=== PATIENT | male | born 1975 | race Caucasian/White ===

== ENCOUNTER 2016-12-15 09:24 | Inpatient (IN) | payer OTHER ==
[~2016-12-15] VITALS: Ht 165.1 cm; Wt 108.5 kg
[~2016-12-15 09:24] MED LIST: AMLO-147 PO; ASPI-700 PO; ATOR80TA75 PO; CARV25TA79 PO; ERGO500037 PO; FURO20TA3 PO; LISI20TA11 PO; NCN500CCR PO; OMEG-135 PO; OXYC-209 PO; POTA8CAP PO; UDMOM PO
[2016-12-15] MEDS ORDERED: ONDANSETRON 4 MG INJ IV STA ×2 (09:40→12:19)
[2016-12-15] MEDS ORDERED: ACETAMINOPHEN 325 MG TAB PO STA (09:40)
[2016-12-15] MEDS ORDERED: CEFEPIME 2GM/50 ML (PMX) 50 ML IVPB STA (09:40)
[2016-12-15] MEDS ORDERED: SODIUM CHLORIDE 0.9% 1L BAG IV* STA (09:40)
[2016-12-15] MEDS ORDERED: VANCOMYCIN 1 GM (PMX) 250 ML IVPB ONE (10:00)
[2016-12-15 10:04] LABS: ADD SCAN DIFF NO
[2016-12-15 10:07] LABS: BASOPHILS % 0.3 % (0.0-2.0); EOSINOPHILS % 0.1 % (0.0-7.0); HEMATOCRIT 37.2 % (42.0-52.0); HEMOGLOBIN 12.9 g/dl (14.0-18.0); LYMPHOCYTES # 0.7 10^3/ul (0.8-2.9); LYMPHOCYTES % 7.1 % (15.0-51.0); MEAN CORPUSCULAR HEMOGLOBIN 27.7 pg (29.0-33.0); MEAN CORPUSCULAR HGB CONC 34.7 g/dl (32.0-37.0); MEAN CORPUSCULAR VOLUME 79.8 fl (82.0-101.0); MEAN PLATELET VOLUME 11.2 fl (7.4-10.4); MONOCYTE # 0.7 10^3/ul (0.3-0.9); MONOCYTES % 7.7 % (0.0-11.0); NEUTROPHIL # 7.7 10^3/ul (1.6-7.5); NEUTROPHILS % 84.5 % (39.0-77.0); PLATELET COUNT 201 10^3/UL (140-415); RED BLOOD COUNT 4.66 10^6/ul (4.70-6.10); RED CELL DISTRIBUTION WIDTH 12.6 % (11.5-14.5); WHITE BLOOD COUNT 9.1 10^3/ul (4.8-10.8)
--- NOTE | 2016-12-15 10:11 | RADRPT ---
PROCEDURE: XR Chest. CLINICAL INDICATION: cough TECHNIQUE: Single frontal view of the chest was obtained COMPARISON: 06/02/16 FINDINGS: The heart and mediastinum are within normal limits. There are patchy left perihilar and left lower lobe infiltrates. There is no pleural effusion or pneumothorax. RPTAT: AA IMPRESSION: Patchy left perihilar and left lower lobe infiltrates. .Cristino Dahl MD, MD Date Time Electronically viewed and signed by .Cristino Dahl MD, on 12/15/2016 10:11 .S/
[2016-12-15 10:17] LABS: ALBUMIN 2.5 g/dl (3.3-4.9)
[2016-12-15 10:20] LABS: ALBUMIN/GLOBULIN RATIO 0.78; BILIRUBIN,INDIRECT 0.6 mg/dl (0-1.1); BILIRUBIN,TOTAL 0.6 mg/dl (0.2-1.3); CALCIUM 7.8 mg/dl (8.4-10.2); CREATININE 1.42 mg/dl (0.61-1.24); TOTAL PROTEIN 5.7 g/dl (6.1-8.1)
[2016-12-15 10:24] LABS: POTASSIUM 2.5 mmol/L (3.5-5.1)
[2016-12-15 10:31] LABS: INR 0.97; PROTIME 12.9 Sec (12.2-14.2)
[2016-12-15 10:32] LABS: PARTIAL THROMBOPLASTIN TIME 48.4 Sec (25.0-35.0)
[2016-12-15 10:38] LABS: TROPONIN-I 0.163 ng/ml (0.00-0.12)
[2016-12-15] MEDS ORDERED: POTASSIUM CHLORIDE (SR) 20 MEQ TAB PO STA (10:38)
[2016-12-15] MEDS ORDERED: ONDANSETRON 4 MG INJ IV PRN ×2 (11:30→13:00)
[2016-12-15] MEDS ORDERED: ASPIRIN 325 MG TAB PO ONE (11:30)
[2016-12-15] MEDS ORDERED: ACETAMINOPHEN 325 MG TAB PO PRN (11:30)
[2016-12-15] MEDS ORDERED: morphine 4 MG/ML VIAL IV STA (12:19)
[2016-12-15] MEDS ORDERED: MAGNESIUM HYDROXIDE 30ML CUP PO PRN (13:00)
[2016-12-15] MEDS ORDERED: NACL 0.9% 3 ML SYG IV SCH (13:00)
[2016-12-15] MEDS ORDERED: HYDROCODONE/APAP (5/325) TAB PO PRN (13:00)
[2016-12-15] MEDS ORDERED: HYPOGLYCEMIA PROTOCOL when Glucose is <70 mg/dL or symptomatic <90 mg/dL. XX ONE (13:00)
[2016-12-15] MEDS ORDERED: NPH, HUMAN INSULIN ISOPHANE 3ML VIAL SC ONE (13:00)
[2016-12-15] MEDS ORDERED: Discontinue Glyburide, Glipizide, and/or Glimepiride prior to starting Insulin XX ONE (13:00)
[2016-12-15] MEDS ORDERED: LORAZEPAM 2 MG INJ IV PRN (13:00)
[2016-12-15] MEDS ORDERED: BISACODYL (EC) 5 MG TAB PO PRN (13:00)
[2016-12-15] MEDS ORDERED: POTASSIUM CHLORIDE 250 ML IVPB ONE (13:00)
[2016-12-15] MEDS ORDERED: DEXTROSE 50% 50 ML SYRINGE IV PRN ×2 (14:00)
[2016-12-15] MEDS ORDERED: GLUCOSE GEL 15 GRAM TUBE PO PRN ×2 (14:00)
[2016-12-15] MEDS ORDERED: GLUCOSE GEL 15 GRAM TUBE BUCCAL PRN (14:00)
[2016-12-15] MEDS ORDERED: GLUCAGON 1 MG INJ IM PRN (14:00)
[2016-12-15 14:01] LABS: IRON 10 ug/dl (35-150)
--- NOTE | 2016-12-15 14:02 | ERA ---
ER Documentation Chief Complaint Date/Time DATE: 12/15/16 TIME: 13:58 Chief Complaint FLU SYMPTOMS WITH COUGH, SOB AND FEVER; PRESSURE ULCERS HPI Patient is a 41-year-old male with hypertension and diabetes who presents with fever. He has had 3 days of fevers. He said that he is not eating. He says " I have a cough I can hear something in my lungs". He has an ulcer on his left foot for 1 month as well. He has had no treatment as of yet. He is vomiting and cannot keep anything down. He has had multiple visits upon review of old medical records. ROS All systems reviewed and are negative except as per history of present illness. Medications Home Meds Active Scripts Potassium Chloride* (Potassium Chloride*) 8 Meq Capsule.er, 8 MEQ PO DAILY, #30 CAP Prov:ROMEO MARTINES MD 06/02/16 Amlodipine Besylate* (Amlodipine Besylate*) 10 Mg Tablet, 10 MG PO DAILY, #30 TAB Prov:ROMEO MARTINES MD 06/02/16 Atorvastatin* (Atorvastatin*) 80 Mg Tablet, 80 MG PO QHS, #30 TAB Prov:ROMEO MARTINES MD 06/02/16 Carvedilol* (Carvedilol*) 25 Mg Tablet, 25 MG PO BID, #60 TAB Prov:ROMEO MARTINES MD 06/02/16 Furosemide* (Furosemide*) 20 Mg Tablet, 20 MG PO BID, #60 TAB Prov:ROMEO MARTINES MD 06/02/16 Lisinopril* (Lisinopril*) 20 Mg Tablet, 40 MG PO DAILY, #30 TAB Prov:ROMEO MARTINES MD 06/02/16 Magnesium Hydroxide* (Calvin' MOM*) 30 Ml Susp, 30 ML PO BID Y for CONSTIPATION, #1 BOT Prov:ROMEO MARTINES MD 06/02/16 Niacin* (Niaspan*) 500 Mg Tablet.sa, 500 MG PO DAILY, #60 Prov:ROMEO MARTINES MD 06/02/16 Oxycodone HCl/Acetaminophen (Percocet 10-325 mg Tablet) 1 Each Tablet, 1 EACH PO Q6, #20 TAB Prov:SOILA REEDER NP 05/23/16 Reported Medications Aspirin (Araceli) 325 Mg Tab, 325 MG PO, TAB 05/27/16 [place]-3 Fatty Acids/Fish Oil (Fish Oil 1,000 mg Capsule) 1 Each Capsule, 1 EACH PO, CAP 05/27/16 Ergocalciferol (Vitamin D2) (VITAMIN D2) 50,000 Unit Capsule, 41591 UNIT PO QWEEK, CAP 05/27/16 Allergies Allergies: Coded Allergies: ibuprofen (Verified Allergy, Mild, 05/27/16) PMhx/Soc History of Surgery: Yes (l big toe amputation) Anesthesia Reaction: No Hx Neurological Disorder: No Hx Respiratory Disorders: No Hx Cardiac Disorders: Yes (high bp) Hx Psychiatric Problems: No Hx Miscellaneous Medical Probl: Yes (DM) Hx Alcohol Use: No Hx Substance Use: No Hx Tobacco Use: Yes (1-2 cigarets a day) Smoking Status: Current every day smoker FmHx Family History: diabetes Physical Exam Vitals Vital Signs Date Time Temp Pulse Resp B/P Pulse Ox O2 Delivery O2 Flow Rate FiO2 12/15/16 12:28 89 18 165/77 92 Nasal Cannula 4.0 12/15/16 09:46 Nasal Cannula 2 12/15/16 09:27 104.1 104 18 243/103 92 Physical Exam Const: Mild distress Head: Atraumatic Eyes: Normal Conjunctiva ENT: Normal External Ears, Nose and Mouth. Neck: Full range of motion..~ No meningismus. Resp: Decreased breath sounds bilaterally Cardio: Regular rate and rhythm, no murmurs Abd: Soft, non tender, non distended. Normal bowel sounds Skin: Chronic lesion to left heel Back: No midline or flank tenderness Ext: No cyanosis, or edema Neur: Awake and alert Psych: Normal Mood and Affect Result Diagram: 12/15/16 0950 12/15/16 0950 Results 24 hrs Laboratory Tests Test 12/15/16 09:50 White Blood Count 9.110^3/ul Red Blood Count 4.6610^6/ul Hemoglobin 12.9g/dl Hematocrit 37.2% Mean Corpuscular Volume 79.8fl Mean Corpuscular Hemoglobin 27.7pg Mean Corpuscular Hemoglobin Concent 34.7g/dl Red Cell Distribution Width 12.6% Platelet Count 37774^3/UL Mean Platelet Volume 11.2fl Neutrophils % 84.5% Lymphocytes % 7.1% Monocytes % 7.7% Eosinophils % 0.1% Basophils % 0.3% Nucleated Red Blood Cells % 0.0/100WBC Neutrophils # 7.710^3/ul Lymphocytes # 0.710^3/ul Monocytes # 0.710^3/ul Eosinophils # 0.010^3/ul Basophils # 0.010^3/ul Nucleated Red Blood Cells # 0.010^3/ul Prothrombin Time 12.9Sec Prothrombin Time Ratio 1.0 INR International Normalized Ratio 0.97 Activated Partial Thromboplast Time 48.4Sec Sodium Level 132mmol/L Potassium Level 2.5mmol/L Chloride Level 94mmol/L Carbon Dioxide Level 31mmol/L Anion Gap 10 Blood Urea Nitrogen 14mg/dl Creatinine 1.42mg/dl Glucose Level 358mg/dl Lactic Acid Level 1.4mmol/L Calcium Level 7.8mg/dl Total Bilirubin 0.6mg/dl Direct Bilirubin 0.00mg/dl Indirect Bilirubin 0.6mg/dl Aspartate Amino Transf (AST/SGOT) 22IU/L Alanine Aminotransferase (ALT/SGPT) 19IU/L Alkaline Phosphatase 110IU/L Troponin I 0.163ng/ml Total Protein 5.7g/dl Albumin 2.5g/dl Globulin 3.20g/dl Albumin/Globulin Ratio 0.78 Current Medications Medications (Trade) Dose Ordered Sig/Kuldeep Route PRN Reason Start Time Stop Time Status Last Admin Dose Admin Sodium Chloride (NS) 3,360 ml BOLUS OVER 2 HOURS STAT IV* 12/15/16 09:40 12/15/16 09:41 DC 12/15/16 10:08 Acetaminophen 650 mg 650 mg ONCE STAT PO 12/15/16 09:40 12/15/16 09:41 DC 12/15/16 10:09 Cefepime HCl 50 ml @ 100 mls/hr ONCE STAT IVPB 12/15/16 09:40 12/15/16 10:09 DC 12/15/16 10:08 Vancomycin HCl (Vancocin) 250 ml @ 125 mls/hr ONCE ONCE IVPB 12/15/16 10:00 12/15/16 11:59 DC 12/15/16 10:55 Ondansetron HCl (Zofran Inj) 4 mg ONCE STAT IV 12/15/16 09:40 12/15/16 09:41 DC 12/15/16 10:08 Potassium Chloride (Klor-Con 20) 40 meq ONCE STAT PO 12/15/16 10:38 12/15/16 10:39 DC 12/15/16 10:55 Aspirin (Aspirin) 325 mg ONCE ONCE PO 12/15/16 11:30 12/15/16 11:31 DC 12/15/16 11:56 Ondansetron HCl (Zofran Inj) 4 mg ER BRIDGE PRN IV NAUSEA AND/OR VOMITING 12/15/16 11:30 12/16/16 11:29 Acetaminophen (Tylenol Tab) 650 mg ER BRIDGE PRN PO MILD PAIN/FEVER 12/15/16 11:30 12/16/16 11:29 Morphine Sulfate (morphine) 4 mg ONCE STAT IV 12/15/16 12:19 12/15/16 12:20 DC 12/15/16 12:27 Ondansetron HCl 4 mg 4 mg ONCE STAT IV 12/15/16 12:19 12/15/16 12:20 DC 12/15/16 12:24 Potassium Chloride (KCl 40 MEQ/250 ML NS) 250 ml @ 62.5 mls/hr ONCE ONCE IVPB 12/15/16 13:00 12/15/16 16:59 Insulin Human NPH (Humulin N) 20 unit ONCE ONCE SC 12/15/16 13:00 12/15/16 13:46 DC Insulin Aspart (Novolog Insulin Pen) NOVOLOG *MILD* ALGORITHM WITH MEALS BEDTIME SC 12/15/16 18:00 Insulin Glargine (Lantus) 33 unit DAILY@20 SC 12/15/16 20:00 Insulin Aspart (Novolog Insulin Pen) 11 unit WITH MEALS SC 12/15/16 18:00 Miscellaneous Information (* Miscellaneous Pharmacy Order) HYPOGLYCEMIA PROTOCOL w... ONCE ONCE XX 12/15/16 13:00 12/15/16 13:39 DC Miscellaneous Information (* Miscellaneous Pharmacy Order) Discontinue Glyburide, Glipizide,... ONCE ONCE XX 12/15/16 13:00 12/15/16 13:39 DC Miscellaneous Information (* Miscellaneous Pharmacy Order) Discontinue all previ... ONCE ONCE XX 12/15/16 13:00 12/15/16 13:40 DC IV Flush (NS 3 ml) 3 ml PER PROTOCOL IV 12/15/16 13:00 Lorazepam (Ativan) 0.5 mg Q6H PRN IV ANXIETY 12/15/16 13:00 Ondansetron HCl (Zofran Inj) 4 mg Q6H PRN IV NAUSEA AND/OR VOMITING 12/15/16 13:00 Acetaminophen (Tylenol Tab) 650 mg Q6H PRN PO PAIN LEVEL 1-3 OR FEVER 12/15/16 13:00 Acetaminophen/ Hydrocodone Bitart ([place] (5/325)) 1 tab Q6H PRN PO PAIN LEVEL 4-6 12/15/16 13:00 Morphine Sulfate (morphine) 2 mg Q4H PRN IV PAIN LEVEL 7-10 12/15/16 13:00 Magnesium Hydroxide (Milk Of Mag) 30 ml DAILY PRN PO CONSTIPATION 12/15/16 13:00 Bisacodyl (Dulcolax) 5 mg DAILY PRN PO CONSTIPATION 12/15/16 13:00 Famotidine (Pepcid) 20 mg Q12 PO 12/15/16 21:00 Enoxaparin Sodium (Lovenox) 40 mg DAILY SC 12/16/16 09:00 12/16/16 09:00 DC Hydralazine HCl (Apresoline) 10 mg Q6H PRN IV SBP>160 12/15/16 13:00 Amlodipine Besylate (Norvasc) 10 mg DAILY PO 12/16/16 09:00 Aspirin (Aspirin) 325 mg DAILY PO 12/16/16 09:00 Atorvastatin Calcium (Lipitor) 80 mg QHS PO 12/15/16 21:00 Carvedilol (Coreg) 25 mg BID PO 12/15/16 21:00 Furosemide (Lasix) 20 mg BID PO 12/15/16 21:00 12/15/16 21:00 DC Lisinopril (Zestril) 40 mg DAILY PO 12/16/16 09:00 12/16/16 09:00 DC Levalbuterol 0.63 mg 0.63 mg Q6H RESP THERAPY HHN 12/15/16 14:00 Ceftriaxone Sodium 50 ml @ 100 mls/hr Q24H IVPB 12/15/16 15:00 Azithromycin (Zithromax 500mg/ NS (Pmx)) 250 ml @ 250 mls/hr Q24H IVPB 12/15/16 14:00 Heparin Sodium (Porcine) (Heparin (5000 Units/0.5 ml)) 5,000 unit BID SC 12/15/16 21:00 Miscellaneous Information 1 ea NOTE XX 12/15/16 14:00 Glucose (Glutose) 15 gm Q15M PRN PO DECREASED GLUCOSE 12/15/16 14:00 Glucose (Glutose) 22.5 gm Q15M PRN PO DECREASED GLUCOSE 12/15/16 14:00 Dextrose (D50w Syringe) 25 ml Q15M PRN IV DECREASED GLUCOSE 12/15/16 14:00 Dextrose (D50w Syringe) 50 ml Q15M PRN IV DECREASED GLUCOSE 12/15/16 14:00 Glucagon (Glucagen) 1 mg Q15M PRN IM DECREASED GLUCOSE 12/15/16 14:00 Glucose (Glutose) 15 gm Q15M PRN BUCCAL DECREASED GLUCOSE 12/15/16 14:00 Procedures/MDM EKG read by me: Rate/Rhythm: Tachycardic rate 102 Intervals: Normal Impression: Tachycardia with mild ST depressions diffusely Chest x-ray shows pneumonia per radiology. Admit MDM: Patient's infectious symptoms have not stabilized and the patient is at risk of rapid decompensation. The patient will be admitted for careful hydration, antibiotic therapy, and infectious source control. Severe Sepsis criteria: Infectious source: Pneumonia End organ damage indicated by: Positive troponin Sepsis Management: Time of recognition of sepsis: 09:50 Within 3 hours of recognition: Blood cultures x 2 before broad-spectrum antibiotics: Yes 30 ml/kg NS bolus Completed Initial lactate 1.4 Repeat lactate pending Time of recognition of septic shock: No septic shock Septic Shock Assessment: Any lactic acid > 4.0 No Persistent hypotension (SBP < 90 or 40 mmHg drop, MAP < 65) despite 30 mL/kg IV fluid bolus No Volume Re-assessment for Septic Shock (post 30 ml/kg bolus): No septic shock at this time Persistent Hypotension Treatment: Comfort care No Central line Not Required Vasopressor started Not required I considered further perfusion assessment with CVP measurement, SCVO2, bedside ultrasound volume assessment, passive leg raise, trial of further fluid bolus. And proceeded with 30 ml/kg fluid bolus of NSS, broad spectrum antibiotics, and admission. The patient also had a positive troponin which is likely related to cardiac strain and not true coronary lesion. The patient was given aspirin. The patient will be admitted to a telemetry bed. The patient also had hypokalemia and was given potassium by mouth. The patient has hyperglycemia but no signs of diabetic ketoacidosis. Accepting Care Team Current data and ongoing care discussed. Admitting Physician: Dr. Perez from the panel team Irrigation Pump Installer(s): None Outstanding Data: Repeat lactic acid and culture results Critical Care: Critical care time 35 minutes excluding all billable procedures Emergent fluid management while maintaining close respiratory support. Provision of immediate and broad-spectrum antibiotic therapy. Simultaneous assessment for possible sources in order to direct targeted therapy. Consideration for invasive and chemical support to prevent cardiopulmonary collapse. Departure Diagnosis: Primary Impression: Severe sepsis Additional Impressions: NSTEMI (non-ST elevated myocardial infarction) Pneumonia Qualified Code: J18.9 - Pneumonia of both lungs due to infectious organism, unspecified part of lung Hyperglycemia Condition: Serious LU GILLILAND MD Dec 15, 2016 14:02
[2016-12-15 14:11] LABS: TOTAL IRON BINDING CAPACITY 267 ug/dl (241-421)
--- NOTE | 2016-12-15 14:12 | HP ---
DATE OF ADMISSION: 12/15/2016 REASON FOR ADMISSION: Subjective fevers, cough, pleuritic chest pain. CONSULTANTS 1. Willy Sanon M.D., Cardiology. HISTORY OF PRESENT ILLNESS: This is a 41-year-old obese male with past medical history of essential hypertension, type 2 diabetes mellitus and dyslipidemia, who came to the emergency room with chief complaint of nonproductive cough, subjective fevers, nausea and vomiting, and pleuritic chest pain that has been going on for the past 3 days. The patient denied any known sick contacts. The patient was also complaining of dyspnea. The patient tried [id number] Tylenol with no improvement in the symptoms. He denied any abdominal pain, diarrhea, dysuria or hematuria. In the emergency room, the patient was noticed to have significant hypokalemia with a potassium of 2.5. He was also noticed to be in renal failure with a creatinine of 1.42 with a normal BUN. The patient's blood glucose was 358. His troponin I was 0.163. In the ER, he was treated with potassium replacement along with a single dose of cefepime and vancomycin, and oral aspirin. PAST MEDICAL HISTORY: 1. Essential hypertension. 2. Dyslipidemia. 3. Type 2 diabetes mellitus. 4. Obesity. PAST SURGICAL HISTORY: Left great toe amputation. HOME MEDICATIONS: 1. Amlodipine 10 mg p.o. daily. 2. Atorvastatin 80 mg p.o. at bedtime. 3. Coreg 25 mg p.o. b.i.d. 4. Lisinopril 40 mg p.o. daily. 5. Niacin 500 mg p.o. daily. 6. [place]-3 fatty acids 1000 mg p.o. daily. 7. Aspirin 325 mg p.o. daily. 8. Percocet 10/325 one tablet p.o. q.6 hours p.r.n. pain. 9. Lasix 20 mg p.o. b.i.d. 10. Potassium chloride 8 mEq p.o. daily. 11. Vitamin D2 50,000 units p.o. every week. ALLERGIES: IBUPROFEN. SOCIAL HISTORY: The patient lives at home. Denies any recent use of tobacco, alcohol or illicit drugs. REVIEW OF SYSTEMS: A 12-point review of systems was made and review of systems was negative other than what is mentioned in the history of present illness. PHYSICAL EXAMINATION: VITAL SIGNS: Temperature 104.1, pulse rate 89, respiratory rate 18, blood pressure 165/77, oxygen saturation 92% on low-flow O2. GENERAL: This is a morbidly obese male lying in bed in no apparent distress. HEENT: Head normocephalic and atraumatic. Eyes: Anicteric sclerae. Conjunctivae clear. ENT: Nasal septum is midline. Oral mucosa is dry. NECK: Short with increased neck circumference. RESPIRATORY: Bilaterally diminished breath sounds. A few rhonchi heard, especially on the left side posteriorly. No use of accessory muscles of respiration. CARDIAC: Regular rate and rhythm. S1, S2 heard. ABDOMEN: Soft, nontender and nondistended. Bowel sounds positive in all 4 quadrants. GENITOURINARY: Deferred. EXTREMITIES: No cyanosis, no clubbing, no edema. Pedal pulses palpable. Status post left great toe amputation. NEUROLOGIC: The patient is awake, alert and oriented. Cranial nerves are grossly intact. LABORATORY AND DIAGNOSTIC DATA: WBC 9.1, hemoglobin 12.9, hematocrit 37.2, platelet count 201. Sodium 132, potassium 2.5, chloride 94, carbon dioxide 31, anion gap 10, BUN 14, creatinine 1.42, glucose 358, calcium 7.8. Troponin I is 0.163. PT 12.9, INR 0.978, PTT 48.4. Chest x-ray: Patchy left perihilar and left lower lobe infiltrates. 12-lead EKG: Sinus tachycardia. IMPRESSION: This is a 41-year-old male with multiple comorbidities, who came to the emergency room with chief complaint of fever, pleuritic chest pain and dyspnea who was found to evidence of community-acquired pneumonia, who will be admitted here for further treatment and evaluation. ASSESSMENT AND PLAN: 1. Sepsis secondary to underlying community-acquired pneumonia. The patient will be started on appropriate antibiotics. Pancultures will be obtained including influenza A and B screen. The patient has no evidence of any septic shock. 2. Elevated troponin. Most probably a type 2 event from underlying sepsis and underlying acute kidney injury. Nevertheless, the patient has multiple comorbidities including morbid obesity, dyslipidemia, diabetes, and essential hypertension. Hence, the patient will be ruled out for any underlying acute coronary syndrome. A 2D echocardiogram will be obtained. A cardiology consult will be obtained. The patient will be maintained on aspirin. 3. Acute kidney injury. The patient had a normal creatinine of 1.00 on 2015. The patient's current acute kidney injury could be most probably secondary to dehydration from persistent vomiting. The patient's nephrotoxic drugs will be held at this time. 4. Acute respiratory failure. Hypoxic. This could be secondary to underlying pneumonia. The patient will be provided with supplemental O2 and inhaled bronchodilators. 5. Type 2 diabetes mellitus. Uncontrolled. The patient will be started on sliding scale insulin along with basal insulin and premeal insulin. Hemoglobin A1c will be obtained to evaluate the blood glucose control over the past few weeks. 6. Dyslipidemia. The patient's statins will be resumed. A fasting lipid panel will be obtained. 7. Essential hypertension. The patient will be started on routine antihypertensives. The patient will also be started on p.r.n. antihypertensives for any systolic blood pressure readings greater than 160 mmHg. 8. Hypokalemia. Most probably secondary to persistent nausea and vomiting. The patient's potassium will be repleted. 9. Microcytic hypochromic anemia. Etiology unclear. An iron panel will be obtained. The patient's hemoglobin and hematocrit will be monitored closely. Plan: The patient will be admitted to inpatient telemetry floor. The patient will be started on a carbohydrate controlled, low cholesterol diet. The patient will be started on deep venous thrombosis prophylaxis and gastrointestinal prophylaxis. The patient will remain a FULL CODE. Activities will be as tolerated. The rest of the patient's management will be based on the clinical course, the results of diagnostic studies, and inputs from consultants. Based on the patient's clinical presentation, he most probably requires at least 2 midnights' stay for further management and evaluation of his clinical presentation. The case and management of this patient was fully discussed with Dr. Reed. GEORGI REED MD, AM/SUNDEEP Conf#: [id number] DID#: [id number] VERONICA
[2016-12-15 14:33] LABS: THYROID STIMULATING HORMONE 0.604 MIU/L (0.465-4.680)
[2016-12-15] MEDS: LEVALBUTEROL (NEB) 0.63 MG/3 ML AMP HHN SCH ×2 (14:36→20:00)
[2016-12-15] MEDS: AZITHROMYCIN 500MG/NS (PMX) 250 ML IVPB SCH (14:47)
[2016-12-15] MEDS: CEFTRIAXONE 1 GM/50 ML (PMX) 50 ML IVPB SCH (14:47)
[2016-12-15] MEDS ORDERED: ACETAMINOPHEN 500 MG TAB PO STA ×2 (16:38→23:04)
[2016-12-15] MEDS ORDERED: ASPI-664 PO (16:42)
[2016-12-15] MEDS ORDERED: GABA-526 PO (16:42)
[2016-12-15] MEDS ORDERED: POTA20TA96 PO (16:42)
[2016-12-15] MEDS ORDERED: CHOL100062 PO (16:43)
[2016-12-15] MEDS ORDERED: LISI40TA9 PO (16:43)
--- NOTE | 2016-12-15 18:16 | RADRPT ---
Echocardiogram Report Patient Name: MERVAT BYRD Gender: Male Date: 1975 Study Date: 15-Dec-2016 Service Porter: JUNO SORENSEN Location: ED 12 Ref. Physician: GEORGI CORBETT Quality: Adequate Procedures: Transthoracic echocardiogram with complete 2D, M-Mode, and doppler examination. Indications: Evaluate Left Ventricular function. 2D/M Mode Doppler Measurement Value Normal Ranges Measurement Value Normal Ranges LVIDd 2D 4.9 3.5 - 5.6 cm AV Peak Nando 1.5 m/sec LVIDs 2D 2.8 2.1 - 4.1 cm AV Peak PG 8.0 mmHg FS 2D 42.5 % LVOT Peak Nando 1.1 m/sec LVPWd 2D 1.1 0.6 - 1.1 cm LVOT Peak PG 5.0 mmHg IVSd 2D 1.1 0.6 - 1.1 cm MV E Peak Nando 0.8 m/sec IVS/LVPW 2D 1.0 MV A Peak Nando 0.6 m/sec AoR Diam 2D 2.9 2.0 - 3.7 cm MV E/A 1.4 LA/Ao 2D 1 0 - 1 MV Decel Time 151 msec EDV 2D 116.0 cm3 MV E/A 1.4 ESV 2D 22.0 cm3 TR Peak Nando 2.2 m/sec LA Dimen 2D 3.5 2.3 - 4.0 cm TR Peak PG 20.0 mmHg RVSP 23.0 mmHg Findings Left Ventricle: Normal left ventricular systolic function. Normal left ventricular cavity size. Mild concentric left ventricular hypertrophy. Ejection fraction is visually estimated at 55 %. Tissue Doppler/Mitral Doppler indices are consistent with impaired relaxation (Stage I diastolic dysfunction). Right Ventricle: Normal right ventricular size. Normal right ventricular systolic function. Left Atrium: The left atrium is normal in size. Right Atrium: The right atrium is normal in size. Mitral Valve: Mitral valve is not well visualized. Mild mitral valve regurgitation. Aortic Valve: Normal appearance of the aortic valve. No significant aortic stenosis or insufficiency. Tricuspid Valve: Normal appearance of the tricuspid valve. Normal right ventricular systolic pressure. Estimated peak PA systolic pressure 23 mmHg. There is trace to mild tricuspid regurgitation. Pulmonic Valve: Pulmonic valve not well visualized. Pericardium: Trivial pericardial effusion. Aorta: Normal aortic root. IVC: Normal size and normal respiratory collapse consistent with normal right atrial pressure. Conclusions 1.Normal left ventricular systolic function. Normal left ventricular cavity size. Mild concentric left ventricular hypertrophy. Ejection fraction is visually estimated at 55 %. Tissue Doppler/Mitral Doppler indices are consistent with impaired relaxation (Stage I diastolic dysfunction). 2.Mitral valve is not well visualized. Mild mitral valve regurgitation. 3.Normal appearance of the tricuspid valve. Normal right ventricular systolic pressure. Estimated peak PA systolic pressure 23 mmHg. There is trace to mild tricuspid regurgitation. 4.Trivial pericardial effusion. Electronically Signed By: Willy Sanon 15-Dec-2016 18:15:01 -0700 Patient Name: MERVAT BYRD Study Date: 15-Dec-2016 [id number]
--- NOTE | 2016-12-15 18:33 | CONS ---
DATE OF ADMISSION: 12/15/2016 DATE OF CONSULTATION: 12/15/2016 CARDIOLOGY CONSULTATION REASON FOR CONSULTATION: Positive troponin, assess significance, assess for acute coronary syndrome . REQUESTING PHYSICIAN: Dr. Perez from the hospitalist service and London Ramos from the hospitalist [facility]. HISTORY OF PRESENT ILLNESS: Mr. Wilson is a 41-year-old male with history of hypertension, diabetes mellitus, and dyslipidemia who initially presented with complaints of cough, fever, nausea, vomitin g, chest pain with cough occurring for approximately 3 days. Additionally, the patient has been hav ing dyspnea on exertion and shortness of breath at rest and worsening lower extremity edema. Upon a rrival in the emergency department, temperature of 104.1, blood pressure 243/103, pulse 104, respira tory rate 18, saturating 92%. Patient's labs revealed a white count of 9.1, hemoglobin 12.9, platel et count of 201. Sodium 132, potassium 2.5, creatinine of 1.42. Troponin positive at 0.163. Lacti c acid 1.4. TSH of 0.604. INR of 0.97. The patient underwent a chest x-ray revealing patchy left hilar and left lower lobe infiltrates. The patient's electrocardiogram revealed sinus tachycardia w ith a rate of 102, normal axis, normal intervals, with inferior and lateral ST depressions. The pat ient subsequently has been treated with potassium repletion, insulin, aspirin, Zofran, morphine, van comycin, cefepime, and Zofran. The patient continues to have any cough and shortness of breath at this time. PAST MEDICAL HISTORY: As above in HPI. MEDICATIONS CURRENTLY IN HOSPITAL: 1. Norvasc 10 mg daily. 2. Aspirin 325 mg daily. 3. Pepcid 20 q. 12. 4. Lipitor 80 mg at bedtime. 5. Carvedilol 25 mg p.o. b.i.d. 6. Heparin 5000 subq b.i.d. 7. Lantus insulin sliding scale. 8. Ceftriaxone IV daily. 9. Xopenex. 10. Azithromycin. 11. Ativan p.r.n. 12. Zofran p.r.n. 13. [place] p.r.n. 14. Morphine p.r.n. 15. Hydralazine p.r.n. 16. Tylenol p.r.n. ALLERGIES: IBUPROFEN. SOCIAL HISTORY: No tobacco, social ETOH, no illicit drug use. FAMILY HISTORY: No history of sudden cardiac or early CAD. REVIEW OF SYSTEMS: As above in HPI. CONSTITUTIONAL: No fevers, chills. PULMONARY: Shortness of breath and cough. CARDIOVASCULAR: Positive troponin. GASTROINTESTINAL: No vomiting. GENITOURINARY: No hematuria. MUSCULOSKELETAL: Degenerative joint disease. PSYCHIATRIC: The patient denies depression. NEUROLOGIC: No documented history of CVA. PHYSICAL EXAMINATION VITAL SIGNS: Last documented temperature 104.1. I doubt that this is still 104.1. There is no oth er temperature documented. Blood pressure 181/96, pulse 105, respiratory rate 28, saturating 98% on 2 liters. GENERAL: The patient is alert, awake, complaining of cough, shortness of breath. NECK: JVP approximately 9 cm of water. CHEST: Decreased breath sounds at bases bilaterally. HEART: Regular rate and rhythm. Normal S1, S2, I/ systolic murmur, nondisplaced PMI. ABDOMEN: Positive bowel sounds, soft. EXTREMITIES: 1+ edema, 1+ pulses bilaterally, posterior tibial. LABORATORY DATA: As above in HPI. No further labs for my review at this time. IMAGING STUDIES: As above in HPI. No further imaging studies for my review at this time. ECG: As above in HPI. No further electrocardiograms for my review at this time. IMPRESSION: 1. Positive troponin, assess significance. 2. Abnormal electrocardiogram with ST depressions with tachycardia and positive troponin, likely in dicative of coronary artery disease. 3. Hypertension, uncontrolled. 4. Dyslipidemia. 5. Diabetes mellitus. 6. Fevers to 104 documented here in the hospital. 7. Renal failure. 8. Lower extremity edema, assess for congestive heart failure. 9. Hypokalemia. 10. Nausea and vomiting. 11. Chest pain with cough. RECOMMENDATIONS: 1. At this time, would admit patient to telemetry monitoring to follow rhythm and rate control clos beatriz. 2. Would continue the patient's Norvasc for control of blood pressure and carvedilol, and we will u se IV push p.r.n. hydralazine at this time for uncontrolled systolic blood pressures and probable ne ed to start standing p.o. hydralazine. 3. Patient's DILAN inhibitor has been held in the setting of renal failure. 4. Continue the patient's current statin and check a fasting lipid panel and adjust it accordingly. 5. Would continue the patient's antibiotics and follow up all culture data and would check flu swab s as swell. 6. The patient is status post prior 2D echo May 2016 revealing a preserved EF at that time 60%. Given the patient's positive troponins and lower extremity edema worsening, would check a repeat e chocardiogram for reassessment of ejection fraction and would additionally follow up any possible on going lower extremity wound infection. Thank you for allowing me to take part in the care of this patient. I will continue to follow along very closely with you with further recommendations to be made as the patient progresses through his inpatient hospital clinical course. Dictated By: VI SALGADO/SUNDEEP Conf#: [id number] DID#: [id number] CC: LONDON RAMOS SUPERVISOR [employer];*EndCC*
[2016-12-15] MEDS: INSULIN ASPART [NOVOLOG] 3 ML PEN SC SCH ×3 (19:07→22:06)
--- NOTE | 2016-12-15 19:15 | RADRPT ---
PROCEDURE: US Lower extremity Venous. CLINICAL INDICATION: Bilateral lower extremity swelling TECHNIQUE: Multiple sonographic images of the bilateral lower extremity deep venous system was obt ained utilizing grayscale, color-flow, compressive sonography and doppler imaging with augmentation. The images were reviewed on a PACS workstation. COMPARISON: None. FINDINGS: There is normal compressibility and flow within the bilateral common femoral, femoral , posterior ti bial and popliteal veins. RPTAT: AA IMPRESSION: No sonographic evidence for deep venous thrombosis. .Cristino Dahl MD, MD Date Time Electronically viewed and signed by .Cristino Dahl MD, on 12/15/2016 19:15 .S/
[2016-12-15 20:12] LABS: TROPONIN-I 0.129 ng/ml (0.00-0.12)
[2016-12-15 20:18] LABS: CK-MB 0.32 ng/ml (0.0-2.4)
[2016-12-15] MEDS ORDERED: FUROSEMIDE 20 MG TAB PO SCH (21:00)
[2016-12-15] MEDS: ATORVASTATIN 80 MG TAB PO SCH (22:07)
[2016-12-15] MEDS: FAMOTIDINE 20 MG TAB PO SCH (22:08)
[2016-12-15] MEDS: HEPARIN 5,000 UNIT/0.5 ML VIAL SC SCH (22:09)
[2016-12-15 22:32] LABS: CK-MB 0.32 ng/ml (0.0-2.4)
[2016-12-15 22:36] LABS: TROPONIN-I 0.132 ng/ml (0.00-0.12)
[2016-12-15] MEDS: INSULIN GLARGINE [LANtus] 3 ML PEN SC SCH (22:46)
[2016-12-16] VITALS (17 sets, daily range): BP systolic 105–141; BP diastolic 61–78; PULSE 75–84; RESP 11–28; TEMP 100.4; Ht 165.1 cm; Wt 108.5 kg
[2016-12-16] MEDS ORDERED: POTASSIUM CHLORIDE 250 ML IVPB ONE ×2 (00:30)
[2016-12-16] MEDS: LEVALBUTEROL (NEB) 0.63 MG/3 ML AMP HHN SCH ×4 (01:17→19:56)
[2016-12-16] MEDS: ACETAMINOPHEN 325 MG TAB PO PRN ×2 (03:39→16:51)
[2016-12-16 06:27] LABS: ADD SCAN DIFF NO
[2016-12-16 06:33] LABS: BASOPHILS % 0.3 % (0.0-2.0); HEMOGLOBIN 9.7 g/dl (14.0-18.0); LYMPHOCYTES # 0.7 10^3/ul (0.8-2.9); LYMPHOCYTES % 10.2 % (15.0-51.0); MEAN CORPUSCULAR HEMOGLOBIN 27.8 pg (29.0-33.0); MEAN CORPUSCULAR HGB CONC 33.4 g/dl (32.0-37.0); MEAN CORPUSCULAR VOLUME 83.1 fl (82.0-101.0); MEAN PLATELET VOLUME 12.1 fl (7.4-10.4); MONOCYTE # 0.4 10^3/ul (0.3-0.9); MONOCYTES % 5.4 % (0.0-11.0); NEUTROPHIL # 6.1 10^3/ul (1.6-7.5); NEUTROPHILS % 83.6 % (39.0-77.0); PLATELET COUNT 152 10^3/UL (140-415); RED BLOOD COUNT 3.49 10^6/ul (4.70-6.10); WHITE BLOOD COUNT 7.3 10^3/ul (4.8-10.8)
[2016-12-16 06:53] LABS: CHOL/HDL RATIO 5.4 RATIO; MAGNESIUM 1.8 mg/dl (1.7-2.5); PHOSPHORUS 3.7 mg/dl (2.5-4.9)
[2016-12-16 07:07] LABS: CK-MB 0.41 ng/ml (0.0-2.4); TROPONIN-I 0.146 ng/ml (0.00-0.12)
[2016-12-16 07:41] LABS: CALCIUM 6.8 mg/dl (8.4-10.2); CREATININE 1.81 mg/dl (0.61-1.24); POTASSIUM 3.3 mmol/L (3.5-5.1)
[2016-12-16] MEDS: INSULIN ASPART [NOVOLOG] 3 ML PEN SC SCH ×7 (08:26→21:00)
[2016-12-16] MEDS ORDERED: ENOXAPARIN 40 MG/0.4 ML SYG SC SCH (09:00)
[2016-12-16] MEDS ORDERED: LISINOPRIL 20 MG TAB PO SCH (09:00)
[2016-12-16] MEDS ORDERED: FUROSEMIDE 20 MG INJ IV SCH (09:00)
[2016-12-16] MEDS: CHOLECALCIFEROL 1,000 UNIT TAB PO SCH (09:39)
[2016-12-16] MEDS: ASPIRIN 325 MG TAB PO SCH (09:39)
[2016-12-16] MEDS: FAMOTIDINE 20 MG TAB PO SCH ×2 (09:40→22:12)
[2016-12-16] MEDS: AMLODIPINE 10 MG TAB PO SCH (09:40)
[2016-12-16] MEDS: HEPARIN 5,000 UNIT/0.5 ML VIAL SC SCH ×2 (09:41→22:13)
--- NOTE | 2016-12-16 14:53 | RADRPT ---
Vent Rate: 82 bpm RR Interval: 0 msec DC Interval: 140 msec QRS Duration: 90 msec QT Interval: 374 msec QTC Interval: 436 msec P-R-T [place]: 51 - 63 - 0 degrees Normal sinus rhythm ST amp; T wave abnormality, consider inferolateral ischemia Abnormal ECG No previous tracing available for comparison Electronically Signed By: Jordy Gonzales [id number]
--- NOTE | 2016-12-16 15:19 | PN ---
Date/Time of Note Date/Time of Note DATE: 12/16/16 TIME: 15:18 Assessment/Plan VTE Prophylaxis VTE Prophylaxis Intervention: heparin Lines/Catheters IV [facility] Urinary Cath still in place: No Assessment/Plan Chief Complaint/Hosp Course 1. Sepsis secondary to underlying community-acquired pneumonia. The patient on appropriate antibiotics. Pancultures negative so far. The patient to be followed by infectious disease. 2. Acute hypoxic respiratory failure. Most probably secondary to underlying pneumonia. Continue inhaled bronchodilators and supplemental oxygen. We will involve pulmonology on the case. 3. Elevated troponins. Most probably a type 2 event from underlying sepsis and underlying acute kidney injury. Cardiology following. 4. Acute kidney injury. The patient had a normal creatinine of 1.00 on 2015. The patient's current acute kidney injury could be most probably secondary to dehydration from persistent vomiting. The patient's nephrotoxic drugs will be held at this time. Will involve nephrology. 5. Type 2 diabetes mellitus. Uncontrolled. A1C is high (send out). The patient will be maintained on sliding scale insulin along with basal insulin and premeal insulin. 6. Dyslipidemia. Continue statins. 7. Essential hypertension. Continue routine antihypertensives and p.r.n. antihypertensives for any systolic blood pressure readings greater than 160 mmHg. 8. Hypokalemia. Most probably secondary to persistent nausea and vomiting. The patient's potassium will be repleted. 9. Microcytic, hypochromic anemia. Etiology unclear. Iron panel showing iron deficiency. Will start the patient on iron supplements. 10. Morbid obesity. BMI of 39.8 kg/m. Weight reduction advised. 11. Fluids, electrolytes, and nutrition. Carbohydrate controlled, low- cholesterol diet. 12. DVT prophylaxis. Subcutaneous heparin. 13. Gastrointestinal prophylaxis. Histamine 2 receptor blockers. 14. Plan. Continue antibiotics. Will obtain an ABG to evaluate the extent of hypoxia and evaluate for any underlying CO2 retention. Obtain a CT scan of the chest without contrast. Obtain ID, pulmonology, and nephrology consults. Case discussed with Dr. Perez. Problems: Subjective 24 Hr Interval Summary Free Text/Dictation The patient continues to have fevers. On 100% NRB. Exam/Review of Systems Vital Signs Vitals Vital Signs Date Time Temp Pulse Resp B/P Pulse Ox O2 Delivery O2 Flow Rate FiO2 12/16/16 14:20 78 22 85 Venti Mask 15.0 50 12/16/16 12:18 99.6 125/61 Intake and Output 12/15/16 12/15/16 12/16/16 15:00 23:00 07:00 Intake Total 800 ml Balance 800 ml Exam GENERAL: This is a morbidly obese male lying in bed in moderate respiratory distress. HEENT: Head normocephalic and atraumatic. Eyes: Anicteric sclerae. Conjunctivae clear. ENT: Nasal septum is midline. Oral mucosa is dry. NECK: Short with increased neck circumference. RESPIRATORY: Bilaterally diminished breath sounds. A few rhonchi heard, especially on the left side posteriorly. Expiratory wheezing. Use of accessory muscles of respiration. CARDIAC: Regular rate and rhythm. S1, S2 heard. ABDOMEN: Soft, nontender and nondistended. Bowel sounds positive in all 4 quadrants. GENITOURINARY: Deferred. EXTREMITIES: No cyanosis, no clubbing. B/L LE edema. Pedal pulses palpable. Status post left great toe amputation. NEUROLOGIC: The patient is awake, alert and oriented. Cranial nerves are grossly intact. Results Result Diagram: 12/16/16 0540 12/16/16 0540 Results 24 hrs Laboratory Tests Test 12/15/16 18:34 12/15/16 19:15 12/15/16 21:57 12/15/16 22:03 Bedside Glucose 213 90 Potassium Level 3.0 L Lactic Acid Level 1.3 Creatine Kinase 284 H 311 H Creatine Kinase Index 0.1 0.1 Creatinine Kinase MB (Mass) 0.32 0.32 Troponin I 0.129 *H 0.132 *H Test 12/16/16 05:40 12/16/16 07:55 12/16/16 11:52 White Blood Count 7.3 Red Blood Count 3.49 #L Hemoglobin 9.7 #L Hematocrit 29.0 #L Mean Corpuscular Volume 83.1 Mean Corpuscular Hemoglobin 27.8 L Mean Corpuscular Hemoglobin Concent 33.4 Red Cell Distribution Width 13.0 Platelet Count 152 # Mean Platelet Volume 12.1 H Neutrophils % 83.6 H Lymphocytes % 10.2 L Monocytes % 5.4 Eosinophils % 0.0 Basophils % 0.3 Nucleated Red Blood Cells % 0.0 Neutrophils # 6.1 Lymphocytes # 0.7 L Monocytes # 0.4 Eosinophils # 0.0 Basophils # 0.0 Nucleated Red Blood Cells # 0.0 Sodium Level 131 L Potassium Level 3.3 L Chloride Level 102 Carbon Dioxide Level 29 Anion Gap 3 L Blood Urea Nitrogen 19 Creatinine 1.81 H Glucose Level 149 # Lactic Acid Level 0.9 Calcium Level 6.8 L Phosphorus Level 3.7 Magnesium Level 1.8 Creatine Kinase 377 H Creatine Kinase Index 0.1 Creatinine Kinase MB (Mass) 0.41 Troponin I 0.146 *H Triglycerides Level 171 H Cholesterol Level 152 LDL Cholesterol, Calculated 90 HDL Cholesterol 28 Cholesterol/HDL Ratio 5.4 Bedside Glucose 149 133 Medications Medications Current Medications Insulin Glargine (Lantus) 33 unit DAILY@20 SC ; Start 12/15/16 at 20:00 Lorazepam (Ativan) 0.5 mg Q6H PRN IV ANXIETY; Start 12/15/16 at 13:00 Ondansetron HCl (Zofran Inj) 4 mg Q6H PRN IV NAUSEA AND/OR VOMITING; Start at 13:00 Acetaminophen (Tylenol Tab) 650 mg Q6H PRN PO PAIN LEVEL 1-3 OR FEVER Last administered on 12/16/16 03:39; Admin Dose 650 MG; Start 12/15/16 at 13:00 Acetaminophen/ Hydrocodone Bitart ([place] (5/325)) 1 tab Q6H PRN PO PAIN LEVEL 4 -6 Last administered on 12/15/16 22:08; Admin Dose 1 TAB; Start 12/15/16 at 13: 00 Morphine Sulfate (morphine) 2 mg Q4H PRN IV PAIN LEVEL 7-10; Start 12/15/16 at 13:00 Magnesium Hydroxide (Milk Of Mag) 30 ml DAILY PRN PO CONSTIPATION; Start at 13:00 Bisacodyl (Dulcolax) 5 mg DAILY PRN PO CONSTIPATION; Start 12/15/16 at 13:00 Famotidine (Pepcid) 20 mg Q12 PO Last administered on 12/16/16 09:40; Admin Dose 20 MG; Start 12/15/16 at 21:00 Hydralazine HCl (Apresoline) 10 mg Q6H PRN IV SBP>160; Start 12/15/16 at 13:00 Amlodipine Besylate (Norvasc) 10 mg DAILY PO Last administered on 12/16/16 09: 40; Admin Dose 10 MG; Start 12/16/16 at 09:00 Aspirin (Aspirin) 325 mg DAILY PO Last administered on 12/16/16 09:39; Admin Dose 325 MG; Start 12/16/16 at 09:00 Atorvastatin Calcium (Lipitor) 80 mg QHS PO Last administered on 12/15/16 22: 07; Admin Dose 80 MG; Start 12/15/16 at 21:00 Carvedilol 25 mg 25 mg BID PO Last administered on 12/16/16 09:40; Admin Dose 25 MG; Start 12/15/16 at 21:00 Ceftriaxone Sodium 50 ml @ 100 mls/hr Q24H IVPB Last administered on 14:47; Admin Dose 100 MLS/HR; Start 12/15/16 at 15:00 Azithromycin (Zithromax 500mg/ NS (Pmx)) 250 ml @ 250 mls/hr Q24H IVPB Last administered on 12/15/16 14:47; Admin Dose 250 MLS/HR; Start 12/15/16 at 14:00 Heparin Sodium (Porcine) (Heparin (5000 Units/0.5 ml)) 5,000 unit BID SC Last administered on 12/16/16 09:41; Admin Dose 5,000 UNIT; Start 12/15/16 at 21:00 Miscellaneous Information 1 ea NOTE XX ; Start 12/15/16 at 14:00 Glucose (Glutose) 15 gm Q15M PRN PO DECREASED GLUCOSE; Start 12/15/16 at 14:00 Glucose (Glutose) 22.5 gm Q15M PRN PO DECREASED GLUCOSE; Start 12/15/16 at 14: 00 Dextrose (D50w Syringe) 25 ml Q15M PRN IV DECREASED GLUCOSE; Start 12/15/16 at 14:00 Dextrose (D50w Syringe) 50 ml Q15M PRN IV DECREASED GLUCOSE; Start 12/15/16 at 14:00 Glucagon (Glucagen) 1 mg Q15M PRN IM DECREASED GLUCOSE; Start 12/15/16 at 14:00 Glucose (Glutose) 15 gm Q15M PRN BUCCAL DECREASED GLUCOSE; Start 12/15/16 at 14 :00 Hydralazine HCl (Apresoline) 25 mg Q8 PO Last administered on 4/22/17at 05:27; Admin Dose 25 MG; Start 12/15/16 at 22:00 Furosemide (Lasix) 20 mg DAILY IV Last administered on 12/16/16 09:40; Admin Dose 20 MG; Start 12/16/16 at 09:00 Cholecalciferol (Vitamin D) 1,000 unit DAILY PO Last administered on 12/16/16 09:39; Admin Dose 1,000 UNIT; Start 12/16/16 at 09:00 Potassium Chloride (Klor-Con 10) 30 meq ONCE ONCE PO ; Start 12/16/16 at 15:30 ; Stop 12/16/16 at 15:31; Status UNV GEORGI CORBETT [employer] TECHNICIAN Dec 16, 2016 15:19
[2016-12-16] MEDS ORDERED: POTASSIUM CHLORIDE (SR) 10 MEQ TAB PO ONE (15:30)
--- NOTE | 2016-12-16 15:45 | CONS ---
Date/Time of Note Date/Time of Note DATE: 12/16/16 TIME: 15:43 Assessment/Plan Assessment/Plan Additional Assessment/Plan 1. Positive troponin, assess significance - no CP now, doubt ongoing ischemia now. 2. Abnormal electrocardiogram with ST depressions with tachycardia and positive troponin, likely indicative of coronary artery disease. 3. Hypertension - better now, con't to keep euvolemic. 4. Dyslipidemia. 5. Diabetes mellitus - on meds. 6. Fevers to 104 documented here in the hospital- on anti-Bx now, not febrile now. 7. Renal failure. 8. Lower extremity edema, assess for congestive heart failure- con't to keep euvolemic. 9. Hypokalemia. 10. Nausea and vomiting. 11. Chest pain with cough. Consultation Date/Type/Reason Admit Date/Time Dec 15, 2016 at 11:20 Initial Consult Date 24 HR Interval Summary Free Text/Dictation No acute events - BP stable - con't medical optimization. ROS: No fever, no chills, no nausea, no vomiting, no diarrhea/constipation No recent weight changes No chest pain, no PND, no orthopnea No dizziness, blurred vision No thirst, no heat or cold intolerance Exam/Review of Systems Vital Signs Vitals Vital Signs Date Time Temp Pulse Resp B/P Pulse Ox O2 Delivery O2 Flow Rate FiO2 12/16/16 14:20 78 22 85 Venti Mask 15.0 50 12/16/16 12:18 99.6 125/61 Intake and Output 12/15/16 12/15/16 12/16/16 15:00 23:00 07:00 Intake Total 800 ml Balance 800 ml Exam General: WN/WD/NAD, AOx 2-3 HEENT: Unicetric/atraumatic/EOMI (follow commands) NECK: JVD elevated, no thyromegaly Lymph: no lymphadenopathy HEART: regular with no S3, II/ systolic murmur at apex LUNGS: Coarse sounds ABD: soft, NT, ND, +BS : Intact Neuro: non focal SKIN: chronic changes EXT: trace edema Results Result Diagram: 12/16/16 0540 12/16/16 0540 Results 24 hrs Laboratory Tests Test 12/15/16 18:34 12/15/16 19:15 12/15/16 21:57 12/15/16 22:03 Bedside Glucose 213 90 Potassium Level 3.0 L Lactic Acid Level 1.3 Creatine Kinase 284 H 311 H Creatine Kinase Index 0.1 0.1 Creatinine Kinase MB (Mass) 0.32 0.32 Troponin I 0.129 *H 0.132 *H Test 12/16/16 05:40 12/16/16 07:55 12/16/16 11:52 White Blood Count 7.3 Red Blood Count 3.49 #L Hemoglobin 9.7 #L Hematocrit 29.0 #L Mean Corpuscular Volume 83.1 Mean Corpuscular Hemoglobin 27.8 L Mean Corpuscular Hemoglobin Concent 33.4 Red Cell Distribution Width 13.0 Platelet Count 152 # Mean Platelet Volume 12.1 H Neutrophils % 83.6 H Lymphocytes % 10.2 L Monocytes % 5.4 Eosinophils % 0.0 Basophils % 0.3 Nucleated Red Blood Cells % 0.0 Neutrophils # 6.1 Lymphocytes # 0.7 L Monocytes # 0.4 Eosinophils # 0.0 Basophils # 0.0 Nucleated Red Blood Cells # 0.0 Sodium Level 131 L Potassium Level 3.3 L Chloride Level 102 Carbon Dioxide Level 29 Anion Gap 3 L Blood Urea Nitrogen 19 Creatinine 1.81 H Glucose Level 149 # Lactic Acid Level 0.9 Calcium Level 6.8 L Phosphorus Level 3.7 Magnesium Level 1.8 Creatine Kinase 377 H Creatine Kinase Index 0.1 Creatinine Kinase MB (Mass) 0.41 Troponin I 0.146 *H Triglycerides Level 171 H Cholesterol Level 152 LDL Cholesterol, Calculated 90 HDL Cholesterol 28 Cholesterol/HDL Ratio 5.4 Bedside Glucose 149 133 Medications Medications Current Medications Insulin Glargine (Lantus) 33 unit DAILY@20 SC ; Start 12/15/16 at 20:00 Lorazepam (Ativan) 0.5 mg Q6H PRN IV ANXIETY; Start 12/15/16 at 13:00 Ondansetron HCl (Zofran Inj) 4 mg Q6H PRN IV NAUSEA AND/OR VOMITING; Start at 13:00 Acetaminophen (Tylenol Tab) 650 mg Q6H PRN PO PAIN LEVEL 1-3 OR FEVER Last administered on 12/16/16 03:39; Admin Dose 650 MG; Start 12/15/16 at 13:00 Acetaminophen/ Hydrocodone Bitart ([place] (5/325)) 1 tab Q6H PRN PO PAIN LEVEL 4 -6 Last administered on 12/15/16 22:08; Admin Dose 1 TAB; Start 12/15/16 at 13: 00 Morphine Sulfate (morphine) 2 mg Q4H PRN IV PAIN LEVEL 7-10; Start 12/15/16 at 13:00 Magnesium Hydroxide (Milk Of Mag) 30 ml DAILY PRN PO CONSTIPATION; Start at 13:00 Bisacodyl (Dulcolax) 5 mg DAILY PRN PO CONSTIPATION; Start 12/15/16 at 13:00 Famotidine (Pepcid) 20 mg Q12 PO Last administered on 12/16/16 09:40; Admin Dose 20 MG; Start 12/15/16 at 21:00 Hydralazine HCl (Apresoline) 10 mg Q6H PRN IV SBP>160; Start 12/15/16 at 13:00 Amlodipine Besylate (Norvasc) 10 mg DAILY PO Last administered on 12/16/16 09: 40; Admin Dose 10 MG; Start 12/16/16 at 09:00 Aspirin (Aspirin) 325 mg DAILY PO Last administered on 12/16/16 09:39; Admin Dose 325 MG; Start 12/16/16 at 09:00 Atorvastatin Calcium (Lipitor) 80 mg QHS PO Last administered on 12/15/16 22: 07; Admin Dose 80 MG; Start 12/15/16 at 21:00 Carvedilol 25 mg 25 mg BID PO Last administered on 12/16/16 09:40; Admin Dose 25 MG; Start 12/15/16 at 21:00 Ceftriaxone Sodium 50 ml @ 100 mls/hr Q24H IVPB Last administered on 14:47; Admin Dose 100 MLS/HR; Start 12/15/16 at 15:00 Azithromycin (Zithromax 500mg/ NS (Pmx)) 250 ml @ 250 mls/hr Q24H IVPB Last administered on 12/15/16 14:47; Admin Dose 250 MLS/HR; Start 12/15/16 at 14:00 Heparin Sodium (Porcine) (Heparin (5000 Units/0.5 ml)) 5,000 unit BID SC Last administered on 12/16/16 09:41; Admin Dose 5,000 UNIT; Start 12/15/16 at 21:00 Miscellaneous Information 1 ea NOTE XX ; Start 12/15/16 at 14:00 Glucose (Glutose) 15 gm Q15M PRN PO DECREASED GLUCOSE; Start 12/15/16 at 14:00 Glucose (Glutose) 22.5 gm Q15M PRN PO DECREASED GLUCOSE; Start 12/15/16 at 14: 00 Dextrose (D50w Syringe) 25 ml Q15M PRN IV DECREASED GLUCOSE; Start 12/15/16 at 14:00 Dextrose (D50w Syringe) 50 ml Q15M PRN IV DECREASED GLUCOSE; Start 12/15/16 at 14:00 Glucagon (Glucagen) 1 mg Q15M PRN IM DECREASED GLUCOSE; Start 12/15/16 at 14:00 Glucose (Glutose) 15 gm Q15M PRN BUCCAL DECREASED GLUCOSE; Start 12/15/16 at 14 :00 Hydralazine HCl (Apresoline) 25 mg Q8 PO Last administered on 12/16/16 05:27; Admin Dose 25 MG; Start 12/15/16 at 22:00 Furosemide (Lasix) 20 mg DAILY IV Last administered on 12/16/16 09:40; Admin Dose 20 MG; Start 12/16/16 at 09:00 Cholecalciferol 1000 unit 1,000 unit DAILY PO Last administered on 12/16/16 09 :39; Admin Dose 1,000 UNIT; Start 12/16/16 at 09:00 Ferric Sodium Gluconate Complex/ Sodium Chloride (Ferrlecit/NS) 110 ml @ 100 mls/hr Q24H IVPB ; Start 12/16/16 at 17:00; Stop 12/18/16 at 18:05 DELIA BILLY MD Dec 16, 2016 15:45
[2016-12-16 16:06] LABS: AADO2 Arterial 610.8 mmHg (7.0-24.0); Arterial Base Excess 4.6 mmol/L (-3.0-3); Arterial COHb 0.2 % (0.0-3.0); Arterial Fraction of Oxyhgb 92.5 % (93.0-99.0); Arterial HCO3 28.7 mmol/L (22.0-26.0); Arterial MetHb 0.3 % (0.0-1.5); Arterial Total Hemglobin 10.7 g/dl (12.0-18.0); MODE MASK - NRB
[2016-12-16] MEDS ORDERED: BARIUM SULF 2% 450 ML BTL (BERRY SMOOTHIE) PO ONE (16:30)
[2016-12-16] MEDS: CEFTRIAXONE 1 GM/50 ML (PMX) 50 ML IVPB SCH (16:44)
[2016-12-16] MEDS: AZITHROMYCIN 500MG/NS (PMX) 250 ML IVPB SCH (17:21)
--- NOTE | 2016-12-16 18:50 | CONS ---
DATE OF ADMISSION: 12/15/2016 DATE OF CONSULTATION: 12/16/2016 TYPE OF CONSULTATION:. PULMONARY CONSULTATION PRIMARY PHYSICIAN: London Ramos NP REASON FOR CONSULTATION: Hypoxemic respiratory insufficiency. HISTORY OF PRESENT ILLNESS: Briefly, this is a 41-year-old gentleman with history of hyper tension, diabetes, hyperlipidemia, who presents with an acute to subacute onset of cough and shortne ss of breath, found to be febrile and found to have evidence of a mild troponin leak and worsening a zotemia. During his hospitalization thus far, he has had some ongoing fevers with chest radiograph showing an atypical subtle left perihilar micronodular pattern. Additionally, he has had increasing oxygen requirements, and he is currently on a nonrebreather mask, although he appears comfortable. PAST MEDICAL HISTORY: As above; in addition, obesity. PAST SURGICAL HISTORY: Left great toe amputation. ALLERGIES: IBUPROFEN. SOCIAL HISTORY: Lives at home. No tobacco, alcohol or illicit drug use. He denies any pet exposur es or exposure to any mold. FAMILY HISTORY: Noncontributory. REVIEW OF SYSTEMS: As noted in the HPI. PHYSICAL EXAMINATION: GENERAL: A well-nourished, well-developed gentleman in no acute distress on a nonrebreather mask. VITAL SIGNS: Heart rate is 79, blood pressure is 129/67, oxygen saturation is 94% on a nonrebreathe r, temperature is 101.0. HEENT: Large neck, normocephalic, atraumatic. NECK: Supple, no thyromegaly. CHEST: Slight rhonchi heard, left greater than right. ABDOMEN: Obese, nontender. EXTREMITIES: No cyanosis, clubbing or edema. LABORATORY DATA: WBC is 7.3, hemoglobin is 9.7. Sodium is 132, creatinine is 2.7 this morning. Hi s most recent creatinine is 1.81. Troponin is 0.146. Echo shows normal LV function. Chest x-ray a s noted previously shows left perihilar nodular opacities. IMPRESSION: Hypoxemic respiratory insufficiency and fevers in a clinical picture most consistent wi th a viral pneumonia versus an atypical pneumonia. However, cannot rule out a noninfectious pneumon ia such as an organizing pneumonia. RECOMMENDATIONS: 1. Transfer to ICU for closer observation. 2. Continue antibiotics with ceftriaxone and azithromycin for now, although may consider changed to Levaquin, given possibility of mycoplasma infection. 3. Check cocci serologies and mycoplasma antibodies. 4. Check a CT noncontrast to better delineate parenchymal changes, given subtle chest x-ray findin gs. 5. Obtain a followup ABG. Dictated By: FELICITY HAYS MD NK/NTS Conf#: [id number] DID#: [id number] CC: VERO SOTO MD;*EndCC*
--- NOTE | 2016-12-16 18:57 | CONS ---
DATE OF ADMISSION: 12/15/2016 DATE OF CONSULTATION: 12/16/2016 TYPE OF CONSULTATION: Infectious Disease. REASON FOR CONSULTATION: Antibiotic management. HISTORY OF PRESENT ILLNESS: Santos Wilson is a 41-year-old male admitted on December 15 with fever s, cough and pleuritic chest pain. His problems include: 1. Essential hypertension. 2. Dyslipidemia. 3. Adult-onset diabetes mellitus. 4. Obesity. 5. Left great toe amputation. Acutely, the patient comes in with a nonproductive cough, subjective fevers, nausea, vomiting, pleur itic chest pain going on for the past 3 days. He denies any sick contacts. In the emergency room, he was hypokalemic at 2.5 and had a creatinine of 1.42 with normal BUN. His random blood sugar was 358. He was treated with potassium replacement and received vancomycin and Zosyn. On admission, hi s temperature was 104.1. His white count was 9.1, H and H of 12.9 and 37.2, platelet count 201,000. BUN and creatinine 14/1.42. Chest x-ray showed patchy left perihilar and left lower lobe infiltra elizabeth. The patient was felt to be septic secondary to underlying community-acquired pneumonia. He wa s pancultured. He had an elevated troponin. Today his white count is 7.3. Blood cultures so far a re negative. Chest x-ray is as outlined, DVT study is negative. HOSPITAL COURSE: The patient was seen by a number of different consultants, including Drs. Kris Sanon in cardiology and Dr. Dewitt in pulmonary. The patient thought to be septic secondary to underlying community-acquired pneumonia. Cultures so far are negative. The patient possibly has some CO2 retention. A CT scan of the chest without contrast was ordered. The patient is being tra nsferred to the ICU. A CT scan was ordered as well as cocci serologies. PAST MEDICAL HISTORY: Operations as outlined. FAMILY HISTORY: Noncontributory. SOCIAL HISTORY: He does not smoke, drink or abuse drugs. ALLERGIES: IBUPROFEN. MEDICATIONS: Per chart. REVIEW OF SYSTEMS: Noncontributory. PHYSICAL EXAMINATION: GENERAL: The patient is a well-developed, well-nourished, obese male. VITAL SIGNS: He was admitted with a temperature of 104.1, currently 101. SKIN: Without generalized rash. HEENT: Within normal limits. NECK: Supple. LYMPH NODES: None palpable. CHEST: Decreased breath sounds at the bases. HEART: Without murmur or gallop. ABDOMEN: Soft, nontender, without organosplenomegaly or masses. EXTREMITIES: Without cyanosis, clubbing, or edema. RECTAL/GENITAL: Exam is deferred. EXTREMITIES: He has a left great toe amputation. NEUROLOGIC: No focal neurological abnormalities. IMPRESSION AND PLAN: The patient currently is on ceftriaxone and azithromycin for community-acquire d pneumonia. Mycoplasma pneumonia was ordered, influenza A and B. CT scan of the abdomen and pelvis and cocci serologies were ordered as well. As noted, the patient was transferred to the intensive care unit. We will await his culture results. I will dictate my findings to the hospitalist and [facility] aforementioned physicians. Dictated By: DANUTA AYOUB MD, JD/SUNDEEP Conf#: [id number] DID#: [id number]
[2016-12-16] MEDS: SOD FERRIC GLUC COMPLX 125 MG in SOD CHLORIDE 0.9% 100 ML IVPB SCH (19:02)
[2016-12-16] MEDS: INSULIN GLARGINE [LANtus] 3 ML PEN SC SCH (20:00)
[2016-12-16] MEDS ORDERED: D5-NS + KCL 20 MEQ 1,000 ML IV SCH (21:00)
[2016-12-16] MEDS: ATORVASTATIN 80 MG TAB PO SCH (22:12)
[2016-12-17] VITALS (19 sets, daily range): BP systolic 99–166; BP diastolic 57–83; PULSE 64–85; RESP 19–30
[2016-12-17] MEDS: INSULIN ASPART [NOVOLOG] 3 ML PEN SC SCH ×9 (01:13→20:52)
[2016-12-17] MEDS: LEVALBUTEROL (NEB) 0.63 MG/3 ML AMP HHN SCH ×4 (01:26→19:48)
[2016-12-17 05:04] LABS: AADO2 Arterial 625.1 mmHg (7.0-24.0); Arterial Base Excess -1.1 mmol/L (-3.0-3); Arterial COHb 0.3 % (0.0-3.0); Arterial HCO3 22.7 mmol/L (22.0-26.0); Arterial MetHb 0.3 % (0.0-1.5); Arterial Total Hemglobin 9.8 g/dl (12.0-18.0); MODE MASK - NRB
[2016-12-17 05:47] LABS: ADD SCAN DIFF NO
[2016-12-17 05:53] LABS: ALBUMIN/GLOBULIN RATIO 0.71; CALCIUM 6.8 mg/dl (8.4-10.2); CREATININE 2.41 mg/dl (0.61-1.24); TOTAL PROTEIN 4.8 g/dl (6.1-8.1)
[2016-12-17 05:55] LABS: MAGNESIUM 1.9 mg/dl (1.7-2.5); PHOSPHORUS 4.1 mg/dl (2.5-4.9)
--- NOTE | 2016-12-17 06:14 | CONS ---
DATE OF ADMISSION: 12/15/2016 DATE OF CONSULTATION: NEPHROLOGY CONSULTATION REASON FOR CONSULTATION: Acute kidney injury. PHYSICIAN REQUESTING CONSULT: ____ HISTORY OF PRESENT ILLNESS: This is a 41-year-old male with past medical history of hypertension, d iabetes, dyslipidemia, and history of obesity who presents to [facility] Emergency Room wit h chief complaint of nonproductive cough, subjective fevers, chills, nausea, vomiting, and pleuritic chest pain. The patient's symptoms have been ongoing for the last 3 days. The patient denies any sick contacts. The patient took Tylenol [id number] without improvement in symptoms. As a res ult, he came into the emergency room for evaluation. Upon arrival, the patient had a chest x-ray wh ich showed findings of perihilar left lower lobe infiltrate. The patient was started on IV antibiot ic therapy and admitted to telemetry. While on telemetry, the patient had clinical decompensation a s he went into respiratory failure and as a result is being transferred to intensive care unit. In terms of the patient's renal history, the patient states that he has no prior history of chronic kidney disease. The patient, on admission, did have a creatinine of 1.42 mg/dL. The patient was al so hypokalemic with potassium of 2.5. The patient has been given potassium supplementation, and he has been receiving antibiotic therapy. The patient also denies any rashes, any dysuria, hematuria, hematochezia, any Coca Cola colored urine. PAST MEDICAL HISTORY: As stated above, history of hypertension, diabetes, obesity, dyslipidemia. PAST SURGICAL HISTORY: Left great toe amputation. MEDICATIONS: The patient's home medications have been reviewed. ALLERGIES: IBUPROFEN. SOCIAL HISTORY: Does not drink, smoke, or do drugs. FAMILY HISTORY: Noncontributory. REVIEW OF SYSTEMS: A 12-point review of systems was conducted. Pertinent positives as stated in HP I, otherwise negative. PHYSICAL EXAMINATION: VITAL SIGNS: Blood pressure is 130/62, respirations 16, temperature 98.6. HEENT: Normocephalic. Pupils are reactive to light. NECK: Supple. HEART: Regular rate. LUNGS: Show diminished breath sounds at bases. Positive rhonchi. ABDOMEN: Soft, nontender to palpation without rebound or guarding. EXTREMITIES: Negative for clubbing, cyanosis. Trace edema. DERMATOLOGIC: No rashes. MUSCULOSKELETAL: Positive lower calf pain. NEUROLOGIC: No focal deficits. LABORATORY DATA: Shows sodium 131, potassium 3.3, BUN 19, creatinine 1.81, calcium 6.8. White coun t 7.3, hemoglobin 9.7, hematocrit 29.0, platelet count 142. IMAGING STUDIES: See HPI. ASSESSMENT AND PLAN: This is a 41-year-old male who presents with 1. Nonoliguric acute kidney injury with previous baseline creatinine around 1.0 mg/dL. Etiology of acute kidney injury is likely secondary to hemodynamics and possible DILAN inhibitor effect. Plan, a t this point, is to check UA with microanalysis. We will check urine electrolytes. We will also ch joanna renal ultrasound to evaluate renal parenchyma. Agree with discontinuing diuretic therapy and di scontinue DILAN inhibitor. Would otherwise continue current treatment plan, supportive care, renally dose meds, avoid nephrotoxins. 2. Anemia with evidence of iron deficiency. We will continue to monitor H and H levels, consider i fernando supplementation. 3. Mineral bone disorder. Monitor calcium and phosphorus levels. 4. Hypokalemia. Etiology is likely secondary to recent diuretic therapy. We will replete with pot assium chloride. 5. Hyponatremia secondary to acute kidney injury causing decreased free water urinary excretion. W e will continue to monitor sodium levels closely and limit free water intake. 6. Acute hypoxemic respiratory failure. Etiology is likely secondary to pneumonia. Continue curre nt antibiotic regimen. The patient is on a nonrebreather. We will continue. We will transfer to ntensive care unit and monitor closely. 7. Elevated troponin. Etiology possibly non-ST elevation myocardial infarction type 2. Continue t o monitor. Follow up with cardiology. 8. Diabetes. Continue current insulin regimen. 9. Lower extremity edema, possible diastolic dysfunction. The patient had a preserved ejection fra ction, and 2-D echo shows type 1 diastolic dysfunction. We will continue to monitor. Defer diureti c therapy at this time in the setting of worsening renal function and follow up with cardiology. 10. Sepsis. Continue statin therapy. Thank you for this interesting consultation. It will be a pleasure to follow the patient with you t hroughout the hospital course. Dictated By: LUIS JOSHI/SUNDEEP Conf#: [id number] [facility]#: [id number]
--- NOTE | 2016-12-17 07:07 | RADRPT ---
PROCEDURE: XR Chest. TECHNIQUE: Single frontal radiograph. CLINICAL INDICATION: Pneumonia. COMPARISON: 06/02/2016. FINDINGS: There are increased air space opacities and consolidations involving the left greater than right renu g borrero. Lung volumes remain shallow. There is stable appearance of the cardiac silhouette. IMPRESSION: Significant increase in bilateral left greater than right infiltrates. RPTAT: EE .Inder Marx MD, MD Date Time Electronically viewed and signed by .Inder Marx MD, on 12/17/2016 07:11 .C/
[2016-12-17] MEDS ORDERED: POTASSIUM CHLORIDE (SR) 20 MEQ TAB PO STA (08:06)
[2016-12-17] MEDS: ASPIRIN 325 MG TAB PO SCH (08:17)
[2016-12-17] MEDS: CHOLECALCIFEROL 1,000 UNIT TAB PO SCH (08:17)
[2016-12-17] MEDS: FAMOTIDINE 20 MG TAB PO SCH ×2 (08:17→20:45)
[2016-12-17] MEDS: AMLODIPINE 10 MG TAB PO SCH (08:18)
[2016-12-17] MEDS: HEPARIN 5,000 UNIT/0.5 ML VIAL SC SCH ×2 (08:19→20:49)
[2016-12-17] MEDS: DEXTROSE 5%-0.9% NACL 1,000 ML IV SCH (08:31)
--- NOTE | 2016-12-17 09:04 | PN ---
Date/Time of Note Date/Time of Note DATE: 12/17/16 TIME: 09:02 Assessment/Plan VTE Prophylaxis VTE Prophylaxis Intervention: heparin Lines/Catheters IV [facility]ter [facility]from [facility]): Peripheral IV Urinary Cath still in place: No Assessment/Plan Chief Complaint/Hosp Course 1. Sepsis secondary to underlying community-acquired pneumonia. The patient on appropriate antibiotics. Pancultures negative so far. The patient being followed by infectious disease. 2. Acute hypoxic respiratory failure. Most probably secondary to underlying pneumonia. Continue inhaled bronchodilators and supplemental oxygen. Pulmonology following the patient. 3. Elevated troponins. Most probably a type 2 event from underlying sepsis and underlying acute kidney injury. Cardiology following. 4. Acute kidney injury. The patient had a normal creatinine of 1.00 on 2015. The patient's current acute kidney injury could be most probably secondary to dehydration from persistent vomiting. The patient's nephrotoxic drugs will be held at this time. Nephrology following. 5. Type 2 diabetes mellitus. Uncontrolled. A1C is high (send out). The patient will be maintained on sliding scale insulin along with basal insulin and premeal insulin. 6. Dyslipidemia. Continue statins. 7. Essential hypertension. Continue routine antihypertensives and p.r.n. antihypertensives for any systolic blood pressure readings greater than 160 mmHg. 8. Hypokalemia. Most probably secondary to persistent nausea and vomiting. The patient's potassium will be repleted. 9. Microcytic, hypochromic anemia. Etiology unclear. Iron panel showing iron deficiency. Continue iron supplements. 10. Morbid obesity. BMI of 39.8 kg/m. Weight reduction advised. 11. Fluids, electrolytes, and nutrition. Carbohydrate controlled, low- cholesterol diet. 12. DVT prophylaxis. Subcutaneous heparin. 13. Gastrointestinal prophylaxis. Histamine 2 receptor blockers. 14. Plan. Continue antibiotics. Replete potassium. Monitor in intensive care unit. Case discussed with Dr. Perez. Critical care time: 35 minutes. Problems: Subjective 24 Hr Interval Summary Free Text/Dictation The patient was moved to intensive care unit last evening because of worsening respiratory distress. The patient had currently on a nonrebreather mask, being switched to high flow oxygen at 100%. Exam/Review of Systems Vital Signs Vitals Vital Signs Date Time Temp Pulse Resp B/P Pulse Ox O2 Delivery O2 Flow Rate FiO2 12/17/16 07:00 98.5 25 130/67 84 High Flow 12/17/16 06:14 100 12/17/16 06:00 78 12/17/16 01:38 15.0 Intake and Output 12/16/16 12/16/16 12/17/16 15:00 23:00 07:00 Intake Total 380 ml 490 ml Balance 380 ml 490 ml Exam GENERAL: This is a morbidly obese male lying in bed in moderate respiratory distress. HEENT: Head normocephalic and atraumatic. Eyes: Anicteric sclerae. Conjunctivae clear. ENT: Nasal septum is midline. Oral mucosa is dry. NECK: Short with increased neck circumference. RESPIRATORY: Bilaterally diminished breath sounds. A few rhonchi heard, especially on the left side posteriorly. Expiratory wheezing. Use of accessory muscles of respiration. CARDIAC: Regular rate and rhythm. S1, S2 heard. ABDOMEN: Soft, nontender and nondistended. Bowel sounds positive in all 4 quadrants. GENITOURINARY: Deferred. EXTREMITIES: No cyanosis, no clubbing. B/L LE edema. Pedal pulses palpable. Status post left great toe amputation. NEUROLOGIC: The patient is awake, alert and oriented. Cranial nerves are grossly intact. Results Result Diagram: 12/16/16 0540 12/17/16 0450 Results 24 hrs Laboratory Tests Test 12/16/16 11:52 12/16/16 15:00 12/16/16 17:23 12/16/16 20:11 Bedside Glucose 133 127 77 Blood Gas Specimen Source Blood arterial Arterial Blood Date Drawn 12/16/2016 3:10:54 PM Arterial Blood pH (Temp corrected) 7.467 H Arterial Blood pCO2 (Temp correct) 40.6 Arterial Blood pO2 (Temp corrected) 61.6 L Arterial Blood HCO3 28.7 H Arterial Blood Base Excess 4.6 H Arterial Blood Oxygen Saturation 93.0 L Leobardo Test N/A Arterial Blood Gas Puncture Site LB Arterial Blood Carboxyhemoglobin 0.2 Arterial Blood Methemoglobin 0.3 Blood Gas A-a O2 Differential 610.8 H Oxyhemoglobin Percent 92.5 L Total Hemoglobin 10.7 L Blood Gas Temperature 37.0 Blood Gas Modality MASK - NRB FiO2 100.0 Blood Gas Notified Whom TM Blood Gas Notified Time 12/16/2016 3:20:03 PM Test 12/16/16 22:23 12/17/16 01:04 12/17/16 04:50 12/17/16 05:00 Bedside Glucose 139 160 Sodium Level 129 L Potassium Level 3.0 L Chloride Level 100 Carbon Dioxide Level 26 Anion Gap 6 L Blood Urea Nitrogen 29 H Creatinine 2.41 H Glucose Level 162 Lactic Acid Level 0.9 Calcium Level 6.8 L Phosphorus Level 4.1 Magnesium Level 1.9 Total Bilirubin 0.0 L Direct Bilirubin 0.00 Indirect Bilirubin 0.0 Aspartate Amino Transf (AST/SGOT) 56 #H Alanine Aminotransferase (ALT/SGPT) 30 Alkaline Phosphatase 74 Total Protein 4.8 L Albumin 2.0 L Globulin 2.80 Albumin/Globulin Ratio 0.71 Blood Gas Specimen Source Blood arterial Arterial Blood Date Drawn 12/17/2016 4:35:41 AM Arterial Blood pH (Temp corrected) 7.438 Arterial Blood pCO2 (Temp correct) 34.3 L Arterial Blood pO2 (Temp corrected) 53.6 *L Arterial Blood HCO3 22.7 Arterial Blood Base Excess -1.1 Arterial Blood Oxygen Saturation 88.5 L Leobardo Test N/A Arterial Blood Gas Puncture Site LB Arterial Blood Carboxyhemoglobin 0.3 Arterial Blood Methemoglobin 0.3 Blood Gas A-a O2 Differential 625.1 H Oxyhemoglobin Percent 88.0 L Total Hemoglobin 9.8 L Blood Gas Temperature 37.0 Blood Gas Modality MASK - NRB FiO2 100.0 Blood Gas Critical Value Read Back Agapito VANCE RN Blood Gas Notified Whom MM Blood Gas Notified Time 12/17/2016 5:04:41 AM Test 12/17/16 05:16 12/17/16 08:04 Bedside Glucose 170 156 Medications Medications Current Medications Insulin Glargine (Lantus) 33 unit DAILY@20 SC ; Start 12/15/16 at 20:00 Lorazepam (Ativan) 0.5 mg Q6H PRN IV ANXIETY; Start 12/15/16 at 13:00 Ondansetron HCl (Zofran Inj) 4 mg Q6H PRN IV NAUSEA AND/OR VOMITING; Start at 13:00 Acetaminophen (Tylenol Tab) 650 mg Q6H PRN PO PAIN LEVEL 1-3 OR FEVER Last administered on 12/16/16t 16:51; Admin Dose 650 MG; Start 12/15/16 at 13:00 Acetaminophen/ Hydrocodone Bitart ([place] (5/325)) 1 tab Q6H PRN PO PAIN LEVEL 4 -6 Last administered on 12/15/16 22:08; Admin Dose 1 TAB; Start 12/15/16 at 13: 00 Morphine Sulfate (morphine) 2 mg Q4H PRN IV PAIN LEVEL 7-10; Start 12/15/16 at 13:00 Magnesium Hydroxide (Milk Of Mag) 30 ml DAILY PRN PO CONSTIPATION; Start at 13:00 Bisacodyl (Dulcolax) 5 mg DAILY PRN PO CONSTIPATION; Start 12/15/16 at 13:00 Famotidine (Pepcid) 20 mg Q12 PO Last administered on 12/17/16 08:17; Admin Dose 20 MG; Start 12/15/16 at 21:00 Hydralazine HCl (Apresoline) 10 mg Q6H PRN IV SBP>160; Start 12/15/16 at 13:00 Amlodipine Besylate (Norvasc) 10 mg DAILY PO Last administered on 12/17/16 08: 18; Admin Dose 10 MG; Start 12/16/16 at 09:00 Aspirin (Aspirin) 325 mg DAILY PO Last administered on 12/17/16 08:17; Admin Dose 325 MG; Start 12/16/16 at 09:00 Atorvastatin Calcium (Lipitor) 80 mg QHS PO Last administered on 12/16/16 22: 12; Admin Dose 80 MG; Start 12/15/16 at 21:00 Carvedilol 25 mg 25 mg BID PO Last administered on 12/17/16 08:18; Admin Dose 25 MG; Start 12/15/16 at 21:00 Ceftriaxone Sodium 50 ml @ 100 mls/hr Q24H IVPB Last administered on 16:44; Admin Dose 100 MLS/HR; Start 12/15/16 at 15:00 Azithromycin (Zithromax 500mg/ NS (Pmx)) 250 ml @ 250 mls/hr Q24H IVPB Last administered on 12/16/16 17:21; Admin Dose 250 MLS/HR; Start 12/15/16 at 14:00 Heparin Sodium (Porcine) (Heparin (5000 Units/0.5 ml)) 5,000 unit BID SC Last administered on 12/17/16 08:19; Admin Dose 5,000 UNIT; Start 12/15/16 at 21:00 Miscellaneous Information 1 ea NOTE XX ; Start 12/15/16 at 14:00 Glucose (Glutose) 15 gm Q15M PRN PO DECREASED GLUCOSE; Start 12/15/16 at 14:00 Glucose (Glutose) 22.5 gm Q15M PRN PO DECREASED GLUCOSE; Start 12/15/16 at 14: 00 Dextrose (D50w Syringe) 25 ml Q15M PRN IV DECREASED GLUCOSE; Start 12/15/16 at 14:00 Dextrose (D50w Syringe) 50 ml Q15M PRN IV DECREASED GLUCOSE; Start 12/15/16 at 14:00 Glucagon (Glucagen) 1 mg Q15M PRN IM DECREASED GLUCOSE; Start 12/15/16 at 14:00 Glucose (Glutose) 15 gm Q15M PRN BUCCAL DECREASED GLUCOSE; Start 12/15/16 at 14 :00 Hydralazine HCl (Apresoline) 25 mg Q8 PO Last administered on 12/17/16 06:21; Admin Dose 25 MG; Start 12/15/16 at 22:00 Cholecalciferol 1000 unit 1,000 unit DAILY PO Last administered on 12/17/16 08 :17; Admin Dose 1,000 UNIT; Start 12/16/16 at 09:00 Ferric Sodium Gluconate Complex/ Sodium Chloride (Ferrlecit/NS) 110 ml @ 100 mls/hr Q24H IVPB Last administered on 12/16/16 19:02; Admin Dose 100 MLS/HR; Start 12/16/16 at 17:00; Stop 12/18/16 at 18:05 Insulin Aspart NOVOLOG *MILD* ALGORI... Q4 SC Last administered on 12/17/16 08 :21; Admin Dose 1 UNIT; Start 12/16/16 at 21:00 Dextrose/Sodium Chloride (D5-NS) 1,000 ml @ 50 mls/hr Q20H IV Last administered on 12/17/16 08:31; Admin Dose 50 MLS/HR; Start 12/17/16 at 08:30 GEORGI CORBETT NP Dec 17, 2016 09:04
--- NOTE | 2016-12-17 09:25 | PN ---
DATE: 12/17/2016 SUBJECTIVE: The patient was transferred from telemetry to the intensive care unit yesterday. Overn ight, the patient was placed on high flow oxygen. The patient has been hemodynamically stable. The patient has not had urinary output but has refused Ritchie catheter placement. No other events noted . OBJECTIVE: VITAL SIGNS: Blood pressure 137/62, respirations 25, pulse 77, temperature 98.5. I's and O's 870 i n, no output. HEENT: Head is normocephalic. Pupils are reactive to light. NECK: Supple. HEART: Regular rate. LUNGS: Show diminished breath sounds at base. Positive rhonchi. ABDOMEN: Soft, nontender to palpation without rebound or guarding. EXTREMITIES: Negative for clubbing, cyanosis. Trace edema. DERMATOLOGIC: No rashes. MUSCULOSKELETAL: No joint effusions. NEUROLOGIC: No focal deficits. MEDICATIONS: Reviewed. LABORATORY DATA: Showed sodium 129, potassium 3.0, chloride 100, BUN 29, creatinine 2.41, calcium 6 .8. White count is 7.3, hemoglobin 9.7, hematocrit 29.0, platelet count 152. The patient has an AB G of 7.43, pCO2 of 34, and a pO2 of 53. Chest x-ray on 12/17/2016 shows significant increases in op acities. Urinalysis is pending. ASSESSMENT AND PLAN: 1. Oliguric acute kidney injury with previous baseline creatinine 1.0 mg/dL. Etiology of acute kid sierra injury is likely secondary to sepsis, possible tubular injury. The patient's renal function has declined in the last 48 hours as the patient may be in injury phase of septic acute kidney injury. Urinary output has diminished, although the patient refused Ritchie catheter, so strict I's and O's a re unclear. Plan at this point is to get a stat urinalysis. We will check urine electrolytes, calc ulate a FENa. We will get a renal ultrasound to evaluate renal parenchyma and to rule out obstructi on. We will continue current treatment plan. Continue antibiotics to treat underlying sepsis. Con tinue supportive care, renally dose all meds, and avoid nephrotoxins. Monitor closely. 2. Hyponatremia, etiology secondary to acute kidney injury causing decreased free water urinary exc retion. The patient will be placed on free water restriction of no more than 800 mL daily and monit or closely. 3. Hypokalemia. Replete potassium chloride. 4. Anemia with iron deficiency. Continue to monitor hemoglobin and hematocrit levels. 5. Mineral bone disorder. Monitor calcium and phosphorus levels. 6. Acute hypoxemic respiratory failure secondary to pneumonia, possibly viral. The patient is on e mpiric antibiotic therapy. We will continue. The patient is on high flow oxygen. We will continue . We will follow up with pulmonary. 7. Elevated troponin, possibly non-ST elevation myocardial infarction, type 2. Continue medical ma nagement. Follow up with cardiology. 8. Diabetes. Continue current insulin regimen. 9. Lower extremity edema. Etiology may be secondary to diastolic dysfunction versus venous insuffi ciency. The patient's 2D echo showed preserved ejection fraction. Continue to monitor. 10. Dyslipidemia. Continue statin therapy. Please note I spent over 40 minutes of critical care time with this patient. Dictated By: LUIS JOSHI/NTS Conf#: [id number] DID#: [id number]
[2016-12-17 09:29] LABS: BASOPHILS % 0.2 % (0.0-2.0); HEMATOCRIT 28.7 % (42.0-52.0); LYMPHOCYTES # 0.9 10^3/ul (0.8-2.9); LYMPHOCYTES % 15.7 % (15.0-51.0); MEAN CORPUSCULAR HEMOGLOBIN 26.9 pg (29.0-33.0); MEAN CORPUSCULAR HGB CONC 31.4 g/dl (32.0-37.0); MEAN CORPUSCULAR VOLUME 85.9 fl (82.0-101.0); MEAN PLATELET VOLUME 12.7 fl (7.4-10.4); MONOCYTE # 0.3 10^3/ul (0.3-0.9); MONOCYTES % 5.8 % (0.0-11.0); NEUTROPHIL # 4.5 10^3/ul (1.6-7.5); PLATELET COUNT 157 10^3/UL (140-415); RED BLOOD COUNT 3.34 10^6/ul (4.70-6.10); RED CELL DISTRIBUTION WIDTH 13.3 % (11.5-14.5); WHITE BLOOD COUNT 5.7 10^3/ul (4.8-10.8)
[2016-12-17 09:50] LABS: AADO2 Arterial 612.3 mmHg (7.0-24.0); Arterial Base Excess -2.1 mmol/L (-3.0-3); Arterial COHb 0.2 % (0.0-3.0); Arterial Fraction of Oxyhgb 91.8 % (93.0-99.0); Arterial HCO3 22.1 mmol/L (22.0-26.0); Arterial MetHb 0.3 % (0.0-1.5); Arterial Total Hemglobin 10.4 g/dl (12.0-18.0); MODE HIGH FLOW NASAL CANNULA
--- NOTE | 2016-12-17 09:52 | RADRPT ---
PROCEDURE: CT Chest and Abdomen without contrast. 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 TECHNIQUE: CT scan of the chest and abdomen with contrast was performed on a multidetector high-re solution CT scanner. Coronal and sagittal reformatted images were obtained from the axial source im ages. Images were reviewed on a high-resolution PACS workstation. The total exam CTDI equals 20 mGy and the total exam DLP equals 1918 mGy-cm. One or more of the following dose reduction techniques were used: - Automated exposure control. - Adjustment of the mA and/or kV according to patient size. Use of iterative reconstruction technique. COMPARISON: No. FINDINGS: CT Chest: There are infiltrates in the right upper lobe, left upper lobe, lingula, right middle lob e and right and left lower lobes. There are small pleural effusions greater on the left side than r ight. There is peribronchial thickening. The heart is normal in size. There is a small pericardial effusion. There are vascular calcifications in the proximal left coron eric artery. There is enlarged left hilar lymph node. There is a large lymph node at the level of the azygos vei n in the right paratracheal area. It measures it measures 10.9 mm. No enlarged supraclavicular or axillary lymph nodes are identified. Vocal cords and trachea are normal. The thyroid nodules are n oted. There are no follow-up. The main pulmonary artery measures 3.9 cm in transverse diameter which is enlarged. There are vascu lar calcifications in the aortic arch and innominate artery. There are degenerative osteophytes in the thoracic spine. No acute bony fracture or bone metastasis identified. CT Abdomen and pelvis : The liver is enlarged measuring 20.8 cm AP. No hepatic mass or intrahepatic biliary ductal dilatati on is identified. The gallbladder and gallbladder wall are normal. The pancreas and extrahepatic common bile duct are normal. The spleen is unremarkable. The adrenal glands are normal. The kidneys unremarkable. Urinary bladder is normal. No bladder stone is identified. The prostate gland and seminal vesicles are normal. The stomach is unremarkable but is incompletely distended. There is no evidence of a hiatal hernia. There is thickening of the mucosa of small bowel loops in the left mid abdomen. Thickening measure s up to 8 mm. There is moderate fecal material in the colon. There is a normal vermiform appendix. There are bila teral inguinal hernias which contain fat but no intra-abdominal loops. No enlarged intra abdominal or pelvic lymph nodes are identified. There are degenerative changes in the lumbar spine. IMPRESSION: 1. There are patchy alveolar and nodular infiltrates in the lungs (some of which are peripheral) wi th peribronchial thickening suspicious for pneumonia. There is associated small pleural effusions. Follow-up imaging is recommended to ensure clearing. Consider cryptogenic organizing pneumonia. 2. Inhomogeneity of the thyroid gland suggesting small thyroid nodules for which no additional foll ow-up is recommended unless clinically indicated. 3. Enlarged mediastinal lymph nodes as described. 4. Hepatomegaly. 5. Atherosclerotic vascular disease. there is 6 enlarged main pulmonary artery outflow tract measu ring up to 3.9 cm transverse. Findings suspicious for pulmonary arterial hypertension. 6. Mucosal thickening of small bowel loops in the left upper abdomen. A small bowel enteritis migh t present this fashion. 7. Osteoarthritis of the thoracic and lumbosacral spine. 8. Anasarca. 9. Small bilateral inguinal hernias containing fat. 10. Hepatomegaly. RPTAT:AAJJ Physician Sarwat Date Time Electronically viewed and signed by Physician Sarwat on 12/17/2016 09:51 ERNIE/
[2016-12-17] MEDS ORDERED: LORAZEPAM 2 MG INJ IV ONE ×2 (10:00→23:30)
[2016-12-17] MEDS ORDERED: LORAZEPAM 2 MG INJ IV PRN (10:00)
[2016-12-17 13:33] LABS: ADD UMIC YES; URINE BILIRUBIN (Dip) NEGATIVE (NEGATIVE); URINE BLOOD (Dip) 2+ (NEGATIVE); URINE COLOR YELLOW (YELLOW); URINE KETONES (Dip) NEGATIVE (NEGATIVE); URINE LEUKOCYTE ESTERASE (Dip) NEGATIVE (NEGATIVE); URINE NITRITE (Dip) NEGATIVE (NEGATIVE); URINE TOTAL PROTEIN (Dip) 4+ (NEGATIVE); URINE UROBILINOGEN (Dip) 0.2 E.U./dL (0.1-1.0)
--- NOTE | 2016-12-17 13:39 | CONS ---
Date/Time of Note Date/Time of Note DATE: 12/17/16 TIME: 13:32 Consult Date/Type/Reason Admit Date/Time Dec 15, 2016 at 11:20 Initial Consult Date Type of Consultation: Pulm/CCM Subjective Transferred by myself to the ICU last pm. Now on high-flow nasal canula. Agitated. Worsening renal function noted. Objective Vital Signs Date Time Temp Pulse Resp B/P Pulse Ox O2 Delivery O2 Flow Rate FiO2 12/17/16 12:00 98.5 72 23 105/64 97 High Flow 12/17/16 08:00 15.0 12/17/16 06:14 100 Intake and Output 12/16/16 12/16/16 12/17/16 15:00 23:00 07:00 Intake Total 380 ml 490 ml Balance 380 ml 490 ml Exam HEENT: Large neck, normocephalic, atraumatic. NECK: Supple, no thyromegaly. CHEST: + rhonchi R>L and basilar rales ABDOMEN: Obese, nontender. EXTREMITIES: No cyanosis, clubbing or edema. Results/Medications Result Diagram: 12/17/16 0450 12/17/16 0450 Results 24 hrs Laboratory Tests Test 12/16/16 15:00 12/16/16 17:23 12/16/16 20:11 12/16/16 22:23 Blood Gas Specimen Source Blood arterial Arterial Blood Date Drawn 12/16/2016 3:10:54 PM Arterial Blood pH (Temp corrected) 7.467 H Arterial Blood pCO2 (Temp correct) 40.6 Arterial Blood pO2 (Temp corrected) 61.6 L Arterial Blood HCO3 28.7 H Arterial Blood Base Excess 4.6 H Arterial Blood Oxygen Saturation 93.0 L Leobardo Test N/A Arterial Blood Gas Puncture Site LB Arterial Blood Carboxyhemoglobin 0.2 Arterial Blood Methemoglobin 0.3 Blood Gas A-a O2 Differential 610.8 H Oxyhemoglobin Percent 92.5 L Total Hemoglobin 10.7 L Blood Gas Temperature 37.0 Blood Gas Modality MASK - NRB FiO2 100.0 Blood Gas Notified Whom TM Blood Gas Notified Time 12/16/2016 3:20:03 PM Bedside Glucose 127 77 139 Test 12/17/16 01:04 12/17/16 04:50 12/17/16 05:00 12/17/16 05:16 Bedside Glucose 160 170 White Blood Count 5.7 # Red Blood Count 3.34 L Hemoglobin 9.0 L Hematocrit 28.7 L Mean Corpuscular Volume 85.9 Mean Corpuscular Hemoglobin 26.9 L Mean Corpuscular Hemoglobin Concent 31.4 L Red Cell Distribution Width 13.3 Platelet Count 157 Mean Platelet Volume 12.7 H Neutrophils % 78.0 H Lymphocytes % 15.7 Monocytes % 5.8 Eosinophils % 0.0 Basophils % 0.2 Nucleated Red Blood Cells % 0.0 Neutrophils # 4.5 Lymphocytes # 0.9 Monocytes # 0.3 Eosinophils # 0.0 Basophils # 0.0 Nucleated Red Blood Cells # 0.0 Sodium Level 129 L Potassium Level 3.0 L Chloride Level 100 Carbon Dioxide Level 26 Anion Gap 6 L Blood Urea Nitrogen 29 H Creatinine 2.41 H Glucose Level 162 Lactic Acid Level 0.9 Calcium Level 6.8 L Phosphorus Level 4.1 Magnesium Level 1.9 Total Bilirubin 0.0 L Direct Bilirubin 0.00 Indirect Bilirubin 0.0 Aspartate Amino Transf (AST/SGOT) 56 #H Alanine Aminotransferase (ALT/SGPT) 30 Alkaline Phosphatase 74 Total Protein 4.8 L Albumin 2.0 L Globulin 2.80 Albumin/Globulin Ratio 0.71 Blood Gas Specimen Source Blood arterial Arterial Blood Date Drawn 12/17/2016 4:35:41 AM Arterial Blood pH (Temp corrected) 7.438 Arterial Blood pCO2 (Temp correct) 34.3 L Arterial Blood pO2 (Temp corrected) 53.6 *L Arterial Blood HCO3 22.7 Arterial Blood Base Excess -1.1 Arterial Blood Oxygen Saturation 88.5 L Leobardo Test N/A Arterial Blood Gas Puncture Site LB Arterial Blood Carboxyhemoglobin 0.3 Arterial Blood Methemoglobin 0.3 Blood Gas A-a O2 Differential 625.1 H Oxyhemoglobin Percent 88.0 L Total Hemoglobin 9.8 L Blood Gas Temperature 37.0 Blood Gas Modality MASK - NRB FiO2 100.0 Blood Gas Critical Value Read Back Agapito VANCE RN Blood Gas Notified Whom MM Blood Gas Notified Time 12/17/2016 5:04:41 AM Test 12/17/16 07:00 12/17/16 08:04 12/17/16 12:21 Blood Gas Specimen Source Blood arterial Arterial Blood Date Drawn 12/17/2016 9:40:35 AM Arterial Blood pH (Temp corrected) 7.412 Arterial Blood pCO2 (Temp correct) 35.5 Arterial Blood pO2 (Temp corrected) 65.2 L Arterial Blood HCO3 22.1 Arterial Blood Base Excess -2.1 Arterial Blood Oxygen Saturation 92.3 L Leobardo Test N/A Arterial Blood Gas Puncture Site LB Arterial Blood Carboxyhemoglobin 0.2 Arterial Blood Methemoglobin 0.3 Blood Gas A-a O2 Differential 612.3 H Oxyhemoglobin Percent 91.8 L Total Hemoglobin 10.4 L Blood Gas Temperature 37.0 Blood Gas Modality HIGH FLOW NASAL CANNULA FiO2 100.0 Blood Gas Notified Whom PREET Blood Gas Notified Time 12/17/2016 9:50:08 AM Bedside Glucose 156 137 Medications Current Medications Insulin Glargine (Lantus) 33 unit DAILY@20 SC ; Start 12/15/16 at 20:00 Ondansetron HCl (Zofran Inj) 4 mg Q6H PRN IV NAUSEA AND/OR VOMITING; Start at 13:00 Acetaminophen (Tylenol Tab) 650 mg Q6H PRN PO PAIN LEVEL 1-3 OR FEVER Last administered on 12/16/16 16:51; Admin Dose 650 MG; Start 12/15/16 at 13:00 Acetaminophen/ Hydrocodone Bitart ([place] (5/325)) 1 tab Q6H PRN PO PAIN LEVEL 4 -6 Last administered on 12/15/16 22:08; Admin Dose 1 TAB; Start 12/15/16 at 13: 00 Morphine Sulfate (morphine) 2 mg Q4H PRN IV PAIN LEVEL 7-10; Start 12/15/16 at 13:00 Magnesium Hydroxide (Milk Of Mag) 30 ml DAILY PRN PO CONSTIPATION; Start at 13:00 Bisacodyl (Dulcolax) 5 mg DAILY PRN PO CONSTIPATION; Start 12/15/16 at 13:00 Famotidine (Pepcid) 20 mg Q12 PO Last administered on 12/17/16 08:17; Admin Dose 20 MG; Start 12/15/16 at 21:00 Hydralazine HCl (Apresoline) 10 mg Q6H PRN IV SBP>160; Start 12/15/16 at 13:00 Amlodipine Besylate (Norvasc) 10 mg DAILY PO Last administered on 12/17/16 08: 18; Admin Dose 10 MG; Start 12/16/16 at 09:00 Aspirin (Aspirin) 325 mg DAILY PO Last administered on 12/17/16 08:17; Admin Dose 325 MG; Start 12/16/16 at 09:00 Atorvastatin Calcium (Lipitor) 80 mg QHS PO Last administered on 12/16/16 22: 12; Admin Dose 80 MG; Start 12/15/16 at 21:00 Carvedilol 25 mg 25 mg BID PO Last administered on 12/17/16 08:18; Admin Dose 25 MG; Start 12/15/16 at 21:00 Ceftriaxone Sodium 50 ml @ 100 mls/hr Q24H IVPB Last administered on 16:44; Admin Dose 100 MLS/HR; Start 12/15/16 at 15:00 Azithromycin (Zithromax 500mg/ NS (Pmx)) 250 ml @ 250 mls/hr Q24H IVPB Last administered on 12/16/16 17:21; Admin Dose 250 MLS/HR; Start 12/15/16 at 14:00 Heparin Sodium (Porcine) (Heparin (5000 Units/0.5 ml)) 5,000 unit BID SC Last administered on 12/17/16 08:19; Admin Dose 5,000 UNIT; Start 12/15/16 at 21:00 Miscellaneous Information 1 ea NOTE XX ; Start 12/15/16 at 14:00 Glucose (Glutose) 15 gm Q15M PRN PO DECREASED GLUCOSE; Start 12/15/16 at 14:00 Glucose (Glutose) 22.5 gm Q15M PRN PO DECREASED GLUCOSE; Start 12/15/16 at 14: 00 Dextrose (D50w Syringe) 25 ml Q15M PRN IV DECREASED GLUCOSE; Start 12/15/16 at 14:00 Dextrose (D50w Syringe) 50 ml Q15M PRN IV DECREASED GLUCOSE; Start 12/15/16 at 14:00 Glucagon (Glucagen) 1 mg Q15M PRN IM DECREASED GLUCOSE; Start 12/15/16 at 14:00 Glucose (Glutose) 15 gm Q15M PRN BUCCAL DECREASED GLUCOSE; Start 12/15/16 at 14 :00 Hydralazine HCl (Apresoline) 25 mg Q8 PO Last administered on 12/17/16 06:21; Admin Dose 25 MG; Start 12/15/16 at 22:00 Cholecalciferol 1000 unit 1,000 unit DAILY PO Last administered on 12/17/16 08 :17; Admin Dose 1,000 UNIT; Start 12/16/16 at 09:00 Ferric Sodium Gluconate Complex/ Sodium Chloride (Ferrlecit/NS) 110 ml @ 100 mls/hr Q24H IVPB Last administered on 12/16/16 19:02; Admin Dose 100 MLS/HR; Start 12/16/16 at 17:00; Stop 12/18/16 at 18:05 Insulin Aspart NOVOLOG *MILD* ALGORI... Q4 SC Last administered on 12/17/16 08 :21; Admin Dose 1 UNIT; Start 12/16/16 at 21:00 Dextrose/Sodium Chloride (D5-NS) 1,000 ml @ 50 mls/hr Q20H IV Last administered on 12/17/16 08:31; Admin Dose 50 MLS/HR; Start 12/17/16 at 08:30 Assessment/Plan Additional Assessment/Plan IMPRESSION: 1. Hypoxemic respiratory Failure with rapidly progressive airspace opacities, fevers, renal failure, and droping H/H. Imaging findings not typical for, however, DAH due to a capillaritis secondary to MPA or GPA could present this way. He is not behaving as a typical CAP, however atypical pneumonia such as mycoplasma can present this way. RECOMMENDATIONS: 1. Low threshold for intubation 2. Continue antibiotics with ceftriaxone and azithromycin for now, although may consider changed to Levaquin, given possibility of mycoplasma infection. 3. Check cocci serologies and mycoplasma antibodies; CRAG: HIV 4. Obtain ESR, CRP, ANCA, DAISY for now. 5. Start pulse steroids with solumedrol 250 mg BID for now 6. If intubated would perform bronch with BAL to assess for DAH 7. Consider adding vanco for the time being. 8. UA to assess sediment 35 min cc time . FELICITY HAYS MD Dec 17, 2016 13:39
[2016-12-17 13:49] LABS: COCAINE Positive (NEGATIVE)
[2016-12-17 13:50] LABS: BARBITURATES Negative (NEGATIVE); BENZODIAZEPINES Negative (NEGATIVE); CANNABINOIDS Negative (NEGATIVE); OPIATES Positive (NEGATIVE)
[2016-12-17 14:02] LABS: BACTERIA,URINE OCCASIONAL
[2016-12-17 14:04] LABS: AADO2 Arterial 607.4 mmHg (7.0-24.0); Arterial Base Excess -0.5 mmol/L (-3.0-3); Arterial COHb 0.2 % (0.0-3.0); Arterial Fraction of Oxyhgb 93.2 % (93.0-99.0); Arterial HCO3 23.5 mmol/L (22.0-26.0); Arterial MetHb 0.3 % (0.0-1.5); MODE HIGH FLOW
[2016-12-17] MEDS: METHYLPRED. NA SUCC 250 MG in DEXTROSE 5% 50 ML IV SCH ×2 (14:13→20:45)
[2016-12-17] MEDS: AZITHROMYCIN 500MG/NS (PMX) 250 ML IVPB SCH (14:14)
[2016-12-17] MEDS: CEFTRIAXONE 1 GM/50 ML (PMX) 50 ML IVPB SCH (15:00)
--- NOTE | 2016-12-17 16:35 | CONS ---
Date/Time of Note Date/Time of Note DATE: 12/17/16 TIME: 16:33 Assessment/Plan Assessment/Plan Additional Assessment/Plan 1. Positive troponin, assess significance - no CP now, doubt ongoing ischemia now. NOW IN ICU with resp issues - no cp noted. 2. Abnormal electrocardiogram with ST depressions with tachycardia and positive troponin, likely indicative of coronary artery disease. 3. Hypertension - better now, con't to keep euvolemic - well rx now. 4. Dyslipidemia. 5. Diabetes mellitus - on meds. 6. Fevers to 104 documented here in the hospital- on anti-Bx now, not febrile now. 7. Renal failure - stable urine output now. 8. Lower extremity edema, assess for congestive heart failure- con't to keep euvolemic. 9. Hypokalemia. 10. Nausea and vomiting. 11. Chest pain with cough. Consultation Date/Type/Reason Admit Date/Time Dec 15, 2016 at 11:20 Type of Consultation: Pulm/CCM 24 HR Interval Summary Free Text/Dictation Now n ICU - better resp status - con't to treat agitation - no CP now. ROS: No fever, no chills, no nausea, no vomiting, no diarrhea/constipation No recent weight changes No chest pain, no PND, no orthopnea No dizziness, blurred vision No thirst, no heat or cold intolerance (disoriented) Exam/Review of Systems Vital Signs Vitals Vital Signs Date Time Temp Pulse Resp B/P Pulse Ox O2 Delivery O2 Flow Rate FiO2 12/17/16 15:30 99 100 12/17/16 15:00 74 19 114/61 12/17/16 12:00 98.5 High Flow 12/17/16 08:00 15.0 Intake and Output 12/16/16 12/16/16 12/17/16 15:00 23:00 07:00 Intake Total 380 ml 490 ml Balance 380 ml 490 ml Exam General: WN/WD/NAD, AOx 1 disoriented HEENT: Unicetric/atraumatic/EOMI (does not follow commands) NECK: JVD elevated, no thyromegaly Lymph: no lymphadenopathy HEART: regular with no S3, II/ systolic murmur at apex LUNGS: Coarse sounds ABD: soft, NT, ND, +BS : Intact Neuro: non focal SKIN: chronic changes EXT: trace edema Results Result Diagram: 12/17/16 0450 12/17/16 0450 Results 24 hrs Laboratory Tests Test 12/16/16 17:23 12/16/16 20:11 12/16/16 22:23 12/17/16 01:04 Bedside Glucose 127 77 139 160 Test 12/17/16 04:50 12/17/16 05:00 12/17/16 05:16 12/17/16 07:00 White Blood Count 5.7 # Red Blood Count 3.34 L Hemoglobin 9.0 L Hematocrit 28.7 L Mean Corpuscular Volume 85.9 Mean Corpuscular Hemoglobin 26.9 L Mean Corpuscular Hemoglobin Concent 31.4 L Red Cell Distribution Width 13.3 Platelet Count 157 Mean Platelet Volume 12.7 H Neutrophils % 78.0 H Lymphocytes % 15.7 Monocytes % 5.8 Eosinophils % 0.0 Basophils % 0.2 Nucleated Red Blood Cells % 0.0 Neutrophils # 4.5 Lymphocytes # 0.9 Monocytes # 0.3 Eosinophils # 0.0 Basophils # 0.0 Nucleated Red Blood Cells # 0.0 Sodium Level 129 L Potassium Level 3.0 L Chloride Level 100 Carbon Dioxide Level 26 Anion Gap 6 L Blood Urea Nitrogen 29 H Creatinine 2.41 H Glucose Level 162 Lactic Acid Level 0.9 Calcium Level 6.8 L Phosphorus Level 4.1 Magnesium Level 1.9 Total Bilirubin 0.0 L Direct Bilirubin 0.00 Indirect Bilirubin 0.0 Aspartate Amino Transf (AST/SGOT) 56 #H Alanine Aminotransferase (ALT/SGPT) 30 Alkaline Phosphatase 74 Total Protein 4.8 L Albumin 2.0 L Globulin 2.80 Albumin/Globulin Ratio 0.71 Blood Gas Specimen Source Blood arterial Blood arterial Arterial Blood Date Drawn 12/17/2016 4:35:41 AM 12/17/2016 9:40:35 AM Arterial Blood pH (Temp corrected) 7.438 7.412 Arterial Blood pCO2 (Temp correct) 34.3 L 35.5 Arterial Blood pO2 (Temp corrected) 53.6 *L 65.2 L Arterial Blood HCO3 22.7 22.1 Arterial Blood Base Excess -1.1 -2.1 Arterial Blood Oxygen Saturation 88.5 L 92.3 L Leobardo Test N/A N/A Arterial Blood Gas Puncture Site LB LB Arterial Blood Carboxyhemoglobin 0.3 0.2 Arterial Blood Methemoglobin 0.3 0.3 Blood Gas A-a O2 Differential 625.1 H 612.3 H Oxyhemoglobin Percent 88.0 L 91.8 L Total Hemoglobin 9.8 L 10.4 L Blood Gas Temperature 37.0 37.0 Blood Gas Modality MASK - NRB HIGH FLOW NASAL CANNULA FiO2 100.0 100.0 Blood Gas Critical Value Read Back Agapito VANCE RN Blood Gas Notified Whom TREMAINE OVIEDO Blood Gas Notified Time 12/17/2016 5:04:41 AM 12/17/2016 9:50:08 AM Bedside Glucose 170 Test 12/17/16 08:04 12/17/16 10:00 12/17/16 12:21 12/17/16 13:42 Bedside Glucose 156 137 Urine Color YELLOW Urine Clarity SLIGHTLY CLOUDY Urine pH 5.5 Urine Specific Ruffin >=1.030 H Urine Ketones NEGATIVE Urine Nitrite NEGATIVE Urine Bilirubin NEGATIVE Urine Urobilinogen 0.2 E.U./dL Urine Leukocyte Esterase NEGATIVE Urine Microscopic RBC 2-5 Urine Microscopic WBC 0-2 Urine Bacteria OCCASIONAL Urine Coarse Granular Casts FEW Urine Hemoglobin 2+ H Urine Random Creatinine 174.67 Urine Random Sodium 15 L Urine Glucose 0.1% H Urine Total Protein Urine Opiates Screen Positive Urine Barbiturates Negative Urine Amphetamines Screen Negative Urine Benzodiazepines Screen Negative Urine Cocaine Screen Positive Urine Cannabinoids Negative Blood Gas Specimen Source Blood arterial Arterial Blood Date Drawn 12/17/2016 1:50:06 PM Arterial Blood pH (Temp corrected) 7.433 Arterial Blood pCO2 (Temp correct) 35.9 Arterial Blood pO2 (Temp corrected) 69.7 L Arterial Blood HCO3 23.5 Arterial Blood Base Excess -0.5 Arterial Blood Oxygen Saturation 93.7 L Leobardo Test N/A Arterial Blood Gas Puncture Site LB Arterial Blood Carboxyhemoglobin 0.2 Arterial Blood Methemoglobin 0.3 Blood Gas A-a O2 Differential 607.4 H Oxyhemoglobin Percent 93.2 Total Hemoglobin 10.0 L Blood Gas Temperature 37.0 Blood Gas Actual Respiration Rate 28 Blood Gas Modality HIGH FLOW FiO2 100.0 Blood Gas Notified Whom JAS VANG Blood Gas Notified Time 12/17/2016 2:04:05 PM Medications Medications Current Medications Insulin Glargine (Lantus) 33 unit DAILY@20 SC ; Start 12/15/16 at 20:00 Ondansetron HCl (Zofran Inj) 4 mg Q6H PRN IV NAUSEA AND/OR VOMITING; Start at 13:00 Acetaminophen (Tylenol Tab) 650 mg Q6H PRN PO PAIN LEVEL 1-3 OR FEVER Last administered on 12/16/16 16:51; Admin Dose 650 MG; Start 12/15/16 at 13:00 Acetaminophen/ Hydrocodone Bitart ([place] (5/325)) 1 tab Q6H PRN PO PAIN LEVEL 4 -6 Last administered on 12/15/16 22:08; Admin Dose 1 TAB; Start 12/15/16 at 13: 00 Morphine Sulfate (morphine) 2 mg Q4H PRN IV PAIN LEVEL 7-10; Start 12/15/16 at 13:00 Magnesium Hydroxide (Milk Of Mag) 30 ml DAILY PRN PO CONSTIPATION; Start at 13:00 Bisacodyl (Dulcolax) 5 mg DAILY PRN PO CONSTIPATION; Start 12/15/16 at 13:00 Famotidine (Pepcid) 20 mg Q12 PO Last administered on 12/17/16 08:17; Admin Dose 20 MG; Start 12/15/16 at 21:00 Hydralazine HCl (Apresoline) 10 mg Q6H PRN IV SBP>160; Start 12/15/16 at 13:00 Amlodipine Besylate (Norvasc) 10 mg DAILY PO Last administered on 12/17/16 08: 18; Admin Dose 10 MG; Start 12/16/16 at 09:00 Aspirin (Aspirin) 325 mg DAILY PO Last administered on 12/17/16 08:17; Admin Dose 325 MG; Start 12/16/16 at 09:00 Atorvastatin Calcium (Lipitor) 80 mg QHS PO Last administered on 12/16/16 22: 12; Admin Dose 80 MG; Start 12/15/16 at 21:00 Carvedilol 25 mg 25 mg BID PO Last administered on 12/17/16 08:18; Admin Dose 25 MG; Start 12/15/16 at 21:00 Ceftriaxone Sodium 50 ml @ 100 mls/hr Q24H IVPB Last administered on 15:00; Admin Dose 100 MLS/HR; Start 12/15/16 at 15:00 Azithromycin (Zithromax 500mg/ NS (Pmx)) 250 ml @ 250 mls/hr Q24H IVPB Last administered on 12/17/16 14:14; Admin Dose 250 MLS/HR; Start 12/15/16 at 14:00 Heparin Sodium (Porcine) (Heparin (5000 Units/0.5 ml)) 5,000 unit BID SC Last administered on 12/17/16 08:19; Admin Dose 5,000 UNIT; Start 12/15/16 at 21:00 Miscellaneous Information 1 ea NOTE XX ; Start 12/15/16 at 14:00 Glucose (Glutose) 15 gm Q15M PRN PO DECREASED GLUCOSE; Start 12/15/16 at 14:00 Glucose (Glutose) 22.5 gm Q15M PRN PO DECREASED GLUCOSE; Start 12/15/16 at 14: 00 Dextrose (D50w Syringe) 25 ml Q15M PRN IV DECREASED GLUCOSE; Start 12/15/16 at 14:00 Dextrose (D50w Syringe) 50 ml Q15M PRN IV DECREASED GLUCOSE; Start 12/15/16 at 14:00 Glucagon (Glucagen) 1 mg Q15M PRN IM DECREASED GLUCOSE; Start 12/15/16 at 14:00 Glucose (Glutose) 15 gm Q15M PRN BUCCAL DECREASED GLUCOSE; Start 12/15/16 at 14 :00 Hydralazine HCl (Apresoline) 25 mg Q8 PO Last administered on 12/17/16 06:21; Admin Dose 25 MG; Start 12/15/16 at 22:00 Cholecalciferol 1000 unit 1,000 unit DAILY PO Last administered on 12/17/16 08 :17; Admin Dose 1,000 UNIT; Start 12/16/16 at 09:00 Ferric Sodium Gluconate Complex/ Sodium Chloride (Ferrlecit/NS) 110 ml @ 100 mls/hr Q24H IVPB Last administered on 12/16/16 19:02; Admin Dose 100 MLS/HR; Start 12/16/16 at 17:00; Stop 12/18/16 at 18:05 Insulin Aspart NOVOLOG *MILD* ALGORI... Q4 SC Last administered on 12/17/16 08 :21; Admin Dose 1 UNIT; Start 12/16/16 at 21:00 Dextrose/Sodium Chloride 1,000 ml @ 50 mls/hr Q20H IV Last administered on 08:31; Admin Dose 50 MLS/HR; Start 12/17/16 at 08:30 Methylprednisolone Sodium Succinate/ Dextrose (Solu-Medrol/D5W) 50 ml @ 100 mls /hr BID IV Last administered on 12/17/16 14:13; Admin Dose 100 MLS/HR; Start 12/17/16 at 13:30; Stop 12/19/16 at 21:29 DELIA BILLY MD Dec 17, 2016 16:34
[2016-12-17] MEDS: SOD FERRIC GLUC COMPLX 125 MG in SOD CHLORIDE 0.9% 100 ML IVPB SCH (17:17)
[2016-12-17] MEDS: ACETAMINOPHEN 325 MG TAB PO PRN (18:16)
--- NOTE | 2016-12-17 19:07 | CONS ---
Date/Time of Note Date/Time of Note DATE: 12/17/16 TIME: 19:07 Assessment/Plan Assessment/Plan Chief Complaint/Hosp Course ID PROGRESS NOTE TOTAL ABX DAY # 1 => Ceftriaxone + Azith 24H INTERVAL SUMMARY * VSS, NAD, no fevers * CXR 12/17/16 IMPRESSION: Significant increase in bilateral left greater than right infiltrates. * CT ABD 12/16/16: IMPRESSION: * 1. There are patchy alveolar and nodular infiltrates in the lungs (some of which are peripheral) with peribronchial thickening suspicious for pneumonia. There is associated small pleural effusions. Follow-up imaging is recommended to ensure clearing. Consider cryptogenic organizing pneumonia. * 2. Inhomogeneity of the thyroid gland suggesting small thyroid nodules for which no additional follow-up is recommended unless clinically indicated. * 3. Enlarged mediastinal lymph nodes as described. * 4. Hepatomegaly. * 5. Atherosclerotic vascular disease. there is 6 enlarged main pulmonary artery outflow tract measuring up to 3.9 cm transverse. Findings suspicious for pulmonary arterial hypertension. * 6. Mucosal thickening of small bowel loops in the left upper abdomen. A small bowel enteritis might present this fashion. * 7. Osteoarthritis of the thoracic and lumbosacral spine. * 8. Anasarca. * 9. Small bilateral inguinal hernias containing fat. PHYSICAL EXAMINATION: GENERAL: VSS, NAD -> Morbid obese M, no fevers HEENT: ETT/OGT secure NECK: Supple, trach-> midline CHEST: Equal chest rise bilaterally, without dyspnea on observation / Vented HEART: Pulse RRR - NSR on tele ABDOMEN: Soft, obese EXTREMITIES: Warm w/generalized dependent edema SKIN: Warm, dry ID ASSESSMENT: 41 yo Morbid Obese M admitted with: 1. Sepsis secondary to underlying community-acquired pneumonia. * DDx ?Silent Aspiration PNA - risk factors obesity ?CHRISTINE ? GERD * DDx Opportunistic vs cryptogenic organizing pneumonia => Cocci serology sent 2. Acute hypoxic respiratory failure=> Stable on supplemental O2 via NC * PNA (+) * Pulmonary HTN per CT ?COPD * ?Obesity hypoventilation syndrome 3. Elevated troponins. Most probably a type 2 event from underlying sepsis and underlying acute kidney injury. 4. Acute kidney injury. 5. Type 2 diabetes mellitus.-> Poorly controlled 6. Dyslipidemia. Continue statins. 7. Essential hypertension. . 8. Microcytic, hypochromic anemia. Etiology unclear. Iron panel showing iron deficiency MRSA Nares => Pending (-)HIV Screen INVASIVES: * PIV ABX ALLERGIES: Vanco IV CURRENT ABX: TOTAL ABX DAY # 1 => Ceftriaxone + Azith ID RECOMMENDATIONS: 1. Continue current ABX over the weekend and monitor clinical status 2. Watch WBC on IV steroids 3. Respiratory culture ordered 4. f/u on micro + serologies sent . Problems: Consultation Date/Type/Reason Admit Date/Time Dec 15, 2016 at 11:20 Initial Consult Date Type of Consultation: ID Exam/Review of Systems Vital Signs Vitals Vital Signs Date Time Temp Pulse Resp B/P Pulse Ox O2 Delivery O2 Flow Rate FiO2 12/17/16 18:10 100.3 72 30 119/65 97 High Flow 12/17/16 15:30 100 12/17/16 08:00 15.0 Intake and Output 12/16/16 12/16/16 12/17/16 15:00 23:00 07:00 Intake Total 380 ml 490 ml Balance 380 ml 490 ml Results Result Diagram: 12/17/16 0450 12/17/16 0450 Results 24 hrs Laboratory Tests Test 12/16/16 20:11 12/16/16 22:23 12/17/16 01:04 12/17/16 04:50 Bedside Glucose 77 139 160 White Blood Count 5.7 # Red Blood Count 3.34 L Hemoglobin 9.0 L Hematocrit 28.7 L Mean Corpuscular Volume 85.9 Mean Corpuscular Hemoglobin 26.9 L Mean Corpuscular Hemoglobin Concent 31.4 L Red Cell Distribution Width 13.3 Platelet Count 157 Mean Platelet Volume 12.7 H Neutrophils % 78.0 H Lymphocytes % 15.7 Monocytes % 5.8 Eosinophils % 0.0 Basophils % 0.2 Nucleated Red Blood Cells % 0.0 Neutrophils # 4.5 Lymphocytes # 0.9 Monocytes # 0.3 Eosinophils # 0.0 Basophils # 0.0 Nucleated Red Blood Cells # 0.0 Sodium Level 129 L Potassium Level 3.0 L Chloride Level 100 Carbon Dioxide Level 26 Anion Gap 6 L Blood Urea Nitrogen 29 H Creatinine 2.41 H Glucose Level 162 Lactic Acid Level 0.9 Calcium Level 6.8 L Phosphorus Level 4.1 Magnesium Level 1.9 Total Bilirubin 0.0 L Direct Bilirubin 0.00 Indirect Bilirubin 0.0 Aspartate Amino Transf (AST/SGOT) 56 #H Alanine Aminotransferase (ALT/SGPT) 30 Alkaline Phosphatase 74 Total Protein 4.8 L Albumin 2.0 L Globulin 2.80 Albumin/Globulin Ratio 0.71 Test 12/17/16 05:00 12/17/16 05:16 12/17/16 07:00 12/17/16 08:04 Blood Gas Specimen Source Blood arterial Blood arterial Arterial Blood Date Drawn 12/17/2016 4:35:41 AM 12/17/2016 9:40:35 AM Arterial Blood pH (Temp corrected) 7.438 7.412 Arterial Blood pCO2 (Temp correct) 34.3 L 35.5 Arterial Blood pO2 (Temp corrected) 53.6 *L 65.2 L Arterial Blood HCO3 22.7 22.1 Arterial Blood Base Excess -1.1 -2.1 Arterial Blood Oxygen Saturation 88.5 L 92.3 L Leobardo Test N/A N/A Arterial Blood Gas Puncture Site LB LB Arterial Blood Carboxyhemoglobin 0.3 0.2 Arterial Blood Methemoglobin 0.3 0.3 Blood Gas A-a O2 Differential 625.1 H 612.3 H Oxyhemoglobin Percent 88.0 L 91.8 L Total Hemoglobin 9.8 L 10.4 L Blood Gas Temperature 37.0 37.0 Blood Gas Modality MASK - NRB HIGH FLOW NASAL CANNULA FiO2 100.0 100.0 Blood Gas Critical Value Read Back Agapito VANCE RN Blood Gas Notified Whom TREMAINE OVIEDO Blood Gas Notified Time 12/17/2016 5:04:41 AM 12/17/2016 9:50:08 AM Bedside Glucose 170 156 Test 12/17/16 10:00 12/17/16 12:21 12/17/16 13:42 12/17/16 14:25 Urine Color YELLOW Urine Clarity SLIGHTLY CLOUDY Urine pH 5.5 Urine Specific Bena >=1.030 H Urine Ketones NEGATIVE Urine Nitrite NEGATIVE Urine Bilirubin NEGATIVE Urine Urobilinogen 0.2 E.U./dL Urine Leukocyte Esterase NEGATIVE Urine Microscopic RBC 2-5 Urine Microscopic WBC 0-2 Urine Bacteria OCCASIONAL Urine Coarse Granular Casts FEW Urine Hemoglobin 2+ H Urine Random Creatinine 174.67 Urine Random Sodium 15 L Urine Glucose 0.1% H Urine Total Protein Urine Opiates Screen Positive Urine Barbiturates Negative Urine Amphetamines Screen Negative Urine Benzodiazepines Screen Negative Urine Cocaine Screen Positive Urine Cannabinoids Negative Bedside Glucose 137 Blood Gas Specimen Source Blood arterial Arterial Blood Date Drawn 12/17/2016 1:50:06 PM Arterial Blood pH (Temp corrected) 7.433 Arterial Blood pCO2 (Temp correct) 35.9 Arterial Blood pO2 (Temp corrected) 69.7 L Arterial Blood HCO3 23.5 Arterial Blood Base Excess -0.5 Arterial Blood Oxygen Saturation 93.7 L Leobardo Test N/A Arterial Blood Gas Puncture Site LB Arterial Blood Carboxyhemoglobin 0.2 Arterial Blood Methemoglobin 0.3 Blood Gas A-a O2 Differential 607.4 H Oxyhemoglobin Percent 93.2 Total Hemoglobin 10.0 L Blood Gas Temperature 37.0 Blood Gas Actual Respiration Rate 28 Blood Gas Modality HIGH FLOW FiO2 100.0 Blood Gas Notified Whom JAS RT Blood Gas Notified Time 12/17/2016 2:04:05 PM HIV (1&2) Antibody NEGATIVE Test 12/17/16 18:05 Bedside Glucose 183 Medications Medications Current Medications Insulin Glargine (Lantus) 33 unit DAILY@20 SC ; Start 12/15/16 at 20:00 Ondansetron HCl (Zofran Inj) 4 mg Q6H PRN IV NAUSEA AND/OR VOMITING; Start at 13:00 Acetaminophen (Tylenol Tab) 650 mg Q6H PRN PO PAIN LEVEL 1-3 OR FEVER Last administered on 12/17/16 18:16; Admin Dose 650 MG; Start 12/15/16 at 13:00 Acetaminophen/ Hydrocodone Bitart ([place] (5/325)) 1 tab Q6H PRN PO PAIN LEVEL 4 -6 Last administered on 12/15/16 22:08; Admin Dose 1 TAB; Start 12/15/16 at 13: 00 Morphine Sulfate (morphine) 2 mg Q4H PRN IV PAIN LEVEL 7-10; Start 12/15/16 at 13:00 Magnesium Hydroxide (Milk Of Mag) 30 ml DAILY PRN PO CONSTIPATION; Start at 13:00 Bisacodyl (Dulcolax) 5 mg DAILY PRN PO CONSTIPATION; Start 12/15/16 at 13:00 Famotidine (Pepcid) 20 mg Q12 PO Last administered on 12/17/16 08:17; Admin Dose 20 MG; Start 12/15/16 at 21:00 Hydralazine HCl (Apresoline) 10 mg Q6H PRN IV SBP>160; Start 12/15/16 at 13:00 Amlodipine Besylate (Norvasc) 10 mg DAILY PO Last administered on 12/17/16 08: 18; Admin Dose 10 MG; Start 12/16/16 at 09:00 Aspirin (Aspirin) 325 mg DAILY PO Last administered on 12/17/16 08:17; Admin Dose 325 MG; Start 12/16/16 at 09:00 Atorvastatin Calcium (Lipitor) 80 mg QHS PO Last administered on 12/16/16 22: 12; Admin Dose 80 MG; Start 12/15/16 at 21:00 Carvedilol 25 mg 25 mg BID PO Last administered on 12/17/16 08:18; Admin Dose 25 MG; Start 12/15/16 at 21:00 Ceftriaxone Sodium 50 ml @ 100 mls/hr Q24H IVPB Last administered on 15:00; Admin Dose 100 MLS/HR; Start 12/15/16 at 15:00 Azithromycin (Zithromax 500mg/ NS (Pmx)) 250 ml @ 250 mls/hr Q24H IVPB Last administered on 12/17/16 14:14; Admin Dose 250 MLS/HR; Start 12/15/16 at 14:00 Heparin Sodium (Porcine) (Heparin (5000 Units/0.5 ml)) 5,000 unit BID SC Last administered on 12/17/16 08:19; Admin Dose 5,000 UNIT; Start 12/15/16 at 21:00 Miscellaneous Information 1 ea NOTE XX ; Start 12/15/16 at 14:00 Glucose (Glutose) 15 gm Q15M PRN PO DECREASED GLUCOSE; Start 12/15/16 at 14:00 Glucose (Glutose) 22.5 gm Q15M PRN PO DECREASED GLUCOSE; Start 12/15/16 at 14: 00 Dextrose (D50w Syringe) 25 ml Q15M PRN IV DECREASED GLUCOSE; Start 12/15/16 at 14:00 Dextrose (D50w Syringe) 50 ml Q15M PRN IV DECREASED GLUCOSE; Start 12/15/16 at 14:00 Glucagon (Glucagen) 1 mg Q15M PRN IM DECREASED GLUCOSE; Start 12/15/16 at 14:00 Glucose (Glutose) 15 gm Q15M PRN BUCCAL DECREASED GLUCOSE; Start 12/15/16 at 14 :00 Hydralazine HCl (Apresoline) 25 mg Q8 PO Last administered on 12/17/16 06:21; Admin Dose 25 MG; Start 12/15/16 at 22:00 Cholecalciferol 1000 unit 1,000 unit DAILY PO Last administered on 12/17/16 08 :17; Admin Dose 1,000 UNIT; Start 12/16/16 at 09:00 Ferric Sodium Gluconate Complex/ Sodium Chloride (Ferrlecit/NS) 110 ml @ 100 mls/hr Q24H IVPB Last administered on 12/17/16 17:17; Admin Dose 100 MLS/HR; Start 12/16/16 at 17:00; Stop 12/18/16 at 18:05 Insulin Aspart NOVOLOG *MILD* ALGORI... Q4 SC Last administered on 12/17/16 18 :07; Admin Dose 2 UNIT; Start 12/16/16 at 21:00 Dextrose/Sodium Chloride 1,000 ml @ 50 mls/hr Q20H IV Last administered on 08:31; Admin Dose 50 MLS/HR; Start 12/17/16 at 08:30 Methylprednisolone Sodium Succinate/ Dextrose (Solu-Medrol/D5W) 50 ml @ 100 mls /hr BID IV Last administered on 12/17/16 14:13; Admin Dose 100 MLS/HR; Start 12/17/16 at 13:30; Stop 12/19/16 at 21:29 MAGDALENO SIMMONS NP Dec 17, 2016 19:07
[2016-12-17] MEDS: ATORVASTATIN 80 MG TAB PO SCH (20:45)
[2016-12-17] MEDS: INSULIN GLARGINE [LANtus] 3 ML PEN SC SCH (20:51)
[2016-12-18] VITALS (99 sets, daily range): BP systolic 70–141; BP diastolic 49–100; PULSE 51–149; RESP 9–39
[2016-12-18] MEDS: INSULIN ASPART [NOVOLOG] 3 ML PEN SC SCH ×7 (00:30→17:00)
[2016-12-18] MEDS: LEVALBUTEROL (NEB) 0.63 MG/3 ML AMP HHN SCH (01:35)
[2016-12-18] MEDS ORDERED: SOD CHLORIDE 0.9% 500 ML IV ONE (03:00)
[2016-12-18] MEDS ORDERED: ROCURONIUM 50 MG INJ IV ONE (03:00)
[2016-12-18] MEDS ORDERED: ETOMIDATE 20 MG INJ IV ONE (03:00)
--- NOTE | 2016-12-18 03:49 | RADRPT ---
PROCEDURE: XR Chest. CLINICAL INDICATION: New endotracheal intubation and nasogastric tube placement. TECHNIQUE: Single frontal view of the chest. COMPARISON: Plain film examinations of the chest dated 12/17/2016. FINDINGS: Endotracheal intubation is seen with tip about 10 mm above the manolo. Nasogastric tube in place wi th tip and sideport in the proximal stomach. Cardiomegaly with substantially stable dense patchy air space disease, given differences in lung inf lation and radiographic technique over interval since 12/17/2016. No signs of pleural fluid or pneumothorax are seen. The osseous structures and soft tissues are unre markable. IMPRESSION: 1. New endotracheal intubation is seen with tip about 10 mm above the manolo. 2. New nasogastric tube in place with tip and sideport in the proximal stomach. 3. No significant change and dense bilateral pneumonias. RPTAT: [facility] Physician Lyudmila Date Time Electronically viewed and signed by Physician Lyudmila on 12/18/2016 03:49 RS/
--- NOTE | 2016-12-18 03:54 | QN ---
Documentation Comment Was called to room [address] ICU by Dr. Neida Trujillo for intubation of a desaturating patient. ET intubation note: Bag mask ventilation was used and oxygenation of 100%. All airway was used. RSI was used with 100 mg of rocuronium and 20 mg of etomidate. Initial attempt was made with a Mac 4 blade is used to 7.5 ET tube. Patient's airway was anterior and he had a large tongue. No cords able to visualized the epiglottis was not able to be raised significantly. Patient's oxygenation remained good with bag mask ventilation. [place]on scope was then used with size 4 blade to intubate the patient using a size 8 ET tube. Oxygenation was 100% after the procedure. There was good color change and there is visualization through the cords. Patient to the procedure well or no complications. SUSANNA OLIVER DO Dec 18, 2016 03:54
[2016-12-18] MEDS ORDERED: DILTIAZEM 25 MG INJ IV ONE ×2 (04:00)
[2016-12-18] MEDS: FENTAnyl (DRIP) 1000 mcg/100mL 100 ML IV SCH ×2 (04:14→19:48)
[2016-12-18] MEDS: MIDAZOLAM (DRIP) 50 mg/50 mL 50 ML IV SCH ×3 (04:15→22:16)
--- NOTE | 2016-12-18 04:48 | EN ---
Date/Time of Note Date/Time of Note DATE: 12/18/16 TIME: 04:14 Event Note Medicine Medicine Event Note AGITATION AND RESPIRATORY DISTRESS: Patient's RN notified me earlier that patient was agitated and his heart rate had sped up into the 130s-140s and his EKG showed atrial fibrillation with rapid ventricular response. Also, his blood pressure was down to 76/54. She mentioned that she had left a message for the director enterprise sales and had not heard back yet, so she wanted to know what I wanted to do. He was not intubated his ejection fraction was 65% and he is 41 years old. Among his medications are hydralazine and Coreg. I asked that a 500 cc bolus of normal saline be given stat and that I would come and evaluate the patient. Shortly after my arrival upstairs, it became apparent that patient's heart rate was not coming down below the mid 120s and and the patient was agitated and had pulled out his IV, and the nurses were working to restart another one, but that he was combative and use foul language. He did have soft restraints on his upper extremities. He was on high flow oxygen via nasal cannula. Patient had received Ativan 1 mg in divided doses earlier this evening, but it seems that it did not help him feel less agitated. His respiratory rate was 26-28. It seemed that patient would tire out at his current respiratory rate and since we do not feel that he will tolerate the CPAP we asked Dr. Macedo could to come up from the emergency room and intubate the patient. The intubation was difficult and was finally accomplished with the use of a glide scope. See Dr. Macedo's note. Meanwhile, patient did maintain his blood pressure and it came up to 131/82 at 3 :45 AM. At that time her heart rate ranged from 135-154, respiratory sessions 16, oxygen saturation 79% but the RNs were trying to get a good reading on the monitor by using his earlobe and shortly thereafter her his oxygen saturation came up. Patient never appeared cyanotic. At this time, patient will be started on a fentanyl drip and his blood pressure and pulse will be closely monitored. He will then be given a loading dose of Cardizem, 25 mg, and a drip starting at 5 mics per minute. Titrate to maximal effect keeping the patient's blood pressure above 100 preferably above 110. A chest x-ray was recently taken. The OG tube and the NG tube are both in place. If patient becomes to light on the fentanyl drip, then we will add a Versed drip. Patient is lying in bed, calm with no acute distress. I updated patient's , in U[place], regarding the episodes that just transpired. I allowed her an opportunity to ask questions and she did not have any additional questions for me. His RN has no more questions. Our plan is to sedate him further as the rocuronium will be wearing off at any time and patient is agitated enough without having a tube in his throat. We will then make sure he has enough pressure support so that when we start him on a fentanyl drip he will be easier to manage. WU WHITLEY DO Dec 18, 2016 04:48
[2016-12-18 04:49] LABS: Allen Test ACCEPTAB; MODE VENT - AC
[2016-12-18 05:04] LABS: AADO2 Arterial 572.7 mmHg (7.0-24.0); Arterial Base Excess -8.9 mmol/L (-3.0-3); Arterial COHb 0.2 % (0.0-3.0); Arterial Fraction of Oxyhgb 92.2 % (93.0-99.0); Arterial HCO3 20.7 mmol/L (22.0-26.0); Arterial MetHb 0.2 % (0.0-1.5); Arterial Total Hemglobin 13.9 g/dl (12.0-18.0)
[2016-12-18] MEDS ORDERED: NORepinephrine 8MG/250 ML (PMX 250 ML ONE (05:50)
[2016-12-18] MEDS ORDERED: NORepinephrine 8MG/250 ML (PMX 250 ML IV SCH (06:00)
[2016-12-18] MEDS ORDERED: NA BICARBONATE 8.4% 50 ML SYG ONE (06:27)
[2016-12-18 06:30] LABS: ADD SCAN DIFF NO
[2016-12-18] MEDS ORDERED: NA BICARBONATE 8.4% 50 ML SYG IV ONE (06:30)
[2016-12-18 06:34] LABS: BASOPHILS % 0.2 % (0.0-2.0); EOSINOPHILS % 0.1 % (0.0-7.0); HEMATOCRIT 30.8 % (42.0-52.0); LYMPHOCYTES # 1.1 10^3/ul (0.8-2.9); LYMPHOCYTES % 12.4 % (15.0-51.0); MEAN CORPUSCULAR HEMOGLOBIN 27.6 pg (29.0-33.0); MEAN CORPUSCULAR HGB CONC 32.5 g/dl (32.0-37.0); MEAN CORPUSCULAR VOLUME 85.1 fl (82.0-101.0); MEAN PLATELET VOLUME 12.8 fl (7.4-10.4); MONOCYTE # 0.3 10^3/ul (0.3-0.9); MONOCYTES % 3.2 % (0.0-11.0); NEUTROPHIL # 7.4 10^3/ul (1.6-7.5); NEUTROPHILS % 83.6 % (39.0-77.0); PLATELET COUNT 243 10^3/UL (140-415); RED BLOOD COUNT 3.62 10^6/ul (4.70-6.10); WHITE BLOOD COUNT 8.9 10^3/ul (4.8-10.8)
[2016-12-18 06:46] LABS: ALBUMIN 1.8 g/dl (3.3-4.9)
[2016-12-18 06:47] LABS: POTASSIUM 3.8 mmol/L (3.5-5.1)
[2016-12-18 06:48] LABS: CREATININE 2.91 mg/dl (0.61-1.24)
[2016-12-18 06:49] LABS: INR 1.11; PROTIME 14.3 Sec (12.2-14.2); PT RATIO 1.1
[2016-12-18 06:49] LABS: ALBUMIN/GLOBULIN RATIO 0.72; TOTAL PROTEIN 4.3 g/dl (6.1-8.1)
[2016-12-18 07:08] LABS: C-REACTIVE PROTEIN 24.5 mg/dl (0.0-0.9)
[2016-12-18] MEDS: LEVALBUTEROL (HFA) 15 GM INHALER INH SCH ×3 (07:18→19:35)
[2016-12-18 07:43] LABS: PARTIAL THROMBOPLASTIN TIME 73.4 Sec (25.0-35.0)
[2016-12-18 07:48] LABS: PHOSPHORUS 8.5 mg/dl (2.5-4.9)
--- NOTE | 2016-12-18 08:07 | RADRPT ---
PROCEDURE: XR Chest. CLINICAL INDICATION: vent TECHNIQUE: Single frontal view of the chest was obtained. COMPARISON: Chest x-ray from 12/18/2016 FINDINGS: The endotracheal tube and enteric tube are unchanged in position. There are stable low lung volumes and mild cardiomegaly. Patchy opacities are again noted diffusely which are not significantly changed. There is no significant pleural effusion or pneumothorax. IMPRESSION: No significant interval change. RPTAT: EE Physician Jj Date Time Electronically viewed and signed by Physician Jj on 12/18/2016 08:07 RA/
[2016-12-18] MEDS: ASPIRIN 325 MG TAB PO SCH (08:56)
[2016-12-18] MEDS: SOD CHLORIDE 0.9% 1,000 ML IV SCH (08:56)
[2016-12-18] MEDS: CHOLECALCIFEROL 1,000 UNIT TAB PO SCH (08:56)
[2016-12-18] MEDS: METHYLPRED. NA SUCC 250 MG in DEXTROSE 5% 50 ML IV SCH ×2 (08:56→20:52)
[2016-12-18] MEDS: FAMOTIDINE 20 MG TAB PO SCH ×2 (08:56→20:52)
[2016-12-18] MEDS: AMLODIPINE 10 MG TAB PO SCH (08:57)
[2016-12-18] MEDS ORDERED: NPH, HUMAN INSULIN ISOPHANE 3ML VIAL SC SCH (09:00)
[2016-12-18] MEDS ORDERED: LIDOCAINE 1% (MPF) 5 ML VIAL SC ONE ×2 (09:00→16:00)
[2016-12-18] MEDS: HEPARIN 5,000 UNIT/0.5 ML VIAL SC SCH ×2 (09:01→21:09)
--- NOTE | 2016-12-18 09:38 | PN ---
Date/Time of Note Date/Time of Note DATE: 12/18/16 TIME: 09:37 Assessment/Plan VTE Prophylaxis VTE Prophylaxis Intervention: heparin Lines/Catheters IV Catheter Type (from [facility]): Peripheral IV Urinary Cath still in place: Yes Reason Cath still needed: other (indicate) Assessment/Plan Chief Complaint/Hosp Course 1. Sepsis secondary to underlying community-acquired pneumonia. The patient's CT scan of the abdomen showing mucosal thickening of small bowel loops in the left upper abdomen [possible enteritis]. A small bowel enteritis might present this fashion. Currently has underlying septic shock. The patient on appropriate antibiotics. Pancultures negative so far. The patient being followed by infectious disease. 2. Acute hypoxic respiratory failure. Most probably secondary to underlying pneumonia versus others. Patient got intubated on 12/18/2016. Continue inhaled bronchodilators. Pulmonology following the patient. 3. Elevated troponins. Most probably a type 2 event from underlying sepsis and underlying acute kidney injury. Cardiology following. 4. Acute kidney injury. The patient had a normal creatinine of 1.00 on 2015. The patient's current acute kidney injury could be most probably secondary to dehydration from persistent vomiting. The patient's nephrotoxic drugs will be held at this time. Being followed by nephrology. 5. Type 2 diabetes mellitus. Uncontrolled. A1C is high (send out). The patient will be maintained on sliding scale insulin along with basal insulin. Will also start the patient on NPH insulin because the patient is getting high- dose steroids. 6. Dyslipidemia. Continue statins. 7. Essential hypertension. Currently hypotensive. On Levophed for blood pressure support. 8. Hypocalcemia. Probably secondary to underlying hypoalbuminemia. 9. Microcytic, hypochromic anemia. Etiology unclear. Iron panel showing iron deficiency. Continue iron supplements. 10. Morbid obesity. BMI of 39.8 kg/m. Weight reduction advised. 11. Fluids, electrolytes, and nutrition. Carbohydrate controlled, low- cholesterol diet. 12. DVT prophylaxis. Subcutaneous heparin. 13. Gastrointestinal prophylaxis. Histamine 2 receptor blockers. 14. Plan. Continue antibiotics. Continue ventilator support. Wean off pressors as tolerated. Pulmonology suggesting possible granulomatosis with polyangiitis (GPA) or microscopic polyangiitis (MPA), provided the patient's rapid progress in pulmonary infiltrates. Pulmonary recommended rheumatology evaluation. Will obtain rheumatology consult. Case discussed with Dr. Payan. Critical care time: 45 minutes. Problems: Subjective 24 Hr Interval Summary Free Text/Dictation The patient got intubated last night because of worsening respiratory distress. The patient also had an episode of A. fib with RVR converted to sinus rhythm with IV Cardizem. On Levophed for blood pressure support. Exam/Review of Systems Vital Signs Vitals Vital Signs Date Time Temp Pulse Resp B/P Pulse Ox O2 Delivery O2 Flow Rate FiO2 12/18/16 08:00 55 12/18/16 05:21 18 96 100 12/18/16 01:00 119/74 High Flow 12/17/16 20:00 98.7 12/17/16 08:00 15.0 Intake and Output 12/17/16 12/17/16 12/18/16 15:00 23:00 07:00 Output Total 120 ml 240 ml Balance -120 ml -240 ml Exam GENERAL: This is a morbidly obese male lying in bed in moderate respiratory distress. HEENT: Head normocephalic and atraumatic. Eyes: Anicteric sclerae. Conjunctivae clear. ENT: Nasal septum is midline. Oral mucosa is dry. NECK: Short with increased neck circumference. RESPIRATORY: Bilaterally diminished breath sounds. A few rhonchi heard, especially on the left side posteriorly. Expiratory wheezing. Use of accessory muscles of respiration. CARDIAC: Regular rate and rhythm. S1, S2 heard. ABDOMEN: Soft, nontender and nondistended. Bowel sounds positive in all 4 quadrants. GENITOURINARY: Deferred. EXTREMITIES: No cyanosis, no clubbing. B/L LE edema. Pedal pulses palpable. Status post left great toe amputation. NEUROLOGIC: The patient is awake, alert and oriented. Cranial nerves are grossly intact. Results Result Diagram: 12/18/16 0531 12/18/16 0722 Results 24 hrs Laboratory Tests Test 12/17/16 10:00 12/17/16 12:21 12/17/16 13:42 12/17/16 14:25 Urine Color YELLOW Urine Clarity SLIGHTLY CLOUDY Urine pH 5.5 Urine Specific Wil[place] >=1.030 H Urine Ketones NEGATIVE Urine Nitrite NEGATIVE Urine Bilirubin NEGATIVE Urine Urobilinogen 0.2 E.U./dL Urine Leukocyte Esterase NEGATIVE Urine Microscopic RBC 2-5 Urine Microscopic WBC 0-2 Urine Bacteria OCCASIONAL Urine Coarse Granular Casts FEW Urine Hemoglobin 2+ H Urine Random Creatinine 174.67 Urine Random Sodium 15 L Urine Glucose 0.1% H Urine Total Protein Urine Opiates Screen Positive Urine Barbiturates Negative Urine Amphetamines Screen Negative Urine Benzodiazepines Screen Negative Urine Cocaine Screen Positive Urine Cannabinoids Negative Bedside Glucose 137 Blood Gas Specimen Source Blood arterial Arterial Blood Date Drawn 12/17/2016 1:50:06 PM Arterial Blood pH (Temp corrected) 7.433 Arterial Blood pCO2 (Temp correct) 35.9 Arterial Blood pO2 (Temp corrected) 69.7 L Arterial Blood HCO3 23.5 Arterial Blood Base Excess -0.5 Arterial Blood Oxygen Saturation 93.7 L Leobardo Test N/A Arterial Blood Gas Puncture Site LB Arterial Blood Carboxyhemoglobin 0.2 Arterial Blood Methemoglobin 0.3 Blood Gas A-a O2 Differential 607.4 H Oxyhemoglobin Percent 93.2 Total Hemoglobin 10.0 L Blood Gas Temperature 37.0 Blood Gas Actual Respiration Rate 28 Blood Gas Modality HIGH FLOW FiO2 100.0 Blood Gas Notified Whom JAS RT Blood Gas Notified Time 12/17/2016 2:04:05 PM HIV (1&2) Antibody NEGATIVE Test 12/17/16 18:05 12/17/16 20:48 12/18/16 00:25 12/18/16 05:00 Bedside Glucose 183 251 H 323 H Blood Gas Specimen Source Blood arterial Arterial Blood Date Drawn 12/18/2016 4:40:08 AM Arterial Blood pH (Temp corrected) 7.150 *L Arterial Blood pCO2 (Temp correct) 60.7 H Arterial Blood pO2 (Temp corrected) 79.6 L Arterial Blood HCO3 20.7 L Arterial Blood Base Excess -8.9 L Arterial Blood Oxygen Saturation 92.6 L Leobardo Test ACCEPTAB Arterial Blood Gas Puncture Site Right Radial Arterial Blood Carboxyhemoglobin 0.2 Arterial Blood Methemoglobin 0.2 Blood Gas A-a O2 Differential 572.7 H Oxyhemoglobin Percent 92.2 L Total Hemoglobin 13.9 Blood Gas Temperature 37.0 Blood Gas Respiration Rate 16.0 Blood Gas Actual Respiration Rate 16 Blood Gas Modality VENT - AC FiO2 100.0 Blood Gas Tidal Volume 500.0 Blood Gas Low PEEP Setting 8.0 Blood Gas Inspiratory Pressure 27.0 Blood Gas Critical Value Read Back TING RN Blood Gas Notified Whom AAMIR Blood Gas Notified Time 12/18/2016 5:04:23 AM Test 12/18/16 05:09 12/18/16 05:31 12/18/16 05:37 12/18/16 07:08 Bedside Glucose 333 H 383 H White Blood Count 8.9 # Red Blood Count 3.62 L Hemoglobin 10.0 L Hematocrit 30.8 L Mean Corpuscular Volume 85.1 Mean Corpuscular Hemoglobin 27.6 L Mean Corpuscular Hemoglobin Concent 32.5 Red Cell Distribution Width 13.0 Platelet Count 243 # Mean Platelet Volume 12.8 H Neutrophils % 83.6 H Lymphocytes % 12.4 L Monocytes % 3.2 Eosinophils % 0.1 Basophils % 0.2 Nucleated Red Blood Cells % 0.0 Neutrophils # 7.4 Lymphocytes # 1.1 Monocytes # 0.3 Eosinophils # 0.0 Basophils # 0.0 Nucleated Red Blood Cells # 0.0 Sodium Level 135 Potassium Level 3.8 Chloride Level 105 Carbon Dioxide Level 20 L Anion Gap 14 # Blood Urea Nitrogen 42 #H Creatinine 2.91 H Glucose Level 722 #*H Lactic Acid Level 1.2 Calcium Level 6.0 L Phosphorus Level 8.5 #H Magnesium Level 2.0 Total Bilirubin 0.0 L Direct Bilirubin 0.00 Indirect Bilirubin 0.0 Aspartate Amino Transf (AST/SGOT) 56 H Alanine Aminotransferase (ALT/SGPT) 32 Alkaline Phosphatase 60 C-Reactive Protein 24.5 H Total Protein 4.3 L Albumin 1.8 L Globulin 2.50 Albumin/Globulin Ratio 0.72 Prothrombin Time 14.3 H Prothrombin Time Ratio 1.1 INR International Normalized Ratio 1.11 Activated Partial Thromboplast Time 73.4 *H Test 12/18/16 07:22 12/18/16 08:55 Glucose Level 357 #H Bedside Glucose 354 H Medications Medications Current Medications Insulin Glargine (Lantus) 33 unit DAILY@20 SC Last administered on 12/17/16 20 :51; Admin Dose 33 UNIT; Start 12/15/16 at 20:00 Ondansetron HCl (Zofran Inj) 4 mg Q6H PRN IV NAUSEA AND/OR VOMITING; Start at 13:00 Acetaminophen (Tylenol Tab) 650 mg Q6H PRN PO PAIN LEVEL 1-3 OR FEVER Last administered on 12/17/16 18:16; Admin Dose 650 MG; Start 12/15/16 at 13:00 Acetaminophen/ Hydrocodone Bitart (Searcy (5/325)) 1 tab Q6H PRN PO PAIN LEVEL 4 -6 Last administered on 12/15/16 22:08; Admin Dose 1 TAB; Start 12/15/16 at 13: 00 Morphine Sulfate (morphine) 2 mg Q4H PRN IV PAIN LEVEL 7-10; Start 12/15/16 at 13:00 Magnesium Hydroxide (Milk Of Mag) 30 ml DAILY PRN PO CONSTIPATION; Start at 13:00 Bisacodyl (Dulcolax) 5 mg DAILY PRN PO CONSTIPATION; Start 12/15/16 at 13:00 Famotidine (Pepcid) 20 mg Q12 PO Last administered on 12/18/16 08:56; Admin Dose 20 MG; Start 12/15/16 at 21:00 Hydralazine HCl (Apresoline) 10 mg Q6H PRN IV SBP>160; Start 12/15/16 at 13:00 Amlodipine Besylate (Norvasc) 10 mg DAILY PO Last administered on 12/17/16 08: 18; Admin Dose 10 MG; Start 12/16/16 at 09:00 Aspirin (Aspirin) 325 mg DAILY PO Last administered on 12/18/16 08:56; Admin Dose 325 MG; Start 12/16/16 at 09:00 Atorvastatin Calcium (Lipitor) 80 mg QHS PO Last administered on 12/17/16 20: 45; Admin Dose 80 MG; Start 12/15/16 at 21:00 Carvedilol 25 mg 25 mg BID PO Last administered on 12/17/16 20:45; Admin Dose 25 MG; Start 12/15/16 at 21:00 Ceftriaxone Sodium 50 ml @ 100 mls/hr Q24H IVPB Last administered on 15:00; Admin Dose 100 MLS/HR; Start 12/15/16 at 15:00 Azithromycin (Zithromax 500mg/ NS (Pmx)) 250 ml @ 250 mls/hr Q24H IVPB Last administered on 12/17/16 14:14; Admin Dose 250 MLS/HR; Start 12/15/16 at 14:00 Heparin Sodium (Porcine) (Heparin (5000 Units/0.5 ml)) 5,000 unit BID SC Last administered on 12/18/16 09:01; Admin Dose 5,000 UNIT; Start 12/15/16 at 21:00 Miscellaneous Information 1 ea NOTE XX ; Start 12/15/16 at 14:00 Glucose (Glutose) 15 gm Q15M PRN PO DECREASED GLUCOSE; Start 12/15/16 at 14:00 Glucose (Glutose) 22.5 gm Q15M PRN PO DECREASED GLUCOSE; Start 12/15/16 at 14: 00 Dextrose (D50w Syringe) 25 ml Q15M PRN IV DECREASED GLUCOSE; Start 12/15/16 at 14:00 Dextrose (D50w Syringe) 50 ml Q15M PRN IV DECREASED GLUCOSE; Start 12/15/16 at 14:00 Glucagon (Glucagen) 1 mg Q15M PRN IM DECREASED GLUCOSE; Start 12/15/16 at 14:00 Glucose (Glutose) 15 gm Q15M PRN BUCCAL DECREASED GLUCOSE; Start 12/15/16 at 14 :00 Hydralazine HCl (Apresoline) 25 mg Q8 PO Last administered on 12/17/16 21:23; Admin Dose 25 MG; Start 12/15/16 at 22:00 Cholecalciferol 1000 unit 1,000 unit DAILY PO Last administered on 12/18/16 08 :56; Admin Dose 1,000 UNIT; Start 12/16/16 at 09:00 Ferric Sodium Gluconate Complex 125 mg/Sodium Chloride 110 ml @ 100 mls/hr Q24H IVPB Last administered on 12/17/16 17:17; Admin Dose 100 MLS/HR; Start at 17:00; Stop 12/18/16 at 18:05 Methylprednisolone Sodium Succinate 250 mg/Dextrose 50 ml @ 100 mls/hr BID IV Last administered on 12/18/16 08:56; Admin Dose 100 MLS/HR; Start 12/17/16 at 13:30; Stop 12/19/16 at 21:29 Midazolam HCl 50 ml @ 1 mls/hr TITRATE IV Last administered on 12/18/16 04:15 ; Admin Dose 1 MLS/HR; Start 12/18/16 at 03:30 Fentanyl 100 ml @ 2.5 mls/hr TITRATE IV Last administered on 12/18/16 04:14; Admin Dose 2.5 MLS/HR; Start 12/18/16 at 03:30 Norepinephrine 250 ml @ 1.875 mls/ hr TITRATE IV Last administered on 06:01; Admin Dose 9.375 MLS/HR; Start 12/18/16 at 06:00 Norepinephrine/ Dextrose (Levophed/D5W) 500 ml @ 1.87 mls/hr TITRATE IV ; Start 12/18/16 at 06:00 Insulin Human NPH 20 unit 20 unit BID SC Last administered on 12/18/16 09:14; Admin Dose 20 UNIT; Start 12/18/16 at 09:00; Stop 12/19/16 at 21:01 Sodium Chloride (NS) 1,000 ml @ 75 mls/hr [id number] IV Last administered on 12/18 08:56; Admin Dose 75 MLS/HR; Start 12/18/16 at 09:00 Insulin Aspart (Novolog Insulin Pen) NOVOLOG *MODERATE* ALGORITHM Q4 SC ; Start 12/18/16 at 09:30 GEORGI CORBETT NP Dec 18, 2016 09:38
[2016-12-18 10:20] LABS: AADO2 Arterial 576.1 mmHg (7.0-24.0); Allen Test ACCEPTAB; Arterial Base Excess -3.4 mmol/L (-3.0-3); Arterial COHb 0.2 % (0.0-3.0); Arterial Fraction of Oxyhgb 96.5 % (93.0-99.0); Arterial HCO3 21.7 mmol/L (22.0-26.0); Arterial MetHb 0.2 % (0.0-1.5); Arterial Total Hemglobin 11.3 g/dl (12.0-18.0); MODE VENT - AC
--- NOTE | 2016-12-18 10:34 | PN ---
DATE: 12/18/2016 SUBJECTIVE: The patient is critically ill was intubated overnight, placed on pressor support. The patient had no reports of hemoptysis, hematemesis or hematochezia. The patient is currently on FIO2 100%. No other events noted. OBJECTIVE: VITAL SIGNS: Blood pressure is 119/74, respirations 27, pulse 61, temperature 98.6. I'S AND O'S: The patient 814 with 360 in. HEENT: Head is normocephalic. NECK: Supple. HEART: Tachycardic. LUNGS: Show diminished breath sounds at the base. Present rhonchi. ABDOMEN: Soft, nontender to palpation. EXTREMITIES: Negative for clubbing, cyanosis. Trace edema. DERMATOLOGIC: No rashes. MUSCULOSKELETAL: No joint effusions. NEUROLOGIC: No change in exam. MEDICATIONS: Patient's medications have been reviewed. LABORATORY DATA: Sodium 135, potassium 2.8, chloride 105, BUN is 42, creatinine 2.91, glucose 383, calcium 6.0, phosphorus 8.5. White count 8.9, hemoglobin 10.0, hematocrit 30.8, platelet count is 2 43. ABG shows pH 7.10, pCO2 of 60. Urinalysis shows coarse granular casts, FENa less 1%. Urine to xicology shows positive cocaine. IMAGING: Chest x-ray shows no significant change opacities. ASSESSMENT AND PLAN: 1. Oliguric acute kidney injury with previous baseline creatinine 1.0 mg/dL. Etiology of acute kid sierra injury is secondary to acute tubular necrosis due to septic acute kidney injury, ischemic hypope rfusion, nephrotoxicity due to cocaine use. The patient currently is in injury phase of ATN. Creat inine continues to decline, urinary output is marginal. At this point, we will continue current maegan atment plan, supportive care, renally dose all medications. There is no immediate need for renal re placement therapy at this time. We will continue to monitor closely. 2. Mineral bone disorder. The patient is markedly hyperphosphatemic with phosphorus 8.5 secondary to acute kidney injury. We will continue to observe closely. We will start patient on phosphate bi nders. If phosphorus level should worsen, we will start patient on renal replacement therapy. 3. Respiratory acidosis. The patient has a pH of 7.150, pCO2 of 60. The patient is currently on 1 00% FIO2, vent settings have been adjusted. We will repeat an ABG level. 4. Anemia. Monitor hemoglobin and hematocrit levels. 5. Ventilator-dependent respiratory failure. Etiology secondary to bilateral pneumonia. Continue current medical management. Vent settings have been reviewed. ABG been reviewed. Follow up with ghulam iyer. 6. Septic shock. Etiology secondary to pneumonia. Continue current treatment plan. Continue anti biotic therapy, continue IV fluids. Will increase rate 75 mL an hour. Continue pressor support. W e will follow up with infectious disease. 7. Elevated troponin likely non-STEMI type 2. Continue to monitor. 8. Diabetes. Continue current insulin regimen. 9. Polysubstance abuse. 10. Encephalopathy. Etiology is toxic metabolic. Continue to monitor. Please note I spent over 40 minutes of critical care time with this patient. Dictated By: LUIS JOSHI/SUNDEEP Conf#: [id number] DID#: [id number]
--- NOTE | 2016-12-18 10:55 | CONS ---
Date/Time of Note Date/Time of Note DATE: 12/18/16 TIME: 10:48 Assessment/Plan Assessment/Plan Chief Complaint/Hosp Course IMPRESSION: 1. Positive troponin, assess significance.-no sig uptrend 2. Abnormal electrocardiogram with ST depressions with tachycardia and positive troponin, likely indicative of coronary artery disease.-improved ecg findings with improved HR 3. Hypertension, uncontrolled. 4. Dyslipidemia. 5. Diabetes mellitus. 6. Fevers to 104 documented here in the hospital.-still having low grade 7. Renal failure.-acute on chronic 8. Lower extremity edema, assess for congestive heart failure. 9. Hypokalemia. 10. Nausea and vomiting. 11. Chest pain with cough. 12.Resp failure s/p intubation Recc: -Tele -serial ecg's -Continue asa/statin -Continue abx's and f/u cx data -Continue bronchodilators and steroids. -Follow volume status closely Problems: Consultation Date/Type/Reason Admit Date/Time Dec 15, 2016 at 11:20 Initial Consult Date 12/15/2016 Type of Consultation: Cardiology Reason for Consultation positive troponin Referring Provider: LEXII REED Exam/Review of Systems Vital Signs Vitals Vital Signs Date Time Temp Pulse Resp B/P Pulse Ox O2 Delivery O2 Flow Rate FiO2 12/18/16 08:40 56 24 100 100 12/18/16 01:00 119/74 High Flow 12/17/16 20:00 98.7 12/17/16 08:00 15.0 Intake and Output 12/17/16 12/17/16 12/18/16 15:00 23:00 07:00 Intake Total 50 ml 34.375 ml Output Total 120 ml 240 ml Balance -70 ml -205.625 ml Exam Review of Systems: CONSTITUTIONAL: No fevers, chills. PULMONARY: intubated CARDIOVASCULAR: No obvioua chest pain/palpitations GASTROINTESTINAL: No nausea/vomiting. GENITOURINARY: No hematuria/dysuria. MUSCULOSKELETAL: No obvioua myagias/arthalgias. PSYCHIATRIC: No documented depression. NEUROLOGIC: sedated Constitutional: other (sedated) Psych: no complaints ENMT: intubated Neck: jvd (9 cm water), supple Respiratory: diminished breath sounds (at bases/B) Cardiovascular: regular rate and rhythm Gastrointestinal: non-tender, soft Musculoskeletal: muscle tone (normal) Extremities: edema (trace/B) Neurological: other (sedated) Results Result Diagram: 12/18/16 0531 12/18/16 0722 Results 24 hrs Laboratory Tests Test 12/17/16 12:21 12/17/16 13:42 12/17/16 14:25 12/17/16 18:05 Bedside Glucose 137 183 Blood Gas Specimen Source Blood arterial Arterial Blood Date Drawn 12/17/2016 1:50:06 PM Arterial Blood pH (Temp corrected) 7.433 Arterial Blood pCO2 (Temp correct) 35.9 Arterial Blood pO2 (Temp corrected) 69.7 L Arterial Blood HCO3 23.5 Arterial Blood Base Excess -0.5 Arterial Blood Oxygen Saturation 93.7 L Leobardo Test N/A Arterial Blood Gas Puncture Site LB Arterial Blood Carboxyhemoglobin 0.2 Arterial Blood Methemoglobin 0.3 Blood Gas A-a O2 Differential 607.4 H Oxyhemoglobin Percent 93.2 Total Hemoglobin 10.0 L Blood Gas Temperature 37.0 Blood Gas Actual Respiration Rate 28 Blood Gas Modality HIGH FLOW FiO2 100.0 Blood Gas Notified Whom JAS RT Blood Gas Notified Time 12/17/2016 2:04:05 PM HIV (1&2) Antibody NEGATIVE Test 12/17/16 20:48 12/18/16 00:25 12/18/16 05:00 12/18/16 05:09 Bedside Glucose 251 H 323 H 333 H Blood Gas Specimen Source Blood arterial Arterial Blood Date Drawn 12/18/2016 4:40:08 AM Arterial Blood pH (Temp corrected) 7.150 *L Arterial Blood pCO2 (Temp correct) 60.7 H Arterial Blood pO2 (Temp corrected) 79.6 L Arterial Blood HCO3 20.7 L Arterial Blood Base Excess -8.9 L Arterial Blood Oxygen Saturation 92.6 L Leobardo Test ACCEPTAB Arterial Blood Gas Puncture Site Right Radial Arterial Blood Carboxyhemoglobin 0.2 Arterial Blood Methemoglobin 0.2 Blood Gas A-a O2 Differential 572.7 H Oxyhemoglobin Percent 92.2 L Total Hemoglobin 13.9 Blood Gas Temperature 37.0 Blood Gas Respiration Rate 16.0 Blood Gas Actual Respiration Rate 16 Blood Gas Modality VENT - AC FiO2 100.0 Blood Gas Tidal Volume 500.0 Blood Gas Low PEEP Setting 8.0 Blood Gas Inspiratory Pressure 27.0 Blood Gas Critical Value Read Back LEAHAYA RN Blood Gas Notified Whom MA Blood Gas Notified Time 12/18/2016 5:04:23 AM Test 12/18/16 05:31 12/18/16 05:37 12/18/16 07:08 12/18/16 07:22 White Blood Count 8.9 # Red Blood Count 3.62 L Hemoglobin 10.0 L Hematocrit 30.8 L Mean Corpuscular Volume 85.1 Mean Corpuscular Hemoglobin 27.6 L Mean Corpuscular Hemoglobin Concent 32.5 Red Cell Distribution Width 13.0 Platelet Count 243 # Mean Platelet Volume 12.8 H Neutrophils % 83.6 H Lymphocytes % 12.4 L Monocytes % 3.2 Eosinophils % 0.1 Basophils % 0.2 Nucleated Red Blood Cells % 0.0 Neutrophils # 7.4 Lymphocytes # 1.1 Monocytes # 0.3 Eosinophils # 0.0 Basophils # 0.0 Nucleated Red Blood Cells # 0.0 Erythrocyte Sedimentation Rate 90.0 H Sodium Level 135 Potassium Level 3.8 Chloride Level 105 Carbon Dioxide Level 20 L Anion Gap 14 # Blood Urea Nitrogen 42 #H Creatinine 2.91 H Glucose Level 722 #*H 357 #H Lactic Acid Level 1.2 Calcium Level 6.0 L Phosphorus Level 8.5 #H Magnesium Level 2.0 Total Bilirubin 0.0 L Direct Bilirubin 0.00 Indirect Bilirubin 0.0 Aspartate Amino Transf (AST/SGOT) 56 H Alanine Aminotransferase (ALT/SGPT) 32 Alkaline Phosphatase 60 C-Reactive Protein 24.5 H Total Protein 4.3 L Albumin 1.8 L Globulin 2.50 Albumin/Globulin Ratio 0.72 Prothrombin Time 14.3 H Prothrombin Time Ratio 1.1 INR International Normalized Ratio 1.11 Activated Partial Thromboplast Time 73.4 *H Bedside Glucose 383 H Test 12/18/16 08:55 12/18/16 09:00 Bedside Glucose 354 H Blood Gas Specimen Source Blood arterial Arterial Blood Date Drawn 12/18/2016 10:05:32 AM Arterial Blood pH (Temp corrected) 7.363 Arterial Blood pCO2 (Temp correct) 39.0 Arterial Blood pO2 (Temp corrected) 97.9 Arterial Blood HCO3 21.7 L Arterial Blood Base Excess -3.4 L Arterial Blood Oxygen Saturation 96.9 Leobardo Test ACCEPTAB Arterial Blood Gas Puncture Site Right Radial Arterial Blood Carboxyhemoglobin 0.2 Arterial Blood Methemoglobin 0.2 Blood Gas A-a O2 Differential 576.1 H Oxyhemoglobin Percent 96.5 Total Hemoglobin 11.3 L Blood Gas Temperature 37.0 Blood Gas Respiration Rate 24.0 Blood Gas Actual Respiration Rate 26 Blood Gas Modality VENT - AC FiO2 100.0 Blood Gas Tidal Volume 500.0 Blood Gas Low PEEP Setting 8.0 Blood Gas Notified Whom CHELSEA VANG Blood Gas Notified Time 12/18/2016 10:19:44 AM Medications Medications Current Medications Insulin Glargine (Lantus) 33 unit DAILY@20 SC Last administered on 12/17/16 20 :51; Admin Dose 33 UNIT; Start 12/15/16 at 20:00 Ondansetron HCl (Zofran Inj) 4 mg Q6H PRN IV NAUSEA AND/OR VOMITING; Start at 13:00 Acetaminophen (Tylenol Tab) 650 mg Q6H PRN PO PAIN LEVEL 1-3 OR FEVER Last administered on 12/17/16 18:16; Admin Dose 650 MG; Start 12/15/16 at 13:00 Acetaminophen/ Hydrocodone Bitart (Treichlers (5/325)) 1 tab Q6H PRN PO PAIN LEVEL 4 -6 Last administered on 12/15/16 22:08; Admin Dose 1 TAB; Start 12/15/16 at 13: 00 Morphine Sulfate (morphine) 2 mg Q4H PRN IV PAIN LEVEL 7-10; Start 12/15/16 at 13:00 Magnesium Hydroxide (Milk Of Mag) 30 ml DAILY PRN PO CONSTIPATION; Start at 13:00 Bisacodyl (Dulcolax) 5 mg DAILY PRN PO CONSTIPATION; Start 12/15/16 at 13:00 Famotidine (Pepcid) 20 mg Q12 PO Last administered on 12/18/16 08:56; Admin Dose 20 MG; Start 12/15/16 at 21:00 Hydralazine HCl (Apresoline) 10 mg Q6H PRN IV SBP>160; Start 12/15/16 at 13:00 Amlodipine Besylate (Norvasc) 10 mg DAILY PO Last administered on 12/17/16 08: 18; Admin Dose 10 MG; Start 12/16/16 at 09:00 Aspirin (Aspirin) 325 mg DAILY PO Last administered on 12/18/16 08:56; Admin Dose 325 MG; Start 12/16/16 at 09:00 Atorvastatin Calcium (Lipitor) 80 mg QHS PO Last administered on 12/17/16 20: 45; Admin Dose 80 MG; Start 12/15/16 at 21:00 Carvedilol 25 mg 25 mg BID PO Last administered on 12/17/16 20:45; Admin Dose 25 MG; Start 12/15/16 at 21:00 Ceftriaxone Sodium 50 ml @ 100 mls/hr Q24H IVPB Last administered on 15:00; Admin Dose 100 MLS/HR; Start 12/15/16 at 15:00 Azithromycin (Zithromax 500mg/ NS (Pmx)) 250 ml @ 250 mls/hr Q24H IVPB Last administered on 12/17/16 14:14; Admin Dose 250 MLS/HR; Start 12/15/16 at 14:00 Heparin Sodium (Porcine) (Heparin (5000 Units/0.5 ml)) 5,000 unit BID SC Last administered on 12/18/16 09:01; Admin Dose 5,000 UNIT; Start 12/15/16 at 21:00 Miscellaneous Information 1 ea NOTE XX ; Start 12/15/16 at 14:00 Glucose (Glutose) 15 gm Q15M PRN PO DECREASED GLUCOSE; Start 12/15/16 at 14:00 Glucose (Glutose) 22.5 gm Q15M PRN PO DECREASED GLUCOSE; Start 12/15/16 at 14: 00 Dextrose (D50w Syringe) 25 ml Q15M PRN IV DECREASED GLUCOSE; Start 12/15/16 at 14:00 Dextrose (D50w Syringe) 50 ml Q15M PRN IV DECREASED GLUCOSE; Start 12/15/16 at 14:00 Glucagon (Glucagen) 1 mg Q15M PRN IM DECREASED GLUCOSE; Start 12/15/16 at 14:00 Glucose (Glutose) 15 gm Q15M PRN BUCCAL DECREASED GLUCOSE; Start 12/15/16 at 14 :00 Hydralazine HCl (Apresoline) 25 mg Q8 PO Last administered on 12/17/16 21:23; Admin Dose 25 MG; Start 12/15/16 at 22:00 Cholecalciferol 1000 unit 1,000 unit DAILY PO Last administered on 12/18/16 08 :56; Admin Dose 1,000 UNIT; Start 12/16/16 at 09:00 Ferric Sodium Gluconate Complex 125 mg/Sodium Chloride 110 ml @ 100 mls/hr Q24H IVPB Last administered on 12/17/16 17:17; Admin Dose 100 MLS/HR; Start at 17:00; Stop 12/18/16 at 18:05 Methylprednisolone Sodium Succinate 250 mg/Dextrose 50 ml @ 100 mls/hr BID IV Last administered on 12/18/16 08:56; Admin Dose 100 MLS/HR; Start 12/17/16 at 13:30; Stop 12/19/16 at 21:29 Midazolam HCl 50 ml @ 1 mls/hr TITRATE IV Last administered on 12/18/16 04:15 ; Admin Dose 1 MLS/HR; Start 12/18/16 at 03:30 Fentanyl 100 ml @ 2.5 mls/hr TITRATE IV Last administered on 12/18/16 04:14; Admin Dose 2.5 MLS/HR; Start 12/18/16 at 03:30 Norepinephrine 250 ml @ 1.875 mls/ hr TITRATE IV Last administered on 06:01; Admin Dose 9.375 MLS/HR; Start 12/18/16 at 06:00 Norepinephrine/ Dextrose (Levophed/D5W) 500 ml @ 1.87 mls/hr TITRATE IV ; Start 12/18/16 at 06:00 Insulin Human NPH 20 unit 20 unit BID SC Last administered on 12/18/16 09:14; Admin Dose 20 UNIT; Start 12/18/16 at 09:00; Stop 12/19/16 at 21:01 Sodium Chloride (NS) 1,000 ml @ 75 mls/hr [id number] IV Last administered on 12/18 08:56; Admin Dose 75 MLS/HR; Start 12/18/16 at 09:00 Insulin Aspart (Novolog Insulin Pen) NOVOLOG *MODERATE* ALGORITHM Q4 SC ; Start 12/18/16 at 09:30 VI ADAMES Dec 18, 2016 10:55
--- NOTE | 2016-12-18 11:15 | CONS ---
Date/Time of Note Date/Time of Note DATE: 12/18/16 TIME: 11:10 Consult Date/Type/Reason Admit Date/Time Dec 15, 2016 at 11:20 Initial Consult Date Type of Consultation: pulmonary ICU Ordering Provider: LEXII REED Patient remains intubated sedated on mechanical ventilation FiO2 increased to 100% Required emergent intubation this morning Complicated by atrial fibrillation with rapid ventricular response now bradycardia Objective Vital Signs Date Time Temp Pulse Resp B/P Pulse Ox O2 Delivery O2 Flow Rate FiO2 12/18/16 08:40 56 24 100 100 12/18/16 01:00 119/74 High Flow 12/17/16 20:00 98.7 12/17/16 08:00 15.0 Intake and Output 12/17/16 12/17/16 12/18/16 15:00 23:00 07:00 Intake Total 50 ml 34.375 ml Output Total 120 ml 240 ml Balance -70 ml -205.625 ml Exam PHYSICAL EXAMINATION GENERAL: Young gentleman intubated sedated on mechanical ventilation VITAL SIGNS: see below. HEENT: Pupils equal, round, and reactive to light. CARDIAC: S1, S2, no added sounds or murmurs CHEST: Diminished air entry bilaterally. ABDOMEN: Mildly distended. Bowel sounds present. EXTREMITIES: No cyanosis, clubbing edema +1 NEUROLOGIC: Unable to assess Results/Medications Result Diagram: 12/18/16 0531 12/18/16 0722 Results 24 hrs Laboratory Tests Test 12/17/16 12:21 12/17/16 13:42 12/17/16 14:25 12/17/16 18:05 Bedside Glucose 137 183 Blood Gas Specimen Source Blood arterial Arterial Blood Date Drawn 12/17/2016 1:50:06 PM Arterial Blood pH (Temp corrected) 7.433 Arterial Blood pCO2 (Temp correct) 35.9 Arterial Blood pO2 (Temp corrected) 69.7 L Arterial Blood HCO3 23.5 Arterial Blood Base Excess -0.5 Arterial Blood Oxygen Saturation 93.7 L Leobardo Test N/A Arterial Blood Gas Puncture Site LB Arterial Blood Carboxyhemoglobin 0.2 Arterial Blood Methemoglobin 0.3 Blood Gas A-a O2 Differential 607.4 H Oxyhemoglobin Percent 93.2 Total Hemoglobin 10.0 L Blood Gas Temperature 37.0 Blood Gas Actual Respiration Rate 28 Blood Gas Modality HIGH FLOW FiO2 100.0 Blood Gas Notified Whom JAS VANG Blood Gas Notified Time 12/17/2016 2:04:05 PM HIV (1&2) Antibody NEGATIVE Test 12/17/16 20:48 12/18/16 00:25 12/18/16 05:00 12/18/16 05:09 Bedside Glucose 251 H 323 H 333 H Blood Gas Specimen Source Blood arterial Arterial Blood Date Drawn 12/18/2016 4:40:08 AM Arterial Blood pH (Temp corrected) 7.150 *L Arterial Blood pCO2 (Temp correct) 60.7 H Arterial Blood pO2 (Temp corrected) 79.6 L Arterial Blood HCO3 20.7 L Arterial Blood Base Excess -8.9 L Arterial Blood Oxygen Saturation 92.6 L Leobardo Test ACCEPTAB Arterial Blood Gas Puncture Site Right Radial Arterial Blood Carboxyhemoglobin 0.2 Arterial Blood Methemoglobin 0.2 Blood Gas A-a O2 Differential 572.7 H Oxyhemoglobin Percent 92.2 L Total Hemoglobin 13.9 Blood Gas Temperature 37.0 Blood Gas Respiration Rate 16.0 Blood Gas Actual Respiration Rate 16 Blood Gas Modality VENT - AC FiO2 100.0 Blood Gas Tidal Volume 500.0 Blood Gas Low PEEP Setting 8.0 Blood Gas Inspiratory Pressure 27.0 Blood Gas Critical Value Read Back TING RN Blood Gas Notified Whom MA Blood Gas Notified Time 12/18/2016 5:04:23 AM Test 12/18/16 05:31 12/18/16 05:37 12/18/16 07:08 12/18/16 07:22 White Blood Count 8.9 # Red Blood Count 3.62 L Hemoglobin 10.0 L Hematocrit 30.8 L Mean Corpuscular Volume 85.1 Mean Corpuscular Hemoglobin 27.6 L Mean Corpuscular Hemoglobin Concent 32.5 Red Cell Distribution Width 13.0 Platelet Count 243 # Mean Platelet Volume 12.8 H Neutrophils % 83.6 H Lymphocytes % 12.4 L Monocytes % 3.2 Eosinophils % 0.1 Basophils % 0.2 Nucleated Red Blood Cells % 0.0 Neutrophils # 7.4 Lymphocytes # 1.1 Monocytes # 0.3 Eosinophils # 0.0 Basophils # 0.0 Nucleated Red Blood Cells # 0.0 Erythrocyte Sedimentation Rate 90.0 H Sodium Level 135 Potassium Level 3.8 Chloride Level 105 Carbon Dioxide Level 20 L Anion Gap 14 # Blood Urea Nitrogen 42 #H Creatinine 2.91 H Glucose Level 722 #*H 357 #H Lactic Acid Level 1.2 Calcium Level 6.0 L Phosphorus Level 8.5 #H Magnesium Level 2.0 Total Bilirubin 0.0 L Direct Bilirubin 0.00 Indirect Bilirubin 0.0 Aspartate Amino Transf (AST/SGOT) 56 H Alanine Aminotransferase (ALT/SGPT) 32 Alkaline Phosphatase 60 C-Reactive Protein 24.5 H Total Protein 4.3 L Albumin 1.8 L Globulin 2.50 Albumin/Globulin Ratio 0.72 Prothrombin Time 14.3 H Prothrombin Time Ratio 1.1 INR International Normalized Ratio 1.11 Activated Partial Thromboplast Time 73.4 *H Bedside Glucose 383 H Test 12/18/16 08:55 12/18/16 09:00 Bedside Glucose 354 H Blood Gas Specimen Source Blood arterial Arterial Blood Date Drawn 12/18/2016 10:05:32 AM Arterial Blood pH (Temp corrected) 7.363 Arterial Blood pCO2 (Temp correct) 39.0 Arterial Blood pO2 (Temp corrected) 97.9 Arterial Blood HCO3 21.7 L Arterial Blood Base Excess -3.4 L Arterial Blood Oxygen Saturation 96.9 Leobardo Test ACCEPTAB Arterial Blood Gas Puncture Site Right Radial Arterial Blood Carboxyhemoglobin 0.2 Arterial Blood Methemoglobin 0.2 Blood Gas A-a O2 Differential 576.1 H Oxyhemoglobin Percent 96.5 Total Hemoglobin 11.3 L Blood Gas Temperature 37.0 Blood Gas Respiration Rate 24.0 Blood Gas Actual Respiration Rate 26 Blood Gas Modality VENT - AC FiO2 100.0 Blood Gas Tidal Volume 500.0 Blood Gas Low PEEP Setting 8.0 Blood Gas Notified Whom CHELSEA VANG Blood Gas Notified Time 12/18/2016 10:19:44 AM Medications Current Medications Insulin Glargine (Lantus) 33 unit DAILY@20 SC Last administered on 12/17/16 20 :51; Admin Dose 33 UNIT; Start 12/15/16 at 20:00 Ondansetron HCl (Zofran Inj) 4 mg Q6H PRN IV NAUSEA AND/OR VOMITING; Start at 13:00 Acetaminophen (Tylenol Tab) 650 mg Q6H PRN PO PAIN LEVEL 1-3 OR FEVER Last administered on 12/17/16 18:16; Admin Dose 650 MG; Start 12/15/16 at 13:00 Acetaminophen/ Hydrocodone Bitart ([place] (5/325)) 1 tab Q6H PRN PO PAIN LEVEL 4 -6 Last administered on 12/15/16 22:08; Admin Dose 1 TAB; Start 12/15/16 at 13: 00 Morphine Sulfate (morphine) 2 mg Q4H PRN IV PAIN LEVEL 7-10; Start 12/15/16 at 13:00 Magnesium Hydroxide (Milk Of Mag) 30 ml DAILY PRN PO CONSTIPATION; Start at 13:00 Bisacodyl (Dulcolax) 5 mg DAILY PRN PO CONSTIPATION; Start 12/15/16 at 13:00 Famotidine (Pepcid) 20 mg Q12 PO Last administered on 12/18/16 08:56; Admin Dose 20 MG; Start 12/15/16 at 21:00 Hydralazine HCl (Apresoline) 10 mg Q6H PRN IV SBP>160; Start 12/15/16 at 13:00 Amlodipine Besylate (Norvasc) 10 mg DAILY PO Last administered on 12/17/16 08: 18; Admin Dose 10 MG; Start 12/16/16 at 09:00 Aspirin (Aspirin) 325 mg DAILY PO Last administered on 12/18/16 08:56; Admin Dose 325 MG; Start 12/16/16 at 09:00 Atorvastatin Calcium (Lipitor) 80 mg QHS PO Last administered on 12/17/16 20: 45; Admin Dose 80 MG; Start 12/15/16 at 21:00 Carvedilol 25 mg 25 mg BID PO Last administered on 12/17/16 20:45; Admin Dose 25 MG; Start 12/15/16 at 21:00 Ceftriaxone Sodium 50 ml @ 100 mls/hr Q24H IVPB Last administered on 15:00; Admin Dose 100 MLS/HR; Start 12/15/16 at 15:00 Azithromycin (Zithromax 500mg/ NS (Pmx)) 250 ml @ 250 mls/hr Q24H IVPB Last administered on 12/17/16 14:14; Admin Dose 250 MLS/HR; Start 12/15/16 at 14:00 Heparin Sodium (Porcine) (Heparin (5000 Units/0.5 ml)) 5,000 unit BID SC Last administered on 12/18/16 09:01; Admin Dose 5,000 UNIT; Start 12/15/16 at 21:00 Miscellaneous Information 1 ea NOTE XX ; Start 12/15/16 at 14:00 Glucose (Glutose) 15 gm Q15M PRN PO DECREASED GLUCOSE; Start 12/15/16 at 14:00 Glucose (Glutose) 22.5 gm Q15M PRN PO DECREASED GLUCOSE; Start 12/15/16 at 14: 00 Dextrose (D50w Syringe) 25 ml Q15M PRN IV DECREASED GLUCOSE; Start 12/15/16 at 14:00 Dextrose (D50w Syringe) 50 ml Q15M PRN IV DECREASED GLUCOSE; Start 12/15/16 at 14:00 Glucagon (Glucagen) 1 mg Q15M PRN IM DECREASED GLUCOSE; Start 12/15/16 at 14:00 Glucose (Glutose) 15 gm Q15M PRN BUCCAL DECREASED GLUCOSE; Start 12/15/16 at 14 :00 Hydralazine HCl (Apresoline) 25 mg Q8 PO Last administered on 12/17/16 21:23; Admin Dose 25 MG; Start 12/15/16 at 22:00 Cholecalciferol 1000 unit 1,000 unit DAILY PO Last administered on 12/18/16 08 :56; Admin Dose 1,000 UNIT; Start 12/16/16 at 09:00 Ferric Sodium Gluconate Complex 125 mg/Sodium Chloride 110 ml @ 100 mls/hr Q24H IVPB Last administered on 12/17/16 17:17; Admin Dose 100 MLS/HR; Start at 17:00; Stop 12/18/16 at 18:05 Methylprednisolone Sodium Succinate 250 mg/Dextrose 50 ml @ 100 mls/hr BID IV Last administered on 12/18/16 08:56; Admin Dose 100 MLS/HR; Start 12/17/16 at 13:30; Stop 12/19/16 at 21:29 Midazolam HCl 50 ml @ 1 mls/hr TITRATE IV Last administered on 12/18/16 04:15 ; Admin Dose 1 MLS/HR; Start 12/18/16 at 03:30 Fentanyl 100 ml @ 2.5 mls/hr TITRATE IV Last administered on 12/18/16 04:14; Admin Dose 2.5 MLS/HR; Start 12/18/16 at 03:30 Norepinephrine 250 ml @ 1.875 mls/ hr TITRATE IV Last administered on 06:01; Admin Dose 9.375 MLS/HR; Start 12/18/16 at 06:00 Norepinephrine/ Dextrose (Levophed/D5W) 500 ml @ 1.87 mls/hr TITRATE IV ; Start 12/18/16 at 06:00 Insulin Human NPH 20 unit 20 unit BID SC Last administered on 12/18/16 09:14; Admin Dose 20 UNIT; Start 12/18/16 at 09:00; Stop 12/19/16 at 21:01 Sodium Chloride (NS) 1,000 ml @ 75 mls/hr [id number] IV Last administered on 12/18 08:56; Admin Dose 75 MLS/HR; Start 12/18/16 at 09:00 Insulin Aspart (Novolog Insulin Pen) NOVOLOG *MODERATE* ALGORITHM Q4 SC ; Start 12/18/16 at 09:30 Assessment/Plan Chief Complaint/Hosp Course Assessment 1. Acute hypoxemic respiratory failure 2. Differential does include diffuse alveolar hemorrhage secondary to capillaritis from MPA or GPA. Differential does include atypical pneumonia also. 3. Diabetes mellitus 4. Recent anemia Plan 1. Continue mechanical ventilation 2. Decrease FiO2 as tolerated 3. Continues empiric steroids 4. Continue broad-spectrum antibiotics 5. May require renal biopsy 6. Rheumatology evaluation serologies are pending Disposition Discussed with staff Discussed with primary care team Continue ICU care Critical care time 40 minutes Problems: VERO SOTO MD, [facility] Dec 18, 2016 11:15
[2016-12-18] MEDS: SEVELAMER CARBONATE 2.4 GM PKT PO SCH ×2 (11:30→17:22)
[2016-12-18] MEDS: DEXTROSE 5%-0.9% NACL 1,000 ML IV SCH (12:10)
--- NOTE | 2016-12-18 12:15 | CONS ---
Date/Time of Note Date/Time of Note DATE: 12/18/16 TIME: 12:04 Assessment/Plan Assessment/Plan Chief Complaint/Hosp Course ID PROGRESS NOTE TOTAL ABX DAY # 3 => Ceftriaxone #3 + Azith #3 + Levaquin #1 24H INTERVAL SUMMARY * Intubated early am 12/18/16-> hypoxic, agitated, confused last night * CXR 12/18/16 Patchy opacities are again noted diffusely which are not significantly changed. * CT ABD 12/16/16: IMPRESSION: * 1. There are patchy alveolar and nodular infiltrates in the lungs (some of which are peripheral) with peribronchial thickening suspicious for pneumonia. There is associated small pleural effusions. Follow-up imaging is recommended to ensure clearing. Consider cryptogenic organizing pneumonia. * 2. Inhomogeneity of the thyroid gland suggesting small thyroid nodules for which no additional follow-up is recommended unless clinically indicated. * 3. Enlarged mediastinal lymph nodes as described. * 4. Hepatomegaly. * 5. Atherosclerotic vascular disease. there is 6 enlarged main pulmonary artery outflow tract measuring up to 3.9 cm transverse. Findings suspicious for pulmonary arterial hypertension. * 6. Mucosal thickening of small bowel loops in the left upper abdomen. A small bowel enteritis might present this fashion. * 7. Osteoarthritis of the thoracic and lumbosacral spine. * 8. Anasarca. * 9. Small bilateral inguinal hernias containing fat. PHYSICAL EXAMINATION: GENERAL: VSS, NAD -> Morbid obese M, no fevers HEENT: ETT/OGT secure NECK: Supple, trach-> midline CHEST: Equal chest rise bilaterally, without dyspnea on observation / Vented HEART: Pulse RRR - NSR on tele ABDOMEN: Soft, obese EXTREMITIES: Warm w/generalized dependent edema SKIN: Warm, dry ID ASSESSMENT: 41 yo Morbid Obese M admitted with: 1. Sepsis secondary to underlying community-acquired pneumonia, hypotension, acute encephalopathy, DKA * DDx ?Silent Aspiration PNA - risk factors obesity ?CHRISTINE ? GERD * DDx Opportunistic vs cryptogenic organizing pneumonia => Cocci serology sent 2. Acute hypoxic respiratory failure=>Intubated early am 12/18 * PNA (+) * Pulmonary HTN per CT ?COPD * ?Obesity hypoventilation syndrome 3. Elevated troponins. Most probably a type 2 event from underlying sepsis and underlying acute kidney injury. 4. Acute kidney injury. 5. DKA - Type 2 diabetes mellitus.-> Poorly controlled 6. Dyslipidemia. Continue statins. 7. Essential hypertension. . 8. Microcytic, hypochromic anemia (-) MRSA Nares (-)HIV Screen INVASIVES: * PIV ABX ALLERGIES: Vanco IV CURRENT ABX: TOTAL ABX DAY # 3 => Ceftriaxone #3 + Levaquin #1 DC Luis Felipe 12/18 ID RECOMMENDATIONS: 1. Broaden ABX coverage now that he is intubated in the ICU 2. DC Luis Felipe today -> Replace with Levaquin renal dose IV 3. Respiratory culture ordered 4. f/u on micro + serologies sent . Problems: Consultation Date/Type/Reason Admit Date/Time Dec 15, 2016 at 11:20 Type of Consultation: ID Referring Provider: LEXII REED Exam/Review of Systems Vital Signs Vitals Vital Signs Date Time Temp Pulse Resp B/P Pulse Ox O2 Delivery O2 Flow Rate FiO2 12/18/16 11:00 55 24 99/61 100 Mechanical Ventilator 12/18/16 08:40 100 12/18/16 08:00 97.6 12/17/16 08:00 15.0 Intake and Output 12/17/16 12/17/16 12/18/16 15:00 23:00 07:00 Intake Total 50 ml 34.375 ml Output Total 120 ml 240 ml Balance -70 ml -205.625 ml Results Result Diagram: 12/18/16 0531 12/18/16 0722 Results 24 hrs Laboratory Tests Test 12/17/16 12:21 12/17/16 13:42 12/17/16 14:25 12/17/16 18:05 Bedside Glucose 137 183 Blood Gas Specimen Source Blood arterial Arterial Blood Date Drawn 12/17/2016 1:50:06 PM Arterial Blood pH (Temp corrected) 7.433 Arterial Blood pCO2 (Temp correct) 35.9 Arterial Blood pO2 (Temp corrected) 69.7 L Arterial Blood HCO3 23.5 Arterial Blood Base Excess -0.5 Arterial Blood Oxygen Saturation 93.7 L Leobardo Test N/A Arterial Blood Gas Puncture Site LB Arterial Blood Carboxyhemoglobin 0.2 Arterial Blood Methemoglobin 0.3 Blood Gas A-a O2 Differential 607.4 H Oxyhemoglobin Percent 93.2 Total Hemoglobin 10.0 L Blood Gas Temperature 37.0 Blood Gas Actual Respiration Rate 28 Blood Gas Modality HIGH FLOW FiO2 100.0 Blood Gas Notified Whom JAS RT Blood Gas Notified Time 12/17/2016 2:04:05 PM HIV (1&2) Antibody NEGATIVE Test 12/17/16 20:48 12/18/16 00:25 12/18/16 05:00 12/18/16 05:09 Bedside Glucose 251 H 323 H 333 H Blood Gas Specimen Source Blood arterial Arterial Blood Date Drawn 12/18/2016 4:40:08 AM Arterial Blood pH (Temp corrected) 7.150 *L Arterial Blood pCO2 (Temp correct) 60.7 H Arterial Blood pO2 (Temp corrected) 79.6 L Arterial Blood HCO3 20.7 L Arterial Blood Base Excess -8.9 L Arterial Blood Oxygen Saturation 92.6 L Leobardo Test ACCEPTAB Arterial Blood Gas Puncture Site Right Radial Arterial Blood Carboxyhemoglobin 0.2 Arterial Blood Methemoglobin 0.2 Blood Gas A-a O2 Differential 572.7 H Oxyhemoglobin Percent 92.2 L Total Hemoglobin 13.9 Blood Gas Temperature 37.0 Blood Gas Respiration Rate 16.0 Blood Gas Actual Respiration Rate 16 Blood Gas Modality VENT - AC FiO2 100.0 Blood Gas Tidal Volume 500.0 Blood Gas Low PEEP Setting 8.0 Blood Gas Inspiratory Pressure 27.0 Blood Gas Critical Value Read Back TING RN Blood Gas Notified Whom MA Blood Gas Notified Time 12/18/2016 5:04:23 AM Test 12/18/16 05:31 12/18/16 05:37 12/18/16 07:08 12/18/16 07:22 White Blood Count 8.9 # Red Blood Count 3.62 L Hemoglobin 10.0 L Hematocrit 30.8 L Mean Corpuscular Volume 85.1 Mean Corpuscular Hemoglobin 27.6 L Mean Corpuscular Hemoglobin Concent 32.5 Red Cell Distribution Width 13.0 Platelet Count 243 # Mean Platelet Volume 12.8 H Neutrophils % 83.6 H Lymphocytes % 12.4 L Monocytes % 3.2 Eosinophils % 0.1 Basophils % 0.2 Nucleated Red Blood Cells % 0.0 Neutrophils # 7.4 Lymphocytes # 1.1 Monocytes # 0.3 Eosinophils # 0.0 Basophils # 0.0 Nucleated Red Blood Cells # 0.0 Erythrocyte Sedimentation Rate 90.0 H Sodium Level 135 Potassium Level 3.8 Chloride Level 105 Carbon Dioxide Level 20 L Anion Gap 14 # Blood Urea Nitrogen 42 #H Creatinine 2.91 H Glucose Level 722 #*H 357 #H Lactic Acid Level 1.2 Calcium Level 6.0 L Phosphorus Level 8.5 #H Magnesium Level 2.0 Total Bilirubin 0.0 L Direct Bilirubin 0.00 Indirect Bilirubin 0.0 Aspartate Amino Transf (AST/SGOT) 56 H Alanine Aminotransferase (ALT/SGPT) 32 Alkaline Phosphatase 60 C-Reactive Protein 24.5 H Total Protein 4.3 L Albumin 1.8 L Globulin 2.50 Albumin/Globulin Ratio 0.72 Prothrombin Time 14.3 H Prothrombin Time Ratio 1.1 INR International Normalized Ratio 1.11 Activated Partial Thromboplast Time 73.4 *H Bedside Glucose 383 H Test 12/18/16 08:55 12/18/16 09:00 Bedside Glucose 354 H Blood Gas Specimen Source Blood arterial Arterial Blood Date Drawn 12/18/2016 10:05:32 AM Arterial Blood pH (Temp corrected) 7.363 Arterial Blood pCO2 (Temp correct) 39.0 Arterial Blood pO2 (Temp corrected) 97.9 Arterial Blood HCO3 21.7 L Arterial Blood Base Excess -3.4 L Arterial Blood Oxygen Saturation 96.9 Leobardo Test ACCEPTAB Arterial Blood Gas Puncture Site Right Radial Arterial Blood Carboxyhemoglobin 0.2 Arterial Blood Methemoglobin 0.2 Blood Gas A-a O2 Differential 576.1 H Oxyhemoglobin Percent 96.5 Total Hemoglobin 11.3 L Blood Gas Temperature 37.0 Blood Gas Respiration Rate 24.0 Blood Gas Actual Respiration Rate 26 Blood Gas Modality VENT - AC FiO2 100.0 Blood Gas Tidal Volume 500.0 Blood Gas Low PEEP Setting 8.0 Blood Gas Notified Whom CHELSEA VANG Blood Gas Notified Time 12/18/2016 10:19:44 AM Medications Medications Current Medications Insulin Glargine (Lantus) 33 unit DAILY@20 SC Last administered on 12/17/16 20 :51; Admin Dose 33 UNIT; Start 12/15/16 at 20:00 Ondansetron HCl (Zofran Inj) 4 mg Q6H PRN IV NAUSEA AND/OR VOMITING; Start at 13:00 Acetaminophen (Tylenol Tab) 650 mg Q6H PRN PO PAIN LEVEL 1-3 OR FEVER Last administered on 12/17/16 18:16; Admin Dose 650 MG; Start 12/15/16 at 13:00 Acetaminophen/ Hydrocodone Bitart ([place] (5/325)) 1 tab Q6H PRN PO PAIN LEVEL 4 -6 Last administered on 12/15/16 22:08; Admin Dose 1 TAB; Start 12/15/16 at 13: 00 Morphine Sulfate (morphine) 2 mg Q4H PRN IV PAIN LEVEL 7-10; Start 12/15/16 at 13:00 Magnesium Hydroxide (Milk Of Mag) 30 ml DAILY PRN PO CONSTIPATION; Start at 13:00 Bisacodyl (Dulcolax) 5 mg DAILY PRN PO CONSTIPATION; Start 12/15/16 at 13:00 Famotidine (Pepcid) 20 mg Q12 PO Last administered on 12/18/16 08:56; Admin Dose 20 MG; Start 12/15/16 at 21:00 Hydralazine HCl (Apresoline) 10 mg Q6H PRN IV SBP>160; Start 12/15/16 at 13:00 Amlodipine Besylate (Norvasc) 10 mg DAILY PO Last administered on 12/17/16 08: 18; Admin Dose 10 MG; Start 12/16/16 at 09:00 Aspirin (Aspirin) 325 mg DAILY PO Last administered on 12/18/16 08:56; Admin Dose 325 MG; Start 12/16/16 at 09:00 Atorvastatin Calcium (Lipitor) 80 mg QHS PO Last administered on 12/17/16 20: 45; Admin Dose 80 MG; Start 12/15/16 at 21:00 Carvedilol 25 mg 25 mg BID PO Last administered on 12/17/16 20:45; Admin Dose 25 MG; Start 12/15/16 at 21:00 Ceftriaxone Sodium 50 ml @ 100 mls/hr Q24H IVPB Last administered on 15:00; Admin Dose 100 MLS/HR; Start 12/15/16 at 15:00 Azithromycin (Zithromax 500mg/ NS (Pmx)) 250 ml @ 250 mls/hr Q24H IVPB Last administered on 12/17/16 14:14; Admin Dose 250 MLS/HR; Start 12/15/16 at 14:00 Heparin Sodium (Porcine) (Heparin (5000 Units/0.5 ml)) 5,000 unit BID SC Last administered on 12/18/16 09:01; Admin Dose 5,000 UNIT; Start 12/15/16 at 21:00 Miscellaneous Information 1 ea NOTE XX ; Start 12/15/16 at 14:00 Glucose (Glutose) 15 gm Q15M PRN PO DECREASED GLUCOSE; Start 12/15/16 at 14:00 Glucose (Glutose) 22.5 gm Q15M PRN PO DECREASED GLUCOSE; Start 12/15/16 at 14: 00 Dextrose (D50w Syringe) 25 ml Q15M PRN IV DECREASED GLUCOSE; Start 12/15/16 at 14:00 Dextrose (D50w Syringe) 50 ml Q15M PRN IV DECREASED GLUCOSE; Start 12/15/16 at 14:00 Glucagon (Glucagen) 1 mg Q15M PRN IM DECREASED GLUCOSE; Start 12/15/16 at 14:00 Glucose (Glutose) 15 gm Q15M PRN BUCCAL DECREASED GLUCOSE; Start 12/15/16 at 14 :00 Hydralazine HCl (Apresoline) 25 mg Q8 PO Last administered on 12/17/16 21:23; Admin Dose 25 MG; Start 12/15/16 at 22:00 Cholecalciferol 1000 unit 1,000 unit DAILY PO Last administered on 12/18/16 08 :56; Admin Dose 1,000 UNIT; Start 12/16/16 at 09:00 Ferric Sodium Gluconate Complex 125 mg/Sodium Chloride 110 ml @ 100 mls/hr Q24H IVPB Last administered on 12/17/16 17:17; Admin Dose 100 MLS/HR; Start at 17:00; Stop 12/18/16 at 18:05 Methylprednisolone Sodium Succinate 250 mg/Dextrose 50 ml @ 100 mls/hr BID IV Last administered on 12/18/16 08:56; Admin Dose 100 MLS/HR; Start 12/17/16 at 13:30; Stop 12/19/16 at 21:29 Midazolam HCl 50 ml @ 1 mls/hr TITRATE IV Last administered on 12/18/16 04:15 ; Admin Dose 1 MLS/HR; Start 12/18/16 at 03:30 Fentanyl 100 ml @ 2.5 mls/hr TITRATE IV Last administered on 12/18/16 04:14; Admin Dose 2.5 MLS/HR; Start 12/18/16 at 03:30 Norepinephrine 250 ml @ 1.875 mls/ hr TITRATE IV Last administered on 06:01; Admin Dose 9.375 MLS/HR; Start 12/18/16 at 06:00 Norepinephrine/ Dextrose (Levophed/D5W) 500 ml @ 1.87 mls/hr TITRATE IV ; Start 12/18/16 at 06:00 Insulin Human NPH 20 unit 20 unit BID SC Last administered on 12/18/16 09:14; Admin Dose 20 UNIT; Start 12/18/16 at 09:00; Stop 12/19/16 at 21:01 Sodium Chloride (NS) 1,000 ml @ 75 mls/hr [id number] IV Last administered on 12/18 08:56; Admin Dose 75 MLS/HR; Start 12/18/16 at 09:00 Insulin Aspart (Novolog Insulin Pen) NOVOLOG *MODERATE* ALGORITHM Q4 SC ; Start 12/18/16 at 09:30 MAGDALENO SIMMONS NP Dec 18, 2016 12:15
--- NOTE | 2016-12-18 12:53 | RADRPT ---
PROCEDURE: Retroperitoneal US. CLINICAL INDICATION: Acute renal insufficiency TECHNIQUE: Multiple sonographic images of the retroperitoneum were obtained. The images were revi ewed on a PACS workstation. COMPARISON: Renal ultrasound from 06/01/2016 FINDINGS: The right kidney measures 13.3 cm. The left kidney measures 12.8 cm. The renal parenchymal echotexture is normal. There is no hydronephrosis. There is no focal renal mass or calcification seen. There is a 1 cm simple cyst in the midpole of the left kidney. There is a 2.3 cm simple cyst in the midpole of the right kidney. The bladder is collapsed around a Ritchie catheter balloon which limits evaluation. IMPRESSION: No evidence of significant renal atrophy or increased parenchymal echogenicity to suggest medical re nal disease. Simple bilateral renal cysts measuring up to 2.3 cm on the right and 1 cm on the left. The bladder is collapsed around a Ritchie catheter balloon which limits evaluation. RPTAT: EE Physician Jj Date Time Electronically viewed and signed by Physician Jj on 12/18/2016 12:53 /
[2016-12-18] MEDS ORDERED: DEXTROSE 50% 50 ML SYRINGE IV PRN (14:00)
[2016-12-18] MEDS: ACCU-CHEK XX SCH ×10 (14:00→22:57)
[2016-12-18] MEDS: AZITHROMYCIN 500MG/NS (PMX) 250 ML IVPB SCH (14:00)
[2016-12-18] MEDS: CEFTRIAXONE 1 GM/50 ML (PMX) 50 ML IVPB SCH (15:50)
--- NOTE | 2016-12-18 16:55 | RADRPT ---
PROCEDURE: US guidance for PICC line CLINICAL INDICATION: PICC line placement TECHNIQUE: Multiple real-time images were acquired of the patient's arm utilizing a high resolutio n transducer. This was performed by the PICC line nurse for venous access. COMPARISON: None FINDINGS: Ultrasound guidance for PICC line placement. There is a patent left upper extremity vein. IMPRESSION: Ultrasound guidance for PICC line placement. Patent left upper extremity vein. RPTAT: AA Physician Jj Date Time Electronically viewed and signed by Physician Jj on 12/18/2016 16:55 RA/
--- NOTE | 2016-12-18 16:57 | RADRPT ---
PROCEDURE: XR Chest. CLINICAL INDICATION: Check Line Placement TECHNIQUE: Single frontal view of the chest was obtained. COMPARISON: Chest x-ray from 12/18/2016 at 06:19 hours FINDINGS: There has been interval placement of a left-sided PICC line with its tip at the superior cavoatrial junction. The enteric tube and endotracheal tube are unchanged in position. There is stable mild cardiomegaly and low lung volumes. As diffuse patchy and confluent opacities seen previously are not significantly changed. There is no significant pleural effusion or pneumothorax. IMPRESSION: Interval placement of a left-sided PICC line with its tip at the superior cavoatrial junction. Otherwise, no significant interval change. RPTAT: EE Physician Jj Date Time Electronically viewed and signed by Physician Jj on 12/18/2016 16:57 /
[2016-12-18] MEDS: LEVOFLOXACIN 250MG/D5W (PMX) 50 ML IVPB SCH (17:17)
[2016-12-18] MEDS: INSULIN HUMAN REGULAR 100 UNIT in SOD CHLORIDE 0.9% 99 ML IV SCH (17:17)
[2016-12-18] MEDS: SOD FERRIC GLUC COMPLX 125 MG in SOD CHLORIDE 0.9% 100 ML IVPB SCH (17:29)
[2016-12-18] MEDS ORDERED: SOD CHLORIDE 0.9% 100 ML ONE (17:38)
[2016-12-18 19:44] LABS: ADD UMIC YES; URINE BILIRUBIN (Dip) NEGATIVE (NEGATIVE); URINE BLOOD (Dip) 3+ (NEGATIVE); URINE COLOR LT. YELLOW (YELLOW); URINE KETONES (Dip) NEGATIVE (NEGATIVE); URINE LEUKOCYTE ESTERASE (Dip) NEGATIVE (NEGATIVE); URINE NITRITE (Dip) NEGATIVE (NEGATIVE); URINE TOTAL PROTEIN (Dip) 2+ (NEGATIVE); URINE UROBILINOGEN (Dip) 0.2 E.U./dL (0.1-1.0)
[2016-12-18] MEDS: INSULIN GLARGINE [LANtus] 3 ML PEN SC SCH (20:00)
[2016-12-18] MEDS: ATORVASTATIN 80 MG TAB PO SCH (20:52)
[2016-12-18 20:56] LABS: BACTERIA,URINE MANY; SQUAMOUS EPITHELIAL CELL,UR FEW
[2016-12-19] VITALS (71 sets, daily range): BP systolic 89–141; BP diastolic 54–91; PULSE 50–63; RESP 24–33
[2016-12-19] MEDS: ACCU-CHEK XX SCH ×15 (00:15→22:19)
[2016-12-19] MEDS: SOD CHLORIDE 0.9% 1,000 ML IV SCH ×3 (00:28→20:37)
[2016-12-19] MEDS: LEVALBUTEROL (HFA) 15 GM INHALER INH SCH ×3 (01:26→19:40)
[2016-12-19] MEDS: INSULIN HUMAN REGULAR 100 UNIT in SOD CHLORIDE 0.9% 99 ML IV SCH (03:10)
[2016-12-19 04:46] LABS: ADD SCAN DIFF NO
[2016-12-19 05:04] LABS: ALBUMIN 2.1 g/dl (3.3-4.9); ALBUMIN/GLOBULIN RATIO 0.72; BASOPHILS % 0.1 % (0.0-2.0); CALCIUM 7.2 mg/dl (8.4-10.2); CREATININE 3.29 mg/dl (0.61-1.24); HEMATOCRIT 32.7 % (42.0-52.0); HEMOGLOBIN 10.5 g/dl (14.0-18.0); LYMPHOCYTES # 1.2 10^3/ul (0.8-2.9); LYMPHOCYTES % 10.3 % (15.0-51.0); MEAN CORPUSCULAR HEMOGLOBIN 26.9 pg (29.0-33.0); MEAN CORPUSCULAR HGB CONC 32.1 g/dl (32.0-37.0); MEAN CORPUSCULAR VOLUME 83.6 fl (82.0-101.0); MEAN PLATELET VOLUME 12.1 fl (7.4-10.4); MONOCYTE # 0.8 10^3/ul (0.3-0.9); MONOCYTES % 6.4 % (0.0-11.0); NEUTROPHIL # 9.6 10^3/ul (1.6-7.5); NEUTROPHILS % 82.3 % (39.0-77.0); PLATELET COUNT 331 10^3/UL (140-415); POTASSIUM 3.8 mmol/L (3.5-5.1); RED BLOOD COUNT 3.91 10^6/ul (4.70-6.10); RED CELL DISTRIBUTION WIDTH 13.6 % (11.5-14.5); WHITE BLOOD COUNT 11.7 10^3/ul (4.8-10.8)
[2016-12-19 05:05] LABS: MAGNESIUM 2.5 mg/dl (1.7-2.5); PHOSPHORUS 6.7 mg/dl (2.5-4.9)
[2016-12-19] MEDS: MIDAZOLAM (DRIP) 50 mg/50 mL 50 ML IV SCH (06:43)
--- NOTE | 2016-12-19 07:55 | RADRPT ---
PROCEDURE: XR Chest. CLINICAL INDICATION: pna chf TECHNIQUE: Single frontal view of the chest was obtained. COMPARISON: Chest x-ray from 12/18/2016 and 16:47 hours FINDINGS: An endotracheal tube, enteric tube, and left-sided PICC line are unchanged in position. There is stable cardiomegaly. There is mildly decreased prominence of interstitial markings and bilateral patchy and confluent opa cities seen previously, likely due to improving congestive changes and improving pneumonia. There is no significant pleural effusion or pneumothorax. IMPRESSION: Decreased prominence of interstitial markings and patchy and confluent bilateral opacities indicatin g improving congestive changes and pneumonia. Lines and support tubes are unchanged. RPTAT: EE Physician Jj Date Time Electronically viewed and signed by Emmanuel Alvarez Physician on 12/19/2016 07:54 /
[2016-12-19] MEDS: SEVELAMER CARBONATE 2.4 GM PKT PO SCH ×3 (08:20→17:58)
[2016-12-19] MEDS: AMLODIPINE 10 MG TAB PO SCH (08:21)
[2016-12-19] MEDS: ASPIRIN 325 MG TAB PO SCH (08:21)
[2016-12-19] MEDS: CHOLECALCIFEROL 1,000 UNIT TAB PO SCH (08:22)
[2016-12-19] MEDS: FAMOTIDINE 20 MG TAB PO SCH ×2 (08:22→21:02)
[2016-12-19] MEDS: HEPARIN 5,000 UNIT/0.5 ML VIAL SC SCH ×2 (08:23→21:03)
[2016-12-19 08:25] LABS: AADO2 Arterial 603.9 mmHg (7.0-24.0); Allen Test ACCEPTAB; Arterial Base Excess -3.2 mmol/L (-3.0-3); Arterial COHb 0.2 % (0.0-3.0); Arterial Fraction of Oxyhgb 92.5 % (93.0-99.0); Arterial HCO3 21.5 mmol/L (22.0-26.0); Arterial MetHb 0.3 % (0.0-1.5); Arterial Total Hemglobin 11.5 g/dl (12.0-18.0); MODE VENT - AC
[2016-12-19] MEDS: morphine 2 MG INJ IV PRN (08:30)
[2016-12-19] MEDS: METHYLPRED. NA SUCC 250 MG in DEXTROSE 5% 50 ML IV SCH (08:47)
[2016-12-19] MEDS ORDERED: SOD CHLORIDE 0.9% IV SCH (09:00)
[2016-12-19] MEDS ORDERED: METHYLPRED NA SUCC IV SCH (09:00)
[2016-12-19] MEDS ORDERED: NORepinephrine 32 MG in DEXTROSE 5% 218 ML IV SCH (09:30)
--- NOTE | 2016-12-19 09:35 | CONS ---
Date/Time of Note Date/Time of Note DATE: 12/19/16 TIME: 09:31 Assessment/Plan Assessment/Plan Additional Assessment/Plan Chest x-ray was reviewed from today which is showing bilateral it without infiltrates slightly increased from yesterday. Endotracheal tube is at an adequate level. Patient currently on Versed 5 mg/h, insulin drip 1 U/h, fentanyl 50 mics per hour. She also on pulse Solu-Medrol 40 mg every 12 hours. Ventilator settings; AC of 24, tidal volume 500, PEEP of 8, 90% FiO2. Assessment recommendations; 1. Patient admitted for worsening renal function leading to respiratory failure. 2. Possibly atypical pneumonia. 3. Episode of atrial flutter/fibrillation, currently the rate is controlled. 4. Hypoxemia. 5. Progressive increase in serum creatinine. Patient now having decreased urine output, chest x-ray also is consistent with mild pulmonary edema. 6. History of hypertension or diabetes. Add propofol for better sedation. Renal workup per nephrology recommendations. Continue current ventilator settings. Continue current antibiotics. Prognosis is guarded. About 37 minutes of critical care time was spent evaluating the patient. Consultation Date/Type/Reason Admit Date/Time Dec 15, 2016 at 11:20 Initial Consult Date Type of Consultation: Pulmonary/critical care Referring Provider: LEXII REED 24 HR Interval Summary Free Text/Dictation Patient condition remains critical. Remains extremely agitated despite combination Versed and fentanyl drips. General exam; young male, orally intubated, agitated. Exam/Review of Systems Vital Signs Vitals Vital Signs Date Time Temp Pulse Resp B/P Pulse Ox O2 Delivery O2 Flow Rate FiO2 12/19/16 07:00 56 24 122/68 98 Mechanical Ventilator 12/19/16 05:10 100 12/19/16 04:00 97.5 12/17/16 08:00 15.0 Intake and Output 12/18/16 12/18/16 12/19/16 15:00 23:00 07:00 Intake Total 645.500 ml 1026.625 ml 687.375 ml Output Total 365 ml 220 ml 210 ml Balance 280.500 ml 806.625 ml 477.375 ml Exam HEENT examination; supple neck, no JVD. No lymphadenopathy. Midline trachea. Pupils are equal and reactive to light. Patient has good dentition. Orally intubated. No neck masses. No thyromegaly. No neck bruits. Chest examined; diminished but clear breath sounds. S1-S2 audible, no murmurs. Irregular rhythm. Abdomen examination; soft, non-distended. No organomegaly. Bowel sounds audible. Extremity exam is; no peripheral edema. Pulses 1+ bilaterally. DOOR PANELER examination; patient is agitated. Results Result Diagram: 12/19/16 0400 12/19/16 0400 Results 24 hrs Laboratory Tests Test 12/18/16 13:47 12/18/16 13:54 12/18/16 14:18 12/18/16 17:13 Bedside Glucose 418 *H 304 H Urine Color LT. YELLOW Urine Clarity CLOUDY H Urine pH 5.0 Urine Specific [place] >=1.030 H Urine Ketones NEGATIVE Urine Nitrite NEGATIVE Urine Bilirubin NEGATIVE Urine Urobilinogen 0.2 E.U./dL Urine Leukocyte Esterase NEGATIVE Urine Microscopic RBC 10-25 Urine Microscopic WBC 0-2 Urine Squamous Epithelial Cells FEW Urine Amorphous Phosphates FEW Urine Bacteria MANY Urine Coarse Granular Casts FEW Urine Yeast MODERATE Urine Hemoglobin 3+ H Urine Glucose 0.25% H Urine Total Protein 2+ H Glucose Level 344 H Test 12/18/16 18:12 12/18/16 19:44 12/18/16 20:59 12/18/16 21:56 Bedside Glucose 324 H 346 H 271 H 237 H Test 12/18/16 22:54 12/19/16 00:13 12/19/16 01:03 12/19/16 03:04 Bedside Glucose 194 174 141 103 Test 12/19/16 04:00 12/19/16 04:52 12/19/16 06:45 12/19/16 07:00 White Blood Count 11.7 #H Red Blood Count 3.91 L Hemoglobin 10.5 L Hematocrit 32.7 L Mean Corpuscular Volume 83.6 Mean Corpuscular Hemoglobin 26.9 L Mean Corpuscular Hemoglobin Concent 32.1 Red Cell Distribution Width 13.6 Platelet Count 331 # Mean Platelet Volume 12.1 H Neutrophils % 82.3 H Lymphocytes % 10.3 L Monocytes % 6.4 Eosinophils % 0.0 Basophils % 0.1 Nucleated Red Blood Cells % 0.0 Neutrophils # 9.6 H Lymphocytes # 1.2 Monocytes # 0.8 Eosinophils # 0.0 Basophils # 0.0 Nucleated Red Blood Cells # 0.0 Sodium Level 137 Potassium Level 3.8 Chloride Level 105 Carbon Dioxide Level 27 Anion Gap 9 # Blood Urea Nitrogen 61 H Creatinine 3.29 H Glucose Level 105 # Calcium Level 7.2 L Phosphorus Level 6.7 H Magnesium Level 2.5 Total Bilirubin 0.0 L Direct Bilirubin 0.00 Indirect Bilirubin 0.0 Aspartate Amino Transf (AST/SGOT) 43 Alanine Aminotransferase (ALT/SGPT) 30 Alkaline Phosphatase 68 Total Protein 5.0 L Albumin 2.1 L Globulin 2.90 Albumin/Globulin Ratio 0.72 Bedside Glucose 100 99 Blood Gas Specimen Source Blood arterial Arterial Blood Date Drawn 12/19/2016 7:51:42 AM Arterial Blood pH (Temp corrected) 7.376 Arterial Blood pCO2 (Temp correct) 37.6 Arterial Blood pO2 (Temp corrected) 71.5 L Arterial Blood HCO3 21.5 L Arterial Blood Base Excess -3.2 L Arterial Blood Oxygen Saturation 93.0 L Leobardo Test ACCEPTAB Arterial Blood Gas Puncture Site Right Radial Arterial Blood Carboxyhemoglobin 0.2 Arterial Blood Methemoglobin 0.3 Blood Gas A-a O2 Differential 603.9 H Oxyhemoglobin Percent 92.5 L Total Hemoglobin 11.5 L Blood Gas Temperature 37.0 Blood Gas Respiration Rate 24.0 Blood Gas Actual Respiration Rate 24 Blood Gas Modality VENT - AC FiO2 100.0 Blood Gas Tidal Volume 500.0 Blood Gas Low PEEP Setting 8.0 Blood Gas Notified Whom JLD Blood Gas Notified Time 12/19/2016 8:25:26 AM Test 12/19/16 07:08 Lab Scanned Report REFERENCE LAB Medications Medications Current Medications Insulin Glargine (Lantus) 33 unit DAILY@20 SC Last administered on 12/17/16 20 :51; Admin Dose 33 UNIT; Start 12/15/16 at 20:00 Ondansetron HCl (Zofran Inj) 4 mg Q6H PRN IV NAUSEA AND/OR VOMITING; Start at 13:00 Acetaminophen (Tylenol Tab) 650 mg Q6H PRN PO PAIN LEVEL 1-3 OR FEVER Last administered on 12/17/16 18:16; Admin Dose 650 MG; Start 12/15/16 at 13:00 Acetaminophen/ Hydrocodone Bitart ([place] (5/325)) 1 tab Q6H PRN PO PAIN LEVEL 4 -6 Last administered on 12/15/16 22:08; Admin Dose 1 TAB; Start 12/15/16 at 13: 00 Morphine Sulfate (morphine) 2 mg Q4H PRN IV PAIN LEVEL 7-10 Last administered on 12/19/16 08:30; Admin Dose 2 MG; Start 12/15/16 at 13:00 Magnesium Hydroxide (Milk Of Mag) 30 ml DAILY PRN PO CONSTIPATION; Start at 13:00 Bisacodyl (Dulcolax) 5 mg DAILY PRN PO CONSTIPATION; Start 12/15/16 at 13:00 Famotidine (Pepcid) 20 mg Q12 PO Last administered on 12/19/16 08:22; Admin Dose 20 MG; Start 12/15/16 at 21:00 Hydralazine HCl (Apresoline) 10 mg Q6H PRN IV SBP>160; Start 12/15/16 at 13:00 Amlodipine Besylate (Norvasc) 10 mg DAILY PO Last administered on 12/17/16 08: 18; Admin Dose 10 MG; Start 12/16/16 at 09:00 Aspirin (Aspirin) 325 mg DAILY PO Last administered on 12/19/16 08:21; Admin Dose 325 MG; Start 12/16/16 at 09:00 Atorvastatin Calcium (Lipitor) 80 mg QHS PO Last administered on 12/18/16 20: 52; Admin Dose 80 MG; Start 12/15/16 at 21:00 Carvedilol 25 mg 25 mg BID PO Last administered on 12/17/16 20:45; Admin Dose 25 MG; Start 12/15/16 at 21:00 Ceftriaxone Sodium (Rocephin) 50 ml @ 100 mls/hr Q24H IVPB Last administered on 12/18/16 15:50; Admin Dose 100 MLS/HR; Start 12/15/16 at 15:00 Heparin Sodium (Porcine) (Heparin (5000 Units/0.5 ml)) 5,000 unit BID SC Last administered on 12/19/16 08:23; Admin Dose 5,000 UNIT; Start 12/15/16 at 21:00 Miscellaneous Information 1 ea NOTE XX ; Start 12/15/16 at 14:00 Glucose (Glutose) 15 gm Q15M PRN PO DECREASED GLUCOSE; Start 12/15/16 at 14:00 Glucose (Glutose) 22.5 gm Q15M PRN PO DECREASED GLUCOSE; Start 12/15/16 at 14: 00 Dextrose (D50w Syringe) 25 ml Q15M PRN IV DECREASED GLUCOSE; Start 12/15/16 at 14:00 Dextrose (D50w Syringe) 50 ml Q15M PRN IV DECREASED GLUCOSE; Start 12/15/16 at 14:00 Glucagon (Glucagen) 1 mg Q15M PRN IM DECREASED GLUCOSE; Start 12/15/16 at 14:00 Glucose (Glutose) 15 gm Q15M PRN BUCCAL DECREASED GLUCOSE; Start 12/15/16 at 14 :00 Hydralazine HCl (Apresoline) 25 mg Q8 PO Last administered on 12/17/16 21:23; Admin Dose 25 MG; Start 12/15/16 at 22:00 Cholecalciferol 1000 unit 1,000 unit DAILY PO Last administered on 12/19/16 08 :22; Admin Dose 1,000 UNIT; Start 12/16/16 at 09:00 Midazolam HCl 50 ml @ 1 mls/hr TITRATE IV Last administered on 12/19/16 06:43 ; Admin Dose 7 MLS/HR; Start 12/18/16 at 03:30 Fentanyl 100 ml @ 2.5 mls/hr TITRATE IV Last administered on 12/18/16 19:48; Admin Dose 5 MLS/HR; Start 12/18/16 at 03:30 Norepinephrine 250 ml @ 1.875 mls/ hr TITRATE IV Last administered on 06:01; Admin Dose 9.375 MLS/HR; Start 12/18/16 at 06:00 Sodium Chloride 1,000 ml @ 50 mls/hr Q20H IV Last administered on 12/19/16 00 :28; Admin Dose 75 MLS/HR; Start 12/18/16 at 09:00 Levofloxacin/ Dextrose (Levaquin 250 Mg/ D5W 50 ml (Pmx)) 50 ml @ 50 mls/hr Q24H IVPB Last administered on 12/18/16 17:17; Admin Dose 50 MLS/HR; Start at 14:00 Dextrose (D50w Syringe) 25 ml Q15M PRN IV Till BS 80 mg/dL or above x2; Start 12/18/16 at 14:00 Dextrose 50 ml 50 ml Q15M PRN IV Till BS 80 mg/dL or above x2; Start 12/18/16 at 14:00 Midazolam HCl/ Sodium Chloride (Versed/NS) 100 ml @ 1 mls/hr TITRATE IV ; Start 12/18/16 at 15:00 IV Flush (NS 10 ml) 10 ml PRN PRN IV IV PROTOCOL; Start 12/18/16 at 17:00 Diagnostic Test (Pha) 1 ea 1 ea Q2H XX ; Start 12/19/16 at 10:00 Norepinephrine 32 mg/Dextrose 250 ml @ 0.46 mls/hr TITRATE IV ; Start 12/19/16 at 09:30 Methylprednisolone Sodium Succinate/ Sodium Chloride (Solu-Medrol/NS) 50 ml @ 100 mls/hr BID IV ; Start 12/19/16 at 09:00; Stop 12/19/16 at 09:29; Status JESS NEVAREZ Dec 19, 2016 09:35
[2016-12-19] MEDS: FENTAnyl (DRIP) 1000 mcg/100mL 100 ML IV SCH ×2 (12:00→22:16)
--- NOTE | 2016-12-19 12:23 | CONS ---
Date/Time of Note Date/Time of Note DATE: 12/19/16 TIME: 12:21 Assessment/Plan Assessment/Plan Additional Assessment/Plan 1. Positive troponin, assess significance - no CP now, doubt ongoing ischemia now. NOW IN ICU with resp issues - no cp noted. 2. Abnormal electrocardiogram with ST depressions with tachycardia and positive troponin, likely indicative of coronary artery disease. 3. Hypertension - better now, con't to keep euvolemic - well rx now- SPOT DIURESIS, with ARF - renal team aware. 4. Dyslipidemia. 5. Diabetes mellitus - on meds. 6. Fevers to 104 documented here in the hospital- on anti-Bx now, not febrile now - NO FEVER NOW 7. Renal failure - stable urine output now. 8. Lower extremity edema, assess for congestive heart failure- con't to keep euvolemic. 9. Hypokalemia. 10. Nausea and vomiting. 11. Chest pain with cough. 12. Resp failure - intubated - con't to wean and RX agitation. Consultation Date/Type/Reason Admit Date/Time Dec 15, 2016 at 11:20 Type of Consultation: Pulmonary/critical care Referring Provider: LEXII REED 24 HR Interval Summary Free Text/Dictation NO acute events - on vent, con't to wean. NO significant ectopy on tele. ROS: No fever, no chills, no nausea, no vomiting, no diarrhea/constipation No recent weight changes No chest pain, no PND, no orthopnea No dizziness, blurred vision No thirst, no heat or cold intolerance (per nurse) Exam/Review of Systems Vital Signs Vitals Vital Signs Date Time Temp Pulse Resp B/P Pulse Ox O2 Delivery O2 Flow Rate FiO2 12/19/16 12:00 98.4 54 106/63 99 Mechanical Ventilator 12/19/16 09:25 24 90 12/17/16 08:00 15.0 Intake and Output 12/18/16 12/18/16 12/19/16 15:00 23:00 07:00 Intake Total 645.500 ml 1026.625 ml 687.375 ml Output Total 365 ml 220 ml 240 ml Balance 280.500 ml 806.625 ml 447.375 ml Exam General: WN/WD/NAD, AOx 0 HEENT: Unicetric/atraumatic/EOMI (does not follow commands) NECK: JVD elevated, no thyromegaly, intub Lymph: no lymphadenopathy HEART: regular with no S3, II/ systolic murmur at apex LUNGS: Coarse sounds ABD: soft, NT, ND, +BS : Intact Neuro: non focal SKIN: chronic changes EXT: trace edema Results Result Diagram: 12/19/16 0400 12/19/16 0400 Results 24 hrs Laboratory Tests Test 12/18/16 13:47 12/18/16 13:54 12/18/16 14:18 12/18/16 17:13 Bedside Glucose 418 *H 304 H Urine Color LT. YELLOW Urine Clarity CLOUDY H Urine pH 5.0 Urine Specific [place] >=1.030 H Urine Ketones NEGATIVE Urine Nitrite NEGATIVE Urine Bilirubin NEGATIVE Urine Urobilinogen 0.2 E.U./dL Urine Leukocyte Esterase NEGATIVE Urine Microscopic RBC 10-25 Urine Microscopic WBC 0-2 Urine Squamous Epithelial Cells FEW Urine Amorphous Phosphates FEW Urine Bacteria MANY Urine Coarse Granular Casts FEW Urine Yeast MODERATE Urine Hemoglobin 3+ H Urine Glucose 0.25% H Urine Total Protein 2+ H Glucose Level 344 H Test 12/18/16 18:12 12/18/16 19:44 12/18/16 20:59 12/18/16 21:56 Bedside Glucose 324 H 346 H 271 H 237 H Test 12/18/16 22:54 12/19/16 00:13 12/19/16 01:03 12/19/16 03:04 Bedside Glucose 194 174 141 103 Test 12/19/16 04:00 12/19/16 04:52 12/19/16 06:45 12/19/16 07:00 White Blood Count 11.7 #H Red Blood Count 3.91 L Hemoglobin 10.5 L Hematocrit 32.7 L Mean Corpuscular Volume 83.6 Mean Corpuscular Hemoglobin 26.9 L Mean Corpuscular Hemoglobin Concent 32.1 Red Cell Distribution Width 13.6 Platelet Count 331 # Mean Platelet Volume 12.1 H Neutrophils % 82.3 H Lymphocytes % 10.3 L Monocytes % 6.4 Eosinophils % 0.0 Basophils % 0.1 Nucleated Red Blood Cells % 0.0 Neutrophils # 9.6 H Lymphocytes # 1.2 Monocytes # 0.8 Eosinophils # 0.0 Basophils # 0.0 Nucleated Red Blood Cells # 0.0 Sodium Level 137 Potassium Level 3.8 Chloride Level 105 Carbon Dioxide Level 27 Anion Gap 9 # Blood Urea Nitrogen 61 H Creatinine 3.29 H Glucose Level 105 # Calcium Level 7.2 L Phosphorus Level 6.7 H Magnesium Level 2.5 Total Bilirubin 0.0 L Direct Bilirubin 0.00 Indirect Bilirubin 0.0 Aspartate Amino Transf (AST/SGOT) 43 Alanine Aminotransferase (ALT/SGPT) 30 Alkaline Phosphatase 68 Total Protein 5.0 L Albumin 2.1 L Globulin 2.90 Albumin/Globulin Ratio 0.72 Bedside Glucose 100 99 Blood Gas Specimen Source Blood arterial Arterial Blood Date Drawn 12/19/2016 7:51:42 AM Arterial Blood pH (Temp corrected) 7.376 Arterial Blood pCO2 (Temp correct) 37.6 Arterial Blood pO2 (Temp corrected) 71.5 L Arterial Blood HCO3 21.5 L Arterial Blood Base Excess -3.2 L Arterial Blood Oxygen Saturation 93.0 L Leobardo Test ACCEPTAB Arterial Blood Gas Puncture Site Right Radial Arterial Blood Carboxyhemoglobin 0.2 Arterial Blood Methemoglobin 0.3 Blood Gas A-a O2 Differential 603.9 H Oxyhemoglobin Percent 92.5 L Total Hemoglobin 11.5 L Blood Gas Temperature 37.0 Blood Gas Respiration Rate 24.0 Blood Gas Actual Respiration Rate 24 Blood Gas Modality VENT - AC FiO2 100.0 Blood Gas Tidal Volume 500.0 Blood Gas Low PEEP Setting 8.0 Blood Gas Notified Whom JLD Blood Gas Notified Time 12/19/2016 8:25:26 AM Test 12/19/16 07:08 12/19/16 10:17 12/19/16 11:46 Lab Scanned Report REFERENCE LAB Bedside Glucose 116 128 Medications Medications Current Medications Insulin Glargine (Lantus) 33 unit DAILY@20 SC Last administered on 12/17/16 20 :51; Admin Dose 33 UNIT; Start 12/15/16 at 20:00 Ondansetron HCl (Zofran Inj) 4 mg Q6H PRN IV NAUSEA AND/OR VOMITING; Start at 13:00 Acetaminophen (Tylenol Tab) 650 mg Q6H PRN PO PAIN LEVEL 1-3 OR FEVER Last administered on 12/17/16 18:16; Admin Dose 650 MG; Start 12/15/16 at 13:00 Acetaminophen/ Hydrocodone Bitart ([place] (5/325)) 1 tab Q6H PRN PO PAIN LEVEL 4 -6 Last administered on 12/15/16 22:08; Admin Dose 1 TAB; Start 12/15/16 at 13: 00 Morphine Sulfate (morphine) 2 mg Q4H PRN IV PAIN LEVEL 7-10 Last administered on 12/19/16 08:30; Admin Dose 2 MG; Start 12/15/16 at 13:00 Magnesium Hydroxide (Milk Of Mag) 30 ml DAILY PRN PO CONSTIPATION; Start at 13:00 Bisacodyl (Dulcolax) 5 mg DAILY PRN PO CONSTIPATION; Start 12/15/16 at 13:00 Famotidine (Pepcid) 20 mg Q12 PO Last administered on 12/19/16 08:22; Admin Dose 20 MG; Start 12/15/16 at 21:00 Hydralazine HCl (Apresoline) 10 mg Q6H PRN IV SBP>160; Start 12/15/16 at 13:00 Amlodipine Besylate (Norvasc) 10 mg DAILY PO Last administered on 12/17/16 08: 18; Admin Dose 10 MG; Start 12/16/16 at 09:00 Aspirin (Aspirin) 325 mg DAILY PO Last administered on 12/19/16 08:21; Admin Dose 325 MG; Start 12/16/16 at 09:00 Atorvastatin Calcium (Lipitor) 80 mg QHS PO Last administered on 12/18/16 20: 52; Admin Dose 80 MG; Start 12/15/16 at 21:00 Carvedilol 25 mg 25 mg BID PO Last administered on 12/17/16 20:45; Admin Dose 25 MG; Start 12/15/16 at 21:00 Ceftriaxone Sodium (Rocephin) 50 ml @ 100 mls/hr Q24H IVPB Last administered on 12/18/16 15:50; Admin Dose 100 MLS/HR; Start 12/15/16 at 15:00 Heparin Sodium (Porcine) (Heparin (5000 Units/0.5 ml)) 5,000 unit BID SC Last administered on 12/19/16 08:23; Admin Dose 5,000 UNIT; Start 12/15/16 at 21:00 Miscellaneous Information 1 ea NOTE XX ; Start 12/15/16 at 14:00 Glucose (Glutose) 15 gm Q15M PRN PO DECREASED GLUCOSE; Start 12/15/16 at 14:00 Glucose (Glutose) 22.5 gm Q15M PRN PO DECREASED GLUCOSE; Start 12/15/16 at 14: 00 Dextrose (D50w Syringe) 25 ml Q15M PRN IV DECREASED GLUCOSE; Start 12/15/16 at 14:00 Dextrose (D50w Syringe) 50 ml Q15M PRN IV DECREASED GLUCOSE; Start 12/15/16 at 14:00 Glucagon (Glucagen) 1 mg Q15M PRN IM DECREASED GLUCOSE; Start 12/15/16 at 14:00 Glucose (Glutose) 15 gm Q15M PRN BUCCAL DECREASED GLUCOSE; Start 12/15/16 at 14 :00 Hydralazine HCl (Apresoline) 25 mg Q8 PO Last administered on 12/17/16 21:23; Admin Dose 25 MG; Start 12/15/16 at 22:00 Cholecalciferol 1000 unit 1,000 unit DAILY PO Last administered on 12/19/16 08 :22; Admin Dose 1,000 UNIT; Start 12/16/16 at 09:00 Midazolam HCl 50 ml @ 1 mls/hr TITRATE IV Last administered on 12/19/16 06:43 ; Admin Dose 7 MLS/HR; Start 12/18/16 at 03:30 Fentanyl 100 ml @ 2.5 mls/hr TITRATE IV Last administered on 12/18/16 19:48; Admin Dose 5 MLS/HR; Start 12/18/16 at 03:30 Norepinephrine 250 ml @ 1.875 mls/ hr TITRATE IV Last administered on 06:01; Admin Dose 9.375 MLS/HR; Start 12/18/16 at 06:00 Sodium Chloride 1,000 ml @ 50 mls/hr Q20H IV Last administered on 12/19/16 00 :28; Admin Dose 75 MLS/HR; Start 12/18/16 at 09:00 Levofloxacin/ Dextrose (Levaquin 250 Mg/ D5W 50 ml (Pmx)) 50 ml @ 50 mls/hr Q24H IVPB Last administered on 12/18/16 17:17; Admin Dose 50 MLS/HR; Start at 14:00 Dextrose (D50w Syringe) 25 ml Q15M PRN IV Till BS 80 mg/dL or above x2; Start 12/18/16 at 14:00 Dextrose 50 ml 50 ml Q15M PRN IV Till BS 80 mg/dL or above x2; Start 12/18/16 at 14:00 Midazolam HCl/ Sodium Chloride (Versed/NS) 100 ml @ 1 mls/hr TITRATE IV ; Start 12/18/16 at 15:00 IV Flush (NS 10 ml) 10 ml PRN PRN IV IV PROTOCOL; Start 12/18/16 at 17:00 Diagnostic Test (Pha) 1 ea 1 ea Q2H XX ; Start 12/19/16 at 10:00 Norepinephrine 32 mg/Dextrose 250 ml @ 0.46 mls/hr TITRATE IV ; Start 12/19/16 at 09:30 Methylprednisolone Sodium Succinate/ Sodium Chloride (Solu-Medrol/NS) 50 ml @ 100 mls/hr BID IV ; Start 12/19/16 at 21:00 DELIA BILLY MD Dec 19, 2016 12:23
[2016-12-19 12:31] LABS: MYELOPEROXIDASE ANTIBODY <1.0 AI; PROTEINASE-3 ANTIBODY <1.0 AI
[2016-12-19] MEDS: MIDAZOLAM DRIP 1 MG/ML in NS 100 ML IV SCH (15:00)
--- NOTE | 2016-12-19 15:49 | PN ---
Date/Time of Note Date/Time of Note DATE: 12/19/16 TIME: 15:42 Assessment/Plan VTE Prophylaxis VTE Prophylaxis Intervention: heparin, SCD's Lines/Catheters IV Catheter Type (from Nrsg): PICC Line Central line still needed: Yes Urinary Cath still in place: Yes Reason Cath still needed: other (indicate) (monitor I&O) Assessment/Plan Chief Complaint/Hosp Course Assessment and plan 1. Sepsis secondary to underlying committee acquired pneumonia. Noted with underlying septic shock. Continue on antibiotics. Continue with ID recommendations. Would for clinical improvement. Vasopressors as needed 2. Acute hypoxic respiratory failure. Likely secondary to underlying pneumonia. Of note patient was intubated on 12/18/2016. Continue with breathing treatments. Continue with linotype worker recommendations. Patient also with suspect granulomatosis with polyangiitis versus microscopic polyangiitis. Stewarding Supervisor consultation is pending. Follow-up with case management 3. Elevated troponins. Likely type II. Is in the setting of sepsis as well as acute renal insufficiency. Continue with cardiology recommendations. Continue telemetry monitoring 4. Acute kidney injury. Medications to renally dose. Likely from ATN. Follow-up with nephrology recommendations. Monitor renal panel 5. Type 2 diabetes. Continue insulin regimen. Will adjust as needed. 6. Dyslipidemia. Patient resumed on statin 7. Essential hypertension. on antihypertensives and adjust as needed 8. Morbid obesity. Weight reduction to be advised once patient more alert and oriented DVT prophylaxis: Heparin GERD prophylaxis: H2 lo Disposition and plan: Awaiting rheumatology consultation. Continue vent liberation trials as tolerated. Monitor for clinical improvement of respiratory status Discussed plan of care with Dr. Payan Problems: Subjective 24 Hr Interval Summary Free Text/Dictation Remains on mechanical ventilation and tolerating well. Family at bedside Exam/Review of Systems Vital Signs Vitals Vital Signs Date Time Temp Pulse Resp B/P Pulse Ox O2 Delivery O2 Flow Rate FiO2 12/19/16 14:00 53 106/65 100 Mechanical Ventilator 12/19/16 13:20 24 90 12/19/16 12:00 98.4 12/17/16 08:00 15.0 Intake and Output 12/18/16 12/18/16 12/19/16 15:00 23:00 07:00 Intake Total 645.500 ml 1026.625 ml 687.375 ml Output Total 365 ml 220 ml 240 ml Balance 280.500 ml 806.625 ml 447.375 ml Exam General: No apparent distress seen. No did to be morbidly obese Eyes: pupils equal round, Anicteric sclera Neck: No JVD seen Cardiac: Rate and S1-S2 auscultated Pulmonary: Diminished base lung sounds. No obvious wheezing heard. On mechanical ventilation GI: Soft nontender Extremities: Minimal edema bilateral lower extremity Skin: Noted with left great toe amputation. Minimal bilateral lower extremity edema Neurologic: And sedated Results Result Diagram: 12/19/16 04012/19/16 0400 Results 24 hrs Laboratory Tests Test 12/18/16 17:13 12/18/16 18:12 12/18/16 19:44 12/18/16 20:59 Bedside Glucose 304 H 324 H 346 H 271 H Test 12/18/16 21:56 12/18/16 22:54 12/19/16 00:13 12/19/16 01:03 Bedside Glucose 237 H 194 174 141 Test 12/19/16 03:04 12/19/16 04:00 12/19/16 04:52 12/19/16 06:45 Bedside Glucose 103 100 99 White Blood Count 11.7 #H Red Blood Count 3.91 L Hemoglobin 10.5 L Hematocrit 32.7 L Mean Corpuscular Volume 83.6 Mean Corpuscular Hemoglobin 26.9 L Mean Corpuscular Hemoglobin Concent 32.1 Red Cell Distribution Width 13.6 Platelet Count 331 # Mean Platelet Volume 12.1 H Neutrophils % 82.3 H Lymphocytes % 10.3 L Monocytes % 6.4 Eosinophils % 0.0 Basophils % 0.1 Nucleated Red Blood Cells % 0.0 Neutrophils # 9.6 H Lymphocytes # 1.2 Monocytes # 0.8 Eosinophils # 0.0 Basophils # 0.0 Nucleated Red Blood Cells # 0.0 Sodium Level 137 Potassium Level 3.8 Chloride Level 105 Carbon Dioxide Level 27 Anion Gap 9 # Blood Urea Nitrogen 61 H Creatinine 3.29 H Glucose Level 105 # Calcium Level 7.2 L Phosphorus Level 6.7 H Magnesium Level 2.5 Total Bilirubin 0.0 L Direct Bilirubin 0.00 Indirect Bilirubin 0.0 Aspartate Amino Transf (AST/SGOT) 43 Alanine Aminotransferase (ALT/SGPT) 30 Alkaline Phosphatase 68 Total Protein 5.0 L Albumin 2.1 L Globulin 2.90 Albumin/Globulin Ratio 0.72 Test 12/19/16 07:00 12/19/16 07:08 12/19/16 10:17 12/19/16 11:46 Blood Gas Specimen Source Blood arterial Arterial Blood Date Drawn 12/19/2016 7:51:42 AM Arterial Blood pH (Temp corrected) 7.376 Arterial Blood pCO2 (Temp correct) 37.6 Arterial Blood pO2 (Temp corrected) 71.5 L Arterial Blood HCO3 21.5 L Arterial Blood Base Excess -3.2 L Arterial Blood Oxygen Saturation 93.0 L Leobardo Test ACCEPTAB Arterial Blood Gas Puncture Site Right Radial Arterial Blood Carboxyhemoglobin 0.2 Arterial Blood Methemoglobin 0.3 Blood Gas A-a O2 Differential 603.9 H Oxyhemoglobin Percent 92.5 L Total Hemoglobin 11.5 L Blood Gas Temperature 37.0 Blood Gas Respiration Rate 24.0 Blood Gas Actual Respiration Rate 24 Blood Gas Modality VENT - AC FiO2 100.0 Blood Gas Tidal Volume 500.0 Blood Gas Low PEEP Setting 8.0 Blood Gas Notified Whom JLD Blood Gas Notified Time 12/19/2016 8:25:26 AM Lab Scanned Report REFERENCE LAB Bedside Glucose 116 128 Test 12/19/16 13:37 Bedside Glucose 124 Medications Medications Current Medications Insulin Glargine (Lantus) 33 unit DAILY@20 SC Last administered on 12/17/16 20 :51; Admin Dose 33 UNIT; Start 12/15/16 at 20:00 Ondansetron HCl (Zofran Inj) 4 mg Q6H PRN IV NAUSEA AND/OR VOMITING; Start at 13:00 Acetaminophen (Tylenol Tab) 650 mg Q6H PRN PO PAIN LEVEL 1-3 OR FEVER Last administered on 12/17/16 18:16; Admin Dose 650 MG; Start 12/15/16 at 13:00 Acetaminophen/ Hydrocodone Bitart ([place] (5/325)) 1 tab Q6H PRN PO PAIN LEVEL 4 -6 Last administered on 12/15/16 22:08; Admin Dose 1 TAB; Start 12/15/16 at 13: 00 Morphine Sulfate (morphine) 2 mg Q4H PRN IV PAIN LEVEL 7-10 Last administered on 12/19/16 08:30; Admin Dose 2 MG; Start 12/15/16 at 13:00 Magnesium Hydroxide (Milk Of Mag) 30 ml DAILY PRN PO CONSTIPATION; Start at 13:00 Bisacodyl (Dulcolax) 5 mg DAILY PRN PO CONSTIPATION; Start 12/15/16 at 13:00 Famotidine (Pepcid) 20 mg Q12 PO Last administered on 12/19/16 08:22; Admin Dose 20 MG; Start 12/15/16 at 21:00 Hydralazine HCl (Apresoline) 10 mg Q6H PRN IV SBP>160; Start 12/15/16 at 13:00 Amlodipine Besylate (Norvasc) 10 mg DAILY PO Last administered on 12/17/16 08: 18; Admin Dose 10 MG; Start 12/16/16 at 09:00 Aspirin (Aspirin) 325 mg DAILY PO Last administered on 12/19/16 08:21; Admin Dose 325 MG; Start 12/16/16 at 09:00 Atorvastatin Calcium (Lipitor) 80 mg QHS PO Last administered on 12/18/16 20: 52; Admin Dose 80 MG; Start 12/15/16 at 21:00 Carvedilol 25 mg 25 mg BID PO Last administered on 12/17/16 20:45; Admin Dose 25 MG; Start 12/15/16 at 21:00 Ceftriaxone Sodium (Rocephin) 50 ml @ 100 mls/hr Q24H IVPB Last administered on 12/18/16 15:50; Admin Dose 100 MLS/HR; Start 12/15/16 at 15:00 Heparin Sodium (Porcine) (Heparin (5000 Units/0.5 ml)) 5,000 unit BID SC Last administered on 12/19/16 08:23; Admin Dose 5,000 UNIT; Start 12/15/16 at 21:00 Miscellaneous Information 1 ea NOTE XX ; Start 12/15/16 at 14:00 Glucose (Glutose) 15 gm Q15M PRN PO DECREASED GLUCOSE; Start 12/15/16 at 14:00 Glucose (Glutose) 22.5 gm Q15M PRN PO DECREASED GLUCOSE; Start 12/15/16 at 14: 00 Dextrose (D50w Syringe) 25 ml Q15M PRN IV DECREASED GLUCOSE; Start 12/15/16 at 14:00 Dextrose (D50w Syringe) 50 ml Q15M PRN IV DECREASED GLUCOSE; Start 12/15/16 at 14:00 Glucagon (Glucagen) 1 mg Q15M PRN IM DECREASED GLUCOSE; Start 12/15/16 at 14:00 Glucose (Glutose) 15 gm Q15M PRN BUCCAL DECREASED GLUCOSE; Start 12/15/16 at 14 :00 Hydralazine HCl (Apresoline) 25 mg Q8 PO Last administered on 12/17/16 21:23; Admin Dose 25 MG; Start 12/15/16 at 22:00 Cholecalciferol 1000 unit 1,000 unit DAILY PO Last administered on 12/19/16 08 :22; Admin Dose 1,000 UNIT; Start 12/16/16 at 09:00 Fentanyl 100 ml @ 2.5 mls/hr TITRATE IV Last administered on 12/18/16 19:48; Admin Dose 5 MLS/HR; Start 12/18/16 at 03:30 Norepinephrine 250 ml @ 1.875 mls/ hr TITRATE IV Last administered on 06:01; Admin Dose 9.375 MLS/HR; Start 12/18/16 at 06:00 Sodium Chloride 1,000 ml @ 50 mls/hr Q20H IV Last administered on 12/19/16 00 :28; Admin Dose 75 MLS/HR; Start 12/18/16 at 09:00 Levofloxacin/ Dextrose (Levaquin 250 Mg/ D5W 50 ml (Pmx)) 50 ml @ 50 mls/hr Q24H IVPB Last administered on 12/18/16 17:17; Admin Dose 50 MLS/HR; Start at 14:00 Dextrose (D50w Syringe) 25 ml Q15M PRN IV Till BS 80 mg/dL or above x2; Start 12/18/16 at 14:00 Dextrose 50 ml 50 ml Q15M PRN IV Till BS 80 mg/dL or above x2; Start 12/18/16 at 14:00 Midazolam HCl/ Sodium Chloride (Versed/NS) 100 ml @ 1 mls/hr TITRATE IV ; Start 12/18/16 at 15:00 IV Flush (NS 10 ml) 10 ml PRN PRN IV IV PROTOCOL; Start 12/18/16 at 17:00 Diagnostic Test (Pha) 1 ea 1 ea Q2H XX ; Start 12/19/16 at 10:00 Norepinephrine 32 mg/Dextrose 250 ml @ 0.46 mls/hr TITRATE IV ; Start 12/19/16 at 09:30 Methylprednisolone Sodium Succinate/ Sodium Chloride (Solu-Medrol/NS) 50 ml @ 100 mls/hr BID IV ; Start 12/19/16 at 21:00 BREANA MORALES Dec 19, 2016 15:49
[2016-12-19] MEDS: CEFTRIAXONE 1 GM/50 ML (PMX) 50 ML IVPB SCH (15:50)
[2016-12-19] MEDS: LEVOFLOXACIN 250MG/D5W (PMX) 50 ML IVPB SCH (15:50)
--- NOTE | 2016-12-19 17:26 | CONS ---
Date/Time of Note Date/Time of Note DATE: 12/19/16 TIME: 17:21 Assessment/Plan Assessment/Plan Chief Complaint/Hosp Course ID PROGRESS NOTE TOTAL ABX DAY # # 4 => Ceftriaxone #4 + Levaquin #2 + Azith #3 + Levaquin #1 24H INTERVAL SUMMARY * Low grade temps -- NEW PICC 12/18 -- s/p Intubated early am 12/18/16-> hypoxic, agitated, confused last night * CXR 12/19: Decreased prominence of interstitial markings and patchy and confluent bilateral opacities indicating improving congestive changes and pneumonia. * CT ABD 12/16/16: IMPRESSION: * 1. There are patchy alveolar and nodular infiltrates in the lungs (some of which are peripheral) with peribronchial thickening suspicious for pneumonia. There is associated small pleural effusions. Follow-up imaging is recommended to ensure clearing. Consider cryptogenic organizing pneumonia. * 2. Inhomogeneity of the thyroid gland suggesting small thyroid nodules for which no additional follow-up is recommended unless clinically indicated. * 3. Enlarged mediastinal lymph nodes as described. * 4. Hepatomegaly. * 5. Atherosclerotic vascular disease. there is 6 enlarged main pulmonary artery outflow tract measuring up to 3.9 cm transverse. Findings suspicious for pulmonary arterial hypertension. * 6. Mucosal thickening of small bowel loops in the left upper abdomen. A small bowel enteritis might present this fashion. * 7. Osteoarthritis of the thoracic and lumbosacral spine. * 8. Anasarca. * 9. Small bilateral inguinal hernias containing fat. PHYSICAL EXAMINATION: GENERAL: VSS, NAD -> Morbid obese M, no fevers HEENT: ETT/OGT secure NECK: Supple, trach-> midline CHEST: Equal chest rise bilaterally, without dyspnea on observation / Vented HEART: Pulse RRR - NSR on tele ABDOMEN: Soft, obese EXTREMITIES: Warm w/generalized dependent edema SKIN: Warm, dry ID ASSESSMENT: 41 yo Morbid Obese M admitted with: 1. Sepsis secondary to underlying community-acquired pneumonia, hypotension, acute encephalopathy, DKA * DDx ?Silent Aspiration PNA - risk factors obesity ?CHRISTINE ? GERD * DDx Opportunistic vs cryptogenic organizing pneumonia => Cocci serology sent 2. Acute hypoxic respiratory failure=>Intubated early am 12/18 * PNA (+) * Pulmonary HTN per CT ?COPD * ?Obesity hypoventilation syndrome 3. Elevated troponins. Most probably a type 2 event from underlying sepsis and underlying acute kidney injury. 4. Acute kidney injury. 5. DKA - Type 2 diabetes mellitus.->A1c @ 14.6 6. Dyslipidemia. Continue statins. 7. Essential hypertension. . 8. Microcytic, hypochromic anemia (-) MRSA Nares (-)HIV Screen INVASIVES: * PIV ABX ALLERGIES: Vanco IV CURRENT ABX: TOTAL ABX DAY # 4 => Ceftriaxone #4 + Levaquin #2 DC Azith 12/18 ID RECOMMENDATIONS: 1.Continue ABX 2.. f/u on micro + serologies sent . Problems: Consultation Date/Type/Reason Admit Date/Time Dec 15, 2016 at 11:20 Type of Consultation: id Referring Provider: LEXII REED Exam/Review of Systems Vital Signs Vitals Vital Signs Date Time Temp Pulse Resp B/P Pulse Ox O2 Delivery O2 Flow Rate FiO2 12/19/16 14:00 53 106/65 100 Mechanical Ventilator 12/19/16 13:20 24 90 12/19/16 12:00 98.4 12/17/16 08:00 15.0 Intake and Output 12/18/16 12/18/16 12/19/16 15:00 23:00 07:00 Intake Total 645.500 ml 1026.625 ml 687.375 ml Output Total 365 ml 220 ml 240 ml Balance 280.500 ml 806.625 ml 447.375 ml Results Result Diagram: 12/19/16 0400 12/19/16 0400 Results 24 hrs Laboratory Tests Test 12/18/16 18:12 12/18/16 19:44 12/18/16 20:59 12/18/16 21:56 Bedside Glucose 324 H 346 H 271 H 237 H Test 12/18/16 22:54 12/19/16 00:13 12/19/16 01:03 12/19/16 03:04 Bedside Glucose 194 174 141 103 Test 12/19/16 04:00 12/19/16 04:52 12/19/16 06:45 12/19/16 07:00 White Blood Count 11.7 #H Red Blood Count 3.91 L Hemoglobin 10.5 L Hematocrit 32.7 L Mean Corpuscular Volume 83.6 Mean Corpuscular Hemoglobin 26.9 L Mean Corpuscular Hemoglobin Concent 32.1 Red Cell Distribution Width 13.6 Platelet Count 331 # Mean Platelet Volume 12.1 H Neutrophils % 82.3 H Lymphocytes % 10.3 L Monocytes % 6.4 Eosinophils % 0.0 Basophils % 0.1 Nucleated Red Blood Cells % 0.0 Neutrophils # 9.6 H Lymphocytes # 1.2 Monocytes # 0.8 Eosinophils # 0.0 Basophils # 0.0 Nucleated Red Blood Cells # 0.0 Sodium Level 137 Potassium Level 3.8 Chloride Level 105 Carbon Dioxide Level 27 Anion Gap 9 # Blood Urea Nitrogen 61 H Creatinine 3.29 H Glucose Level 105 # Calcium Level 7.2 L Phosphorus Level 6.7 H Magnesium Level 2.5 Total Bilirubin 0.0 L Direct Bilirubin 0.00 Indirect Bilirubin 0.0 Aspartate Amino Transf (AST/SGOT) 43 Alanine Aminotransferase (ALT/SGPT) 30 Alkaline Phosphatase 68 Total Protein 5.0 L Albumin 2.1 L Globulin 2.90 Albumin/Globulin Ratio 0.72 Bedside Glucose 100 99 Blood Gas Specimen Source Blood arterial Arterial Blood Date Drawn 12/19/2016 7:51:42 AM Arterial Blood pH (Temp corrected) 7.376 Arterial Blood pCO2 (Temp correct) 37.6 Arterial Blood pO2 (Temp corrected) 71.5 L Arterial Blood HCO3 21.5 L Arterial Blood Base Excess -3.2 L Arterial Blood Oxygen Saturation 93.0 L Leobardo Test ACCEPTAB Arterial Blood Gas Puncture Site Right Radial Arterial Blood Carboxyhemoglobin 0.2 Arterial Blood Methemoglobin 0.3 Blood Gas A-a O2 Differential 603.9 H Oxyhemoglobin Percent 92.5 L Total Hemoglobin 11.5 L Blood Gas Temperature 37.0 Blood Gas Respiration Rate 24.0 Blood Gas Actual Respiration Rate 24 Blood Gas Modality VENT - AC FiO2 100.0 Blood Gas Tidal Volume 500.0 Blood Gas Low PEEP Setting 8.0 Blood Gas Notified Whom JLD Blood Gas Notified Time 12/19/2016 8:25:26 AM Test 12/19/16 07:08 12/19/16 10:17 12/19/16 11:46 12/19/16 13:37 Lab Scanned Report REFERENCE LAB Bedside Glucose 116 128 124 Test 12/19/16 15:41 Bedside Glucose 120 Medications Medications Current Medications Insulin Glargine (Lantus) 33 unit DAILY@20 SC Last administered on 12/17/16t 20 :51; Admin Dose 33 UNIT; Start 12/15/16 at 20:00 Ondansetron HCl (Zofran Inj) 4 mg Q6H PRN IV NAUSEA AND/OR VOMITING; Start at 13:00 Acetaminophen (Tylenol Tab) 650 mg Q6H PRN PO PAIN LEVEL 1-3 OR FEVER Last administered on 12/17/16 18:16; Admin Dose 650 MG; Start 12/15/16 at 13:00 Acetaminophen/ Hydrocodone Bitart ([place] (5/325)) 1 tab Q6H PRN PO PAIN LEVEL 4 -6 Last administered on 12/15/16 22:08; Admin Dose 1 TAB; Start 12/15/16 at 13: 00 Morphine Sulfate (morphine) 2 mg Q4H PRN IV PAIN LEVEL 7-10 Last administered on 12/19/16 08:30; Admin Dose 2 MG; Start 12/15/16 at 13:00 Magnesium Hydroxide (Milk Of Mag) 30 ml DAILY PRN PO CONSTIPATION; Start at 13:00 Bisacodyl (Dulcolax) 5 mg DAILY PRN PO CONSTIPATION; Start 12/15/16 at 13:00 Famotidine (Pepcid) 20 mg Q12 PO Last administered on 12/19/16 08:22; Admin Dose 20 MG; Start 12/15/16 at 21:00 Hydralazine HCl (Apresoline) 10 mg Q6H PRN IV SBP>160; Start 12/15/16 at 13:00 Amlodipine Besylate (Norvasc) 10 mg DAILY PO Last administered on 12/17/16 08: 18; Admin Dose 10 MG; Start 12/16/16 at 09:00 Aspirin (Aspirin) 325 mg DAILY PO Last administered on 12/19/16 08:21; Admin Dose 325 MG; Start 12/16/16 at 09:00 Atorvastatin Calcium (Lipitor) 80 mg QHS PO Last administered on 12/18/16 20: 52; Admin Dose 80 MG; Start 12/15/16 at 21:00 Carvedilol 25 mg 25 mg BID PO Last administered on 12/17/16 20:45; Admin Dose 25 MG; Start 12/15/16 at 21:00 Ceftriaxone Sodium (Rocephin) 50 ml @ 100 mls/hr Q24H IVPB Last administered on 12/19/16 15:50; Admin Dose 100 MLS/HR; Start 12/15/16 at 15:00 Heparin Sodium (Porcine) (Heparin (5000 Units/0.5 ml)) 5,000 unit BID SC Last administered on 12/19/16 08:23; Admin Dose 5,000 UNIT; Start 12/15/16 at 21:00 Miscellaneous Information 1 ea NOTE XX ; Start 12/15/16 at 14:00 Glucose (Glutose) 15 gm Q15M PRN PO DECREASED GLUCOSE; Start 12/15/16 at 14:00 Glucose (Glutose) 22.5 gm Q15M PRN PO DECREASED GLUCOSE; Start 12/15/16 at 14: 00 Dextrose (D50w Syringe) 25 ml Q15M PRN IV DECREASED GLUCOSE; Start 12/15/16 at 14:00 Dextrose (D50w Syringe) 50 ml Q15M PRN IV DECREASED GLUCOSE; Start 12/15/16 at 14:00 Glucagon (Glucagen) 1 mg Q15M PRN IM DECREASED GLUCOSE; Start 12/15/16 at 14:00 Glucose (Glutose) 15 gm Q15M PRN BUCCAL DECREASED GLUCOSE; Start 12/15/16 at 14 :00 Hydralazine HCl (Apresoline) 25 mg Q8 PO Last administered on 12/17/16 21:23; Admin Dose 25 MG; Start 12/15/16 at 22:00 Cholecalciferol 1000 unit 1,000 unit DAILY PO Last administered on 12/19/16 08 :22; Admin Dose 1,000 UNIT; Start 12/16/16 at 09:00 Fentanyl 100 ml @ 2.5 mls/hr TITRATE IV Last administered on 12/19/16 12:00; Admin Dose 7.5 MLS/HR; Start 12/18/16 at 03:30 Sodium Chloride 1,000 ml @ 50 mls/hr Q20H IV Last administered on 12/19/16 13 :25; Admin Dose 50 MLS/HR; Start 12/18/16 at 09:00 Levofloxacin/ Dextrose (Levaquin 250 Mg/ D5W 50 ml (Pmx)) 50 ml @ 50 mls/hr Q24H IVPB Last administered on 12/19/16 15:50; Admin Dose 50 MLS/HR; Start at 14:00 Dextrose (D50w Syringe) 25 ml Q15M PRN IV Till BS 80 mg/dL or above x2; Start 12/18/16 at 14:00 Dextrose 50 ml 50 ml Q15M PRN IV Till BS 80 mg/dL or above x2; Start 12/18/16 at 14:00 Midazolam HCl/ Sodium Chloride (Versed/NS) 100 ml @ 1 mls/hr TITRATE IV ; Start 12/18/16 at 15:00 IV Flush (NS 10 ml) 10 ml PRN PRN IV IV PROTOCOL; Start 12/18/16 at 17:00 Diagnostic Test (Pha) 1 ea 1 ea Q2H XX Last administered on 12/19/16t 15:59; Admin Dose 1 EA; Start 12/19/16 at 10:00 Norepinephrine 32 mg/Dextrose 250 ml @ 0.46 mls/hr TITRATE IV ; Start 12/19/16 at 09:30 Methylprednisolone Sodium Succinate/ Sodium Chloride (Solu-Medrol/NS) 50 ml @ 100 mls/hr BID IV ; Start 12/19/16 at 21:00 MAGDALENO SIMMONS NP Dec 19, 2016 17:26
[2016-12-19 19:38] LABS: ANA SCREEN POSITIVE (NEGATIVE)
[2016-12-19] MEDS: INSULIN GLARGINE [LANtus] 3 ML PEN SC SCH (20:00)
[2016-12-19] MEDS: ATORVASTATIN 80 MG TAB PO SCH (21:02)
[2016-12-19] MEDS ORDERED: SOD CHLORIDE 0.9% 1,000 ML IV ONE (22:00)
[2016-12-19] MEDS ORDERED: LORAZEPAM 2 MG INJ IV ONE (22:00)
[2016-12-19] MEDS: METHYLPRED NA SUCC IV SCH (22:12)
[2016-12-19] MEDS: SOD CHLORIDE 0.9% IV SCH (22:12)
[2016-12-20] VITALS (36 sets, daily range): BP systolic 97–139; BP diastolic 57–85; PULSE 46–84; RESP 24–25
[2016-12-20] MEDS: ACCU-CHEK XX SCH ×12 (00:31→22:59)
[2016-12-20] MEDS: LEVALBUTEROL (HFA) 15 GM INHALER INH SCH ×4 (01:35→19:47)
[2016-12-20] MEDS: MIDAZOLAM DRIP 1 MG/ML in NS 100 ML IV SCH (05:28)
[2016-12-20 05:30] LABS: ADD SCAN DIFF NO
[2016-12-20 05:35] LABS: BASOPHILS % 0.1 % (0.0-2.0); HEMATOCRIT 33.5 % (42.0-52.0); HEMOGLOBIN 10.9 g/dl (14.0-18.0); LYMPHOCYTES # 0.7 10^3/ul (0.8-2.9); LYMPHOCYTES % 8.4 % (15.0-51.0); MEAN CORPUSCULAR HEMOGLOBIN 27.6 pg (29.0-33.0); MEAN CORPUSCULAR HGB CONC 32.5 g/dl (32.0-37.0); MEAN CORPUSCULAR VOLUME 84.8 fl (82.0-101.0); MEAN PLATELET VOLUME 12.4 fl (7.4-10.4); MONOCYTE # 0.4 10^3/ul (0.3-0.9); MONOCYTES % 5.3 % (0.0-11.0); NEUTROPHIL # 6.7 10^3/ul (1.6-7.5); NEUTROPHILS % 85.6 % (39.0-77.0); PLATELET COUNT 254 10^3/UL (140-415); RED BLOOD COUNT 3.95 10^6/ul (4.70-6.10); RED CELL DISTRIBUTION WIDTH 13.6 % (11.5-14.5); WHITE BLOOD COUNT 7.9 10^3/ul (4.8-10.8)
--- NOTE | 2016-12-20 05:44 | PN ---
DATE: 12/19/2016 SUBJECTIVE: The patient was critically ill on pressor support, although being weaned down. Urinary output has been minimal, about 10 to 15 mL an hour. The patient remains sedated. No other events n oted. OBJECTIVE: VITAL SIGNS: Blood pressure 132/68, respirations 24, pulse 56, temperature 98.7. HEENT: Head is normocephalic. NECK: Supple. HEART: Tachycardic. LUNGS: Show diminished breath sounds at the base. Positive rhonchi. ABDOMEN: Soft, nontender to palpation without rebound or guarding. EXTREMITIES: Negative for clubbing, cyanosis, no edema. DERMATOLOGIC: No rashes. MUSCULOSKELETAL: No joint effusions. NEUROLOGIC: No change in exam. MEDICATIONS: The patient's medications have been reviewed. LABORATORY DATA: Chest x-ray shows decreased interstitial markings and lung fluid opacities, improv ing congestion pneumonia. LABORATORY DATA: The patient has a white count 11.7, hemoglobin 10.4, hematocrit 32.7, platelet cou nt is 331. Sodium 137, potassium 2.9, chloride 105, BUN 61, creatinine 3.29. The patient's history of urinalysis shows coarse granular casts. ABG was reviewed. Cultures have been reviewed. ASSESSMENT AND PLAN: 1. Nonoliguric acute kidney injury with previous baseline creatinine 1.0 mg/dL. Etiology of acute kidney injury is secondary to acute tubular necrosis due to septic acute kidney injury, ischemic hyp operfusion, nephrotoxicity due to cocaine abuse. The patient remains in injury phase of acute tubul ar necrosis and his creatinine continues to decline, urinary output has been minimal. Plan at this point is to continue current treatment plan, supportive care, renally dose all meds, continue presso r support, IV antibiotics, continue IV hydration while the patient is on pressors. Will monitor juan sely. 2. Mineral bone disorder. The patient has hyperphosphatemia secondary to acute kidney injury. [place] sphorus levels have mildly improved. Will continue to monitor. 3. Respiratory acidosis, improved. Will continue to observe. 4. Anemia. Continue to monitor H and H levels. 5. Volume overload. The patient has noted lower extremity edema, questionable pulmonary edema. Rich avila currently at this point is in shock on receiving IV fluids. Would defer diuretic therapy whil e the patient is on pressor support. Once the patient is weaned off pressors will resume diuretics. 6. Ventilatory-dependent respiratory failure. Etiology secondary to bilateral pneumonia. The patie nt's vent settings and ABG is reviewed. Continue to monitor, follow up with pulmonary. 7. Septic shock secondary to pneumonia. Continue current treatment plan. Continue antibiotics, IV fluids, wean off pressors. Will decrease rate of fluids to 50 mL an hour. 8. Non-ST elevation myocardial infarction, type 2. Continue current medical management. 9. Diabetes. Continue current insulin regimen. 10. Polysubstance abuse. 11. Encephalopathy, etiology toxic metabolic. Please note I spent over 40 minutes of critical care time with this patient. Dictated By: LUIS JOSHI/SUNDEEP Conf#: [id number] DID#: [id number]
[2016-12-20 06:00] LABS: POTASSIUM 3.2 mmol/L (3.5-5.1)
[2016-12-20 06:02] LABS: CREATININE 2.67 mg/dl (0.61-1.24)
[2016-12-20 06:03] LABS: CALCIUM 7.3 mg/dl (8.4-10.2); PHOSPHORUS 5.3 mg/dl (2.5-4.9)
[2016-12-20 06:04] LABS: MAGNESIUM 2.5 mg/dl (1.7-2.5)
[2016-12-20] MEDS ORDERED: POTASSIUM CHLORIDE 30 MEQ in SOD CHLORIDE 0.9% 150 ML IVPB ONE (07:30)
[2016-12-20] MEDS: SEVELAMER CARBONATE 2.4 GM PKT PO SCH ×3 (07:35→17:35)
[2016-12-20] MEDS: FENTAnyl (DRIP) 1000 mcg/100mL 100 ML IV SCH ×2 (08:07→18:16)
[2016-12-20] MEDS: morphine 2 MG INJ IV PRN ×3 (08:07→19:57)
[2016-12-20] MEDS ORDERED: FUROSEMIDE 40 MG INJ IV ONE (08:30)
[2016-12-20] MEDS ORDERED: POTASSIUM CHLORIDE 20 MEQ POWDER FOR ORAL SOLN NGT ONE (08:30)
[2016-12-20] MEDS: METHYLPRED NA SUCC IV SCH ×2 (08:50→21:19)
[2016-12-20] MEDS: CHOLECALCIFEROL 1,000 UNIT TAB PO SCH (08:50)
[2016-12-20] MEDS: FAMOTIDINE 20 MG TAB PO SCH ×2 (08:50→21:12)
[2016-12-20] MEDS: ASPIRIN 325 MG TAB PO SCH (08:50)
[2016-12-20] MEDS: SOD CHLORIDE 0.9% IV SCH ×2 (08:50→21:19)
[2016-12-20] MEDS: HEPARIN 5,000 UNIT/0.5 ML VIAL SC SCH ×2 (08:59→21:13)
[2016-12-20] MEDS: AMLODIPINE 10 MG TAB PO SCH (08:59)
--- NOTE | 2016-12-20 09:10 | RADRPT ---
PROCEDURE: Chest 1 views. CLINICAL INDICATION: Shortness of breath TECHNIQUE: AP views of the chest was obtained. COMPARISON: Yesterday FINDINGS: The heart is large. Endotracheal and nasogastric tubes are stable and appear in grossly appropriate location. Left-sided PICC line is unchanged. The lungs are hypoinflated. Central pulmonary vascul ar congestion and interstitial prominence in both lungs is unchanged. Patchy infiltrates throughout both lungs have minimally decreased. Significant residual remains. Osseous structures are unchange d. IMPRESSION: Cardiomegaly . Central pulmonary vascular congestion and interstitial prominence in both lungs. Minimal interval decrease in patchy infiltrates throughout both lungs. Significant residual remains . RPTAT: AA .Quinten White MD, Date Time Electronically viewed and signed by .Quinten White MD, on 12/20/2016 09:10 .P/
--- NOTE | 2016-12-20 09:59 | PN ---
DATE: 12/20/2016 SUBJECTIVE: The patient remains critically ill on full ventilatory support with FIO2 90%. The patie nt was able to be weaned off pressor support earlier this morning. The patient has remained agitate d. No other acute events noted. No hemoptysis, hematemesis, hematochezia. OBJECTIVE: VITAL SIGNS: Blood pressure 135/84, respirations 24, pulse 46, temperature 95.1. I's AND O'S: The patient had 1.5 liters in, 1.4 liters out. HEENT: Head is normocephalic. NECK: Supple. HEART: Regular rate. LUNGS: Show diminished breath sounds at the base. ABDOMEN: Soft, nontender to palpation without guarding. EXTREMITIES: Negative for clubbing, cyanosis. Positive edema. DERMATOLOGIC: No rashes. MUSCULOSKELETAL: No joint effusions. NEUROLOGIC: No change in exam. MEDICATIONS: The patient's medications have been reviewed. IMAGING: Chest x-ray shows decreased markings and opacities. LABORATORY DATA: Shows sodium 140, potassium 2.2, chloride 107, BUN 67, creatinine 2.67, calcium 7. 3, phosphorus 5.3. White count 7.9, hemoglobin 10.9, hematocrit 33.5, platelet count 254. Patient' s ABG was reviewed. The patient has a positive DAISY ANCA is noted to be negative. Cultures have bee n reviewed. ASSESSMENT AND PLAN: 1. Nonoliguric acute kidney injury with previous baseline creatinine 1.0 mg/dL. Etiology of acute kidney injury secondary to acute tubular necrosis due to septic acute kidney injury and ischemic hyp operfusion, and nephrotoxicity from cocaine abuse. The patient may be entering recovery phase of ac victorina tubular necrosis, as renal function has improved in the last 24 hours with increased urinary out put. Plan at this point is to continue current treatment plan. Will continue supportive care, mita lly dose all meds, avoid nephrotoxins. Will continue to monitor closely. 2. Volume overload. Etiology secondary to acute kidney injury, recent IV fluids, sepsis. Will giv e the patient 1 dose of IV Lasix. Will adjust IV fluids to half normal saline at 50 mL an hour and m onitor closely. 3. Mineral bone disorder. The patient is hypophosphatemic secondary to acute kidney injury. Phosp horus levels have improved. Continue to monitor. 4. Respiratory acidosis, improved. 5. Anemia. Continue to monitor hemoglobin and hematocrit levels. 6. Ventilatory-dependent respiratory failure. Etiology secondary to pneumonia. The patient's vent settings and ABG is reviewed. Continue to monitor. Follow up with pulmonary. 7. Sepsis, status post shock secondary to pneumonia. The patient is currently on antibiotics, has weaned off pressors. Will therefore change IV fluids to half NS. Will monitor hemodynamics closely . 8. Non-ST elevation myocardial infarction type 2. Continue medical management. 9. Diabetes. The patient is on insulin drip. Continue to monitor. 10. Polysubstance abuse. 11. Encephalopathy. Etiology is toxic metabolic. Continue to monitor. 12. Hypokalemia. We will replete with potassium chloride 40 mEq p.o. x1. Dictated By: LUIS JOSHI/SUNDEEP Conf#: [id number] DID#: [id number]
[2016-12-20] MEDS: 1/2 NS + KCL 20 MEQ 1,000 ML IV SCH (10:00)
--- NOTE | 2016-12-20 10:59 | CONS ---
Date/Time of Note Date/Time of Note DATE: 12/20/16 TIME: 10:56 Assessment/Plan Assessment/Plan Additional Assessment/Plan Chest x-ray was reviewed from today which is showing significant improvement of bilateral pulmonary edema. Cardiomegaly is present. Endotracheal tube is at an adequate level. Ventilator settings; AC of 24, tidal volume 500, PEEP of 9, 90% FiO2. Patient currently on fentanyl 100 mics per hour, Versed 10 mg/h, insulin drip 1 U/h. Assessment recommendations; 1. Patient admitted with pulmonary edema and acute renal failure etiology is unclear. 2. Significant improvement in chest x-ray today. 3. Atrial fibrillation. 4. History of hypertension and diabetes. 5. Severe agitation patient requiring combination Versed and fentanyl drips. 6. 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 Patient maintained on pulse high- dose Solu-Medrol. Obtain ABG on current ventilator settings. Continue current supportive care. Patient's serum creatinine is improving. Patient may or may not need a renal biopsy. Further recommendations to be made once ABG results are obtained. Next 35 minutes critical care time was spent evaluating the patient. Consultation Date/Type/Reason Admit Date/Time Dec 15, 2016 at 11:20 Type of Consultation: Pulmonary/critical care Referring Provider: LEXII REED 24 HR Interval Summary Free Text/Dictation Patient condition remains critical. Still requiring full ventilator support at high FiO2. Also requiring sedation because of severe agitation. Has remained in atrial fibrillation. General exam; young male, orally intubated, arousable. Exam/Review of Systems Vital Signs Vitals Vital Signs Date Time Temp Pulse Resp B/P Pulse Ox O2 Delivery O2 Flow Rate FiO2 12/20/16 09:10 48 24 100 90 12/20/16 09:00 116/77 Mechanical Ventilator 12/20/16 08:00 96.1 12/17/16 08:00 15.0 Intake and Output 12/19/16 12/19/16 12/20/16 15:00 23:00 07:00 Intake Total 182.0 ml 679.0 ml 612 ml Output Total 305 ml 475 ml 650 ml Balance -123.0 ml 204.0 ml -38 ml Exam HEENT examination; supple neck, positive JVD. No lymphadenopathy. Midline trachea. No thyromegaly. Patient's has fair dentition. Pupils are equal and reactive to light. Orally intubated. No thyromegaly. Chest examination; diminished but clear vessel. S1-S2 audible, no murmurs. Irregular rhythm. Abdomen examination; soft, protuberant. Bowel sounds audible. No organomegaly. Extremity exam is; no peripheral edema. Pulses 1+ bilaterally. VENEER STAPLER examination; patient is arousable and moves all 4 extremities. Results Result Diagram: 12/20/16 0400 12/20/16 0400 Results 24 hrs Laboratory Tests Test 12/19/16 11:46 12/19/16 13:37 12/19/16 15:41 12/19/16 17:57 Bedside Glucose 128 124 120 168 Test 12/19/16 18:57 12/19/16 20:49 12/19/16 23:12 12/20/16 00:42 Bedside Glucose 117 103 130 99 Test 12/20/16 02:52 12/20/16 04:00 12/20/16 05:14 12/20/16 06:42 Bedside Glucose 100 129 111 White Blood Count 7.9 # Red Blood Count 3.95 L Hemoglobin 10.9 L Hematocrit 33.5 L Mean Corpuscular Volume 84.8 Mean Corpuscular Hemoglobin 27.6 L Mean Corpuscular Hemoglobin Concent 32.5 Red Cell Distribution Width 13.6 Platelet Count 254 # Mean Platelet Volume 12.4 H Neutrophils % 85.6 H Lymphocytes % 8.4 L Monocytes % 5.3 Eosinophils % 0.0 Basophils % 0.1 Nucleated Red Blood Cells % 0.0 Neutrophils # 6.7 Lymphocytes # 0.7 L Monocytes # 0.4 Eosinophils # 0.0 Basophils # 0.0 Nucleated Red Blood Cells # 0.0 Sodium Level 140 Potassium Level 3.2 L Chloride Level 107 Carbon Dioxide Level 25 Anion Gap 11 Blood Urea Nitrogen 67 H Creatinine 2.67 H Glucose Level 123 Calcium Level 7.3 L Phosphorus Level 5.3 H Magnesium Level 2.5 Test 12/20/16 08:02 12/20/16 10:33 Bedside Glucose 108 118 Medications Medications Current Medications Insulin Glargine (Lantus) 33 unit DAILY@20 SC Last administered on 12/17/16t 20 :51; Admin Dose 33 UNIT; Start 12/15/16 at 20:00 Ondansetron HCl (Zofran Inj) 4 mg Q6H PRN IV NAUSEA AND/OR VOMITING; Start at 13:00 Acetaminophen (Tylenol Tab) 650 mg Q6H PRN PO PAIN LEVEL 1-3 OR FEVER Last administered on 12/17/16 18:16; Admin Dose 650 MG; Start 12/15/16 at 13:00 Acetaminophen/ Hydrocodone Bitart ([place] (5/325)) 1 tab Q6H PRN PO PAIN LEVEL 4 -6 Last administered on 12/15/16 22:08; Admin Dose 1 TAB; Start 12/15/16 at 13: 00 Morphine Sulfate (morphine) 2 mg Q4H PRN IV PAIN LEVEL 7-10 Last administered on 12/20/16 08:07; Admin Dose 2 MG; Start 12/15/16 at 13:00 Magnesium Hydroxide (Milk Of Mag) 30 ml DAILY PRN PO CONSTIPATION; Start at 13:00 Bisacodyl (Dulcolax) 5 mg DAILY PRN PO CONSTIPATION; Start 12/15/16 at 13:00 Famotidine (Pepcid) 20 mg Q12 PO Last administered on 12/20/16 08:50; Admin Dose 20 MG; Start 12/15/16 at 21:00 Hydralazine HCl (Apresoline) 10 mg Q6H PRN IV SBP>160; Start 12/15/16 at 13:00 Amlodipine Besylate (Norvasc) 10 mg DAILY PO Last administered on 12/17/16 08: 18; Admin Dose 10 MG; Start 12/16/16 at 09:00 Aspirin (Aspirin) 325 mg DAILY PO Last administered on 12/20/16 08:50; Admin Dose 325 MG; Start 12/16/16 at 09:00 Atorvastatin Calcium (Lipitor) 80 mg QHS PO Last administered on 12/19/16 21: 02; Admin Dose 80 MG; Start 12/15/16 at 21:00 Carvedilol 25 mg 25 mg BID PO Last administered on 12/17/16 20:45; Admin Dose 25 MG; Start 12/15/16 at 21:00 Ceftriaxone Sodium (Rocephin) 50 ml @ 100 mls/hr Q24H IVPB Last administered on 12/19/16 15:50; Admin Dose 100 MLS/HR; Start 12/15/16 at 15:00 Heparin Sodium (Porcine) (Heparin (5000 Units/0.5 ml)) 5,000 unit BID SC Last administered on 12/20/16 08:59; Admin Dose 5,000 UNIT; Start 12/15/16 at 21:00 Miscellaneous Information 1 ea NOTE XX ; Start 12/15/16 at 14:00 Glucose (Glutose) 15 gm Q15M PRN PO DECREASED GLUCOSE; Start 12/15/16 at 14:00 Glucose (Glutose) 22.5 gm Q15M PRN PO DECREASED GLUCOSE; Start 12/15/16 at 14: 00 Dextrose (D50w Syringe) 25 ml Q15M PRN IV DECREASED GLUCOSE; Start 12/15/16 at 14:00 Dextrose (D50w Syringe) 50 ml Q15M PRN IV DECREASED GLUCOSE; Start 12/15/16 at 14:00 Glucagon (Glucagen) 1 mg Q15M PRN IM DECREASED GLUCOSE; Start 12/15/16 at 14:00 Glucose (Glutose) 15 gm Q15M PRN BUCCAL DECREASED GLUCOSE; Start 12/15/16 at 14 :00 Hydralazine HCl (Apresoline) 25 mg Q8 PO Last administered on 12/20/16 06:38; Admin Dose 25 MG; Start 12/15/16 at 22:00 Cholecalciferol 1000 unit 1,000 unit DAILY PO Last administered on 12/20/16 08 :50; Admin Dose 1,000 UNIT; Start 12/16/16 at 09:00 Fentanyl 100 ml @ 2.5 mls/hr TITRATE IV Last administered on 12/20/16 08:07; Admin Dose 10 MLS/HR; Start 12/18/16 at 03:30 Levofloxacin/ Dextrose (Levaquin 250 Mg/ D5W 50 ml (Pmx)) 50 ml @ 50 mls/hr Q24H IVPB Last administered on 12/19/16 15:50; Admin Dose 50 MLS/HR; Start at 14:00 Dextrose (D50w Syringe) 25 ml Q15M PRN IV Till BS 80 mg/dL or above x2; Start 12/18/16 at 14:00 Dextrose 50 ml 50 ml Q15M PRN IV Till BS 80 mg/dL or above x2; Start 12/18/16 at 14:00 Midazolam HCl/ Sodium Chloride (Versed/NS) 100 ml @ 1 mls/hr TITRATE IV Last administered on 12/20/16 05:28; Admin Dose 10 MLS/HR; Start 12/18/16 at 15:00 IV Flush (NS 10 ml) 10 ml PRN PRN IV IV PROTOCOL; Start 12/18/16 at 17:00 Diagnostic Test (Pha) 1 ea 1 ea Q2H XX Last administered on 12/20/16 10:44; Admin Dose 1 EA; Start 12/19/16 at 10:00 Norepinephrine 32 mg/Dextrose 250 ml @ 0.46 mls/hr TITRATE IV ; Start 12/19/16 at 09:30 Methylprednisolone Sodium Succinate 250 mg/Sodium Chloride 50 ml @ 100 mls/hr BID IV Last administered on 12/20/16 08:50; Admin Dose 100 MLS/HR; Start 12/19 at 21:00 Potassium Chloride/Sodium Chloride (1/2 NS + KCl 20 Meq) 1,000 ml @ 50 mls/hr Q20H IV Last administered on 12/20/16 10:00; Admin Dose 50 MLS/HR; Start 12/20 at 08:30 JESS STALLINGS Dec 20, 2016 10:59
[2016-12-20 12:38] LABS: AADO2 Arterial 497.1 mmHg (7.0-24.0); Allen Test ACCEPTAB; Arterial COHb 0.2 % (0.0-3.0); Arterial Fraction of Oxyhgb 96.4 % (93.0-99.0); Arterial HCO3 23.8 mmol/L (22.0-26.0); Arterial MetHb 0.3 % (0.0-1.5); Arterial Total Hemglobin 12.1 g/dl (12.0-18.0); MODE VENT - AC
--- NOTE | 2016-12-20 12:47 | CONS ---
Date/Time of Note Date/Time of Note DATE: 12/20/16 TIME: 12:42 Assessment/Plan Assessment/Plan Chief Complaint/Hosp Course IMPRESSION: 1. Positive troponin, assess significance.-no sig uptrend 2. Abnormal electrocardiogram with ST depressions with tachycardia and positive troponin, likely indicative of coronary artery disease.-improved ecg findings with improved HR 3. Hypertension, uncontrolled. 4. Dyslipidemia. 5. Diabetes mellitus. 6. Fevers to 104 documented here in the hospital.-still having low grade 7. Renal failure.-acute on chronic 8. Lower extremity edema, assess for congestive heart failure. 9. Hypokalemia. 10. Nausea and vomiting. 11. Chest pain with cough. 12.Resp failure s/p intubation 14. Bradycardia-to 40's Recc: -Tele -serial ecg's -Continue asa/statin -Continue abx's and f/u cx data -Continue bronchodilators and steroids. -Follow volume status closely -Hold coreg -Continue hydralazine/norvasc as tolerated with probable need to decrease dose Problems: Consultation Date/Type/Reason Admit Date/Time Dec 15, 2016 at 11:20 Initial Consult Date 12/15/2016 Type of Consultation: Cardiology Reason for Consultation Positive troponin Referring Provider: LEXII REED Exam/Review of Systems Vital Signs Vitals Vital Signs Date Time Temp Pulse Resp B/P Pulse Ox O2 Delivery O2 Flow Rate FiO2 12/20/16 11:29 52 25 97 90 12/20/16 11:00 99/62 Mechanical Ventilator 12/20/16 08:00 96.1 12/17/16 08:00 15.0 Intake and Output 12/19/16 12/19/16 12/20/16 15:00 23:00 07:00 Intake Total 182.0 ml 679.0 ml 612 ml Output Total 305 ml 475 ml 650 ml Balance -123.0 ml 204.0 ml -38 ml Exam Review of Systems: CONSTITUTIONAL: No fevers, chills. PULMONARY: No sob CARDIOVASCULAR: No chest pain/palpitations GASTROINTESTINAL: No nausea/vomiting. GENITOURINARY: No hematuria/dysuria. MUSCULOSKELETAL: No myagias/arthalgias. PSYCHIATRIC: The patient denies depression. NEUROLOGIC: No weakness Constitutional: other Psych: no complaints Head: normocephalic ENMT: mucosa pink and moist Neck: jvd (9 cm water), supple Respiratory: diminished breath sounds (at bases/B) Cardiovascular: regular rate and rhythm Gastrointestinal: non-tender, soft Musculoskeletal: muscle tone (normal) Extremities: edema (trace/B) Neurological: other (sedated) Results Result Diagram: 12/20/16 0400 12/20/16 0400 Results 24 hrs Laboratory Tests Test 12/19/16 13:37 12/19/16 15:41 12/19/16 17:57 12/19/16 18:57 Bedside Glucose 124 120 168 117 Test 12/19/16 20:49 12/19/16 23:12 12/20/16 00:42 12/20/16 02:52 Bedside Glucose 103 130 99 100 Test 12/20/16 04:00 12/20/16 05:14 12/20/16 06:42 12/20/16 08:02 White Blood Count 7.9 # Red Blood Count 3.95 L Hemoglobin 10.9 L Hematocrit 33.5 L Mean Corpuscular Volume 84.8 Mean Corpuscular Hemoglobin 27.6 L Mean Corpuscular Hemoglobin Concent 32.5 Red Cell Distribution Width 13.6 Platelet Count 254 # Mean Platelet Volume 12.4 H Neutrophils % 85.6 H Lymphocytes % 8.4 L Monocytes % 5.3 Eosinophils % 0.0 Basophils % 0.1 Nucleated Red Blood Cells % 0.0 Neutrophils # 6.7 Lymphocytes # 0.7 L Monocytes # 0.4 Eosinophils # 0.0 Basophils # 0.0 Nucleated Red Blood Cells # 0.0 Sodium Level 140 Potassium Level 3.2 L Chloride Level 107 Carbon Dioxide Level 25 Anion Gap 11 Blood Urea Nitrogen 67 H Creatinine 2.67 H Glucose Level 123 Calcium Level 7.3 L Phosphorus Level 5.3 H Magnesium Level 2.5 Bedside Glucose 129 111 108 Test 12/20/16 10:33 12/20/16 10:54 12/20/16 12:17 Bedside Glucose 118 124 Blood Gas Specimen Source Blood arterial Arterial Blood Date Drawn 12/20/2016 12:15:57 PM Arterial Blood pH (Temp corrected) 7.390 Arterial Blood pCO2 (Temp correct) 40.2 Arterial Blood pO2 (Temp corrected) 103.4 H Arterial Blood HCO3 23.8 Arterial Blood Base Excess -1.0 Arterial Blood Oxygen Saturation 96.9 Leobardo Test ACCEPTAB Arterial Blood Gas Puncture Site Right Radial Arterial Blood Carboxyhemoglobin 0.2 Arterial Blood Methemoglobin 0.3 Blood Gas A-a O2 Differential 497.1 H Oxyhemoglobin Percent 96.4 Total Hemoglobin 12.1 Blood Gas Temperature 37.0 Blood Gas Respiration Rate 24.0 Blood Gas Actual Respiration Rate 24 Blood Gas Modality VENT - AC FiO2 90.0 Blood Gas Tidal Volume 500.0 Blood Gas Low PEEP Setting 8.0 Blood Gas Notified Whom JLD Blood Gas Notified Time 12/20/2016 12:38:45 PM Medications Medications Current Medications Insulin Glargine (Lantus) 33 unit DAILY@20 SC Last administered on 12/17/16 20 :51; Admin Dose 33 UNIT; Start 12/15/16 at 20:00 Ondansetron HCl (Zofran Inj) 4 mg Q6H PRN IV NAUSEA AND/OR VOMITING; Start at 13:00 Acetaminophen (Tylenol Tab) 650 mg Q6H PRN PO PAIN LEVEL 1-3 OR FEVER Last administered on 12/17/16 18:16; Admin Dose 650 MG; Start 12/15/16 at 13:00 Acetaminophen/ Hydrocodone Bitart ([place] (5/325)) 1 tab Q6H PRN PO PAIN LEVEL 4 -6 Last administered on 12/15/16 22:08; Admin Dose 1 TAB; Start 12/15/16 at 13: 00 Morphine Sulfate (morphine) 2 mg Q4H PRN IV PAIN LEVEL 7-10 Last administered on 12/20/16 08:07; Admin Dose 2 MG; Start 12/15/16 at 13:00 Magnesium Hydroxide (Milk Of Mag) 30 ml DAILY PRN PO CONSTIPATION; Start at 13:00 Bisacodyl (Dulcolax) 5 mg DAILY PRN PO CONSTIPATION; Start 12/15/16 at 13:00 Famotidine (Pepcid) 20 mg Q12 PO Last administered on 12/20/16 08:50; Admin Dose 20 MG; Start 12/15/16 at 21:00 Hydralazine HCl (Apresoline) 10 mg Q6H PRN IV SBP>160; Start 12/15/16 at 13:00 Amlodipine Besylate (Norvasc) 10 mg DAILY PO Last administered on 12/17/16 08: 18; Admin Dose 10 MG; Start 12/16/16 at 09:00 Aspirin (Aspirin) 325 mg DAILY PO Last administered on 12/20/16 08:50; Admin Dose 325 MG; Start 12/16/16 at 09:00 Atorvastatin Calcium (Lipitor) 80 mg QHS PO Last administered on 12/19/16 21: 02; Admin Dose 80 MG; Start 12/15/16 at 21:00 Carvedilol 25 mg 25 mg BID PO Last administered on 12/17/16 20:45; Admin Dose 25 MG; Start 12/15/16 at 21:00 Ceftriaxone Sodium (Rocephin) 50 ml @ 100 mls/hr Q24H IVPB Last administered on 12/19/16 15:50; Admin Dose 100 MLS/HR; Start 12/15/16 at 15:00 Heparin Sodium (Porcine) (Heparin (5000 Units/0.5 ml)) 5,000 unit BID SC Last administered on 12/20/16 08:59; Admin Dose 5,000 UNIT; Start 12/15/16 at 21:00 Miscellaneous Information 1 ea NOTE XX ; Start 12/15/16 at 14:00 Glucose (Glutose) 15 gm Q15M PRN PO DECREASED GLUCOSE; Start 12/15/16 at 14:00 Glucose (Glutose) 22.5 gm Q15M PRN PO DECREASED GLUCOSE; Start 12/15/16 at 14: 00 Dextrose (D50w Syringe) 25 ml Q15M PRN IV DECREASED GLUCOSE; Start 12/15/16 at 14:00 Dextrose (D50w Syringe) 50 ml Q15M PRN IV DECREASED GLUCOSE; Start 12/15/16 at 14:00 Glucagon (Glucagen) 1 mg Q15M PRN IM DECREASED GLUCOSE; Start 12/15/16 at 14:00 Glucose (Glutose) 15 gm Q15M PRN BUCCAL DECREASED GLUCOSE; Start 12/15/16 at 14 :00 Hydralazine HCl (Apresoline) 25 mg Q8 PO Last administered on 12/20/16 06:38; Admin Dose 25 MG; Start 12/15/16 at 22:00 Cholecalciferol 1000 unit 1,000 unit DAILY PO Last administered on 12/20/16 08 :50; Admin Dose 1,000 UNIT; Start 12/16/16 at 09:00 Fentanyl 100 ml @ 2.5 mls/hr TITRATE IV Last administered on 12/20/16 08:07; Admin Dose 10 MLS/HR; Start 12/18/16 at 03:30 Levofloxacin/ Dextrose (Levaquin 250 Mg/ D5W 50 ml (Pmx)) 50 ml @ 50 mls/hr Q24H IVPB Last administered on 12/19/16 15:50; Admin Dose 50 MLS/HR; Start at 14:00 Dextrose (D50w Syringe) 25 ml Q15M PRN IV Till BS 80 mg/dL or above x2; Start 12/18/16 at 14:00 Dextrose 50 ml 50 ml Q15M PRN IV Till BS 80 mg/dL or above x2; Start 12/18/16 at 14:00 Midazolam HCl/ Sodium Chloride (Versed/NS) 100 ml @ 1 mls/hr TITRATE IV Last administered on 12/20/16 05:28; Admin Dose 10 MLS/HR; Start 12/18/16 at 15:00 IV Flush (NS 10 ml) 10 ml PRN PRN IV IV PROTOCOL; Start 12/18/16 at 17:00 Diagnostic Test (Pha) 1 ea 1 ea Q2H XX Last administered on 12/20/16 12:18; Admin Dose 1 EA; Start 12/19/16 at 10:00 Norepinephrine 32 mg/Dextrose 250 ml @ 0.46 mls/hr TITRATE IV ; Start 12/19/16 at 09:30 Methylprednisolone Sodium Succinate 250 mg/Sodium Chloride 50 ml @ 100 mls/hr BID IV Last administered on 12/20/16 08:50; Admin Dose 100 MLS/HR; Start 12/19 at 21:00 Potassium Chloride/Sodium Chloride (1/2 NS + KCl 20 Meq) 1,000 ml @ 50 mls/hr Q20H IV Last administered on 12/20/16 10:00; Admin Dose 50 MLS/HR; Start 12/20 at 08:30 VI ADAMES Dec 20, 2016 12:47
[2016-12-20] MEDS: LEVOFLOXACIN 250MG/D5W (PMX) 50 ML IVPB SCH (14:07)
--- NOTE | 2016-12-20 14:29 | PN ---
Date/Time of Note Date/Time of Note DATE: 12/20/16 TIME: 14:25 Assessment/Plan VTE Prophylaxis VTE Prophylaxis Intervention: heparin Lines/Catheters IV Catheter Type (from Nrs): PICC Line Central line still needed: Yes Urinary Cath still in place: Yes Reason Cath still needed: other (indicate) (monitor I&O) Assessment/Plan Chief Complaint/Hosp Course Assessment and plan 1. Sepsis secondary to underlying committee acquired pneumonia. Noted with underlying septic shock. Continue on antibiotics. Continue with ID recommendations. await for clinical improvement. off vasopressors at this time 2. Acute hypoxic respiratory failure. Likely secondary to underlying pneumonia. Of note patient was intubated on 12/18/2016. Continue with breathing treatments. Continue with glove printer recommendations. Patient also with suspect granulomatosis with polyangiitis versus microscopic polyangiitis. [employer] consultation is pending. Follow-up with case management 3. Elevated troponins. Likely type II. Is in the setting of sepsis as well as acute renal insufficiency. Continue with cardiology recommendations. Continue telemetry monitoring. stable at present 4. Acute kidney injury. Medications to renally dose. Likely from ATN. Follow-up with nephrology recommendations. Monitor renal panel 5. Type 2 diabetes. Continue insulin regimen. Will adjust as needed. stable at present 6. Dyslipidemia. Patient resumed on statin 7. Essential hypertension. on antihypertensives and adjust as needed 8. Morbid obesity. Weight reduction to be advised once patient more alert and oriented DVT prophylaxis: Heparin GERD prophylaxis: H2 lo Disposition and plan: Awaiting rheumatology consultation. CXR little better. cont vent weaning. cont icu monitoring Discussed plan of care with Dr. Payan Critical Care time : 30 minutes Problems: Subjective 24 Hr Interval Summary Free Text/Dictation remains intubated. unable to get weaned off vent today. was little agitated while on agitation. Exam/Review of Systems Vital Signs Vitals Vital Signs Date Time Temp Pulse Resp B/P Pulse Ox O2 Delivery O2 Flow Rate FiO2 12/20/16 14:00 53 97/64 97 Mechanical Ventilator 12/20/16 13:27 24 90 12/20/16 12:00 97.6 12/17/16 08:00 15.0 Intake and Output 12/19/16 12/19/16 12/20/16 15:00 23:00 07:00 Intake Total 182.0 ml 679.0 ml 612 ml Output Total 305 ml 475 ml 650 ml Balance -123.0 ml 204.0 ml -38 ml Exam General: morbidly obese, little agitated while on sedation Eyes: pupils equal round Neck: No JVD seen still Cardiac: remains regular rate Pulmonary: minimally coarse bilaterally. dim at bases still GI: Soft nontender Extremities: Minimal edema bilateral lower extremity still Skin: Noted with left great toe amputation. Minimal bilateral lower extremity edema Neurologic: And sedated Results Result Diagram: 12/20/16 0400 12/20/16 0400 Results 24 hrs Laboratory Tests Test 12/19/16 15:41 12/19/16 17:57 12/19/16 18:57 12/19/16 20:49 Bedside Glucose 120 168 117 103 Test 12/19/16 23:12 12/20/16 00:42 12/20/16 02:52 12/20/16 04:00 Bedside Glucose 130 99 100 White Blood Count 7.9 # Red Blood Count 3.95 L Hemoglobin 10.9 L Hematocrit 33.5 L Mean Corpuscular Volume 84.8 Mean Corpuscular Hemoglobin 27.6 L Mean Corpuscular Hemoglobin Concent 32.5 Red Cell Distribution Width 13.6 Platelet Count 254 # Mean Platelet Volume 12.4 H Neutrophils % 85.6 H Lymphocytes % 8.4 L Monocytes % 5.3 Eosinophils % 0.0 Basophils % 0.1 Nucleated Red Blood Cells % 0.0 Neutrophils # 6.7 Lymphocytes # 0.7 L Monocytes # 0.4 Eosinophils # 0.0 Basophils # 0.0 Nucleated Red Blood Cells # 0.0 Sodium Level 140 Potassium Level 3.2 L Chloride Level 107 Carbon Dioxide Level 25 Anion Gap 11 Blood Urea Nitrogen 67 H Creatinine 2.67 H Glucose Level 123 Calcium Level 7.3 L Phosphorus Level 5.3 H Magnesium Level 2.5 Test 12/20/16 05:14 12/20/16 06:42 12/20/16 08:02 12/20/16 10:33 Bedside Glucose 129 111 108 118 Test 12/20/16 10:54 12/20/16 12:17 Blood Gas Specimen Source Blood arterial Arterial Blood Date Drawn 12/20/2016 12:15:57 PM Arterial Blood pH (Temp corrected) 7.390 Arterial Blood pCO2 (Temp correct) 40.2 Arterial Blood pO2 (Temp corrected) 103.4 H Arterial Blood HCO3 23.8 Arterial Blood Base Excess -1.0 Arterial Blood Oxygen Saturation 96.9 Leobardo Test ACCEPTAB Arterial Blood Gas Puncture Site Right Radial Arterial Blood Carboxyhemoglobin 0.2 Arterial Blood Methemoglobin 0.3 Blood Gas A-a O2 Differential 497.1 H Oxyhemoglobin Percent 96.4 Total Hemoglobin 12.1 Blood Gas Temperature 37.0 Blood Gas Respiration Rate 24.0 Blood Gas Actual Respiration Rate 24 Blood Gas Modality VENT - AC FiO2 90.0 Blood Gas Tidal Volume 500.0 Blood Gas Low PEEP Setting 8.0 Blood Gas Notified Whom JLD Blood Gas Notified Time 12/20/2016 12:38:45 PM Bedside Glucose 124 Medications Medications Current Medications Insulin Glargine (Lantus) 33 unit DAILY@20 SC Last administered on 12/17/16 20 :51; Admin Dose 33 UNIT; Start 12/15/16 at 20:00 Ondansetron HCl (Zofran Inj) 4 mg Q6H PRN IV NAUSEA AND/OR VOMITING; Start at 13:00 Acetaminophen (Tylenol Tab) 650 mg Q6H PRN PO PAIN LEVEL 1-3 OR FEVER Last administered on 12/17/16 18:16; Admin Dose 650 MG; Start 12/15/16 at 13:00 Acetaminophen/ Hydrocodone Bitart ([place] (5/325)) 1 tab Q6H PRN PO PAIN LEVEL 4 -6 Last administered on 12/15/16 22:08; Admin Dose 1 TAB; Start 12/15/16 at 13: 00 Morphine Sulfate (morphine) 2 mg Q4H PRN IV PAIN LEVEL 7-10 Last administered on 12/20/16 08:07; Admin Dose 2 MG; Start 12/15/16 at 13:00 Magnesium Hydroxide (Milk Of Mag) 30 ml DAILY PRN PO CONSTIPATION; Start at 13:00 Bisacodyl (Dulcolax) 5 mg DAILY PRN PO CONSTIPATION; Start 12/15/16 at 13:00 Famotidine (Pepcid) 20 mg Q12 PO Last administered on 12/20/16 08:50; Admin Dose 20 MG; Start 12/15/16 at 21:00 Hydralazine HCl (Apresoline) 10 mg Q6H PRN IV SBP>160; Start 12/15/16 at 13:00 Aspirin (Aspirin) 325 mg DAILY PO Last administered on 12/20/16 08:50; Admin Dose 325 MG; Start 12/16/16 at 09:00 Atorvastatin Calcium 80 mg 80 mg QHS PO Last administered on 12/19/16 21:02; Admin Dose 80 MG; Start 12/15/16 at 21:00 Ceftriaxone Sodium (Rocephin) 50 ml @ 100 mls/hr Q24H IVPB Last administered on 12/19/16 15:50; Admin Dose 100 MLS/HR; Start 12/15/16 at 15:00 Heparin Sodium (Porcine) (Heparin (5000 Units/0.5 ml)) 5,000 unit BID SC Last administered on 12/20/16 08:59; Admin Dose 5,000 UNIT; Start 12/15/16 at 21:00 Miscellaneous Information 1 ea NOTE XX ; Start 12/15/16 at 14:00 Glucose (Glutose) 15 gm Q15M PRN PO DECREASED GLUCOSE; Start 12/15/16 at 14:00 Glucose (Glutose) 22.5 gm Q15M PRN PO DECREASED GLUCOSE; Start 12/15/16 at 14: 00 Dextrose (D50w Syringe) 25 ml Q15M PRN IV DECREASED GLUCOSE; Start 12/15/16 at 14:00 Dextrose (D50w Syringe) 50 ml Q15M PRN IV DECREASED GLUCOSE; Start 12/15/16 at 14:00 Glucagon (Glucagen) 1 mg Q15M PRN IM DECREASED GLUCOSE; Start 12/15/16 at 14:00 Glucose (Glutose) 15 gm Q15M PRN BUCCAL DECREASED GLUCOSE; Start 12/15/16 at 14 :00 Hydralazine HCl (Apresoline) 25 mg Q8 PO Last administered on 12/20/16 06:38; Admin Dose 25 MG; Start 12/15/16 at 22:00 Cholecalciferol 1000 unit 1,000 unit DAILY PO Last administered on 12/20/16 08 :50; Admin Dose 1,000 UNIT; Start 12/16/16 at 09:00 Fentanyl 100 ml @ 2.5 mls/hr TITRATE IV Last administered on 12/20/16 08:07; Admin Dose 10 MLS/HR; Start 12/18/16 at 03:30 Levofloxacin/ Dextrose (Levaquin 250 Mg/ D5W 50 ml (Pmx)) 50 ml @ 50 mls/hr Q24H IVPB Last administered on 12/20/16 14:07; Admin Dose 50 MLS/HR; Start at 14:00 Dextrose (D50w Syringe) 25 ml Q15M PRN IV Till BS 80 mg/dL or above x2; Start 12/18/16 at 14:00 Dextrose 50 ml 50 ml Q15M PRN IV Till BS 80 mg/dL or above x2; Start 12/18/16 at 14:00 Midazolam HCl/ Sodium Chloride (Versed/NS) 100 ml @ 1 mls/hr TITRATE IV Last administered on 12/20/16 05:28; Admin Dose 10 MLS/HR; Start 12/18/16 at 15:00 IV Flush (NS 10 ml) 10 ml PRN PRN IV IV PROTOCOL; Start 12/18/16 at 17:00 Diagnostic Test (Pha) 1 ea 1 ea Q2H XX Last administered on 12/20/16 14:07; Admin Dose 1 EA; Start 12/19/16 at 10:00 Norepinephrine 32 mg/Dextrose 250 ml @ 0.46 mls/hr TITRATE IV ; Start 12/19/16 at 09:30 Methylprednisolone Sodium Succinate 250 mg/Sodium Chloride 50 ml @ 100 mls/hr BID IV Last administered on 12/20/16 08:50; Admin Dose 100 MLS/HR; Start 12/19 at 21:00 Potassium Chloride/Sodium Chloride (1/2 NS + KCl 20 Meq) 1,000 ml @ 50 mls/hr Q20H IV Last administered on 12/20/16 10:00; Admin Dose 50 MLS/HR; Start 12/20 at 08:30 Amlodipine Besylate 5 mg 5 mg DAILY PO ; Start 12/21/16 at 09:00 Midazolam HCl (Versed) 50 ml @ 1 mls/hr TITRATE IV ; Start 12/20/16 at 14:00 BREANA MORALES Dec 20, 2016 14:29
[2016-12-20 14:33] LABS: MYCOPLASMA PNEUMONIAE AB (IGG) 2.47
[2016-12-20] MEDS: CEFTRIAXONE 1 GM/50 ML (PMX) 50 ML IVPB SCH (15:02)
[2016-12-20] MEDS: MIDAZOLAM (DRIP) 50 mg/50 mL 50 ML IV SCH ×2 (15:03→20:21)
[2016-12-20 15:33] LABS: POTASSIUM 3.7 mmol/L (3.5-5.1)
[2016-12-20 15:35] LABS: CREATININE 2.62 mg/dl (0.61-1.24)
[2016-12-20 15:36] LABS: CALCIUM 7.2 mg/dl (8.4-10.2)
--- NOTE | 2016-12-20 16:11 | CONS ---
Date/Time of Note Date/Time of Note DATE: 12/20/16 TIME: 16:09 Assessment/Plan Assessment/Plan Chief Complaint/Hosp Course ID PROGRESS NOTE TOTAL ABX DAY # 5 => Ceftriaxone #5 + Levaquin #3 + Azith #3 24H INTERVAL SUMMARY * Stable, no fevers, WBC normalized, s/p Intubated early am 12/18/16 * CXR 12/20: .IMPRESSION: Cardiomegaly .Central pulmonary vascular congestion and interstitial prominence in both lungs. Minimal interval decrease in patchy infiltrates throughout both lungs. Significant residual remains. PHYSICAL EXAMINATION: GENERAL: -> Morbid obese M, noncommunicative, orally intubated on the Vent, no fevers HEENT: ETT/OGT secure NECK: Supple, trach-> midline CHEST: Equal chest rise bilaterally, without dyspnea on observation / Vented HEART: Pulse RRR - NSR on tele ABDOMEN: Soft, obese EXTREMITIES: Warm w/generalized dependent edema SKIN: Warm, dry ID ASSESSMENT: 41 yo Morbid Obese M admitted with: 1. Sepsis secondary to underlying community-acquired pneumonia, hypotension, acute encephalopathy, DKA * DDx ?Silent Aspiration PNA - risk factors obesity ?CHRISTINE ? GERD * DDx Opportunistic vs cryptogenic organizing pneumonia => Cocci serology sent 2. Acute hypoxic respiratory failure=>Intubated early am 12/18 * PNA (+) * Pulmonary HTN per CT ?COPD * ?Obesity hypoventilation syndrome 3. Elevated troponins. Most probably a type 2 event from underlying sepsis and underlying acute kidney injury. 4. Acute kidney injury. 5. DKA - Type 2 diabetes mellitus.->A1c @ 14.6 6. Dyslipidemia. Continue statins. 7. Essential hypertension. . 8. Microcytic, hypochromic anemia (-) MRSA Nares (-)HIV Screen INVASIVES: * PIV ABX ALLERGIES: Vanco IV CURRENT ABX: TOTAL ABX DAY # 5 => Ceftriaxone #5 + Levaquin #3 DC Azith 12/18 ID RECOMMENDATIONS: 1.Continue ABX 2.. f/u on micro + serologies sent . Problems: Consultation Date/Type/Reason Admit Date/Time Dec 15, 2016 at 11:20 Type of Consultation: ID Referring Provider: LEXII REED Exam/Review of Systems Vital Signs Vitals Vital Signs Date Time Temp Pulse Resp B/P Pulse Ox O2 Delivery O2 Flow Rate FiO2 12/20/16 14:15 100 80 12/20/16 14:00 53 97/64 Mechanical Ventilator 12/20/16 13:27 24 12/20/16 12:00 97.6 12/17/16 08:00 15.0 Intake and Output 12/19/16 12/19/16 12/20/16 15:00 23:00 07:00 Intake Total 182.0 ml 679.0 ml 612 ml Output Total 305 ml 475 ml 650 ml Balance -123.0 ml 204.0 ml -38 ml Results Result Diagram: 12/20/16 0400 12/20/16 1502 Results 24 hrs Laboratory Tests Test 12/19/16 17:57 12/19/16 18:57 12/19/16 20:49 12/19/16 23:12 Bedside Glucose 168 117 103 130 Test 12/20/16 00:42 12/20/16 02:52 12/20/16 04:00 12/20/16 05:14 Bedside Glucose 99 100 129 White Blood Count 7.9 # Red Blood Count 3.95 L Hemoglobin 10.9 L Hematocrit 33.5 L Mean Corpuscular Volume 84.8 Mean Corpuscular Hemoglobin 27.6 L Mean Corpuscular Hemoglobin Concent 32.5 Red Cell Distribution Width 13.6 Platelet Count 254 # Mean Platelet Volume 12.4 H Neutrophils % 85.6 H Lymphocytes % 8.4 L Monocytes % 5.3 Eosinophils % 0.0 Basophils % 0.1 Nucleated Red Blood Cells % 0.0 Neutrophils # 6.7 Lymphocytes # 0.7 L Monocytes # 0.4 Eosinophils # 0.0 Basophils # 0.0 Nucleated Red Blood Cells # 0.0 Sodium Level 140 Potassium Level 3.2 L Chloride Level 107 Carbon Dioxide Level 25 Anion Gap 11 Blood Urea Nitrogen 67 H Creatinine 2.67 H Glucose Level 123 Calcium Level 7.3 L Phosphorus Level 5.3 H Magnesium Level 2.5 Test 12/20/16 06:42 12/20/16 08:02 12/20/16 10:33 12/20/16 10:54 Bedside Glucose 111 108 118 Blood Gas Specimen Source Blood arterial Arterial Blood Date Drawn 12/20/2016 12:15:57 PM Arterial Blood pH (Temp corrected) 7.390 Arterial Blood pCO2 (Temp correct) 40.2 Arterial Blood pO2 (Temp corrected) 103.4 H Arterial Blood HCO3 23.8 Arterial Blood Base Excess -1.0 Arterial Blood Oxygen Saturation 96.9 Leobardo Test ACCEPTAB Arterial Blood Gas Puncture Site Right Radial Arterial Blood Carboxyhemoglobin 0.2 Arterial Blood Methemoglobin 0.3 Blood Gas A-a O2 Differential 497.1 H Oxyhemoglobin Percent 96.4 Total Hemoglobin 12.1 Blood Gas Temperature 37.0 Blood Gas Respiration Rate 24.0 Blood Gas Actual Respiration Rate 24 Blood Gas Modality VENT - AC FiO2 90.0 Blood Gas Tidal Volume 500.0 Blood Gas Low PEEP Setting 8.0 Blood Gas Notified Whom JLD Blood Gas Notified Time 12/20/2016 12:38:45 PM Test 12/20/16 12:17 12/20/16 14:06 12/20/16 15:02 Bedside Glucose 124 105 Sodium Level 140 Potassium Level 3.7 Chloride Level 107 Carbon Dioxide Level 26 Anion Gap 11 Blood Urea Nitrogen 64 H Creatinine 2.62 H Glucose Level 125 Calcium Level 7.2 L Medications Medications Current Medications Insulin Glargine (Lantus) 33 unit DAILY@20 SC Last administered on 12/17/16 20 :51; Admin Dose 33 UNIT; Start 12/15/16 at 20:00 Ondansetron HCl (Zofran Inj) 4 mg Q6H PRN IV NAUSEA AND/OR VOMITING; Start at 13:00 Acetaminophen (Tylenol Tab) 650 mg Q6H PRN PO PAIN LEVEL 1-3 OR FEVER Last administered on 12/17/16 18:16; Admin Dose 650 MG; Start 12/15/16 at 13:00 Acetaminophen/ Hydrocodone Bitart ([place] (5/325)) 1 tab Q6H PRN PO PAIN LEVEL 4 -6 Last administered on 12/15/16 22:08; Admin Dose 1 TAB; Start 12/15/16 at 13: 00 Morphine Sulfate (morphine) 2 mg Q4H PRN IV PAIN LEVEL 7-10 Last administered on 12/20/16 16:03; Admin Dose 2 MG; Start 12/15/16 at 13:00 Magnesium Hydroxide (Milk Of Mag) 30 ml DAILY PRN PO CONSTIPATION; Start at 13:00 Bisacodyl (Dulcolax) 5 mg DAILY PRN PO CONSTIPATION; Start 12/15/16 at 13:00 Famotidine (Pepcid) 20 mg Q12 PO Last administered on 12/20/16 08:50; Admin Dose 20 MG; Start 12/15/16 at 21:00 Hydralazine HCl (Apresoline) 10 mg Q6H PRN IV SBP>160; Start 12/15/16 at 13:00 Aspirin (Aspirin) 325 mg DAILY PO Last administered on 12/20/16 08:50; Admin Dose 325 MG; Start 12/16/16 at 09:00 Atorvastatin Calcium 80 mg 80 mg QHS PO Last administered on 12/19/16 21:02; Admin Dose 80 MG; Start 12/15/16 at 21:00 Ceftriaxone Sodium (Rocephin) 50 ml @ 100 mls/hr Q24H IVPB Last administered on 12/20/16 15:02; Admin Dose 100 MLS/HR; Start 12/15/16 at 15:00 Heparin Sodium (Porcine) (Heparin (5000 Units/0.5 ml)) 5,000 unit BID SC Last administered on 12/20/16 08:59; Admin Dose 5,000 UNIT; Start 12/15/16 at 21:00 Miscellaneous Information 1 ea NOTE XX ; Start 12/15/16 at 14:00 Glucose (Glutose) 15 gm Q15M PRN PO DECREASED GLUCOSE; Start 12/15/16 at 14:00 Glucose (Glutose) 22.5 gm Q15M PRN PO DECREASED GLUCOSE; Start 12/15/16 at 14: 00 Dextrose (D50w Syringe) 25 ml Q15M PRN IV DECREASED GLUCOSE; Start 12/15/16 at 14:00 Dextrose (D50w Syringe) 50 ml Q15M PRN IV DECREASED GLUCOSE; Start 12/15/16 at 14:00 Glucagon (Glucagen) 1 mg Q15M PRN IM DECREASED GLUCOSE; Start 12/15/16 at 14:00 Glucose (Glutose) 15 gm Q15M PRN BUCCAL DECREASED GLUCOSE; Start 12/15/16 at 14 :00 Hydralazine HCl (Apresoline) 25 mg Q8 PO Last administered on 12/20/16 06:38; Admin Dose 25 MG; Start 12/15/16 at 22:00 Cholecalciferol 1000 unit 1,000 unit DAILY PO Last administered on 12/20/16 08 :50; Admin Dose 1,000 UNIT; Start 12/16/16 at 09:00 Fentanyl 100 ml @ 2.5 mls/hr TITRATE IV Last administered on 12/20/16 08:07; Admin Dose 10 MLS/HR; Start 12/18/16 at 03:30 Levofloxacin/ Dextrose (Levaquin 250 Mg/ D5W 50 ml (Pmx)) 50 ml @ 50 mls/hr Q24H IVPB Last administered on 12/20/16 14:07; Admin Dose 50 MLS/HR; Start at 14:00 Dextrose (D50w Syringe) 25 ml Q15M PRN IV Till BS 80 mg/dL or above x2; Start 12/18/16 at 14:00 Dextrose 50 ml 50 ml Q15M PRN IV Till BS 80 mg/dL or above x2; Start 12/18/16 at 14:00 Midazolam HCl/ Sodium Chloride (Versed/NS) 100 ml @ 1 mls/hr TITRATE IV Last administered on 12/20/16 05:28; Admin Dose 10 MLS/HR; Start 12/18/16 at 15:00 IV Flush (NS 10 ml) 10 ml PRN PRN IV IV PROTOCOL; Start 12/18/16 at 17:00 Diagnostic Test (Pha) 1 ea 1 ea Q2H XX Last administered on 12/20/16 16:03; Admin Dose 1 EA; Start 12/19/16 at 10:00 Norepinephrine 32 mg/Dextrose 250 ml @ 0.46 mls/hr TITRATE IV ; Start 12/19/16 at 09:30 Methylprednisolone Sodium Succinate 250 mg/Sodium Chloride 50 ml @ 100 mls/hr BID IV Last administered on 12/20/16 08:50; Admin Dose 100 MLS/HR; Start 12/19 at 21:00 Potassium Chloride/Sodium Chloride (1/2 NS + KCl 20 Meq) 1,000 ml @ 50 mls/hr Q20H IV Last administered on 12/20/16 10:00; Admin Dose 50 MLS/HR; Start 12/20 at 08:30 Amlodipine Besylate 5 mg 5 mg DAILY PO ; Start 12/21/16 at 09:00 Midazolam HCl (Versed) 50 ml @ 1 mls/hr TITRATE IV Last administered on 15:03; Admin Dose 10 MLS/HR; Start 12/20/16 at 14:00 MAGDALENO SIMMONS NP Dec 20, 2016 16:11
[2016-12-20] MEDS: INSULIN GLARGINE [LANtus] 3 ML PEN SC SCH (20:00)
[2016-12-20] MEDS ORDERED: PROPOFOL 100 ML ONE (20:02)
[2016-12-20] MEDS: PROPOFOL 100 ML IV SCH (20:21)
[2016-12-20] MEDS: ATORVASTATIN 80 MG TAB PO SCH (21:11)
[2016-12-21] VITALS (33 sets, daily range): BP systolic 125–163; BP diastolic 71–95; PULSE 49–71; RESP 24
[2016-12-21] MEDS: ACCU-CHEK XX SCH ×12 (00:45→21:55)
[2016-12-21] MEDS: LEVALBUTEROL (HFA) 15 GM INHALER INH SCH ×4 (01:24→19:52)
[2016-12-21] MEDS: MIDAZOLAM (DRIP) 50 mg/50 mL 50 ML IV SCH ×5 (01:44→22:37)
[2016-12-21 04:41] LABS: ADD SCAN DIFF NO
[2016-12-21 04:48] LABS: ABNORMAL IP MESSAGE 1; HEMATOCRIT 34.1 % (42.0-52.0); HEMOGLOBIN 10.7 g/dl (14.0-18.0); LYMPHOCYTES # 0.5 10^3/ul (0.8-2.9); LYMPHOCYTES % 6.2 % (15.0-51.0); MEAN CORPUSCULAR HEMOGLOBIN 26.8 pg (29.0-33.0); MEAN CORPUSCULAR HGB CONC 31.4 g/dl (32.0-37.0); MEAN CORPUSCULAR VOLUME 85.5 fl (82.0-101.0); MEAN PLATELET VOLUME 12.3 fl (7.4-10.4); MONOCYTE # 0.4 10^3/ul (0.3-0.9); MONOCYTES % 4.6 % (0.0-11.0); NEUTROPHIL # 7.8 10^3/ul (1.6-7.5); NEUTROPHILS % 88.4 % (39.0-77.0); PLATELET COUNT 255 10^3/UL (140-415); RED BLOOD COUNT 3.99 10^6/ul (4.70-6.10); RED CELL DISTRIBUTION WIDTH 13.5 % (11.5-14.5); WHITE BLOOD COUNT 8.8 10^3/ul (4.8-10.8)
[2016-12-21] MEDS: 1/2 NS + KCL 20 MEQ 1,000 ML IV SCH (04:50)
[2016-12-21] MEDS: FENTAnyl (DRIP) 1000 mcg/100mL 100 ML IV SCH ×3 (04:50→22:56)
[2016-12-21 04:58] LABS: CRYPTOCOCCAL ANTIGEN - SOURCE Serum
[2016-12-21 05:04] LABS: POTASSIUM 3.6 mmol/L (3.5-5.1)
[2016-12-21 05:07] LABS: CALCIUM 7.4 mg/dl (8.4-10.2); CREATININE 2.43 mg/dl (0.61-1.24); PHOSPHORUS 5.1 mg/dl (2.5-4.9)
[2016-12-21 05:08] LABS: MAGNESIUM 2.5 mg/dl (1.7-2.5)
[2016-12-21] MEDS: SEVELAMER CARBONATE 2.4 GM PKT PO SCH ×3 (07:35→18:10)
[2016-12-21] MEDS: PROPOFOL 100 ML IV SCH ×3 (07:47→20:38)
[2016-12-21] MEDS ORDERED: FUROSEMIDE 40 MG INJ IV ONE (08:30)
[2016-12-21] MEDS: ASPIRIN 325 MG TAB PO SCH (09:10)
[2016-12-21] MEDS: CHOLECALCIFEROL 1,000 UNIT TAB PO SCH (09:10)
[2016-12-21] MEDS: AMLODIPINE 5 MG TAB PO SCH (09:10)
[2016-12-21] MEDS: FAMOTIDINE 20 MG TAB PO SCH ×2 (09:11→21:20)
[2016-12-21] MEDS: HEPARIN 5,000 UNIT/0.5 ML VIAL SC SCH ×2 (09:13→21:22)
--- NOTE | 2016-12-21 09:54 | PN ---
DATE: 12/21/2016 SUBJECTIVE: The patient remains critically ill, on full ventilatory support. The patient had porfirio ated diuretics well yesterday. No other events noted. OBJECTIVE: VITAL SIGNS: Blood pressure 141/95, respiration 24, pulse 71, temperature 97.7. I's AND O'S: The patient had 1.8 liters in, 1.6 liters out. HEENT: Head is normocephalic. NECK: Supple. HEART: Regular rate. LUNGS: Show diminished breath sounds at the base. ABDOMEN: Soft, nontender to palpation. No rebound or guarding. EXTREMITIES: Negative for clubbing, cyanosis, positive edema. DERMATOLOGIC: No rashes. MUSCULOSKELETAL: No joint effusions. NEUROLOGIC: No change in exam. MEDICATIONS: The patient's medications have been reviewed. LABORATORY DATA: Shows a sodium 141, potassium 2.6, chloride 109, BUN 66, creatinine 2.43. White c ount 8.8, hemoglobin 10.6, hematocrit 34.1, platelet count is 255. ASSESSMENT AND PLAN: 1. Nonoliguric acute kidney injury with previous baseline creatinine 1.0 mg/dL. Etiology of acute kidney injury is secondary to acute tubular necrosis due to septic acute kidney injury and ischemic hypoperfusion nephrotoxicity. The patient is currently in maintenance phase of acute tubular necros is. Renal function has stabilized and has been improving in the last 24 to 48 hours. At this point , continue current treatment plan, supportive care, renally dose all meds. 2. Volume overload. Etiology secondary to acute kidney injury. Recent IV fluid, sepsis. The silviano ent tolerated diuretic therapy well yesterday. Will give another dose of Lasix 40 mg IV x1. Will a ttempt to discontinue IV fluids once the patient starts tolerating tube feeding. 3. Mineral bone disorder. Continue to monitor calcium and phosphorus levels. 4. Hypokalemia. Replete potassium chloride. 5. Anemia. Continue to monitor hemoglobin and hematocrit levels. 6. Ventilator dependent respiratory failure secondary to pneumonia. Continue the patient's vent se ttings and ABG is reviewed. Continue to monitor. 7. Sepsis, status post shock. The patient is currently on antibiotic therapy. We will continue. 8. Non-ST elevation myocardial infarction type 2. Continue medical management. 9. Diabetes. Continue current insulin regimen. 10. History of polysubstance abuse. 11. Encephalopathy. Please note I spent over 40 minutes of critical care time with this patient. Dictated By: LUIS JOSHI/SUNDEEP Conf#: [id number] DID#: [id number]
[2016-12-21] MEDS: SOD CHLORIDE 0.9% IV SCH ×2 (10:16→21:21)
[2016-12-21] MEDS: METHYLPRED NA SUCC IV SCH ×2 (10:16→21:21)
--- NOTE | 2016-12-21 10:42 | CONS ---
Date/Time of Note Date/Time of Note DATE: 12/21/16 TIME: 10:25 Assessment/Plan Assessment/Plan Additional Assessment/Plan Ventilator settings; AC of 24, tidal volume 500, PEEP of 8, 75% FiO2. Patient currently on fentanyl 100 mics per hour, Versed 10 mg/h, insulin drip 2 U/h, 420 mics per kilogram per minute. Assessment recommendations; 1. Patient admitted for respiratory failure with pneumonia.. 2. 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 3. Atrial fibrillation. 4. History of hypertension or diabetes. 5. Extreme agitation once off sedation. 7. Severe hypoxemia. 8. Improving metabolic acidosis. Continue current treatment. Obtain follow-up chest x-ray. 35 minutes critical care time was spent evaluating the patient. Consultation Date/Type/Reason Admit Date/Time Dec 15, 2016 at 11:20 Type of Consultation: Pulmonary/critical care Referring Provider: LEXII REED 24 HR Interval Summary Free Text/Dictation Patient condition remains critical. Still requiring sedation with combination fentanyl, propofol and Versed drips because of severe agitation. General exam; young male, orally intubated, currently in no distress. Somewhat arousable. Exam/Review of Systems Vital Signs Vitals Vital Signs Date Time Temp Pulse Resp B/P Pulse Ox O2 Delivery O2 Flow Rate FiO2 12/21/16 08:00 54 12/21/16 06:00 141/95 100 Mechanical Ventilator 12/21/16 05:11 24 75 12/21/16 04:00 97.7 12/17/16 08:00 15.0 Intake and Output 12/20/16 12/20/16 12/21/16 15:00 23:00 07:00 Intake Total 564 ml 771.6 ml 515.11 ml Output Total 850 ml 750 ml Balance -286 ml 21.6 ml 515.11 ml Exam HEENT examination; supple neck, JVD difficult to see because of short neck. Patient has good dentition. No neck masses. Pupils are midsize reactive to light bilaterally. Orally intubated. No thyromegaly. No lymphadenopathy. Chest examination; clear to auscultation. S1-S2 audible, no murmurs. Regular rhythm. Abdomen examination; soft, protuberant. No organomegaly. Bowel sounds audible. Extremity examination; no peripheral edema. 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 Results Result Diagram: 12/21/16 0400 12/21/16 0400 Results 24 hrs Laboratory Tests Test 12/20/16 10:33 12/20/16 10:54 12/20/16 12:17 12/20/16 14:06 Bedside Glucose 118 124 105 Blood Gas Specimen Source Blood arterial Arterial Blood Date Drawn 12/20/2016 12:15:57 PM Arterial Blood pH (Temp corrected) 7.390 Arterial Blood pCO2 (Temp correct) 40.2 Arterial Blood pO2 (Temp corrected) 103.4 H Arterial Blood HCO3 23.8 Arterial Blood Base Excess -1.0 Arterial Blood Oxygen Saturation 96.9 Leobardo Test ACCEPTAB Arterial Blood Gas Puncture Site Right Radial Arterial Blood Carboxyhemoglobin 0.2 Arterial Blood Methemoglobin 0.3 Blood Gas A-a O2 Differential 497.1 H Oxyhemoglobin Percent 96.4 Total Hemoglobin 12.1 Blood Gas Temperature 37.0 Blood Gas Respiration Rate 24.0 Blood Gas Actual Respiration Rate 24 Blood Gas Modality VENT - AC FiO2 90.0 Blood Gas Tidal Volume 500.0 Blood Gas Low PEEP Setting 8.0 Blood Gas Notified Whom JLD Blood Gas Notified Time 12/20/2016 12:38:45 PM Test 12/20/16 15:02 12/20/16 15:59 12/20/16 18:02 12/20/16 19:55 Sodium Level 140 Potassium Level 3.7 Chloride Level 107 Carbon Dioxide Level 26 Anion Gap 11 Blood Urea Nitrogen 64 H Creatinine 2.62 H Glucose Level 125 Calcium Level 7.2 L Bedside Glucose 106 113 138 Test 12/20/16 21:47 12/21/16 00:43 12/21/16 02:00 12/21/16 04:00 Bedside Glucose 136 149 137 White Blood Count 8.8 Red Blood Count 3.99 L Hemoglobin 10.7 L Hematocrit 34.1 L Mean Corpuscular Volume 85.5 Mean Corpuscular Hemoglobin 26.8 L Mean Corpuscular Hemoglobin Concent 31.4 L Red Cell Distribution Width 13.5 Platelet Count 255 Mean Platelet Volume 12.3 H Neutrophils % 88.4 H Lymphocytes % 6.2 L Monocytes % 4.6 Eosinophils % 0.0 Basophils % 0.0 Nucleated Red Blood Cells % 0.0 Neutrophils # 7.8 H Lymphocytes # 0.5 L Monocytes # 0.4 Eosinophils # 0.0 Basophils # 0.0 Nucleated Red Blood Cells # 0.0 Sodium Level 141 Potassium Level 3.6 Chloride Level 109 Carbon Dioxide Level 24 Anion Gap 12 Blood Urea Nitrogen 66 H Creatinine 2.43 H Glucose Level 152 Calcium Level 7.4 L Phosphorus Level 5.1 H Magnesium Level 2.5 Test 12/21/16 04:05 12/21/16 05:48 12/21/16 07:57 12/21/16 08:59 Bedside Glucose 150 161 166 Lab Scanned Report REFERENCE LAB Medications Medications Current Medications Insulin Glargine (Lantus) 33 unit DAILY@20 SC Last administered on 12/17/16 20 :51; Admin Dose 33 UNIT; Start 12/15/16 at 20:00 Ondansetron HCl (Zofran Inj) 4 mg Q6H PRN IV NAUSEA AND/OR VOMITING; Start at 13:00 Acetaminophen (Tylenol Tab) 650 mg Q6H PRN PO PAIN LEVEL 1-3 OR FEVER Last administered on 12/17/16 18:16; Admin Dose 650 MG; Start 12/15/16 at 13:00 Acetaminophen/ Hydrocodone Bitart (Beatrice (5/325)) 1 tab Q6H PRN PO PAIN LEVEL 4 -6 Last administered on 12/15/16 22:08; Admin Dose 1 TAB; Start 12/15/16 at 13: 00 Morphine Sulfate (morphine) 2 mg Q4H PRN IV PAIN LEVEL 7-10 Last administered on 12/20/16 19:57; Admin Dose 2 MG; Start 12/15/16 at 13:00 Magnesium Hydroxide (Milk Of Mag) 30 ml DAILY PRN PO CONSTIPATION; Start at 13:00 Bisacodyl (Dulcolax) 5 mg DAILY PRN PO CONSTIPATION; Start 12/15/16 at 13:00 Famotidine (Pepcid) 20 mg Q12 PO Last administered on 12/21/16 09:11; Admin Dose 20 MG; Start 12/15/16 at 21:00 Hydralazine HCl (Apresoline) 10 mg Q6H PRN IV SBP>160; Start 12/15/16 at 13:00 Aspirin (Aspirin) 325 mg DAILY PO Last administered on 12/21/16 09:10; Admin Dose 325 MG; Start 12/16/16 at 09:00 Atorvastatin Calcium 80 mg 80 mg QHS PO Last administered on 12/20/16 21:11; Admin Dose 80 MG; Start 12/15/16 at 21:00 Ceftriaxone Sodium (Rocephin) 50 ml @ 100 mls/hr Q24H IVPB Last administered on 12/20/16 15:02; Admin Dose 100 MLS/HR; Start 12/15/16 at 15:00 Heparin Sodium (Porcine) (Heparin (5000 Units/0.5 ml)) 5,000 unit BID SC Last administered on 12/21/16 09:13; Admin Dose 5,000 UNIT; Start 12/15/16 at 21:00 Miscellaneous Information 1 ea NOTE XX ; Start 12/15/16 at 14:00 Glucose (Glutose) 15 gm Q15M PRN PO DECREASED GLUCOSE; Start 12/15/16 at 14:00 Glucose (Glutose) 22.5 gm Q15M PRN PO DECREASED GLUCOSE; Start 12/15/16 at 14: 00 Dextrose (D50w Syringe) 25 ml Q15M PRN IV DECREASED GLUCOSE; Start 12/15/16 at 14:00 Dextrose (D50w Syringe) 50 ml Q15M PRN IV DECREASED GLUCOSE; Start 12/15/16 at 14:00 Glucagon (Glucagen) 1 mg Q15M PRN IM DECREASED GLUCOSE; Start 12/15/16 at 14:00 Glucose (Glutose) 15 gm Q15M PRN BUCCAL DECREASED GLUCOSE; Start 12/15/16 at 14 :00 Hydralazine HCl (Apresoline) 25 mg Q8 PO Last administered on 12/21/16 05:44; Admin Dose 25 MG; Start 12/15/16 at 22:00 Cholecalciferol 1000 unit 1,000 unit DAILY PO Last administered on 12/21/16 09 :10; Admin Dose 1,000 UNIT; Start 12/16/16 at 09:00 Fentanyl 100 ml @ 2.5 mls/hr TITRATE IV Last administered on 12/21/16 04:50; Admin Dose 10 MLS/HR; Start 12/18/16 at 03:30 Levofloxacin/ Dextrose (Levaquin 250 Mg/ D5W 50 ml (Pmx)) 50 ml @ 50 mls/hr Q24H IVPB Last administered on 12/20/16 14:07; Admin Dose 50 MLS/HR; Start at 14:00 Dextrose (D50w Syringe) 25 ml Q15M PRN IV Till BS 80 mg/dL or above x2; Start 12/18/16 at 14:00 Dextrose (D50w Syringe) 50 ml Q15M PRN IV Till BS 80 mg/dL or above x2; Start 12/18/16 at 14:00 IV Flush (NS 10 ml) 10 ml PRN PRN IV IV PROTOCOL; Start 12/18/16 at 17:00 Diagnostic Test (Pha) 1 ea 1 ea Q2H XX Last administered on 12/21/16 10:16; Admin Dose 1 EA; Start 12/19/16 at 10:00 Norepinephrine 32 mg/Dextrose 250 ml @ 0.46 mls/hr TITRATE IV ; Start 12/19/16 at 09:30 Methylprednisolone Sodium Succinate 250 mg/Sodium Chloride 50 ml @ 100 mls/hr BID IV Last administered on 12/21/16 10:16; Admin Dose 100 MLS/HR; Start 12/19 at 21:00 Potassium Chloride/Sodium Chloride (1/2 NS + KCl 20 Meq) 1,000 ml @ 50 mls/hr Q20H IV Last administered on 12/21/16 04:50; Admin Dose 50 MLS/HR; Start 12/20 at 08:30 Amlodipine Besylate 5 mg 5 mg DAILY PO Last administered on 12/21/16 09:10; Admin Dose 5 MG; Start 12/21/16 at 09:00 Midazolam HCl 50 ml @ 1 mls/hr TITRATE IV Last administered on 12/21/16 06:53 ; Admin Dose 10 MLS/HR; Start 12/20/16 at 14:00 Propofol (Diprivan) 100 ml @ 3.255 mls/ hr Q12H IV Last administered on 07:47; Admin Dose 13.02 MLS/HR; Start 12/20/16 at 20:30 JESS STALLINGS Dec 21, 2016 10:42
--- NOTE | 2016-12-21 12:39 | CONS ---
Date/Time of Note Date/Time of Note DATE: 12/21/16 TIME: 12:33 Assessment/Plan Assessment/Plan Chief Complaint/Hosp Course IMPRESSION: 1. Positive troponin, assess significance.-no sig uptrend 2. Abnormal electrocardiogram with ST depressions with tachycardia and positive troponin, likely indicative of coronary artery disease.-improved ecg findings with improved HR 3. Hypertension, uncontrolled. 4. Dyslipidemia. 5. Diabetes mellitus. 6. Fevers to 104 documented here in the hospital.-still having low grade 7. Renal failure.-acute on chronic 8. Lower extremity edema, assess for congestive heart failure. 9. Hypokalemia. 10. Nausea and vomiting. 11. Chest pain with cough. 12.Resp failure s/p intubation 14. Bradycardia-to 40's.MOst recently in 50's Recc: -Tele -serial ecg's -Continue asa/statin -Continue abx's and f/u cx data -Continue bronchodilators and steroids. -Follow volume status closely -Hold coreg -Continue hydralazine/norvasc as tolerated with probable need to decrease dose Problems: Consultation Date/Type/Reason Admit Date/Time Dec 15, 2016 at 11:20 Initial Consult Date 12/15/2016 Type of Consultation: Cardiology Reason for Consultation positive troponin Referring Provider: LEXII REED Exam/Review of Systems Vital Signs Vitals Vital Signs Date Time Temp Pulse Resp B/P Pulse Ox O2 Delivery O2 Flow Rate FiO2 12/21/16 10:00 53 136/78 98 Mechanical Ventilator 12/21/16 08:00 97.9 12/21/16 08:00 75 12/21/16 05:11 24 12/17/16 08:00 15.0 Intake and Output 12/20/16 12/20/16 12/21/16 15:00 23:00 07:00 Intake Total 564 ml 771.6 ml 515.11 ml Output Total 850 ml 750 ml Balance -286 ml 21.6 ml 515.11 ml Exam Review of Systems: CONSTITUTIONAL: No fevers, chills. PULMONARY: No sob CARDIOVASCULAR: No chest pain/palpitations GASTROINTESTINAL: No nausea/vomiting. GENITOURINARY: No hematuria/dysuria. MUSCULOSKELETAL: No myagias/arthalgias. PSYCHIATRIC: The patient denies depression. NEUROLOGIC: No weakness Constitutional: alert Psych: no complaints Head: normocephalic ENMT: mucosa pink and moist Neck: jvd, supple Respiratory: diminished breath sounds Cardiovascular: regular rate and rhythm Gastrointestinal: non-tender, soft Musculoskeletal: muscle tone Extremities: normal pulses Neurological: other (No focal deficits) Results Result Diagram: 12/21/16 0400 12/21/16 0400 Results 24 hrs Laboratory Tests Test 12/20/16 14:06 12/20/16 15:02 12/20/16 15:59 12/20/16 18:02 Bedside Glucose 105 106 113 Sodium Level 140 Potassium Level 3.7 Chloride Level 107 Carbon Dioxide Level 26 Anion Gap 11 Blood Urea Nitrogen 64 H Creatinine 2.62 H Glucose Level 125 Calcium Level 7.2 L Test 12/20/16 19:55 12/20/16 21:47 12/21/16 00:43 12/21/16 02:00 Bedside Glucose 138 136 149 137 Test 12/21/16 04:00 12/21/16 04:05 12/21/16 05:48 12/21/16 07:57 White Blood Count 8.8 Red Blood Count 3.99 L Hemoglobin 10.7 L Hematocrit 34.1 L Mean Corpuscular Volume 85.5 Mean Corpuscular Hemoglobin 26.8 L Mean Corpuscular Hemoglobin Concent 31.4 L Red Cell Distribution Width 13.5 Platelet Count 255 Mean Platelet Volume 12.3 H Neutrophils % 88.4 H Lymphocytes % 6.2 L Monocytes % 4.6 Eosinophils % 0.0 Basophils % 0.0 Nucleated Red Blood Cells % 0.0 Neutrophils # 7.8 H Lymphocytes # 0.5 L Monocytes # 0.4 Eosinophils # 0.0 Basophils # 0.0 Nucleated Red Blood Cells # 0.0 Sodium Level 141 Potassium Level 3.6 Chloride Level 109 Carbon Dioxide Level 24 Anion Gap 12 Blood Urea Nitrogen 66 H Creatinine 2.43 H Glucose Level 152 Calcium Level 7.4 L Phosphorus Level 5.1 H Magnesium Level 2.5 Bedside Glucose 150 161 166 Test 12/21/16 08:59 12/21/16 10:07 12/21/16 12:07 Lab Scanned Report REFERENCE LAB Bedside Glucose 141 149 Medications Medications Current Medications Insulin Glargine (Lantus) 33 unit DAILY@20 SC Last administered on 12/17/16t 20 :51; Admin Dose 33 UNIT; Start 12/15/16 at 20:00 Ondansetron HCl (Zofran Inj) 4 mg Q6H PRN IV NAUSEA AND/OR VOMITING; Start at 13:00 Acetaminophen (Tylenol Tab) 650 mg Q6H PRN PO PAIN LEVEL 1-3 OR FEVER Last administered on 12/17/16 18:16; Admin Dose 650 MG; Start 12/15/16 at 13:00 Acetaminophen/ Hydrocodone Bitart ([place] (5/325)) 1 tab Q6H PRN PO PAIN LEVEL 4 -6 Last administered on 12/15/16 22:08; Admin Dose 1 TAB; Start 12/15/16 at 13: 00 Morphine Sulfate (morphine) 2 mg Q4H PRN IV PAIN LEVEL 7-10 Last administered on 12/20/16 19:57; Admin Dose 2 MG; Start 12/15/16 at 13:00 Magnesium Hydroxide (Milk Of Mag) 30 ml DAILY PRN PO CONSTIPATION; Start at 13:00 Bisacodyl (Dulcolax) 5 mg DAILY PRN PO CONSTIPATION; Start 12/15/16 at 13:00 Famotidine (Pepcid) 20 mg Q12 PO Last administered on 12/21/16 09:11; Admin Dose 20 MG; Start 12/15/16 at 21:00 Hydralazine HCl (Apresoline) 10 mg Q6H PRN IV SBP>160; Start 12/15/16 at 13:00 Aspirin (Aspirin) 325 mg DAILY PO Last administered on 12/21/16 09:10; Admin Dose 325 MG; Start 12/16/16 at 09:00 Atorvastatin Calcium 80 mg 80 mg QHS PO Last administered on 12/20/16 21:11; Admin Dose 80 MG; Start 12/15/16 at 21:00 Ceftriaxone Sodium (Rocephin) 50 ml @ 100 mls/hr Q24H IVPB Last administered on 12/20/16 15:02; Admin Dose 100 MLS/HR; Start 12/15/16 at 15:00 Heparin Sodium (Porcine) (Heparin (5000 Units/0.5 ml)) 5,000 unit BID SC Last administered on 12/21/16 09:13; Admin Dose 5,000 UNIT; Start 12/15/16 at 21:00 Miscellaneous Information 1 ea NOTE XX ; Start 12/15/16 at 14:00 Glucose (Glutose) 15 gm Q15M PRN PO DECREASED GLUCOSE; Start 12/15/16 at 14:00 Glucose (Glutose) 22.5 gm Q15M PRN PO DECREASED GLUCOSE; Start 12/15/16 at 14: 00 Dextrose (D50w Syringe) 25 ml Q15M PRN IV DECREASED GLUCOSE; Start 12/15/16 at 14:00 Dextrose (D50w Syringe) 50 ml Q15M PRN IV DECREASED GLUCOSE; Start 12/15/16 at 14:00 Glucagon (Glucagen) 1 mg Q15M PRN IM DECREASED GLUCOSE; Start 12/15/16 at 14:00 Glucose (Glutose) 15 gm Q15M PRN BUCCAL DECREASED GLUCOSE; Start 12/15/16 at 14 :00 Hydralazine HCl (Apresoline) 25 mg Q8 PO Last administered on 12/21/16 05:44; Admin Dose 25 MG; Start 12/15/16 at 22:00 Cholecalciferol 1000 unit 1,000 unit DAILY PO Last administered on 12/21/16 09 :10; Admin Dose 1,000 UNIT; Start 12/16/16 at 09:00 Fentanyl 100 ml @ 2.5 mls/hr TITRATE IV Last administered on 12/21/16 04:50; Admin Dose 10 MLS/HR; Start 12/18/16 at 03:30 Levofloxacin/ Dextrose (Levaquin 250 Mg/ D5W 50 ml (Pmx)) 50 ml @ 50 mls/hr Q24H IVPB Last administered on 12/20/16 14:07; Admin Dose 50 MLS/HR; Start at 14:00 Dextrose (D50w Syringe) 25 ml Q15M PRN IV Till BS 80 mg/dL or above x2; Start 12/18/16 at 14:00 Dextrose (D50w Syringe) 50 ml Q15M PRN IV Till BS 80 mg/dL or above x2; Start 12/18/16 at 14:00 IV Flush (NS 10 ml) 10 ml PRN PRN IV IV PROTOCOL; Start 12/18/16 at 17:00 Diagnostic Test (Pha) 1 ea 1 ea Q2H XX Last administered on 12/21/16 12:08; Admin Dose 1 EA; Start 12/19/16 at 10:00 Norepinephrine 32 mg/Dextrose 250 ml @ 0.46 mls/hr TITRATE IV ; Start 12/19/16 at 09:30 Methylprednisolone Sodium Succinate 250 mg/Sodium Chloride 50 ml @ 100 mls/hr BID IV Last administered on 12/21/16 10:16; Admin Dose 100 MLS/HR; Start 12/19 at 21:00 Potassium Chloride/Sodium Chloride (1/2 NS + KCl 20 Meq) 1,000 ml @ 50 mls/hr Q20H IV Last administered on 12/21/16 04:50; Admin Dose 50 MLS/HR; Start 12/20 at 08:30 Amlodipine Besylate 5 mg 5 mg DAILY PO Last administered on 12/21/16 09:10; Admin Dose 5 MG; Start 12/21/16 at 09:00 Midazolam HCl 50 ml @ 1 mls/hr TITRATE IV Last administered on 12/21/16 12:16 ; Admin Dose 10 MLS/HR; Start 12/20/16 at 14:00 Propofol (Diprivan) 100 ml @ 3.255 mls/ hr Q12H IV Last administered on 07:47; Admin Dose 13.02 MLS/HR; Start 12/20/16 at 20:30 VI ADAMES Dec 21, 2016 12:39
[2016-12-21] MEDS: CEFTRIAXONE 1 GM/50 ML (PMX) 50 ML IVPB SCH (14:34)
[2016-12-21] MEDS: LEVOFLOXACIN 250MG/D5W (PMX) 50 ML IVPB SCH (14:34)
--- NOTE | 2016-12-21 14:53 | CONS ---
Date/Time of Note Date/Time of Note DATE: 12/21/16 TIME: 14:42 Assessment/Plan Assessment/Plan Chief Complaint/Hosp Course ID PROGRESS NOTE TOTAL ABX DAY # 6 => Ceftriaxone #6 + Levaquin #4 + Azith #3 s/p Intubated early am 12/18/16 NEW LAB RESULTS: (+)Cocaine, (+)Mycoplasma PNA IgG, A1c 14.6 24H INTERVAL SUMMARY * Orally intubated -- sedated on the Vent in ICU Stable, no fevers, WBC normalized, * SEROLOGY: (-)Cryptococcus, (+)Mycoplasma PNA 2.47 IgG (prior exposure vs current), Cocci pending * CXR 12/20: .IMPRESSION: Cardiomegaly .Central pulmonary vascular congestion and interstitial prominence in both lungs. Minimal interval decrease in patchy infiltrates throughout both lungs. Significant residual remains. * 12/21/16 0400 12/21/16 0400 PHYSICAL EXAMINATION: GENERAL: -> Morbid obese M, noncommunicative, orally intubated on the Vent, no fevers HEENT: ETT/OGT secure NECK: Supple, trach-> midline CHEST: Equal chest rise bilaterally, without dyspnea on observation / Vented HEART: Pulse RRR - NSR on tele ABDOMEN: Soft, obese EXTREMITIES: Warm w/generalized dependent edema SKIN: Warm, dry ID ASSESSMENT: 41 yo Morbid Obese M (+)Cocaine screen on admission seen in ICU today with : 1. Sepsis secondary to underlying community-acquired pneumonia, hypotension, acute encephalopathy, DKA * DDx Opportunistic vs cryptogenic organizing pneumonia * SEROLOGIES: (-)Cryptococcus, (+)Mycoplasma PNA 2.47 IgG (prior exposure vs current), Cocci pending * DDx ?Silent Aspiration PNA - risk factors obesity ?CHRISTINE ? GERD 2. Acute hypoxic respiratory failure=>Intubated early am 12/18 * PNA (+) * Pulmonary HTN per CT ?COPD * ?Obesity hypoventilation syndrome 3. Elevated troponins. Most probably a type 2 event from underlying sepsis and underlying acute kidney injury. 4. Acute kidney injury. 5. DKA - Type 2 diabetes mellitus.->A1c @ 14.6 6. Dyslipidemia. Continue statins. 7. Essential hypertension. . 8. Microcytic, hypochromic anemia (-) MRSA Nares (-)HIV Screen INVASIVES: * PIV ABX ALLERGIES: Vanco IV CURRENT ABX: TOTAL ABX DAY # 6 => Ceftriaxone #6 + Levaquin #4 DC Azith 12/18 ID RECOMMENDATIONS: 1.Continue ABX - Patient on adequate coverage for Atypical PNA, received Azith x 3 days-> to complete 14 day ABX course with Levaquin * , (+)Mycoplasma PNA 2.47 IgG (prior exposure vs current) 2.. f/u on COCCI serology pending . Problems: Consultation Date/Type/Reason Admit Date/Time Dec 15, 2016 at 11:20 Type of Consultation: ID Referring Provider: LEXII REED Exam/Review of Systems Vital Signs Vitals Vital Signs Date Time Temp Pulse Resp B/P Pulse Ox O2 Delivery O2 Flow Rate FiO2 12/21/16 12:00 53 12/21/16 10:00 136/78 98 Mechanical Ventilator 12/21/16 08:00 97.9 12/21/16 08:00 75 12/21/16 05:11 24 12/17/16 08:00 15.0 Intake and Output 12/20/16 12/20/16 12/21/16 15:00 23:00 07:00 Intake Total 564 ml 771.6 ml 515.11 ml Output Total 850 ml 750 ml Balance -286 ml 21.6 ml 515.11 ml Results Result Diagram: 12/21/16 0400 12/21/16 0400 Results 24 hrs Laboratory Tests Test 12/20/16 15:02 12/20/16 15:59 12/20/16 18:02 12/20/16 19:55 Sodium Level 140 Potassium Level 3.7 Chloride Level 107 Carbon Dioxide Level 26 Anion Gap 11 Blood Urea Nitrogen 64 H Creatinine 2.62 H Glucose Level 125 Calcium Level 7.2 L Bedside Glucose 106 113 138 Test 12/20/16 21:47 12/21/16 00:43 12/21/16 02:00 12/21/16 04:00 Bedside Glucose 136 149 137 White Blood Count 8.8 Red Blood Count 3.99 L Hemoglobin 10.7 L Hematocrit 34.1 L Mean Corpuscular Volume 85.5 Mean Corpuscular Hemoglobin 26.8 L Mean Corpuscular Hemoglobin Concent 31.4 L Red Cell Distribution Width 13.5 Platelet Count 255 Mean Platelet Volume 12.3 H Neutrophils % 88.4 H Lymphocytes % 6.2 L Monocytes % 4.6 Eosinophils % 0.0 Basophils % 0.0 Nucleated Red Blood Cells % 0.0 Neutrophils # 7.8 H Lymphocytes # 0.5 L Monocytes # 0.4 Eosinophils # 0.0 Basophils # 0.0 Nucleated Red Blood Cells # 0.0 Sodium Level 141 Potassium Level 3.6 Chloride Level 109 Carbon Dioxide Level 24 Anion Gap 12 Blood Urea Nitrogen 66 H Creatinine 2.43 H Glucose Level 152 Calcium Level 7.4 L Phosphorus Level 5.1 H Magnesium Level 2.5 Test 12/21/16 04:05 12/21/16 05:48 12/21/16 07:57 12/21/16 08:59 Bedside Glucose 150 161 166 Lab Scanned Report REFERENCE LAB Test 12/21/16 10:07 12/21/16 12:07 Bedside Glucose 141 149 Medications Medications Current Medications Insulin Glargine (Lantus) 33 unit DAILY@20 SC Last administered on 12/17/16 20 :51; Admin Dose 33 UNIT; Start 12/15/16 at 20:00 Ondansetron HCl (Zofran Inj) 4 mg Q6H PRN IV NAUSEA AND/OR VOMITING; Start at 13:00 Acetaminophen (Tylenol Tab) 650 mg Q6H PRN PO PAIN LEVEL 1-3 OR FEVER Last administered on 12/17/16 18:16; Admin Dose 650 MG; Start 12/15/16 at 13:00 Acetaminophen/ Hydrocodone Bitart ([place] (5/325)) 1 tab Q6H PRN PO PAIN LEVEL 4 -6 Last administered on 12/15/16 22:08; Admin Dose 1 TAB; Start 12/15/16 at 13: 00 Morphine Sulfate (morphine) 2 mg Q4H PRN IV PAIN LEVEL 7-10 Last administered on 12/20/16 19:57; Admin Dose 2 MG; Start 12/15/16 at 13:00 Magnesium Hydroxide (Milk Of Mag) 30 ml DAILY PRN PO CONSTIPATION; Start at 13:00 Bisacodyl (Dulcolax) 5 mg DAILY PRN PO CONSTIPATION; Start 12/15/16 at 13:00 Famotidine (Pepcid) 20 mg Q12 PO Last administered on 12/21/16 09:11; Admin Dose 20 MG; Start 12/15/16 at 21:00 Hydralazine HCl (Apresoline) 10 mg Q6H PRN IV SBP>160; Start 12/15/16 at 13:00 Aspirin (Aspirin) 325 mg DAILY PO Last administered on 12/21/16 09:10; Admin Dose 325 MG; Start 12/16/16 at 09:00 Atorvastatin Calcium 80 mg 80 mg QHS PO Last administered on 12/20/16 21:11; Admin Dose 80 MG; Start 12/15/16 at 21:00 Ceftriaxone Sodium (Rocephin) 50 ml @ 100 mls/hr Q24H IVPB Last administered on 12/21/16 14:34; Admin Dose 100 MLS/HR; Start 12/15/16 at 15:00 Heparin Sodium (Porcine) (Heparin (5000 Units/0.5 ml)) 5,000 unit BID SC Last administered on 12/21/16 09:13; Admin Dose 5,000 UNIT; Start 12/15/16 at 21:00 Miscellaneous Information 1 ea NOTE XX ; Start 12/15/16 at 14:00 Glucose (Glutose) 15 gm Q15M PRN PO DECREASED GLUCOSE; Start 12/15/16 at 14:00 Glucose (Glutose) 22.5 gm Q15M PRN PO DECREASED GLUCOSE; Start 12/15/16 at 14: 00 Dextrose (D50w Syringe) 25 ml Q15M PRN IV DECREASED GLUCOSE; Start 12/15/16 at 14:00 Dextrose (D50w Syringe) 50 ml Q15M PRN IV DECREASED GLUCOSE; Start 12/15/16 at 14:00 Glucagon (Glucagen) 1 mg Q15M PRN IM DECREASED GLUCOSE; Start 12/15/16 at 14:00 Glucose (Glutose) 15 gm Q15M PRN BUCCAL DECREASED GLUCOSE; Start 12/15/16 at 14 :00 Hydralazine HCl (Apresoline) 25 mg Q8 PO Last administered on 12/21/16 14:33; Admin Dose 25 MG; Start 12/15/16 at 22:00 Cholecalciferol 1000 unit 1,000 unit DAILY PO Last administered on 12/21/16 09 :10; Admin Dose 1,000 UNIT; Start 12/16/16 at 09:00 Fentanyl 100 ml @ 2.5 mls/hr TITRATE IV Last administered on 12/21/16 04:50; Admin Dose 10 MLS/HR; Start 12/18/16 at 03:30 Levofloxacin/ Dextrose (Levaquin 250 Mg/ D5W 50 ml (Pmx)) 50 ml @ 50 mls/hr Q24H IVPB Last administered on 12/21/16 14:34; Admin Dose 50 MLS/HR; Start at 14:00 Dextrose (D50w Syringe) 25 ml Q15M PRN IV Till BS 80 mg/dL or above x2; Start 12/18/16 at 14:00 Dextrose (D50w Syringe) 50 ml Q15M PRN IV Till BS 80 mg/dL or above x2; Start 12/18/16 at 14:00 IV Flush (NS 10 ml) 10 ml PRN PRN IV IV PROTOCOL; Start 12/18/16 at 17:00 Diagnostic Test (Pha) 1 ea 1 ea Q2H XX Last administered on 12/21/16 12:08; Admin Dose 1 EA; Start 12/19/16 at 10:00 Norepinephrine 32 mg/Dextrose 250 ml @ 0.46 mls/hr TITRATE IV ; Start 12/19/16 at 09:30 Methylprednisolone Sodium Succinate 250 mg/Sodium Chloride 50 ml @ 100 mls/hr BID IV Last administered on 12/21/16 10:16; Admin Dose 100 MLS/HR; Start 12/19 at 21:00 Potassium Chloride/Sodium Chloride (1/2 NS + KCl 20 Meq) 1,000 ml @ 50 mls/hr Q20H IV Last administered on 12/21/16 04:50; Admin Dose 50 MLS/HR; Start 12/20 at 08:30 Amlodipine Besylate 5 mg 5 mg DAILY PO Last administered on 12/21/16 09:10; Admin Dose 5 MG; Start 12/21/16 at 09:00 Midazolam HCl 50 ml @ 1 mls/hr TITRATE IV Last administered on 12/21/16 12:16 ; Admin Dose 10 MLS/HR; Start 12/20/16 at 14:00 Propofol (Diprivan) 100 ml @ 3.255 mls/ hr Q12H IV Last administered on 07:47; Admin Dose 13.02 MLS/HR; Start 12/20/16 at 20:30 MAGDALENO SIMMONS NP Dec 21, 2016 14:52
--- NOTE | 2016-12-21 14:54 | RADRPT ---
PROCEDURE: XR Chest. CLINICAL INDICATION: CHF and endotracheal tube placement TECHNIQUE: Single AP view of the chest were obtained COMPARISON: 06/02/2016 FINDINGS: The heart is mildly enlarged. The pulmonary vasculature are mildly prominent. The aorta demonstrate s atherosclerotic calcifications. There is a mild left basilar opacity with a small left effusion. The right lung is clear. Degenerative changes are seen within the thoracic spine. There is no acu te osseous abnormality. Endotracheal tube tip terminates in the trachea above the manolo. There is a gastric catheter which extends to below the GE junction. A left-sided central line catheter is seen with terminates at the SVC. IMPRESSION: Cardiomegaly is seen with vascular congestion and a small left effusion. Endotracheal tube, gastric catheter, and central line catheter have been placed and appear appropria tely positioned. RPTAT: AA .Ashish Larose MD, MD Date Time Electronically viewed and signed by .Ashish Larose MD, MD on 12/21/2016 14:54 .Yolanda/
--- NOTE | 2016-12-21 15:42 | PN ---
Date/Time of Note Date/Time of Note DATE: 12/21/16 TIME: 15:39 Assessment/Plan VTE Prophylaxis VTE Prophylaxis Intervention: heparin Lines/Catheters IV Catheter Type (from Nrs): PICC Line Central line still needed: Yes Urinary Cath still in place: Yes Reason Cath still needed: other (indicate) (monitor I&O) Assessment/Plan Chief Complaint/Hosp Course Assessment and plan 1. Sepsis secondary to underlying committee acquired pneumonia. Noted with underlying septic shock. Continue on antibiotics. Continue with ID recommendations. await for clinical improvement. off vasopressors at this time . cont vent liberation 2. Acute hypoxic respiratory failure. Likely secondary to underlying pneumonia. Of note patient was intubated on 12/18/2016. Continue with breathing treatments. Continue with biogeographer recommendations. Patient also with suspect granulomatosis with polyangiitis versus microscopic polyangiitis. Coal Dumping Equipment Operator consultation is pending still 3. Elevated troponins. Likely type II. Is in the setting of sepsis as well as acute renal insufficiency. Continue with cardiology recommendations. Continue telemetry monitoring. stable at present. monitor 4. Acute kidney injury. Medications to renally dose. Likely from ATN. Follow-up with nephrology recommendations. Monitor renal panel 5. Type 2 diabetes. Continue insulin regimen. Will adjust as needed. stable at present 6. Dyslipidemia. continue on statin 7. Essential hypertension. on antihypertensives and adjust as needed 8. Morbid obesity. Weight reduction to be advised once patient more alert and oriented DVT prophylaxis: Heparin GERD prophylaxis: H2 lo Disposition and plan: cont vent liberation trials. continue abx. Await for improvement. Discussed plan of care with Dr. Payan Critical Care time : 30 minutes Problems: Subjective 24 Hr Interval Summary Free Text/Dictation remains intubated. no distress. family at bedside Exam/Review of Systems Vital Signs Vitals Vital Signs Date Time Temp Pulse Resp B/P Pulse Ox O2 Delivery O2 Flow Rate FiO2 12/21/16 14:00 55 137/74 97 Mechanical Ventilator 12/21/16 12:00 97.6 12/21/16 08:00 75 12/21/16 05:11 24 12/17/16 08:00 15.0 Intake and Output 12/20/16 12/20/16 12/21/16 14:59 22:59 06:59 Intake Total 513 ml 767.8 ml 561.4 ml Output Total 750 ml 750 ml 100 ml Balance -237 ml 17.8 ml 461.4 ml Exam General: morbidly obese, no agitation seen. sedated Eyes: pupils equal round Neck: No JVD seen still Cardiac: remains regular rate Pulmonary: minimally coarse bilaterally. dim at bases still unchanged GI: Soft nontender Extremities: Minimal edema bilateral lower extremity still Skin: Noted with left great toe amputation. Minimal bilateral lower extremity edema unchanged Neurologic: intubated And sedated Results Result Diagram: 12/21/16 0400 12/21/16 0400 Results 24 hrs Laboratory Tests Test 12/20/16 15:59 12/20/16 18:02 12/20/16 19:55 12/20/16 21:47 Bedside Glucose 106 113 138 136 Test 12/21/16 00:43 12/21/16 02:00 12/21/16 04:00 12/21/16 04:05 Bedside Glucose 149 137 150 White Blood Count 8.8 Red Blood Count 3.99 L Hemoglobin 10.7 L Hematocrit 34.1 L Mean Corpuscular Volume 85.5 Mean Corpuscular Hemoglobin 26.8 L Mean Corpuscular Hemoglobin Concent 31.4 L Red Cell Distribution Width 13.5 Platelet Count 255 Mean Platelet Volume 12.3 H Neutrophils % 88.4 H Lymphocytes % 6.2 L Monocytes % 4.6 Eosinophils % 0.0 Basophils % 0.0 Nucleated Red Blood Cells % 0.0 Neutrophils # 7.8 H Lymphocytes # 0.5 L Monocytes # 0.4 Eosinophils # 0.0 Basophils # 0.0 Nucleated Red Blood Cells # 0.0 Sodium Level 141 Potassium Level 3.6 Chloride Level 109 Carbon Dioxide Level 24 Anion Gap 12 Blood Urea Nitrogen 66 H Creatinine 2.43 H Glucose Level 152 Calcium Level 7.4 L Phosphorus Level 5.1 H Magnesium Level 2.5 Test 12/21/16 05:48 12/21/16 07:57 12/21/16 08:59 12/21/16 10:07 Bedside Glucose 161 166 141 Lab Scanned Report REFERENCE LAB Test 12/21/16 12:07 12/21/16 14:41 Bedside Glucose 149 179 Medications Medications Current Medications Insulin Glargine (Lantus) 33 unit DAILY@20 SC Last administered on 12/17/16t 20 :51; Admin Dose 33 UNIT; Start 12/15/16 at 20:00 Ondansetron HCl (Zofran Inj) 4 mg Q6H PRN IV NAUSEA AND/OR VOMITING; Start at 13:00 Acetaminophen (Tylenol Tab) 650 mg Q6H PRN PO PAIN LEVEL 1-3 OR FEVER Last administered on 12/17/16 18:16; Admin Dose 650 MG; Start 12/15/16 at 13:00 Acetaminophen/ Hydrocodone Bitart ([place] (5/325)) 1 tab Q6H PRN PO PAIN LEVEL 4 -6 Last administered on 12/15/16 22:08; Admin Dose 1 TAB; Start 12/15/16 at 13: 00 Morphine Sulfate (morphine) 2 mg Q4H PRN IV PAIN LEVEL 7-10 Last administered on 12/20/16 19:57; Admin Dose 2 MG; Start 12/15/16 at 13:00 Magnesium Hydroxide (Milk Of Mag) 30 ml DAILY PRN PO CONSTIPATION; Start at 13:00 Bisacodyl (Dulcolax) 5 mg DAILY PRN PO CONSTIPATION; Start 12/15/16 at 13:00 Famotidine (Pepcid) 20 mg Q12 PO Last administered on 12/21/16 09:11; Admin Dose 20 MG; Start 12/15/16 at 21:00 Hydralazine HCl (Apresoline) 10 mg Q6H PRN IV SBP>160; Start 12/15/16 at 13:00 Aspirin (Aspirin) 325 mg DAILY PO Last administered on 12/21/16 09:10; Admin Dose 325 MG; Start 12/16/16 at 09:00 Atorvastatin Calcium 80 mg 80 mg QHS PO Last administered on 12/20/16 21:11; Admin Dose 80 MG; Start 12/15/16 at 21:00 Ceftriaxone Sodium (Rocephin) 50 ml @ 100 mls/hr Q24H IVPB Last administered on 12/21/16 14:34; Admin Dose 100 MLS/HR; Start 12/15/16 at 15:00 Heparin Sodium (Porcine) (Heparin (5000 Units/0.5 ml)) 5,000 unit BID SC Last administered on 12/21/16 09:13; Admin Dose 5,000 UNIT; Start 12/15/16 at 21:00 Miscellaneous Information 1 ea NOTE XX ; Start 12/15/16 at 14:00 Glucose (Glutose) 15 gm Q15M PRN PO DECREASED GLUCOSE; Start 12/15/16 at 14:00 Glucose (Glutose) 22.5 gm Q15M PRN PO DECREASED GLUCOSE; Start 12/15/16 at 14: 00 Dextrose (D50w Syringe) 25 ml Q15M PRN IV DECREASED GLUCOSE; Start 12/15/16 at 14:00 Dextrose (D50w Syringe) 50 ml Q15M PRN IV DECREASED GLUCOSE; Start 12/15/16 at 14:00 Glucagon (Glucagen) 1 mg Q15M PRN IM DECREASED GLUCOSE; Start 12/15/16 at 14:00 Glucose (Glutose) 15 gm Q15M PRN BUCCAL DECREASED GLUCOSE; Start 12/15/16 at 14 :00 Hydralazine HCl (Apresoline) 25 mg Q8 PO Last administered on 12/21/16 14:33; Admin Dose 25 MG; Start 12/15/16 at 22:00 Cholecalciferol 1000 unit 1,000 unit DAILY PO Last administered on 12/21/16 09 :10; Admin Dose 1,000 UNIT; Start 12/16/16 at 09:00 Fentanyl 100 ml @ 2.5 mls/hr TITRATE IV Last administered on 12/21/16 14:45; Admin Dose 10 MLS/HR; Start 12/18/16 at 03:30 Levofloxacin/ Dextrose (Levaquin 250 Mg/ D5W 50 ml (Pmx)) 50 ml @ 50 mls/hr Q24H IVPB Last administered on 12/21/16 14:34; Admin Dose 50 MLS/HR; Start at 14:00 Dextrose (D50w Syringe) 25 ml Q15M PRN IV Till BS 80 mg/dL or above x2; Start 12/18/16 at 14:00 Dextrose (D50w Syringe) 50 ml Q15M PRN IV Till BS 80 mg/dL or above x2; Start 12/18/16 at 14:00 IV Flush (NS 10 ml) 10 ml PRN PRN IV IV PROTOCOL; Start 12/18/16 at 17:00 Diagnostic Test (Pha) 1 ea 1 ea Q2H XX Last administered on 12/21/16 14:42; Admin Dose 1 EA; Start 12/19/16 at 10:00 Norepinephrine 32 mg/Dextrose 250 ml @ 0.46 mls/hr TITRATE IV ; Start 12/19/16 at 09:30 Methylprednisolone Sodium Succinate 250 mg/Sodium Chloride 50 ml @ 100 mls/hr BID IV Last administered on 12/21/16 10:16; Admin Dose 100 MLS/HR; Start 12/19 at 21:00 Potassium Chloride/Sodium Chloride (1/2 NS + KCl 20 Meq) 1,000 ml @ 50 mls/hr Q20H IV Last administered on 12/21/16 04:50; Admin Dose 50 MLS/HR; Start 12/20 at 08:30 Amlodipine Besylate 5 mg 5 mg DAILY PO Last administered on 12/21/16 09:10; Admin Dose 5 MG; Start 12/21/16 at 09:00 Midazolam HCl 50 ml @ 1 mls/hr TITRATE IV Last administered on 12/21/16 12:16 ; Admin Dose 10 MLS/HR; Start 12/20/16 at 14:00 Propofol (Diprivan) 100 ml @ 3.255 mls/ hr Q12H IV Last administered on 14:45; Admin Dose 13.02 MLS/HR; Start 12/20/16 at 20:30 BREANA MORALES Dec 21, 2016 15:42
[2016-12-21] MEDS: INSULIN GLARGINE [LANtus] 3 ML PEN SC SCH (19:24)
[2016-12-21] MEDS: INSULIN HUMAN REGULAR 100 UNIT in SOD CHLORIDE 0.9% 99 ML IV SCH (20:39)
[2016-12-21] MEDS: ATORVASTATIN 80 MG TAB PO SCH (21:20)
[2016-12-22] VITALS (39 sets, daily range): BP systolic 122–176; BP diastolic 65–134; PULSE 50–88; RESP 24–35
[2016-12-22] MEDS: ACCU-CHEK XX SCH ×6 (00:28→10:44)
[2016-12-22] MEDS: 1/2 NS + KCL 20 MEQ 1,000 ML IV SCH ×2 (00:30→07:38)
[2016-12-22] MEDS: LEVALBUTEROL (HFA) 15 GM INHALER INH SCH ×4 (02:30→21:16)
[2016-12-22] MEDS: MIDAZOLAM (DRIP) 50 mg/50 mL 50 ML IV SCH ×4 (03:39→18:57)
[2016-12-22 04:57] LABS: ADD SCAN DIFF NO
[2016-12-22 05:05] LABS: ABNORMAL IP MESSAGE 1; BASOPHILS % 0.1 % (0.0-2.0); HEMOGLOBIN 10.4 g/dl (14.0-18.0); LYMPHOCYTES # 0.5 10^3/ul (0.8-2.9); LYMPHOCYTES % 5.1 % (15.0-51.0); MEAN CORPUSCULAR HEMOGLOBIN 26.3 pg (29.0-33.0); MEAN CORPUSCULAR HGB CONC 30.6 g/dl (32.0-37.0); MEAN CORPUSCULAR VOLUME 86.1 fl (82.0-101.0); MEAN PLATELET VOLUME 12.1 fl (7.4-10.4); MONOCYTE # 0.6 10^3/ul (0.3-0.9); NEUTROPHIL # 8.9 10^3/ul (1.6-7.5); NEUTROPHILS % 87.3 % (39.0-77.0); PLATELET COUNT 255 10^3/UL (140-415); RED BLOOD COUNT 3.95 10^6/ul (4.70-6.10); RED CELL DISTRIBUTION WIDTH 13.5 % (11.5-14.5); WHITE BLOOD COUNT 10.2 10^3/ul (4.8-10.8)
[2016-12-22 05:41] LABS: CALCIUM 7.7 mg/dl (8.4-10.2); CREATININE 2.43 mg/dl (0.61-1.24); MAGNESIUM 2.7 mg/dl (1.7-2.5); PHOSPHORUS 4.2 mg/dl (2.5-4.9); POTASSIUM 3.7 mmol/L (3.5-5.1)
[2016-12-22] MEDS: PROPOFOL 100 ML IV SCH ×4 (05:44→21:34)
[2016-12-22] MEDS: hydrALAzine 20 MG INJ IV PRN ×3 (06:21→19:39)
[2016-12-22] MEDS: SEVELAMER CARBONATE 2.4 GM PKT PO SCH ×3 (07:39→17:33)
[2016-12-22] MEDS: METHYLPRED NA SUCC IV SCH ×2 (08:44→22:11)
[2016-12-22] MEDS: SOD CHLORIDE 0.9% IV SCH ×2 (08:44→22:11)
[2016-12-22] MEDS: FAMOTIDINE 20 MG TAB PO SCH ×2 (08:44→21:35)
[2016-12-22] MEDS: FUROSEMIDE 40 MG INJ IV SCH ×2 (08:44→17:33)
[2016-12-22] MEDS: AMLODIPINE 5 MG TAB PO SCH (08:45)
[2016-12-22] MEDS: CHOLECALCIFEROL 1,000 UNIT TAB PO SCH (08:45)
[2016-12-22] MEDS: ASPIRIN 325 MG TAB PO SCH (08:45)
[2016-12-22] MEDS: FENTAnyl (DRIP) 1000 mcg/100mL 100 ML IV SCH ×2 (08:46→18:57)
[2016-12-22] MEDS: HEPARIN 5,000 UNIT/0.5 ML VIAL SC SCH ×2 (08:47→21:35)
--- NOTE | 2016-12-22 08:50 | PN ---
DATE: 12/22/2016 SUBJECTIVE: The patient remains critically ill, on ventilatory support. The patient was also noted to be hypotensive during the evening. No other events noted. No hemoptysis, hematemesis or hemato chezia. OBJECTIVE: VITAL SIGNS: Blood pressure 136/97, respirations 24, pulse 57, temperature 97.9. I's AND O'S: The patient had 2.2 liters in, 2 liters out. HEENT: Head is normocephalic. NECK: Supple. HEART: Regular rate. LUNGS: Showed diminished breath sounds at the base. ABDOMEN: Soft, nontender to palpation. No rebound or guarding. EXTREMITIES: Negative for clubbing or cyanosis. Positive edema. DERMATOLOGIC: No rashes. MUSCULOSKELETAL: Have no joint effusion. NEUROLOGIC: No change in exam. MEDICATIONS: The patient's medications have been reviewed. LABORATORY DATA: Shows white count 10.2, hemoglobin 10.4, hematocrit 34.0, platelet count 255. Sod ium 141, potassium 3.7, creatinine 114, BUN 16, creatinine 2.43, magnesium 2.7. IMAGING: Chest x-ray shows cardiomegaly, vascular congestion, small pleural effusion. ASSESSMENT AND PLAN: 1. Nonoliguric acute kidney injury with a previous baseline creatinine of 1.0 mg/dL. Etiology of a cute kidney injury is secondary to acute tubular necrosis due to septic acute kidney injury and isch emic hypoperfusion and shock. The patient appears to be entering maintenance phase of acute tubular necrosis, as renal function has stabilized in the last 48 hours. At this point continue the curren t treatment plan, supportive care, renally dose all meds. 2. Volume overload. Etiology is secondary to acute kidney injury. The patient is currently tolera ting diuretic therapy well. Will continue Lasix 40 mg b.i.d. Will lower the rate of IV fluids, mon itor closely. Monitor electrolytes closely. 4. Mineral bone disorder. Continue to monitor calcium and phosphorus levels. 5. Hypokalemia. Continue to monitor and replete as needed. 6. Anemia. Continue to monitor hemoglobin and hematocrit levels. 7. Ventilatory-dependent respiratory failure. Etiology is secondary to pneumonia. The patient's v ent settings and ABGs are reviewed. Continue to monitor. Follow up with pulmonary. 8. Sepsis, status post shock. The patient is currently on antibiotic therapy. Will continue. 9. Non-ST elevation myocardial infarction. Continue the current medical management. 10. Diabetes. Continue the current insulin regimen. 11. History of polysubstance abuse. 12. Encephalopathy. No change. 13. Hypertension. Etiology is in part due to increased intravascular volume. Continue diuretic th erapy. Continue the current blood pressure regimen and monitor closely. 14. Elevated troponin. Possible non-ST elevation myocardial infarction type 2. Continue medical m anagement. Dictated By: LUIS JOSHI/SUNDEEP Conf#: [id number] DID#: [id number]
--- NOTE | 2016-12-22 09:18 | CONS ---
Date/Time of Note Date/Time of Note DATE: 12/22/16 TIME: 09:14 Assessment/Plan Assessment/Plan Additional Assessment/Plan Ventilator settings; AC of 24, tidal volume 500, PEEP of 8, 75% FiO2. Patient currently on fentanyl drip at 100 mics per hour, insulin drip 2 U/h. Versed 10 mg/h. Next Assessment recommendations; next 1. Patient admitted with acute renal failure as well as bilateral pneumonia leading to respiratory failure. 2. 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 3. Extreme agitation once off sedation. 4. Persistent hypoxemia. 5. Paroxysmal atrial fibrillation, patient currently in sinus rhythm now. Obtain ABG on current ventilator settings. Once ABGs done patient will be evaluated for weaning down FiO2. Continue current supportive care. Will obtain follow-up chest x-ray in 24 hours. Prognosis is guarded. Start tube feeding. 35 minutes of critical care time was spent evaluating the patient. Consultation Date/Type/Reason Admit Date/Time Dec 15, 2016 at 11:20 Type of Consultation: Pulmonary/critical care Referring Provider: LEXII REED 24 HR Interval Summary Free Text/Dictation Patient condition remains critical. Still requiring full ventilator support at high FiO2. Patient still requiring sedation because of severe agitation whenever he is taken off sedation of the dose decreased. Patient however has remained hemodynamically stable. General exam; young male, orally intubated, sedated. Currently in no distress. Exam/Review of Systems Vital Signs Vitals Vital Signs Date Time Temp Pulse Resp B/P Pulse Ox O2 Delivery O2 Flow Rate FiO2 12/22/16 06:00 57 176/97 98 Mechanical Ventilator 12/22/16 05:48 24 75 12/22/16 04:00 96.9 Intake and Output 12/21/16 12/21/16 12/22/16 15:00 23:00 07:00 Intake Total 905 ml 794.0 ml 561.75 ml Output Total 1160 ml 440 ml 465 ml Balance -255 ml 354.0 ml 96.75 ml Exam HEENT exam is; supple neck, JVD difficult to see because of short neck. Orally intubated. No thyromegaly, no neck bruits. No lymphadenopathy. Pupils are small bilaterally. Chest examination; diminished but clear vessel. S1-S2 audible, no murmurs. Regular rhythm. Abdomen examination; soft, nondistended. No organomegaly. Bowel sounds audible. Extremity examination; no peripheral edema. DISTRIBUTION LEAD examination; patient is sedated. Results Result Diagram: 12/22/16 0400 12/22/16 0400 Results 24 hrs Laboratory Tests Test 12/21/16 10:07 12/21/16 12:07 12/21/16 14:41 12/21/16 17:23 Bedside Glucose 141 149 179 166 Test 12/21/16 18:13 12/21/16 19:46 12/21/16 21:53 12/22/16 00:10 Bedside Glucose 181 175 166 141 Test 12/22/16 02:04 12/22/16 03:42 12/22/16 04:00 12/22/16 05:47 Bedside Glucose 153 111 138 White Blood Count 10.2 Red Blood Count 3.95 L Hemoglobin 10.4 L Hematocrit 34.0 L Mean Corpuscular Volume 86.1 Mean Corpuscular Hemoglobin 26.3 L Mean Corpuscular Hemoglobin Concent 30.6 L Red Cell Distribution Width 13.5 Platelet Count 255 Mean Platelet Volume 12.1 H Neutrophils % 87.3 H Lymphocytes % 5.1 L Monocytes % 6.0 Eosinophils % 0.0 Basophils % 0.1 Nucleated Red Blood Cells % 0.0 Neutrophils # 8.9 H Lymphocytes # 0.5 L Monocytes # 0.6 Eosinophils # 0.0 Basophils # 0.0 Nucleated Red Blood Cells # 0.0 Sodium Level 141 Potassium Level 3.7 Chloride Level 114 H Carbon Dioxide Level 26 Anion Gap 5 L Blood Urea Nitrogen 67 H Creatinine 2.43 H Glucose Level 124 Calcium Level 7.7 L Phosphorus Level 4.2 Magnesium Level 2.7 H Test 12/22/16 07:42 Bedside Glucose 110 Medications Medications Current Medications Insulin Glargine (Lantus) 33 unit DAILY@20 SC Last administered on 12/17/16 20 :51; Admin Dose 33 UNIT; Start 12/15/16 at 20:00 Ondansetron HCl (Zofran Inj) 4 mg Q6H PRN IV NAUSEA AND/OR VOMITING; Start at 13:00 Acetaminophen (Tylenol Tab) 650 mg Q6H PRN PO PAIN LEVEL 1-3 OR FEVER Last administered on 12/17/16 18:16; Admin Dose 650 MG; Start 12/15/16 at 13:00 Acetaminophen/ Hydrocodone Bitart ([place] (5/325)) 1 tab Q6H PRN PO PAIN LEVEL 4 -6 Last administered on 12/15/16 22:08; Admin Dose 1 TAB; Start 12/15/16 at 13: 00 Morphine Sulfate (morphine) 2 mg Q4H PRN IV PAIN LEVEL 7-10 Last administered on 12/20/16 19:57; Admin Dose 2 MG; Start 12/15/16 at 13:00 Magnesium Hydroxide (Milk Of Mag) 30 ml DAILY PRN PO CONSTIPATION; Start at 13:00 Bisacodyl (Dulcolax) 5 mg DAILY PRN PO CONSTIPATION; Start 12/15/16 at 13:00 Famotidine (Pepcid) 20 mg Q12 PO Last administered on 12/22/16 08:44; Admin Dose 20 MG; Start 12/15/16 at 21:00 Hydralazine HCl (Apresoline) 10 mg Q6H PRN IV SBP>160 Last administered on 12/22 06:21; Admin Dose 10 MG; Start 12/15/16 at 13:00 Aspirin (Aspirin) 325 mg DAILY PO Last administered on 12/22/16 08:45; Admin Dose 325 MG; Start 12/16/16 at 09:00 Atorvastatin Calcium 80 mg 80 mg QHS PO Last administered on 12/21/16 21:20; Admin Dose 80 MG; Start 12/15/16 at 21:00 Ceftriaxone Sodium (Rocephin) 50 ml @ 100 mls/hr Q24H IVPB Last administered on 12/21/16 14:34; Admin Dose 100 MLS/HR; Start 12/15/16 at 15:00 Heparin Sodium (Porcine) (Heparin (5000 Units/0.5 ml)) 5,000 unit BID SC Last administered on 12/22/16 08:47; Admin Dose 5,000 UNIT; Start 12/15/16 at 21:00 Miscellaneous Information 1 ea NOTE XX ; Start 12/15/16 at 14:00 Glucose (Glutose) 15 gm Q15M PRN PO DECREASED GLUCOSE; Start 12/15/16 at 14:00 Glucose (Glutose) 22.5 gm Q15M PRN PO DECREASED GLUCOSE; Start 12/15/16 at 14: 00 Dextrose (D50w Syringe) 25 ml Q15M PRN IV DECREASED GLUCOSE; Start 12/15/16 at 14:00 Dextrose (D50w Syringe) 50 ml Q15M PRN IV DECREASED GLUCOSE; Start 12/15/16 at 14:00 Glucagon (Glucagen) 1 mg Q15M PRN IM DECREASED GLUCOSE; Start 12/15/16 at 14:00 Glucose (Glutose) 15 gm Q15M PRN BUCCAL DECREASED GLUCOSE; Start 12/15/16 at 14 :00 Hydralazine HCl (Apresoline) 25 mg Q8 PO Last administered on 12/22/16 05:19; Admin Dose 25 MG; Start 12/15/16 at 22:00 Cholecalciferol 1000 unit 1,000 unit DAILY PO Last administered on 12/22/16 08 :45; Admin Dose 1,000 UNIT; Start 12/16/16 at 09:00 Fentanyl 100 ml @ 2.5 mls/hr TITRATE IV Last administered on 12/22/16 08:46; Admin Dose 10 MLS/HR; Start 12/18/16 at 03:30 Levofloxacin/ Dextrose (Levaquin 250 Mg/ D5W 50 ml (Pmx)) 50 ml @ 50 mls/hr Q24H IVPB Last administered on 12/21/16 14:34; Admin Dose 50 MLS/HR; Start at 14:00 Dextrose (D50w Syringe) 25 ml Q15M PRN IV Till BS 80 mg/dL or above x2; Start 12/18/16 at 14:00 Dextrose (D50w Syringe) 50 ml Q15M PRN IV Till BS 80 mg/dL or above x2; Start 12/18/16 at 14:00 IV Flush (NS 10 ml) 10 ml PRN PRN IV IV PROTOCOL; Start 12/18/16 at 17:00 Diagnostic Test (Pha) 1 ea 1 ea Q2H XX Last administered on 12/22/16 08:01; Admin Dose 1 EA; Start 12/19/16 at 10:00 Norepinephrine 32 mg/Dextrose 250 ml @ 0.46 mls/hr TITRATE IV ; Start 12/19/16 at 09:30 Methylprednisolone Sodium Succinate 250 mg/Sodium Chloride 50 ml @ 100 mls/hr BID IV Last administered on 12/22/16 08:44; Admin Dose 100 MLS/HR; Start 12/19 at 21:00 Potassium Chloride/Sodium Chloride (1/2 NS + KCl 20 Meq) 1,000 ml @ 20 mls/hr Q24H IV Last administered on 12/22/16 07:38; Admin Dose 50 MLS/HR; Start 12/20 at 08:30 Amlodipine Besylate 5 mg 5 mg DAILY PO Last administered on 12/22/16 08:45; Admin Dose 5 MG; Start 12/21/16 at 09:00 Midazolam HCl 50 ml @ 1 mls/hr TITRATE IV Last administered on 12/22/16 08:45 ; Admin Dose 10 MLS/HR; Start 12/20/16 at 14:00 Propofol (Diprivan) 100 ml @ 3.255 mls/ hr Q12H IV Last administered on 05:44; Admin Dose 6.51 MLS/HR; Start 12/20/16 at 20:30 Hydralazine HCl (Apresoline) 10 mg Q4H PRN IV sbp > 160; Start 12/22/16 at 06: 30 JESS STALLINGS Dec 22, 2016 09:18
[2016-12-22 10:32] LABS: AADO2 Arterial 427.6 mmHg (7.0-24.0); Arterial Base Excess -0.5 mmol/L (-3.0-3); Arterial COHb 0.3 % (0.0-3.0); Arterial Fraction of Oxyhgb 92.9 % (93.0-99.0); Arterial HCO3 23.1 mmol/L (22.0-26.0); Arterial MetHb 0.4 % (0.0-1.5); Arterial Total Hemglobin 12.2 g/dl (12.0-18.0); MODE VENT - AC
[2016-12-22] MEDS ORDERED: INSULIN ASPART [NOVOLOG] 3 ML PEN SC SCH ×2 (12:00→17:35)
[2016-12-22] MEDS: Insulin NOVOLOG SS MILD Algorithm (NPO/TPN/ENTERAL FEEDS) SC SCH ×2 (12:30→17:35)
--- NOTE | 2016-12-22 13:18 | CONS ---
Date/Time of Note Date/Time of Note DATE: 12/22/16 TIME: 13:08 Assessment/Plan Assessment/Plan Chief Complaint/Hosp Course IMPRESSION: 1. Positive troponin, assess significance.-no sig uptrend 2. Abnormal electrocardiogram with ST depressions with tachycardia and positive troponin, likely indicative of coronary artery disease.-improved ecg findings with improved HR 3. Hypertension, uncontrolled mildly still 4. Dyslipidemia. 5. Diabetes mellitus. 6. Fevers to 104 documented here in the hospital.-still having low grade 7. Renal failure.-acute on chronic 8. Lower extremity edema, assess for congestive heart failure. 9. Hypokalemia. 10. Nausea and vomiting. 11. Chest pain with cough. 12.Resp failure s/p intubation 14. Bradycardia-to 40's.Most recently in 50's Recc: -Tele -serial ecg's -Continue asa/statin -Continue abx's and f/u cx data -Continue bronchodilators and steroids. -Follow volume status closely -Hold coreg due to bradycardia -Continue hydralazine/norvasc as tolerated with probable need to increase dose Problems: Consultation Date/Type/Reason Admit Date/Time Dec 15, 2016 at 11:20 Initial Consult Date 12/15/2016 Type of Consultation: Cardiology Reason for Consultation positive troponin Referring Provider: LEXII REED Exam/Review of Systems Vital Signs Vitals Vital Signs Date Time Temp Pulse Resp B/P Pulse Ox O2 Delivery O2 Flow Rate FiO2 12/22/16 12:00 97.5 54 144/83 95 Mechanical Ventilator 12/22/16 11:07 24 75 Intake and Output 12/21/16 12/21/16 12/22/16 15:00 23:00 07:00 Intake Total 905 ml 794.0 ml 561.75 ml Output Total 1160 ml 440 ml 465 ml Balance -255 ml 354.0 ml 96.75 ml Exam Review of Systems: CONSTITUTIONAL: No fevers, chills. PULMONARY: intubated CARDIOVASCULAR: No obvious chest pain/palpitations GASTROINTESTINAL: No nausea/vomiting. GENITOURINARY: No hematuria/dysuria. MUSCULOSKELETAL: No obvious myagias/arthalgias. PSYCHIATRIC: The patient denies depression. NEUROLOGIC: sedated Constitutional: other (sedated) Psych: no complaints ENMT: intubated Neck: jvd (9 cm water), supple Respiratory: other (upper airway rhoncherous sounds) Cardiovascular: regular rate and rhythm Gastrointestinal: non-tender, soft Musculoskeletal: muscle tone (normal) Extremities: edema (trace/B) Neurological: other (sedated) Results Result Diagram: 12/22/16 0400 12/22/16 0400 Results 24 hrs Laboratory Tests Test 12/21/16 14:41 12/21/16 17:23 12/21/16 18:13 12/21/16 19:46 Bedside Glucose 179 166 181 175 Test 12/21/16 21:53 12/22/16 00:10 12/22/16 02:04 12/22/16 03:42 Bedside Glucose 166 141 153 111 Test 12/22/16 04:00 12/22/16 05:47 12/22/16 07:42 12/22/16 09:13 White Blood Count 10.2 Red Blood Count 3.95 L Hemoglobin 10.4 L Hematocrit 34.0 L Mean Corpuscular Volume 86.1 Mean Corpuscular Hemoglobin 26.3 L Mean Corpuscular Hemoglobin Concent 30.6 L Red Cell Distribution Width 13.5 Platelet Count 255 Mean Platelet Volume 12.1 H Neutrophils % 87.3 H Lymphocytes % 5.1 L Monocytes % 6.0 Eosinophils % 0.0 Basophils % 0.1 Nucleated Red Blood Cells % 0.0 Neutrophils # 8.9 H Lymphocytes # 0.5 L Monocytes # 0.6 Eosinophils # 0.0 Basophils # 0.0 Nucleated Red Blood Cells # 0.0 Sodium Level 141 Potassium Level 3.7 Chloride Level 114 H Carbon Dioxide Level 26 Anion Gap 5 L Blood Urea Nitrogen 67 H Creatinine 2.43 H Glucose Level 124 Calcium Level 7.7 L Phosphorus Level 4.2 Magnesium Level 2.7 H Bedside Glucose 138 110 Blood Gas Specimen Source Blood arterial Arterial Blood Date Drawn 12/22/2016 10:10:14 AM Arterial Blood pH (Temp corrected) 7.444 Arterial Blood pCO2 (Temp correct) 34.4 L Arterial Blood pO2 (Temp corrected) 70.6 L Arterial Blood HCO3 23.1 Arterial Blood Base Excess -0.5 Arterial Blood Oxygen Saturation 93.6 L Leobardo Test N/A Arterial Blood Gas Puncture Site LB Arterial Blood Carboxyhemoglobin 0.3 Arterial Blood Methemoglobin 0.4 Blood Gas A-a O2 Differential 427.6 H Oxyhemoglobin Percent 92.9 L Total Hemoglobin 12.2 Blood Gas Temperature 37.0 Blood Gas Respiration Rate 24.0 Blood Gas Actual Respiration Rate 24 Blood Gas Modality VENT - AC FiO2 75.0 Blood Gas Tidal Volume 500.0 Blood Gas Low PEEP Setting 8.0 Blood Gas Notified Whom JLD Blood Gas Notified Time 12/22/2016 10:32:21 AM Test 12/22/16 10:43 12/22/16 11:40 Bedside Glucose 107 Lab Scanned Report REFERENCE LAB Medications Medications Current Medications Insulin Glargine (Lantus) 33 unit DAILY@20 SC Last administered on 12/17/16 20 :51; Admin Dose 33 UNIT; Start 12/15/16 at 20:00 Ondansetron HCl (Zofran Inj) 4 mg Q6H PRN IV NAUSEA AND/OR VOMITING; Start at 13:00 Acetaminophen (Tylenol Tab) 650 mg Q6H PRN PO PAIN LEVEL 1-3 OR FEVER Last administered on 12/17/16 18:16; Admin Dose 650 MG; Start 12/15/16 at 13:00 Acetaminophen/ Hydrocodone Bitart ([place] (5/325)) 1 tab Q6H PRN PO PAIN LEVEL 4 -6 Last administered on 12/15/16 22:08; Admin Dose 1 TAB; Start 12/15/16 at 13: 00 Morphine Sulfate (morphine) 2 mg Q4H PRN IV PAIN LEVEL 7-10 Last administered on 12/20/16 19:57; Admin Dose 2 MG; Start 12/15/16 at 13:00 Magnesium Hydroxide (Milk Of Mag) 30 ml DAILY PRN PO CONSTIPATION; Start at 13:00 Bisacodyl (Dulcolax) 5 mg DAILY PRN PO CONSTIPATION; Start 12/15/16 at 13:00 Famotidine (Pepcid) 20 mg Q12 PO Last administered on 12/22/16 08:44; Admin Dose 20 MG; Start 12/15/16 at 21:00 Hydralazine HCl (Apresoline) 10 mg Q6H PRN IV SBP>160 Last administered on 12/22 11:52; Admin Dose 10 MG; Start 12/15/16 at 13:00 Aspirin (Aspirin) 325 mg DAILY PO Last administered on 12/22/16 08:45; Admin Dose 325 MG; Start 12/16/16 at 09:00 Atorvastatin Calcium 80 mg 80 mg QHS PO Last administered on 12/21/16 21:20; Admin Dose 80 MG; Start 12/15/16 at 21:00 Ceftriaxone Sodium (Rocephin) 50 ml @ 100 mls/hr Q24H IVPB Last administered on 12/21/16 14:34; Admin Dose 100 MLS/HR; Start 12/15/16 at 15:00 Heparin Sodium (Porcine) (Heparin (5000 Units/0.5 ml)) 5,000 unit BID SC Last administered on 12/22/16 08:47; Admin Dose 5,000 UNIT; Start 12/15/16 at 21:00 Miscellaneous Information 1 ea NOTE XX ; Start 12/15/16 at 14:00 Glucose (Glutose) 15 gm Q15M PRN PO DECREASED GLUCOSE; Start 12/15/16 at 14:00 Glucose (Glutose) 22.5 gm Q15M PRN PO DECREASED GLUCOSE; Start 12/15/16 at 14: 00 Dextrose (D50w Syringe) 25 ml Q15M PRN IV DECREASED GLUCOSE; Start 12/15/16 at 14:00 Dextrose (D50w Syringe) 50 ml Q15M PRN IV DECREASED GLUCOSE; Start 12/15/16 at 14:00 Glucagon (Glucagen) 1 mg Q15M PRN IM DECREASED GLUCOSE; Start 12/15/16 at 14:00 Glucose (Glutose) 15 gm Q15M PRN BUCCAL DECREASED GLUCOSE; Start 12/15/16 at 14 :00 Hydralazine HCl (Apresoline) 25 mg Q8 PO Last administered on 12/22/16 05:19; Admin Dose 25 MG; Start 12/15/16 at 22:00 Cholecalciferol 1000 unit 1,000 unit DAILY PO Last administered on 12/22/16 08 :45; Admin Dose 1,000 UNIT; Start 12/16/16 at 09:00 Fentanyl 100 ml @ 2.5 mls/hr TITRATE IV Last administered on 12/22/16 08:46; Admin Dose 10 MLS/HR; Start 12/18/16 at 03:30 Levofloxacin/ Dextrose (Levaquin 250 Mg/ D5W 50 ml (Pmx)) 50 ml @ 50 mls/hr Q24H IVPB Last administered on 12/21/16 14:34; Admin Dose 50 MLS/HR; Start at 14:00 Dextrose (D50w Syringe) 25 ml Q15M PRN IV Till BS 80 mg/dL or above x2; Start 12/18/16 at 14:00 Dextrose (D50w Syringe) 50 ml Q15M PRN IV Till BS 80 mg/dL or above x2; Start 12/18/16 at 14:00 IV Flush 10 ml 10 ml PRN PRN IV IV PROTOCOL; Start 12/18/16 at 17:00 Norepinephrine 32 mg/Dextrose 250 ml @ 0.46 mls/hr TITRATE IV ; Start 12/19/16 at 09:30 Methylprednisolone Sodium Succinate 250 mg/Sodium Chloride 50 ml @ 100 mls/hr BID IV Last administered on 12/22/16 08:44; Admin Dose 100 MLS/HR; Start 12/19 at 21:00 Potassium Chloride/Sodium Chloride (1/2 NS + KCl 20 Meq) 1,000 ml @ 20 mls/hr Q24H IV Last administered on 12/22/16 07:38; Admin Dose 50 MLS/HR; Start 12/20 at 08:30 Amlodipine Besylate 5 mg 5 mg DAILY PO Last administered on 12/22/16 08:45; Admin Dose 5 MG; Start 12/21/16 at 09:00 Midazolam HCl 50 ml @ 1 mls/hr TITRATE IV Last administered on 12/22/16 08:45 ; Admin Dose 10 MLS/HR; Start 12/20/16 at 14:00 Propofol (Diprivan) 100 ml @ 3.255 mls/ hr Q12H IV Last administered on 05:44; Admin Dose 6.51 MLS/HR; Start 12/20/16 at 20:30 Hydralazine HCl (Apresoline) 10 mg Q4H PRN IV sbp > 160; Start 12/22/16 at 06: 30 Insulin Aspart (Novolog Insulin Pen) (Adult SC Insulin - Mild Algorithm)... Q6 SC ; Start 12/22/16 at 12:30 VI ADAMES Dec 22, 2016 13:18
[2016-12-22] MEDS: LEVOFLOXACIN 250MG/D5W (PMX) 50 ML IVPB SCH (13:40)
[2016-12-22] MEDS: CEFTRIAXONE 1 GM/50 ML (PMX) 50 ML IVPB SCH (14:24)
--- NOTE | 2016-12-22 14:45 | PN ---
Date/Time of Note Date/Time of Note DATE: 12/22/16 TIME: 14:39 Assessment/Plan VTE Prophylaxis VTE Prophylaxis Intervention: heparin Lines/Catheters IV Catheter Type (from Nrs): PICC Line Central line still needed: Yes Urinary Cath still in place: Yes Reason Cath still needed: other (indicate) (monitor I&O) Assessment/Plan Chief Complaint/Hosp Course Assessment and plan 1. Sepsis secondary to underlying committee acquired pneumonia. Noted with underlying septic shock. Continue on antibiotics. Continue with ID recommendations. await for clinical improvement. off vasopressors at this time . cont vent liberation as tolerated. check f/u abg and cxr 2. Acute hypoxic respiratory failure. Likely secondary to underlying pneumonia. Of note patient was intubated on 12/18/2016. Continue with breathing treatments. 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 Patient also with suspect granulomatosis with polyangiitis versus microscopic polyangiitis. Fat Purification Worker consultation is pending still 3. Elevated troponins. Likely type II. Is in the setting of sepsis as well as acute renal insufficiency. Continue with cardiology recommendations. Continue telemetry monitoring. stable at present. 4. Acute kidney injury. Medications to renally dose. Likely from ATN. medications renally dosed. continue with nephrology recs 5. Type 2 diabetes. Continue insulin regimen. Will adjust as needed. stable at present 6. Dyslipidemia. continue on statin 7. Essential hypertension. on antihypertensives and adjust as needed 8. Morbid obesity. Weight reduction to be advised once patient more alert and oriented DVT prophylaxis: Heparin GERD prophylaxis: H2 lo Disposition and plan: cont vent liberation trials. continue abx. Await for improvement. follow up with pulm recs Discussed plan of care with Dr. Payan Critical Care time : 30 minutes Problems: Subjective 24 Hr Interval Summary Free Text/Dictation still intubated and sedated. no real change Exam/Review of Systems Vital Signs Vitals Vital Signs Date Time Temp Pulse Resp B/P Pulse Ox O2 Delivery O2 Flow Rate FiO2 12/22/16 13:16 87 35 99 75 12/22/16 12:00 97.5 144/83 Mechanical Ventilator Intake and Output 12/21/16 12/21/16 12/22/16 15:00 23:00 07:00 Intake Total 905 ml 794.0 ml 561.75 ml Output Total 1160 ml 440 ml 465 ml Balance -255 ml 354.0 ml 96.75 ml Exam General: morbidly obese, no agitation seen. sedated, no s/s of distress Eyes: pupils equal round Neck: no obvious jvd Cardiac: remains regular rate Pulmonary: no wheezing/rhonchi GI: Soft nontender Extremities: Minimal edema bilateral lower extremity still Skin: Noted with left great toe amputation. Minimal bilateral lower extremity edema unchanged Neurologic: intubated And sedated Results Result Diagram: 12/22/16 0400 12/22/16 0400 Results 24 hrs Laboratory Tests Test 12/21/16 14:41 12/21/16 17:23 12/21/16 18:13 12/21/16 19:46 Bedside Glucose 179 166 181 175 Test 12/21/16 21:53 12/22/16 00:10 12/22/16 02:04 12/22/16 03:42 Bedside Glucose 166 141 153 111 Test 12/22/16 04:00 12/22/16 05:47 12/22/16 07:42 12/22/16 09:13 White Blood Count 10.2 Red Blood Count 3.95 L Hemoglobin 10.4 L Hematocrit 34.0 L Mean Corpuscular Volume 86.1 Mean Corpuscular Hemoglobin 26.3 L Mean Corpuscular Hemoglobin Concent 30.6 L Red Cell Distribution Width 13.5 Platelet Count 255 Mean Platelet Volume 12.1 H Neutrophils % 87.3 H Lymphocytes % 5.1 L Monocytes % 6.0 Eosinophils % 0.0 Basophils % 0.1 Nucleated Red Blood Cells % 0.0 Neutrophils # 8.9 H Lymphocytes # 0.5 L Monocytes # 0.6 Eosinophils # 0.0 Basophils # 0.0 Nucleated Red Blood Cells # 0.0 Sodium Level 141 Potassium Level 3.7 Chloride Level 114 H Carbon Dioxide Level 26 Anion Gap 5 L Blood Urea Nitrogen 67 H Creatinine 2.43 H Glucose Level 124 Calcium Level 7.7 L Phosphorus Level 4.2 Magnesium Level 2.7 H Bedside Glucose 138 110 Blood Gas Specimen Source Blood arterial Arterial Blood Date Drawn 12/22/2016 10:10:14 AM Arterial Blood pH (Temp corrected) 7.444 Arterial Blood pCO2 (Temp correct) 34.4 L Arterial Blood pO2 (Temp corrected) 70.6 L Arterial Blood HCO3 23.1 Arterial Blood Base Excess -0.5 Arterial Blood Oxygen Saturation 93.6 L Leobardo Test N/A Arterial Blood Gas Puncture Site LB Arterial Blood Carboxyhemoglobin 0.3 Arterial Blood Methemoglobin 0.4 Blood Gas A-a O2 Differential 427.6 H Oxyhemoglobin Percent 92.9 L Total Hemoglobin 12.2 Blood Gas Temperature 37.0 Blood Gas Respiration Rate 24.0 Blood Gas Actual Respiration Rate 24 Blood Gas Modality VENT - AC FiO2 75.0 Blood Gas Tidal Volume 500.0 Blood Gas Low PEEP Setting 8.0 Blood Gas Notified Whom JLD Blood Gas Notified Time 12/22/2016 10:32:21 AM Test 12/22/16 10:43 12/22/16 11:40 12/22/16 13:21 Bedside Glucose 107 128 Lab Scanned Report REFERENCE LAB Medications Medications Current Medications Insulin Glargine (Lantus) 33 unit DAILY@20 SC Last administered on 12/17/16 20 :51; Admin Dose 33 UNIT; Start 12/15/16 at 20:00 Ondansetron HCl (Zofran Inj) 4 mg Q6H PRN IV NAUSEA AND/OR VOMITING; Start at 13:00 Acetaminophen (Tylenol Tab) 650 mg Q6H PRN PO PAIN LEVEL 1-3 OR FEVER Last administered on 12/17/16 18:16; Admin Dose 650 MG; Start 12/15/16 at 13:00 Acetaminophen/ Hydrocodone Bitart ([place] (5/325)) 1 tab Q6H PRN PO PAIN LEVEL 4 -6 Last administered on 12/15/16 22:08; Admin Dose 1 TAB; Start 12/15/16 at 13: 00 Morphine Sulfate (morphine) 2 mg Q4H PRN IV PAIN LEVEL 7-10 Last administered on 12/20/16 19:57; Admin Dose 2 MG; Start 12/15/16 at 13:00 Magnesium Hydroxide (Milk Of Mag) 30 ml DAILY PRN PO CONSTIPATION; Start at 13:00 Bisacodyl (Dulcolax) 5 mg DAILY PRN PO CONSTIPATION; Start 12/15/16 at 13:00 Famotidine (Pepcid) 20 mg Q12 PO Last administered on 12/22/16 08:44; Admin Dose 20 MG; Start 12/15/16 at 21:00 Hydralazine HCl (Apresoline) 10 mg Q6H PRN IV SBP>160 Last administered on 12/22 11:52; Admin Dose 10 MG; Start 12/15/16 at 13:00 Aspirin (Aspirin) 325 mg DAILY PO Last administered on 12/22/16 08:45; Admin Dose 325 MG; Start 12/16/16 at 09:00 Atorvastatin Calcium 80 mg 80 mg QHS PO Last administered on 12/21/16 21:20; Admin Dose 80 MG; Start 12/15/16 at 21:00 Ceftriaxone Sodium (Rocephin) 50 ml @ 100 mls/hr Q24H IVPB Last administered on 12/22/16 14:24; Admin Dose 100 MLS/HR; Start 12/15/16 at 15:00 Heparin Sodium (Porcine) (Heparin (5000 Units/0.5 ml)) 5,000 unit BID SC Last administered on 12/22/16 08:47; Admin Dose 5,000 UNIT; Start 12/15/16 at 21:00 Miscellaneous Information 1 ea NOTE XX ; Start 12/15/16 at 14:00 Glucose (Glutose) 15 gm Q15M PRN PO DECREASED GLUCOSE; Start 12/15/16 at 14:00 Glucose (Glutose) 22.5 gm Q15M PRN PO DECREASED GLUCOSE; Start 12/15/16 at 14: 00 Dextrose (D50w Syringe) 25 ml Q15M PRN IV DECREASED GLUCOSE; Start 12/15/16 at 14:00 Dextrose (D50w Syringe) 50 ml Q15M PRN IV DECREASED GLUCOSE; Start 12/15/16 at 14:00 Glucagon (Glucagen) 1 mg Q15M PRN IM DECREASED GLUCOSE; Start 12/15/16 at 14:00 Glucose (Glutose) 15 gm Q15M PRN BUCCAL DECREASED GLUCOSE; Start 12/15/16 at 14 :00 Hydralazine HCl (Apresoline) 25 mg Q8 PO Last administered on 12/22/16 13:26; Admin Dose 25 MG; Start 12/15/16 at 22:00 Cholecalciferol 1000 unit 1,000 unit DAILY PO Last administered on 12/22/16 08 :45; Admin Dose 1,000 UNIT; Start 12/16/16 at 09:00 Fentanyl 100 ml @ 2.5 mls/hr TITRATE IV Last administered on 12/22/16 08:46; Admin Dose 10 MLS/HR; Start 12/18/16 at 03:30 Levofloxacin/ Dextrose (Levaquin 250 Mg/ D5W 50 ml (Pmx)) 50 ml @ 50 mls/hr Q24H IVPB Last administered on 12/22/16 13:40; Admin Dose 50 MLS/HR; Start at 14:00 Dextrose (D50w Syringe) 25 ml Q15M PRN IV Till BS 80 mg/dL or above x2; Start 12/18/16 at 14:00 Dextrose (D50w Syringe) 50 ml Q15M PRN IV Till BS 80 mg/dL or above x2; Start 12/18/16 at 14:00 IV Flush 10 ml 10 ml PRN PRN IV IV PROTOCOL; Start 12/18/16 at 17:00 Norepinephrine 32 mg/Dextrose 250 ml @ 0.46 mls/hr TITRATE IV ; Start 12/19/16 at 09:30 Methylprednisolone Sodium Succinate 250 mg/Sodium Chloride 50 ml @ 100 mls/hr BID IV Last administered on 12/22/16 08:44; Admin Dose 100 MLS/HR; Start 12/19 at 21:00 Potassium Chloride/Sodium Chloride (1/2 NS + KCl 20 Meq) 1,000 ml @ 20 mls/hr Q24H IV Last administered on 12/22/16 07:38; Admin Dose 50 MLS/HR; Start 12/20 at 08:30 Amlodipine Besylate 5 mg 5 mg DAILY PO Last administered on 12/22/16 08:45; Admin Dose 5 MG; Start 12/21/16 at 09:00 Midazolam HCl 50 ml @ 1 mls/hr TITRATE IV Last administered on 12/22/16 13:26 ; Admin Dose 10 MLS/HR; Start 12/20/16 at 14:00 Propofol (Diprivan) 100 ml @ 3.255 mls/ hr Q12H IV Last administered on 13:25; Admin Dose 19.53 MLS/HR; Start 12/20/16 at 20:30 Hydralazine HCl (Apresoline) 10 mg Q4H PRN IV sbp > 160; Start 12/22/16 at 06: 30 Insulin Aspart (Novolog Insulin Pen) (Adult SC Insulin - Mild Algorithm)... Q6 SC ; Start 12/22/16 at 12:30 BREANA MORALES Dec 22, 2016 14:45
--- NOTE | 2016-12-22 14:48 | CONS ---
Date/Time of Note Date/Time of Note DATE: 12/22/16 TIME: 14:44 Assessment/Plan Assessment/Plan Chief Complaint/Hosp Course ID PROGRESS NOTE TOTAL ABX DAY # 7 => Ceftriaxone #7 + Levaquin #5 + Azith #3 s/p Intubated early am 12/18/16 NEW LAB RESULTS: (+)Cocaine, (+)Mycoplasma PNA IgG, A1c 14.6, (-)Cocci, (-) Crypto 24H INTERVAL SUMMARY * Clinically status quo -- stable on the Vent - no fevers, WBC normalized, * CXR 12/20: .IMPRESSION: Cardiomegaly .Central pulmonary vascular congestion and interstitial prominence in both lungs. Minimal interval decrease in patchy infiltrates throughout both lungs. Significant residual remains. 12/22/16 0400 12/22/16 0400 PHYSICAL EXAMINATION: GENERAL: -> Morbid obese M, noncommunicative, orally intubated on the Vent, no fevers HEENT: ETT/OGT secure NECK: Supple, trach-> midline CHEST: Equal chest rise bilaterally, without dyspnea on observation / Vented HEART: Pulse RRR - NSR on tele ABDOMEN: Soft, obese EXTREMITIES: Warm w/generalized dependent edema SKIN: Warm, dry ID ASSESSMENT: 41 yo Morbid Obese M (+)Cocaine screen on admission seen in ICU today with : 1. Sepsis secondary to underlying community-acquired pneumonia, hypotension, acute encephalopathy, DKA * DDx Opportunistic vs cryptogenic organizing pneumonia * SEROLOGIES: (+)Mycoplasma PNA IgG, (-)Cocci, (-)Crypto * DDx ?Silent Aspiration PNA - risk factors obesity ?CHRISTINE ? GERD 2. Acute hypoxic respiratory failure=>Intubated early am 12/18 * PNA (+) * Pulmonary HTN per CT ?COPD * ?Obesity hypoventilation syndrome 3. Elevated troponins. Most probably a type 2 event from underlying sepsis and underlying acute kidney injury. 4. Acute kidney injury. 5. DKA - Type 2 diabetes mellitus.->A1c @ 14.6 6. Dyslipidemia. Continue statins. 7. Essential hypertension. . 8. Microcytic, hypochromic anemia (-) MRSA Nares (-)HIV Screen INVASIVES: * PIV ABX ALLERGIES: Vanco IV CURRENT ABX: TOTAL ABX DAY # 7 => Ceftriaxone #7 + Levaquin #5 DC Azith 12/18 ID RECOMMENDATIONS: 1.Continue ABX - Patient on adequate coverage for Atypical PNA, received Azith x 3 days-> to complete 14 day ABX course with Levaquin * , (+)Mycoplasma PNA 2.47 IgG (prior exposure vs current) 2.. Continue vent support, per pulmonary . Problems: Consultation Date/Type/Reason Admit Date/Time Dec 15, 2016 at 11:20 Type of Consultation: ID Referring Provider: LEXII REED Exam/Review of Systems Vital Signs Vitals Vital Signs Date Time Temp Pulse Resp B/P Pulse Ox O2 Delivery O2 Flow Rate FiO2 12/22/16 13:16 87 35 99 75 12/22/16 12:00 97.5 144/83 Mechanical Ventilator Intake and Output 12/21/16 12/21/16 12/22/16 15:00 23:00 07:00 Intake Total 905 ml 794.0 ml 561.75 ml Output Total 1160 ml 440 ml 465 ml Balance -255 ml 354.0 ml 96.75 ml Results Result Diagram: 12/22/16 0400 12/22/16 0400 Results 24 hrs Laboratory Tests Test 12/21/16 17:23 12/21/16 18:13 12/21/16 19:46 12/21/16 21:53 Bedside Glucose 166 181 175 166 Test 12/22/16 00:10 12/22/16 02:04 12/22/16 03:42 12/22/16 04:00 Bedside Glucose 141 153 111 White Blood Count 10.2 Red Blood Count 3.95 L Hemoglobin 10.4 L Hematocrit 34.0 L Mean Corpuscular Volume 86.1 Mean Corpuscular Hemoglobin 26.3 L Mean Corpuscular Hemoglobin Concent 30.6 L Red Cell Distribution Width 13.5 Platelet Count 255 Mean Platelet Volume 12.1 H Neutrophils % 87.3 H Lymphocytes % 5.1 L Monocytes % 6.0 Eosinophils % 0.0 Basophils % 0.1 Nucleated Red Blood Cells % 0.0 Neutrophils # 8.9 H Lymphocytes # 0.5 L Monocytes # 0.6 Eosinophils # 0.0 Basophils # 0.0 Nucleated Red Blood Cells # 0.0 Sodium Level 141 Potassium Level 3.7 Chloride Level 114 H Carbon Dioxide Level 26 Anion Gap 5 L Blood Urea Nitrogen 67 H Creatinine 2.43 H Glucose Level 124 Calcium Level 7.7 L Phosphorus Level 4.2 Magnesium Level 2.7 H Test 12/22/16 05:47 12/22/16 07:42 12/22/16 09:13 12/22/16 10:43 Bedside Glucose 138 110 107 Blood Gas Specimen Source Blood arterial Arterial Blood Date Drawn 12/22/2016 10:10:14 AM Arterial Blood pH (Temp corrected) 7.444 Arterial Blood pCO2 (Temp correct) 34.4 L Arterial Blood pO2 (Temp corrected) 70.6 L Arterial Blood HCO3 23.1 Arterial Blood Base Excess -0.5 Arterial Blood Oxygen Saturation 93.6 L Loebardo Test N/A Arterial Blood Gas Puncture Site LB Arterial Blood Carboxyhemoglobin 0.3 Arterial Blood Methemoglobin 0.4 Blood Gas A-a O2 Differential 427.6 H Oxyhemoglobin Percent 92.9 L Total Hemoglobin 12.2 Blood Gas Temperature 37.0 Blood Gas Respiration Rate 24.0 Blood Gas Actual Respiration Rate 24 Blood Gas Modality VENT - AC FiO2 75.0 Blood Gas Tidal Volume 500.0 Blood Gas Low PEEP Setting 8.0 Blood Gas Notified Whom JLD Blood Gas Notified Time 12/22/2016 10:32:21 AM Test 12/22/16 11:40 12/22/16 13:21 Lab Scanned Report REFERENCE LAB Bedside Glucose 128 Medications Medications Current Medications Insulin Glargine (Lantus) 33 unit DAILY@20 SC Last administered on 12/17/16 20 :51; Admin Dose 33 UNIT; Start 12/15/16 at 20:00 Ondansetron HCl (Zofran Inj) 4 mg Q6H PRN IV NAUSEA AND/OR VOMITING; Start at 13:00 Acetaminophen (Tylenol Tab) 650 mg Q6H PRN PO PAIN LEVEL 1-3 OR FEVER Last administered on 12/17/16 18:16; Admin Dose 650 MG; Start 12/15/16 at 13:00 Acetaminophen/ Hydrocodone Bitart ([place] (5/325)) 1 tab Q6H PRN PO PAIN LEVEL 4 -6 Last administered on 12/15/16 22:08; Admin Dose 1 TAB; Start 12/15/16 at 13: 00 Morphine Sulfate (morphine) 2 mg Q4H PRN IV PAIN LEVEL 7-10 Last administered on 12/20/16 19:57; Admin Dose 2 MG; Start 12/15/16 at 13:00 Magnesium Hydroxide (Milk Of Mag) 30 ml DAILY PRN PO CONSTIPATION; Start at 13:00 Bisacodyl (Dulcolax) 5 mg DAILY PRN PO CONSTIPATION; Start 12/15/16 at 13:00 Famotidine (Pepcid) 20 mg Q12 PO Last administered on 12/22/16 08:44; Admin Dose 20 MG; Start 12/15/16 at 21:00 Hydralazine HCl (Apresoline) 10 mg Q6H PRN IV SBP>160 Last administered on 12/22 11:52; Admin Dose 10 MG; Start 12/15/16 at 13:00 Aspirin (Aspirin) 325 mg DAILY PO Last administered on 12/22/16 08:45; Admin Dose 325 MG; Start 12/16/16 at 09:00 Atorvastatin Calcium 80 mg 80 mg QHS PO Last administered on 12/21/16 21:20; Admin Dose 80 MG; Start 12/15/16 at 21:00 Ceftriaxone Sodium (Rocephin) 50 ml @ 100 mls/hr Q24H IVPB Last administered on 12/22/16 14:24; Admin Dose 100 MLS/HR; Start 12/15/16 at 15:00 Heparin Sodium (Porcine) (Heparin (5000 Units/0.5 ml)) 5,000 unit BID SC Last administered on 12/22/16 08:47; Admin Dose 5,000 UNIT; Start 12/15/16 at 21:00 Miscellaneous Information 1 ea NOTE XX ; Start 12/15/16 at 14:00 Glucose (Glutose) 15 gm Q15M PRN PO DECREASED GLUCOSE; Start 12/15/16 at 14:00 Glucose (Glutose) 22.5 gm Q15M PRN PO DECREASED GLUCOSE; Start 12/15/16 at 14: 00 Dextrose (D50w Syringe) 25 ml Q15M PRN IV DECREASED GLUCOSE; Start 12/15/16 at 14:00 Dextrose (D50w Syringe) 50 ml Q15M PRN IV DECREASED GLUCOSE; Start 12/15/16 at 14:00 Glucagon (Glucagen) 1 mg Q15M PRN IM DECREASED GLUCOSE; Start 12/15/16 at 14:00 Glucose (Glutose) 15 gm Q15M PRN BUCCAL DECREASED GLUCOSE; Start 12/15/16 at 14 :00 Hydralazine HCl (Apresoline) 25 mg Q8 PO Last administered on 12/22/16 13:26; Admin Dose 25 MG; Start 12/15/16 at 22:00 Cholecalciferol 1000 unit 1,000 unit DAILY PO Last administered on 12/22/16 08 :45; Admin Dose 1,000 UNIT; Start 12/16/16 at 09:00 Fentanyl 100 ml @ 2.5 mls/hr TITRATE IV Last administered on 12/22/16 08:46; Admin Dose 10 MLS/HR; Start 12/18/16 at 03:30 Levofloxacin/ Dextrose (Levaquin 250 Mg/ D5W 50 ml (Pmx)) 50 ml @ 50 mls/hr Q24H IVPB Last administered on 12/22/16 13:40; Admin Dose 50 MLS/HR; Start at 14:00 Dextrose (D50w Syringe) 25 ml Q15M PRN IV Till BS 80 mg/dL or above x2; Start 12/18/16 at 14:00 Dextrose (D50w Syringe) 50 ml Q15M PRN IV Till BS 80 mg/dL or above x2; Start 12/18/16 at 14:00 IV Flush 10 ml 10 ml PRN PRN IV IV PROTOCOL; Start 12/18/16 at 17:00 Norepinephrine 32 mg/Dextrose 250 ml @ 0.46 mls/hr TITRATE IV ; Start 12/19/16 at 09:30 Methylprednisolone Sodium Succinate 250 mg/Sodium Chloride 50 ml @ 100 mls/hr BID IV Last administered on 12/22/16 08:44; Admin Dose 100 MLS/HR; Start 12/19 at 21:00 Potassium Chloride/Sodium Chloride (1/2 NS + KCl 20 Meq) 1,000 ml @ 20 mls/hr Q24H IV Last administered on 12/22/16 07:38; Admin Dose 50 MLS/HR; Start 12/20 at 08:30 Amlodipine Besylate 5 mg 5 mg DAILY PO Last administered on 12/22/16 08:45; Admin Dose 5 MG; Start 12/21/16 at 09:00 Midazolam HCl 50 ml @ 1 mls/hr TITRATE IV Last administered on 12/22/16 13:26 ; Admin Dose 10 MLS/HR; Start 12/20/16 at 14:00 Propofol (Diprivan) 100 ml @ 3.255 mls/ hr Q12H IV Last administered on t 13:25; Admin Dose 19.53 MLS/HR; Start 12/20/16 at 20:30 Hydralazine HCl (Apresoline) 10 mg Q4H PRN IV sbp > 160; Start 12/22/16 at 06: 30 Insulin Aspart (Novolog Insulin Pen) (Adult SC Insulin - Mild Algorithm)... Q6 SC ; Start 12/22/16 at 12:30 MAGDALENO SIMMONS NP Dec 22, 2016 14:48
[2016-12-22] MEDS: INSULIN GLARGINE [LANtus] 3 ML PEN SC SCH (21:07)
[2016-12-22] MEDS: ATORVASTATIN 80 MG TAB PO SCH (21:35)
[2016-12-22] MEDS: morphine 2 MG INJ IV PRN (22:51)
[2016-12-23] VITALS (44 sets, daily range): BP systolic 124–142; BP diastolic 65–81; PULSE 51–76; RESP 24
[2016-12-23] MEDS: PROPOFOL 100 ML IV SCH ×7 (00:58→22:13)
[2016-12-23] MEDS: Insulin NOVOLOG SS MILD Algorithm (NPO/TPN/ENTERAL FEEDS) SC SCH (01:03)
[2016-12-23] MEDS: LEVALBUTEROL (HFA) 15 GM INHALER INH SCH ×4 (01:13→19:22)
[2016-12-23] MEDS: MIDAZOLAM (DRIP) 50 mg/50 mL 50 ML IV SCH ×5 (01:25→23:20)
[2016-12-23] MEDS ORDERED: ACCU-CHEK XX SCH (02:00)
[2016-12-23] MEDS ORDERED: INSULIN ASPART [NOVOLOG] 3 ML PEN SC ONE ×2 (02:00→06:00)
[2016-12-23] MEDS: morphine 2 MG INJ IV PRN (02:40)
[2016-12-23] MEDS: FUROSEMIDE 40 MG INJ IV SCH ×2 (05:43→18:15)
[2016-12-23] MEDS: INSULIN ASPART [NOVOLOG] 3 ML PEN SC SCH ×5 (06:00→18:19)
[2016-12-23] MEDS: FENTAnyl (DRIP) 1000 mcg/100mL 100 ML IV SCH ×3 (06:26→17:04)
[2016-12-23 07:03] LABS: ADD SCAN DIFF NO
[2016-12-23 07:22] LABS: ABNORMAL IP MESSAGE 1; BASOPHILS % 0.1 % (0.0-2.0); HEMOGLOBIN 10.9 g/dl (14.0-18.0); LYMPHOCYTES # 0.5 10^3/ul (0.8-2.9); LYMPHOCYTES % 4.2 % (15.0-51.0); MEAN CORPUSCULAR HEMOGLOBIN 27.5 pg (29.0-33.0); MEAN CORPUSCULAR HGB CONC 31.1 g/dl (32.0-37.0); MEAN CORPUSCULAR VOLUME 88.2 fl (82.0-101.0); MEAN PLATELET VOLUME 12.1 fl (7.4-10.4); MONOCYTE # 0.7 10^3/ul (0.3-0.9); MONOCYTES % 5.9 % (0.0-11.0); NEUTROPHIL # 9.8 10^3/ul (1.6-7.5); PLATELET COUNT 289 10^3/UL (140-415); RED BLOOD COUNT 3.97 10^6/ul (4.70-6.10); RED CELL DISTRIBUTION WIDTH 13.6 % (11.5-14.5); WHITE BLOOD COUNT 11.5 10^3/ul (4.8-10.8)
[2016-12-23 07:38] LABS: POTASSIUM 3.6 mmol/L (3.5-5.1)
[2016-12-23 07:41] LABS: CREATININE 2.24 mg/dl (0.61-1.24)
[2016-12-23 07:42] LABS: CALCIUM 7.5 mg/dl (8.4-10.2); MAGNESIUM 2.4 mg/dl (1.7-2.5); PHOSPHORUS 5.6 mg/dl (2.5-4.9)
[2016-12-23] MEDS: SEVELAMER CARBONATE 2.4 GM PKT PO SCH ×3 (07:54→17:05)
--- NOTE | 2016-12-23 08:16 | CONS ---
Date/Time of Note Date/Time of Note DATE: 12/23/16 TIME: 08:13 Assessment/Plan Assessment/Plan Additional Assessment/Plan Chest x-ray from today is pending. Ventilator setting; AC of 24, tidal volume 500, PEEP of 8, 75% FiO2. Next Patient is on fentanyl drip 100 mics per hour, Versed 10 mg/h, propofol 40 mcg/ min. Assessment recommendations; next 1. Patient admitted for acute respiratory failure as well as acute renal failure. 2. 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 3. Possibly superimposed pneumonia. 4. Extreme agitation whenever sedation dose is decreased. This is posing a challenge in getting the patient off ventilator. Continue current treatment. Once the chest x-rays done I will reviewe it and make further recommendations. Consultation Date/Type/Reason Admit Date/Time Dec 15, 2016 at 11:20 Type of Consultation: Pulmonary/critical care Referring Provider: LEXII REED 24 HR Interval Summary Free Text/Dictation Patient condition remains critical. Still requiring high FiO2 for O2 saturation maintenance. Also requiring high-dose sedation because of extreme agitation whenever sedation dose is reduced. Patient however has remained hemodynamically stable, remains in atrial fibrillation with controlled rate. General exam; young male, orally intubated, sedated. Currently in no distress. Exam/Review of Systems Vital Signs Vitals Vital Signs Date Time Temp Pulse Resp B/P Pulse Ox O2 Delivery O2 Flow Rate FiO2 12/23/16 07:23 55 24 99 75 12/23/16 06:00 129/68 Mechanical Ventilator 12/23/16 04:00 98.3 Intake and Output 12/22/16 12/22/16 12/23/16 15:00 23:00 07:00 Intake Total 1077.5 ml 1034.0225 ml 987.85 ml Output Total 1370 ml 810 ml 800 ml Balance -292.5 ml 224.0225 ml 187.85 ml Exam HEENT exam is; supple neck, no JVD. No lymphadenopathy. Midline trachea. No thyromegaly. Orally intubated. No neck masses. Pupils are small bilaterally. Patient has fair dentition. Chest examination; diminished but clear breath sounds. S1-S2 audible, no murmurs. Irregular rhythm. Abdomen examination; soft, protuberant. Bowel sounds audible. No organomegaly. Extremity examination; no peripheral edema. Pulses 1+ bilaterally. RN CRITICAL CARE examination; patient is sedated. Results Result Diagram: 12/23/16 0630 12/23/16 0630 Results 24 hrs Laboratory Tests Test 12/22/16 09:13 12/22/16 10:43 12/22/16 11:40 12/22/16 13:21 Blood Gas Specimen Source Blood arterial Arterial Blood Date Drawn 12/22/2016 10:10:14 AM Arterial Blood pH (Temp corrected) 7.444 Arterial Blood pCO2 (Temp correct) 34.4 L Arterial Blood pO2 (Temp corrected) 70.6 L Arterial Blood HCO3 23.1 Arterial Blood Base Excess -0.5 Arterial Blood Oxygen Saturation 93.6 L Leobardo Test N/A Arterial Blood Gas Puncture Site LB Arterial Blood Carboxyhemoglobin 0.3 Arterial Blood Methemoglobin 0.4 Blood Gas A-a O2 Differential 427.6 H Oxyhemoglobin Percent 92.9 L Total Hemoglobin 12.2 Blood Gas Temperature 37.0 Blood Gas Respiration Rate 24.0 Blood Gas Actual Respiration Rate 24 Blood Gas Modality VENT - AC FiO2 75.0 Blood Gas Tidal Volume 500.0 Blood Gas Low PEEP Setting 8.0 Blood Gas Notified Whom JLD Blood Gas Notified Time 12/22/2016 10:32:21 AM Bedside Glucose 107 128 Lab Scanned Report REFERENCE LAB Test 12/22/16 17:30 12/22/16 21:06 12/23/16 00:57 12/23/16 01:41 Bedside Glucose 167 252 H 279 H 301 H Test 12/23/16 05:24 12/23/16 06:30 Bedside Glucose 290 H White Blood Count 11.5 H Red Blood Count 3.97 L Hemoglobin 10.9 L Hematocrit 35.0 L Mean Corpuscular Volume 88.2 Mean Corpuscular Hemoglobin 27.5 L Mean Corpuscular Hemoglobin Concent 31.1 L Red Cell Distribution Width 13.6 Platelet Count 289 Mean Platelet Volume 12.1 H Neutrophils % 85.0 H Lymphocytes % 4.2 L Monocytes % 5.9 Eosinophils % 0.0 Basophils % 0.1 Nucleated Red Blood Cells % 0.0 Neutrophils # 9.8 H Lymphocytes # 0.5 L Monocytes # 0.7 Eosinophils # 0.0 Basophils # 0.0 Nucleated Red Blood Cells # 0.0 Sodium Level 142 Potassium Level 3.6 Chloride Level 110 Carbon Dioxide Level 25 Anion Gap 11 Blood Urea Nitrogen 72 H Creatinine 2.24 H Glucose Level 300 #H Calcium Level 7.5 L Phosphorus Level 5.6 H Magnesium Level 2.4 Medications Medications Current Medications Insulin Glargine (Lantus) 33 unit DAILY@20 SC Last administered on 12/22/16 21 :07; Admin Dose 33 UNIT; Start 12/15/16 at 20:00 Ondansetron HCl (Zofran Inj) 4 mg Q6H PRN IV NAUSEA AND/OR VOMITING; Start at 13:00 Acetaminophen (Tylenol Tab) 650 mg Q6H PRN PO PAIN LEVEL 1-3 OR FEVER Last administered on 12/17/16 18:16; Admin Dose 650 MG; Start 12/15/16 at 13:00 Acetaminophen/ Hydrocodone Bitart ([place] (5/325)) 1 tab Q6H PRN PO PAIN LEVEL 4 -6 Last administered on 12/15/16 22:08; Admin Dose 1 TAB; Start 12/15/16 at 13: 00 Morphine Sulfate (morphine) 2 mg Q4H PRN IV PAIN LEVEL 7-10 Last administered on 12/23/16 02:40; Admin Dose 2 MG; Start 12/15/16 at 13:00 Magnesium Hydroxide (Milk Of Mag) 30 ml DAILY PRN PO CONSTIPATION; Start at 13:00 Bisacodyl (Dulcolax) 5 mg DAILY PRN PO CONSTIPATION; Start 12/15/16 at 13:00 Famotidine (Pepcid) 20 mg Q12 PO Last administered on 12/22/16 21:35; Admin Dose 20 MG; Start 12/15/16 at 21:00 Hydralazine HCl (Apresoline) 10 mg Q6H PRN IV SBP>160 Last administered on 12/22 19:39; Admin Dose 10 MG; Start 12/15/16 at 13:00 Aspirin (Aspirin) 325 mg DAILY PO Last administered on 12/22/16 08:45; Admin Dose 325 MG; Start 12/16/16 at 09:00 Atorvastatin Calcium 80 mg 80 mg QHS PO Last administered on 12/22/16 21:35; Admin Dose 80 MG; Start 12/15/16 at 21:00 Ceftriaxone Sodium (Rocephin) 50 ml @ 100 mls/hr Q24H IVPB Last administered on 12/22/16 14:24; Admin Dose 100 MLS/HR; Start 12/15/16 at 15:00 Heparin Sodium (Porcine) (Heparin (5000 Units/0.5 ml)) 5,000 unit BID SC Last administered on 12/22/16 21:35; Admin Dose 5,000 UNIT; Start 12/15/16 at 21:00 Miscellaneous Information 1 ea NOTE XX ; Start 12/15/16 at 14:00 Glucose (Glutose) 15 gm Q15M PRN PO DECREASED GLUCOSE; Start 12/15/16 at 14:00 Glucose (Glutose) 22.5 gm Q15M PRN PO DECREASED GLUCOSE; Start 12/15/16 at 14: 00 Glucagon (Glucagen) 1 mg Q15M PRN IM DECREASED GLUCOSE; Start 12/15/16 at 14:00 Glucose (Glutose) 15 gm Q15M PRN BUCCAL DECREASED GLUCOSE; Start 12/15/16 at 14 :00 Hydralazine HCl (Apresoline) 25 mg Q8 PO Last administered on 12/23/16 06:08; Admin Dose 25 MG; Start 12/15/16 at 22:00 Cholecalciferol 1000 unit 1,000 unit DAILY PO Last administered on 12/22/16 08 :45; Admin Dose 1,000 UNIT; Start 12/16/16 at 09:00 Fentanyl 100 ml @ 2.5 mls/hr TITRATE IV Last administered on 12/23/16 06:26; Admin Dose 10 MLS/HR; Start 12/18/16 at 03:30 Levofloxacin/ Dextrose (Levaquin 250 Mg/ D5W 50 ml (Pmx)) 50 ml @ 50 mls/hr Q24H IVPB Last administered on 12/22/16 13:40; Admin Dose 50 MLS/HR; Start at 14:00 Dextrose (D50w Syringe) 25 ml Q15M PRN IV Till BS 80 mg/dL or above x2; Start 12/18/16 at 14:00 Dextrose (D50w Syringe) 50 ml Q15M PRN IV Till BS 80 mg/dL or above x2; Start 12/18/16 at 14:00 IV Flush 10 ml 10 ml PRN PRN IV IV PROTOCOL; Start 12/18/16 at 17:00 Norepinephrine 32 mg/Dextrose 250 ml @ 0.46 mls/hr TITRATE IV ; Start 12/19/16 at 09:30 Methylprednisolone Sodium Succinate 250 mg/Sodium Chloride 50 ml @ 100 mls/hr BID IV Last administered on 12/22/16 22:11; Admin Dose 100 MLS/HR; Start 12/19 at 21:00 Potassium Chloride/Sodium Chloride (1/2 NS + KCl 20 Meq) 1,000 ml @ 20 mls/hr Q24H IV Last administered on 12/22/16 07:38; Admin Dose 50 MLS/HR; Start 12/20 at 08:30 Amlodipine Besylate 5 mg 5 mg DAILY PO Last administered on 12/22/16 08:45; Admin Dose 5 MG; Start 12/21/16 at 09:00 Midazolam HCl 50 ml @ 1 mls/hr TITRATE IV Last administered on 12/23/16 07:19 ; Admin Dose 10 MLS/HR; Start 12/20/16 at 14:00 Propofol (Diprivan) 100 ml @ 3.255 mls/ hr Q12H IV Last administered on 06:27; Admin Dose 26.04 MLS/HR; Start 12/20/16 at 20:30 Hydralazine HCl (Apresoline) 10 mg Q4H PRN IV sbp > 160; Start 12/22/16 at 06: 30 Insulin Aspart (Novolog Insulin Pen) NOVOLOG *MODERATE* ALGORI... Q6 SC ; Start 12/23/16 at 06:00 JESS STALLINGS Dec 23, 2016 08:16
[2016-12-23] MEDS: AMLODIPINE 5 MG TAB PO SCH (08:48)
[2016-12-23] MEDS: ASPIRIN 325 MG TAB PO SCH (08:48)
[2016-12-23] MEDS: CHOLECALCIFEROL 1,000 UNIT TAB PO SCH (08:48)
[2016-12-23] MEDS: FAMOTIDINE 20 MG TAB PO SCH ×2 (08:48→20:07)
[2016-12-23] MEDS: HEPARIN 5,000 UNIT/0.5 ML VIAL SC SCH ×2 (08:50→20:13)
--- NOTE | 2016-12-23 08:59 | CONS ---
Date/Time of Note Date/Time of Note DATE: 12/23/16 TIME: 08:58 Consult Date/Type/Reason Admit Date/Time Dec 15, 2016 at 11:20 Initial Consult Date Type of Consultation: nephrology Ordering Provider: LEXII REED pt. seen and examined. good uop. vent setting reviewed. on heavy iv sedation. d/w dr. Piña pe: General: morbidly obese, no agitation seen. sedated, no s/s of distress Eyes: pupils equal round Neck: no obvious jvd Cardiac: remains regular rate Pulmonary: no wheezing/rhonchi GI: Soft nontender Extremities: Minimal edema bilateral lower extremity still Skin: Noted with left great toe amputation. Minimal bilateral lower extremity edema unchanged Neurologic: intubated And sedated Objective Vital Signs Date Time Temp Pulse Resp B/P Pulse Ox O2 Delivery O2 Flow Rate FiO2 12/23/16 08:00 75 12/23/16 07:23 55 24 99 12/23/16 06:00 129/68 Mechanical Ventilator 12/23/16 04:00 98.3 Intake and Output 12/22/16 12/22/16 12/23/16 15:00 23:00 07:00 Intake Total 1077.5 ml 1034.0225 ml 987.85 ml Output Total 1370 ml 810 ml 800 ml Balance -292.5 ml 224.0225 ml 187.85 ml Results/Medications Result Diagram: 12/23/16 0630 12/23/16 0630 Results 24 hrs Laboratory Tests Test 12/22/16 09:13 12/22/16 10:43 12/22/16 11:40 12/22/16 13:21 Blood Gas Specimen Source Blood arterial Arterial Blood Date Drawn 12/22/2016 10:10:14 AM Arterial Blood pH (Temp corrected) 7.444 Arterial Blood pCO2 (Temp correct) 34.4 L Arterial Blood pO2 (Temp corrected) 70.6 L Arterial Blood HCO3 23.1 Arterial Blood Base Excess -0.5 Arterial Blood Oxygen Saturation 93.6 L Leobardo Test N/A Arterial Blood Gas Puncture Site LB Arterial Blood Carboxyhemoglobin 0.3 Arterial Blood Methemoglobin 0.4 Blood Gas A-a O2 Differential 427.6 H Oxyhemoglobin Percent 92.9 L Total Hemoglobin 12.2 Blood Gas Temperature 37.0 Blood Gas Respiration Rate 24.0 Blood Gas Actual Respiration Rate 24 Blood Gas Modality VENT - AC FiO2 75.0 Blood Gas Tidal Volume 500.0 Blood Gas Low PEEP Setting 8.0 Blood Gas Notified Whom JLD Blood Gas Notified Time 12/22/2016 10:32:21 AM Bedside Glucose 107 128 Lab Scanned Report REFERENCE LAB Test 12/22/16 17:30 12/22/16 21:06 12/23/16 00:57 12/23/16 01:41 Bedside Glucose 167 252 H 279 H 301 H Test 12/23/16 05:24 12/23/16 06:30 Bedside Glucose 290 H White Blood Count 11.5 H Red Blood Count 3.97 L Hemoglobin 10.9 L Hematocrit 35.0 L Mean Corpuscular Volume 88.2 Mean Corpuscular Hemoglobin 27.5 L Mean Corpuscular Hemoglobin Concent 31.1 L Red Cell Distribution Width 13.6 Platelet Count 289 Mean Platelet Volume 12.1 H Neutrophils % 85.0 H Lymphocytes % 4.2 L Monocytes % 5.9 Eosinophils % 0.0 Basophils % 0.1 Nucleated Red Blood Cells % 0.0 Neutrophils # 9.8 H Lymphocytes # 0.5 L Monocytes # 0.7 Eosinophils # 0.0 Basophils # 0.0 Nucleated Red Blood Cells # 0.0 Sodium Level 142 Potassium Level 3.6 Chloride Level 110 Carbon Dioxide Level 25 Anion Gap 11 Blood Urea Nitrogen 72 H Creatinine 2.24 H Glucose Level 300 #H Calcium Level 7.5 L Phosphorus Level 5.6 H Magnesium Level 2.4 Medications Current Medications Insulin Glargine (Lantus) 33 unit DAILY@20 SC Last administered on 12/22/16 21 :07; Admin Dose 33 UNIT; Start 12/15/16 at 20:00 Ondansetron HCl (Zofran Inj) 4 mg Q6H PRN IV NAUSEA AND/OR VOMITING; Start at 13:00 Acetaminophen (Tylenol Tab) 650 mg Q6H PRN PO PAIN LEVEL 1-3 OR FEVER Last administered on 12/17/16 18:16; Admin Dose 650 MG; Start 12/15/16 at 13:00 Acetaminophen/ Hydrocodone Bitart ([place] (5/325)) 1 tab Q6H PRN PO PAIN LEVEL 4 -6 Last administered on 12/15/16 22:08; Admin Dose 1 TAB; Start 12/15/16 at 13: 00 Morphine Sulfate (morphine) 2 mg Q4H PRN IV PAIN LEVEL 7-10 Last administered on 12/23/16 02:40; Admin Dose 2 MG; Start 12/15/16 at 13:00 Magnesium Hydroxide (Milk Of Mag) 30 ml DAILY PRN PO CONSTIPATION; Start at 13:00 Bisacodyl (Dulcolax) 5 mg DAILY PRN PO CONSTIPATION; Start 12/15/16 at 13:00 Famotidine (Pepcid) 20 mg Q12 PO Last administered on 12/23/16 08:48; Admin Dose 20 MG; Start 12/15/16 at 21:00 Hydralazine HCl (Apresoline) 10 mg Q6H PRN IV SBP>160 Last administered on 12/22 19:39; Admin Dose 10 MG; Start 12/15/16 at 13:00 Aspirin (Aspirin) 325 mg DAILY PO Last administered on 12/23/16 08:48; Admin Dose 325 MG; Start 12/16/16 at 09:00 Atorvastatin Calcium 80 mg 80 mg QHS PO Last administered on 12/22/16 21:35; Admin Dose 80 MG; Start 12/15/16 at 21:00 Ceftriaxone Sodium (Rocephin) 50 ml @ 100 mls/hr Q24H IVPB Last administered on 12/22/16 14:24; Admin Dose 100 MLS/HR; Start 12/15/16 at 15:00 Heparin Sodium (Porcine) (Heparin (5000 Units/0.5 ml)) 5,000 unit BID SC Last administered on 12/23/16 08:50; Admin Dose 5,000 UNIT; Start 12/15/16 at 21:00 Miscellaneous Information 1 ea NOTE XX ; Start 12/15/16 at 14:00 Glucose (Glutose) 15 gm Q15M PRN PO DECREASED GLUCOSE; Start 12/15/16 at 14:00 Glucose (Glutose) 22.5 gm Q15M PRN PO DECREASED GLUCOSE; Start 12/15/16 at 14: 00 Glucagon (Glucagen) 1 mg Q15M PRN IM DECREASED GLUCOSE; Start 12/15/16 at 14:00 Glucose (Glutose) 15 gm Q15M PRN BUCCAL DECREASED GLUCOSE; Start 12/15/16 at 14 :00 Hydralazine HCl (Apresoline) 25 mg Q8 PO Last administered on 12/23/16 06:08; Admin Dose 25 MG; Start 12/15/16 at 22:00 Cholecalciferol 1000 unit 1,000 unit DAILY PO Last administered on 12/23/16 08 :48; Admin Dose 1,000 UNIT; Start 12/16/16 at 09:00 Fentanyl 100 ml @ 2.5 mls/hr TITRATE IV Last administered on 12/23/16 06:26; Admin Dose 10 MLS/HR; Start 12/18/16 at 03:30 Levofloxacin/ Dextrose (Levaquin 250 Mg/ D5W 50 ml (Pmx)) 50 ml @ 50 mls/hr Q24H IVPB Last administered on 12/22/16 13:40; Admin Dose 50 MLS/HR; Start at 14:00 Dextrose (D50w Syringe) 25 ml Q15M PRN IV Till BS 80 mg/dL or above x2; Start 12/18/16 at 14:00 Dextrose (D50w Syringe) 50 ml Q15M PRN IV Till BS 80 mg/dL or above x2; Start 12/18/16 at 14:00 IV Flush 10 ml 10 ml PRN PRN IV IV PROTOCOL; Start 12/18/16 at 17:00 Norepinephrine 32 mg/Dextrose 250 ml @ 0.46 mls/hr TITRATE IV ; Start 12/19/16 at 09:30 Methylprednisolone Sodium Succinate 250 mg/Sodium Chloride 50 ml @ 100 mls/hr BID IV Last administered on 12/22/16 22:11; Admin Dose 100 MLS/HR; Start 12/19 at 21:00 Potassium Chloride/Sodium Chloride (1/2 NS + KCl 20 Meq) 1,000 ml @ 20 mls/hr Q24H IV Last administered on 12/22/16 07:38; Admin Dose 50 MLS/HR; Start 12/20 at 08:30 Amlodipine Besylate 5 mg 5 mg DAILY PO Last administered on 12/23/16 08:48; Admin Dose 5 MG; Start 12/21/16 at 09:00 Midazolam HCl 50 ml @ 1 mls/hr TITRATE IV Last administered on 12/23/16 07:19 ; Admin Dose 10 MLS/HR; Start 12/20/16 at 14:00 Propofol (Diprivan) 100 ml @ 3.255 mls/ hr Q12H IV Last administered on t 06:27; Admin Dose 26.04 MLS/HR; Start 12/20/16 at 20:30 Hydralazine HCl (Apresoline) 10 mg Q4H PRN IV sbp > 160; Start 12/22/16 at 06: 30 Insulin Aspart (Novolog Insulin Pen) NOVOLOG *MODERATE* ALGORI... Q6 SC ; Start 12/23/16 at 06:00 Assessment/Plan Chief Complaint/Hosp Course 1. Nonoliguric acute kidney injury with a previous baseline creatinine of 1.0 mg/dL. Etiology of acute kidney injury is secondary to acute tubular necrosis due to septic acute kidney injury and ischemic hypoperfusion and shock. The patient appears to be entering maintenance phase of acute tubular necrosis, as renal function has stabilized in the last 48 hours. At this point continue the current treatment plan, supportive care, renally dose all meds. 2. Volume overload. Etiology is secondary to acute kidney injury. The patient is currently tolerating diuretic therapy well. Will continue Lasix 40 mg b.i.d. Will lower the rate of IV fluids, monitor closely. Monitor electrolytes closely. 4. Mineral bone disorder. Continue to monitor calcium and phosphorus levels. 5. Hypokalemia. Continue to monitor and replete as needed. 6. Anemia. Continue to monitor hemoglobin and hematocrit levels. 7. Ventilatory-dependent respiratory failure. Etiology is secondary to pneumonia. The patient's vent settings and ABGs are reviewed. Continue to monitor. Follow up with pulmonary. 8. Sepsis, status post shock. The patient is currently on antibiotic therapy. Will continue. 9. Non-ST elevation myocardial infarction. Continue the current medical management. 10. Diabetes. Continue the current insulin regimen. 11. History of polysubstance abuse. 12. Encephalopathy. No change. 13. Hypertension. Etiology is in part due to increased intravascular volume. Continue diuretic therapy. Continue the current blood pressure regimen and monitor closely. 14. Elevated troponin. Possible non-ST elevation myocardial infarction type 2. Continue medical management. Problems: PARAMJIT MONTES MD Dec 23, 2016 08:59
[2016-12-23] MEDS: METHYLPRED NA SUCC IV SCH ×2 (10:04→20:07)
[2016-12-23] MEDS: SOD CHLORIDE 0.9% IV SCH ×2 (10:04→20:07)
--- NOTE | 2016-12-23 11:13 | CONS ---
Date/Time of Note Date/Time of Note DATE: 12/23/16 TIME: 11:10 Assessment/Plan Assessment/Plan Chief Complaint/Hosp Course IMPRESSION: 1. Positive troponin, assess significance.-no sig uptrend 2. Abnormal electrocardiogram with ST depressions with tachycardia and positive troponin, likely indicative of coronary artery disease.-improved ecg findings with improved HR 3. Hypertension, uncontrolled mildly still 4. Dyslipidemia. 5. Diabetes mellitus. 6. Fevers to 104 documented here in the hospital.-now defervesed 7. Renal failure.-acute on chronic 8. Lower extremity edema, assess for congestive heart failure. 9. Hypokalemia. 10. Nausea and vomiting. 11. Chest pain with cough. 12.Resp failure s/p intubation 14. Bradycardia-to 40's.Most recently in 50's Recc: -Tele -serial ecg's -Continue asa/statin -Continue abx's and f/u cx data -Continue bronchodilators and steroids. -Follow volume status closely -Continue to Hold coreg due to bradycardia -Continue hydralazine/norvasc Problems: Consultation Date/Type/Reason Admit Date/Time Dec 15, 2016 at 11:20 Initial Consult Date 12/15/2016 Type of Consultation: Cardiology Reason for Consultation positive troponin Referring Provider: LEXII REED Exam/Review of Systems Vital Signs Vitals Vital Signs Date Time Temp Pulse Resp B/P Pulse Ox O2 Delivery O2 Flow Rate FiO2 12/23/16 09:00 55 24 128/73 100 Mechanical Ventilator 12/23/16 08:30 98.0 12/23/16 08:00 75 Intake and Output 12/22/16 12/22/16 12/23/16 15:00 23:00 07:00 Intake Total 1077.5 ml 1034.0225 ml 987.85 ml Output Total 1370 ml 810 ml 800 ml Balance -292.5 ml 224.0225 ml 187.85 ml Exam Review of Systems: CONSTITUTIONAL: No fevers, chills. PULMONARY: intubated CARDIOVASCULAR: No obvious chest pain/palpitations GASTROINTESTINAL: No nausea/vomiting. GENITOURINARY: No hematuria/dysuria. MUSCULOSKELETAL: No obvious myagias/arthalgias. PSYCHIATRIC: No documented depression. NEUROLOGIC: sedated Constitutional: alert, oriented Psych: no complaints Head: normocephalic ENMT: intubated, mucosa pink and moist Neck: supple Respiratory: other (upper airway rhocherous sounds) Cardiovascular: regular rate and rhythm Gastrointestinal: non-tender, soft Musculoskeletal: muscle tone (normal) Extremities: edema (trace/B) Neurological: other (sedated) Results Result Diagram: 12/23/16 0630 12/23/16 0630 Results 24 hrs Laboratory Tests Test 12/22/16 11:40 12/22/16 13:21 12/22/16 17:30 12/22/16 21:06 Lab Scanned Report REFERENCE LAB Bedside Glucose 128 167 252 H Test 12/23/16 00:57 12/23/16 01:41 12/23/16 05:24 12/23/16 06:30 Bedside Glucose 279 H 301 H 290 H White Blood Count 11.5 H Red Blood Count 3.97 L Hemoglobin 10.9 L Hematocrit 35.0 L Mean Corpuscular Volume 88.2 Mean Corpuscular Hemoglobin 27.5 L Mean Corpuscular Hemoglobin Concent 31.1 L Red Cell Distribution Width 13.6 Platelet Count 289 Mean Platelet Volume 12.1 H Neutrophils % 85.0 H Lymphocytes % 4.2 L Monocytes % 5.9 Eosinophils % 0.0 Basophils % 0.1 Nucleated Red Blood Cells % 0.0 Neutrophils # 9.8 H Lymphocytes # 0.5 L Monocytes # 0.7 Eosinophils # 0.0 Basophils # 0.0 Nucleated Red Blood Cells # 0.0 Sodium Level 142 Potassium Level 3.6 Chloride Level 110 Carbon Dioxide Level 25 Anion Gap 11 Blood Urea Nitrogen 72 H Creatinine 2.24 H Glucose Level 300 #H Calcium Level 7.5 L Phosphorus Level 5.6 H Magnesium Level 2.4 Test 12/23/16 09:01 Bedside Glucose 314 H Medications Medications Current Medications Ondansetron HCl (Zofran Inj) 4 mg Q6H PRN IV NAUSEA AND/OR VOMITING; Start at 13:00 Acetaminophen (Tylenol Tab) 650 mg Q6H PRN PO PAIN LEVEL 1-3 OR FEVER Last administered on 12/17/16 18:16; Admin Dose 650 MG; Start 12/15/16 at 13:00 Acetaminophen/ Hydrocodone Bitart ([place] (5/325)) 1 tab Q6H PRN PO PAIN LEVEL 4 -6 Last administered on 12/15/16 22:08; Admin Dose 1 TAB; Start 12/15/16 at 13: 00 Morphine Sulfate (morphine) 2 mg Q4H PRN IV PAIN LEVEL 7-10 Last administered on 12/23/16 02:40; Admin Dose 2 MG; Start 12/15/16 at 13:00 Magnesium Hydroxide (Milk Of Mag) 30 ml DAILY PRN PO CONSTIPATION; Start at 13:00 Bisacodyl (Dulcolax) 5 mg DAILY PRN PO CONSTIPATION; Start 12/15/16 at 13:00 Famotidine (Pepcid) 20 mg Q12 PO Last administered on 12/23/16 08:48; Admin Dose 20 MG; Start 12/15/16 at 21:00 Hydralazine HCl (Apresoline) 10 mg Q6H PRN IV SBP>160 Last administered on 12/22 19:39; Admin Dose 10 MG; Start 12/15/16 at 13:00 Aspirin (Aspirin) 325 mg DAILY PO Last administered on 12/23/16 08:48; Admin Dose 325 MG; Start 12/16/16 at 09:00 Atorvastatin Calcium 80 mg 80 mg QHS PO Last administered on 12/22/16 21:35; Admin Dose 80 MG; Start 12/15/16 at 21:00 Ceftriaxone Sodium (Rocephin) 50 ml @ 100 mls/hr Q24H IVPB Last administered on 12/22/16 14:24; Admin Dose 100 MLS/HR; Start 12/15/16 at 15:00 Heparin Sodium (Porcine) (Heparin (5000 Units/0.5 ml)) 5,000 unit BID SC Last administered on 12/23/16 08:50; Admin Dose 5,000 UNIT; Start 12/15/16 at 21:00 Miscellaneous Information 1 ea NOTE XX ; Start 12/15/16 at 14:00 Glucose (Glutose) 15 gm Q15M PRN PO DECREASED GLUCOSE; Start 12/15/16 at 14:00 Glucose (Glutose) 22.5 gm Q15M PRN PO DECREASED GLUCOSE; Start 12/15/16 at 14: 00 Glucagon (Glucagen) 1 mg Q15M PRN IM DECREASED GLUCOSE; Start 12/15/16 at 14:00 Glucose (Glutose) 15 gm Q15M PRN BUCCAL DECREASED GLUCOSE; Start 12/15/16 at 14 :00 Hydralazine HCl (Apresoline) 25 mg Q8 PO Last administered on 12/23/16 06:08; Admin Dose 25 MG; Start 12/15/16 at 22:00 Cholecalciferol 1000 unit 1,000 unit DAILY PO Last administered on 12/23/16 08 :48; Admin Dose 1,000 UNIT; Start 12/16/16 at 09:00 Fentanyl 100 ml @ 2.5 mls/hr TITRATE IV Last administered on 12/23/16 06:26; Admin Dose 10 MLS/HR; Start 12/18/16 at 03:30 Levofloxacin/ Dextrose (Levaquin 250 Mg/ D5W 50 ml (Pmx)) 50 ml @ 50 mls/hr Q24H IVPB Last administered on 12/22/16 13:40; Admin Dose 50 MLS/HR; Start at 14:00 Dextrose (D50w Syringe) 25 ml Q15M PRN IV Till BS 80 mg/dL or above x2; Start 12/18/16 at 14:00 Dextrose (D50w Syringe) 50 ml Q15M PRN IV Till BS 80 mg/dL or above x2; Start 12/18/16 at 14:00 IV Flush 10 ml 10 ml PRN PRN IV IV PROTOCOL; Start 12/18/16 at 17:00 Norepinephrine 32 mg/Dextrose 250 ml @ 0.46 mls/hr TITRATE IV ; Start 12/19/16 at 09:30 Methylprednisolone Sodium Succinate 250 mg/Sodium Chloride 50 ml @ 100 mls/hr BID IV Last administered on 12/23/16 10:04; Admin Dose 100 MLS/HR; Start 12/19 at 21:00 Potassium Chloride/Sodium Chloride (1/2 NS + KCl 20 Meq) 1,000 ml @ 20 mls/hr Q24H IV Last administered on 12/22/16 07:38; Admin Dose 50 MLS/HR; Start 12/20 at 08:30 Amlodipine Besylate 5 mg 5 mg DAILY PO Last administered on 12/23/16 08:48; Admin Dose 5 MG; Start 12/21/16 at 09:00 Midazolam HCl 50 ml @ 1 mls/hr TITRATE IV Last administered on 12/23/16 07:19 ; Admin Dose 10 MLS/HR; Start 12/20/16 at 14:00 Propofol (Diprivan) 100 ml @ 3.255 mls/ hr Q12H IV Last administered on 10:39; Admin Dose 26.04 MLS/HR; Start 12/20/16 at 20:30 Hydralazine HCl (Apresoline) 10 mg Q4H PRN IV sbp > 160; Start 12/22/16 at 06: 30 Insulin Aspart (Novolog Insulin Pen) NOVOLOG *MODERATE* ALGORI... Q6 SC Last administered on 12/23/16 09:04; Admin Dose 10 UNIT; Start 12/23/16 at 06:00 Insulin Glargine (Lantus) 40 unit DAILY@20 SC ; Start 12/23/16 at 20:00 VI ADAMES Dec 23, 2016 11:13
[2016-12-23 11:29] LABS: Allen Test ACCEPTAB; Arterial Base Excess -0.6 mmol/L (-3.0-3); Arterial COHb 0.3 % (0.0-3.0); Arterial HCO3 24.3 mmol/L (22.0-26.0); Arterial MetHb 0.5 % (0.0-1.5); Arterial Total Hemglobin 12.6 g/dl (12.0-18.0); MODE VENT - AC
[2016-12-23] MEDS ORDERED: SOD CHLORIDE 0.9% IV SCH (12:18)
[2016-12-23] MEDS ORDERED: METHYLPRED NA SUCC IV SCH (12:18)
--- NOTE | 2016-12-23 13:31 | PN ---
Date/Time of Note Date/Time of Note DATE: 12/23/16 TIME: 13:28 Assessment/Plan VTE Prophylaxis VTE Prophylaxis Intervention: heparin Lines/Catheters IV Catheter Type (from Nrs): PICC Line Central line still needed: Yes Urinary Cath still in place: Yes Reason Cath still needed: other (indicate) (monitor I&O) Assessment/Plan Chief Complaint/Hosp Course Assessment and plan 1. Sepsis secondary to underlying committee acquired pneumonia. Noted with underlying septic shock. Continue on antibiotics. Continue with ID recommendations. await for clinical improvement. off vasopressors at this time . cont vent liberation as tolerated. check f/u abg and cxr 2. Acute hypoxic respiratory failure. Likely secondary to underlying pneumonia. Of note patient was intubated on 12/18/2016. Continue with breathing treatments. Continue with pole setter recommendations. Patient also with suspect granulomatosis with polyangiitis versus microscopic polyangiitis. Money Market Dealer (Dr. Brady) to follow 3. Elevated troponins. Likely type II. Is in the setting of sepsis as well as acute renal insufficiency. Continue with cardiology recommendations. Continue telemetry monitoring. stable at present. 4. Acute kidney injury. Medications to renally dose. Likely from ATN. medications renally dosed. continue with nephrology recs 5. Type 2 diabetes. Continue insulin regimen. Will adjust as needed. stable at present 6. Dyslipidemia. continue on statin 7. Essential hypertension. on antihypertensives and adjust as needed 8. Morbid obesity. Weight reduction to be advised once patient more alert and oriented DVT prophylaxis: Heparin GERD prophylaxis: H2 lo Disposition and plan: Money Market Dealer to follow. Await recommendations. Continue vent liberation as tolerated. Discussed plan of care with Dr. Payan Critical Care time : 30 minutes Problems: Subjective 24 Hr Interval Summary Free Text/Dictation Intubated. Constipation. Family at bedside Exam/Review of Systems Vital Signs Vitals Vital Signs Date Time Temp Pulse Resp B/P Pulse Ox O2 Delivery O2 Flow Rate FiO2 12/23/16 13:22 58 24 100 75 12/23/16 12:00 97.6 133/70 Mechanical Ventilator Intake and Output 12/22/16 12/22/16 12/23/16 15:00 23:00 07:00 Intake Total 1077.5 ml 1034.0225 ml 987.85 ml Output Total 1370 ml 810 ml 800 ml Balance -292.5 ml 224.0225 ml 187.85 ml Exam Constitutional: other (intubated and sedated) Head: normocephalic Neck: No jvd Respiratory: other (diminished lung bases) Cardiovascular: other (regular rate) Gastrointestinal: other (protuberant soft nontender) Musculoskeletal: swelling (bilateral lower and upper extremities) Neurological: other (intubated and sedated) Results Result Diagram: 12/23/16 0630 12/23/16 0630 Results 24 hrs Laboratory Tests Test 12/22/16 17:30 12/22/16 21:06 12/23/16 00:57 12/23/16 01:41 Bedside Glucose 167 252 H 279 H 301 H Test 12/23/16 05:24 12/23/16 06:30 12/23/16 07:43 12/23/16 09:01 Bedside Glucose 290 H 314 H White Blood Count 11.5 H Red Blood Count 3.97 L Hemoglobin 10.9 L Hematocrit 35.0 L Mean Corpuscular Volume 88.2 Mean Corpuscular Hemoglobin 27.5 L Mean Corpuscular Hemoglobin Concent 31.1 L Red Cell Distribution Width 13.6 Platelet Count 289 Mean Platelet Volume 12.1 H Neutrophils % 85.0 H Lymphocytes % 4.2 L Monocytes % 5.9 Eosinophils % 0.0 Basophils % 0.1 Nucleated Red Blood Cells % 0.0 Neutrophils # 9.8 H Lymphocytes # 0.5 L Monocytes # 0.7 Eosinophils # 0.0 Basophils # 0.0 Nucleated Red Blood Cells # 0.0 Sodium Level 142 Potassium Level 3.6 Chloride Level 110 Carbon Dioxide Level 25 Anion Gap 11 Blood Urea Nitrogen 72 H Creatinine 2.24 H Glucose Level 300 #H Calcium Level 7.5 L Phosphorus Level 5.6 H Magnesium Level 2.4 Blood Gas Specimen Source Blood arterial Arterial Blood Date Drawn 12/23/2016 8:00:32 AM Arterial Blood pH (Temp corrected) 7.390 Arterial Blood pCO2 (Temp correct) 41.1 Arterial Blood pO2 (Temp corrected) 81.1 Arterial Blood HCO3 24.3 Arterial Blood Base Excess -0.6 Arterial Blood Oxygen Saturation 94.8 L Leobardo Test ACCEPTAB Arterial Blood Gas Puncture Site Right Radial Arterial Blood Carboxyhemoglobin 0.3 Arterial Blood Methemoglobin 0.5 Blood Gas A-a O2 Differential 410.0 H Oxyhemoglobin Percent 94.0 Total Hemoglobin 12.6 Blood Gas Temperature 37.0 Blood Gas Respiration Rate 24.0 Blood Gas Actual Respiration Rate 24 Blood Gas Modality VENT - AC FiO2 75.0 Blood Gas Tidal Volume 500.0 Blood Gas Low PEEP Setting 8.0 Blood Gas Notified Whom CW Blood Gas Notified Time 12/23/2016 8:28:50 AM Medications Medications Current Medications Ondansetron HCl (Zofran Inj) 4 mg Q6H PRN IV NAUSEA AND/OR VOMITING; Start at 13:00 Acetaminophen (Tylenol Tab) 650 mg Q6H PRN PO PAIN LEVEL 1-3 OR FEVER Last administered on 12/17/16 18:16; Admin Dose 650 MG; Start 12/15/16 at 13:00 Acetaminophen/ Hydrocodone Bitart ([place] (5/325)) 1 tab Q6H PRN PO PAIN LEVEL 4 -6 Last administered on 12/15/16 22:08; Admin Dose 1 TAB; Start 12/15/16 at 13: 00 Morphine Sulfate (morphine) 2 mg Q4H PRN IV PAIN LEVEL 7-10 Last administered on 12/23/16 02:40; Admin Dose 2 MG; Start 12/15/16 at 13:00 Magnesium Hydroxide (Milk Of Mag) 30 ml DAILY PRN PO CONSTIPATION; Start at 13:00 Bisacodyl (Dulcolax) 5 mg DAILY PRN PO CONSTIPATION; Start 12/15/16 at 13:00 Famotidine (Pepcid) 20 mg Q12 PO Last administered on 12/23/16 08:48; Admin Dose 20 MG; Start 12/15/16 at 21:00 Hydralazine HCl (Apresoline) 10 mg Q6H PRN IV SBP>160 Last administered on 12/22 19:39; Admin Dose 10 MG; Start 12/15/16 at 13:00 Aspirin (Aspirin) 325 mg DAILY PO Last administered on 12/23/16 08:48; Admin Dose 325 MG; Start 12/16/16 at 09:00 Atorvastatin Calcium 80 mg 80 mg QHS PO Last administered on 12/22/16 21:35; Admin Dose 80 MG; Start 12/15/16 at 21:00 Ceftriaxone Sodium (Rocephin) 50 ml @ 100 mls/hr Q24H IVPB Last administered on 12/22/16 14:24; Admin Dose 100 MLS/HR; Start 12/15/16 at 15:00 Heparin Sodium (Porcine) (Heparin (5000 Units/0.5 ml)) 5,000 unit BID SC Last administered on 12/23/16 08:50; Admin Dose 5,000 UNIT; Start 12/15/16 at 21:00 Miscellaneous Information 1 ea NOTE XX ; Start 12/15/16 at 14:00 Glucose (Glutose) 15 gm Q15M PRN PO DECREASED GLUCOSE; Start 12/15/16 at 14:00 Glucose (Glutose) 22.5 gm Q15M PRN PO DECREASED GLUCOSE; Start 12/15/16 at 14: 00 Glucagon (Glucagen) 1 mg Q15M PRN IM DECREASED GLUCOSE; Start 12/15/16 at 14:00 Glucose (Glutose) 15 gm Q15M PRN BUCCAL DECREASED GLUCOSE; Start 12/15/16 at 14 :00 Hydralazine HCl (Apresoline) 25 mg Q8 PO Last administered on 12/23/16 06:08; Admin Dose 25 MG; Start 12/15/16 at 22:00 Cholecalciferol 1000 unit 1,000 unit DAILY PO Last administered on 12/23/16 08 :48; Admin Dose 1,000 UNIT; Start 12/16/16 at 09:00 Fentanyl 100 ml @ 2.5 mls/hr TITRATE IV Last administered on 12/23/16 06:26; Admin Dose 10 MLS/HR; Start 12/18/16 at 03:30 Levofloxacin/ Dextrose (Levaquin 250 Mg/ D5W 50 ml (Pmx)) 50 ml @ 50 mls/hr Q24H IVPB Last administered on 12/22/16 13:40; Admin Dose 50 MLS/HR; Start at 14:00 Dextrose (D50w Syringe) 25 ml Q15M PRN IV Till BS 80 mg/dL or above x2; Start 12/18/16 at 14:00 Dextrose (D50w Syringe) 50 ml Q15M PRN IV Till BS 80 mg/dL or above x2; Start 12/18/16 at 14:00 IV Flush 10 ml 10 ml PRN PRN IV IV PROTOCOL; Start 12/18/16 at 17:00 Norepinephrine 32 mg/Dextrose 250 ml @ 0.46 mls/hr TITRATE IV ; Start 12/19/16 at 09:30 Potassium Chloride/Sodium Chloride (1/2 NS + KCl 20 Meq) 1,000 ml @ 20 mls/hr Q24H IV Last administered on 12/22/16 07:38; Admin Dose 50 MLS/HR; Start 12/20 at 08:30 Amlodipine Besylate 5 mg 5 mg DAILY PO Last administered on 12/23/16 08:48; Admin Dose 5 MG; Start 12/21/16 at 09:00 Midazolam HCl 50 ml @ 1 mls/hr TITRATE IV Last administered on 12/23/16 12:33 ; Admin Dose 10 MLS/HR; Start 12/20/16 at 14:00 Propofol (Diprivan) 100 ml @ 3.255 mls/ hr Q12H IV Last administered on 10:39; Admin Dose 26.04 MLS/HR; Start 12/20/16 at 20:30 Hydralazine HCl (Apresoline) 10 mg Q4H PRN IV sbp > 160; Start 12/22/16 at 06: 30 Insulin Aspart (Novolog Insulin Pen) NOVOLOG *MODERATE* ALGORI... Q6 SC Last administered on 12/23/16 09:04; Admin Dose 10 UNIT; Start 12/23/16 at 06:00 Insulin Glargine 40 unit 40 unit DAILY@20 SC ; Start 12/23/16 at 20:00 Methylprednisolone Sodium Succinate/ Sodium Chloride (Solu-Medrol/NS) 50 ml @ 100 mls/hr BID IV ; Start 12/23/16 at 21:00 BREANA MORALES Dec 23, 2016 13:31
[2016-12-23] MEDS: LEVOFLOXACIN 250MG/D5W (PMX) 50 ML IVPB SCH (14:07)
[2016-12-23] MEDS: CEFTRIAXONE 1 GM/50 ML (PMX) 50 ML IVPB SCH (14:08)
--- NOTE | 2016-12-23 18:52 | RADRPT ---
PROCEDURE: XR Chest. CLINICAL INDICATION: Shortness of breath. TECHNIQUE: Single frontal view. COMPARISON: 12/21/2016. FINDINGS: The endotracheal tube, nasogastric tube, and left arm PICC line remain in satisfactory position. Mi ld pulmonary edema is unchanged. The lungs are otherwise clear. The heart is mildly enlarged. There is no right pleural effusion. There is a small left pleural effusion. There is no pneumothorax. IMPRESSION: 1. No change from 12/21/2016. RPTAT: QQ .Chon Carcamo MD, MD Date Time Electronically viewed and signed by .Chon Carcamo MD, MD on 12/23/2016 18:51 .R/
--- NOTE | 2016-12-23 18:59 | CONS ---
Date/Time of Note Date/Time of Note DATE: 12/23/16 TIME: 18:57 Assessment/Plan Assessment/Plan Chief Complaint/Hosp Course ID PROGRESS NOTE TOTAL ABX DAY # 8 => Ceftriaxone #8 + Levaquin #6 + Azith #3 s/p Intubated early am 12/18/16 NEW LAB RESULTS: (+)Cocaine, (+)Mycoplasma PNA IgG, A1c 14.6, (-)Cocci, (-) Crypto 24H INTERVAL SUMMARY * No new issues, orally intubated on the vent, in treatment for CAP, s/p NSTEMI PHYSICAL EXAMINATION: GENERAL: -> Morbid obese M, noncommunicative, orally intubated on the Vent, no fevers HEENT: ETT/OGT secure NECK: Supple, trach-> midline CHEST: Equal chest rise bilaterally, without dyspnea on observation / Vented HEART: Pulse RRR - NSR on tele ABDOMEN: Soft, obese EXTREMITIES: Warm w/generalized dependent edema SKIN: Warm, dry ID ASSESSMENT: 41 yo Morbid Obese M (+)Cocaine screen on admission seen in ICU today with : 1. Sepsis secondary to underlying community-acquired pneumonia, hypotension, acute encephalopathy, DKA * DDx Opportunistic vs cryptogenic organizing pneumonia * SEROLOGIES: (+)Mycoplasma PNA IgG, (-)Cocci, (-)Crypto * DDx ?Silent Aspiration PNA - risk factors obesity ?CHRISTINE ? GERD 2. Acute hypoxic respiratory failure=>Intubated early am 12/18 * PNA (+) * Pulmonary HTN per CT ?COPD * ?Obesity hypoventilation syndrome 3. Elevated troponins. Most probably a type 2 event from underlying sepsis and underlying acute kidney injury. 4. Acute kidney injury. 5. DKA - Type 2 diabetes mellitus.->A1c @ 14.6 6. Dyslipidemia. Continue statins. 7. Essential hypertension. . 8. Microcytic, hypochromic anemia (-) MRSA Nares (-)HIV Screen INVASIVES: * PIV ABX ALLERGIES: Vanco IV CURRENT ABX: TOTAL ABX DAY # 8 => Ceftriaxone #8 + Levaquin #6 DC Azith 12/18 ID RECOMMENDATIONS: 1.Continue ABX - Patient on adequate coverage for Atypical PNA, received Azith x 3 days-> to complete 14 day ABX course with Levaquin * , (+)Mycoplasma PNA 2.47 IgG (prior exposure vs current) 2.. Continue vent support, per pulmonary . Problems: Consultation Date/Type/Reason Admit Date/Time Dec 15, 2016 at 11:20 Type of Consultation: ID Referring Provider: LEXII REED Exam/Review of Systems Vital Signs Vitals Vital Signs Date Time Temp Pulse Resp B/P Pulse Ox O2 Delivery O2 Flow Rate FiO2 12/23/16 18:00 53 24 142/81 99 Mechanical Ventilator 12/23/16 17:15 65 12/23/16 16:00 98.4 Intake and Output 12/22/16 12/22/16 12/23/16 15:00 23:00 07:00 Intake Total 1077.5 ml 1034.0225 ml 987.85 ml Output Total 1370 ml 810 ml 800 ml Balance -292.5 ml 224.0225 ml 187.85 ml Results Result Diagram: 12/23/16 0630 12/23/16 0630 Results 24 hrs Laboratory Tests Test 12/22/16 21:06 12/23/16 00:57 12/23/16 01:41 12/23/16 05:24 Bedside Glucose 252 H 279 H 301 H 290 H Test 12/23/16 06:30 12/23/16 07:43 12/23/16 09:01 12/23/16 18:14 White Blood Count 11.5 H Red Blood Count 3.97 L Hemoglobin 10.9 L Hematocrit 35.0 L Mean Corpuscular Volume 88.2 Mean Corpuscular Hemoglobin 27.5 L Mean Corpuscular Hemoglobin Concent 31.1 L Red Cell Distribution Width 13.6 Platelet Count 289 Mean Platelet Volume 12.1 H Neutrophils % 85.0 H Lymphocytes % 4.2 L Monocytes % 5.9 Eosinophils % 0.0 Basophils % 0.1 Nucleated Red Blood Cells % 0.0 Neutrophils # 9.8 H Lymphocytes # 0.5 L Monocytes # 0.7 Eosinophils # 0.0 Basophils # 0.0 Nucleated Red Blood Cells # 0.0 Sodium Level 142 Potassium Level 3.6 Chloride Level 110 Carbon Dioxide Level 25 Anion Gap 11 Blood Urea Nitrogen 72 H Creatinine 2.24 H Glucose Level 300 #H Calcium Level 7.5 L Phosphorus Level 5.6 H Magnesium Level 2.4 Blood Gas Specimen Source Blood arterial Arterial Blood Date Drawn 12/23/2016 8:00:32 AM Arterial Blood pH (Temp corrected) 7.390 Arterial Blood pCO2 (Temp correct) 41.1 Arterial Blood pO2 (Temp corrected) 81.1 Arterial Blood HCO3 24.3 Arterial Blood Base Excess -0.6 Arterial Blood Oxygen Saturation 94.8 L Leobardo Test ACCEPTAB Arterial Blood Gas Puncture Site Right Radial Arterial Blood Carboxyhemoglobin 0.3 Arterial Blood Methemoglobin 0.5 Blood Gas A-a O2 Differential 410.0 H Oxyhemoglobin Percent 94.0 Total Hemoglobin 12.6 Blood Gas Temperature 37.0 Blood Gas Respiration Rate 24.0 Blood Gas Actual Respiration Rate 24 Blood Gas Modality VENT - AC FiO2 75.0 Blood Gas Tidal Volume 500.0 Blood Gas Low PEEP Setting 8.0 Blood Gas Notified Whom CW Blood Gas Notified Time 12/23/2016 8:28:50 AM Bedside Glucose 314 H 217 Medications Medications Current Medications Ondansetron HCl (Zofran Inj) 4 mg Q6H PRN IV NAUSEA AND/OR VOMITING; Start at 13:00 Acetaminophen (Tylenol Tab) 650 mg Q6H PRN PO PAIN LEVEL 1-3 OR FEVER Last administered on 12/17/16 18:16; Admin Dose 650 MG; Start 12/15/16 at 13:00 Acetaminophen/ Hydrocodone Bitart ([place] (5/325)) 1 tab Q6H PRN PO PAIN LEVEL 4 -6 Last administered on 12/15/16 22:08; Admin Dose 1 TAB; Start 12/15/16 at 13: 00 Morphine Sulfate (morphine) 2 mg Q4H PRN IV PAIN LEVEL 7-10 Last administered on 12/23/16 02:40; Admin Dose 2 MG; Start 12/15/16 at 13:00 Magnesium Hydroxide (Milk Of Mag) 30 ml DAILY PRN PO CONSTIPATION; Start at 13:00 Bisacodyl (Dulcolax) 5 mg DAILY PRN PO CONSTIPATION; Start 12/15/16 at 13:00 Famotidine (Pepcid) 20 mg Q12 PO Last administered on 12/23/16 08:48; Admin Dose 20 MG; Start 12/15/16 at 21:00 Hydralazine HCl (Apresoline) 10 mg Q6H PRN IV SBP>160 Last administered on 12/22 19:39; Admin Dose 10 MG; Start 12/15/16 at 13:00 Aspirin (Aspirin) 325 mg DAILY PO Last administered on 12/23/16 08:48; Admin Dose 325 MG; Start 12/16/16 at 09:00 Atorvastatin Calcium 80 mg 80 mg QHS PO Last administered on 12/22/16 21:35; Admin Dose 80 MG; Start 12/15/16 at 21:00 Ceftriaxone Sodium (Rocephin) 50 ml @ 100 mls/hr Q24H IVPB Last administered on 12/23/16 14:08; Admin Dose 100 MLS/HR; Start 12/15/16 at 15:00 Heparin Sodium (Porcine) (Heparin (5000 Units/0.5 ml)) 5,000 unit BID SC Last administered on 12/23/16 08:50; Admin Dose 5,000 UNIT; Start 12/15/16 at 21:00 Miscellaneous Information 1 ea NOTE XX ; Start 12/15/16 at 14:00 Glucose (Glutose) 15 gm Q15M PRN PO DECREASED GLUCOSE; Start 12/15/16 at 14:00 Glucose (Glutose) 22.5 gm Q15M PRN PO DECREASED GLUCOSE; Start 12/15/16 at 14: 00 Glucagon (Glucagen) 1 mg Q15M PRN IM DECREASED GLUCOSE; Start 12/15/16 at 14:00 Glucose (Glutose) 15 gm Q15M PRN BUCCAL DECREASED GLUCOSE; Start 12/15/16 at 14 :00 Hydralazine HCl (Apresoline) 25 mg Q8 PO Last administered on 12/23/16 14:08; Admin Dose 25 MG; Start 12/15/16 at 22:00 Cholecalciferol 1000 unit 1,000 unit DAILY PO Last administered on 12/23/16 08 :48; Admin Dose 1,000 UNIT; Start 12/16/16 at 09:00 Fentanyl 100 ml @ 2.5 mls/hr TITRATE IV Last administered on 12/23/16 17:04; Admin Dose 10 MLS/HR; Start 12/18/16 at 03:30 Levofloxacin/ Dextrose (Levaquin 250 Mg/ D5W 50 ml (Pmx)) 50 ml @ 50 mls/hr Q24H IVPB Last administered on 12/23/16 14:07; Admin Dose 50 MLS/HR; Start at 14:00 Dextrose (D50w Syringe) 25 ml Q15M PRN IV Till BS 80 mg/dL or above x2; Start 12/18/16 at 14:00 Dextrose (D50w Syringe) 50 ml Q15M PRN IV Till BS 80 mg/dL or above x2; Start 12/18/16 at 14:00 IV Flush 10 ml 10 ml PRN PRN IV IV PROTOCOL; Start 12/18/16 at 17:00 Norepinephrine 32 mg/Dextrose 250 ml @ 0.46 mls/hr TITRATE IV ; Start 12/19/16 at 09:30 Potassium Chloride/Sodium Chloride (1/2 NS + KCl 20 Meq) 1,000 ml @ 20 mls/hr Q24H IV Last administered on 12/22/16 07:38; Admin Dose 50 MLS/HR; Start 12/20 at 08:30 Amlodipine Besylate 5 mg 5 mg DAILY PO Last administered on 12/23/16 08:48; Admin Dose 5 MG; Start 12/21/16 at 09:00 Midazolam HCl 50 ml @ 1 mls/hr TITRATE IV Last administered on 12/23/16 18:15 ; Admin Dose 10 MLS/HR; Start 12/20/16 at 14:00 Propofol (Diprivan) 100 ml @ 3.255 mls/ hr Q12H IV Last administered on 18:16; Admin Dose 26.04 MLS/HR; Start 12/20/16 at 20:30 Hydralazine HCl (Apresoline) 10 mg Q4H PRN IV sbp > 160; Start 12/22/16 at 06: 30 Insulin Aspart (Novolog Insulin Pen) NOVOLOG *MODERATE* ALGORI... Q6 SC Last administered on 12/23/16 18:19; Admin Dose 4 UNIT; Start 12/23/16 at 06:00 Insulin Glargine 40 unit 40 unit DAILY@20 SC ; Start 12/23/16 at 20:00 Methylprednisolone Sodium Succinate/ Sodium Chloride (Solu-Medrol/NS) 50 ml @ 100 mls/hr BID IV ; Start 12/23/16 at 21:00 MAGDALENO SIMMONS NP Dec 23, 2016 18:59
[2016-12-23] MEDS: INSULIN GLARGINE [LANtus] 3 ML PEN SC SCH (20:05)
[2016-12-23] MEDS: ATORVASTATIN 80 MG TAB PO SCH (20:07)
[2016-12-23] MEDS: 1/2 NS + KCL 20 MEQ 1,000 ML IV SCH (20:30)
[2016-12-24] VITALS (41 sets, daily range): BP systolic 125–185; BP diastolic 64–93; PULSE 54–104; RESP 24–28
[2016-12-24] MEDS: INSULIN ASPART [NOVOLOG] 3 ML PEN SC SCH ×8 (00:45→17:59)
[2016-12-24] MEDS: LEVALBUTEROL (HFA) 15 GM INHALER INH SCH ×4 (01:18→20:25)
[2016-12-24] MEDS: morphine 2 MG INJ IV PRN ×3 (01:36→22:32)
[2016-12-24] MEDS: PROPOFOL 100 ML IV SCH ×7 (02:26→23:56)
[2016-12-24] MEDS: MIDAZOLAM (DRIP) 50 mg/50 mL 50 ML IV SCH ×4 (02:29→19:36)
[2016-12-24] MEDS: FENTAnyl (DRIP) 1000 mcg/100mL 100 ML IV SCH ×3 (03:52→21:32)
[2016-12-24] MEDS: FUROSEMIDE 40 MG INJ IV SCH ×2 (05:13→17:55)
[2016-12-24 05:31] LABS: ADD SCAN DIFF NO
[2016-12-24 05:36] LABS: ABNORMAL IP MESSAGE 1; BASOPHILS % 0.3 % (0.0-2.0); EOSINOPHILS % 0.1 % (0.0-7.0); HEMATOCRIT 33.6 % (42.0-52.0); HEMOGLOBIN 10.7 g/dl (14.0-18.0); LYMPHOCYTES # 0.4 10^3/ul (0.8-2.9); LYMPHOCYTES % 3.4 % (15.0-51.0); MEAN CORPUSCULAR HEMOGLOBIN 27.4 pg (29.0-33.0); MEAN CORPUSCULAR HGB CONC 31.8 g/dl (32.0-37.0); MEAN CORPUSCULAR VOLUME 86.2 fl (82.0-101.0); MEAN PLATELET VOLUME 11.4 fl (7.4-10.4); MONOCYTE # 0.6 10^3/ul (0.3-0.9); MONOCYTES % 5.7 % (0.0-11.0); NEUTROPHIL # 8.9 10^3/ul (1.6-7.5); PLATELET COUNT 287 10^3/UL (140-415); RED CELL DISTRIBUTION WIDTH 13.3 % (11.5-14.5); WHITE BLOOD COUNT 10.5 10^3/ul (4.8-10.8)
[2016-12-24 05:54] LABS: POTASSIUM 3.7 mmol/L (3.5-5.1)
[2016-12-24 05:56] LABS: CREATININE 1.91 mg/dl (0.61-1.24)
[2016-12-24 05:57] LABS: CALCIUM 7.4 mg/dl (8.4-10.2)
[2016-12-24] MEDS: SEVELAMER CARBONATE 2.4 GM PKT PO SCH ×3 (07:58→17:55)
[2016-12-24] MEDS: ASPIRIN 325 MG TAB PO SCH (08:00)
[2016-12-24] MEDS: FAMOTIDINE 20 MG TAB PO SCH ×2 (08:00→20:36)
[2016-12-24] MEDS: AMLODIPINE 5 MG TAB PO SCH (08:00)
[2016-12-24] MEDS: CHOLECALCIFEROL 1,000 UNIT TAB PO SCH (08:00)
[2016-12-24] MEDS: HEPARIN 5,000 UNIT/0.5 ML VIAL SC SCH ×2 (08:01→22:19)
--- NOTE | 2016-12-24 08:01 | CONS ---
Date/Time of Note Date/Time of Note DATE: 12/24/16 TIME: 07:58 Consult Date/Type/Reason Admit Date/Time Dec 15, 2016 at 11:20 Type of Consultation: nephrology Ordering Provider: LEXII REED pt. seen and examined on vent good uop. no new events pe: Constitutional: other (intubated and sedated) Head: normocephalic Neck: No jvd Respiratory: other (diminished lung bases) Cardiovascular: other (regular rate) Gastrointestinal: other (protuberant soft nontender) Musculoskeletal: swelling (bilateral lower and upper extremities) Neurological: other (intubated and sedated) Objective Vital Signs Date Time Temp Pulse Resp B/P Pulse Ox O2 Delivery O2 Flow Rate FiO2 12/24/16 07:02 63 24 99 60 12/24/16 06:00 125/64 Mechanical Ventilator 12/24/16 04:00 98.2 Intake and Output 12/23/16 12/23/16 12/24/16 15:00 23:00 07:00 Intake Total 1398 ml 1298.5 ml 1038.555 ml Output Total 470 ml 1155 ml 1125 ml Balance 928 ml 143.5 ml -86.445 ml Results/Medications Result Diagram: 12/24/16 0430 12/24/16 0430 Results 24 hrs Laboratory Tests Test 12/23/16 09:01 12/23/16 18:14 12/23/16 20:01 12/24/16 00:40 Bedside Glucose 314 H 217 218 171 Test 12/24/16 04:30 12/24/16 05:12 12/24/16 07:56 White Blood Count 10.5 Red Blood Count 3.90 L Hemoglobin 10.7 L Hematocrit 33.6 L Mean Corpuscular Volume 86.2 Mean Corpuscular Hemoglobin 27.4 L Mean Corpuscular Hemoglobin Concent 31.8 L Red Cell Distribution Width 13.3 Platelet Count 287 Mean Platelet Volume 11.4 H Neutrophils % 84.0 H Lymphocytes % 3.4 L Monocytes % 5.7 Eosinophils % 0.1 Basophils % 0.3 Nucleated Red Blood Cells % 0.0 Neutrophils # 8.9 H Lymphocytes # 0.4 L Monocytes # 0.6 Eosinophils # 0.0 Basophils # 0.0 Nucleated Red Blood Cells # 0.0 Sodium Level 145 H Potassium Level 3.7 Chloride Level 111 H Carbon Dioxide Level 27 Anion Gap 11 Blood Urea Nitrogen 67 H Creatinine 1.91 H Glucose Level 197 # Calcium Level 7.4 L Bedside Glucose 174 188 Medications Current Medications Ondansetron HCl (Zofran Inj) 4 mg Q6H PRN IV NAUSEA AND/OR VOMITING; Start at 13:00 Acetaminophen (Tylenol Tab) 650 mg Q6H PRN PO PAIN LEVEL 1-3 OR FEVER Last administered on 12/17/16 18:16; Admin Dose 650 MG; Start 12/15/16 at 13:00 Acetaminophen/ Hydrocodone Bitart ([place] (5/325)) 1 tab Q6H PRN PO PAIN LEVEL 4 -6 Last administered on 12/15/16 22:08; Admin Dose 1 TAB; Start 12/15/16 at 13: 00 Morphine Sulfate (morphine) 2 mg Q4H PRN IV PAIN LEVEL 7-10 Last administered on 12/24/16 01:36; Admin Dose 2 MG; Start 12/15/16 at 13:00 Magnesium Hydroxide (Milk Of Mag) 30 ml DAILY PRN PO CONSTIPATION; Start at 13:00 Bisacodyl (Dulcolax) 5 mg DAILY PRN PO CONSTIPATION; Start 12/15/16 at 13:00 Famotidine (Pepcid) 20 mg Q12 PO Last administered on 12/23/16 20:07; Admin Dose 20 MG; Start 12/15/16 at 21:00 Hydralazine HCl (Apresoline) 10 mg Q6H PRN IV SBP>160 Last administered on 12/22 19:39; Admin Dose 10 MG; Start 12/15/16 at 13:00 Aspirin (Aspirin) 325 mg DAILY PO Last administered on 12/23/16 08:48; Admin Dose 325 MG; Start 12/16/16 at 09:00 Atorvastatin Calcium 80 mg 80 mg QHS PO Last administered on 12/23/16 20:07; Admin Dose 80 MG; Start 12/15/16 at 21:00 Ceftriaxone Sodium (Rocephin) 50 ml @ 100 mls/hr Q24H IVPB Last administered on 12/23/16 14:08; Admin Dose 100 MLS/HR; Start 12/15/16 at 15:00 Heparin Sodium (Porcine) (Heparin (5000 Units/0.5 ml)) 5,000 unit BID SC Last administered on 12/23/16 20:13; Admin Dose 5,000 UNIT; Start 12/15/16 at 21:00 Miscellaneous Information 1 ea NOTE XX ; Start 12/15/16 at 14:00 Glucose (Glutose) 15 gm Q15M PRN PO DECREASED GLUCOSE; Start 12/15/16 at 14:00 Glucose (Glutose) 22.5 gm Q15M PRN PO DECREASED GLUCOSE; Start 12/15/16 at 14: 00 Glucagon (Glucagen) 1 mg Q15M PRN IM DECREASED GLUCOSE; Start 12/15/16 at 14:00 Glucose (Glutose) 15 gm Q15M PRN BUCCAL DECREASED GLUCOSE; Start 12/15/16 at 14 :00 Hydralazine HCl (Apresoline) 25 mg Q8 PO Last administered on 12/24/16 05:14; Admin Dose 25 MG; Start 12/15/16 at 22:00 Cholecalciferol 1000 unit 1,000 unit DAILY PO Last administered on 12/23/16 08 :48; Admin Dose 1,000 UNIT; Start 12/16/16 at 09:00 Fentanyl 100 ml @ 2.5 mls/hr TITRATE IV Last administered on 12/24/16 03:52; Admin Dose 10 MLS/HR; Start 12/18/16 at 03:30 Levofloxacin/ Dextrose (Levaquin 250 Mg/ D5W 50 ml (Pmx)) 50 ml @ 50 mls/hr Q24H IVPB Last administered on 12/23/16 14:07; Admin Dose 50 MLS/HR; Start at 14:00 Dextrose (D50w Syringe) 25 ml Q15M PRN IV Till BS 80 mg/dL or above x2; Start 12/18/16 at 14:00 Dextrose (D50w Syringe) 50 ml Q15M PRN IV Till BS 80 mg/dL or above x2; Start 12/18/16 at 14:00 IV Flush 10 ml 10 ml PRN PRN IV IV PROTOCOL; Start 12/18/16 at 17:00 Norepinephrine 32 mg/Dextrose 250 ml @ 0.46 mls/hr TITRATE IV ; Start 12/19/16 at 09:30 Potassium Chloride/Sodium Chloride (1/2 NS + KCl 20 Meq) 1,000 ml @ 20 mls/hr Q24H IV Last administered on 12/23/16 20:30; Admin Dose 20 MLS/HR; Start 12/20 at 08:30 Amlodipine Besylate 5 mg 5 mg DAILY PO Last administered on 12/23/16 08:48; Admin Dose 5 MG; Start 12/21/16 at 09:00 Midazolam HCl 50 ml @ 1 mls/hr TITRATE IV Last administered on 12/24/16 02:29 ; Admin Dose 10 MLS/HR; Start 12/20/16 at 14:00 Propofol (Diprivan) 100 ml @ 3.255 mls/ hr Q12H IV Last administered on 06:00; Admin Dose 32.55 MLS/HR; Start 12/20/16 at 20:30 Hydralazine HCl (Apresoline) 10 mg Q4H PRN IV sbp > 160; Start 12/22/16 at 06: 30 Insulin Aspart (Novolog Insulin Pen) NOVOLOG *MODERATE* ALGORI... Q6 SC Last administered on 12/24/16 05:16; Admin Dose 2 UNIT; Start 12/23/16 at 06:00 Insulin Glargine 40 unit 40 unit DAILY@20 SC Last administered on 12/23/16 20: 05; Admin Dose 40 UNIT; Start 12/23/16 at 20:00 Methylprednisolone Sodium Succinate/ Sodium Chloride (Solu-Medrol/NS) 50 ml @ 100 mls/hr BID IV Last administered on 12/23/16 20:07; Admin Dose 100 MLS/HR; Start 12/23/16 at 21:00 Assessment/Plan Chief Complaint/Hosp Course 1. Nonoliguric acute kidney injury with a previous baseline creatinine of 1.0 mg/dL. -sec to ATN from sepsis, low bp. - At this point continue the current treatment plan, supportive care, renally dose all meds. -ANCA neg, suyapa positive. -no sig proteinuria noted on previous ua. 2. Volume overload. Etiology is secondary to acute kidney injury. The patient is currently tolerating diuretic therapy well. Will continue Lasix 40 mg b.i.d. Will lower the rate of IV fluids, monitor closely. Monitor electrolytes closely. 4. Mineral bone disorder. Continue to monitor calcium and phosphorus levels. 5. Hypokalemia. Continue to monitor and replete as needed. 6. Anemia. Continue to monitor hemoglobin and hematocrit levels. 7. Ventilatory-dependent respiratory failure. Etiology is secondary to pneumonia. The patient's vent settings and ABGs are reviewed. Continue to monitor. Follow up with pulmonary. 8. Sepsis, status post shock. The patient is currently on antibiotic therapy. Will continue. 9. Non-ST elevation myocardial infarction. Continue the current medical management. 10. Diabetes. Continue the current insulin regimen. 11. History of polysubstance abuse. 12. Encephalopathy. No change. 13. Hypertension. Etiology is in part due to increased intravascular volume. Continue diuretic therapy. Continue the current blood pressure regimen and monitor closely. 14. Elevated troponin. Possible non-ST elevation myocardial infarction type 2. Continue medical management. Problems: PARAMJIT MONTES MD Dec 24, 2016 08:01
[2016-12-24] MEDS: SOD CHLORIDE 0.9% IV SCH ×3 (09:45→22:17)
[2016-12-24] MEDS: METHYLPRED NA SUCC IV SCH ×3 (09:45→22:17)
--- NOTE | 2016-12-24 10:20 | RADRPT ---
PROCEDURE: XR Abdomen. CLINICAL INDICATION: Orogastric tube placement TECHNIQUE: Two AP views of the abdomen were obtained COMPARISON: None. FINDINGS: The tip of the orogastric tube is within the gastric lumen. There is a nonobstructive bowel gas pattern. No abnormal soft tissue calcifications are seen. The v isualized portions of the lung bases are clear. The osseous structures are unremarkable. IMPRESSION: Orogastric tube tip in good position within the gastric lumen. RPTAT: HH .Meenu Javier MD, MD Date Time Electronically viewed and signed by .Meenu Javier MD, on 12/24/2016 10:20 .G/
[2016-12-24] MEDS: hydrALAzine 20 MG INJ IV PRN ×3 (10:36→22:35)
--- NOTE | 2016-12-24 10:58 | CONS ---
Date/Time of Note Date/Time of Note DATE: 12/24/16 TIME: 10:55 Assessment/Plan Assessment/Plan Chief Complaint/Hosp Course IMPRESSION: 1. Positive troponin, assess significance.-no sig uptrend 2. Abnormal electrocardiogram with ST depressions with tachycardia and positive troponin, likely indicative of coronary artery disease.-improved ecg findings with improved HR 3. Hypertension, uncontrolled mildly still 4. Dyslipidemia. 5. Diabetes mellitus. 6. Fevers to 104 documented here in the hospital.-now defervesed 7. Renal failure.-acute on chronic 8. Lower extremity edema, assess for congestive heart failure. 9. Hypokalemia. 10. Nausea and vomiting. 11. Chest pain with cough. 12.Resp failure s/p intubation 14. Bradycardia-to 40's.Most recently in 50's Recc: -Tele -serial ecg's -Continue asa/statin -Continue abx's and f/u cx data -Continue bronchodilators and steroids. -Follow volume status closely -Continue to Hold coreg due to bradycardia -Continue hydralazine/norvasc Problems: Consultation Date/Type/Reason Admit Date/Time Dec 15, 2016 at 11:20 Initial Consult Date 12/15/2016 Type of Consultation: Cardiology Reason for Consultation positive troponin Referring Provider: LEXII REED Exam/Review of Systems Vital Signs Vitals Vital Signs Date Time Temp Pulse Resp B/P Pulse Ox O2 Delivery O2 Flow Rate FiO2 12/24/16 09:00 59 24 98 60 12/24/16 06:00 125/64 Mechanical Ventilator 12/24/16 04:00 98.2 Intake and Output 12/23/16 12/23/16 12/24/16 15:00 23:00 07:00 Intake Total 1398 ml 1298.5 ml 1111.105 ml Output Total 470 ml 1155 ml 1125 ml Balance 928 ml 143.5 ml -13.895 ml Exam Review of Systems: CONSTITUTIONAL: No fevers, chills. PULMONARY: intubated CARDIOVASCULAR: No chest pain/palpitations GASTROINTESTINAL: No nausea/vomiting. GENITOURINARY: No hematuria/dysuria. MUSCULOSKELETAL: No obvious myagias/arthalgias. PSYCHIATRIC: No documented depression. NEUROLOGIC: No weakness Constitutional: alert Psych: no complaints Head: normocephalic ENMT: mucosa pink and moist Neck: jvd, supple Respiratory: diminished breath sounds Cardiovascular: regular rate and rhythm Gastrointestinal: soft Musculoskeletal: muscle tone Extremities: edema (none) Neurological: other (No focal deficits) Results Result Diagram: 12/24/16 0430 12/24/16 0430 Results 24 hrs Laboratory Tests Test 12/23/16 18:14 12/23/16 20:01 12/24/16 00:40 12/24/16 04:30 Bedside Glucose 217 218 171 White Blood Count 10.5 Red Blood Count 3.90 L Hemoglobin 10.7 L Hematocrit 33.6 L Mean Corpuscular Volume 86.2 Mean Corpuscular Hemoglobin 27.4 L Mean Corpuscular Hemoglobin Concent 31.8 L Red Cell Distribution Width 13.3 Platelet Count 287 Mean Platelet Volume 11.4 H Neutrophils % 84.0 H Lymphocytes % 3.4 L Monocytes % 5.7 Eosinophils % 0.1 Basophils % 0.3 Nucleated Red Blood Cells % 0.0 Neutrophils # 8.9 H Lymphocytes # 0.4 L Monocytes # 0.6 Eosinophils # 0.0 Basophils # 0.0 Nucleated Red Blood Cells # 0.0 Sodium Level 145 H Potassium Level 3.7 Chloride Level 111 H Carbon Dioxide Level 27 Anion Gap 11 Blood Urea Nitrogen 67 H Creatinine 1.91 H Glucose Level 197 # Calcium Level 7.4 L Test 12/24/16 05:12 12/24/16 07:56 Bedside Glucose 174 188 Medications Medications Current Medications Ondansetron HCl (Zofran Inj) 4 mg Q6H PRN IV NAUSEA AND/OR VOMITING; Start at 13:00 Acetaminophen (Tylenol Tab) 650 mg Q6H PRN PO PAIN LEVEL 1-3 OR FEVER Last administered on 12/17/16 18:16; Admin Dose 650 MG; Start 12/15/16 at 13:00 Acetaminophen/ Hydrocodone Bitart ([place] (5/325)) 1 tab Q6H PRN PO PAIN LEVEL 4 -6 Last administered on 12/15/16 22:08; Admin Dose 1 TAB; Start 12/15/16 at 13: 00 Morphine Sulfate (morphine) 2 mg Q4H PRN IV PAIN LEVEL 7-10 Last administered on 12/24/16 01:36; Admin Dose 2 MG; Start 12/15/16 at 13:00 Magnesium Hydroxide (Milk Of Mag) 30 ml DAILY PRN PO CONSTIPATION; Start at 13:00 Bisacodyl (Dulcolax) 5 mg DAILY PRN PO CONSTIPATION; Start 12/15/16 at 13:00 Famotidine (Pepcid) 20 mg Q12 PO Last administered on 12/24/16 08:00; Admin Dose 20 MG; Start 12/15/16 at 21:00 Hydralazine HCl (Apresoline) 10 mg Q6H PRN IV SBP>160 Last administered on 12/22 19:39; Admin Dose 10 MG; Start 12/15/16 at 13:00 Aspirin (Aspirin) 325 mg DAILY PO Last administered on 12/24/16 08:00; Admin Dose 325 MG; Start 12/16/16 at 09:00 Atorvastatin Calcium 80 mg 80 mg QHS PO Last administered on 12/23/16 20:07; Admin Dose 80 MG; Start 12/15/16 at 21:00 Ceftriaxone Sodium (Rocephin) 50 ml @ 100 mls/hr Q24H IVPB Last administered on 12/23/16 14:08; Admin Dose 100 MLS/HR; Start 12/15/16 at 15:00 Heparin Sodium (Porcine) (Heparin (5000 Units/0.5 ml)) 5,000 unit BID SC Last administered on 12/24/16 08:01; Admin Dose 5,000 UNIT; Start 12/15/16 at 21:00 Miscellaneous Information 1 ea NOTE XX ; Start 12/15/16 at 14:00 Glucose (Glutose) 15 gm Q15M PRN PO DECREASED GLUCOSE; Start 12/15/16 at 14:00 Glucose (Glutose) 22.5 gm Q15M PRN PO DECREASED GLUCOSE; Start 12/15/16 at 14: 00 Glucagon (Glucagen) 1 mg Q15M PRN IM DECREASED GLUCOSE; Start 12/15/16 at 14:00 Glucose (Glutose) 15 gm Q15M PRN BUCCAL DECREASED GLUCOSE; Start 12/15/16 at 14 :00 Hydralazine HCl (Apresoline) 25 mg Q8 PO Last administered on 12/24/16 05:14; Admin Dose 25 MG; Start 12/15/16 at 22:00 Cholecalciferol 1000 unit 1,000 unit DAILY PO Last administered on 12/24/16 08 :00; Admin Dose 1,000 UNIT; Start 12/16/16 at 09:00 Fentanyl 100 ml @ 2.5 mls/hr TITRATE IV Last administered on 12/24/16 03:52; Admin Dose 10 MLS/HR; Start 12/18/16 at 03:30 Levofloxacin/ Dextrose (Levaquin 250 Mg/ D5W 50 ml (Pmx)) 50 ml @ 50 mls/hr Q24H IVPB Last administered on 12/23/16 14:07; Admin Dose 50 MLS/HR; Start at 14:00 Dextrose (D50w Syringe) 25 ml Q15M PRN IV Till BS 80 mg/dL or above x2; Start 12/18/16 at 14:00 Dextrose (D50w Syringe) 50 ml Q15M PRN IV Till BS 80 mg/dL or above x2; Start 12/18/16 at 14:00 IV Flush 10 ml 10 ml PRN PRN IV IV PROTOCOL; Start 12/18/16 at 17:00 Norepinephrine 32 mg/Dextrose 250 ml @ 0.46 mls/hr TITRATE IV ; Start 12/19/16 at 09:30 Potassium Chloride/Sodium Chloride (1/2 NS + KCl 20 Meq) 1,000 ml @ 20 mls/hr Q24H IV Last administered on 12/23/16 20:30; Admin Dose 20 MLS/HR; Start 12/20 at 08:30 Amlodipine Besylate 5 mg 5 mg DAILY PO Last administered on 12/24/16 08:00; Admin Dose 5 MG; Start 12/21/16 at 09:00 Midazolam HCl 50 ml @ 1 mls/hr TITRATE IV Last administered on 12/24/16 07:57 ; Admin Dose 10 MLS/HR; Start 12/20/16 at 14:00 Propofol (Diprivan) 100 ml @ 3.255 mls/ hr Q12H IV Last administered on 09:00; Admin Dose 32.55 MLS/HR; Start 12/20/16 at 20:30 Hydralazine HCl (Apresoline) 10 mg Q4H PRN IV sbp > 160 Last administered on 10:36; Admin Dose 10 MG; Start 12/22/16 at 06:30 Insulin Aspart (Novolog Insulin Pen) NOVOLOG *MODERATE* ALGORI... Q6 SC Last administered on 12/24/16 05:16; Admin Dose 2 UNIT; Start 12/23/16 at 06:00 Insulin Glargine 40 unit 40 unit DAILY@20 SC Last administered on 12/23/16 20: 05; Admin Dose 40 UNIT; Start 12/23/16 at 20:00 Methylprednisolone Sodium Succinate/ Sodium Chloride (Solu-Medrol/NS) 50 ml @ 100 mls/hr BID IV Last administered on 12/23/16 20:07; Admin Dose 100 MLS/HR; Start 12/23/16 at 21:00 VI ADAMES Dec 24, 2016 10:58
--- NOTE | 2016-12-24 11:10 | CONS ---
Date/Time of Note Date/Time of Note DATE: 12/24/16 TIME: 11:06 Assessment/Plan Assessment/Plan Additional Assessment/Plan Chest x-ray was reviewed from yesterday evening which is again showing mild interstitial prominence without any interval change. Endotracheal tube is at an adequate level. Ventilator settings; AC of 24, tidal volume 500, PEEP of 8, 60% FiO2. Next Patient currently on propofol at 50 mics per kilogram per minute, fentanyl drip 100 mics per hour, Versed 10 mg/h. Assessment recommendations; next 1. Patient admitted for acute respiratory failure with acute renal failure. 2. Extreme agitation whenever patient is taken off sedation. 3. Improving serum creatinine. 4. Possibly atypical pneumonia possibly mycoplasma. 5. 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 Patient on high-dose pulse Solu- Medrol. Continue current treatment. Will obtain a blood gas. Once ABG is done, I will review it and make further recommendations. 35 minutes of critical care time was spent evaluating the patient. Consultation Date/Type/Reason Admit Date/Time Dec 15, 2016 at 11:20 Type of Consultation: Pulmonary/critical care Referring Provider: LEXII REED 24 HR Interval Summary Free Text/Dictation Patient condition remains critical. Still requiring sedation as well as full ventilator support. General exam; young male, orally intubated, sedated currently in no distress. Exam/Review of Systems Vital Signs Vitals Vital Signs Date Time Temp Pulse Resp B/P Pulse Ox O2 Delivery O2 Flow Rate FiO2 12/24/16 09:00 59 24 98 60 12/24/16 06:00 125/64 Mechanical Ventilator 12/24/16 04:00 98.2 Intake and Output 12/23/16 12/23/16 12/24/16 15:00 23:00 07:00 Intake Total 1398 ml 1298.5 ml 1111.105 ml Output Total 470 ml 1155 ml 1125 ml Balance 928 ml 143.5 ml -13.895 ml Exam HEENT exam is; supple neck, no JVD. No lymphadenopathy. Midline trachea. No thyromegaly. Orally intubated. Chest examination; diminished but clear vessel. S1-S2 audible, no murmurs. Regular rhythm. Abdomen examination; soft, protuberant. No organomegaly. Bowel sounds audible. Extremity examination; no peripheral edema. Pulses 1+ bilaterally. [employer] examination; patient is sedated. Results Result Diagram: 12/24/16 0430 12/24/16 0430 Results 24 hrs Laboratory Tests Test 12/23/16 18:14 12/23/16 20:01 12/24/16 00:40 12/24/16 04:30 Bedside Glucose 217 218 171 White Blood Count 10.5 Red Blood Count 3.90 L Hemoglobin 10.7 L Hematocrit 33.6 L Mean Corpuscular Volume 86.2 Mean Corpuscular Hemoglobin 27.4 L Mean Corpuscular Hemoglobin Concent 31.8 L Red Cell Distribution Width 13.3 Platelet Count 287 Mean Platelet Volume 11.4 H Neutrophils % 84.0 H Lymphocytes % 3.4 L Monocytes % 5.7 Eosinophils % 0.1 Basophils % 0.3 Nucleated Red Blood Cells % 0.0 Neutrophils # 8.9 H Lymphocytes # 0.4 L Monocytes # 0.6 Eosinophils # 0.0 Basophils # 0.0 Nucleated Red Blood Cells # 0.0 Sodium Level 145 H Potassium Level 3.7 Chloride Level 111 H Carbon Dioxide Level 27 Anion Gap 11 Blood Urea Nitrogen 67 H Creatinine 1.91 H Glucose Level 197 # Calcium Level 7.4 L Test 12/24/16 05:12 12/24/16 07:56 Bedside Glucose 174 188 Medications Medications Current Medications Ondansetron HCl (Zofran Inj) 4 mg Q6H PRN IV NAUSEA AND/OR VOMITING; Start at 13:00 Acetaminophen (Tylenol Tab) 650 mg Q6H PRN PO PAIN LEVEL 1-3 OR FEVER Last administered on 12/17/16 18:16; Admin Dose 650 MG; Start 12/15/16 at 13:00 Acetaminophen/ Hydrocodone Bitart ([place] (5/325)) 1 tab Q6H PRN PO PAIN LEVEL 4 -6 Last administered on 12/15/16 22:08; Admin Dose 1 TAB; Start 12/15/16 at 13: 00 Morphine Sulfate (morphine) 2 mg Q4H PRN IV PAIN LEVEL 7-10 Last administered on 12/24/16 01:36; Admin Dose 2 MG; Start 12/15/16 at 13:00 Magnesium Hydroxide (Milk Of Mag) 30 ml DAILY PRN PO CONSTIPATION; Start at 13:00 Bisacodyl (Dulcolax) 5 mg DAILY PRN PO CONSTIPATION; Start 12/15/16 at 13:00 Famotidine (Pepcid) 20 mg Q12 PO Last administered on 12/24/16 08:00; Admin Dose 20 MG; Start 12/15/16 at 21:00 Hydralazine HCl (Apresoline) 10 mg Q6H PRN IV SBP>160 Last administered on 12/22 19:39; Admin Dose 10 MG; Start 12/15/16 at 13:00 Aspirin (Aspirin) 325 mg DAILY PO Last administered on 12/24/16 08:00; Admin Dose 325 MG; Start 12/16/16 at 09:00 Atorvastatin Calcium 80 mg 80 mg QHS PO Last administered on 12/23/16 20:07; Admin Dose 80 MG; Start 12/15/16 at 21:00 Ceftriaxone Sodium (Rocephin) 50 ml @ 100 mls/hr Q24H IVPB Last administered on 12/23/16 14:08; Admin Dose 100 MLS/HR; Start 12/15/16 at 15:00 Heparin Sodium (Porcine) (Heparin (5000 Units/0.5 ml)) 5,000 unit BID SC Last administered on 12/24/16 08:01; Admin Dose 5,000 UNIT; Start 12/15/16 at 21:00 Miscellaneous Information 1 ea NOTE XX ; Start 12/15/16 at 14:00 Glucose (Glutose) 15 gm Q15M PRN PO DECREASED GLUCOSE; Start 12/15/16 at 14:00 Glucose (Glutose) 22.5 gm Q15M PRN PO DECREASED GLUCOSE; Start 12/15/16 at 14: 00 Glucagon (Glucagen) 1 mg Q15M PRN IM DECREASED GLUCOSE; Start 12/15/16 at 14:00 Glucose (Glutose) 15 gm Q15M PRN BUCCAL DECREASED GLUCOSE; Start 12/15/16 at 14 :00 Hydralazine HCl (Apresoline) 25 mg Q8 PO Last administered on 12/24/16 05:14; Admin Dose 25 MG; Start 12/15/16 at 22:00 Cholecalciferol 1000 unit 1,000 unit DAILY PO Last administered on 12/24/16 08 :00; Admin Dose 1,000 UNIT; Start 12/16/16 at 09:00 Fentanyl 100 ml @ 2.5 mls/hr TITRATE IV Last administered on 12/24/16 03:52; Admin Dose 10 MLS/HR; Start 12/18/16 at 03:30 Levofloxacin/ Dextrose (Levaquin 250 Mg/ D5W 50 ml (Pmx)) 50 ml @ 50 mls/hr Q24H IVPB Last administered on 12/23/16 14:07; Admin Dose 50 MLS/HR; Start at 14:00 Dextrose (D50w Syringe) 25 ml Q15M PRN IV Till BS 80 mg/dL or above x2; Start 12/18/16 at 14:00 Dextrose (D50w Syringe) 50 ml Q15M PRN IV Till BS 80 mg/dL or above x2; Start 12/18/16 at 14:00 IV Flush 10 ml 10 ml PRN PRN IV IV PROTOCOL; Start 12/18/16 at 17:00 Norepinephrine 32 mg/Dextrose 250 ml @ 0.46 mls/hr TITRATE IV ; Start 12/19/16 at 09:30 Potassium Chloride/Sodium Chloride (1/2 NS + KCl 20 Meq) 1,000 ml @ 20 mls/hr Q24H IV Last administered on 12/23/16 20:30; Admin Dose 20 MLS/HR; Start 12/20 at 08:30 Amlodipine Besylate 5 mg 5 mg DAILY PO Last administered on 12/24/16 08:00; Admin Dose 5 MG; Start 12/21/16 at 09:00 Midazolam HCl 50 ml @ 1 mls/hr TITRATE IV Last administered on 12/24/16 07:57 ; Admin Dose 10 MLS/HR; Start 12/20/16 at 14:00 Propofol (Diprivan) 100 ml @ 3.255 mls/ hr Q12H IV Last administered on 09:00; Admin Dose 32.55 MLS/HR; Start 12/20/16 at 20:30 Hydralazine HCl (Apresoline) 10 mg Q4H PRN IV sbp > 160 Last administered on 10:36; Admin Dose 10 MG; Start 12/22/16 at 06:30 Insulin Aspart (Novolog Insulin Pen) NOVOLOG *MODERATE* ALGORI... Q6 SC Last administered on 12/24/16 05:16; Admin Dose 2 UNIT; Start 12/23/16 at 06:00 Insulin Glargine 40 unit 40 unit DAILY@20 SC Last administered on 12/23/16 20: 05; Admin Dose 40 UNIT; Start 12/23/16 at 20:00 Methylprednisolone Sodium Succinate/ Sodium Chloride (Solu-Medrol/NS) 50 ml @ 100 mls/hr BID IV Last administered on 12/23/16 20:07; Admin Dose 100 MLS/HR; Start 12/23/16 at 21:00 JESS STALLINGS Dec 24, 2016 11:10
--- NOTE | 2016-12-24 12:20 | CONS ---
Date/Time of Note Date/Time of Note DATE: 12/24/16 TIME: 12:17 Assessment/Plan Assessment/Plan Chief Complaint/Hosp Course ID PROGRESS NOTE TOTAL ABX DAY # 9 => Ceftriaxone #9 + Levaquin #7 + Azith #3 s/p Intubated early am 12/18/16 SEROLOGY RESULTS: (+)Cocaine, (+)Mycoplasma PNA IgG, A1c 14.6, (-)Cocci, (-) Crypto 24H INTERVAL SUMMARY * Noncommunicative, stable, sedated on the Vent * ABD X-ray = no gaseous distention * In treatment for CAP, possible atypical PNA, s/p NSTEMI PHYSICAL EXAMINATION: GENERAL: -> Morbid obese M, noncommunicative, orally intubated on the Vent, no fevers HEENT: ETT/OGT secure NECK: Supple, trach-> midline CHEST: Equal chest rise bilaterally, without dyspnea on observation / Vented HEART: Pulse RRR - NSR on tele ABDOMEN: Soft, obese EXTREMITIES: Warm w/generalized dependent edema SKIN: Warm, dry ID ASSESSMENT: 41 yo Morbid Obese M (+)Cocaine screen on admission seen in ICU today with : 1. Sepsis secondary to underlying community-acquired pneumonia, hypotension, acute encephalopathy, DKA * DDx Opportunistic vs cryptogenic organizing pneumonia * SEROLOGIES: (+)Mycoplasma PNA IgG, (-)Cocci, (-)Crypto * DDx ?Silent Aspiration PNA - risk factors obesity ?CHRISTINE ? GERD 2. Acute hypoxic respiratory failure=>Intubated early am 12/18 * PNA (+) * Pulmonary HTN per CT ?COPD * ?Obesity hypoventilation syndrome 3. Elevated troponins. Most probably a type 2 event from underlying sepsis and underlying acute kidney injury. 4. Acute kidney injury. 5. DKA - Type 2 diabetes mellitus.->A1c @ 14.6 6. Dyslipidemia. Continue statins. 7. Essential hypertension. . 8. Microcytic, hypochromic anemia (-) MRSA Nares (-)HIV Screen INVASIVES: * PIV ABX ALLERGIES: Vanco IV CURRENT ABX: TOTAL ABX DAY # 9 => Ceftriaxone #9 + Levaquin #7 DC Azith 12/18 ID RECOMMENDATIONS: 1.Continue ABX - Patient on adequate coverage for Atypical PNA, received Azith x 3 days-> to complete 14 day ABX course with Levaquin * , (+)Mycoplasma PNA 2.47 IgG (prior exposure vs current) 2.. Continue vent support, per pulmonary . Problems: Consultation Date/Type/Reason Admit Date/Time Dec 15, 2016 at 11:20 Type of Consultation: ID Referring Provider: LEXII REED Exam/Review of Systems Vital Signs Vitals Vital Signs Date Time Temp Pulse Resp B/P Pulse Ox O2 Delivery O2 Flow Rate FiO2 12/24/16 09:00 59 24 98 60 12/24/16 06:00 125/64 Mechanical Ventilator 12/24/16 04:00 98.2 Intake and Output 12/23/16 12/23/16 12/24/16 15:00 23:00 07:00 Intake Total 1398 ml 1298.5 ml 1111.105 ml Output Total 470 ml 1155 ml 1125 ml Balance 928 ml 143.5 ml -13.895 ml Results Result Diagram: 12/24/16 0430 12/24/16 0430 Results 24 hrs Laboratory Tests Test 12/23/16 18:14 12/23/16 20:01 12/24/16 00:40 12/24/16 04:30 Bedside Glucose 217 218 171 White Blood Count 10.5 Red Blood Count 3.90 L Hemoglobin 10.7 L Hematocrit 33.6 L Mean Corpuscular Volume 86.2 Mean Corpuscular Hemoglobin 27.4 L Mean Corpuscular Hemoglobin Concent 31.8 L Red Cell Distribution Width 13.3 Platelet Count 287 Mean Platelet Volume 11.4 H Neutrophils % 84.0 H Lymphocytes % 3.4 L Monocytes % 5.7 Eosinophils % 0.1 Basophils % 0.3 Nucleated Red Blood Cells % 0.0 Neutrophils # 8.9 H Lymphocytes # 0.4 L Monocytes # 0.6 Eosinophils # 0.0 Basophils # 0.0 Nucleated Red Blood Cells # 0.0 Sodium Level 145 H Potassium Level 3.7 Chloride Level 111 H Carbon Dioxide Level 27 Anion Gap 11 Blood Urea Nitrogen 67 H Creatinine 1.91 H Glucose Level 197 # Calcium Level 7.4 L Test 12/24/16 05:12 12/24/16 07:56 Bedside Glucose 174 188 Medications Medications Current Medications Ondansetron HCl (Zofran Inj) 4 mg Q6H PRN IV NAUSEA AND/OR VOMITING; Start at 13:00 Acetaminophen (Tylenol Tab) 650 mg Q6H PRN PO PAIN LEVEL 1-3 OR FEVER Last administered on 12/17/16 18:16; Admin Dose 650 MG; Start 12/15/16 at 13:00 Acetaminophen/ Hydrocodone Bitart (Clyde (5/325)) 1 tab Q6H PRN PO PAIN LEVEL 4 -6 Last administered on 12/15/16 22:08; Admin Dose 1 TAB; Start 12/15/16 at 13: 00 Morphine Sulfate (morphine) 2 mg Q4H PRN IV PAIN LEVEL 7-10 Last administered on 12/24/16 01:36; Admin Dose 2 MG; Start 12/15/16 at 13:00 Magnesium Hydroxide (Milk Of Mag) 30 ml DAILY PRN PO CONSTIPATION; Start at 13:00 Bisacodyl (Dulcolax) 5 mg DAILY PRN PO CONSTIPATION; Start 12/15/16 at 13:00 Famotidine (Pepcid) 20 mg Q12 PO Last administered on 12/24/16 08:00; Admin Dose 20 MG; Start 12/15/16 at 21:00 Hydralazine HCl (Apresoline) 10 mg Q6H PRN IV SBP>160 Last administered on 12/22 19:39; Admin Dose 10 MG; Start 12/15/16 at 13:00 Aspirin (Aspirin) 325 mg DAILY PO Last administered on 12/24/16 08:00; Admin Dose 325 MG; Start 12/16/16 at 09:00 Atorvastatin Calcium 80 mg 80 mg QHS PO Last administered on 12/23/16 20:07; Admin Dose 80 MG; Start 12/15/16 at 21:00 Ceftriaxone Sodium (Rocephin) 50 ml @ 100 mls/hr Q24H IVPB Last administered on 12/23/16 14:08; Admin Dose 100 MLS/HR; Start 12/15/16 at 15:00 Heparin Sodium (Porcine) (Heparin (5000 Units/0.5 ml)) 5,000 unit BID SC Last administered on 12/24/16 08:01; Admin Dose 5,000 UNIT; Start 12/15/16 at 21:00 Miscellaneous Information 1 ea NOTE XX ; Start 12/15/16 at 14:00 Glucose (Glutose) 15 gm Q15M PRN PO DECREASED GLUCOSE; Start 12/15/16 at 14:00 Glucose (Glutose) 22.5 gm Q15M PRN PO DECREASED GLUCOSE; Start 12/15/16 at 14: 00 Glucagon (Glucagen) 1 mg Q15M PRN IM DECREASED GLUCOSE; Start 12/15/16 at 14:00 Glucose (Glutose) 15 gm Q15M PRN BUCCAL DECREASED GLUCOSE; Start 12/15/16 at 14 :00 Hydralazine HCl (Apresoline) 25 mg Q8 PO Last administered on 12/24/16 05:14; Admin Dose 25 MG; Start 12/15/16 at 22:00 Cholecalciferol 1000 unit 1,000 unit DAILY PO Last administered on 12/24/16 08 :00; Admin Dose 1,000 UNIT; Start 12/16/16 at 09:00 Fentanyl 100 ml @ 2.5 mls/hr TITRATE IV Last administered on 12/24/16 03:52; Admin Dose 10 MLS/HR; Start 12/18/16 at 03:30 Levofloxacin/ Dextrose (Levaquin 250 Mg/ D5W 50 ml (Pmx)) 50 ml @ 50 mls/hr Q24H IVPB Last administered on 12/23/16 14:07; Admin Dose 50 MLS/HR; Start at 14:00 Dextrose (D50w Syringe) 25 ml Q15M PRN IV Till BS 80 mg/dL or above x2; Start 12/18/16 at 14:00 Dextrose (D50w Syringe) 50 ml Q15M PRN IV Till BS 80 mg/dL or above x2; Start 12/18/16 at 14:00 IV Flush 10 ml 10 ml PRN PRN IV IV PROTOCOL; Start 12/18/16 at 17:00 Norepinephrine 32 mg/Dextrose 250 ml @ 0.46 mls/hr TITRATE IV ; Start 12/19/16 at 09:30 Potassium Chloride/Sodium Chloride (1/2 NS + KCl 20 Meq) 1,000 ml @ 20 mls/hr Q24H IV Last administered on 12/23/16 20:30; Admin Dose 20 MLS/HR; Start 12/20 at 08:30 Amlodipine Besylate 5 mg 5 mg DAILY PO Last administered on 12/24/16 08:00; Admin Dose 5 MG; Start 12/21/16 at 09:00 Midazolam HCl 50 ml @ 1 mls/hr TITRATE IV Last administered on 12/24/16 07:57 ; Admin Dose 10 MLS/HR; Start 12/20/16 at 14:00 Propofol (Diprivan) 100 ml @ 3.255 mls/ hr Q12H IV Last administered on 09:00; Admin Dose 32.55 MLS/HR; Start 12/20/16 at 20:30 Hydralazine HCl (Apresoline) 10 mg Q4H PRN IV sbp > 160 Last administered on 10:36; Admin Dose 10 MG; Start 12/22/16 at 06:30 Insulin Aspart (Novolog Insulin Pen) NOVOLOG *MODERATE* ALGORI... Q6 SC Last administered on 12/24/16 05:16; Admin Dose 2 UNIT; Start 12/23/16 at 06:00; Stop 12/24/16 at 17:05 Insulin Glargine 40 unit 40 unit DAILY@20 SC Last administered on 12/23/16 20: 05; Admin Dose 40 UNIT; Start 12/23/16 at 20:00 Methylprednisolone Sodium Succinate/ Sodium Chloride (Solu-Medrol/NS) 50 ml @ 100 mls/hr BID IV Last administered on 12/24/16 09:45; Admin Dose 100 MLS/HR; Start 12/23/16 at 21:00 Insulin Aspart (Novolog Insulin Pen) 14 unit Q6 SC ; Start 12/24/16 at 12:00 Insulin Aspart (Novolog Insulin Pen) NOVOLOG *MODERATE* ALGORI... Q6 SC ; Start 12/24/16 at 18:00; Status MAGDALENO HERMOSILLO NP Dec 24, 2016 12:20
[2016-12-24 12:38] LABS: AADO2 Arterial 314.9 mmHg (7.0-24.0); Allen Test ACCEPTAB; Arterial Base Excess 3.4 mmol/L (-3.0-3); Arterial COHb 0.3 % (0.0-3.0); Arterial Fraction of Oxyhgb 91.8 % (93.0-99.0); Arterial HCO3 28.1 mmol/L (22.0-26.0); Arterial MetHb 0.4 % (0.0-1.5); Arterial Total Hemglobin 12.3 g/dl (12.0-18.0); MODE VENT - AC
--- NOTE | 2016-12-24 13:49 | PN ---
Date/Time of Note Date/Time of Note DATE: 12/24/16 TIME: 13:45 Assessment/Plan VTE Prophylaxis VTE Prophylaxis Intervention: heparin Lines/Catheters IV Catheter Type (from Nrs): PICC Line Central line still needed: Yes Urinary Cath still in place: Yes Reason Cath still needed: other (indicate) (monitor I&O) Assessment/Plan Chief Complaint/Hosp Course Assessment and plan 1. Sepsis secondary to underlying committee acquired pneumonia. Noted with underlying septic shock. Continue on antibiotics. Continue with ID recommendations. await for clinical improvement. off vasopressors at this time . cont vent liberation as tolerated. check f/u abg and cxr 2. Acute hypoxic respiratory failure. Likely secondary to underlying pneumonia. Of note patient was intubated on 12/18/2016. Continue with breathing treatments. Continue with recoverer recommendations. Patient also with suspect granulomatosis with polyangiitis versus microscopic polyangiitis. Chlorine Cells Operator following 3. Elevated troponins. Likely type II. Is in the setting of sepsis as well as acute renal insufficiency. Continue with cardiology recommendations. Continue telemetry monitoring. stable at present. 4. Acute kidney injury. Medications to renally dose. Likely from ATN. medications renally dosed. continue with nephrology recs 5. Type 2 diabetes. Continue insulin regimen. Will adjust as needed. stable at present 6. Dyslipidemia. continue on statin 7. Essential hypertension. on antihypertensives and adjust as needed 8. Morbid obesity. Weight reduction to be advised once patient more alert and oriented DVT prophylaxis: Heparin GERD prophylaxis: H2 lo Disposition and plan: cont vent liberation as tolerated. cont icu monitoring Discussed plan of care with Dr. Payan Critical Care time : 30 minutes Problems: Subjective 24 Hr Interval Summary Free Text/Dictation intubated. family at bedside. Exam/Review of Systems Vital Signs Vitals Vital Signs Date Time Temp Pulse Resp B/P Pulse Ox O2 Delivery O2 Flow Rate FiO2 12/24/16 12:00 69 12/24/16 09:00 24 98 60 12/24/16 06:00 125/64 Mechanical Ventilator 12/24/16 04:00 98.2 Intake and Output 12/23/16 12/23/16 12/24/16 15:00 23:00 07:00 Intake Total 1398 ml 1298.5 ml 1111.105 ml Output Total 470 ml 1155 ml 1125 ml Balance 928 ml 143.5 ml -13.895 ml Exam Constitutional: other (intubated and sedated), no change Head: normocephalic Neck: No jvd Respiratory: other (diminished lung bases) no wheezing/rhonchi Cardiovascular: other (regular rate) Gastrointestinal: other (protuberant soft nontender) Musculoskeletal: swelling (bilateral lower and upper extremities) Neurological: other (intubated and sedated) Results Result Diagram: 12/24/16 0430 12/24/16 0430 Results 24 hrs Laboratory Tests Test 12/23/16 18:14 12/23/16 20:01 12/24/16 00:40 12/24/16 04:30 Bedside Glucose 217 218 171 White Blood Count 10.5 Red Blood Count 3.90 L Hemoglobin 10.7 L Hematocrit 33.6 L Mean Corpuscular Volume 86.2 Mean Corpuscular Hemoglobin 27.4 L Mean Corpuscular Hemoglobin Concent 31.8 L Red Cell Distribution Width 13.3 Platelet Count 287 Mean Platelet Volume 11.4 H Neutrophils % 84.0 H Lymphocytes % 3.4 L Monocytes % 5.7 Eosinophils % 0.1 Basophils % 0.3 Nucleated Red Blood Cells % 0.0 Neutrophils # 8.9 H Lymphocytes # 0.4 L Monocytes # 0.6 Eosinophils # 0.0 Basophils # 0.0 Nucleated Red Blood Cells # 0.0 Sodium Level 145 H Potassium Level 3.7 Chloride Level 111 H Carbon Dioxide Level 27 Anion Gap 11 Blood Urea Nitrogen 67 H Creatinine 1.91 H Glucose Level 197 # Calcium Level 7.4 L Test 12/24/16 05:12 12/24/16 07:56 12/24/16 11:05 12/24/16 12:18 Bedside Glucose 174 188 180 Blood Gas Specimen Source Blood arterial Arterial Blood Date Drawn 12/24/2016 12:25:02 PM Arterial Blood pH (Temp corrected) 7.432 Arterial Blood pCO2 (Temp correct) 43.1 Arterial Blood pO2 (Temp corrected) 65.5 L Arterial Blood HCO3 28.1 H Arterial Blood Base Excess 3.4 H Arterial Blood Oxygen Saturation 92.4 L Leobardo Test ACCEPTAB Arterial Blood Gas Puncture Site Right Radial Arterial Blood Carboxyhemoglobin 0.3 Arterial Blood Methemoglobin 0.4 Blood Gas A-a O2 Differential 314.9 H Oxyhemoglobin Percent 91.8 L Total Hemoglobin 12.3 Blood Gas Temperature 37.0 Blood Gas Respiration Rate 24.0 Blood Gas Actual Respiration Rate 24CCW Blood Gas Modality VENT - AC FiO2 60.0 Blood Gas Tidal Volume 500.0 Blood Gas Low PEEP Setting 8.0 Blood Gas Notified Whom CW Blood Gas Notified Time 12/24/2016 12:38:07 PM Medications Medications Current Medications Ondansetron HCl (Zofran Inj) 4 mg Q6H PRN IV NAUSEA AND/OR VOMITING; Start at 13:00 Acetaminophen (Tylenol Tab) 650 mg Q6H PRN PO PAIN LEVEL 1-3 OR FEVER Last administered on 12/17/16 18:16; Admin Dose 650 MG; Start 12/15/16 at 13:00 Acetaminophen/ Hydrocodone Bitart (Frost (5/325)) 1 tab Q6H PRN PO PAIN LEVEL 4 -6 Last administered on 12/15/16 22:08; Admin Dose 1 TAB; Start 12/15/16 at 13: 00 Morphine Sulfate (morphine) 2 mg Q4H PRN IV PAIN LEVEL 7-10 Last administered on 12/24/16 01:36; Admin Dose 2 MG; Start 12/15/16 at 13:00 Magnesium Hydroxide (Milk Of Mag) 30 ml DAILY PRN PO CONSTIPATION; Start at 13:00 Bisacodyl (Dulcolax) 5 mg DAILY PRN PO CONSTIPATION; Start 12/15/16 at 13:00 Famotidine (Pepcid) 20 mg Q12 PO Last administered on 12/24/16 08:00; Admin Dose 20 MG; Start 12/15/16 at 21:00 Hydralazine HCl (Apresoline) 10 mg Q6H PRN IV SBP>160 Last administered on 12/22 19:39; Admin Dose 10 MG; Start 12/15/16 at 13:00 Aspirin (Aspirin) 325 mg DAILY PO Last administered on 12/24/16 08:00; Admin Dose 325 MG; Start 12/16/16 at 09:00 Atorvastatin Calcium 80 mg 80 mg QHS PO Last administered on 12/23/16 20:07; Admin Dose 80 MG; Start 12/15/16 at 21:00 Ceftriaxone Sodium (Rocephin) 50 ml @ 100 mls/hr Q24H IVPB Last administered on 12/23/16 14:08; Admin Dose 100 MLS/HR; Start 12/15/16 at 15:00 Heparin Sodium (Porcine) (Heparin (5000 Units/0.5 ml)) 5,000 unit BID SC Last administered on 12/24/16 08:01; Admin Dose 5,000 UNIT; Start 12/15/16 at 21:00 Miscellaneous Information 1 ea NOTE XX ; Start 12/15/16 at 14:00 Glucose (Glutose) 15 gm Q15M PRN PO DECREASED GLUCOSE; Start 12/15/16 at 14:00 Glucose (Glutose) 22.5 gm Q15M PRN PO DECREASED GLUCOSE; Start 12/15/16 at 14: 00 Glucagon (Glucagen) 1 mg Q15M PRN IM DECREASED GLUCOSE; Start 12/15/16 at 14:00 Glucose (Glutose) 15 gm Q15M PRN BUCCAL DECREASED GLUCOSE; Start 12/15/16 at 14 :00 Hydralazine HCl (Apresoline) 25 mg Q8 PO Last administered on 12/24/16 05:14; Admin Dose 25 MG; Start 12/15/16 at 22:00 Cholecalciferol 1000 unit 1,000 unit DAILY PO Last administered on 12/24/16 08 :00; Admin Dose 1,000 UNIT; Start 12/16/16 at 09:00 Fentanyl 100 ml @ 2.5 mls/hr TITRATE IV Last administered on 12/24/16 13:40; Admin Dose 10 MLS/HR; Start 12/18/16 at 03:30 Levofloxacin/ Dextrose (Levaquin 250 Mg/ D5W 50 ml (Pmx)) 50 ml @ 50 mls/hr Q24H IVPB Last administered on 12/23/16 14:07; Admin Dose 50 MLS/HR; Start at 14:00 Dextrose (D50w Syringe) 25 ml Q15M PRN IV Till BS 80 mg/dL or above x2; Start 12/18/16 at 14:00 Dextrose (D50w Syringe) 50 ml Q15M PRN IV Till BS 80 mg/dL or above x2; Start 12/18/16 at 14:00 IV Flush 10 ml 10 ml PRN PRN IV IV PROTOCOL; Start 12/18/16 at 17:00 Norepinephrine 32 mg/Dextrose 250 ml @ 0.46 mls/hr TITRATE IV ; Start 12/19/16 at 09:30 Potassium Chloride/Sodium Chloride (1/2 NS + KCl 20 Meq) 1,000 ml @ 20 mls/hr Q24H IV Last administered on 12/23/16 20:30; Admin Dose 20 MLS/HR; Start 12/20 at 08:30 Amlodipine Besylate 5 mg 5 mg DAILY PO Last administered on 12/24/16 08:00; Admin Dose 5 MG; Start 12/21/16 at 09:00 Midazolam HCl 50 ml @ 1 mls/hr TITRATE IV Last administered on 12/24/16 13:40 ; Admin Dose 10 MLS/HR; Start 12/20/16 at 14:00 Propofol (Diprivan) 100 ml @ 3.255 mls/ hr Q12H IV Last administered on 09:00; Admin Dose 32.55 MLS/HR; Start 12/20/16 at 20:30 Hydralazine HCl (Apresoline) 10 mg Q4H PRN IV sbp > 160 Last administered on 10:36; Admin Dose 10 MG; Start 12/22/16 at 06:30 Insulin Aspart (Novolog Insulin Pen) NOVOLOG *MODERATE* ALGORI... Q6 SC Last administered on 12/24/16 12:22; Admin Dose 2 UNIT; Start 12/23/16 at 06:00; Stop 12/24/16 at 17:05 Insulin Glargine 40 unit 40 unit DAILY@20 SC Last administered on 12/23/16 20: 05; Admin Dose 40 UNIT; Start 12/23/16 at 20:00 Methylprednisolone Sodium Succinate/ Sodium Chloride (Solu-Medrol/NS) 50 ml @ 100 mls/hr BID IV Last administered on 12/24/16 09:45; Admin Dose 100 MLS/HR; Start 12/23/16 at 21:00 Insulin Aspart (Novolog Insulin Pen) 14 unit Q6 SC Last administered on 12:21; Admin Dose 14 UNIT; Start 12/24/16 at 12:00 Insulin Aspart (Novolog Insulin Pen) NOVOLOG *MODERATE* ALGORI... Q6 SC ; Start 12/24/16 at 18:00 BREANA MORALES Dec 24, 2016 13:49
--- NOTE | 2016-12-24 14:38 | CONS ---
DATE OF ADMISSION: 12/15/2016 DATE OF CONSULTATION: TYPE OF CONSULTATION: Rheumatology. HISTORY OF PRESENT ILLNESS: The patient is a 41-year-old man with a history of type 2 diab etes, hypertension, hyperlipidemia, obesity. The patient was admitted to the hospital on 12/15/2016 with several days of dry cough, fevers, chills, pleuritic chest pain. He was noted to have mild re nal insufficiency which subsequently over the next several days increased from a baseline of 1.02 to close to 3, although more recently has been decreasing. The patient went into respiratory failure and needed to be intubated and remains so, agitated when medications are decreased. He has had a hi gh sedimentation rate and C-reactive protein, and was placed on antibiotics as well as IV corticoste roids. I spoke with the and she denies that the patient has had a history of arthritis, rashes, and un clear if the patient has had any history of drug abuse. RHEUMATOLOGIC REVIEW OF SYSTEMS: Is negative for prior recurrent fevers, rashes, arthritis or arthr algias. No history of persistent shortness of breath or chest pains or palpitations, abdominal pain , nausea or vomiting, or melena, or bright red blood per rectum. No history of dysuria. No history of persistent headaches or seizures. (History obtained from ). PAST MEDICAL HISTORY: As above. SURGICAL HISTORY: Status post left big toe amputation. MEDICATIONS PRIOR TO ADMISSION: Include: 1. Amlodipine. 2. Atorvastatin. 3. Carvedilol. 4. Lasix. 5. Potassium. 6. Lisinopril. 7. Magnesium. 8. Oxycodone (unclear for what pain). ALLERGIES: IBUPROFEN. SOCIAL HISTORY: The patient smokes 1 to 2 cigarettes per day, does not drink alcohol. Denied drug abuse. FAMILY HISTORY: Positive for diabetes. No definite history of lupus or rheumatoid arthritis. PHYSICAL EXAMINATION: VITAL SIGNS: Blood pressure 125/64, pulse 60, the patient is intubated on a ventilator, pulse oxime try is 97%, respiratory rate 24. GENERAL: Well-developed, slightly obese man, intubated, not alert at present. SKIN: Without acute lesions. HEENT: Without acute obvious lesions. NECK: Without lymphadenopathy noted. CHEST: With scattered crackles. HEART: Regular rate and rhythm. ABDOMEN: Soft without masses or tenderness noted. MUSCULOSKELETAL: All joints without synovitis. Some edema diffusely. Chart reviewed. LABORATORY STUDIES: Revealed a positive DAISY of 1:160 homogenous titer, negative ANCA panel, negati ve PR3 and MPO. Creatinine down to 1.91, BUN 67 at present, white count 10,500, hematocrit 33.6, he moglobin 10.7, platelets 287,000. ESR was 90 on 12/18/2016 and C-reactive protein was 24.5 on 12/18. CT of the chest had shown patchy left perihilar and left lower lobe infiltrates on 7. ASSESSMENT: 1. Positive DAISY of unclear significance. The titer is not particularly elevated. There is no hist ory of lupus or other autoimmune process in his past; however, we will check additional serologies. 2. Renal insufficiency, likely due to acute tubular necrosis from respiratory and possible septic s hock episodes. 3. Respiratory failure. Again, unclear full etiology at this point. No clear evidence of vasculit ic process and ANCA is negative, but will reevaluate. 4. Diabetes. 5. Hypertension. 6. Elevated BUN and may be in part due to the steroids. 7. Encephalopathy. 8. Question of prior myocardial infarction. 9. Anemia, likely secondary to inflammatory process. No evidence of gastrointestinal bleeding. PLAN: 1. Continue present regimen. 2. Will check additional serologies. 3. Steroids per pulmonary status at present. Thank you for having me see the patient rheumatologically, will follow while in the hospital. Dictated By: ELIZABETH CAO/SUNDEEP Conf#: [id number] DID#: [id number]
[2016-12-24] MEDS: LEVOFLOXACIN 250MG/D5W (PMX) 50 ML IVPB SCH (14:58)
[2016-12-24] MEDS: CEFTRIAXONE 1 GM/50 ML (PMX) 50 ML IVPB SCH (15:58)
[2016-12-24] MEDS: ACETAMINOPHEN 325 MG TAB PO PRN (20:34)
[2016-12-24] MEDS: ATORVASTATIN 80 MG TAB PO SCH (20:35)
[2016-12-24] MEDS: INSULIN GLARGINE [LANtus] 3 ML PEN SC SCH (20:53)
[2016-12-24] MEDS: 1/2 NS + KCL 20 MEQ 1,000 ML IV SCH (23:07)
[2016-12-25] VITALS (38 sets, daily range): BP systolic 127–211; BP diastolic 53–94; PULSE 58–102; RESP 24–35
[2016-12-25] MEDS ORDERED: LABETALOL HCL 20MG INJ IV ONE ×2 (00:30→02:00)
[2016-12-25] MEDS: MIDAZOLAM (DRIP) 50 mg/50 mL 50 ML IV SCH ×5 (00:48→22:30)
[2016-12-25] MEDS: INSULIN ASPART [NOVOLOG] 3 ML PEN SC SCH ×8 (01:10→18:07)
[2016-12-25] MEDS: LEVALBUTEROL (HFA) 15 GM INHALER INH SCH ×4 (01:42→19:45)
[2016-12-25] MEDS: morphine 2 MG INJ IV PRN (03:03)
[2016-12-25] MEDS: PROPOFOL 100 ML IV SCH ×6 (03:17→20:31)
[2016-12-25] MEDS ORDERED: LORAZEPAM 2 MG INJ IV ONE (03:30)
[2016-12-25] MEDS: ACETAMINOPHEN 325 MG TAB PO PRN (03:33)
[2016-12-25] MEDS ORDERED: hydrALAzine 20 MG INJ IV ONE (04:30)
[2016-12-25] MEDS: FUROSEMIDE 40 MG INJ IV SCH ×2 (06:11→18:02)
[2016-12-25 06:20] LABS: ADD SCAN DIFF NO
[2016-12-25 06:32] LABS: ABNORMAL IP MESSAGE 1; BASOPHILS % 0.3 % (0.0-2.0); HEMATOCRIT 33.3 % (42.0-52.0); HEMOGLOBIN 10.7 g/dl (14.0-18.0); LYMPHOCYTES # 0.3 10^3/ul (0.8-2.9); LYMPHOCYTES % 2.9 % (15.0-51.0); MEAN CORPUSCULAR HEMOGLOBIN 27.8 pg (29.0-33.0); MEAN CORPUSCULAR HGB CONC 32.1 g/dl (32.0-37.0); MEAN CORPUSCULAR VOLUME 86.5 fl (82.0-101.0); MEAN PLATELET VOLUME 11.3 fl (7.4-10.4); MONOCYTE # 0.5 10^3/ul (0.3-0.9); NEUTROPHIL # 9.6 10^3/ul (1.6-7.5); PLATELET COUNT 277 10^3/UL (140-415); RED BLOOD COUNT 3.85 10^6/ul (4.70-6.10); RED CELL DISTRIBUTION WIDTH 13.2 % (11.5-14.5); WHITE BLOOD COUNT 11.6 10^3/ul (4.8-10.8)
[2016-12-25 06:42] LABS: POTASSIUM 3.7 mmol/L (3.5-5.1)
[2016-12-25 06:45] LABS: CREATININE 1.62 mg/dl (0.61-1.24)
[2016-12-25 06:46] LABS: CALCIUM 7.3 mg/dl (8.4-10.2)
[2016-12-25] MEDS: SEVELAMER CARBONATE 2.4 GM PKT PO SCH ×3 (07:56→18:02)
[2016-12-25] MEDS: FENTAnyl (DRIP) 1000 mcg/100mL 100 ML IV SCH ×2 (07:56→17:30)
--- NOTE | 2016-12-25 08:49 | PN ---
Date/Time of Note Date/Time of Note DATE: 12/25/16 TIME: 08:43 Assessment/Plan VTE Prophylaxis VTE Prophylaxis Intervention: SCD's Lines/Catheters IV [facility] Type (from [facility]): PICC Line Central line still needed: Yes Urinary Cath still in place: Yes Reason Cath still needed: other (indicate) Assessment/Plan Chief Complaint/Hosp Course 1. Sepsis secondary to underlying community-acquired pneumonia with septic shock. Currently off pressors. On ABX as per ID. Mycoplasma serology abnormal. 2. Acute hypoxic respiratory failure. Most probably secondary to underlying pneumonia versus others. Patient got intubated on 12/18/2016. Continue inhaled bronchodilators. Pulmonology following the patient. 3. Elevated troponins. Most probably a type 2 event from underlying sepsis and underlying acute kidney injury. Cardiology following. 4. Acute kidney injury. The patient had a normal creatinine of 1.00 on 2015. The patient's current acute kidney injury could be most probably secondary to dehydration from persistent vomiting. The patient's nephrotoxic drugs will be held at this time. Being followed by nephrology. 5. Type 2 diabetes mellitus. Uncontrolled. A1C is high (send out). The patient will be maintained on sliding scale insulin along with basal insulin. 6. Dyslipidemia. Continue statins. 7. Essential hypertension. Continue antihypertensives. 8. Hypocalcemia. Probably secondary to underlying hypoalbuminemia. 9. Microcytic, hypochromic anemia. Etiology unclear. Iron panel showing iron deficiency. Continue iron supplements. 10. Vitamin D deficiency. Continue supplements. 11. Fluids, electrolytes, and nutrition. Tube feedings. 12. DVT prophylaxis. Subcutaneous heparin. 13. Gastrointestinal prophylaxis. Histamine 2 receptor blockers. 14. Plan. Continue antibiotics. Continue ventilator support. Appreciate Rheumatology inputs. Case discussed with Dr. Perez. Critical care time: 35 minutes. Problems: Subjective 24 Hr Interval Summary Free Text/Dictation The patient remains on Propofol, Fentanyl, and Versed for sedation. FiO2 was increased because of hypoxia. Exam/Review of Systems Vital Signs Vitals Vital Signs Date Time Temp Pulse Resp B/P Pulse Ox O2 Delivery O2 Flow Rate FiO2 12/25/16 07:30 71 24 96 100 12/25/16 06:35 152/73 12/25/16 03:30 99.3 12/24/16 23:00 Mechanical Ventilator Intake and Output 12/24/16 12/24/1617 15:00 23:00 07:00 Intake Total 1300.40 ml 1175.30 ml 832.55 ml Output Total 800 ml 1700 ml 725 ml Balance 500.40 ml -524.70 ml 107.55 ml Exam GENERAL: This is a morbidly obese male lying in bed, orally intubated and mechanically ventilated. HEENT: Head normocephalic and atraumatic. Eyes: Anicteric sclerae. Conjunctivae clear. ENT: Nasal septum is midline. Oral mucosa is dry. NECK: Short with increased neck circumference. RESPIRATORY: Bilaterally diminished breath sounds. On mechanical ventilator. On 100% FiO2 with a PEEP of 8. CARDIAC: Regular rate and rhythm. S1, S2 heard. ABDOMEN: Soft, nontender and nondistended. Bowel sounds positive in all 4 quadrants. GENITOURINARY: Deferred. EXTREMITIES: No cyanosis, no clubbing. B/L LE edema. Pedal pulses palpable. Status post left great toe amputation. NEUROLOGIC: The patient is currently sedated. Results Result Diagram: 12/25/16 0600 12/25/16 0600 Results 24 hrs Laboratory Tests Test 12/24/16 11:05 12/24/16 12:18 12/24/16 17:51 12/24/16 20:42 Blood Gas Specimen Source Blood arterial Arterial Blood Date Drawn 12/24/2016 12:25:02 PM Arterial Blood pH (Temp corrected) 7.432 Arterial Blood pCO2 (Temp correct) 43.1 Arterial Blood pO2 (Temp corrected) 65.5 L Arterial Blood HCO3 28.1 H Arterial Blood Base Excess 3.4 H Arterial Blood Oxygen Saturation 92.4 L Leobardo Test ACCEPTAB Arterial Blood Gas Puncture Site Right Radial Arterial Blood Carboxyhemoglobin 0.3 Arterial Blood Methemoglobin 0.4 Blood Gas A-a O2 Differential 314.9 H Oxyhemoglobin Percent 91.8 L Total Hemoglobin 12.3 Blood Gas Temperature 37.0 Blood Gas Respiration Rate 24.0 Blood Gas Actual Respiration Rate 24CCW Blood Gas Modality VENT - AC FiO2 60.0 Blood Gas Tidal Volume 500.0 Blood Gas Low PEEP Setting 8.0 Blood Gas Notified Whom CW Blood Gas Notified Time 12/24/2016 12:38:07 PM Bedside Glucose 180 142 173 Test 12/25/16 00:27 12/25/16 05:29 12/25/16 06:00 Bedside Glucose 186 244 H White Blood Count 11.6 H Red Blood Count 3.85 L Hemoglobin 10.7 L Hematocrit 33.3 L Mean Corpuscular Volume 86.5 Mean Corpuscular Hemoglobin 27.8 L Mean Corpuscular Hemoglobin Concent 32.1 Red Cell Distribution Width 13.2 Platelet Count 277 Mean Platelet Volume 11.3 H Neutrophils % 83.0 H Lymphocytes % 2.9 L Monocytes % 4.0 Eosinophils % 0.0 Basophils % 0.3 Nucleated Red Blood Cells % 0.0 Neutrophils # 9.6 H Lymphocytes # 0.3 L Monocytes # 0.5 Eosinophils # 0.0 Basophils # 0.0 Nucleated Red Blood Cells # 0.0 Erythrocyte Sedimentation Rate 83 H Sodium Level 145 H Potassium Level 3.7 Chloride Level 110 Carbon Dioxide Level 28 Anion Gap 11 Blood Urea Nitrogen 56 H Creatinine 1.62 H Glucose Level 271 H Calcium Level 7.3 L C-Reactive Protein 1.6 H Medications Medications Current Medications Ondansetron HCl (Zofran Inj) 4 mg Q6H PRN IV NAUSEA AND/OR VOMITING; Start at 13:00 Acetaminophen (Tylenol Tab) 650 mg Q6H PRN PO PAIN LEVEL 1-3 OR FEVER Last administered on 12/25/16 03:33; Admin Dose 650 MG; Start 12/15/16 at 13:00 Acetaminophen/ Hydrocodone Bitart ([place] (5/325)) 1 tab Q6H PRN PO PAIN LEVEL 4 -6 Last administered on 12/15/16 22:08; Admin Dose 1 TAB; Start 12/15/16 at 13: 00 Morphine Sulfate (morphine) 2 mg Q4H PRN IV PAIN LEVEL 7-10 Last administered on 12/25/16 03:03; Admin Dose 2 MG; Start 12/15/16 at 13:00 Magnesium Hydroxide (Milk Of Mag) 30 ml DAILY PRN PO CONSTIPATION; Start at 13:00 Bisacodyl (Dulcolax) 5 mg DAILY PRN PO CONSTIPATION; Start 12/15/16 at 13:00 Famotidine (Pepcid) 20 mg Q12 PO Last administered on 12/24/16 20:36; Admin Dose 20 MG; Start 12/15/16 at 21:00 Hydralazine HCl (Apresoline) 10 mg Q6H PRN IV SBP>160 Last administered on 12/22 19:39; Admin Dose 10 MG; Start 12/15/16 at 13:00 Aspirin (Aspirin) 325 mg DAILY PO Last administered on 12/24/16 08:00; Admin Dose 325 MG; Start 12/16/16 at 09:00 Atorvastatin Calcium 80 mg 80 mg QHS PO Last administered on 12/24/16 20:35; Admin Dose 80 MG; Start 12/15/16 at 21:00 Ceftriaxone Sodium (Rocephin) 50 ml @ 100 mls/hr Q24H IVPB Last administered on 12/24/16 15:58; Admin Dose 100 MLS/HR; Start 12/15/16 at 15:00 Heparin Sodium (Porcine) (Heparin (5000 Units/0.5 ml)) 5,000 unit BID SC Last administered on 12/24/16 22:19; Admin Dose 5,000 UNIT; Start 12/15/16 at 21:00 Miscellaneous Information 1 ea NOTE XX ; Start 12/15/16 at 14:00 Glucose (Glutose) 15 gm Q15M PRN PO DECREASED GLUCOSE; Start 12/15/16 at 14:00 Glucose (Glutose) 22.5 gm Q15M PRN PO DECREASED GLUCOSE; Start 12/15/16 at 14: 00 Glucagon (Glucagen) 1 mg Q15M PRN IM DECREASED GLUCOSE; Start 12/15/16 at 14:00 Glucose (Glutose) 15 gm Q15M PRN BUCCAL DECREASED GLUCOSE; Start 12/15/16 at 14 :00 Cholecalciferol 1000 unit 1,000 unit DAILY PO Last administered on 12/24/16 08 :00; Admin Dose 1,000 UNIT; Start 12/16/16 at 09:00 Fentanyl 100 ml @ 2.5 mls/hr TITRATE IV Last administered on 12/25/16 07:56; Admin Dose 10 MLS/HR; Start 12/18/16 at 03:30 Levofloxacin/ Dextrose (Levaquin 250 Mg/ D5W 50 ml (Pmx)) 50 ml @ 50 mls/hr Q24H IVPB Last administered on 12/24/16 14:58; Admin Dose 50 MLS/HR; Start at 14:00 Dextrose (D50w Syringe) 25 ml Q15M PRN IV Till BS 80 mg/dL or above x2; Start 12/18/16 at 14:00 Dextrose (D50w Syringe) 50 ml Q15M PRN IV Till BS 80 mg/dL or above x2; Start 12/18/16 at 14:00 IV Flush 10 ml 10 ml PRN PRN IV IV PROTOCOL; Start 12/18/16 at 17:00 Norepinephrine 32 mg/Dextrose 250 ml @ 0.46 mls/hr TITRATE IV ; Start 12/19/16 at 09:30 Potassium Chloride/Sodium Chloride (1/2 NS + KCl 20 Meq) 1,000 ml @ 20 mls/hr Q24H IV Last administered on 12/24/16 23:07; Admin Dose 20 MLS/HR; Start 12/20 at 08:30 Amlodipine Besylate 5 mg 5 mg DAILY PO Last administered on 12/24/16 08:00; Admin Dose 5 MG; Start 12/21/16 at 09:00 Midazolam HCl 50 ml @ 1 mls/hr TITRATE IV Last administered on 12/25/16 06:49; Admin Dose 10 MLS/HR; Start 12/20/16 at 14:00 Propofol (Diprivan) 100 ml @ 3.255 mls/ hr Q12H IV Last administered on 06:51; Admin Dose 32.55 MLS/HR; Start 12/20/16 at 20:30 Hydralazine HCl (Apresoline) 10 mg Q4H PRN IV sbp > 160 Last administered on 22:35; Admin Dose 10 MG; Start 12/22/16 at 06:30 Insulin Glargine 40 unit 40 unit DAILY@20 SC Last administered on 12/24/16 20: 53; Admin Dose 40 UNIT; Start 12/23/16 at 20:00 Methylprednisolone Sodium Succinate/ Sodium Chloride (Solu-Medrol/NS) 50 ml @ 100 mls/hr BID IV Last administered on 12/24/16 22:17; Admin Dose 100 MLS/HR; Start 12/23/16 at 21:00 Insulin Aspart (Novolog Insulin Pen) 14 unit Q6 SC Last administered on 17:59; Admin Dose 14 UNIT; Start 12/24/16 at 12:00 Insulin Aspart (Novolog Insulin Pen) NOVOLOG *MODERATE* ALGORI... Q6 SC Last administered on 12/25/16 05:33; Admin Dose 6 UNIT; Start 12/24/16 at 18:00 Lorazepam (Ativan) 1 mg Q1H PRN IV agitation; Start 12/25/16 at 03:30 Carvedilol (Coreg) 25 mg BID PO ; Start 12/25/16 at 09:00 Hydralazine HCl (Apresoline) 50 mg Q8 PO Last administered on 12/25/16 07:15; Admin Dose 50 MG; Start 12/25/16 at 06:00 GEORGI CORBETT NP December 25, 2016 08:49
[2016-12-25] MEDS: ASPIRIN 325 MG TAB PO SCH (08:55)
[2016-12-25] MEDS: hydrALAzine 20 MG INJ IV PRN (08:55)
[2016-12-25] MEDS: FAMOTIDINE 20 MG TAB PO SCH ×2 (08:56→20:31)
[2016-12-25] MEDS: AMLODIPINE 5 MG TAB PO SCH (08:56)
[2016-12-25] MEDS: CHOLECALCIFEROL 1,000 UNIT TAB PO SCH (08:56)
[2016-12-25] MEDS: HEPARIN 5,000 UNIT/0.5 ML VIAL SC SCH ×2 (08:58→20:33)
--- NOTE | 2016-12-25 10:14 | PN ---
DATE: 12/25/2016 SUBJECTIVE: The patient remains critically ill on 100% FIO2. No other events noted. No hemoptysis , hematemesis or hematochezia. OBJECTIVE: VITAL SIGNS: Blood pressure is 165/76, respiration is 26, pulse 92, temperature 98.8. HEENT: Head is normocephalic. NECK: Supple. HEART: Regular rate. LUNGS: Show diminished breath sounds at the base. ABDOMEN: Soft, nontender to palpation. No rebound or guarding. EXTREMITIES: Negative for clubbing, cyanosis. Trace edema. DERMATOLOGIC: No rashes. MUSCULOSKELETAL: No joint effusions. NEUROLOGIC: No change in exam. MEDICATIONS: The patient's medications have been reviewed. LABORATORY DATA: Shows a sodium 145, potassium 3.7, chloride 110, BUN 56, creatinine 1.62. White c ount 11.6, hemoglobin 10.7, hematocrit 32.3, platelet count is 277. ASSESSMENT AND PLAN: 1. Nonoliguric acute kidney injury with previous baseline creatinine 1.0 mg/dL. Etiology of acute kidney injury is secondary to acute tubular necrosis due to shock and sepsis. The patient appears t o be entering recovery phase of acute tubular necrosis as renal function has slowly been improving. At this point, continue current treatment plan, supportive care, renally dose all meds. 2. Volume overload. Etiology is secondary to acute kidney injury. The patient is tolerating diure tic therapy. We will continue. 3. Hypernatremia. Will increase free water flushes 300 mL q.4h. 4. Mineral bone disorder. Continue to monitor calcium and phosphorus levels. 5. Anemia. Continue to monitor hemoglobin and hematocrit levels. 6. Ventilator dependent respiratory failure. Etiology is secondary to pneumonia and possible ARDS. The patient's vent settings and ABG is reviewed. Continue to monitor. Follow up with pulmonary. 7. Sepsis, status post shock. Continue current antibiotic regimen. 8. Non-STEMI. Continue current medical management. 9. Diabetes. Continue current insulin regimen. 10. History of polysubstance abuse. 11. Encephalopathy. No change. 12. Hypertension. Continue current blood pressure regimen. Continue diuretic therapy. 13. Elevated troponin, possible non-STEMI type 2. Continue current treatment plan. Please note I spent over 30 minutes of critical care time with this patient. Dictated By: LUIS JOSHI/SUNDEEP Conf#: [id number] [facility]#: [id number]
--- NOTE | 2016-12-25 10:21 | CONS ---
Date/Time of Note Date/Time of Note DATE: 12/25/16 TIME: 10:19 Consult Date/Type/Reason Admit Date/Time Dec 15, 2016 at 11:20 Type of Consultation: Pulmonary ICU Ordering Provider: LEXII REED Subjective Patient had desaturations overnight now on 100% FiO2 with a PEEP of 8. Continues propofol and fentanyl and Versed. Objective Vital Signs Date Time Temp Pulse Resp B/P Pulse Ox O2 Delivery O2 Flow Rate FiO2 12/25/16 09:30 68 24 96 100 12/25/16 06:35 152/73 12/25/16 03:30 99.3 12/24/16 23:00 Mechanical Ventilator Intake and Output 12/24/16 12/24/16 12/25/16 15:00 23:00 07:00 Intake Total 1300.40 ml 1175.30 ml 1343.00 ml Output Total 800 ml 1700 ml 725 ml Balance 500.40 ml -524.70 ml 618.00 ml Exam PHYSICAL EXAMINATION GENERAL: Young gentleman intubated sedated on mechanical ventilation VITAL SIGNS: see below. HEENT: Pupils equal, round, and reactive to light. CARDIAC: S1, S2, no added sounds or murmurs CHEST: Diminished air entry bilaterally. ABDOMEN: Mildly distended. Bowel sounds present. EXTREMITIES: No cyanosis, clubbing edema +1 NEUROLOGIC: Unable to assess Results/Medications Result Diagram: 12/25/16 0600 12/25/16 0600 Results 24 hrs Laboratory Tests Test 12/24/16 11:05 12/24/16 12:18 12/24/16 17:51 12/24/16 20:42 Blood Gas Specimen Source Blood arterial Arterial Blood Date Drawn 12/24/2016 12:25:02 PM Arterial Blood pH (Temp corrected) 7.432 Arterial Blood pCO2 (Temp correct) 43.1 Arterial Blood pO2 (Temp corrected) 65.5 L Arterial Blood HCO3 28.1 H Arterial Blood Base Excess 3.4 H Arterial Blood Oxygen Saturation 92.4 L Leobardo Test ACCEPTAB Arterial Blood Gas Puncture Site Right Radial Arterial Blood Carboxyhemoglobin 0.3 Arterial Blood Methemoglobin 0.4 Blood Gas A-a O2 Differential 314.9 H Oxyhemoglobin Percent 91.8 L Total Hemoglobin 12.3 Blood Gas Temperature 37.0 Blood Gas Respiration Rate 24.0 Blood Gas Actual Respiration Rate 24CCW Blood Gas Modality VENT - AC FiO2 60.0 Blood Gas Tidal Volume 500.0 Blood Gas Low PEEP Setting 8.0 Blood Gas Notified Whom CW Blood Gas Notified Time 12/24/2016 12:38:07 PM Bedside Glucose 180 142 173 Test 12/25/16 00:27 12/25/16 05:29 12/25/16 06:00 Bedside Glucose 186 244 H White Blood Count 11.6 H Red Blood Count 3.85 L Hemoglobin 10.7 L Hematocrit 33.3 L Mean Corpuscular Volume 86.5 Mean Corpuscular Hemoglobin 27.8 L Mean Corpuscular Hemoglobin Concent 32.1 Red Cell Distribution Width 13.2 Platelet Count 277 Mean Platelet Volume 11.3 H Neutrophils % 83.0 H Lymphocytes % 2.9 L Monocytes % 4.0 Eosinophils % 0.0 Basophils % 0.3 Nucleated Red Blood Cells % 0.0 Neutrophils # 9.6 H Lymphocytes # 0.3 L Monocytes # 0.5 Eosinophils # 0.0 Basophils # 0.0 Nucleated Red Blood Cells # 0.0 Erythrocyte Sedimentation Rate 83 H Sodium Level 145 H Potassium Level 3.7 Chloride Level 110 Carbon Dioxide Level 28 Anion Gap 11 Blood Urea Nitrogen 56 H Creatinine 1.62 H Glucose Level 271 H Calcium Level 7.3 L C-Reactive Protein 1.6 H Medications Current Medications Ondansetron HCl (Zofran Inj) 4 mg Q6H PRN IV NAUSEA AND/OR VOMITING; Start at 13:00 Acetaminophen (Tylenol Tab) 650 mg Q6H PRN PO PAIN LEVEL 1-3 OR FEVER Last administered on 12/25/16 03:33; Admin Dose 650 MG; Start 12/15/16 at 13:00 Acetaminophen/ Hydrocodone Bitart ([place] (5/325)) 1 tab Q6H PRN PO PAIN LEVEL 4 -6 Last administered on 12/15/16 22:08; Admin Dose 1 TAB; Start 12/15/16 at 13: 00 Morphine Sulfate (morphine) 2 mg Q4H PRN IV PAIN LEVEL 7-10 Last administered on 12/25/16 03:03; Admin Dose 2 MG; Start 12/15/16 at 13:00 Magnesium Hydroxide (Milk Of Mag) 30 ml DAILY PRN PO CONSTIPATION; Start at 13:00 Bisacodyl (Dulcolax) 5 mg DAILY PRN PO CONSTIPATION; Start 12/15/16 at 13:00 Famotidine (Pepcid) 20 mg Q12 PO Last administered on 12/25/16 08:56; Admin Dose 20 MG; Start 12/15/16 at 21:00 Hydralazine HCl (Apresoline) 10 mg Q6H PRN IV SBP>160 Last administered on 08:55; Admin Dose 10 MG; Start 12/15/16 at 13:00 Aspirin (Aspirin) 325 mg DAILY PO Last administered on 12/25/16 08:55; Admin Dose 325 MG; Start 12/16/16 at 09:00 Atorvastatin Calcium 80 mg 80 mg QHS PO Last administered on 12/24/16 20:35; Admin Dose 80 MG; Start 12/15/16 at 21:00 Ceftriaxone Sodium (Rocephin) 50 ml @ 100 mls/hr Q24H IVPB Last administered on 12/24/16 15:58; Admin Dose 100 MLS/HR; Start 12/15/16 at 15:00 Heparin Sodium (Porcine) (Heparin (5000 Units/0.5 ml)) 5,000 unit BID SC Last administered on 12/25/16 08:58; Admin Dose 5,000 UNIT; Start 12/15/16 at 21:00 Miscellaneous Information 1 ea NOTE XX ; Start 12/15/16 at 14:00 Glucose (Glutose) 15 gm Q15M PRN PO DECREASED GLUCOSE; Start 12/15/16 at 14:00 Glucose (Glutose) 22.5 gm Q15M PRN PO DECREASED GLUCOSE; Start 12/15/16 at 14: 00 Glucagon (Glucagen) 1 mg Q15M PRN IM DECREASED GLUCOSE; Start 12/15/16 at 14:00 Glucose (Glutose) 15 gm Q15M PRN BUCCAL DECREASED GLUCOSE; Start 12/15/16 at 14 :00 Cholecalciferol 1000 unit 1,000 unit DAILY PO Last administered on 12/25/16 08: 56; Admin Dose 1,000 UNIT; Start 12/16/16 at 09:00 Fentanyl 100 ml @ 2.5 mls/hr TITRATE IV Last administered on 12/25/16 07:56; Admin Dose 10 MLS/HR; Start 12/18/16 at 03:30 Levofloxacin/ Dextrose (Levaquin 250 Mg/ D5W 50 ml (Pmx)) 50 ml @ 50 mls/hr Q24H IVPB Last administered on 12/24/16 14:58; Admin Dose 50 MLS/HR; Start at 14:00 Dextrose (D50w Syringe) 25 ml Q15M PRN IV Till BS 80 mg/dL or above x2; Start 12/18/16 at 14:00 Dextrose (D50w Syringe) 50 ml Q15M PRN IV Till BS 80 mg/dL or above x2; Start 12/18/16 at 14:00 IV Flush 10 ml 10 ml PRN PRN IV IV PROTOCOL; Start 12/18/16 at 17:00 Norepinephrine 32 mg/Dextrose 250 ml @ 0.46 mls/hr TITRATE IV ; Start 12/19/16 at 09:30 Potassium Chloride/Sodium Chloride (1/2 NS + KCl 20 Meq) 1,000 ml @ 20 mls/hr Q24H IV Last administered on 12/24/16 23:07; Admin Dose 20 MLS/HR; Start 12/20 at 08:30 Amlodipine Besylate 5 mg 5 mg DAILY PO Last administered on 12/25/16 08:56; Admin Dose 5 MG; Start 12/21/16 at 09:00 Midazolam HCl 50 ml @ 1 mls/hr TITRATE IV Last administered on 12/25/16 06:49; Admin Dose 10 MLS/HR; Start 12/20/16 at 14:00 Propofol (Diprivan) 100 ml @ 3.255 mls/ hr Q12H IV Last administered on 06:51; Admin Dose 32.55 MLS/HR; Start 12/20/16 at 20:30 Hydralazine HCl (Apresoline) 10 mg Q4H PRN IV sbp > 160 Last administered on 22:35; Admin Dose 10 MG; Start 12/22/16 at 06:30 Insulin Glargine 40 unit 40 unit DAILY@20 SC Last administered on 12/24/16 20: 53; Admin Dose 40 UNIT; Start 12/23/16 at 20:00 Methylprednisolone Sodium Succinate/ Sodium Chloride (Solu-Medrol/NS) 50 ml @ 100 mls/hr BID IV Last administered on 12/24/16 22:17; Admin Dose 100 MLS/HR; Start 12/23/16 at 21:00 Insulin Aspart (Novolog Insulin Pen) 14 unit Q6 SC Last administered on 17:59; Admin Dose 14 UNIT; Start 12/24/16 at 12:00 Insulin Aspart (Novolog Insulin Pen) NOVOLOG *MODERATE* ALGORI... Q6 SC Last administered on 12/25/16 05:33; Admin Dose 6 UNIT; Start 12/24/16 at 18:00 Lorazepam (Ativan) 1 mg Q1H PRN IV agitation; Start 12/25/16 at 03:30 Carvedilol (Coreg) 25 mg BID PO Last administered on 12/25/16 08:56; Admin Dose 25 MG; Start 12/25/16 at 09:00 Hydralazine HCl (Apresoline) 50 mg Q8 PO Last administered on 12/25/16 07:15; Admin Dose 50 MG; Start 12/25/16 at 06:00 Assessment/Plan Chief Complaint/Hosp Course Assessment 1. Acute hypoxemic respiratory failure 2. Workup for vasculitis ongoing, continues high-dose steroids., Appreciate rheumatology recommendations. 3. Diabetes mellitus 4. Recent anemia Plan 1. Continue mechanical ventilation 2. Decrease FiO2 as tolerated 3. Continues empiric steroids consider decreasing dose if no evidence of vasculitis. 4. Continue broad-spectrum antibiotics 5. May require renal biopsy 6. consider increasing diuretics. Disposition Discussed with staff Discussed with primary care team Continue ICU care Critical care time 40 minutes Problems: VERO SOTO MD, [facility] December 25, 2016 10:21
[2016-12-25 11:27] LABS: AADO2 Arterial 570.4 mmHg (7.0-24.0); Allen Test ACCEPTAB; Arterial Base Excess 2.7 mmol/L (-3.0-3); Arterial COHb 0.2 % (0.0-3.0); Arterial Fraction of Oxyhgb 95.9 % (93.0-99.0); Arterial HCO3 27.6 mmol/L (22.0-26.0); Arterial MetHb 0.6 % (0.0-1.5); Arterial Total Hemglobin 11.7 g/dl (12.0-18.0); MODE VENT - AC
--- NOTE | 2016-12-25 12:49 | CONS ---
Date/Time of Note Date/Time of Note DATE: 12/25/16 TIME: 12:41 Assessment/Plan Assessment/Plan Chief Complaint/Hosp Course IMPRESSION: 1. Positive troponin, assess significance.-no sig uptrend/likely demand event in settng fevers/tachy/resp distress 2. Abnormal electrocardiogram with ST depressions with tachycardia and positive troponin, likely indicative of coronary artery disease.-improved ecg findings with improved HR 3. Hypertension, uncontrolled mildly still 4. Dyslipidemia. 5. Diabetes mellitus. 6. Fevers to 104 documented here in the hospital.-now defervesed 7. Renal failure.-acute on chronic 8. Lower extremity edema, assess for congestive heart failure. 9. Hypokalemia. 10. Nausea and vomiting. 11. Chest pain with cough. 12.Resp failure s/p intubation 14. Bradycardia-to 40's.Now improved Recc: -Tele -serial ecg's -Continue asa/statin -Continue abx's and f/u cx data -Continue bronchodilators and steroids. -Follow volume status closely -Continue hydralazine/norvasc -Coreg resumed this AM but will decrease dose to be sure that patient tolerates given prior [place] -Ongoing eval for vasculitic syndrome per rheum Problems: Consultation Date/Type/Reason Admit Date/Time Dec 15, 2016 at 11:20 Initial Consult Date 12/15/2016 Type of Consultation: Cardiology Reason for Consultation positive troponin Referring Provider: LEXII REED Exam/Review of Systems Vital Signs Vitals Vital Signs Date Time Temp Pulse Resp B/P Pulse Ox O2 Delivery O2 Flow Rate FiO2 12/25/16 11:30 66 24 98 100 12/25/16 11:00 133/56 Mechanical Ventilator 12/25/16 08:00 98.6 Intake and Output 12/24/16 12/24/16 12/25/16 15:00 23:00 07:00 Intake Total 1300.40 ml 1175.30 ml 1343.00 ml Output Total 800 ml 1700 ml 725 ml Balance 500.40 ml -524.70 ml 618.00 ml Exam Review of Systems: CONSTITUTIONAL: No fevers, chills. PULMONARY: intubated CARDIOVASCULAR: No obvious chest pain/palpitations GASTROINTESTINAL: No nausea/vomiting. GENITOURINARY: No hematuria/dysuria. MUSCULOSKELETAL: No obvious myagias/arthalgias. PSYCHIATRIC: No docmented depression. NEUROLOGIC: lethargic Constitutional: other (sdated) Psych: no complaints Head: normocephalic ENMT: mucosa pink and moist Neck: jvd, supple Respiratory: diminished breath sounds Cardiovascular: regular rate and rhythm Gastrointestinal: non-tender, soft Musculoskeletal: muscle tone (normal) Extremities: edema (none) Neurological: other (sedated) Results Result Diagram: 12/25/16 0600 12/25/16 0600 Results 24 hrs Laboratory Tests Test 12/24/16 17:51 12/24/16 20:42 12/25/16 00:27 12/25/16 05:29 Bedside Glucose 142 173 186 244 H Test 12/25/16 06:00 12/25/16 10:18 12/25/16 12:20 White Blood Count 11.6 H Red Blood Count 3.85 L Hemoglobin 10.7 L Hematocrit 33.3 L Mean Corpuscular Volume 86.5 Mean Corpuscular Hemoglobin 27.8 L Mean Corpuscular Hemoglobin Concent 32.1 Red Cell Distribution Width 13.2 Platelet Count 277 Mean Platelet Volume 11.3 H Neutrophils % 83.0 H Lymphocytes % 2.9 L Monocytes % 4.0 Eosinophils % 0.0 Basophils % 0.3 Nucleated Red Blood Cells % 0.0 Neutrophils # 9.6 H Lymphocytes # 0.3 L Monocytes # 0.5 Eosinophils # 0.0 Basophils # 0.0 Nucleated Red Blood Cells # 0.0 Erythrocyte Sedimentation Rate 83 H Sodium Level 145 H Potassium Level 3.7 Chloride Level 110 Carbon Dioxide Level 28 Anion Gap 11 Blood Urea Nitrogen 56 H Creatinine 1.62 H Glucose Level 271 H Calcium Level 7.3 L C-Reactive Protein 1.6 H Blood Gas Specimen Source Blood arterial Arterial Blood Date Drawn 12/25/2016 11:10:51 AM Arterial Blood pH (Temp corrected) 7.419 Arterial Blood pCO2 (Temp correct) 43.6 Arterial Blood pO2 (Temp corrected) 99.0 Arterial Blood HCO3 27.6 H Arterial Blood Base Excess 2.7 Arterial Blood Oxygen Saturation 96.7 Leobardo Test ACCEPTAB Arterial Blood Gas Puncture Site Right Radial Arterial Blood Carboxyhemoglobin 0.2 Arterial Blood Methemoglobin 0.6 Blood Gas A-a O2 Differential 570.4 H Oxyhemoglobin Percent 95.9 Total Hemoglobin 11.7 L Blood Gas Temperature 37.0 Blood Gas Respiration Rate 24.0 Blood Gas Actual Respiration Rate 24 Blood Gas Modality VENT - AC FiO2 100.0 Blood Gas Tidal Volume 500.0 Blood Gas Low PEEP Setting 8.0 Blood Gas Notified Whom JLD Blood Gas Notified Time 12/25/2016 11:27:27 AM Bedside Glucose 256 H Medications Medications Current Medications Ondansetron HCl (Zofran Inj) 4 mg Q6H PRN IV NAUSEA AND/OR VOMITING; Start at 13:00 Acetaminophen (Tylenol Tab) 650 mg Q6H PRN PO PAIN LEVEL 1-3 OR FEVER Last administered on 12/25/16 03:33; Admin Dose 650 MG; Start 12/15/16 at 13:00 Acetaminophen/ Hydrocodone Bitart ([place] (5/325)) 1 tab Q6H PRN PO PAIN LEVEL 4 -6 Last administered on 12/15/16 22:08; Admin Dose 1 TAB; Start 12/15/16 at 13: 00 Morphine Sulfate (morphine) 2 mg Q4H PRN IV PAIN LEVEL 7-10 Last administered on 12/25/16 03:03; Admin Dose 2 MG; Start 12/15/16 at 13:00 Magnesium Hydroxide (Milk Of Mag) 30 ml DAILY PRN PO CONSTIPATION; Start at 13:00 Bisacodyl (Dulcolax) 5 mg DAILY PRN PO CONSTIPATION; Start 12/15/16 at 13:00 Famotidine (Pepcid) 20 mg Q12 PO Last administered on 12/25/16 08:56; Admin Dose 20 MG; Start 12/15/16 at 21:00 Hydralazine HCl (Apresoline) 10 mg Q6H PRN IV SBP>160 Last administered on 08:55; Admin Dose 10 MG; Start 12/15/16 at 13:00 Aspirin (Aspirin) 325 mg DAILY PO Last administered on 12/25/16 08:55; Admin Dose 325 MG; Start 12/16/16 at 09:00 Atorvastatin Calcium 80 mg 80 mg QHS PO Last administered on 12/24/16 20:35; Admin Dose 80 MG; Start 12/15/16 at 21:00 Ceftriaxone Sodium (Rocephin) 50 ml @ 100 mls/hr Q24H IVPB Last administered on 12/24/16 15:58; Admin Dose 100 MLS/HR; Start 12/15/16 at 15:00 Heparin Sodium (Porcine) (Heparin (5000 Units/0.5 ml)) 5,000 unit BID SC Last administered on 12/25/16 08:58; Admin Dose 5,000 UNIT; Start 12/15/16 at 21:00 Miscellaneous Information 1 ea NOTE XX ; Start 12/15/16 at 14:00 Glucose (Glutose) 15 gm Q15M PRN PO DECREASED GLUCOSE; Start 12/15/16 at 14:00 Glucose (Glutose) 22.5 gm Q15M PRN PO DECREASED GLUCOSE; Start 12/15/16 at 14: 00 Glucagon (Glucagen) 1 mg Q15M PRN IM DECREASED GLUCOSE; Start 12/15/16 at 14:00 Glucose (Glutose) 15 gm Q15M PRN BUCCAL DECREASED GLUCOSE; Start 12/15/16 at 14 :00 Cholecalciferol 1000 unit 1,000 unit DAILY PO Last administered on 12/25/16 08: 56; Admin Dose 1,000 UNIT; Start 12/16/16 at 09:00 Fentanyl 100 ml @ 2.5 mls/hr TITRATE IV Last administered on 12/25/16 07:56; Admin Dose 10 MLS/HR; Start 12/18/16 at 03:30 Levofloxacin/ Dextrose (Levaquin 250 Mg/ D5W 50 ml (Pmx)) 50 ml @ 50 mls/hr Q24H IVPB Last administered on 12/24/16 14:58; Admin Dose 50 MLS/HR; Start at 14:00 Dextrose (D50w Syringe) 25 ml Q15M PRN IV Till BS 80 mg/dL or above x2; Start 12/18/16 at 14:00 Dextrose (D50w Syringe) 50 ml Q15M PRN IV Till BS 80 mg/dL or above x2; Start 12/18/16 at 14:00 IV Flush 10 ml 10 ml PRN PRN IV IV PROTOCOL; Start 12/18/16 at 17:00 Norepinephrine 32 mg/Dextrose 250 ml @ 0.46 mls/hr TITRATE IV ; Start 12/19/16 at 09:30 Potassium Chloride/Sodium Chloride (1/2 NS + KCl 20 Meq) 1,000 ml @ 20 mls/hr Q24H IV Last administered on 12/24/16 23:07; Admin Dose 20 MLS/HR; Start 12/20 at 08:30 Amlodipine Besylate 5 mg 5 mg DAILY PO Last administered on 12/25/16 08:56; Admin Dose 5 MG; Start 12/21/16 at 09:00 Midazolam HCl 50 ml @ 1 mls/hr TITRATE IV Last administered on 12/25/16 11:24; Admin Dose 10 MLS/HR; Start 12/20/16 at 14:00 Propofol (Diprivan) 100 ml @ 3.255 mls/ hr Q12H IV Last administered on 10:07; Admin Dose 32.55 MLS/HR; Start 12/20/16 at 20:30 Hydralazine HCl (Apresoline) 10 mg Q4H PRN IV sbp > 160 Last administered on 22:35; Admin Dose 10 MG; Start 12/22/16 at 06:30 Insulin Glargine 40 unit 40 unit DAILY@20 SC Last administered on 12/24/16 20: 53; Admin Dose 40 UNIT; Start 12/23/16 at 20:00 Methylprednisolone Sodium Succinate/ Sodium Chloride (Solu-Medrol/NS) 50 ml @ 100 mls/hr BID IV Last administered on 12/24/16 22:17; Admin Dose 100 MLS/HR; Start 12/23/16 at 21:00 Insulin Aspart (Novolog Insulin Pen) 14 unit Q6 SC Last administered on 12:23; Admin Dose 14 UNIT; Start 12/24/16 at 12:00 Insulin Aspart (Novolog Insulin Pen) NOVOLOG *MODERATE* ALGORI... Q6 SC Last administered on 12/25/16 12:27; Admin Dose 4 UNIT; Start 12/24/16 at 18:00 Lorazepam (Ativan) 1 mg Q1H PRN IV agitation; Start 12/25/16 at 03:30 Carvedilol (Coreg) 25 mg BID PO Last administered on 12/25/16 08:56; Admin Dose 25 MG; Start 12/25/16 at 09:00 Hydralazine HCl (Apresoline) 50 mg Q8 PO Last administered on 12/25/16 07:15; Admin Dose 50 MG; Start 12/25/16 at 06:00 VI ADAMES December 25, 2016 12:49
[2016-12-25] MEDS: LEVOFLOXACIN 250MG/D5W (PMX) 50 ML IVPB SCH (14:06)
--- NOTE | 2016-12-25 14:11 | PN ---
DATE: 12/25/2016 SUBJECTIVE: No acute changes overnight. The patient is lying comfortably in bed. He is intubated and sedated. VITAL SIGNS: Temperature 99.3, pulse 72, respirations 24, blood pressure 152/73, saturation 96% on 100 FIO2. LABORATORY DATA: WBC 11.6, H and H 10.7 and 33.3, platelets 277, neutrophils 83. BUN 56, creatinin e 1.62. INDWELLINGS: Endotracheal tube, NG tube, Ritchie catheter. PICC line placed on 12/18/2016. MICROBIOLOGY: All cultures since admission have been negative. ANTIMICROBIALS: The patient is on IV: 1. Levaquin. 2. Rocephin. PHYSICAL EXAMINATION: GENERAL: Morbidly obese, well-developed, middle-aged man who is in no distress. HEENT: Head atraumatic, normocephalic. Sclerae anicteric. Buccal mucosa dry. NECK: Supple. Trachea midline. CHEST: Rises symmetrically. Breath sounds diminished at bases. HEART: S1, S2. ABDOMEN: Obese, soft. Bowel sounds present. EXTREMITIES: Without cyanosis. SKIN: No jaundice. No cyanosis. ASSESSMENT: 1. Acute respiratory failure. Patient remains intubated, completing antibiotics. 2. Diabetes. 3. Hypertension. 4. Positive DAISY, significance unclear. Rheumatology on case. 5. Acute kidney injury, questionable acute tubular necrosis due to shock and sepsis. 6. Morbid obesity. 7. History of polysubstance abuse. PLAN: The patient remains hemodynamically stable, completing antibiotics. He is being followed by multiple consultants. Vent management as per pulmonary. Dictated By: YOLETTE RODRIGUEZ [employer] WORK[employer] miguelina ROSE/SUNDEEP Conf#: [id number] DID#: [id number]
--- NOTE | 2016-12-25 15:36 | RADRPT ---
PROCEDURE: XR Chest. CLINICAL INDICATION: Shortness of breath. TECHNIQUE: Single frontal view. COMPARISON: 12/23/2016. FINDINGS: The endotracheal tube, nasogastric tube, and left arm PICC line remain in satisfactory position. Mi ld pulmonary edema is worse than seen previously. There is atelectasis at the lung bases, worse than seen previously. The lungs are otherwise clear. The heart is mildly enlarged. There are small bilateral pleural effusions. There is no pneumothorax. IMPRESSION: 1. Worse appearance of the lungs and larger bilateral pleural effusions. RPTAT: QQ .Chon Carcamo MD, MD Date Time Electronically viewed and signed by .Chon Carcamo MD, MD on 12/25/2016 15:35 .R/
[2016-12-25] MEDS: CEFTRIAXONE 1 GM/50 ML (PMX) 50 ML IVPB SCH (16:42)
--- NOTE | 2016-12-25 18:16 | CONS ---
Date/Time of Note Date/Time of Note DATE: 12/25/16 TIME: 18:10 Consult Date/Type/Reason Admit Date/Time Dec 15, 2016 at 11:20 Initial Consult Date Type of Consultation: Rheum Ordering Provider: LEXII REED Subjective Patient continues sedated/intubated Objective Vital Signs Date Time Temp Pulse Resp B/P Pulse Ox O2 Delivery O2 Flow Rate FiO2 12/25/16 17:00 58 24 138/63 98 Mechanical Ventilator 12/25/16 16:00 98.7 12/25/16 15:40 100 Intake and Output 12/24/16 12/24/16 12/25/16 15:00 23:00 07:00 Intake Total 1300.40 ml 1175.30 ml 1343.00 ml Output Total 800 ml 1700 ml 725 ml Balance 500.40 ml -524.70 ml 618.00 ml Exam Sedated, intubated. Skin without acute lesions. Chest scattered crackles. Heart RRR Abd soft. Ext. No synovitis. Results/Medications Result Diagram: 12/25/16 0600 12/25/16 0600 Results 24 hrs Laboratory Tests Test 12/24/16 20:42 12/25/16 00:27 12/25/16 05:29 12/25/16 06:00 Bedside Glucose 173 186 244 H White Blood Count 11.6 H Red Blood Count 3.85 L Hemoglobin 10.7 L Hematocrit 33.3 L Mean Corpuscular Volume 86.5 Mean Corpuscular Hemoglobin 27.8 L Mean Corpuscular Hemoglobin Concent 32.1 Red Cell Distribution Width 13.2 Platelet Count 277 Mean Platelet Volume 11.3 H Neutrophils % 83.0 H Lymphocytes % 2.9 L Monocytes % 4.0 Eosinophils % 0.0 Basophils % 0.3 Nucleated Red Blood Cells % 0.0 Neutrophils # 9.6 H Lymphocytes # 0.3 L Monocytes # 0.5 Eosinophils # 0.0 Basophils # 0.0 Nucleated Red Blood Cells # 0.0 Erythrocyte Sedimentation Rate 83 H Sodium Level 145 H Potassium Level 3.7 Chloride Level 110 Carbon Dioxide Level 28 Anion Gap 11 Blood Urea Nitrogen 56 H Creatinine 1.62 H Glucose Level 271 H Calcium Level 7.3 L C-Reactive Protein 1.6 H Test 12/25/16 10:18 12/25/16 12:20 12/25/16 17:57 Blood Gas Specimen Source Blood arterial Arterial Blood Date Drawn 12/25/2016 11:10:51 AM Arterial Blood pH (Temp corrected) 7.419 Arterial Blood pCO2 (Temp correct) 43.6 Arterial Blood pO2 (Temp corrected) 99.0 Arterial Blood HCO3 27.6 H Arterial Blood Base Excess 2.7 Arterial Blood Oxygen Saturation 96.7 Leobardo Test ACCEPTAB Arterial Blood Gas Puncture Site Right Radial Arterial Blood Carboxyhemoglobin 0.2 Arterial Blood Methemoglobin 0.6 Blood Gas A-a O2 Differential 570.4 H Oxyhemoglobin Percent 95.9 Total Hemoglobin 11.7 L Blood Gas Temperature 37.0 Blood Gas Respiration Rate 24.0 Blood Gas Actual Respiration Rate 24 Blood Gas Modality VENT - AC FiO2 100.0 Blood Gas Tidal Volume 500.0 Blood Gas Low PEEP Setting 8.0 Blood Gas Notified Whom JLD Blood Gas Notified Time 12/25/2016 11:27:27 AM Bedside Glucose 256 H 252 H Medications Current Medications Ondansetron HCl (Zofran Inj) 4 mg Q6H PRN IV NAUSEA AND/OR VOMITING; Start at 13:00 Acetaminophen (Tylenol Tab) 650 mg Q6H PRN PO PAIN LEVEL 1-3 OR FEVER Last administered on 12/25/16 03:33; Admin Dose 650 MG; Start 12/15/16 at 13:00 Acetaminophen/ Hydrocodone Bitart ([place] (5/325)) 1 tab Q6H PRN PO PAIN LEVEL 4 -6 Last administered on 12/15/16 22:08; Admin Dose 1 TAB; Start 12/15/16 at 13: 00 Morphine Sulfate (morphine) 2 mg Q4H PRN IV PAIN LEVEL 7-10 Last administered on 12/25/16 03:03; Admin Dose 2 MG; Start 12/15/16 at 13:00 Magnesium Hydroxide (Milk Of Mag) 30 ml DAILY PRN PO CONSTIPATION; Start at 13:00 Bisacodyl (Dulcolax) 5 mg DAILY PRN PO CONSTIPATION; Start 12/15/16 at 13:00 Famotidine (Pepcid) 20 mg Q12 PO Last administered on 12/25/16 08:56; Admin Dose 20 MG; Start 12/15/16 at 21:00 Hydralazine HCl (Apresoline) 10 mg Q6H PRN IV SBP>160 Last administered on 08:55; Admin Dose 10 MG; Start 12/15/16 at 13:00 Aspirin (Aspirin) 325 mg DAILY PO Last administered on 12/25/16 08:55; Admin Dose 325 MG; Start 12/16/16 at 09:00 Atorvastatin Calcium 80 mg 80 mg QHS PO Last administered on 12/24/16 20:35; Admin Dose 80 MG; Start 12/15/16 at 21:00 Ceftriaxone Sodium (Rocephin) 50 ml @ 100 mls/hr Q24H IVPB Last administered on 12/25/16 16:42; Admin Dose 100 MLS/HR; Start 12/15/16 at 15:00 Heparin Sodium (Porcine) (Heparin (5000 Units/0.5 ml)) 5,000 unit BID SC Last administered on 12/25/16 08:58; Admin Dose 5,000 UNIT; Start 12/15/16 at 21:00 Miscellaneous Information 1 ea NOTE XX ; Start 12/15/16 at 14:00 Glucose (Glutose) 15 gm Q15M PRN PO DECREASED GLUCOSE; Start 12/15/16 at 14:00 Glucose (Glutose) 22.5 gm Q15M PRN PO DECREASED GLUCOSE; Start 12/15/16 at 14: 00 Glucagon (Glucagen) 1 mg Q15M PRN IM DECREASED GLUCOSE; Start 12/15/16 at 14:00 Glucose (Glutose) 15 gm Q15M PRN BUCCAL DECREASED GLUCOSE; Start 12/15/16 at 14 :00 Cholecalciferol 1000 unit 1,000 unit DAILY PO Last administered on 12/25/16 08: 56; Admin Dose 1,000 UNIT; Start 12/16/16 at 09:00 Fentanyl 100 ml @ 2.5 mls/hr TITRATE IV Last administered on 12/25/16 17:30; Admin Dose 10 MLS/HR; Start 12/18/16 at 03:30 Levofloxacin/ Dextrose (Levaquin 250 Mg/ D5W 50 ml (Pmx)) 50 ml @ 50 mls/hr Q24H IVPB Last administered on 12/25/16 14:06; Admin Dose 50 MLS/HR; Start at 14:00 Dextrose (D50w Syringe) 25 ml Q15M PRN IV Till BS 80 mg/dL or above x2; Start 12/18/16 at 14:00 Dextrose (D50w Syringe) 50 ml Q15M PRN IV Till BS 80 mg/dL or above x2; Start 12/18/16 at 14:00 IV Flush 10 ml 10 ml PRN PRN IV IV PROTOCOL; Start 12/18/16 at 17:00 Norepinephrine 32 mg/Dextrose 250 ml @ 0.46 mls/hr TITRATE IV ; Start 12/19/16 at 09:30 Potassium Chloride/Sodium Chloride (1/2 NS + KCl 20 Meq) 1,000 ml @ 20 mls/hr Q24H IV Last administered on 12/24/16 23:07; Admin Dose 20 MLS/HR; Start 12/20 at 08:30 Amlodipine Besylate 5 mg 5 mg DAILY PO Last administered on 12/25/16 08:56; Admin Dose 5 MG; Start 12/21/16 at 09:00 Midazolam HCl 50 ml @ 1 mls/hr TITRATE IV Last administered on 12/25/16 17:29; Admin Dose 10 MLS/HR; Start 12/20/16 at 14:00 Propofol (Diprivan) 100 ml @ 3.255 mls/ hr Q12H IV Last administered on 16:43; Admin Dose 32.55 MLS/HR; Start 12/20/16 at 20:30 Hydralazine HCl (Apresoline) 10 mg Q4H PRN IV sbp > 160 Last administered on 22:35; Admin Dose 10 MG; Start 12/22/16 at 06:30 Insulin Glargine 40 unit 40 unit DAILY@20 SC Last administered on 12/24/16 20: 53; Admin Dose 40 UNIT; Start 12/23/16 at 20:00 Methylprednisolone Sodium Succinate/ Sodium Chloride (Solu-Medrol/NS) 50 ml @ 100 mls/hr BID IV Last administered on 12/24/16 22:17; Admin Dose 100 MLS/HR; Start 12/23/16 at 21:00 Insulin Aspart (Novolog Insulin Pen) 14 unit Q6 SC Last administered on 18:04; Admin Dose 14 UNIT; Start 12/24/16 at 12:00 Insulin Aspart (Novolog Insulin Pen) NOVOLOG *MODERATE* ALGORI... Q6 SC Last administered on 12/25/16 18:07; Admin Dose 6 UNIT; Start 12/24/16 at 18:00 Lorazepam (Ativan) 1 mg Q1H PRN IV agitation; Start 12/25/16 at 03:30 Hydralazine HCl (Apresoline) 50 mg Q8 PO Last administered on 12/25/16 14:06; Admin Dose 50 MG; Start 12/25/16 at 06:00 Carvedilol (Coreg) 6.25 mg BID PO ; Start 12/25/16 at 21:00 Assessment/Plan Chief Complaint/Hosp Course 1. Positive DAISY of unclear significance so far. No definite evidence of vasculitis, but on steroids. C-RP much lower. 2. Respiratory failure. 3. Renal insufficiency Much improved. 4. Diabetes mellitus. Glucose increased on steroids. 5. Hypertension. Rec. Steroid dose per pulmonary Problems: ELIZABETH PUCKETT MD December 25, 2016 18:16
[2016-12-25] MEDS: ATORVASTATIN 80 MG TAB PO SCH (20:31)
[2016-12-25] MEDS: SOD CHLORIDE 0.9% IV SCH (20:31)
[2016-12-25] MEDS: METHYLPRED NA SUCC IV SCH (20:31)
[2016-12-25] MEDS: INSULIN GLARGINE [LANtus] 3 ML PEN SC SCH (20:33)
[2016-12-25] MEDS: 1/2 NS + KCL 20 MEQ 1,000 ML IV SCH (22:30)
[2016-12-26] VITALS (36 sets, daily range): BP systolic 114–176; BP diastolic 53–76; PULSE 70–88; RESP 24–31
[2016-12-26] MEDS: INSULIN ASPART [NOVOLOG] 3 ML PEN SC SCH ×10 (00:10→23:59)
[2016-12-26] MEDS: hydrALAzine 20 MG INJ IV PRN ×2 (01:16→14:17)
[2016-12-26] MEDS: PROPOFOL 100 ML IV SCH ×5 (01:23→21:09)
[2016-12-26] MEDS: LEVALBUTEROL (HFA) 15 GM INHALER INH SCH ×4 (01:25→19:41)
[2016-12-26] MEDS: FENTAnyl (DRIP) 1000 mcg/100mL 100 ML IV SCH ×2 (03:20→14:26)
[2016-12-26] MEDS: MIDAZOLAM (DRIP) 50 mg/50 mL 50 ML IV SCH ×4 (03:21→22:46)
[2016-12-26 04:50] LABS: ADD SCAN DIFF NO
[2016-12-26 04:53] LABS: ABNORMAL IP MESSAGE 1; BASOPHILS % 0.1 % (0.0-2.0); EOSINOPHILS % 0.1 % (0.0-7.0); HEMATOCRIT 33.4 % (42.0-52.0); HEMOGLOBIN 10.2 g/dl (14.0-18.0); LYMPHOCYTES # 0.4 10^3/ul (0.8-2.9); LYMPHOCYTES % 2.9 % (15.0-51.0); MEAN CORPUSCULAR HEMOGLOBIN 26.8 pg (29.0-33.0); MEAN CORPUSCULAR HGB CONC 30.5 g/dl (32.0-37.0); MEAN CORPUSCULAR VOLUME 87.9 fl (82.0-101.0); MEAN PLATELET VOLUME 11.7 fl (7.4-10.4); MONOCYTE # 0.5 10^3/ul (0.3-0.9); MONOCYTES % 3.6 % (0.0-11.0); NEUTROPHIL # 12.9 10^3/ul (1.6-7.5); NEUTROPHILS % 87.2 % (39.0-77.0); PLATELET COUNT 274 10^3/UL (140-415); RED CELL DISTRIBUTION WIDTH 13.6 % (11.5-14.5); WHITE BLOOD COUNT 14.8 10^3/ul (4.8-10.8)
[2016-12-26 05:15] LABS: MAGNESIUM 2.2 mg/dl (1.7-2.5); PHOSPHORUS 3.5 mg/dl (2.5-4.9)
[2016-12-26 05:16] LABS: POTASSIUM 3.8 mmol/L (3.5-5.1)
[2016-12-26 05:18] LABS: CREATININE 1.56 mg/dl (0.61-1.24)
[2016-12-26 05:19] LABS: CALCIUM 7.4 mg/dl (8.4-10.2)
[2016-12-26] MEDS: FUROSEMIDE 40 MG INJ IV SCH ×2 (05:21→18:04)
--- NOTE | 2016-12-26 07:16 | PN ---
Date/Time of Note Date/Time of Note DATE: 12/26/16 TIME: 07:15 Assessment/Plan VTE Prophylaxis VTE Prophylaxis Intervention: heparin Lines/Catheters IV Catheter Type (from [facility] PICC Line Central line still needed: Yes Urinary Cath still in place: Yes Reason Cath still needed: other (indicate) Assessment/Plan Chief Complaint/Hosp Course 1. Sepsis secondary to underlying community-acquired pneumonia with septic shock. Currently off pressors. On ABX as per ID. Mycoplasma serology abnormal. 2. Acute hypoxic respiratory failure. Most probably secondary to underlying pneumonia versus others. Patient got intubated on 12/18/2016. Continue inhaled bronchodilators. Pulmonology following the patient. 3. Elevated troponins. Most probably a type 2 event from underlying sepsis and underlying acute kidney injury. Cardiology following. 4. Acute kidney injury. The patient had a normal creatinine of 1.00 on 2015. The patient's current acute kidney injury could be most probably secondary to dehydration from persistent vomiting. The patient's nephrotoxic drugs will be held at this time. Being followed by nephrology. 5. Type 2 diabetes mellitus. Uncontrolled. A1C is high (send out). The patient will be maintained on sliding scale insulin along with basal insulin. 6. Dyslipidemia. Continue statins. 7. Essential hypertension. Continue antihypertensives. 8. Hypocalcemia. Probably secondary to underlying hypoalbuminemia. 9. Microcytic, hypochromic anemia. Etiology unclear. Iron panel showing iron deficiency. Continue iron supplements. 10. Vitamin D deficiency. Continue supplements. 11. Fluids, electrolytes, and nutrition. Tube feedings. 12. DVT prophylaxis. Subcutaneous heparin. 13. Gastrointestinal prophylaxis. Histamine 2 receptor blockers. 14. Plan. Continue antibiotics. Continue ventilator support. Appreciate Rheumatology inputs. Case discussed with Dr. Perez. Critical care time: 35 minutes. Problems: Subjective 24 Hr Interval Summary Free Text/Dictation Remains on 85% FiO2. Exam/Review of Systems Vital Signs Vitals Vital Signs Date Time Temp Pulse Resp B/P Pulse Ox O2 Delivery O2 Flow Rate FiO2 12/26/16 07:06 85 12/26/16 06:00 74 24 145/60 96 Mechanical Ventilator 12/26/16 04:00 98.4 Intake and Output 12/25/16 12/25/16 12/26/16 15:00 23:00 07:00 Intake Total 1630.8 ml 1508.7 ml 1105.0 ml Output Total 1250 ml 815 ml 600 ml Balance 380.8 ml 693.7 ml 505.0 ml Exam GENERAL: This is a morbidly obese male lying in bed, orally intubated and mechanically ventilated. HEENT: Head normocephalic and atraumatic. Eyes: Anicteric sclerae. Conjunctivae clear. ENT: Nasal septum is midline. Oral mucosa is dry. NECK: Short with increased neck circumference. RESPIRATORY: Bilaterally diminished breath sounds. On mechanical ventilator. On 100% FiO2 with a PEEP of 8. CARDIAC: Regular rate and rhythm. S1, S2 heard. ABDOMEN: Soft, nontender and nondistended. Bowel sounds positive in all 4 quadrants. GENITOURINARY: Deferred. EXTREMITIES: No cyanosis, no clubbing. B/L LE edema. Pedal pulses palpable. Status post left great toe amputation. NEUROLOGIC: The patient is currently sedated. Results Result Diagram: 12/26/16 0400 12/26/16 0400 Results 24 hrs Laboratory Tests Test 12/25/16 10:18 12/25/16 12:20 12/25/16 17:57 12/26/16 00:05 Blood Gas Specimen Source Blood arterial Arterial Blood Date Drawn 12/25/2016 11:10:51 AM Arterial Blood pH (Temp corrected) 7.419 Arterial Blood pCO2 (Temp correct) 43.6 Arterial Blood pO2 (Temp corrected) 99.0 Arterial Blood HCO3 27.6 H Arterial Blood Base Excess 2.7 Arterial Blood Oxygen Saturation 96.7 Leobardo Test ACCEPTAB Arterial Blood Gas Puncture Site Right Radial Arterial Blood Carboxyhemoglobin 0.2 Arterial Blood Methemoglobin 0.6 Blood Gas A-a O2 Differential 570.4 H Oxyhemoglobin Percent 95.9 Total Hemoglobin 11.7 L Blood Gas Temperature 37.0 Blood Gas Respiration Rate 24.0 Blood Gas Actual Respiration Rate 24 Blood Gas Modality VENT - AC FiO2 100.0 Blood Gas Tidal Volume 500.0 Blood Gas Low PEEP Setting 8.0 Blood Gas Notified Whom JLD Blood Gas Notified Time 12/25/2016 11:27:27 AM Bedside Glucose 256 H 252 H 185 Test 12/26/16 04:00 12/26/16 05:23 White Blood Count 14.8 #H Red Blood Count 3.80 L Hemoglobin 10.2 L Hematocrit 33.4 L Mean Corpuscular Volume 87.9 Mean Corpuscular Hemoglobin 26.8 L Mean Corpuscular Hemoglobin Concent 30.5 L Red Cell Distribution Width 13.6 Platelet Count 274 Mean Platelet Volume 11.7 H Neutrophils % 87.2 H Lymphocytes % 2.9 L Monocytes % 3.6 Eosinophils % 0.1 Basophils % 0.1 Nucleated Red Blood Cells % 0.0 Neutrophils # 12.9 H Lymphocytes # 0.4 L Monocytes # 0.5 Eosinophils # 0.0 Basophils # 0.0 Nucleated Red Blood Cells # 0.0 Sodium Level 145 H Potassium Level 3.8 Chloride Level 110 Carbon Dioxide Level 29 Anion Gap 10 Blood Urea Nitrogen 62 H Creatinine 1.56 H Glucose Level 188 Calcium Level 7.4 L Phosphorus Level 3.5 Magnesium Level 2.2 Bedside Glucose 187 Medications Medications Current Medications Ondansetron HCl (Zofran Inj) 4 mg Q6H PRN IV NAUSEA AND/OR VOMITING; Start at 13:00 Acetaminophen (Tylenol Tab) 650 mg Q6H PRN PO PAIN LEVEL 1-3 OR FEVER Last administered on 12/25/16 03:33; Admin Dose 650 MG; Start 12/15/16 at 13:00 Acetaminophen/ Hydrocodone Bitart ([place] (5/325)) 1 tab Q6H PRN PO PAIN LEVEL 4 -6 Last administered on 12/15/16 22:08; Admin Dose 1 TAB; Start 12/15/16 at 13: 00 Morphine Sulfate (morphine) 2 mg Q4H PRN IV PAIN LEVEL 7-10 Last administered on 12/25/16 03:03; Admin Dose 2 MG; Start 12/15/16 at 13:00 Magnesium Hydroxide (Milk Of Mag) 30 ml DAILY PRN PO CONSTIPATION; Start at 13:00 Bisacodyl (Dulcolax) 5 mg DAILY PRN PO CONSTIPATION; Start 12/15/16 at 13:00 Famotidine (Pepcid) 20 mg Q12 PO Last administered on 12/25/16 20:31; Admin Dose 20 MG; Start 12/15/16 at 21:00 Hydralazine HCl (Apresoline) 10 mg Q6H PRN IV SBP>160 Last administered on 01:16; Admin Dose 10 MG; Start 12/15/16 at 13:00 Aspirin (Aspirin) 325 mg DAILY PO Last administered on 12/25/16 08:55; Admin Dose 325 MG; Start 12/16/16 at 09:00 Atorvastatin Calcium 80 mg 80 mg QHS PO Last administered on 12/25/16 20:31; Admin Dose 80 MG; Start 12/15/16 at 21:00 Ceftriaxone Sodium (Rocephin) 50 ml @ 100 mls/hr Q24H IVPB Last administered on 12/25/16 16:42; Admin Dose 100 MLS/HR; Start 12/15/16 at 15:00 Heparin Sodium (Porcine) (Heparin (5000 Units/0.5 ml)) 5,000 unit BID SC Last administered on 12/25/16 20:33; Admin Dose 5,000 UNIT; Start 12/15/16 at 21:00 Miscellaneous Information 1 ea NOTE XX ; Start 12/15/16 at 14:00 Glucose (Glutose) 15 gm Q15M PRN PO DECREASED GLUCOSE; Start 12/15/16 at 14:00 Glucose (Glutose) 22.5 gm Q15M PRN PO DECREASED GLUCOSE; Start 12/15/16 at 14: 00 Glucagon (Glucagen) 1 mg Q15M PRN IM DECREASED GLUCOSE; Start 12/15/16 at 14:00 Glucose (Glutose) 15 gm Q15M PRN BUCCAL DECREASED GLUCOSE; Start 12/15/16 at 14 :00 Cholecalciferol 1000 unit 1,000 unit DAILY PO Last administered on 12/25/16 08: 56; Admin Dose 1,000 UNIT; Start 12/16/16 at 09:00 Fentanyl 100 ml @ 2.5 mls/hr TITRATE IV Last administered on 12/26/16 03:20; Admin Dose 10 MLS/HR; Start 12/18/16 at 03:30 Levofloxacin/ Dextrose (Levaquin 250 Mg/ D5W 50 ml (Pmx)) 50 ml @ 50 mls/hr Q24H IVPB Last administered on 12/25/16 14:06; Admin Dose 50 MLS/HR; Start at 14:00 Dextrose (D50w Syringe) 25 ml Q15M PRN IV Till BS 80 mg/dL or above x2; Start 12/18/16 at 14:00 Dextrose (D50w Syringe) 50 ml Q15M PRN IV Till BS 80 mg/dL or above x2; Start 12/18/16 at 14:00 IV Flush 10 ml 10 ml PRN PRN IV IV PROTOCOL; Start 12/18/16 at 17:00 Norepinephrine 32 mg/Dextrose 250 ml @ 0.46 mls/hr TITRATE IV ; Start 12/19/16 at 09:30 Potassium Chloride/Sodium Chloride (1/2 NS + KCl 20 Meq) 1,000 ml @ 20 mls/hr Q24H IV Last administered on 12/25/16 22:30; Admin Dose 20 MLS/HR; Start at 08:30 Amlodipine Besylate 5 mg 5 mg DAILY PO Last administered on 12/25/16 08:56; Admin Dose 5 MG; Start 12/21/16 at 09:00 Midazolam HCl 50 ml @ 1 mls/hr TITRATE IV Last administered on 12/26/16 03:21; Admin Dose 10 MLS/HR; Start 12/20/16 at 14:00 Propofol (Diprivan) 100 ml @ 3.255 mls/ hr Q12H IV Last administered on 05:20; Admin Dose 26.04 MLS/HR; Start 12/20/16 at 20:30 Hydralazine HCl (Apresoline) 10 mg Q4H PRN IV sbp > 160 Last administered on 22:35; Admin Dose 10 MG; Start 12/22/16 at 06:30 Insulin Glargine 40 unit 40 unit DAILY@20 SC Last administered on 12/25/16 20: 33; Admin Dose 40 UNIT; Start 12/23/16 at 20:00 Methylprednisolone Sodium Succinate/ Sodium Chloride (Solu-Medrol/NS) 50 ml @ 100 mls/hr BID IV Last administered on 12/25/16 20:31; Admin Dose 100 MLS/HR; Start 12/23/16 at 21:00 Insulin Aspart (Novolog Insulin Pen) 14 unit Q6 SC Last administered on 05:29; Admin Dose 14 UNIT; Start 12/24/16 at 12:00 Insulin Aspart (Novolog Insulin Pen) NOVOLOG *MODERATE* ALGORI... Q6 SC Last administered on 12/26/16 05:30; Admin Dose 4 UNIT; Start 12/24/16 at 18:00 Lorazepam (Ativan) 1 mg Q1H PRN IV agitation; Start 12/25/16 at 03:30 Hydralazine HCl (Apresoline) 50 mg Q8 PO Last administered on 12/26/16 05:20; Admin Dose 50 MG; Start 12/25/16 at 06:00 Carvedilol (Coreg) 6.25 mg BID PO Last administered on 12/25/16 20:31; Admin Dose 6.25 MG; Start 12/25/16 at 21:00 GEORGI CORBETT NP December 26, 2016 07:16
[2016-12-26] MEDS: SEVELAMER CARBONATE 2.4 GM PKT PO SCH ×3 (07:45→17:00)
[2016-12-26 08:14] LABS: AADO2 Arterial 488.2 mmHg (7.0-24.0); Allen Test ACCEPTAB; Arterial Base Excess 3.9 mmol/L (-3.0-3); Arterial COHb 0.3 % (0.0-3.0); Arterial Fraction of Oxyhgb 93.5 % (93.0-99.0); Arterial HCO3 28.8 mmol/L (22.0-26.0); Arterial MetHb 0.5 % (0.0-1.5); Arterial Total Hemglobin 11.8 g/dl (12.0-18.0); MODE VENT - AC
--- NOTE | 2016-12-26 08:28 | PN ---
DATE: 12/26/2016 SUBJECTIVE: The patient remains critically, on full ventilatory support. No other acute events ove rnight. No hemoptysis, hematemesis, or hematochezia. OBJECTIVE: VITAL SIGNS: Blood pressure 144/62, respirations 24, pulse 74, temperature 98.4. I'S AND O'S: The patient had 4.2 liters in, 2.6 liters out. HEENT: Head is normocephalic. NECK: Supple. HEART: Regular rate. LUNGS: Show diminished breath sounds at the base. ABDOMEN: Soft, nontender to palpation. EXTREMITIES: Negative for clubbing, cyanosis, +1 edema. DERMATOLOGIC: No rashes. MUSCULOSKELETAL: No joint effusions. NEUROLOGIC: No change in exam. MEDICATIONS: The patient's medications have been reviewed. LABORATORY DATA: Shows sodium 145, potassium 2.8, chloride 110, BUN 16, creatinine 1.56. White cou nt 14.9, hemoglobin 10.2, hematocrit 33.4, platelet count 274. Patient's ABG has been reviewed. IMAGING: Chest x-ray on December 25 shows also bilateral pleural effusions and mild pulmonary edema, wo rse than previously seen. ASSESSMENT AND PLAN: 1. Nonoliguric acute kidney injury with previous baseline creatinine 1.0 mg/dL, etiology of acute k idney injury secondary to acute tubular necrosis due to septic shock, sepsis. The patient's renal f unction has been slowly improving. As the patient appears to be in recovery phase of acute tubular necrosis. At this point, continue current treatment plan, supportive care, renally dose all meds, a void nephrotoxins. 2. Volume overload, likely secondary to acute kidney injury, sepsis, IV fluids, possible diastolic heart failure. The patient's chest x-ray shows worsening congestion. Plan is to continue Lasix 40 mg IV b.i.d. Will add metolazone 5 mg p.o. x1, monitor I's and O's closely. 3. Hypernatremia. Continue free water flushes, 400 mL q.4 hours. 4. Mineral bone disorder. Continue to monitor calcium and phosphorus levels. 5. Anemia. Continue to monitor hemoglobin and hematocrit levels. 6. Ventilatory-dependent respiratory failure, vent settings have been reviewed. ABG has been revie wed. Continue to monitor. 7. Sepsis, status post shock. Continue current antibiotic regimen. 8. Ugw-[id number] myocardial infarction. Continue current treatment plan. 9. Diabetes. Continue current insulin regimen. 10. History of polysubstance abuse. 11. Encephalopathy. No change. 12. Hypertension. Continue current blood pressure regimen. 13. Elevated troponin, possible [id number] myocardial infarction type 2. Continue current tr eatment plan. Please note I spent over 35 minutes of critical care time with this patient. Dictated By: LUIS JOSHI/SUNDEEP Conf#: [id number] DID#: [id number]
[2016-12-26] MEDS: SOD CHLORIDE 0.9% IV SCH (08:52)
[2016-12-26] MEDS: METHYLPRED NA SUCC IV SCH (08:52)
[2016-12-26] MEDS: ASPIRIN 325 MG TAB PO SCH (08:53)
[2016-12-26] MEDS: FAMOTIDINE 20 MG TAB PO SCH ×2 (08:53→21:15)
[2016-12-26] MEDS: CHOLECALCIFEROL 1,000 UNIT TAB PO SCH (08:53)
[2016-12-26] MEDS: AMLODIPINE 5 MG TAB PO SCH (08:53)
[2016-12-26] MEDS: HEPARIN 5,000 UNIT/0.5 ML VIAL SC SCH ×2 (08:55→21:14)
[2016-12-26] MEDS ORDERED: METOLAZONE 5 MG TAB PO SCH (09:30)
--- NOTE | 2016-12-26 09:35 | CONS ---
Date/Time of Note Date/Time of Note DATE: 12/26/16 TIME: 09:34 Consult Date/Type/Reason Admit Date/Time Dec 15, 2016 at 11:20 Type of Consultation: pulmonary ICU Ordering Provider: LEXII REED Subjective Patient remains intubated sedated on mechanical ventilation, improved oxygenation this morning with decreased FiO2 and PEEP Objective Vital Signs Date Time Temp Pulse Resp B/P Pulse Ox O2 Delivery O2 Flow Rate FiO2 12/26/16 08:00 85 12/26/16 07:00 75 144/62 96 Mechanical Ventilator 12/26/16 06:00 24 12/26/16 04:00 98.4 Intake and Output 12/25/16 12/25/16 12/26/16 15:00 23:00 07:00 Intake Total 1630.8 ml 1508.7 ml 1445.0 ml Output Total 1250 ml 815 ml 675 ml Balance 380.8 ml 693.7 ml 770.0 ml Exam PHYSICAL EXAMINATION GENERAL: Young gentleman intubated sedated on mechanical ventilation VITAL SIGNS: see below. HEENT: Pupils equal, round, and reactive to light. CARDIAC: S1, S2, no added sounds or murmurs CHEST: Diminished air entry bilaterally. ABDOMEN: Mildly distended. Bowel sounds present. EXTREMITIES: No cyanosis, clubbing edema +1 NEUROLOGIC: Unable to assess Results/Medications Result Diagram: 12/26/16 0400 12/26/16 0400 Results 24 hrs Chest x-ray right-sided infiltrate mild pulmonary edema Laboratory Tests Test 12/25/16 10:18 12/25/16 12:20 12/25/16 17:57 12/26/16 00:05 Blood Gas Specimen Source Blood arterial Arterial Blood Date Drawn 12/25/2016 11:10:51 AM Arterial Blood pH (Temp corrected) 7.419 Arterial Blood pCO2 (Temp correct) 43.6 Arterial Blood pO2 (Temp corrected) 99.0 Arterial Blood HCO3 27.6 H Arterial Blood Base Excess 2.7 Arterial Blood Oxygen Saturation 96.7 Leobardo Test ACCEPTAB Arterial Blood Gas Puncture Site Right Radial Arterial Blood Carboxyhemoglobin 0.2 Arterial Blood Methemoglobin 0.6 Blood Gas A-a O2 Differential 570.4 H Oxyhemoglobin Percent 95.9 Total Hemoglobin 11.7 L Blood Gas Temperature 37.0 Blood Gas Respiration Rate 24.0 Blood Gas Actual Respiration Rate 24 Blood Gas Modality VENT - AC FiO2 100.0 Blood Gas Tidal Volume 500.0 Blood Gas Low PEEP Setting 8.0 Blood Gas Notified Whom JLD Blood Gas Notified Time 12/25/2016 11:27:27 AM Bedside Glucose 256 H 252 H 185 Test 12/26/16 04:00 12/26/16 05:23 12/26/16 07:00 White Blood Count 14.8 #H Red Blood Count 3.80 L Hemoglobin 10.2 L Hematocrit 33.4 L Mean Corpuscular Volume 87.9 Mean Corpuscular Hemoglobin 26.8 L Mean Corpuscular Hemoglobin Concent 30.5 L Red Cell Distribution Width 13.6 Platelet Count 274 Mean Platelet Volume 11.7 H Neutrophils % 87.2 H Lymphocytes % 2.9 L Monocytes % 3.6 Eosinophils % 0.1 Basophils % 0.1 Nucleated Red Blood Cells % 0.0 Neutrophils # 12.9 H Lymphocytes # 0.4 L Monocytes # 0.5 Eosinophils # 0.0 Basophils # 0.0 Nucleated Red Blood Cells # 0.0 Sodium Level 145 H Potassium Level 3.8 Chloride Level 110 Carbon Dioxide Level 29 Anion Gap 10 Blood Urea Nitrogen 62 H Creatinine 1.56 H Glucose Level 188 Calcium Level 7.4 L Phosphorus Level 3.5 Magnesium Level 2.2 Bedside Glucose 187 Blood Gas Specimen Source Blood arterial Arterial Blood Date Drawn 12/26/2016 7:52:36 AM Arterial Blood pH (Temp corrected) 7.427 Arterial Blood pCO2 (Temp correct) 44.7 Arterial Blood pO2 (Temp corrected) 71.5 L Arterial Blood HCO3 28.8 H Arterial Blood Base Excess 3.9 H Arterial Blood Oxygen Saturation 94.3 L Leobardo Test ACCEPTAB Arterial Blood Gas Puncture Site Left Radial Arterial Blood Carboxyhemoglobin 0.3 Arterial Blood Methemoglobin 0.5 Blood Gas A-a O2 Differential 488.2 H Oxyhemoglobin Percent 93.5 Total Hemoglobin 11.8 L Blood Gas Temperature 37.0 Blood Gas Respiration Rate 24.0 Blood Gas Actual Respiration Rate 24 Blood Gas Modality VENT - AC FiO2 85.0 Blood Gas Tidal Volume 500.0 Blood Gas Low PEEP Setting 8.0 Blood Gas Notified Whom JLD Blood Gas Notified Time 12/26/2016 8:14:37 AM Medications Current Medications Ondansetron HCl (Zofran Inj) 4 mg Q6H PRN IV NAUSEA AND/OR VOMITING; Start at 13:00 Acetaminophen (Tylenol Tab) 650 mg Q6H PRN PO PAIN LEVEL 1-3 OR FEVER Last administered on 12/25/16 03:33; Admin Dose 650 MG; Start 12/15/16 at 13:00 Acetaminophen/ Hydrocodone Bitart ([place] (5/325)) 1 tab Q6H PRN PO PAIN LEVEL 4 -6 Last administered on 12/15/16 22:08; Admin Dose 1 TAB; Start 12/15/16 at 13: 00 Morphine Sulfate (morphine) 2 mg Q4H PRN IV PAIN LEVEL 7-10 Last administered on 12/25/16 03:03; Admin Dose 2 MG; Start 12/15/16 at 13:00 Magnesium Hydroxide (Milk Of Mag) 30 ml DAILY PRN PO CONSTIPATION; Start at 13:00 Bisacodyl (Dulcolax) 5 mg DAILY PRN PO CONSTIPATION; Start 12/15/16 at 13:00 Famotidine (Pepcid) 20 mg Q12 PO Last administered on 12/26/16 08:53; Admin Dose 20 MG; Start 12/15/16 at 21:00 Hydralazine HCl (Apresoline) 10 mg Q6H PRN IV SBP>160 Last administered on 01:16; Admin Dose 10 MG; Start 12/15/16 at 13:00 Aspirin (Aspirin) 325 mg DAILY PO Last administered on 12/26/16 08:53; Admin Dose 325 MG; Start 12/16/16 at 09:00 Atorvastatin Calcium 80 mg 80 mg QHS PO Last administered on 12/25/16 20:31; Admin Dose 80 MG; Start 12/15/16 at 21:00 Ceftriaxone Sodium (Rocephin) 50 ml @ 100 mls/hr Q24H IVPB Last administered on 12/25/16 16:42; Admin Dose 100 MLS/HR; Start 12/15/16 at 15:00 Heparin Sodium (Porcine) (Heparin (5000 Units/0.5 ml)) 5,000 unit BID SC Last administered on 12/26/16 08:55; Admin Dose 5,000 UNIT; Start 12/15/16 at 21:00 Miscellaneous Information 1 ea NOTE XX ; Start 12/15/16 at 14:00 Glucose (Glutose) 15 gm Q15M PRN PO DECREASED GLUCOSE; Start 12/15/16 at 14:00 Glucose (Glutose) 22.5 gm Q15M PRN PO DECREASED GLUCOSE; Start 12/15/16 at 14: 00 Glucagon (Glucagen) 1 mg Q15M PRN IM DECREASED GLUCOSE; Start 12/15/16 at 14:00 Glucose (Glutose) 15 gm Q15M PRN BUCCAL DECREASED GLUCOSE; Start 12/15/16 at 14 :00 Cholecalciferol 1000 unit 1,000 unit DAILY PO Last administered on 12/26/16 08: 53; Admin Dose 1,000 UNIT; Start 12/16/16 at 09:00 Fentanyl 100 ml @ 2.5 mls/hr TITRATE IV Last administered on 12/26/16 03:20; Admin Dose 10 MLS/HR; Start 12/18/16 at 03:30 Levofloxacin/ Dextrose (Levaquin 250 Mg/ D5W 50 ml (Pmx)) 50 ml @ 50 mls/hr Q24H IVPB Last administered on 12/25/16 14:06; Admin Dose 50 MLS/HR; Start at 14:00 Dextrose (D50w Syringe) 25 ml Q15M PRN IV Till BS 80 mg/dL or above x2; Start 12/18/16 at 14:00 Dextrose (D50w Syringe) 50 ml Q15M PRN IV Till BS 80 mg/dL or above x2; Start 12/18/16 at 14:00 IV Flush 10 ml 10 ml PRN PRN IV IV PROTOCOL; Start 12/18/16 at 17:00 Norepinephrine/ Dextrose (Levophed/D5W) 250 ml @ 0.46 mls/hr TITRATE IV ; Start 12/19/16 at 09:30 Amlodipine Besylate 5 mg 5 mg DAILY PO Last administered on 12/26/16 08:53; Admin Dose 5 MG; Start 12/21/16 at 09:00 Midazolam HCl 50 ml @ 1 mls/hr TITRATE IV Last administered on 12/26/16 03:21; Admin Dose 10 MLS/HR; Start 12/20/16 at 14:00 Propofol (Diprivan) 100 ml @ 3.255 mls/ hr Q12H IV Last administered on 05:20; Admin Dose 26.04 MLS/HR; Start 12/20/16 at 20:30 Hydralazine HCl (Apresoline) 10 mg Q4H PRN IV sbp > 160 Last administered on 22:35; Admin Dose 10 MG; Start 12/22/16 at 06:30 Insulin Glargine 40 unit 40 unit DAILY@20 SC Last administered on 12/25/16 20: 33; Admin Dose 40 UNIT; Start 12/23/16 at 20:00 Methylprednisolone Sodium Succinate/ Sodium Chloride (Solu-Medrol/NS) 50 ml @ 100 mls/hr BID IV Last administered on 12/26/16 08:52; Admin Dose 100 MLS/HR; Start 12/23/16 at 21:00 Insulin Aspart (Novolog Insulin Pen) 14 unit Q6 SC Last administered on 05:29; Admin Dose 14 UNIT; Start 12/24/16 at 12:00 Insulin Aspart (Novolog Insulin Pen) NOVOLOG *MODERATE* ALGORI... Q6 SC Last administered on 12/26/16 05:30; Admin Dose 4 UNIT; Start 12/24/16 at 18:00 Lorazepam (Ativan) 1 mg Q1H PRN IV agitation; Start 12/25/16 at 03:30 Hydralazine HCl (Apresoline) 50 mg Q8 PO Last administered on 12/26/16 05:20; Admin Dose 50 MG; Start 12/25/16 at 06:00 Carvedilol (Coreg) 6.25 mg BID PO Last administered on 12/26/16 08:53; Admin Dose 6.25 MG; Start 12/25/16 at 21:00 Metolazone (Zaroxolyn) 5 mg ONCE PO ; Start 12/26/16 at 09:30; Stop 12/26/16 at 12 :30 Assessment/Plan Chief Complaint/Hosp Course Assessment 1. Acute hypoxemic respiratory failure possible healthcare associated pneumonia with underlying pulmonary edema 2. Workup for vasculitis will decrease steroids. Appreciate rheumatology recommendations. 3. Diabetes mellitus 4. Renal insufficiency possible ATN injury Plan 1. Continue mechanical ventilation 2. Decrease FiO2 as tolerated 3. Continues empiric steroids consider decreasing dose if no evidence of vasculitis. 4. Continue broad-spectrum antibiotics 5. Appreciate renal recommendations agree with addition of metolazone to Lasix Disposition Family discussion today updated with goals of care. Continue ICU care Critical care time 40 minutes Problems: VERO SOTO MD, FCCP December 26, 2016 09:35
[2016-12-26] MEDS: METHYLPREDNISOLONE 125 MG INJ IV SCH ×3 (10:14→21:19)
--- NOTE | 2016-12-26 12:19 | PN ---
DATE: 12/26/2016 SUBJECTIVE: No acute events per discussion with nursing staff. The patient is lying comfortably in bed, intubated, sedated. No fevers. VITAL SIGNS: Temperature 98.4, pulse 75, respirations 24, blood pressure 144/62, saturation 96% on vent. LABORATORY DATA: WBC 14.8, H and H 10.2 and 33.4, platelets 274, neutrophils 87.2, BUN 65, creatini ne 1.56. MICROBIOLOGY: Cultures have been negative since admission. Sputum culture from yesterday pending. ANTIMICROBIALS: The patient is on: 1. Levaquin. 2. Rocephin. INDWELLINGS: Endotracheal tube, NG tube, Ritchie catheter, PICC line placed on 12/18/2016. PHYSICAL EXAMINATION: GENERAL: This is an obese, well-developed, middle-aged man who is in no distress. HEENT: Head atraumatic, normocephalic. Sclerae anicteric. Buccal mucosa dry. NECK: Supple. CHEST: Rise symmetrical. Breath sounds clear, diminished to bases. HEART: S1, S2. ABDOMEN: Soft, bowel tones present. EXTREMITIES: Without cyanosis. Bilateral trace edema. ASSESSMENT: 1. Acute respiratory failure. 2. Large bilateral pleural effusions. 3. Diabetes. 4. Hypertension. 5. Persistent leukocytosis, patient remains on steroids. 6. Morbid obesity. 7. Acute kidney injury, possibly secondary to acute tubular necrosis due to shock and sepsis. 8. Positive antinuclear antibodies, Rheumatology follows. PLAN: The patient remains stable, completed antibiotics. We are going to stop antibiotics today an d observe him and panculture p.r.n. Follow recommendations of consultants. Dictated By: YOLETTE RODRIGUEZ LANDSCAPE SPECIALIST for DANUTA AYOUB MD NI/NTS Conf#: [id number] DID#: [id number]
--- NOTE | 2016-12-26 13:26 | RADRPT ---
PROCEDURE: XR Chest. CLINICAL INDICATION: CHF. Dyspnea. Follow up. TECHNIQUE: Single frontal chest x-ray. COMPARISON: Chest x-ray dated 12/25/2016 FINDINGS: Moderate CHF is seen, minimally improved when compared to the prior study. There is minimal subtle improved aeration in the upper lung regions bilaterally. Consolidation and small effusion is seen i n the right lung base, stable over time. Bibasilar atelectasis is present. There is likely a left b asilar pleural effusion as well, improved in the interim. The cardiomediastinal silhouette is unrem arkable. Endotracheal tube and nasogastric tube are both identified in stable and good location. T here is no evidence for pneumothorax. Left-sided PICC line is seen with the tip in the superior lawson a cava. Endotracheal tube and nasogastric tube are in stable and good location. IMPRESSION: 1. Diminished low lung volumes with basilar atelectasis. 2. Significant congestion and edema throughout the lungs, improved. 3. Consolidation and effusion in the right lower lung, stable. 4. Probable mildly improved left basilar pleural effusion. 5. Stable lines and tubes in good position without pneumothorax. RPTAT: HMJB .Jack Briseno MD, Date Time Electronically viewed and signed by .Jack Briseno MD, on 12/26/2016 13:26 .B/
--- NOTE | 2016-12-26 13:55 | CONS ---
Date/Time of Note Date/Time of Note DATE: 12/26/16 TIME: 13:53 Assessment/Plan Assessment/Plan Additional Assessment/Plan 1. Positive troponin, assess significance.-no sig uptrend/likely demand event in settng fevers/tachy/resp distress - no intervention planned now 2. Abnormal electrocardiogram with ST depressions with tachycardia and positive troponin, likely indicative of coronary artery disease.-improved ecg findings with improved HR - better 3. Hypertension, uncontrolled mildly still - rx as needed 4. Dyslipidemia. 5. Diabetes mellitus. 6. Fevers to 104 documented here in the hospital.-now defervesced - on anti-bx 7. Renal failure.-acute on chronic 8. Lower extremity edema, assess for congestive heart failure - stable, con't to keep euvolemic. 9. Hypokalemia. 10. Nausea and vomiting. 11. Chest pain with cough. 12.Resp failure s/p intubation 14. Bradycardia-to 40's.Now improved Consultation Date/Type/Reason Admit Date/Time Dec 15, 2016 at 11:20 Type of Consultation: pulmonary ICU Referring Provider: LEXII REED 24 HR Interval Summary Free Text/Dictation General: WN/WD/NAD, AOx 0 HEENT: Unicetric/atraumatic/EOMI (does not follow commands) NECK: JVD elevated, no thyromegaly Lymph: no lymphadenopathy HEART: regular with no S3, II/ systolic murmur at apex LUNGS: Coarse sounds ABD: soft, NT, ND, +BS : Intact Neuro: non focal SKIN: chronic changes EXT: trace edema Exam/Review of Systems Vital Signs Vitals Vital Signs Date Time Temp Pulse Resp B/P Pulse Ox O2 Delivery O2 Flow Rate FiO2 12/26/16 12:00 78 12/26/16 11:10 24 99 85 12/26/16 11:00 127/61 Mechanical Ventilator 12/26/16 08:00 98.9 Intake and Output 12/25/16 12/25/16 12/26/16 15:00 23:00 07:00 Intake Total 1630.8 ml 1508.7 ml 1445.0 ml Output Total 1250 ml 815 ml 675 ml Balance 380.8 ml 693.7 ml 770.0 ml Results Result Diagram: 12/26/16 0400 12/26/16 0400 Results 24 hrs Laboratory Tests Test 12/25/16 17:57 12/26/16 00:05 12/26/16 04:00 12/26/16 05:23 Bedside Glucose 252 H 185 187 White Blood Count 14.8 #H Red Blood Count 3.80 L Hemoglobin 10.2 L Hematocrit 33.4 L Mean Corpuscular Volume 87.9 Mean Corpuscular Hemoglobin 26.8 L Mean Corpuscular Hemoglobin Concent 30.5 L Red Cell Distribution Width 13.6 Platelet Count 274 Mean Platelet Volume 11.7 H Neutrophils % 87.2 H Lymphocytes % 2.9 L Monocytes % 3.6 Eosinophils % 0.1 Basophils % 0.1 Nucleated Red Blood Cells % 0.0 Neutrophils # 12.9 H Lymphocytes # 0.4 L Monocytes # 0.5 Eosinophils # 0.0 Basophils # 0.0 Nucleated Red Blood Cells # 0.0 Sodium Level 145 H Potassium Level 3.8 Chloride Level 110 Carbon Dioxide Level 29 Anion Gap 10 Blood Urea Nitrogen 62 H Creatinine 1.56 H Glucose Level 188 Calcium Level 7.4 L Phosphorus Level 3.5 Magnesium Level 2.2 Test 12/26/16 07:00 12/26/16 11:35 Blood Gas Specimen Source Blood arterial Arterial Blood Date Drawn 12/26/2016 7:52:36 AM Arterial Blood pH (Temp corrected) 7.427 Arterial Blood pCO2 (Temp correct) 44.7 Arterial Blood pO2 (Temp corrected) 71.5 L Arterial Blood HCO3 28.8 H Arterial Blood Base Excess 3.9 H Arterial Blood Oxygen Saturation 94.3 L Leobardo Test ACCEPTAB Arterial Blood Gas Puncture Site Left Radial Arterial Blood Carboxyhemoglobin 0.3 Arterial Blood Methemoglobin 0.5 Blood Gas A-a O2 Differential 488.2 H Oxyhemoglobin Percent 93.5 Total Hemoglobin 11.8 L Blood Gas Temperature 37.0 Blood Gas Respiration Rate 24.0 Blood Gas Actual Respiration Rate 24 Blood Gas Modality VENT - AC FiO2 85.0 Blood Gas Tidal Volume 500.0 Blood Gas Low PEEP Setting 8.0 Blood Gas Notified Whom JLD Blood Gas Notified Time 12/26/2016 8:14:37 AM Bedside Glucose 141 Medications Medications Current Medications Ondansetron HCl (Zofran Inj) 4 mg Q6H PRN IV NAUSEA AND/OR VOMITING; Start at 13:00 Acetaminophen (Tylenol Tab) 650 mg Q6H PRN PO PAIN LEVEL 1-3 OR FEVER Last administered on 12/25/16 03:33; Admin Dose 650 MG; Start 12/15/16 at 13:00 Acetaminophen/ Hydrocodone Bitart ([place] (5/325)) 1 tab Q6H PRN PO PAIN LEVEL 4 -6 Last administered on 12/15/16 22:08; Admin Dose 1 TAB; Start 12/15/16 at 13: 00 Morphine Sulfate (morphine) 2 mg Q4H PRN IV PAIN LEVEL 7-10 Last administered on 12/25/16 03:03; Admin Dose 2 MG; Start 12/15/16 at 13:00 Magnesium Hydroxide (Milk Of Mag) 30 ml DAILY PRN PO CONSTIPATION; Start at 13:00 Bisacodyl (Dulcolax) 5 mg DAILY PRN PO CONSTIPATION; Start 12/15/16 at 13:00 Famotidine (Pepcid) 20 mg Q12 PO Last administered on 12/26/16 08:53; Admin Dose 20 MG; Start 12/15/16 at 21:00 Hydralazine HCl (Apresoline) 10 mg Q6H PRN IV SBP>160 Last administered on 01:16; Admin Dose 10 MG; Start 12/15/16 at 13:00 Aspirin (Aspirin) 325 mg DAILY PO Last administered on 12/26/16 08:53; Admin Dose 325 MG; Start 12/16/16 at 09:00 Atorvastatin Calcium (Lipitor) 80 mg QHS PO Last administered on 12/25/16 20:31 ; Admin Dose 80 MG; Start 12/15/16 at 21:00 Heparin Sodium (Porcine) (Heparin (5000 Units/0.5 ml)) 5,000 unit BID SC Last administered on 12/26/16 08:55; Admin Dose 5,000 UNIT; Start 12/15/16 at 21:00 Miscellaneous Information 1 ea NOTE XX ; Start 12/15/16 at 14:00 Glucose (Glutose) 15 gm Q15M PRN PO DECREASED GLUCOSE; Start 12/15/16 at 14:00 Glucose (Glutose) 22.5 gm Q15M PRN PO DECREASED GLUCOSE; Start 12/15/16 at 14: 00 Glucagon (Glucagen) 1 mg Q15M PRN IM DECREASED GLUCOSE; Start 12/15/16 at 14:00 Glucose (Glutose) 15 gm Q15M PRN BUCCAL DECREASED GLUCOSE; Start 12/15/16 at 14 :00 Cholecalciferol 1000 unit 1,000 unit DAILY PO Last administered on 12/26/16 08: 53; Admin Dose 1,000 UNIT; Start 12/16/16 at 09:00 Fentanyl (Sublimaze) 100 ml @ 2.5 mls/hr TITRATE IV Last administered on 03:20; Admin Dose 10 MLS/HR; Start 12/18/16 at 03:30 Dextrose (D50w Syringe) 25 ml Q15M PRN IV Till BS 80 mg/dL or above x2; Start 12/18/16 at 14:00 Dextrose (D50w Syringe) 50 ml Q15M PRN IV Till BS 80 mg/dL or above x2; Start 12/18/16 at 14:00 IV Flush 10 ml 10 ml PRN PRN IV IV PROTOCOL; Start 12/18/16 at 17:00 Norepinephrine/ Dextrose (Levophed/D5W) 250 ml @ 0.46 mls/hr TITRATE IV ; Start 12/19/16 at 09:30 Amlodipine Besylate 5 mg 5 mg DAILY PO Last administered on 12/26/16 08:53; Admin Dose 5 MG; Start 12/21/16 at 09:00 Midazolam HCl 50 ml @ 1 mls/hr TITRATE IV Last administered on 12/26/16 10:07; Admin Dose 10 MLS/HR; Start 12/20/16 at 14:00 Propofol (Diprivan) 100 ml @ 3.255 mls/ hr Q12H IV Last administered on 10:08; Admin Dose 19.53 MLS/HR; Start 12/20/16 at 20:30 Hydralazine HCl (Apresoline) 10 mg Q4H PRN IV sbp > 160 Last administered on 22:35; Admin Dose 10 MG; Start 12/22/16 at 06:30 Insulin Glargine (Lantus) 40 unit DAILY@20 SC Last administered on 12/25/16 20: 33; Admin Dose 40 UNIT; Start 12/23/16 at 20:00 Insulin Aspart (Novolog Insulin Pen) 14 unit Q6 SC Last administered on 11:37; Admin Dose 14 UNIT; Start 12/24/16 at 12:00 Insulin Aspart (Novolog Insulin Pen) NOVOLOG *MODERATE* ALGORI... Q6 SC Last administered on 12/26/16 11:38; Admin Dose 2 UNIT; Start 12/24/16 at 18:00 Lorazepam (Ativan) 1 mg Q1H PRN IV agitation; Start 12/25/16 at 03:30 Hydralazine HCl (Apresoline) 50 mg Q8 PO Last administered on 12/26/16 05:20; Admin Dose 50 MG; Start 12/25/16 at 06:00 Carvedilol (Coreg) 6.25 mg BID PO Last administered on 12/26/16 08:53; Admin Dose 6.25 MG; Start 12/25/16 at 21:00 Methylprednisolone Sodium Succinate (Solu-Medrol) 60 mg Q8 IV Last administered on 12/26/16 10:14; Admin Dose 60 MG; Start 12/26/16 at 10:00 DELIA BILLY MD December 26, 2016 13:54
--- NOTE | 2016-12-26 18:04 | CONS ---
Date/Time of Note Date/Time of Note DATE: 12/26/16 TIME: 18:01 Consult Date/Type/Reason Admit Date/Time Dec 15, 2016 at 11:20 Type of Consultation: Rheum Ordering Provider: LEXII REED Subjective Patient remains intubated sedated on mechanical ventilation. No worsening of condition. Objective Vital Signs Date Time Temp Pulse Resp B/P Pulse Ox O2 Delivery O2 Flow Rate FiO2 12/26/16 17:10 71 24 96 85 12/26/16 17:00 120/53 Mechanical Ventilator 12/26/16 16:00 98.5 Intake and Output 12/25/16 12/25/16 12/26/16 15:00 23:00 07:00 Intake Total 1630.8 ml 1508.7 ml 1445.0 ml Output Total 1250 ml 815 ml 675 ml Balance 380.8 ml 693.7 ml 770.0 ml Exam Sedated, intubated. Skin without acute lesions. Chest scattered crackles. Heart RRR Abd soft. Ext. No synovitis. Results/Medications Result Diagram: 12/26/16 0400 12/26/16 0400 Results 24 hrs Laboratory Tests Test 12/26/16 00:05 12/26/16 04:00 12/26/16 05:23 12/26/16 07:00 Bedside Glucose 185 187 White Blood Count 14.8 #H Red Blood Count 3.80 L Hemoglobin 10.2 L Hematocrit 33.4 L Mean Corpuscular Volume 87.9 Mean Corpuscular Hemoglobin 26.8 L Mean Corpuscular Hemoglobin Concent 30.5 L Red Cell Distribution Width 13.6 Platelet Count 274 Mean Platelet Volume 11.7 H Neutrophils % 87.2 H Lymphocytes % 2.9 L Monocytes % 3.6 Eosinophils % 0.1 Basophils % 0.1 Nucleated Red Blood Cells % 0.0 Neutrophils # 12.9 H Lymphocytes # 0.4 L Monocytes # 0.5 Eosinophils # 0.0 Basophils # 0.0 Nucleated Red Blood Cells # 0.0 Sodium Level 145 H Potassium Level 3.8 Chloride Level 110 Carbon Dioxide Level 29 Anion Gap 10 Blood Urea Nitrogen 62 H Creatinine 1.56 H Glucose Level 188 Calcium Level 7.4 L Phosphorus Level 3.5 Magnesium Level 2.2 Blood Gas Specimen Source Blood arterial Arterial Blood Date Drawn 12/26/2016 7:52:36 AM Arterial Blood pH (Temp corrected) 7.427 Arterial Blood pCO2 (Temp correct) 44.7 Arterial Blood pO2 (Temp corrected) 71.5 L Arterial Blood HCO3 28.8 H Arterial Blood Base Excess 3.9 H Arterial Blood Oxygen Saturation 94.3 L Leobardo Test ACCEPTAB Arterial Blood Gas Puncture Site Left Radial Arterial Blood Carboxyhemoglobin 0.3 Arterial Blood Methemoglobin 0.5 Blood Gas A-a O2 Differential 488.2 H Oxyhemoglobin Percent 93.5 Total Hemoglobin 11.8 L Blood Gas Temperature 37.0 Blood Gas Respiration Rate 24.0 Blood Gas Actual Respiration Rate 24 Blood Gas Modality VENT - AC FiO2 85.0 Blood Gas Tidal Volume 500.0 Blood Gas Low PEEP Setting 8.0 Blood Gas Notified Whom JLD Blood Gas Notified Time 12/26/2016 8:14:37 AM Test 12/26/16 11:35 12/26/16 17:28 Bedside Glucose 141 112 Medications Current Medications Ondansetron HCl (Zofran Inj) 4 mg Q6H PRN IV NAUSEA AND/OR VOMITING; Start at 13:00 Acetaminophen (Tylenol Tab) 650 mg Q6H PRN PO PAIN LEVEL 1-3 OR FEVER Last administered on 12/25/16 03:33; Admin Dose 650 MG; Start 12/15/16 at 13:00 Acetaminophen/ Hydrocodone Bitart ([place] (5/325)) 1 tab Q6H PRN PO PAIN LEVEL 4 -6 Last administered on 12/15/16 22:08; Admin Dose 1 TAB; Start 12/15/16 at 13: 00 Morphine Sulfate (morphine) 2 mg Q4H PRN IV PAIN LEVEL 7-10 Last administered on 12/25/16 03:03; Admin Dose 2 MG; Start 12/15/16 at 13:00 Magnesium Hydroxide (Milk Of Mag) 30 ml DAILY PRN PO CONSTIPATION; Start at 13:00 Bisacodyl (Dulcolax) 5 mg DAILY PRN PO CONSTIPATION; Start 12/15/16 at 13:00 Famotidine (Pepcid) 20 mg Q12 PO Last administered on 12/26/16 08:53; Admin Dose 20 MG; Start 12/15/16 at 21:00 Hydralazine HCl (Apresoline) 10 mg Q6H PRN IV SBP>160 Last administered on 14:17; Admin Dose 10 MG; Start 12/15/16 at 13:00 Aspirin (Aspirin) 325 mg DAILY PO Last administered on 12/26/16 08:53; Admin Dose 325 MG; Start 12/16/16 at 09:00 Atorvastatin Calcium (Lipitor) 80 mg QHS PO Last administered on 12/25/16 20:31 ; Admin Dose 80 MG; Start 12/15/16 at 21:00 Heparin Sodium (Porcine) (Heparin (5000 Units/0.5 ml)) 5,000 unit BID SC Last administered on 12/26/16 08:55; Admin Dose 5,000 UNIT; Start 12/15/16 at 21:00 Miscellaneous Information 1 ea NOTE XX ; Start 12/15/16 at 14:00 Glucose (Glutose) 15 gm Q15M PRN PO DECREASED GLUCOSE; Start 12/15/16 at 14:00 Glucose (Glutose) 22.5 gm Q15M PRN PO DECREASED GLUCOSE; Start 12/15/16 at 14: 00 Glucagon (Glucagen) 1 mg Q15M PRN IM DECREASED GLUCOSE; Start 12/15/16 at 14:00 Glucose (Glutose) 15 gm Q15M PRN BUCCAL DECREASED GLUCOSE; Start 12/15/16 at 14 :00 Cholecalciferol 1000 unit 1,000 unit DAILY PO Last administered on 12/26/16 08: 53; Admin Dose 1,000 UNIT; Start 12/16/16 at 09:00 Fentanyl (Sublimaze) 100 ml @ 2.5 mls/hr TITRATE IV Last administered on 14:26; Admin Dose 5 MLS/HR; Start 12/18/16 at 03:30 Dextrose (D50w Syringe) 25 ml Q15M PRN IV Till BS 80 mg/dL or above x2; Start 12/18/16 at 14:00 Dextrose (D50w Syringe) 50 ml Q15M PRN IV Till BS 80 mg/dL or above x2; Start 12/18/16 at 14:00 IV Flush 10 ml 10 ml PRN PRN IV IV PROTOCOL; Start 12/18/16 at 17:00 Norepinephrine/ Dextrose (Levophed/D5W) 250 ml @ 0.46 mls/hr TITRATE IV ; Start 12/19/16 at 09:30 Amlodipine Besylate 5 mg 5 mg DAILY PO Last administered on 12/26/16 08:53; Admin Dose 5 MG; Start 12/21/16 at 09:00 Midazolam HCl 50 ml @ 1 mls/hr TITRATE IV Last administered on 12/26/16 17:00; Admin Dose 10 MLS/HR; Start 12/20/16 at 14:00 Propofol (Diprivan) 100 ml @ 3.255 mls/ hr Q12H IV Last administered on 15:52; Admin Dose 19.53 MLS/HR; Start 12/20/16 at 20:30 Hydralazine HCl (Apresoline) 10 mg Q4H PRN IV sbp > 160 Last administered on 22:35; Admin Dose 10 MG; Start 12/22/16 at 06:30 Insulin Glargine (Lantus) 40 unit DAILY@20 SC Last administered on 12/25/16 20: 33; Admin Dose 40 UNIT; Start 12/23/16 at 20:00 Insulin Aspart (Novolog Insulin Pen) 14 unit Q6 SC Last administered on 17:32; Admin Dose 14 UNIT; Start 12/24/16 at 12:00 Insulin Aspart (Novolog Insulin Pen) NOVOLOG *MODERATE* ALGORI... Q6 SC Last administered on 12/26/16 11:38; Admin Dose 2 UNIT; Start 12/24/16 at 18:00 Lorazepam (Ativan) 1 mg Q1H PRN IV agitation; Start 12/25/16 at 03:30 Hydralazine HCl (Apresoline) 50 mg Q8 PO Last administered on 12/26/16 14:16; Admin Dose 50 MG; Start 12/25/16 at 06:00 Carvedilol (Coreg) 6.25 mg BID PO Last administered on 12/26/16 08:53; Admin Dose 6.25 MG; Start 12/25/16 at 21:00 Methylprednisolone Sodium Succinate (Solu-Medrol) 60 mg Q8 IV Last administered on 12/26/16 14:16; Admin Dose 60 MG; Start 12/26/16 at 10:00 Assessment/Plan Chief Complaint/Hosp Course 1. Positive DAISY of unclear significance so far. No definite evidence of vasculitis, continues on steroids. 2. Respiratory failure. 3. Renal insufficiency Much improved. 4. Diabetes mellitus. Glucose increased on steroids. 5. Hypertension. Rec. Steroid dose per pulmonary Problems: ELIZABETH PUCKETT MD December 26, 2016 18:04
[2016-12-26] MEDS: INSULIN GLARGINE [LANtus] 3 ML PEN SC SCH (21:14)
[2016-12-26] MEDS: ATORVASTATIN 80 MG TAB PO SCH (21:15)
[2016-12-27] VITALS (50 sets, daily range): BP systolic 117–187; BP diastolic 52–83; PULSE 45–95; RESP 24–26
[2016-12-27] MEDS: FENTAnyl (DRIP) 1000 mcg/100mL 100 ML IV SCH ×3 (00:28→22:42)
[2016-12-27] MEDS: LEVALBUTEROL (HFA) 15 GM INHALER INH SCH ×4 (01:05→19:21)
[2016-12-27] MEDS: PROPOFOL 100 ML IV SCH ×3 (02:33→19:53)
[2016-12-27] MEDS: MIDAZOLAM (DRIP) 50 mg/50 mL 50 ML IV SCH ×4 (04:02→23:32)
[2016-12-27 04:42] LABS: ADD SCAN DIFF NO
[2016-12-27 04:51] LABS: BASOPHILS % 0.1 % (0.0-2.0); EOSINOPHILS # 0.2 10^3/ul (0.0-0.5); EOSINOPHILS % 1.6 % (0.0-7.0); HEMATOCRIT 31.9 % (42.0-52.0); LYMPHOCYTES # 1.6 10^3/ul (0.8-2.9); LYMPHOCYTES % 10.4 % (15.0-51.0); MEAN CORPUSCULAR HEMOGLOBIN 27.4 pg (29.0-33.0); MEAN CORPUSCULAR HGB CONC 31.3 g/dl (32.0-37.0); MEAN CORPUSCULAR VOLUME 87.4 fl (82.0-101.0); MEAN PLATELET VOLUME 11.2 fl (7.4-10.4); MONOCYTE # 1.2 10^3/ul (0.3-0.9); MONOCYTES % 7.8 % (0.0-11.0); NEUTROPHIL # 11.4 10^3/ul (1.6-7.5); NEUTROPHILS % 76.2 % (39.0-77.0); PLATELET COUNT 241 10^3/UL (140-415); RED BLOOD COUNT 3.65 10^6/ul (4.70-6.10); RED CELL DISTRIBUTION WIDTH 13.3 % (11.5-14.5)
[2016-12-27 05:11] LABS: MAGNESIUM 2.2 mg/dl (1.7-2.5); PHOSPHORUS 3.5 mg/dl (2.5-4.9)
[2016-12-27 05:19] LABS: CREATININE 1.62 mg/dl (0.61-1.24)
[2016-12-27 05:20] LABS: CALCIUM 7.3 mg/dl (8.4-10.2)
[2016-12-27 05:22] LABS: POTASSIUM 2.9 mmol/L (3.5-5.1)
[2016-12-27] MEDS: INSULIN ASPART [NOVOLOG] 3 ML PEN SC SCH ×5 (05:23→21:07)
[2016-12-27] MEDS: METHYLPREDNISOLONE 125 MG INJ IV SCH ×3 (05:38→22:45)
[2016-12-27] MEDS: POTASSIUM CHLORIDE 250 ML IVPB SCH ×2 (05:41→10:07)
[2016-12-27] MEDS: FUROSEMIDE 40 MG INJ IV SCH ×2 (05:58→17:48)
--- NOTE | 2016-12-27 07:17 | PN ---
Date/Time of Note Date/Time of Note DATE: 12/27/16 TIME: 07:16 Assessment/Plan VTE Prophylaxis VTE Prophylaxis Intervention: heparin Lines/Catheters IV [facility] Type (from [facility]): PICC Line Central line still needed: Yes Urinary Cath still in place: Yes Reason Cath still needed: other (indicate) Assessment/Plan Chief Complaint/Hosp Course 1. Sepsis secondary to underlying community-acquired pneumonia with septic shock. Currently off pressors. On ABX as per ID. Mycoplasma serology abnormal. 2. Acute hypoxic respiratory failure. Most probably secondary to underlying pneumonia versus others. Patient got intubated on 12/18/2016. Continue inhaled bronchodilators. Pulmonology following the patient. 3. Elevated troponins. Most probably a type 2 event from underlying sepsis and underlying acute kidney injury. Cardiology following. 4. Acute kidney injury. The patient had a normal creatinine of 1.00 on 2015. The patient's current acute kidney injury could be most probably secondary to dehydration from persistent vomiting. The patient's nephrotoxic drugs will be held at this time. Being followed by nephrology. 5. Type 2 diabetes mellitus. Uncontrolled. A1C is high (send out). The patient will be maintained on sliding scale insulin along with basal insulin. 6. Dyslipidemia. Continue statins. 7. Essential hypertension. Continue antihypertensives. 8. Hypocalcemia. Probably secondary to underlying hypoalbuminemia. 9. Microcytic, hypochromic anemia. Etiology unclear. Iron panel showing iron deficiency. Continue iron supplements. 10. Vitamin D deficiency. Continue supplements. 11. Fluids, electrolytes, and nutrition. Tube feedings. 12. DVT prophylaxis. Subcutaneous heparin. 13. Gastrointestinal prophylaxis. Histamine 2 receptor blockers. 14. Plan. Continue antibiotics. Continue ventilator support. Replete potassium. Appreciate Rheumatology inputs. Case discussed with Dr. Perez. Critical care time: 35 minutes. Problems: Subjective 24 Hr Interval Summary Free Text/Dictation Remains intubated. Awake and cooperative once off sedation. Exam/Review of Systems Vital Signs Vitals Vital Signs Date Time Temp Pulse Resp B/P Pulse Ox O2 Delivery O2 Flow Rate FiO2 12/27/16 06:00 69 117/55 92 Mechanical Ventilator 12/27/16 05:00 24 80 12/27/16 04:00 99.1 Intake and Output 12/26/16 12/26/16 12/27/16 15:00 23:00 07:00 Intake Total 1381.0 ml 1066.0 ml 1636.0 ml Output Total 980 ml 885 ml 760 ml Balance 401.0 ml 181.0 ml 876.0 ml Exam GENERAL: This is a morbidly obese male lying in bed, orally intubated and mechanically ventilated. HEENT: Head normocephalic and atraumatic. Eyes: Anicteric sclerae. Conjunctivae clear. ENT: Nasal septum is midline. Oral mucosa is dry. NECK: Short with increased neck circumference. RESPIRATORY: Bilaterally diminished breath sounds. On mechanical ventilator. On 100% FiO2 with a PEEP of 8. CARDIAC: Regular rate and rhythm. S1, S2 heard. ABDOMEN: Soft, nontender and nondistended. Bowel sounds positive in all 4 quadrants. GENITOURINARY: Deferred. EXTREMITIES: No cyanosis, no clubbing. B/L LE edema. Pedal pulses palpable. Status post left great toe amputation. NEUROLOGIC: The patient is awake and alert. Follows commands. Results Result Diagram: 12/27/16 0400 12/27/16 0400 Results 24 hrs Laboratory Tests Test 12/26/16 11:35 12/26/16 17:28 12/26/16 23:58 12/27/16 04:00 Bedside Glucose 141 112 136 White Blood Count 15.0 H Red Blood Count 3.65 L Hemoglobin 10.0 L Hematocrit 31.9 L Mean Corpuscular Volume 87.4 Mean Corpuscular Hemoglobin 27.4 L Mean Corpuscular Hemoglobin Concent 31.3 L Red Cell Distribution Width 13.3 Platelet Count 241 Mean Platelet Volume 11.2 H Neutrophils % 76.2 Lymphocytes % 10.4 L Monocytes % 7.8 Eosinophils % 1.6 Basophils % 0.1 Nucleated Red Blood Cells % 0.0 Neutrophils # 11.4 H Lymphocytes # 1.6 Monocytes # 1.2 H Eosinophils # 0.2 Basophils # 0.0 Nucleated Red Blood Cells # 0.0 Sodium Level 145 H Potassium Level 2.9 *L Chloride Level 108 Carbon Dioxide Level 31 Anion Gap 9 Blood Urea Nitrogen 64 H Creatinine 1.62 H Glucose Level 80 # Calcium Level 7.3 L Phosphorus Level 3.5 Magnesium Level 2.2 Test 12/27/16 05:21 12/27/16 07:14 Bedside Glucose 83 Lab Scanned Report REFERENCE LAB Medications Medications Current Medications Ondansetron HCl (Zofran Inj) 4 mg Q6H PRN IV NAUSEA AND/OR VOMITING; Start at 13:00 Acetaminophen (Tylenol Tab) 650 mg Q6H PRN PO PAIN LEVEL 1-3 OR FEVER Last administered on 12/25/16 03:33; Admin Dose 650 MG; Start 12/15/16 at 13:00 Acetaminophen/ Hydrocodone Bitart ([place] (5/325)) 1 tab Q6H PRN PO PAIN LEVEL 4 -6 Last administered on 12/15/16 22:08; Admin Dose 1 TAB; Start 12/15/16 at 13: 00 Morphine Sulfate (morphine) 2 mg Q4H PRN IV PAIN LEVEL 7-10 Last administered on 12/25/16 03:03; Admin Dose 2 MG; Start 12/15/16 at 13:00 Magnesium Hydroxide (Milk Of Mag) 30 ml DAILY PRN PO CONSTIPATION; Start at 13:00 Bisacodyl (Dulcolax) 5 mg DAILY PRN PO CONSTIPATION; Start 12/15/16 at 13:00 Famotidine (Pepcid) 20 mg Q12 PO Last administered on 12/26/16 21:15; Admin Dose 20 MG; Start 12/15/16 at 21:00 Hydralazine HCl (Apresoline) 10 mg Q6H PRN IV SBP>160 Last administered on 14:17; Admin Dose 10 MG; Start 12/15/16 at 13:00 Aspirin (Aspirin) 325 mg DAILY PO Last administered on 12/26/16 08:53; Admin Dose 325 MG; Start 12/16/16 at 09:00 Atorvastatin Calcium (Lipitor) 80 mg QHS PO Last administered on 12/26/16 21:15 ; Admin Dose 80 MG; Start 12/15/16 at 21:00 Heparin Sodium (Porcine) (Heparin (5000 Units/0.5 ml)) 5,000 unit BID SC Last administered on 12/26/16 21:14; Admin Dose 5,000 UNIT; Start 12/15/16 at 21:00 Miscellaneous Information 1 ea NOTE XX ; Start 12/15/16 at 14:00 Glucose (Glutose) 15 gm Q15M PRN PO DECREASED GLUCOSE; Start 12/15/16 at 14:00 Glucose (Glutose) 22.5 gm Q15M PRN PO DECREASED GLUCOSE; Start 12/15/16 at 14: 00 Glucagon (Glucagen) 1 mg Q15M PRN IM DECREASED GLUCOSE; Start 12/15/16 at 14:00 Glucose (Glutose) 15 gm Q15M PRN BUCCAL DECREASED GLUCOSE; Start 12/15/16 at 14 :00 Cholecalciferol 1000 unit 1,000 unit DAILY PO Last administered on 12/26/16 08: 53; Admin Dose 1,000 UNIT; Start 12/16/16 at 09:00 Fentanyl (Sublimaze) 100 ml @ 2.5 mls/hr TITRATE IV Last administered on 00:28; Admin Dose 10 MLS/HR; Start 12/18/16 at 03:30 Dextrose (D50w Syringe) 25 ml Q15M PRN IV Till BS 80 mg/dL or above x2; Start 12/18/16 at 14:00 Dextrose (D50w Syringe) 50 ml Q15M PRN IV Till BS 80 mg/dL or above x2; Start 12/18/16 at 14:00 IV Flush 10 ml 10 ml PRN PRN IV IV PROTOCOL; Start 12/18/16 at 17:00 Norepinephrine/ Dextrose (Levophed/D5W) 250 ml @ 0.46 mls/hr TITRATE IV ; Start 12/19/16 at 09:30 Amlodipine Besylate 5 mg 5 mg DAILY PO Last administered on 12/26/16 08:53; Admin Dose 5 MG; Start 12/21/16 at 09:00 Midazolam HCl 50 ml @ 1 mls/hr TITRATE IV Last administered on 12/27/16 04:02; Admin Dose 10 MLS/HR; Start 12/20/16 at 14:00 Propofol (Diprivan) 100 ml @ 3.255 mls/ hr Q12H IV Last administered on 07:03; Admin Dose 19.53 MLS/HR; Start 12/20/16 at 20:30 Hydralazine HCl (Apresoline) 10 mg Q4H PRN IV sbp > 160 Last administered on 22:35; Admin Dose 10 MG; Start 12/22/16 at 06:30 Insulin Glargine (Lantus) 40 unit DAILY@20 SC Last administered on 12/26/16 21: 14; Admin Dose 40 UNIT; Start 12/23/16 at 20:00 Insulin Aspart (Novolog Insulin Pen) 14 unit Q6 SC Last administered on 23:59; Admin Dose 14 UNIT; Start 12/24/16 at 12:00 Insulin Aspart (Novolog Insulin Pen) NOVOLOG *MODERATE* ALGORI... Q6 SC Last administered on 12/26/16 11:38; Admin Dose 2 UNIT; Start 12/24/16 at 18:00 Lorazepam (Ativan) 1 mg Q1H PRN IV agitation; Start 12/25/16 at 03:30 Hydralazine HCl (Apresoline) 50 mg Q8 PO Last administered on 12/27/16 05:39; Admin Dose 50 MG; Start 12/25/16 at 06:00 Carvedilol (Coreg) 6.25 mg BID PO Last administered on 12/26/16 21:15; Admin Dose 6.25 MG; Start 12/25/16 at 21:00 Methylprednisolone Sodium Succinate 60 mg 60 mg Q8 IV Last administered on 05:38; Admin Dose 60 MG; Start 12/26/16 at 10:00 Potassium Chloride (KCl 40 MEQ/250 ML NS) 250 ml @ 62.5 mls/hr Q4H IVPB Last administered on 12/27/16 05:41; Admin Dose 62.5 MLS/HR; Start 12/27/16 at 05:30; Stop 12/27/16 at 13:29 GEORGI CORBETT NP December 27, 2016 07:17
[2016-12-27] MEDS: SEVELAMER CARBONATE 2.4 GM PKT PO SCH ×3 (07:35→17:48)
--- NOTE | 2016-12-27 08:14 | CONS ---
Date/Time of Note Date/Time of Note DATE: 12/27/16 TIME: 08:13 Consult Date/Type/Reason Admit Date/Time Dec 15, 2016 at 11:20 Type of Consultation: nephrology Ordering Provider: LEXII REED Subjective pt. seen and examined BS noted. good uop. on vent. pe: GENERAL: This is a morbidly obese male lying in bed, orally intubated and mechanically ventilated. HEENT: Head normocephalic and atraumatic. Eyes: Anicteric sclerae. Conjunctivae clear. ENT: Nasal septum is midline. Oral mucosa is dry. NECK: Short with increased neck circumference. RESPIRATORY: Bilaterally diminished breath sounds. On mechanical ventilator. On 100% FiO2 with a PEEP of 8. CARDIAC: Regular rate and rhythm. S1, S2 heard. ABDOMEN: Soft, nontender and nondistended. Bowel sounds positive in all 4 quadrants. GENITOURINARY: Deferred. EXTREMITIES: No cyanosis, no clubbing. B/L LE edema. Pedal pulses palpable. Status post left great toe amputation. NEUROLOGIC: The patient is currently sedated. Objective Vital Signs Date Time Temp Pulse Resp B/P Pulse Ox O2 Delivery O2 Flow Rate FiO2 12/27/16 06:00 69 117/55 92 Mechanical Ventilator 12/27/16 05:00 24 80 12/27/16 04:00 99.1 Intake and Output 12/26/16 12/26/16 12/27/16 15:00 23:00 07:00 Intake Total 1381.0 ml 1066.0 ml 1636.0 ml Output Total 980 ml 885 ml 760 ml Balance 401.0 ml 181.0 ml 876.0 ml Results/Medications Result Diagram: 12/27/16 0400 12/27/16 0400 Results 24 hrs Laboratory Tests Test 12/26/16 11:35 12/26/16 17:28 12/26/16 23:58 12/27/16 04:00 Bedside Glucose 141 112 136 White Blood Count 15.0 H Red Blood Count 3.65 L Hemoglobin 10.0 L Hematocrit 31.9 L Mean Corpuscular Volume 87.4 Mean Corpuscular Hemoglobin 27.4 L Mean Corpuscular Hemoglobin Concent 31.3 L Red Cell Distribution Width 13.3 Platelet Count 241 Mean Platelet Volume 11.2 H Neutrophils % 76.2 Lymphocytes % 10.4 L Monocytes % 7.8 Eosinophils % 1.6 Basophils % 0.1 Nucleated Red Blood Cells % 0.0 Neutrophils # 11.4 H Lymphocytes # 1.6 Monocytes # 1.2 H Eosinophils # 0.2 Basophils # 0.0 Nucleated Red Blood Cells # 0.0 Sodium Level 145 H Potassium Level 2.9 *L Chloride Level 108 Carbon Dioxide Level 31 Anion Gap 9 Blood Urea Nitrogen 64 H Creatinine 1.62 H Glucose Level 80 # Calcium Level 7.3 L Phosphorus Level 3.5 Magnesium Level 2.2 Test 12/27/16 05:21 12/27/16 07:14 Bedside Glucose 83 Lab Scanned Report REFERENCE LAB Medications Current Medications Ondansetron HCl (Zofran Inj) 4 mg Q6H PRN IV NAUSEA AND/OR VOMITING; Start at 13:00 Acetaminophen (Tylenol Tab) 650 mg Q6H PRN PO PAIN LEVEL 1-3 OR FEVER Last administered on 12/25/16 03:33; Admin Dose 650 MG; Start 12/15/16 at 13:00 Acetaminophen/ Hydrocodone Bitart ([place] (5/325)) 1 tab Q6H PRN PO PAIN LEVEL 4 -6 Last administered on 12/15/16 22:08; Admin Dose 1 TAB; Start 12/15/16 at 13: 00 Morphine Sulfate (morphine) 2 mg Q4H PRN IV PAIN LEVEL 7-10 Last administered on 12/25/16 03:03; Admin Dose 2 MG; Start 12/15/16 at 13:00 Magnesium Hydroxide (Milk Of Mag) 30 ml DAILY PRN PO CONSTIPATION; Start at 13:00 Bisacodyl (Dulcolax) 5 mg DAILY PRN PO CONSTIPATION; Start 12/15/16 at 13:00 Famotidine (Pepcid) 20 mg Q12 PO Last administered on 12/26/16 21:15; Admin Dose 20 MG; Start 12/15/16 at 21:00 Hydralazine HCl (Apresoline) 10 mg Q6H PRN IV SBP>160 Last administered on 14:17; Admin Dose 10 MG; Start 12/15/16 at 13:00 Aspirin (Aspirin) 325 mg DAILY PO Last administered on 12/26/16 08:53; Admin Dose 325 MG; Start 12/16/16 at 09:00 Atorvastatin Calcium (Lipitor) 80 mg QHS PO Last administered on 12/26/16 21:15 ; Admin Dose 80 MG; Start 12/15/16 at 21:00 Heparin Sodium (Porcine) (Heparin (5000 Units/0.5 ml)) 5,000 unit BID SC Last administered on 12/26/16 21:14; Admin Dose 5,000 UNIT; Start 12/15/16 at 21:00 Miscellaneous Information 1 ea NOTE XX ; Start 12/15/16 at 14:00 Glucose (Glutose) 15 gm Q15M PRN PO DECREASED GLUCOSE; Start 12/15/16 at 14:00 Glucose (Glutose) 22.5 gm Q15M PRN PO DECREASED GLUCOSE; Start 12/15/16 at 14: 00 Glucagon (Glucagen) 1 mg Q15M PRN IM DECREASED GLUCOSE; Start 12/15/16 at 14:00 Glucose (Glutose) 15 gm Q15M PRN BUCCAL DECREASED GLUCOSE; Start 12/15/16 at 14 :00 Cholecalciferol 1000 unit 1,000 unit DAILY PO Last administered on 12/26/16 08: 53; Admin Dose 1,000 UNIT; Start 12/16/16 at 09:00 Fentanyl (Sublimaze) 100 ml @ 2.5 mls/hr TITRATE IV Last administered on 00:28; Admin Dose 10 MLS/HR; Start 12/18/16 at 03:30 Dextrose (D50w Syringe) 25 ml Q15M PRN IV Till BS 80 mg/dL or above x2; Start 12/18/16 at 14:00 Dextrose (D50w Syringe) 50 ml Q15M PRN IV Till BS 80 mg/dL or above x2; Start 12/18/16 at 14:00 IV Flush 10 ml 10 ml PRN PRN IV IV PROTOCOL; Start 12/18/16 at 17:00 Norepinephrine/ Dextrose (Levophed/D5W) 250 ml @ 0.46 mls/hr TITRATE IV ; Start 12/19/16 at 09:30 Amlodipine Besylate 5 mg 5 mg DAILY PO Last administered on 12/26/16 08:53; Admin Dose 5 MG; Start 12/21/16 at 09:00 Midazolam HCl 50 ml @ 1 mls/hr TITRATE IV Last administered on 12/27/16 04:02; Admin Dose 10 MLS/HR; Start 12/20/16 at 14:00 Propofol (Diprivan) 100 ml @ 3.255 mls/ hr Q12H IV Last administered on 07:03; Admin Dose 19.53 MLS/HR; Start 12/20/16 at 20:30 Hydralazine HCl (Apresoline) 10 mg Q4H PRN IV sbp > 160 Last administered on 22:35; Admin Dose 10 MG; Start 12/22/16 at 06:30 Insulin Glargine (Lantus) 40 unit DAILY@20 SC Last administered on 12/26/16 21: 14; Admin Dose 40 UNIT; Start 12/23/16 at 20:00 Insulin Aspart (Novolog Insulin Pen) 14 unit Q6 SC Last administered on 23:59; Admin Dose 14 UNIT; Start 12/24/16 at 12:00 Insulin Aspart (Novolog Insulin Pen) NOVOLOG *MODERATE* ALGORI... Q6 SC Last administered on 12/26/16 11:38; Admin Dose 2 UNIT; Start 12/24/16 at 18:00 Lorazepam (Ativan) 1 mg Q1H PRN IV agitation; Start 12/25/16 at 03:30 Hydralazine HCl (Apresoline) 50 mg Q8 PO Last administered on 12/27/16 05:39; Admin Dose 50 MG; Start 12/25/16 at 06:00 Carvedilol (Coreg) 6.25 mg BID PO Last administered on 12/26/16 21:15; Admin Dose 6.25 MG; Start 12/25/16 at 21:00 Methylprednisolone Sodium Succinate 60 mg 60 mg Q8 IV Last administered on 05:38; Admin Dose 60 MG; Start 12/26/16 at 10:00 Potassium Chloride (KCl 40 MEQ/250 ML NS) 250 ml @ 62.5 mls/hr Q4H IVPB Last administered on 12/27/16 05:41; Admin Dose 62.5 MLS/HR; Start 12/27/16 at 05:30; Stop 12/27/16 at 13:29 Assessment/Plan Chief Complaint/Hosp Course 1. Nonoliguric acute kidney injury with a previous baseline creatinine of 1.0 mg/dL. -sec to ATN from sepsis, low bp. - At this point continue the current treatment plan, supportive care, renally dose all meds. -ANCA neg, suyapa positive. -no sig proteinuria noted on previous ua. 2. Volume overload. Etiology is secondary to acute kidney injury. The patient is currently tolerating diuretic therapy well. Will continue Lasix 40 mg b.i.d. Will lower the rate of IV fluids, monitor closely. Monitor electrolytes closely. 4. Mineral bone disorder. Continue to monitor calcium and phosphorus levels. 5. Hypokalemia. Continue to monitor and replete as needed. 6. Anemia. Continue to monitor hemoglobin and hematocrit levels. 7. Ventilatory-dependent respiratory failure. Etiology is secondary to pneumonia. The patient's vent settings and ABGs are reviewed. Continue to monitor. Follow up with pulmonary. 8. Sepsis, status post shock. The patient is currently on antibiotic therapy. Will continue. 9. Non-ST elevation myocardial infarction. Continue the current medical management. 10. Diabetes. Continue the current insulin regimen. 11. History of polysubstance abuse. 12. Encephalopathy. No change. 13. Hypertension. Etiology is in part due to increased intravascular volume. Continue diuretic therapy. Continue the current blood pressure regimen and monitor closely. 14. Elevated troponin. Possible non-ST elevation myocardial infarction type 2. Continue medical management. Problems: PARAMJIT MONTES MD December 27, 2016 08:14
[2016-12-27] MEDS: ASPIRIN 325 MG TAB PO SCH (08:42)
[2016-12-27] MEDS: AMLODIPINE 5 MG TAB PO SCH (08:43)
[2016-12-27] MEDS: CHOLECALCIFEROL 1,000 UNIT TAB PO SCH (08:43)
[2016-12-27] MEDS: FAMOTIDINE 20 MG TAB PO SCH ×2 (08:43→20:59)
[2016-12-27] MEDS: HEPARIN 5,000 UNIT/0.5 ML VIAL SC SCH ×2 (08:47→21:04)
[2016-12-27 09:00] LABS: AADO2 Arterial 526.8 mmHg (7.0-24.0); Allen Test ACCEPTAB; Arterial Base Excess 5.4 mmol/L (-3.0-3); Arterial COHb 0.3 % (0.0-3.0); Arterial Fraction of Oxyhgb 94.1 % (93.0-99.0); Arterial HCO3 29.5 mmol/L (22.0-26.0); Arterial MetHb 0.5 % (0.0-1.5); Arterial Total Hemglobin 12.9 g/dl (12.0-18.0); MODE VENT - AC
[2016-12-27] MEDS ORDERED: INSULIN ASPART [NOVOLOG] 3 ML PEN SC SCH ×2 (09:00)
--- NOTE | 2016-12-27 09:56 | CONS ---
Date/Time of Note Date/Time of Note DATE: 12/27/16 TIME: 09:51 Assessment/Plan Assessment/Plan Additional Assessment/Plan Ventilator settings; AC of 24, tidal volume 500, PEEP of 8, 90% FiO2. Patient currently on Versed 2 mg/h, fentanyl drip at 70 mics per hour. Assessment and recommendations; 1. Patient admitted with acute renal failure as well as respiratory failure from pulmonary edema. 2. Possibly bilateral pneumonia. 3. 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 4. Persistent severe hypoxemia. 5. History of left foot first toe amputation with multiple surgeries. 6. Mild anasarca. Continue current treatment. Patient currently is unable to be weaned off ventilator due to high FiO2 requirements. We will obtain a CT chest without contrast. Add Zosyn 2.25 g every 8 hours. Further recommendations to be made once CT chest is done. Prognosis remains guarded. 35 minutes of critical care time was spent evaluating the patient. Consultation Date/Type/Reason Admit Date/Time Dec 15, 2016 at 11:20 Type of Consultation: Pulmonary/critical care Referring Provider: LEXII REED 24 HR Interval Summary Free Text/Dictation Patient condition remains critical. Still requiring high FiO2 for O2 saturation maintenance. Remains awake despite being on sedation. Patient has remained hemodynamically stable. General exam; young male, orally intubated, currently in no distress. Exam/Review of Systems Vital Signs Vitals Vital Signs Date Time Temp Pulse Resp B/P Pulse Ox O2 Delivery O2 Flow Rate FiO2 12/27/16 06:00 69 117/55 92 Mechanical Ventilator 12/27/16 05:00 24 80 12/27/16 04:00 99.1 Intake and Output 12/26/16 12/26/16 12/27/16 15:00 23:00 07:00 Intake Total 1381.0 ml 1066.0 ml 1636.0 ml Output Total 980 ml 885 ml 760 ml Balance 401.0 ml 181.0 ml 876.0 ml Exam HEENT exam is; supple neck, no JVD. No lymphadenopathy. Midline trachea. No thyromegaly. Orally intubated. It was a small bilaterally. Chest examination; diminished but clear vessel. S1-S2 audible, no murmurs. Abdomen examination; soft, protuberant. No organomegaly. Bowel sounds audible. Extremity exam is; trace edema. Pulses 1+ bilaterally. EYEGLASS FITTER examination; patient is awake and follows simple commands moves all 4 extremities. Results Result Diagram: 12/27/16 0400 12/27/16 0400 Results 24 hrs Laboratory Tests Test 12/26/16 11:35 12/26/16 17:28 12/26/16 23:58 12/27/16 04:00 Bedside Glucose 141 112 136 White Blood Count 15.0 H Red Blood Count 3.65 L Hemoglobin 10.0 L Hematocrit 31.9 L Mean Corpuscular Volume 87.4 Mean Corpuscular Hemoglobin 27.4 L Mean Corpuscular Hemoglobin Concent 31.3 L Red Cell Distribution Width 13.3 Platelet Count 241 Mean Platelet Volume 11.2 H Neutrophils % 76.2 Lymphocytes % 10.4 L Monocytes % 7.8 Eosinophils % 1.6 Basophils % 0.1 Nucleated Red Blood Cells % 0.0 Neutrophils # 11.4 H Lymphocytes # 1.6 Monocytes # 1.2 H Eosinophils # 0.2 Basophils # 0.0 Nucleated Red Blood Cells # 0.0 Sodium Level 145 H Potassium Level 2.9 *L Chloride Level 108 Carbon Dioxide Level 31 Anion Gap 9 Blood Urea Nitrogen 64 H Creatinine 1.62 H Glucose Level 80 # Calcium Level 7.3 L Phosphorus Level 3.5 Magnesium Level 2.2 Test 12/27/16 05:21 12/27/16 07:14 12/27/16 08:23 12/27/16 08:36 Bedside Glucose 83 81 Lab Scanned Report REFERENCE LAB Blood Gas Specimen Source Blood arterial Arterial Blood Date Drawn 12/27/2016 8:50:04 AM Arterial Blood pH (Temp corrected) 7.474 H Arterial Blood pCO2 (Temp correct) 41.1 Arterial Blood pO2 (Temp corrected) 72.8 L Arterial Blood HCO3 29.5 H Arterial Blood Base Excess 5.4 H Arterial Blood Oxygen Saturation 94.9 L Leobardo Test ACCEPTAB Arterial Blood Gas Puncture Site Right Radial Arterial Blood Carboxyhemoglobin 0.3 Arterial Blood Methemoglobin 0.5 Blood Gas A-a O2 Differential 526.8 H Oxyhemoglobin Percent 94.1 Total Hemoglobin 12.9 Blood Gas Temperature 37.0 Blood Gas Respiration Rate 24.0 Blood Gas Actual Respiration Rate 24 Blood Gas Modality VENT - AC FiO2 90.0 Blood Gas Tidal Volume 500.0 Blood Gas Low PEEP Setting 8.0 Blood Gas Notified Whom JLD Blood Gas Notified Time 12/27/2016 9:00:41 AM Medications Medications Current Medications Ondansetron HCl (Zofran Inj) 4 mg Q6H PRN IV NAUSEA AND/OR VOMITING; Start at 13:00 Acetaminophen (Tylenol Tab) 650 mg Q6H PRN PO PAIN LEVEL 1-3 OR FEVER Last administered on 12/25/16 03:33; Admin Dose 650 MG; Start 12/15/16 at 13:00 Acetaminophen/ Hydrocodone Bitart ([place] (5/325)) 1 tab Q6H PRN PO PAIN LEVEL 4 -6 Last administered on 12/15/16 22:08; Admin Dose 1 TAB; Start 12/15/16 at 13: 00 Morphine Sulfate (morphine) 2 mg Q4H PRN IV PAIN LEVEL 7-10 Last administered on 12/25/16 03:03; Admin Dose 2 MG; Start 12/15/16 at 13:00 Magnesium Hydroxide (Milk Of Mag) 30 ml DAILY PRN PO CONSTIPATION; Start at 13:00 Bisacodyl (Dulcolax) 5 mg DAILY PRN PO CONSTIPATION; Start 12/15/16 at 13:00 Famotidine (Pepcid) 20 mg Q12 PO Last administered on 12/27/16 08:43; Admin Dose 20 MG; Start 12/15/16 at 21:00 Hydralazine HCl (Apresoline) 10 mg Q6H PRN IV SBP>160 Last administered on 14:17; Admin Dose 10 MG; Start 12/15/16 at 13:00 Aspirin (Aspirin) 325 mg DAILY PO Last administered on 12/27/16 08:42; Admin Dose 325 MG; Start 12/16/16 at 09:00 Atorvastatin Calcium (Lipitor) 80 mg QHS PO Last administered on 12/26/16 21:15 ; Admin Dose 80 MG; Start 12/15/16 at 21:00 Heparin Sodium (Porcine) (Heparin (5000 Units/0.5 ml)) 5,000 unit BID SC Last administered on 12/27/16 08:47; Admin Dose 5,000 UNIT; Start 12/15/16 at 21:00 Miscellaneous Information 1 ea NOTE XX ; Start 12/15/16 at 14:00 Glucose (Glutose) 15 gm Q15M PRN PO DECREASED GLUCOSE; Start 12/15/16 at 14:00 Glucose (Glutose) 22.5 gm Q15M PRN PO DECREASED GLUCOSE; Start 12/15/16 at 14: 00 Glucagon (Glucagen) 1 mg Q15M PRN IM DECREASED GLUCOSE; Start 12/15/16 at 14:00 Glucose (Glutose) 15 gm Q15M PRN BUCCAL DECREASED GLUCOSE; Start 12/15/16 at 14 :00 Cholecalciferol 1000 unit 1,000 unit DAILY PO Last administered on 12/27/16 08: 43; Admin Dose 1,000 UNIT; Start 12/16/16 at 09:00 Fentanyl (Sublimaze) 100 ml @ 2.5 mls/hr TITRATE IV Last administered on 00:28; Admin Dose 10 MLS/HR; Start 12/18/16 at 03:30 Dextrose (D50w Syringe) 25 ml Q15M PRN IV Till BS 80 mg/dL or above x2; Start 12/18/16 at 14:00 Dextrose (D50w Syringe) 50 ml Q15M PRN IV Till BS 80 mg/dL or above x2; Start 12/18/16 at 14:00 IV Flush 10 ml 10 ml PRN PRN IV IV PROTOCOL; Start 12/18/16 at 17:00 Norepinephrine/ Dextrose (Levophed/D5W) 250 ml @ 0.46 mls/hr TITRATE IV ; Start 12/19/16 at 09:30 Amlodipine Besylate 5 mg 5 mg DAILY PO Last administered on 12/27/16 08:43; Admin Dose 5 MG; Start 12/21/16 at 09:00 Midazolam HCl 50 ml @ 1 mls/hr TITRATE IV Last administered on 12/27/16 04:02; Admin Dose 10 MLS/HR; Start 12/20/16 at 14:00 Propofol (Diprivan) 100 ml @ 3.255 mls/ hr Q12H IV Last administered on 07:03; Admin Dose 19.53 MLS/HR; Start 12/20/16 at 20:30 Hydralazine HCl (Apresoline) 10 mg Q4H PRN IV sbp > 160 Last administered on 22:35; Admin Dose 10 MG; Start 12/22/16 at 06:30 Insulin Glargine (Lantus) 40 unit DAILY@20 SC Last administered on 12/26/16 21: 14; Admin Dose 40 UNIT; Start 12/23/16 at 20:00 Lorazepam (Ativan) 1 mg Q1H PRN IV agitation; Start 12/25/16 at 03:30 Hydralazine HCl (Apresoline) 50 mg Q8 PO Last administered on 12/27/16 05:39; Admin Dose 50 MG; Start 12/25/16 at 06:00 Carvedilol (Coreg) 6.25 mg BID PO Last administered on 12/27/16 08:43; Admin Dose 6.25 MG; Start 12/25/16 at 21:00 Methylprednisolone Sodium Succinate 60 mg 60 mg Q8 IV Last administered on 05:38; Admin Dose 60 MG; Start 12/26/16 at 10:00 Potassium Chloride (KCl 40 MEQ/250 ML NS) 250 ml @ 62.5 mls/hr Q4H IVPB Last administered on 12/27/16 05:41; Admin Dose 62.5 MLS/HR; Start 12/27/16 at 05:30; Stop 12/27/16 at 13:29 Insulin Aspart NOVOLOG *MILD* ALGORI... Q4 SC ; Start 12/27/16 at 12:00 Piperacillin Sod/ Tazobactam Sod (Zosyn 2.25gm/ 50ml (Pmx)) 50 ml @ 100 mls/hr Q8 IVPB ; Start 12/27/16 at 14:00; Status JESS NEVAREZ December 27, 2016 09:56
[2016-12-27] MEDS: FLUCONAZOLE 100 MG TAB PO SCH (12:05)
[2016-12-27] MEDS: hydrALAzine 20 MG INJ IV PRN ×2 (12:05→17:59)
--- NOTE | 2016-12-27 12:05 | PN ---
DATE: 12/27/2016 SUBJECTIVE: The patient is more awake, sedation is light and he is in no distress. at bedside. VITAL SIGNS: Temperature 99.1, pulse 78, respirations 20, blood pressure 117/55 , saturation 95% on FIO2 of 100. The patient is also on high PEEP of 8. T-max this morning was 101.5. MICROBIOLOGY: Endotracheal aspirate growing staph species and Estrellita albicans. INDWELLINGS: Endotracheal tube, NG tube, Ritchie, PICC line. ANTIMICROBIALS: The patient was restarted today on Zosyn, status post Levaquin and Rocephin. LABORATORY DATA: WBC 15, H and H 10 and 31.9, platelets 241, neutrophils 76.2, BUN 64, creatinine 1.62. PHYSICAL EXAMINATION: GENERAL: This is an obese, well-developed, middle-aged man who is in no distress. HEENT: Head atraumatic, normocephalic. Sclerae anicteric. Buccal mucosa dry. NECK: Supple, trachea midline. CHEST: Rise symmetrical. Breath sounds diminished to bases. HEART: S1, S2. ABDOMEN: Soft, bowel tones present. EXTREMITIES: Without cyanosis. Bilateral trace edema. ASSESSMENT: 1. Sepsis with fever and leukocytosis. 2. Acute respiratory failure with pneumonia and increased secretions since this morning. 3. Severe hypoxemia, patient remains on high PEEP and high oxygen, pending CT of the chest. 4. Positive DAISY of unclear significance, no definite evidence of vasculitis per rheumatology note, patient remains on steroids. 5. Diabetes. 6. Hypertension. PLAN: The patient remains hemodynamically stable. He is being followed by multiple consultants. Antibiotics were restarted today, currently on Zosyn. We will start him on antifungal coverage as well and await CT of the chest. Above was discussed with Dr. Harmon . Dictated By: YOLETTE RODRIGUEZ FOOD CASHIER for DANUTA ROSE/SUNDEEP Conf#: [id number] DID#: [id number] VERONICA
[2016-12-27] MEDS: PIPER-TAZO 2.25 GM (PMX) 50 ML IVPB SCH ×2 (15:22→22:45)
[2016-12-27 16:02] LABS: CALCIUM 7.6 mg/dl (8.4-10.2); CREATININE 1.37 mg/dl (0.61-1.24); POTASSIUM 3.8 mmol/L (3.5-5.1)
--- NOTE | 2016-12-27 16:27 | CONS ---
Date/Time of Note Date/Time of Note DATE: 12/27/16 TIME: 16:20 Assessment/Plan Assessment/Plan Chief Complaint/Hosp Course IMPRESSION: 1. Positive troponin, assess significance.-no sig uptrend/likely demand event in settng fevers/tachy/resp distress 2. Abnormal electrocardiogram with ST depressions with tachycardia and positive troponin, likely indicative of coronary artery disease.-improved ecg findings with improved HR 3. Hypertension, uncontrolled mildly still 4. Dyslipidemia. 5. Diabetes mellitus. 6. Fevers to 104 documented here in the hospital.-now defervesced 7. Renal failure.-acute on chronic/ ? secondary to vasculitic syndrome 8. Lower extremity edema, assess for congestive heart failure/CHF-diastolic acute on chronic 9. Hypokalemia. 10. Nausea and vomiting. 11. Chest pain with cough. 12.Resp failure s/p intubation 14. Bradycardia-to 40's.Now improved Recc: -Tele -serial ecg's -Continue asa/statin -Continue abx's and f/u cx data -Continue bronchodilators and steroids. -Follow volume status closelya nd continue lasix diuresis -wean vent as tolerated -Continue hydralazine/norvasc with increase in hydralazine to improve BP control -Continue coreg and follow HR closely -Ongoing eval for vasculitic syndrome per rheum Problems: Consultation Date/Type/Reason Admit Date/Time Dec 15, 2016 at 11:20 Initial Consult Date 12/15/2016 Type of Consultation: Cardiology Reason for Consultation positive troponin/CHF Referring Provider: LEXII REED Exam/Review of Systems Vital Signs Vitals Vital Signs Date Time Temp Pulse Resp B/P Pulse Ox O2 Delivery O2 Flow Rate FiO2 12/27/16 15:00 73 24 98 90 12/27/16 13:30 157/75 12/27/16 13:00 98.4 Mechanical Ventilator Intake and Output 12/26/16 12/26/16 12/27/16 15:00 23:00 07:00 Intake Total 1381.0 ml 1066.0 ml 1676.0 ml Output Total 980 ml 885 ml 1060 ml Balance 401.0 ml 181.0 ml 616.0 ml Exam Review of Systems: CONSTITUTIONAL: No fevers, chills. PULMONARY: intubated CARDIOVASCULAR: No chest pain/palpitations GASTROINTESTINAL: No nausea/vomiting. GENITOURINARY: No hematuria/dysuria. MUSCULOSKELETAL: No myagias/arthalgias. PSYCHIATRIC: The patient denies depression. NEUROLOGIC: sedated Constitutional: alert Psych: no complaints Head: normocephalic ENMT: mucosa pink and moist Neck: jvd, supple Respiratory: diminished breath sounds Cardiovascular: regular rate and rhythm Gastrointestinal: non-tender, soft Musculoskeletal: muscle tone (normal) Extremities: edema (none) Neurological: other (No focal deficits) Results Result Diagram: 12/27/16 0400 12/27/16 1530 Results 24 hrs Laboratory Tests Test 12/26/16 17:28 12/26/16 23:58 12/27/16 04:00 12/27/16 05:21 Bedside Glucose 112 136 83 White Blood Count 15.0 H Red Blood Count 3.65 L Hemoglobin 10.0 L Hematocrit 31.9 L Mean Corpuscular Volume 87.4 Mean Corpuscular Hemoglobin 27.4 L Mean Corpuscular Hemoglobin Concent 31.3 L Red Cell Distribution Width 13.3 Platelet Count 241 Mean Platelet Volume 11.2 H Neutrophils % 76.2 Lymphocytes % 10.4 L Monocytes % 7.8 Eosinophils % 1.6 Basophils % 0.1 Nucleated Red Blood Cells % 0.0 Neutrophils # 11.4 H Lymphocytes # 1.6 Monocytes # 1.2 H Eosinophils # 0.2 Basophils # 0.0 Nucleated Red Blood Cells # 0.0 Sodium Level 145 H Potassium Level 2.9 *L Chloride Level 108 Carbon Dioxide Level 31 Anion Gap 9 Blood Urea Nitrogen 64 H Creatinine 1.62 H Glucose Level 80 # Calcium Level 7.3 L Phosphorus Level 3.5 Magnesium Level 2.2 Test 12/27/16 07:14 12/27/16 08:23 12/27/16 08:36 12/27/16 12:03 Lab Scanned Report REFERENCE LAB Blood Gas Specimen Source Blood arterial Arterial Blood Date Drawn 12/27/2016 8:50:04 AM Arterial Blood pH (Temp corrected) 7.474 H Arterial Blood pCO2 (Temp correct) 41.1 Arterial Blood pO2 (Temp corrected) 72.8 L Arterial Blood HCO3 29.5 H Arterial Blood Base Excess 5.4 H Arterial Blood Oxygen Saturation 94.9 L Leobardo Test ACCEPTAB Arterial Blood Gas Puncture Site Right Radial Arterial Blood Carboxyhemoglobin 0.3 Arterial Blood Methemoglobin 0.5 Blood Gas A-a O2 Differential 526.8 H Oxyhemoglobin Percent 94.1 Total Hemoglobin 12.9 Blood Gas Temperature 37.0 Blood Gas Respiration Rate 24.0 Blood Gas Actual Respiration Rate 24 Blood Gas Modality VENT - AC FiO2 90.0 Blood Gas Tidal Volume 500.0 Blood Gas Low PEEP Setting 8.0 Blood Gas Notified Whom JLD Blood Gas Notified Time 12/27/2016 9:00:41 AM Bedside Glucose 81 119 Test 12/27/16 15:30 Sodium Level 144 Potassium Level 3.8 Chloride Level 111 H Carbon Dioxide Level 32 H Anion Gap 5 L Blood Urea Nitrogen 60 H Creatinine 1.37 H Glucose Level 125 # Calcium Level 7.6 L Medications Medications Current Medications Ondansetron HCl (Zofran Inj) 4 mg Q6H PRN IV NAUSEA AND/OR VOMITING; Start at 13:00 Acetaminophen (Tylenol Tab) 650 mg Q6H PRN PO PAIN LEVEL 1-3 OR FEVER Last administered on 12/25/16 03:33; Admin Dose 650 MG; Start 12/15/16 at 13:00 Acetaminophen/ Hydrocodone Bitart ([place] (5/325)) 1 tab Q6H PRN PO PAIN LEVEL 4 -6 Last administered on 12/15/16 22:08; Admin Dose 1 TAB; Start 12/15/16 at 13: 00 Morphine Sulfate (morphine) 2 mg Q4H PRN IV PAIN LEVEL 7-10 Last administered on 12/25/16 03:03; Admin Dose 2 MG; Start 12/15/16 at 13:00 Magnesium Hydroxide (Milk Of Mag) 30 ml DAILY PRN PO CONSTIPATION; Start at 13:00 Bisacodyl (Dulcolax) 5 mg DAILY PRN PO CONSTIPATION; Start 12/15/16 at 13:00 Famotidine (Pepcid) 20 mg Q12 PO Last administered on 12/27/16 08:43; Admin Dose 20 MG; Start 12/15/16 at 21:00 Hydralazine HCl (Apresoline) 10 mg Q6H PRN IV SBP>160 Last administered on 12:05; Admin Dose 10 MG; Start 12/15/16 at 13:00 Aspirin (Aspirin) 325 mg DAILY PO Last administered on 12/27/16 08:42; Admin Dose 325 MG; Start 12/16/16 at 09:00 Atorvastatin Calcium (Lipitor) 80 mg QHS PO Last administered on 12/26/16 21:15 ; Admin Dose 80 MG; Start 12/15/16 at 21:00 Heparin Sodium (Porcine) (Heparin (5000 Units/0.5 ml)) 5,000 unit BID SC Last administered on 12/27/16 08:47; Admin Dose 5,000 UNIT; Start 12/15/16 at 21:00 Miscellaneous Information 1 ea NOTE XX ; Start 12/15/16 at 14:00 Glucose (Glutose) 15 gm Q15M PRN PO DECREASED GLUCOSE; Start 12/15/16 at 14:00 Glucose (Glutose) 22.5 gm Q15M PRN PO DECREASED GLUCOSE; Start 12/15/16 at 14: 00 Glucagon (Glucagen) 1 mg Q15M PRN IM DECREASED GLUCOSE; Start 12/15/16 at 14:00 Glucose (Glutose) 15 gm Q15M PRN BUCCAL DECREASED GLUCOSE; Start 12/15/16 at 14 :00 Cholecalciferol 1000 unit 1,000 unit DAILY PO Last administered on 12/27/16 08: 43; Admin Dose 1,000 UNIT; Start 12/16/16 at 09:00 Fentanyl (Sublimaze) 100 ml @ 2.5 mls/hr TITRATE IV Last administered on 13:04; Admin Dose 10 MLS/HR; Start 12/18/16 at 03:30 Dextrose (D50w Syringe) 25 ml Q15M PRN IV Till BS 80 mg/dL or above x2; Start 12/18/16 at 14:00 Dextrose (D50w Syringe) 50 ml Q15M PRN IV Till BS 80 mg/dL or above x2; Start 12/18/16 at 14:00 IV Flush 10 ml 10 ml PRN PRN IV IV PROTOCOL; Start 12/18/16 at 17:00 Norepinephrine/ Dextrose (Levophed/D5W) 250 ml @ 0.46 mls/hr TITRATE IV ; Start 12/19/16 at 09:30 Amlodipine Besylate 5 mg 5 mg DAILY PO Last administered on 12/27/16 08:43; Admin Dose 5 MG; Start 12/21/16 at 09:00 Midazolam HCl 50 ml @ 1 mls/hr TITRATE IV Last administered on 12/27/16 13:05; Admin Dose 10 MLS/HR; Start 12/20/16 at 14:00 Propofol (Diprivan) 100 ml @ 3.255 mls/ hr Q12H IV Last administered on 07:03; Admin Dose 19.53 MLS/HR; Start 12/20/16 at 20:30 Hydralazine HCl (Apresoline) 10 mg Q4H PRN IV sbp > 160 Last administered on 22:35; Admin Dose 10 MG; Start 12/22/16 at 06:30 Insulin Glargine (Lantus) 40 unit DAILY@20 SC Last administered on 12/26/16 21: 14; Admin Dose 40 UNIT; Start 12/23/16 at 20:00 Lorazepam (Ativan) 1 mg Q1H PRN IV agitation; Start 12/25/16 at 03:30 Hydralazine HCl (Apresoline) 50 mg Q8 PO Last administered on 12/27/16 15:22; Admin Dose 50 MG; Start 12/25/16 at 06:00 Carvedilol (Coreg) 6.25 mg BID PO Last administered on 12/27/16 08:43; Admin Dose 6.25 MG; Start 12/25/16 at 21:00 Methylprednisolone Sodium Succinate (Solu-Medrol) 60 mg Q8 IV Last administered on 12/27/16 15:22; Admin Dose 60 MG; Start 12/26/16 at 10:00 Insulin Aspart NOVOLOG *MILD* ALGORI... Q4 SC ; Start 12/27/16 at 12:00 Piperacillin Sod/ Tazobactam Sod (Zosyn 2.25gm/ 50ml (Pmx)) 50 ml @ 100 mls/hr Q8 IVPB Last administered on 12/27/16 15:22; Admin Dose 100 MLS/HR; Start at 14:00 Fluconazole (Diflucan) 100 mg DAILY PO Last administered on 12/27/16 12:05; Admin Dose 100 MG; Start 12/27/16 at 12:00 VI ADAMES December 27, 2016 16:27
--- NOTE | 2016-12-27 18:06 | CONS ---
Date/Time of Note Date/Time of Note DATE: 12/27/16 TIME: 18:04 Consult Date/Type/Reason Admit Date/Time Dec 15, 2016 at 11:20 Type of Consultation: Rheum Reason for Consultation No obvious change. Still sedated, intubated. Ordering Provider: LEXII REED Objective Vital Signs Date Time Temp Pulse Resp B/P Pulse Ox O2 Delivery O2 Flow Rate FiO2 12/27/16 17:00 91 24 100 90 12/27/16 13:30 157/75 12/27/16 13:00 98.4 Mechanical Ventilator Intake and Output 12/26/16 12/26/16 12/27/16 15:00 23:00 07:00 Intake Total 1381.0 ml 1066.0 ml 1676.0 ml Output Total 980 ml 885 ml 1060 ml Balance 401.0 ml 181.0 ml 616.0 ml Exam Sedated, intubated. Skin without acute lesions. Chest scattered crackles. Heart RRR Abd soft. Ext. No synovitis Results/Medications Result Diagram: 12/27/16 0400 12/27/16 1530 Results 24 hrs Laboratory Tests Test 12/26/16 23:58 12/27/16 04:00 12/27/16 05:21 12/27/16 07:14 Bedside Glucose 136 83 White Blood Count 15.0 H Red Blood Count 3.65 L Hemoglobin 10.0 L Hematocrit 31.9 L Mean Corpuscular Volume 87.4 Mean Corpuscular Hemoglobin 27.4 L Mean Corpuscular Hemoglobin Concent 31.3 L Red Cell Distribution Width 13.3 Platelet Count 241 Mean Platelet Volume 11.2 H Neutrophils % 76.2 Lymphocytes % 10.4 L Monocytes % 7.8 Eosinophils % 1.6 Basophils % 0.1 Nucleated Red Blood Cells % 0.0 Neutrophils # 11.4 H Lymphocytes # 1.6 Monocytes # 1.2 H Eosinophils # 0.2 Basophils # 0.0 Nucleated Red Blood Cells # 0.0 Sodium Level 145 H Potassium Level 2.9 *L Chloride Level 108 Carbon Dioxide Level 31 Anion Gap 9 Blood Urea Nitrogen 64 H Creatinine 1.62 H Glucose Level 80 # Calcium Level 7.3 L Phosphorus Level 3.5 Magnesium Level 2.2 Lab Scanned Report REFERENCE LAB Test 12/27/16 08:23 12/27/16 08:36 12/27/16 12:03 12/27/16 15:30 Blood Gas Specimen Source Blood arterial Arterial Blood Date Drawn 12/27/2016 8:50:04 AM Arterial Blood pH (Temp corrected) 7.474 H Arterial Blood pCO2 (Temp correct) 41.1 Arterial Blood pO2 (Temp corrected) 72.8 L Arterial Blood HCO3 29.5 H Arterial Blood Base Excess 5.4 H Arterial Blood Oxygen Saturation 94.9 L Leobardo Test ACCEPTAB Arterial Blood Gas Puncture Site Right Radial Arterial Blood Carboxyhemoglobin 0.3 Arterial Blood Methemoglobin 0.5 Blood Gas A-a O2 Differential 526.8 H Oxyhemoglobin Percent 94.1 Total Hemoglobin 12.9 Blood Gas Temperature 37.0 Blood Gas Respiration Rate 24.0 Blood Gas Actual Respiration Rate 24 Blood Gas Modality VENT - AC FiO2 90.0 Blood Gas Tidal Volume 500.0 Blood Gas Low PEEP Setting 8.0 Blood Gas Notified Whom JLD Blood Gas Notified Time 12/27/2016 9:00:41 AM Bedside Glucose 81 119 Sodium Level 144 Potassium Level 3.8 Chloride Level 111 H Carbon Dioxide Level 32 H Anion Gap 5 L Blood Urea Nitrogen 60 H Creatinine 1.37 H Glucose Level 125 # Calcium Level 7.6 L Test 12/27/16 17:41 Bedside Glucose 145 Medications Current Medications Ondansetron HCl (Zofran Inj) 4 mg Q6H PRN IV NAUSEA AND/OR VOMITING; Start at 13:00 Acetaminophen (Tylenol Tab) 650 mg Q6H PRN PO PAIN LEVEL 1-3 OR FEVER Last administered on 12/25/16 03:33; Admin Dose 650 MG; Start 12/15/16 at 13:00 Acetaminophen/ Hydrocodone Bitart ([place] (5/325)) 1 tab Q6H PRN PO PAIN LEVEL 4 -6 Last administered on 12/15/16 22:08; Admin Dose 1 TAB; Start 12/15/16 at 13: 00 Morphine Sulfate (morphine) 2 mg Q4H PRN IV PAIN LEVEL 7-10 Last administered on 12/25/16 03:03; Admin Dose 2 MG; Start 12/15/16 at 13:00 Magnesium Hydroxide (Milk Of Mag) 30 ml DAILY PRN PO CONSTIPATION; Start at 13:00 Bisacodyl (Dulcolax) 5 mg DAILY PRN PO CONSTIPATION; Start 12/15/16 at 13:00 Famotidine (Pepcid) 20 mg Q12 PO Last administered on 12/27/16 08:43; Admin Dose 20 MG; Start 12/15/16 at 21:00 Hydralazine HCl (Apresoline) 10 mg Q6H PRN IV SBP>160 Last administered on 17:59; Admin Dose 10 MG; Start 12/15/16 at 13:00 Aspirin (Aspirin) 325 mg DAILY PO Last administered on 12/27/16 08:42; Admin Dose 325 MG; Start 12/16/16 at 09:00 Atorvastatin Calcium (Lipitor) 80 mg QHS PO Last administered on 12/26/16 21:15 ; Admin Dose 80 MG; Start 12/15/16 at 21:00 Heparin Sodium (Porcine) (Heparin (5000 Units/0.5 ml)) 5,000 unit BID SC Last administered on 12/27/16 08:47; Admin Dose 5,000 UNIT; Start 12/15/16 at 21:00 Miscellaneous Information 1 ea NOTE XX ; Start 12/15/16 at 14:00 Glucose (Glutose) 15 gm Q15M PRN PO DECREASED GLUCOSE; Start 12/15/16 at 14:00 Glucose (Glutose) 22.5 gm Q15M PRN PO DECREASED GLUCOSE; Start 12/15/16 at 14: 00 Glucagon (Glucagen) 1 mg Q15M PRN IM DECREASED GLUCOSE; Start 12/15/16 at 14:00 Glucose (Glutose) 15 gm Q15M PRN BUCCAL DECREASED GLUCOSE; Start 12/15/16 at 14 :00 Cholecalciferol 1000 unit 1,000 unit DAILY PO Last administered on 12/27/16 08: 43; Admin Dose 1,000 UNIT; Start 12/16/16 at 09:00 Fentanyl (Sublimaze) 100 ml @ 2.5 mls/hr TITRATE IV Last administered on 13:04; Admin Dose 10 MLS/HR; Start 12/18/16 at 03:30 Dextrose (D50w Syringe) 25 ml Q15M PRN IV Till BS 80 mg/dL or above x2; Start 12/18/16 at 14:00 Dextrose (D50w Syringe) 50 ml Q15M PRN IV Till BS 80 mg/dL or above x2; Start 12/18/16 at 14:00 IV Flush 10 ml 10 ml PRN PRN IV IV PROTOCOL; Start 12/18/16 at 17:00 Norepinephrine/ Dextrose (Levophed/D5W) 250 ml @ 0.46 mls/hr TITRATE IV ; Start 12/19/16 at 09:30 Amlodipine Besylate 5 mg 5 mg DAILY PO Last administered on 12/27/16 08:43; Admin Dose 5 MG; Start 12/21/16 at 09:00 Midazolam HCl 50 ml @ 1 mls/hr TITRATE IV Last administered on 12/27/16 13:05; Admin Dose 10 MLS/HR; Start 12/20/16 at 14:00 Propofol (Diprivan) 100 ml @ 3.255 mls/ hr Q12H IV Last administered on 07:03; Admin Dose 19.53 MLS/HR; Start 12/20/16 at 20:30 Hydralazine HCl (Apresoline) 10 mg Q4H PRN IV sbp > 160 Last administered on 22:35; Admin Dose 10 MG; Start 12/22/16 at 06:30 Insulin Glargine (Lantus) 40 unit DAILY@20 SC Last administered on 12/26/16 21: 14; Admin Dose 40 UNIT; Start 12/23/16 at 20:00 Lorazepam (Ativan) 1 mg Q1H PRN IV agitation; Start 12/25/16 at 03:30 Carvedilol (Coreg) 6.25 mg BID PO Last administered on 12/27/16 08:43; Admin Dose 6.25 MG; Start 12/25/16 at 21:00 Methylprednisolone Sodium Succinate (Solu-Medrol) 60 mg Q8 IV Last administered on 12/27/16 15:22; Admin Dose 60 MG; Start 12/26/16 at 10:00 Insulin Aspart NOVOLOG *MILD* ALGORI... Q4 SC Last administered on 12/27/16 17: 55; Admin Dose 1 UNIT; Start 12/27/16 at 12:00 Piperacillin Sod/ Tazobactam Sod (Zosyn 2.25gm/ 50ml (Pmx)) 50 ml @ 100 mls/hr Q8 IVPB Last administered on 12/27/16 15:22; Admin Dose 100 MLS/HR; Start at 14:00 Fluconazole (Diflucan) 100 mg DAILY PO Last administered on 12/27/16 12:05; Admin Dose 100 MG; Start 12/27/16 at 12:00 Hydralazine HCl (Apresoline) 75 mg Q8 PO ; Start 12/27/16 at 22:00 Assessment/Plan Chief Complaint/Hosp Course 1. Positive DAISY of unclear significance so far. DS DNA still pending. No definite evidence of vasculitis, continues on steroids. 2. Respiratory failure. 3. Renal insufficiency Much improved. 4. Diabetes mellitus. Glucose increased on steroids. 5. Hypertension. Rec. Steroid dose per pulmonary Problems: ELIZABETH PUCKETT MD December 27, 2016 18:06
--- NOTE | 2016-12-27 19:26 | RADRPT ---
PROCEDURE: CT Chest. CLINICAL INDICATION: Dyspnea and sepsis TECHNIQUE: CT scan of the chest without contrast was performed on the GE [facility] CT scanner at [facility]. Sagittal and coronal reformatted images were obtained from the [facility]. The CTDIvol is 16.74 mGy and the DLP is 697.34 mGycm. One of the following 3 dose reduction techniques were used: Automated exposure control; adjustment of the mA and/or kV according to patient size; or use of iterative reconstruction technique. COMPARISON: Chest x-ray 12/26/2016 FINDINGS: The visualized base of the neck and bilateral thyroid lobes are normal. An endotracheal and enteric tube is present. The visualized pulmonary parenchyma is remarkable for right greater than left low er lobe and right upper greater than left upper lobe infiltrates. Small bilateral pleural effusions are present. No evidence for pulmonary nodules, masses, or pneumothorax is present. The mediastinum is unremarkable without evidence for mass or lymphadenopathy. The vascular structur es of the mediastinum are normal in course and caliber. Aortic vascular calcifications and coronary artery calcifications are present. The heart size is remarkable for mild cardiomegaly and a small 3 mm pericardial effusion. without evidence for pericardial thickening or effusion. The visualized liver is diffusely fatty infiltrated. The visualized spleen is normal. Mild abdomin al ascites is present in the perisplenic space. The pancreas, gallbladder, and bilateral adrenal gl ands are normal. The bilateral kidneys are normal. Mild diverticulosis is present without evidence for acute diverticulitis. The axillary regions, subpectoral regions, and supraclavicular regions are all unremarkable. The imaged osseous structures demonstrate degenerative spondylosis. IMPRESSION: 1. Multilobar pneumonia with bibasilar infiltrates greater than bilateral upper lobe infiltrates. 2. Small bilateral pleural effusions. 3. Mild cardiomegaly, small pericardial effusion and atherosclerotic vascular disease 4. Diffuse fatty infiltration of the liver 5. Mild perisplenic ascites 6. Mild diverticulosis without evidence for acute diverticulitis. 7. Endotracheal and enteric tubes and expected locations. RPTAT: HDC .Soniya Saucedo MD, MD Date Time Electronically viewed and signed by .Soniya Saucedo MD, on 12/27/2016 19:26 .C/
[2016-12-27] MEDS: INSULIN GLARGINE [LANtus] 3 ML PEN SC SCH (20:18)
[2016-12-27] MEDS: ATORVASTATIN 80 MG TAB PO SCH (20:58)
[2016-12-28] VITALS (57 sets, daily range): BP systolic 113–156; BP diastolic 51–75; PULSE 69–85; RESP 24–26
[2016-12-28] MEDS: INSULIN ASPART [NOVOLOG] 3 ML PEN SC SCH ×6 (01:05→20:46)
[2016-12-28] MEDS: LEVALBUTEROL (HFA) 15 GM INHALER INH SCH ×4 (01:08→19:38)
[2016-12-28] MEDS: PROPOFOL 100 ML IV SCH ×3 (04:06→21:53)
[2016-12-28 04:47] LABS: ADD SCAN DIFF NO
[2016-12-28] MEDS: MIDAZOLAM (DRIP) 50 mg/50 mL 50 ML IV SCH ×4 (04:56→21:52)
[2016-12-28 05:03] LABS: ABNORMAL IP MESSAGE 1; HEMATOCRIT 33.7 % (42.0-52.0); HEMOGLOBIN 10.5 g/dl (14.0-18.0); MEAN CORPUSCULAR HEMOGLOBIN 26.9 pg (29.0-33.0); MEAN CORPUSCULAR HGB CONC 31.2 g/dl (32.0-37.0); MEAN CORPUSCULAR VOLUME 86.4 fl (82.0-101.0); MEAN PLATELET VOLUME 11.5 fl (7.4-10.4); PLATELET COUNT 238 10^3/UL (140-415); RED CELL DISTRIBUTION WIDTH 13.5 % (11.5-14.5); WHITE BLOOD COUNT 18.4 10^3/ul (4.8-10.8)
[2016-12-28 05:14] LABS: POTASSIUM 3.5 mmol/L (3.5-5.1)
[2016-12-28 05:17] LABS: CREATININE 1.53 mg/dl (0.61-1.24)
[2016-12-28 05:18] LABS: CALCIUM 7.5 mg/dl (8.4-10.2); MAGNESIUM 2.1 mg/dl (1.7-2.5); PHOSPHORUS 4.8 mg/dl (2.5-4.9)
[2016-12-28] MEDS: PIPER-TAZO 2.25 GM (PMX) 50 ML IVPB SCH (05:29)
[2016-12-28] MEDS: METHYLPREDNISOLONE 125 MG INJ IV SCH ×3 (05:30→22:09)
[2016-12-28] MEDS: FUROSEMIDE 40 MG INJ IV SCH ×2 (05:31→17:12)
[2016-12-28] MEDS: LORAZEPAM 2 MG INJ IV PRN (06:35)
--- NOTE | 2016-12-28 08:10 | PN ---
DATE: 12/28/2016 SUBJECTIVE: The patient remains critically ill, on full ventilatory support. The patient continues to have good urinary output. No other acute events noted. No hemoptysis, hematemesis or hematoche abelardo. OBJECTIVE: VITAL SIGNS: Blood pressure 138/75, respirations 24, pulse 81, temperature 98.3. I's AND O'S: The patient had 2.4 liters in, 4.2 liters out. HEENT: Head is normocephalic. NECK: Supple. HEART: Regular rate. LUNGS: Showed diminished breath sounds at the base. Positive rhonchi and crackles. ABDOMEN: Soft, nontender to palpation. No rebound or guarding. EXTREMITIES: Negative for clubbing or cyanosis. No edema. DERMATOLOGIC: No rashes. MUSCULOSKELETAL: Have no joint effusion. NEUROLOGIC: No change in exam. MEDICATIONS: The patient's medications have been reviewed. LABORATORY DATA: CT scan of the chest shows multilobar pneumonia, bibasilar infiltrates in the uppe r lobes, diffuse fatty liver, perisplenic ascites. LABORATORY DATA: Shows sodium 145, potassium 3.4, chloride 107, bicarbonate 32, BUN 63, creatinine 1.53. White count 18.4, hemoglobin 10.5, hematocrit 33.7, platelet count is 238. ASSESSMENT AND PLAN: 1. Nonoliguric acute kidney injury, with a previous baseline creatinine of 1.0 mg/dL. Etiology of acute kidney injury is secondary to acute tubular necrosis due to septic shock and ischemic hypoperf usion. The patient's renal function appears to have stabilized around a creatinine of 1.5 mg/dL. A t this point continue the current treatment plan, supportive care, renally dose all meds. Please no te that the patient's DAISY was noted to be positive; however, ANCA was negative and the patient's uri nalysis did not show any evidence of active sediment consistent with tubular injury. 2. Volume overload secondary to acute kidney injury, sepsis and diastolic heart failure. Continue the current diuretic regimen. The patient has good urinary output. Will monitor renal function and electrolytes closely. 3. Hypernatremia. The patient has a free water deficit of approximately [address] free [address] flushes at the current rate. 4. Mineral bone disorder. Continue to monitor calcium and phosphorus levels. 5. Anemia. Continue to monitor hemoglobin and hematocrit levels. 6. Ventilatory dependent respiratory failure. Vent settings have been reviewed. ABG has been revi ewed. Continue to monitor. 7. Sepsis secondary to multifocal pneumonia. Continue the current antibiotic regimen. Follow up c ultures. 8. [id number] myocardial infarction. Continue the current treatment plan. 9. Diabetes. Continue the current insulin regimen. 10. Encephalopathy. No change. 11. Hypertension. Continue the current blood pressure regimen. 12. History of polysubstance abuse. Please note, I spent over 35 minutes of critical care time with this patient. Dictated By: LUIS JOSHI/NTS Conf#: [id number] DID#: [id number]
[2016-12-28] MEDS: SEVELAMER CARBONATE 2.4 GM PKT PO SCH ×3 (08:25→17:12)
[2016-12-28] MEDS: AMLODIPINE 5 MG TAB PO SCH (08:46)
[2016-12-28] MEDS: CHOLECALCIFEROL 1,000 UNIT TAB PO SCH (08:46)
[2016-12-28] MEDS: FLUCONAZOLE 100 MG TAB PO SCH (08:46)
[2016-12-28] MEDS: ASPIRIN 325 MG TAB PO SCH (08:46)
[2016-12-28] MEDS: FAMOTIDINE 20 MG TAB PO SCH ×2 (08:46→20:38)
[2016-12-28] MEDS: HEPARIN 5,000 UNIT/0.5 ML VIAL SC SCH ×2 (08:50→20:47)
[2016-12-28] MEDS: FENTAnyl (DRIP) 1000 mcg/100mL 100 ML IV SCH ×2 (08:53→18:43)
--- NOTE | 2016-12-28 09:29 | PN ---
Date/Time of Note Date/Time of Note DATE: 12/28/16 TIME: 09:25 Assessment/Plan VTE Prophylaxis VTE Prophylaxis Intervention: heparin Lines/Catheters IV Catheter Type (from [facility]): PICC Line Central line still needed: Yes Urinary Cath still in place: Yes Reason Cath still needed: other (indicate) Assessment/Plan Chief Complaint/Hosp Course 1. Sepsis secondary to underlying community-acquired pneumonia with septic shock. Currently off pressors. On ABX as per ID. Mycoplasma serology abnormal. 2. Acute hypoxic respiratory failure. Most probably secondary to underlying pneumonia versus others. Patient got intubated on 12/18/2016. Continue inhaled bronchodilators. Pulmonology following the patient. 3. Elevated troponins. Most probably a type 2 event from underlying sepsis and underlying acute kidney injury. Cardiology following. 4. Acute kidney injury. The patient had a normal creatinine of 1.00 on 2015. The patient's current acute kidney injury could be most probably secondary to dehydration from persistent vomiting. The patient's nephrotoxic drugs will be held at this time. Being followed by nephrology. 5. Type 2 diabetes mellitus. Uncontrolled. A1C is high (send out). The patient will be maintained on sliding scale insulin along with basal insulin. 6. Dyslipidemia. Continue statins. 7. Essential hypertension. Continue antihypertensives. 8. Hypocalcemia. Probably secondary to underlying hypoalbuminemia. 9. Microcytic, hypochromic anemia. Etiology unclear. Iron panel showing iron deficiency. Continue iron supplements. 10. Vitamin D deficiency. Continue supplements. 11. Fluids, electrolytes, and nutrition. Tube feedings. 12. DVT prophylaxis. Subcutaneous heparin. 13. Gastrointestinal prophylaxis. Histamine 2 receptor blockers. 14. Plan. Continue antibiotics. Continue ventilator support. Ventilator weaning as per Pulmonary. Case discussed with Dr. Perez. Critical care time: 35 minutes. Problems: Subjective 24 Hr Interval Summary Free Text/Dictation The patient remains on multiple sedatives. Exam/Review of Systems Vital Signs Vitals Vital Signs Date Time Temp Pulse Resp B/P Pulse Ox O2 Delivery O2 Flow Rate FiO2 12/28/16 08:00 80 12/28/16 07:07 24 95 70 12/28/16 07:00 117/56 12/28/16 05:00 98.3 12/27/16 13:00 Mechanical Ventilator Intake and Output 12/27/16 12/27/16 12/28/16 15:00 23:00 07:00 Intake Total 611 ml 1064.060 ml 1328.355 ml Output Total 2685 ml 830 ml 1310 ml Balance -2074 ml 234.060 ml 18.355 ml Exam GENERAL: This is a morbidly obese male lying in bed, orally intubated and mechanically ventilated. HEENT: Head normocephalic and atraumatic. Eyes: Anicteric sclerae. Conjunctivae clear. ENT: Nasal septum is midline. Oral mucosa is dry. NECK: Short with increased neck circumference. RESPIRATORY: Bilaterally diminished breath sounds. On mechanical ventilator. On 100% FiO2 with a PEEP of 8. CARDIAC: Regular rate and rhythm. S1, S2 heard. ABDOMEN: Soft, nontender and nondistended. Bowel sounds positive in all 4 quadrants. GENITOURINARY: Deferred. EXTREMITIES: No cyanosis, no clubbing. B/L LE edema. Pedal pulses palpable. Status post left great toe amputation. NEUROLOGIC: The patient is awake and alert. Follows commands. Results Result Diagram: 12/28/16 0430 12/28/16 0430 Results 24 hrs Laboratory Tests Test 12/27/16 12:03 12/27/16 15:30 12/27/16 17:41 12/27/16 20:12 Bedside Glucose 119 145 174 Sodium Level 144 Potassium Level 3.8 Chloride Level 111 H Carbon Dioxide Level 32 H Anion Gap 5 L Blood Urea Nitrogen 60 H Creatinine 1.37 H Glucose Level 125 # Calcium Level 7.6 L Test 12/28/16 00:59 12/28/16 04:30 12/28/16 04:58 12/28/16 08:48 Bedside Glucose 176 172 178 White Blood Count 18.4 #H Red Blood Count 3.90 L Hemoglobin 10.5 L Hematocrit 33.7 L Mean Corpuscular Volume 86.4 Mean Corpuscular Hemoglobin 26.9 L Mean Corpuscular Hemoglobin Concent 31.2 L Red Cell Distribution Width 13.5 Platelet Count 238 Mean Platelet Volume 11.5 H Neutrophils % 92.6 H Lymphocytes % 2.4 L Monocytes % 2.8 Eosinophils % 0.1 Basophils % 0.2 Nucleated Red Blood Cells % 0.0 Neutrophils # 16.8 H Lymphocytes # 0.4 L Monocytes # 0.5 Eosinophils # 0.0 Basophils # 0.0 Nucleated Red Blood Cells # 0.0 Sodium Level 145 H Potassium Level 3.5 Chloride Level 107 Carbon Dioxide Level 32 H Anion Gap 10 # Blood Urea Nitrogen 63 H Creatinine 1.53 H Glucose Level 195 Calcium Level 7.5 L Phosphorus Level 4.8 Magnesium Level 2.1 Medications Medications Current Medications Ondansetron HCl (Zofran Inj) 4 mg Q6H PRN IV NAUSEA AND/OR VOMITING; Start at 13:00 Acetaminophen (Tylenol Tab) 650 mg Q6H PRN PO PAIN LEVEL 1-3 OR FEVER Last administered on 12/25/16 03:33; Admin Dose 650 MG; Start 12/15/16 at 13:00 Acetaminophen/ Hydrocodone Bitart ([place] (5/325)) 1 tab Q6H PRN PO PAIN LEVEL 4 -6 Last administered on 12/15/16 22:08; Admin Dose 1 TAB; Start 12/15/16 at 13: 00 Morphine Sulfate (morphine) 2 mg Q4H PRN IV PAIN LEVEL 7-10 Last administered on 12/25/16 03:03; Admin Dose 2 MG; Start 12/15/16 at 13:00 Magnesium Hydroxide (Milk Of Mag) 30 ml DAILY PRN PO CONSTIPATION; Start at 13:00 Bisacodyl (Dulcolax) 5 mg DAILY PRN PO CONSTIPATION; Start 12/15/16 at 13:00 Famotidine (Pepcid) 20 mg Q12 PO Last administered on 12/28/16 08:46; Admin Dose 20 MG; Start 12/15/16 at 21:00 Hydralazine HCl (Apresoline) 10 mg Q6H PRN IV SBP>160 Last administered on 17:59; Admin Dose 10 MG; Start 12/15/16 at 13:00 Aspirin (Aspirin) 325 mg DAILY PO Last administered on 12/28/16 08:46; Admin Dose 325 MG; Start 12/16/16 at 09:00 Atorvastatin Calcium (Lipitor) 80 mg QHS PO Last administered on 12/27/16 20:58 ; Admin Dose 80 MG; Start 12/15/16 at 21:00 Heparin Sodium (Porcine) (Heparin (5000 Units/0.5 ml)) 5,000 unit BID SC Last administered on 12/28/16 08:50; Admin Dose 5,000 UNIT; Start 12/15/16 at 21:00 Miscellaneous Information 1 ea NOTE XX ; Start 12/15/16 at 14:00 Glucose (Glutose) 15 gm Q15M PRN PO DECREASED GLUCOSE; Start 12/15/16 at 14:00 Glucose (Glutose) 22.5 gm Q15M PRN PO DECREASED GLUCOSE; Start 12/15/16 at 14: 00 Glucagon (Glucagen) 1 mg Q15M PRN IM DECREASED GLUCOSE; Start 12/15/16 at 14:00 Glucose (Glutose) 15 gm Q15M PRN BUCCAL DECREASED GLUCOSE; Start 12/15/16 at 14 :00 Cholecalciferol 1000 unit 1,000 unit DAILY PO Last administered on 12/28/16 08: 46; Admin Dose 1,000 UNIT; Start 12/16/16 at 09:00 Fentanyl (Sublimaze) 100 ml @ 2.5 mls/hr TITRATE IV Last administered on 08:53; Admin Dose 10 MLS/HR; Start 12/18/16 at 03:30 Dextrose (D50w Syringe) 25 ml Q15M PRN IV Till BS 80 mg/dL or above x2; Start 12/18/16 at 14:00 Dextrose (D50w Syringe) 50 ml Q15M PRN IV Till BS 80 mg/dL or above x2; Start 12/18/16 at 14:00 IV Flush 10 ml 10 ml PRN PRN IV IV PROTOCOL; Start 12/18/16 at 17:00 Norepinephrine/ Dextrose (Levophed/D5W) 250 ml @ 0.46 mls/hr TITRATE IV ; Start 12/19/16 at 09:30 Amlodipine Besylate 5 mg 5 mg DAILY PO Last administered on 12/28/16 08:46; Admin Dose 5 MG; Start 12/21/16 at 09:00 Midazolam HCl 50 ml @ 1 mls/hr TITRATE IV Last administered on 12/28/16 04:56; Admin Dose 10 MLS/HR; Start 12/20/16 at 14:00 Propofol (Diprivan) 100 ml @ 3.255 mls/ hr Q12H IV Last administered on 04:06; Admin Dose 9.765 MLS/HR; Start 12/20/16 at 20:30 Hydralazine HCl (Apresoline) 10 mg Q4H PRN IV sbp > 160 Last administered on 22:35; Admin Dose 10 MG; Start 12/22/16 at 06:30 Insulin Glargine (Lantus) 40 unit DAILY@20 SC Last administered on 12/27/16 20: 18; Admin Dose 40 UNIT; Start 12/23/16 at 20:00 Lorazepam (Ativan) 1 mg Q1H PRN IV agitation Last administered on 12/28/16 06: 35; Admin Dose 1 MG; Start 12/25/16 at 03:30 Carvedilol (Coreg) 6.25 mg BID PO Last administered on 12/28/16 08:46; Admin Dose 6.25 MG; Start 12/25/16 at 21:00 Methylprednisolone Sodium Succinate (Solu-Medrol) 60 mg Q8 IV Last administered on 12/28/16 05:30; Admin Dose 60 MG; Start 12/26/16 at 10:00 Insulin Aspart NOVOLOG *MILD* ALGORI... Q4 SC Last administered on 12/28/16 08: 49; Admin Dose 1 UNIT; Start 12/27/16 at 12:00 Piperacillin Sod/ Tazobactam Sod (Zosyn 2.25gm/ 50ml (Pmx)) 50 ml @ 100 mls/hr Q8 IVPB Last administered on 12/28/16 05:29; Admin Dose 100 MLS/HR; Start at 14:00 Fluconazole (Diflucan) 100 mg DAILY PO Last administered on 12/28/16 08:46; Admin Dose 100 MG; Start 12/27/16 at 12:00 Hydralazine HCl (Apresoline) 75 mg Q8 PO Last administered on 12/28/16 05:30; Admin Dose 75 MG; Start 12/27/16 at 22:00 GEORGI CORBETT NP December 28, 2016 09:29
--- NOTE | 2016-12-28 09:36 | CONS ---
Date/Time of Note Date/Time of Note DATE: 12/28/16 TIME: 09:33 Assessment/Plan Assessment/Plan Additional Assessment/Plan CT chest was reviewed from yesterday without contrast which is showing bibasilar pneumonia. Current ventilator settings are AC of 24, tidal volume 500, PEEP of 8, 70% FiO2. Patient currently on fentanyl drip 100 mics per hour, propofol 40 mics per kilogram per minute. Versed 10 mg/h. Assessment recommendations; 1. Patient admitted with acute renal failure and acute respiratory failure. 2. 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 Patient however maintaining adequate urine output with stable serum creatinine. 3. Bilateral pneumonia. 4. Persistent hypoxemia on account of mild pulmonary edema as well as bilateral lower lobe pneumonia. Continue current treatment. Prognosis is guarded. 35 minutes of critical care time was spent evaluating the patient. Consultation Date/Type/Reason Admit Date/Time Dec 15, 2016 at 11:20 Type of Consultation: Pulmonary/critical care Referring Provider: LEXII REED 24 HR Interval Summary Free Text/Dictation Patient condition remains critical. Still requiring full ventilator support. Requiring sedation because of severe agitation whenever sedation is withheld. General exam; young male, orally intubated, sedated. Currently in no distress. Exam/Review of Systems Vital Signs Vitals Vital Signs Date Time Temp Pulse Resp B/P Pulse Ox O2 Delivery O2 Flow Rate FiO2 12/28/16 08:00 80 12/28/16 07:07 24 95 70 12/28/16 07:00 117/56 12/28/16 05:00 98.3 12/27/16 13:00 Mechanical Ventilator Intake and Output 12/27/16 12/27/16 12/28/16 15:00 23:00 07:00 Intake Total 611 ml 1064.060 ml 1328.355 ml Output Total 2685 ml 830 ml 1310 ml Balance -2074 ml 234.060 ml 18.355 ml Exam HEENT exam; supple neck, no JVD. No lymphadenopathy. Midline trachea. Orally intubated. Patient has fair dentition. Pupils are small bilaterally. Chest examination; clear to auscultation. S1-S2 audible, no murmurs. Abdomen examination; soft, non-distended. No organomegaly. Bowel sounds audible. Extremity examination; trace peripheral edema. Examination of the left. With multiple surgical scars involving the left foot. MEDICAL CODER examination; patient is sedated. Results Result Diagram: 12/28/16 0430 12/28/16 0430 Results 24 hrs Laboratory Tests Test 12/27/16 12:03 12/27/16 15:30 12/27/16 17:41 12/27/16 20:12 Bedside Glucose 119 145 174 Sodium Level 144 Potassium Level 3.8 Chloride Level 111 H Carbon Dioxide Level 32 H Anion Gap 5 L Blood Urea Nitrogen 60 H Creatinine 1.37 H Glucose Level 125 # Calcium Level 7.6 L Test 12/28/16 00:59 12/28/16 04:30 12/28/16 04:58 12/28/16 08:48 Bedside Glucose 176 172 178 White Blood Count 18.4 #H Red Blood Count 3.90 L Hemoglobin 10.5 L Hematocrit 33.7 L Mean Corpuscular Volume 86.4 Mean Corpuscular Hemoglobin 26.9 L Mean Corpuscular Hemoglobin Concent 31.2 L Red Cell Distribution Width 13.5 Platelet Count 238 Mean Platelet Volume 11.5 H Neutrophils % 92.6 H Lymphocytes % 2.4 L Monocytes % 2.8 Eosinophils % 0.1 Basophils % 0.2 Nucleated Red Blood Cells % 0.0 Neutrophils # 16.8 H Lymphocytes # 0.4 L Monocytes # 0.5 Eosinophils # 0.0 Basophils # 0.0 Nucleated Red Blood Cells # 0.0 Sodium Level 145 H Potassium Level 3.5 Chloride Level 107 Carbon Dioxide Level 32 H Anion Gap 10 # Blood Urea Nitrogen 63 H Creatinine 1.53 H Glucose Level 195 Calcium Level 7.5 L Phosphorus Level 4.8 Magnesium Level 2.1 Medications Medications Current Medications Ondansetron HCl (Zofran Inj) 4 mg Q6H PRN IV NAUSEA AND/OR VOMITING; Start at 13:00 Acetaminophen (Tylenol Tab) 650 mg Q6H PRN PO PAIN LEVEL 1-3 OR FEVER Last administered on 12/25/16 03:33; Admin Dose 650 MG; Start 12/15/16 at 13:00 Acetaminophen/ Hydrocodone Bitart ([place] (5/325)) 1 tab Q6H PRN PO PAIN LEVEL 4 -6 Last administered on 12/15/16 22:08; Admin Dose 1 TAB; Start 12/15/16 at 13: 00 Morphine Sulfate (morphine) 2 mg Q4H PRN IV PAIN LEVEL 7-10 Last administered on 12/25/16 03:03; Admin Dose 2 MG; Start 12/15/16 at 13:00 Magnesium Hydroxide (Milk Of Mag) 30 ml DAILY PRN PO CONSTIPATION; Start at 13:00 Bisacodyl (Dulcolax) 5 mg DAILY PRN PO CONSTIPATION; Start 12/15/16 at 13:00 Famotidine (Pepcid) 20 mg Q12 PO Last administered on 12/28/16 08:46; Admin Dose 20 MG; Start 12/15/16 at 21:00 Hydralazine HCl (Apresoline) 10 mg Q6H PRN IV SBP>160 Last administered on 17:59; Admin Dose 10 MG; Start 12/15/16 at 13:00 Aspirin (Aspirin) 325 mg DAILY PO Last administered on 12/28/16 08:46; Admin Dose 325 MG; Start 12/16/16 at 09:00 Atorvastatin Calcium (Lipitor) 80 mg QHS PO Last administered on 12/27/16 20:58 ; Admin Dose 80 MG; Start 12/15/16 at 21:00 Heparin Sodium (Porcine) (Heparin (5000 Units/0.5 ml)) 5,000 unit BID SC Last administered on 12/28/16 08:50; Admin Dose 5,000 UNIT; Start 12/15/16 at 21:00 Miscellaneous Information 1 ea NOTE XX ; Start 12/15/16 at 14:00 Glucose (Glutose) 15 gm Q15M PRN PO DECREASED GLUCOSE; Start 12/15/16 at 14:00 Glucose (Glutose) 22.5 gm Q15M PRN PO DECREASED GLUCOSE; Start 12/15/16 at 14: 00 Glucagon (Glucagen) 1 mg Q15M PRN IM DECREASED GLUCOSE; Start 12/15/16 at 14:00 Glucose (Glutose) 15 gm Q15M PRN BUCCAL DECREASED GLUCOSE; Start 12/15/16 at 14 :00 Cholecalciferol 1000 unit 1,000 unit DAILY PO Last administered on 12/28/16 08: 46; Admin Dose 1,000 UNIT; Start 12/16/16 at 09:00 Fentanyl (Sublimaze) 100 ml @ 2.5 mls/hr TITRATE IV Last administered on 08:53; Admin Dose 10 MLS/HR; Start 12/18/16 at 03:30 Dextrose (D50w Syringe) 25 ml Q15M PRN IV Till BS 80 mg/dL or above x2; Start 12/18/16 at 14:00 Dextrose (D50w Syringe) 50 ml Q15M PRN IV Till BS 80 mg/dL or above x2; Start 12/18/16 at 14:00 IV Flush 10 ml 10 ml PRN PRN IV IV PROTOCOL; Start 12/18/16 at 17:00 Norepinephrine/ Dextrose (Levophed/D5W) 250 ml @ 0.46 mls/hr TITRATE IV ; Start 12/19/16 at 09:30 Amlodipine Besylate 5 mg 5 mg DAILY PO Last administered on 12/28/16 08:46; Admin Dose 5 MG; Start 12/21/16 at 09:00 Midazolam HCl 50 ml @ 1 mls/hr TITRATE IV Last administered on 12/28/16 04:56; Admin Dose 10 MLS/HR; Start 12/20/16 at 14:00 Propofol (Diprivan) 100 ml @ 3.255 mls/ hr Q12H IV Last administered on 04:06; Admin Dose 9.765 MLS/HR; Start 12/20/16 at 20:30 Hydralazine HCl (Apresoline) 10 mg Q4H PRN IV sbp > 160 Last administered on 22:35; Admin Dose 10 MG; Start 12/22/16 at 06:30 Insulin Glargine (Lantus) 40 unit DAILY@20 SC Last administered on 12/27/16 20: 18; Admin Dose 40 UNIT; Start 12/23/16 at 20:00 Lorazepam (Ativan) 1 mg Q1H PRN IV agitation Last administered on 12/28/16 06: 35; Admin Dose 1 MG; Start 12/25/16 at 03:30 Carvedilol (Coreg) 6.25 mg BID PO Last administered on 12/28/16 08:46; Admin Dose 6.25 MG; Start 12/25/16 at 21:00 Methylprednisolone Sodium Succinate (Solu-Medrol) 60 mg Q8 IV Last administered on 12/28/16 05:30; Admin Dose 60 MG; Start 12/26/16 at 10:00 Insulin Aspart [place] *MILD* ALGORI... Q4 SC Last administered on 12/28/16 08: 49; Admin Dose 1 UNIT; Start 12/27/16 at 12:00 Piperacillin Sod/ Tazobactam Sod (Zosyn 2.25gm/ 50ml (Pmx)) 50 ml @ 100 mls/hr Q8 IVPB Last administered on 12/28/16 05:29; Admin Dose 100 MLS/HR; Start at 14:00 Fluconazole (Diflucan) 100 mg DAILY PO Last administered on 12/28/16 08:46; Admin Dose 100 MG; Start 12/27/16 at 12:00 Hydralazine HCl (Apresoline) 75 mg Q8 PO Last administered on 12/28/16 05:30; Admin Dose 75 MG; Start 12/27/16 at 22:00 JESS STALLINGS December 28, 2016 09:36
[2016-12-28 10:01] LABS: LYMPHOCYTES # 0.2 10^3/ul (0.8-2.9); MYELOCYTES # 0.2; NEUTROPHIL # 17.8 10^3/ul (1.6-7.5)
--- NOTE | 2016-12-28 11:24 | CONS ---
Date/Time of Note Date/Time of Note DATE: 12/28/16 TIME: 11:20 Assessment/Plan Assessment/Plan Chief Complaint/Hosp Course IMPRESSION: 1. Positive troponin, assess significance.-no sig uptrend/likely demand event in settng fevers/tachy/resp distress 2. Abnormal electrocardiogram with ST depressions with tachycardia and positive troponin, likely indicative of coronary artery disease.-improved ecg findings with improved HR 3. Hypertension, uncontrolled mildly still 4. Dyslipidemia. 5. Diabetes mellitus. 6. Fevers to 104 documented here in the hospital.-ongoing low grade 7. Renal failure.-acute on chronic/ ? secondary to vasculitic syndrome 8. Lower extremity edema, assess for congestive heart failure/CHF-diastolic acute on chronic 9. Nausea and vomiting. 10. Chest pain with cough. 11.Resp failure s/p intubation 12. Bradycardia-to 40's.Now improved and tolerating BB Recc: -Tele -serial ecg's -Continue asa/statin -Continue abx's and f/u cx data -Continue bronchodilators and steroids. -Follow volume status closely and continue lasix diuresis -wean vent as tolerated -Continue hydralazine/norvasc -Continue coreg and follow HR closely -Ongoing eval for vasculitic syndrome per rheum Problems: Consultation Date/Type/Reason Admit Date/Time Dec 15, 2016 at 11:20 Initial Consult Date 12/15/2016 Type of Consultation: Cardiology Reason for Consultation positive troponin Referring Provider: LEXII REED Exam/Review of Systems Vital Signs Vitals Vital Signs Date Time Temp Pulse Resp B/P Pulse Ox O2 Delivery O2 Flow Rate FiO2 12/28/16 11:04 72 24 98 70 12/28/16 09:00 124/62 Mechanical Ventilator 12/28/16 08:00 100.6 Intake and Output 12/27/16 12/27/16 12/28/16 15:00 23:00 07:00 Intake Total 611 ml 1064.060 ml 1328.355 ml Output Total 2685 ml 830 ml 1310 ml Balance -2074 ml 234.060 ml 18.355 ml Exam Review of Systems: CONSTITUTIONAL: No fevers, chills. PULMONARY: intubated CARDIOVASCULAR: No obvious chest pain/palpitations GASTROINTESTINAL: No nausea/vomiting. GENITOURINARY: No hematuria/dysuria. MUSCULOSKELETAL: No obvious myagias/arthalgias. PSYCHIATRIC: No documented depression. NEUROLOGIC: sedated Constitutional: other (sedated) Psych: no complaints Head: normocephalic ENMT: intubated Neck: jvd (9 cm water), supple Respiratory: other (upper airway rhocherous sounds) Cardiovascular: regular rate and rhythm Gastrointestinal: non-tender, soft Musculoskeletal: muscle tone (normal) Extremities: edema (none) Neurological: other (No focal deficits) Results Result Diagram: 12/28/16 0430 12/28/16 0430 Results 24 hrs Laboratory Tests Test 12/27/16 12:03 12/27/16 15:30 12/27/16 17:41 12/27/16 20:12 Bedside Glucose 119 145 174 Sodium Level 144 Potassium Level 3.8 Chloride Level 111 H Carbon Dioxide Level 32 H Anion Gap 5 L Blood Urea Nitrogen 60 H Creatinine 1.37 H Glucose Level 125 # Calcium Level 7.6 L Test 12/28/16 00:59 12/28/16 04:30 12/28/16 04:58 12/28/16 08:48 Bedside Glucose 176 172 178 White Blood Count 18.4 #H Red Blood Count 3.90 L Hemoglobin 10.5 L Hematocrit 33.7 L Mean Corpuscular Volume 86.4 Mean Corpuscular Hemoglobin 26.9 L Mean Corpuscular Hemoglobin Concent 31.2 L Red Cell Distribution Width 13.5 Platelet Count 238 Mean Platelet Volume 11.5 H Neutrophils % 97.0 H Lymphocytes % 1.0 L Monocytes % Pending Eosinophils % Pending Basophils % Pending Myelocytes % 1.0 H Promyelocytes % 1.0 H Nucleated Red Blood Cells % 0.0 Neutrophils # 17.8 H Lymphocytes # 0.2 L Monocytes # Pending Eosinophils # Pending Basophils # Pending Myelocytes # 0.2 Promyelocytes # 0.2 Nucleated Red Blood Cells # 0.0 Sodium Level 145 H Potassium Level 3.5 Chloride Level 107 Carbon Dioxide Level 32 H Anion Gap 10 # Blood Urea Nitrogen 63 H Creatinine 1.53 H Glucose Level 195 Calcium Level 7.5 L Phosphorus Level 4.8 Magnesium Level 2.1 Medications Medications Current Medications Ondansetron HCl (Zofran Inj) 4 mg Q6H PRN IV NAUSEA AND/OR VOMITING; Start at 13:00 Acetaminophen (Tylenol Tab) 650 mg Q6H PRN PO PAIN LEVEL 1-3 OR FEVER Last administered on 12/25/16 03:33; Admin Dose 650 MG; Start 12/15/16 at 13:00 Acetaminophen/ Hydrocodone Bitart ([place] (5/325)) 1 tab Q6H PRN PO PAIN LEVEL 4 -6 Last administered on 12/15/16 22:08; Admin Dose 1 TAB; Start 12/15/16 at 13: 00 Morphine Sulfate (morphine) 2 mg Q4H PRN IV PAIN LEVEL 7-10 Last administered on 12/25/16 03:03; Admin Dose 2 MG; Start 12/15/16 at 13:00 Magnesium Hydroxide (Milk Of Mag) 30 ml DAILY PRN PO CONSTIPATION; Start at 13:00 Bisacodyl (Dulcolax) 5 mg DAILY PRN PO CONSTIPATION; Start 12/15/16 at 13:00 Famotidine (Pepcid) 20 mg Q12 PO Last administered on 12/28/16 08:46; Admin Dose 20 MG; Start 12/15/16 at 21:00 Hydralazine HCl (Apresoline) 10 mg Q6H PRN IV SBP>160 Last administered on 17:59; Admin Dose 10 MG; Start 12/15/16 at 13:00 Aspirin (Aspirin) 325 mg DAILY PO Last administered on 12/28/16 08:46; Admin Dose 325 MG; Start 12/16/16 at 09:00 Atorvastatin Calcium (Lipitor) 80 mg QHS PO Last administered on 12/27/16 20:58 ; Admin Dose 80 MG; Start 12/15/16 at 21:00 Heparin Sodium (Porcine) (Heparin (5000 Units/0.5 ml)) 5,000 unit BID SC Last administered on 12/28/16 08:50; Admin Dose 5,000 UNIT; Start 12/15/16 at 21:00 Miscellaneous Information 1 ea NOTE XX ; Start 12/15/16 at 14:00 Glucose (Glutose) 15 gm Q15M PRN PO DECREASED GLUCOSE; Start 12/15/16 at 14:00 Glucose (Glutose) 22.5 gm Q15M PRN PO DECREASED GLUCOSE; Start 12/15/16 at 14: 00 Glucagon (Glucagen) 1 mg Q15M PRN IM DECREASED GLUCOSE; Start 12/15/16 at 14:00 Glucose (Glutose) 15 gm Q15M PRN BUCCAL DECREASED GLUCOSE; Start 12/15/16 at 14 :00 Cholecalciferol 1000 unit 1,000 unit DAILY PO Last administered on 12/28/16 08: 46; Admin Dose 1,000 UNIT; Start 12/16/16 at 09:00 Fentanyl (Sublimaze) 100 ml @ 2.5 mls/hr TITRATE IV Last administered on 08:53; Admin Dose 10 MLS/HR; Start 12/18/16 at 03:30 Dextrose (D50w Syringe) 25 ml Q15M PRN IV Till BS 80 mg/dL or above x2; Start 12/18/16 at 14:00 Dextrose (D50w Syringe) 50 ml Q15M PRN IV Till BS 80 mg/dL or above x2; Start 12/18/16 at 14:00 IV Flush 10 ml 10 ml PRN PRN IV IV PROTOCOL; Start 12/18/16 at 17:00 Norepinephrine/ Dextrose (Levophed/D5W) 250 ml @ 0.46 mls/hr TITRATE IV ; Start 12/19/16 at 09:30 Amlodipine Besylate 5 mg 5 mg DAILY PO Last administered on 12/28/16 08:46; Admin Dose 5 MG; Start 12/21/16 at 09:00 Midazolam HCl 50 ml @ 1 mls/hr TITRATE IV Last administered on 12/28/16 11:12; Admin Dose 10 MLS/HR; Start 12/20/16 at 14:00 Propofol (Diprivan) 100 ml @ 3.255 mls/ hr Q12H IV Last administered on 04:06; Admin Dose 9.765 MLS/HR; Start 12/20/16 at 20:30 Hydralazine HCl (Apresoline) 10 mg Q4H PRN IV sbp > 160 Last administered on 22:35; Admin Dose 10 MG; Start 12/22/16 at 06:30 Insulin Glargine (Lantus) 40 unit DAILY@20 SC Last administered on 12/27/16 20: 18; Admin Dose 40 UNIT; Start 12/23/16 at 20:00 Lorazepam (Ativan) 1 mg Q1H PRN IV agitation Last administered on 12/28/16 06: 35; Admin Dose 1 MG; Start 12/25/16 at 03:30 Carvedilol (Coreg) 6.25 mg BID PO Last administered on 12/28/16 08:46; Admin Dose 6.25 MG; Start 12/25/16 at 21:00 Methylprednisolone Sodium Succinate (Solu-Medrol) 60 mg Q8 IV Last administered on 12/28/16 05:30; Admin Dose 60 MG; Start 12/26/16 at 10:00 Insulin Aspart NOVOLOG *MILD* ALGORI... Q4 SC Last administered on 12/28/16 08: 49; Admin Dose 1 UNIT; Start 12/27/16 at 12:00 Piperacillin Sod/ Tazobactam Sod (Zosyn 2.25gm/ 50ml (Pmx)) 50 ml @ 100 mls/hr Q8 IVPB Last administered on 12/28/16 05:29; Admin Dose 100 MLS/HR; Start at 14:00 Fluconazole (Diflucan) 100 mg DAILY PO Last administered on 12/28/16 08:46; Admin Dose 100 MG; Start 12/27/16 at 12:00 Hydralazine HCl (Apresoline) 75 mg Q8 PO Last administered on 12/28/16 05:30; Admin Dose 75 MG; Start 12/27/16 at 22:00 VI ADAMES December 28, 2016 11:24
[2016-12-28] MEDS ORDERED: VANCOMYCIN IV PER PHARMACY XX SCH (12:00)
[2016-12-28] MEDS ORDERED: CASPOFUNGIN 70 MG in SOD CHLORIDE 0.9% 250 ML IVPB ONE (12:00)
--- NOTE | 2016-12-28 12:05 | PN ---
DATE: 12/28/2016 SUBJECTIVE: No events overnight. The patient is lying comfortably in bed. VITAL SIGNS: T-max this morning 100.6. He is in no distress. WBC 18.4, H and H 10.5 and 33.7, platelets 238, neutrophils 97. BUN 63, creatinine 1.53. MICROBIOLOGY: Endotracheal aspirate growing coagulase-negative Staphylococcus species, Estrellita albicans and Estrellita glabrata. Urine culture growing Estrellita albicans. ANTIMICROBIALS: The patient is on: 1. Zosyn. 2. Fluconazole. INDWELLINGS: Endotracheal tube, NG tube, Ritchie catheter, PICC line placed on December 18. PHYSICAL EXAMINATION: GENERAL: This is a morbidly obese, well-developed, middle-aged man who is in no distress. HEENT: Head atraumatic, normocephalic. Sclerae anicteric. Buccal mucosa dry. NECK: Supple. CHEST: Rise symmetrical. Breath sounds diminished to bases. HEART: S1, S2. ABDOMEN: Soft, bowel tones present. EXTREMITIES: Without cyanosis. Bilateral trace edema. ASSESSMENT: 1. Sepsis. 2. Multilobar pneumonia with sputum culture growing coagulase-negative staph and yeast. 3. Estrellita albicans urinary tract infection. 4. Severe hypoxemia secondary to above. 5. Diabetes. 6. Hypertension. 7. Acute kidney injury. 8. Leukocytosis secondary to sepsis and also steroid induced. PLAN: We are going to change Zosyn to meropenem, start vancomycin. Change Diflucan to Cancidas. Continue present, care management per primary team and consultants. Dictated By: YOLETTE RODRIGUEZ ANDROID [employer] DEVELOPER for DANUTA ROSE/SUNDEEP Conf#: [id number] DID#: [id number] MTDD
[2016-12-28] MEDS: MEROPENEM 500 MG/100 ML (PMX) 100 ML IVPB SCH (12:58)
[2016-12-28] MEDS ORDERED: VANCOMYCIN 2 GM in SOD CHLORIDE 0.9% 500 ML IVPB SCH (14:00)
[2016-12-28] MEDS: ACETAMINOPHEN 325 MG TAB PO PRN (15:44)
--- NOTE | 2016-12-28 20:23 | CONS ---
Date/Time of Note Date/Time of Note DATE: 12/28/16 TIME: 20:21 Consult Date/Type/Reason Admit Date/Time Dec 15, 2016 at 11:20 Type of Consultation: Rheum Ordering Provider: LEXII REED Subjective Continues sedated./ Intubated. Off pressors. Objective Vital Signs Date Time Temp Pulse Resp B/P Pulse Ox O2 Delivery O2 Flow Rate FiO2 12/28/16 18:30 73 151/71 97 12/28/16 18:00 24 Mechanical Ventilator 12/28/16 17:00 70 12/28/16 17:00 99.9 Intake and Output 12/27/16 12/27/16 12/28/16 14:59 22:59 06:59 Intake Total 630.5 ml 1054.295 ml 1328.355 ml Output Total 2860 ml 855 ml 860 ml Balance -2229.5 ml 199.295 ml 468.355 ml Exam Sedated, intubated. Skin without new acute lesions. Chest scattered crackles. Heart RRR Abd soft. Ext. No synovitis Results/Medications Result Diagram: 12/28/16 0430 12/28/16 0430 Results 24 hrs Laboratory Tests Test 12/28/16 00:59 12/28/16 04:30 12/28/16 04:58 12/28/16 08:48 Bedside Glucose 176 172 178 White Blood Count 18.4 #H Red Blood Count 3.90 L Hemoglobin 10.5 L Hematocrit 33.7 L Mean Corpuscular Volume 86.4 Mean Corpuscular Hemoglobin 26.9 L Mean Corpuscular Hemoglobin Concent 31.2 L Red Cell Distribution Width 13.5 Platelet Count 238 Mean Platelet Volume 11.5 H Neutrophils % 97.0 H Lymphocytes % 1.0 L Monocytes % Pending Eosinophils % Pending Basophils % Pending Myelocytes % 1.0 H Promyelocytes % 1.0 H Nucleated Red Blood Cells % 0.0 Neutrophils # 17.8 H Lymphocytes # 0.2 L Monocytes # Pending Eosinophils # Pending Basophils # Pending Myelocytes # 0.2 Promyelocytes # 0.2 Nucleated Red Blood Cells # 0.0 Sodium Level 145 H Potassium Level 3.5 Chloride Level 107 Carbon Dioxide Level 32 H Anion Gap 10 # Blood Urea Nitrogen 63 H Creatinine 1.53 H Glucose Level 195 Calcium Level 7.5 L Phosphorus Level 4.8 Magnesium Level 2.1 Test 12/28/16 12:54 12/28/16 17:07 Bedside Glucose 202 218 Medications Current Medications Ondansetron HCl (Zofran Inj) 4 mg Q6H PRN IV NAUSEA AND/OR VOMITING; Start at 13:00 Acetaminophen (Tylenol Tab) 650 mg Q6H PRN PO PAIN LEVEL 1-3 OR FEVER Last administered on 12/28/16 15:44; Admin Dose 650 MG; Start 12/15/16 at 13:00 Acetaminophen/ Hydrocodone Bitart ([place] (5/325)) 1 tab Q6H PRN PO PAIN LEVEL 4 -6 Last administered on 12/15/16 22:08; Admin Dose 1 TAB; Start 12/15/16 at 13: 00 Morphine Sulfate (morphine) 2 mg Q4H PRN IV PAIN LEVEL 7-10 Last administered on 12/25/16 03:03; Admin Dose 2 MG; Start 12/15/16 at 13:00 Magnesium Hydroxide (Milk Of Mag) 30 ml DAILY PRN PO CONSTIPATION; Start at 13:00 Bisacodyl (Dulcolax) 5 mg DAILY PRN PO CONSTIPATION; Start 12/15/16 at 13:00 Famotidine (Pepcid) 20 mg Q12 PO Last administered on 12/28/16 08:46; Admin Dose 20 MG; Start 12/15/16 at 21:00 Hydralazine HCl (Apresoline) 10 mg Q6H PRN IV SBP>160 Last administered on 17:59; Admin Dose 10 MG; Start 12/15/16 at 13:00 Aspirin (Aspirin) 325 mg DAILY PO Last administered on 12/28/16 08:46; Admin Dose 325 MG; Start 12/16/16 at 09:00 Atorvastatin Calcium (Lipitor) 80 mg QHS PO Last administered on 12/27/16 20:58 ; Admin Dose 80 MG; Start 12/15/16 at 21:00 Heparin Sodium (Porcine) (Heparin (5000 Units/0.5 ml)) 5,000 unit BID SC Last administered on 12/28/16 08:50; Admin Dose 5,000 UNIT; Start 12/15/16 at 21:00 Miscellaneous Information 1 ea NOTE XX ; Start 12/15/16 at 14:00 Glucose (Glutose) 15 gm Q15M PRN PO DECREASED GLUCOSE; Start 12/15/16 at 14:00 Glucose (Glutose) 22.5 gm Q15M PRN PO DECREASED GLUCOSE; Start 12/15/16 at 14: 00 Glucagon (Glucagen) 1 mg Q15M PRN IM DECREASED GLUCOSE; Start 12/15/16 at 14:00 Glucose (Glutose) 15 gm Q15M PRN BUCCAL DECREASED GLUCOSE; Start 12/15/16 at 14 :00 Cholecalciferol 1000 unit 1,000 unit DAILY PO Last administered on 12/28/16 08: 46; Admin Dose 1,000 UNIT; Start 12/16/16 at 09:00 Fentanyl (Sublimaze) 100 ml @ 2.5 mls/hr TITRATE IV Last administered on 18:43; Admin Dose 10 MLS/HR; Start 12/18/16 at 03:30 Dextrose (D50w Syringe) 25 ml Q15M PRN IV Till BS 80 mg/dL or above x2; Start 12/18/16 at 14:00 Dextrose (D50w Syringe) 50 ml Q15M PRN IV Till BS 80 mg/dL or above x2; Start 12/18/16 at 14:00 IV Flush 10 ml 10 ml PRN PRN IV IV PROTOCOL; Start 12/18/16 at 17:00 Norepinephrine/ Dextrose (Levophed/D5W) 250 ml @ 0.46 mls/hr TITRATE IV ; Start 12/19/16 at 09:30 Amlodipine Besylate 5 mg 5 mg DAILY PO Last administered on 12/28/16 08:46; Admin Dose 5 MG; Start 12/21/16 at 09:00 Midazolam HCl 50 ml @ 1 mls/hr TITRATE IV Last administered on 12/28/16 17:04; Admin Dose 10 MLS/HR; Start 12/20/16 at 14:00 Propofol (Diprivan) 100 ml @ 3.255 mls/ hr Q12H IV Last administered on 15:30; Admin Dose 3.255 MLS/HR; Start 12/20/16 at 20:30 Hydralazine HCl (Apresoline) 10 mg Q4H PRN IV sbp > 160 Last administered on 22:35; Admin Dose 10 MG; Start 12/22/16 at 06:30 Insulin Glargine (Lantus) 40 unit DAILY@20 SC Last administered on 12/27/16 20: 18; Admin Dose 40 UNIT; Start 12/23/16 at 20:00 Lorazepam (Ativan) 1 mg Q1H PRN IV agitation Last administered on 12/28/16 06: 35; Admin Dose 1 MG; Start 12/25/16 at 03:30 Carvedilol (Coreg) 6.25 mg BID PO Last administered on 12/28/16 08:46; Admin Dose 6.25 MG; Start 12/25/16 at 21:00 Methylprednisolone Sodium Succinate (Solu-Medrol) 60 mg Q8 IV Last administered on 12/28/16 13:02; Admin Dose 60 MG; Start 12/26/16 at 10:00 Insulin Aspart (Novolog Insulin Pen) NOVOLOG *MILD* ALGORI... Q4 SC Last administered on 12/28/16 17:12; Admin Dose 2 UNIT; Start 12/27/16 at 12:00 Hydralazine HCl 75 mg 75 mg Q8 PO Last administered on 12/28/16 13:02; Admin Dose 75 MG; Start 12/27/16 at 22:00 Meropenem 100 ml @ 200 mls/hr Q12 IVPB Last administered on 12/28/16 12:58; Admin Dose 200 MLS/HR; Start 12/28/16 at 13:00 Caspofungin 50 mg/ Sodium Chloride 250 ml @ 250 mls/hr Q24H IVPB ; Start at 12:00 Vancomycin HCl/ Sodium Chloride (Vancocin/NS) 500 ml @ 125 mls/hr Q24H IVPB ; Start 12/29/16 at 15:00 Assessment/Plan Chief Complaint/Hosp Course 1. Positive DAISY of unclear significance so far. DS DNA still pending. No definite evidence of vasculitis, Continues on steroids empirically . 2. Respiratory failure. 3. Renal insufficiency Much improved. 4. Diabetes mellitus. Glucose increased on steroids. 5. Hypertension. Rec. Steroid dose per pulmonary Problems: ELIZABETH PUCKETT MD December 28, 2016 20:23
[2016-12-28] MEDS: ATORVASTATIN 80 MG TAB PO SCH (20:38)
[2016-12-28] MEDS: INSULIN GLARGINE [LANtus] 3 ML PEN SC SCH (20:48)
[2016-12-28 21:08] LABS: TOTAL CELLS COUNTED % 100
[2016-12-28 21:10] LABS: PLATELET ESTIMATE PLT APPEAR ADEQUATE
[2016-12-28 21:12] LABS: MONOCYTE # 0.6 10^3/ul (0.3-0.9)
[2016-12-29] VITALS (53 sets, daily range): BP systolic 107–164; BP diastolic 53–118; PULSE 56–86; RESP 14–25
[2016-12-29] MEDS: MEROPENEM 500 MG/100 ML (PMX) 100 ML IVPB SCH ×3 (00:09→20:08)
[2016-12-29] MEDS: INSULIN ASPART [NOVOLOG] 3 ML PEN SC SCH ×7 (00:59→20:15)
[2016-12-29] MEDS: LEVALBUTEROL (HFA) 15 GM INHALER INH SCH ×4 (01:21→19:44)
[2016-12-29] MEDS: LORAZEPAM 2 MG INJ IV PRN ×2 (02:11→16:35)
[2016-12-29] MEDS: MIDAZOLAM (DRIP) 50 mg/50 mL 50 ML IV SCH ×5 (04:14→23:54)
[2016-12-29 05:10] LABS: ADD SCAN DIFF NO
[2016-12-29 05:18] LABS: BASOPHILS % 0.1 % (0.0-2.0); EOSINOPHILS % 0.1 % (0.0-7.0); HEMATOCRIT 32.5 % (42.0-52.0); HEMOGLOBIN 10.2 g/dl (14.0-18.0); LYMPHOCYTES # 0.7 10^3/ul (0.8-2.9); LYMPHOCYTES % 3.2 % (15.0-51.0); MEAN CORPUSCULAR HEMOGLOBIN 26.8 pg (29.0-33.0); MEAN CORPUSCULAR HGB CONC 31.4 g/dl (32.0-37.0); MEAN CORPUSCULAR VOLUME 85.5 fl (82.0-101.0); MEAN PLATELET VOLUME 11.3 fl (7.4-10.4); MONOCYTE # 0.8 10^3/ul (0.3-0.9); MONOCYTES % 3.6 % (0.0-11.0); NEUTROPHIL # 19.1 10^3/ul (1.6-7.5); NEUTROPHILS % 91.4 % (39.0-77.0); PLATELET COUNT 227 10^3/UL (140-415); RED CELL DISTRIBUTION WIDTH 13.2 % (11.5-14.5); WHITE BLOOD COUNT 20.9 10^3/ul (4.8-10.8)
[2016-12-29] MEDS: FENTAnyl (DRIP) 1000 mcg/100mL 100 ML IV SCH ×3 (05:40→23:54)
[2016-12-29] MEDS: PROPOFOL 100 ML IV SCH ×5 (05:41→23:54)
[2016-12-29] MEDS: FUROSEMIDE 40 MG INJ IV SCH ×2 (05:42→17:23)
[2016-12-29] MEDS: METHYLPREDNISOLONE 125 MG INJ IV SCH ×3 (05:42→21:48)
[2016-12-29 05:48] LABS: CALCIUM 7.5 mg/dl (8.4-10.2); CREATININE 1.53 mg/dl (0.61-1.24); MAGNESIUM 2.2 mg/dl (1.7-2.5); PHOSPHORUS 4.6 mg/dl (2.5-4.9); POTASSIUM 3.6 mmol/L (3.5-5.1)
[2016-12-29] MEDS: ACETAMINOPHEN 325 MG TAB PO PRN (06:02)
--- NOTE | 2016-12-29 07:59 | PN ---
DATE: 12/29/2016 SUBJECTIVE: The patient remains critically ill, on full ventilatory support, continues to be afebri le. No other events noted. OBJECTIVE: VITAL SIGNS: Blood pressure 153/70, respirations 24, pulse 73, temperature 98.6. INTAKE AND OUTPUT: The patient had 3 liters, and 3 liters out. HEENT: Head is normocephalic. NECK: Supple. HEART: Regular rate. LUNGS: Showed diminished breath sounds at the base. Positive rhonchi. ABDOMEN: Soft, nontender to palpation. No rebound or guarding. EXTREMITIES: Negative for clubbing or cyanosis. Positive edema. DERMATOLOGIC: No rashes. MUSCULOSKELETAL: No joint effusions. NEUROLOGIC: No change in exam. MEDICATIONS: The patient's medications have been reviewed. LABORATORY DATA: Shows sodium 141, potassium 2.6, chloride 107, BUN 69, creatinine 1.53. White cou nt is 20.9, hemoglobin 10.2, hematocrit 32.5, platelet count is 227. The patient's medications have been reviewed. Cultures have been reviewed. ASSESSMENT AND PLAN: 1. Nonoliguric acute kidney injury, with a previous baseline creatinine of 1.0 mg/dL. Etiology of acute kidney injury is secondary to acute tubular necrosis due to septic shock and ischemic hypoperf usion. The patient's renal function appears to have stabilized around a creatinine of 1.5 mg/dL. A t this point will continue the current treatment plan, supportive care, renally dose all meds, danny nue the current diuretic regimen. The patient is noted to have a positive DAISY, but ANCA was negativ e and the patient's urinalysis showed no evidence of active sediment. 2. Volume overload secondary to acute kidney injury, sepsis, and diastolic heart failure. Continue the current diuretic regimen. Continue to monitor electrolytes and renal function. 3. Hypernatremia. Improving. Continue free water flushes at 400 mL q.4h. May consider decreasing the rate if sodium levels continue to decline. 4. Mineral bone disorder. Continue to monitor calcium and phosphorus levels. 5. Anemia. Continue to monitor hemoglobin and hematocrit levels. 6. Ventilator-dependent respiratory failure. Vent settings have been reviewed. ABG has been revie wed. Continue to monitor. 7. Sepsis secondary to multifocal pneumonia. Patient remains on an antibiotic regimen. Will danny nue to monitor. 8. Non-ST elevation myocardial infarction. Continue the current treatment plan. 9. Diabetes. Continue the current insulin regimen. 10. Hypertension. Continue the current blood pressure regimen. 11. Encephalopathy. No change. 12. History of polysubstance abuse. Please note, I spent over 35 minutes of critical care time with this patient. Dictated By: LUIS JOSHI/SUNDEEP Conf#: [id number] DID#: [id number]
[2016-12-29] MEDS: SEVELAMER CARBONATE 2.4 GM PKT PO SCH ×3 (08:50→16:39)
[2016-12-29] MEDS: CHOLECALCIFEROL 1,000 UNIT TAB PO SCH (08:51)
[2016-12-29] MEDS: ASPIRIN 325 MG TAB PO SCH (08:51)
[2016-12-29] MEDS: FAMOTIDINE 20 MG TAB PO SCH ×2 (08:51→20:08)
[2016-12-29] MEDS: AMLODIPINE 5 MG TAB PO SCH (08:51)
[2016-12-29] MEDS: HEPARIN 5,000 UNIT/0.5 ML VIAL SC SCH ×2 (08:53→20:14)
--- NOTE | 2016-12-29 09:12 | PN ---
Date/Time of Note Date/Time of Note DATE: 12/29/16 TIME: 09:09 Assessment/Plan VTE Prophylaxis VTE Prophylaxis Intervention: heparin Lines/Catheters IV C[facility]ter Type (from [facility]): PICC Line Central line still needed: Yes Urinary Cath still in place: Yes Reason Cath still needed: other (indicate) Assessment/Plan Chief Complaint/Hosp Course 1. Sepsis secondary to underlying community-acquired pneumonia with septic shock. Currently off pressors. On ABX as per ID. Mycoplasma serology abnormal. 2. Acute hypoxic respiratory failure. Most probably secondary to underlying pneumonia versus others. Patient got intubated on 12/18/2016. Continue inhaled bronchodilators. Pulmonology following the patient. 3. Elevated troponins. Most probably a type 2 event from underlying sepsis and underlying acute kidney injury. Cardiology following. 4. Acute kidney injury. The patient had a normal creatinine of 1.00 on 2015. The patient's current acute kidney injury could be most probably secondary to dehydration from persistent vomiting. The patient's nephrotoxic drugs will be held at this time. Being followed by nephrology. 5. Type 2 diabetes mellitus. Uncontrolled. A1C is high (send out). The patient will be maintained on sliding scale insulin along with basal insulin. 6. Dyslipidemia. Continue statins. 7. Essential hypertension. Continue antihypertensives. 8. Hypocalcemia. Probably secondary to underlying hypoalbuminemia. 9. Microcytic, hypochromic anemia. Etiology unclear. Iron panel showing iron deficiency. Continue iron supplements. 10. Vitamin D deficiency. Continue supplements. 11. Fluids, electrolytes, and nutrition. Tube feedings. 12. DVT prophylaxis. Subcutaneous heparin. 13. Gastrointestinal prophylaxis. Histamine 2 receptor blockers. 14. Plan. Continue antibiotics. Continue ventilator support. Ventilator weaning as per Pulmonary. Adjust insulin to obtain optimal blood sugar control. Case discussed with Dr. Perez. Critical care time: 35 minutes. Problems: Subjective 24 Hr Interval Summary Free Text/Dictation Patient running fevers. Exam/Review of Systems Vital Signs Vitals Vital Signs Date Time Temp Pulse Resp B/P Pulse Ox O2 Delivery O2 Flow Rate FiO2 12/29/16 07:00 99.4 68 151/70 96 Mechanical Ventilator 12/29/16 05:30 14 70 Intake and Output 12/28/16 12/28/16 12/29/16 15:00 23:00 07:00 Intake Total 1308.82 ml 1424.630 ml 1028.355 ml Output Total 1070 ml 1325 ml 870 ml Balance 238.82 ml 99.630 ml 158.355 ml Exam GENERAL: This is a morbidly obese male lying in bed, orally intubated and mechanically ventilated. HEENT: Head normocephalic and atraumatic. Eyes: Anicteric sclerae. Conjunctivae clear. ENT: Nasal septum is midline. Oral mucosa is dry. NECK: Short with increased neck circumference. RESPIRATORY: Bilaterally diminished breath sounds. On mechanical ventilator. CARDIAC: Regular rate and rhythm. S1, S2 heard. ABDOMEN: Soft, nontender and nondistended. Bowel sounds positive in all 4 quadrants. GENITOURINARY: Deferred. EXTREMITIES: No cyanosis, no clubbing. B/L LE edema. Pedal pulses palpable. Status post left great toe amputation. NEUROLOGIC: The patient is sedated. Results Result Diagram: 12/29/16 0500 12/29/16 0500 Results 24 hrs Laboratory Tests Test 12/28/16 12:54 12/28/16 17:07 12/28/16 20:37 12/29/16 00:56 Bedside Glucose 202 218 241 H 280 H Test 12/29/16 05:00 12/29/16 05:45 12/29/16 08:50 White Blood Count 20.9 H Red Blood Count 3.80 L Hemoglobin 10.2 L Hematocrit 32.5 L Mean Corpuscular Volume 85.5 Mean Corpuscular Hemoglobin 26.8 L Mean Corpuscular Hemoglobin Concent 31.4 L Red Cell Distribution Width 13.2 Platelet Count 227 Mean Platelet Volume 11.3 H Neutrophils % 91.4 H Lymphocytes % 3.2 L Monocytes % 3.6 Eosinophils % 0.1 Basophils % 0.1 Nucleated Red Blood Cells % 0.0 Neutrophils # 19.1 H Lymphocytes # 0.7 L Monocytes # 0.8 Eosinophils # 0.0 Basophils # 0.0 Nucleated Red Blood Cells # 0.0 Sodium Level 141 Potassium Level 3.6 Chloride Level 107 Carbon Dioxide Level 30 Anion Gap 8 Blood Urea Nitrogen 69 H Creatinine 1.53 H Glucose Level 297 #H Calcium Level 7.5 L Phosphorus Level 4.6 Magnesium Level 2.2 Bedside Glucose 300 H 313 H Medications Medications Current Medications Ondansetron HCl (Zofran Inj) 4 mg Q6H PRN IV NAUSEA AND/OR VOMITING; Start 4/ 21/17 at 13:00 Acetaminophen (Tylenol Tab) 650 mg Q6H PRN PO PAIN LEVEL 1-3 OR FEVER Last administered on 12/29/16 06:02; Admin Dose 650 MG; Start 12/15/16 at 13:00 Acetaminophen/ Hydrocodone Bitart ([place] (5/325)) 1 tab Q6H PRN PO PAIN LEVEL 4 -6 Last administered on 12/15/16 22:08; Admin Dose 1 TAB; Start 12/15/16 at 13: 00 Morphine Sulfate (morphine) 2 mg Q4H PRN IV PAIN LEVEL 7-10 Last administered on 12/25/16 03:03; Admin Dose 2 MG; Start 12/15/16 at 13:00 Magnesium Hydroxide (Milk Of Mag) 30 ml DAILY PRN PO CONSTIPATION; Start at 13:00 Bisacodyl (Dulcolax) 5 mg DAILY PRN PO CONSTIPATION; Start 12/15/16 at 13:00 Famotidine (Pepcid) 20 mg Q12 PO Last administered on 12/29/16 08:51; Admin Dose 20 MG; Start 12/15/16 at 21:00 Hydralazine HCl (Apresoline) 10 mg Q6H PRN IV SBP>160 Last administered on 17:59; Admin Dose 10 MG; Start 12/15/16 at 13:00 Aspirin (Aspirin) 325 mg DAILY PO Last administered on 12/29/16 08:51; Admin Dose 325 MG; Start 12/16/16 at 09:00 Atorvastatin Calcium (Lipitor) 80 mg QHS PO Last administered on 12/28/16 20:38 ; Admin Dose 80 MG; Start 12/15/16 at 21:00 Heparin Sodium (Porcine) (Heparin (5000 Units/0.5 ml)) 5,000 unit BID SC Last administered on 12/29/16 08:53; Admin Dose 5,000 UNIT; Start 12/15/16 at 21:00 Miscellaneous Information 1 ea NOTE XX ; Start 12/15/16 at 14:00 Glucose (Glutose) 15 gm Q15M PRN PO DECREASED GLUCOSE; Start 12/15/16 at 14:00 Glucose (Glutose) 22.5 gm Q15M PRN PO DECREASED GLUCOSE; Start 12/15/16 at 14: 00 Glucagon (Glucagen) 1 mg Q15M PRN IM DECREASED GLUCOSE; Start 12/15/16 at 14:00 Glucose (Glutose) 15 gm Q15M PRN BUCCAL DECREASED GLUCOSE; Start 12/15/16 at 14 :00 Cholecalciferol 1000 unit 1,000 unit DAILY PO Last administered on 12/29/16 08: 51; Admin Dose 1,000 UNIT; Start 12/16/16 at 09:00 Fentanyl (Sublimaze) 100 ml @ 2.5 mls/hr TITRATE IV Last administered on 05:40; Admin Dose 10 MLS/HR; Start 12/18/16 at 03:30 Dextrose (D50w Syringe) 25 ml Q15M PRN IV Till BS 80 mg/dL or above x2; Start 12/18/16 at 14:00 Dextrose (D50w Syringe) 50 ml Q15M PRN IV Till BS 80 mg/dL or above x2; Start 12/18/16 at 14:00 IV Flush 10 ml 10 ml PRN PRN IV IV PROTOCOL; Start 12/18/16 at 17:00 Norepinephrine/ Dextrose (Levophed/D5W) 250 ml @ 0.46 mls/hr TITRATE IV ; Start 12/19/16 at 09:30 Amlodipine Besylate 5 mg 5 mg DAILY PO Last administered on 12/29/16 08:51; Admin Dose 5 MG; Start 12/21/16 at 09:00 Midazolam HCl 50 ml @ 1 mls/hr TITRATE IV Last administered on 12/29/16 04:14; Admin Dose 10 MLS/HR; Start 12/20/16 at 14:00 Propofol (Diprivan) 100 ml @ 3.255 mls/ hr Q12H IV Last administered on 05:41; Admin Dose 13.02 MLS/HR; Start 12/20/16 at 20:30 Hydralazine HCl (Apresoline) 10 mg Q4H PRN IV sbp > 160 Last administered on 22:35; Admin Dose 10 MG; Start 12/22/16 at 06:30 Insulin Glargine (Lantus) 40 unit DAILY@20 SC Last administered on 12/28/16 20: 48; Admin Dose 40 UNIT; Start 12/23/16 at 20:00 Lorazepam (Ativan) 1 mg Q1H PRN IV agitation Last administered on 12/29/16 02: 11; Admin Dose 1 MG; Start 12/25/16 at 03:30 Carvedilol (Coreg) 6.25 mg BID PO Last administered on 12/29/16 08:51; Admin Dose 6.25 MG; Start 12/25/16 at 21:00 Methylprednisolone Sodium Succinate (Solu-Medrol) 60 mg Q8 IV Last administered on 12/29/16 05:42; Admin Dose 60 MG; Start 12/26/16 at 10:00 Insulin Aspart (Novolog Insulin Pen) NOVOLOG *MILD* ALGORI... Q4 SC Last administered on 12/29/16 08:53; Admin Dose 5 UNIT; Start 12/27/16 at 12:00 Hydralazine HCl 75 mg 75 mg Q8 PO Last administered on 12/29/16 05:43; Admin Dose 75 MG; Start 12/27/16 at 22:00 Meropenem 100 ml @ 200 mls/hr Q12 IVPB Last administered on 12/29/16 08:50; Admin Dose 200 MLS/HR; Start 12/28/16 at 13:00 Caspofungin 50 mg/ Sodium Chloride 250 ml @ 250 mls/hr Q24H IVPB ; Start at 12:00 Vancomycin HCl/ Sodium Chloride (Vancocin/NS) 500 ml @ 125 mls/hr Q24H IVPB ; Start 12/29/16 at 15:00 GEORGI CORBETT NP December 29, 2016 09:12
--- NOTE | 2016-12-29 10:49 | CONS ---
Date/Time of Note Date/Time of Note DATE: 12/29/16 TIME: 10:47 Consult Date/Type/Reason Admit Date/Time Dec 15, 2016 at 11:20 Type of Consultation: pulmonary ICU Ordering Provider: LEXII REED Subjective Still requiring significant oxygen 70% with a PEEP of 8 Follow simple commands off sedation Objective Vital Signs Date Time Temp Pulse Resp B/P Pulse Ox O2 Delivery O2 Flow Rate FiO2 12/29/16 08:00 70 12/29/16 07:00 99.4 151/70 96 Mechanical Ventilator 12/29/16 05:30 14 70 Intake and Output 12/28/16 12/28/16 12/29/16 15:00 23:00 07:00 Intake Total 1308.82 ml 1424.630 ml 1028.355 ml Output Total 1070 ml 1325 ml 870 ml Balance 238.82 ml 99.630 ml 158.355 ml Exam PHYSICAL EXAMINATION GENERAL: Young gentleman intubated sedated on mechanical ventilation VITAL SIGNS: see below. HEENT: Pupils equal, round, and reactive to light. CARDIAC: S1, S2, no added sounds or murmurs CHEST: Diminished air entry bilaterally. ABDOMEN: Mildly distended. Bowel sounds present. EXTREMITIES: No cyanosis, clubbing edema +1 NEUROLOGIC: Unable to assess Results/Medications Result Diagram: 12/29/16 0500 12/29/16 0500 Results 24 hrs Chest x-ray Bibasilar atelectasis Laboratory Tests Test 12/28/16 12:54 12/28/16 17:07 12/28/16 20:37 12/29/16 00:56 Bedside Glucose 202 218 241 H 280 H Test 12/29/16 05:00 12/29/16 05:45 12/29/16 08:50 White Blood Count 20.9 H Red Blood Count 3.80 L Hemoglobin 10.2 L Hematocrit 32.5 L Mean Corpuscular Volume 85.5 Mean Corpuscular Hemoglobin 26.8 L Mean Corpuscular Hemoglobin Concent 31.4 L Red Cell Distribution Width 13.2 Platelet Count 227 Mean Platelet Volume 11.3 H Neutrophils % 91.4 H Lymphocytes % 3.2 L Monocytes % 3.6 Eosinophils % 0.1 Basophils % 0.1 Nucleated Red Blood Cells % 0.0 Neutrophils # 19.1 H Lymphocytes # 0.7 L Monocytes # 0.8 Eosinophils # 0.0 Basophils # 0.0 Nucleated Red Blood Cells # 0.0 Sodium Level 141 Potassium Level 3.6 Chloride Level 107 Carbon Dioxide Level 30 Anion Gap 8 Blood Urea Nitrogen 69 H Creatinine 1.53 H Glucose Level 297 #H Calcium Level 7.5 L Phosphorus Level 4.6 Magnesium Level 2.2 Bedside Glucose 300 H 313 H Medications Current Medications Ondansetron HCl (Zofran Inj) 4 mg Q6H PRN IV NAUSEA AND/OR VOMITING; Start at 13:00 Acetaminophen (Tylenol Tab) 650 mg Q6H PRN PO PAIN LEVEL 1-3 OR FEVER Last administered on 12/29/16 06:02; Admin Dose 650 MG; Start 12/15/16 at 13:00 Acetaminophen/ Hydrocodone Bitart ([place] (5/325)) 1 tab Q6H PRN PO PAIN LEVEL 4 -6 Last administered on 12/15/16 22:08; Admin Dose 1 TAB; Start 12/15/16 at 13: 00 Morphine Sulfate (morphine) 2 mg Q4H PRN IV PAIN LEVEL 7-10 Last administered on 12/25/16 03:03; Admin Dose 2 MG; Start 12/15/16 at 13:00 Magnesium Hydroxide (Milk Of Mag) 30 ml DAILY PRN PO CONSTIPATION; Start at 13:00 Bisacodyl (Dulcolax) 5 mg DAILY PRN PO CONSTIPATION; Start 12/15/16 at 13:00 Famotidine (Pepcid) 20 mg Q12 PO Last administered on 12/29/16 08:51; Admin Dose 20 MG; Start 12/15/16 at 21:00 Hydralazine HCl (Apresoline) 10 mg Q6H PRN IV SBP>160 Last administered on 17:59; Admin Dose 10 MG; Start 12/15/16 at 13:00 Aspirin (Aspirin) 325 mg DAILY PO Last administered on 12/29/16 08:51; Admin Dose 325 MG; Start 12/16/16 at 09:00 Atorvastatin Calcium (Lipitor) 80 mg QHS PO Last administered on 12/28/16 20:38 ; Admin Dose 80 MG; Start 12/15/16 at 21:00 Heparin Sodium (Porcine) (Heparin (5000 Units/0.5 ml)) 5,000 unit BID SC Last administered on 12/29/16 08:53; Admin Dose 5,000 UNIT; Start 12/15/16 at 21:00 Miscellaneous Information 1 ea NOTE XX ; Start 12/15/16 at 14:00 Glucose (Glutose) 15 gm Q15M PRN PO DECREASED GLUCOSE; Start 12/15/16 at 14:00 Glucose (Glutose) 22.5 gm Q15M PRN PO DECREASED GLUCOSE; Start 12/15/16 at 14: 00 Glucagon (Glucagen) 1 mg Q15M PRN IM DECREASED GLUCOSE; Start 12/15/16 at 14:00 Glucose (Glutose) 15 gm Q15M PRN BUCCAL DECREASED GLUCOSE; Start 12/15/16 at 14 :00 Cholecalciferol 1000 unit 1,000 unit DAILY PO Last administered on 12/29/16 08: 51; Admin Dose 1,000 UNIT; Start 12/16/16 at 09:00 Fentanyl (Sublimaze) 100 ml @ 2.5 mls/hr TITRATE IV Last administered on 05:40; Admin Dose 10 MLS/HR; Start 12/18/16 at 03:30 Dextrose (D50w Syringe) 25 ml Q15M PRN IV Till BS 80 mg/dL or above x2; Start 12/18/16 at 14:00 Dextrose (D50w Syringe) 50 ml Q15M PRN IV Till BS 80 mg/dL or above x2; Start 12/18/16 at 14:00 IV Flush 10 ml 10 ml PRN PRN IV IV PROTOCOL; Start 12/18/16 at 17:00 Norepinephrine/ Dextrose (Levophed/D5W) 250 ml @ 0.46 mls/hr TITRATE IV ; Start 12/19/16 at 09:30 Amlodipine Besylate 5 mg 5 mg DAILY PO Last administered on 12/29/16 08:51; Admin Dose 5 MG; Start 12/21/16 at 09:00 Midazolam HCl 50 ml @ 1 mls/hr TITRATE IV Last administered on 12/29/16 09:19; Admin Dose 10 MLS/HR; Start 12/20/16 at 14:00 Propofol (Diprivan) 100 ml @ 3.255 mls/ hr Q12H IV Last administered on 05:41; Admin Dose 13.02 MLS/HR; Start 12/20/16 at 20:30 Hydralazine HCl (Apresoline) 10 mg Q4H PRN IV sbp > 160 Last administered on 22:35; Admin Dose 10 MG; Start 12/22/16 at 06:30 Lorazepam (Ativan) 1 mg Q1H PRN IV agitation Last administered on 12/29/16 02: 11; Admin Dose 1 MG; Start 12/25/16 at 03:30 Carvedilol (Coreg) 6.25 mg BID PO Last administered on 12/29/16 08:51; Admin Dose 6.25 MG; Start 12/25/16 at 21:00 Methylprednisolone Sodium Succinate (Solu-Medrol) 60 mg Q8 IV Last administered on 12/29/16 05:42; Admin Dose 60 MG; Start 12/26/16 at 10:00 Hydralazine HCl 75 mg 75 mg Q8 PO Last administered on 12/29/16 05:43; Admin Dose 75 MG; Start 12/27/16 at 22:00 Meropenem 100 ml @ 200 mls/hr Q12 IVPB Last administered on 12/29/16 08:50; Admin Dose 200 MLS/HR; Start 12/28/16 at 13:00 Caspofungin 50 mg/ Sodium Chloride 250 ml @ 250 mls/hr Q24H IVPB ; Start at 12:00 Vancomycin HCl/ Sodium Chloride (Vancocin/NS) 500 ml @ 125 mls/hr Q24H IVPB ; Start 12/29/16 at 15:00 Insulin Aspart (Novolog Insulin Pen) NOVOLOG *MODERATE* ALGORITHM Q4 SC ; Start 12/29/16 at 09:30 Insulin Glargine (Lantus) 44 unit DAILY@20 SC ; Start 12/29/16 at 20:00 Assessment/Plan Chief Complaint/Hosp Course Assessment 1. Acute hypoxemic respiratory failure possible healthcare associated pneumonia with underlying pulmonary edema 2. Workup for vasculitis will decrease steroids. Appreciate rheumatology recommendations. 3. Diabetes mellitus 4. Renal insufficiency possible ATN injury Plan 1. Continue mechanical ventilation increase PEEP to 10 2. Decrease FiO2 as tolerated 3. Continue low-dose steroids 4. Continue broad-spectrum antibiotics 5. Diuretics as tolerated Disposition Continue ICU care Problems: VERO SOTO MD, [facility] December 29, 2016 10:49
--- NOTE | 2016-12-29 11:52 | CONS ---
Date/Time of Note Date/Time of Note DATE: 12/29/16 TIME: 11:50 Assessment/Plan Assessment/Plan Chief Complaint/Hosp Course IMPRESSION: 1. Positive troponin, assess significance.-no sig uptrend/likely demand event in settng fevers/tachy/resp distress 2. Abnormal electrocardiogram with ST depressions with tachycardia and positive troponin, likely indicative of coronary artery disease.-improved ecg findings with improved HR 3. Hypertension, uncontrolled mildly still 4. Dyslipidemia. 5. Diabetes mellitus. 6. Fevers to 104 documented here in the hospital.-ongoing low grade 7. Renal failure.-acute on chronic/ ? secondary to vasculitic syndrome 8. Lower extremity edema, assess for congestive heart failure/CHF-diastolic acute on chronic 9. Nausea and vomiting. 10. Chest pain with cough. 11.Resp failure s/p intubation 12. Bradycardia-to 40's.Now improved and tolerating BB Recc: -Tele -serial ecg's -Continue asa/statin -Continue abx's and f/u cx data -Continue bronchodilators and steroids. -Follow volume status closely and continue lasix diuresis -wean vent as tolerated -Continue hydralazine/norvasc -Continue coreg and follow HR closely -Ongoing eval for vasculitic syndrome per rheum Problems: Consultation Date/Type/Reason Admit Date/Time Dec 15, 2016 at 11:20 Initial Consult Date 12/15/2016 Type of Consultation: Cardiology Reason for Consultation poisitive troponin Referring Provider: LEXII REED Exam/Review of Systems Vital Signs Vitals Vital Signs Date Time Temp Pulse Resp B/P Pulse Ox O2 Delivery O2 Flow Rate FiO2 12/29/16 11:00 69 24 141/65 95 Mechanical Ventilator 12/29/16 08:00 101.3 12/29/16 05:30 70 Intake and Output 12/28/16 12/28/16 12/29/16 15:00 23:00 07:00 Intake Total 1308.82 ml 1424.630 ml 1028.355 ml Output Total 1070 ml 1325 ml 870 ml Balance 238.82 ml 99.630 ml 158.355 ml Exam Review of Systems: CONSTITUTIONAL: No fevers, chills. PULMONARY: No sob CARDIOVASCULAR: No chest pain/palpitations GASTROINTESTINAL: No nausea/vomiting. GENITOURINARY: No hematuria/dysuria. MUSCULOSKELETAL: No myagias/arthalgias. PSYCHIATRIC: The patient denies depression. NEUROLOGIC: No weakness Constitutional: alert Psych: no complaints Head: normocephalic ENMT: mucosa pink and moist Neck: jvd, supple Respiratory: diminished breath sounds Cardiovascular: regular rate and rhythm Gastrointestinal: non-tender, soft Musculoskeletal: muscle tone (n ormal) Extremities: edema (none) Neurological: other (No focal deficits) Results Result Diagram: 12/29/16 0500 12/29/16 0500 Results 24 hrs Laboratory Tests Test 12/28/16 12:54 12/28/16 17:07 12/28/16 20:37 12/29/16 00:56 Bedside Glucose 202 218 241 H 280 H Test 12/29/16 05:00 12/29/16 05:45 12/29/16 08:50 White Blood Count 20.9 H Red Blood Count 3.80 L Hemoglobin 10.2 L Hematocrit 32.5 L Mean Corpuscular Volume 85.5 Mean Corpuscular Hemoglobin 26.8 L Mean Corpuscular Hemoglobin Concent 31.4 L Red Cell Distribution Width 13.2 Platelet Count 227 Mean Platelet Volume 11.3 H Neutrophils % 91.4 H Lymphocytes % 3.2 L Monocytes % 3.6 Eosinophils % 0.1 Basophils % 0.1 Nucleated Red Blood Cells % 0.0 Neutrophils # 19.1 H Lymphocytes # 0.7 L Monocytes # 0.8 Eosinophils # 0.0 Basophils # 0.0 Nucleated Red Blood Cells # 0.0 Sodium Level 141 Potassium Level 3.6 Chloride Level 107 Carbon Dioxide Level 30 Anion Gap 8 Blood Urea Nitrogen 69 H Creatinine 1.53 H Glucose Level 297 #H Calcium Level 7.5 L Phosphorus Level 4.6 Magnesium Level 2.2 Bedside Glucose 300 H 313 H Medications Medications Current Medications Ondansetron HCl (Zofran Inj) 4 mg Q6H PRN IV NAUSEA AND/OR VOMITING; Start at 13:00 Acetaminophen (Tylenol Tab) 650 mg Q6H PRN PO PAIN LEVEL 1-3 OR FEVER Last administered on 12/29/16 06:02; Admin Dose 650 MG; Start 12/15/16 at 13:00 Acetaminophen/ Hydrocodone Bitart ([place] (5/325)) 1 tab Q6H PRN PO PAIN LEVEL 4 -6 Last administered on 12/15/16 22:08; Admin Dose 1 TAB; Start 12/15/16 at 13: 00 Morphine Sulfate (morphine) 2 mg Q4H PRN IV PAIN LEVEL 7-10 Last administered on 12/25/16 03:03; Admin Dose 2 MG; Start 12/15/16 at 13:00 Magnesium Hydroxide (Milk Of Mag) 30 ml DAILY PRN PO CONSTIPATION; Start at 13:00 Bisacodyl (Dulcolax) 5 mg DAILY PRN PO CONSTIPATION; Start 12/15/16 at 13:00 Famotidine (Pepcid) 20 mg Q12 PO Last administered on 12/29/16 08:51; Admin Dose 20 MG; Start 12/15/16 at 21:00 Hydralazine HCl (Apresoline) 10 mg Q6H PRN IV SBP>160 Last administered on 17:59; Admin Dose 10 MG; Start 12/15/16 at 13:00 Aspirin (Aspirin) 325 mg DAILY PO Last administered on 12/29/16 08:51; Admin Dose 325 MG; Start 12/16/16 at 09:00 Atorvastatin Calcium (Lipitor) 80 mg QHS PO Last administered on 12/28/16 20:38 ; Admin Dose 80 MG; Start 12/15/16 at 21:00 Heparin Sodium (Porcine) (Heparin (5000 Units/0.5 ml)) 5,000 unit BID SC Last administered on 12/29/16 08:53; Admin Dose 5,000 UNIT; Start 12/15/16 at 21:00 Miscellaneous Information 1 ea NOTE XX ; Start 12/15/16 at 14:00 Glucose (Glutose) 15 gm Q15M PRN PO DECREASED GLUCOSE; Start 12/15/16 at 14:00 Glucose (Glutose) 22.5 gm Q15M PRN PO DECREASED GLUCOSE; Start 12/15/16 at 14: 00 Glucagon (Glucagen) 1 mg Q15M PRN IM DECREASED GLUCOSE; Start 12/15/16 at 14:00 Glucose (Glutose) 15 gm Q15M PRN BUCCAL DECREASED GLUCOSE; Start 12/15/16 at 14 :00 Cholecalciferol 1000 unit 1,000 unit DAILY PO Last administered on 12/29/16 08: 51; Admin Dose 1,000 UNIT; Start 12/16/16 at 09:00 Fentanyl (Sublimaze) 100 ml @ 2.5 mls/hr TITRATE IV Last administered on 05:40; Admin Dose 10 MLS/HR; Start 12/18/16 at 03:30 Dextrose (D50w Syringe) 25 ml Q15M PRN IV Till BS 80 mg/dL or above x2; Start 12/18/16 at 14:00 Dextrose (D50w Syringe) 50 ml Q15M PRN IV Till BS 80 mg/dL or above x2; Start 12/18/16 at 14:00 IV Flush 10 ml 10 ml PRN PRN IV IV PROTOCOL; Start 12/18/16 at 17:00 Norepinephrine/ Dextrose (Levophed/D5W) 250 ml @ 0.46 mls/hr TITRATE IV ; Start 12/19/16 at 09:30 Amlodipine Besylate 5 mg 5 mg DAILY PO Last administered on 12/29/16 08:51; Admin Dose 5 MG; Start 12/21/16 at 09:00 Midazolam HCl 50 ml @ 1 mls/hr TITRATE IV Last administered on 12/29/16 09:19; Admin Dose 10 MLS/HR; Start 12/20/16 at 14:00 Propofol (Diprivan) 100 ml @ 3.255 mls/ hr Q12H IV Last administered on 05:41; Admin Dose 13.02 MLS/HR; Start 12/20/16 at 20:30 Hydralazine HCl (Apresoline) 10 mg Q4H PRN IV sbp > 160 Last administered on 22:35; Admin Dose 10 MG; Start 12/22/16 at 06:30 Lorazepam (Ativan) 1 mg Q1H PRN IV agitation Last administered on 12/29/16 02: 11; Admin Dose 1 MG; Start 12/25/16 at 03:30 Carvedilol (Coreg) 6.25 mg BID PO Last administered on 12/29/16 08:51; Admin Dose 6.25 MG; Start 12/25/16 at 21:00 Methylprednisolone Sodium Succinate (Solu-Medrol) 60 mg Q8 IV Last administered on 12/29/16 05:42; Admin Dose 60 MG; Start 12/26/16 at 10:00 Hydralazine HCl 75 mg 75 mg Q8 PO Last administered on 12/29/16 05:43; Admin Dose 75 MG; Start 12/27/16 at 22:00 Meropenem 100 ml @ 200 mls/hr Q12 IVPB Last administered on 12/29/16 08:50; Admin Dose 200 MLS/HR; Start 12/28/16 at 13:00 Caspofungin 50 mg/ Sodium Chloride 250 ml @ 250 mls/hr Q24H IVPB ; Start at 12:00 Vancomycin HCl/ Sodium Chloride (Vancocin/NS) 500 ml @ 125 mls/hr Q24H IVPB ; Start 12/29/16 at 15:00 Insulin Aspart (Novolog Insulin Pen) NOVOLOG *MODERATE* ALGORITHM Q4 SC ; Start 12/29/16 at 09:30 Insulin Glargine (Lantus) 44 unit DAILY@20 SC ; Start 12/29/16 at 20:00 VI ADAMES December 29, 2016 11:52
[2016-12-29] MEDS: CASPOFUNGIN 50 MG in SOD CHLORIDE 0.9% 250 ML IVPB SCH (12:26)
--- NOTE | 2016-12-29 12:34 | CONS ---
Date/Time of Note Date/Time of Note DATE: 12/29/16 TIME: 12:24 Consult Date/Type/Reason Admit Date/Time Dec 15, 2016 at 11:20 Initial Consult Date Type of Consultation: Cardiology Ordering Provider: LEXII REED Subjective Now follows simple commands off sedation. BP has been stable. Objective Vital Signs Date Time Temp Pulse Resp B/P Pulse Ox O2 Delivery O2 Flow Rate FiO2 12/29/16 11:00 69 24 141/65 95 Mechanical Ventilator 12/29/16 08:00 101.3 12/29/16 05:30 70 Intake and Output 12/28/16 12/28/16 12/29/16 15:00 23:00 07:00 Intake Total 1308.82 ml 1424.630 ml 1028.355 ml Output Total 1070 ml 1325 ml 870 ml Balance 238.82 ml 99.630 ml 158.355 ml Exam Sedated and Intubated Resp: Diffuse crackles throughout CV: RRR Abd: S & NT Skin: No lesions Ext: No c/c/e Results/Medications Result Diagram: 12/29/16 0500 12/29/16 0500 Results 24 hrs Laboratory Tests Test 12/28/16 12:54 12/28/16 17:07 12/28/16 20:37 12/29/16 00:56 Bedside Glucose 202 218 241 H 280 H Test 12/29/16 05:00 12/29/16 05:45 12/29/16 08:50 White Blood Count 20.9 H Red Blood Count 3.80 L Hemoglobin 10.2 L Hematocrit 32.5 L Mean Corpuscular Volume 85.5 Mean Corpuscular Hemoglobin 26.8 L Mean Corpuscular Hemoglobin Concent 31.4 L Red Cell Distribution Width 13.2 Platelet Count 227 Mean Platelet Volume 11.3 H Neutrophils % 91.4 H Lymphocytes % 3.2 L Monocytes % 3.6 Eosinophils % 0.1 Basophils % 0.1 Nucleated Red Blood Cells % 0.0 Neutrophils # 19.1 H Lymphocytes # 0.7 L Monocytes # 0.8 Eosinophils # 0.0 Basophils # 0.0 Nucleated Red Blood Cells # 0.0 Sodium Level 141 Potassium Level 3.6 Chloride Level 107 Carbon Dioxide Level 30 Anion Gap 8 Blood Urea Nitrogen 69 H Creatinine 1.53 H Glucose Level 297 #H Calcium Level 7.5 L Phosphorus Level 4.6 Magnesium Level 2.2 Bedside Glucose 300 H 313 H Medications Current Medications Ondansetron HCl (Zofran Inj) 4 mg Q6H PRN IV NAUSEA AND/OR VOMITING; Start at 13:00 Acetaminophen (Tylenol Tab) 650 mg Q6H PRN PO PAIN LEVEL 1-3 OR FEVER Last administered on 12/29/16 06:02; Admin Dose 650 MG; Start 12/15/16 at 13:00 Acetaminophen/ Hydrocodone Bitart ([place] (5/325)) 1 tab Q6H PRN PO PAIN LEVEL 4 -6 Last administered on 12/15/16 22:08; Admin Dose 1 TAB; Start 12/15/16 at 13: 00 Morphine Sulfate (morphine) 2 mg Q4H PRN IV PAIN LEVEL 7-10 Last administered on 12/25/16 03:03; Admin Dose 2 MG; Start 12/15/16 at 13:00 Magnesium Hydroxide (Milk Of Mag) 30 ml DAILY PRN PO CONSTIPATION; Start at 13:00 Bisacodyl (Dulcolax) 5 mg DAILY PRN PO CONSTIPATION; Start 12/15/16 at 13:00 Famotidine (Pepcid) 20 mg Q12 PO Last administered on 12/29/16 08:51; Admin Dose 20 MG; Start 12/15/16 at 21:00 Hydralazine HCl (Apresoline) 10 mg Q6H PRN IV SBP>160 Last administered on 17:59; Admin Dose 10 MG; Start 12/15/16 at 13:00 Aspirin (Aspirin) 325 mg DAILY PO Last administered on 12/29/16 08:51; Admin Dose 325 MG; Start 12/16/16 at 09:00 Atorvastatin Calcium (Lipitor) 80 mg QHS PO Last administered on 12/28/16 20:38 ; Admin Dose 80 MG; Start 12/15/16 at 21:00 Heparin Sodium (Porcine) (Heparin (5000 Units/0.5 ml)) 5,000 unit BID SC Last administered on 12/29/16 08:53; Admin Dose 5,000 UNIT; Start 12/15/16 at 21:00 Miscellaneous Information 1 ea NOTE XX ; Start 12/15/16 at 14:00 Glucose (Glutose) 15 gm Q15M PRN PO DECREASED GLUCOSE; Start 12/15/16 at 14:00 Glucose (Glutose) 22.5 gm Q15M PRN PO DECREASED GLUCOSE; Start 12/15/16 at 14: 00 Glucagon (Glucagen) 1 mg Q15M PRN IM DECREASED GLUCOSE; Start 12/15/16 at 14:00 Glucose (Glutose) 15 gm Q15M PRN BUCCAL DECREASED GLUCOSE; Start 12/15/16 at 14 :00 Cholecalciferol 1000 unit 1,000 unit DAILY PO Last administered on 12/29/16 08: 51; Admin Dose 1,000 UNIT; Start 12/16/16 at 09:00 Fentanyl (Sublimaze) 100 ml @ 2.5 mls/hr TITRATE IV Last administered on 05:40; Admin Dose 10 MLS/HR; Start 12/18/16 at 03:30 Dextrose (D50w Syringe) 25 ml Q15M PRN IV Till BS 80 mg/dL or above x2; Start 12/18/16 at 14:00 Dextrose (D50w Syringe) 50 ml Q15M PRN IV Till BS 80 mg/dL or above x2; Start 12/18/16 at 14:00 IV Flush 10 ml 10 ml PRN PRN IV IV PROTOCOL; Start 12/18/16 at 17:00 Norepinephrine/ Dextrose (Levophed/D5W) 250 ml @ 0.46 mls/hr TITRATE IV ; Start 12/19/16 at 09:30 Amlodipine Besylate 5 mg 5 mg DAILY PO Last administered on 12/29/16 08:51; Admin Dose 5 MG; Start 12/21/16 at 09:00 Midazolam HCl 50 ml @ 1 mls/hr TITRATE IV Last administered on 12/29/16 09:19; Admin Dose 10 MLS/HR; Start 12/20/16 at 14:00 Propofol (Diprivan) 100 ml @ 3.255 mls/ hr Q12H IV Last administered on 05:41; Admin Dose 13.02 MLS/HR; Start 12/20/16 at 20:30 Hydralazine HCl (Apresoline) 10 mg Q4H PRN IV sbp > 160 Last administered on 22:35; Admin Dose 10 MG; Start 12/22/16 at 06:30 Lorazepam (Ativan) 1 mg Q1H PRN IV agitation Last administered on 12/29/16 02: 11; Admin Dose 1 MG; Start 12/25/16 at 03:30 Carvedilol (Coreg) 6.25 mg BID PO Last administered on 12/29/16 08:51; Admin Dose 6.25 MG; Start 12/25/16 at 21:00 Methylprednisolone Sodium Succinate (Solu-Medrol) 60 mg Q8 IV Last administered on 12/29/16 05:42; Admin Dose 60 MG; Start 12/26/16 at 10:00 Hydralazine HCl 75 mg 75 mg Q8 PO Last administered on 12/29/16 05:43; Admin Dose 75 MG; Start 12/27/16 at 22:00 Meropenem 100 ml @ 200 mls/hr Q12 IVPB Last administered on 12/29/16 08:50; Admin Dose 200 MLS/HR; Start 12/28/16 at 13:00 Caspofungin 50 mg/ Sodium Chloride 250 ml @ 250 mls/hr Q24H IVPB ; Start at 12:00 Vancomycin HCl/ Sodium Chloride (Vancocin/NS) 500 ml @ 125 mls/hr Q24H IVPB ; Start 12/29/16 at 15:00 Insulin Aspart (Novolog Insulin Pen) NOVOLOG *MODERATE* ALGORITHM Q4 SC ; Start 12/29/16 at 09:30 Insulin Glargine (Lantus) 44 unit DAILY@20 SC ; Start 12/29/16 at 20:00 Assessment/Plan Chief Complaint/Hosp Course 1. Positive DAISY of unclear significance so far. Most of vasculitic work-up is negative. DS DNA still pending. No definite evidence of vasculitis, Continues on steroids empirically . 2. Respiratory failure due to CAP pna and septic shock. 3. Renal insufficiency Much improved. 4. Diabetes mellitus. Glucose increased on steroids. 5. Hypertension. Rec. Steroid dose per pulmonary Problems: ENDY ARANGO MD December 29, 2016 12:34
--- NOTE | 2016-12-29 13:02 | PN ---
DATE: 12/29/2016 SUBJECTIVE: No events overnight. The patient remains intubated on high PEEP of 10, high oxygen, sp iking fevers with a T-max this morning 101.3. T-current 99.2, pulse 69, respirations 24, blood pres sure 142/69, saturation 95%. LABORATORY: WBC 20.9, H and H 10.2 and 32.5, platelets 227, neutrophils 91.4, BUN 69, creatinine 1 .53. MICROBIOLOGY: Blood culture on 12/27/2016 remain negative. Urine culture grew Estrellita albicans. S putum culture growing coagulase-negative staph and Estrellita albicans and Estrellita glabrata. INDWELLINGS: Endotracheal tube, NG tube, Ritchie catheter, PICC line. ANTIMICROBIALS: 1. Vancomycin. 2. Cancidas. 3. Meropenem. PHYSICAL EXAMINATION: GENERAL: This is an obese, well-developed, middle-aged man who is in no distress. HEENT: Head atraumatic, normocephalic. Sclerae anicteric. Buccal mucosa dry. NECK: Supple, trachea midline. CHEST: Rise symmetrical. Breath sounds diminished at the bases. HEART: S1, S2. ABDOMEN: Soft. Bowel tones present. EXTREMITIES: Without cyanosis. Bilateral trace edema. ASSESSMENT: 1. Acute hypoxemic respiratory failure. 2. Multilobular pneumonia. 3. ARDS. 4. Acute renal failure. 5. Persistent leukocytosis, patient is on Solu-Medrol every 8 hours IV. 6. Positive DAISY, significance unclear, no evidence of vasculitis per rheumatology note. 7. Diabetes. 8. Urinary tract infection. PLAN: The patient remains hemodynamically stable. He is being followed by multiple consultants. C ramon current antibiotics. Dictated By: YOLETTE RODRIGUEZ [employer] SUPERVISOR for DANUTA AYOUB MD NI/NTS Conf#: [id number] DID#: [id number]
[2016-12-29] MEDS: VANCOMYCIN 1.75 GM in NS 500 ML IVPB SCH (15:48)
[2016-12-29] MEDS ORDERED: INSULIN GLARGINE [LANtus] 3 ML PEN SC SCH (20:00)
[2016-12-29] MEDS: ATORVASTATIN 80 MG TAB PO SCH (20:10)
[2016-12-30] VITALS (54 sets, daily range): BP systolic 113–162; BP diastolic 65–106; PULSE 57–75; RESP 17–25
[2016-12-30] MEDS: INSULIN ASPART [NOVOLOG] 3 ML PEN SC SCH ×7 (01:12→21:09)
[2016-12-30] MEDS: LEVALBUTEROL (HFA) 15 GM INHALER INH SCH ×4 (01:33→19:37)
[2016-12-30] MEDS: PROPOFOL 100 ML IV SCH ×4 (04:57→19:59)
[2016-12-30 05:05] LABS: ADD SCAN DIFF NO
[2016-12-30 05:11] LABS: BASOPHILS % 0.1 % (0.0-2.0); EOSINOPHILS # 0.1 10^3/ul (0.0-0.5); EOSINOPHILS % 0.4 % (0.0-7.0); HEMATOCRIT 30.2 % (42.0-52.0); HEMOGLOBIN 9.7 g/dl (14.0-18.0); LYMPHOCYTES # 0.6 10^3/ul (0.8-2.9); LYMPHOCYTES % 4.5 % (15.0-51.0); MEAN CORPUSCULAR HEMOGLOBIN 27.2 pg (29.0-33.0); MEAN CORPUSCULAR HGB CONC 32.1 g/dl (32.0-37.0); MEAN CORPUSCULAR VOLUME 84.8 fl (82.0-101.0); MEAN PLATELET VOLUME 11.7 fl (7.4-10.4); MONOCYTE # 0.6 10^3/ul (0.3-0.9); MONOCYTES % 4.3 % (0.0-11.0); NEUTROPHIL # 12.7 10^3/ul (1.6-7.5); PLATELET COUNT 195 10^3/UL (140-415); RED BLOOD COUNT 3.56 10^6/ul (4.70-6.10); RED CELL DISTRIBUTION WIDTH 13.1 % (11.5-14.5); WHITE BLOOD COUNT 14.1 10^3/ul (4.8-10.8)
[2016-12-30 05:30] LABS: CALCIUM 7.4 mg/dl (8.4-10.2); CREATININE 1.28 mg/dl (0.61-1.24); MAGNESIUM 2.2 mg/dl (1.7-2.5); PHOSPHORUS 3.9 mg/dl (2.5-4.9); POTASSIUM 3.3 mmol/L (3.5-5.1)
[2016-12-30] MEDS: FUROSEMIDE 40 MG INJ IV SCH ×2 (05:50→17:27)
[2016-12-30] MEDS: METHYLPREDNISOLONE 125 MG INJ IV SCH ×3 (05:50→22:08)
[2016-12-30] MEDS: MIDAZOLAM (DRIP) 50 mg/50 mL 50 ML IV SCH ×4 (05:52→22:19)
[2016-12-30] MEDS ORDERED: POTASSIUM CHLORIDE 20 MEQ POWDER FOR ORAL SOLN NGT ONE (07:30)
--- NOTE | 2016-12-30 07:57 | PN ---
DATE: 12/30/2016 SUBJECTIVE: The patient is critically ill, on ventilatory support. The patient is responding well to diuretic therapy. No significant changes noted. OBJECTIVE: VITAL SIGNS: Blood pressure 150/78, respirations 24, pulse 58, temperature 98.2. I's AND O'S: The patient had 3.7 L in, 3.2 L out. HEENT: Head is normocephalic. NECK: Supple. HEART: Regular rate. LUNGS: Showed diminished breath sounds at the base. Positive rhonchi. ABDOMEN: Soft, nontender to palpation. No rebound or guarding. EXTREMITIES: Negative for clubbing or cyanosis. Positive edema in upper and lower extremities. DERMATOLOGIC: No rashes. MUSCULOSKELETAL: Have no joint effusion. NEUROLOGIC: No change in exam. MEDICATIONS: The patient's medications were reviewed. LABORATORY DATA: White count 14.1, hemoglobin 9.7, hematocrit 30.2, platelet count is 195. Sodium 138, potassium 2.3, chloride 106, BUN 67, creatinine 1.28, calcium 7.4. ASSESSMENT AND PLAN: 1. Nonoliguric acute kidney injury, with a previous baseline creatinine of 1.0 mg/dL. Etiology of acute kidney injury is secondary to acute tubular necrosis due to septic acute kidney injury, shock, ischemic hypoperfusion. The patient's renal function continues to improve as creatinine continues to trend down. At this point will continue the current treatment plan, continue supportive care, re kirstie dose all meds, avoid nephrotoxins, monitor renal function closely on diuretic therapy. Please note that the patient's urinalysis was previously evaluated by myself under microscopy, with no jose dence of active sediment. The patient's serological workup, including an DAISY and anti-double strand ed DNA have been negative. Very low suspicion for renal limited vasculitis at this time. 2. Volume overload secondary to acute kidney injury, sepsis, diastolic heart failure. Continue th e current diuretic regimen. 3. Hypokalemia. Will replete potassium chloride. Will start Aldactone 25 mg daily. 4. Hypernatremia. Improved. Will decrease free water flushes to 200 mL q.6h. 5. Mineral bone disorder. Continue to monitor calcium and phosphate levels. Continue phos binders . 6. Anemia. Continue to monitor H and H levels. 7. Ventilatory-dependent respiratory failure. Vent settings have been reviewed. ABG was reviewed. 8. Sepsis secondary to multifocal pneumonia. Continue the current antibiotic regimen. 9. Qdi-ST-[id number] myocardial infarction. Continue the current treatment plan. 10. Diabetes. Continue the current insulin regimen. 11. Hypertension. Continue the current blood pressure regimen. 12. Encephalopathy. No change. 13. History of polysubstance abuse. 14. Positive DAISY, with unclear clinical significance. The patient is being followed by rheumatolog y, on empiric steroids. Will defer to them for medical management. Please note, I spent over 40 minutes of critical care time with this patient. Dictated By: LUIS JOSHI/SUNDEEP Conf#: [id number] DID#: [id number]
[2016-12-30 08:03] LABS: AADO2 Arterial 326.3 mmHg (7.0-24.0); Allen Test ACCEPTAB; Arterial Base Excess 6.2 mmol/L (-3.0-3); Arterial COHb 0.2 % (0.0-3.0); Arterial Fraction of Oxyhgb 90.6 % (93.0-99.0); Arterial HCO3 29.3 mmol/L (22.0-26.0); Arterial MetHb 0.4 % (0.0-1.5); Arterial Total Hemglobin 11.7 g/dl (12.0-18.0); MODE VENT - AC
[2016-12-30] MEDS: SEVELAMER CARBONATE 0.8 GM PKT PO SCH ×3 (08:33→17:27)
[2016-12-30] MEDS: SPIRONOLACTONE 25 MG TAB NGT SCH (08:34)
[2016-12-30] MEDS: ASPIRIN 325 MG TAB PO SCH (08:34)
[2016-12-30] MEDS: MEROPENEM 500 MG/100 ML (PMX) 100 ML IVPB SCH ×2 (08:34→21:02)
[2016-12-30] MEDS: AMLODIPINE 5 MG TAB PO SCH (08:35)
[2016-12-30] MEDS: CHOLECALCIFEROL 1,000 UNIT TAB PO SCH (08:35)
[2016-12-30] MEDS: FAMOTIDINE 20 MG TAB PO SCH ×2 (08:35→21:03)
[2016-12-30] MEDS: HEPARIN 5,000 UNIT/0.5 ML VIAL SC SCH ×2 (08:38→21:06)
--- NOTE | 2016-12-30 08:49 | PN ---
Date/Time of Note Date/Time of Note DATE: 12/30/16 TIME: 08:48 Assessment/Plan VTE Prophylaxis VTE Prophylaxis Intervention: heparin Lines/Catheters IV Catheter Type (from [facility]): PICC Line Central line still needed: Yes Urinary Cath still in place: Yes Reason Cath still needed: other (indicate) Assessment/Plan Chief Complaint/Hosp Course 1. Sepsis secondary to underlying community-acquired pneumonia with septic shock. Currently off pressors. On ABX as per ID. Mycoplasma serology abnormal. 2. Acute hypoxic respiratory failure. Most probably secondary to underlying pneumonia versus others. Patient got intubated on 12/18/2016. Continue inhaled bronchodilators. Pulmonology following the patient. 3. Elevated troponins. Most probably a type 2 event from underlying sepsis and underlying acute kidney injury. Cardiology following. 4. Acute kidney injury. The patient had a normal creatinine of 1.00 on 2015. The patient's current acute kidney injury could be most probably secondary to dehydration from persistent vomiting. The patient's nephrotoxic drugs will be held at this time. Being followed by nephrology. 5. Type 2 diabetes mellitus. Uncontrolled. A1C is high (send out). The patient will be maintained on sliding scale insulin along with basal insulin. 6. Dyslipidemia. Continue statins. 7. Essential hypertension. Continue antihypertensives. 8. Hypocalcemia. Probably secondary to underlying hypoalbuminemia. 9. Microcytic, hypochromic anemia. Etiology unclear. Iron panel showing iron deficiency. Continue iron supplements. 10. Vitamin D deficiency. Continue supplements. 11. Fluids, electrolytes, and nutrition. Tube feedings. 12. DVT prophylaxis. Subcutaneous heparin. 13. Gastrointestinal prophylaxis. Histamine 2 receptor blockers. 14. Plan. Continue antibiotics. Continue ventilator support. Ventilator weaning as per Pulmonary. Adjust insulin to obtain optimal blood sugar control. Replete potassium. Case discussed with Dr. Perez. Critical care time: 35 minutes. Problems: Subjective 24 Hr Interval Summary Free Text/Dictation The patient's blood sugars running high. Patient remains afebrile. Exam/Review of Systems Vital Signs Vitals Vital Signs Date Time Temp Pulse Resp B/P Pulse Ox O2 Delivery O2 Flow Rate FiO2 12/30/16 06:00 58 24 158/78 97 Mechanical Ventilator 12/30/16 05:07 60 12/30/16 04:00 98.2 Intake and Output 12/29/16 12/29/1617 15:00 23:00 07:00 Intake Total 1360.65 ml 1532.70 ml 786.71 ml Output Total 895 ml 1470 ml 470 ml Balance 465.65 ml 62.70 ml 316.71 ml Exam GENERAL: This is a morbidly obese male lying in bed, orally intubated and mechanically ventilated. HEENT: Head normocephalic and atraumatic. Eyes: Anicteric sclerae. Conjunctivae clear. ENT: Nasal septum is midline. Oral mucosa is dry. NECK: Short with increased neck circumference. RESPIRATORY: Bilaterally diminished breath sounds. On mechanical ventilator. CARDIAC: Regular rate and rhythm. S1, S2 heard. ABDOMEN: Soft, nontender and nondistended. Bowel sounds positive in all 4 quadrants. GENITOURINARY: Deferred. EXTREMITIES: No cyanosis, no clubbing. B/L LE edema. Pedal pulses palpable. Status post left great toe amputation. NEUROLOGIC: The patient is sedated. Results Result Diagram: 12/30/16 0420 12/30/16 0420 Results 24 hrs Laboratory Tests Test 12/29/16 08:50 12/29/16 12:30 12/29/16 16:38 12/29/16 20:03 Bedside Glucose 313 H 379 H 271 H 290 H Test 12/30/16 01:03 12/30/16 04:20 12/30/16 04:58 12/30/16 07:00 Bedside Glucose 306 H 266 H White Blood Count 14.1 #H Red Blood Count 3.56 L Hemoglobin 9.7 L Hematocrit 30.2 L Mean Corpuscular Volume 84.8 Mean Corpuscular Hemoglobin 27.2 L Mean Corpuscular Hemoglobin Concent 32.1 Red Cell Distribution Width 13.1 Platelet Count 195 Mean Platelet Volume 11.7 H Neutrophils % 90.0 H Lymphocytes % 4.5 L Monocytes % 4.3 Eosinophils % 0.4 Basophils % 0.1 Nucleated Red Blood Cells % 0.0 Neutrophils # 12.7 H Lymphocytes # 0.6 L Monocytes # 0.6 Eosinophils # 0.1 Basophils # 0.0 Nucleated Red Blood Cells # 0.0 Sodium Level 138 Potassium Level 3.3 L Chloride Level 106 Carbon Dioxide Level 31 Anion Gap 4 L Blood Urea Nitrogen 67 H Creatinine 1.28 H Glucose Level 277 H Calcium Level 7.4 L Phosphorus Level 3.9 Magnesium Level 2.2 Blood Gas Specimen Source Blood arterial Arterial Blood Date Drawn 12/30/2016 7:35:52 AM Arterial Blood pH (Temp corrected) 7.517 H Arterial Blood pCO2 (Temp correct) 37.0 Arterial Blood pO2 (Temp corrected) 60.8 L Arterial Blood HCO3 29.3 H Arterial Blood Base Excess 6.2 H Arterial Blood Oxygen Saturation 91.1 L Leobrado Test ACCEPTAB Arterial Blood Gas Puncture Site Right Radial Arterial Blood Carboxyhemoglobin 0.2 Arterial Blood Methemoglobin 0.4 Blood Gas A-a O2 Differential 326.3 H Oxyhemoglobin Percent 90.6 L Total Hemoglobin 11.7 L Blood Gas Temperature 37.0 Blood Gas Respiration Rate 24.0 Blood Gas Actual Respiration Rate 24 Blood Gas Modality VENT - AC FiO2 60.0 Blood Gas Tidal Volume 500.0 Blood Gas Low PEEP Setting 8.0 Blood Gas Notified Whom DT Blood Gas Notified Time 12/30/2016 8:00:35 AM Test 12/30/16 07:59 Bedside Glucose 284 H Medications Medications Current Medications Ondansetron HCl (Zofran Inj) 4 mg Q6H PRN IV NAUSEA AND/OR VOMITING; Start at 13:00 Acetaminophen (Tylenol Tab) 650 mg Q6H PRN PO PAIN LEVEL 1-3 OR FEVER Last administered on 12/29/16 06:02; Admin Dose 650 MG; Start 12/15/16 at 13:00 Acetaminophen/ Hydrocodone Bitart ([place] (5/325)) 1 tab Q6H PRN PO PAIN LEVEL 4 -6 Last administered on 12/15/16 22:08; Admin Dose 1 TAB; Start 12/15/16 at 13: 00 Morphine Sulfate (morphine) 2 mg Q4H PRN IV PAIN LEVEL 7-10 Last administered on 12/25/16 03:03; Admin Dose 2 MG; Start 12/15/16 at 13:00 Magnesium Hydroxide (Milk Of Mag) 30 ml DAILY PRN PO CONSTIPATION; Start at 13:00 Bisacodyl (Dulcolax) 5 mg DAILY PRN PO CONSTIPATION; Start 12/15/16 at 13:00 Famotidine (Pepcid) 20 mg Q12 PO Last administered on 12/29/16 20:08; Admin Dose 20 MG; Start 12/15/16 at 21:00 Hydralazine HCl (Apresoline) 10 mg Q6H PRN IV SBP>160 Last administered on 17:59; Admin Dose 10 MG; Start 12/15/16 at 13:00 Aspirin (Aspirin) 325 mg DAILY PO Last administered on 12/29/16 08:51; Admin Dose 325 MG; Start 12/16/16 at 09:00 Atorvastatin Calcium (Lipitor) 80 mg QHS PO Last administered on 12/29/16 20:10 ; Admin Dose 80 MG; Start 12/15/16 at 21:00 Heparin Sodium (Porcine) (Heparin (5000 Units/0.5 ml)) 5,000 unit BID SC Last administered on 12/29/16 20:14; Admin Dose 5,000 UNIT; Start 12/15/16 at 21:00 Miscellaneous Information 1 ea NOTE XX ; Start 12/15/16 at 14:00 Glucose (Glutose) 15 gm Q15M PRN PO DECREASED GLUCOSE; Start 12/15/16 at 14:00 Glucose (Glutose) 22.5 gm Q15M PRN PO DECREASED GLUCOSE; Start 12/15/16 at 14: 00 Glucagon (Glucagen) 1 mg Q15M PRN IM DECREASED GLUCOSE; Start 12/15/16 at 14:00 Glucose (Glutose) 15 gm Q15M PRN BUCCAL DECREASED GLUCOSE; Start 12/15/16 at 14 :00 Cholecalciferol 1000 unit 1,000 unit DAILY PO Last administered on 12/29/16 08: 51; Admin Dose 1,000 UNIT; Start 12/16/16 at 09:00 Fentanyl (Sublimaze) 100 ml @ 2.5 mls/hr TITRATE IV Last administered on 23:54; Admin Dose 10 MLS/HR; Start 12/18/16 at 03:30 Dextrose (D50w Syringe) 25 ml Q15M PRN IV Till BS 80 mg/dL or above x2; Start 12/18/16 at 14:00 Dextrose (D50w Syringe) 50 ml Q15M PRN IV Till BS 80 mg/dL or above x2; Start 12/18/16 at 14:00 IV Flush 10 ml 10 ml PRN PRN IV IV PROTOCOL; Start 12/18/16 at 17:00 Norepinephrine/ Dextrose (Levophed/D5W) 250 ml @ 0.46 mls/hr TITRATE IV ; Start 12/19/16 at 09:30 Amlodipine Besylate 5 mg 5 mg DAILY PO Last administered on 12/29/16 08:51; Admin Dose 5 MG; Start 12/21/16 at 09:00 Midazolam HCl 50 ml @ 1 mls/hr TITRATE IV Last administered on 12/30/16 05:52; Admin Dose 10 MLS/HR; Start 12/20/16 at 14:00 Propofol (Diprivan) 100 ml @ 3.255 mls/ hr Q12H IV Last administered on 04:57; Admin Dose 19.53 MLS/HR; Start 12/20/16 at 20:30 Hydralazine HCl (Apresoline) 10 mg Q4H PRN IV sbp > 160 Last administered on 22:35; Admin Dose 10 MG; Start 12/22/16 at 06:30 Lorazepam (Ativan) 1 mg Q1H PRN IV agitation Last administered on 12/29/16 16: 35; Admin Dose 1 MG; Start 12/25/16 at 03:30 Carvedilol (Coreg) 6.25 mg BID PO Last administered on 12/29/16 08:51; Admin Dose 6.25 MG; Start 12/25/16 at 21:00 Methylprednisolone Sodium Succinate (Solu-Medrol) 60 mg Q8 IV Last administered on 12/30/16 05:50; Admin Dose 60 MG; Start 12/26/16 at 10:00 Hydralazine HCl 75 mg 75 mg Q8 PO Last administered on 12/30/16 05:50; Admin Dose 75 MG; Start 12/27/16 at 22:00 Meropenem 100 ml @ 200 mls/hr Q12 IVPB Last administered on 12/29/16 20:08; Admin Dose 200 MLS/HR; Start 12/28/16 at 13:00 Caspofungin 50 mg/ Sodium Chloride 250 ml @ 250 mls/hr Q24H IVPB Last administered on 12/29/16 12:26; Admin Dose 250 MLS/HR; Start 12/29/16 at 12:00 Vancomycin HCl/ Sodium Chloride (Vancocin/NS) 500 ml @ 125 mls/hr Q24H IVPB Last administered on 12/29/16 15:48; Admin Dose 125 MLS/HR; Start 12/29/16 at 15: 00 Insulin Aspart (Novolog Insulin Pen) NOVOLOG *MODERATE* ALGORITHM Q4 SC Last administered on 12/30/16 05:03; Admin Dose 8 UNIT; Start 12/29/16 at 09:30 Insulin Glargine (Lantus) 44 unit DAILY@20 SC Last administered on 12/29/16 20: 31; Admin Dose 44 UNIT; Start 12/29/16 at 20:00 Spironolactone (Aldactone) 25 mg DAILY NGT ; Start 12/30/16 at 09:00 GEORGI CORBETT NP December 30, 2016 08:49
--- NOTE | 2016-12-30 09:29 | CONS ---
Date/Time of Note Date/Time of Note DATE: 12/30/16 TIME: 09:27 Consult Date/Type/Reason Admit Date/Time Dec 15, 2016 at 11:20 Type of Consultation: Pulmonary ICU Ordering Provider: LEXII REED Subjective Patient continues mechanical ventilation opens eyes follows simple commands off sedation Currently remains hemodynamically stable Objective Vital Signs Date Time Temp Pulse Resp B/P Pulse Ox O2 Delivery O2 Flow Rate FiO2 12/30/16 08:00 62 12/30/16 06:00 24 158/78 97 Mechanical Ventilator 12/30/16 05:07 60 12/30/16 04:00 98.2 Intake and Output 12/29/16 12/29/16 12/30/16 15:00 23:00 07:00 Intake Total 1360.65 ml 1532.70 ml 786.71 ml Output Total 895 ml 1470 ml 470 ml Balance 465.65 ml 62.70 ml 316.71 ml Exam PHYSICAL EXAMINATION GENERAL: Young gentleman intubated sedated on mechanical ventilation VITAL SIGNS: see below. HEENT: Pupils equal, round, and reactive to light. CARDIAC: S1, S2, no added sounds or murmurs CHEST: Diminished air entry bilaterally. ABDOMEN: Mildly distended. Bowel sounds present. EXTREMITIES: No cyanosis, clubbing edema +1 NEUROLOGIC: Unable to assess Results/Medications Result Diagram: 12/30/16 0420 12/30/16 0420 Results 24 hrs Chest x-ray Left-sided infiltrate Laboratory Tests Test 12/29/16 12:30 12/29/16 16:38 12/29/16 20:03 12/30/16 01:03 Bedside Glucose 379 H 271 H 290 H 306 H Test 12/30/16 04:20 12/30/16 04:58 12/30/16 07:00 12/30/16 07:59 White Blood Count 14.1 #H Red Blood Count 3.56 L Hemoglobin 9.7 L Hematocrit 30.2 L Mean Corpuscular Volume 84.8 Mean Corpuscular Hemoglobin 27.2 L Mean Corpuscular Hemoglobin Concent 32.1 Red Cell Distribution Width 13.1 Platelet Count 195 Mean Platelet Volume 11.7 H Neutrophils % 90.0 H Lymphocytes % 4.5 L Monocytes % 4.3 Eosinophils % 0.4 Basophils % 0.1 Nucleated Red Blood Cells % 0.0 Neutrophils # 12.7 H Lymphocytes # 0.6 L Monocytes # 0.6 Eosinophils # 0.1 Basophils # 0.0 Nucleated Red Blood Cells # 0.0 Sodium Level 138 Potassium Level 3.3 L Chloride Level 106 Carbon Dioxide Level 31 Anion Gap 4 L Blood Urea Nitrogen 67 H Creatinine 1.28 H Glucose Level 277 H Calcium Level 7.4 L Phosphorus Level 3.9 Magnesium Level 2.2 Bedside Glucose 266 H 284 H Blood Gas Specimen Source Blood arterial Arterial Blood Date Drawn 12/30/2016 7:35:52 AM Arterial Blood pH (Temp corrected) 7.517 H Arterial Blood pCO2 (Temp correct) 37.0 Arterial Blood pO2 (Temp corrected) 60.8 L Arterial Blood HCO3 29.3 H Arterial Blood Base Excess 6.2 H Arterial Blood Oxygen Saturation 91.1 L Leobardo Test ACCEPTAB Arterial Blood Gas Puncture Site Right Radial Arterial Blood Carboxyhemoglobin 0.2 Arterial Blood Methemoglobin 0.4 Blood Gas A-a O2 Differential 326.3 H Oxyhemoglobin Percent 90.6 L Total Hemoglobin 11.7 L Blood Gas Temperature 37.0 Blood Gas Respiration Rate 24.0 Blood Gas Actual Respiration Rate 24 Blood Gas Modality VENT - AC FiO2 60.0 Blood Gas Tidal Volume 500.0 Blood Gas Low PEEP Setting 8.0 Blood Gas Notified Whom DT Blood Gas Notified Time 12/30/2016 8:00:35 AM Medications Current Medications Ondansetron HCl (Zofran Inj) 4 mg Q6H PRN IV NAUSEA AND/OR VOMITING; Start at 13:00 Acetaminophen (Tylenol Tab) 650 mg Q6H PRN PO PAIN LEVEL 1-3 OR FEVER Last administered on 12/29/16 06:02; Admin Dose 650 MG; Start 12/15/16 at 13:00 Acetaminophen/ Hydrocodone Bitart ([place] (5/325)) 1 tab Q6H PRN PO PAIN LEVEL 4 -6 Last administered on 12/15/16 22:08; Admin Dose 1 TAB; Start 12/15/16 at 13: 00 Morphine Sulfate (morphine) 2 mg Q4H PRN IV PAIN LEVEL 7-10 Last administered on 12/25/16 03:03; Admin Dose 2 MG; Start 12/15/16 at 13:00 Magnesium Hydroxide (Milk Of Mag) 30 ml DAILY PRN PO CONSTIPATION; Start at 13:00 Bisacodyl (Dulcolax) 5 mg DAILY PRN PO CONSTIPATION; Start 12/15/16 at 13:00 Famotidine (Pepcid) 20 mg Q12 PO Last administered on 12/30/16 08:35; Admin Dose 20 MG; Start 12/15/16 at 21:00 Hydralazine HCl (Apresoline) 10 mg Q6H PRN IV SBP>160 Last administered on 17:59; Admin Dose 10 MG; Start 12/15/16 at 13:00 Aspirin (Aspirin) 325 mg DAILY PO Last administered on 12/30/16 08:34; Admin Dose 325 MG; Start 12/16/16 at 09:00 Atorvastatin Calcium (Lipitor) 80 mg QHS PO Last administered on 12/29/16 20:10 ; Admin Dose 80 MG; Start 12/15/16 at 21:00 Heparin Sodium (Porcine) (Heparin (5000 Units/0.5 ml)) 5,000 unit BID SC Last administered on 12/30/16 08:38; Admin Dose 5,000 UNIT; Start 12/15/16 at 21:00 Miscellaneous Information 1 ea NOTE XX ; Start 12/15/16 at 14:00 Glucose (Glutose) 15 gm Q15M PRN PO DECREASED GLUCOSE; Start 12/15/16 at 14:00 Glucose (Glutose) 22.5 gm Q15M PRN PO DECREASED GLUCOSE; Start 12/15/16 at 14: 00 Glucagon (Glucagen) 1 mg Q15M PRN IM DECREASED GLUCOSE; Start 12/15/16 at 14:00 Glucose (Glutose) 15 gm Q15M PRN BUCCAL DECREASED GLUCOSE; Start 12/15/16 at 14 :00 Cholecalciferol 1000 unit 1,000 unit DAILY PO Last administered on 12/30/16 08: 35; Admin Dose 1,000 UNIT; Start 12/16/16 at 09:00 Fentanyl (Sublimaze) 100 ml @ 2.5 mls/hr TITRATE IV Last administered on 23:54; Admin Dose 10 MLS/HR; Start 12/18/16 at 03:30 Dextrose (D50w Syringe) 25 ml Q15M PRN IV Till BS 80 mg/dL or above x2; Start 12/18/16 at 14:00 Dextrose (D50w Syringe) 50 ml Q15M PRN IV Till BS 80 mg/dL or above x2; Start 12/18/16 at 14:00 IV Flush 10 ml 10 ml PRN PRN IV IV PROTOCOL; Start 12/18/16 at 17:00 Norepinephrine/ Dextrose (Levophed/D5W) 250 ml @ 0.46 mls/hr TITRATE IV ; Start 12/19/16 at 09:30 Amlodipine Besylate 5 mg 5 mg DAILY PO Last administered on 12/30/16 08:35; Admin Dose 5 MG; Start 12/21/16 at 09:00 Midazolam HCl 50 ml @ 1 mls/hr TITRATE IV Last administered on 12/30/16 05:52; Admin Dose 10 MLS/HR; Start 12/20/16 at 14:00 Propofol (Diprivan) 100 ml @ 3.255 mls/ hr Q12H IV Last administered on 04:57; Admin Dose 19.53 MLS/HR; Start 12/20/16 at 20:30 Hydralazine HCl (Apresoline) 10 mg Q4H PRN IV sbp > 160 Last administered on 22:35; Admin Dose 10 MG; Start 12/22/16 at 06:30 Lorazepam (Ativan) 1 mg Q1H PRN IV agitation Last administered on 12/29/16 16: 35; Admin Dose 1 MG; Start 12/25/16 at 03:30 Carvedilol (Coreg) 6.25 mg BID PO Last administered on 12/30/16 08:35; Admin Dose 6.25 MG; Start 12/25/16 at 21:00 Methylprednisolone Sodium Succinate (Solu-Medrol) 60 mg Q8 IV Last administered on 12/30/16 05:50; Admin Dose 60 MG; Start 12/26/16 at 10:00 Hydralazine HCl 75 mg 75 mg Q8 PO Last administered on 12/30/16 05:50; Admin Dose 75 MG; Start 12/27/16 at 22:00 Meropenem 100 ml @ 200 mls/hr Q12 IVPB Last administered on 12/30/16 08:34; Admin Dose 200 MLS/HR; Start 12/28/16 at 13:00 Caspofungin 50 mg/ Sodium Chloride 250 ml @ 250 mls/hr Q24H IVPB Last administered on 12/29/16 12:26; Admin Dose 250 MLS/HR; Start 12/29/16 at 12:00 Vancomycin HCl/ Sodium Chloride (Vancocin/NS) 500 ml @ 125 mls/hr Q24H IVPB Last administered on 12/29/16 15:48; Admin Dose 125 MLS/HR; Start 12/29/16 at 15: 00 Insulin Aspart (Novolog Insulin Pen) NOVOLOG *MODERATE* ALGORITHM Q4 SC Last administered on 12/30/16 08:39; Admin Dose 8 UNIT; Start 12/29/16 at 09:30 Spironolactone (Aldactone) 25 mg DAILY NGT Last administered on 12/30/16 08:34 ; Admin Dose 25 MG; Start 12/30/16 at 09:00 Insulin Glargine (Lantus) 50 unit DAILY@20 SC ; Start 12/30/16 at 20:00 Assessment/Plan Chief Complaint/Hosp Course Assessment 1. Acute hypoxemic respiratory failure possible healthcare associated pneumonia with underlying pulmonary edema 2. Workup for vasculitis will decrease steroids. Appreciate rheumatology recommendations. 3. Diabetes mellitus 4. Renal insufficiency possible ATN injury worsening pulmonary edema on chest x- ray Plan 1. Continue mechanical ventilation increase PEEP to 10 2. Decrease FiO2 as tolerated 3. Continue low-dose steroids 4. Continue broad-spectrum antibiotics 5. Diuretics as tolerated Disposition Continue ICU care Discussed with at bedside Patient will likely need tracheostomy given prolonged mechanical ventilation Problems: VERO SOTO MD, [facility] December 30, 2016 09:29
--- NOTE | 2016-12-30 09:58 | RADRPT ---
PROCEDURE: XR Chest 1 View. CLINICAL INDICATION: Shortness of breath. TECHNIQUE: AP view of the chest was obtained. COMPARISON: December 26, [address] December 27, 2016 FINDINGS: The cardiomediastinal silhouette is within normal limits. Endotracheal and nasogastric tubes are sta ble and appear in grossly appropriate location. Left-sided PICC line is unchanged. Central pulmona ry vascular congestion and interstitial prominence is noted in both lungs. Right lower lobe infiltr ates have decreased. Mild residual remains. Left basilar atelectasis versus mild infiltrates are g rossly stable. The lungs are hypoinflated. The osseous structures appear grossly intact. IMPRESSION: Interval decrease in right lower lobe infiltrates. Mild residual remains. Stable left basilar atelectasis versus mild infiltrates. Mild central pulmonary vascular congestion and interstitial prominence in both lungs. Hypoinflated lungs. RPTAT: AA .Quinten White MD, Date Time Electronically viewed and signed by .Quinten White MD, on 12/30/2016 09:58 .P/
[2016-12-30] MEDS: FENTAnyl (DRIP) 1000 mcg/100mL 100 ML IV SCH ×2 (10:54→20:01)
--- NOTE | 2016-12-30 10:55 | CONS ---
Date/Time of Note Date/Time of Note DATE: 12/30/16 TIME: 10:53 Assessment/Plan Assessment/Plan Additional Assessment/Plan 1. Positive troponin, assess significance.-no sig uptrend/likely demand event in settng fevers/tachy/resp distress - NO CP, no active ischemia 2. Abnormal electrocardiogram with ST depressions with tachycardia and positive troponin, likely indicative of coronary artery disease.-improved ecg findings with improved HR - med rx for 3. Hypertension, uncontrolled mildly still - BP well Rx now 4. Dyslipidemia. 5. Diabetes mellitus - on therapy. 6. Fevers to 104 documented here in the hospital.-ongoing low grade - con't anti-bx 7. Renal failure.-acute on chronic/ ? secondary to vasculitic syndrome 8. Lower extremity edema, assess for congestive heart failure/CHF-diastolic acute on chronic 9. Nausea and vomiting. 10. Chest pain with cough 11.Resp failure s/p intubation - con't resp Rx. 12. Bradycardia-to 40's.Now improved and tolerating BB Consultation Date/Type/Reason Admit Date/Time Dec 15, 2016 at 11:20 Type of Consultation: Pulmonary ICU Referring Provider: LEXII REED 24 HR Interval Summary Free Text/Dictation NO acute change - con't Rx - no CP - no intervention planned now. ROS: No fever, no chills, no nausea, no vomiting, no diarrhea/constipation No recent weight changes No chest pain, no PND, no orthopnea No dizziness, blurred vision No thirst, no heat or cold intolerance (per nurse) Exam/Review of Systems Vital Signs Vitals Vital Signs Date Time Temp Pulse Resp B/P Pulse Ox O2 Delivery O2 Flow Rate FiO2 12/30/16 09:30 74 20 113/91 95 12/30/16 09:00 Mechanical Ventilator 12/30/16 08:00 98.4 12/30/16 08:00 60 Intake and Output 12/29/16 12/29/16 12/30/16 15:00 23:00 07:00 Intake Total 1360.65 ml 1532.70 ml 786.71 ml Output Total 895 ml 1470 ml 470 ml Balance 465.65 ml 62.70 ml 316.71 ml Exam General: WN/WD/NAD, AOx 0 HEENT: Unicetric/atraumatic/EOMI (does not follow commands) NECK: JVD elevated, no thyromegaly Lymph: no lymphadenopathy HEART: regular with no S3, II/ systolic murmur at apex LUNGS: Coarse sounds ABD: soft, NT, ND, +BS : Intact Neuro: non focal SKIN: chronic changes EXT: trace edema Results Result Diagram: 12/30/16 0420 12/30/16 0420 Results 24 hrs Laboratory Tests Test 12/29/16 12:30 12/29/16 16:38 12/29/16 20:03 12/30/16 01:03 Bedside Glucose 379 H 271 H 290 H 306 H Test 12/30/16 04:20 12/30/16 04:58 12/30/16 07:00 12/30/16 07:59 White Blood Count 14.1 #H Red Blood Count 3.56 L Hemoglobin 9.7 L Hematocrit 30.2 L Mean Corpuscular Volume 84.8 Mean Corpuscular Hemoglobin 27.2 L Mean Corpuscular Hemoglobin Concent 32.1 Red Cell Distribution Width 13.1 Platelet Count 195 Mean Platelet Volume 11.7 H Neutrophils % 90.0 H Lymphocytes % 4.5 L Monocytes % 4.3 Eosinophils % 0.4 Basophils % 0.1 Nucleated Red Blood Cells % 0.0 Neutrophils # 12.7 H Lymphocytes # 0.6 L Monocytes # 0.6 Eosinophils # 0.1 Basophils # 0.0 Nucleated Red Blood Cells # 0.0 Sodium Level 138 Potassium Level 3.3 L Chloride Level 106 Carbon Dioxide Level 31 Anion Gap 4 L Blood Urea Nitrogen 67 H Creatinine 1.28 H Glucose Level 277 H Calcium Level 7.4 L Phosphorus Level 3.9 Magnesium Level 2.2 Bedside Glucose 266 H 284 H Blood Gas Specimen Source Blood arterial Arterial Blood Date Drawn 12/30/2016 7:35:52 AM Arterial Blood pH (Temp corrected) 7.517 H Arterial Blood pCO2 (Temp correct) 37.0 Arterial Blood pO2 (Temp corrected) 60.8 L Arterial Blood HCO3 29.3 H Arterial Blood Base Excess 6.2 H Arterial Blood Oxygen Saturation 91.1 L Leobardo Test ACCEPTAB Arterial Blood Gas Puncture Site Right Radial Arterial Blood Carboxyhemoglobin 0.2 Arterial Blood Methemoglobin 0.4 Blood Gas A-a O2 Differential 326.3 H Oxyhemoglobin Percent 90.6 L Total Hemoglobin 11.7 L Blood Gas Temperature 37.0 Blood Gas Respiration Rate 24.0 Blood Gas Actual Respiration Rate 24 Blood Gas Modality VENT - AC FiO2 60.0 Blood Gas Tidal Volume 500.0 Blood Gas Low PEEP Setting 8.0 Blood Gas Notified Whom DT Blood Gas Notified Time 12/30/2016 8:00:35 AM Medications Medications Current Medications Ondansetron HCl (Zofran Inj) 4 mg Q6H PRN IV NAUSEA AND/OR VOMITING; Start at 13:00 Acetaminophen (Tylenol Tab) 650 mg Q6H PRN PO PAIN LEVEL 1-3 OR FEVER Last administered on 12/29/16 06:02; Admin Dose 650 MG; Start 12/15/16 at 13:00 Acetaminophen/ Hydrocodone Bitart ([place] (5/325)) 1 tab Q6H PRN PO PAIN LEVEL 4 -6 Last administered on 12/15/16 22:08; Admin Dose 1 TAB; Start 12/15/16 at 13: 00 Morphine Sulfate (morphine) 2 mg Q4H PRN IV PAIN LEVEL 7-10 Last administered on 12/25/16 03:03; Admin Dose 2 MG; Start 12/15/16 at 13:00 Magnesium Hydroxide (Milk Of Mag) 30 ml DAILY PRN PO CONSTIPATION; Start at 13:00 Bisacodyl (Dulcolax) 5 mg DAILY PRN PO CONSTIPATION; Start 12/15/16 at 13:00 Famotidine (Pepcid) 20 mg Q12 PO Last administered on 12/30/16 08:35; Admin Dose 20 MG; Start 12/15/16 at 21:00 Hydralazine HCl (Apresoline) 10 mg Q6H PRN IV SBP>160 Last administered on 17:59; Admin Dose 10 MG; Start 12/15/16 at 13:00 Aspirin (Aspirin) 325 mg DAILY PO Last administered on 12/30/16 08:34; Admin Dose 325 MG; Start 12/16/16 at 09:00 Atorvastatin Calcium (Lipitor) 80 mg QHS PO Last administered on 12/29/16 20:10 ; Admin Dose 80 MG; Start 12/15/16 at 21:00 Heparin Sodium (Porcine) (Heparin (5000 Units/0.5 ml)) 5,000 unit BID SC Last administered on 12/30/16 08:38; Admin Dose 5,000 UNIT; Start 12/15/16 at 21:00 Miscellaneous Information 1 ea NOTE XX ; Start 12/15/16 at 14:00 Glucose (Glutose) 15 gm Q15M PRN PO DECREASED GLUCOSE; Start 12/15/16 at 14:00 Glucose (Glutose) 22.5 gm Q15M PRN PO DECREASED GLUCOSE; Start 12/15/16 at 14: 00 Glucagon (Glucagen) 1 mg Q15M PRN IM DECREASED GLUCOSE; Start 12/15/16 at 14:00 Glucose (Glutose) 15 gm Q15M PRN BUCCAL DECREASED GLUCOSE; Start 12/15/16 at 14 :00 Cholecalciferol 1000 unit 1,000 unit DAILY PO Last administered on 12/30/16 08: 35; Admin Dose 1,000 UNIT; Start 12/16/16 at 09:00 Fentanyl (Sublimaze) 100 ml @ 2.5 mls/hr TITRATE IV Last administered on 23:54; Admin Dose 10 MLS/HR; Start 12/18/16 at 03:30 Dextrose (D50w Syringe) 25 ml Q15M PRN IV Till BS 80 mg/dL or above x2; Start 12/18/16 at 14:00 Dextrose (D50w Syringe) 50 ml Q15M PRN IV Till BS 80 mg/dL or above x2; Start 12/18/16 at 14:00 IV Flush 10 ml 10 ml PRN PRN IV IV PROTOCOL; Start 12/18/16 at 17:00 Norepinephrine/ Dextrose (Levophed/D5W) 250 ml @ 0.46 mls/hr TITRATE IV ; Start 12/19/16 at 09:30 Amlodipine Besylate 5 mg 5 mg DAILY PO Last administered on 12/30/16 08:35; Admin Dose 5 MG; Start 12/21/16 at 09:00 Midazolam HCl 50 ml @ 1 mls/hr TITRATE IV Last administered on 12/30/16 05:52; Admin Dose 10 MLS/HR; Start 12/20/16 at 14:00 Propofol (Diprivan) 100 ml @ 3.255 mls/ hr Q12H IV Last administered on 09:42; Admin Dose 19.53 MLS/HR; Start 12/20/16 at 20:30 Hydralazine HCl (Apresoline) 10 mg Q4H PRN IV sbp > 160 Last administered on 22:35; Admin Dose 10 MG; Start 12/22/16 at 06:30 Lorazepam (Ativan) 1 mg Q1H PRN IV agitation Last administered on 12/29/16 16: 35; Admin Dose 1 MG; Start 12/25/16 at 03:30 Carvedilol (Coreg) 6.25 mg BID PO Last administered on 12/30/16 08:35; Admin Dose 6.25 MG; Start 12/25/16 at 21:00 Methylprednisolone Sodium Succinate (Solu-Medrol) 60 mg Q8 IV Last administered on 12/30/16 05:50; Admin Dose 60 MG; Start 12/26/16 at 10:00 Hydralazine HCl 75 mg 75 mg Q8 PO Last administered on 12/30/16 05:50; Admin Dose 75 MG; Start 12/27/16 at 22:00 Meropenem 100 ml @ 200 mls/hr Q12 IVPB Last administered on 12/30/16 08:34; Admin Dose 200 MLS/HR; Start 12/28/16 at 13:00 Caspofungin 50 mg/ Sodium Chloride 250 ml @ 250 mls/hr Q24H IVPB Last administered on 12/29/16 12:26; Admin Dose 250 MLS/HR; Start 12/29/16 at 12:00 Vancomycin HCl/ Sodium Chloride (Vancocin/NS) 500 ml @ 125 mls/hr Q24H IVPB Last administered on 12/29/16 15:48; Admin Dose 125 MLS/HR; Start 12/29/16 at 15: 00 Insulin Aspart (Novolog Insulin Pen) NOVOLOG *MODERATE* ALGORITHM Q4 SC Last administered on 12/30/16 08:39; Admin Dose 8 UNIT; Start 12/29/16 at 09:30 Spironolactone (Aldactone) 25 mg DAILY NGT Last administered on 12/30/16 08:34 ; Admin Dose 25 MG; Start 12/30/16 at 09:00 Insulin Glargine (Lantus) 50 unit DAILY@20 SC ; Start 12/30/16 at 20:00 DELIA BILLY MD December 30, 2016 10:55
--- NOTE | 2016-12-30 12:18 | CONS ---
Date/Time of Note Date/Time of Note DATE: 12/30/16 TIME: 12:16 Consult Date/Type/Reason Admit Date/Time Dec 15, 2016 at 11:20 Type of Consultation: Rheum Ordering Provider: LEXII REED Objective Vital Signs Date Time Temp Pulse Resp B/P Pulse Ox O2 Delivery O2 Flow Rate FiO2 12/30/16 11:20 72 25 95 60 12/30/16 09:30 113/91 12/30/16 09:00 Mechanical Ventilator 12/30/16 08:00 98.4 Intake and Output 12/29/16 12/29/16 12/30/16 14:59 22:59 06:59 Intake Total 1324.39 ml 1529.43 ml 866.24 ml Output Total 1250 ml 1435 ml 550 ml Balance 74.39 ml 94.43 ml 316.24 ml Exam Continues sedated, intubated. Skin without new acute lesions. Chest scattered crackles. Heart RRR Abd soft. Ext. No synovitis Results/Medications Result Diagram: 12/30/16 0420 12/30/16 0420 Results 24 hrs Laboratory Tests Test 12/29/16 12:30 12/29/16 16:38 12/29/16 20:03 12/30/16 01:03 Bedside Glucose 379 H 271 H 290 H 306 H Test 12/30/16 04:20 12/30/16 04:58 12/30/16 07:00 12/30/16 07:59 White Blood Count 14.1 #H Red Blood Count 3.56 L Hemoglobin 9.7 L Hematocrit 30.2 L Mean Corpuscular Volume 84.8 Mean Corpuscular Hemoglobin 27.2 L Mean Corpuscular Hemoglobin Concent 32.1 Red Cell Distribution Width 13.1 Platelet Count 195 Mean Platelet Volume 11.7 H Neutrophils % 90.0 H Lymphocytes % 4.5 L Monocytes % 4.3 Eosinophils % 0.4 Basophils % 0.1 Nucleated Red Blood Cells % 0.0 Neutrophils # 12.7 H Lymphocytes # 0.6 L Monocytes # 0.6 Eosinophils # 0.1 Basophils # 0.0 Nucleated Red Blood Cells # 0.0 Sodium Level 138 Potassium Level 3.3 L Chloride Level 106 Carbon Dioxide Level 31 Anion Gap 4 L Blood Urea Nitrogen 67 H Creatinine 1.28 H Glucose Level 277 H Calcium Level 7.4 L Phosphorus Level 3.9 Magnesium Level 2.2 Bedside Glucose 266 H 284 H Blood Gas Specimen Source Blood arterial Arterial Blood Date Drawn 12/30/2016 7:35:52 AM Arterial Blood pH (Temp corrected) 7.517 H Arterial Blood pCO2 (Temp correct) 37.0 Arterial Blood pO2 (Temp corrected) 60.8 L Arterial Blood HCO3 29.3 H Arterial Blood Base Excess 6.2 H Arterial Blood Oxygen Saturation 91.1 L Leobardo Test ACCEPTAB Arterial Blood Gas Puncture Site Right Radial Arterial Blood Carboxyhemoglobin 0.2 Arterial Blood Methemoglobin 0.4 Blood Gas A-a O2 Differential 326.3 H Oxyhemoglobin Percent 90.6 L Total Hemoglobin 11.7 L Blood Gas Temperature 37.0 Blood Gas Respiration Rate 24.0 Blood Gas Actual Respiration Rate 24 Blood Gas Modality VENT - AC FiO2 60.0 Blood Gas Tidal Volume 500.0 Blood Gas Low PEEP Setting 8.0 Blood Gas Notified Whom DT Blood Gas Notified Time 12/30/2016 8:00:35 AM Medications Current Medications Ondansetron HCl (Zofran Inj) 4 mg Q6H PRN IV NAUSEA AND/OR VOMITING; Start at 13:00 Acetaminophen (Tylenol Tab) 650 mg Q6H PRN PO PAIN LEVEL 1-3 OR FEVER Last administered on 12/29/16 06:02; Admin Dose 650 MG; Start 12/15/16 at 13:00 Acetaminophen/ Hydrocodone Bitart ([place] (5/325)) 1 tab Q6H PRN PO PAIN LEVEL 4 -6 Last administered on 12/15/16 22:08; Admin Dose 1 TAB; Start 12/15/16 at 13: 00 Morphine Sulfate (morphine) 2 mg Q4H PRN IV PAIN LEVEL 7-10 Last administered on 12/25/16 03:03; Admin Dose 2 MG; Start 12/15/16 at 13:00 Magnesium Hydroxide (Milk Of Mag) 30 ml DAILY PRN PO CONSTIPATION; Start at 13:00 Bisacodyl (Dulcolax) 5 mg DAILY PRN PO CONSTIPATION; Start 12/15/16 at 13:00 Famotidine (Pepcid) 20 mg Q12 PO Last administered on 12/30/16 08:35; Admin Dose 20 MG; Start 12/15/16 at 21:00 Hydralazine HCl (Apresoline) 10 mg Q6H PRN IV SBP>160 Last administered on 17:59; Admin Dose 10 MG; Start 12/15/16 at 13:00 Aspirin (Aspirin) 325 mg DAILY PO Last administered on 12/30/16 08:34; Admin Dose 325 MG; Start 12/16/16 at 09:00 Atorvastatin Calcium (Lipitor) 80 mg QHS PO Last administered on 12/29/16 20:10 ; Admin Dose 80 MG; Start 12/15/16 at 21:00 Heparin Sodium (Porcine) (Heparin (5000 Units/0.5 ml)) 5,000 unit BID SC Last administered on 12/30/16 08:38; Admin Dose 5,000 UNIT; Start 12/15/16 at 21:00 Miscellaneous Information 1 ea NOTE XX ; Start 12/15/16 at 14:00 Glucose (Glutose) 15 gm Q15M PRN PO DECREASED GLUCOSE; Start 12/15/16 at 14:00 Glucose (Glutose) 22.5 gm Q15M PRN PO DECREASED GLUCOSE; Start 12/15/16 at 14: 00 Glucagon (Glucagen) 1 mg Q15M PRN IM DECREASED GLUCOSE; Start 12/15/16 at 14:00 Glucose (Glutose) 15 gm Q15M PRN BUCCAL DECREASED GLUCOSE; Start 12/15/16 at 14 :00 Cholecalciferol 1000 unit 1,000 unit DAILY PO Last administered on 12/30/16 08: 35; Admin Dose 1,000 UNIT; Start 12/16/16 at 09:00 Fentanyl (Sublimaze) 100 ml @ 2.5 mls/hr TITRATE IV Last administered on 10:54; Admin Dose 10 MLS/HR; Start 12/18/16 at 03:30 Dextrose (D50w Syringe) 25 ml Q15M PRN IV Till BS 80 mg/dL or above x2; Start 12/18/16 at 14:00 Dextrose (D50w Syringe) 50 ml Q15M PRN IV Till BS 80 mg/dL or above x2; Start 12/18/16 at 14:00 IV Flush 10 ml 10 ml PRN PRN IV IV PROTOCOL; Start 12/18/16 at 17:00 Norepinephrine/ Dextrose (Levophed/D5W) 250 ml @ 0.46 mls/hr TITRATE IV ; Start 12/19/16 at 09:30 Amlodipine Besylate 5 mg 5 mg DAILY PO Last administered on 12/30/16 08:35; Admin Dose 5 MG; Start 12/21/16 at 09:00 Midazolam HCl 50 ml @ 1 mls/hr TITRATE IV Last administered on 12/30/16 05:52; Admin Dose 10 MLS/HR; Start 12/20/16 at 14:00 Propofol (Diprivan) 100 ml @ 3.255 mls/ hr Q12H IV Last administered on 09:42; Admin Dose 19.53 MLS/HR; Start 12/20/16 at 20:30 Hydralazine HCl (Apresoline) 10 mg Q4H PRN IV sbp > 160 Last administered on 22:35; Admin Dose 10 MG; Start 12/22/16 at 06:30 Lorazepam (Ativan) 1 mg Q1H PRN IV agitation Last administered on 12/29/16 16: 35; Admin Dose 1 MG; Start 12/25/16 at 03:30 Carvedilol (Coreg) 6.25 mg BID PO Last administered on 12/30/16 08:35; Admin Dose 6.25 MG; Start 12/25/16 at 21:00 Methylprednisolone Sodium Succinate (Solu-Medrol) 60 mg Q8 IV Last administered on 12/30/16 05:50; Admin Dose 60 MG; Start 12/26/16 at 10:00 Hydralazine HCl 75 mg 75 mg Q8 PO Last administered on 12/30/16 05:50; Admin Dose 75 MG; Start 12/27/16 at 22:00 Meropenem 100 ml @ 200 mls/hr Q12 IVPB Last administered on 12/30/16 08:34; Admin Dose 200 MLS/HR; Start 12/28/16 at 13:00 Caspofungin 50 mg/ Sodium Chloride 250 ml @ 250 mls/hr Q24H IVPB Last administered on 12/29/16 12:26; Admin Dose 250 MLS/HR; Start 12/29/16 at 12:00 Vancomycin HCl/ Sodium Chloride (Vancocin/NS) 500 ml @ 125 mls/hr Q24H IVPB Last administered on 12/29/16 15:48; Admin Dose 125 MLS/HR; Start 12/29/16 at 15: 00 Insulin Aspart (Novolog Insulin Pen) NOVOLOG *MODERATE* ALGORITHM Q4 SC Last administered on 12/30/16 08:39; Admin Dose 8 UNIT; Start 12/29/16 at 09:30 Spironolactone (Aldactone) 25 mg DAILY NGT Last administered on 12/30/16 08:34 ; Admin Dose 25 MG; Start 12/30/16 at 09:00 Insulin Glargine (Lantus) 50 unit DAILY@20 SC ; Start 12/30/16 at 20:00 Assessment/Plan Chief Complaint/Hosp Course 1. Positive DAISY of unclear significance so far. DS DNA still pending. No definite evidence of vasculitis, Continues on steroids empirically . 2. Respiratory failure. 3. Renal insufficiency Much improved. 4. Diabetes mellitus. Glucose increased on steroids. 5. Hypertension. Rec. Steroid dose per pulmonary Problems: ELIZABETH PUCKETT MD December 30, 2016 12:18
--- NOTE | 2016-12-30 12:58 | CONS ---
Date/Time of Note Date/Time of Note DATE: 12/30/16 TIME: 12:57 Assessment/Plan Assessment/Plan Chief Complaint/Hosp Course SUBJECTIVE: No events overnight. The patient remains intubated, low grade temps, nad MICROBIOLOGY: Blood culture on 12/27/2016 remain negative. Urine culture grew Estrellita albicans. Sputum culture growing coagulase-negative staph and Estrellita albicans and Estrellita glabrata. INDWELLINGS: Endotracheal tube, NG tube, Ritchie catheter, PICC line. ANTIMICROBIALS: 1. Vancomycin. 2. Cancidas. 3. Meropenem. PHYSICAL EXAMINATION: GENERAL: This is an obese, well-developed, middle-aged man who is in no distress. HEENT: Head atraumatic, normocephalic. Sclerae anicteric. Buccal mucosa dry. NECK: Supple, trachea midline. CHEST: Rise symmetrical. Breath sounds diminished at the bases. HEART: S1, S2. ABDOMEN: Soft. Bowel tones present. EXTREMITIES: Without cyanosis. Bilateral trace edema. ASSESSMENT: 1. Acute hypoxemic respiratory failure. 2. Multilobular pneumonia. 3. ARDS. 4. Acute renal failure. 5. Persistent leukocytosis, patient is on Solu-Medrol every 8 hours IV. 6. Positive DAISY, significance unclear, no evidence of vasculitis per rheumatology note. 7. Diabetes. 8. Urinary tract infection. PLAN: The patient remains hemodynamically stable. WBC tracing down. He is being followed by multiple consultants. Continue current antibiotics. DW staff Problems: Consultation Date/Type/Reason Admit Date/Time Dec 15, 2016 at 11:20 Initial Consult Date Type of Consultation: ID Referring Provider: LEXII REED Exam/Review of Systems Vital Signs Vitals Vital Signs Date Time Temp Pulse Resp B/P Pulse Ox O2 Delivery O2 Flow Rate FiO2 12/30/16 12:00 70 12/30/16 11:20 25 95 60 12/30/16 09:30 113/91 12/30/16 09:00 Mechanical Ventilator 12/30/16 08:00 98.4 Intake and Output 12/29/16 12/29/16 12/30/16 15:00 23:00 07:00 Intake Total 1360.65 ml 1532.70 ml 786.71 ml Output Total 895 ml 1470 ml 470 ml Balance 465.65 ml 62.70 ml 316.71 ml Results Result Diagram: 12/30/16 0420 12/30/16 0420 Results 24 hrs Laboratory Tests Test 12/29/16 16:38 12/29/16 20:03 12/30/16 01:03 12/30/16 04:20 Bedside Glucose 271 H 290 H 306 H White Blood Count 14.1 #H Red Blood Count 3.56 L Hemoglobin 9.7 L Hematocrit 30.2 L Mean Corpuscular Volume 84.8 Mean Corpuscular Hemoglobin 27.2 L Mean Corpuscular Hemoglobin Concent 32.1 Red Cell Distribution Width 13.1 Platelet Count 195 Mean Platelet Volume 11.7 H Neutrophils % 90.0 H Lymphocytes % 4.5 L Monocytes % 4.3 Eosinophils % 0.4 Basophils % 0.1 Nucleated Red Blood Cells % 0.0 Neutrophils # 12.7 H Lymphocytes # 0.6 L Monocytes # 0.6 Eosinophils # 0.1 Basophils # 0.0 Nucleated Red Blood Cells # 0.0 Sodium Level 138 Potassium Level 3.3 L Chloride Level 106 Carbon Dioxide Level 31 Anion Gap 4 L Blood Urea Nitrogen 67 H Creatinine 1.28 H Glucose Level 277 H Calcium Level 7.4 L Phosphorus Level 3.9 Magnesium Level 2.2 Test 12/30/16 04:58 12/30/16 07:00 12/30/16 07:59 Bedside Glucose 266 H 284 H Blood Gas Specimen Source Blood arterial Arterial Blood Date Drawn 12/30/2016 7:35:52 AM Arterial Blood pH (Temp corrected) 7.517 H Arterial Blood pCO2 (Temp correct) 37.0 Arterial Blood pO2 (Temp corrected) 60.8 L Arterial Blood HCO3 29.3 H Arterial Blood Base Excess 6.2 H Arterial Blood Oxygen Saturation 91.1 L Leobardo Test ACCEPTAB Arterial Blood Gas Puncture Site Right Radial Arterial Blood Carboxyhemoglobin 0.2 Arterial Blood Methemoglobin 0.4 Blood Gas A-a O2 Differential 326.3 H Oxyhemoglobin Percent 90.6 L Total Hemoglobin 11.7 L Blood Gas Temperature 37.0 Blood Gas Respiration Rate 24.0 Blood Gas Actual Respiration Rate 24 Blood Gas Modality VENT - AC FiO2 60.0 Blood Gas Tidal Volume 500.0 Blood Gas Low PEEP Setting 8.0 Blood Gas Notified Whom DT Blood Gas Notified Time 12/30/2016 8:00:35 AM Medications Medications Current Medications Ondansetron HCl (Zofran Inj) 4 mg Q6H PRN IV NAUSEA AND/OR VOMITING; Start at 13:00 Acetaminophen (Tylenol Tab) 650 mg Q6H PRN PO PAIN LEVEL 1-3 OR FEVER Last administered on 12/29/16 06:02; Admin Dose 650 MG; Start 12/15/16 at 13:00 Acetaminophen/ Hydrocodone Bitart ([place] (5/325)) 1 tab Q6H PRN PO PAIN LEVEL 4 -6 Last administered on 12/15/16 22:08; Admin Dose 1 TAB; Start 12/15/16 at 13: 00 Morphine Sulfate (morphine) 2 mg Q4H PRN IV PAIN LEVEL 7-10 Last administered on 12/25/16 03:03; Admin Dose 2 MG; Start 12/15/16 at 13:00 Magnesium Hydroxide (Milk Of Mag) 30 ml DAILY PRN PO CONSTIPATION; Start at 13:00 Bisacodyl (Dulcolax) 5 mg DAILY PRN PO CONSTIPATION; Start 12/15/16 at 13:00 Famotidine (Pepcid) 20 mg Q12 PO Last administered on 12/30/16 08:35; Admin Dose 20 MG; Start 12/15/16 at 21:00 Hydralazine HCl (Apresoline) 10 mg Q6H PRN IV SBP>160 Last administered on 17:59; Admin Dose 10 MG; Start 12/15/16 at 13:00 Aspirin (Aspirin) 325 mg DAILY PO Last administered on 12/30/16 08:34; Admin Dose 325 MG; Start 12/16/16 at 09:00 Atorvastatin Calcium (Lipitor) 80 mg QHS PO Last administered on 12/29/16 20:10 ; Admin Dose 80 MG; Start 12/15/16 at 21:00 Heparin Sodium (Porcine) (Heparin (5000 Units/0.5 ml)) 5,000 unit BID SC Last administered on 12/30/16 08:38; Admin Dose 5,000 UNIT; Start 12/15/16 at 21:00 Miscellaneous Information 1 ea NOTE XX ; Start 12/15/16 at 14:00 Glucose (Glutose) 15 gm Q15M PRN PO DECREASED GLUCOSE; Start 12/15/16 at 14:00 Glucose (Glutose) 22.5 gm Q15M PRN PO DECREASED GLUCOSE; Start 12/15/16 at 14: 00 Glucagon (Glucagen) 1 mg Q15M PRN IM DECREASED GLUCOSE; Start 12/15/16 at 14:00 Glucose (Glutose) 15 gm Q15M PRN BUCCAL DECREASED GLUCOSE; Start 12/15/16 at 14 :00 Cholecalciferol 1000 unit 1,000 unit DAILY PO Last administered on 12/30/16 08: 35; Admin Dose 1,000 UNIT; Start 12/16/16 at 09:00 Fentanyl (Sublimaze) 100 ml @ 2.5 mls/hr TITRATE IV Last administered on 10:54; Admin Dose 10 MLS/HR; Start 12/18/16 at 03:30 Dextrose (D50w Syringe) 25 ml Q15M PRN IV Till BS 80 mg/dL or above x2; Start 12/18/16 at 14:00 Dextrose (D50w Syringe) 50 ml Q15M PRN IV Till BS 80 mg/dL or above x2; Start 12/18/16 at 14:00 IV Flush 10 ml 10 ml PRN PRN IV IV PROTOCOL; Start 12/18/16 at 17:00 Norepinephrine/ Dextrose (Levophed/D5W) 250 ml @ 0.46 mls/hr TITRATE IV ; Start 12/19/16 at 09:30 Amlodipine Besylate 5 mg 5 mg DAILY PO Last administered on 12/30/16 08:35; Admin Dose 5 MG; Start 12/21/16 at 09:00 Midazolam HCl 50 ml @ 1 mls/hr TITRATE IV Last administered on 12/30/16 05:52; Admin Dose 10 MLS/HR; Start 12/20/16 at 14:00 Propofol (Diprivan) 100 ml @ 3.255 mls/ hr Q12H IV Last administered on 09:42; Admin Dose 19.53 MLS/HR; Start 12/20/16 at 20:30 Hydralazine HCl (Apresoline) 10 mg Q4H PRN IV sbp > 160 Last administered on 22:35; Admin Dose 10 MG; Start 12/22/16 at 06:30 Lorazepam (Ativan) 1 mg Q1H PRN IV agitation Last administered on 12/29/16 16: 35; Admin Dose 1 MG; Start 12/25/16 at 03:30 Carvedilol (Coreg) 6.25 mg BID PO Last administered on 12/30/16 08:35; Admin Dose 6.25 MG; Start 12/25/16 at 21:00 Methylprednisolone Sodium Succinate (Solu-Medrol) 60 mg Q8 IV Last administered on 12/30/16 05:50; Admin Dose 60 MG; Start 12/26/16 at 10:00 Hydralazine HCl 75 mg 75 mg Q8 PO Last administered on 12/30/16 05:50; Admin Dose 75 MG; Start 12/27/16 at 22:00 Meropenem 100 ml @ 200 mls/hr Q12 IVPB Last administered on 12/30/16 08:34; Admin Dose 200 MLS/HR; Start 12/28/16 at 13:00 Caspofungin 50 mg/ Sodium Chloride 250 ml @ 250 mls/hr Q24H IVPB Last administered on 12/29/16 12:26; Admin Dose 250 MLS/HR; Start 12/29/16 at 12:00 Vancomycin HCl/ Sodium Chloride (Vancocin/NS) 500 ml @ 125 mls/hr Q24H IVPB Last administered on 12/29/16 15:48; Admin Dose 125 MLS/HR; Start 12/29/16 at 15: 00 Insulin Aspart (Novolog Insulin Pen) NOVOLOG *MODERATE* ALGORITHM Q4 SC Last administered on 12/30/16 08:39; Admin Dose 8 UNIT; Start 12/29/16 at 09:30 Spironolactone (Aldactone) 25 mg DAILY NGT Last administered on 12/30/16 08:34 ; Admin Dose 25 MG; Start 12/30/16 at 09:00 Insulin Glargine (Lantus) 50 unit DAILY@20 SC ; Start 12/30/16 at 20:00 YOLETTE RODRIGUEZ NP December 30, 2016 12:58
[2016-12-30] MEDS: CASPOFUNGIN 50 MG in SOD CHLORIDE 0.9% 250 ML IVPB SCH (14:18)
[2016-12-30] MEDS: VANCOMYCIN 1.75 GM in NS 500 ML IVPB SCH (17:05)
[2016-12-30] MEDS ORDERED: INSULIN GLARGINE [LANtus] 3 ML PEN SC SCH (20:00)
[2016-12-30] MEDS: ATORVASTATIN 80 MG TAB PO SCH (21:03)
[2016-12-31] VITALS (53 sets, daily range): BP systolic 110–165; BP diastolic 56–87; PULSE 60–78; RESP 8–24
[2016-12-31] MEDS: PROPOFOL 100 ML IV SCH ×6 (00:30→19:29)
[2016-12-31] MEDS: INSULIN ASPART [NOVOLOG] 3 ML PEN SC SCH ×6 (01:16→20:54)
[2016-12-31] MEDS: LEVALBUTEROL (HFA) 15 GM INHALER INH SCH ×4 (01:25→19:05)
[2016-12-31] MEDS: MIDAZOLAM (DRIP) 50 mg/50 mL 50 ML IV SCH ×4 (04:01→20:45)
[2016-12-31 04:26] LABS: ADD SCAN DIFF NO
[2016-12-31 04:29] LABS: ABNORMAL IP MESSAGE 1; BASOPHILS % 0.1 % (0.0-2.0); EOSINOPHILS % 0.2 % (0.0-7.0); HEMATOCRIT 29.4 % (42.0-52.0); HEMOGLOBIN 9.9 g/dl (14.0-18.0); LYMPHOCYTES # 0.6 10^3/ul (0.8-2.9); LYMPHOCYTES % 5.6 % (15.0-51.0); MEAN CORPUSCULAR HEMOGLOBIN 28.4 pg (29.0-33.0); MEAN CORPUSCULAR HGB CONC 33.7 g/dl (32.0-37.0); MEAN CORPUSCULAR VOLUME 84.5 fl (82.0-101.0); MEAN PLATELET VOLUME 11.8 fl (7.4-10.4); MONOCYTE # 0.5 10^3/ul (0.3-0.9); MONOCYTES % 4.4 % (0.0-11.0); NEUTROPHIL # 9.3 10^3/ul (1.6-7.5); NEUTROPHILS % 88.8 % (39.0-77.0); PLATELET COUNT 189 10^3/UL (140-415); RED BLOOD COUNT 3.48 10^6/ul (4.70-6.10); RED CELL DISTRIBUTION WIDTH 12.9 % (11.5-14.5); WHITE BLOOD COUNT 10.4 10^3/ul (4.8-10.8)
[2016-12-31 04:46] LABS: CALCIUM 7.4 mg/dl (8.4-10.2); CREATININE 1.18 mg/dl (0.61-1.24); MAGNESIUM 2.2 mg/dl (1.7-2.5); PHOSPHORUS 3.8 mg/dl (2.5-4.9); POTASSIUM 3.6 mmol/L (3.5-5.1)
[2016-12-31] MEDS: hydrALAzine 20 MG INJ IV PRN (04:53)
[2016-12-31] MEDS: METHYLPREDNISOLONE 125 MG INJ IV SCH ×3 (05:54→22:00)
[2016-12-31] MEDS: FUROSEMIDE 40 MG INJ IV SCH (05:56)
[2016-12-31] MEDS: FENTAnyl (DRIP) 1000 mcg/100mL 100 ML IV SCH ×2 (06:48→17:06)
--- NOTE | 2016-12-31 07:55 | PN ---
DATE: 12/31/2016 SUBJECTIVE: The patient remains critically ill on ventilatory support, although being weaned down o n FIO2 requirements. The patient's urinary output remains adequate. No other acute events noted. No hemoptysis, hematemesis, or hematochezia. OBJECTIVE: VITAL SIGNS: Blood pressure is 127/65, respirations 24, pulse 66, temperature 98.7. I's AND O'S: The patient had 2.9 L in and 2.9 liters out. HEENT: Head is normocephalic. NECK: Supple. HEART: Regular rate. LUNGS: Show diminished breath sounds at the base. ABDOMEN: Soft, nontender to palpation without rebound or guarding. EXTREMITIES: Negative for clubbing, cyanosis. Trace edema. DERMATOLOGIC: No rashes. MUSCULOSKELETAL: No joint effusions. NEUROLOGIC: No change in exam. MEDICATIONS: The patient's medications have been reviewed. LABORATORY DATA: Shows sodium 141, potassium 2.6, chloride 108, BUN 64, creatinine 1.18. White cou nt 10.4, hemoglobin 9.9, hematocrit 29.4, platelet count 189. Chest x-ray shows decreased infiltrat e. ABG reviewed shows a pH of 7.51 with a pCO2 of 37. ASSESSMENT AND PLAN: 1. Nonoliguric acute kidney injury with a previous baseline creatinine of 1.0 mg/dL. Etiology of a cute kidney injury is secondary to acute tubular necrosis due to septic acute kidney injury shock. The patient's renal function continues to improve as he is in recovery phase of ATN. Creatinine now back near previous baseline. At this point, continue current treatment plan, supportive care, mita lly dose all meds. 2. Volume overload secondary to acute kidney injury, sepsis, diastolic heart failure. The patient is nearing euvolemic status. We will discontinue Lasix as the patient is alkalemia and give Diamox. 3. Metabolic alkalemia. Etiology is likely secondary to diuretic use. We will hold Lasix at this time and give 1 dose of Diamox. Monitor closely. 4. Hypokalemia. Continue to monitor. Continue Aldactone. 5. Hypernatremia, resolved. We will continue free water flushes, 200 mL q. 6 hours. 6. Mineral bone disorder. We will monitor calcium and phosphorus levels. Continue phosphate binde rs. 7. Anemia. Continue to monitor hemoglobin and hematocrit levels. 8. Ventilator dependent respiratory failure. Vent settings have been reviewed. ABG has been revie wed. 9. Sepsis secondary to multifocal pneumonia. Continue current antibiotic regimen. 10. Non-ST elevation myocardial infarction. Continue current treatment plan. 11. Diabetes. Continue Accu-Cheks and sliding scale. 12. Hypertension. Continue current blood pressure regimen. 13. Encephalopathy. No change. 14. History of polysubstance abuse. Positive DAISY with unclear clinical significance. Continue to monitor. Follow up with hematology. Please note I spent over 35 minutes of critical care time with this patient. Dictated By: LUIS DICKINSON DO NR/NTS Conf#: [id number] DID#: [id number]
[2016-12-31] MEDS ORDERED: ACETAZOLAMIDE 500 MG INJ IV ONE (08:00)
[2016-12-31 08:09] LABS: AADO2 Arterial 257.1 mmHg (7.0-24.0); Allen Test ACCEPTAB; Arterial Base Excess 9.3 mmol/L (-3.0-3); Arterial COHb 0.3 % (0.0-3.0); Arterial Fraction of Oxyhgb 88.7 % (93.0-99.0); Arterial HCO3 32.6 mmol/L (22.0-26.0); Arterial MetHb 0.5 % (0.0-1.5); Arterial Total Hemglobin 10.7 g/dl (12.0-18.0); MODE VENT - AC
[2016-12-31] MEDS: FAMOTIDINE 20 MG TAB PO SCH ×2 (08:35→20:46)
[2016-12-31] MEDS: SEVELAMER CARBONATE 0.8 GM PKT PO SCH ×3 (08:35→17:07)
[2016-12-31] MEDS: ASPIRIN 325 MG TAB PO SCH (08:35)
[2016-12-31] MEDS: MEROPENEM 500 MG/100 ML (PMX) 100 ML IVPB SCH ×2 (08:36→20:46)
[2016-12-31] MEDS: SPIRONOLACTONE 25 MG TAB NGT SCH (08:36)
[2016-12-31] MEDS: AMLODIPINE 5 MG TAB PO SCH (08:36)
[2016-12-31] MEDS: CHOLECALCIFEROL 1,000 UNIT TAB PO SCH (08:36)
[2016-12-31] MEDS: HEPARIN 5,000 UNIT/0.5 ML VIAL SC SCH ×2 (08:37→20:54)
--- NOTE | 2016-12-31 08:44 | PN ---
Date/Time of Note Date/Time of Note DATE: 12/31/16 TIME: 08:40 Assessment/Plan VTE Prophylaxis VTE Prophylaxis Intervention: heparin Lines/Catheters IV C[facility]ter Type (from [facility] PICC Line Central line still needed: Yes Urinary Cath still in place: Yes Reason Cath still needed: other (indicate) Assessment/Plan Chief Complaint/Hosp Course 1. Sepsis secondary to underlying community-acquired pneumonia with septic shock. Currently off pressors. On ABX as per ID. Mycoplasma serology abnormal. 2. Acute hypoxic respiratory failure. Most probably secondary to underlying pneumonia versus others. Patient got intubated on 12/18/2016. Continue inhaled bronchodilators. Pulmonology following the patient. 3. Elevated troponins. Most probably a type 2 event from underlying sepsis and underlying acute kidney injury. Cardiology following. 4. Acute kidney injury. The patient had a normal creatinine of 1.00 on 2015. The patient's current acute kidney injury could be most probably secondary to dehydration from persistent vomiting. The patient's nephrotoxic drugs will be held at this time. Being followed by nephrology. 5. Type 2 diabetes mellitus. Uncontrolled. A1C is high (send out). The patient will be maintained on sliding scale insulin along with basal insulin. 6. Dyslipidemia. Continue statins. 7. Essential hypertension. Continue antihypertensives. 8. Hypocalcemia. Probably secondary to underlying hypoalbuminemia. 9. Microcytic, hypochromic anemia. Etiology unclear. Iron panel showing iron deficiency. Continue iron supplements. 10. Vitamin D deficiency. Continue supplements. 11. Fluids, electrolytes, and nutrition. Tube feedings. 12. DVT prophylaxis. Subcutaneous heparin. 13. Gastrointestinal prophylaxis. Histamine 2 receptor blockers. 14. Plan. Continue antibiotics. Continue ventilator support. Ventilator weaning as per Pulmonary. Adjust insulin to obtain optimal blood sugar control. Case discussed with Dr. Perez. Critical care time: 35 minutes. Problems: Subjective 24 Hr Interval Summary Free Text/Dictation Remains on ventilator. pO2 low on ABG. FiO2 to be increased. Exam/Review of Systems Vital Signs Vitals Vital Signs Date Time Temp Pulse Resp B/P Pulse Ox O2 Delivery O2 Flow Rate FiO2 12/31/16 08:32 74 12/31/16 07:00 24 127/65 94 Mechanical Ventilator 12/31/16 05:00 50 12/31/16 04:00 99.2 Intake and Output 512/30/16 12/31/16 15:00 23:00 07:00 Intake Total 350.12 ml 1795.30 ml 832.75 ml Output Total 1280 ml 1060 ml 470 ml Balance -929.88 ml 735.30 ml 362.75 ml Exam GENERAL: This is a morbidly obese male lying in bed, orally intubated and mechanically ventilated. HEENT: Head normocephalic and atraumatic. Eyes: Anicteric sclerae. Conjunctivae clear. ENT: Nasal septum is midline. Oral mucosa is dry. NECK: Short with increased neck circumference. RESPIRATORY: Bilaterally diminished breath sounds. On mechanical ventilator. CARDIAC: Regular rate and rhythm. S1, S2 heard. ABDOMEN: Soft, nontender and nondistended. Bowel sounds positive in all 4 quadrants. GENITOURINARY: Deferred. EXTREMITIES: No cyanosis, no clubbing. B/L LE edema. Pedal pulses palpable. Status post left great toe amputation. NEUROLOGIC: The patient is sedated. Results Result Diagram: 12/31/16 0340 12/31/16 0340 Results 24 hrs Laboratory Tests Test 12/30/16 13:12 12/30/16 17:12 12/30/16 20:05 12/30/16 21:05 Bedside Glucose 277 H 251 H 206 267 H Test 12/31/16 01:08 12/31/16 03:40 12/31/16 05:06 12/31/16 07:00 Bedside Glucose 204 214 White Blood Count 10.4 # Red Blood Count 3.48 L Hemoglobin 9.9 L Hematocrit 29.4 L Mean Corpuscular Volume 84.5 Mean Corpuscular Hemoglobin 28.4 L Mean Corpuscular Hemoglobin Concent 33.7 Red Cell Distribution Width 12.9 Platelet Count 189 Mean Platelet Volume 11.8 H Neutrophils % 88.8 H Lymphocytes % 5.6 L Monocytes % 4.4 Eosinophils % 0.2 Basophils % 0.1 Nucleated Red Blood Cells % 0.0 Neutrophils # 9.3 H Lymphocytes # 0.6 L Monocytes # 0.5 Eosinophils # 0.0 Basophils # 0.0 Nucleated Red Blood Cells # 0.0 Sodium Level 141 Potassium Level 3.6 Chloride Level 108 Carbon Dioxide Level 34 H Anion Gap 3 L Blood Urea Nitrogen 64 H Creatinine 1.18 Glucose Level 245 H Calcium Level 7.4 L Phosphorus Level 3.8 Magnesium Level 2.2 Blood Gas Specimen Source Blood arterial Arterial Blood Date Drawn 12/31/2016 7:40:39 AM Arterial Blood pH (Temp corrected) 7.534 H Arterial Blood pCO2 (Temp correct) 39.6 Arterial Blood pO2 (Temp corrected) 54.9 *L Arterial Blood HCO3 32.6 H Arterial Blood Base Excess 9.3 H Arterial Blood Oxygen Saturation 89.4 L Leobardo Test ACCEPTAB Arterial Blood Gas Puncture Site Right Radial Arterial Blood Carboxyhemoglobin 0.3 Arterial Blood Methemoglobin 0.5 Blood Gas A-a O2 Differential 257.1 H Oxyhemoglobin Percent 88.7 L Total Hemoglobin 10.7 L Blood Gas Temperature 37.0 Blood Gas Respiration Rate 24.0 Blood Gas Actual Respiration Rate 24 Blood Gas Modality VENT - AC FiO2 50.0 Blood Gas Tidal Volume 500.0 Blood Gas Low PEEP Setting 10.0 Blood Gas Critical Value Read Back A MARI Blood Gas Notified Whom DT Blood Gas Notified Time 12/31/2016 8:07:09 AM Medications Medications Current Medications Ondansetron HCl (Zofran Inj) 4 mg Q6H PRN IV NAUSEA AND/OR VOMITING; Start at 13:00 Acetaminophen (Tylenol Tab) 650 mg Q6H PRN PO PAIN LEVEL 1-3 OR FEVER Last administered on 12/29/16 06:02; Admin Dose 650 MG; Start 12/15/16 at 13:00 Acetaminophen/ Hydrocodone Bitart ([place] (5/325)) 1 tab Q6H PRN PO PAIN LEVEL 4 -6 Last administered on 12/15/16 22:08; Admin Dose 1 TAB; Start 12/15/16 at 13: 00 Morphine Sulfate (morphine) 2 mg Q4H PRN IV PAIN LEVEL 7-10 Last administered on 12/25/16 03:03; Admin Dose 2 MG; Start 12/15/16 at 13:00 Magnesium Hydroxide (Milk Of Mag) 30 ml DAILY PRN PO CONSTIPATION; Start at 13:00 Bisacodyl (Dulcolax) 5 mg DAILY PRN PO CONSTIPATION; Start 12/15/16 at 13:00 Famotidine (Pepcid) 20 mg Q12 PO Last administered on 12/31/16 08:35; Admin Dose 20 MG; Start 12/15/16 at 21:00 Hydralazine HCl (Apresoline) 10 mg Q6H PRN IV SBP>160 Last administered on 04:53; Admin Dose 10 MG; Start 12/15/16 at 13:00 Aspirin (Aspirin) 325 mg DAILY PO Last administered on 12/31/16 08:35; Admin Dose 325 MG; Start 12/16/16 at 09:00 Atorvastatin Calcium (Lipitor) 80 mg QHS PO Last administered on 12/30/16 21:03 ; Admin Dose 80 MG; Start 12/15/16 at 21:00 Heparin Sodium (Porcine) (Heparin (5000 Units/0.5 ml)) 5,000 unit BID SC Last administered on 12/31/16 08:37; Admin Dose 5,000 UNIT; Start 12/15/16 at 21:00 Miscellaneous Information 1 ea NOTE XX ; Start 12/15/16 at 14:00 Glucose (Glutose) 15 gm Q15M PRN PO DECREASED GLUCOSE; Start 12/15/16 at 14:00 Glucose (Glutose) 22.5 gm Q15M PRN PO DECREASED GLUCOSE; Start 12/15/16 at 14: 00 Glucagon (Glucagen) 1 mg Q15M PRN IM DECREASED GLUCOSE; Start 12/15/16 at 14:00 Glucose (Glutose) 15 gm Q15M PRN BUCCAL DECREASED GLUCOSE; Start 12/15/16 at 14 :00 Cholecalciferol 1000 unit 1,000 unit DAILY PO Last administered on 12/31/16 08: 36; Admin Dose 1,000 UNIT; Start 12/16/16 at 09:00 Fentanyl (Sublimaze) 100 ml @ 2.5 mls/hr TITRATE IV Last administered on 06:48; Admin Dose 10 MLS/HR; Start 12/18/16 at 03:30 Dextrose (D50w Syringe) 25 ml Q15M PRN IV Till BS 80 mg/dL or above x2; Start 12/18/16 at 14:00 Dextrose (D50w Syringe) 50 ml Q15M PRN IV Till BS 80 mg/dL or above x2; Start 12/18/16 at 14:00 IV Flush 10 ml 10 ml PRN PRN IV IV PROTOCOL; Start 12/18/16 at 17:00 Norepinephrine/ Dextrose (Levophed/D5W) 250 ml @ 0.46 mls/hr TITRATE IV ; Start 12/19/16 at 09:30 Amlodipine Besylate 5 mg 5 mg DAILY PO Last administered on 12/31/16 08:36; Admin Dose 5 MG; Start 12/21/16 at 09:00 Midazolam HCl 50 ml @ 1 mls/hr TITRATE IV Last administered on 12/31/16 04:01; Admin Dose 10 MLS/HR; Start 12/20/16 at 14:00 Propofol (Diprivan) 100 ml @ 3.255 mls/ hr Q12H IV Last administered on 06:50; Admin Dose 19.53 MLS/HR; Start 12/20/16 at 20:30 Hydralazine HCl (Apresoline) 10 mg Q4H PRN IV sbp > 160 Last administered on 22:35; Admin Dose 10 MG; Start 12/22/16 at 06:30 Lorazepam (Ativan) 1 mg Q1H PRN IV agitation Last administered on 12/29/16 16: 35; Admin Dose 1 MG; Start 12/25/16 at 03:30 Carvedilol (Coreg) 6.25 mg BID PO Last administered on 12/31/16 08:36; Admin Dose 6.25 MG; Start 12/25/16 at 21:00 Methylprednisolone Sodium Succinate (Solu-Medrol) 60 mg Q8 IV Last administered on 12/31/16 05:54; Admin Dose 60 MG; Start 12/26/16 at 10:00 Hydralazine HCl 75 mg 75 mg Q8 PO Last administered on 12/31/16 05:56; Admin Dose 75 MG; Start 12/27/16 at 22:00 Meropenem 100 ml @ 200 mls/hr Q12 IVPB Last administered on 12/31/16 08:36; Admin Dose 200 MLS/HR; Start 12/28/16 at 13:00 Caspofungin 50 mg/ Sodium Chloride 250 ml @ 250 mls/hr Q24H IVPB Last administered on 12/30/16 14:18; Admin Dose 250 MLS/HR; Start 12/29/16 at 12:00 Vancomycin HCl/ Sodium Chloride (Vancocin/NS) 500 ml @ 125 mls/hr Q24H IVPB Last administered on 12/30/16 17:05; Admin Dose 125 MLS/HR; Start 12/29/16 at 15: 00 Insulin Aspart (Novolog Insulin Pen) NOVOLOG *MODERATE* ALGORITHM Q4 SC Last administered on 12/31/16 05:12; Admin Dose 4 UNIT; Start 12/29/16 at 09:30 Spironolactone (Aldactone) 25 mg DAILY NGT Last administered on 12/31/16 08:36 ; Admin Dose 25 MG; Start 12/30/16 at 09:00 Insulin Glargine (Lantus) 50 unit DAILY@20 SC Last administered on 12/30/16 20: 07; Admin Dose 50 UNIT; Start 12/30/16 at 20:00 Miscellaneous Information (*Rx Drug Level Order Reminder*) VANCOMYCIN TROUGH 12/31 AT 1400 ONCE ONCE XX ; Start 12/31/16 at 14:00; Stop 12/31/16 at 14:01 GEORGI CORBETT NP December 31, 2016 08:44
--- NOTE | 2016-12-31 08:48 | PN ---
Date/Time of Note Date/Time of Note DATE: 12/31/16 TIME: 08:47 Exam/Review of Systems Vital Signs Vitals Results Result Diagram: 12/31/1633912/31/16339 Results 24 hrs L Medications Medications GEORGI CORBETT NP December 31, 2016 08:48 5. Type 2 diabetes mellitus. Uncontrolled. A1C is high (send out). The patient will be maintained on sliding scale insulin along with basal insulin. 6. Dyslipidemia. Continue statins. 7. Essential hypertension. Continue antihypertensives. 8. Hypocalcemia. Probably secondary to underlying hypoalbuminemia. 9. Microcytic, hypochromic anemia. Etiology unclear. Iron panel showing iron deficiency. Continue iron supplements. 10. Vitamin D deficiency. Continue supplements. 11. Fluids, electrolytes, and nutrition. Tube feedings. 12. DVT prophylaxis. Subcutaneous heparin. 13. Gastrointestinal prophylaxis. Histamine 2 receptor blockers. 14. Plan. Continue antibiotics. Continue ventilator support. Ventilator weaning as per Pulmonary. Adjust insulin to obtain optimal blood sugar control. Case discussed with Dr. Perez. Critical care time: 35 minutes. Problems: Subjective 24 Hr Interval Summary Free Text/Dictation The patient was extubated on 12/30/2016. However the patient had to be reintubated within a few minutes because of respiratory distress. Exam/Review of Systems Vital Signs Vitals Vital Signs Date Time Temp Pulse Resp B/P Pulse Ox O2 Delivery O2 Flow Rate FiO2 12/31/16 08:32 74 12/31/16 07:00 24 127/65 94 Mechanical Ventilator 12/31/16 05:00 50 12/31/16 04:00 99.2 Intake and Output 12/30/16 12/30/16 12/31/16 15:00 23:00 07:00 Intake Total 350.12 ml 1795.30 ml 832.75 ml Output Total 1280 ml 1060 ml 470 ml Balance -929.88 ml 735.30 ml 362.75 ml Results Result Diagram: 12/31/16 03412/31/16 034 Results 24 hrs Laboratory Tests Test 12/30/16 13:12 12/30/16 17:12 12/30/16 20:05 12/30/16 21:05 Bedside Glucose 277 H 251 H 206 267 H Test 12/31/16 01:08 12/31/16 03:40 12/31/16 05:06 12/31/16 07:00 Bedside Glucose 204 214 White Blood Count 10.4 # Red Blood Count 3.48 L Hemoglobin 9.9 L Hematocrit 29.4 L Mean Corpuscular Volume 84.5 Mean Corpuscular Hemoglobin 28.4 L Mean Corpuscular Hemoglobin Concent 33.7 Red Cell Distribution Width 12.9 Platelet Count 189 Mean Platelet Volume 11.8 H Neutrophils % 88.8 H Lymphocytes % 5.6 L Monocytes % 4.4 Eosinophils % 0.2 Basophils % 0.1 Nucleated Red Blood Cells % 0.0 Neutrophils # 9.3 H Lymphocytes # 0.6 L Monocytes # 0.5 Eosinophils # 0.0 Basophils # 0.0 Nucleated Red Blood Cells # 0.0 Sodium Level 141 Potassium Level 3.6 Chloride Level 108 Carbon Dioxide Level 34 H Anion Gap 3 L Blood Urea Nitrogen 64 H Creatinine 1.18 Glucose Level 245 H Calcium Level 7.4 L Phosphorus Level 3.8 Magnesium Level 2.2 Blood Gas Specimen Source Blood arterial Arterial Blood Date Drawn 12/31/2016 7:40:39 AM Arterial Blood pH (Temp corrected) 7.534 H Arterial Blood pCO2 (Temp correct) 39.6 Arterial Blood pO2 (Temp corrected) 54.9 *L Arterial Blood HCO3 32.6 H Arterial Blood Base Excess 9.3 H Arterial Blood Oxygen Saturation 89.4 L Leobardo Test ACCEPTAB Arterial Blood Gas Puncture Site Right Radial Arterial Blood Carboxyhemoglobin 0.3 Arterial Blood Methemoglobin 0.5 Blood Gas A-a O2 Differential 257.1 H Oxyhemoglobin Percent 88.7 L Total Hemoglobin 10.7 L Blood Gas Temperature 37.0 Blood Gas Respiration Rate 24.0 Blood Gas Actual Respiration Rate 24 Blood Gas Modality VENT - AC FiO2 50.0 Blood Gas Tidal Volume 500.0 Blood Gas Low PEEP Setting 10.0 Blood Gas Critical Value Read Back A [facility] Blood Gas Notified Whom DT Blood Gas Notified Time 12/31/2016 8:07:09 AM Medications Medications Current Medications Ondansetron HCl (Zofran Inj) 4 mg Q6H PRN IV NAUSEA AND/OR VOMITING; Start at 13:00 Acetaminophen (Tylenol Tab) 650 mg Q6H PRN PO PAIN LEVEL 1-3 OR FEVER Last administered on 12/29/16t 06:02; Admin Dose 650 MG; Start 12/15/16 at 13:00 Acetaminophen/ Hydrocodone Bitart ([place] (5/325)) 1 tab Q6H PRN PO PAIN LEVEL 4 -6 Last administered on 12/15/16 22:08; Admin Dose 1 TAB; Start 12/15/16 at 13: 00 Morphine Sulfate (morphine) 2 mg Q4H PRN IV PAIN LEVEL 7-10 Last administered on 12/25/16 03:03; Admin Dose 2 MG; Start 12/15/16 at 13:00 Magnesium Hydroxide (Milk Of Mag) 30 ml DAILY PRN PO CONSTIPATION; Start at 13:00 Bisacodyl (Dulcolax) 5 mg DAILY PRN PO CONSTIPATION; Start 12/15/16 at 13:00 Famotidine (Pepcid) 20 mg Q12 PO Last administered on 12/31/16 08:35; Admin Dose 20 MG; Start 12/15/16 at 21:00 Hydralazine HCl (Apresoline) 10 mg Q6H PRN IV SBP>160 Last administered on 04:53; Admin Dose 10 MG; Start 12/15/16 at 13:00 Aspirin (Aspirin) 325 mg DAILY PO Last administered on 12/31/16 08:35; Admin Dose 325 MG; Start 12/16/16 at 09:00 Atorvastatin Calcium (Lipitor) 80 mg QHS PO Last administered on 12/30/16 21:03 ; Admin Dose 80 MG; Start 12/15/16 at 21:00 Heparin Sodium (Porcine) (Heparin (5000 Units/0.5 ml)) 5,000 unit BID SC Last administered on 12/31/16 08:37; Admin Dose 5,000 UNIT; Start 12/15/16 at 21:00 Miscellaneous Information 1 ea NOTE XX ; Start 12/15/16 at 14:00 Glucose (Glutose) 15 gm Q15M PRN PO DECREASED GLUCOSE; Start 12/15/16 at 14:00 Glucose (Glutose) 22.5 gm Q15M PRN PO DECREASED GLUCOSE; Start 12/15/16 at 14: 00 Glucagon (Glucagen) 1 mg Q15M PRN IM DECREASED GLUCOSE; Start 12/15/16 at 14:00 Glucose (Glutose) 15 gm Q15M PRN BUCCAL DECREASED GLUCOSE; Start 12/15/16 at 14 :00 Cholecalciferol 1000 unit 1,000 unit DAILY PO Last administered on 12/31/16 08: 36; Admin Dose 1,000 UNIT; Start 12/16/16 at 09:00 Fentanyl (Sublimaze) 100 ml @ 2.5 mls/hr TITRATE IV Last administered on 06:48; Admin Dose 10 MLS/HR; Start 12/18/16 at 03:30 Dextrose (D50w Syringe) 25 ml Q15M PRN IV Till BS 80 mg/dL or above x2; Start 12/18/16 at 14:00 Dextrose (D50w Syringe) 50 ml Q15M PRN IV Till BS 80 mg/dL or above x2; Start 12/18/16 at 14:00 IV Flush 10 ml 10 ml PRN PRN IV IV PROTOCOL; Start 12/18/16 at 17:00 Norepinephrine/ Dextrose (Levophed/D5W) 250 ml @ 0.46 mls/hr TITRATE IV ; Start 12/19/16 at 09:30 Amlodipine Besylate 5 mg 5 mg DAILY PO Last administered on 12/31/16 08:36; Admin Dose 5 MG; Start 12/21/16 at 09:00 Midazolam HCl 50 ml @ 1 mls/hr TITRATE IV Last administered on 12/31/16 04:01; Admin Dose 10 MLS/HR; Start 12/20/16 at 14:00 Propofol (Diprivan) 100 ml @ 3.255 mls/ hr Q12H IV Last administered on 06:50; Admin Dose 19.53 MLS/HR; Start 12/20/16 at 20:30 Hydralazine HCl (Apresoline) 10 mg Q4H PRN IV sbp > 160 Last administered on 22:35; Admin Dose 10 MG; Start 12/22/16 at 06:30 Lorazepam (Ativan) 1 mg Q1H PRN IV agitation Last administered on 12/29/16 16: 35; Admin Dose 1 MG; Start 12/25/16 at 03:30 Carvedilol (Coreg) 6.25 mg BID PO Last administered on 12/31/16 08:36; Admin Dose 6.25 MG; Start 12/25/16 at 21:00 Methylprednisolone Sodium Succinate (Solu-Medrol) 60 mg Q8 IV Last administered on 12/31/16 05:54; Admin Dose 60 MG; Start 12/26/16 at 10:00 Hydralazine HCl 75 mg 75 mg Q8 PO Last administered on 12/31/16 05:56; Admin Dose 75 MG; Start 12/27/16 at 22:00 Meropenem 100 ml @ 200 mls/hr Q12 IVPB Last administered on 12/31/16 08:36; Admin Dose 200 MLS/HR; Start 12/28/16 at 13:00 Caspofungin 50 mg/ Sodium Chloride 250 ml @ 250 mls/hr Q24H IVPB Last administered on 12/30/16 14:18; Admin Dose 250 MLS/HR; Start 12/29/16 at 12:00 Vancomycin HCl/ Sodium Chloride (Vancocin/NS) 500 ml @ 125 mls/hr Q24H IVPB Last administered on 12/30/16 17:05; Admin Dose 125 MLS/HR; Start 12/29/16 at 15: 00 Insulin Aspart (Novolog Insulin Pen) NOVOLOG *MODERATE* ALGORITHM Q4 SC Last administered on 12/31/16 05:12; Admin Dose 4 UNIT; Start 12/29/16 at 09:30 Spironolactone (Aldactone) 25 mg DAILY NGT Last administered on 12/31/16 08:36 ; Admin Dose 25 MG; Start 12/30/16 at 09:00 Miscellaneous Information (*Rx Drug Level Order Reminder*) VANCOMYCIN TROUGH 12/31 AT 1400 ONCE ONCE XX ; Start 12/31/16 at 14:00; Stop 12/31/16 at 14:01 GEORGI CORBETT NP December 31, 2016 08:48
[2016-12-31] MEDS: CASPOFUNGIN 50 MG in SOD CHLORIDE 0.9% 250 ML IVPB SCH (11:34)
--- NOTE | 2016-12-31 12:47 | CONS ---
Date/Time of Note Date/Time of Note DATE: 12/31/16 TIME: 12:45 Assessment/Plan Assessment/Plan Additional Assessment/Plan 1. Positive troponin, assess significance.-no sig uptrend/likely demand event in settng fevers/tachy/resp distress - NO CP, no active ischemia - STABLE 2. Abnormal electrocardiogram with ST depressions with tachycardia and positive troponin, likely indicative of coronary artery disease.-improved ecg findings with improved HR - med rx for - MED RX for now 3. Hypertension, uncontrolled mildly still - BP well Rx now 4. Dyslipidemia. 5. Diabetes mellitus - on therapy, keep euglycemic 6. Fevers to 104 documented here in the hospital.-ongoing low grade - con't anti-bx - NOW BETTER 7. Renal failure.-acute on chronic/ ? secondary to vasculitic syndrome 8. Lower extremity edema, assess for congestive heart failure/CHF-diastolic acute on chronic 9. Nausea and vomiting. 10. Chest pain with cough 11.Resp failure s/p intubation - con't resp Rx. 12. Bradycardia-to 40's.Now improved and tolerating BB Consultation Date/Type/Reason Admit Date/Time Dec 15, 2016 at 11:20 Type of Consultation: ID Referring Provider: LEXII REED 24 HR Interval Summary Free Text/Dictation NO acute events - BP stable - in good fluid status - will monitor clinically ROS: No fever, no chills, no nausea, no vomiting, no diarrhea/constipation No recent weight changes No chest pain, no PND, no orthopnea No dizziness, blurred vision No thirst, no heat or cold intolerance (per nurse) Exam/Review of Systems Vital Signs Vitals Vital Signs Date Time Temp Pulse Resp B/P Pulse Ox O2 Delivery O2 Flow Rate FiO2 12/31/16 12:00 99.0 67 24 126/66 100 Mechanical Ventilator 12/31/16 11:30 70 Intake and Output 12/30/16 12/30/16 12/31/16 15:00 23:00 07:00 Intake Total 350.12 ml 1795.30 ml 832.75 ml Output Total 1280 ml 1060 ml 470 ml Balance -929.88 ml 735.30 ml 362.75 ml Exam General: WN/WD/NAD, AOx 0 HEENT: Unicetric/atraumatic/EOMI (does not follow commands) NECK: JVD elevated, no thyromegaly, intubated Lymph: no lymphadenopathy HEART: regular with no S3, II/ systolic murmur at apex LUNGS: Coarse sounds ABD: soft, NT, ND, +BS : Intact Neuro: non focal SKIN: chronic changes EXT: trace edema Results Result Diagram: 12/31/16 0340 12/31/16 0340 Results 24 hrs Laboratory Tests Test 12/30/16 13:12 12/30/16 17:12 12/30/16 20:05 12/30/16 21:05 Bedside Glucose 277 H 251 H 206 267 H Test 12/31/16 01:08 12/31/16 03:40 12/31/16 05:06 12/31/16 07:00 Bedside Glucose 204 214 White Blood Count 10.4 # Red Blood Count 3.48 L Hemoglobin 9.9 L Hematocrit 29.4 L Mean Corpuscular Volume 84.5 Mean Corpuscular Hemoglobin 28.4 L Mean Corpuscular Hemoglobin Concent 33.7 Red Cell Distribution Width 12.9 Platelet Count 189 Mean Platelet Volume 11.8 H Neutrophils % 88.8 H Lymphocytes % 5.6 L Monocytes % 4.4 Eosinophils % 0.2 Basophils % 0.1 Nucleated Red Blood Cells % 0.0 Neutrophils # 9.3 H Lymphocytes # 0.6 L Monocytes # 0.5 Eosinophils # 0.0 Basophils # 0.0 Nucleated Red Blood Cells # 0.0 Sodium Level 141 Potassium Level 3.6 Chloride Level 108 Carbon Dioxide Level 34 H Anion Gap 3 L Blood Urea Nitrogen 64 H Creatinine 1.18 Glucose Level 245 H Calcium Level 7.4 L Phosphorus Level 3.8 Magnesium Level 2.2 Blood Gas Specimen Source Blood arterial Arterial Blood Date Drawn 12/31/2016 7:40:39 AM Arterial Blood pH (Temp corrected) 7.534 H Arterial Blood pCO2 (Temp correct) 39.6 Arterial Blood pO2 (Temp corrected) 54.9 *L Arterial Blood HCO3 32.6 H Arterial Blood Base Excess 9.3 H Arterial Blood Oxygen Saturation 89.4 L Leobardo Test ACCEPTAB Arterial Blood Gas Puncture Site Right Radial Arterial Blood Carboxyhemoglobin 0.3 Arterial Blood Methemoglobin 0.5 Blood Gas A-a O2 Differential 257.1 H Oxyhemoglobin Percent 88.7 L Total Hemoglobin 10.7 L Blood Gas Temperature 37.0 Blood Gas Respiration Rate 24.0 Blood Gas Actual Respiration Rate 24 Blood Gas Modality VENT - AC FiO2 50.0 Blood Gas Tidal Volume 500.0 Blood Gas Low PEEP Setting 10.0 Blood Gas Critical Value Read Back A JACEY Blood Gas Notified Whom DT Blood Gas Notified Time 12/31/2016 8:07:09 AM Test 12/31/16 09:28 Bedside Glucose 254 H Medications Medications Current Medications Ondansetron HCl (Zofran Inj) 4 mg Q6H PRN IV NAUSEA AND/OR VOMITING; Start at 13:00 Acetaminophen (Tylenol Tab) 650 mg Q6H PRN PO PAIN LEVEL 1-3 OR FEVER Last administered on 12/29/16 06:02; Admin Dose 650 MG; Start 12/15/16 at 13:00 Acetaminophen/ Hydrocodone Bitart ([place] (5/325)) 1 tab Q6H PRN PO PAIN LEVEL 4 -6 Last administered on 12/15/16 22:08; Admin Dose 1 TAB; Start 12/15/16 at 13: 00 Morphine Sulfate (morphine) 2 mg Q4H PRN IV PAIN LEVEL 7-10 Last administered on 12/25/16 03:03; Admin Dose 2 MG; Start 12/15/16 at 13:00 Magnesium Hydroxide (Milk Of Mag) 30 ml DAILY PRN PO CONSTIPATION; Start at 13:00 Bisacodyl (Dulcolax) 5 mg DAILY PRN PO CONSTIPATION; Start 12/15/16 at 13:00 Famotidine (Pepcid) 20 mg Q12 PO Last administered on 12/31/16 08:35; Admin Dose 20 MG; Start 12/15/16 at 21:00 Hydralazine HCl (Apresoline) 10 mg Q6H PRN IV SBP>160 Last administered on 04:53; Admin Dose 10 MG; Start 12/15/16 at 13:00 Aspirin (Aspirin) 325 mg DAILY PO Last administered on 12/31/16 08:35; Admin Dose 325 MG; Start 12/16/16 at 09:00 Atorvastatin Calcium (Lipitor) 80 mg QHS PO Last administered on 12/30/16 21:03 ; Admin Dose 80 MG; Start 12/15/16 at 21:00 Heparin Sodium (Porcine) (Heparin (5000 Units/0.5 ml)) 5,000 unit BID SC Last administered on 12/31/16 08:37; Admin Dose 5,000 UNIT; Start 12/15/16 at 21:00 Miscellaneous Information 1 ea NOTE XX ; Start 12/15/16 at 14:00 Glucose (Glutose) 15 gm Q15M PRN PO DECREASED GLUCOSE; Start 12/15/16 at 14:00 Glucose (Glutose) 22.5 gm Q15M PRN PO DECREASED GLUCOSE; Start 12/15/16 at 14: 00 Glucagon (Glucagen) 1 mg Q15M PRN IM DECREASED GLUCOSE; Start 12/15/16 at 14:00 Glucose (Glutose) 15 gm Q15M PRN BUCCAL DECREASED GLUCOSE; Start 12/15/16 at 14 :00 Cholecalciferol 1000 unit 1,000 unit DAILY PO Last administered on 12/31/16 08: 36; Admin Dose 1,000 UNIT; Start 12/16/16 at 09:00 Fentanyl (Sublimaze) 100 ml @ 2.5 mls/hr TITRATE IV Last administered on 06:48; Admin Dose 10 MLS/HR; Start 12/18/16 at 03:30 Dextrose (D50w Syringe) 25 ml Q15M PRN IV Till BS 80 mg/dL or above x2; Start 12/18/16 at 14:00 Dextrose (D50w Syringe) 50 ml Q15M PRN IV Till BS 80 mg/dL or above x2; Start 12/18/16 at 14:00 IV Flush 10 ml 10 ml PRN PRN IV IV PROTOCOL; Start 12/18/16 at 17:00 Norepinephrine/ Dextrose (Levophed/D5W) 250 ml @ 0.46 mls/hr TITRATE IV ; Start 12/19/16 at 09:30 Amlodipine Besylate 5 mg 5 mg DAILY PO Last administered on 12/31/16 08:36; Admin Dose 5 MG; Start 12/21/16 at 09:00 Midazolam HCl 50 ml @ 1 mls/hr TITRATE IV Last administered on 12/31/16 09:35; Admin Dose 10 MLS/HR; Start 12/20/16 at 14:00 Propofol (Diprivan) 100 ml @ 3.255 mls/ hr Q12H IV Last administered on 11:33; Admin Dose 26.04 MLS/HR; Start 12/20/16 at 20:30 Hydralazine HCl (Apresoline) 10 mg Q4H PRN IV sbp > 160 Last administered on 22:35; Admin Dose 10 MG; Start 12/22/16 at 06:30 Lorazepam (Ativan) 1 mg Q1H PRN IV agitation Last administered on 12/29/16 16: 35; Admin Dose 1 MG; Start 12/25/16 at 03:30 Carvedilol (Coreg) 6.25 mg BID PO Last administered on 12/31/16 08:36; Admin Dose 6.25 MG; Start 12/25/16 at 21:00 Methylprednisolone Sodium Succinate (Solu-Medrol) 60 mg Q8 IV Last administered on 12/31/16 05:54; Admin Dose 60 MG; Start 12/26/16 at 10:00 Hydralazine HCl 75 mg 75 mg Q8 PO Last administered on 12/31/16 05:56; Admin Dose 75 MG; Start 12/27/16 at 22:00 Meropenem 100 ml @ 200 mls/hr Q12 IVPB Last administered on 12/31/16 08:36; Admin Dose 200 MLS/HR; Start 12/28/16 at 13:00 Caspofungin 50 mg/ Sodium Chloride 250 ml @ 250 mls/hr Q24H IVPB Last administered on 12/31/16 11:34; Admin Dose 250 MLS/HR; Start 12/29/16 at 12:00 Vancomycin HCl/ Sodium Chloride (Vancocin/NS) 500 ml @ 125 mls/hr Q24H IVPB Last administered on 12/30/16 17:05; Admin Dose 125 MLS/HR; Start 12/29/16 at 15: 00 Insulin Aspart (Novolog Insulin Pen) NOVOLOG *MODERATE* ALGORITHM Q4 SC Last administered on 12/31/16 09:30; Admin Dose 6 UNIT; Start 12/29/16 at 09:30 Spironolactone (Aldactone) 25 mg DAILY NGT Last administered on 12/31/16 08:36 ; Admin Dose 25 MG; Start 12/30/16 at 09:00 Miscellaneous Information (*Rx Drug Level Order Reminder*) VANCOMYCIN TROUGH 5/ 7 AT 1400 ONCE ONCE XX ; Start 12/31/16 at 14:00; Stop 12/31/16 at 14:01 Insulin Glargine (Lantus) 52 unit DAILY@20 SC ; Start 12/31/16 at 20:00 DELIA BILLY MD December 31, 2016 12:47
--- NOTE | 2016-12-31 13:26 | CONS ---
Date/Time of Note Date/Time of Note DATE: 12/31/16 TIME: 13:25 Consult Date/Type/Reason Admit Date/Time Dec 15, 2016 at 11:20 Type of Consultation: pulmonary ICU Ordering Provider: LEXII REED Subjective Patient remains intubated on mechanical ventilation still has significant hypoxemia requiring 70% FiO2 and PEEP of 10 Nasogastric tube feeding as tolerated Objective Vital Signs Date Time Temp Pulse Resp B/P Pulse Ox O2 Delivery O2 Flow Rate FiO2 12/31/16 12:00 99.0 67 24 126/66 100 Mechanical Ventilator 12/31/16 11:30 70 Intake and Output 12/30/16 12/30/16 12/31/16 15:00 23:00 07:00 Intake Total 350.12 ml 1795.30 ml 832.75 ml Output Total 1280 ml 1060 ml 470 ml Balance -929.88 ml 735.30 ml 362.75 ml Exam PHYSICAL EXAMINATION GENERAL: Young gentleman intubated sedated on mechanical ventilation VITAL SIGNS: see below. HEENT: Pupils equal, round, and reactive to light. CARDIAC: S1, S2, no added sounds or murmurs CHEST: Diminished air entry bilaterally. ABDOMEN: Mildly distended. Bowel sounds present. EXTREMITIES: No cyanosis, clubbing edema +1 NEUROLOGIC: Unable to assess Results/Medications Result Diagram: 12/31/16 0340 12/31/16 0340 Results 24 hrs Laboratory Tests Test 12/30/16 17:12 12/30/16 20:05 12/30/16 21:05 12/31/16 01:08 Bedside Glucose 251 H 206 267 H 204 Test 12/31/16 03:40 12/31/16 05:06 12/31/16 07:00 12/31/16 09:28 White Blood Count 10.4 # Red Blood Count 3.48 L Hemoglobin 9.9 L Hematocrit 29.4 L Mean Corpuscular Volume 84.5 Mean Corpuscular Hemoglobin 28.4 L Mean Corpuscular Hemoglobin Concent 33.7 Red Cell Distribution Width 12.9 Platelet Count 189 Mean Platelet Volume 11.8 H Neutrophils % 88.8 H Lymphocytes % 5.6 L Monocytes % 4.4 Eosinophils % 0.2 Basophils % 0.1 Nucleated Red Blood Cells % 0.0 Neutrophils # 9.3 H Lymphocytes # 0.6 L Monocytes # 0.5 Eosinophils # 0.0 Basophils # 0.0 Nucleated Red Blood Cells # 0.0 Sodium Level 141 Potassium Level 3.6 Chloride Level 108 Carbon Dioxide Level 34 H Anion Gap 3 L Blood Urea Nitrogen 64 H Creatinine 1.18 Glucose Level 245 H Calcium Level 7.4 L Phosphorus Level 3.8 Magnesium Level 2.2 Bedside Glucose 214 254 H Blood Gas Specimen Source Blood arterial Arterial Blood Date Drawn 12/31/2016 7:40:39 AM Arterial Blood pH (Temp corrected) 7.534 H Arterial Blood pCO2 (Temp correct) 39.6 Arterial Blood pO2 (Temp corrected) 54.9 *L Arterial Blood HCO3 32.6 H Arterial Blood Base Excess 9.3 H Arterial Blood Oxygen Saturation 89.4 L Leobardo Test ACCEPTAB Arterial Blood Gas Puncture Site Right Radial Arterial Blood Carboxyhemoglobin 0.3 Arterial Blood Methemoglobin 0.5 Blood Gas A-a O2 Differential 257.1 H Oxyhemoglobin Percent 88.7 L Total Hemoglobin 10.7 L Blood Gas Temperature 37.0 Blood Gas Respiration Rate 24.0 Blood Gas Actual Respiration Rate 24 Blood Gas Modality VENT - AC FiO2 50.0 Blood Gas Tidal Volume 500.0 Blood Gas Low PEEP Setting 10.0 Blood Gas Critical Value Read Back A [facility] Blood Gas Notified Whom DT Blood Gas Notified Time 12/31/2016 8:07:09 AM Medications Current Medications Ondansetron HCl (Zofran Inj) 4 mg Q6H PRN IV NAUSEA AND/OR VOMITING; Start at 13:00 Acetaminophen (Tylenol Tab) 650 mg Q6H PRN PO PAIN LEVEL 1-3 OR FEVER Last administered on 12/29/16 06:02; Admin Dose 650 MG; Start 12/15/16 at 13:00 Acetaminophen/ Hydrocodone Bitart ([place] (5/325)) 1 tab Q6H PRN PO PAIN LEVEL 4 -6 Last administered on 12/15/16 22:08; Admin Dose 1 TAB; Start 12/15/16 at 13: 00 Morphine Sulfate (morphine) 2 mg Q4H PRN IV PAIN LEVEL 7-10 Last administered on 12/25/16 03:03; Admin Dose 2 MG; Start 12/15/16 at 13:00 Magnesium Hydroxide (Milk Of Mag) 30 ml DAILY PRN PO CONSTIPATION; Start at 13:00 Bisacodyl (Dulcolax) 5 mg DAILY PRN PO CONSTIPATION; Start 12/15/16 at 13:00 Famotidine (Pepcid) 20 mg Q12 PO Last administered on 12/31/16 08:35; Admin Dose 20 MG; Start 12/15/16 at 21:00 Hydralazine HCl (Apresoline) 10 mg Q6H PRN IV SBP>160 Last administered on 04:53; Admin Dose 10 MG; Start 12/15/16 at 13:00 Aspirin (Aspirin) 325 mg DAILY PO Last administered on 12/31/16 08:35; Admin Dose 325 MG; Start 12/16/16 at 09:00 Atorvastatin Calcium (Lipitor) 80 mg QHS PO Last administered on 12/30/16 21:03 ; Admin Dose 80 MG; Start 12/15/16 at 21:00 Heparin Sodium (Porcine) (Heparin (5000 Units/0.5 ml)) 5,000 unit BID SC Last administered on 12/31/16 08:37; Admin Dose 5,000 UNIT; Start 12/15/16 at 21:00 Miscellaneous Information 1 ea NOTE XX ; Start 12/15/16 at 14:00 Glucose (Glutose) 15 gm Q15M PRN PO DECREASED GLUCOSE; Start 12/15/16 at 14:00 Glucose (Glutose) 22.5 gm Q15M PRN PO DECREASED GLUCOSE; Start 12/15/16 at 14: 00 Glucagon (Glucagen) 1 mg Q15M PRN IM DECREASED GLUCOSE; Start 12/15/16 at 14:00 Glucose (Glutose) 15 gm Q15M PRN BUCCAL DECREASED GLUCOSE; Start 12/15/16 at 14 :00 Cholecalciferol 1000 unit 1,000 unit DAILY PO Last administered on 12/31/16 08: 36; Admin Dose 1,000 UNIT; Start 12/16/16 at 09:00 Fentanyl (Sublimaze) 100 ml @ 2.5 mls/hr TITRATE IV Last administered on 06:48; Admin Dose 10 MLS/HR; Start 12/18/16 at 03:30 Dextrose (D50w Syringe) 25 ml Q15M PRN IV Till BS 80 mg/dL or above x2; Start 12/18/16 at 14:00 Dextrose (D50w Syringe) 50 ml Q15M PRN IV Till BS 80 mg/dL or above x2; Start 12/18/16 at 14:00 IV Flush 10 ml 10 ml PRN PRN IV IV PROTOCOL; Start 12/18/16 at 17:00 Norepinephrine/ Dextrose (Levophed/D5W) 250 ml @ 0.46 mls/hr TITRATE IV ; Start 12/19/16 at 09:30 Amlodipine Besylate 5 mg 5 mg DAILY PO Last administered on 12/31/16 08:36; Admin Dose 5 MG; Start 12/21/16 at 09:00 Midazolam HCl 50 ml @ 1 mls/hr TITRATE IV Last administered on 12/31/16 09:35; Admin Dose 10 MLS/HR; Start 12/20/16 at 14:00 Propofol (Diprivan) 100 ml @ 3.255 mls/ hr Q12H IV Last administered on 11:33; Admin Dose 26.04 MLS/HR; Start 12/20/16 at 20:30 Hydralazine HCl (Apresoline) 10 mg Q4H PRN IV sbp > 160 Last administered on 22:35; Admin Dose 10 MG; Start 12/22/16 at 06:30 Lorazepam (Ativan) 1 mg Q1H PRN IV agitation Last administered on 12/29/16 16: 35; Admin Dose 1 MG; Start 12/25/16 at 03:30 Carvedilol (Coreg) 6.25 mg BID PO Last administered on 12/31/16 08:36; Admin Dose 6.25 MG; Start 12/25/16 at 21:00 Methylprednisolone Sodium Succinate (Solu-Medrol) 60 mg Q8 IV Last administered on 12/31/16 05:54; Admin Dose 60 MG; Start 12/26/16 at 10:00 Hydralazine HCl 75 mg 75 mg Q8 PO Last administered on 12/31/16 05:56; Admin Dose 75 MG; Start 12/27/16 at 22:00 Meropenem 100 ml @ 200 mls/hr Q12 IVPB Last administered on 12/31/16 08:36; Admin Dose 200 MLS/HR; Start 12/28/16 at 13:00 Caspofungin 50 mg/ Sodium Chloride 250 ml @ 250 mls/hr Q24H IVPB Last administered on 12/31/16 11:34; Admin Dose 250 MLS/HR; Start 12/29/16 at 12:00 Vancomycin HCl/ Sodium Chloride (Vancocin/NS) 500 ml @ 125 mls/hr Q24H IVPB Last administered on 12/30/16 17:05; Admin Dose 125 MLS/HR; Start 12/29/16 at 15: 00 Insulin Aspart (Novolog Insulin Pen) NOVOLOG *MODERATE* ALGORITHM Q4 SC Last administered on 12/31/16 09:30; Admin Dose 6 UNIT; Start 12/29/16 at 09:30 Spironolactone (Aldactone) 25 mg DAILY NGT Last administered on 12/31/16 08:36 ; Admin Dose 25 MG; Start 12/30/16 at 09:00 Miscellaneous Information (*Rx Drug Level Order Reminder*) VANCOMYCIN TROUGH 12/31 AT 1400 ONCE ONCE XX ; Start 12/31/16 at 14:00; Stop 12/31/16 at 14:01 Insulin Glargine (Lantus) 52 unit DAILY@20 SC ; Start 12/31/16 at 20:00 Assessment/Plan Chief Complaint/Hosp Course Assessment 1. Acute hypoxemic respiratory failure possible healthcare associated pneumonia with underlying pulmonary edema 2. Workup for vasculitis will decrease steroids. Appreciate rheumatology recommendations. 3. Diabetes mellitus 4. Renal insufficiency possible ATN injury worsening pulmonary edema on chest x- ray Plan 1. Continue mechanical ventilation increase PEEP to 10 2. Decrease FiO2 as tolerated 3. Continue low-dose steroids 4. Continue broad-spectrum antibiotics 5. Diuretics as tolerated Disposition Continue ICU care Discussed with at bedside Patient will likely need tracheostomy given prolonged mechanical ventilation, we 'll discuss with family tomorrow and schedule. Problems: VERO SOTO MD, [facility] December 31, 2016 13:26
--- NOTE | 2016-12-31 13:35 | RADRPT ---
PROCEDURE: XR Chest. CLINICAL INDICATION: Shortness of breath. TECHNIQUE: Single frontal view. COMPARISON: 12/30/2016. FINDINGS: Endotracheal tube, nasogastric tube, and left arm PICC line are in satisfactory position. There is m ild atelectasis at the lung bases and mild pulmonary edema, unchanged. The heart size is normal. There is no pleural effusion. There is no pneumothorax. IMPRESSION: 1. No change from 12/30/2016. RPTAT: QQ .Chon Caracmo MD, MD Date Time Electronically viewed and signed by .Chon Carcamo MD, MD on 12/31/2016 13:35 .R/
--- NOTE | 2016-12-31 15:45 | CONS ---
Date/Time of Note Date/Time of Note DATE: 12/31/16 TIME: 15:44 Assessment/Plan Assessment/Plan Chief Complaint/Hosp Course SUBJECTIVE: No events overnight. The patient remains intubated, on high PEEP with increased oxygen requirements MICROBIOLOGY: Blood culture on 12/27/2016 remain negative. Urine culture grew Estrellita albicans. Sputum culture growing coagulase-negative staph and Estrellita albicans and Estrellita glabrata. INDWELLINGS: Endotracheal tube, NG tube, Ritchie catheter, PICC line. ANTIMICROBIALS: 1. Vancomycin. 2. Cancidas. 3. Meropenem. PHYSICAL EXAMINATION: GENERAL: This is an obese, well-developed, middle-aged man who is in no distress. HEENT: Head atraumatic, normocephalic. Sclerae anicteric. Buccal mucosa dry. NECK: Supple, trachea midline. CHEST: Rise symmetrical. Breath sounds diminished at the bases. HEART: S1, S2. ABDOMEN: Soft. Bowel tones present. EXTREMITIES: Without cyanosis. Bilateral trace edema. ASSESSMENT: 1. Acute hypoxemic respiratory failure. 2. Multilobular pneumonia. 3. ARDS. 4. Acute renal failure. 5. Persistent leukocytosis, patient is on Solu-Medrol every 8 hours IV. 6. Positive DAISY, significance unclear, no evidence of vasculitis per rheumatology note. 7. Diabetes. 8. Urinary tract infection. PLAN: The patient remains hemodynamically stable. WBC tracing down. Continue current antibiotics. Vent per pulmonary DW staff Problems: Consultation Date/Type/Reason Admit Date/Time Dec 15, 2016 at 11:20 Type of Consultation: ID Referring Provider: LEXII REED Exam/Review of Systems Vital Signs Vitals Vital Signs Date Time Temp Pulse Resp B/P Pulse Ox O2 Delivery O2 Flow Rate FiO2 12/31/16 12:00 99.0 67 24 126/66 100 Mechanical Ventilator 12/31/16 11:30 70 Intake and Output 12/30/16 12/30/16 12/31/16 15:00 23:00 07:00 Intake Total 350.12 ml 1795.30 ml 832.75 ml Output Total 1280 ml 1060 ml 470 ml Balance -929.88 ml 735.30 ml 362.75 ml Results Result Diagram: 12/31/16 0340 12/31/16 0340 Results 24 hrs Laboratory Tests Test 12/30/16 17:12 12/30/16 20:05 12/30/16 21:05 12/31/16 01:08 Bedside Glucose 251 H 206 267 H 204 Test 12/31/16 03:40 12/31/16 05:06 12/31/16 07:00 12/31/16 09:28 White Blood Count 10.4 # Red Blood Count 3.48 L Hemoglobin 9.9 L Hematocrit 29.4 L Mean Corpuscular Volume 84.5 Mean Corpuscular Hemoglobin 28.4 L Mean Corpuscular Hemoglobin Concent 33.7 Red Cell Distribution Width 12.9 Platelet Count 189 Mean Platelet Volume 11.8 H Neutrophils % 88.8 H Lymphocytes % 5.6 L Monocytes % 4.4 Eosinophils % 0.2 Basophils % 0.1 Nucleated Red Blood Cells % 0.0 Neutrophils # 9.3 H Lymphocytes # 0.6 L Monocytes # 0.5 Eosinophils # 0.0 Basophils # 0.0 Nucleated Red Blood Cells # 0.0 Sodium Level 141 Potassium Level 3.6 Chloride Level 108 Carbon Dioxide Level 34 H Anion Gap 3 L Blood Urea Nitrogen 64 H Creatinine 1.18 Glucose Level 245 H Calcium Level 7.4 L Phosphorus Level 3.8 Magnesium Level 2.2 Bedside Glucose 214 254 H Blood Gas Specimen Source Blood arterial Arterial Blood Date Drawn 12/31/2016 7:40:39 AM Arterial Blood pH (Temp corrected) 7.534 H Arterial Blood pCO2 (Temp correct) 39.6 Arterial Blood pO2 (Temp corrected) 54.9 *L Arterial Blood HCO3 32.6 H Arterial Blood Base Excess 9.3 H Arterial Blood Oxygen Saturation 89.4 L Leobardo Test ACCEPTAB Arterial Blood Gas Puncture Site Right Radial Arterial Blood Carboxyhemoglobin 0.3 Arterial Blood Methemoglobin 0.5 Blood Gas A-a O2 Differential 257.1 H Oxyhemoglobin Percent 88.7 L Total Hemoglobin 10.7 L Blood Gas Temperature 37.0 Blood Gas Respiration Rate 24.0 Blood Gas Actual Respiration Rate 24 Blood Gas Modality VENT - AC FiO2 50.0 Blood Gas Tidal Volume 500.0 Blood Gas Low PEEP Setting 10.0 Blood Gas Critical Value Read Back [facility] Blood Gas Notified Whom DT Blood Gas Notified Time 12/31/2016 8:07:09 AM Test 12/31/16 13:24 12/31/16 14:10 Bedside Glucose 221 H Vancomycin Level Trough 14.4 Medications Medications Current Medications Ondansetron HCl (Zofran Inj) 4 mg Q6H PRN IV NAUSEA AND/OR VOMITING; Start at 13:00 Acetaminophen (Tylenol Tab) 650 mg Q6H PRN PO PAIN LEVEL 1-3 OR FEVER Last administered on 12/29/16 06:02; Admin Dose 650 MG; Start 12/15/16 at 13:00 Acetaminophen/ Hydrocodone Bitart ([place] (5/325)) 1 tab Q6H PRN PO PAIN LEVEL 4 -6 Last administered on 12/15/16 22:08; Admin Dose 1 TAB; Start 12/15/16 at 13: 00 Morphine Sulfate (morphine) 2 mg Q4H PRN IV PAIN LEVEL 7-10 Last administered on 12/25/16 03:03; Admin Dose 2 MG; Start 12/15/16 at 13:00 Magnesium Hydroxide (Milk Of Mag) 30 ml DAILY PRN PO CONSTIPATION; Start at 13:00 Bisacodyl (Dulcolax) 5 mg DAILY PRN PO CONSTIPATION; Start 12/15/16 at 13:00 Famotidine (Pepcid) 20 mg Q12 PO Last administered on 12/31/16 08:35; Admin Dose 20 MG; Start 12/15/16 at 21:00 Hydralazine HCl (Apresoline) 10 mg Q6H PRN IV SBP>160 Last administered on 04:53; Admin Dose 10 MG; Start 12/15/16 at 13:00 Aspirin (Aspirin) 325 mg DAILY PO Last administered on 12/31/16 08:35; Admin Dose 325 MG; Start 12/16/16 at 09:00 Atorvastatin Calcium (Lipitor) 80 mg QHS PO Last administered on 12/30/16 21:03 ; Admin Dose 80 MG; Start 12/15/16 at 21:00 Heparin Sodium (Porcine) (Heparin (5000 Units/0.5 ml)) 5,000 unit BID SC Last administered on 12/31/16 08:37; Admin Dose 5,000 UNIT; Start 12/15/16 at 21:00 Miscellaneous Information 1 ea NOTE XX ; Start 12/15/16 at 14:00 Glucose (Glutose) 15 gm Q15M PRN PO DECREASED GLUCOSE; Start 12/15/16 at 14:00 Glucose (Glutose) 22.5 gm Q15M PRN PO DECREASED GLUCOSE; Start 12/15/16 at 14: 00 Glucagon (Glucagen) 1 mg Q15M PRN IM DECREASED GLUCOSE; Start 12/15/16 at 14:00 Glucose (Glutose) 15 gm Q15M PRN BUCCAL DECREASED GLUCOSE; Start 12/15/16 at 14 :00 Cholecalciferol 1000 unit 1,000 unit DAILY PO Last administered on 12/31/16 08: 36; Admin Dose 1,000 UNIT; Start 12/16/16 at 09:00 Fentanyl (Sublimaze) 100 ml @ 2.5 mls/hr TITRATE IV Last administered on 06:48; Admin Dose 10 MLS/HR; Start 12/18/16 at 03:30 Dextrose (D50w Syringe) 25 ml Q15M PRN IV Till BS 80 mg/dL or above x2; Start 12/18/16 at 14:00 Dextrose (D50w Syringe) 50 ml Q15M PRN IV Till BS 80 mg/dL or above x2; Start 12/18/16 at 14:00 IV Flush 10 ml 10 ml PRN PRN IV IV PROTOCOL; Start 12/18/16 at 17:00 Norepinephrine/ Dextrose (Levophed/D5W) 250 ml @ 0.46 mls/hr TITRATE IV ; Start 12/19/16 at 09:30 Amlodipine Besylate 5 mg 5 mg DAILY PO Last administered on 12/31/16 08:36; Admin Dose 5 MG; Start 12/21/16 at 09:00 Midazolam HCl 50 ml @ 1 mls/hr TITRATE IV Last administered on 12/31/16 15:11; Admin Dose 10 MLS/HR; Start 12/20/16 at 14:00 Propofol (Diprivan) 100 ml @ 3.255 mls/ hr Q12H IV Last administered on 15:10; Admin Dose 19.53 MLS/HR; Start 12/20/16 at 20:30 Hydralazine HCl (Apresoline) 10 mg Q4H PRN IV sbp > 160 Last administered on 22:35; Admin Dose 10 MG; Start 12/22/16 at 06:30 Lorazepam (Ativan) 1 mg Q1H PRN IV agitation Last administered on 12/29/16 16: 35; Admin Dose 1 MG; Start 12/25/16 at 03:30 Carvedilol (Coreg) 6.25 mg BID PO Last administered on 12/31/16 08:36; Admin Dose 6.25 MG; Start 12/25/16 at 21:00 Methylprednisolone Sodium Succinate (Solu-Medrol) 60 mg Q8 IV Last administered on 12/31/16 14:12; Admin Dose 60 MG; Start 12/26/16 at 10:00 Hydralazine HCl 75 mg 75 mg Q8 PO Last administered on 12/31/16 14:13; Admin Dose 75 MG; Start 12/27/16 at 22:00 Meropenem 100 ml @ 200 mls/hr Q12 IVPB Last administered on 12/31/16 08:36; Admin Dose 200 MLS/HR; Start 12/28/16 at 13:00 Caspofungin 50 mg/ Sodium Chloride 250 ml @ 250 mls/hr Q24H IVPB Last administered on 12/31/16 11:34; Admin Dose 250 MLS/HR; Start 12/29/16 at 12:00 Vancomycin HCl/ Sodium Chloride (Vancocin/NS) 500 ml @ 125 mls/hr Q24H IVPB Last administered on 12/30/16 17:05; Admin Dose 125 MLS/HR; Start 12/29/16 at 15: 00 Insulin Aspart (Novolog Insulin Pen) NOVOLOG *MODERATE* ALGORITHM Q4 SC Last administered on 12/31/16 13:26; Admin Dose 6 UNIT; Start 12/29/16 at 09:30 Spironolactone (Aldactone) 25 mg DAILY NGT Last administered on 12/31/16 08:36 ; Admin Dose 25 MG; Start 12/30/16 at 09:00 Insulin Glargine (Lantus) 52 unit DAILY@20 SC ; Start 12/31/16 at 20:00 YOLETTE RODRIGUEZ NP December 31, 2016 15:45
[2016-12-31] MEDS: VANCOMYCIN 1.75 GM in NS 500 ML IVPB SCH (17:06)
[2016-12-31] MEDS: ATORVASTATIN 80 MG TAB PO SCH (20:46)
[2016-12-31] MEDS: INSULIN GLARGINE [LANtus] 3 ML PEN SC SCH (20:55)
[2017-01-01] VITALS (58 sets, daily range): BP systolic 119–168; BP diastolic 52–84; PULSE 56–104; RESP 17–25
[2017-01-01] MEDS: PROPOFOL 100 ML IV SCH ×6 (00:38→21:40)
[2017-01-01] MEDS: INSULIN ASPART [NOVOLOG] 3 ML PEN SC SCH ×6 (00:48→20:49)
[2017-01-01] MEDS: LEVALBUTEROL (HFA) 15 GM INHALER INH SCH ×4 (01:08→19:33)
[2017-01-01] MEDS: MIDAZOLAM (DRIP) 50 mg/50 mL 50 ML IV SCH ×5 (02:25→23:16)
[2017-01-01] MEDS: FENTAnyl (DRIP) 1000 mcg/100mL 100 ML IV SCH ×3 (03:08→22:03)
[2017-01-01] MEDS: METHYLPREDNISOLONE 125 MG INJ IV SCH ×2 (05:05→20:45)
[2017-01-01 05:06] LABS: ADD SCAN DIFF NO
[2017-01-01 05:11] LABS: ABNORMAL IP MESSAGE 1; EOSINOPHILS % 0.1 % (0.0-7.0); HEMATOCRIT 30.5 % (42.0-52.0); HEMOGLOBIN 9.9 g/dl (14.0-18.0); LYMPHOCYTES # 0.6 10^3/ul (0.8-2.9); LYMPHOCYTES % 5.9 % (15.0-51.0); MEAN CORPUSCULAR HEMOGLOBIN 27.5 pg (29.0-33.0); MEAN CORPUSCULAR HGB CONC 32.5 g/dl (32.0-37.0); MEAN CORPUSCULAR VOLUME 84.7 fl (82.0-101.0); MEAN PLATELET VOLUME 12.5 fl (7.4-10.4); MONOCYTE # 0.4 10^3/ul (0.3-0.9); NEUTROPHIL # 8.5 10^3/ul (1.6-7.5); NEUTROPHILS % 89.3 % (39.0-77.0); PLATELET COUNT 189 10^3/UL (140-415); RED CELL DISTRIBUTION WIDTH 12.8 % (11.5-14.5); WHITE BLOOD COUNT 9.5 10^3/ul (4.8-10.8)
[2017-01-01 05:24] LABS: POTASSIUM 3.4 mmol/L (3.5-5.1)
[2017-01-01 05:26] LABS: CREATININE 1.21 mg/dl (0.61-1.24)
[2017-01-01 05:27] LABS: CALCIUM 7.4 mg/dl (8.4-10.2); MAGNESIUM 2.2 mg/dl (1.7-2.5); PHOSPHORUS 4.4 mg/dl (2.5-4.9)
--- NOTE | 2017-01-01 07:57 | PN ---
DATE: 01/01/2017 SUBJECTIVE: The patient remains critically ill, on full ventilator support. No other acute events noted. No hemoptysis, hematemesis, or hematochezia. OBJECTIVE: VITAL SIGNS: Blood pressure 146/68, respirations 24, pulse 65, temperature 98.6. I'S AND O'S: The patient had 3.9 liters in with 1.9 liters out. HEENT: Head is normocephalic. NECK: Supple. HEART: Regular rate. LUNGS: Show diminished breath sounds at the base. ABDOMEN: Soft, nontender to palpation. No rebound or guarding. EXTREMITIES: Negative for clubbing, cyanosis. Trace edema. DERMATOLOGIC: No rashes. MUSCULOSKELETAL: No joint effusions. NEUROLOGIC: No change in exam. MEDICATIONS: The patient's medications have been reviewed. LABORATORY DATA: Showed sodium 143, potassium 3.4, chloride 106, BUN 56, creatinine 1.21. White co unt 10.5, hemoglobin 9.9, hematocrit 30.5, platelet count is 189. IMAGING: The patient's chest x-ray from December 31 shows no change, mild pulmonary edema, atelectasis. ASSESSMENT AND PLAN: 1. Nonoliguric acute kidney injury with a previous baseline creatinine 1.0 mg/dL. Etiology of acut e kidney injury is secondary to acute tubular necrosis. The patient's renal function continues to i mprove, seems to be in recovery phase of acute tubular necrosis. At this point, continue current tr eatment plan, supportive care, renally dose all meds. 2. Volume overload secondary to acute kidney injury, sepsis, diastolic heart failure. The patient remains edematous with mild pulmonary congestion. At this point, Lasix was held due to alkalemia. Will continue Diamox 500 mg IV b.i.d. Will add intermittent metolazone as needed and monitor closel y. 3. Metabolic alkalemia, likely from recent diuretic use. Will continue to hold Lasix. Will give D iamox 500 mg b.i.d. and monitor. 4. Hyperkalemia. Will give potassium chloride. Continue Aldactone. 5. Hyponatremia. Continue free water flushes. 6. Mineral bone disorder. Continue to monitor calcium and phosphorus levels. Continue phosphate b inders. 7. Anemia. Continue to monitor hemoglobin and hematocrit levels. 8. Ventilator-dependent respiratory failure. Vent settings have been reviewed. ABG has been revie wed. Continue to monitor. 9. Sepsis secondary to multifocal pneumonia. Continue current antibiotic regimen. 10. Kvw-IO-rhvmdablb myocardial infarction. Continue current treatment plan. 11. Diabetes. Continue Accu-Cheks and insulin sliding scale. 12. Hypertension. Continue current blood pressure regimen. 13. Polysubstance abuse. 14. Positive DAISY with unclear clinical significance. Continue to monitor. 15. Encephalopathy. No change. Please note I spent over 35 minutes of critical care time with this patient. Dictated By: LUIS JOSHI/NTS Conf#: [id number] DID#: [id number]
[2017-01-01] MEDS ORDERED: POTASSIUM CHLORIDE 20 MEQ POWDER FOR ORAL SOLN NGT ONE (08:00)
[2017-01-01] MEDS: SPIRONOLACTONE 25 MG TAB NGT SCH (08:43)
[2017-01-01] MEDS: ASPIRIN 325 MG TAB PO SCH (08:43)
[2017-01-01] MEDS: AMLODIPINE 5 MG TAB PO SCH (08:43)
[2017-01-01] MEDS: SEVELAMER CARBONATE 0.8 GM PKT PO SCH ×3 (08:44→17:09)
[2017-01-01] MEDS: FAMOTIDINE 20 MG TAB PO SCH ×2 (08:44→20:44)
[2017-01-01] MEDS: CHOLECALCIFEROL 1,000 UNIT TAB PO SCH (08:44)
[2017-01-01 08:49] LABS: AADO2 Arterial 325.9 mmHg (7.0-24.0); Allen Test ACCEPTAB; Arterial Base Excess 6.6 mmol/L (-3.0-3); Arterial COHb 0.3 % (0.0-3.0); Arterial Fraction of Oxyhgb 90.6 % (93.0-99.0); Arterial MetHb 0.3 % (0.0-1.5); Arterial Total Hemglobin 11.4 g/dl (12.0-18.0); MODE VENT - AC
[2017-01-01] MEDS: HEPARIN 5,000 UNIT/0.5 ML VIAL SC SCH ×2 (08:50→20:50)
[2017-01-01] MEDS: MEROPENEM 500 MG/100 ML (PMX) 100 ML IVPB SCH ×2 (08:50→20:44)
--- NOTE | 2017-01-01 08:59 | RADRPT ---
PROCEDURE: XR Chest AP portable CLINICAL INDICATION: Pneumonia, CHF TECHNIQUE: An AP portable radiograph of the chest was submitted. COMPARISON: 12/31/2016 FINDINGS: Support Hardware: The endotracheal tube tip has been further advanced to the level of T4-T5 and the NG tube remain in satisfactory position. The left upper extremity PICC catheter tip remains at the junction of the right atrium and superior vena cava.. Cardiovascular: The heart size has increased and is borderline enlarged. The a the peripheral pulmo nary vasculature appears unremarkable. Lung Siddiqui: A suboptimal inspiration compresses lung parenchyma, exaggerating the interstitial colin ings, and there is increasing atelectasis or infiltrate within the right lower lobe. Increased dens ity is seen to the heart compatible with atelectasis/infiltrate involving the left lower lobe. Pleural Spaces: The right costophrenic angle is not somewhat obscured for which a small pleural flui d accumulation cannot be excluded. No pneumothorax is evident. Osseous Structures: The osseous structures appear intact. Soft Tissues: The soft tissues appear generous. IMPRESSION: 1. The endotracheal tube tip is been further advanced to the level of T4-T5. The NG tube and left upper extremity PICC catheter is stable in positioning. 2. Slight increase in heart size with borderline cardiomegaly without CHF. 3. Increasing atelectasis/infiltrate involving the lower lobes bilaterally and suspicion of develop ment of a small right pleural fluid accumulation. Physician Mary Date Time Electronically viewed and signed by Physician Mary on 01/01/2017 08:59 /
[2017-01-01] MEDS ORDERED: ACETAZOLAMIDE 500 MG INJ IV SCH (09:00)
--- NOTE | 2017-01-01 10:44 | CONS ---
Date/Time of Note Date/Time of Note DATE: 01/01/17 TIME: 10:43 Consult Date/Type/Reason Admit Date/Time Dec 15, 2016 at 11:20 Type of Consultation: pulmonary ICU Ordering Provider: LEXII REED Subjective Patient stable this morning no new events continues mechanical ventilation Objective Vital Signs Date Time Temp Pulse Resp B/P Pulse Ox O2 Delivery O2 Flow Rate FiO2 01/01/17 10:30 67 24 160/84 100 01/01/17 10:00 Mechanical Ventilator 01/01/17 09:38 60 01/01/17 08:00 98.8 Intake and Output 12/31/16 12/31/16 01/01/17 15:00 23:00 07:00 Intake Total 1448.5 ml 1506.12 ml 1012.515 ml Output Total 780 ml 640 ml 570 ml Balance 668.5 ml 866.12 ml 442.515 ml Exam Exam PHYSICAL EXAMINATION GENERAL: Young gentleman intubated sedated on mechanical ventilation VITAL SIGNS: see below. HEENT: Pupils equal, round, and reactive to light. CARDIAC: S1, S2, no added sounds or murmurs CHEST: Diminished air entry bilaterally. ABDOMEN: Mildly distended. Bowel sounds present. EXTREMITIES: No cyanosis, clubbing edema +1 NEUROLOGIC: Unable to assess Results/Medications Result Diagram: 01/01/17 0340 01/01/17 0340 Results 24 hrs Laboratory Tests Test 12/31/16 13:24 12/31/16 14:10 12/31/16 17:11 12/31/16 20:50 Bedside Glucose 221 H 192 216 Vancomycin Level Trough 14.4 Test 01/01/17 00:45 01/01/17 03:40 01/01/17 04:43 01/01/17 07:00 Bedside Glucose 220 218 White Blood Count 9.5 Red Blood Count 3.60 L Hemoglobin 9.9 L Hematocrit 30.5 L Mean Corpuscular Volume 84.7 Mean Corpuscular Hemoglobin 27.5 L Mean Corpuscular Hemoglobin Concent 32.5 Red Cell Distribution Width 12.8 Platelet Count 189 Mean Platelet Volume 12.5 H Neutrophils % 89.3 H Lymphocytes % 5.9 L Monocytes % 4.0 Eosinophils % 0.1 Basophils % 0.0 Nucleated Red Blood Cells % 0.0 Neutrophils # 8.5 H Lymphocytes # 0.6 L Monocytes # 0.4 Eosinophils # 0.0 Basophils # 0.0 Nucleated Red Blood Cells # 0.0 Sodium Level 143 Potassium Level 3.4 L Chloride Level 107 Carbon Dioxide Level 28 Anion Gap 11 # Blood Urea Nitrogen 56 H Creatinine 1.21 Glucose Level 222 H Calcium Level 7.4 L Phosphorus Level 4.4 Magnesium Level 2.2 Blood Gas Specimen Source Blood arterial Arterial Blood Date Drawn 01/01/2017 7:49:10 AM Arterial Blood pH (Temp corrected) 7.509 H Arterial Blood pCO2 (Temp correct) 38.6 Arterial Blood pO2 (Temp corrected) 59.4 L Arterial Blood HCO3 30.0 H Arterial Blood Base Excess 6.6 H Arterial Blood Oxygen Saturation 91.1 L Leobardo Test ACCEPTAB Arterial Blood Gas Puncture Site Right HEEL Arterial Blood Carboxyhemoglobin 0.3 Arterial Blood Methemoglobin 0.3 Blood Gas A-a O2 Differential 325.9 H Oxyhemoglobin Percent 90.6 L Total Hemoglobin 11.4 L Blood Gas Temperature 37.0 Blood Gas Respiration Rate 24.0 Blood Gas Actual Respiration Rate 24 Blood Gas Modality VENT - AC FiO2 60.0 Blood Gas Tidal Volume 500.0 Blood Gas Low PEEP Setting 5.0 Blood Gas Notified Whom JLD Blood Gas Notified Time 01/01/2017 8:49:47 AM Test 01/01/17 08:40 Bedside Glucose 199 Medications Current Medications Ondansetron HCl (Zofran Inj) 4 mg Q6H PRN IV NAUSEA AND/OR VOMITING; Start at 13:00 Acetaminophen (Tylenol Tab) 650 mg Q6H PRN PO PAIN LEVEL 1-3 OR FEVER Last administered on 12/29/16 06:02; Admin Dose 650 MG; Start 12/15/16 at 13:00 Acetaminophen/ Hydrocodone Bitart ([place] (5/325)) 1 tab Q6H PRN PO PAIN LEVEL 4 -6 Last administered on 12/15/16 22:08; Admin Dose 1 TAB; Start 12/15/16 at 13: 00 Morphine Sulfate (morphine) 2 mg Q4H PRN IV PAIN LEVEL 7-10 Last administered on 12/25/16 03:03; Admin Dose 2 MG; Start 12/15/16 at 13:00 Magnesium Hydroxide (Milk Of Mag) 30 ml DAILY PRN PO CONSTIPATION; Start at 13:00 Bisacodyl (Dulcolax) 5 mg DAILY PRN PO CONSTIPATION; Start 12/15/16 at 13:00 Famotidine (Pepcid) 20 mg Q12 PO Last administered on 01/01/17 08:44; Admin Dose 20 MG; Start 12/15/16 at 21:00 Hydralazine HCl (Apresoline) 10 mg Q6H PRN IV SBP>160 Last administered on 04:53; Admin Dose 10 MG; Start 12/15/16 at 13:00 Aspirin (Aspirin) 325 mg DAILY PO Last administered on 01/01/17 08:43; Admin Dose 325 MG; Start 12/16/16 at 09:00 Atorvastatin Calcium (Lipitor) 80 mg QHS PO Last administered on 12/31/16 20:46 ; Admin Dose 80 MG; Start 12/15/16 at 21:00 Heparin Sodium (Porcine) (Heparin (5000 Units/0.5 ml)) 5,000 unit BID SC Last administered on 01/01/17 08:50; Admin Dose 5,000 UNIT; Start 12/15/16 at 21:00 Miscellaneous Information 1 ea NOTE XX ; Start 12/15/16 at 14:00 Glucose (Glutose) 15 gm Q15M PRN PO DECREASED GLUCOSE; Start 12/15/16 at 14:00 Glucose (Glutose) 22.5 gm Q15M PRN PO DECREASED GLUCOSE; Start 12/15/16 at 14: 00 Glucagon (Glucagen) 1 mg Q15M PRN IM DECREASED GLUCOSE; Start 12/15/16 at 14:00 Glucose (Glutose) 15 gm Q15M PRN BUCCAL DECREASED GLUCOSE; Start 12/15/16 at 14 :00 Cholecalciferol 1000 unit 1,000 unit DAILY PO Last administered on 01/01/17 08: 44; Admin Dose 1,000 UNIT; Start 12/16/16 at 09:00 Fentanyl (Sublimaze) 100 ml @ 2.5 mls/hr TITRATE IV Last administered on 03:08; Admin Dose 10 MLS/HR; Start 12/18/16 at 03:30 Dextrose (D50w Syringe) 25 ml Q15M PRN IV Till BS 80 mg/dL or above x2; Start 12/18/16 at 14:00 Dextrose (D50w Syringe) 50 ml Q15M PRN IV Till BS 80 mg/dL or above x2; Start 12/18/16 at 14:00 IV Flush 10 ml 10 ml PRN PRN IV IV PROTOCOL; Start 12/18/16 at 17:00 Norepinephrine/ Dextrose (Levophed/D5W) 250 ml @ 0.46 mls/hr TITRATE IV ; Start 12/19/16 at 09:30 Amlodipine Besylate 5 mg 5 mg DAILY PO Last administered on 01/01/17 08:43; Admin Dose 5 MG; Start 12/21/16 at 09:00 Midazolam HCl 50 ml @ 1 mls/hr TITRATE IV Last administered on 01/01/17 07:23; Admin Dose 10 MLS/HR; Start 12/20/16 at 14:00 Propofol (Diprivan) 100 ml @ 3.255 mls/ hr Q12H IV Last administered on 08:45; Admin Dose 22.785 MLS/HR; Start 12/20/16 at 20:30 Hydralazine HCl (Apresoline) 10 mg Q4H PRN IV sbp > 160 Last administered on 22:35; Admin Dose 10 MG; Start 12/22/16 at 06:30 Lorazepam (Ativan) 1 mg Q1H PRN IV agitation Last administered on 12/29/16 16: 35; Admin Dose 1 MG; Start 12/25/16 at 03:30 Carvedilol (Coreg) 6.25 mg BID PO Last administered on 01/01/17 08:43; Admin Dose 6.25 MG; Start 12/25/16 at 21:00 Methylprednisolone Sodium Succinate (Solu-Medrol) 60 mg Q8 IV Last administered on 01/01/17 05:05; Admin Dose 60 MG; Start 12/26/16 at 10:00 Hydralazine HCl 75 mg 75 mg Q8 PO Last administered on 01/01/17 05:03; Admin Dose 75 MG; Start 12/27/16 at 22:00 Meropenem 100 ml @ 200 mls/hr Q12 IVPB Last administered on 01/01/17 08:50; Admin Dose 200 MLS/HR; Start 12/28/16 at 13:00 Caspofungin 50 mg/ Sodium Chloride 250 ml @ 250 mls/hr Q24H IVPB Last administered on 12/31/16 11:34; Admin Dose 250 MLS/HR; Start 12/29/16 at 12:00 Vancomycin HCl/ Sodium Chloride (Vancocin/NS) 500 ml @ 125 mls/hr Q24H IVPB Last administered on 12/31/16 17:06; Admin Dose 125 MLS/HR; Start 12/29/16 at 15: 00 Insulin Aspart (Novolog Insulin Pen) NOVOLOG *MODERATE* ALGORITHM Q4 SC Last administered on 01/01/17 08:49; Admin Dose 4 UNIT; Start 12/29/16 at 09:30 Spironolactone (Aldactone) 25 mg DAILY NGT Last administered on 01/01/17 08:43 ; Admin Dose 25 MG; Start 12/30/16 at 09:00 Insulin Glargine (Lantus) 52 unit DAILY@20 SC Last administered on 12/31/16 20: 55; Admin Dose 52 UNIT; Start 12/31/16 at 20:00 Acetazolamide (Diamox) 500 mg Q12 IV Last administered on 01/01/17 08:44; Admin Dose 500 MG; Start 01/01/17 at 09:00 Assessment/Plan Chief Complaint/Hosp Course Assessment 1. Acute hypoxemic respiratory failure possible healthcare associated pneumonia with underlying pulmonary edema 2. Workup for vasculitis will decrease steroids. Appreciate rheumatology recommendations. 3. Diabetes mellitus 4. Renal insufficiency possible ATN injury worsening pulmonary edema on chest x- ray Plan 1. Continue mechanical ventilation FiO2 decreased and PEEP is decreased 2. Decrease FiO2 as tolerated 3. Continue low-dose steroids 4. Continue broad-spectrum antibiotics 5. Diuretics as tolerated Disposition Continue ICU care Discussed with at bedside Patient better today hopefully will continue to improve when I can attempt CPAP weaning trial Problems: VERO SOTO MD, [facility] January 01, 2017 10:44
--- NOTE | 2017-01-01 11:22 | CONS ---
Date/Time of Note Date/Time of Note DATE: 01/01/17 TIME: 11:20 Assessment/Plan Assessment/Plan Chief Complaint/Hosp Course IMPRESSION: 1. Positive troponin, assess significance.-no sig uptrend/likely demand event in settng fevers/tachy/resp distress 2. Abnormal electrocardiogram with ST depressions with tachycardia and positive troponin, likely indicative of coronary artery disease.-improved ecg findings with improved HR 3. Hypertension, uncontrolled mildly still 4. Dyslipidemia. 5. Diabetes mellitus. 6. Fevers to 104 documented here in the hospital.-ongoing low grade 7. Renal failure.-acute on chronic/ ? secondary to vasculitic syndrome 8. Lower extremity edema, assess for congestive heart failure/CHF-diastolic acute on chronic 9. Nausea and vomiting. 10. Chest pain with cough. 11.Resp failure s/p intubation 12. Bradycardia-to 40's.Now improved and tolerating BB Recc: -Tele -serial ecg's -Continue asa/statin -Continue abx's and f/u cx data -Continue bronchodilators and steroids. -Follow volume status closely and continue lasix diuresis -wean vent as tolerated -Continue hydralazine/norvasc with slight increase hydralazine -Continue coreg and follow HR closely -Ongoing eval for vasculitic syndrome per rheum Problems: Consultation Date/Type/Reason Admit Date/Time Dec 15, 2016 at 11:20 Initial Consult Date 12/15/2016 Type of Consultation: Cardiology Reason for Consultation Positive troponin Referring Provider: LEXII REED Exam/Review of Systems Vital Signs Vitals Vital Signs Date Time Temp Pulse Resp B/P Pulse Ox O2 Delivery O2 Flow Rate FiO2 01/01/17 10:30 67 24 160/84 100 01/01/17 10:00 Mechanical Ventilator 01/01/17 09:38 60 01/01/17 08:00 98.8 Intake and Output 12/31/16 12/31/16 01/01/17 15:00 23:00 07:00 Intake Total 1448.5 ml 1506.12 ml 1012.515 ml Output Total 780 ml 640 ml 570 ml Balance 668.5 ml 866.12 ml 442.515 ml Exam Review of Systems: CONSTITUTIONAL: No fevers, chills. PULMONARY: intubated CARDIOVASCULAR: No obvious chest pain/palpitations GASTROINTESTINAL: No nausea/vomiting. GENITOURINARY: No hematuria/dysuria. MUSCULOSKELETAL: No obvious myagias/arthalgias. PSYCHIATRIC: No documented depression. NEUROLOGIC: No weakness Constitutional: alert Psych: no complaints Head: normocephalic ENMT: mucosa pink and moist Neck: jvd (9 cm water), supple Respiratory: diminished breath sounds (at bases/B) Cardiovascular: regular rate and rhythm Gastrointestinal: non-tender, soft Musculoskeletal: muscle tone (normal) Extremities: edema (trace/B) Neurological: other (No focal deficits) Results Result Diagram: 01/01/17 0340 01/01/17 0340 Results 24 hrs Laboratory Tests Test 12/31/16 13:24 12/31/16 14:10 12/31/16 17:11 12/31/16 20:50 Bedside Glucose 221 H 192 216 Vancomycin Level Trough 14.4 Test 01/01/17 00:45 01/01/17 03:40 01/01/17 04:43 01/01/17 07:00 Bedside Glucose 220 218 White Blood Count 9.5 Red Blood Count 3.60 L Hemoglobin 9.9 L Hematocrit 30.5 L Mean Corpuscular Volume 84.7 Mean Corpuscular Hemoglobin 27.5 L Mean Corpuscular Hemoglobin Concent 32.5 Red Cell Distribution Width 12.8 Platelet Count 189 Mean Platelet Volume 12.5 H Neutrophils % 89.3 H Lymphocytes % 5.9 L Monocytes % 4.0 Eosinophils % 0.1 Basophils % 0.0 Nucleated Red Blood Cells % 0.0 Neutrophils # 8.5 H Lymphocytes # 0.6 L Monocytes # 0.4 Eosinophils # 0.0 Basophils # 0.0 Nucleated Red Blood Cells # 0.0 Sodium Level 143 Potassium Level 3.4 L Chloride Level 107 Carbon Dioxide Level 28 Anion Gap 11 # Blood Urea Nitrogen 56 H Creatinine 1.21 Glucose Level 222 H Calcium Level 7.4 L Phosphorus Level 4.4 Magnesium Level 2.2 Blood Gas Specimen Source Blood arterial Arterial Blood Date Drawn 01/01/2017 7:49:10 AM Arterial Blood pH (Temp corrected) 7.509 H Arterial Blood pCO2 (Temp correct) 38.6 Arterial Blood pO2 (Temp corrected) 59.4 L Arterial Blood HCO3 30.0 H Arterial Blood Base Excess 6.6 H Arterial Blood Oxygen Saturation 91.1 L Leobardo Test ACCEPTAB Arterial Blood Gas Puncture Site Right HEEL Arterial Blood Carboxyhemoglobin 0.3 Arterial Blood Methemoglobin 0.3 Blood Gas A-a O2 Differential 325.9 H Oxyhemoglobin Percent 90.6 L Total Hemoglobin 11.4 L Blood Gas Temperature 37.0 Blood Gas Respiration Rate 24.0 Blood Gas Actual Respiration Rate 24 Blood Gas Modality VENT - AC FiO2 60.0 Blood Gas Tidal Volume 500.0 Blood Gas Low PEEP Setting 5.0 Blood Gas Notified Whom JLD Blood Gas Notified Time 01/01/2017 8:49:47 AM Test 01/01/17 08:40 Bedside Glucose 199 Medications Medications Current Medications Ondansetron HCl (Zofran Inj) 4 mg Q6H PRN IV NAUSEA AND/OR VOMITING; Start at 13:00 Acetaminophen (Tylenol Tab) 650 mg Q6H PRN PO PAIN LEVEL 1-3 OR FEVER Last administered on 12/29/16 06:02; Admin Dose 650 MG; Start 12/15/16 at 13:00 Acetaminophen/ Hydrocodone Bitart (Epps (5/325)) 1 tab Q6H PRN PO PAIN LEVEL 4 -6 Last administered on 12/15/16 22:08; Admin Dose 1 TAB; Start 12/15/16 at 13: 00 Morphine Sulfate (morphine) 2 mg Q4H PRN IV PAIN LEVEL 7-10 Last administered on 12/25/16 03:03; Admin Dose 2 MG; Start 12/15/16 at 13:00 Magnesium Hydroxide (Milk Of Mag) 30 ml DAILY PRN PO CONSTIPATION; Start at 13:00 Bisacodyl (Dulcolax) 5 mg DAILY PRN PO CONSTIPATION; Start 12/15/16 at 13:00 Famotidine (Pepcid) 20 mg Q12 PO Last administered on 01/01/17 08:44; Admin Dose 20 MG; Start 12/15/16 at 21:00 Hydralazine HCl (Apresoline) 10 mg Q6H PRN IV SBP>160 Last administered on 04:53; Admin Dose 10 MG; Start 12/15/16 at 13:00 Aspirin (Aspirin) 325 mg DAILY PO Last administered on 01/01/17 08:43; Admin Dose 325 MG; Start 12/16/16 at 09:00 Atorvastatin Calcium (Lipitor) 80 mg QHS PO Last administered on 12/31/16 20:46 ; Admin Dose 80 MG; Start 12/15/16 at 21:00 Heparin Sodium (Porcine) (Heparin (5000 Units/0.5 ml)) 5,000 unit BID SC Last administered on 01/01/17 08:50; Admin Dose 5,000 UNIT; Start 12/15/16 at 21:00 Miscellaneous Information 1 ea NOTE XX ; Start 12/15/16 at 14:00 Glucose (Glutose) 15 gm Q15M PRN PO DECREASED GLUCOSE; Start 12/15/16 at 14:00 Glucose (Glutose) 22.5 gm Q15M PRN PO DECREASED GLUCOSE; Start 12/15/16 at 14: 00 Glucagon (Glucagen) 1 mg Q15M PRN IM DECREASED GLUCOSE; Start 12/15/16 at 14:00 Glucose (Glutose) 15 gm Q15M PRN BUCCAL DECREASED GLUCOSE; Start 12/15/16 at 14 :00 Cholecalciferol 1000 unit 1,000 unit DAILY PO Last administered on 01/01/17 08: 44; Admin Dose 1,000 UNIT; Start 12/16/16 at 09:00 Fentanyl (Sublimaze) 100 ml @ 2.5 mls/hr TITRATE IV Last administered on 03:08; Admin Dose 10 MLS/HR; Start 12/18/16 at 03:30 Dextrose (D50w Syringe) 25 ml Q15M PRN IV Till BS 80 mg/dL or above x2; Start 12/18/16 at 14:00 Dextrose (D50w Syringe) 50 ml Q15M PRN IV Till BS 80 mg/dL or above x2; Start 12/18/16 at 14:00 IV Flush 10 ml 10 ml PRN PRN IV IV PROTOCOL; Start 12/18/16 at 17:00 Norepinephrine/ Dextrose (Levophed/D5W) 250 ml @ 0.46 mls/hr TITRATE IV ; Start 12/19/16 at 09:30 Amlodipine Besylate 5 mg 5 mg DAILY PO Last administered on 01/01/17 08:43; Admin Dose 5 MG; Start 12/21/16 at 09:00 Midazolam HCl 50 ml @ 1 mls/hr TITRATE IV Last administered on 01/01/17 07:23; Admin Dose 10 MLS/HR; Start 12/20/16 at 14:00 Propofol (Diprivan) 100 ml @ 3.255 mls/ hr Q12H IV Last administered on 08:45; Admin Dose 22.785 MLS/HR; Start 12/20/16 at 20:30 Hydralazine HCl (Apresoline) 10 mg Q4H PRN IV sbp > 160 Last administered on 22:35; Admin Dose 10 MG; Start 12/22/16 at 06:30 Lorazepam (Ativan) 1 mg Q1H PRN IV agitation Last administered on 12/29/16 16: 35; Admin Dose 1 MG; Start 12/25/16 at 03:30 Carvedilol (Coreg) 6.25 mg BID PO Last administered on 01/01/17 08:43; Admin Dose 6.25 MG; Start 12/25/16 at 21:00 Hydralazine HCl 75 mg 75 mg Q8 PO Last administered on 01/01/17 05:03; Admin Dose 75 MG; Start 12/27/16 at 22:00 Meropenem 100 ml @ 200 mls/hr Q12 IVPB Last administered on 01/01/17 08:50; Admin Dose 200 MLS/HR; Start 12/28/16 at 13:00 Caspofungin 50 mg/ Sodium Chloride 250 ml @ 250 mls/hr Q24H IVPB Last administered on 12/31/16 11:34; Admin Dose 250 MLS/HR; Start 12/29/16 at 12:00 Vancomycin HCl/ Sodium Chloride (Vancocin/NS) 500 ml @ 125 mls/hr Q24H IVPB Last administered on 12/31/16 17:06; Admin Dose 125 MLS/HR; Start 12/29/16 at 15: 00 Insulin Aspart (Novolog Insulin Pen) NOVOLOG *MODERATE* ALGORITHM Q4 SC Last administered on 01/01/17 08:49; Admin Dose 4 UNIT; Start 12/29/16 at 09:30 Insulin Glargine (Lantus) 52 unit DAILY@20 SC Last administered on 12/31/16 20: 55; Admin Dose 52 UNIT; Start 12/31/16 at 20:00 Methylprednisolone Sodium Succinate (Solu-Medrol) 40 mg Q12 IV ; Start 01/01/17 at 21:00 VI ADAMES January 01, 2017 11:22
--- NOTE | 2017-01-01 11:27 | PN ---
Date/Time of Note Date/Time of Note DATE: 01/01/17 TIME: 11:27 Assessment/Plan VTE Prophylaxis VTE Prophylaxis Intervention: SCD's Lines/Catheters IV Catheter Type (from Nrs): PICC Line Urinary Cath still in place: Yes Exam/Review of Systems Vital Signs Vitals Vital Signs Date Time Temp Pulse Resp B/P Pulse Ox O2 Delivery O2 Flow Rate FiO2 01/01/17 10:30 67 24 160/84 100 01/01/17 10:00 Mechanical Ventilator 01/01/17 09:38 60 01/01/17 08:00 98.8 Intake and Output 12/31/16 12/31/16 01/01/17 15:00 23:00 07:00 Intake Total 1448.5 ml 1506.12 ml 1012.515 ml Output Total 780 ml 640 ml 570 ml Balance 668.5 ml 866.12 ml 442.515 ml Results Result Diagram: 01/01/17 0340 01/01/17 0340 Results 24 hrs Laboratory Tests Test 12/31/16 13:24 12/31/16 14:10 12/31/16 17:11 12/31/16 20:50 Bedside Glucose 221 H 192 216 Vancomycin Level Trough 14.4 Test 01/01/17 00:45 01/01/17 03:40 01/01/17 04:43 01/01/17 07:00 Bedside Glucose 220 218 White Blood Count 9.5 Red Blood Count 3.60 L Hemoglobin 9.9 L Hematocrit 30.5 L Mean Corpuscular Volume 84.7 Mean Corpuscular Hemoglobin 27.5 L Mean Corpuscular Hemoglobin Concent 32.5 Red Cell Distribution Width 12.8 Platelet Count 189 Mean Platelet Volume 12.5 H Neutrophils % 89.3 H Lymphocytes % 5.9 L Monocytes % 4.0 Eosinophils % 0.1 Basophils % 0.0 Nucleated Red Blood Cells % 0.0 Neutrophils # 8.5 H Lymphocytes # 0.6 L Monocytes # 0.4 Eosinophils # 0.0 Basophils # 0.0 Nucleated Red Blood Cells # 0.0 Sodium Level 143 Potassium Level 3.4 L Chloride Level 107 Carbon Dioxide Level 28 Anion Gap 11 # Blood Urea Nitrogen 56 H Creatinine 1.21 Glucose Level 222 H Calcium Level 7.4 L Phosphorus Level 4.4 Magnesium Level 2.2 Blood Gas Specimen Source Blood arterial Arterial Blood Date Drawn 01/01/2017 7:49:10 AM Arterial Blood pH (Temp corrected) 7.509 H Arterial Blood pCO2 (Temp correct) 38.6 Arterial Blood pO2 (Temp corrected) 59.4 L Arterial Blood HCO3 30.0 H Arterial Blood Base Excess 6.6 H Arterial Blood Oxygen Saturation 91.1 L Leobardo Test ACCEPTAB Arterial Blood Gas Puncture Site Right HEEL Arterial Blood Carboxyhemoglobin 0.3 Arterial Blood Methemoglobin 0.3 Blood Gas A-a O2 Differential 325.9 H Oxyhemoglobin Percent 90.6 L Total Hemoglobin 11.4 L Blood Gas Temperature 37.0 Blood Gas Respiration Rate 24.0 Blood Gas Actual Respiration Rate 24 Blood Gas Modality VENT - AC FiO2 60.0 Blood Gas Tidal Volume 500.0 Blood Gas Low PEEP Setting 5.0 Blood Gas Notified Whom JLD Blood Gas Notified Time 01/01/2017 8:49:47 AM Test 01/01/17 08:40 Bedside Glucose 199 Medications Medications Current Medications Ondansetron HCl (Zofran Inj) 4 mg Q6H PRN IV NAUSEA AND/OR VOMITING; Start at 13:00 Acetaminophen (Tylenol Tab) 650 mg Q6H PRN PO PAIN LEVEL 1-3 OR FEVER Last administered on 12/29/16 06:02; Admin Dose 650 MG; Start 12/15/16 at 13:00 Acetaminophen/ Hydrocodone Bitart (Maud (5/325)) 1 tab Q6H PRN PO PAIN LEVEL 4 -6 Last administered on 12/15/16 22:08; Admin Dose 1 TAB; Start 12/15/16 at 13: 00 Morphine Sulfate (morphine) 2 mg Q4H PRN IV PAIN LEVEL 7-10 Last administered on 12/25/16 03:03; Admin Dose 2 MG; Start 12/15/16 at 13:00 Magnesium Hydroxide (Milk Of Mag) 30 ml DAILY PRN PO CONSTIPATION; Start at 13:00 Bisacodyl (Dulcolax) 5 mg DAILY PRN PO CONSTIPATION; Start 12/15/16 at 13:00 Famotidine (Pepcid) 20 mg Q12 PO Last administered on 01/01/17 08:44; Admin Dose 20 MG; Start 12/15/16 at 21:00 Hydralazine HCl (Apresoline) 10 mg Q6H PRN IV SBP>160 Last administered on 04:53; Admin Dose 10 MG; Start 12/15/16 at 13:00 Aspirin (Aspirin) 325 mg DAILY PO Last administered on 01/01/17 08:43; Admin Dose 325 MG; Start 12/16/16 at 09:00 Atorvastatin Calcium (Lipitor) 80 mg QHS PO Last administered on 12/31/16 20:46 ; Admin Dose 80 MG; Start 12/15/16 at 21:00 Heparin Sodium (Porcine) (Heparin (5000 Units/0.5 ml)) 5,000 unit BID SC Last administered on 01/01/17 08:50; Admin Dose 5,000 UNIT; Start 12/15/16 at 21:00 Miscellaneous Information 1 ea NOTE XX ; Start 12/15/16 at 14:00 Glucose (Glutose) 15 gm Q15M PRN PO DECREASED GLUCOSE; Start 12/15/16 at 14:00 Glucose (Glutose) 22.5 gm Q15M PRN PO DECREASED GLUCOSE; Start 12/15/16 at 14: 00 Glucagon (Glucagen) 1 mg Q15M PRN IM DECREASED GLUCOSE; Start 12/15/16 at 14:00 Glucose (Glutose) 15 gm Q15M PRN BUCCAL DECREASED GLUCOSE; Start 12/15/16 at 14 :00 Cholecalciferol 1000 unit 1,000 unit DAILY PO Last administered on 01/01/17 08: 44; Admin Dose 1,000 UNIT; Start 12/16/16 at 09:00 Fentanyl (Sublimaze) 100 ml @ 2.5 mls/hr TITRATE IV Last administered on 03:08; Admin Dose 10 MLS/HR; Start 12/18/16 at 03:30 Dextrose (D50w Syringe) 25 ml Q15M PRN IV Till BS 80 mg/dL or above x2; Start 12/18/16 at 14:00 Dextrose (D50w Syringe) 50 ml Q15M PRN IV Till BS 80 mg/dL or above x2; Start 12/18/16 at 14:00 IV Flush 10 ml 10 ml PRN PRN IV IV PROTOCOL; Start 12/18/16 at 17:00 Norepinephrine/ Dextrose (Levophed/D5W) 250 ml @ 0.46 mls/hr TITRATE IV ; Start 12/19/16 at 09:30 Amlodipine Besylate 5 mg 5 mg DAILY PO Last administered on 01/01/17 08:43; Admin Dose 5 MG; Start 12/21/16 at 09:00 Midazolam HCl 50 ml @ 1 mls/hr TITRATE IV Last administered on 01/01/17 07:23; Admin Dose 10 MLS/HR; Start 12/20/16 at 14:00 Propofol (Diprivan) 100 ml @ 3.255 mls/ hr Q12H IV Last administered on 08:45; Admin Dose 22.785 MLS/HR; Start 12/20/16 at 20:30 Hydralazine HCl (Apresoline) 10 mg Q4H PRN IV sbp > 160 Last administered on 22:35; Admin Dose 10 MG; Start 12/22/16 at 06:30 Lorazepam (Ativan) 1 mg Q1H PRN IV agitation Last administered on 12/29/16 16: 35; Admin Dose 1 MG; Start 12/25/16 at 03:30 Carvedilol 6.25 mg 6.25 mg BID PO Last administered on 01/01/17 08:43; Admin Dose 6.25 MG; Start 12/25/16 at 21:00 Meropenem 100 ml @ 200 mls/hr Q12 IVPB Last administered on 01/01/17 08:50; Admin Dose 200 MLS/HR; Start 12/28/16 at 13:00 Caspofungin 50 mg/ Sodium Chloride 250 ml @ 250 mls/hr Q24H IVPB Last administered on 12/31/16 11:34; Admin Dose 250 MLS/HR; Start 12/29/16 at 12:00 Vancomycin HCl/ Sodium Chloride (Vancocin/NS) 500 ml @ 125 mls/hr Q24H IVPB Last administered on 12/31/16 17:06; Admin Dose 125 MLS/HR; Start 12/29/16 at 15: 00 Insulin Aspart (Novolog Insulin Pen) NOVOLOG *MODERATE* ALGORITHM Q4 SC Last administered on 01/01/17 08:49; Admin Dose 4 UNIT; Start 12/29/16 at 09:30 Insulin Glargine (Lantus) 52 unit DAILY@20 SC Last administered on 12/31/16 20: 55; Admin Dose 52 UNIT; Start 12/31/16 at 20:00 Methylprednisolone Sodium Succinate (Solu-Medrol) 40 mg Q12 IV ; Start 01/01/17 at 21:00 Hydralazine HCl (Apresoline) 100 mg Q8 PO ; Start 01/01/17 at 14:00; Status [place] January 01, 2017 11:27
--- NOTE | 2017-01-01 11:32 | PN ---
Date/Time of Note Date/Time of Note DATE: 01/01/17 TIME: 11:29 Assessment/Plan VTE Prophylaxis VTE Prophylaxis Intervention: heparin Lines/Catheters IV Catheter Type (from [facility]): PICC Line Central line still needed: Yes Urinary Cath still in place: Yes Reason Cath still needed: urinary retention Assessment/Plan Chief Complaint/Hosp Course A/P: 41 M with: 1. Sepsis secondary to underlying community-acquired pneumonia with septic shock. Currently off pressors. On ABX as per ID. Mycoplasma serology abnormal. 2. Acute hypoxic respiratory failure. Most probably secondary to underlying pneumonia versus others. Patient got intubated on 12/18/2016. Continue inhaled bronchodilators. Pulmonology following the patient. 3. Elevated troponins. Most probably a type 2 event from underlying sepsis and underlying acute kidney injury. Cardiology following. 4. Acute kidney injury. The patient had a normal creatinine of 1.00 on 2015. The patient's current acute kidney injury could be most probably secondary to dehydration from persistent vomiting. The patient's nephrotoxic drugs will be held at this time. Being followed by nephrology. 5. Type 2 diabetes mellitus. Uncontrolled. A1C is high (send out). The patient will be maintained on sliding scale insulin along with basal insulin. 6. Dyslipidemia. Continue statins. 7. Essential hypertension. Continue antihypertensives. 8. Hypocalcemia. Probably secondary to underlying hypoalbuminemia. 9. Microcytic, hypochromic anemia. Etiology unclear. Iron panel showing iron deficiency. Continue iron supplements. 10. Vitamin D deficiency. Continue supplements. 11. Fluids, electrolytes, and nutrition. Tube feedings. 12. DVT prophylaxis. Subcutaneous heparin. 13. Gastrointestinal prophylaxis. Histamine 2 receptor blockers. 14. Plan. Continue antibiotics. Continue ventilator support. Ventilator weaning as per Pulmonary. Adjust insulin to obtain optimal blood sugar control. Critical care time: 40 minutes. Problems: Subjective 24 Hr Interval Summary Free Text/Dictation No acute events overnight, seen by pulm team. Exam/Review of Systems Vital Signs Vitals Vital Signs Date Time Temp Pulse Resp B/P Pulse Ox O2 Delivery O2 Flow Rate FiO2 01/01/17 10:30 67 24 160/84 100 01/01/17 10:00 Mechanical Ventilator 01/01/17 09:38 60 01/01/17 08:00 98.8 Intake and Output 12/31/16 12/31/16 01/01/17 15:00 23:00 07:00 Intake Total 1448.5 ml 1506.12 ml 1012.515 ml Output Total 780 ml 640 ml 570 ml Balance 668.5 ml 866.12 ml 442.515 ml Exam GENERAL: This is a morbidly obese male lying in bed, orally intubated and mechanically ventilated. HEENT: Head normocephalic and atraumatic. Eyes: Anicteric sclerae. Conjunctivae clear. ENT: Nasal septum is midline. Oral mucosa is dry. NECK: Short with increased neck circumference. RESPIRATORY: Bilaterally diminished breath sounds. On mechanical ventilator. CARDIAC: Regular rate and rhythm. S1, S2 heard. ABDOMEN: Soft, nontender and nondistended. Bowel sounds positive in all 4 quadrants. EXTREMITIES: No cyanosis, no clubbing. B/L LE edema. Pedal pulses palpable. Status post left great toe amputation. NEUROLOGIC: The patient is sedated. Results Result Diagram: 01/01/17 0340 01/01/17 0340 Results 24 hrs Laboratory Tests Test 12/31/16 13:24 12/31/16 14:10 12/31/16 17:11 12/31/16 20:50 Bedside Glucose 221 H 192 216 Vancomycin Level Trough 14.4 Test 01/01/17 00:45 01/01/17 03:40 01/01/17 04:43 01/01/17 07:00 Bedside Glucose 220 218 White Blood Count 9.5 Red Blood Count 3.60 L Hemoglobin 9.9 L Hematocrit 30.5 L Mean Corpuscular Volume 84.7 Mean Corpuscular Hemoglobin 27.5 L Mean Corpuscular Hemoglobin Concent 32.5 Red Cell Distribution Width 12.8 Platelet Count 189 Mean Platelet Volume 12.5 H Neutrophils % 89.3 H Lymphocytes % 5.9 L Monocytes % 4.0 Eosinophils % 0.1 Basophils % 0.0 Nucleated Red Blood Cells % 0.0 Neutrophils # 8.5 H Lymphocytes # 0.6 L Monocytes # 0.4 Eosinophils # 0.0 Basophils # 0.0 Nucleated Red Blood Cells # 0.0 Sodium Level 143 Potassium Level 3.4 L Chloride Level 107 Carbon Dioxide Level 28 Anion Gap 11 # Blood Urea Nitrogen 56 H Creatinine 1.21 Glucose Level 222 H Calcium Level 7.4 L Phosphorus Level 4.4 Magnesium Level 2.2 Blood Gas Specimen Source Blood arterial Arterial Blood Date Drawn 01/01/2017 7:49:10 AM Arterial Blood pH (Temp corrected) 7.509 H Arterial Blood pCO2 (Temp correct) 38.6 Arterial Blood pO2 (Temp corrected) 59.4 L Arterial Blood HCO3 30.0 H Arterial Blood Base Excess 6.6 H Arterial Blood Oxygen Saturation 91.1 L Leobardo Test ACCEPTAB Arterial Blood Gas Puncture Site Right HEEL Arterial Blood Carboxyhemoglobin 0.3 Arterial Blood Methemoglobin 0.3 Blood Gas A-a O2 Differential 325.9 H Oxyhemoglobin Percent 90.6 L Total Hemoglobin 11.4 L Blood Gas Temperature 37.0 Blood Gas Respiration Rate 24.0 Blood Gas Actual Respiration Rate 24 Blood Gas Modality VENT - AC FiO2 60.0 Blood Gas Tidal Volume 500.0 Blood Gas Low PEEP Setting 5.0 Blood Gas Notified Whom JLD Blood Gas Notified Time 01/01/2017 8:49:47 AM Test 01/01/17 08:40 Bedside Glucose 199 Medications Medications Current Medications Ondansetron HCl (Zofran Inj) 4 mg Q6H PRN IV NAUSEA AND/OR VOMITING; Start at 13:00 Acetaminophen (Tylenol Tab) 650 mg Q6H PRN PO PAIN LEVEL 1-3 OR FEVER Last administered on 12/29/16 06:02; Admin Dose 650 MG; Start 12/15/16 at 13:00 Acetaminophen/ Hydrocodone Bitart ([place] (5/325)) 1 tab Q6H PRN PO PAIN LEVEL 4 -6 Last administered on 12/15/16 22:08; Admin Dose 1 TAB; Start 12/15/16 at 13: 00 Morphine Sulfate (morphine) 2 mg Q4H PRN IV PAIN LEVEL 7-10 Last administered on 12/25/16 03:03; Admin Dose 2 MG; Start 12/15/16 at 13:00 Magnesium Hydroxide (Milk Of Mag) 30 ml DAILY PRN PO CONSTIPATION; Start at 13:00 Bisacodyl (Dulcolax) 5 mg DAILY PRN PO CONSTIPATION; Start 12/15/16 at 13:00 Famotidine (Pepcid) 20 mg Q12 PO Last administered on 01/01/17 08:44; Admin Dose 20 MG; Start 12/15/16 at 21:00 Hydralazine HCl (Apresoline) 10 mg Q6H PRN IV SBP>160 Last administered on 04:53; Admin Dose 10 MG; Start 12/15/16 at 13:00 Aspirin (Aspirin) 325 mg DAILY PO Last administered on 01/01/17 08:43; Admin Dose 325 MG; Start 12/16/16 at 09:00 Atorvastatin Calcium (Lipitor) 80 mg QHS PO Last administered on 12/31/16 20:46 ; Admin Dose 80 MG; Start 12/15/16 at 21:00 Heparin Sodium (Porcine) (Heparin (5000 Units/0.5 ml)) 5,000 unit BID SC Last administered on 01/01/17 08:50; Admin Dose 5,000 UNIT; Start 12/15/16 at 21:00 Miscellaneous Information 1 ea NOTE XX ; Start 12/15/16 at 14:00 Glucose (Glutose) 15 gm Q15M PRN PO DECREASED GLUCOSE; Start 12/15/16 at 14:00 Glucose (Glutose) 22.5 gm Q15M PRN PO DECREASED GLUCOSE; Start 12/15/16 at 14: 00 Glucagon (Glucagen) 1 mg Q15M PRN IM DECREASED GLUCOSE; Start 12/15/16 at 14:00 Glucose (Glutose) 15 gm Q15M PRN BUCCAL DECREASED GLUCOSE; Start 12/15/16 at 14 :00 Cholecalciferol 1000 unit 1,000 unit DAILY PO Last administered on 01/01/17 08: 44; Admin Dose 1,000 UNIT; Start 12/16/16 at 09:00 Fentanyl (Sublimaze) 100 ml @ 2.5 mls/hr TITRATE IV Last administered on 03:08; Admin Dose 10 MLS/HR; Start 12/18/16 at 03:30 Dextrose (D50w Syringe) 25 ml Q15M PRN IV Till BS 80 mg/dL or above x2; Start 12/18/16 at 14:00 Dextrose (D50w Syringe) 50 ml Q15M PRN IV Till BS 80 mg/dL or above x2; Start 12/18/16 at 14:00 IV Flush 10 ml 10 ml PRN PRN IV IV PROTOCOL; Start 12/18/16 at 17:00 Norepinephrine/ Dextrose (Levophed/D5W) 250 ml @ 0.46 mls/hr TITRATE IV ; Start 12/19/16 at 09:30 Amlodipine Besylate 5 mg 5 mg DAILY PO Last administered on 01/01/17 08:43; Admin Dose 5 MG; Start 12/21/16 at 09:00 Midazolam HCl 50 ml @ 1 mls/hr TITRATE IV Last administered on 01/01/17 07:23; Admin Dose 10 MLS/HR; Start 12/20/16 at 14:00 Propofol (Diprivan) 100 ml @ 3.255 mls/ hr Q12H IV Last administered on 08:45; Admin Dose 22.785 MLS/HR; Start 12/20/16 at 20:30 Hydralazine HCl (Apresoline) 10 mg Q4H PRN IV sbp > 160 Last administered on 22:35; Admin Dose 10 MG; Start 12/22/16 at 06:30 Lorazepam (Ativan) 1 mg Q1H PRN IV agitation Last administered on 12/29/16 16: 35; Admin Dose 1 MG; Start 12/25/16 at 03:30 Carvedilol 6.25 mg 6.25 mg BID PO Last administered on 01/01/17 08:43; Admin Dose 6.25 MG; Start 12/25/16 at 21:00 Meropenem 100 ml @ 200 mls/hr Q12 IVPB Last administered on 01/01/17 08:50; Admin Dose 200 MLS/HR; Start 12/28/16 at 13:00 Caspofungin 50 mg/ Sodium Chloride 250 ml @ 250 mls/hr Q24H IVPB Last administered on 12/31/16 11:34; Admin Dose 250 MLS/HR; Start 12/29/16 at 12:00 Vancomycin HCl/ Sodium Chloride (Vancocin/NS) 500 ml @ 125 mls/hr Q24H IVPB Last administered on 12/31/16 17:06; Admin Dose 125 MLS/HR; Start 12/29/16 at 15: 00 Insulin Aspart (Novolog Insulin Pen) NOVOLOG *MODERATE* ALGORITHM Q4 SC Last administered on 01/01/17 08:49; Admin Dose 4 UNIT; Start 12/29/16 at 09:30 Insulin Glargine (Lantus) 52 unit DAILY@20 SC Last administered on 12/31/16t 20: 55; Admin Dose 52 UNIT; Start 12/31/16 at 20:00 Methylprednisolone Sodium Succinate (Solu-Medrol) 40 mg Q12 IV ; Start 01/01/17 at 21:00 Hydralazine HCl (Apresoline) 100 mg Q8 PO ; Start 01/01/17 at 14:00 CLARITA VERMA January 01, 2017 11:32
[2017-01-01] MEDS: CASPOFUNGIN 50 MG in SOD CHLORIDE 0.9% 250 ML IVPB SCH (12:15)
[2017-01-01] MEDS: FUROSEMIDE 40 MG INJ IV SCH ×2 (12:16→17:10)
--- NOTE | 2017-01-01 12:52 | CONS ---
Date/Time of Note Date/Time of Note DATE: 01/01/17 TIME: 12:51 Assessment/Plan Assessment/Plan Chief Complaint/Hosp Course SUBJECTIVE: No events overnight. The patient remains intubated, but doing better in terms of his respiratory status MICROBIOLOGY: Blood culture on 12/27/2016 remain negative. Urine culture grew Estrellita albicans. Sputum culture growing coagulase-negative staph and Estrellita albicans and Estrellita glabrata. INDWELLINGS: Endotracheal tube, NG tube, Ritchie catheter, PICC line. ANTIMICROBIALS: 1. Vancomycin. 2. Cancidas. 3. Meropenem. PHYSICAL EXAMINATION: GENERAL: This is an obese, well-developed, middle-aged man who is in no distress. HEENT: Head atraumatic, normocephalic. Sclerae anicteric. Buccal mucosa dry. NECK: Supple, trachea midline. CHEST: Rise symmetrical. Breath sounds diminished at the bases. HEART: S1, S2. ABDOMEN: Soft. Bowel tones present. EXTREMITIES: Without cyanosis. Bilateral trace edema. ASSESSMENT: 1. Acute hypoxemic respiratory failure. 2. Multilobular pneumonia. 3. ARDS. 4. Acute renal failure. 5. Persistent leukocytosis, patient is on Solu-Medrol every 8 hours IV. 6. Positive DAISY, significance unclear, no evidence of vasculitis per rheumatology note. 7. Diabetes. 8. Urinary tract infection. PLAN: The patient remains hemodynamically stable. WBC tracing down. Continue current antibiotics. Vent per pulmonary DW staff Problems: Consultation Date/Type/Reason Admit Date/Time Dec 15, 2016 at 11:20 Type of Consultation: id Referring Provider: LEXII REED Exam/Review of Systems Vital Signs Vitals Vital Signs Date Time Temp Pulse Resp B/P Pulse Ox O2 Delivery O2 Flow Rate FiO2 01/01/17 10:30 67 24 160/84 100 01/01/17 10:00 Mechanical Ventilator 01/01/17 09:38 60 01/01/17 08:00 98.8 Intake and Output 12/31/16 12/31/16 01/01/17 15:00 23:00 07:00 Intake Total 1448.5 ml 1506.12 ml 1012.515 ml Output Total 780 ml 640 ml 570 ml Balance 668.5 ml 866.12 ml 442.515 ml Results Result Diagram: 01/01/17 0340 01/01/17 0340 Results 24 hrs Laboratory Tests Test 12/31/16 13:24 12/31/16 14:10 12/31/16 17:11 12/31/16 20:50 Bedside Glucose 221 H 192 216 Vancomycin Level Trough 14.4 Test 01/01/17 00:45 01/01/17 03:40 01/01/17 04:43 01/01/17 07:00 Bedside Glucose 220 218 White Blood Count 9.5 Red Blood Count 3.60 L Hemoglobin 9.9 L Hematocrit 30.5 L Mean Corpuscular Volume 84.7 Mean Corpuscular Hemoglobin 27.5 L Mean Corpuscular Hemoglobin Concent 32.5 Red Cell Distribution Width 12.8 Platelet Count 189 Mean Platelet Volume 12.5 H Neutrophils % 89.3 H Lymphocytes % 5.9 L Monocytes % 4.0 Eosinophils % 0.1 Basophils % 0.0 Nucleated Red Blood Cells % 0.0 Neutrophils # 8.5 H Lymphocytes # 0.6 L Monocytes # 0.4 Eosinophils # 0.0 Basophils # 0.0 Nucleated Red Blood Cells # 0.0 Sodium Level 143 Potassium Level 3.4 L Chloride Level 107 Carbon Dioxide Level 28 Anion Gap 11 # Blood Urea Nitrogen 56 H Creatinine 1.21 Glucose Level 222 H Calcium Level 7.4 L Phosphorus Level 4.4 Magnesium Level 2.2 Blood Gas Specimen Source Blood arterial Arterial Blood Date Drawn 01/01/2017 7:49:10 AM Arterial Blood pH (Temp corrected) 7.509 H Arterial Blood pCO2 (Temp correct) 38.6 Arterial Blood pO2 (Temp corrected) 59.4 L Arterial Blood HCO3 30.0 H Arterial Blood Base Excess 6.6 H Arterial Blood Oxygen Saturation 91.1 L Leobardo Test ACCEPTAB Arterial Blood Gas Puncture Site Right HEEL Arterial Blood Carboxyhemoglobin 0.3 Arterial Blood Methemoglobin 0.3 Blood Gas A-a O2 Differential 325.9 H Oxyhemoglobin Percent 90.6 L Total Hemoglobin 11.4 L Blood Gas Temperature 37.0 Blood Gas Respiration Rate 24.0 Blood Gas Actual Respiration Rate 24 Blood Gas Modality VENT - AC FiO2 60.0 Blood Gas Tidal Volume 500.0 Blood Gas Low PEEP Setting 5.0 Blood Gas Notified Whom JLD Blood Gas Notified Time 01/01/2017 8:49:47 AM Test 01/01/17 08:40 01/01/17 12:13 Bedside Glucose 199 199 Medications Medications Current Medications Ondansetron HCl (Zofran Inj) 4 mg Q6H PRN IV NAUSEA AND/OR VOMITING; Start at 13:00 Acetaminophen (Tylenol Tab) 650 mg Q6H PRN PO PAIN LEVEL 1-3 OR FEVER Last administered on 12/29/16 06:02; Admin Dose 650 MG; Start 12/15/16 at 13:00 Acetaminophen/ Hydrocodone Bitart ([place] (5/325)) 1 tab Q6H PRN PO PAIN LEVEL 4 -6 Last administered on 12/15/16 22:08; Admin Dose 1 TAB; Start 12/15/16 at 13: 00 Morphine Sulfate (morphine) 2 mg Q4H PRN IV PAIN LEVEL 7-10 Last administered on 12/25/16 03:03; Admin Dose 2 MG; Start 12/15/16 at 13:00 Magnesium Hydroxide (Milk Of Mag) 30 ml DAILY PRN PO CONSTIPATION; Start at 13:00 Bisacodyl (Dulcolax) 5 mg DAILY PRN PO CONSTIPATION; Start 12/15/16 at 13:00 Famotidine (Pepcid) 20 mg Q12 PO Last administered on 01/01/17 08:44; Admin Dose 20 MG; Start 12/15/16 at 21:00 Hydralazine HCl (Apresoline) 10 mg Q6H PRN IV SBP>160 Last administered on 04:53; Admin Dose 10 MG; Start 12/15/16 at 13:00 Aspirin (Aspirin) 325 mg DAILY PO Last administered on 01/01/17 08:43; Admin Dose 325 MG; Start 12/16/16 at 09:00 Atorvastatin Calcium (Lipitor) 80 mg QHS PO Last administered on 12/31/16 20:46 ; Admin Dose 80 MG; Start 12/15/16 at 21:00 Heparin Sodium (Porcine) (Heparin (5000 Units/0.5 ml)) 5,000 unit BID SC Last administered on 01/01/17 08:50; Admin Dose 5,000 UNIT; Start 12/15/16 at 21:00 Miscellaneous Information 1 ea NOTE XX ; Start 12/15/16 at 14:00 Glucose (Glutose) 15 gm Q15M PRN PO DECREASED GLUCOSE; Start 12/15/16 at 14:00 Glucose (Glutose) 22.5 gm Q15M PRN PO DECREASED GLUCOSE; Start 12/15/16 at 14: 00 Glucagon (Glucagen) 1 mg Q15M PRN IM DECREASED GLUCOSE; Start 12/15/16 at 14:00 Glucose (Glutose) 15 gm Q15M PRN BUCCAL DECREASED GLUCOSE; Start 12/15/16 at 14 :00 Cholecalciferol 1000 unit 1,000 unit DAILY PO Last administered on 01/01/17 08: 44; Admin Dose 1,000 UNIT; Start 12/16/16 at 09:00 Fentanyl (Sublimaze) 100 ml @ 2.5 mls/hr TITRATE IV Last administered on 03:08; Admin Dose 10 MLS/HR; Start 12/18/16 at 03:30 Dextrose (D50w Syringe) 25 ml Q15M PRN IV Till BS 80 mg/dL or above x2; Start 12/18/16 at 14:00 Dextrose (D50w Syringe) 50 ml Q15M PRN IV Till BS 80 mg/dL or above x2; Start 12/18/16 at 14:00 IV Flush 10 ml 10 ml PRN PRN IV IV PROTOCOL; Start 12/18/16 at 17:00 Norepinephrine/ Dextrose (Levophed/D5W) 250 ml @ 0.46 mls/hr TITRATE IV ; Start 12/19/16 at 09:30 Amlodipine Besylate 5 mg 5 mg DAILY PO Last administered on 01/01/17 08:43; Admin Dose 5 MG; Start 12/21/16 at 09:00 Midazolam HCl 50 ml @ 1 mls/hr TITRATE IV Last administered on 01/01/17 07:23; Admin Dose 10 MLS/HR; Start 12/20/16 at 14:00 Propofol (Diprivan) 100 ml @ 3.255 mls/ hr Q12H IV Last administered on 08:45; Admin Dose 22.785 MLS/HR; Start 12/20/16 at 20:30 Hydralazine HCl (Apresoline) 10 mg Q4H PRN IV sbp > 160 Last administered on 22:35; Admin Dose 10 MG; Start 12/22/16 at 06:30 Lorazepam (Ativan) 1 mg Q1H PRN IV agitation Last administered on 12/29/16 16: 35; Admin Dose 1 MG; Start 12/25/16 at 03:30 Carvedilol 6.25 mg 6.25 mg BID PO Last administered on 01/01/17 08:43; Admin Dose 6.25 MG; Start 12/25/16 at 21:00 Meropenem 100 ml @ 200 mls/hr Q12 IVPB Last administered on 01/01/17 08:50; Admin Dose 200 MLS/HR; Start 12/28/16 at 13:00 Caspofungin/ Sodium Chloride (Cancidas/NS) 250 ml @ 250 mls/hr Q24H IVPB Last administered on 12/31/16 11:34; Admin Dose 250 MLS/HR; Start 12/29/16 at 12:00 Insulin Aspart (Novolog Insulin Pen) NOVOLOG *MODERATE* ALGORITHM Q4 SC Last administered on 01/01/17 08:49; Admin Dose 4 UNIT; Start 12/29/16 at 09:30 Insulin Glargine (Lantus) 52 unit DAILY@20 SC Last administered on 12/31/16 20: 55; Admin Dose 52 UNIT; Start 12/31/16 at 20:00 Methylprednisolone Sodium Succinate (Solu-Medrol) 40 mg Q12 IV ; Start 01/01/17 at 21:00 Hydralazine HCl 100 mg 100 mg Q8 PO ; Start 01/01/17 at 14:00 Vancomycin HCl/ Sodium Chloride (Vancocin/NS) 250 ml @ 83.333 mls/ hr Q24H IVPB ; Start 01/01/17 at 17:00 YOLETTE RODRIGUEZ NP January 01, 2017 12:52
[2017-01-01 14:00] LABS: CALCIUM 7.3 mg/dl (8.4-10.2); CREATININE 1.24 mg/dl (0.61-1.24); POTASSIUM 3.4 mmol/L (3.5-5.1)
[2017-01-01] MEDS: VANCOMYCIN 1.5 GM in SOD CHLORIDE 0.9% 250 ML IVPB SCH (17:07)
--- NOTE | 2017-01-01 17:48 | CONS ---
Date/Time of Note Date/Time of Note DATE: 01/01/17 TIME: 17:47 Consult Date/Type/Reason Admit Date/Time Dec 15, 2016 at 11:20 Type of Consultation: Rheum Ordering Provider: LEXII REED Subjective Continues sedated. Intubated Objective Vital Signs Date Time Temp Pulse Resp B/P Pulse Ox O2 Delivery O2 Flow Rate FiO2 01/01/17 17:00 58 24 99 60 01/01/17 15:30 157/69 01/01/17 15:00 Mechanical Ventilator 01/01/17 12:00 98.1 Intake and Output 12/31/16 12/31/16 01/01/17 15:00 23:00 07:00 Intake Total 1448.5 ml 1506.12 ml 1012.515 ml Output Total 780 ml 640 ml 570 ml Balance 668.5 ml 866.12 ml 442.515 ml Exam Continues sedated, intubated. Skin without new acute lesions. Chest scattered crackles. Heart RRR Abd soft. Ext. No synovitis Results/Medications Result Diagram: 01/01/17 0340 01/01/17 1325 Results 24 hrs Laboratory Tests Test 12/31/16 20:50 01/01/17 00:45 01/01/17 03:40 01/01/17 04:43 Bedside Glucose 216 220 218 White Blood Count 9.5 Red Blood Count 3.60 L Hemoglobin 9.9 L Hematocrit 30.5 L Mean Corpuscular Volume 84.7 Mean Corpuscular Hemoglobin 27.5 L Mean Corpuscular Hemoglobin Concent 32.5 Red Cell Distribution Width 12.8 Platelet Count 189 Mean Platelet Volume 12.5 H Neutrophils % 89.3 H Lymphocytes % 5.9 L Monocytes % 4.0 Eosinophils % 0.1 Basophils % 0.0 Nucleated Red Blood Cells % 0.0 Neutrophils # 8.5 H Lymphocytes # 0.6 L Monocytes # 0.4 Eosinophils # 0.0 Basophils # 0.0 Nucleated Red Blood Cells # 0.0 Sodium Level 143 Potassium Level 3.4 L Chloride Level 107 Carbon Dioxide Level 28 Anion Gap 11 # Blood Urea Nitrogen 56 H Creatinine 1.21 Glucose Level 222 H Calcium Level 7.4 L Phosphorus Level 4.4 Magnesium Level 2.2 Test 01/01/17 07:00 01/01/17 08:40 01/01/17 12:13 01/01/17 13:25 Blood Gas Specimen Source Blood arterial Arterial Blood Date Drawn 01/01/2017 7:49:10 AM Arterial Blood pH (Temp corrected) 7.509 H Arterial Blood pCO2 (Temp correct) 38.6 Arterial Blood pO2 (Temp corrected) 59.4 L Arterial Blood HCO3 30.0 H Arterial Blood Base Excess 6.6 H Arterial Blood Oxygen Saturation 91.1 L Leobardo Test ACCEPTAB Arterial Blood Gas Puncture Site Right HEEL Arterial Blood Carboxyhemoglobin 0.3 Arterial Blood Methemoglobin 0.3 Blood Gas A-a O2 Differential 325.9 H Oxyhemoglobin Percent 90.6 L Total Hemoglobin 11.4 L Blood Gas Temperature 37.0 Blood Gas Respiration Rate 24.0 Blood Gas Actual Respiration Rate 24 Blood Gas Modality VENT - AC FiO2 60.0 Blood Gas Tidal Volume 500.0 Blood Gas Low PEEP Setting 5.0 Blood Gas Notified Whom JLD Blood Gas Notified Time 01/01/2017 8:49:47 AM Bedside Glucose 199 199 Sodium Level 139 Potassium Level 3.4 L Chloride Level 109 Carbon Dioxide Level 29 Anion Gap 4 L Blood Urea Nitrogen 49 H Creatinine 1.24 Glucose Level 223 H Calcium Level 7.3 L Test 01/01/17 16:21 Bedside Glucose 202 Medications Current Medications Ondansetron HCl (Zofran Inj) 4 mg Q6H PRN IV NAUSEA AND/OR VOMITING; Start at 13:00 Acetaminophen (Tylenol Tab) 650 mg Q6H PRN PO PAIN LEVEL 1-3 OR FEVER Last administered on 12/29/16 06:02; Admin Dose 650 MG; Start 12/15/16 at 13:00 Acetaminophen/ Hydrocodone Bitart ([place] (5/325)) 1 tab Q6H PRN PO PAIN LEVEL 4 -6 Last administered on 12/15/16 22:08; Admin Dose 1 TAB; Start 12/15/16 at 13: 00 Morphine Sulfate (morphine) 2 mg Q4H PRN IV PAIN LEVEL 7-10 Last administered on 12/25/16 03:03; Admin Dose 2 MG; Start 12/15/16 at 13:00 Magnesium Hydroxide (Milk Of Mag) 30 ml DAILY PRN PO CONSTIPATION; Start at 13:00 Bisacodyl (Dulcolax) 5 mg DAILY PRN PO CONSTIPATION; Start 12/15/16 at 13:00 Famotidine (Pepcid) 20 mg Q12 PO Last administered on 01/01/17 08:44; Admin Dose 20 MG; Start 12/15/16 at 21:00 Hydralazine HCl (Apresoline) 10 mg Q6H PRN IV SBP>160 Last administered on 04:53; Admin Dose 10 MG; Start 12/15/16 at 13:00 Aspirin (Aspirin) 325 mg DAILY PO Last administered on 01/01/17 08:43; Admin Dose 325 MG; Start 12/16/16 at 09:00 Atorvastatin Calcium (Lipitor) 80 mg QHS PO Last administered on 12/31/16 20:46 ; Admin Dose 80 MG; Start 12/15/16 at 21:00 Heparin Sodium (Porcine) (Heparin (5000 Units/0.5 ml)) 5,000 unit BID SC Last administered on 01/01/17 08:50; Admin Dose 5,000 UNIT; Start 12/15/16 at 21:00 Miscellaneous Information 1 ea NOTE XX ; Start 12/15/16 at 14:00 Glucose (Glutose) 15 gm Q15M PRN PO DECREASED GLUCOSE; Start 12/15/16 at 14:00 Glucose (Glutose) 22.5 gm Q15M PRN PO DECREASED GLUCOSE; Start 12/15/16 at 14: 00 Glucagon (Glucagen) 1 mg Q15M PRN IM DECREASED GLUCOSE; Start 12/15/16 at 14:00 Glucose (Glutose) 15 gm Q15M PRN BUCCAL DECREASED GLUCOSE; Start 12/15/16 at 14 :00 Cholecalciferol 1000 unit 1,000 unit DAILY PO Last administered on 01/01/17 08: 44; Admin Dose 1,000 UNIT; Start 12/16/16 at 09:00 Fentanyl (Sublimaze) 100 ml @ 2.5 mls/hr TITRATE IV Last administered on 12:15; Admin Dose 10 MLS/HR; Start 12/18/16 at 03:30 Dextrose (D50w Syringe) 25 ml Q15M PRN IV Till BS 80 mg/dL or above x2; Start 12/18/16 at 14:00 Dextrose (D50w Syringe) 50 ml Q15M PRN IV Till BS 80 mg/dL or above x2; Start 12/18/16 at 14:00 IV Flush 10 ml 10 ml PRN PRN IV IV PROTOCOL; Start 12/18/16 at 17:00 Norepinephrine/ Dextrose (Levophed/D5W) 250 ml @ 0.46 mls/hr TITRATE IV ; Start 12/19/16 at 09:30 Amlodipine Besylate 5 mg 5 mg DAILY PO Last administered on 01/01/17 08:43; Admin Dose 5 MG; Start 12/21/16 at 09:00 Midazolam HCl 50 ml @ 1 mls/hr TITRATE IV Last administered on 01/01/17 17:07; Admin Dose 10 MLS/HR; Start 12/20/16 at 14:00 Propofol (Diprivan) 100 ml @ 3.255 mls/ hr Q12H IV Last administered on 17:08; Admin Dose 22.785 MLS/HR; Start 12/20/16 at 20:30 Hydralazine HCl (Apresoline) 10 mg Q4H PRN IV sbp > 160 Last administered on 22:35; Admin Dose 10 MG; Start 12/22/16 at 06:30 Lorazepam (Ativan) 1 mg Q1H PRN IV agitation Last administered on 12/29/16 16: 35; Admin Dose 1 MG; Start 12/25/16 at 03:30 Carvedilol 6.25 mg 6.25 mg BID PO Last administered on 01/01/17 08:43; Admin Dose 6.25 MG; Start 12/25/16 at 21:00 Meropenem 100 ml @ 200 mls/hr Q12 IVPB Last administered on 01/01/17 08:50; Admin Dose 200 MLS/HR; Start 12/28/16 at 13:00 Caspofungin/ Sodium Chloride (Cancidas/NS) 250 ml @ 250 mls/hr Q24H IVPB Last administered on 01/01/17 12:15; Admin Dose 250 MLS/HR; Start 12/29/16 at 12:00 Insulin Aspart (Novolog Insulin Pen) NOVOLOG *MODERATE* ALGORITHM Q4 SC Last administered on 01/01/17 16:46; Admin Dose 4 UNIT; Start 12/29/16 at 09:30 Insulin Glargine (Lantus) 52 unit DAILY@20 SC Last administered on 12/31/16 20: 55; Admin Dose 52 UNIT; Start 12/31/16 at 20:00 Methylprednisolone Sodium Succinate (Solu-Medrol) 40 mg Q12 IV ; Start 01/01/17 at 21:00 Hydralazine HCl 100 mg 100 mg Q8 PO Last administered on 01/01/17 13:44; Admin Dose 100 MG; Start 01/01/17 at 14:00 Vancomycin HCl/ Sodium Chloride (Vancocin/NS) 250 ml @ 83.333 mls/ hr Q24H IVPB Last administered on 01/01/17 17:07; Admin Dose 83.333 MLS/HR; Start at 17:00 Assessment/Plan Chief Complaint/Hosp Course 1. Positive DAISY of unclear significance so far. DS DNA still pending. No definite evidence of vasculitis, May continue on steroids empirically . 2. Respiratory failure. 3. Renal insufficiency Much improved. 4. Diabetes mellitus. Glucose increased on steroids. 5. Hypertension. Rec. Steroid dose per pulmonary Problems: ELIZABETH PUCKETT MD January 01, 2017 17:48
[2017-01-01] MEDS: ATORVASTATIN 80 MG TAB PO SCH (20:43)
[2017-01-01] MEDS: INSULIN GLARGINE [LANtus] 3 ML PEN SC SCH (20:50)
[2017-01-02] VITALS (58 sets, daily range): BP systolic 95–150; BP diastolic 43–99; PULSE 57–73; RESP 18–29
[2017-01-02] MEDS: INSULIN ASPART [NOVOLOG] 3 ML PEN SC SCH ×6 (01:23→20:48)
[2017-01-02] MEDS: LEVALBUTEROL (HFA) 15 GM INHALER INH SCH ×4 (01:57→19:54)
[2017-01-02] MEDS: PROPOFOL 100 ML IV SCH ×5 (02:06→21:39)
[2017-01-02] MEDS: MIDAZOLAM (DRIP) 50 mg/50 mL 50 ML IV SCH ×4 (04:12→21:51)
[2017-01-02] MEDS: FUROSEMIDE 40 MG INJ IV SCH ×2 (05:14→17:16)
[2017-01-02 05:21] LABS: ADD SCAN DIFF NO
[2017-01-02 05:36] LABS: BASOPHILS % 0.1 % (0.0-2.0); EOSINOPHILS # 0.2 10^3/ul (0.0-0.5); EOSINOPHILS % 1.5 % (0.0-7.0); HEMATOCRIT 31.8 % (42.0-52.0); HEMOGLOBIN 10.1 g/dl (14.0-18.0); LYMPHOCYTES # 1.2 10^3/ul (0.8-2.9); MEAN CORPUSCULAR HEMOGLOBIN 27.3 pg (29.0-33.0); MEAN CORPUSCULAR HGB CONC 31.8 g/dl (32.0-37.0); MEAN CORPUSCULAR VOLUME 85.9 fl (82.0-101.0); MEAN PLATELET VOLUME 12.5 fl (7.4-10.4); MONOCYTE # 0.5 10^3/ul (0.3-0.9); MONOCYTES % 4.6 % (0.0-11.0); NEUTROPHIL # 8.8 10^3/ul (1.6-7.5); NEUTROPHILS % 82.1 % (39.0-77.0); PLATELET COUNT 192 10^3/UL (140-415); RED CELL DISTRIBUTION WIDTH 12.9 % (11.5-14.5); WHITE BLOOD COUNT 10.7 10^3/ul (4.8-10.8)
[2017-01-02 05:56] LABS: CALCIUM 7.4 mg/dl (8.4-10.2); CREATININE 1.22 mg/dl (0.61-1.24); MAGNESIUM 2.3 mg/dl (1.7-2.5); PHOSPHORUS 3.8 mg/dl (2.5-4.9); POTASSIUM 3.2 mmol/L (3.5-5.1)
[2017-01-02] MEDS ORDERED: POTASSIUM CHLORIDE 20 MEQ POWDER FOR ORAL SOLN NGT ONE (08:00)
--- NOTE | 2017-01-02 08:04 | RADRPT ---
PROCEDURE: XR Chest. CLINICAL INDICATION: Pneumonia TECHNIQUE: An AP view of the chest was obtained. COMPARISON: Chest x-ray dated 01/01/2017 FINDINGS: The endotracheal tube tip is approximately 4.3 cm above the manolo. The tip of the enteric tube pr ojects over the left upper quadrant. There is a left upper extremity PICC line with tip near the cav oatrial junction. There are bibasilar interstitial opacities with small bilateral pleural effusions. No pneumothorax is seen. The cardiomediastinal silhouette is mildly enlarged . The osseous structures are unremar kable. IMPRESSION: 1. Bibasilar interstitial opacities may reflect a combination of interstitial edema, atelectasis an d / or pneumonia. Findings are mildly increased when compared to the prior examination. 2. Small bilateral pleural effusions, not significantly changed. 3. Mild cardiomegaly. 4. Tubes and lines, as described above. RPTAT: HH .Meenu Javier MD, MD Date Time Electronically viewed and signed by .Meenu Javier MD, MD on 01/02/2017 08:03 .G/
[2017-01-02 08:28] LABS: Allen Test ACCEPTAB; Arterial Base Excess 6.7 mmol/L (-3.0-3); Arterial COHb 0.2 % (0.0-3.0); Arterial Fraction of Oxyhgb 91.6 % (93.0-99.0); Arterial HCO3 30.1 mmol/L (22.0-26.0); Arterial MetHb 0.3 % (0.0-1.5); Arterial Total Hemglobin 10.4 g/dl (12.0-18.0); MODE VENT - AC
--- NOTE | 2017-01-02 08:33 | CONS ---
Date/Time of Note Date/Time of Note DATE: 01/02/17 TIME: 08:31 Assessment/Plan Assessment/Plan Additional Assessment/Plan 1. Positive troponin, assess significance.-no sig uptrend/likely demand event in settng fevers/tachy/resp distress - NO CP, no active ischemia - STABLE 2. Abnormal electrocardiogram with ST depressions with tachycardia and positive troponin, likely indicative of coronary artery disease.-improved ecg findings with improved HR - med rx for - MED RX for now - STABLE, NOT WEANING - MIGHT NEED TRACH 3. Hypertension, uncontrolled mildly still - BP well Rx now 4. Dyslipidemia. 5. Diabetes mellitus - on therapy, keep euglycemic 6. Fevers to 104 documented here in the hospital.-ongoing low grade - con't anti-bx - NOW BETTER 7. Renal failure.-acute on chronic/ ? secondary to vasculitic syndrome 8. Lower extremity edema, assess for congestive heart failure/CHF-diastolic acute on chronic 9. Nausea and vomiting. 10. Chest pain with cough 11.Resp failure s/p intubation - con't resp Rx. 12. Bradycardia-to 40's.Now improved and tolerating BB Consultation Date/Type/Reason Admit Date/Time Dec 15, 2016 at 11:20 Type of Consultation: Rheum Referring Provider: LEXII REED 24 HR Interval Summary Free Text/Dictation NO acute change - ICU care i place - not weaning well ? trach - pulm team aware - BP stable ROS: No fever, no chills, no nausea, no vomiting, no diarrhea/constipation No recent weight changes No chest pain, no PND, no orthopnea No dizziness, blurred vision No thirst, no heat or cold intolerance (per nurse) Exam/Review of Systems Vital Signs Vitals Vital Signs Date Time Temp Pulse Resp B/P Pulse Ox O2 Delivery O2 Flow Rate FiO2 01/02/17 07:30 98.4 62 24 127/64 98 Mechanical Ventilator 01/02/17 07:10 60 Intake and Output 01/01/17 01/01/17 01/02/17 15:00 23:00 07:00 Intake Total 1212.24 ml 1212.265 ml 1019.495 ml Output Total 1225 ml 1460 ml 815 ml Balance -12.76 ml -247.735 ml 204.495 ml Exam General: WN/WD/NAD, AOx 0 HEENT: Unicetric/atraumatic/EOMI (does not follow commands) - intubated NECK: JVD elevated, no thyromegaly Lymph: no lymphadenopathy HEART: regular with no S3, II/ systolic murmur at apex LUNGS: Coarse sounds ABD: soft, NT, ND, +BS : Intact Neuro: non focal SKIN: chronic changes EXT: trace edema Results Result Diagram: 01/02/17 0330 01/02/17 0330 Results 24 hrs Laboratory Tests Test 01/01/17 08:40 01/01/17 12:13 01/01/17 13:25 01/01/17 16:21 Bedside Glucose 199 199 202 Sodium Level 139 Potassium Level 3.4 L Chloride Level 109 Carbon Dioxide Level 29 Anion Gap 4 L Blood Urea Nitrogen 49 H Creatinine 1.24 Glucose Level 223 H Calcium Level 7.3 L Test 01/01/17 20:44 01/02/17 01:20 01/02/17 03:30 01/02/17 04:17 Bedside Glucose 212 195 220 White Blood Count 10.7 Red Blood Count 3.70 L Hemoglobin 10.1 L Hematocrit 31.8 L Mean Corpuscular Volume 85.9 Mean Corpuscular Hemoglobin 27.3 L Mean Corpuscular Hemoglobin Concent 31.8 L Red Cell Distribution Width 12.9 Platelet Count 192 Mean Platelet Volume 12.5 H Neutrophils % 82.1 H Lymphocytes % 11.0 L Monocytes % 4.6 Eosinophils % 1.5 Basophils % 0.1 Nucleated Red Blood Cells % 0.0 Neutrophils # 8.8 H Lymphocytes # 1.2 Monocytes # 0.5 Eosinophils # 0.2 Basophils # 0.0 Nucleated Red Blood Cells # 0.0 Sodium Level 139 Potassium Level 3.2 L Chloride Level 108 Carbon Dioxide Level 29 Anion Gap 5 L Blood Urea Nitrogen 48 H Creatinine 1.22 Glucose Level 198 Calcium Level 7.4 L Phosphorus Level 3.8 Magnesium Level 2.3 Test 01/02/17 07:00 01/02/17 07:51 01/02/17 07:54 Blood Gas Specimen Source Blood arterial Arterial Blood Date Drawn 01/02/2017 8:00:36 AM Arterial Blood pH (Temp corrected) 7.512 H Arterial Blood pCO2 (Temp correct) 38.4 Arterial Blood pO2 (Temp corrected) 63.6 L Arterial Blood HCO3 30.1 H Arterial Blood Base Excess 6.7 H Arterial Blood Oxygen Saturation 92.1 L Leobardo Test ACCEPTAB Arterial Blood Gas Puncture Site Right Radial Arterial Blood Carboxyhemoglobin 0.2 Arterial Blood Methemoglobin 0.3 Blood Gas A-a O2 Differential 322.0 H Oxyhemoglobin Percent 91.6 L Total Hemoglobin 10.4 L Blood Gas Temperature 37.0 Blood Gas Respiration Rate 24.0 Blood Gas Actual Respiration Rate 24 Blood Gas Modality VENT - AC FiO2 60.0 Blood Gas Tidal Volume 500.0 Blood Gas Low PEEP Setting 5.0 Blood Gas Notified Whom JLD Blood Gas Notified Time 01/02/2017 8:28:22 AM Lab Scanned Report REFERENCE LAB REFERENCE LAB Medications Medications Current Medications Ondansetron HCl (Zofran Inj) 4 mg Q6H PRN IV NAUSEA AND/OR VOMITING; Start at 13:00 Acetaminophen (Tylenol Tab) 650 mg Q6H PRN PO PAIN LEVEL 1-3 OR FEVER Last administered on 12/29/16 06:02; Admin Dose 650 MG; Start 12/15/16 at 13:00 Acetaminophen/ Hydrocodone Bitart ([place] (5/325)) 1 tab Q6H PRN PO PAIN LEVEL 4 -6 Last administered on 12/15/16 22:08; Admin Dose 1 TAB; Start 12/15/16 at 13: 00 Morphine Sulfate (morphine) 2 mg Q4H PRN IV PAIN LEVEL 7-10 Last administered on 12/25/16 03:03; Admin Dose 2 MG; Start 12/15/16 at 13:00 Magnesium Hydroxide (Milk Of Mag) 30 ml DAILY PRN PO CONSTIPATION Last administered on 01/02/17 02:07; Admin Dose 30 ML; Start 12/15/16 at 13:00 Bisacodyl (Dulcolax) 5 mg DAILY PRN PO CONSTIPATION; Start 12/15/16 at 13:00 Famotidine (Pepcid) 20 mg Q12 PO Last administered on 01/01/17 20:44; Admin Dose 20 MG; Start 12/15/16 at 21:00 Hydralazine HCl (Apresoline) 10 mg Q6H PRN IV SBP>160 Last administered on 04:53; Admin Dose 10 MG; Start 12/15/16 at 13:00 Aspirin (Aspirin) 325 mg DAILY PO Last administered on 01/01/17 08:43; Admin Dose 325 MG; Start 12/16/16 at 09:00 Atorvastatin Calcium (Lipitor) 80 mg QHS PO Last administered on 01/01/17 20:43 ; Admin Dose 80 MG; Start 12/15/16 at 21:00 Heparin Sodium (Porcine) (Heparin (5000 Units/0.5 ml)) 5,000 unit BID SC Last administered on 01/01/17 20:50; Admin Dose 5,000 UNIT; Start 12/15/16 at 21:00 Miscellaneous Information 1 ea NOTE XX ; Start 12/15/16 at 14:00 Glucose (Glutose) 15 gm Q15M PRN PO DECREASED GLUCOSE; Start 12/15/16 at 14:00 Glucose (Glutose) 22.5 gm Q15M PRN PO DECREASED GLUCOSE; Start 12/15/16 at 14: 00 Glucagon (Glucagen) 1 mg Q15M PRN IM DECREASED GLUCOSE; Start 12/15/16 at 14:00 Glucose (Glutose) 15 gm Q15M PRN BUCCAL DECREASED GLUCOSE; Start 12/15/16 at 14 :00 Cholecalciferol 1000 unit 1,000 unit DAILY PO Last administered on 01/01/17 08: 44; Admin Dose 1,000 UNIT; Start 12/16/16 at 09:00 Fentanyl (Sublimaze) 100 ml @ 2.5 mls/hr TITRATE IV Last administered on 22:03; Admin Dose 10 MLS/HR; Start 12/18/16 at 03:30 Dextrose (D50w Syringe) 25 ml Q15M PRN IV Till BS 80 mg/dL or above x2; Start 12/18/16 at 14:00 Dextrose (D50w Syringe) 50 ml Q15M PRN IV Till BS 80 mg/dL or above x2; Start 12/18/16 at 14:00 IV Flush 10 ml 10 ml PRN PRN IV IV PROTOCOL; Start 12/18/16 at 17:00 Norepinephrine/ Dextrose (Levophed/D5W) 250 ml @ 0.46 mls/hr TITRATE IV ; Start 12/19/16 at 09:30 Amlodipine Besylate 5 mg 5 mg DAILY PO Last administered on 01/01/17 08:43; Admin Dose 5 MG; Start 12/21/16 at 09:00 Midazolam HCl 50 ml @ 1 mls/hr TITRATE IV Last administered on 01/02/17 04:12; Admin Dose 10 MLS/HR; Start 12/20/16 at 14:00 Propofol (Diprivan) 100 ml @ 3.255 mls/ hr Q12H IV Last administered on 06:28; Admin Dose 22.785 MLS/HR; Start 12/20/16 at 20:30 Hydralazine HCl (Apresoline) 10 mg Q4H PRN IV sbp > 160 Last administered on 22:35; Admin Dose 10 MG; Start 12/22/16 at 06:30 Lorazepam (Ativan) 1 mg Q1H PRN IV agitation Last administered on 12/29/16 16: 35; Admin Dose 1 MG; Start 12/25/16 at 03:30 Carvedilol 6.25 mg 6.25 mg BID PO Last administered on 01/01/17 08:43; Admin Dose 6.25 MG; Start 12/25/16 at 21:00 Meropenem 100 ml @ 200 mls/hr Q12 IVPB Last administered on 01/01/17 20:44; Admin Dose 200 MLS/HR; Start 12/28/16 at 13:00 Caspofungin/ Sodium Chloride (Cancidas/NS) 250 ml @ 250 mls/hr Q24H IVPB Last administered on 01/01/17 12:15; Admin Dose 250 MLS/HR; Start 12/29/16 at 12:00 Insulin Aspart (Novolog Insulin Pen) NOVOLOG *MODERATE* ALGORITHM Q4 SC Last administered on 01/02/17 04:20; Admin Dose 4 UNIT; Start 12/29/16 at 09:30 Insulin Glargine (Lantus) 52 unit DAILY@20 SC Last administered on 01/01/17 20: 50; Admin Dose 52 UNIT; Start 12/31/16 at 20:00 Methylprednisolone Sodium Succinate (Solu-Medrol) 40 mg Q12 IV Last administered on 01/01/17 20:45; Admin Dose 40 MG; Start 01/01/17 at 21:00 Hydralazine HCl 100 mg 100 mg Q8 PO Last administered on 01/02/17 05:14; Admin Dose 100 MG; Start 01/01/17 at 14:00 Vancomycin HCl/ Sodium Chloride (Vancocin/NS) 250 ml @ 83.333 mls/ hr Q24H IVPB Last administered on 01/01/17t 17:07; Admin Dose 83.333 MLS/HR; Start at 17:00 Metolazone (Zaroxolyn) 5 mg ONCE PO ; Start 01/02/17 at 09:00; Stop 01/02/17 at 10 :00 DELIA BILLY MD January 02, 2017 08:33
[2017-01-02] MEDS: FENTAnyl (DRIP) 1000 mcg/100mL 100 ML IV SCH ×2 (08:56→19:01)
[2017-01-02] MEDS: MEROPENEM 500 MG/100 ML (PMX) 100 ML IVPB SCH ×2 (08:56→20:52)
[2017-01-02] MEDS: ASPIRIN 325 MG TAB PO SCH (08:59)
[2017-01-02] MEDS: METHYLPREDNISOLONE 125 MG INJ IV SCH ×2 (08:59→20:52)
[2017-01-02] MEDS ORDERED: METOLAZONE 5 MG TAB PO SCH (09:00)
[2017-01-02] MEDS: FAMOTIDINE 20 MG TAB PO SCH ×2 (09:00→20:53)
[2017-01-02] MEDS: CHOLECALCIFEROL 1,000 UNIT TAB PO SCH (09:01)
[2017-01-02] MEDS: AMLODIPINE 5 MG TAB PO SCH (09:01)
[2017-01-02] MEDS: SEVELAMER CARBONATE 0.8 GM PKT PO SCH ×3 (09:01→17:16)
[2017-01-02] MEDS: HEPARIN 5,000 UNIT/0.5 ML VIAL SC SCH ×2 (09:03→21:00)
--- NOTE | 2017-01-02 09:05 | PN ---
DATE: 01/02/2017 SUBJECTIVE: The patient remains critically ill on full ventilator support, although being titrated down. No other events noted. No hemoptysis, hematemesis, or hematochezia. OBJECTIVE: VITAL SIGNS: Blood pressure 133/67, respirations 24, pulse 60, temperature 98.6. I'S AND O'S: The patient had 3.4 L in, 2.5 L out. HEENT: Head is normocephalic. NECK: Supple. HEART: Regular rate. LUNGS: Show diminished breath sounds at the base. ABDOMEN: Soft, nontender to palpation. No rebound or guarding. EXTREMITIES: Negative for clubbing, cyanosis. Positive edema. DERMATOLOGIC: No rashes. MUSCULOSKELETAL: No joint effusions. NEUROLOGIC: No change in exam. MEDICATIONS: The patient's medications have been reviewed. LABORATORY DATA: Shows sodium 139, potassium ____, chloride 108, BUN 48, creatinine 1.22. White co unt 10.7, hemoglobin 10.1, hematocrit 31.8, platelet count is 192. ASSESSMENT AND PLAN: 1. Nonoliguric acute kidney injury with previous baseline creatinine 1.0 mg/dL. Etiology of acute kidney injury is secondary to acute tubular necrosis. The patient's renal function has improved, ap pears to be stabilizing. At this point, continue current treatment plan, supportive care, renally d ose all medications, monitor closely on diuretic therapy. 2. Volume overload secondary to acute kidney injury, diastolic heart failure. The patient remains edematous. The patient was given a course of Diamox. Currently on Lasix 40 mg IV b.i.d. Will add a dose of metolazone to augment diuresis, monitor electrolytes closely. 3. Hypokalemia. We will replete potassium chloride and monitor. 4. Metabolic alkalemia secondary to diuretic therapy. The patient is status post Diamox. We will follow up on ABG. 5. Hypernatremia, improved. Continue free water flushes. 6. Mineral bone disorder. Continue to monitor calcium and phosphorus levels, continue phos binders . 7. Anemia. Continue to monitor hemoglobin and hematocrit levels. 8. Ventilator-dependent respiratory failure. Vent settings reviewed. ABGs reviewed. Continue to monitor. 9. Sepsis secondary to multifocal pneumonia. Continue current antibiotic regimen. 10. Bxd-EL-hlcpojuki myocardial infarction. Continue current treatment plan. 11. Diabetes. Continue Accu-Cheks and insulin sliding scale. 12. Hypertension. Continue current blood pressure regimen. 13. History of polysubstance abuse. 14. Encephalopathy. No change. 15. Positive DAISY with unclear clinical significance, continue to monitor. Please note I spent over 35 minutes of critical care time with this patient. Dictated By: LUIS JOSHI/SUNDEEP Conf#: [id number] DID#: [id number]
--- NOTE | 2017-01-02 10:49 | PN ---
Date/Time of Note Date/Time of Note DATE: 01/02/17 TIME: 10:45 Assessment/Plan VTE Prophylaxis VTE Prophylaxis Intervention: heparin Lines/Catheters IV Catheter Type (from [facility]): PICC Line Central line still needed: Yes Urinary Cath still in place: Yes Reason Cath still needed: urinary retention Assessment/Plan Chief Complaint/Hosp Course A/P: 41 M with: 1. Sepsis secondary to underlying community-acquired pneumonia with septic shock. Currently off pressors. On ABX as per ID. Mycoplasma serology abnormal. 2. Acute hypoxic respiratory failure. Most probably secondary to underlying pneumonia versus others. Patient got intubated on 12/18/2016. Continue inhaled bronchodilators. Pulmonology following the patient. 3. Elevated troponins. Most probably a type 2 event from underlying sepsis and underlying acute kidney injury. Cardiology following. 4. Acute kidney injury. The patient had a normal creatinine of 1.00 on 2015. The patient's current acute kidney injury could be most probably secondary to dehydration from persistent vomiting - improving now. The patient' s nephrotoxic drugs will be held at this time. Being followed by nephrology. 5. Type 2 diabetes mellitus. Uncontrolled. A1C is high (send out). The patient will be maintained on sliding scale insulin along with basal insulin. 6. Dyslipidemia. Continue statins. 7. Essential hypertension. Continue antihypertensives. 8. Hypocalcemia. Probably secondary to underlying hypoalbuminemia. 9. Microcytic, hypochromic anemia. Etiology unclear. Iron panel showing iron deficiency. Continue iron supplements. 10. Vitamin D deficiency. Continue supplements. 11. Fluids, electrolytes, and nutrition. Tube feedings. 12. DVT prophylaxis. Subcutaneous heparin. 13. Gastrointestinal prophylaxis. Histamine 2 receptor blockers. 14. Plan. Continue antibiotics. Continue ventilator support. Ventilator weaning as per Pulmonary. Adjust insulin to obtain optimal blood sugar control. Critical care time: 35 minutes. Problems: Subjective 24 Hr Interval Summary Free Text/Dictation No acute events overnight, still intubated. Exam/Review of Systems Vital Signs Vitals Vital Signs Date Time Temp Pulse Resp B/P Pulse Ox O2 Delivery O2 Flow Rate FiO2 01/02/17 09:00 61 18 113/60 96 Mechanical Ventilator 01/02/17 08:50 50 01/02/17 07:30 98.4 Intake and Output 01/01/17 01/01/17 01/02/17 15:00 23:00 07:00 Intake Total 1212.24 ml 1212.265 ml 1019.495 ml Output Total 1225 ml 1460 ml 815 ml Balance -12.76 ml -247.735 ml 204.495 ml Exam GENERAL: This is a morbidly obese male lying in bed, orally intubated and mechanically ventilated. HEENT: Head normocephalic and atraumatic. Eyes: Anicteric sclerae. Conjunctivae clear. ENT: Nasal septum is midline. Oral mucosa is dry. NECK: Short with increased neck circumference. RESPIRATORY: Bilaterally diminished breath sounds. On mechanical ventilator. CARDIAC: Regular rate and rhythm. S1, S2 heard. ABDOMEN: Soft, nontender and nondistended. Bowel sounds positive in all 4 quadrants. EXTREMITIES: No cyanosis, no clubbing. B/L LE edema. Pedal pulses palpable. Status post left great toe amputation. NEUROLOGIC: The patient is sedated. Results Result Diagram: 01/02/17 0330 01/02/17 0330 Results 24 hrs Laboratory Tests Test 01/01/17 12:13 01/01/17 13:25 01/01/17 16:21 01/01/17 20:44 Bedside Glucose 199 202 212 Sodium Level 139 Potassium Level 3.4 L Chloride Level 109 Carbon Dioxide Level 29 Anion Gap 4 L Blood Urea Nitrogen 49 H Creatinine 1.24 Glucose Level 223 H Calcium Level 7.3 L Test 01/02/17 01:20 01/02/17 03:30 01/02/17 04:17 01/02/17 07:00 Bedside Glucose 195 220 White Blood Count 10.7 Red Blood Count 3.70 L Hemoglobin 10.1 L Hematocrit 31.8 L Mean Corpuscular Volume 85.9 Mean Corpuscular Hemoglobin 27.3 L Mean Corpuscular Hemoglobin Concent 31.8 L Red Cell Distribution Width 12.9 Platelet Count 192 Mean Platelet Volume 12.5 H Neutrophils % 82.1 H Lymphocytes % 11.0 L Monocytes % 4.6 Eosinophils % 1.5 Basophils % 0.1 Nucleated Red Blood Cells % 0.0 Neutrophils # 8.8 H Lymphocytes # 1.2 Monocytes # 0.5 Eosinophils # 0.2 Basophils # 0.0 Nucleated Red Blood Cells # 0.0 Sodium Level 139 Potassium Level 3.2 L Chloride Level 108 Carbon Dioxide Level 29 Anion Gap 5 L Blood Urea Nitrogen 48 H Creatinine 1.22 Glucose Level 198 Calcium Level 7.4 L Phosphorus Level 3.8 Magnesium Level 2.3 Blood Gas Specimen Source Blood arterial Arterial Blood Date Drawn 01/02/2017 8:00:36 AM Arterial Blood pH (Temp corrected) 7.512 H Arterial Blood pCO2 (Temp correct) 38.4 Arterial Blood pO2 (Temp corrected) 63.6 L Arterial Blood HCO3 30.1 H Arterial Blood Base Excess 6.7 H Arterial Blood Oxygen Saturation 92.1 L Leobardo Test ACCEPTAB Arterial Blood Gas Puncture Site Right Radial Arterial Blood Carboxyhemoglobin 0.2 Arterial Blood Methemoglobin 0.3 Blood Gas A-a O2 Differential 322.0 H Oxyhemoglobin Percent 91.6 L Total Hemoglobin 10.4 L Blood Gas Temperature 37.0 Blood Gas Respiration Rate 24.0 Blood Gas Actual Respiration Rate 24 Blood Gas Modality VENT - AC FiO2 60.0 Blood Gas Tidal Volume 500.0 Blood Gas Low PEEP Setting 5.0 Blood Gas Notified Whom JLD Blood Gas Notified Time 01/02/2017 8:28:22 AM Test 01/02/17 07:51 01/02/17 07:54 01/02/17 08:55 Lab Scanned Report REFERENCE LAB REFERENCE LAB Bedside Glucose 146 Medications Medications Current Medications Ondansetron HCl (Zofran Inj) 4 mg Q6H PRN IV NAUSEA AND/OR VOMITING; Start at 13:00 Acetaminophen (Tylenol Tab) 650 mg Q6H PRN PO PAIN LEVEL 1-3 OR FEVER Last administered on 12/29/16 06:02; Admin Dose 650 MG; Start 12/15/16 at 13:00 Acetaminophen/ Hydrocodone Bitart ([place] (5/325)) 1 tab Q6H PRN PO PAIN LEVEL 4 -6 Last administered on 12/15/16 22:08; Admin Dose 1 TAB; Start 12/15/16 at 13: 00 Morphine Sulfate (morphine) 2 mg Q4H PRN IV PAIN LEVEL 7-10 Last administered on 12/25/16 03:03; Admin Dose 2 MG; Start 12/15/16 at 13:00 Magnesium Hydroxide (Milk Of Mag) 30 ml DAILY PRN PO CONSTIPATION Last administered on 01/02/17 02:07; Admin Dose 30 ML; Start 12/15/16 at 13:00 Bisacodyl (Dulcolax) 5 mg DAILY PRN PO CONSTIPATION; Start 12/15/16 at 13:00 Famotidine (Pepcid) 20 mg Q12 PO Last administered on 01/02/17 09:00; Admin Dose 20 MG; Start 12/15/16 at 21:00 Hydralazine HCl (Apresoline) 10 mg Q6H PRN IV SBP>160 Last administered on 04:53; Admin Dose 10 MG; Start 12/15/16 at 13:00 Aspirin (Aspirin) 325 mg DAILY PO Last administered on 01/02/17 08:59; Admin Dose 325 MG; Start 12/16/16 at 09:00 Atorvastatin Calcium (Lipitor) 80 mg QHS PO Last administered on 01/01/17 20:43 ; Admin Dose 80 MG; Start 12/15/16 at 21:00 Heparin Sodium (Porcine) (Heparin (5000 Units/0.5 ml)) 5,000 unit BID SC Last administered on 01/02/17 09:03; Admin Dose 5,000 UNIT; Start 12/15/16 at 21:00 Miscellaneous Information 1 ea NOTE XX ; Start 12/15/16 at 14:00 Glucose (Glutose) 15 gm Q15M PRN PO DECREASED GLUCOSE; Start 12/15/16 at 14:00 Glucose (Glutose) 22.5 gm Q15M PRN PO DECREASED GLUCOSE; Start 12/15/16 at 14: 00 Glucagon (Glucagen) 1 mg Q15M PRN IM DECREASED GLUCOSE; Start 12/15/16 at 14:00 Glucose (Glutose) 15 gm Q15M PRN BUCCAL DECREASED GLUCOSE; Start 12/15/16 at 14 :00 Cholecalciferol 1000 unit 1,000 unit DAILY PO Last administered on 01/02/17 09: 01; Admin Dose 1,000 UNIT; Start 12/16/16 at 09:00 Fentanyl (Sublimaze) 100 ml @ 2.5 mls/hr TITRATE IV Last administered on 08:56; Admin Dose 10 MLS/HR; Start 12/18/16 at 03:30 Dextrose (D50w Syringe) 25 ml Q15M PRN IV Till BS 80 mg/dL or above x2; Start 12/18/16 at 14:00 Dextrose (D50w Syringe) 50 ml Q15M PRN IV Till BS 80 mg/dL or above x2; Start 12/18/16 at 14:00 IV Flush 10 ml 10 ml PRN PRN IV IV PROTOCOL; Start 12/18/16 at 17:00 Norepinephrine/ Dextrose (Levophed/D5W) 250 ml @ 0.46 mls/hr TITRATE IV ; Start 12/19/16 at 09:30 Amlodipine Besylate 5 mg 5 mg DAILY PO Last administered on 01/02/17 09:01; Admin Dose 5 MG; Start 12/21/16 at 09:00 Midazolam HCl 50 ml @ 1 mls/hr TITRATE IV Last administered on 01/02/17 10:10; Admin Dose 8 MLS/HR; Start 12/20/16 at 14:00 Propofol (Diprivan) 100 ml @ 3.255 mls/ hr Q12H IV Last administered on 06:28; Admin Dose 22.785 MLS/HR; Start 12/20/16 at 20:30 Hydralazine HCl (Apresoline) 10 mg Q4H PRN IV sbp > 160 Last administered on 22:35; Admin Dose 10 MG; Start 12/22/16 at 06:30 Lorazepam (Ativan) 1 mg Q1H PRN IV agitation Last administered on 12/29/16 16: 35; Admin Dose 1 MG; Start 12/25/16 at 03:30 Carvedilol 6.25 mg 6.25 mg BID PO Last administered on 01/02/17 09:00; Admin Dose 6.25 MG; Start 12/25/16 at 21:00 Meropenem 100 ml @ 200 mls/hr Q12 IVPB Last administered on 01/02/17 08:56; Admin Dose 200 MLS/HR; Start 12/28/16 at 13:00 Caspofungin/ Sodium Chloride (Cancidas/NS) 250 ml @ 250 mls/hr Q24H IVPB Last administered on 01/01/17 12:15; Admin Dose 250 MLS/HR; Start 12/29/16 at 12:00 Insulin Aspart (Novolog Insulin Pen) NOVOLOG *MODERATE* ALGORITHM Q4 SC Last administered on 01/02/17 09:05; Admin Dose 2 UNIT; Start 12/29/16 at 09:30 Insulin Glargine (Lantus) 52 unit DAILY@20 SC Last administered on 01/01/17 20: 50; Admin Dose 52 UNIT; Start 12/31/16 at 20:00 Methylprednisolone Sodium Succinate (Solu-Medrol) 40 mg Q12 IV Last administered on 01/02/17 08:59; Admin Dose 40 MG; Start 01/01/17 at 21:00 Hydralazine HCl 100 mg 100 mg Q8 PO Last administered on 01/02/17 05:14; Admin Dose 100 MG; Start 01/01/17 at 14:00 Vancomycin HCl/ Sodium Chloride (Vancocin/NS) 250 ml @ 83.333 mls/ hr Q24H IVPB Last administered on 01/01/17 17:07; Admin Dose 83.333 MLS/HR; Start at 17:00 CLARITA VERMA January 02, 2017 10:49
--- NOTE | 2017-01-02 11:13 | CONS ---
Date/Time of Note Date/Time of Note DATE: 01/02/17 TIME: 11:12 Consult Date/Type/Reason Admit Date/Time Dec 15, 2016 at 11:20 Type of Consultation: pulmonary ICU Ordering Provider: LEXII REED Subjective Patient remains stable mechanical ventilation FiO2 at 60% decreased to 50% PEEP of 5, started on diuretics yesterday. Objective Vital Signs Date Time Temp Pulse Resp B/P Pulse Ox O2 Delivery O2 Flow Rate FiO2 01/02/17 10:30 61 18 108/54 95 Mechanical Ventilator 01/02/17 08:50 50 01/02/17 07:30 98.4 Intake and Output 01/01/17 01/01/17 01/02/17 15:00 23:00 07:00 Intake Total 1212.24 ml 1212.265 ml 1019.495 ml Output Total 1225 ml 1460 ml 815 ml Balance -12.76 ml -247.735 ml 204.495 ml Exam PHYSICAL EXAMINATION GENERAL: Young gentleman intubated sedated on mechanical ventilation VITAL SIGNS: see below. HEENT: Pupils equal, round, and reactive to light. CARDIAC: S1, S2, no added sounds or murmurs CHEST: Diminished air entry bilaterally. ABDOMEN: Mildly distended. Bowel sounds present. EXTREMITIES: No cyanosis, clubbing edema +1 NEUROLOGIC: Unable to assess Results/Medications Result Diagram: 01/02/17 0330 01/02/17 0330 Results 24 hrs Chest x-ray Right pleural effusion Laboratory Tests Test 01/01/17 12:13 01/01/17 13:25 01/01/17 16:21 01/01/17 20:44 Bedside Glucose 199 202 212 Sodium Level 139 Potassium Level 3.4 L Chloride Level 109 Carbon Dioxide Level 29 Anion Gap 4 L Blood Urea Nitrogen 49 H Creatinine 1.24 Glucose Level 223 H Calcium Level 7.3 L Test 01/02/17 01:20 01/02/17 03:30 01/02/17 04:17 01/02/17 07:00 Bedside Glucose 195 220 White Blood Count 10.7 Red Blood Count 3.70 L Hemoglobin 10.1 L Hematocrit 31.8 L Mean Corpuscular Volume 85.9 Mean Corpuscular Hemoglobin 27.3 L Mean Corpuscular Hemoglobin Concent 31.8 L Red Cell Distribution Width 12.9 Platelet Count 192 Mean Platelet Volume 12.5 H Neutrophils % 82.1 H Lymphocytes % 11.0 L Monocytes % 4.6 Eosinophils % 1.5 Basophils % 0.1 Nucleated Red Blood Cells % 0.0 Neutrophils # 8.8 H Lymphocytes # 1.2 Monocytes # 0.5 Eosinophils # 0.2 Basophils # 0.0 Nucleated Red Blood Cells # 0.0 Sodium Level 139 Potassium Level 3.2 L Chloride Level 108 Carbon Dioxide Level 29 Anion Gap 5 L Blood Urea Nitrogen 48 H Creatinine 1.22 Glucose Level 198 Calcium Level 7.4 L Phosphorus Level 3.8 Magnesium Level 2.3 Blood Gas Specimen Source Blood arterial Arterial Blood Date Drawn 01/02/2017 8:00:36 AM Arterial Blood pH (Temp corrected) 7.512 H Arterial Blood pCO2 (Temp correct) 38.4 Arterial Blood pO2 (Temp corrected) 63.6 L Arterial Blood HCO3 30.1 H Arterial Blood Base Excess 6.7 H Arterial Blood Oxygen Saturation 92.1 L Leobardo Test ACCEPTAB Arterial Blood Gas Puncture Site Right Radial Arterial Blood Carboxyhemoglobin 0.2 Arterial Blood Methemoglobin 0.3 Blood Gas A-a O2 Differential 322.0 H Oxyhemoglobin Percent 91.6 L Total Hemoglobin 10.4 L Blood Gas Temperature 37.0 Blood Gas Respiration Rate 24.0 Blood Gas Actual Respiration Rate 24 Blood Gas Modality VENT - AC FiO2 60.0 Blood Gas Tidal Volume 500.0 Blood Gas Low PEEP Setting 5.0 Blood Gas Notified Whom JLD Blood Gas Notified Time 01/02/2017 8:28:22 AM Test 01/02/17 07:51 01/02/17 07:54 01/02/17 08:55 Lab Scanned Report REFERENCE LAB REFERENCE LAB Bedside Glucose 146 Medications Current Medications Ondansetron HCl (Zofran Inj) 4 mg Q6H PRN IV NAUSEA AND/OR VOMITING; Start at 13:00 Acetaminophen (Tylenol Tab) 650 mg Q6H PRN PO PAIN LEVEL 1-3 OR FEVER Last administered on 12/29/16 06:02; Admin Dose 650 MG; Start 12/15/16 at 13:00 Acetaminophen/ Hydrocodone Bitart ([place] (5/325)) 1 tab Q6H PRN PO PAIN LEVEL 4 -6 Last administered on 12/15/16 22:08; Admin Dose 1 TAB; Start 12/15/16 at 13: 00 Morphine Sulfate (morphine) 2 mg Q4H PRN IV PAIN LEVEL 7-10 Last administered on 12/25/16 03:03; Admin Dose 2 MG; Start 12/15/16 at 13:00 Magnesium Hydroxide (Milk Of Mag) 30 ml DAILY PRN PO CONSTIPATION Last administered on 01/02/17 02:07; Admin Dose 30 ML; Start 12/15/16 at 13:00 Bisacodyl (Dulcolax) 5 mg DAILY PRN PO CONSTIPATION; Start 12/15/16 at 13:00 Famotidine (Pepcid) 20 mg Q12 PO Last administered on 01/02/17 09:00; Admin Dose 20 MG; Start 12/15/16 at 21:00 Hydralazine HCl (Apresoline) 10 mg Q6H PRN IV SBP>160 Last administered on 04:53; Admin Dose 10 MG; Start 12/15/16 at 13:00 Aspirin (Aspirin) 325 mg DAILY PO Last administered on 01/02/17 08:59; Admin Dose 325 MG; Start 12/16/16 at 09:00 Atorvastatin Calcium (Lipitor) 80 mg QHS PO Last administered on 01/01/17 20:43 ; Admin Dose 80 MG; Start 12/15/16 at 21:00 Heparin Sodium (Porcine) (Heparin (5000 Units/0.5 ml)) 5,000 unit BID SC Last administered on 01/02/17 09:03; Admin Dose 5,000 UNIT; Start 12/15/16 at 21:00 Miscellaneous Information 1 ea NOTE XX ; Start 12/15/16 at 14:00 Glucose (Glutose) 15 gm Q15M PRN PO DECREASED GLUCOSE; Start 12/15/16 at 14:00 Glucose (Glutose) 22.5 gm Q15M PRN PO DECREASED GLUCOSE; Start 12/15/16 at 14: 00 Glucagon (Glucagen) 1 mg Q15M PRN IM DECREASED GLUCOSE; Start 12/15/16 at 14:00 Glucose (Glutose) 15 gm Q15M PRN BUCCAL DECREASED GLUCOSE; Start 12/15/16 at 14 :00 Cholecalciferol 1000 unit 1,000 unit DAILY PO Last administered on 01/02/17 09: 01; Admin Dose 1,000 UNIT; Start 12/16/16 at 09:00 Fentanyl (Sublimaze) 100 ml @ 2.5 mls/hr TITRATE IV Last administered on 08:56; Admin Dose 10 MLS/HR; Start 12/18/16 at 03:30 Dextrose (D50w Syringe) 25 ml Q15M PRN IV Till BS 80 mg/dL or above x2; Start 12/18/16 at 14:00 Dextrose (D50w Syringe) 50 ml Q15M PRN IV Till BS 80 mg/dL or above x2; Start 12/18/16 at 14:00 IV Flush 10 ml 10 ml PRN PRN IV IV PROTOCOL; Start 12/18/16 at 17:00 Norepinephrine/ Dextrose (Levophed/D5W) 250 ml @ 0.46 mls/hr TITRATE IV ; Start 12/19/16 at 09:30 Amlodipine Besylate 5 mg 5 mg DAILY PO Last administered on 01/02/17 09:01; Admin Dose 5 MG; Start 12/21/16 at 09:00 Midazolam HCl 50 ml @ 1 mls/hr TITRATE IV Last administered on 01/02/17 10:10; Admin Dose 8 MLS/HR; Start 12/20/16 at 14:00 Propofol (Diprivan) 100 ml @ 3.255 mls/ hr Q12H IV Last administered on 06:28; Admin Dose 22.785 MLS/HR; Start 12/20/16 at 20:30 Hydralazine HCl (Apresoline) 10 mg Q4H PRN IV sbp > 160 Last administered on 22:35; Admin Dose 10 MG; Start 12/22/16 at 06:30 Lorazepam (Ativan) 1 mg Q1H PRN IV agitation Last administered on 12/29/16 16: 35; Admin Dose 1 MG; Start 12/25/16 at 03:30 Carvedilol 6.25 mg 6.25 mg BID PO Last administered on 01/02/17 09:00; Admin Dose 6.25 MG; Start 12/25/16 at 21:00 Meropenem 100 ml @ 200 mls/hr Q12 IVPB Last administered on 01/02/17 08:56; Admin Dose 200 MLS/HR; Start 12/28/16 at 13:00 Caspofungin/ Sodium Chloride (Cancidas/NS) 250 ml @ 250 mls/hr Q24H IVPB Last administered on 01/01/17 12:15; Admin Dose 250 MLS/HR; Start 12/29/16 at 12:00 Insulin Aspart (Novolog Insulin Pen) NOVOLOG *MODERATE* ALGORITHM Q4 SC Last administered on 01/02/17 09:05; Admin Dose 2 UNIT; Start 12/29/16 at 09:30 Insulin Glargine (Lantus) 52 unit DAILY@20 SC Last administered on 01/01/17 20: 50; Admin Dose 52 UNIT; Start 12/31/16 at 20:00 Methylprednisolone Sodium Succinate (Solu-Medrol) 40 mg Q12 IV Last administered on 01/02/17 08:59; Admin Dose 40 MG; Start 01/01/17 at 21:00 Hydralazine HCl 100 mg 100 mg Q8 PO Last administered on 01/02/17 05:14; Admin Dose 100 MG; Start 01/01/17 at 14:00 Vancomycin HCl/ Sodium Chloride (Vancocin/NS) 250 ml @ 83.333 mls/ hr Q24H IVPB Last administered on 01/01/17 17:07; Admin Dose 83.333 MLS/HR; Start at 17:00 Assessment/Plan Chief Complaint/Hosp Course Assessment 1. Acute hypoxemic respiratory failure possible healthcare associated pneumonia with underlying pulmonary edema now increasing right pleural effusion 2. Workup for vasculitis will decrease steroids. Appreciate rheumatology recommendations. 3. Diabetes mellitus 4. Renal insufficiency possible ATN injury improved Plan 1. Continue mechanical ventilation FiO2 decreased and PEEP is decreased, thoracentesis right pleural effusion with pleural fluid studies 2. Decrease FiO2 as tolerated 3. Continue low-dose steroids 4. Continue broad-spectrum antibiotics 5. Diuretics as tolerated Disposition Continue ICU care Discussed with at bedside Patient better today hopefully will continue to improve when I can attempt CPAP weaning trial Problems: VERO SOTO MD, [facility] January 02, 2017 11:13
[2017-01-02] MEDS: CASPOFUNGIN 50 MG in SOD CHLORIDE 0.9% 250 ML IVPB SCH (11:17)
--- NOTE | 2017-01-02 13:13 | CONS ---
Date/Time of Note Date/Time of Note DATE: 01/02/17 TIME: 13:12 Assessment/Plan Assessment/Plan Chief Complaint/Hosp Course SUBJECTIVE: No events overnight. The patient remains intubated, no fevers, nad MICROBIOLOGY: Blood culture on 12/27/2016 remain negative. Urine culture grew Estrellita albicans. Sputum culture growing coagulase-negative staph and Estrellita albicans and Estrellita glabrata. INDWELLINGS: Endotracheal tube, NG tube, Ritchie catheter, PICC line. ANTIMICROBIALS: 1. Vancomycin. 2. Cancidas. 3. Meropenem. PHYSICAL EXAMINATION: GENERAL: This is an obese, well-developed, middle-aged man who is in no distress. HEENT: Head atraumatic, normocephalic. Sclerae anicteric. Buccal mucosa dry. NECK: Supple, trachea midline. CHEST: Rise symmetrical. Breath sounds diminished at the bases. HEART: S1, S2. ABDOMEN: Soft. Bowel tones present. EXTREMITIES: Without cyanosis. Bilateral trace edema. ASSESSMENT: 1. Acute hypoxemic respiratory failure. 2. Multilobular pneumonia. 3. ARDS. 4. Acute renal failure. 5. Persistent leukocytosis, patient is on Solu-Medrol every 8 hours IV. 6. Positive DAISY, significance unclear, no evidence of vasculitis per rheumatology note. 7. Diabetes. 8. Urinary tract infection. PLAN: The patient remains hemodynamically stable. Continue ;present care, antibiotics. Vent per pulmonary. Plan for thoracentesis and pleural fluid studies DW staff Problems: Consultation Date/Type/Reason Admit Date/Time Dec 15, 2016 at 11:20 Type of Consultation: ID Referring Provider: LEXII REED Exam/Review of Systems Vital Signs Vitals Vital Signs Date Time Temp Pulse Resp B/P Pulse Ox O2 Delivery O2 Flow Rate FiO2 01/02/17 12:55 65 18 93 70 01/02/17 12:00 98.7 127/69 Mechanical Ventilator Intake and Output 01/01/17 01/01/17 01/02/17 15:00 23:00 07:00 Intake Total 1212.24 ml 1212.265 ml 1019.495 ml Output Total 1225 ml 1460 ml 815 ml Balance -12.76 ml -247.735 ml 204.495 ml Results Result Diagram: 01/02/17 0330 01/02/17 0330 Results 24 hrs Laboratory Tests Test 01/01/17 13:25 01/01/17 16:21 01/01/17 20:44 01/02/17 01:20 Sodium Level 139 Potassium Level 3.4 L Chloride Level 109 Carbon Dioxide Level 29 Anion Gap 4 L Blood Urea Nitrogen 49 H Creatinine 1.24 Glucose Level 223 H Calcium Level 7.3 L Bedside Glucose 202 212 195 Test 01/02/17 03:30 01/02/17 04:17 01/02/17 07:00 01/02/17 07:51 White Blood Count 10.7 Red Blood Count 3.70 L Hemoglobin 10.1 L Hematocrit 31.8 L Mean Corpuscular Volume 85.9 Mean Corpuscular Hemoglobin 27.3 L Mean Corpuscular Hemoglobin Concent 31.8 L Red Cell Distribution Width 12.9 Platelet Count 192 Mean Platelet Volume 12.5 H Neutrophils % 82.1 H Lymphocytes % 11.0 L Monocytes % 4.6 Eosinophils % 1.5 Basophils % 0.1 Nucleated Red Blood Cells % 0.0 Neutrophils # 8.8 H Lymphocytes # 1.2 Monocytes # 0.5 Eosinophils # 0.2 Basophils # 0.0 Nucleated Red Blood Cells # 0.0 Sodium Level 139 Potassium Level 3.2 L Chloride Level 108 Carbon Dioxide Level 29 Anion Gap 5 L Blood Urea Nitrogen 48 H Creatinine 1.22 Glucose Level 198 Calcium Level 7.4 L Phosphorus Level 3.8 Magnesium Level 2.3 Bedside Glucose 220 Blood Gas Specimen Source Blood arterial Arterial Blood Date Drawn 01/02/2017 8:00:36 AM Arterial Blood pH (Temp corrected) 7.512 H Arterial Blood pCO2 (Temp correct) 38.4 Arterial Blood pO2 (Temp corrected) 63.6 L Arterial Blood HCO3 30.1 H Arterial Blood Base Excess 6.7 H Arterial Blood Oxygen Saturation 92.1 L Leobardo Test ACCEPTAB Arterial Blood Gas Puncture Site Right Radial Arterial Blood Carboxyhemoglobin 0.2 Arterial Blood Methemoglobin 0.3 Blood Gas A-a O2 Differential 322.0 H Oxyhemoglobin Percent 91.6 L Total Hemoglobin 10.4 L Blood Gas Temperature 37.0 Blood Gas Respiration Rate 24.0 Blood Gas Actual Respiration Rate 24 Blood Gas Modality VENT - AC FiO2 60.0 Blood Gas Tidal Volume 500.0 Blood Gas Low PEEP Setting 5.0 Blood Gas Notified Whom JLD Blood Gas Notified Time 01/02/2017 8:28:22 AM Lab Scanned Report REFERENCE LAB Test 01/02/17 07:54 01/02/17 08:55 01/02/17 12:31 Lab Scanned Report REFERENCE LAB Bedside Glucose 146 145 Medications Medications Current Medications Ondansetron HCl (Zofran Inj) 4 mg Q6H PRN IV NAUSEA AND/OR VOMITING; Start at 13:00 Acetaminophen (Tylenol Tab) 650 mg Q6H PRN PO PAIN LEVEL 1-3 OR FEVER Last administered on 12/29/16 06:02; Admin Dose 650 MG; Start 12/15/16 at 13:00 Acetaminophen/ Hydrocodone Bitart ([place] (5/325)) 1 tab Q6H PRN PO PAIN LEVEL 4 -6 Last administered on 12/15/16 22:08; Admin Dose 1 TAB; Start 12/15/16 at 13: 00 Morphine Sulfate (morphine) 2 mg Q4H PRN IV PAIN LEVEL 7-10 Last administered on 12/25/16 03:03; Admin Dose 2 MG; Start 12/15/16 at 13:00 Magnesium Hydroxide (Milk Of Mag) 30 ml DAILY PRN PO CONSTIPATION Last administered on 01/02/17 02:07; Admin Dose 30 ML; Start 12/15/16 at 13:00 Bisacodyl (Dulcolax) 5 mg DAILY PRN PO CONSTIPATION; Start 12/15/16 at 13:00 Famotidine (Pepcid) 20 mg Q12 PO Last administered on 01/02/17 09:00; Admin Dose 20 MG; Start 12/15/16 at 21:00 Hydralazine HCl (Apresoline) 10 mg Q6H PRN IV SBP>160 Last administered on 04:53; Admin Dose 10 MG; Start 12/15/16 at 13:00 Aspirin (Aspirin) 325 mg DAILY PO Last administered on 01/02/17 08:59; Admin Dose 325 MG; Start 12/16/16 at 09:00 Atorvastatin Calcium (Lipitor) 80 mg QHS PO Last administered on 01/01/17 20:43 ; Admin Dose 80 MG; Start 12/15/16 at 21:00 Heparin Sodium (Porcine) (Heparin (5000 Units/0.5 ml)) 5,000 unit BID SC Last administered on 01/02/17 09:03; Admin Dose 5,000 UNIT; Start 12/15/16 at 21:00 Miscellaneous Information 1 ea NOTE XX ; Start 12/15/16 at 14:00 Glucose (Glutose) 15 gm Q15M PRN PO DECREASED GLUCOSE; Start 12/15/16 at 14:00 Glucose (Glutose) 22.5 gm Q15M PRN PO DECREASED GLUCOSE; Start 12/15/16 at 14: 00 Glucagon (Glucagen) 1 mg Q15M PRN IM DECREASED GLUCOSE; Start 12/15/16 at 14:00 Glucose (Glutose) 15 gm Q15M PRN BUCCAL DECREASED GLUCOSE; Start 12/15/16 at 14 :00 Cholecalciferol 1000 unit 1,000 unit DAILY PO Last administered on 01/02/17 09: 01; Admin Dose 1,000 UNIT; Start 12/16/16 at 09:00 Fentanyl (Sublimaze) 100 ml @ 2.5 mls/hr TITRATE IV Last administered on 08:56; Admin Dose 10 MLS/HR; Start 12/18/16 at 03:30 Dextrose (D50w Syringe) 25 ml Q15M PRN IV Till BS 80 mg/dL or above x2; Start 12/18/16 at 14:00 Dextrose (D50w Syringe) 50 ml Q15M PRN IV Till BS 80 mg/dL or above x2; Start 12/18/16 at 14:00 IV Flush 10 ml 10 ml PRN PRN IV IV PROTOCOL; Start 12/18/16 at 17:00 Norepinephrine/ Dextrose (Levophed/D5W) 250 ml @ 0.46 mls/hr TITRATE IV ; Start 12/19/16 at 09:30 Amlodipine Besylate 5 mg 5 mg DAILY PO Last administered on 01/02/17 09:01; Admin Dose 5 MG; Start 12/21/16 at 09:00 Midazolam HCl 50 ml @ 1 mls/hr TITRATE IV Last administered on 01/02/17 10:10; Admin Dose 8 MLS/HR; Start 12/20/16 at 14:00 Propofol (Diprivan) 100 ml @ 3.255 mls/ hr Q12H IV Last administered on 11:17; Admin Dose 13.02 MLS/HR; Start 12/20/16 at 20:30 Hydralazine HCl (Apresoline) 10 mg Q4H PRN IV sbp > 160 Last administered on 22:35; Admin Dose 10 MG; Start 12/22/16 at 06:30 Lorazepam (Ativan) 1 mg Q1H PRN IV agitation Last administered on 12/29/16 16: 35; Admin Dose 1 MG; Start 12/25/16 at 03:30 Carvedilol 6.25 mg 6.25 mg BID PO Last administered on 01/02/17 09:00; Admin Dose 6.25 MG; Start 12/25/16 at 21:00 Meropenem 100 ml @ 200 mls/hr Q12 IVPB Last administered on 01/02/17 08:56; Admin Dose 200 MLS/HR; Start 12/28/16 at 13:00 Caspofungin/ Sodium Chloride (Cancidas/NS) 250 ml @ 250 mls/hr Q24H IVPB Last administered on 01/02/17 11:17; Admin Dose 250 MLS/HR; Start 12/29/16 at 12:00 Insulin Aspart (Novolog Insulin Pen) NOVOLOG *MODERATE* ALGORITHM Q4 SC Last administered on 01/02/17 12:32; Admin Dose 2 UNIT; Start 12/29/16 at 09:30 Insulin Glargine (Lantus) 52 unit DAILY@20 SC Last administered on 01/01/17 20: 50; Admin Dose 52 UNIT; Start 12/31/16 at 20:00 Methylprednisolone Sodium Succinate (Solu-Medrol) 40 mg Q12 IV Last administered on 01/02/17 08:59; Admin Dose 40 MG; Start 01/01/17 at 21:00 Hydralazine HCl 100 mg 100 mg Q8 PO Last administered on 01/02/17 05:14; Admin Dose 100 MG; Start 01/01/17 at 14:00 Vancomycin HCl/ Sodium Chloride (Vancocin/NS) 250 ml @ 83.333 mls/ hr Q24H IVPB Last administered on 01/01/17 17:07; Admin Dose 83.333 MLS/HR; Start at 17:00 YOLETTE RODRIGUEZ NP January 02, 2017 13:13
--- NOTE | 2017-01-02 13:41 | CONS ---
Date/Time of Note Date/Time of Note DATE: 01/02/17 TIME: 13:37 Consult Date/Type/Reason Admit Date/Time Dec 15, 2016 at 11:20 Type of Consultation: Rheum Ordering Provider: LEXII REED Subjective Continues sedated and intubated. Objective Vital Signs Date Time Temp Pulse Resp B/P Pulse Ox O2 Delivery O2 Flow Rate FiO2 01/02/17 12:55 65 18 93 70 01/02/17 12:00 98.7 127/69 Mechanical Ventilator Intake and Output 01/01/17 01/01/17 01/02/17 15:00 23:00 07:00 Intake Total 1212.24 ml 1212.265 ml 1019.495 ml Output Total 1225 ml 1460 ml 815 ml Balance -12.76 ml -247.735 ml 204.495 ml Exam Continues sedated, intubated. Skin without new acute lesions. Chest scattered crackles. Heart RRR Abd soft. Ext. No synovitis Results/Medications Result Diagram: 01/02/17 0330 01/02/17 0330 Results 24 hrs Laboratory Tests Test 01/01/17 16:21 01/01/17 20:44 01/02/17 01:20 01/02/17 03:30 Bedside Glucose 202 212 195 White Blood Count 10.7 Red Blood Count 3.70 L Hemoglobin 10.1 L Hematocrit 31.8 L Mean Corpuscular Volume 85.9 Mean Corpuscular Hemoglobin 27.3 L Mean Corpuscular Hemoglobin Concent 31.8 L Red Cell Distribution Width 12.9 Platelet Count 192 Mean Platelet Volume 12.5 H Neutrophils % 82.1 H Lymphocytes % 11.0 L Monocytes % 4.6 Eosinophils % 1.5 Basophils % 0.1 Nucleated Red Blood Cells % 0.0 Neutrophils # 8.8 H Lymphocytes # 1.2 Monocytes # 0.5 Eosinophils # 0.2 Basophils # 0.0 Nucleated Red Blood Cells # 0.0 Sodium Level 139 Potassium Level 3.2 L Chloride Level 108 Carbon Dioxide Level 29 Anion Gap 5 L Blood Urea Nitrogen 48 H Creatinine 1.22 Glucose Level 198 Calcium Level 7.4 L Phosphorus Level 3.8 Magnesium Level 2.3 Test 01/02/17 04:17 01/02/17 07:00 01/02/17 07:51 01/02/17 07:54 Bedside Glucose 220 Blood Gas Specimen Source Blood arterial Arterial Blood Date Drawn 01/02/2017 8:00:36 AM Arterial Blood pH (Temp corrected) 7.512 H Arterial Blood pCO2 (Temp correct) 38.4 Arterial Blood pO2 (Temp corrected) 63.6 L Arterial Blood HCO3 30.1 H Arterial Blood Base Excess 6.7 H Arterial Blood Oxygen Saturation 92.1 L Leobardo Test ACCEPTAB Arterial Blood Gas Puncture Site Right Radial Arterial Blood Carboxyhemoglobin 0.2 Arterial Blood Methemoglobin 0.3 Blood Gas A-a O2 Differential 322.0 H Oxyhemoglobin Percent 91.6 L Total Hemoglobin 10.4 L Blood Gas Temperature 37.0 Blood Gas Respiration Rate 24.0 Blood Gas Actual Respiration Rate 24 Blood Gas Modality VENT - AC FiO2 60.0 Blood Gas Tidal Volume 500.0 Blood Gas Low PEEP Setting 5.0 Blood Gas Notified Whom JLD Blood Gas Notified Time 01/02/2017 8:28:22 AM Lab Scanned Report REFERENCE LAB REFERENCE LAB Test 01/02/17 08:55 01/02/17 12:31 Bedside Glucose 146 145 Medications Current Medications Ondansetron HCl (Zofran Inj) 4 mg Q6H PRN IV NAUSEA AND/OR VOMITING; Start at 13:00 Acetaminophen (Tylenol Tab) 650 mg Q6H PRN PO PAIN LEVEL 1-3 OR FEVER Last administered on 12/29/16 06:02; Admin Dose 650 MG; Start 12/15/16 at 13:00 Acetaminophen/ Hydrocodone Bitart ([place] (5/325)) 1 tab Q6H PRN PO PAIN LEVEL 4 -6 Last administered on 12/15/16 22:08; Admin Dose 1 TAB; Start 12/15/16 at 13: 00 Morphine Sulfate (morphine) 2 mg Q4H PRN IV PAIN LEVEL 7-10 Last administered on 12/25/16 03:03; Admin Dose 2 MG; Start 12/15/16 at 13:00 Magnesium Hydroxide (Milk Of Mag) 30 ml DAILY PRN PO CONSTIPATION Last administered on 01/02/17 02:07; Admin Dose 30 ML; Start 12/15/16 at 13:00 Bisacodyl (Dulcolax) 5 mg DAILY PRN PO CONSTIPATION; Start 12/15/16 at 13:00 Famotidine (Pepcid) 20 mg Q12 PO Last administered on 01/02/17 09:00; Admin Dose 20 MG; Start 12/15/16 at 21:00 Hydralazine HCl (Apresoline) 10 mg Q6H PRN IV SBP>160 Last administered on 04:53; Admin Dose 10 MG; Start 12/15/16 at 13:00 Aspirin (Aspirin) 325 mg DAILY PO Last administered on 01/02/17 08:59; Admin Dose 325 MG; Start 12/16/16 at 09:00 Atorvastatin Calcium (Lipitor) 80 mg QHS PO Last administered on 01/01/17 20:43 ; Admin Dose 80 MG; Start 12/15/16 at 21:00 Heparin Sodium (Porcine) (Heparin (5000 Units/0.5 ml)) 5,000 unit BID SC Last administered on 01/02/17 09:03; Admin Dose 5,000 UNIT; Start 12/15/16 at 21:00 Miscellaneous Information 1 ea NOTE XX ; Start 12/15/16 at 14:00 Glucose (Glutose) 15 gm Q15M PRN PO DECREASED GLUCOSE; Start 12/15/16 at 14:00 Glucose (Glutose) 22.5 gm Q15M PRN PO DECREASED GLUCOSE; Start 12/15/16 at 14: 00 Glucagon (Glucagen) 1 mg Q15M PRN IM DECREASED GLUCOSE; Start 12/15/16 at 14:00 Glucose (Glutose) 15 gm Q15M PRN BUCCAL DECREASED GLUCOSE; Start 12/15/16 at 14 :00 Cholecalciferol 1000 unit 1,000 unit DAILY PO Last administered on 01/02/17 09: 01; Admin Dose 1,000 UNIT; Start 12/16/16 at 09:00 Fentanyl (Sublimaze) 100 ml @ 2.5 mls/hr TITRATE IV Last administered on 08:56; Admin Dose 10 MLS/HR; Start 12/18/16 at 03:30 Dextrose (D50w Syringe) 25 ml Q15M PRN IV Till BS 80 mg/dL or above x2; Start 12/18/16 at 14:00 Dextrose (D50w Syringe) 50 ml Q15M PRN IV Till BS 80 mg/dL or above x2; Start 12/18/16 at 14:00 IV Flush 10 ml 10 ml PRN PRN IV IV PROTOCOL; Start 12/18/16 at 17:00 Norepinephrine/ Dextrose (Levophed/D5W) 250 ml @ 0.46 mls/hr TITRATE IV ; Start 12/19/16 at 09:30 Amlodipine Besylate 5 mg 5 mg DAILY PO Last administered on 01/02/17 09:01; Admin Dose 5 MG; Start 12/21/16 at 09:00 Midazolam HCl 50 ml @ 1 mls/hr TITRATE IV Last administered on 01/02/17 10:10; Admin Dose 8 MLS/HR; Start 12/20/16 at 14:00 Propofol (Diprivan) 100 ml @ 3.255 mls/ hr Q12H IV Last administered on 11:17; Admin Dose 13.02 MLS/HR; Start 12/20/16 at 20:30 Hydralazine HCl (Apresoline) 10 mg Q4H PRN IV sbp > 160 Last administered on 22:35; Admin Dose 10 MG; Start 12/22/16 at 06:30 Lorazepam (Ativan) 1 mg Q1H PRN IV agitation Last administered on 12/29/16 16: 35; Admin Dose 1 MG; Start 12/25/16 at 03:30 Carvedilol 6.25 mg 6.25 mg BID PO Last administered on 01/02/17 09:00; Admin Dose 6.25 MG; Start 12/25/16 at 21:00 Meropenem 100 ml @ 200 mls/hr Q12 IVPB Last administered on 01/02/17 08:56; Admin Dose 200 MLS/HR; Start 12/28/16 at 13:00 Caspofungin/ Sodium Chloride (Cancidas/NS) 250 ml @ 250 mls/hr Q24H IVPB Last administered on 01/02/17 11:17; Admin Dose 250 MLS/HR; Start 12/29/16 at 12:00 Insulin Aspart (Novolog Insulin Pen) NOVOLOG *MODERATE* ALGORITHM Q4 SC Last administered on 01/02/17 12:32; Admin Dose 2 UNIT; Start 12/29/16 at 09:30 Insulin Glargine (Lantus) 52 unit DAILY@20 SC Last administered on 01/01/17 20: 50; Admin Dose 52 UNIT; Start 12/31/16 at 20:00 Methylprednisolone Sodium Succinate (Solu-Medrol) 40 mg Q12 IV Last administered on 01/02/17 08:59; Admin Dose 40 MG; Start 01/01/17 at 21:00 Hydralazine HCl 100 mg 100 mg Q8 PO Last administered on 01/02/17 05:14; Admin Dose 100 MG; Start 01/01/17 at 14:00 Vancomycin HCl/ Sodium Chloride (Vancocin/NS) 250 ml @ 83.333 mls/ hr Q24H IVPB Last administered on 01/01/17 17:07; Admin Dose 83.333 MLS/HR; Start at 17:00 Assessment/Plan Chief Complaint/Hosp Course 1. Positive DAISY of unclear significance so far. DS DNA results not available. No definite evidence of vasculitis, May continue on steroids empirically . 2. Respiratory failure. 3. Right Pleural effusion 4. Renal insufficiency Much improved. 5. Diabetes mellitus. Glucose increased on steroids. 6. Hypertension. Rec. Steroid dose per pulmonary Pleural effusion to be tapped. Problems: ELIZABETH PUCKETT MD January 02, 2017 13:41
[2017-01-02] MEDS: VANCOMYCIN 1.5 GM in SOD CHLORIDE 0.9% 250 ML IVPB SCH (16:10)
--- NOTE | 2017-01-02 17:07 | RADRPT ---
PROCEDURE: US Chest. CLINICAL INDICATION: Shortness of breath. TECHNIQUE: Ultrasound of the right hemithorax was performed in the axial and sagittal planes. COMPARISON: Chest x-ray done earlier the same day. FINDINGS: There is a small right pleural effusion. There is not enough fluid to safely aspirate. Thoracentesi s was not performed. IMPRESSION: 1. Small right pleural effusion. 2. Thoracentesis was not performed. RPTAT: QQ .Chon Carcamo MD, MD Date Time Electronically viewed and signed by .Chon Carcamo MD, MD on 01/02/2017 17:07 .R/
[2017-01-02] MEDS: INSULIN GLARGINE [LANtus] 3 ML PEN SC SCH (20:47)
[2017-01-02] MEDS: ATORVASTATIN 80 MG TAB PO SCH (20:53)
[2017-01-03] VITALS (60 sets, daily range): BP systolic 110–181; BP diastolic 52–111; PULSE 59–78; RESP 0–28
[2017-01-03] MEDS: INSULIN ASPART [NOVOLOG] 3 ML PEN SC SCH ×6 (01:00→21:00)
[2017-01-03] MEDS: LEVALBUTEROL (HFA) 15 GM INHALER INH SCH ×4 (01:55→19:47)
[2017-01-03] MEDS: PROPOFOL 100 ML IV SCH ×4 (02:27→22:24)
[2017-01-03] MEDS: MIDAZOLAM (DRIP) 50 mg/50 mL 50 ML IV SCH ×3 (02:27→20:32)
[2017-01-03 04:56] LABS: ADD SCAN DIFF NO
[2017-01-03 05:06] LABS: BASOPHILS % 0.1 % (0.0-2.0); EOSINOPHILS # 0.2 10^3/ul (0.0-0.5); EOSINOPHILS % 1.4 % (0.0-7.0); HEMATOCRIT 32.4 % (42.0-52.0); HEMOGLOBIN 10.5 g/dl (14.0-18.0); LYMPHOCYTES # 1.1 10^3/ul (0.8-2.9); LYMPHOCYTES % 9.3 % (15.0-51.0); MEAN CORPUSCULAR HEMOGLOBIN 27.7 pg (29.0-33.0); MEAN CORPUSCULAR HGB CONC 32.4 g/dl (32.0-37.0); MEAN CORPUSCULAR VOLUME 85.5 fl (82.0-101.0); MEAN PLATELET VOLUME 12.6 fl (7.4-10.4); MONOCYTE # 0.5 10^3/ul (0.3-0.9); MONOCYTES % 4.1 % (0.0-11.0); NEUTROPHILS % 84.4 % (39.0-77.0); PLATELET COUNT 213 10^3/UL (140-415); RED BLOOD COUNT 3.79 10^6/ul (4.70-6.10); RED CELL DISTRIBUTION WIDTH 12.9 % (11.5-14.5); WHITE BLOOD COUNT 11.9 10^3/ul (4.8-10.8)
[2017-01-03] MEDS: FENTAnyl (DRIP) 1000 mcg/100mL 100 ML IV SCH ×2 (05:21→14:36)
[2017-01-03] MEDS: FUROSEMIDE 40 MG INJ IV SCH ×2 (05:21→17:51)
[2017-01-03 05:32] LABS: CREATININE 1.34 mg/dl (0.61-1.24)
[2017-01-03 05:33] LABS: CALCIUM 7.4 mg/dl (8.4-10.2); PHOSPHORUS 5.2 mg/dl (2.5-4.9)
[2017-01-03 05:34] LABS: MAGNESIUM 2.4 mg/dl (1.7-2.5)
[2017-01-03] MEDS ORDERED: POTASSIUM CHLORIDE 20 MEQ POWDER FOR ORAL SOLN NGT ONE (08:00)
[2017-01-03 08:10] LABS: AADO2 Arterial 303.7 mmHg (7.0-24.0); Allen Test ACCEPTAB; Arterial Base Excess 8.1 mmol/L (-3.0-3); Arterial COHb 0.2 % (0.0-3.0); Arterial Fraction of Oxyhgb 93.4 % (93.0-99.0); Arterial HCO3 32.8 mmol/L (22.0-26.0); Arterial MetHb 0.4 % (0.0-1.5); Arterial Total Hemglobin 10.6 g/dl (12.0-18.0); MODE VENT - AC
[2017-01-03] MEDS: MEROPENEM 500 MG/100 ML (PMX) 100 ML IVPB SCH ×2 (08:45→21:05)
[2017-01-03] MEDS: METHYLPREDNISOLONE 125 MG INJ IV SCH ×2 (08:46→21:05)
[2017-01-03] MEDS: SEVELAMER CARBONATE 0.8 GM PKT PO SCH ×3 (08:46→17:44)
--- NOTE | 2017-01-03 08:47 | PN ---
DATE: 01/03/2017 SUBJECTIVE: The patient remains critically ill on full ventilatory support. The patient has good u rinary output. No other acute events noted. OBJECTIVE: VITAL SIGNS: Blood pressure 124/64, respirations 18, pulse 63, temperature 98.6. I'S AND O'S: The patient had 2.9 liters in with 3 liters out. HEENT: Head is normocephalic. NECK: Supple. HEART: Regular rate. LUNGS: Show diminished breath sounds at the base. ABDOMEN: Soft, nontender to palpation. No rebound or guarding. EXTREMITIES: Negative for clubbing, cyanosis. No edema. DERMATOLOGIC: No rashes. MUSCULOSKELETAL: No joint effusions. NEUROLOGIC: No change in exam. MEDICATIONS: The patient's medications have been reviewed. LABORATORY DATA: Shows sodium 143, potassium 3.0, chloride 106, bicarbonate is 33, BUN 15, creatini ne 1.34 phosphorus 5.2, calcium 7.4. White count 11.9, hemoglobin 10.5, hematocrit 32.4, platelet c ount is 213. IMAGING: The patient's chest x-ray on January 02 shows opacities may reflect interstitial edema, atele ctasis, pneumonia, mildly increased. ASSESSMENT AND PLAN: 1. Nonoliguric acute kidney injury with previous baseline creatinine mg/dL. Etiology of acute kidn ey injury secondary to acute tubular necrosis. The patient's renal function and has initially impro adeola back to previous baseline. The patient's creatinine has increased in the last 24 hours. This i s likely due to hemodynamics, diuretic therapy. At this point, will continue current treatment plan . If renal function further declines, we will deescalate Lasix and monitor closely. 2. Hypokalemia, replete with potassium chloride 60 mEq p.o. x1, will also add Aldactone as potassiu m sparing and monitor closely. 3. Volume overload secondary to acute kidney injury, diastolic heart failure. The patient is curre ntly on Lasix. Will continue. Monitor renal function closely. 4. Metabolic alkalemia, likely secondary to recent diuretic therapy, hypokalemia. Will consider ad ding Diamox. Will defer to pulmonary. 5. Hyponatremia, improved. Continue free water flushes. 6. Mineral bone disorder. Continue to monitor calcium and phosphorus levels. 7. Anemia. Continue to monitor hemoglobin and hematocrit levels. 8. Ventilator dependent respiratory failure. Vent settings have been reviewed. ABG has been revie wed. Continue to monitor. 9. Sepsis secondary to multifocal pneumonia. Continue current antibiotic regimen. 10. [id number] myocardial infarction. Continue current medical management. 11. Diabetes. Continue Accu-Cheks and insulin sliding scale. 12. Hypertension. Continue current blood pressure regimen. 13. History of polysubstance abuse. 14. Encephalopathy. No change. 15. Positive DAISY with unclear clinical significance. Continue to monitor. Please note I spent over 35 minutes of critical care time with this patient. Dictated By: LUIS DICKINSON DO NR/NTS Conf#: [id number] DID#: [id number]
--- NOTE | 2017-01-03 09:02 | RADRPT ---
PROCEDURE: Chest Radiograph. CLINICAL INDICATION: Pneumonia. CHF. TECHNIQUE: Single frontal chest radiograph. COMPARISON: Chest radiograph 01/02/2017 FINDINGS: An endotracheal tube, nasogastric tube, and left upper extremity PICC remain in stable and radiograp hically appropriate position.. The heart is magnified and may be enlarged. There is mild improved aeration of the bilateral lung borrero. There is persistent bibasilar opacification consistent with infiltrates, atelectasis, and/or effusions. The bones are intact. IMPRESSION: 1. Mild improved aeration of the lung bases. 2. Otherwise stable radiographic appearance of the chest compared to 01/02/2017. RPTAT: KK .Lavon Cardona MD, Date Time Electronically viewed and signed by .Lavon Cardona MD, MD on 01/03/2017 09:01 .B/
[2017-01-03] MEDS: CHOLECALCIFEROL 1,000 UNIT TAB PO SCH (09:05)
[2017-01-03] MEDS: SPIRONOLACTONE 25 MG TAB PO SCH (09:05)
[2017-01-03] MEDS: AMLODIPINE 5 MG TAB PO SCH (09:05)
[2017-01-03] MEDS: ASPIRIN 325 MG TAB PO SCH (09:05)
[2017-01-03] MEDS: FAMOTIDINE 20 MG TAB PO SCH ×2 (09:05→21:05)
[2017-01-03] MEDS: HEPARIN 5,000 UNIT/0.5 ML VIAL SC SCH ×2 (09:28→21:10)
--- NOTE | 2017-01-03 10:55 | PN ---
Date/Time of Note Date/Time of Note DATE: 01/03/17 TIME: 10:43 Assessment/Plan VTE Prophylaxis VTE Prophylaxis Intervention: heparin Lines/Catheters IV Catheter Type (from [facility], [place]): PICC Line Central line still needed: Yes Urinary Cath still in place: Yes Reason Cath still needed: urinary retention Assessment/Plan Chief Complaint/Hosp Course A/P: 41 M with: 1. Sepsis secondary to underlying community-acquired pneumonia with septic shock. Currently off pressors. On ABX as per ID. Mycoplasma serology abnormal. 2. Acute hypoxic respiratory failure. Most probably secondary to underlying pneumonia versus others. Patient got intubated on 12/18/2016. Continue inhaled bronchodilators. Pulmonology following the patient. 3. Elevated troponins. Most probably a type 2 event from underlying sepsis and underlying acute kidney injury. Cardiology following. 4. Acute kidney injury. The patient had a normal creatinine of 1.00 on 2015. The patient's current acute kidney injury could be most probably secondary to dehydration from persistent vomiting - improving now. The patient' s nephrotoxic drugs will be held at this time. Being followed by nephrology. 5. Type 2 diabetes mellitus. Uncontrolled. A1C is high (send out). The patient will be maintained on sliding scale insulin along with basal insulin. 6. Dyslipidemia. Continue statins. 7. Essential hypertension. Continue antihypertensives. 8. Hypocalcemia. Probably secondary to underlying hypoalbuminemia. 9. Microcytic, hypochromic anemia. Etiology unclear. Iron panel showing iron deficiency. Continue iron supplements. 10. Vitamin D deficiency. Continue supplements. 11. Fluids, electrolytes, and nutrition. Tube feedings. 12. DVT prophylaxis. Subcutaneous heparin. 13. Gastrointestinal prophylaxis. Histamine 2 receptor blockers. 14. Plan. Continue antibiotics. Continue ventilator support. Ventilator weaning as per Pulmonary. Adjust insulin to obtain optimal blood sugar control. 15. Positive DAISY with unclear clinical significance. Continue to monitor. Critical care time: 40 minutes. Problems: Subjective 24 Hr Interval Summary Free Text/Dictation Pt still intubated. Seen by renal team. Exam/Review of Systems Vital Signs Vitals Vital Signs Date Time Temp Pulse Resp B/P Pulse Ox O2 Delivery O2 Flow Rate FiO2 01/03/17 08:58 50 01/03/17 06:30 63 18 124/64 96 01/03/17 06:00 Mechanical Ventilator 01/03/17 04:00 99.0 Intake and Output 5/9/17 5/9/17 5/10/17 15:00 23:00 07:00 Intake Total 1028.20 ml 902.24 ml 956.71 ml Output Total 945 ml 1485 ml 640 ml Balance 83.20 ml -582.76 ml 316.71 ml Exam GENERAL: This is a morbidly obese male lying in bed, orally intubated and mechanically ventilated. HEENT: Head normocephalic and atraumatic. Eyes: Anicteric sclerae. Conjunctivae clear. ENT: Nasal septum is midline. Oral mucosa is dry. NECK: Short with increased neck circumference. RESPIRATORY: Bilaterally diminished breath sounds. On mechanical ventilator. CARDIAC: Regular rate and rhythm. S1, S2 heard. ABDOMEN: Soft, nontender and nondistended. Bowel sounds positive in all 4 quadrants. EXTREMITIES: No cyanosis, no clubbing. B/L LE edema. Pedal pulses palpable. Status post left great toe amputation. NEUROLOGIC: The patient is sedated. Results Result Diagram: 01/03/17 0330 01/03/17 0330 Results 24 hrs Laboratory Tests Test 01/02/17 12:31 01/02/17 16:09 01/02/17 20:45 01/03/17 01:06 Bedside Glucose 145 128 112 133 Test 01/03/17 03:30 01/03/17 04:55 01/03/17 07:00 01/03/17 09:19 White Blood Count 11.9 H Red Blood Count 3.79 L Hemoglobin 10.5 L Hematocrit 32.4 L Mean Corpuscular Volume 85.5 Mean Corpuscular Hemoglobin 27.7 L Mean Corpuscular Hemoglobin Concent 32.4 Red Cell Distribution Width 12.9 Platelet Count 213 Mean Platelet Volume 12.6 H Neutrophils % 84.4 H Lymphocytes % 9.3 L Monocytes % 4.1 Eosinophils % 1.4 Basophils % 0.1 Nucleated Red Blood Cells % 0.0 Neutrophils # 10.0 H Lymphocytes # 1.1 Monocytes # 0.5 Eosinophils # 0.2 Basophils # 0.0 Nucleated Red Blood Cells # 0.0 Sodium Level 143 Potassium Level 3.0 L Chloride Level 106 Carbon Dioxide Level 33 H Anion Gap 7 L Blood Urea Nitrogen 50 H Creatinine 1.34 H Glucose Level 122 # Calcium Level 7.4 L Phosphorus Level 5.2 H Magnesium Level 2.4 Bedside Glucose 120 110 Blood Gas Specimen Source Blood arterial Arterial Blood Date Drawn 01/03/2017 7:27:22 AM Arterial Blood pH (Temp corrected) 7.465 H Arterial Blood pCO2 (Temp correct) 46.7 H Arterial Blood pO2 (Temp corrected) 72.7 L Arterial Blood HCO3 32.8 H Arterial Blood Base Excess 8.1 H Arterial Blood Oxygen Saturation 94.0 L Leobardo Test ACCEPTAB Arterial Blood Gas Puncture Site Right Radial Arterial Blood Carboxyhemoglobin 0.2 Arterial Blood Methemoglobin 0.4 Blood Gas A-a O2 Differential 303.7 H Oxyhemoglobin Percent 93.4 Total Hemoglobin 10.6 L Blood Gas Temperature 37.0 Blood Gas Respiration Rate 18.0 Blood Gas Actual Respiration Rate 18 Blood Gas Modality VENT - AC FiO2 60.0 Blood Gas Tidal Volume 500.0 Blood Gas Low PEEP Setting 5.0 Blood Gas Notified Whom JLD Blood Gas Notified Time 01/03/2017 8:10:02 AM Medications Medications Current Medications Ondansetron HCl (Zofran Inj) 4 mg Q6H PRN IV NAUSEA AND/OR VOMITING; Start at 13:00 Acetaminophen (Tylenol Tab) 650 mg Q6H PRN PO PAIN LEVEL 1-3 OR FEVER Last administered on 12/29/16 06:02; Admin Dose 650 MG; Start 12/15/16 at 13:00 Acetaminophen/ Hydrocodone Bitart ([place] (5/325)) 1 tab Q6H PRN PO PAIN LEVEL 4 -6 Last administered on 12/15/16 22:08; Admin Dose 1 TAB; Start 12/15/16 at 13: 00 Morphine Sulfate (morphine) 2 mg Q4H PRN IV PAIN LEVEL 7-10 Last administered on 12/25/16 03:03; Admin Dose 2 MG; Start 12/15/16 at 13:00 Magnesium Hydroxide (Milk Of Mag) 30 ml DAILY PRN PO CONSTIPATION Last administered on 01/02/17 02:07; Admin Dose 30 ML; Start 12/15/16 at 13:00 Bisacodyl (Dulcolax) 5 mg DAILY PRN PO CONSTIPATION; Start 12/15/16 at 13:00 Famotidine (Pepcid) 20 mg Q12 PO Last administered on 01/03/17 09:05; Admin Dose 20 MG; Start 12/15/16 at 21:00 Hydralazine HCl (Apresoline) 10 mg Q6H PRN IV SBP>160 Last administered on 04:53; Admin Dose 10 MG; Start 12/15/16 at 13:00 Aspirin (Aspirin) 325 mg DAILY PO Last administered on 01/03/17 09:05; Admin Dose 325 MG; Start 12/16/16 at 09:00 Atorvastatin Calcium (Lipitor) 80 mg QHS PO Last administered on 01/02/17 20:53 ; Admin Dose 80 MG; Start 12/15/16 at 21:00 Heparin Sodium (Porcine) (Heparin (5000 Units/0.5 ml)) 5,000 unit BID SC Last administered on 01/03/17 09:28; Admin Dose 5,000 UNIT; Start 12/15/16 at 21:00 Miscellaneous Information 1 ea NOTE XX ; Start 12/15/16 at 14:00 Glucose (Glutose) 15 gm Q15M PRN PO DECREASED GLUCOSE; Start 12/15/16 at 14:00 Glucose (Glutose) 22.5 gm Q15M PRN PO DECREASED GLUCOSE; Start 12/15/16 at 14: 00 Glucagon (Glucagen) 1 mg Q15M PRN IM DECREASED GLUCOSE; Start 12/15/16 at 14:00 Glucose (Glutose) 15 gm Q15M PRN BUCCAL DECREASED GLUCOSE; Start 12/15/16 at 14 :00 Cholecalciferol 1000 unit 1,000 unit DAILY PO Last administered on 01/03/17 09 :05; Admin Dose 1,000 UNIT; Start 12/16/16 at 09:00 Fentanyl (Sublimaze) 100 ml @ 2.5 mls/hr TITRATE IV Last administered on 05:21; Admin Dose 10 MLS/HR; Start 12/18/16 at 03:30 Dextrose (D50w Syringe) 25 ml Q15M PRN IV Till BS 80 mg/dL or above x2; Start 12/18/16 at 14:00 Dextrose (D50w Syringe) 50 ml Q15M PRN IV Till BS 80 mg/dL or above x2; Start 12/18/16 at 14:00 IV Flush 10 ml 10 ml PRN PRN IV IV PROTOCOL; Start 12/18/16 at 17:00 Norepinephrine/ Dextrose (Levophed/D5W) 250 ml @ 0.46 mls/hr TITRATE IV ; Start 12/19/16 at 09:30 Amlodipine Besylate 5 mg 5 mg DAILY PO Last administered on 01/03/17 09:05; Admin Dose 5 MG; Start 12/21/16 at 09:00 Midazolam HCl 50 ml @ 1 mls/hr TITRATE IV Last administered on 01/03/17 09:14 ; Admin Dose 10 MLS/HR; Start 12/20/16 at 14:00 Propofol (Diprivan) 100 ml @ 3.255 mls/ hr Q12H IV Last administered on 09:14; Admin Dose 19.53 MLS/HR; Start 12/20/16 at 20:30 Hydralazine HCl (Apresoline) 10 mg Q4H PRN IV sbp > 160 Last administered on 22:35; Admin Dose 10 MG; Start 12/22/16 at 06:30 Lorazepam (Ativan) 1 mg Q1H PRN IV agitation Last administered on 12/29/16 16: 35; Admin Dose 1 MG; Start 12/25/16 at 03:30 Carvedilol 6.25 mg 6.25 mg BID PO Last administered on 01/03/17 09:06; Admin Dose 6.25 MG; Start 12/25/16 at 21:00 Meropenem 100 ml @ 200 mls/hr Q12 IVPB Last administered on 01/03/17 08:45; Admin Dose 200 MLS/HR; Start 12/28/16 at 13:00 Caspofungin/ Sodium Chloride (Cancidas/NS) 250 ml @ 250 mls/hr Q24H IVPB Last administered on 01/02/17 11:17; Admin Dose 250 MLS/HR; Start 12/29/16 at 12:00 Insulin Aspart (Novolog Insulin Pen) NOVOLOG *MODERATE* ALGORITHM Q4 SC Last administered on 01/02/17 12:32; Admin Dose 2 UNIT; Start 12/29/16 at 09:30 Insulin Glargine (Lantus) 52 unit DAILY@20 SC Last administered on 01/02/17 20: 47; Admin Dose 52 UNIT; Start 12/31/16 at 20:00 Methylprednisolone Sodium Succinate (Solu-Medrol) 40 mg Q12 IV Last administered on 01/03/17 08:46; Admin Dose 40 MG; Start 01/01/17 at 21:00 Hydralazine HCl 100 mg 100 mg Q8 PO Last administered on 01/03/17 05:21; Admin Dose 100 MG; Start 01/01/17 at 14:00 Vancomycin HCl/ Sodium Chloride (Vancocin/NS) 250 ml @ 83.333 mls/ hr Q24H IVPB Last administered on 01/02/17 16:10; Admin Dose 83.333 MLS/HR; Start at 17:00 Spironolactone (Aldactone) 25 mg DAILY PO Last administered on 01/03/17 09:05 ; Admin Dose 25 MG; Start 01/03/17 at 09:00 CLARITA VERMA January 03, 2017 10:53
[2017-01-03] MEDS: CASPOFUNGIN 50 MG in SOD CHLORIDE 0.9% 250 ML IVPB SCH (11:56)
--- NOTE | 2017-01-03 13:00 | PN ---
DATE: 01/03/2017 SUBJECTIVE: No acute changes. Patient remains on PEEP of 5, FiO2 of 50, intubated and sedated. No fevers. VITAL SIGNS: Stable. LABORATORIES: WBC 11.9, H and H 10.5 and 32.4, platelets 213, neutrophils 84.4, BUN 50, creatinine 1.34, potassium 3 status post replaced. DIAGNOSTICS: Chest x-ray this morning revealed mildly improved aeration of the lung bases. INDWELLINGS: Endotracheal tube, NG tube, Ritchie, PICC line. ANTIMICROBIALS: 1. Vancomycin. 2. Cancidas. 3. Meropenem. PHYSICAL EXAMINATION: GENERAL: This is a morbidly obese, well-developed, middle-aged man who is in no distress. HEENT: Head atraumatic, normocephalic. Sclerae anicteric. Buccal mucosa dry. NECK: Supple, trachea midline. CHEST: Rise symmetrical. Breath sounds diminished to bases. HEART: S1, S2. ABDOMEN: Soft. Bowel tones present. EXTREMITIES: Without cyanosis. Bilateral trace edema. ASSESSMENT: 1. Acute hypoxemic respiratory failure with multilobular pneumonia and ARDS component. 2. Resolving sepsis status post urinary tract infection. 3. Morbid obesity. 4. Diabetes. 5. Positive for DAISY no evidence of vasculitis per Hematology. PLAN: The patient remains stable. Continue present care. Continue on current antibiotics. Dictated By: YOLETTE RODRIGUEZ FISHER TRAMMEL NET for DANUTA AYOUB MD NI/NTS Conf#: [id number] DID#: [id number]
--- NOTE | 2017-01-03 13:29 | CONS ---
Date/Time of Note Date/Time of Note DATE: 01/03/17 TIME: 13:20 Assessment/Plan Assessment/Plan Chief Complaint/Hosp Course IMPRESSION: 1. Positive troponin, assess significance.-no sig uptrend/likely demand event in settng fevers/tachy/resp distress 2. Abnormal electrocardiogram with ST depressions with tachycardia and positive troponin, likely indicative of coronary artery disease.-improved ecg findings with improved HR 3. Hypertension, uncontrolled mildly still 4. Dyslipidemia. 5. Diabetes mellitus. 6. Fevers to 104 documented here in the hospital.-ongoing low grade 7. Renal failure.-acute on chronic/ ? secondary to vasculitic syndrome 8. Lower extremity edema, assess for congestive heart failure/CHF-diastolic acute on chronic 9. Nausea and vomiting. 10. Chest pain with cough. 11.Resp failure s/p intubation 12. Bradycardia-to 40's.Now improved and tolerating BB Recc: -Tele -serial ecg's -Continue asa/statin -Continue abx's and f/u cx data -Continue bronchodilators and steroids. -Follow volume status closely and continue lasix diuresis -wean vent as tolerated -Continue hydralazine/norvasc with slight increase hydralazine -Continue coreg and follow HR closely -Ongoing eval for vasculitic syndrome per rheum -Ongoing palliative care consult and discussion abiut direction of care Problems: Consultation Date/Type/Reason Admit Date/Time Dec 15, 2016 at 11:20 Initial Consult Date 12/15/2016 Type of Consultation: Cardiology Reason for Consultation CP arrest Referring Provider: LEXII REED Exam/Review of Systems Vital Signs Vitals Vital Signs Date Time Temp Pulse Resp B/P Pulse Ox O2 Delivery O2 Flow Rate FiO2 01/03/17 11:36 90 50 01/03/17 10:30 60 18 130/66 01/03/17 10:00 Mechanical Ventilator 01/03/17 08:00 98.9 Intake and Output 01/02/17 01/02/17 01/03/17 15:00 23:00 07:00 Intake Total 1028.20 ml 902.24 ml 996.71 ml Output Total 945 ml 1485 ml 990 ml Balance 83.20 ml -582.76 ml 6.71 ml Exam Review of Systems: CONSTITUTIONAL: No fevers, chills. PULMONARY: intubated CARDIOVASCULAR: No chest pain/palpitations GASTROINTESTINAL: No nausea/vomiting. GENITOURINARY: No hematuria/dysuria. MUSCULOSKELETAL: No myagias/arthalgias. PSYCHIATRIC: The patient denies depression. NEUROLOGIC: encephalopathy Constitutional: other (encephalopathic) Psych: no complaints ENMT: mucosa pink and moist Neck: jvd, supple Respiratory: diminished breath sounds Cardiovascular: regular rate and rhythm Gastrointestinal: non-tender, soft Musculoskeletal: muscle tone Extremities: edema (none) Neurological: other (No focal deficits) Results Result Diagram: 01/03/17 0330 01/03/17 0330 Results 24 hrs Laboratory Tests Test 01/02/17 16:09 01/02/17 20:45 01/03/17 01:06 01/03/17 03:30 Bedside Glucose 128 112 133 White Blood Count 11.9 H Red Blood Count 3.79 L Hemoglobin 10.5 L Hematocrit 32.4 L Mean Corpuscular Volume 85.5 Mean Corpuscular Hemoglobin 27.7 L Mean Corpuscular Hemoglobin Concent 32.4 Red Cell Distribution Width 12.9 Platelet Count 213 Mean Platelet Volume 12.6 H Neutrophils % 84.4 H Lymphocytes % 9.3 L Monocytes % 4.1 Eosinophils % 1.4 Basophils % 0.1 Nucleated Red Blood Cells % 0.0 Neutrophils # 10.0 H Lymphocytes # 1.1 Monocytes # 0.5 Eosinophils # 0.2 Basophils # 0.0 Nucleated Red Blood Cells # 0.0 Sodium Level 143 Potassium Level 3.0 L Chloride Level 106 Carbon Dioxide Level 33 H Anion Gap 7 L Blood Urea Nitrogen 50 H Creatinine 1.34 H Glucose Level 122 # Calcium Level 7.4 L Phosphorus Level 5.2 H Magnesium Level 2.4 Test 01/03/17 04:55 01/03/17 07:00 01/03/17 09:19 01/03/17 12:01 Bedside Glucose 120 110 103 Blood Gas Specimen Source Blood arterial Arterial Blood Date Drawn 01/03/2017 7:27:22 AM Arterial Blood pH (Temp corrected) 7.465 H Arterial Blood pCO2 (Temp correct) 46.7 H Arterial Blood pO2 (Temp corrected) 72.7 L Arterial Blood HCO3 32.8 H Arterial Blood Base Excess 8.1 H Arterial Blood Oxygen Saturation 94.0 L Leobardo Test ACCEPTAB Arterial Blood Gas Puncture Site Right Radial Arterial Blood Carboxyhemoglobin 0.2 Arterial Blood Methemoglobin 0.4 Blood Gas A-a O2 Differential 303.7 H Oxyhemoglobin Percent 93.4 Total Hemoglobin 10.6 L Blood Gas Temperature 37.0 Blood Gas Respiration Rate 18.0 Blood Gas Actual Respiration Rate 18 Blood Gas Modality VENT - AC FiO2 60.0 Blood Gas Tidal Volume 500.0 Blood Gas Low PEEP Setting 5.0 Blood Gas Notified Whom JLD Blood Gas Notified Time 01/03/2017 8:10:02 AM Medications Medications Current Medications Ondansetron HCl (Zofran Inj) 4 mg Q6H PRN IV NAUSEA AND/OR VOMITING; Start at 13:00 Acetaminophen (Tylenol Tab) 650 mg Q6H PRN PO PAIN LEVEL 1-3 OR FEVER Last administered on 12/29/16 06:02; Admin Dose 650 MG; Start 12/15/16 at 13:00 Acetaminophen/ Hydrocodone Bitart ([place] (5/325)) 1 tab Q6H PRN PO PAIN LEVEL 4 -6 Last administered on 12/15/16 22:08; Admin Dose 1 TAB; Start 12/15/16 at 13: 00 Morphine Sulfate (morphine) 2 mg Q4H PRN IV PAIN LEVEL 7-10 Last administered on 12/25/16 03:03; Admin Dose 2 MG; Start 12/15/16 at 13:00 Magnesium Hydroxide (Milk Of Mag) 30 ml DAILY PRN PO CONSTIPATION Last administered on 01/02/17 02:07; Admin Dose 30 ML; Start 12/15/16 at 13:00 Bisacodyl (Dulcolax) 5 mg DAILY PRN PO CONSTIPATION; Start 12/15/16 at 13:00 Famotidine (Pepcid) 20 mg Q12 PO Last administered on 01/03/17 09:05; Admin Dose 20 MG; Start 12/15/16 at 21:00 Hydralazine HCl (Apresoline) 10 mg Q6H PRN IV SBP>160 Last administered on 04:53; Admin Dose 10 MG; Start 12/15/16 at 13:00 Aspirin (Aspirin) 325 mg DAILY PO Last administered on 01/03/17 09:05; Admin Dose 325 MG; Start 12/16/16 at 09:00 Atorvastatin Calcium (Lipitor) 80 mg QHS PO Last administered on 01/02/17 20:53 ; Admin Dose 80 MG; Start 12/15/16 at 21:00 Heparin Sodium (Porcine) (Heparin (5000 Units/0.5 ml)) 5,000 unit BID SC Last administered on 01/03/17 09:28; Admin Dose 5,000 UNIT; Start 12/15/16 at 21:00 Miscellaneous Information 1 ea NOTE XX ; Start 12/15/16 at 14:00 Glucose (Glutose) 15 gm Q15M PRN PO DECREASED GLUCOSE; Start 12/15/16 at 14:00 Glucose (Glutose) 22.5 gm Q15M PRN PO DECREASED GLUCOSE; Start 12/15/16 at 14: 00 Glucagon (Glucagen) 1 mg Q15M PRN IM DECREASED GLUCOSE; Start 12/15/16 at 14:00 Glucose (Glutose) 15 gm Q15M PRN BUCCAL DECREASED GLUCOSE; Start 12/15/16 at 14 :00 Cholecalciferol 1000 unit 1,000 unit DAILY PO Last administered on 01/03/17 09 :05; Admin Dose 1,000 UNIT; Start 12/16/16 at 09:00 Fentanyl (Sublimaze) 100 ml @ 2.5 mls/hr TITRATE IV Last administered on 05:21; Admin Dose 10 MLS/HR; Start 12/18/16 at 03:30 Dextrose (D50w Syringe) 25 ml Q15M PRN IV Till BS 80 mg/dL or above x2; Start 12/18/16 at 14:00 Dextrose (D50w Syringe) 50 ml Q15M PRN IV Till BS 80 mg/dL or above x2; Start 12/18/16 at 14:00 IV Flush 10 ml 10 ml PRN PRN IV IV PROTOCOL; Start 12/18/16 at 17:00 Norepinephrine/ Dextrose (Levophed/D5W) 250 ml @ 0.46 mls/hr TITRATE IV ; Start 12/19/16 at 09:30 Amlodipine Besylate 5 mg 5 mg DAILY PO Last administered on 01/03/17 09:05; Admin Dose 5 MG; Start 12/21/16 at 09:00 Midazolam HCl 50 ml @ 1 mls/hr TITRATE IV Last administered on 01/03/17 09:14 ; Admin Dose 10 MLS/HR; Start 12/20/16 at 14:00 Propofol (Diprivan) 100 ml @ 3.255 mls/ hr Q12H IV Last administered on 09:14; Admin Dose 19.53 MLS/HR; Start 12/20/16 at 20:30 Hydralazine HCl (Apresoline) 10 mg Q4H PRN IV sbp > 160 Last administered on 22:35; Admin Dose 10 MG; Start 12/22/16 at 06:30 Lorazepam (Ativan) 1 mg Q1H PRN IV agitation Last administered on 12/29/16 16: 35; Admin Dose 1 MG; Start 12/25/16 at 03:30 Carvedilol 6.25 mg 6.25 mg BID PO Last administered on 01/03/17 09:06; Admin Dose 6.25 MG; Start 12/25/16 at 21:00 Meropenem 100 ml @ 200 mls/hr Q12 IVPB Last administered on 01/03/17 08:45; Admin Dose 200 MLS/HR; Start 12/28/16 at 13:00 Caspofungin/ Sodium Chloride (Cancidas/NS) 250 ml @ 250 mls/hr Q24H IVPB Last administered on 01/03/17 11:56; Admin Dose 250 MLS/HR; Start 12/29/16 at 12:00 Insulin Aspart (Novolog Insulin Pen) NOVOLOG *MODERATE* ALGORITHM Q4 SC Last administered on 01/02/17 12:32; Admin Dose 2 UNIT; Start 12/29/16 at 09:30 Insulin Glargine (Lantus) 52 unit DAILY@20 SC Last administered on 01/02/17 20: 47; Admin Dose 52 UNIT; Start 12/31/16 at 20:00 Methylprednisolone Sodium Succinate (Solu-Medrol) 40 mg Q12 IV Last administered on 01/03/17 08:46; Admin Dose 40 MG; Start 01/01/17 at 21:00 Hydralazine HCl 100 mg 100 mg Q8 PO Last administered on 01/03/17 05:21; Admin Dose 100 MG; Start 01/01/17 at 14:00 Vancomycin HCl/ Sodium Chloride (Vancocin/NS) 250 ml @ 83.333 mls/ hr Q24H IVPB Last administered on 01/02/17 16:10; Admin Dose 83.333 MLS/HR; Start at 17:00 Spironolactone (Aldactone) 25 mg DAILY PO Last administered on 01/03/17 09:05 ; Admin Dose 25 MG; Start 01/03/17 at 09:00 Miscellaneous Information (*Rx Drug Level Order Reminder*) VANCOMYCIN TROUGH AT 1600 ONCE ONCE XX ; Start 01/04/17 at 16:00; Stop 01/04/17 at 16:01 VI ADAMES January 03, 2017 13:29
--- NOTE | 2017-01-03 13:29 | CONS ---
Date/Time of Note Date/Time of Note DATE: 01/03/17 TIME: 13:23 Consult Date/Type/Reason Admit Date/Time Dec 15, 2016 at 11:20 Type of Consultation: Rheum Ordering Provider: LEXII REED Subjective Patient now alert. Still intubated. Objective Vital Signs Date Time Temp Pulse Resp B/P Pulse Ox O2 Delivery O2 Flow Rate FiO2 01/03/17 11:36 90 50 01/03/17 10:30 60 18 130/66 01/03/17 10:00 Mechanical Ventilator 01/03/17 08:00 98.9 Intake and Output 01/02/17 01/02/17 01/03/17 15:00 23:00 07:00 Intake Total 1028.20 ml 902.24 ml 996.71 ml Output Total 945 ml 1485 ml 990 ml Balance 83.20 ml -582.76 ml 6.71 ml Exam Intubated. Alert. Mildly sedated. Seems to understand. Chest scattered crackles. Heart RRR Abd. soft. No tenderness. Ext No synovitis. Results/Medications Result Diagram: 01/03/17 0330 01/03/17 0330 Results 24 hrs Laboratory Tests Test 01/02/17 16:09 01/02/17 20:45 01/03/17 01:06 01/03/17 03:30 Bedside Glucose 128 112 133 White Blood Count 11.9 H Red Blood Count 3.79 L Hemoglobin 10.5 L Hematocrit 32.4 L Mean Corpuscular Volume 85.5 Mean Corpuscular Hemoglobin 27.7 L Mean Corpuscular Hemoglobin Concent 32.4 Red Cell Distribution Width 12.9 Platelet Count 213 Mean Platelet Volume 12.6 H Neutrophils % 84.4 H Lymphocytes % 9.3 L Monocytes % 4.1 Eosinophils % 1.4 Basophils % 0.1 Nucleated Red Blood Cells % 0.0 Neutrophils # 10.0 H Lymphocytes # 1.1 Monocytes # 0.5 Eosinophils # 0.2 Basophils # 0.0 Nucleated Red Blood Cells # 0.0 Sodium Level 143 Potassium Level 3.0 L Chloride Level 106 Carbon Dioxide Level 33 H Anion Gap 7 L Blood Urea Nitrogen 50 H Creatinine 1.34 H Glucose Level 122 # Calcium Level 7.4 L Phosphorus Level 5.2 H Magnesium Level 2.4 Test 01/03/17 04:55 01/03/17 07:00 01/03/17 09:19 01/03/17 12:01 Bedside Glucose 120 110 103 Blood Gas Specimen Source Blood arterial Arterial Blood Date Drawn 01/03/2017 7:27:22 AM Arterial Blood pH (Temp corrected) 7.465 H Arterial Blood pCO2 (Temp correct) 46.7 H Arterial Blood pO2 (Temp corrected) 72.7 L Arterial Blood HCO3 32.8 H Arterial Blood Base Excess 8.1 H Arterial Blood Oxygen Saturation 94.0 L Leobardo Test ACCEPTAB Arterial Blood Gas Puncture Site Right Radial Arterial Blood Carboxyhemoglobin 0.2 Arterial Blood Methemoglobin 0.4 Blood Gas A-a O2 Differential 303.7 H Oxyhemoglobin Percent 93.4 Total Hemoglobin 10.6 L Blood Gas Temperature 37.0 Blood Gas Respiration Rate 18.0 Blood Gas Actual Respiration Rate 18 Blood Gas Modality VENT - AC FiO2 60.0 Blood Gas Tidal Volume 500.0 Blood Gas Low PEEP Setting 5.0 Blood Gas Notified Whom JLD Blood Gas Notified Time 01/03/2017 8:10:02 AM Medications Current Medications Ondansetron HCl (Zofran Inj) 4 mg Q6H PRN IV NAUSEA AND/OR VOMITING; Start at 13:00 Acetaminophen (Tylenol Tab) 650 mg Q6H PRN PO PAIN LEVEL 1-3 OR FEVER Last administered on 12/29/16 06:02; Admin Dose 650 MG; Start 12/15/16 at 13:00 Acetaminophen/ Hydrocodone Bitart ([place] (5/325)) 1 tab Q6H PRN PO PAIN LEVEL 4 -6 Last administered on 12/15/16 22:08; Admin Dose 1 TAB; Start 12/15/16 at 13: 00 Morphine Sulfate (morphine) 2 mg Q4H PRN IV PAIN LEVEL 7-10 Last administered on 12/25/16 03:03; Admin Dose 2 MG; Start 12/15/16 at 13:00 Magnesium Hydroxide (Milk Of Mag) 30 ml DAILY PRN PO CONSTIPATION Last administered on 01/02/17 02:07; Admin Dose 30 ML; Start 12/15/16 at 13:00 Bisacodyl (Dulcolax) 5 mg DAILY PRN PO CONSTIPATION; Start 12/15/16 at 13:00 Famotidine (Pepcid) 20 mg Q12 PO Last administered on 01/03/17 09:05; Admin Dose 20 MG; Start 12/15/16 at 21:00 Hydralazine HCl (Apresoline) 10 mg Q6H PRN IV SBP>160 Last administered on 04:53; Admin Dose 10 MG; Start 12/15/16 at 13:00 Aspirin (Aspirin) 325 mg DAILY PO Last administered on 01/03/17 09:05; Admin Dose 325 MG; Start 12/16/16 at 09:00 Atorvastatin Calcium (Lipitor) 80 mg QHS PO Last administered on 01/02/17 20:53 ; Admin Dose 80 MG; Start 12/15/16 at 21:00 Heparin Sodium (Porcine) (Heparin (5000 Units/0.5 ml)) 5,000 unit BID SC Last administered on 01/03/17 09:28; Admin Dose 5,000 UNIT; Start 12/15/16 at 21:00 Miscellaneous Information 1 ea NOTE XX ; Start 12/15/16 at 14:00 Glucose (Glutose) 15 gm Q15M PRN PO DECREASED GLUCOSE; Start 12/15/16 at 14:00 Glucose (Glutose) 22.5 gm Q15M PRN PO DECREASED GLUCOSE; Start 12/15/16 at 14: 00 Glucagon (Glucagen) 1 mg Q15M PRN IM DECREASED GLUCOSE; Start 12/15/16 at 14:00 Glucose (Glutose) 15 gm Q15M PRN BUCCAL DECREASED GLUCOSE; Start 12/15/16 at 14 :00 Cholecalciferol 1000 unit 1,000 unit DAILY PO Last administered on 01/03/17 09 :05; Admin Dose 1,000 UNIT; Start 12/16/16 at 09:00 Fentanyl (Sublimaze) 100 ml @ 2.5 mls/hr TITRATE IV Last administered on 05:21; Admin Dose 10 MLS/HR; Start 12/18/16 at 03:30 Dextrose (D50w Syringe) 25 ml Q15M PRN IV Till BS 80 mg/dL or above x2; Start 12/18/16 at 14:00 Dextrose (D50w Syringe) 50 ml Q15M PRN IV Till BS 80 mg/dL or above x2; Start 12/18/16 at 14:00 IV Flush 10 ml 10 ml PRN PRN IV IV PROTOCOL; Start 12/18/16 at 17:00 Norepinephrine/ Dextrose (Levophed/D5W) 250 ml @ 0.46 mls/hr TITRATE IV ; Start 12/19/16 at 09:30 Amlodipine Besylate 5 mg 5 mg DAILY PO Last administered on 01/03/17 09:05; Admin Dose 5 MG; Start 12/21/16 at 09:00 Midazolam HCl 50 ml @ 1 mls/hr TITRATE IV Last administered on 01/03/17 09:14 ; Admin Dose 10 MLS/HR; Start 12/20/16 at 14:00 Propofol (Diprivan) 100 ml @ 3.255 mls/ hr Q12H IV Last administered on 09:14; Admin Dose 19.53 MLS/HR; Start 12/20/16 at 20:30 Hydralazine HCl (Apresoline) 10 mg Q4H PRN IV sbp > 160 Last administered on 22:35; Admin Dose 10 MG; Start 12/22/16 at 06:30 Lorazepam (Ativan) 1 mg Q1H PRN IV agitation Last administered on 12/29/16 16: 35; Admin Dose 1 MG; Start 12/25/16 at 03:30 Carvedilol 6.25 mg 6.25 mg BID PO Last administered on 01/03/17 09:06; Admin Dose 6.25 MG; Start 12/25/16 at 21:00 Meropenem 100 ml @ 200 mls/hr Q12 IVPB Last administered on 01/03/17 08:45; Admin Dose 200 MLS/HR; Start 12/28/16 at 13:00 Caspofungin/ Sodium Chloride (Cancidas/NS) 250 ml @ 250 mls/hr Q24H IVPB Last administered on 01/03/17 11:56; Admin Dose 250 MLS/HR; Start 12/29/16 at 12:00 Insulin Aspart (Novolog Insulin Pen) NOVOLOG *MODERATE* ALGORITHM Q4 SC Last administered on 01/02/17 12:32; Admin Dose 2 UNIT; Start 12/29/16 at 09:30 Insulin Glargine (Lantus) 52 unit DAILY@20 SC Last administered on 01/02/17 20: 47; Admin Dose 52 UNIT; Start 12/31/16 at 20:00 Methylprednisolone Sodium Succinate (Solu-Medrol) 40 mg Q12 IV Last administered on 01/03/17 08:46; Admin Dose 40 MG; Start 01/01/17 at 21:00 Hydralazine HCl 100 mg 100 mg Q8 PO Last administered on 01/03/17 05:21; Admin Dose 100 MG; Start 01/01/17 at 14:00 Vancomycin HCl/ Sodium Chloride (Vancocin/NS) 250 ml @ 83.333 mls/ hr Q24H IVPB Last administered on 01/02/17 16:10; Admin Dose 83.333 MLS/HR; Start at 17:00 Spironolactone (Aldactone) 25 mg DAILY PO Last administered on 01/03/17 09:05 ; Admin Dose 25 MG; Start 01/03/17 at 09:00 Miscellaneous Information (*Rx Drug Level Order Reminder*) VANCOMYCIN TROUGH AT 1600 ONCE ONCE XX ; Start 01/04/17 at 16:00; Stop 01/04/17 at 16:01 Assessment/Plan Chief Complaint/Hosp Course 1. Positive DAISY of unclear significance so far. No definite evidence of vasculitis or Lupus, Anti DS DNA and SSA/SSB are negative. May continue on steroids empirically but taper . 2. Respiratory failure. 3. Right Pleural effusion 4. Renal insufficiency Much improved. 5. Diabetes mellitus. Glucose increased on steroids. 6. Hypertension. Rec. 1. Recheck ESR and C-RP 2. Steroid dose per pulmonary. Consider further tapering. Problems: ELIZABETH PUCKETT MD January 03, 2017 13:29
[2017-01-03 16:12] LABS: AADO2 Arterial 242.5 mmHg (7.0-24.0); Allen Test ACCEPTAB; Arterial Base Excess 6.8 mmol/L (-3.0-3); Arterial COHb 0.3 % (0.0-3.0); Arterial Fraction of Oxyhgb 91.5 % (93.0-99.0); Arterial HCO3 31.3 mmol/L (22.0-26.0); Arterial MetHb 0.3 % (0.0-1.5); Arterial Total Hemglobin 11.4 g/dl (12.0-18.0); Blood Gas PS 10; MODE VENT - PSV
[2017-01-03] MEDS: VANCOMYCIN 1.5 GM in SOD CHLORIDE 0.9% 250 ML IVPB SCH (17:45)
[2017-01-03] MEDS: INSULIN GLARGINE [LANtus] 3 ML PEN SC SCH (20:35)
[2017-01-03] MEDS: ATORVASTATIN 80 MG TAB PO SCH (21:05)
[2017-01-04] VITALS (56 sets, daily range): BP systolic 86–171; BP diastolic 48–115; PULSE 48–173; RESP 0–33
[2017-01-04] MEDS: INSULIN ASPART [NOVOLOG] 3 ML PEN SC SCH ×5 (01:00→17:00)
[2017-01-04] MEDS: morphine 2 MG INJ IV PRN ×2 (01:26→23:41)
[2017-01-04] MEDS: LEVALBUTEROL (HFA) 15 GM INHALER INH SCH ×2 (01:35→07:30)
[2017-01-04] MEDS: FENTAnyl (DRIP) 1000 mcg/100mL 100 ML IV SCH ×2 (01:41→01:42)
[2017-01-04] MEDS: PROPOFOL 100 ML IV SCH ×2 (01:43→05:21)
[2017-01-04] MEDS: MIDAZOLAM (DRIP) 50 mg/50 mL 50 ML IV SCH (03:02)
[2017-01-04 04:45] LABS: ADD SCAN DIFF NO
[2017-01-04 04:56] LABS: BASOPHILS % 0.1 % (0.0-2.0); EOSINOPHILS # 0.1 10^3/ul (0.0-0.5); EOSINOPHILS % 0.8 % (0.0-7.0); HEMATOCRIT 28.2 % (42.0-52.0); HEMOGLOBIN 9.1 g/dl (14.0-18.0); LYMPHOCYTES # 0.7 10^3/ul (0.8-2.9); LYMPHOCYTES % 6.8 % (15.0-51.0); MEAN CORPUSCULAR HEMOGLOBIN 27.7 pg (29.0-33.0); MEAN CORPUSCULAR HGB CONC 32.3 g/dl (32.0-37.0); MONOCYTE # 0.3 10^3/ul (0.3-0.9); MONOCYTES % 3.4 % (0.0-11.0); NEUTROPHIL # 8.7 10^3/ul (1.6-7.5); NEUTROPHILS % 88.3 % (39.0-77.0); PLATELET COUNT 173 10^3/UL (140-415); RED BLOOD COUNT 3.28 10^6/ul (4.70-6.10); RED CELL DISTRIBUTION WIDTH 12.8 % (11.5-14.5); WHITE BLOOD COUNT 9.8 10^3/ul (4.8-10.8)
[2017-01-04 05:17] LABS: POTASSIUM 3.1 mmol/L (3.5-5.1)
[2017-01-04 05:20] LABS: CREATININE 1.25 mg/dl (0.61-1.24); PHOSPHORUS 5.4 mg/dl (2.5-4.9)
[2017-01-04 05:21] LABS: CALCIUM 7.4 mg/dl (8.4-10.2); MAGNESIUM 2.3 mg/dl (1.7-2.5)
--- NOTE | 2017-01-04 05:58 | RADRPT ---
PROCEDURE: XR Chest. CLINICAL INDICATION: Nasogastric tube placement TECHNIQUE: An AP view of the chest was obtained. COMPARISON: Chest x-ray dated 01/03/2017 FINDINGS: The endotracheal tube tip is approximately 1.9 cm above the manolo. The tip of the enteric tube pr ojects over the left upper quadrant. There is a left upper extremity PICC line with tip near the cav oatrial junction. Lung volumes are low. Evaluation of lung parenchyma is limited secondary to exposure technique. Th ere are ill-defined bilateral interstitial opacities with small bilateral pleural effusions. No pne umothorax is seen. The cardiomediastinal silhouette is mildly enlarged . The osseous structures a re unremarkable. IMPRESSION: 1. Findings suggestive of interstitial edema with small bilateral pleural effusions. Lung aeration is mildly improved when compared to the prior examination. 2. Mild cardiomegaly. 3. Tubes and lines, as described above. Nasogastric tube tip is within the gastric lumen. RPTAT: .Meenu Javier MD, MD Date Time Electronically viewed and signed by .Meenu Javier MD, MD on 01/04/2017 05:58 .G/
[2017-01-04] MEDS: FUROSEMIDE 40 MG INJ IV SCH ×2 (06:11→18:19)
[2017-01-04] MEDS ORDERED: POTASSIUM CHLORIDE 20 MEQ POWDER FOR ORAL SOLN PO ONE (08:00)
--- NOTE | 2017-01-04 08:24 | PN ---
DATE: 01/04/2017 SUBJECTIVE: The patient is currently on CPAP trial. No other acute events noted. No hemoptysis, h ematemesis, or hematochezia. OBJECTIVE: VITAL SIGNS: Blood pressure is 150/60, respirations 16, pulse 62, temperature 98.6. I's AND O'S: The patient had 2.5 liters in, 3.2 liters out. HEENT: Head is normocephalic. NECK: Supple. HEART: Regular rate. LUNGS: Show diminished breath sounds at base. ABDOMEN: Soft, nontender to palpation without rebound or guarding. EXTREMITIES: Negative for clubbing, cyanosis. Positive edema. DERMATOLOGIC: No rashes. MUSCULOSKELETAL: No joint effusions. NEUROLOGIC: No change in exam. MEDICATIONS: The patient's medications have been reviewed. LABORATORY DATA: Shows sodium 143, potassium 3.1, chloride 106, bicarbonate 32, BUN 48, creatinine 1.25, phosphorus 5.4, calcium 7.4. White count 9.8, hemoglobin 9.4, hematocrit 28.2, platelet count 173. IMAGING: The patient's chest x-ray shows findings of interstitial edema, pleural effusions, improve d aeration. ASSESSMENT AND PLAN: 1. Nonoliguric acute kidney injury with a previous baseline creatinine 1.0 mg/dL. Etiology is seco ndary to acute tubular necrosis. The patient's renal function has overall improved. There continue s to be fluctuations likely due to diuretic therapy. We will continue to monitor closely. Consider deescalation of diuretics in the next 1 to 2 days. 2. Hypokalemia. Replete potassium chloride 40 mEq p.o. x1. Continue Aldactone. 3. Volume overload secondary to acute kidney injury, diastolic heart failure. The patient is curre ntly on Lasix. Continue 4. Metabolic alkalemia secondary to diuretic therapy and hypokalemia. Would consider adding Diamox . Will follow up ABGs and monitor. 5. Hypernatremia, improved. Continue free water flushes. 6. Mineral bone disorder. Continue to monitor calcium and phosphorus levels. 7. Anemia. Continue to monitor hemoglobin and hematocrit levels. 8. Ventilator dependent respiratory failure. Vent settings have been reviewed. ABG has been revie wed. Continue to monitor. 9. Sepsis secondary to multifocal pneumonia. Continue current antibiotic regimen. 10. Non-ST elevation myocardial infarction. Continue current treatment plan. 11. Diabetes. Continue Accu-Cheks and insulin sliding scale. 12. Hypertension. Blood pressure controlled. 13. Encephalopathy. No change. 14. Positive DAISY with unclear clinical significance. Follow up with hematology. 15. History of polysubstance abuse. Please note I spent over 35 minutes critical care time with this patient. Dictated By: LUIS JOSHI/SUNDEEP Conf#: [id number] DID#: [id number]
[2017-01-04] MEDS: SEVELAMER CARBONATE 0.8 GM PKT PO SCH ×3 (08:44→18:25)
[2017-01-04] MEDS: CHOLECALCIFEROL 1,000 UNIT TAB PO SCH (08:45)
[2017-01-04] MEDS: ASPIRIN 325 MG TAB PO SCH (08:45)
[2017-01-04] MEDS: AMLODIPINE 5 MG TAB PO SCH (08:45)
[2017-01-04] MEDS: FAMOTIDINE 20 MG TAB PO SCH ×2 (08:45→21:17)
[2017-01-04] MEDS: SPIRONOLACTONE 25 MG TAB PO SCH (08:46)
[2017-01-04] MEDS: METHYLPREDNISOLONE 125 MG INJ IV SCH ×2 (08:46→21:28)
[2017-01-04] MEDS: HEPARIN 5,000 UNIT/0.5 ML VIAL SC SCH ×2 (09:07→21:25)
[2017-01-04] MEDS: DEXTROSE 50% 50 ML SYRINGE IV PRN ×2 (09:08→20:11)
[2017-01-04] MEDS: MEROPENEM 500 MG/100 ML (PMX) 100 ML IVPB SCH ×2 (09:18→22:00)
[2017-01-04] MEDS: DEXTROSE 5%-0.45% NACL 1,000 ML IV SCH ×2 (09:30→21:26)
[2017-01-04 09:44] LABS: AADO2 Arterial 242.8 mmHg (7.0-24.0); Allen Test ACCEPTAB; Arterial Base Excess 7.9 mmol/L (-3.0-3); Arterial COHb 0.2 % (0.0-3.0); Arterial Fraction of Oxyhgb 92.4 % (93.0-99.0); Arterial HCO3 31.7 mmol/L (22.0-26.0); Arterial MetHb 0.4 % (0.0-1.5); Arterial Total Hemglobin 10.5 g/dl (12.0-18.0); Blood Gas PS 10; MODE VENT - CPAP
--- NOTE | 2017-01-04 10:57 | CONS ---
Date/Time of Note Date/Time of Note DATE: 01/04/17 TIME: 10:55 Consult Date/Type/Reason Admit Date/Time Dec 15, 2016 at 11:20 Type of Consultation: Pulmonary ICU Ordering Provider: LXEII REED Subjective Patient awake alert comfortable this morning on CPAP weaning trial Follow simple commands Adequate tidal volumes Objective Vital Signs Date Time Temp Pulse Resp B/P Pulse Ox O2 Delivery O2 Flow Rate FiO2 01/04/17 08:00 75 01/04/17 06:30 16 115/62 100 01/04/17 06:00 Mechanical Ventilator 01/04/17 05:23 60 01/04/17 04:00 97.8 Intake and Output 01/03/17 01/03/17 01/04/17 15:00 23:00 07:00 Intake Total 898.5 ml 1136.69 ml 394.73 ml Output Total 1525 ml 795 ml 610 ml Balance -626.5 ml 341.69 ml -215.27 ml Exam PHYSICAL EXAMINATION GENERAL: Young gentleman intubated sedated on mechanical ventilation VITAL SIGNS: see below. HEENT: Pupils equal, round, and reactive to light. CARDIAC: S1, S2, no added sounds or murmurs CHEST: Diminished air entry bilaterally. ABDOMEN: Mildly distended. Bowel sounds present. EXTREMITIES: No cyanosis, clubbing edema +1 NEUROLOGIC: generalized weakness but follows simple commands Results/Medications Result Diagram: 01/04/17 0425 01/04/17 0425 Results 24 hrs Laboratory Tests Test 01/03/17 12:01 01/03/17 16:04 01/03/17 17:48 01/03/17 19:55 Bedside Glucose 103 101 104 Blood Gas Specimen Source Blood arterial Arterial Blood Date Drawn 01/03/2017 3:50:22 PM Arterial Blood pH (Temp corrected) 7.468 H Arterial Blood pCO2 (Temp correct) 44.2 Arterial Blood pO2 (Temp corrected) 64.3 L Arterial Blood HCO3 31.3 H Arterial Blood Base Excess 6.8 H Arterial Blood Oxygen Saturation 92.1 L Leobardo Test ACCEPTAB Arterial Blood Gas Puncture Site Right Radial Arterial Blood Carboxyhemoglobin 0.3 Arterial Blood Methemoglobin 0.3 Blood Gas A-a O2 Differential 242.5 H Oxyhemoglobin Percent 91.5 L Total Hemoglobin 11.4 L Blood Gas Temperature 37.0 Blood Gas Actual Respiration Rate 25 Blood Gas Modality VENT - PSV FiO2 50.0 Blood Gas Tidal Volume 465.0 Blood Gas Low PEEP Setting 5.0 Blood Gas Pressure Support 10 Blood Gas Notified Whom JAS RT Blood Gas Notified Time 01/03/2017 4:11:46 PM Test 01/03/17 21:07 01/04/17 01:18 01/04/17 04:25 01/04/17 05:06 Bedside Glucose 98 103 82 White Blood Count 9.8 Red Blood Count 3.28 L Hemoglobin 9.1 L Hematocrit 28.2 L Mean Corpuscular Volume 86.0 Mean Corpuscular Hemoglobin 27.7 L Mean Corpuscular Hemoglobin Concent 32.3 Red Cell Distribution Width 12.8 Platelet Count 173 Mean Platelet Volume 12.0 H Neutrophils % 88.3 H Lymphocytes % 6.8 L Monocytes % 3.4 Eosinophils % 0.8 Basophils % 0.1 Nucleated Red Blood Cells % 0.0 Neutrophils # 8.7 H Lymphocytes # 0.7 L Monocytes # 0.3 Eosinophils # 0.1 Basophils # 0.0 Nucleated Red Blood Cells # 0.0 Erythrocyte Sedimentation Rate 50 H Sodium Level 143 Potassium Level 3.1 L Chloride Level 106 Carbon Dioxide Level 32 H Anion Gap 8 Blood Urea Nitrogen 48 H Creatinine 1.25 H Glucose Level 83 Calcium Level 7.4 L Phosphorus Level 5.4 H Magnesium Level 2.3 C-Reactive Protein 1.0 H Test 01/04/17 08:58 01/04/17 09:20 01/04/17 09:29 01/04/17 09:52 Bedside Glucose 63 L 95 89 Blood Gas Specimen Source Blood arterial Arterial Blood Date Drawn 01/04/2017 9:30:56 AM Arterial Blood pH (Temp corrected) 7.503 H Arterial Blood pCO2 (Temp correct) 41.3 Arterial Blood pO2 (Temp corrected) 67.2 L Arterial Blood HCO3 31.7 H Arterial Blood Base Excess 7.9 H Arterial Blood Oxygen Saturation 93.0 L Leobardo Test ACCEPTAB Arterial Blood Gas Puncture Site Right Radial Arterial Blood Carboxyhemoglobin 0.2 Arterial Blood Methemoglobin 0.4 Blood Gas A-a O2 Differential 242.8 H Oxyhemoglobin Percent 92.4 L Total Hemoglobin 10.5 L Blood Gas Temperature 37.0 Blood Gas Actual Respiration Rate 20 Blood Gas Modality VENT - CPAP FiO2 50.0 Blood Gas Low PEEP Setting 5.0 Blood Gas Pressure Support 10 Blood Gas Notified Whom JLD Blood Gas Notified Time 01/04/2017 9:44:37 AM Medications Current Medications Ondansetron HCl (Zofran Inj) 4 mg Q6H PRN IV NAUSEA AND/OR VOMITING; Start at 13:00 Acetaminophen (Tylenol Tab) 650 mg Q6H PRN PO PAIN LEVEL 1-3 OR FEVER Last administered on 12/29/16 06:02; Admin Dose 650 MG; Start 12/15/16 at 13:00 Acetaminophen/ Hydrocodone Bitart ([place] (5/325)) 1 tab Q6H PRN PO PAIN LEVEL 4 -6 Last administered on 12/15/16 22:08; Admin Dose 1 TAB; Start 12/15/16 at 13: 00 Morphine Sulfate (morphine) 2 mg Q4H PRN IV PAIN LEVEL 7-10 Last administered on 01/04/17 01:26; Admin Dose 2 MG; Start 12/15/16 at 13:00 Magnesium Hydroxide (Milk Of Mag) 30 ml DAILY PRN PO CONSTIPATION Last administered on 01/02/17 02:07; Admin Dose 30 ML; Start 12/15/16 at 13:00 Bisacodyl (Dulcolax) 5 mg DAILY PRN PO CONSTIPATION Last administered on 17:44; Admin Dose 5 MG; Start 12/15/16 at 13:00 Famotidine (Pepcid) 20 mg Q12 PO Last administered on 01/04/17 08:45; Admin Dose 20 MG; Start 12/15/16 at 21:00 Hydralazine HCl (Apresoline) 10 mg Q6H PRN IV SBP>160 Last administered on 04:53; Admin Dose 10 MG; Start 12/15/16 at 13:00 Aspirin (Aspirin) 325 mg DAILY PO Last administered on 01/04/17 08:45; Admin Dose 325 MG; Start 12/16/16 at 09:00 Atorvastatin Calcium (Lipitor) 80 mg QHS PO Last administered on 01/03/17 21: 05; Admin Dose 80 MG; Start 12/15/16 at 21:00 Heparin Sodium (Porcine) (Heparin (5000 Units/0.5 ml)) 5,000 unit BID SC Last administered on 01/04/17 09:07; Admin Dose 5,000 UNIT; Start 12/15/16 at 21:00 Miscellaneous Information 1 ea NOTE XX ; Start 12/15/16 at 14:00 Glucose (Glutose) 15 gm Q15M PRN PO DECREASED GLUCOSE; Start 12/15/16 at 14:00 Glucose (Glutose) 22.5 gm Q15M PRN PO DECREASED GLUCOSE; Start 12/15/16 at 14: 00 Glucagon (Glucagen) 1 mg Q15M PRN IM DECREASED GLUCOSE; Start 12/15/16 at 14:00 Glucose (Glutose) 15 gm Q15M PRN BUCCAL DECREASED GLUCOSE; Start 12/15/16 at 14 :00 Cholecalciferol 1000 unit 1,000 unit DAILY PO Last administered on 01/04/17 08 :45; Admin Dose 1,000 UNIT; Start 12/16/16 at 09:00 Fentanyl (Sublimaze) 100 ml @ 2.5 mls/hr TITRATE IV Last administered on 01:42; Admin Dose 10 MLS/HR; Start 12/18/16 at 03:30 Dextrose (D50w Syringe) 25 ml Q15M PRN IV Till BS 80 mg/dL or above x2 Last administered on 01/04/17 09:08; Admin Dose 25 ML; Start 12/18/16 at 14:00 Dextrose (D50w Syringe) 50 ml Q15M PRN IV Till BS 80 mg/dL or above x2; Start 12/18/16 at 14:00 IV Flush 10 ml 10 ml PRN PRN IV IV PROTOCOL; Start 12/18/16 at 17:00 Norepinephrine/ Dextrose (Levophed/D5W) 250 ml @ 0.46 mls/hr TITRATE IV ; Start 12/19/16 at 09:30 Amlodipine Besylate 5 mg 5 mg DAILY PO Last administered on 01/04/17 08:45; Admin Dose 5 MG; Start 12/21/16 at 09:00 Midazolam HCl 50 ml @ 1 mls/hr TITRATE IV Last administered on 01/04/17 03:02 ; Admin Dose 10 MLS/HR; Start 12/20/16 at 14:00 Propofol (Diprivan) 100 ml @ 3.255 mls/ hr Q12H IV Last administered on 05:21; Admin Dose 13.02 MLS/HR; Start 12/20/16 at 20:30 Hydralazine HCl (Apresoline) 10 mg Q4H PRN IV sbp > 160 Last administered on 22:35; Admin Dose 10 MG; Start 12/22/16 at 06:30 Lorazepam (Ativan) 1 mg Q1H PRN IV agitation Last administered on 12/29/16 16: 35; Admin Dose 1 MG; Start 12/25/16 at 03:30 Carvedilol 6.25 mg 6.25 mg BID PO Last administered on 01/04/17 08:44; Admin Dose 6.25 MG; Start 12/25/16 at 21:00 Meropenem 100 ml @ 200 mls/hr Q12 IVPB Last administered on 01/04/17 09:18; Admin Dose 200 MLS/HR; Start 12/28/16 at 13:00 Caspofungin/ Sodium Chloride (Cancidas/NS) 250 ml @ 250 mls/hr Q24H IVPB Last administered on 01/03/17 11:56; Admin Dose 250 MLS/HR; Start 12/29/16 at 12:00 Insulin Aspart (Novolog Insulin Pen) NOVOLOG *MODERATE* ALGORITHM Q4 SC Last administered on 01/02/17 12:32; Admin Dose 2 UNIT; Start 12/29/16 at 09:30 Insulin Glargine (Lantus) 52 unit DAILY@20 SC Last administered on 01/03/17 20 :35; Admin Dose 52 UNIT; Start 12/31/16 at 20:00 Methylprednisolone Sodium Succinate (Solu-Medrol) 40 mg Q12 IV Last administered on 01/04/17 08:46; Admin Dose 40 MG; Start 01/01/17 at 21:00 Hydralazine HCl 100 mg 100 mg Q8 PO Last administered on 01/03/17 22:25; Admin Dose 100 MG; Start 01/01/17 at 14:00 Vancomycin HCl/ Sodium Chloride (Vancocin/NS) 250 ml @ 83.333 mls/ hr Q24H IVPB Last administered on 01/03/17 17:45; Admin Dose 83.333 MLS/HR; Start 01/01 at 17:00 Spironolactone (Aldactone) 25 mg DAILY PO Last administered on 01/04/17 08:46 ; Admin Dose 25 MG; Start 01/03/17 at 09:00 Miscellaneous Information VANCOMYCIN TROUGH AT 1600 ONCE ONCE XX ; Start 01/04/17 at 16:00; Stop 01/04/17 at 16:01 Dextrose/Sodium Chloride (D5-1/2ns) 1,000 ml @ 75 mls/hr [id number] IV Last administered on 01/04/17 09:30; Admin Dose 75 MLS/HR; Start 01/04/17 at 09:30 Assessment/Plan Chief Complaint/Hosp Course Assessment 1. Acute hypoxemic respiratory failure possible healthcare associated pneumonia with underlying pulmonary edema ultrasound demonstrated no pleural effusion 2. Workup for vasculitis will decrease steroids. Appreciate rheumatology recommendations. 3. Diabetes mellitus 4. Renal insufficiency possible ATN injury improved Plan 1. CPAP weaning trial this morning extubated if stable 2. Decrease FiO2 as tolerated 3. Continue low-dose steroids 4. Continue broad-spectrum antibiotics 5. Diuretics as tolerated Disposition Continue ICU care Speech therapy evaluation in a.m. Incentive spirometry PT eval Problems: VERO SOTO MD, [facility] January 04, 2017 10:57
--- NOTE | 2017-01-04 11:23 | RADRPT ---
PROCEDURE: XR Chest. CLINICAL INDICATION: Shortness of breath. TECHNIQUE: Single frontal view. COMPARISON: 01/04/2017. 0427 hours. FINDINGS: The endotracheal tube has been removed. The nasogastric tube and left arm PICC line remain in [employer] position. There are low lung volumes and atelectasis at the lung bases, unchanged. The renu gs are otherwise clear. The heart size is normal. There are small bilateral pleural effusions. There is no pneumothorax. IMPRESSION: 1. Endotracheal tube removed. 2. No other change from the prior study done earlier the same day. RPTAT: QQ .Chon Carcamo MD, MD Date Time Electronically viewed and signed by .Chon Carcamo MD, MD on 01/04/2017 11:23 .R/
[2017-01-04] MEDS: CASPOFUNGIN 50 MG in SOD CHLORIDE 0.9% 250 ML IVPB SCH (12:35)
--- NOTE | 2017-01-04 12:35 | PN ---
Date/Time of Note Date/Time of Note DATE: 01/04/17 TIME: 12:34 Assessment/Plan VTE Prophylaxis VTE Prophylaxis Intervention: heparin Lines/Catheters IV C[facility] Type (from [facility] PICC Line Central line still needed: Yes Urinary Cath still in place: Yes Reason Cath still needed: urinary retention Assessment/Plan Chief Complaint/Hosp Course A/P: 41 M with: 1. Sepsis secondary to underlying community-acquired pneumonia with septic shock. Currently off pressors. On ABX as per ID. Mycoplasma serology abnormal. 2. Acute hypoxic respiratory failure. Most probably secondary to underlying pneumonia versus others. Patient got intubated on 12/18/2016, extubated today 07/13. Continue inhaled bronchodilators. Pulmonology following the patient. 3. Elevated troponins. Most probably a type 2 event from underlying sepsis and underlying acute kidney injury. Cardiology following. 4. Acute kidney injury. The patient had a normal creatinine of 1.00 on 2015. The patient's current acute kidney injury could be most probably secondary to dehydration from persistent vomiting - improving now. The patient' s nephrotoxic drugs will be held at this time. Being followed by nephrology. 5. Type 2 diabetes mellitus. Uncontrolled. A1C is high (send out). The patient will be maintained on sliding scale insulin along with basal insulin. 6. Dyslipidemia. Continue statins. 7. Essential hypertension. Continue antihypertensives. 8. Hypocalcemia. Probably secondary to underlying hypoalbuminemia. 9. Microcytic, hypochromic anemia. Etiology unclear. Iron panel showing iron deficiency. Continue iron supplements. 10. Vitamin D deficiency. Continue supplements. 11. Fluids, electrolytes, and nutrition. Tube feedings. 12. DVT prophylaxis. Subcutaneous heparin. 13. Gastrointestinal prophylaxis. Histamine 2 receptor blockers. 14. Plan. Continue antibiotics. Continue ventilator support. Ventilator weaning as per Pulmonary. Adjust insulin to obtain optimal blood sugar control. 15. Positive DAISY with unclear clinical significance. Continue to monitor. Critical care time: 40 minutes. Problems: Subjective 24 Hr Interval Summary Free Text/Dictation Pt extubated today, on simple mask. Exam/Review of Systems Vital Signs Vitals Vital Signs Date Time Temp Pulse Resp B/P Pulse Ox O2 Delivery O2 Flow Rate FiO2 01/04/17 11:10 90 6.0 01/04/17 09:10 70 23 50 01/04/17 06:30 115/62 01/04/17 06:00 Mechanical Ventilator 01/04/17 04:00 97.8 Intake and Output 01/03/17 01/03/17 01/04/17 14:59 22:59 06:59 Intake Total 968.0 ml 964.65 ml 576.77 ml Output Total 1750 ml 835 ml 695 ml Balance -782.0 ml 129.65 ml -118.23 ml Exam GENERAL: This is a morbidly obese male lying in bed, now on simple mask HEENT: Head normocephalic and atraumatic. Eyes: Anicteric sclerae. Conjunctivae clear. ENT: Nasal septum is midline. Oral mucosa is dry. NECK: Short with increased neck circumference. RESPIRATORY: Bilaterally diminished breath sounds. On mechanical ventilator. CARDIAC: Regular rate and rhythm. S1, S2 heard. ABDOMEN: Soft, nontender and nondistended. Bowel sounds positive in all 4 quadrants. EXTREMITIES: No cyanosis, no clubbing. B/L LE edema. Pedal pulses palpable. Status post left great toe amputation. NEUROLOGIC: The patient is sedated. Results Result Diagram: 01/04/17 0425 01/04/17 0425 Results 24 hrs Laboratory Tests Test 01/03/17 16:04 01/03/17 17:48 01/03/17 19:55 01/03/17 21:07 Blood Gas Specimen Source Blood arterial Arterial Blood Date Drawn 01/03/2017 3:50:22 PM Arterial Blood pH (Temp corrected) 7.468 H Arterial Blood pCO2 (Temp correct) 44.2 Arterial Blood pO2 (Temp corrected) 64.3 L Arterial Blood HCO3 31.3 H Arterial Blood Base Excess 6.8 H Arterial Blood Oxygen Saturation 92.1 L Leobardo Test ACCEPTAB Arterial Blood Gas Puncture Site Right Radial Arterial Blood Carboxyhemoglobin 0.3 Arterial Blood Methemoglobin 0.3 Blood Gas A-a O2 Differential 242.5 H Oxyhemoglobin Percent 91.5 L Total Hemoglobin 11.4 L Blood Gas Temperature 37.0 Blood Gas Actual Respiration Rate 25 Blood Gas Modality VENT - PSV FiO2 50.0 Blood Gas Tidal Volume 465.0 Blood Gas Low PEEP Setting 5.0 Blood Gas Pressure Support 10 Blood Gas Notified Whom JAS VANG Blood Gas Notified Time 01/03/2017 4:11:46 PM Bedside Glucose 101 104 98 Test 01/04/17 01:18 01/04/17 04:25 01/04/17 05:06 01/04/17 08:58 Bedside Glucose 103 82 63 L White Blood Count 9.8 Red Blood Count 3.28 L Hemoglobin 9.1 L Hematocrit 28.2 L Mean Corpuscular Volume 86.0 Mean Corpuscular Hemoglobin 27.7 L Mean Corpuscular Hemoglobin Concent 32.3 Red Cell Distribution Width 12.8 Platelet Count 173 Mean Platelet Volume 12.0 H Neutrophils % 88.3 H Lymphocytes % 6.8 L Monocytes % 3.4 Eosinophils % 0.8 Basophils % 0.1 Nucleated Red Blood Cells % 0.0 Neutrophils # 8.7 H Lymphocytes # 0.7 L Monocytes # 0.3 Eosinophils # 0.1 Basophils # 0.0 Nucleated Red Blood Cells # 0.0 Erythrocyte Sedimentation Rate 50 H Sodium Level 143 Potassium Level 3.1 L Chloride Level 106 Carbon Dioxide Level 32 H Anion Gap 8 Blood Urea Nitrogen 48 H Creatinine 1.25 H Glucose Level 83 Calcium Level 7.4 L Phosphorus Level 5.4 H Magnesium Level 2.3 C-Reactive Protein 1.0 H Test 01/04/17 09:20 01/04/17 09:29 01/04/17 09:52 01/04/17 12:31 Blood Gas Specimen Source Blood arterial Arterial Blood Date Drawn 01/04/2017 9:30:56 AM Arterial Blood pH (Temp corrected) 7.503 H Arterial Blood pCO2 (Temp correct) 41.3 Arterial Blood pO2 (Temp corrected) 67.2 L Arterial Blood HCO3 31.7 H Arterial Blood Base Excess 7.9 H Arterial Blood Oxygen Saturation 93.0 L Leobardo Test ACCEPTAB Arterial Blood Gas Puncture Site Right Radial Arterial Blood Carboxyhemoglobin 0.2 Arterial Blood Methemoglobin 0.4 Blood Gas A-a O2 Differential 242.8 H Oxyhemoglobin Percent 92.4 L Total Hemoglobin 10.5 L Blood Gas Temperature 37.0 Blood Gas Actual Respiration Rate 20 Blood Gas Modality VENT - CPAP FiO2 50.0 Blood Gas Low PEEP Setting 5.0 Blood Gas Pressure Support 10 Blood Gas Notified Whom JLD Blood Gas Notified Time 01/04/2017 9:44:37 AM Bedside Glucose 95 89 82 Medications Medications Current Medications Ondansetron HCl (Zofran Inj) 4 mg Q6H PRN IV NAUSEA AND/OR VOMITING; Start at 13:00 Acetaminophen (Tylenol Tab) 650 mg Q6H PRN PO PAIN LEVEL 1-3 OR FEVER Last administered on 12/29/16 06:02; Admin Dose 650 MG; Start 12/15/16 at 13:00 Acetaminophen/ Hydrocodone Bitart ([place] (5/325)) 1 tab Q6H PRN PO PAIN LEVEL 4 -6 Last administered on 12/15/16 22:08; Admin Dose 1 TAB; Start 12/15/16 at 13: 00 Morphine Sulfate (morphine) 2 mg Q4H PRN IV PAIN LEVEL 7-10 Last administered on 01/04/17 01:26; Admin Dose 2 MG; Start 12/15/16 at 13:00 Magnesium Hydroxide (Milk Of Mag) 30 ml DAILY PRN PO CONSTIPATION Last administered on 01/02/17 02:07; Admin Dose 30 ML; Start 12/15/16 at 13:00 Bisacodyl (Dulcolax) 5 mg DAILY PRN PO CONSTIPATION Last administered on 17:44; Admin Dose 5 MG; Start 12/15/16 at 13:00 Famotidine (Pepcid) 20 mg Q12 PO Last administered on 01/04/17 08:45; Admin Dose 20 MG; Start 12/15/16 at 21:00 Hydralazine HCl (Apresoline) 10 mg Q6H PRN IV SBP>160 Last administered on 04:53; Admin Dose 10 MG; Start 12/15/16 at 13:00 Aspirin (Aspirin) 325 mg DAILY PO Last administered on 01/04/17 08:45; Admin Dose 325 MG; Start 12/16/16 at 09:00 Atorvastatin Calcium (Lipitor) 80 mg QHS PO Last administered on 01/03/17 21: 05; Admin Dose 80 MG; Start 12/15/16 at 21:00 Heparin Sodium (Porcine) (Heparin (5000 Units/0.5 ml)) 5,000 unit BID SC Last administered on 01/04/17 09:07; Admin Dose 5,000 UNIT; Start 12/15/16 at 21:00 Miscellaneous Information 1 ea NOTE XX ; Start 12/15/16 at 14:00 Glucose (Glutose) 15 gm Q15M PRN PO DECREASED GLUCOSE; Start 12/15/16 at 14:00 Glucose (Glutose) 22.5 gm Q15M PRN PO DECREASED GLUCOSE; Start 12/15/16 at 14: 00 Glucagon (Glucagen) 1 mg Q15M PRN IM DECREASED GLUCOSE; Start 12/15/16 at 14:00 Glucose (Glutose) 15 gm Q15M PRN BUCCAL DECREASED GLUCOSE; Start 12/15/16 at 14 :00 Cholecalciferol 1000 unit 1,000 unit DAILY PO Last administered on 01/04/17 08 :45; Admin Dose 1,000 UNIT; Start 12/16/16 at 09:00 Fentanyl (Sublimaze) 100 ml @ 2.5 mls/hr TITRATE IV Last administered on 01:42; Admin Dose 10 MLS/HR; Start 12/18/16 at 03:30 Dextrose (D50w Syringe) 25 ml Q15M PRN IV Till BS 80 mg/dL or above x2 Last administered on 01/04/17 09:08; Admin Dose 25 ML; Start 12/18/16 at 14:00 Dextrose (D50w Syringe) 50 ml Q15M PRN IV Till BS 80 mg/dL or above x2; Start 12/18/16 at 14:00 IV Flush 10 ml 10 ml PRN PRN IV IV PROTOCOL; Start 12/18/16 at 17:00 Norepinephrine/ Dextrose (Levophed/D5W) 250 ml @ 0.46 mls/hr TITRATE IV ; Start 12/19/16 at 09:30 Amlodipine Besylate 5 mg 5 mg DAILY PO Last administered on 01/04/17 08:45; Admin Dose 5 MG; Start 12/21/16 at 09:00 Midazolam HCl 50 ml @ 1 mls/hr TITRATE IV Last administered on 01/04/17 03:02 ; Admin Dose 10 MLS/HR; Start 12/20/16 at 14:00 Propofol (Diprivan) 100 ml @ 3.255 mls/ hr Q12H IV Last administered on 05:21; Admin Dose 13.02 MLS/HR; Start 12/20/16 at 20:30 Hydralazine HCl (Apresoline) 10 mg Q4H PRN IV sbp > 160 Last administered on 22:35; Admin Dose 10 MG; Start 12/22/16 at 06:30 Lorazepam (Ativan) 1 mg Q1H PRN IV agitation Last administered on 12/29/16 16: 35; Admin Dose 1 MG; Start 12/25/16 at 03:30 Carvedilol 6.25 mg 6.25 mg BID PO Last administered on 01/04/17 08:44; Admin Dose 6.25 MG; Start 12/25/16 at 21:00 Meropenem 100 ml @ 200 mls/hr Q12 IVPB Last administered on 01/04/17 09:18; Admin Dose 200 MLS/HR; Start 12/28/16 at 13:00 Caspofungin/ Sodium Chloride (Cancidas/NS) 250 ml @ 250 mls/hr Q24H IVPB Last administered on 01/03/17 11:56; Admin Dose 250 MLS/HR; Start 12/29/16 at 12:00 Insulin Aspart (Novolog Insulin Pen) NOVOLOG *MODERATE* ALGORITHM Q4 SC Last administered on 01/02/17 12:32; Admin Dose 2 UNIT; Start 12/29/16 at 09:30 Insulin Glargine (Lantus) 52 unit DAILY@20 SC Last administered on 01/03/17 20 :35; Admin Dose 52 UNIT; Start 12/31/16 at 20:00 Methylprednisolone Sodium Succinate (Solu-Medrol) 40 mg Q12 IV Last administered on 01/04/17 08:46; Admin Dose 40 MG; Start 01/01/17 at 21:00 Hydralazine HCl 100 mg 100 mg Q8 PO Last administered on 01/03/17 22:25; Admin Dose 100 MG; Start 01/01/17 at 14:00 Vancomycin HCl/ Sodium Chloride (Vancocin/NS) 250 ml @ 83.333 mls/ hr Q24H IVPB Last administered on 01/03/17 17:45; Admin Dose 83.333 MLS/HR; Start 01/01 at 17:00 Spironolactone (Aldactone) 25 mg DAILY PO Last administered on 01/04/17 08:46 ; Admin Dose 25 MG; Start 01/03/17 at 09:00 Miscellaneous Information VANCOMYCIN TROUGH AT 1600 ONCE ONCE XX ; Start 01/04/17 at 16:00; Stop 01/04/17 at 16:01 Dextrose/Sodium Chloride (D5-1/2ns) 1,000 ml @ 75 mls/hr [id number] IV Last administered on 01/04/17t 09:30; Admin Dose 75 MLS/HR; Start 01/04/17 at 09:30 CLARITA VERMA January 04, 2017 12:35
--- NOTE | 2017-01-04 12:57 | CONS ---
Date/Time of Note Date/Time of Note DATE: 01/04/17 TIME: 12:53 Assessment/Plan Assessment/Plan Chief Complaint/Hosp Course IMPRESSION: 1. Positive troponin, assess significance.-no sig uptrend/likely demand event in settng fevers/tachy/resp distress 2. Abnormal electrocardiogram with ST depressions with tachycardia and positive troponin, likely indicative of coronary artery disease.-improved ecg findings with improved HR 3. Hypertension, uncontrolled mildly still 4. Dyslipidemia. 5. Diabetes mellitus. 6. Fevers to 104 documented here in the hospital.-ongoing low grade 7. Renal failure.-acute on chronic/ ? secondary to vasculitic syndrome 8. Lower extremity edema, assess for congestive heart failure/CHF-diastolic acute on chronic 9. Nausea and vomiting. 10. Chest pain with cough initially on admit 11.Resp failure s/p extubation 12. Bradycardia-to 40's.Now improved and tolerating BB Recc: -Tele -serial ecg's -Continue asa/statin -Continue abx's and f/u cx data -Continue bronchodilators and steroids. -Follow volume status closely and continue lasix diuresis and [id number] resp status closely s/p extubation -wean vent as tolerated -Continue hydralazine/norvasc and follow BP closely -Continue coreg and follow HR closely -Ongoing eval for vasculitic syndrome per rheum Problems: Consultation Date/Type/Reason Admit Date/Time Dec 15, 2016 at 11:20 Initial Consult Date 12/15/2016 Type of Consultation: Cardiology Reason for Consultation Positive troponin Referring Provider: LEXII REED Exam/Review of Systems Vital Signs Vitals Vital Signs Date Time Temp Pulse Resp B/P Pulse Ox O2 Delivery O2 Flow Rate FiO2 01/04/17 12:00 82 01/04/17 11:10 90 6.0 01/04/17 09:10 23 50 01/04/17 06:30 115/62 01/04/17 06:00 Mechanical Ventilator 01/04/17 04:00 97.8 Intake and Output 01/03/17 01/03/17 01/04/17 15:00 23:00 07:00 Intake Total 898.5 ml 1136.69 ml 394.73 ml Output Total 1525 ml 795 ml 610 ml Balance -626.5 ml 341.69 ml -215.27 ml Exam Review of Systems: CONSTITUTIONAL: No fevers, chills. PULMONARY: s/p extubation CARDIOVASCULAR: No obvious chest pain/palpitations GASTROINTESTINAL: No nausea/vomiting. GENITOURINARY: No hematuria/dysuria. MUSCULOSKELETAL: No myagias/arthalgias. PSYCHIATRIC: The patient denies depression. NEUROLOGIC: No weakness Constitutional: other (sleeping but esaily arousable) Psych: no complaints Head: normocephalic ENMT: mucosa pink and moist Neck: jvd (9 cm water), supple Respiratory: diminished breath sounds (at bases/B) Cardiovascular: regular rate and rhythm Gastrointestinal: non-tender, soft Musculoskeletal: other (No focal deficits) Results Result Diagram: 01/04/17 0425 01/04/17 0425 Results 24 hrs Laboratory Tests Test 01/03/17 16:04 01/03/17 17:48 01/03/17 19:55 01/03/17 21:07 Blood Gas Specimen Source Blood arterial Arterial Blood Date Drawn 01/03/2017 3:50:22 PM Arterial Blood pH (Temp corrected) 7.468 H Arterial Blood pCO2 (Temp correct) 44.2 Arterial Blood pO2 (Temp corrected) 64.3 L Arterial Blood HCO3 31.3 H Arterial Blood Base Excess 6.8 H Arterial Blood Oxygen Saturation 92.1 L Leobardo Test ACCEPTAB Arterial Blood Gas Puncture Site Right Radial Arterial Blood Carboxyhemoglobin 0.3 Arterial Blood Methemoglobin 0.3 Blood Gas A-a O2 Differential 242.5 H Oxyhemoglobin Percent 91.5 L Total Hemoglobin 11.4 L Blood Gas Temperature 37.0 Blood Gas Actual Respiration Rate 25 Blood Gas Modality VENT - PSV FiO2 50.0 Blood Gas Tidal Volume 465.0 Blood Gas Low PEEP Setting 5.0 Blood Gas Pressure Support 10 Blood Gas Notified Whom JAS VANG Blood Gas Notified Time 01/03/2017 4:11:46 PM Bedside Glucose 101 104 98 Test 01/04/17 01:18 01/04/17 04:25 01/04/17 05:06 01/04/17 08:58 Bedside Glucose 103 82 63 L White Blood Count 9.8 Red Blood Count 3.28 L Hemoglobin 9.1 L Hematocrit 28.2 L Mean Corpuscular Volume 86.0 Mean Corpuscular Hemoglobin 27.7 L Mean Corpuscular Hemoglobin Concent 32.3 Red Cell Distribution Width 12.8 Platelet Count 173 Mean Platelet Volume 12.0 H Neutrophils % 88.3 H Lymphocytes % 6.8 L Monocytes % 3.4 Eosinophils % 0.8 Basophils % 0.1 Nucleated Red Blood Cells % 0.0 Neutrophils # 8.7 H Lymphocytes # 0.7 L Monocytes # 0.3 Eosinophils # 0.1 Basophils # 0.0 Nucleated Red Blood Cells # 0.0 Erythrocyte Sedimentation Rate 50 H Sodium Level 143 Potassium Level 3.1 L Chloride Level 106 Carbon Dioxide Level 32 H Anion Gap 8 Blood Urea Nitrogen 48 H Creatinine 1.25 H Glucose Level 83 Calcium Level 7.4 L Phosphorus Level 5.4 H Magnesium Level 2.3 C-Reactive Protein 1.0 H Test 01/04/17 09:20 01/04/17 09:29 01/04/17 09:52 01/04/17 12:31 Blood Gas Specimen Source Blood arterial Arterial Blood Date Drawn 01/04/2017 9:30:56 AM Arterial Blood pH (Temp corrected) 7.503 H Arterial Blood pCO2 (Temp correct) 41.3 Arterial Blood pO2 (Temp corrected) 67.2 L Arterial Blood HCO3 31.7 H Arterial Blood Base Excess 7.9 H Arterial Blood Oxygen Saturation 93.0 L Leobardo Test ACCEPTAB Arterial Blood Gas Puncture Site Right Radial Arterial Blood Carboxyhemoglobin 0.2 Arterial Blood Methemoglobin 0.4 Blood Gas A-a O2 Differential 242.8 H Oxyhemoglobin Percent 92.4 L Total Hemoglobin 10.5 L Blood Gas Temperature 37.0 Blood Gas Actual Respiration Rate 20 Blood Gas Modality VENT - CPAP FiO2 50.0 Blood Gas Low PEEP Setting 5.0 Blood Gas Pressure Support 10 Blood Gas Notified Whom MARIOD Blood Gas Notified Time 01/04/2017 9:44:37 AM Bedside Glucose 95 89 82 Medications Medications Current Medications Ondansetron HCl (Zofran Inj) 4 mg Q6H PRN IV NAUSEA AND/OR VOMITING; Start at 13:00 Acetaminophen (Tylenol Tab) 650 mg Q6H PRN PO PAIN LEVEL 1-3 OR FEVER Last administered on 12/29/16 06:02; Admin Dose 650 MG; Start 12/15/16 at 13:00 Acetaminophen/ Hydrocodone Bitart ([place] (5/325)) 1 tab Q6H PRN PO PAIN LEVEL 4 -6 Last administered on 12/15/16 22:08; Admin Dose 1 TAB; Start 12/15/16 at 13: 00 Morphine Sulfate (morphine) 2 mg Q4H PRN IV PAIN LEVEL 7-10 Last administered on 01/04/17 01:26; Admin Dose 2 MG; Start 12/15/16 at 13:00 Magnesium Hydroxide (Milk Of Mag) 30 ml DAILY PRN PO CONSTIPATION Last administered on 01/02/17 02:07; Admin Dose 30 ML; Start 12/15/16 at 13:00 Bisacodyl (Dulcolax) 5 mg DAILY PRN PO CONSTIPATION Last administered on 17:44; Admin Dose 5 MG; Start 12/15/16 at 13:00 Famotidine (Pepcid) 20 mg Q12 PO Last administered on 01/04/17 08:45; Admin Dose 20 MG; Start 12/15/16 at 21:00 Hydralazine HCl (Apresoline) 10 mg Q6H PRN IV SBP>160 Last administered on 04:53; Admin Dose 10 MG; Start 12/15/16 at 13:00 Aspirin (Aspirin) 325 mg DAILY PO Last administered on 01/04/17 08:45; Admin Dose 325 MG; Start 12/16/16 at 09:00 Atorvastatin Calcium (Lipitor) 80 mg QHS PO Last administered on 01/03/17 21: 05; Admin Dose 80 MG; Start 12/15/16 at 21:00 Heparin Sodium (Porcine) (Heparin (5000 Units/0.5 ml)) 5,000 unit BID SC Last administered on 01/04/17 09:07; Admin Dose 5,000 UNIT; Start 12/15/16 at 21:00 Miscellaneous Information 1 ea NOTE XX ; Start 12/15/16 at 14:00 Glucose (Glutose) 15 gm Q15M PRN PO DECREASED GLUCOSE; Start 12/15/16 at 14:00 Glucose (Glutose) 22.5 gm Q15M PRN PO DECREASED GLUCOSE; Start 12/15/16 at 14: 00 Glucagon (Glucagen) 1 mg Q15M PRN IM DECREASED GLUCOSE; Start 12/15/16 at 14:00 Glucose (Glutose) 15 gm Q15M PRN BUCCAL DECREASED GLUCOSE; Start 12/15/16 at 14 :00 Cholecalciferol 1000 unit 1,000 unit DAILY PO Last administered on 01/04/17 08 :45; Admin Dose 1,000 UNIT; Start 12/16/16 at 09:00 Fentanyl (Sublimaze) 100 ml @ 2.5 mls/hr TITRATE IV Last administered on 01:42; Admin Dose 10 MLS/HR; Start 12/18/16 at 03:30 Dextrose (D50w Syringe) 25 ml Q15M PRN IV Till BS 80 mg/dL or above x2 Last administered on 01/04/17 09:08; Admin Dose 25 ML; Start 12/18/16 at 14:00 Dextrose (D50w Syringe) 50 ml Q15M PRN IV Till BS 80 mg/dL or above x2; Start 12/18/16 at 14:00 IV Flush 10 ml 10 ml PRN PRN IV IV PROTOCOL; Start 12/18/16 at 17:00 Norepinephrine/ Dextrose (Levophed/D5W) 250 ml @ 0.46 mls/hr TITRATE IV ; Start 12/19/16 at 09:30 Amlodipine Besylate 5 mg 5 mg DAILY PO Last administered on 01/04/17 08:45; Admin Dose 5 MG; Start 12/21/16 at 09:00 Midazolam HCl 50 ml @ 1 mls/hr TITRATE IV Last administered on 01/04/17 03:02 ; Admin Dose 10 MLS/HR; Start 12/20/16 at 14:00 Propofol (Diprivan) 100 ml @ 3.255 mls/ hr Q12H IV Last administered on 05:21; Admin Dose 13.02 MLS/HR; Start 12/20/16 at 20:30 Hydralazine HCl (Apresoline) 10 mg Q4H PRN IV sbp > 160 Last administered on 22:35; Admin Dose 10 MG; Start 12/22/16 at 06:30 Lorazepam (Ativan) 1 mg Q1H PRN IV agitation Last administered on 12/29/16 16: 35; Admin Dose 1 MG; Start 12/25/16 at 03:30 Carvedilol 6.25 mg 6.25 mg BID PO Last administered on 01/04/17 08:44; Admin Dose 6.25 MG; Start 12/25/16 at 21:00 Meropenem 100 ml @ 200 mls/hr Q12 IVPB Last administered on 01/04/17 09:18; Admin Dose 200 MLS/HR; Start 12/28/16 at 13:00 Caspofungin/ Sodium Chloride (Cancidas/NS) 250 ml @ 250 mls/hr Q24H IVPB Last administered on 01/04/17 12:35; Admin Dose 250 MLS/HR; Start 12/29/16 at 12:00 Insulin Aspart (Novolog Insulin Pen) NOVOLOG *MODERATE* ALGORITHM Q4 SC Last administered on 01/02/17 12:32; Admin Dose 2 UNIT; Start 12/29/16 at 09:30 Insulin Glargine (Lantus) 52 unit DAILY@20 SC Last administered on 01/03/17 20 :35; Admin Dose 52 UNIT; Start 12/31/16 at 20:00 Methylprednisolone Sodium Succinate (Solu-Medrol) 40 mg Q12 IV Last administered on 01/04/17 08:46; Admin Dose 40 MG; Start 01/01/17 at 21:00 Hydralazine HCl 100 mg 100 mg Q8 PO Last administered on 01/03/17 22:25; Admin Dose 100 MG; Start 01/01/17 at 14:00 Vancomycin HCl/ Sodium Chloride (Vancocin/NS) 250 ml @ 83.333 mls/ hr Q24H IVPB Last administered on 01/03/17 17:45; Admin Dose 83.333 MLS/HR; Start 01/01 at 17:00 Spironolactone (Aldactone) 25 mg DAILY PO Last administered on 01/04/17 08:46 ; Admin Dose 25 MG; Start 01/03/17 at 09:00 Miscellaneous Information VANCOMYCIN TROUGH AT 1600 ONCE ONCE XX ; Start 01/04/17 at 16:00; Stop 01/04/17 at 16:01 Dextrose/Sodium Chloride (D5-1/2ns) 1,000 ml @ 75 mls/hr [id number] IV Last administered on 01/04/17 09:30; Admin Dose 75 MLS/HR; Start 01/04/17 at 09:30 VI ADAMES January 04, 2017 12:57
--- NOTE | 2017-01-04 13:08 | PN ---
DATE: 01/04/2017 SUBJECTIVE: The patient was extubated. He is awake, looks comfortable, saturating 88% on nasal can nula. No fevers. LABORATORY DATA: WBC 9.8, platelets 173, neutrophils 88.3. BUN 48, creatinine 1.25. INDWELLINGS: NG tube, PICC, Ritchie. ANTIMICROBIALS: 1. Vancomycin. 2. Cancidas. 3. Meropenem. PHYSICAL EXAMINATION: GENERAL: This is an obese, well-developed man who is awake, in no distress. HEENT: Head atraumatic, normocephalic. Sclerae anicteric. Buccal mucosa dry. NECK: Supple, trachea midline. CHEST: Rise symmetrical. Breath sounds clear, diminished at bases. HEART: S1, S2. ABDOMEN: Soft, bowel sounds present. EXTREMITIES: Without cyanosis. ASSESSMENT: 1. Acute respiratory failure, extubated. 2. Pneumonia, resolving. 3. Obesity. 4. Diabetes. 5. Acute kidney injury. 6. Status post urinary tract infection. PLAN: The patient remains stable, completing treatment for pneumonia. Continue antibiotics, anti-a spiration measures. Follow recommendations of consultants. Dictated By: YOLETTE RODRIGUEZ [employer] TECH for DANUTA ROSE/SUNDEEP Conf#: [id number] DID#: [id number]
--- NOTE | 2017-01-04 13:36 | CONS ---
Date/Time of Note Date/Time of Note DATE: 01/04/17 TIME: 13:34 Consult Date/Type/Reason Admit Date/Time Dec 15, 2016 at 11:20 Type of Consultation: Rheum Ordering Provider: LEXII REED Subjective Alert but sedated on CPAP Objective Vital Signs Date Time Temp Pulse Resp B/P Pulse Ox O2 Delivery O2 Flow Rate FiO2 01/04/17 12:00 82 01/04/17 11:10 90 6.0 01/04/17 09:10 23 50 01/04/17 06:30 115/62 01/04/17 06:00 Mechanical Ventilator 01/04/17 04:00 97.8 Intake and Output 01/03/17 01/03/17 01/04/17 15:00 23:00 07:00 Intake Total 898.5 ml 1136.69 ml 394.73 ml Output Total 1525 ml 795 ml 610 ml Balance -626.5 ml 341.69 ml -215.27 ml Exam Alert. Mildly sedated. Seems to understand. Chest scattered crackles. Heart RRR Abd. soft. No tenderness. Ext No synovitis. Results/Medications Result Diagram: 01/04/17 0425 01/04/17 0425 Results 24 hrs Laboratory Tests Test 01/03/17 16:04 01/03/17 17:48 01/03/17 19:55 01/03/17 21:07 Blood Gas Specimen Source Blood arterial Arterial Blood Date Drawn 01/03/2017 3:50:22 PM Arterial Blood pH (Temp corrected) 7.468 H Arterial Blood pCO2 (Temp correct) 44.2 Arterial Blood pO2 (Temp corrected) 64.3 L Arterial Blood HCO3 31.3 H Arterial Blood Base Excess 6.8 H Arterial Blood Oxygen Saturation 92.1 L Leobardo Test ACCEPTAB Arterial Blood Gas Puncture Site Right Radial Arterial Blood Carboxyhemoglobin 0.3 Arterial Blood Methemoglobin 0.3 Blood Gas A-a O2 Differential 242.5 H Oxyhemoglobin Percent 91.5 L Total Hemoglobin 11.4 L Blood Gas Temperature 37.0 Blood Gas Actual Respiration Rate 25 Blood Gas Modality VENT - PSV FiO2 50.0 Blood Gas Tidal Volume 465.0 Blood Gas Low PEEP Setting 5.0 Blood Gas Pressure Support 10 Blood Gas Notified Whom JAS VANG Blood Gas Notified Time 01/03/2017 4:11:46 PM Bedside Glucose 101 104 98 Test 01/04/17 01:18 01/04/17 04:25 01/04/17 05:06 01/04/17 08:58 Bedside Glucose 103 82 63 L White Blood Count 9.8 Red Blood Count 3.28 L Hemoglobin 9.1 L Hematocrit 28.2 L Mean Corpuscular Volume 86.0 Mean Corpuscular Hemoglobin 27.7 L Mean Corpuscular Hemoglobin Concent 32.3 Red Cell Distribution Width 12.8 Platelet Count 173 Mean Platelet Volume 12.0 H Neutrophils % 88.3 H Lymphocytes % 6.8 L Monocytes % 3.4 Eosinophils % 0.8 Basophils % 0.1 Nucleated Red Blood Cells % 0.0 Neutrophils # 8.7 H Lymphocytes # 0.7 L Monocytes # 0.3 Eosinophils # 0.1 Basophils # 0.0 Nucleated Red Blood Cells # 0.0 Erythrocyte Sedimentation Rate 50 H Sodium Level 143 Potassium Level 3.1 L Chloride Level 106 Carbon Dioxide Level 32 H Anion Gap 8 Blood Urea Nitrogen 48 H Creatinine 1.25 H Glucose Level 83 Calcium Level 7.4 L Phosphorus Level 5.4 H Magnesium Level 2.3 C-Reactive Protein 1.0 H Test 01/04/17 09:20 01/04/17 09:29 01/04/17 09:52 01/04/17 12:31 Blood Gas Specimen Source Blood arterial Arterial Blood Date Drawn 01/04/2017 9:30:56 AM Arterial Blood pH (Temp corrected) 7.503 H Arterial Blood pCO2 (Temp correct) 41.3 Arterial Blood pO2 (Temp corrected) 67.2 L Arterial Blood HCO3 31.7 H Arterial Blood Base Excess 7.9 H Arterial Blood Oxygen Saturation 93.0 L Leobardo Test ACCEPTAB Arterial Blood Gas Puncture Site Right Radial Arterial Blood Carboxyhemoglobin 0.2 Arterial Blood Methemoglobin 0.4 Blood Gas A-a O2 Differential 242.8 H Oxyhemoglobin Percent 92.4 L Total Hemoglobin 10.5 L Blood Gas Temperature 37.0 Blood Gas Actual Respiration Rate 20 Blood Gas Modality VENT - CPAP FiO2 50.0 Blood Gas Low PEEP Setting 5.0 Blood Gas Pressure Support 10 Blood Gas Notified Whom JLD Blood Gas Notified Time 01/04/2017 9:44:37 AM Bedside Glucose 95 89 82 Medications Current Medications Ondansetron HCl (Zofran Inj) 4 mg Q6H PRN IV NAUSEA AND/OR VOMITING; Start at 13:00 Acetaminophen (Tylenol Tab) 650 mg Q6H PRN PO PAIN LEVEL 1-3 OR FEVER Last administered on 12/29/16 06:02; Admin Dose 650 MG; Start 12/15/16 at 13:00 Acetaminophen/ Hydrocodone Bitart ([place] (5/325)) 1 tab Q6H PRN PO PAIN LEVEL 4 -6 Last administered on 12/15/16 22:08; Admin Dose 1 TAB; Start 12/15/16 at 13: 00 Morphine Sulfate (morphine) 2 mg Q4H PRN IV PAIN LEVEL 7-10 Last administered on 01/04/17 01:26; Admin Dose 2 MG; Start 12/15/16 at 13:00 Magnesium Hydroxide (Milk Of Mag) 30 ml DAILY PRN PO CONSTIPATION Last administered on 01/02/17 02:07; Admin Dose 30 ML; Start 12/15/16 at 13:00 Bisacodyl (Dulcolax) 5 mg DAILY PRN PO CONSTIPATION Last administered on 17:44; Admin Dose 5 MG; Start 12/15/16 at 13:00 Famotidine (Pepcid) 20 mg Q12 PO Last administered on 01/04/17 08:45; Admin Dose 20 MG; Start 12/15/16 at 21:00 Hydralazine HCl (Apresoline) 10 mg Q6H PRN IV SBP>160 Last administered on 04:53; Admin Dose 10 MG; Start 12/15/16 at 13:00 Aspirin (Aspirin) 325 mg DAILY PO Last administered on 01/04/17 08:45; Admin Dose 325 MG; Start 12/16/16 at 09:00 Atorvastatin Calcium (Lipitor) 80 mg QHS PO Last administered on 01/03/17 21: 05; Admin Dose 80 MG; Start 12/15/16 at 21:00 Heparin Sodium (Porcine) (Heparin (5000 Units/0.5 ml)) 5,000 unit BID SC Last administered on 01/04/17 09:07; Admin Dose 5,000 UNIT; Start 12/15/16 at 21:00 Miscellaneous Information 1 ea NOTE XX ; Start 12/15/16 at 14:00 Glucose (Glutose) 15 gm Q15M PRN PO DECREASED GLUCOSE; Start 12/15/16 at 14:00 Glucose (Glutose) 22.5 gm Q15M PRN PO DECREASED GLUCOSE; Start 12/15/16 at 14: 00 Glucagon (Glucagen) 1 mg Q15M PRN IM DECREASED GLUCOSE; Start 12/15/16 at 14:00 Glucose (Glutose) 15 gm Q15M PRN BUCCAL DECREASED GLUCOSE; Start 12/15/16 at 14 :00 Cholecalciferol 1000 unit 1,000 unit DAILY PO Last administered on 01/04/17 08 :45; Admin Dose 1,000 UNIT; Start 12/16/16 at 09:00 Fentanyl (Sublimaze) 100 ml @ 2.5 mls/hr TITRATE IV Last administered on 01:42; Admin Dose 10 MLS/HR; Start 12/18/16 at 03:30 Dextrose (D50w Syringe) 25 ml Q15M PRN IV Till BS 80 mg/dL or above x2 Last administered on 01/04/17 09:08; Admin Dose 25 ML; Start 12/18/16 at 14:00 Dextrose (D50w Syringe) 50 ml Q15M PRN IV Till BS 80 mg/dL or above x2; Start 12/18/16 at 14:00 IV Flush 10 ml 10 ml PRN PRN IV IV PROTOCOL; Start 12/18/16 at 17:00 Norepinephrine/ Dextrose (Levophed/D5W) 250 ml @ 0.46 mls/hr TITRATE IV ; Start 12/19/16 at 09:30 Amlodipine Besylate 5 mg 5 mg DAILY PO Last administered on 01/04/17 08:45; Admin Dose 5 MG; Start 12/21/16 at 09:00 Midazolam HCl 50 ml @ 1 mls/hr TITRATE IV Last administered on 01/04/17 03:02 ; Admin Dose 10 MLS/HR; Start 12/20/16 at 14:00 Propofol (Diprivan) 100 ml @ 3.255 mls/ hr Q12H IV Last administered on 05:21; Admin Dose 13.02 MLS/HR; Start 12/20/16 at 20:30 Hydralazine HCl (Apresoline) 10 mg Q4H PRN IV sbp > 160 Last administered on 22:35; Admin Dose 10 MG; Start 12/22/16 at 06:30 Lorazepam (Ativan) 1 mg Q1H PRN IV agitation Last administered on 12/29/16 16: 35; Admin Dose 1 MG; Start 12/25/16 at 03:30 Carvedilol 6.25 mg 6.25 mg BID PO Last administered on 01/04/17 08:44; Admin Dose 6.25 MG; Start 12/25/16 at 21:00 Meropenem 100 ml @ 200 mls/hr Q12 IVPB Last administered on 01/04/17 09:18; Admin Dose 200 MLS/HR; Start 12/28/16 at 13:00 Caspofungin/ Sodium Chloride (Cancidas/NS) 250 ml @ 250 mls/hr Q24H IVPB Last administered on 01/04/17 12:35; Admin Dose 250 MLS/HR; Start 12/29/16 at 12:00 Insulin Aspart (Novolog Insulin Pen) NOVOLOG *MODERATE* ALGORITHM Q4 SC Last administered on 01/02/17 12:32; Admin Dose 2 UNIT; Start 12/29/16 at 09:30 Insulin Glargine (Lantus) 52 unit DAILY@20 SC Last administered on 01/03/17 20 :35; Admin Dose 52 UNIT; Start 12/31/16 at 20:00 Methylprednisolone Sodium Succinate (Solu-Medrol) 40 mg Q12 IV Last administered on 01/04/17 08:46; Admin Dose 40 MG; Start 01/01/17 at 21:00 Hydralazine HCl 100 mg 100 mg Q8 PO Last administered on 01/03/17 22:25; Admin Dose 100 MG; Start 01/01/17 at 14:00 Vancomycin HCl/ Sodium Chloride (Vancocin/NS) 250 ml @ 83.333 mls/ hr Q24H IVPB Last administered on 01/03/17 17:45; Admin Dose 83.333 MLS/HR; Start 01/01 at 17:00 Spironolactone (Aldactone) 25 mg DAILY PO Last administered on 01/04/17 08:46 ; Admin Dose 25 MG; Start 01/03/17 at 09:00 Miscellaneous Information VANCOMYCIN TROUGH AT 1600 ONCE ONCE XX ; Start 01/04/17 at 16:00; Stop 01/04/17 at 16:01 Dextrose/Sodium Chloride (D5-1/2ns) 1,000 ml @ 75 mls/hr [id number] IV Last administered on 01/04/17t 09:30; Admin Dose 75 MLS/HR; Start 01/04/17 at 09:30 Assessment/Plan Chief Complaint/Hosp Course 1. Positive DAISY of unclear significance so far. No definite evidence of vasculitis or Lupus, Anti DS DNA and SSA/SSB are negative. May continue on steroids empirically but taper . ESR improved to 50 and C-RP improved. 2. Respiratory failure. 3. Right Pleural effusion 4. Renal insufficiency Much improved. 5. Diabetes mellitus. Glucose increased on steroids. 6. Hypertension. Rec. 1. Steroid dose per pulmonary. Consider further tapering. Problems: ELIZABETH PUCKETT MD January 04, 2017 13:36
[2017-01-04 15:42] LABS: AADO2 Arterial 274.2 mmHg (7.0-24.0); Allen Test ACCEPTAB; Arterial Base Excess 7.5 mmol/L (-3.0-3); Arterial COHb 0.3 % (0.0-3.0); Arterial Fraction of Oxyhgb 89.9 % (93.0-99.0); Arterial HCO3 31.2 mmol/L (22.0-26.0); Arterial MetHb 0.4 % (0.0-1.5); Arterial Total Hemglobin 11.6 g/dl (12.0-18.0); MODE MASK - SIMPLE
[2017-01-04] MEDS: VANCOMYCIN 1.5 GM in SOD CHLORIDE 0.9% 250 ML IVPB SCH (17:08)
[2017-01-04] MEDS ORDERED: LEVALBUTEROL (NEB) 0.63 MG/3 ML AMP HHN PRN (17:30)
[2017-01-04] MEDS: DIGOXIN 500 MCG INJ IV SCH (19:28)
[2017-01-04] MEDS ORDERED: METOPROLOL 5 MG INJ IV PRN (19:30)
[2017-01-04 19:45] LABS: POTASSIUM 2.7 mmol/L (3.5-5.1)
[2017-01-04] MEDS ORDERED: POTASSIUM CHLORIDE (SR) 20 MEQ TAB PO STA ×2 (19:48→19:49)
[2017-01-04 19:53] LABS: CALCIUM 7.8 mg/dl (8.4-10.2); CREATININE 1.07 mg/dl (0.61-1.24)
[2017-01-04 19:54] LABS: ALBUMIN/GLOBULIN RATIO 0.83; BILIRUBIN,INDIRECT 0.3 mg/dl (0-1.1); BILIRUBIN,TOTAL 0.3 mg/dl (0.2-1.3); MAGNESIUM 2.1 mg/dl (1.7-2.5); TOTAL PROTEIN 4.4 g/dl (6.1-8.1)
[2017-01-04] MEDS ORDERED: POTASSIUM CHLORIDE 20 MEQ POWDER FOR ORAL SOLN PO STA (19:55)
[2017-01-04] MEDS: INSULIN GLARGINE [LANtus] 3 ML PEN SC SCH (20:00)
[2017-01-04] MEDS: ATORVASTATIN 80 MG TAB PO SCH (21:18)
[2017-01-04] MEDS ORDERED: INSULIN GLARGINE [LANtus] 3 ML PEN SC ONE (22:30)
[2017-01-05] VITALS (27 sets, daily range): BP systolic 127–178; BP diastolic 63–95; PULSE 68–99; RESP 0–35
[2017-01-05] MEDS ORDERED: POTASSIUM CHLORIDE 20 MEQ in SOD CHLORIDE 0.9% 100 ML IVPB ONE ×2
[2017-01-05] MEDS: POTASSIUM CHLORIDE 50 ML IVPB SCH ×6 (00:21→23:52)
[2017-01-05] MEDS: DIGOXIN 500 MCG INJ IV SCH (01:28)
[2017-01-05] MEDS: morphine 2 MG INJ IV PRN (04:26)
[2017-01-05 04:51] LABS: ADD SCAN DIFF NO
[2017-01-05 04:55] LABS: BASOPHILS % 0.1 % (0.0-2.0); EOSINOPHILS # 0.1 10^3/ul (0.0-0.5); EOSINOPHILS % 0.9 % (0.0-7.0); HEMOGLOBIN 10.1 g/dl (14.0-18.0); LYMPHOCYTES # 0.6 10^3/ul (0.8-2.9); LYMPHOCYTES % 6.3 % (15.0-51.0); MEAN CORPUSCULAR HEMOGLOBIN 27.7 pg (29.0-33.0); MEAN CORPUSCULAR HGB CONC 32.6 g/dl (32.0-37.0); MEAN CORPUSCULAR VOLUME 85.2 fl (82.0-101.0); MEAN PLATELET VOLUME 12.6 fl (7.4-10.4); MONOCYTE # 0.3 10^3/ul (0.3-0.9); MONOCYTES % 3.5 % (0.0-11.0); NEUTROPHIL # 8.6 10^3/ul (1.6-7.5); NEUTROPHILS % 88.4 % (39.0-77.0); PLATELET COUNT 204 10^3/UL (140-415); RED BLOOD COUNT 3.64 10^6/ul (4.70-6.10); RED CELL DISTRIBUTION WIDTH 12.9 % (11.5-14.5); WHITE BLOOD COUNT 9.7 10^3/ul (4.8-10.8)
[2017-01-05 05:18] LABS: POTASSIUM 3.3 mmol/L (3.5-5.1)
[2017-01-05 05:20] LABS: CREATININE 0.97 mg/dl (0.61-1.24)
[2017-01-05 05:21] LABS: CALCIUM 7.5 mg/dl (8.4-10.2); PHOSPHORUS 3.8 mg/dl (2.5-4.9)
[2017-01-05] MEDS: FUROSEMIDE 40 MG INJ IV SCH (05:30)
[2017-01-05] MEDS: INSULIN ASPART [NOVOLOG] 3 ML PEN SC SCH ×4 (05:39→18:07)
[2017-01-05] MEDS: hydrALAzine 20 MG INJ IV PRN ×2 (06:16→14:30)
[2017-01-05] MEDS: SEVELAMER CARBONATE 0.8 GM PKT PO SCH ×3 (07:35→17:35)
[2017-01-05] MEDS: PROPOFOL 100 ML IV SCH ×2 (08:30→20:30)
--- NOTE | 2017-01-05 08:56 | PN ---
DATE: 01/05/2017 SUBJECTIVE: The patient is stable, no acute events overnight. The patient was extubated yesterday, currently stable on nasal cannula. No other events noted. OBJECTIVE: VITAL SIGNS: Blood pressure 142/71, respirations 20, pulse 89, temperature 98.4. I's AND O'S: The patient had 2.8 L in, 3.8 L out. HEENT: Head is normocephalic. NECK: Supple. HEART: Regular rate. LUNGS: Show diminished breath sounds at the base. ABDOMEN: Soft, nontender to palpation without rebound or guarding. EXTREMITIES: Negative for clubbing, cyanosis. Trace edema. DERMATOLOGIC: No rashes. MUSCULOSKELETAL: No joint effusions. NEUROLOGIC: No change in exam. MEDICATIONS: The patient's medications have been reviewed. LABORATORY DATA: Shows sodium 144, potassium 4.3, BUN 35, creatinine 0.97. White count 9.7, hemogl obin 10.1, hematocrit 31.0, platelet count is 204. IMAGING STUDIES: Reviewed. ASSESSMENT AND PLAN: 1. Nonoliguric acute kidney injury with previous baseline creatinine 1.0 mg/dL. Etiology is second eric to acute tubular necrosis. Renal function has improved. Continue current treatment plan, suppo rtive care, renal dose all meds, avoid nephrotoxins. 2. Hyperkalemia. Continue to replete with potassium chloride. Continue Aldactone. Will add potass ium to IV fluids. 3. Volume overload secondary to acute kidney injury, diastolic heart failure. The patient clinical ly improving. Will de-escalate Lasix 20 mg IV b.i.d. 4. Metabolic alkalemia secondary to diuretic therapy hypokalemia, improving. Continue to monitor. 5. Hyponatremia. Continue hypertonic fluids. 6. Mineral bone disorder. Continue to monitor calcium and phosphorus levels. 7. Anemia. Continue to monitor hemoglobin and hematocrit levels. 8. Acute respiratory failure. Patient is status post extubation, currently stable on nasal cannula . Continue to monitor. Followup x-ray and ABGs. 9. Sepsis secondary to multifocal pneumonia. Continue current antibiotic regimen. 10. non-ST elevation myocardial infarction. Continue current treatment plan. 11. Diabetes. Continue Accu-Cheks and sliding scale. 12. Hypertension. Continue current blood pressure regimen. 13. Encephalopathy. No change. 14. Positive DAISY with unclear clinical significance. 15. History of polysubstance abuse. Please note I spent over 35 minutes of critical care time with this patient. Dictated By: LUIS JOSHI/SUNDEEP Conf#: [id number] DID#: [id number]
[2017-01-05] MEDS: ASPIRIN 325 MG TAB PO SCH (09:00)
[2017-01-05] MEDS: SPIRONOLACTONE 25 MG TAB PO SCH (09:00)
[2017-01-05] MEDS: CHOLECALCIFEROL 1,000 UNIT TAB PO SCH (09:00)
[2017-01-05] MEDS: FAMOTIDINE 20 MG TAB PO SCH ×2 (09:00→21:00)
[2017-01-05] MEDS: AMLODIPINE 5 MG TAB PO SCH (09:00)
[2017-01-05 09:16] LABS: AADO2 Arterial 309.5 mmHg (7.0-24.0); Allen Test ACCEPTAB; Arterial Base Excess 4.7 mmol/L (-3.0-3); Arterial COHb 0.3 % (0.0-3.0); Arterial Fraction of Oxyhgb 94.9 % (93.0-99.0); Arterial HCO3 27.6 mmol/L (22.0-26.0); Arterial MetHb 0.2 % (0.0-1.5); Arterial Total Hemglobin 12.4 g/dl (12.0-18.0); MODE HFNC
[2017-01-05] MEDS: D5W + KCL 20 MEQ 1,000 ML IV SCH ×2 (09:24→21:20)
[2017-01-05] MEDS: MEROPENEM 500 MG/100 ML (PMX) 100 ML IVPB SCH ×2 (09:30→21:19)
[2017-01-05] MEDS: METHYLPREDNISOLONE 125 MG INJ IV SCH ×2 (09:30→21:19)
[2017-01-05] MEDS: HEPARIN 5,000 UNIT/0.5 ML VIAL SC SCH ×2 (09:31→21:29)
--- NOTE | 2017-01-05 10:31 | RADRPT ---
PROCEDURE: XR Chest. CLINICAL INDICATION: CHF; pneumonia. TECHNIQUE: Single frontal view of the chest was obtained. COMPARISON: Chest x-ray 06/02/2016 07:47 a.m. FINDINGS: The soft tissues are normal. There are degenerative osteophytes in the thoracic spine. The heart i s enlarged. The cardiomediastinal silhouette and hilar structures are normal. The pulmonary vascula ture is increased. There is a left-sided aorta. There are perihilar interstitial infiltrates extend ing toward the periphery of the lungs. There is a suboptimal inspiratory effort. A PICC line ravindra ter enters the left arm with its tip in the superior vena cava. A nasogastric tube is positioned di stal to the GE junction. Costophrenic angles are normal. IMPRESSION: 1. Cardiomegaly with mild CHF and early interstitial pulmonary edema. 2. Satisfactory positioning of the central venous catheter and nasogastric tube. RPTAT:AAJJ Physician Sarwat Date Time Electronically viewed and signed by Physician Sarwat on 01/05/2017 10:31 ERNIE/
[2017-01-05] MEDS: CASPOFUNGIN 50 MG in SOD CHLORIDE 0.9% 250 ML IVPB SCH (11:19)
--- NOTE | 2017-01-05 11:32 | CONS ---
Date/Time of Note Date/Time of Note DATE: 01/05/17 TIME: 11:26 Assessment/Plan Assessment/Plan Chief Complaint/Hosp Course IMPRESSION: 1. Positive troponin, assess significance.-no sig uptrend/likely demand event in settng fevers/tachy/resp distress 2. Abnormal electrocardiogram with ST depressions with tachycardia and positive troponin, likely indicative of coronary artery disease.-improved ecg findings with improved HR 3. Hypertension, uncontrolled mildly still 4. Dyslipidemia. 5. Diabetes mellitus. 6. Fevers to 104 documented here in the hospital.-Currently defervesced 7. Renal failure.-acute on chronic/ ? secondary to vasculitic syndrome 8. Lower extremity edema, assess for congestive heart failure/CHF-diastolic acute on chronic 9. Nausea and vomiting. 10. Chest pain with cough initially on admit 11.Resp failure s/p extubation 12. Bradycardia-to 40's.Now improved and tolerating BB 14.CHF-diastolic acute on chronic Recc: -Tele -serial ecg's -Continue asa/statin -Continue abx's and f/u cx data -Continue bronchodilators and steroids. -Follow volume status closely and continue lasix diuresis and follow resp status closely s/p extubation -wean vent as tolerated -Continue hydralazine/norvasc/coreg when patient able to take PO's or NGT has been replaced and thus will start clonidine TTS until this time in attempt to maintain reasonable BP control -Ongoing eval for vasculitic syndrome per rheum Problems: Consultation Date/Type/Reason Admit Date/Time Dec 15, 2016 at 11:20 Initial Consult Date 12/15/2016 Type of Consultation: Cardiology Reason for Consultation positive troponin Referring Provider: LEXII REED Exam/Review of Systems Vital Signs Vitals Vital Signs Date Time Temp Pulse Resp B/P Pulse Ox O2 Delivery O2 Flow Rate FiO2 01/05/17 09:44 95 60 01/05/17 08:39 89 01/05/17 08:00 Nasal Cannula 01/05/17 08:00 98.4 15 158/72 01/04/17 15:30 8.0 Intake and Output 01/04/17 01/04/17 01/05/17 15:00 23:00 07:00 Intake Total 1050 ml 1075 ml 750 ml Output Total 2000 ml 850 ml 765 ml Balance -950 ml 225 ml -15 ml Exam Review of Systems: CONSTITUTIONAL: No fevers, chills. PULMONARY: No sob CARDIOVASCULAR: No chest pain/palpitations GASTROINTESTINAL: No nausea/vomiting. GENITOURINARY: No hematuria/dysuria. MUSCULOSKELETAL: No myagias/arthalgias. PSYCHIATRIC: The patient denies depression. NEUROLOGIC: lethargic/confused Constitutional: alert Psych: confusion, no complaints ENMT: mucosa pink and moist Neck: jvd (9 cm water), supple Respiratory: other (upper airway rhonchi) Cardiovascular: regular rate and rhythm Gastrointestinal: non-tender, soft Musculoskeletal: muscle tone (normal) Extremities: edema (trace/B) Neurological: other (No focal deficits) Results Result Diagram: 01/05/17 0345 01/05/17 0345 Results 24 hrs Laboratory Tests Test 01/04/17 12:31 01/04/17 15:29 01/04/17 16:00 01/04/17 17:15 Bedside Glucose 82 78 Blood Gas Specimen Source Blood arterial Arterial Blood Date Drawn 01/04/2017 3:33:57 PM Arterial Blood pH (Temp corrected) 7.505 H Arterial Blood pCO2 (Temp correct) 40.4 Arterial Blood pO2 (Temp corrected) 58.5 L Arterial Blood HCO3 31.2 H Arterial Blood Base Excess 7.5 H Arterial Blood Oxygen Saturation 90.5 L Leobardo Test ACCEPTAB Arterial Blood Gas Puncture Site Left Radial Arterial Blood Carboxyhemoglobin 0.3 Arterial Blood Methemoglobin 0.4 Blood Gas A-a O2 Differential 274.2 H Oxyhemoglobin Percent 89.9 L Total Hemoglobin 11.6 L Blood Gas Temperature 37.0 Blood Gas Modality MASK - SIMPLE FiO2 53.0 Blood Gas Notified Whom TM Blood Gas Notified Time 01/04/2017 3:42:00 PM Vancomycin Level Trough 14.9 Test 01/04/17 18:53 01/04/17 20:07 01/04/17 20:40 01/04/17 21:20 Sodium Level 142 Potassium Level 2.7 *L Chloride Level 104 Carbon Dioxide Level 32 H Anion Gap 9 Blood Urea Nitrogen 39 H Creatinine 1.07 Glucose Level 77 Calcium Level 7.8 L Magnesium Level 2.1 Total Bilirubin 0.3 Direct Bilirubin 0.00 Indirect Bilirubin 0.3 Aspartate Amino Transf (AST/SGOT) 124 H Alanine Aminotransferase (ALT/SGPT) 51 Alkaline Phosphatase 62 Total Protein 4.4 L Albumin 2.0 L Globulin 2.40 Albumin/Globulin Ratio 0.83 Bedside Glucose 69 L 117 91 Test 01/04/17 22:12 01/04/17 22:58 01/05/17 00:17 01/05/17 03:45 Bedside Glucose 118 117 Potassium Level 3.0 L 3.3 L White Blood Count 9.7 Red Blood Count 3.64 L Hemoglobin 10.1 L Hematocrit 31.0 L Mean Corpuscular Volume 85.2 Mean Corpuscular Hemoglobin 27.7 L Mean Corpuscular Hemoglobin Concent 32.6 Red Cell Distribution Width 12.9 Platelet Count 204 Mean Platelet Volume 12.6 H Neutrophils % 88.4 H Lymphocytes % 6.3 L Monocytes % 3.5 Eosinophils % 0.9 Basophils % 0.1 Nucleated Red Blood Cells % 0.0 Neutrophils # 8.6 H Lymphocytes # 0.6 L Monocytes # 0.3 Eosinophils # 0.1 Basophils # 0.0 Nucleated Red Blood Cells # 0.0 Sodium Level 144 Chloride Level 107 Carbon Dioxide Level 31 Anion Gap 9 Blood Urea Nitrogen 35 H Creatinine 0.97 Glucose Level 135 # Calcium Level 7.5 L Phosphorus Level 3.8 Magnesium Level 2.0 Test 01/05/17 05:31 01/05/17 07:00 Bedside Glucose 141 Blood Gas Specimen Source Blood arterial Arterial Blood Date Drawn 01/05/2017 7:48:33 AM Arterial Blood pH (Temp corrected) 7.513 H Arterial Blood pCO2 (Temp correct) 35.2 Arterial Blood pO2 (Temp corrected) 79.6 L Arterial Blood HCO3 27.6 H Arterial Blood Base Excess 4.7 H Arterial Blood Oxygen Saturation 95.4 Leobardo Test ACCEPTAB Arterial Blood Gas Puncture Site Right Radial Arterial Blood Carboxyhemoglobin 0.3 Arterial Blood Methemoglobin 0.2 Blood Gas A-a O2 Differential 309.5 H Oxyhemoglobin Percent 94.9 Total Hemoglobin 12.4 Blood Gas Temperature 37.0 Blood Gas Modality HFNC FiO2 60.0 Blood Gas Notified Whom JLD Blood Gas Notified Time 01/05/2017 9:15:50 AM Medications Medications Current Medications Ondansetron HCl (Zofran Inj) 4 mg Q6H PRN IV NAUSEA AND/OR VOMITING; Start at 13:00 Acetaminophen (Tylenol Tab) 650 mg Q6H PRN PO PAIN LEVEL 1-3 OR FEVER Last administered on 12/29/16 06:02; Admin Dose 650 MG; Start 12/15/16 at 13:00 Acetaminophen/ Hydrocodone Bitart ([place] (5/325)) 1 tab Q6H PRN PO PAIN LEVEL 4 -6 Last administered on 12/15/16 22:08; Admin Dose 1 TAB; Start 12/15/16 at 13: 00 Morphine Sulfate (morphine) 2 mg Q4H PRN IV PAIN LEVEL 7-10 Last administered on 01/05/17 04:26; Admin Dose 2 MG; Start 12/15/16 at 13:00 Magnesium Hydroxide (Milk Of Mag) 30 ml DAILY PRN PO CONSTIPATION Last administered on 01/02/17 02:07; Admin Dose 30 ML; Start 12/15/16 at 13:00 Bisacodyl (Dulcolax) 5 mg DAILY PRN PO CONSTIPATION Last administered on 17:44; Admin Dose 5 MG; Start 12/15/16 at 13:00 Famotidine (Pepcid) 20 mg Q12 PO Last administered on 01/04/17 21:17; Admin Dose 20 MG; Start 12/15/16 at 21:00 Hydralazine HCl (Apresoline) 10 mg Q6H PRN IV SBP>160 Last administered on 01/05 06:16; Admin Dose 10 MG; Start 12/15/16 at 13:00 Aspirin (Aspirin) 325 mg DAILY PO Last administered on 01/04/17 08:45; Admin Dose 325 MG; Start 12/16/16 at 09:00 Atorvastatin Calcium (Lipitor) 80 mg QHS PO Last administered on 01/04/17 21: 18; Admin Dose 80 MG; Start 12/15/16 at 21:00 Heparin Sodium (Porcine) (Heparin (5000 Units/0.5 ml)) 5,000 unit BID SC Last administered on 01/05/17 09:31; Admin Dose 5,000 UNIT; Start 12/15/16 at 21:00 Miscellaneous Information 1 ea NOTE XX ; Start 12/15/16 at 14:00 Glucose (Glutose) 15 gm Q15M PRN PO DECREASED GLUCOSE; Start 12/15/16 at 14:00 Glucose (Glutose) 22.5 gm Q15M PRN PO DECREASED GLUCOSE; Start 12/15/16 at 14: 00 Glucagon (Glucagen) 1 mg Q15M PRN IM DECREASED GLUCOSE; Start 12/15/16 at 14:00 Glucose (Glutose) 15 gm Q15M PRN BUCCAL DECREASED GLUCOSE; Start 12/15/16 at 14 :00 Cholecalciferol 1000 unit 1,000 unit DAILY PO Last administered on 01/04/17 08 :45; Admin Dose 1,000 UNIT; Start 12/16/16 at 09:00 Fentanyl (Sublimaze) 100 ml @ 2.5 mls/hr TITRATE IV Last administered on 01:42; Admin Dose 10 MLS/HR; Start 12/18/16 at 03:30 Dextrose (D50w Syringe) 25 ml Q15M PRN IV Till BS 80 mg/dL or above x2 Last administered on 01/04/17 20:11; Admin Dose 25 ML; Start 12/18/16 at 14:00 Dextrose (D50w Syringe) 50 ml Q15M PRN IV Till BS 80 mg/dL or above x2; Start 12/18/16 at 14:00 IV Flush 10 ml 10 ml PRN PRN IV IV PROTOCOL; Start 12/18/16 at 17:00 Norepinephrine/ Dextrose (Levophed/D5W) 250 ml @ 0.46 mls/hr TITRATE IV ; Start 12/19/16 at 09:30 Amlodipine Besylate 5 mg 5 mg DAILY PO Last administered on 01/04/17 08:45; Admin Dose 5 MG; Start 12/21/16 at 09:00 Midazolam HCl 50 ml @ 1 mls/hr TITRATE IV Last administered on 01/04/17 03:02 ; Admin Dose 10 MLS/HR; Start 12/20/16 at 14:00 Propofol (Diprivan) 100 ml @ 3.255 mls/ hr Q12H IV Last administered on 05:21; Admin Dose 13.02 MLS/HR; Start 12/20/16 at 20:30 Hydralazine HCl (Apresoline) 10 mg Q4H PRN IV sbp > 160 Last administered on 22:35; Admin Dose 10 MG; Start 12/22/16 at 06:30 Lorazepam 1 mg 1 mg Q1H PRN IV agitation Last administered on 12/29/16 16:35; Admin Dose 1 MG; Start 12/25/16 at 03:30 Meropenem 100 ml @ 200 mls/hr Q12 IVPB Last administered on 01/05/17 09:30; Admin Dose 200 MLS/HR; Start 12/28/16 at 13:00 Caspofungin/ Sodium Chloride (Cancidas/NS) 250 ml @ 250 mls/hr Q24H IVPB Last administered on 01/05/17 11:19; Admin Dose 250 MLS/HR; Start 12/29/16 at 12:00 Insulin Glargine (Lantus) 52 unit DAILY@20 SC Last administered on 01/03/17 20 :35; Admin Dose 52 UNIT; Start 12/31/16 at 20:00 Methylprednisolone Sodium Succinate (Solu-Medrol) 40 mg Q12 IV Last administered on 01/05/17 09:30; Admin Dose 40 MG; Start 01/01/17 at 21:00 Hydralazine HCl 100 mg 100 mg Q8 PO Last administered on 01/05/17 05:30; Admin Dose 100 MG; Start 01/01/17 at 14:00 Vancomycin HCl/ Sodium Chloride (Vancocin/NS) 250 ml @ 83.333 mls/ hr Q24H IVPB Last administered on 01/04/17 17:08; Admin Dose 83.333 MLS/HR; Start 01/01 at 17:00 Spironolactone (Aldactone) 25 mg DAILY PO Last administered on 01/04/17 08:46 ; Admin Dose 25 MG; Start 01/03/17 at 09:00 Insulin Aspart (Novolog Insulin Pen) NOVOLOG *MILD* ALGORI... Q6 SC Last administered on 01/05/17 11:20; Admin Dose 1 UNIT; Start 01/05/17 at 00:00 Carvedilol (Coreg) 12.5 mg BID PO Last administered on 01/04/17 21:18; Admin Dose 12.5 MG; Start 01/04/17 at 21:00 Metoprolol Tartrate 5 mg 5 mg Q4H PRN IV HR>110 Last administered on 01/04/17 21:56; Admin Dose 5 MG; Start 01/04/17 at 19:30 Potassium Chloride/Dextrose (D5W + KCl 20 Meq) 1,000 ml @ 75 mls/hr [id number] IV Last administered on 01/05/17t 09:24; Admin Dose 75 MLS/HR; Start 01/05/17 at 08:00 VI ADAMES January 05, 2017 11:32
--- NOTE | 2017-01-05 12:23 | PN ---
Date/Time of Note Date/Time of Note DATE: 01/05/17 TIME: 12:20 Assessment/Plan VTE Prophylaxis VTE Prophylaxis Intervention: heparin Lines/Catheters IV [facility] PICC Line Central line still needed: Yes Urinary Cath still in place: Yes Reason Cath still needed: urinary retention Assessment/Plan Chief Complaint/Hosp Course A/P: 41 M with: 1. Sepsis secondary to underlying community-acquired pneumonia with septic shock. Currently off pressors. On ABX as per ID. Mycoplasma serology abnormal. 2. Acute hypoxic respiratory failure. Most probably secondary to underlying pneumonia versus others. Patient got intubated on 12/18/2016, extubated on . Continue inhaled bronchodilators. Pulmonology following the patient. 3. Elevated troponins. Most probably a type 2 event from underlying sepsis and underlying acute kidney injury. Cardiology following. 4. Acute kidney injury. The patient had a normal creatinine of 1.00 on 2015. The patient's current acute kidney injury could be most probably secondary to dehydration from persistent vomiting - improving now. The patient' s nephrotoxic drugs will be held at this time. Being followed by nephrology. 5. Type 2 diabetes mellitus. Uncontrolled. A1C is high (send out). The patient will be maintained on sliding scale insulin along with basal insulin. 6. Dyslipidemia. Continue statins. 7. Essential hypertension. Continue antihypertensives. 8. Hypocalcemia. Probably secondary to underlying hypoalbuminemia. 9. Microcytic, hypochromic anemia. Etiology unclear. Iron panel showing iron deficiency. Continue iron supplements. 10. Vitamin D deficiency. Continue supplements. 11. Fluids, electrolytes, and nutrition. Tube feedings. 12. DVT prophylaxis. Subcutaneous heparin. 13. Gastrointestinal prophylaxis. Histamine 2 receptor blockers. 14. Plan. Continue antibiotics. Continue ventilator support. Ventilator weaning as per Pulmonary. Adjust insulin to obtain optimal blood sugar control. 15. Positive DAISY with unclear clinical significance. Continue to monitor ,f/u rheum rec's. Critical care time: 40 minutes. Problems: Subjective 24 Hr Interval Summary Free Text/Dictation Pt extubated yesterday, apparently pulled NG tube out last night. Still NPO per ST eval rec's. Exam/Review of Systems Vital Signs Vitals Vital Signs Date Time Temp Pulse Resp B/P Pulse Ox O2 Delivery O2 Flow Rate FiO2 01/05/17 12:00 98.8 90 26 159/67 94 High Flow 01/05/17 09:44 60 01/04/17 15:30 8.0 Intake and Output 01/04/17 01/04/17 01/05/17 15:00 23:00 07:00 Intake Total 1050 ml 1075 ml 750 ml Output Total 2000 ml 850 ml 765 ml Balance -950 ml 225 ml -15 ml Exam GENERAL: This is a morbidly obese male lying in bed, lethargic HEENT: Head normocephalic and atraumatic. Eyes: Anicteric sclerae. Conjunctivae clear. ENT: Nasal septum is midline. Oral mucosa is dry. NECK: Short with increased neck circumference. RESPIRATORY: Bilaterally diminished breath sounds. On mechanical ventilator. CARDIAC: Regular rate and rhythm. S1, S2 heard. ABDOMEN: Soft, nontender and nondistended. Bowel sounds positive in all 4 quadrants. EXTREMITIES: No cyanosis, no clubbing. B/L LE edema. Pedal pulses palpable. Status post left great toe amputation. NEUROLOGIC: The patient is sedated. Results Result Diagram: 01/05/17 0345 01/05/17 0345 Results 24 hrs Laboratory Tests Test 01/04/17 12:31 01/04/17 15:29 01/04/17 16:00 01/04/17 17:15 Bedside Glucose 82 78 Blood Gas Specimen Source Blood arterial Arterial Blood Date Drawn 01/04/2017 3:33:57 PM Arterial Blood pH (Temp corrected) 7.505 H Arterial Blood pCO2 (Temp correct) 40.4 Arterial Blood pO2 (Temp corrected) 58.5 L Arterial Blood HCO3 31.2 H Arterial Blood Base Excess 7.5 H Arterial Blood Oxygen Saturation 90.5 L Leobardo Test ACCEPTAB Arterial Blood Gas Puncture Site Left Radial Arterial Blood Carboxyhemoglobin 0.3 Arterial Blood Methemoglobin 0.4 Blood Gas A-a O2 Differential 274.2 H Oxyhemoglobin Percent 89.9 L Total Hemoglobin 11.6 L Blood Gas Temperature 37.0 Blood Gas Modality MASK - SIMPLE FiO2 53.0 Blood Gas Notified Whom TM Blood Gas Notified Time 01/04/2017 3:42:00 PM Vancomycin Level Trough 14.9 Test 01/04/17 18:53 01/04/17 20:07 01/04/17 20:40 01/04/17 21:20 Sodium Level 142 Potassium Level 2.7 *L Chloride Level 104 Carbon Dioxide Level 32 H Anion Gap 9 Blood Urea Nitrogen 39 H Creatinine 1.07 Glucose Level 77 Calcium Level 7.8 L Magnesium Level 2.1 Total Bilirubin 0.3 Direct Bilirubin 0.00 Indirect Bilirubin 0.3 Aspartate Amino Transf (AST/SGOT) 124 H Alanine Aminotransferase (ALT/SGPT) 51 Alkaline Phosphatase 62 Total Protein 4.4 L Albumin 2.0 L Globulin 2.40 Albumin/Globulin Ratio 0.83 Bedside Glucose 69 L 117 91 Test 01/04/17 22:12 01/04/17 22:58 01/05/17 00:17 01/05/17 03:45 Bedside Glucose 118 117 Potassium Level 3.0 L 3.3 L White Blood Count 9.7 Red Blood Count 3.64 L Hemoglobin 10.1 L Hematocrit 31.0 L Mean Corpuscular Volume 85.2 Mean Corpuscular Hemoglobin 27.7 L Mean Corpuscular Hemoglobin Concent 32.6 Red Cell Distribution Width 12.9 Platelet Count 204 Mean Platelet Volume 12.6 H Neutrophils % 88.4 H Lymphocytes % 6.3 L Monocytes % 3.5 Eosinophils % 0.9 Basophils % 0.1 Nucleated Red Blood Cells % 0.0 Neutrophils # 8.6 H Lymphocytes # 0.6 L Monocytes # 0.3 Eosinophils # 0.1 Basophils # 0.0 Nucleated Red Blood Cells # 0.0 Sodium Level 144 Chloride Level 107 Carbon Dioxide Level 31 Anion Gap 9 Blood Urea Nitrogen 35 H Creatinine 0.97 Glucose Level 135 # Calcium Level 7.5 L Phosphorus Level 3.8 Magnesium Level 2.0 Test 01/05/17 05:31 01/05/17 07:00 01/05/17 11:18 Bedside Glucose 141 147 Blood Gas Specimen Source Blood arterial Arterial Blood Date Drawn 01/05/2017 7:48:33 AM Arterial Blood pH (Temp corrected) 7.513 H Arterial Blood pCO2 (Temp correct) 35.2 Arterial Blood pO2 (Temp corrected) 79.6 L Arterial Blood HCO3 27.6 H Arterial Blood Base Excess 4.7 H Arterial Blood Oxygen Saturation 95.4 Leobardo Test ACCEPTAB Arterial Blood Gas Puncture Site Right Radial Arterial Blood Carboxyhemoglobin 0.3 Arterial Blood Methemoglobin 0.2 Blood Gas A-a O2 Differential 309.5 H Oxyhemoglobin Percent 94.9 Total Hemoglobin 12.4 Blood Gas Temperature 37.0 Blood Gas Modality HFNC FiO2 60.0 Blood Gas Notified Whom JLD Blood Gas Notified Time 01/05/2017 9:15:50 AM Medications Medications Current Medications Ondansetron HCl (Zofran Inj) 4 mg Q6H PRN IV NAUSEA AND/OR VOMITING; Start at 13:00 Acetaminophen (Tylenol Tab) 650 mg Q6H PRN PO PAIN LEVEL 1-3 OR FEVER Last administered on 12/29/16 06:02; Admin Dose 650 MG; Start 12/15/16 at 13:00 Acetaminophen/ Hydrocodone Bitart ([place] (5/325)) 1 tab Q6H PRN PO PAIN LEVEL 4 -6 Last administered on 12/15/16 22:08; Admin Dose 1 TAB; Start 12/15/16 at 13: 00 Morphine Sulfate (morphine) 2 mg Q4H PRN IV PAIN LEVEL 7-10 Last administered on 01/05/17 04:26; Admin Dose 2 MG; Start 12/15/16 at 13:00 Magnesium Hydroxide (Milk Of Mag) 30 ml DAILY PRN PO CONSTIPATION Last administered on 01/02/17 02:07; Admin Dose 30 ML; Start 12/15/16 at 13:00 Bisacodyl (Dulcolax) 5 mg DAILY PRN PO CONSTIPATION Last administered on 17:44; Admin Dose 5 MG; Start 12/15/16 at 13:00 Famotidine (Pepcid) 20 mg Q12 PO Last administered on 01/04/17 21:17; Admin Dose 20 MG; Start 12/15/16 at 21:00 Hydralazine HCl (Apresoline) 10 mg Q6H PRN IV SBP>160 Last administered on 01/05 06:16; Admin Dose 10 MG; Start 12/15/16 at 13:00 Aspirin (Aspirin) 325 mg DAILY PO Last administered on 01/04/17 08:45; Admin Dose 325 MG; Start 12/16/16 at 09:00 Atorvastatin Calcium (Lipitor) 80 mg QHS PO Last administered on 01/04/17 21: 18; Admin Dose 80 MG; Start 12/15/16 at 21:00 Heparin Sodium (Porcine) (Heparin (5000 Units/0.5 ml)) 5,000 unit BID SC Last administered on 01/05/17 09:31; Admin Dose 5,000 UNIT; Start 12/15/16 at 21:00 Miscellaneous Information 1 ea NOTE XX ; Start 12/15/16 at 14:00 Glucose (Glutose) 15 gm Q15M PRN PO DECREASED GLUCOSE; Start 12/15/16 at 14:00 Glucose (Glutose) 22.5 gm Q15M PRN PO DECREASED GLUCOSE; Start 12/15/16 at 14: 00 Glucagon (Glucagen) 1 mg Q15M PRN IM DECREASED GLUCOSE; Start 12/15/16 at 14:00 Glucose (Glutose) 15 gm Q15M PRN BUCCAL DECREASED GLUCOSE; Start 12/15/16 at 14 :00 Cholecalciferol 1000 unit 1,000 unit DAILY PO Last administered on 01/04/17 08 :45; Admin Dose 1,000 UNIT; Start 12/16/16 at 09:00 Fentanyl (Sublimaze) 100 ml @ 2.5 mls/hr TITRATE IV Last administered on 01:42; Admin Dose 10 MLS/HR; Start 12/18/16 at 03:30 Dextrose (D50w Syringe) 25 ml Q15M PRN IV Till BS 80 mg/dL or above x2 Last administered on 01/04/17 20:11; Admin Dose 25 ML; Start 12/18/16 at 14:00 Dextrose (D50w Syringe) 50 ml Q15M PRN IV Till BS 80 mg/dL or above x2; Start 12/18/16 at 14:00 IV Flush 10 ml 10 ml PRN PRN IV IV PROTOCOL; Start 12/18/16 at 17:00 Norepinephrine/ Dextrose (Levophed/D5W) 250 ml @ 0.46 mls/hr TITRATE IV ; Start 12/19/16 at 09:30 Amlodipine Besylate 5 mg 5 mg DAILY PO Last administered on 01/04/17 08:45; Admin Dose 5 MG; Start 12/21/16 at 09:00 Midazolam HCl 50 ml @ 1 mls/hr TITRATE IV Last administered on 01/04/17 03:02 ; Admin Dose 10 MLS/HR; Start 12/20/16 at 14:00 Propofol (Diprivan) 100 ml @ 3.255 mls/ hr Q12H IV Last administered on 05:21; Admin Dose 13.02 MLS/HR; Start 12/20/16 at 20:30 Hydralazine HCl (Apresoline) 10 mg Q4H PRN IV sbp > 160 Last administered on 22:35; Admin Dose 10 MG; Start 12/22/16 at 06:30 Lorazepam 1 mg 1 mg Q1H PRN IV agitation Last administered on 12/29/16 16:35; Admin Dose 1 MG; Start 12/25/16 at 03:30 Meropenem 100 ml @ 200 mls/hr Q12 IVPB Last administered on 01/05/17 09:30; Admin Dose 200 MLS/HR; Start 12/28/16 at 13:00 Caspofungin/ Sodium Chloride (Cancidas/NS) 250 ml @ 250 mls/hr Q24H IVPB Last administered on 01/05/17 11:19; Admin Dose 250 MLS/HR; Start 12/29/16 at 12:00 Insulin Glargine (Lantus) 52 unit DAILY@20 SC Last administered on 01/03/17 20 :35; Admin Dose 52 UNIT; Start 12/31/16 at 20:00 Methylprednisolone Sodium Succinate (Solu-Medrol) 40 mg Q12 IV Last administered on 01/05/17 09:30; Admin Dose 40 MG; Start 01/01/17 at 21:00 Hydralazine HCl 100 mg 100 mg Q8 PO Last administered on 01/05/17 05:30; Admin Dose 100 MG; Start 01/01/17 at 14:00 Vancomycin HCl/ Sodium Chloride (Vancocin/NS) 250 ml @ 83.333 mls/ hr Q24H IVPB Last administered on 01/04/17 17:08; Admin Dose 83.333 MLS/HR; Start 01/01 at 17:00 Spironolactone (Aldactone) 25 mg DAILY PO Last administered on 01/04/17 08:46 ; Admin Dose 25 MG; Start 01/03/17 at 09:00 Insulin Aspart (Novolog Insulin Pen) NOVOLOG *MILD* ALGORI... Q6 SC Last administered on 01/05/17 11:20; Admin Dose 1 UNIT; Start 01/05/17 at 00:00 Carvedilol (Coreg) 12.5 mg BID PO Last administered on 01/04/17 21:18; Admin Dose 12.5 MG; Start 01/04/17 at 21:00 Metoprolol Tartrate 5 mg 5 mg Q4H PRN IV HR>110 Last administered on 01/04/17 21:56; Admin Dose 5 MG; Start 01/04/17 at 19:30 Potassium Chloride/Dextrose (D5W + KCl 20 Meq) 1,000 ml @ 75 mls/hr [id number] IV Last administered on 01/05/17 09:24; Admin Dose 75 MLS/HR; Start 01/05/17 at 08:00 Clonidine HCl (Catapres-Tts 2 Patch) 1 patch Q7D TRANSDERM ; Start 01/05/17 at 12:00 CLARITA VERMA January 05, 2017 12:23
[2017-01-05] MEDS: CLONIDINE 0.2 MG/24 HR PATCH TRANSDERM SCH (12:55)
--- NOTE | 2017-01-05 13:59 | CONS ---
Date/Time of Note Date/Time of Note DATE: 01/05/17 TIME: 13:58 Consult Date/Type/Reason Admit Date/Time Dec 15, 2016 at 11:20 Type of Consultation: Pulmonary ICU Ordering Provider: LEXII REED Subjective Patient extubated yesterday remained stable on high flow O2 at 20 L/min to 60% FiO2 Failed swallow evaluation this morning Awake alert and oriented Objective Vital Signs Date Time Temp Pulse Resp B/P Pulse Ox O2 Delivery O2 Flow Rate FiO2 01/05/17 13:16 96 60 01/05/17 12:46 87 01/05/17 12:00 98.8 26 159/67 High Flow 01/04/17 15:30 8.0 Intake and Output 01/04/17 01/04/17 01/05/17 15:00 23:00 07:00 Intake Total 1050 ml 1075 ml 750 ml Output Total 2000 ml 850 ml 765 ml Balance -950 ml 225 ml -15 ml Exam PHYSICAL EXAMINATION GENERAL: Young gentleman intubated sedated on Vapotherm oxygen VITAL SIGNS: see below. HEENT: Pupils equal, round, and reactive to light. CARDIAC: S1, S2, no added sounds or murmurs CHEST: Diminished air entry bilaterally. ABDOMEN: Mildly distended. Bowel sounds present. EXTREMITIES: No cyanosis, clubbing edema +1 NEUROLOGIC: generalized weakness but follows simple commands Results/Medications Result Diagram: 01/05/17 0345 01/05/17 0345 Results 24 hrs Laboratory Tests Test 01/04/17 15:29 01/04/17 16:00 01/04/17 17:15 01/04/17 18:53 Blood Gas Specimen Source Blood arterial Arterial Blood Date Drawn 01/04/2017 3:33:57 PM Arterial Blood pH (Temp corrected) 7.505 H Arterial Blood pCO2 (Temp correct) 40.4 Arterial Blood pO2 (Temp corrected) 58.5 L Arterial Blood HCO3 31.2 H Arterial Blood Base Excess 7.5 H Arterial Blood Oxygen Saturation 90.5 L Leobardo Test ACCEPTAB Arterial Blood Gas Puncture Site Left Radial Arterial Blood Carboxyhemoglobin 0.3 Arterial Blood Methemoglobin 0.4 Blood Gas A-a O2 Differential 274.2 H Oxyhemoglobin Percent 89.9 L Total Hemoglobin 11.6 L Blood Gas Temperature 37.0 Blood Gas Modality MASK - SIMPLE FiO2 53.0 Blood Gas Notified Whom TM Blood Gas Notified Time 01/04/2017 3:42:00 PM Vancomycin Level Trough 14.9 Bedside Glucose 78 Sodium Level 142 Potassium Level 2.7 *L Chloride Level 104 Carbon Dioxide Level 32 H Anion Gap 9 Blood Urea Nitrogen 39 H Creatinine 1.07 Glucose Level 77 Calcium Level 7.8 L Magnesium Level 2.1 Total Bilirubin 0.3 Direct Bilirubin 0.00 Indirect Bilirubin 0.3 Aspartate Amino Transf (AST/SGOT) 124 H Alanine Aminotransferase (ALT/SGPT) 51 Alkaline Phosphatase 62 Total Protein 4.4 L Albumin 2.0 L Globulin 2.40 Albumin/Globulin Ratio 0.83 Test 01/04/17 20:07 01/04/17 20:40 01/04/17 21:20 01/04/17 22:12 Bedside Glucose 69 L 117 91 118 Test 01/04/17 22:58 01/05/17 00:17 01/05/17 03:45 01/05/17 05:31 Potassium Level 3.0 L 3.3 L Bedside Glucose 117 141 White Blood Count 9.7 Red Blood Count 3.64 L Hemoglobin 10.1 L Hematocrit 31.0 L Mean Corpuscular Volume 85.2 Mean Corpuscular Hemoglobin 27.7 L Mean Corpuscular Hemoglobin Concent 32.6 Red Cell Distribution Width 12.9 Platelet Count 204 Mean Platelet Volume 12.6 H Neutrophils % 88.4 H Lymphocytes % 6.3 L Monocytes % 3.5 Eosinophils % 0.9 Basophils % 0.1 Nucleated Red Blood Cells % 0.0 Neutrophils # 8.6 H Lymphocytes # 0.6 L Monocytes # 0.3 Eosinophils # 0.1 Basophils # 0.0 Nucleated Red Blood Cells # 0.0 Sodium Level 144 Chloride Level 107 Carbon Dioxide Level 31 Anion Gap 9 Blood Urea Nitrogen 35 H Creatinine 0.97 Glucose Level 135 # Calcium Level 7.5 L Phosphorus Level 3.8 Magnesium Level 2.0 Test 01/05/17 07:00 01/05/17 11:18 Blood Gas Specimen Source Blood arterial Arterial Blood Date Drawn 01/05/2017 7:48:33 AM Arterial Blood pH (Temp corrected) 7.513 H Arterial Blood pCO2 (Temp correct) 35.2 Arterial Blood pO2 (Temp corrected) 79.6 L Arterial Blood HCO3 27.6 H Arterial Blood Base Excess 4.7 H Arterial Blood Oxygen Saturation 95.4 Leobardo Test ACCEPTAB Arterial Blood Gas Puncture Site Right Radial Arterial Blood Carboxyhemoglobin 0.3 Arterial Blood Methemoglobin 0.2 Blood Gas A-a O2 Differential 309.5 H Oxyhemoglobin Percent 94.9 Total Hemoglobin 12.4 Blood Gas Temperature 37.0 Blood Gas Modality HFNC FiO2 60.0 Blood Gas Notified Whom JLD Blood Gas Notified Time 01/05/2017 9:15:50 AM Bedside Glucose 147 Medications Current Medications Ondansetron HCl (Zofran Inj) 4 mg Q6H PRN IV NAUSEA AND/OR VOMITING; Start at 13:00 Acetaminophen (Tylenol Tab) 650 mg Q6H PRN PO PAIN LEVEL 1-3 OR FEVER Last administered on 12/29/16 06:02; Admin Dose 650 MG; Start 12/15/16 at 13:00 Acetaminophen/ Hydrocodone Bitart ([place] (5/325)) 1 tab Q6H PRN PO PAIN LEVEL 4 -6 Last administered on 12/15/16 22:08; Admin Dose 1 TAB; Start 12/15/16 at 13: 00 Morphine Sulfate (morphine) 2 mg Q4H PRN IV PAIN LEVEL 7-10 Last administered on 01/05/17 04:26; Admin Dose 2 MG; Start 12/15/16 at 13:00 Magnesium Hydroxide (Milk Of Mag) 30 ml DAILY PRN PO CONSTIPATION Last administered on 01/02/17 02:07; Admin Dose 30 ML; Start 12/15/16 at 13:00 Bisacodyl (Dulcolax) 5 mg DAILY PRN PO CONSTIPATION Last administered on 17:44; Admin Dose 5 MG; Start 12/15/16 at 13:00 Famotidine (Pepcid) 20 mg Q12 PO Last administered on 01/04/17 21:17; Admin Dose 20 MG; Start 12/15/16 at 21:00 Hydralazine HCl (Apresoline) 10 mg Q6H PRN IV SBP>160 Last administered on 01/05 06:16; Admin Dose 10 MG; Start 12/15/16 at 13:00 Aspirin (Aspirin) 325 mg DAILY PO Last administered on 01/04/17 08:45; Admin Dose 325 MG; Start 12/16/16 at 09:00 Atorvastatin Calcium (Lipitor) 80 mg QHS PO Last administered on 01/04/17 21: 18; Admin Dose 80 MG; Start 12/15/16 at 21:00 Heparin Sodium (Porcine) (Heparin (5000 Units/0.5 ml)) 5,000 unit BID SC Last administered on 01/05/17 09:31; Admin Dose 5,000 UNIT; Start 12/15/16 at 21:00 Miscellaneous Information 1 ea NOTE XX ; Start 12/15/16 at 14:00 Glucose (Glutose) 15 gm Q15M PRN PO DECREASED GLUCOSE; Start 12/15/16 at 14:00 Glucose (Glutose) 22.5 gm Q15M PRN PO DECREASED GLUCOSE; Start 12/15/16 at 14: 00 Glucagon (Glucagen) 1 mg Q15M PRN IM DECREASED GLUCOSE; Start 12/15/16 at 14:00 Glucose (Glutose) 15 gm Q15M PRN BUCCAL DECREASED GLUCOSE; Start 12/15/16 at 14 :00 Cholecalciferol 1000 unit 1,000 unit DAILY PO Last administered on 01/04/17 08 :45; Admin Dose 1,000 UNIT; Start 12/16/16 at 09:00 Fentanyl (Sublimaze) 100 ml @ 2.5 mls/hr TITRATE IV Last administered on 01:42; Admin Dose 10 MLS/HR; Start 12/18/16 at 03:30 Dextrose (D50w Syringe) 25 ml Q15M PRN IV Till BS 80 mg/dL or above x2 Last administered on 01/04/17 20:11; Admin Dose 25 ML; Start 12/18/16 at 14:00 Dextrose (D50w Syringe) 50 ml Q15M PRN IV Till BS 80 mg/dL or above x2; Start 12/18/16 at 14:00 IV Flush 10 ml 10 ml PRN PRN IV IV PROTOCOL; Start 12/18/16 at 17:00 Norepinephrine/ Dextrose (Levophed/D5W) 250 ml @ 0.46 mls/hr TITRATE IV ; Start 12/19/16 at 09:30 Amlodipine Besylate 5 mg 5 mg DAILY PO Last administered on 01/04/17 08:45; Admin Dose 5 MG; Start 12/21/16 at 09:00 Midazolam HCl 50 ml @ 1 mls/hr TITRATE IV Last administered on 01/04/17 03:02 ; Admin Dose 10 MLS/HR; Start 12/20/16 at 14:00 Propofol (Diprivan) 100 ml @ 3.255 mls/ hr Q12H IV Last administered on 05:21; Admin Dose 13.02 MLS/HR; Start 12/20/16 at 20:30 Hydralazine HCl (Apresoline) 10 mg Q4H PRN IV sbp > 160 Last administered on 22:35; Admin Dose 10 MG; Start 12/22/16 at 06:30 Lorazepam 1 mg 1 mg Q1H PRN IV agitation Last administered on 12/29/16 16:35; Admin Dose 1 MG; Start 12/25/16 at 03:30 Meropenem 100 ml @ 200 mls/hr Q12 IVPB Last administered on 01/05/17 09:30; Admin Dose 200 MLS/HR; Start 12/28/16 at 13:00 Caspofungin/ Sodium Chloride (Cancidas/NS) 250 ml @ 250 mls/hr Q24H IVPB Last administered on 01/05/17 11:19; Admin Dose 250 MLS/HR; Start 12/29/16 at 12:00 Insulin Glargine (Lantus) 52 unit DAILY@20 SC Last administered on 01/03/17 20 :35; Admin Dose 52 UNIT; Start 12/31/16 at 20:00 Methylprednisolone Sodium Succinate (Solu-Medrol) 40 mg Q12 IV Last administered on 01/05/17 09:30; Admin Dose 40 MG; Start 01/01/17 at 21:00 Hydralazine HCl 100 mg 100 mg Q8 PO Last administered on 01/05/17 05:30; Admin Dose 100 MG; Start 01/01/17 at 14:00 Vancomycin HCl/ Sodium Chloride (Vancocin/NS) 250 ml @ 83.333 mls/ hr Q24H IVPB Last administered on 01/04/17 17:08; Admin Dose 83.333 MLS/HR; Start 01/01 at 17:00 Spironolactone (Aldactone) 25 mg DAILY PO Last administered on 01/04/17 08:46 ; Admin Dose 25 MG; Start 01/03/17 at 09:00 Insulin Aspart (Novolog Insulin Pen) NOVOLOG *MILD* ALGORI... Q6 SC Last administered on 01/05/17 11:20; Admin Dose 1 UNIT; Start 01/05/17 at 00:00 Carvedilol (Coreg) 12.5 mg BID PO Last administered on 01/04/17 21:18; Admin Dose 12.5 MG; Start 01/04/17 at 21:00 Metoprolol Tartrate 5 mg 5 mg Q4H PRN IV HR>110 Last administered on 01/04/17 21:56; Admin Dose 5 MG; Start 01/04/17 at 19:30 Potassium Chloride/Dextrose (D5W + KCl 20 Meq) 1,000 ml @ 75 mls/hr [id number] IV Last administered on 01/05/17 09:24; Admin Dose 75 MLS/HR; Start 01/05/17 at 08:00 Clonidine HCl (Catapres-Tts 2 Patch) 1 patch Q7D TRANSDERM Last administered on 01/05/17 12:55; Admin Dose 1 PATCH; Start 01/05/17 at 12:00 Assessment/Plan Chief Complaint/Hosp Course Assessment 1. Acute hypoxemic respiratory failure possible healthcare associated pneumonia with underlying pulmonary edema ultrasound demonstrated no pleural effusion 2. Workup for vasculitis will decrease steroids. Appreciate rheumatology recommendations. 3. Diabetes mellitus 4. Renal insufficiency possible ATN injury improved Plan 1. Continue high flow O2 2. Decrease FiO2 as tolerated 3. Continue low-dose steroids decreased slowly 4. Continue broad-spectrum antibiotics 5. Diuretics as tolerated Disposition Continue ICU care Repeat speech therapy evaluation in a.m. Incentive spirometry PT eval Problems: [facility] January 05, 2017 13:59
--- NOTE | 2017-01-05 14:10 | PN ---
DATE: 01/05/2017 INFECTIOUS DISEASE PROGRESS NOTE SUBJECTIVE: No events overnight. Patient is awake, looks comfortable. No fevers. WBC 9.7, neutrophils 88.4, BUN 35, creatinine 0.97. Chest x-ray this morning revealed cardiomegaly w ith mild CHF. INDWELLINGS: Ritchie, PICC line. ANTIMICROBIALS: 1. Vancomycin. 2. Cancidas. 3. Meropenem. PHYSICAL EXAMINATION: GENERAL: This is an obese, well-developed, middle-aged man, who is alert, in no distress. HEENT: Head atraumatic, normocephalic. Sclerae are anicteric. Buccal mucosa dry. NECK: Supple, trachea midline. CHEST: Chest rise is symmetrical. Breath sounds diminished to the bases. HEART: S1, S2. ABDOMEN: Soft, bowel tones present. EXTREMITIES: Without cyanosis. ASSESSMENT: 1. Resolving sepsis. 2. Status post acute respiratory failure. 3. Multilobular pneumonia, completing antibiotics. 4. Diabetes. 5. Acute kidney injury. 6. Status post urinary tract infection. PLAN: The patient remains stable. Continue the present care. Complete antibiotics for a couple mo re days. Anti-aspiration measures. Dictated By: YOLETTE RODRIGUEZ DRAFTER CIVIL (CAD) for DANUTA ROSE/SUNDEEP Conf#: [id number] DID#: [id number]
--- NOTE | 2017-01-05 16:32 | CONS ---
Date/Time of Note Date/Time of Note DATE: 01/05/17 TIME: 16:30 Consult Date/Type/Reason Admit Date/Time Dec 15, 2016 at 11:20 Type of Consultation: Rheum Ordering Provider: LEXII REED Subjective Alelrlt. disoriented. Extubated. Objective Vital Signs Date Time Temp Pulse Resp B/P Pulse Ox O2 Delivery O2 Flow Rate FiO2 01/05/17 16:15 96 01/05/17 15:00 17 134/72 97 High Flow 01/05/17 13:16 60 01/05/17 12:00 98.8 01/04/17 15:30 8.0 Intake and Output 01/04/17 01/04/17 01/05/17 15:00 23:00 07:00 Intake Total 1050 ml 1075 ml 750 ml Output Total 2000 ml 850 ml 765 ml Balance -950 ml 225 ml -15 ml Exam Alert. Mildly confused. Seems to understand. Extubated. Chest scattered crackles. Heart RRR Abd. soft. No tenderness. Ext No synovitis. Results/Medications Result Diagram: 01/05/17 0345 01/05/17 0345 Results 24 hrs Laboratory Tests Test 01/04/17 17:15 01/04/17 18:53 01/04/17 20:07 01/04/17 20:40 Bedside Glucose 78 69 L 117 Sodium Level 142 Potassium Level 2.7 *L Chloride Level 104 Carbon Dioxide Level 32 H Anion Gap 9 Blood Urea Nitrogen 39 H Creatinine 1.07 Glucose Level 77 Calcium Level 7.8 L Magnesium Level 2.1 Total Bilirubin 0.3 Direct Bilirubin 0.00 Indirect Bilirubin 0.3 Aspartate Amino Transf (AST/SGOT) 124 H Alanine Aminotransferase (ALT/SGPT) 51 Alkaline Phosphatase 62 Total Protein 4.4 L Albumin 2.0 L Globulin 2.40 Albumin/Globulin Ratio 0.83 Test 01/04/17 21:20 01/04/17 22:12 01/04/17 22:58 01/05/17 00:17 Bedside Glucose 91 118 117 Potassium Level 3.0 L Test 01/05/17 03:45 01/05/17 05:31 01/05/17 07:00 01/05/17 11:18 White Blood Count 9.7 Red Blood Count 3.64 L Hemoglobin 10.1 L Hematocrit 31.0 L Mean Corpuscular Volume 85.2 Mean Corpuscular Hemoglobin 27.7 L Mean Corpuscular Hemoglobin Concent 32.6 Red Cell Distribution Width 12.9 Platelet Count 204 Mean Platelet Volume 12.6 H Neutrophils % 88.4 H Lymphocytes % 6.3 L Monocytes % 3.5 Eosinophils % 0.9 Basophils % 0.1 Nucleated Red Blood Cells % 0.0 Neutrophils # 8.6 H Lymphocytes # 0.6 L Monocytes # 0.3 Eosinophils # 0.1 Basophils # 0.0 Nucleated Red Blood Cells # 0.0 Sodium Level 144 Potassium Level 3.3 L Chloride Level 107 Carbon Dioxide Level 31 Anion Gap 9 Blood Urea Nitrogen 35 H Creatinine 0.97 Glucose Level 135 # Calcium Level 7.5 L Phosphorus Level 3.8 Magnesium Level 2.0 Bedside Glucose 141 147 Blood Gas Specimen Source Blood arterial Arterial Blood Date Drawn 01/05/2017 7:48:33 AM Arterial Blood pH (Temp corrected) 7.513 H Arterial Blood pCO2 (Temp correct) 35.2 Arterial Blood pO2 (Temp corrected) 79.6 L Arterial Blood HCO3 27.6 H Arterial Blood Base Excess 4.7 H Arterial Blood Oxygen Saturation 95.4 Leobardo Test ACCEPTAB Arterial Blood Gas Puncture Site Right Radial Arterial Blood Carboxyhemoglobin 0.3 Arterial Blood Methemoglobin 0.2 Blood Gas A-a O2 Differential 309.5 H Oxyhemoglobin Percent 94.9 Total Hemoglobin 12.4 Blood Gas Temperature 37.0 Blood Gas Modality HFNC FiO2 60.0 Blood Gas Notified Whom JLD Blood Gas Notified Time 01/05/2017 9:15:50 AM Medications Current Medications Ondansetron HCl (Zofran Inj) 4 mg Q6H PRN IV NAUSEA AND/OR VOMITING; Start at 13:00 Acetaminophen (Tylenol Tab) 650 mg Q6H PRN PO PAIN LEVEL 1-3 OR FEVER Last administered on 12/29/16 06:02; Admin Dose 650 MG; Start 12/15/16 at 13:00 Acetaminophen/ Hydrocodone Bitart ([place] (5/325)) 1 tab Q6H PRN PO PAIN LEVEL 4 -6 Last administered on 12/15/16 22:08; Admin Dose 1 TAB; Start 12/15/16 at 13: 00 Morphine Sulfate (morphine) 2 mg Q4H PRN IV PAIN LEVEL 7-10 Last administered on 01/05/17 04:26; Admin Dose 2 MG; Start 12/15/16 at 13:00 Magnesium Hydroxide (Milk Of Mag) 30 ml DAILY PRN PO CONSTIPATION Last administered on 01/02/17 02:07; Admin Dose 30 ML; Start 12/15/16 at 13:00 Bisacodyl (Dulcolax) 5 mg DAILY PRN PO CONSTIPATION Last administered on 17:44; Admin Dose 5 MG; Start 12/15/16 at 13:00 Famotidine (Pepcid) 20 mg Q12 PO Last administered on 01/04/17 21:17; Admin Dose 20 MG; Start 12/15/16 at 21:00 Hydralazine HCl (Apresoline) 10 mg Q6H PRN IV SBP>160 Last administered on 01/05 14:30; Admin Dose 10 MG; Start 12/15/16 at 13:00 Aspirin (Aspirin) 325 mg DAILY PO Last administered on 01/04/17 08:45; Admin Dose 325 MG; Start 12/16/16 at 09:00 Atorvastatin Calcium (Lipitor) 80 mg QHS PO Last administered on 01/04/17 21: 18; Admin Dose 80 MG; Start 12/15/16 at 21:00 Heparin Sodium (Porcine) (Heparin (5000 Units/0.5 ml)) 5,000 unit BID SC Last administered on 01/05/17 09:31; Admin Dose 5,000 UNIT; Start 12/15/16 at 21:00 Miscellaneous Information 1 ea NOTE XX ; Start 12/15/16 at 14:00 Glucose (Glutose) 15 gm Q15M PRN PO DECREASED GLUCOSE; Start 12/15/16 at 14:00 Glucose (Glutose) 22.5 gm Q15M PRN PO DECREASED GLUCOSE; Start 12/15/16 at 14: 00 Glucagon (Glucagen) 1 mg Q15M PRN IM DECREASED GLUCOSE; Start 12/15/16 at 14:00 Glucose (Glutose) 15 gm Q15M PRN BUCCAL DECREASED GLUCOSE; Start 12/15/16 at 14 :00 Cholecalciferol 1000 unit 1,000 unit DAILY PO Last administered on 01/04/17 08 :45; Admin Dose 1,000 UNIT; Start 12/16/16 at 09:00 Fentanyl (Sublimaze) 100 ml @ 2.5 mls/hr TITRATE IV Last administered on 01:42; Admin Dose 10 MLS/HR; Start 12/18/16 at 03:30 Dextrose (D50w Syringe) 25 ml Q15M PRN IV Till BS 80 mg/dL or above x2 Last administered on 01/04/17 20:11; Admin Dose 25 ML; Start 12/18/16 at 14:00 Dextrose (D50w Syringe) 50 ml Q15M PRN IV Till BS 80 mg/dL or above x2; Start 12/18/16 at 14:00 IV Flush 10 ml 10 ml PRN PRN IV IV PROTOCOL; Start 12/18/16 at 17:00 Norepinephrine/ Dextrose (Levophed/D5W) 250 ml @ 0.46 mls/hr TITRATE IV ; Start 12/19/16 at 09:30 Amlodipine Besylate 5 mg 5 mg DAILY PO Last administered on 01/04/17 08:45; Admin Dose 5 MG; Start 12/21/16 at 09:00 Midazolam HCl 50 ml @ 1 mls/hr TITRATE IV Last administered on 01/04/17 03:02 ; Admin Dose 10 MLS/HR; Start 12/20/16 at 14:00 Propofol (Diprivan) 100 ml @ 3.255 mls/ hr Q12H IV Last administered on 05:21; Admin Dose 13.02 MLS/HR; Start 12/20/16 at 20:30 Hydralazine HCl (Apresoline) 10 mg Q4H PRN IV sbp > 160 Last administered on 22:35; Admin Dose 10 MG; Start 12/22/16 at 06:30 Lorazepam 1 mg 1 mg Q1H PRN IV agitation Last administered on 12/29/16 16:35; Admin Dose 1 MG; Start 12/25/16 at 03:30 Meropenem 100 ml @ 200 mls/hr Q12 IVPB Last administered on 01/05/17 09:30; Admin Dose 200 MLS/HR; Start 12/28/16 at 13:00 Caspofungin/ Sodium Chloride (Cancidas/NS) 250 ml @ 250 mls/hr Q24H IVPB Last administered on 01/05/17 11:19; Admin Dose 250 MLS/HR; Start 12/29/16 at 12:00 Insulin Glargine (Lantus) 52 unit DAILY@20 SC Last administered on 01/03/17 20 :35; Admin Dose 52 UNIT; Start 12/31/16 at 20:00 Methylprednisolone Sodium Succinate (Solu-Medrol) 40 mg Q12 IV Last administered on 01/05/17 09:30; Admin Dose 40 MG; Start 01/01/17 at 21:00 Hydralazine HCl 100 mg 100 mg Q8 PO Last administered on 01/05/17 05:30; Admin Dose 100 MG; Start 01/01/17 at 14:00 Vancomycin HCl/ Sodium Chloride (Vancocin/NS) 250 ml @ 83.333 mls/ hr Q24H IVPB Last administered on 01/04/17 17:08; Admin Dose 83.333 MLS/HR; Start 01/01 at 17:00 Spironolactone (Aldactone) 25 mg DAILY PO Last administered on 01/04/17 08:46 ; Admin Dose 25 MG; Start 01/03/17 at 09:00 Insulin Aspart (Novolog Insulin Pen) NOVOLOG *MILD* ALGORI... Q6 SC Last administered on 01/05/17 11:20; Admin Dose 1 UNIT; Start 01/05/17 at 00:00 Carvedilol (Coreg) 12.5 mg BID PO Last administered on 01/04/17 21:18; Admin Dose 12.5 MG; Start 01/04/17 at 21:00 Metoprolol Tartrate 5 mg 5 mg Q4H PRN IV HR>110 Last administered on 01/04/17 21:56; Admin Dose 5 MG; Start 01/04/17 at 19:30 Potassium Chloride/Dextrose (D5W + KCl 20 Meq) 1,000 ml @ 75 mls/hr [id number] IV Last administered on 01/05/17 09:24; Admin Dose 75 MLS/HR; Start 01/05/17 at 08:00 Clonidine HCl (Catapres-Tts 2 Patch) 1 patch Q7D TRANSDERM Last administered on 01/05/17 12:55; Admin Dose 1 PATCH; Start 01/05/17 at 12:00 Assessment/Plan Chief Complaint/Hosp Course 1. Positive DAISY of unclear significance so far. No definite evidence of vasculitis or Lupus, Anti DS DNA and SSA/SSB are negative. May continue on steroids empirically but taper . ESR improved to 50 and C-RP improved by yesterday. 2. Respiratory failure. 3. Hypertension 4. Renal insufficiency Much improved. 5. Diabetes mellitus. Glucose increased on steroids. Rec. 1. Steroid dose per pulmonary. Consider further tapering. Problems: ELIZABETH PUCKETT MD January 05, 2017 16:32
[2017-01-05] MEDS: VANCOMYCIN 1.5 GM in SOD CHLORIDE 0.9% 250 ML IVPB SCH (17:55)
[2017-01-05] MEDS: FUROSEMIDE 20 MG INJ IV SCH (18:03)
--- NOTE | 2017-01-05 18:16 | RADRPT ---
Vent Rate: 167 bpm RR Interval: 0 msec MD Interval: 0 msec QRS Duration: 80 msec QT Interval: 276 msec QTC Interval: 460 msec P-R-T [place]: 0 - 27 - 0 degrees Atrial fibrillation with rapid ventricular response Marked ST abnormality, possible anteroseptal subendocardial injury Abnormal ECG Electronically Signed By: Gerry Vargas [id number]
[2017-01-05] MEDS: INSULIN GLARGINE [LANtus] 3 ML PEN SC SCH (20:16)
[2017-01-05] MEDS: LORAZEPAM 2 MG INJ IV PRN (20:43)
[2017-01-05] MEDS: ATORVASTATIN 80 MG TAB PO SCH (21:00)
[2017-01-05 21:14] LABS: POTASSIUM 3.1 mmol/L (3.5-5.1)
[2017-01-05 21:17] LABS: CREATININE 0.89 mg/dl (0.61-1.24)
[2017-01-05 21:18] LABS: CALCIUM 7.6 mg/dl (8.4-10.2)
[2017-01-06] VITALS (27 sets, daily range): BP systolic 108–196; BP diastolic 66–102; PULSE 74–104; RESP 15–29
[2017-01-06] MEDS: hydrALAzine 20 MG INJ IV PRN ×3 (00:18→11:46)
[2017-01-06] MEDS: POTASSIUM CHLORIDE 50 ML IVPB SCH (01:42)
[2017-01-06] MEDS: morphine 2 MG INJ IV PRN ×3 (03:27→22:51)
[2017-01-06] MEDS: D5W + KCL 20 MEQ 1,000 ML IV SCH ×2 (03:51→21:04)
[2017-01-06] MEDS: LORAZEPAM 2 MG INJ IV PRN (03:51)
[2017-01-06 05:12] LABS: ADD SCAN DIFF NO
[2017-01-06 05:21] LABS: ABNORMAL IP MESSAGE 1; BASOPHILS % 0.1 % (0.0-2.0); EOSINOPHILS # 0.1 10^3/ul (0.0-0.5); EOSINOPHILS % 0.5 % (0.0-7.0); HEMATOCRIT 33.3 % (42.0-52.0); HEMOGLOBIN 10.9 g/dl (14.0-18.0); LYMPHOCYTES # 0.6 10^3/ul (0.8-2.9); MEAN CORPUSCULAR HEMOGLOBIN 27.7 pg (29.0-33.0); MEAN CORPUSCULAR HGB CONC 32.7 g/dl (32.0-37.0); MEAN CORPUSCULAR VOLUME 84.7 fl (82.0-101.0); MEAN PLATELET VOLUME 12.3 fl (7.4-10.4); MONOCYTE # 0.5 10^3/ul (0.3-0.9); MONOCYTES % 3.9 % (0.0-11.0); NEUTROPHIL # 10.5 10^3/ul (1.6-7.5); NEUTROPHILS % 90.5 % (39.0-77.0); PLATELET COUNT 260 10^3/UL (140-415); RED BLOOD COUNT 3.93 10^6/ul (4.70-6.10); RED CELL DISTRIBUTION WIDTH 13.2 % (11.5-14.5); WHITE BLOOD COUNT 11.6 10^3/ul (4.8-10.8)
[2017-01-06 05:27] LABS: LYMPHOCYTES % 4.7 % (15.0-51.0)
[2017-01-06] MEDS: FUROSEMIDE 20 MG INJ IV SCH ×2 (05:42→18:11)
[2017-01-06] MEDS: INSULIN ASPART [NOVOLOG] 3 ML PEN SC SCH ×4 (05:43→18:00)
[2017-01-06 06:15] LABS: POTASSIUM 3.5 mmol/L (3.5-5.1)
[2017-01-06 06:18] LABS: CREATININE 0.97 mg/dl (0.61-1.24)
[2017-01-06 06:19] LABS: CALCIUM 7.8 mg/dl (8.4-10.2); PHOSPHORUS 3.8 mg/dl (2.5-4.9)
[2017-01-06] MEDS: SEVELAMER CARBONATE 0.8 GM PKT PO SCH ×3 (07:35→17:35)
[2017-01-06] MEDS: PROPOFOL 100 ML IV SCH ×2 (08:30→20:30)
[2017-01-06] MEDS: MEROPENEM 500 MG/100 ML (PMX) 100 ML IVPB SCH (08:47)
[2017-01-06] MEDS: METHYLPREDNISOLONE 125 MG INJ IV SCH (08:48)
[2017-01-06 08:50] LABS: AADO2 Arterial 310.1 mmHg (7.0-24.0); Allen Test ACCEPTAB; Arterial Base Excess 6.6 mmol/L (-3.0-3); Arterial COHb 0.3 % (0.0-3.0); Arterial Fraction of Oxyhgb 94.5 % (93.0-99.0); Arterial HCO3 29.6 mmol/L (22.0-26.0); Arterial MetHb 0.4 % (0.0-1.5); MODE HFNC
[2017-01-06] MEDS: HEPARIN 5,000 UNIT/0.5 ML VIAL SC SCH ×2 (08:55→21:13)
[2017-01-06] MEDS: ASPIRIN 325 MG TAB PO SCH (09:57)
[2017-01-06] MEDS: SPIRONOLACTONE 25 MG TAB PO SCH (10:02)
[2017-01-06] MEDS: AMLODIPINE 5 MG TAB PO SCH (10:02)
[2017-01-06] MEDS: CHOLECALCIFEROL 1,000 UNIT TAB PO SCH (10:02)
[2017-01-06] MEDS: FAMOTIDINE 20 MG TAB PO SCH ×2 (10:03→21:05)
--- NOTE | 2017-01-06 11:01 | CONS ---
Date/Time of Note Date/Time of Note DATE: 01/06/17 TIME: 10:58 Consult Date/Type/Reason Admit Date/Time Dec 15, 2016 at 11:20 Initial Consult Date Type of Consultation: neph Ordering Provider: LEXII REED Subjective The patient is stable, no acute events overnight. The patient was extubated and pulled out ng, currently stable on nasal cannula. No other events noted. tolerates diet OBJECTIVE: HEENT: Head is normocephalic. NECK: Supple. HEART: Regular rate. LUNGS: Show diminished breath sounds at the base. ABDOMEN: Soft, nontender to palpation without rebound or guarding. EXTREMITIES: Negative for clubbing, cyanosis. Trace edema. DERMATOLOGIC: No rashes. MUSCULOSKELETAL: No joint effusions. NEUROLOGIC: No change in exam. MEDICATIONS: The patient's medications have been reviewed. IMAGING STUDIES: Reviewed. Objective Vital Signs Date Time Temp Pulse Resp B/P Pulse Ox O2 Delivery O2 Flow Rate FiO2 01/06/17 08:12 98.5 93 15 144/89 99 High Flow 01/06/17 05:44 70 01/04/17 15:30 8.0 Intake and Output 01/05/17 01/05/17 01/06/17 15:00 23:00 07:00 Intake Total 930 ml 1008.32 ml 505 ml Output Total 760 ml 640 ml 625 ml Balance 170 ml 368.32 ml -120 ml Results/Medications Result Diagram: 01/06/17 0400 01/06/17 0400 Results 24 hrs Laboratory Tests Test 01/05/17 11:18 01/05/17 18:04 01/05/17 20:12 01/05/17 20:34 Bedside Glucose 147 175 150 Sodium Level 142 Potassium Level 3.1 L Chloride Level 104 Carbon Dioxide Level 31 Anion Gap 10 Blood Urea Nitrogen 32 H Creatinine 0.89 Glucose Level 149 Calcium Level 7.6 L Test 01/06/17 00:25 01/06/17 04:00 01/06/17 05:41 01/06/17 07:45 Bedside Glucose 135 140 White Blood Count 11.6 H Red Blood Count 3.93 L Hemoglobin 10.9 L Hematocrit 33.3 L Mean Corpuscular Volume 84.7 Mean Corpuscular Hemoglobin 27.7 L Mean Corpuscular Hemoglobin Concent 32.7 Red Cell Distribution Width 13.2 Platelet Count 260 # Mean Platelet Volume 12.3 H Neutrophils % 90.5 H Lymphocytes % 4.7 L Monocytes % 3.9 Eosinophils % 0.5 Basophils % 0.1 Nucleated Red Blood Cells % 0.0 Neutrophils # 10.5 H Lymphocytes # 0.6 L Monocytes # 0.5 Eosinophils # 0.1 Basophils # 0.0 Nucleated Red Blood Cells # 0.0 Sodium Level 143 Potassium Level 3.5 Chloride Level 106 Carbon Dioxide Level 30 Anion Gap 11 Blood Urea Nitrogen 31 H Creatinine 0.97 Glucose Level 143 Calcium Level 7.8 L Phosphorus Level 3.8 Magnesium Level 2.0 Blood Gas Specimen Source Blood arterial Arterial Blood Date Drawn 01/06/2017 8:20:05 AM Arterial Blood pH (Temp corrected) 7.531 H Arterial Blood pCO2 (Temp correct) 36.1 Arterial Blood pO2 (Temp corrected) 78.0 L Arterial Blood HCO3 29.6 H Arterial Blood Base Excess 6.6 H Arterial Blood Oxygen Saturation 95.2 Leobardo Test ACCEPTAB Arterial Blood Gas Puncture Site Right Radial Arterial Blood Carboxyhemoglobin 0.3 Arterial Blood Methemoglobin 0.4 Blood Gas A-a O2 Differential 310.1 H Oxyhemoglobin Percent 94.5 Total Hemoglobin 10.0 L Blood Gas Temperature 37.0 Blood Gas Modality HFNC FiO2 60.0 Blood Gas Notified Whom AT Blood Gas Notified Time 01/06/2017 8:50:30 AM Medications Current Medications Ondansetron HCl (Zofran Inj) 4 mg Q6H PRN IV NAUSEA AND/OR VOMITING; Start at 13:00 Acetaminophen (Tylenol Tab) 650 mg Q6H PRN PO PAIN LEVEL 1-3 OR FEVER Last administered on 12/29/16 06:02; Admin Dose 650 MG; Start 12/15/16 at 13:00 Acetaminophen/ Hydrocodone Bitart ([place] (5/325)) 1 tab Q6H PRN PO PAIN LEVEL 4 -6 Last administered on 12/15/16 22:08; Admin Dose 1 TAB; Start 12/15/16 at 13: 00 Morphine Sulfate (morphine) 2 mg Q4H PRN IV PAIN LEVEL 7-10 Last administered on 01/06/17 03:27; Admin Dose 2 MG; Start 12/15/16 at 13:00 Magnesium Hydroxide (Milk Of Mag) 30 ml DAILY PRN PO CONSTIPATION Last administered on 01/02/17 02:07; Admin Dose 30 ML; Start 12/15/16 at 13:00 Bisacodyl (Dulcolax) 5 mg DAILY PRN PO CONSTIPATION Last administered on 17:44; Admin Dose 5 MG; Start 12/15/16 at 13:00 Famotidine (Pepcid) 20 mg Q12 PO Last administered on 01/06/17 10:03; Admin Dose 20 MG; Start 12/15/16 at 21:00 Hydralazine HCl (Apresoline) 10 mg Q6H PRN IV SBP>160 Last administered on 01/06 00:18; Admin Dose 10 MG; Start 12/15/16 at 13:00 Aspirin (Aspirin) 325 mg DAILY PO Last administered on 01/06/17 09:57; Admin Dose 325 MG; Start 12/16/16 at 09:00 Atorvastatin Calcium (Lipitor) 80 mg QHS PO Last administered on 01/04/17 21: 18; Admin Dose 80 MG; Start 12/15/16 at 21:00 Heparin Sodium (Porcine) (Heparin (5000 Units/0.5 ml)) 5,000 unit BID SC Last administered on 01/06/17 08:55; Admin Dose 5,000 UNIT; Start 12/15/16 at 21:00 Miscellaneous Information 1 ea NOTE XX ; Start 12/15/16 at 14:00 Glucose (Glutose) 15 gm Q15M PRN PO DECREASED GLUCOSE; Start 12/15/16 at 14:00 Glucose (Glutose) 22.5 gm Q15M PRN PO DECREASED GLUCOSE; Start 12/15/16 at 14: 00 Glucagon (Glucagen) 1 mg Q15M PRN IM DECREASED GLUCOSE; Start 12/15/16 at 14:00 Glucose (Glutose) 15 gm Q15M PRN BUCCAL DECREASED GLUCOSE; Start 12/15/16 at 14 :00 Cholecalciferol 1000 unit 1,000 unit DAILY PO Last administered on 01/06/17 10 :02; Admin Dose 1,000 UNIT; Start 12/16/16 at 09:00 Fentanyl (Sublimaze) 100 ml @ 2.5 mls/hr TITRATE IV Last administered on 01:42; Admin Dose 10 MLS/HR; Start 12/18/16 at 03:30 Dextrose (D50w Syringe) 25 ml Q15M PRN IV Till BS 80 mg/dL or above x2 Last administered on 01/04/17 20:11; Admin Dose 25 ML; Start 12/18/16 at 14:00 Dextrose (D50w Syringe) 50 ml Q15M PRN IV Till BS 80 mg/dL or above x2; Start 12/18/16 at 14:00 IV Flush 10 ml 10 ml PRN PRN IV IV PROTOCOL; Start 12/18/16 at 17:00 Norepinephrine/ Dextrose (Levophed/D5W) 250 ml @ 0.46 mls/hr TITRATE IV ; Start 12/19/16 at 09:30 Amlodipine Besylate 5 mg 5 mg DAILY PO Last administered on 01/06/17 10:02; Admin Dose 5 MG; Start 12/21/16 at 09:00 Midazolam HCl 50 ml @ 1 mls/hr TITRATE IV Last administered on 01/04/17 03:02 ; Admin Dose 10 MLS/HR; Start 12/20/16 at 14:00 Propofol (Diprivan) 100 ml @ 3.255 mls/ hr Q12H IV Last administered on 05:21; Admin Dose 13.02 MLS/HR; Start 12/20/16 at 20:30 Hydralazine HCl (Apresoline) 10 mg Q4H PRN IV sbp > 160 Last administered on 05:08; Admin Dose 10 MG; Start 12/22/16 at 06:30 Lorazepam 1 mg 1 mg Q1H PRN IV agitation Last administered on 01/06/17 03:51; Admin Dose 1 MG; Start 12/25/16 at 03:30 Meropenem 100 ml @ 200 mls/hr Q12 IVPB Last administered on 01/06/17 08:47; Admin Dose 200 MLS/HR; Start 12/28/16 at 13:00 Caspofungin/ Sodium Chloride (Cancidas/NS) 250 ml @ 250 mls/hr Q24H IVPB Last administered on 01/05/17 11:19; Admin Dose 250 MLS/HR; Start 12/29/16 at 12:00 Insulin Glargine (Lantus) 52 unit DAILY@20 SC Last administered on 01/05/17 20 :16; Admin Dose 52 UNIT; Start 12/31/16 at 20:00 Methylprednisolone Sodium Succinate (Solu-Medrol) 40 mg Q12 IV Last administered on 01/06/17 08:48; Admin Dose 40 MG; Start 01/01/17 at 21:00 Hydralazine HCl 100 mg 100 mg Q8 PO Last administered on 01/05/17 05:30; Admin Dose 100 MG; Start 01/01/17 at 14:00 Vancomycin HCl/ Sodium Chloride (Vancocin/NS) 250 ml @ 83.333 mls/ hr Q24H IVPB Last administered on 01/05/17 17:55; Admin Dose 83.333 MLS/HR; Start 01/01 at 17:00 Spironolactone (Aldactone) 25 mg DAILY PO Last administered on 01/06/17 10:02 ; Admin Dose 25 MG; Start 01/03/17 at 09:00 Insulin Aspart (Novolog Insulin Pen) NOVOLOG *MILD* ALGORI... Q6 SC Last administered on 01/05/17 18:07; Admin Dose 1 UNIT; Start 01/05/17 at 00:00 Carvedilol (Coreg) 12.5 mg BID PO Last administered on 01/06/17 09:57; Admin Dose 12.5 MG; Start 01/04/17 at 21:00 Metoprolol Tartrate 5 mg 5 mg Q4H PRN IV HR>110 Last administered on 01/04/17 21:56; Admin Dose 5 MG; Start 01/04/17 at 19:30 Potassium Chloride/Dextrose (D5W + KCl 20 Meq) 1,000 ml @ 75 mls/hr [id number] IV Last administered on 01/06/17 03:51; Admin Dose 75 MLS/HR; Start 01/05/17 at 08:00 Clonidine HCl (Catapres-Tts 2 Patch) 1 patch Q7D TRANSDERM Last administered on 01/05/17 12:55; Admin Dose 1 PATCH; Start 01/05/17 at 12:00 Assessment/Plan Chief Complaint/Hosp Course ASSESSMENT AND PLAN: 1. Nonoliguric acute kidney injury with previous baseline creatinine 1.0 mg/ dL. Etiology is secondary to acute tubular necrosis. Renal function has improved. Continue current treatment plan, supportive care, renal dose all meds , avoid nephrotoxins. 2. Hyperkalemia. Continue to replete with potassium chloride. Continue Aldactone. Will add potassium to IV fluids. 3. Volume overload secondary to acute kidney injury, diastolic heart failure. The patient clinically improving. Will de-escalate Lasix 20 mg IV b.i.d. 4. Metabolic alkalemia secondary to diuretic therapy hypokalemia, improving. Continue to monitor. 5. Hyponatremia. Continue hypertonic fluids. 6. Mineral bone disorder. Continue to monitor calcium and phosphorus levels. 7. Anemia. Continue to monitor hemoglobin and hematocrit levels. 8. Acute respiratory failure. Patient is status post extubation, currently stable on nasal cannula. Continue to monitor. Followup x-ray and ABGs. 9. Sepsis secondary to multifocal pneumonia. Continue current antibiotic regimen. 10. non-ST elevation myocardial infarction. Continue current treatment plan. 11. Diabetes. Continue Accu-Cheks and sliding scale. 12. Hypertension. Continue current blood pressure regimen. 13. Encephalopathy. No change. 14. Positive DAISY with unclear clinical significance. 15. History of polysubstance abuse. will see prn Problems: PAULINE YUNG MD January 06, 2017 11:01
--- NOTE | 2017-01-06 11:14 | PN ---
Date/Time of Note Date/Time of Note DATE: 01/06/17 TIME: 11:06 Assessment/Plan VTE Prophylaxis VTE Prophylaxis Intervention: heparin Lines/Catheters IV C[facility]ter Type (from [facility] PICC Line Central line still needed: Yes Urinary Cath still in place: Yes Reason Cath still needed: urinary retention Assessment/Plan Chief Complaint/Hosp Course A/P: 41 M with: 1. Sepsis secondary to underlying community-acquired pneumonia with septic shock. Currently off pressors. On ABX as per ID, but will hold meropenem for now (possible delerium SE?). Mycoplasma serology abnormal. 2. Acute hypoxic respiratory failure. Most probably secondary to underlying pneumonia versus others. Patient got intubated on 12/18/2016, extubated on . Continue inhaled bronchodilators. Pulmonology following the patient. 3. Elevated troponins. Most probably a type 2 event from underlying sepsis and underlying acute kidney injury. Cardiology following. 4. Acute kidney injury. The patient had a normal creatinine of 1.00 on 2015. The patient's current acute kidney injury could be most probably secondary to dehydration from persistent vomiting - improving now. The patient' s nephrotoxic drugs will be held at this time. Being followed by nephrology. 5. Type 2 diabetes mellitus. Uncontrolled. A1C is high (send out). The patient will be maintained on sliding scale insulin along with basal insulin. 6. Dyslipidemia. Continue statins. 7. Essential hypertension. Continue antihypertensives. 8. Hypocalcemia. Probably secondary to underlying hypoalbuminemia. 9. Microcytic, hypochromic anemia. Etiology unclear. Iron panel showing iron deficiency. Continue iron supplements. 10. Vitamin D deficiency. Continue supplements. 11. Fluids, electrolytes, and nutrition. Tube feedings. 12. DVT prophylaxis. Subcutaneous heparin. 13. Gastrointestinal prophylaxis. Histamine 2 receptor blockers. 14. Plan. Continue antibiotics. Continue ventilator support. Ventilator weaning as per Pulmonary. Adjust insulin to obtain optimal blood sugar control. 15. Positive DAISY with unclear clinical significance. Continue to monitor ,f/u rheum rec's. Taper down steroids. Critical care time: 40 minutes. Problems: Subjective 24 Hr Interval Summary Free Text/Dictation Pt with some confusion, seen by ST. Exam/Review of Systems Vital Signs Vitals Vital Signs Date Time Temp Pulse Resp B/P Pulse Ox O2 Delivery O2 Flow Rate FiO2 01/06/17 08:12 98.5 93 15 144/89 99 High Flow 01/06/17 05:44 70 01/04/17 15:30 8.0 Intake and Output 01/05/17 01/05/17 01/06/17 15:00 23:00 07:00 Intake Total 930 ml 1008.32 ml 505 ml Output Total 760 ml 640 ml 625 ml Balance 170 ml 368.32 ml -120 ml Exam GENERAL: This is a morbidly obese male lying in bed, lethargic HEENT: Head normocephalic and atraumatic. Eyes: Anicteric sclerae. Conjunctivae clear. ENT: Nasal septum is midline. Oral mucosa is dry. NECK: Short with increased neck circumference. RESPIRATORY: Bilaterally diminished breath sounds. On mechanical ventilator. CARDIAC: Regular rate and rhythm. S1, S2 heard. ABDOMEN: Soft, nontender and nondistended. Bowel sounds positive in all 4 quadrants. EXTREMITIES: No cyanosis, no clubbing. B/L LE edema. Pedal pulses palpable. Status post left great toe amputation. NEUROLOGIC: The patient is sedated. Results Result Diagram: 01/06/17 0400 01/06/17 0400 Results 24 hrs Laboratory Tests Test 01/05/17 11:18 01/05/17 18:04 01/05/17 20:12 01/05/17 20:34 Bedside Glucose 147 175 150 Sodium Level 142 Potassium Level 3.1 L Chloride Level 104 Carbon Dioxide Level 31 Anion Gap 10 Blood Urea Nitrogen 32 H Creatinine 0.89 Glucose Level 149 Calcium Level 7.6 L Test 01/06/17 00:25 01/06/17 04:00 01/06/17 05:41 01/06/17 07:45 Bedside Glucose 135 140 White Blood Count 11.6 H Red Blood Count 3.93 L Hemoglobin 10.9 L Hematocrit 33.3 L Mean Corpuscular Volume 84.7 Mean Corpuscular Hemoglobin 27.7 L Mean Corpuscular Hemoglobin Concent 32.7 Red Cell Distribution Width 13.2 Platelet Count 260 # Mean Platelet Volume 12.3 H Neutrophils % 90.5 H Lymphocytes % 4.7 L Monocytes % 3.9 Eosinophils % 0.5 Basophils % 0.1 Nucleated Red Blood Cells % 0.0 Neutrophils # 10.5 H Lymphocytes # 0.6 L Monocytes # 0.5 Eosinophils # 0.1 Basophils # 0.0 Nucleated Red Blood Cells # 0.0 Sodium Level 143 Potassium Level 3.5 Chloride Level 106 Carbon Dioxide Level 30 Anion Gap 11 Blood Urea Nitrogen 31 H Creatinine 0.97 Glucose Level 143 Calcium Level 7.8 L Phosphorus Level 3.8 Magnesium Level 2.0 Blood Gas Specimen Source Blood arterial Arterial Blood Date Drawn 01/06/2017 8:20:05 AM Arterial Blood pH (Temp corrected) 7.531 H Arterial Blood pCO2 (Temp correct) 36.1 Arterial Blood pO2 (Temp corrected) 78.0 L Arterial Blood HCO3 29.6 H Arterial Blood Base Excess 6.6 H Arterial Blood Oxygen Saturation 95.2 Leobardo Test ACCEPTAB Arterial Blood Gas Puncture Site Right Radial Arterial Blood Carboxyhemoglobin 0.3 Arterial Blood Methemoglobin 0.4 Blood Gas A-a O2 Differential 310.1 H Oxyhemoglobin Percent 94.5 Total Hemoglobin 10.0 L Blood Gas Temperature 37.0 Blood Gas Modality HFNC FiO2 60.0 Blood Gas Notified Whom AT Blood Gas Notified Time 01/06/2017 8:50:30 AM Medications Medications Current Medications Ondansetron HCl (Zofran Inj) 4 mg Q6H PRN IV NAUSEA AND/OR VOMITING; Start at 13:00 Acetaminophen (Tylenol Tab) 650 mg Q6H PRN PO PAIN LEVEL 1-3 OR FEVER Last administered on 12/29/16 06:02; Admin Dose 650 MG; Start 12/15/16 at 13:00 Acetaminophen/ Hydrocodone Bitart ([place] (5/325)) 1 tab Q6H PRN PO PAIN LEVEL 4 -6 Last administered on 12/15/16 22:08; Admin Dose 1 TAB; Start 12/15/16 at 13: 00 Morphine Sulfate (morphine) 2 mg Q4H PRN IV PAIN LEVEL 7-10 Last administered on 01/06/17 03:27; Admin Dose 2 MG; Start 12/15/16 at 13:00 Magnesium Hydroxide (Milk Of Mag) 30 ml DAILY PRN PO CONSTIPATION Last administered on 01/02/17 02:07; Admin Dose 30 ML; Start 12/15/16 at 13:00 Bisacodyl (Dulcolax) 5 mg DAILY PRN PO CONSTIPATION Last administered on 17:44; Admin Dose 5 MG; Start 12/15/16 at 13:00 Famotidine (Pepcid) 20 mg Q12 PO Last administered on 01/06/17 10:03; Admin Dose 20 MG; Start 12/15/16 at 21:00 Hydralazine HCl (Apresoline) 10 mg Q6H PRN IV SBP>160 Last administered on 01/06 00:18; Admin Dose 10 MG; Start 12/15/16 at 13:00 Aspirin (Aspirin) 325 mg DAILY PO Last administered on 01/06/17 09:57; Admin Dose 325 MG; Start 12/16/16 at 09:00 Atorvastatin Calcium (Lipitor) 80 mg QHS PO Last administered on 01/04/17 21: 18; Admin Dose 80 MG; Start 12/15/16 at 21:00 Heparin Sodium (Porcine) (Heparin (5000 Units/0.5 ml)) 5,000 unit BID SC Last administered on 01/06/17 08:55; Admin Dose 5,000 UNIT; Start 12/15/16 at 21:00 Miscellaneous Information 1 ea NOTE XX ; Start 12/15/16 at 14:00 Glucose (Glutose) 15 gm Q15M PRN PO DECREASED GLUCOSE; Start 12/15/16 at 14:00 Glucose (Glutose) 22.5 gm Q15M PRN PO DECREASED GLUCOSE; Start 12/15/16 at 14: 00 Glucagon (Glucagen) 1 mg Q15M PRN IM DECREASED GLUCOSE; Start 12/15/16 at 14:00 Glucose (Glutose) 15 gm Q15M PRN BUCCAL DECREASED GLUCOSE; Start 12/15/16 at 14 :00 Cholecalciferol 1000 unit 1,000 unit DAILY PO Last administered on 01/06/17 10 :02; Admin Dose 1,000 UNIT; Start 12/16/16 at 09:00 Fentanyl (Sublimaze) 100 ml @ 2.5 mls/hr TITRATE IV Last administered on 01:42; Admin Dose 10 MLS/HR; Start 12/18/16 at 03:30 Dextrose (D50w Syringe) 25 ml Q15M PRN IV Till BS 80 mg/dL or above x2 Last administered on 01/04/17 20:11; Admin Dose 25 ML; Start 12/18/16 at 14:00 Dextrose (D50w Syringe) 50 ml Q15M PRN IV Till BS 80 mg/dL or above x2; Start 12/18/16 at 14:00 IV Flush 10 ml 10 ml PRN PRN IV IV PROTOCOL; Start 12/18/16 at 17:00 Norepinephrine/ Dextrose (Levophed/D5W) 250 ml @ 0.46 mls/hr TITRATE IV ; Start 12/19/16 at 09:30 Amlodipine Besylate 5 mg 5 mg DAILY PO Last administered on 01/06/17 10:02; Admin Dose 5 MG; Start 12/21/16 at 09:00 Midazolam HCl 50 ml @ 1 mls/hr TITRATE IV Last administered on 01/04/17 03:02 ; Admin Dose 10 MLS/HR; Start 12/20/16 at 14:00 Propofol (Diprivan) 100 ml @ 3.255 mls/ hr Q12H IV Last administered on 05:21; Admin Dose 13.02 MLS/HR; Start 12/20/16 at 20:30 Hydralazine HCl 10 mg 10 mg Q4H PRN IV sbp > 160 Last administered on 05:08; Admin Dose 10 MG; Start 12/22/16 at 06:30 Meropenem 100 ml @ 200 mls/hr Q12 IVPB Last administered on 01/06/17 08:47; Admin Dose 200 MLS/HR; Start 12/28/16 at 13:00 Caspofungin/ Sodium Chloride (Cancidas/NS) 250 ml @ 250 mls/hr Q24H IVPB Last administered on 01/05/17 11:19; Admin Dose 250 MLS/HR; Start 12/29/16 at 12:00 Insulin Glargine (Lantus) 52 unit DAILY@20 SC Last administered on 01/05/17 20 :16; Admin Dose 52 UNIT; Start 12/31/16 at 20:00 Hydralazine HCl 100 mg 100 mg Q8 PO Last administered on 01/05/17 05:30; Admin Dose 100 MG; Start 01/01/17 at 14:00 Vancomycin HCl/ Sodium Chloride (Vancocin/NS) 250 ml @ 83.333 mls/ hr Q24H IVPB Last administered on 01/05/17 17:55; Admin Dose 83.333 MLS/HR; Start 01/01 at 17:00 Spironolactone (Aldactone) 25 mg DAILY PO Last administered on 01/06/17 10:02 ; Admin Dose 25 MG; Start 01/03/17 at 09:00 Insulin Aspart (Novolog Insulin Pen) NOVOLOG *MILD* ALGORI... Q6 SC Last administered on 01/05/17 18:07; Admin Dose 1 UNIT; Start 01/05/17 at 00:00 Carvedilol (Coreg) 12.5 mg BID PO Last administered on 01/06/17 09:57; Admin Dose 12.5 MG; Start 01/04/17 at 21:00 Metoprolol Tartrate 5 mg 5 mg Q4H PRN IV HR>110 Last administered on 01/04/17 21:56; Admin Dose 5 MG; Start 01/04/17 at 19:30 Potassium Chloride/Dextrose (D5W + KCl 20 Meq) 1,000 ml @ 75 mls/hr [id number] IV Last administered on 01/06/17 03:51; Admin Dose 75 MLS/HR; Start 01/05/17 at 08:00 Clonidine HCl (Catapres-Tts 2 Patch) 1 patch Q7D TRANSDERM Last administered on 01/05/17 12:55; Admin Dose 1 PATCH; Start 01/05/17 at 12:00 Prednisone (Prednisone) 60 mg DAILY PO ; Start 01/07/17 at 09:00 Lorazepam (Ativan) 1 mg Q12H PRN IV AGITATION/ANXIETY; Start 01/06/17 at 11:30 CLARITA VERMA January 06, 2017 11:14
--- NOTE | 2017-01-06 11:20 | RADRPT ---
PROCEDURE: XR Chest. CLINICAL INDICATION: Pneumonia, CHF TECHNIQUE: Single frontal chest x-ray. COMPARISON: 01/05/2017 FINDINGS: No acute infiltrate, pleural effusion or pneumothorax is identified. Cardiomediastinal silhouette i s within normal limits. Left-sided PICC line remains in place. Nasogastric tube has been removed. The osseous structures are unremarkable. IMPRESSION: 1. No evidence of acute cardiopulmonary process. 2. Left-sided PICC line remains in place. Nasogastric tube has been removed. RPTAT: QQ .Francisco Richardson MD, MD Date Time Electronically viewed and signed by .Francisco Richardson MD, on 01/06/2017 11:20 .R/
[2017-01-06] MEDS ORDERED: LORAZEPAM 2 MG INJ IV PRN (11:30)
--- NOTE | 2017-01-06 12:31 | CONS ---
Date/Time of Note Date/Time of Note DATE: 01/06/17 TIME: 12:29 Consult Date/Type/Reason Admit Date/Time Dec 15, 2016 at 11:20 Type of Consultation: Pulm Ordering Provider: LEXII REED Subjective Very agitated and confused. Objective Vital Signs Date Time Temp Pulse Resp B/P Pulse Ox O2 Delivery O2 Flow Rate FiO2 01/06/17 11:13 96 50 01/06/17 08:12 98.5 93 15 144/89 High Flow 01/04/17 15:30 8.0 Intake and Output 01/05/17 01/05/17 01/06/17 15:00 23:00 07:00 Intake Total 930 ml 1008.32 ml 505 ml Output Total 760 ml 640 ml 625 ml Balance 170 ml 368.32 ml -120 ml Exam HEENT: Neck supple; no JVD; no LAD CVS: RRR, S1 and S2 CHEST: Clear ABD: Soft, NT, + BS EXT: No c/c/ + edema Results/Medications Result Diagram: 01/06/17 0400 01/06/17 0400 Results 24 hrs Laboratory Tests Test 01/05/17 18:04 01/05/17 20:12 01/05/17 20:34 01/06/17 00:25 Bedside Glucose 175 150 135 Sodium Level 142 Potassium Level 3.1 L Chloride Level 104 Carbon Dioxide Level 31 Anion Gap 10 Blood Urea Nitrogen 32 H Creatinine 0.89 Glucose Level 149 Calcium Level 7.6 L Test 01/06/17 04:00 01/06/17 05:41 01/06/17 07:45 White Blood Count 11.6 H Red Blood Count 3.93 L Hemoglobin 10.9 L Hematocrit 33.3 L Mean Corpuscular Volume 84.7 Mean Corpuscular Hemoglobin 27.7 L Mean Corpuscular Hemoglobin Concent 32.7 Red Cell Distribution Width 13.2 Platelet Count 260 # Mean Platelet Volume 12.3 H Neutrophils % 90.5 H Lymphocytes % 4.7 L Monocytes % 3.9 Eosinophils % 0.5 Basophils % 0.1 Nucleated Red Blood Cells % 0.0 Neutrophils # 10.5 H Lymphocytes # 0.6 L Monocytes # 0.5 Eosinophils # 0.1 Basophils # 0.0 Nucleated Red Blood Cells # 0.0 Sodium Level 143 Potassium Level 3.5 Chloride Level 106 Carbon Dioxide Level 30 Anion Gap 11 Blood Urea Nitrogen 31 H Creatinine 0.97 Glucose Level 143 Calcium Level 7.8 L Phosphorus Level 3.8 Magnesium Level 2.0 Bedside Glucose 140 Blood Gas Specimen Source Blood arterial Arterial Blood Date Drawn 01/06/2017 8:20:05 AM Arterial Blood pH (Temp corrected) 7.531 H Arterial Blood pCO2 (Temp correct) 36.1 Arterial Blood pO2 (Temp corrected) 78.0 L Arterial Blood HCO3 29.6 H Arterial Blood Base Excess 6.6 H Arterial Blood Oxygen Saturation 95.2 Leobardo Test ACCEPTAB Arterial Blood Gas Puncture Site Right Radial Arterial Blood Carboxyhemoglobin 0.3 Arterial Blood Methemoglobin 0.4 Blood Gas A-a O2 Differential 310.1 H Oxyhemoglobin Percent 94.5 Total Hemoglobin 10.0 L Blood Gas Temperature 37.0 Blood Gas Modality HFNC FiO2 60.0 Blood Gas Notified Whom AT Blood Gas Notified Time 01/06/2017 8:50:30 AM Medications Current Medications Ondansetron HCl (Zofran Inj) 4 mg Q6H PRN IV NAUSEA AND/OR VOMITING; Start at 13:00 Acetaminophen (Tylenol Tab) 650 mg Q6H PRN PO PAIN LEVEL 1-3 OR FEVER Last administered on 12/29/16 06:02; Admin Dose 650 MG; Start 12/15/16 at 13:00 Acetaminophen/ Hydrocodone Bitart ([place] (5/325)) 1 tab Q6H PRN PO PAIN LEVEL 4 -6 Last administered on 12/15/16 22:08; Admin Dose 1 TAB; Start 12/15/16 at 13: 00 Morphine Sulfate (morphine) 2 mg Q4H PRN IV PAIN LEVEL 7-10 Last administered on 01/06/17 11:46; Admin Dose 2 MG; Start 12/15/16 at 13:00 Magnesium Hydroxide (Milk Of Mag) 30 ml DAILY PRN PO CONSTIPATION Last administered on 01/02/17 02:07; Admin Dose 30 ML; Start 12/15/16 at 13:00 Bisacodyl (Dulcolax) 5 mg DAILY PRN PO CONSTIPATION Last administered on 17:44; Admin Dose 5 MG; Start 12/15/16 at 13:00 Famotidine (Pepcid) 20 mg Q12 PO Last administered on 01/06/17 10:03; Admin Dose 20 MG; Start 12/15/16 at 21:00 Hydralazine HCl (Apresoline) 10 mg Q6H PRN IV SBP>160 Last administered on 01/06 00:18; Admin Dose 10 MG; Start 12/15/16 at 13:00 Aspirin (Aspirin) 325 mg DAILY PO Last administered on 01/06/17 09:57; Admin Dose 325 MG; Start 12/16/16 at 09:00 Atorvastatin Calcium (Lipitor) 80 mg QHS PO Last administered on 01/04/17 21: 18; Admin Dose 80 MG; Start 12/15/16 at 21:00 Heparin Sodium (Porcine) (Heparin (5000 Units/0.5 ml)) 5,000 unit BID SC Last administered on 01/06/17 08:55; Admin Dose 5,000 UNIT; Start 12/15/16 at 21:00 Miscellaneous Information 1 ea NOTE XX ; Start 12/15/16 at 14:00 Glucose (Glutose) 15 gm Q15M PRN PO DECREASED GLUCOSE; Start 12/15/16 at 14:00 Glucose (Glutose) 22.5 gm Q15M PRN PO DECREASED GLUCOSE; Start 12/15/16 at 14: 00 Glucagon (Glucagen) 1 mg Q15M PRN IM DECREASED GLUCOSE; Start 12/15/16 at 14:00 Glucose (Glutose) 15 gm Q15M PRN BUCCAL DECREASED GLUCOSE; Start 12/15/16 at 14 :00 Cholecalciferol 1000 unit 1,000 unit DAILY PO Last administered on 01/06/17 10 :02; Admin Dose 1,000 UNIT; Start 12/16/16 at 09:00 Fentanyl (Sublimaze) 100 ml @ 2.5 mls/hr TITRATE IV Last administered on 01:42; Admin Dose 10 MLS/HR; Start 12/18/16 at 03:30 Dextrose (D50w Syringe) 25 ml Q15M PRN IV Till BS 80 mg/dL or above x2 Last administered on 01/04/17 20:11; Admin Dose 25 ML; Start 12/18/16 at 14:00 Dextrose (D50w Syringe) 50 ml Q15M PRN IV Till BS 80 mg/dL or above x2; Start 12/18/16 at 14:00 IV Flush 10 ml 10 ml PRN PRN IV IV PROTOCOL; Start 12/18/16 at 17:00 Norepinephrine/ Dextrose (Levophed/D5W) 250 ml @ 0.46 mls/hr TITRATE IV ; Start 12/19/16 at 09:30 Amlodipine Besylate 5 mg 5 mg DAILY PO Last administered on 01/06/17 10:02; Admin Dose 5 MG; Start 12/21/16 at 09:00 Midazolam HCl 50 ml @ 1 mls/hr TITRATE IV Last administered on 01/04/17 03:02 ; Admin Dose 10 MLS/HR; Start 12/20/16 at 14:00 Propofol (Diprivan) 100 ml @ 3.255 mls/ hr Q12H IV Last administered on 05:21; Admin Dose 13.02 MLS/HR; Start 12/20/16 at 20:30 Hydralazine HCl 10 mg 10 mg Q4H PRN IV sbp > 160 Last administered on 11:46; Admin Dose 10 MG; Start 12/22/16 at 06:30 Meropenem 100 ml @ 200 mls/hr Q12 IVPB Last administered on 01/06/17 08:47; Admin Dose 200 MLS/HR; Start 12/28/16 at 13:00; Status Future Hold Caspofungin/ Sodium Chloride (Cancidas/NS) 250 ml @ 250 mls/hr Q24H IVPB Last administered on 01/05/17 11:19; Admin Dose 250 MLS/HR; Start 12/29/16 at 12:00 Insulin Glargine (Lantus) 52 unit DAILY@20 SC Last administered on 01/05/17 20 :16; Admin Dose 52 UNIT; Start 12/31/16 at 20:00 Hydralazine HCl 100 mg 100 mg Q8 PO Last administered on 01/05/17 05:30; Admin Dose 100 MG; Start 01/01/17 at 14:00 Vancomycin HCl/ Sodium Chloride (Vancocin/NS) 250 ml @ 83.333 mls/ hr Q24H IVPB Last administered on 01/05/17 17:55; Admin Dose 83.333 MLS/HR; Start 01/01 at 17:00 Spironolactone (Aldactone) 25 mg DAILY PO Last administered on 01/06/17 10:02 ; Admin Dose 25 MG; Start 01/03/17 at 09:00 Insulin Aspart (Novolog Insulin Pen) NOVOLOG *MILD* ALGORI... Q6 SC Last administered on 01/05/17 18:07; Admin Dose 1 UNIT; Start 01/05/17 at 00:00 Carvedilol (Coreg) 12.5 mg BID PO Last administered on 01/06/17 09:57; Admin Dose 12.5 MG; Start 01/04/17 at 21:00 Metoprolol Tartrate 5 mg 5 mg Q4H PRN IV HR>110 Last administered on 01/04/17 21:56; Admin Dose 5 MG; Start 01/04/17 at 19:30 Potassium Chloride/Dextrose (D5W + KCl 20 Meq) 1,000 ml @ 75 mls/hr [id number] IV Last administered on 01/06/17 03:51; Admin Dose 75 MLS/HR; Start 01/05/17 at 08:00 Clonidine HCl (Catapres-Tts 2 Patch) 1 patch Q7D TRANSDERM Last administered on 01/05/17 12:55; Admin Dose 1 PATCH; Start 01/05/17 at 12:00 Lorazepam (Ativan) 1 mg Q12H PRN IV AGITATION/ANXIETY; Start 01/06/17 at 11:30 Prednisone (Prednisone) 40 mg DAILY PO ; Start 01/07/17 at 09:00 Assessment/Plan Additional Assessment/Plan IMP 1. Acute hypoxemic respiratory failure likely due to mycoplasma pneumonia--now improved 2. Workup for vasculitis will decrease steroids. Appreciate rheumatology recommendations. 3. Diabetes mellitus 4. Renal insufficiency possible ATN injury improved RECS 1. Minimize sedatives/narcotics 2. Decrease FiO2 as tolerated 3. Taper CS 4. De-escalate abx FELICITY HAYS MD January 06, 2017 12:31
[2017-01-06] MEDS: CASPOFUNGIN 50 MG in SOD CHLORIDE 0.9% 250 ML IVPB SCH (12:46)
[2017-01-06] MEDS ORDERED: HALOPERIDOL 5 MG INJ IV ONE (13:00)
[2017-01-06] MEDS: HALOPERIDOL 5 MG INJ IV PRN ×2 (13:10→21:49)
--- NOTE | 2017-01-06 13:36 | CONS ---
Date/Time of Note Date/Time of Note DATE: 01/06/17 TIME: 13:30 Assessment/Plan Assessment/Plan Additional Assessment/Plan ACS secondary to demand ischemia and sepsis CHF Hypertension Dyslipidemia Diabetes Sepsis Encephalopathy Renal failure Pneumonia Hypoxic respiratory failure Clinically he is confused and lethargic Continue Lasix Avoid Volume Overload Continue Coreg and Norvasc Continue Antibiotics Continue Insulin Continue Prednisone Ammonia level Consultation Date/Type/Reason Admit Date/Time Dec 15, 2016 at 11:20 Psychological: confusion, no complaints Social History Smoking Status: Current every day smoker Exam/Review of Systems Vital Signs Vitals Vital Signs Date Time Temp Pulse Resp B/P Pulse Ox O2 Delivery O2 Flow Rate FiO2 01/06/17 13:24 98 50 01/06/17 08:12 98.5 93 15 144/89 High Flow 01/04/17 15:30 8.0 Intake and Output 01/05/17 01/05/17 01/06/17 15:00 23:00 07:00 Intake Total 930 ml 1008.32 ml 505 ml Output Total 760 ml 640 ml 625 ml Balance 170 ml 368.32 ml -120 ml Exam Constitutional: other (disoriented and lethargic) Head: atraumatic, normocephalic Eyes: EOMI Neck: non-tender, supple Respiratory: clear to auscultation Cardiovascular: regular rate and rhythm Gastrointestinal: nl liver, spleen, non-tender, soft Extremities: normal pulses Results Result Diagram: 01/06/17 0400 01/06/17 0400 Results 24 hrs Laboratory Tests Test 01/05/17 18:04 01/05/17 20:12 01/05/17 20:34 01/06/17 00:25 Bedside Glucose 175 150 135 Sodium Level 142 Potassium Level 3.1 L Chloride Level 104 Carbon Dioxide Level 31 Anion Gap 10 Blood Urea Nitrogen 32 H Creatinine 0.89 Glucose Level 149 Calcium Level 7.6 L Test 01/06/17 04:00 01/06/17 05:41 01/06/17 07:45 01/06/17 12:49 White Blood Count 11.6 H Red Blood Count 3.93 L Hemoglobin 10.9 L Hematocrit 33.3 L Mean Corpuscular Volume 84.7 Mean Corpuscular Hemoglobin 27.7 L Mean Corpuscular Hemoglobin Concent 32.7 Red Cell Distribution Width 13.2 Platelet Count 260 # Mean Platelet Volume 12.3 H Neutrophils % 90.5 H Lymphocytes % 4.7 L Monocytes % 3.9 Eosinophils % 0.5 Basophils % 0.1 Nucleated Red Blood Cells % 0.0 Neutrophils # 10.5 H Lymphocytes # 0.6 L Monocytes # 0.5 Eosinophils # 0.1 Basophils # 0.0 Nucleated Red Blood Cells # 0.0 Sodium Level 143 Potassium Level 3.5 Chloride Level 106 Carbon Dioxide Level 30 Anion Gap 11 Blood Urea Nitrogen 31 H Creatinine 0.97 Glucose Level 143 Calcium Level 7.8 L Phosphorus Level 3.8 Magnesium Level 2.0 Bedside Glucose 140 120 Blood Gas Specimen Source Blood arterial Arterial Blood Date Drawn 01/06/2017 8:20:05 AM Arterial Blood pH (Temp corrected) 7.531 H Arterial Blood pCO2 (Temp correct) 36.1 Arterial Blood pO2 (Temp corrected) 78.0 L Arterial Blood HCO3 29.6 H Arterial Blood Base Excess 6.6 H Arterial Blood Oxygen Saturation 95.2 Leobardo Test ACCEPTAB Arterial Blood Gas Puncture Site Right Radial Arterial Blood Carboxyhemoglobin 0.3 Arterial Blood Methemoglobin 0.4 Blood Gas A-a O2 Differential 310.1 H Oxyhemoglobin Percent 94.5 Total Hemoglobin 10.0 L Blood Gas Temperature 37.0 Blood Gas Modality HFNC FiO2 60.0 Blood Gas Notified Whom AT Blood Gas Notified Time 01/06/2017 8:50:30 AM Medications Medications Current Medications Ondansetron HCl (Zofran Inj) 4 mg Q6H PRN IV NAUSEA AND/OR VOMITING; Start at 13:00 Acetaminophen (Tylenol Tab) 650 mg Q6H PRN PO PAIN LEVEL 1-3 OR FEVER Last administered on 12/29/16 06:02; Admin Dose 650 MG; Start 12/15/16 at 13:00 Acetaminophen/ Hydrocodone Bitart ([place] (5/325)) 1 tab Q6H PRN PO PAIN LEVEL 4 -6 Last administered on 12/15/16 22:08; Admin Dose 1 TAB; Start 12/15/16 at 13: 00 Morphine Sulfate (morphine) 2 mg Q4H PRN IV PAIN LEVEL 7-10 Last administered on 01/06/17 11:46; Admin Dose 2 MG; Start 12/15/16 at 13:00 Magnesium Hydroxide (Milk Of Mag) 30 ml DAILY PRN PO CONSTIPATION Last administered on 01/02/17 02:07; Admin Dose 30 ML; Start 12/15/16 at 13:00 Bisacodyl (Dulcolax) 5 mg DAILY PRN PO CONSTIPATION Last administered on 17:44; Admin Dose 5 MG; Start 12/15/16 at 13:00 Famotidine (Pepcid) 20 mg Q12 PO Last administered on 01/06/17 10:03; Admin Dose 20 MG; Start 12/15/16 at 21:00 Hydralazine HCl (Apresoline) 10 mg Q6H PRN IV SBP>160 Last administered on 01/06 00:18; Admin Dose 10 MG; Start 12/15/16 at 13:00 Aspirin (Aspirin) 325 mg DAILY PO Last administered on 01/06/17 09:57; Admin Dose 325 MG; Start 12/16/16 at 09:00 Atorvastatin Calcium (Lipitor) 80 mg QHS PO Last administered on 01/04/17 21: 18; Admin Dose 80 MG; Start 12/15/16 at 21:00 Heparin Sodium (Porcine) (Heparin (5000 Units/0.5 ml)) 5,000 unit BID SC Last administered on 01/06/17 08:55; Admin Dose 5,000 UNIT; Start 12/15/16 at 21:00 Miscellaneous Information 1 ea NOTE XX ; Start 12/15/16 at 14:00 Glucose (Glutose) 15 gm Q15M PRN PO DECREASED GLUCOSE; Start 12/15/16 at 14:00 Glucose (Glutose) 22.5 gm Q15M PRN PO DECREASED GLUCOSE; Start 12/15/16 at 14: 00 Glucagon (Glucagen) 1 mg Q15M PRN IM DECREASED GLUCOSE; Start 12/15/16 at 14:00 Glucose (Glutose) 15 gm Q15M PRN BUCCAL DECREASED GLUCOSE; Start 12/15/16 at 14 :00 Cholecalciferol 1000 unit 1,000 unit DAILY PO Last administered on 01/06/17 10 :02; Admin Dose 1,000 UNIT; Start 12/16/16 at 09:00 Fentanyl (Sublimaze) 100 ml @ 2.5 mls/hr TITRATE IV Last administered on 01:42; Admin Dose 10 MLS/HR; Start 12/18/16 at 03:30 Dextrose (D50w Syringe) 25 ml Q15M PRN IV Till BS 80 mg/dL or above x2 Last administered on 01/04/17 20:11; Admin Dose 25 ML; Start 12/18/16 at 14:00 Dextrose (D50w Syringe) 50 ml Q15M PRN IV Till BS 80 mg/dL or above x2; Start 12/18/16 at 14:00 IV Flush 10 ml 10 ml PRN PRN IV IV PROTOCOL; Start 12/18/16 at 17:00 Norepinephrine/ Dextrose (Levophed/D5W) 250 ml @ 0.46 mls/hr TITRATE IV ; Start 12/19/16 at 09:30 Amlodipine Besylate 5 mg 5 mg DAILY PO Last administered on 01/06/17 10:02; Admin Dose 5 MG; Start 12/21/16 at 09:00 Midazolam HCl 50 ml @ 1 mls/hr TITRATE IV Last administered on 01/04/17 03:02 ; Admin Dose 10 MLS/HR; Start 12/20/16 at 14:00 Propofol (Diprivan) 100 ml @ 3.255 mls/ hr Q12H IV Last administered on 05:21; Admin Dose 13.02 MLS/HR; Start 12/20/16 at 20:30 Hydralazine HCl 10 mg 10 mg Q4H PRN IV sbp > 160 Last administered on 11:46; Admin Dose 10 MG; Start 12/22/16 at 06:30 Meropenem 100 ml @ 200 mls/hr Q12 IVPB Last administered on 01/06/17 08:47; Admin Dose 200 MLS/HR; Start 12/28/16 at 13:00; Status Future Hold Caspofungin/ Sodium Chloride (Cancidas/NS) 250 ml @ 250 mls/hr Q24H IVPB Last administered on 01/06/17 12:46; Admin Dose 250 MLS/HR; Start 12/29/16 at 12:00 Insulin Glargine (Lantus) 52 unit DAILY@20 SC Last administered on 01/05/17 20 :16; Admin Dose 52 UNIT; Start 12/31/16 at 20:00 Hydralazine HCl 100 mg 100 mg Q8 PO Last administered on 01/05/17 05:30; Admin Dose 100 MG; Start 01/01/17 at 14:00 Vancomycin HCl/ Sodium Chloride (Vancocin/NS) 250 ml @ 83.333 mls/ hr Q24H IVPB Last administered on 01/05/17 17:55; Admin Dose 83.333 MLS/HR; Start 01/01 at 17:00 Spironolactone (Aldactone) 25 mg DAILY PO Last administered on 01/06/17 10:02 ; Admin Dose 25 MG; Start 01/03/17 at 09:00 Insulin Aspart (Novolog Insulin Pen) NOVOLOG *MILD* ALGORI... Q6 SC Last administered on 01/05/17 18:07; Admin Dose 1 UNIT; Start 01/05/17 at 00:00 Carvedilol (Coreg) 12.5 mg BID PO Last administered on 01/06/17 09:57; Admin Dose 12.5 MG; Start 01/04/17 at 21:00 Metoprolol Tartrate 5 mg 5 mg Q4H PRN IV HR>110 Last administered on 01/04/17 21:56; Admin Dose 5 MG; Start 01/04/17 at 19:30 Potassium Chloride/Dextrose (D5W + KCl 20 Meq) 1,000 ml @ 75 mls/hr [id number] IV Last administered on 01/06/17 03:51; Admin Dose 75 MLS/HR; Start 01/05/17 at 08:00 Clonidine HCl (Catapres-Tts 2 Patch) 1 patch Q7D TRANSDERM Last administered on 01/05/17 12:55; Admin Dose 1 PATCH; Start 01/05/17 at 12:00 Prednisone (Prednisone) 20 mg DAILY PO ; Start 01/07/17 at 09:00 Haloperidol (Haldol) 5 mg Q6H PRN IV AGITATION Last administered on 01/06/17 13:10; Admin Dose 5 MG; Start 01/06/17 at 13:00 NIDA GALLO M.D. January 06, 2017 13:36
[2017-01-06] MEDS: LEVOFLOXACIN 500MG/D5W (PMX) 100 ML IVPB SCH (15:59)
--- NOTE | 2017-01-06 17:59 | PN ---
DATE: 01/06/2017 SUBJECTIVE: The patient is more confused, lying comfortably in bed. He is on high flow oxygen, afe brile. WBC today 11.6, platelets 360, neutrophils 90.5, BUN 31, creatinine 0.97. DIAGNOSTICS: Chest x-ray this morning revealed no evidence of acute cardiopulmonary process. INDWELLINGS: PICC line, Ritchie. PHYSICAL EXAMINATION: GENERAL: Obese, well-developed, middle-aged man who is awake, confused, in no distress. HEENT: Head atraumatic, normocephalic. Sclerae anicteric. Buccal mucosa dry. NECK: Supple. CHEST: Rise symmetrical. Breath sounds with scattered crackles. HEART: S1, S2. ABDOMEN: Soft, bowel tones present. EXTREMITIES: Without cyanosis. Bilateral trace edema. ASSESSMENT: 1. Acute respiratory failure. 2. Pneumonia. 3. Diabetes. 4. Morbid obesity. 5. Encephalopathy. 6. Status post urinary tract infection and acute kidney injury. PLAN: The patient remains stable. We are going to change antibiotics to Levaquin to complete treat ment for pneumonia. Continue anti-aspiration measures. Follow recommendations of consultants. Dictated By: YOLETTE RODRIGUEZ T[employer] TENDER for [facility]AN[facility] ROSE/SUNDEEP Conf#: [id number] DID#: [id number]
[2017-01-06] MEDS: ATORVASTATIN 80 MG TAB PO SCH (21:05)
[2017-01-06] MEDS: INSULIN GLARGINE [LANtus] 3 ML PEN SC SCH (21:13)
[2017-01-07] VITALS (20 sets, daily range): BP systolic 122–169; BP diastolic 52–121; PULSE 66–94; RESP 12–24
[2017-01-07] MEDS: morphine 2 MG INJ IV PRN ×2 (04:10→20:10)
[2017-01-07] MEDS: INSULIN ASPART [NOVOLOG] 3 ML PEN SC SCH ×5 (06:00→21:00)
[2017-01-07] MEDS: FUROSEMIDE 20 MG INJ IV SCH ×2 (06:04→18:42)
[2017-01-07 06:14] LABS: ADD SCAN DIFF NO
[2017-01-07 06:28] LABS: EOSINOPHILS # 0.5 10^3/ul (0.0-0.5); HEMATOCRIT 30.5 % (42.0-52.0); HEMOGLOBIN 9.8 g/dl (14.0-18.0); LYMPHOCYTES # 1.2 10^3/ul (0.8-2.9); LYMPHOCYTES % 13.1 % (15.0-51.0); MEAN CORPUSCULAR HEMOGLOBIN 27.3 pg (29.0-33.0); MEAN CORPUSCULAR HGB CONC 32.1 g/dl (32.0-37.0); MEAN PLATELET VOLUME 10.7 fl (7.4-10.4); MONOCYTE # 0.6 10^3/ul (0.3-0.9); NEUTROPHIL # 6.7 10^3/ul (1.6-7.5); NEUTROPHILS % 74.3 % (39.0-77.0); PLATELET COUNT 215 10^3/UL (140-415); RED BLOOD COUNT 3.59 10^6/ul (4.70-6.10); RED CELL DISTRIBUTION WIDTH 13.3 % (11.5-14.5)
[2017-01-07 07:02] LABS: CREATININE 0.95 mg/dl (0.61-1.24); POTASSIUM 3.1 mmol/L (3.5-5.1)
[2017-01-07] MEDS: PROPOFOL 100 ML IV SCH (07:48)
[2017-01-07] MEDS: SPIRONOLACTONE 25 MG TAB PO SCH (08:08)
[2017-01-07] MEDS: predniSONE 20 MG TAB PO SCH (08:08)
[2017-01-07] MEDS: FAMOTIDINE 20 MG TAB PO SCH ×2 (08:08→21:35)
[2017-01-07] MEDS: SEVELAMER CARBONATE 0.8 GM PKT PO SCH ×3 (08:09→18:42)
[2017-01-07] MEDS: CHOLECALCIFEROL 1,000 UNIT TAB PO SCH (08:09)
[2017-01-07] MEDS: ASPIRIN 325 MG TAB PO SCH (08:09)
[2017-01-07] MEDS: AMLODIPINE 5 MG TAB PO SCH (08:09)
[2017-01-07] MEDS: HEPARIN 5,000 UNIT/0.5 ML VIAL SC SCH ×2 (08:10→21:43)
[2017-01-07] MEDS ORDERED: predniSONE 20 MG TAB PO SCH ×2 (09:00)
--- NOTE | 2017-01-07 09:54 | PN ---
Date/Time of Note Date/Time of Note DATE: 01/07/17 TIME: 09:51 Assessment/Plan VTE Prophylaxis VTE Prophylaxis Intervention: heparin Lines/Catheters IV [facility] PICC Line Central line still needed: Yes Urinary Cath still in place: Yes Reason Cath still needed: urinary retention Assessment/Plan Chief Complaint/Hosp Course A/P: 41 M with: 1. Sepsis secondary to underlying community-acquired pneumonia with septic shock - resolved now. Currently off pressors. On ABX as per ID - now Levaquin. Mycoplasma serology abnormal. 2. Acute hypoxic respiratory failure. Most probably secondary to underlying pneumonia versus others. Patient got intubated on 12/18/2016, extubated on . Continue inhaled bronchodilators. Pulmonology following the patient. 3. Elevated troponins. Most probably a type 2 event from underlying sepsis and underlying acute kidney injury. Cardiology following. 4. Acute kidney injury. The patient had a normal creatinine of 1.00 on 2015. The patient's current acute kidney injury could be most probably secondary to dehydration from persistent vomiting - improving now. The patient' s nephrotoxic drugs will be held at this time. Being followed by nephrology. 5. Type 2 diabetes mellitus. Uncontrolled. A1C is high (send out). The patient will be maintained on sliding scale insulin along with basal insulin. 6. Dyslipidemia. Continue statins. 7. Essential hypertension. Continue antihypertensives. 8. Hypocalcemia. Probably secondary to underlying hypoalbuminemia. 9. Microcytic, hypochromic anemia. Etiology unclear. Iron panel showing iron deficiency. Continue iron supplements. 10. Vitamin D deficiency. Continue supplements. 11. Fluids, electrolytes, and nutrition. Tube feedings. 12. DVT prophylaxis. Subcutaneous heparin. 13. Gastrointestinal prophylaxis. Histamine 2 receptor blockers. 14. Plan. Continue antibiotics. Continue ventilator support. Ventilator weaning as per Pulmonary. Adjust insulin to obtain optimal blood sugar control. 15. Positive DAISY with unclear clinical significance. Continue to monitor ,f/u rheum rec's. Taper down steroids. Critical care time: 40 minutes. Problems: Subjective 24 Hr Interval Summary Free Text/Dictation Pt less agitated, more alert. Exam/Review of Systems Vital Signs Vitals Vital Signs Date Time Temp Pulse Resp B/P Pulse Ox O2 Delivery O2 Flow Rate FiO2 01/07/17 08:00 97.9 81 18 122/77 95 Nasal Cannula 01/07/17 04:15 4.0 01/07/17 04:02 33 Intake and Output 01/06/17 01/06/17 01/07/17 15:00 23:00 07:00 Intake Total 745 ml 575 ml 525 ml Output Total 390 ml 575 ml 560 ml Balance 355 ml 0 ml -35 ml Exam GENERAL: This is a morbidly obese male lying in bed, more alert HEENT: Head normocephalic and atraumatic. Eyes: Anicteric sclerae. Conjunctivae clear. ENT: Nasal septum is midline. Oral mucosa is dry. NECK: Short with increased neck circumference. RESPIRATORY: less diminished breath sounds. On mechanical ventilator. CARDIAC: Regular rate and rhythm. S1, S2 heard. ABDOMEN: Soft, nontender and nondistended. Bowel sounds positive in all 4 quadrants. EXTREMITIES: No cyanosis, no clubbing. B/L LE edema. Pedal pulses palpable. Status post left great toe amputation. NEUROLOGIC: no focal deficits Results Result Diagram: 01/07/1760401/07/17604 Results 24 hrs Laboratory Tests Test 01/06/17 11:42 01/06/17 12:49 01/06/17 14:10 01/06/17 18:19 Ammonia < 9 L < 9 L Bedside Glucose 120 130 Test 01/06/17 21:09 01/06/17 23:55 01/07/17 06:05 01/07/17 06:09 Bedside Glucose 116 115 79 White Blood Count 9.0 # Red Blood Count 3.59 L Hemoglobin 9.8 L Hematocrit 30.5 L Mean Corpuscular Volume 85.0 Mean Corpuscular Hemoglobin 27.3 L Mean Corpuscular Hemoglobin Concent 32.1 Red Cell Distribution Width 13.3 Platelet Count 215 Mean Platelet Volume 10.7 H Neutrophils % 74.3 Lymphocytes % 13.1 L Monocytes % 7.0 Eosinophils % 5.0 Basophils % 0.0 Nucleated Red Blood Cells % 0.0 Neutrophils # 6.7 Lymphocytes # 1.2 Monocytes # 0.6 Eosinophils # 0.5 Basophils # 0.0 Nucleated Red Blood Cells # 0.0 Sodium Level 139 Potassium Level 3.1 L Chloride Level 109 Carbon Dioxide Level 32 H Anion Gap 1 #L Blood Urea Nitrogen 29 H Creatinine 0.95 Glucose Level 82 # Calcium Level 8.0 L Medications Medications Current Medications Ondansetron HCl (Zofran Inj) 4 mg Q6H PRN IV NAUSEA AND/OR VOMITING; Start at 13:00 Acetaminophen (Tylenol Tab) 650 mg Q6H PRN PO PAIN LEVEL 1-3 OR FEVER Last administered on 12/29/16 06:02; Admin Dose 650 MG; Start 12/15/16 at 13:00 Acetaminophen/ Hydrocodone Bitart ([place] (5/325)) 1 tab Q6H PRN PO PAIN LEVEL 4 -6 Last administered on 12/15/16 22:08; Admin Dose 1 TAB; Start 12/15/16 at 13: 00 Morphine Sulfate (morphine) 2 mg Q4H PRN IV PAIN LEVEL 7-10 Last administered on 01/07/17 04:10; Admin Dose 2 MG; Start 12/15/16 at 13:00 Magnesium Hydroxide (Milk Of Mag) 30 ml DAILY PRN PO CONSTIPATION Last administered on 01/02/17 02:07; Admin Dose 30 ML; Start 12/15/16 at 13:00 Bisacodyl (Dulcolax) 5 mg DAILY PRN PO CONSTIPATION Last administered on 17:44; Admin Dose 5 MG; Start 12/15/16 at 13:00 Famotidine (Pepcid) 20 mg Q12 PO Last administered on 01/07/17 08:08; Admin Dose 20 MG; Start 12/15/16 at 21:00 Hydralazine HCl (Apresoline) 10 mg Q6H PRN IV SBP>160 Last administered on 01/06 00:18; Admin Dose 10 MG; Start 12/15/16 at 13:00 Aspirin (Aspirin) 325 mg DAILY PO Last administered on 01/07/17 08:09; Admin Dose 325 MG; Start 12/16/16 at 09:00 Atorvastatin Calcium (Lipitor) 80 mg QHS PO Last administered on 01/06/17 21: 05; Admin Dose 80 MG; Start 12/15/16 at 21:00 Heparin Sodium (Porcine) (Heparin (5000 Units/0.5 ml)) 5,000 unit BID SC Last administered on 01/07/17 08:10; Admin Dose 5,000 UNIT; Start 12/15/16 at 21:00 Miscellaneous Information 1 ea NOTE XX ; Start 12/15/16 at 14:00 Glucose (Glutose) 15 gm Q15M PRN PO DECREASED GLUCOSE; Start 12/15/16 at 14:00 Glucose (Glutose) 22.5 gm Q15M PRN PO DECREASED GLUCOSE; Start 12/15/16 at 14: 00 Glucagon (Glucagen) 1 mg Q15M PRN IM DECREASED GLUCOSE; Start 12/15/16 at 14:00 Glucose (Glutose) 15 gm Q15M PRN BUCCAL DECREASED GLUCOSE; Start 12/15/16 at 14 :00 Cholecalciferol 1000 unit 1,000 unit DAILY PO Last administered on 01/07/17 08 :09; Admin Dose 1,000 UNIT; Start 12/16/16 at 09:00 Fentanyl (Sublimaze) 100 ml @ 2.5 mls/hr TITRATE IV Last administered on 01:42; Admin Dose 10 MLS/HR; Start 12/18/16 at 03:30 Dextrose (D50w Syringe) 25 ml Q15M PRN IV Till BS 80 mg/dL or above x2 Last administered on 01/04/17 20:11; Admin Dose 25 ML; Start 12/18/16 at 14:00 Dextrose (D50w Syringe) 50 ml Q15M PRN IV Till BS 80 mg/dL or above x2; Start 12/18/16 at 14:00 IV Flush 10 ml 10 ml PRN PRN IV IV PROTOCOL; Start 12/18/16 at 17:00 Norepinephrine/ Dextrose (Levophed/D5W) 250 ml @ 0.46 mls/hr TITRATE IV ; Start 12/19/16 at 09:30 Amlodipine Besylate 5 mg 5 mg DAILY PO Last administered on 01/07/17 08:09; Admin Dose 5 MG; Start 12/21/16 at 09:00 Midazolam HCl 50 ml @ 1 mls/hr TITRATE IV Last administered on 01/04/17 03:02 ; Admin Dose 10 MLS/HR; Start 12/20/16 at 14:00 Propofol (Diprivan) 100 ml @ 3.255 mls/ hr Q12H IV Last administered on 05:21; Admin Dose 13.02 MLS/HR; Start 12/20/16 at 20:30 Hydralazine HCl (Apresoline) 10 mg Q4H PRN IV sbp > 160 Last administered on 11:46; Admin Dose 10 MG; Start 12/22/16 at 06:30 Insulin Glargine (Lantus) 52 unit DAILY@20 SC Last administered on 01/06/17 21 :13; Admin Dose 52 UNIT; Start 12/31/16 at 20:00 Hydralazine HCl (Apresoline) 100 mg Q8 PO Last administered on 01/07/17 06:03 ; Admin Dose 100 MG; Start 01/01/17 at 14:00 Spironolactone (Aldactone) 25 mg DAILY PO Last administered on 01/07/17 08:08 ; Admin Dose 25 MG; Start 01/03/17 at 09:00 Insulin Aspart (Novolog Insulin Pen) NOVOLOG *MILD* ALGORI... Q6 SC Last administered on 01/05/17 18:07; Admin Dose 1 UNIT; Start 01/05/17 at 00:00 Carvedilol (Coreg) 12.5 mg BID PO Last administered on 01/07/17 08:09; Admin Dose 12.5 MG; Start 01/04/17 at 21:00 Metoprolol Tartrate 5 mg 5 mg Q4H PRN IV HR>110 Last administered on 01/04/17 21:56; Admin Dose 5 MG; Start 01/04/17 at 19:30 Potassium Chloride/Dextrose (D5W + KCl 20 Meq) 1,000 ml @ 75 mls/hr [id number] IV Last administered on 01/06/17 21:04; Admin Dose 75 MLS/HR; Start 01/05/17 at 08:00 Clonidine HCl (Catapres-Tts 2 Patch) 1 patch Q7D TRANSDERM Last administered on 01/05/17 12:55; Admin Dose 1 PATCH; Start 01/05/17 at 12:00 Prednisone (Prednisone) 20 mg DAILY PO Last administered on 01/07/17 08:08; Admin Dose 20 MG; Start 01/07/17 at 09:00 Haloperidol 5 mg 5 mg Q6H PRN IV AGITATION Last administered on 01/06/17 21:49 ; Admin Dose 5 MG; Start 01/06/17 at 13:00 Levofloxacin/ Dextrose 100 ml @ 100 mls/hr Q24H IVPB Last administered on 01/06t 15:59; Admin Dose 100 MLS/HR; Start 01/06/17 at 15:00 Potassium Chloride (KCl 40 MEQ/250 ML NS) 250 ml @ 62.5 mls/hr Q4H IVPB ; Start 01/07/17 at 10:00; Stop 01/07/17 at 17:59; Status [place] [facility] January 07, 2017 09:54
[2017-01-07] MEDS: POTASSIUM CHLORIDE 250 ML IVPB SCH ×2 (10:37→16:04)
[2017-01-07] MEDS: D5W + KCL 20 MEQ 1,000 ML IV SCH (11:13)
--- NOTE | 2017-01-07 12:06 | CONS ---
Date/Time of Note Date/Time of Note DATE: 01/07/17 TIME: 11:58 Consult Date/Type/Reason Admit Date/Time Dec 15, 2016 at 11:20 Type of Consultation: Pulm Ordering Provider: LEXII REED Subjective Better, less confused. Objective Vital Signs Date Time Temp Pulse Resp B/P Pulse Ox O2 Delivery O2 Flow Rate FiO2 01/07/17 11:00 72 24 123/68 95 Nasal Cannula 01/07/17 08:00 97.9 01/07/17 04:15 4.0 01/07/17 04:02 33 Intake and Output 01/06/17 01/06/17 01/07/17 15:00 23:00 07:00 Intake Total 745 ml 575 ml 600 ml Output Total 390 ml 575 ml 560 ml Balance 355 ml 0 ml 40 ml Exam HEENT: Neck supple; no JVD; no LAD CVS: RRR, S1 and S2 CHEST: Clear ABD: Soft, NT, + BS EXT: No c/c/ + edema Results/Medications Result Diagram: 01/07/1760401/07/17 06 Results 24 hrs Laboratory Tests Test 01/06/17 12:49 01/06/17 14:10 01/06/17 18:19 01/06/17 21:09 Bedside Glucose 120 130 116 Ammonia < 9 L Test 01/06/17 23:55 01/07/17 06:05 01/07/17 06:09 Bedside Glucose 115 79 White Blood Count 9.0 # Red Blood Count 3.59 L Hemoglobin 9.8 L Hematocrit 30.5 L Mean Corpuscular Volume 85.0 Mean Corpuscular Hemoglobin 27.3 L Mean Corpuscular Hemoglobin Concent 32.1 Red Cell Distribution Width 13.3 Platelet Count 215 Mean Platelet Volume 10.7 H Neutrophils % 74.3 Lymphocytes % 13.1 L Monocytes % 7.0 Eosinophils % 5.0 Basophils % 0.0 Nucleated Red Blood Cells % 0.0 Neutrophils # 6.7 Lymphocytes # 1.2 Monocytes # 0.6 Eosinophils # 0.5 Basophils # 0.0 Nucleated Red Blood Cells # 0.0 Sodium Level 139 Potassium Level 3.1 L Chloride Level 109 Carbon Dioxide Level 32 H Anion Gap 1 #L Blood Urea Nitrogen 29 H Creatinine 0.95 Glucose Level 82 # Calcium Level 8.0 L Medications Current Medications Ondansetron HCl (Zofran Inj) 4 mg Q6H PRN IV NAUSEA AND/OR VOMITING; Start at 13:00 Acetaminophen (Tylenol Tab) 650 mg Q6H PRN PO PAIN LEVEL 1-3 OR FEVER Last administered on 12/29/16 06:02; Admin Dose 650 MG; Start 12/15/16 at 13:00 Acetaminophen/ Hydrocodone Bitart ([place] (5/325)) 1 tab Q6H PRN PO PAIN LEVEL 4 -6 Last administered on 12/15/16 22:08; Admin Dose 1 TAB; Start 12/15/16 at 13: 00 Morphine Sulfate (morphine) 2 mg Q4H PRN IV PAIN LEVEL 7-10 Last administered on 01/07/17 04:10; Admin Dose 2 MG; Start 12/15/16 at 13:00 Magnesium Hydroxide (Milk Of Mag) 30 ml DAILY PRN PO CONSTIPATION Last administered on 01/02/17 02:07; Admin Dose 30 ML; Start 12/15/16 at 13:00 Bisacodyl (Dulcolax) 5 mg DAILY PRN PO CONSTIPATION Last administered on 17:44; Admin Dose 5 MG; Start 12/15/16 at 13:00 Famotidine (Pepcid) 20 mg Q12 PO Last administered on 01/07/17 08:08; Admin Dose 20 MG; Start 12/15/16 at 21:00 Hydralazine HCl (Apresoline) 10 mg Q6H PRN IV SBP>160 Last administered on 01/06 00:18; Admin Dose 10 MG; Start 12/15/16 at 13:00 Aspirin (Aspirin) 325 mg DAILY PO Last administered on 01/07/17 08:09; Admin Dose 325 MG; Start 12/16/16 at 09:00 Atorvastatin Calcium (Lipitor) 80 mg QHS PO Last administered on 01/06/17 21: 05; Admin Dose 80 MG; Start 12/15/16 at 21:00 Heparin Sodium (Porcine) (Heparin (5000 Units/0.5 ml)) 5,000 unit BID SC Last administered on 01/07/17 08:10; Admin Dose 5,000 UNIT; Start 12/15/16 at 21:00 Miscellaneous Information 1 ea NOTE XX ; Start 12/15/16 at 14:00 Glucose (Glutose) 15 gm Q15M PRN PO DECREASED GLUCOSE; Start 12/15/16 at 14:00 Glucose (Glutose) 22.5 gm Q15M PRN PO DECREASED GLUCOSE; Start 12/15/16 at 14: 00 Glucagon (Glucagen) 1 mg Q15M PRN IM DECREASED GLUCOSE; Start 12/15/16 at 14:00 Glucose (Glutose) 15 gm Q15M PRN BUCCAL DECREASED GLUCOSE; Start 12/15/16 at 14 :00 Cholecalciferol 1000 unit 1,000 unit DAILY PO Last administered on 01/07/17 08 :09; Admin Dose 1,000 UNIT; Start 12/16/16 at 09:00 Fentanyl (Sublimaze) 100 ml @ 2.5 mls/hr TITRATE IV Last administered on 01:42; Admin Dose 10 MLS/HR; Start 12/18/16 at 03:30 Dextrose (D50w Syringe) 25 ml Q15M PRN IV Till BS 80 mg/dL or above x2 Last administered on 01/04/17 20:11; Admin Dose 25 ML; Start 12/18/16 at 14:00 Dextrose (D50w Syringe) 50 ml Q15M PRN IV Till BS 80 mg/dL or above x2; Start 12/18/16 at 14:00 IV Flush 10 ml 10 ml PRN PRN IV IV PROTOCOL; Start 12/18/16 at 17:00 Norepinephrine/ Dextrose (Levophed/D5W) 250 ml @ 0.46 mls/hr TITRATE IV ; Start 12/19/16 at 09:30 Amlodipine Besylate 5 mg 5 mg DAILY PO Last administered on 01/07/17 08:09; Admin Dose 5 MG; Start 12/21/16 at 09:00 Midazolam HCl 50 ml @ 1 mls/hr TITRATE IV Last administered on 01/04/17 03:02 ; Admin Dose 10 MLS/HR; Start 12/20/16 at 14:00 Propofol (Diprivan) 100 ml @ 3.255 mls/ hr Q12H IV Last administered on 05:21; Admin Dose 13.02 MLS/HR; Start 12/20/16 at 20:30 Hydralazine HCl (Apresoline) 10 mg Q4H PRN IV sbp > 160 Last administered on 11:46; Admin Dose 10 MG; Start 12/22/16 at 06:30 Insulin Glargine (Lantus) 52 unit DAILY@20 SC Last administered on 01/06/17 21 :13; Admin Dose 52 UNIT; Start 12/31/16 at 20:00 Hydralazine HCl (Apresoline) 100 mg Q8 PO Last administered on 01/07/17 06:03 ; Admin Dose 100 MG; Start 01/01/17 at 14:00 Spironolactone (Aldactone) 25 mg DAILY PO Last administered on 01/07/17 08:08 ; Admin Dose 25 MG; Start 01/03/17 at 09:00 Insulin Aspart (Novolog Insulin Pen) NOVOLOG *MILD* ALGORI... Q6 SC Last administered on 01/05/17 18:07; Admin Dose 1 UNIT; Start 01/05/17 at 00:00 Carvedilol (Coreg) 12.5 mg BID PO Last administered on 01/07/17 08:09; Admin Dose 12.5 MG; Start 01/04/17 at 21:00 Metoprolol Tartrate 5 mg 5 mg Q4H PRN IV HR>110 Last administered on 01/04/17 21:56; Admin Dose 5 MG; Start 01/04/17 at 19:30 Potassium Chloride/Dextrose (D5W + KCl 20 Meq) 1,000 ml @ 75 mls/hr [id number] IV Last administered on 01/07/17 11:13; Admin Dose 75 MLS/HR; Start 01/05/17 at 08:00 Clonidine HCl (Catapres-Tts 2 Patch) 1 patch Q7D TRANSDERM Last administered on 01/05/17 12:55; Admin Dose 1 PATCH; Start 01/05/17 at 12:00 Prednisone (Prednisone) 20 mg DAILY PO Last administered on 01/07/17 08:08; Admin Dose 20 MG; Start 01/07/17 at 09:00 Haloperidol 5 mg 5 mg Q6H PRN IV AGITATION Last administered on 01/06/17 21:49 ; Admin Dose 5 MG; Start 01/06/17 at 13:00 Levofloxacin/ Dextrose 100 ml @ 100 mls/hr Q24H IVPB Last administered on 01/06 15:59; Admin Dose 100 MLS/HR; Start 01/06/17 at 15:00 Potassium Chloride (KCl 40 MEQ/250 ML NS) 250 ml @ 62.5 mls/hr Q4H IVPB Last administered on 01/07/17 10:37; Admin Dose 62.5 MLS/HR; Start 01/07/17 at 10:00 ; Stop 01/07/17 at 17:59 Assessment/Plan Additional Assessment/Plan IMP: 1. Acute hypoxemic respiratory failure likely due to mycoplasma pneumonia--now improved 2. Workup for vasculitis will decrease steroids. Appreciate rheumatology recommendations. 3. Diabetes mellitus 4. Renal insufficiency possible ATN injury improved RECS 1. Continue haldol prn; avoid benzo's 2. Decrease FiO2 as tolerated 3. Taper CS 4. De-escalate abx FELICITY HAYS MD January 07, 2017 12:05
--- NOTE | 2017-01-07 13:26 | CONS ---
Date/Time of Note Date/Time of Note DATE: 01/07/17 TIME: 13:23 Assessment/Plan Assessment/Plan Additional Assessment/Plan ACS secondary to demand ischemia and sepsis CHF Hypertension Dyslipidemia Diabetes Sepsis Encephalopathy Renal failure - resolved Pneumonia Hypoxic respiratory failure Hemodynamically Stable Continue Lasix Avoid Volume Overload Continue Coreg and Norvasc Continue ASA Continue Antibiotics Continue Insulin Continue Prednisone Discontinued Aldactone Consultation Date/Type/Reason Admit Date/Time Dec 15, 2016 at 11:20 Initial Consult Date Type of Consultation: Pulm Referring Provider: LEXII REED Exam/Review of Systems Vital Signs Vitals Vital Signs Date Time Temp Pulse Resp B/P Pulse Ox O2 Delivery O2 Flow Rate FiO2 01/07/17 12:00 88 01/07/17 11:00 24 123/68 95 Nasal Cannula 01/07/17 08:00 4.0 01/07/17 08:00 97.9 01/07/17 04:02 33 Intake and Output 01/06/17 01/06/17 01/07/17 15:00 23:00 07:00 Intake Total 745 ml 575 ml 600 ml Output Total 390 ml 575 ml 560 ml Balance 355 ml 0 ml 40 ml Exam Constitutional: Awake and alert but lethargic Head: atraumatic, normocephalic Eyes: EOMI Neck: non-tender, supple Respiratory: clear to auscultation Cardiovascular: regular rate and rhythm Gastrointestinal: nl liver, spleen, non-tender, soft Extremities: normal pulses Results Result Diagram: 01/07/17 0605 01/07/17 0605 Results 24 hrs Laboratory Tests Test 01/06/17 14:10 01/06/17 18:19 01/06/17 21:09 01/06/17 23:55 Ammonia < 9 L Bedside Glucose 130 116 115 Test 01/07/17 06:05 01/07/17 06:09 01/07/17 12:05 White Blood Count 9.0 # Red Blood Count 3.59 L Hemoglobin 9.8 L Hematocrit 30.5 L Mean Corpuscular Volume 85.0 Mean Corpuscular Hemoglobin 27.3 L Mean Corpuscular Hemoglobin Concent 32.1 Red Cell Distribution Width 13.3 Platelet Count 215 Mean Platelet Volume 10.7 H Neutrophils % 74.3 Lymphocytes % 13.1 L Monocytes % 7.0 Eosinophils % 5.0 Basophils % 0.0 Nucleated Red Blood Cells % 0.0 Neutrophils # 6.7 Lymphocytes # 1.2 Monocytes # 0.6 Eosinophils # 0.5 Basophils # 0.0 Nucleated Red Blood Cells # 0.0 Sodium Level 139 Potassium Level 3.1 L Chloride Level 109 Carbon Dioxide Level 32 H Anion Gap 1 #L Blood Urea Nitrogen 29 H Creatinine 0.95 Glucose Level 82 # Calcium Level 8.0 L Bedside Glucose 79 83 Medications Medications Current Medications Ondansetron HCl (Zofran Inj) 4 mg Q6H PRN IV NAUSEA AND/OR VOMITING; Start at 13:00 Acetaminophen (Tylenol Tab) 650 mg Q6H PRN PO PAIN LEVEL 1-3 OR FEVER Last administered on 12/29/16 06:02; Admin Dose 650 MG; Start 12/15/16 at 13:00 Acetaminophen/ Hydrocodone Bitart ([place] (5/325)) 1 tab Q6H PRN PO PAIN LEVEL 4 -6 Last administered on 12/15/16 22:08; Admin Dose 1 TAB; Start 12/15/16 at 13: 00 Morphine Sulfate (morphine) 2 mg Q4H PRN IV PAIN LEVEL 7-10 Last administered on 01/07/17 04:10; Admin Dose 2 MG; Start 12/15/16 at 13:00 Magnesium Hydroxide (Milk Of Mag) 30 ml DAILY PRN PO CONSTIPATION Last administered on 01/02/17 02:07; Admin Dose 30 ML; Start 12/15/16 at 13:00 Bisacodyl (Dulcolax) 5 mg DAILY PRN PO CONSTIPATION Last administered on 17:44; Admin Dose 5 MG; Start 12/15/16 at 13:00 Famotidine (Pepcid) 20 mg Q12 PO Last administered on 01/07/17 08:08; Admin Dose 20 MG; Start 12/15/16 at 21:00 Hydralazine HCl (Apresoline) 10 mg Q6H PRN IV SBP>160 Last administered on 01/06 00:18; Admin Dose 10 MG; Start 12/15/16 at 13:00 Aspirin (Aspirin) 325 mg DAILY PO Last administered on 01/07/17 08:09; Admin Dose 325 MG; Start 12/16/16 at 09:00 Atorvastatin Calcium (Lipitor) 80 mg QHS PO Last administered on 01/06/17 21: 05; Admin Dose 80 MG; Start 12/15/16 at 21:00 Heparin Sodium (Porcine) (Heparin (5000 Units/0.5 ml)) 5,000 unit BID SC Last administered on 01/07/17 08:10; Admin Dose 5,000 UNIT; Start 12/15/16 at 21:00 Miscellaneous Information 1 ea NOTE XX ; Start 12/15/16 at 14:00 Glucose (Glutose) 15 gm Q15M PRN PO DECREASED GLUCOSE; Start 12/15/16 at 14:00 Glucose (Glutose) 22.5 gm Q15M PRN PO DECREASED GLUCOSE; Start 12/15/16 at 14: 00 Glucagon (Glucagen) 1 mg Q15M PRN IM DECREASED GLUCOSE; Start 12/15/16 at 14:00 Glucose (Glutose) 15 gm Q15M PRN BUCCAL DECREASED GLUCOSE; Start 12/15/16 at 14 :00 Cholecalciferol 1000 unit 1,000 unit DAILY PO Last administered on 01/07/17 08 :09; Admin Dose 1,000 UNIT; Start 12/16/16 at 09:00 Fentanyl (Sublimaze) 100 ml @ 2.5 mls/hr TITRATE IV Last administered on 01:42; Admin Dose 10 MLS/HR; Start 12/18/16 at 03:30 Dextrose (D50w Syringe) 25 ml Q15M PRN IV Till BS 80 mg/dL or above x2 Last administered on 01/04/17 20:11; Admin Dose 25 ML; Start 12/18/16 at 14:00 Dextrose (D50w Syringe) 50 ml Q15M PRN IV Till BS 80 mg/dL or above x2; Start 12/18/16 at 14:00 IV Flush 10 ml 10 ml PRN PRN IV IV PROTOCOL; Start 12/18/16 at 17:00 Norepinephrine/ Dextrose (Levophed/D5W) 250 ml @ 0.46 mls/hr TITRATE IV ; Start 12/19/16 at 09:30 Amlodipine Besylate 5 mg 5 mg DAILY PO Last administered on 01/07/17 08:09; Admin Dose 5 MG; Start 12/21/16 at 09:00 Midazolam HCl 50 ml @ 1 mls/hr TITRATE IV Last administered on 01/04/17 03:02 ; Admin Dose 10 MLS/HR; Start 12/20/16 at 14:00 Propofol (Diprivan) 100 ml @ 3.255 mls/ hr Q12H IV Last administered on 05:21; Admin Dose 13.02 MLS/HR; Start 12/20/16 at 20:30 Hydralazine HCl (Apresoline) 10 mg Q4H PRN IV sbp > 160 Last administered on 11:46; Admin Dose 10 MG; Start 12/22/16 at 06:30 Insulin Glargine (Lantus) 52 unit DAILY@20 SC Last administered on 01/06/17 21 :13; Admin Dose 52 UNIT; Start 12/31/16 at 20:00 Hydralazine HCl (Apresoline) 100 mg Q8 PO Last administered on 01/07/17 06:03 ; Admin Dose 100 MG; Start 01/01/17 at 14:00 Spironolactone (Aldactone) 25 mg DAILY PO Last administered on 01/07/17 08:08 ; Admin Dose 25 MG; Start 01/03/17 at 09:00 Insulin Aspart (Novolog Insulin Pen) NOVOLOG *MILD* ALGORI... Q6 SC Last administered on 01/05/17 18:07; Admin Dose 1 UNIT; Start 01/05/17 at 00:00 Carvedilol (Coreg) 12.5 mg BID PO Last administered on 01/07/17 08:09; Admin Dose 12.5 MG; Start 01/04/17 at 21:00 Metoprolol Tartrate 5 mg 5 mg Q4H PRN IV HR>110 Last administered on 01/04/17 21:56; Admin Dose 5 MG; Start 01/04/17 at 19:30 Potassium Chloride/Dextrose (D5W + KCl 20 Meq) 1,000 ml @ 75 mls/hr [id number] IV Last administered on 01/07/17 11:13; Admin Dose 75 MLS/HR; Start 01/05/17 at 08:00 Clonidine HCl (Catapres-Tts 2 Patch) 1 patch Q7D TRANSDERM Last administered on 01/05/17 12:55; Admin Dose 1 PATCH; Start 01/05/17 at 12:00 Prednisone (Prednisone) 20 mg DAILY PO Last administered on 01/07/17 08:08; Admin Dose 20 MG; Start 01/07/17 at 09:00 Haloperidol 5 mg 5 mg Q6H PRN IV AGITATION Last administered on 01/06/17 21:49 ; Admin Dose 5 MG; Start 01/06/17 at 13:00 Levofloxacin/ Dextrose 100 ml @ 100 mls/hr Q24H IVPB Last administered on 01/06 15:59; Admin Dose 100 MLS/HR; Start 01/06/17 at 15:00 Potassium Chloride (KCl 40 MEQ/250 ML NS) 250 ml @ 62.5 mls/hr Q4H IVPB Last administered on 01/07/17 10:37; Admin Dose 62.5 MLS/HR; Start 01/07/17 at 10:00 ; Stop 01/07/17 at 17:59 NIDA GALLO M.D. January 07, 2017 13:26
[2017-01-07 15:42] LABS: ADD UMIC YES; URINE BILIRUBIN (Dip) 1+ (NEGATIVE); URINE BLOOD (Dip) 3+ (NEGATIVE); URINE GLUCOSE (Dip) NEGATIVE (NEGATIVE); URINE KETONES (Dip) NEGATIVE (NEGATIVE); URINE LEUKOCYTE ESTERASE (Dip) TRACE (NEGATIVE); URINE NITRITE (Dip) NEGATIVE (NEGATIVE); URINE TOTAL PROTEIN (Dip) 4+ (NEGATIVE); URINE UROBILINOGEN (Dip) 0.2 E.U./dL (0.1-1.0)
[2017-01-07 15:51] LABS: URINE COLOR DARK YELLOW (YELLOW)
--- NOTE | 2017-01-07 15:55 | CONS ---
Date/Time of Note Date/Time of Note DATE: 01/07/17 TIME: 15:54 Assessment/Plan Assessment/Plan Chief Complaint/Hosp Course SUBJECTIVE: The patient is less confused, no fevers, nad INDWELLINGS: PICC line, [place]. Abx: Levaquin PHYSICAL EXAMINATION: GENERAL: Obese, well-developed, middle-aged man who is awake, confused , in no distress. HEENT: Head atraumatic, normocephalic. Sclerae anicteric. Buccal mucosa dry. NECK: Supple. CHEST: Rise symmetrical. Breath sounds with scattered crackles. HEART: S1, S2. ABDOMEN: Soft, bowel tones present. EXTREMITIES: Without cyanosis. Bilateral trace edema. ASSESSMENT: 1. Acute respiratory failure. 2. Resolving Pneumonia. 3. Diabetes. 4. Morbid obesity. 5. Encephalopathy. 6. Status post urinary tract infection and acute kidney injury. PLAN: The patient remains stable.Continue present care, abx, aspiration precautions, pulmonary rec-s DW staff Problems: Consultation Date/Type/Reason Admit Date/Time Dec 15, 2016 at 11:20 Type of Consultation: ID Referring Provider: LEXII REED Exam/Review of Systems Vital Signs Vitals Vital Signs Date Time Temp Pulse Resp B/P Pulse Ox O2 Delivery O2 Flow Rate FiO2 01/07/17 15: 98.0 78 18 169/90 95 01/07/17 14:49 2.0 01/07/17 14:00 Nasal Cannula 01/07/17 04:02 33 Intake and Output 01/06/17 01/06/17 01/07/17 15:00 23:00 07:00 Intake Total 745 ml 575 ml 600 ml Output Total 390 ml 575 ml 560 ml Balance 355 ml 0 ml 40 ml Results Result Diagram: 01/07/17 0605 01/07/17 0605 Results 24 hrs Laboratory Tests Test 01/06/17 18:19 01/06/17 21:09 01/06/17 23:55 01/07/17 06:05 Bedside Glucose 130 116 115 White Blood Count 9.0 # Red Blood Count 3.59 L Hemoglobin 9.8 L Hematocrit 30.5 L Mean Corpuscular Volume 85.0 Mean Corpuscular Hemoglobin 27.3 L Mean Corpuscular Hemoglobin Concent 32.1 Red Cell Distribution Width 13.3 Platelet Count 215 Mean Platelet Volume 10.7 H Neutrophils % 74.3 Lymphocytes % 13.1 L Monocytes % 7.0 Eosinophils % 5.0 Basophils % 0.0 Nucleated Red Blood Cells % 0.0 Neutrophils # 6.7 Lymphocytes # 1.2 Monocytes # 0.6 Eosinophils # 0.5 Basophils # 0.0 Nucleated Red Blood Cells # 0.0 Sodium Level 139 Potassium Level 3.1 L Chloride Level 109 Carbon Dioxide Level 32 H Anion Gap 1 #L Blood Urea Nitrogen 29 H Creatinine 0.95 Glucose Level 82 # Calcium Level 8.0 L Test 01/07/17 06:09 01/07/17 11:30 01/07/17 12:05 Bedside Glucose 79 83 Urine Color DARK YELLOW Urine Clarity CLOUDY H Urine pH 5.5 Urine Specific [place] 1.020 Urine Ketones NEGATIVE Urine Nitrite NEGATIVE Urine Bilirubin 1+ H Urine Ictotest Pending Urine Urobilinogen 0.2 E.U./dL Urine Leukocyte Esterase TRACE H Urine Microscopic RBC Pending Urine Microscopic WBC Pending Urine Hemoglobin 3+ H Urine Glucose NEGATIVE Urine Total Protein 4+ H Medications Medications Current Medications Ondansetron HCl (Zofran Inj) 4 mg Q6H PRN IV NAUSEA AND/OR VOMITING; Start at 13:00 Acetaminophen (Tylenol Tab) 650 mg Q6H PRN PO PAIN LEVEL 1-3 OR FEVER Last administered on 12/29/16 06:02; Admin Dose 650 MG; Start 12/15/16 at 13:00 Acetaminophen/ Hydrocodone Bitart ([place] (5/325)) 1 tab Q6H PRN PO PAIN LEVEL 4 -6 Last administered on 12/15/16 22:08; Admin Dose 1 TAB; Start 12/15/16 at 13: 00 Morphine Sulfate (morphine) 2 mg Q4H PRN IV PAIN LEVEL 7-10 Last administered on 01/07/17 04:10; Admin Dose 2 MG; Start 12/15/16 at 13:00 Magnesium Hydroxide (Milk Of Mag) 30 ml DAILY PRN PO CONSTIPATION Last administered on 01/02/17 02:07; Admin Dose 30 ML; Start 12/15/16 at 13:00 Bisacodyl (Dulcolax) 5 mg DAILY PRN PO CONSTIPATION Last administered on 17:44; Admin Dose 5 MG; Start 12/15/16 at 13:00 Famotidine (Pepcid) 20 mg Q12 PO Last administered on 01/07/17 08:08; Admin Dose 20 MG; Start 12/15/16 at 21:00 Aspirin (Aspirin) 325 mg DAILY PO Last administered on 01/07/17 08:09; Admin Dose 325 MG; Start 12/16/16 at 09:00 Atorvastatin Calcium (Lipitor) 80 mg QHS PO Last administered on 01/06/17 21: 05; Admin Dose 80 MG; Start 12/15/16 at 21:00 Heparin Sodium (Porcine) (Heparin (5000 Units/0.5 ml)) 5,000 unit BID SC Last administered on 01/07/17 08:10; Admin Dose 5,000 UNIT; Start 12/15/16 at 21:00 Miscellaneous Information 1 ea NOTE XX ; Start 12/15/16 at 14:00 Glucose (Glutose) 15 gm Q15M PRN PO DECREASED GLUCOSE; Start 12/15/16 at 14:00 Glucose (Glutose) 22.5 gm Q15M PRN PO DECREASED GLUCOSE; Start 12/15/16 at 14: 00 Glucagon (Glucagen) 1 mg Q15M PRN IM DECREASED GLUCOSE; Start 12/15/16 at 14:00 Glucose (Glutose) 15 gm Q15M PRN BUCCAL DECREASED GLUCOSE; Start 12/15/16 at 14 :00 Cholecalciferol 1000 unit 1,000 unit DAILY PO Last administered on 01/07/17 08 :09; Admin Dose 1,000 UNIT; Start 12/16/16 at 09:00 Fentanyl (Sublimaze) 100 ml @ 2.5 mls/hr TITRATE IV Last administered on 01:42; Admin Dose 10 MLS/HR; Start 12/18/16 at 03:30 Dextrose (D50w Syringe) 25 ml Q15M PRN IV Till BS 80 mg/dL or above x2 Last administered on 01/04/17 20:11; Admin Dose 25 ML; Start 12/18/16 at 14:00 Dextrose (D50w Syringe) 50 ml Q15M PRN IV Till BS 80 mg/dL or above x2; Start 12/18/16 at 14:00 IV Flush (NS 10 ml) 10 ml PRN PRN IV IV PROTOCOL; Start 12/18/16 at 17:00 Amlodipine Besylate 5 mg 5 mg DAILY PO Last administered on 01/07/17 08:09; Admin Dose 5 MG; Start 12/21/16 at 09:00 Midazolam HCl 50 ml @ 1 mls/hr TITRATE IV Last administered on 01/04/17 03:02 ; Admin Dose 10 MLS/HR; Start 12/20/16 at 14:00 Propofol (Diprivan) 100 ml @ 3.255 mls/ hr Q12H IV Last administered on 05:21; Admin Dose 13.02 MLS/HR; Start 12/20/16 at 20:30 Hydralazine HCl (Apresoline) 10 mg Q4H PRN IV sbp > 160 Last administered on 11:46; Admin Dose 10 MG; Start 12/22/16 at 06:30 Insulin Glargine (Lantus) 52 unit DAILY@20 SC Last administered on 01/06/17 21 :13; Admin Dose 52 UNIT; Start 12/31/16 at 20:00 Hydralazine HCl (Apresoline) 100 mg Q8 PO Last administered on 01/07/17 06:03 ; Admin Dose 100 MG; Start 01/01/17 at 14:00 Insulin Aspart (Novolog Insulin Pen) NOVOLOG *MILD* ALGORI... Q6 SC Last administered on 01/05/17 18:07; Admin Dose 1 UNIT; Start 01/05/17 at 00:00 Carvedilol (Coreg) 12.5 mg BID PO Last administered on 01/07/17 08:09; Admin Dose 12.5 MG; Start 01/04/17 at 21:00 Metoprolol Tartrate 5 mg 5 mg Q4H PRN IV HR>110 Last administered on 01/04/17 21:56; Admin Dose 5 MG; Start 01/04/17 at 19:30 Potassium Chloride/Dextrose (D5W + KCl 20 Meq) 1,000 ml @ 75 mls/hr [id number] IV Last administered on 01/07/17 11:13; Admin Dose 75 MLS/HR; Start 01/05/17 at 08:00 Clonidine HCl (Catapres-Tts 2 Patch) 1 patch Q7D TRANSDERM Last administered on 01/05/17 12:55; Admin Dose 1 PATCH; Start 01/05/17 at 12:00 Prednisone (Prednisone) 20 mg DAILY PO Last administered on 01/07/17 08:08; Admin Dose 20 MG; Start 01/07/17 at 09:00 Haloperidol 5 mg 5 mg Q6H PRN IV AGITATION Last administered on 01/06/17 21:49 ; Admin Dose 5 MG; Start 01/06/17 at 13:00 Levofloxacin/ Dextrose 100 ml @ 100 mls/hr Q24H IVPB Last administered on 01/06 15:59; Admin Dose 100 MLS/HR; Start 01/06/17 at 15:00 Potassium Chloride (KCl 40 MEQ/250 ML NS) 250 ml @ 62.5 mls/hr Q4H IVPB Last administered on 01/07/17 10:37; Admin Dose 62.5 MLS/HR; Start 01/07/17 at 10:00 ; Stop 01/07/17 at 17:59 YOLETTE RODRIGUEZ NP January 07, 2017 15:55
[2017-01-07] MEDS: LEVOFLOXACIN 500MG/D5W (PMX) 100 ML IVPB SCH (16:04)
[2017-01-07] MEDS: hydrALAzine 20 MG INJ IV PRN (16:05)
[2017-01-07 16:50] LABS: ICTOTEST NEGATIVE (NEGATIVE)
[2017-01-07 16:53] LABS: BACTERIA,URINE FEW
[2017-01-07] MEDS: ATORVASTATIN 80 MG TAB PO SCH (21:35)
[2017-01-07] MEDS: INSULIN GLARGINE [LANtus] 3 ML PEN SC SCH (23:44)
[2017-01-08] VITALS (10 sets, daily range): BP systolic 128–162; BP diastolic 67–82; PULSE 66–80; RESP 20
[2017-01-08] MEDS: HALOPERIDOL 5 MG INJ IV PRN (00:52)
[2017-01-08] MEDS: ACCU-CHEK XX SCH (01:30)
[2017-01-08] MEDS: D5W + KCL 20 MEQ 1,000 ML IV SCH ×2 (01:33→13:50)
[2017-01-08] MEDS: morphine 2 MG INJ IV PRN (01:53)
[2017-01-08] MEDS ORDERED: LORAZEPAM 2 MG INJ IV ONE (03:30)
[2017-01-08] MEDS: FUROSEMIDE 20 MG INJ IV SCH ×2 (06:08→16:56)
[2017-01-08] MEDS: SEVELAMER CARBONATE 0.8 GM PKT PO SCH ×3 (07:55→16:49)
[2017-01-08] MEDS: INSULIN ASPART [NOVOLOG] 3 ML PEN SC SCH ×4 (07:55→20:44)
[2017-01-08] MEDS: AMLODIPINE 5 MG TAB PO SCH (09:00)
[2017-01-08] MEDS: FAMOTIDINE 20 MG TAB PO SCH ×2 (09:00→20:40)
[2017-01-08] MEDS: CHOLECALCIFEROL 1,000 UNIT TAB PO SCH (09:00)
[2017-01-08] MEDS: ASPIRIN 325 MG TAB PO SCH (09:00)
[2017-01-08] MEDS: predniSONE 20 MG TAB PO SCH (09:00)
[2017-01-08] MEDS: HEPARIN 5,000 UNIT/0.5 ML VIAL SC SCH ×2 (09:44→20:59)
[2017-01-08 10:00] LABS: ADD SCAN DIFF NO
[2017-01-08 10:02] LABS: EOSINOPHILS # 0.3 10^3/ul (0.0-0.5); EOSINOPHILS % 6.1 % (0.0-7.0); HEMATOCRIT 26.2 % (42.0-52.0); HEMOGLOBIN 8.2 g/dl (14.0-18.0); LYMPHOCYTES # 0.6 10^3/ul (0.8-2.9); LYMPHOCYTES % 12.4 % (15.0-51.0); MEAN CORPUSCULAR HEMOGLOBIN 26.9 pg (29.0-33.0); MEAN CORPUSCULAR HGB CONC 31.3 g/dl (32.0-37.0); MEAN CORPUSCULAR VOLUME 85.9 fl (82.0-101.0); MEAN PLATELET VOLUME 11.2 fl (7.4-10.4); MONOCYTE # 0.5 10^3/ul (0.3-0.9); MONOCYTES % 9.1 % (0.0-11.0); NEUTROPHIL # 3.7 10^3/ul (1.6-7.5); NEUTROPHILS % 71.8 % (39.0-77.0); PLATELET COUNT 178 10^3/UL (140-415); RED BLOOD COUNT 3.05 10^6/ul (4.70-6.10); RED CELL DISTRIBUTION WIDTH 13.5 % (11.5-14.5); WHITE BLOOD COUNT 5.1 10^3/ul (4.8-10.8)
[2017-01-08 10:30] LABS: POTASSIUM 3.2 mmol/L (3.5-5.1)
[2017-01-08 10:32] LABS: CREATININE 0.95 mg/dl (0.61-1.24)
[2017-01-08 10:33] LABS: CALCIUM 7.6 mg/dl (8.4-10.2)
--- NOTE | 2017-01-08 11:29 | CONS ---
Date/Time of Note Date/Time of Note DATE: 01/08/17 TIME: 11:27 Assessment/Plan Assessment/Plan Additional Assessment/Plan Assessment recommendations; 1. Patient admitted with acute renal failure and respiratory failure possibly from pneumonia with marked clinical improvement now, extubated several days ago. 2. Markedly improved renal function, patient off steroids. Continue current treatment. Consider stopping antibiotics. Consultation Date/Type/Reason Admit Date/Time Dec 15, 2016 at 11:20 Type of Consultation: Pulmonary Referring Provider: LEXII REED 24 HR Interval Summary Free Text/Dictation Patient condition is stable. Denies any shortness of breath, chest pain, fever or chills. General exam; young male, awake alert currently in no distress. Exam/Review of Systems Vital Signs Vitals Vital Signs Date Time Temp Pulse Resp B/P Pulse Ox O2 Delivery O2 Flow Rate FiO2 01/08/17 11:20 97.9 70 20 128/71 98 01/08/17 08:00 Nasal Cannula 4.0 01/07/17 04:02 33 Intake and Output 01/07/17 01/07/17 01/08/17 15:00 23:00 07:00 Intake Total 362.5 ml 325 ml 900 ml Output Total 380 ml 600 ml Balance -17.5 ml 325 ml 300 ml Exam HEENT examination; supple neck, no JVD. No lymphadenopathy. Midline trachea. No thyromegaly. Pharynx is clear, patient has good dentition. Pupils are midsize and reactive to light bilaterally. Chest examination; clear to auscultation. S1-S2 audible, no murmurs. Regular rhythm. Abdomen examination; soft, protuberant. Nontender. No organomegaly. Bowel sounds audible. Extremity examination; no peripheral edema. Pulses 1+ bilaterally. 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 Results Result Diagram: 01/08/17 0935 01/08/17 0935 Results 24 hrs Laboratory Tests Test 01/07/17 11:30 01/07/17 12:05 01/07/17 18:40 01/07/17 21:54 Urine Color DARK YELLOW Urine Clarity CLOUDY H Urine pH 5.5 Urine Specific [place] 1.020 Urine Ketones NEGATIVE Urine Nitrite NEGATIVE Urine Bilirubin 1+ H Urine Ictotest NEGATIVE Urine Urobilinogen 0.2 E.U./dL Urine Leukocyte Esterase TRACE H Urine Microscopic RBC 5-10 Urine Microscopic WBC 10-25 Urine Amorphous Urates MANY Urine Bacteria FEW Urine Coarse Granular Casts MODERATE Urine Hemoglobin 3+ H Urine Glucose NEGATIVE Urine Total Protein 4+ H Bedside Glucose 83 121 157 Test 01/08/17 08:10 01/08/17 08:53 01/08/17 09:18 01/08/17 09:35 Bedside Glucose 50 L 100 95 White Blood Count 5.1 # Red Blood Count 3.05 L Hemoglobin 8.2 L Hematocrit 26.2 L Mean Corpuscular Volume 85.9 Mean Corpuscular Hemoglobin 26.9 L Mean Corpuscular Hemoglobin Concent 31.3 L Red Cell Distribution Width 13.5 Platelet Count 178 Mean Platelet Volume 11.2 H Neutrophils % 71.8 Lymphocytes % 12.4 L Monocytes % 9.1 Eosinophils % 6.1 Basophils % 0.0 Nucleated Red Blood Cells % 0.0 Neutrophils # 3.7 Lymphocytes # 0.6 L Monocytes # 0.5 Eosinophils # 0.3 Basophils # 0.0 Nucleated Red Blood Cells # 0.0 Sodium Level 140 Potassium Level 3.2 L Chloride Level 105 Carbon Dioxide Level 29 Anion Gap 9 # Blood Urea Nitrogen 24 H Creatinine 0.95 Glucose Level 75 Calcium Level 7.6 L Medications Medications Current Medications Ondansetron HCl (Zofran Inj) 4 mg Q6H PRN IV NAUSEA AND/OR VOMITING; Start at 13:00 Acetaminophen (Tylenol Tab) 650 mg Q6H PRN PO PAIN LEVEL 1-3 OR FEVER Last administered on 12/29/16 06:02; Admin Dose 650 MG; Start 12/15/16 at 13:00 Acetaminophen/ Hydrocodone Bitart ([place] (5/325)) 1 tab Q6H PRN PO PAIN LEVEL 4 -6 Last administered on 12/15/16 22:08; Admin Dose 1 TAB; Start 12/15/16 at 13: 00 Morphine Sulfate (morphine) 2 mg Q4H PRN IV PAIN LEVEL 7-10 Last administered on 01/08/17 01:53; Admin Dose 2 MG; Start 12/15/16 at 13:00 Magnesium Hydroxide (Milk Of Mag) 30 ml DAILY PRN PO CONSTIPATION Last administered on 01/02/17 02:07; Admin Dose 30 ML; Start 12/15/16 at 13:00 Bisacodyl (Dulcolax) 5 mg DAILY PRN PO CONSTIPATION Last administered on 17:44; Admin Dose 5 MG; Start 12/15/16 at 13:00 Famotidine (Pepcid) 20 mg Q12 PO Last administered on 01/07/17 21:35; Admin Dose 20 MG; Start 12/15/16 at 21:00 Aspirin (Aspirin) 325 mg DAILY PO Last administered on 01/07/17 08:09; Admin Dose 325 MG; Start 12/16/16 at 09:00 Atorvastatin Calcium (Lipitor) 80 mg QHS PO Last administered on 01/07/17 21: 35; Admin Dose 80 MG; Start 12/15/16 at 21:00 Heparin Sodium (Porcine) (Heparin (5000 Units/0.5 ml)) 5,000 unit BID SC Last administered on 01/08/17 09:44; Admin Dose 5,000 UNIT; Start 12/15/16 at 21:00 Glucose (Glutose) 15 gm Q15M PRN PO DECREASED GLUCOSE; Start 12/15/16 at 14:00 Glucose (Glutose) 22.5 gm Q15M PRN PO DECREASED GLUCOSE; Start 12/15/16 at 14: 00 Glucagon (Glucagen) 1 mg Q15M PRN IM DECREASED GLUCOSE; Start 12/15/16 at 14:00 Glucose (Glutose) 15 gm Q15M PRN BUCCAL DECREASED GLUCOSE; Start 12/15/16 at 14 :00 Cholecalciferol (Vitamin D) 1,000 unit DAILY PO Last administered on 01/07/17 08:09; Admin Dose 1,000 UNIT; Start 12/16/16 at 09:00 Dextrose (D50w Syringe) 25 ml Q15M PRN IV Till BS 80 mg/dL or above x2 Last administered on 01/04/17 20:11; Admin Dose 25 ML; Start 12/18/16 at 14:00 Dextrose (D50w Syringe) 50 ml Q15M PRN IV Till BS 80 mg/dL or above x2 Last administered on 01/08/17 08:15; Admin Dose 50 ML; Start 12/18/16 at 14:00 Amlodipine Besylate (Norvasc) 5 mg DAILY PO Last administered on 01/07/17 08: 09; Admin Dose 5 MG; Start 12/21/16 at 09:00 Hydralazine HCl (Apresoline) 10 mg Q4H PRN IV sbp > 160 Last administered on 16:05; Admin Dose 10 MG; Start 12/22/16 at 06:30 Insulin Glargine (Lantus) 52 unit DAILY@20 SC Last administered on 01/07/17 23 :44; Admin Dose 52 UNIT; Start 12/31/16 at 20:00 Hydralazine HCl (Apresoline) 100 mg Q8 PO Last administered on 01/08/17 06:09 ; Admin Dose 100 MG; Start 01/01/17 at 14:00 Carvedilol (Coreg) 12.5 mg BID PO Last administered on 01/07/17 21:36; Admin Dose 12.5 MG; Start 01/04/17 at 21:00 Metoprolol Tartrate 5 mg 5 mg Q4H PRN IV HR>110 Last administered on 01/04/17 21:56; Admin Dose 5 MG; Start 01/04/17 at 19:30 Potassium Chloride/Dextrose (D5W + KCl 20 Meq) 1,000 ml @ 75 mls/hr [id number] IV Last administered on 01/08/17 01:33; Admin Dose 75 MLS/HR; Start 01/05/17 at 08:00 Clonidine HCl (Catapres-Tts 2 Patch) 1 patch Q7D TRANSDERM Last administered on 01/05/17 12:55; Admin Dose 1 PATCH; Start 01/05/17 at 12:00 Prednisone (Prednisone) 20 mg DAILY PO Last administered on 01/07/17 08:08; Admin Dose 20 MG; Start 01/07/17 at 09:00 Haloperidol 5 mg 5 mg Q6H PRN IV AGITATION Last administered on 01/08/17 00:52 ; Admin Dose 5 MG; Start 01/06/17 at 13:00 Levofloxacin/ Dextrose (Levaquin 500mg/ D5W 100 ml (Pmx)) 100 ml @ 100 mls/hr Q24H IVPB Last administered on 01/07/17 16:04; Admin Dose 100 MLS/HR; Start at 15:00 Diagnostic Test (Pha) (Accu-Chek) 1 02 XX ; Start 01/08/17 at 02:00 JESS STALLINGS January 08, 2017 11:29
--- NOTE | 2017-01-08 12:34 | PN ---
Date/Time of Note Date/Time of Note DATE: 01/08/17 TIME: 12:21 Assessment/Plan VTE Prophylaxis VTE Prophylaxis Intervention: heparin Lines/Catheters IV Catheter Type (from [facility], [place]): PICC Line Central line still needed: Yes Urinary Cath still in place: Yes Reason Cath still needed: other (indicate) Assessment/Plan Assessment/Plan A/P: 41 M with: 1. Sepsis secondary to underlying community-acquired pneumonia with septic shock - resolved now. 2. Acute hypoxic respiratory failure. Most probably secondary to underlying pneumonia Patient got intubated on 12/18/2016, extubated on 01/04/17. 3. Elevated troponins. Most probably a type 2 event from underlying sepsis and underlying acute kidney injury. 4. Acute kidney injury: resolved 5. Type 2 diabetes mellitus. Poor home control. A1C is high (send out) : Current control too tight / Patient with hypoglycemia this am / reduce lantus 6. Dyslipidemia. Continue statins. 7. Essential hypertension. Continue antihypertensives. 8. Microcytic, hypochromic anemia. Etiology unclear r/o occult blood loss. Iron panel showing iron deficiency. Continue iron supplements. 9. Vitamin D deficiency. Continue supplements. 10. Positive DAISY with unclear clinical significance. Continue to monitor ,f/u rheum rec's. Taper down steroids. 11. Delio LE weakness : ?Myopathy / check CK / hold statin / if normal, consider lower back imaging DVT prophylaxis. Subcutaneous heparin. Gastrointestinal prophylaxis. Histamine 2 receptor blockers. Continue antibiotics per ID. Subjective 24 Hr Interval Summary Free Text/Dictation less confused per but still intermittently confused Severe delio LE weakness Exam/Review of Systems Vital Signs Vitals Vital Signs Date Time Temp Pulse Resp B/P Pulse Ox O2 Delivery O2 Flow Rate FiO2 01/08/17 11:20 97.9 70 20 128/71 98 01/08/17 08:00 Nasal Cannula 4.0 01/07/17 04:02 33 Intake and Output 01/07/17 01/07/17 01/08/17 15:00 23:00 07:00 Intake Total 362.5 ml 325 ml 900 ml Output Total 380 ml 600 ml Balance -17.5 ml 325 ml 300 ml Exam GENERAL: This is a morbidly obese male lying in bed, more alert, intermittent confused speech HEENT: Head normocephalic and atraumatic. Eyes: Anicteric sclerae. Conjunctivae clear. ENT: Nasal septum is midline. Oral mucosa is dry. NECK: Short with increased neck circumference. RESPIRATORY: Diminished breath sounds, right less than left, stable on nasal cannula. CARDIAC: Regular rate and rhythm. S1, S2 heard. ABDOMEN: Soft, nontender and nondistended. Bowel sounds positive in all 4 quadrants. EXTREMITIES: No cyanosis, no clubbing. B/L LE edema. Pedal pulses palpable. Status post left great toe amputation. NEUROLOGIC: Patient unable to raise either lower extremity against gravity, he can barely move them from [id number], left seems slightly stronger than right. Results Result Diagram: 01/08/17 0935 01/08/17 0935 Results 24 hrs Laboratory Tests Test 01/07/17 18:40 01/07/17 21:54 01/08/17 08:10 01/08/17 08:53 Bedside Glucose 121 157 50 L 100 Test 01/08/17 09:18 01/08/17 09:35 01/08/17 11:54 Bedside Glucose 95 71 White Blood Count 5.1 # Red Blood Count 3.05 L Hemoglobin 8.2 L Hematocrit 26.2 L Mean Corpuscular Volume 85.9 Mean Corpuscular Hemoglobin 26.9 L Mean Corpuscular Hemoglobin Concent 31.3 L Red Cell Distribution Width 13.5 Platelet Count 178 Mean Platelet Volume 11.2 H Neutrophils % 71.8 Lymphocytes % 12.4 L Monocytes % 9.1 Eosinophils % 6.1 Basophils % 0.0 Nucleated Red Blood Cells % 0.0 Neutrophils # 3.7 Lymphocytes # 0.6 L Monocytes # 0.5 Eosinophils # 0.3 Basophils # 0.0 Nucleated Red Blood Cells # 0.0 Sodium Level 140 Potassium Level 3.2 L Chloride Level 105 Carbon Dioxide Level 29 Anion Gap 9 # Blood Urea Nitrogen 24 H Creatinine 0.95 Glucose Level 75 Calcium Level 7.6 L Medications Medications Current Medications Ondansetron HCl (Zofran Inj) 4 mg Q6H PRN IV NAUSEA AND/OR VOMITING; Start at 13:00 Acetaminophen (Tylenol Tab) 650 mg Q6H PRN PO PAIN LEVEL 1-3 OR FEVER Last administered on 12/29/16 06:02; Admin Dose 650 MG; Start 12/15/16 at 13:00 Acetaminophen/ Hydrocodone Bitart ([place] (5/325)) 1 tab Q6H PRN PO PAIN LEVEL 4 -6 Last administered on 12/15/16 22:08; Admin Dose 1 TAB; Start 12/15/16 at 13: 00 Morphine Sulfate (morphine) 2 mg Q4H PRN IV PAIN LEVEL 7-10 Last administered on 01/08/17 01:53; Admin Dose 2 MG; Start 12/15/16 at 13:00 Magnesium Hydroxide (Milk Of Mag) 30 ml DAILY PRN PO CONSTIPATION Last administered on 01/02/17 02:07; Admin Dose 30 ML; Start 12/15/16 at 13:00 Bisacodyl (Dulcolax) 5 mg DAILY PRN PO CONSTIPATION Last administered on 17:44; Admin Dose 5 MG; Start 12/15/16 at 13:00 Famotidine (Pepcid) 20 mg Q12 PO Last administered on 01/07/17 21:35; Admin Dose 20 MG; Start 12/15/16 at 21:00 Aspirin (Aspirin) 325 mg DAILY PO Last administered on 01/07/17 08:09; Admin Dose 325 MG; Start 12/16/16 at 09:00 Atorvastatin Calcium (Lipitor) 80 mg QHS PO Last administered on 01/07/17 21: 35; Admin Dose 80 MG; Start 12/15/16 at 21:00 Heparin Sodium (Porcine) (Heparin (5000 Units/0.5 ml)) 5,000 unit BID SC Last administered on 01/08/17 09:44; Admin Dose 5,000 UNIT; Start 12/15/16 at 21:00 Glucose (Glutose) 15 gm Q15M PRN PO DECREASED GLUCOSE; Start 12/15/16 at 14:00 Glucose (Glutose) 22.5 gm Q15M PRN PO DECREASED GLUCOSE; Start 12/15/16 at 14: 00 Glucagon (Glucagen) 1 mg Q15M PRN IM DECREASED GLUCOSE; Start 12/15/16 at 14:00 Glucose (Glutose) 15 gm Q15M PRN BUCCAL DECREASED GLUCOSE; Start 12/15/16 at 14 :00 Cholecalciferol (Vitamin D) 1,000 unit DAILY PO Last administered on 01/07/17 08:09; Admin Dose 1,000 UNIT; Start 12/16/16 at 09:00 Dextrose (D50w Syringe) 25 ml Q15M PRN IV Till BS 80 mg/dL or above x2 Last administered on 01/04/17 20:11; Admin Dose 25 ML; Start 12/18/16 at 14:00 Dextrose (D50w Syringe) 50 ml Q15M PRN IV Till BS 80 mg/dL or above x2 Last administered on 01/08/17 08:15; Admin Dose 50 ML; Start 12/18/16 at 14:00 Amlodipine Besylate (Norvasc) 5 mg DAILY PO Last administered on 01/07/17 08: 09; Admin Dose 5 MG; Start 12/21/16 at 09:00 Hydralazine HCl (Apresoline) 10 mg Q4H PRN IV sbp > 160 Last administered on 16:05; Admin Dose 10 MG; Start 12/22/16 at 06:30 Insulin Glargine (Lantus) 52 unit DAILY@20 SC Last administered on 01/07/17 23 :44; Admin Dose 52 UNIT; Start 12/31/16 at 20:00 Hydralazine HCl (Apresoline) 100 mg Q8 PO Last administered on 01/08/17 06:09 ; Admin Dose 100 MG; Start 01/01/17 at 14:00 Carvedilol (Coreg) 12.5 mg BID PO Last administered on 01/07/17 21:36; Admin Dose 12.5 MG; Start 01/04/17 at 21:00 Metoprolol Tartrate 5 mg 5 mg Q4H PRN IV HR>110 Last administered on 01/04/17 21:56; Admin Dose 5 MG; Start 01/04/17 at 19:30 Potassium Chloride/Dextrose (D5W + KCl 20 Meq) 1,000 ml @ 75 mls/hr [id number] IV Last administered on 01/08/17 01:33; Admin Dose 75 MLS/HR; Start 01/05/17 at 08:00 Clonidine HCl (Catapres-Tts 2 Patch) 1 patch Q7D TRANSDERM Last administered on 01/05/17 12:55; Admin Dose 1 PATCH; Start 01/05/17 at 12:00 Prednisone (Prednisone) 20 mg DAILY PO Last administered on 01/07/17 08:08; Admin Dose 20 MG; Start 01/07/17 at 09:00 Haloperidol 5 mg 5 mg Q6H PRN IV AGITATION Last administered on 01/08/17 00:52 ; Admin Dose 5 MG; Start 01/06/17 at 13:00 Levofloxacin/ Dextrose (Levaquin 500mg/ D5W 100 ml (Pmx)) 100 ml @ 100 mls/hr Q24H IVPB Last administered on 01/07/17 16:04; Admin Dose 100 MLS/HR; Start at 15:00 Diagnostic Test (Pha) (Accu-Chek) 1 ea 02 XX ; Start 01/08/17 at 02:00 LEXII REED January 08, 2017 12:31 on 01/05/17 12:55; Admin Dose 1 PATCH; Start 01/05/17 at 12:00 Prednisone (Prednisone) 20 mg DAILY PO Last administered on 01/07/17 08:08; Admin Dose 20 MG; Start 01/07/17 at 09:00 Haloperidol 5 mg 5 mg Q6H PRN IV AGITATION Last administered on 01/08/17 00:52 ; Admin Dose 5 MG; Start 01/06/17 at 13:00 Levofloxacin/ Dextrose (Levaquin 500mg/ D5W 100 ml (Pmx)) 100 ml @ 100 mls/hr Q24H IVPB Last administered on 01/07/17 16:04; Admin Dose 100 MLS/HR; Start at 15:00 Diagnostic Test (Pha) (Accu-Chek) 1 ea 02 XX ; Start 01/08/17 at 02:00 LEXII REED January 08, 2017 12:31
--- NOTE | 2017-01-08 13:37 | CONS ---
Date/Time of Note Date/Time of Note DATE: 01/08/17 TIME: 13:36 Assessment/Plan Assessment/Plan Chief Complaint/Hosp Course SUBJECTIVE: The patient is less confused, no fevers, nad, asking to dc Ritchie INDWELLINGS: PICC line, Ritchie. Abx: Levaquin PHYSICAL EXAMINATION: GENERAL: Obese, well-developed, middle-aged man who is awake, confused , in no distress. HEENT: Head atraumatic, normocephalic. Sclerae anicteric. Buccal mucosa dry. NECK: Supple. CHEST: Rise symmetrical. Breath sounds with scattered crackles. HEART: S1, S2. ABDOMEN: Soft, bowel tones present. EXTREMITIES: Without cyanosis. Bilateral trace edema. ASSESSMENT: 1. Acute respiratory failure. 2. Resolving Pneumonia. 3. Diabetes. 4. Morbid obesity. 5. Encephalopathy. 6. Status post urinary tract infection and acute kidney injury. PLAN: The patient remains stable. Will dc abx, dc Ritchie, monitor PVR, f/u pulmonary rec-s DW staff Problems: Consultation Date/Type/Reason Admit Date/Time Dec 15, 2016 at 11:20 Type of Consultation: ID Referring Provider: LEXII REED Exam/Review of Systems Vital Signs Vitals Vital Signs Date Time Temp Pulse Resp B/P Pulse Ox O2 Delivery O2 Flow Rate FiO2 01/08/17 12:50 77 01/08/17 11:20 97.9 20 128/71 98 01/08/17 08:00 Nasal Cannula 4.0 01/07/17 04:02 33 Intake and Output 01/07/17 01/07/17 01/08/17 15:00 23:00 07:00 Intake Total 362.5 ml 325 ml 900 ml Output Total 380 ml 600 ml Balance -17.5 ml 325 ml 300 ml Results Result Diagram: 01/08/17 0935 01/08/17 0935 Results 24 hrs Laboratory Tests Test 01/07/17 18:40 01/07/17 21:54 01/08/17 08:10 01/08/17 08:53 Bedside Glucose 121 157 50 L 100 Test 01/08/17 09:18 01/08/17 09:35 01/08/17 11:54 Bedside Glucose 95 71 White Blood Count 5.1 # Red Blood Count 3.05 L Hemoglobin 8.2 L Hematocrit 26.2 L Mean Corpuscular Volume 85.9 Mean Corpuscular Hemoglobin 26.9 L Mean Corpuscular Hemoglobin Concent 31.3 L Red Cell Distribution Width 13.5 Platelet Count 178 Mean Platelet Volume 11.2 H Neutrophils % 71.8 Lymphocytes % 12.4 L Monocytes % 9.1 Eosinophils % 6.1 Basophils % 0.0 Nucleated Red Blood Cells % 0.0 Neutrophils # 3.7 Lymphocytes # 0.6 L Monocytes # 0.5 Eosinophils # 0.3 Basophils # 0.0 Nucleated Red Blood Cells # 0.0 Sodium Level 140 Potassium Level 3.2 L Chloride Level 105 Carbon Dioxide Level 29 Anion Gap 9 # Blood Urea Nitrogen 24 H Creatinine 0.95 Glucose Level 75 Calcium Level 7.6 L Medications Medications Current Medications Ondansetron HCl (Zofran Inj) 4 mg Q6H PRN IV NAUSEA AND/OR VOMITING; Start at 13:00 Acetaminophen (Tylenol Tab) 650 mg Q6H PRN PO PAIN LEVEL 1-3 OR FEVER Last administered on 12/29/16 06:02; Admin Dose 650 MG; Start 12/15/16 at 13:00 Acetaminophen/ Hydrocodone Bitart ([place] (5/325)) 1 tab Q6H PRN PO PAIN LEVEL 4 -6 Last administered on 12/15/16 22:08; Admin Dose 1 TAB; Start 12/15/16 at 13: 00 Morphine Sulfate (morphine) 2 mg Q4H PRN IV PAIN LEVEL 7-10 Last administered on 01/08/17 01:53; Admin Dose 2 MG; Start 12/15/16 at 13:00 Magnesium Hydroxide (Milk Of Mag) 30 ml DAILY PRN PO CONSTIPATION Last administered on 01/02/17 02:07; Admin Dose 30 ML; Start 12/15/16 at 13:00 Bisacodyl (Dulcolax) 5 mg DAILY PRN PO CONSTIPATION Last administered on 17:44; Admin Dose 5 MG; Start 12/15/16 at 13:00 Famotidine (Pepcid) 20 mg Q12 PO Last administered on 01/07/17 21:35; Admin Dose 20 MG; Start 12/15/16 at 21:00 Aspirin (Aspirin) 325 mg DAILY PO Last administered on 01/07/17 08:09; Admin Dose 325 MG; Start 12/16/16 at 09:00 Atorvastatin Calcium (Lipitor) 80 mg QHS PO Last administered on 01/07/17 21: 35; Admin Dose 80 MG; Start 12/15/16 at 21:00; Status Future Hold Heparin Sodium (Porcine) (Heparin (5000 Units/0.5 ml)) 5,000 unit BID SC Last administered on 01/08/17 09:44; Admin Dose 5,000 UNIT; Start 12/15/16 at 21:00 Glucose (Glutose) 15 gm Q15M PRN PO DECREASED GLUCOSE; Start 12/15/16 at 14:00 Glucose (Glutose) 22.5 gm Q15M PRN PO DECREASED GLUCOSE; Start 12/15/16 at 14: 00 Glucagon (Glucagen) 1 mg Q15M PRN IM DECREASED GLUCOSE; Start 12/15/16 at 14:00 Glucose (Glutose) 15 gm Q15M PRN BUCCAL DECREASED GLUCOSE; Start 12/15/16 at 14 :00 Cholecalciferol (Vitamin D) 1,000 unit DAILY PO Last administered on 01/07/17 08:09; Admin Dose 1,000 UNIT; Start 12/16/16 at 09:00 Dextrose (D50w Syringe) 25 ml Q15M PRN IV Till BS 80 mg/dL or above x2 Last administered on 01/04/17 20:11; Admin Dose 25 ML; Start 12/18/16 at 14:00 Dextrose (D50w Syringe) 50 ml Q15M PRN IV Till BS 80 mg/dL or above x2 Last administered on 01/08/17 08:15; Admin Dose 50 ML; Start 12/18/16 at 14:00 Amlodipine Besylate (Norvasc) 5 mg DAILY PO Last administered on 01/07/17 08: 09; Admin Dose 5 MG; Start 12/21/16 at 09:00 Hydralazine HCl (Apresoline) 10 mg Q4H PRN IV sbp > 160 Last administered on 16:05; Admin Dose 10 MG; Start 12/22/16 at 06:30 Hydralazine HCl (Apresoline) 100 mg Q8 PO Last administered on 01/08/17 06:09 ; Admin Dose 100 MG; Start 01/01/17 at 14:00 Carvedilol (Coreg) 12.5 mg BID PO Last administered on 01/07/17 21:36; Admin Dose 12.5 MG; Start 01/04/17 at 21:00 Metoprolol Tartrate 5 mg 5 mg Q4H PRN IV HR>110 Last administered on 01/04/17 21:56; Admin Dose 5 MG; Start 01/04/17 at 19:30 Potassium Chloride/Dextrose (D5W + KCl 20 Meq) 1,000 ml @ 75 mls/hr [id number] IV Last administered on 01/08/17 01:33; Admin Dose 75 MLS/HR; Start 01/05/17 at 08:00 Clonidine HCl (Catapres-Tts 2 Patch) 1 patch Q7D TRANSDERM Last administered on 01/05/17 12:55; Admin Dose 1 PATCH; Start 01/05/17 at 12:00 Prednisone (Prednisone) 20 mg DAILY PO Last administered on 01/07/17 08:08; Admin Dose 20 MG; Start 01/07/17 at 09:00 Haloperidol 5 mg 5 mg Q6H PRN IV AGITATION Last administered on 01/08/17 00:52 ; Admin Dose 5 MG; Start 01/06/17 at 13:00 Levofloxacin/ Dextrose (Levaquin 500mg/ D5W 100 ml (Pmx)) 100 ml @ 100 mls/hr Q24H IVPB Last administered on 01/07/17 16:04; Admin Dose 100 MLS/HR; Start at 15:00 Diagnostic Test (Pha) (Accu-Chek) 1 ea 02 XX ; Start 01/08/17 at 02:00 Insulin Glargine (Lantus) 25 unit DAILY@20 SC ; Start 01/08/17 at 20:00 YOLETTE RODRIGUEZ NP January 08, 2017 13:37
--- NOTE | 2017-01-08 14:01 | CONS ---
Date/Time of Note Date/Time of Note DATE: 01/08/17 TIME: 13:57 Assessment/Plan Assessment/Plan Chief Complaint/Hosp Course IMPRESSION: 1. Positive troponin, assess significance.-no sig uptrend/likely demand event in settng fevers/tachy/resp distress 2. Abnormal electrocardiogram with ST depressions with tachycardia and positive troponin, likely indicative of coronary artery disease.-improved ecg findings with improved HR 3. Hypertension, uncontrolled mildly still 4. Dyslipidemia. 5. Diabetes mellitus. 6. Fevers to 104 documented here in the hospital.-Currently defervesced 7. Renal failure.-acute on chronic/ ? secondary to vasculitic syndrome 8. Lower extremity edema, assess for congestive heart failure/CHF-diastolic acute on chronic 9. Nausea and vomiting. 10. Chest pain with cough initially on admit 11.Resp failure s/p extubation 12. Bradycardia-to 40's.Now improved and tolerating BB 14.CHF-diastolic acute on chronic Recc: -Tele -serial ecg's -Continue asa/statin -Continue abx's and f/u cx data -Continue bronchodilators and steroids. -Follow volume status closely and continue lasix diuresis and follow resp status closely s/p extubation -Continue hydralazine/norvasc/coreg when patient able to take PO's or NGT has been replaced and thus will start clonidine TTS at this time in attempt to maintain reasonable BP control -Ongoing eval for vasculitic syndrome per rheum -Check LE venous EARL to assess for DVT -Lexiscan when MS improved/stable to assess significance of prior minimally positive troponin Problems: Consultation Date/Type/Reason Admit Date/Time Dec 15, 2016 at 11:20 Initial Consult Date 12/15/2016 Type of Consultation: Cardiology Reason for Consultation positive troponin Referring Provider: LEXII REED Exam/Review of Systems Vital Signs Vitals Vital Signs Date Time Temp Pulse Resp B/P Pulse Ox O2 Delivery O2 Flow Rate FiO2 01/08/17 12:50 77 01/08/17 11:20 97.9 20 128/71 98 01/08/17 08:00 Nasal Cannula 4.0 01/07/17 04:02 33 Intake and Output 01/07/17 01/07/17 01/08/17 15:00 23:00 07:00 Intake Total 362.5 ml 325 ml 900 ml Output Total 380 ml 600 ml Balance -17.5 ml 325 ml 300 ml Exam Review of Systems: CONSTITUTIONAL: No fevers, chills. PULMONARY: No sob CARDIOVASCULAR: No chest pain/palpitations GASTROINTESTINAL: No nausea/vomiting. GENITOURINARY: No hematuria/dysuria. MUSCULOSKELETAL: No myagias/arthalgias. PSYCHIATRIC: The patient denies depression. NEUROLOGIC: lethargic Constitutional: other (sleeping, easily arousable) Psych: no complaints Head: normocephalic ENMT: mucosa pink and moist Neck: jvd (9 cm water), supple Respiratory: diminished breath sounds (at bases/B) Cardiovascular: regular rate and rhythm Gastrointestinal: non-tender, soft Extremities: pitting pedal edema (assymetric) Neurological: lethargic Results Result Diagram: 01/08/17 0935 01/08/17 0935 Results 24 hrs Laboratory Tests Test 01/07/17 18:40 01/07/17 21:54 01/08/17 08:10 01/08/17 08:53 Bedside Glucose 121 157 50 L 100 Test 01/08/17 09:18 01/08/17 09:35 01/08/17 11:54 Bedside Glucose 95 71 White Blood Count 5.1 # Red Blood Count 3.05 L Hemoglobin 8.2 L Hematocrit 26.2 L Mean Corpuscular Volume 85.9 Mean Corpuscular Hemoglobin 26.9 L Mean Corpuscular Hemoglobin Concent 31.3 L Red Cell Distribution Width 13.5 Platelet Count 178 Mean Platelet Volume 11.2 H Neutrophils % 71.8 Lymphocytes % 12.4 L Monocytes % 9.1 Eosinophils % 6.1 Basophils % 0.0 Nucleated Red Blood Cells % 0.0 Neutrophils # 3.7 Lymphocytes # 0.6 L Monocytes # 0.5 Eosinophils # 0.3 Basophils # 0.0 Nucleated Red Blood Cells # 0.0 Sodium Level 140 Potassium Level 3.2 L Chloride Level 105 Carbon Dioxide Level 29 Anion Gap 9 # Blood Urea Nitrogen 24 H Creatinine 0.95 Glucose Level 75 Calcium Level 7.6 L Medications Medications Current Medications Ondansetron HCl (Zofran Inj) 4 mg Q6H PRN IV NAUSEA AND/OR VOMITING; Start at 13:00 Acetaminophen (Tylenol Tab) 650 mg Q6H PRN PO PAIN LEVEL 1-3 OR FEVER Last administered on 12/29/16 06:02; Admin Dose 650 MG; Start 12/15/16 at 13:00 Acetaminophen/ Hydrocodone Bitart ([place] (5/325)) 1 tab Q6H PRN PO PAIN LEVEL 4 -6 Last administered on 12/15/16 22:08; Admin Dose 1 TAB; Start 12/15/16 at 13: 00 Morphine Sulfate (morphine) 2 mg Q4H PRN IV PAIN LEVEL 7-10 Last administered on 01/08/17 01:53; Admin Dose 2 MG; Start 12/15/16 at 13:00 Magnesium Hydroxide (Milk Of Mag) 30 ml DAILY PRN PO CONSTIPATION Last administered on 01/02/17 02:07; Admin Dose 30 ML; Start 12/15/16 at 13:00 Bisacodyl (Dulcolax) 5 mg DAILY PRN PO CONSTIPATION Last administered on 17:44; Admin Dose 5 MG; Start 12/15/16 at 13:00 Famotidine (Pepcid) 20 mg Q12 PO Last administered on 01/07/17 21:35; Admin Dose 20 MG; Start 12/15/16 at 21:00 Aspirin (Aspirin) 325 mg DAILY PO Last administered on 01/07/17 08:09; Admin Dose 325 MG; Start 12/16/16 at 09:00 Atorvastatin Calcium (Lipitor) 80 mg QHS PO Last administered on 01/07/17 21: 35; Admin Dose 80 MG; Start 12/15/16 at 21:00; Status Future Hold Heparin Sodium (Porcine) (Heparin (5000 Units/0.5 ml)) 5,000 unit BID SC Last administered on 01/08/17 09:44; Admin Dose 5,000 UNIT; Start 12/15/16 at 21:00 Glucose (Glutose) 15 gm Q15M PRN PO DECREASED GLUCOSE; Start 12/15/16 at 14:00 Glucose (Glutose) 22.5 gm Q15M PRN PO DECREASED GLUCOSE; Start 12/15/16 at 14: 00 Glucagon (Glucagen) 1 mg Q15M PRN IM DECREASED GLUCOSE; Start 12/15/16 at 14:00 Glucose (Glutose) 15 gm Q15M PRN BUCCAL DECREASED GLUCOSE; Start 12/15/16 at 14 :00 Cholecalciferol (Vitamin D) 1,000 unit DAILY PO Last administered on 01/07/17 08:09; Admin Dose 1,000 UNIT; Start 12/16/16 at 09:00 Dextrose (D50w Syringe) 25 ml Q15M PRN IV Till BS 80 mg/dL or above x2 Last administered on 01/04/17 20:11; Admin Dose 25 ML; Start 12/18/16 at 14:00 Dextrose (D50w Syringe) 50 ml Q15M PRN IV Till BS 80 mg/dL or above x2 Last administered on 01/08/17 08:15; Admin Dose 50 ML; Start 12/18/16 at 14:00 Amlodipine Besylate (Norvasc) 5 mg DAILY PO Last administered on 01/07/17 08: 09; Admin Dose 5 MG; Start 12/21/16 at 09:00 Hydralazine HCl (Apresoline) 10 mg Q4H PRN IV sbp > 160 Last administered on 16:05; Admin Dose 10 MG; Start 12/22/16 at 06:30 Hydralazine HCl (Apresoline) 100 mg Q8 PO Last administered on 01/08/17 13:50 ; Admin Dose 100 MG; Start 01/01/17 at 14:00 Carvedilol (Coreg) 12.5 mg BID PO Last administered on 01/07/17 21:36; Admin Dose 12.5 MG; Start 01/04/17 at 21:00 Metoprolol Tartrate 5 mg 5 mg Q4H PRN IV HR>110 Last administered on 01/04/17 21:56; Admin Dose 5 MG; Start 01/04/17 at 19:30 Potassium Chloride/Dextrose (D5W + KCl 20 Meq) 1,000 ml @ 75 mls/hr [id number] IV Last administered on 01/08/17 13:50; Admin Dose 75 MLS/HR; Start 01/05/17 at 08:00 Clonidine HCl (Catapres-Tts 2 Patch) 1 patch Q7D TRANSDERM Last administered on 01/05/17 12:55; Admin Dose 1 PATCH; Start 01/05/17 at 12:00 Prednisone (Prednisone) 20 mg DAILY PO Last administered on 01/07/17 08:08; Admin Dose 20 MG; Start 01/07/17 at 09:00 Haloperidol (Haldol) 5 mg Q6H PRN IV AGITATION Last administered on 01/08/17t 00:52; Admin Dose 5 MG; Start 01/06/17 at 13:00 Diagnostic Test (Pha) (Accu-Chek) 1 02 XX ; Start 01/08/17 at 02:00 Insulin Glargine (Lantus) 25 unit DAILY@20 SC ; Start 01/08/17 at 20:00 VI ADAMES January 08, 2017 14:01
--- NOTE | 2017-01-08 15:27 | RADRPT ---
PROCEDURE: US Lower extremity Venous. CLINICAL INDICATION: Bilateral lower extremity edema TECHNIQUE: Multiple sonographic images of the bilateral lower extremity deep venous system was obt ained utilizing grayscale, color-flow, compressive sonography and doppler imaging with augmentation. The images were reviewed on a PACS workstation. COMPARISON: None. FINDINGS: There is normal compressibility and flow within the bilateral common femoral, femoral , posterior ti bial and popliteal veins. The right peroneal vein is not compressible. The left peroneal vein is patent. RPTAT: AA IMPRESSION: DVT in the right peroneal vein. A call report was made and the findings discussed with Willy Petit (R) at 01/08/2017 3:23:1 0 PM. .Cristino Dahl MD, Date Time Electronically viewed and signed by .Cristino Dahl MD, on 01/08/2017 15:26 .S/
[2017-01-08] MEDS: SOD CHLORIDE 0.9% 1,000 ML IV SCH (16:49)
[2017-01-08] MEDS ORDERED: HALOPERIDOL 5 MG INJ IM PRN (19:00)
[2017-01-08] MEDS: INSULIN GLARGINE [LANtus] 3 ML PEN SC SCH (20:59)
[2017-01-09] VITALS (12 sets, daily range): BP systolic 143–170; BP diastolic 70–84; PULSE 72–100; RESP 16–20
[2017-01-09] MEDS: SOD CHLORIDE 0.9% 1,000 ML IV SCH ×4 (01:00→22:57)
[2017-01-09] MEDS: ACCU-CHEK XX SCH (01:17)
--- NOTE | 2017-01-09 04:06 | CONS ---
DATE OF ADMISSION: 12/15/2016 DATE OF CONSULTATION: TYPE OF CONSULTATION: Neurology Thank you, Dr. Perez, for your kind referral for evaluation of lower extremity weakness. HISTORY OF PRESENT ILLNESS: The patient is a 41-year-old gentleman with past medical history of hypertension, dyslipidemia, diabetes, and obesity, who presented with pneumonia, sepsis, elevated troponins, acute kidney injury, required prolonged intubation, was admitted on 12/15/2016. By now, his medical problems, after extubation a few days ago, included hypoxic respiratory failure. He was intubated on 12/18/2016 and extubated on 01/04/2017. Acute kidney failure resolved. He still has diabetes, hypoglycemia, dyslipidemia. He had a positive DAISY with unclear clinical significance. Rheumatology saw the patient. He has been on steroids and has been tapered down. After extubation and after prolonged use of sedatives, lower extremity weakness was noticed. The patient had CK level 10,000 right now. On admission, it was ranging in the 200 to 300s. LABORATORY DATA: Most recent labs show BUN 24, creatinine 0.905, albumin 2.0. AST 124. The rest of liver function within normal limits. Hemoglobin 8.2, hematocrit 26, normal WBCs and platelets. On admission, DAISY titer was positive 1 to 160, HIV negative, double stranded DNA negative. Angiotensin converting enzymes negative. Cocci is negative. MEDICATIONS: 1. Insulin. 2. Prednisone 20, 3. Hydralazine. 4. Lopressor. 5. Renvela. 6. Norvasc. 7. He was on Atorvastatin which was discontinued yesterday night. He was taking 80 mg daily. ALLERGIES: IBUPROFEN. SOCIAL HISTORY: Denies alcohol, tobacco, drug use. FAMILY HISTORY: Noncontributory. PHYSICAL EXAMINATION: VITAL SIGNS: Temperature 98.2, pulse 71, respirations 20, blood pressure 106/ 82. GENERAL: Not in acute distress, lying in bed. HEENT: Normocephalic, atraumatic head. NECK: No carotid bruits. No thyromegaly. LUNGS: Clear to auscultation bilaterally. CARDIAC: Normal cardiac rhythm and sounds. ABDOMEN: Soft. 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 The patient has tenderness to palpation of the muscles in bilateral biceps and more so in bilateral muscles of the thighs. NEUROLOGIC: He is awake, alert, and oriented x2 with fluent speech. Cranial nerve examination shows intact visual borrero bilaterally. Pupils sluggish about 3 mm bilaterally. Extraocular movements intact without nystagmus. Symmetrical face. Preserved facial strength and sensation. Tongue is in midline. Palate elevates symmetrically. Motor strength examination shows mild proximal weakness in the bilateral upper extremities, about 4- 3+/5 on the arm elevation. The rest preserved in upper extremities. Lower extremities are weaker, about 2+, worse proximally. Distally about 3. Normal tone. Sensory examination shows diminution of perception of pinprick in glove stocking distribution including bilateral hands and feet to mid foreleg level. Deep tendon reflexes 1+ upper extremities, absent in lower extremities. No response to plantar stimulation. Coordination preserved on [id number] testing. No dysmetria or tremor. IMPRESSION: Lower extremity more than upper extremity weakness, worse proximally. Elevated creatine kinase level. 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 ICU myopathy is supposed to get better with time and physical therapy. The patient is being tapered off steroids already, and statin was discontinued. Continue physical therapy. The patient does have diabetic neuropathy as well. He denied any spinal pain. No bowel or bladder problems. He has no sensory level on the trunk. Thank you very much for this interesting consultation. Dictated By: DOMINGUEZ VALERO/SUNDEEP Conf#: [id number] DID#: [id number] MTDD
[2017-01-09] MEDS: FUROSEMIDE 20 MG INJ IV SCH ×2 (06:15→17:01)
[2017-01-09 06:17] LABS: ALBUMIN 1.8 g/dl (3.3-4.9)
[2017-01-09 06:20] LABS: BILIRUBIN,INDIRECT 0.3 mg/dl (0-1.1); BILIRUBIN,TOTAL 0.3 mg/dl (0.2-1.3); TOTAL PROTEIN 3.8 g/dl (6.1-8.1)
[2017-01-09] MEDS ORDERED: POTASSIUM CHLORIDE 250 ML IVPB ONE ×2 (07:30→10:30)
[2017-01-09] MEDS: INSULIN ASPART [NOVOLOG] 3 ML PEN SC SCH ×4 (07:55→21:05)
[2017-01-09] MEDS: POTASSIUM CHLORIDE 250 ML IVPB SCH ×2 (08:00→09:20)
[2017-01-09 08:16] LABS: ADD SCAN DIFF NO
[2017-01-09 08:21] LABS: EOSINOPHILS # 0.3 10^3/ul (0.0-0.5); EOSINOPHILS % 5.9 % (0.0-7.0); HEMATOCRIT 27.6 % (42.0-52.0); HEMOGLOBIN 8.8 g/dl (14.0-18.0); LYMPHOCYTES # 0.9 10^3/ul (0.8-2.9); LYMPHOCYTES % 17.2 % (15.0-51.0); MEAN CORPUSCULAR HEMOGLOBIN 27.5 pg (29.0-33.0); MEAN CORPUSCULAR HGB CONC 31.9 g/dl (32.0-37.0); MEAN CORPUSCULAR VOLUME 86.3 fl (82.0-101.0); MEAN PLATELET VOLUME 12.1 fl (7.4-10.4); MONOCYTE # 0.5 10^3/ul (0.3-0.9); MONOCYTES % 8.7 % (0.0-11.0); NEUTROPHIL # 3.7 10^3/ul (1.6-7.5); NEUTROPHILS % 67.5 % (39.0-77.0); PLATELET COUNT 186 10^3/UL (140-415); RED CELL DISTRIBUTION WIDTH 13.7 % (11.5-14.5); WHITE BLOOD COUNT 5.4 10^3/ul (4.8-10.8)
[2017-01-09] MEDS: predniSONE 20 MG TAB PO SCH (08:22)
[2017-01-09] MEDS: SEVELAMER CARBONATE 0.8 GM PKT PO SCH ×3 (08:22→17:00)
[2017-01-09] MEDS: FAMOTIDINE 20 MG TAB PO SCH ×2 (08:22→21:13)
[2017-01-09] MEDS: ASPIRIN 325 MG TAB PO SCH (08:22)
[2017-01-09] MEDS: CHOLECALCIFEROL 1,000 UNIT TAB PO SCH (08:22)
[2017-01-09] MEDS: AMLODIPINE 5 MG TAB PO SCH (08:23)
[2017-01-09] MEDS: HEPARIN 5,000 UNIT/0.5 ML VIAL SC SCH ×2 (08:27→21:06)
[2017-01-09 08:35] LABS: CALCIUM 7.8 mg/dl (8.4-10.2); CREATININE 0.85 mg/dl (0.61-1.24); POTASSIUM 3.4 mmol/L (3.5-5.1)
--- NOTE | 2017-01-09 09:26 | CONS ---
Date/Time of Note Date/Time of Note DATE: 01/09/17 TIME: 09:24 Assessment/Plan Assessment/Plan Additional Assessment/Plan 1. Positive troponin, assess significance.-no sig uptrend/likely demand event in settng fevers/tachy/resp distress - stable now 2. Abnormal electrocardiogram with ST depressions with tachycardia and positive troponin, likely indicative of coronary artery disease.-improved ecg findings with improved HR - no tachy-bradyu arrhythmia on tele 3. Hypertension, uncontrolled mildly still - well Rx, con't to adjust Rx now 4. Dyslipidemia. 5. Diabetes mellitus- on meds, keep euglycemic 6. Fevers to 104 documented here in the hospital.-Currently defervesced - no new episodes 7. Renal failure.-acute on chronic/ ? secondary to vasculitic syndrome 8. Lower extremity edema, assess for congestive heart failure/CHF-diastolic acute on chronic 9. Nausea and vomiting. 10. Chest pain with cough initially on admit 11.Resp failure s/p extubation 12. Bradycardia-to 40's.Now improved and tolerating BB 14.CHF-diastolic acute on chronic Consultation Date/Type/Reason Admit Date/Time Dec 15, 2016 at 11:20 Type of Consultation: Cardiology Referring Provider: LEXII REED 24 HR Interval Summary Free Text/Dictation No acute events - con't to keep euglycemic. ROS: No fever, no chills, no nausea, no vomiting, no diarrhea/constipation No recent weight changes No chest pain, no PND, no orthopnea No dizziness, blurred vision No thirst, no heat or cold intolerance Exam/Review of Systems Vital Signs Vitals Vital Signs Date Time Temp Pulse Resp B/P Pulse Ox O2 Delivery O2 Flow Rate FiO2 01/09/17 08:16 85 01/09/17 07:01 98.4 19 170/84 98 01/08/17 23:30 4.0 01/08/17 19:15 Nasal Cannula 01/07/17 04:02 33 Intake and Output 01/08/17 01/08/17 01/09/17 15:00 23:00 07:00 Intake Total 700 ml 1400 ml Output Total 600 ml 950 ml Balance 100 ml 450 ml Exam General: WN/WD/NAD, AOx 2-3 HEENT: Unicetric/atraumatic/EOMI (follows commands) NECK: JVD elevated, no thyromegaly Lymph: no lymphadenopathy HEART: regular with no S3, II/ systolic murmur at apex LUNGS: Coarse sounds ABD: soft, NT, ND, +BS : Intact Neuro: non focal SKIN: chronic changes EXT: trace edema Results Result Diagram: 01/09/17 0505 01/09/17 0505 Results 24 hrs Laboratory Tests Test 01/08/17 09:35 01/08/17 11:54 01/08/17 14:00 01/08/17 16:48 White Blood Count 5.1 # Red Blood Count 3.05 L Hemoglobin 8.2 L Hematocrit 26.2 L Mean Corpuscular Volume 85.9 Mean Corpuscular Hemoglobin 26.9 L Mean Corpuscular Hemoglobin Concent 31.3 L Red Cell Distribution Width 13.5 Platelet Count 178 Mean Platelet Volume 11.2 H Neutrophils % 71.8 Lymphocytes % 12.4 L Monocytes % 9.1 Eosinophils % 6.1 Basophils % 0.0 Nucleated Red Blood Cells % 0.0 Neutrophils # 3.7 Lymphocytes # 0.6 L Monocytes # 0.5 Eosinophils # 0.3 Basophils # 0.0 Nucleated Red Blood Cells # 0.0 Sodium Level 140 Potassium Level 3.2 L Chloride Level 105 Carbon Dioxide Level 29 Anion Gap 9 # Blood Urea Nitrogen 24 H Creatinine 0.95 Glucose Level 75 Calcium Level 7.6 L Bedside Glucose 71 83 Creatine Kinase 36677 H Test 01/08/17 20:43 01/09/17 05:05 01/09/17 08:14 Bedside Glucose 102 88 White Blood Count 5.4 Red Blood Count 3.20 L Hemoglobin 8.8 L Hematocrit 27.6 L Mean Corpuscular Volume 86.3 Mean Corpuscular Hemoglobin 27.5 L Mean Corpuscular Hemoglobin Concent 31.9 L Red Cell Distribution Width 13.7 Platelet Count 186 Mean Platelet Volume 12.1 H Neutrophils % 67.5 Lymphocytes % 17.2 Monocytes % 8.7 Eosinophils % 5.9 Basophils % 0.0 Nucleated Red Blood Cells % 0.0 Neutrophils # 3.7 Lymphocytes # 0.9 Monocytes # 0.5 Eosinophils # 0.3 Basophils # 0.0 Nucleated Red Blood Cells # 0.0 Sodium Level 135 Potassium Level 3.4 L Chloride Level 108 Carbon Dioxide Level 26 Anion Gap 4 L Blood Urea Nitrogen 20 Creatinine 0.85 Glucose Level 72 Calcium Level 7.8 L Total Bilirubin 0.3 Direct Bilirubin 0.00 Indirect Bilirubin 0.3 Aspartate Amino Transf (AST/SGOT) 441 H Alanine Aminotransferase (ALT/SGPT) 238 H Alkaline Phosphatase 57 Creatine Kinase 44672 H Total Protein 3.8 L Albumin 1.8 L Medications Medications Current Medications Ondansetron HCl (Zofran Inj) 4 mg Q6H PRN IV NAUSEA AND/OR VOMITING; Start at 13:00 Acetaminophen (Tylenol Tab) 650 mg Q6H PRN PO PAIN LEVEL 1-3 OR FEVER Last administered on 12/29/16 06:02; Admin Dose 650 MG; Start 12/15/16 at 13:00 Acetaminophen/ Hydrocodone Bitart ([place] (5/325)) 1 tab Q6H PRN PO PAIN LEVEL 4 -6 Last administered on 12/15/16 22:08; Admin Dose 1 TAB; Start 12/15/16 at 13: 00 Morphine Sulfate (morphine) 2 mg Q4H PRN IV PAIN LEVEL 7-10 Last administered on 01/08/17 01:53; Admin Dose 2 MG; Start 12/15/16 at 13:00 Magnesium Hydroxide (Milk Of Mag) 30 ml DAILY PRN PO CONSTIPATION Last administered on 01/02/17 02:07; Admin Dose 30 ML; Start 12/15/16 at 13:00 Bisacodyl (Dulcolax) 5 mg DAILY PRN PO CONSTIPATION Last administered on 17:44; Admin Dose 5 MG; Start 12/15/16 at 13:00 Famotidine (Pepcid) 20 mg Q12 PO Last administered on 01/09/17 08:22; Admin Dose 20 MG; Start 12/15/16 at 21:00 Aspirin (Aspirin) 325 mg DAILY PO Last administered on 01/09/17 08:22; Admin Dose 325 MG; Start 12/16/16 at 09:00 Atorvastatin Calcium (Lipitor) 80 mg QHS PO Last administered on 01/07/17 21: 35; Admin Dose 80 MG; Start 12/15/16 at 21:00; Status Future Hold Heparin Sodium (Porcine) (Heparin (5000 Units/0.5 ml)) 5,000 unit BID SC Last administered on 01/09/17 08:27; Admin Dose 5,000 UNIT; Start 12/15/16 at 21:00 Glucose (Glutose) 15 gm Q15M PRN PO DECREASED GLUCOSE; Start 12/15/16 at 14:00 Glucose (Glutose) 22.5 gm Q15M PRN PO DECREASED GLUCOSE; Start 12/15/16 at 14: 00 Glucagon (Glucagen) 1 mg Q15M PRN IM DECREASED GLUCOSE; Start 12/15/16 at 14:00 Glucose (Glutose) 15 gm Q15M PRN BUCCAL DECREASED GLUCOSE; Start 12/15/16 at 14 :00 Cholecalciferol (Vitamin D) 1,000 unit DAILY PO Last administered on 01/09/17 08:22; Admin Dose 1,000 UNIT; Start 12/16/16 at 09:00 Dextrose (D50w Syringe) 25 ml Q15M PRN IV Till BS 80 mg/dL or above x2 Last administered on 01/04/17 20:11; Admin Dose 25 ML; Start 12/18/16 at 14:00 Dextrose (D50w Syringe) 50 ml Q15M PRN IV Till BS 80 mg/dL or above x2 Last administered on 01/08/17 08:15; Admin Dose 50 ML; Start 12/18/16 at 14:00 Amlodipine Besylate (Norvasc) 5 mg DAILY PO Last administered on 01/09/17 08: 23; Admin Dose 5 MG; Start 12/21/16 at 09:00 Hydralazine HCl (Apresoline) 10 mg Q4H PRN IV sbp > 160 Last administered on 16:05; Admin Dose 10 MG; Start 12/22/16 at 06:30 Hydralazine HCl (Apresoline) 100 mg Q8 PO Last administered on 01/09/17 06:15 ; Admin Dose 100 MG; Start 01/01/17 at 14:00 Carvedilol (Coreg) 12.5 mg BID PO Last administered on 01/09/17 08:23; Admin Dose 12.5 MG; Start 01/04/17 at 21:00 Metoprolol Tartrate (Lopressor) 5 mg Q4H PRN IV HR>110 Last administered on 21:56; Admin Dose 5 MG; Start 01/04/17 at 19:30 Clonidine HCl (Catapres-Tts 2 Patch) 1 patch Q7D TRANSDERM Last administered on 01/05/17 12:55; Admin Dose 1 PATCH; Start 01/05/17 at 12:00 Prednisone (Prednisone) 20 mg DAILY PO Last administered on 01/09/17 08:22; Admin Dose 20 MG; Start 01/07/17 at 09:00 Diagnostic Test (Pha) (Accu-Chek) 1 ea 02 XX ; Start 01/08/17 at 02:00 Insulin Glargine 25 unit 25 unit DAILY@20 SC Last administered on 01/08/17 20: 59; Admin Dose 25 UNIT; Start 01/08/17 at 20:00 Sodium Chloride (NS) 1,000 ml @ 125 mls/hr Q8H IV Last administered on 06:18; Admin Dose 125 MLS/HR; Start 01/08/17 at 17:00 Haloperidol 3 mg 3 mg Q6H PRN IM AGITATION; Start 01/08/17 at 19:00 Potassium Chloride (KCl 40 MEQ/250 ML NS) 250 ml @ 62.5 mls/hr Q4H IVPB Last administered on 01/09/17 09:20; Admin Dose 62.5 MLS/HR; Start 01/09/17 at 08:00 ; Stop 01/09/17 at 15:59 DELIA BILLY MD January 09, 2017 09:26
--- NOTE | 2017-01-09 10:56 | PN ---
Date/Time of Note Date/Time of Note DATE: 01/09/17 TIME: 10:54 Assessment/Plan VTE Prophylaxis VTE Prophylaxis Intervention: heparin Lines/Catheters IV C[facility]ter Type (from [facility]): PICC Line Central line still needed: Yes Urinary Cath still in place: No Assessment/Plan Assessment/Plan A/P: 41 M with: 1. Sepsis secondary to underlying community-acquired pneumonia with septic shock - resolved now. 2. Acute hypoxic respiratory failure. Most probably secondary to underlying pneumonia Patient got intubated on 12/18/2016, extubated on 01/04/17. Now stable on room air 3. Elevated troponins. Most probably a type 2 event from underlying sepsis and underlying acute kidney injury. 4. Acute kidney injury: resolved 5. Type 2 diabetes mellitus. Poor home control. A1C is high (send out) : Current control too tight / Patient with hypoglycemia this am / reduce lantus 6. Dyslipidemia. Continue statins. 7. Essential hypertension. Continue antihypertensives. 8. Microcytic, hypochromic anemia. Etiology unclear r/o occult blood loss. Iron panel showing iron deficiency. Continue iron supplements. 9. Vitamin D deficiency. Continue supplements. 10. Positive DAISY with unclear clinical significance. Continue to monitor ,f/u rheum rec's. Taper down steroids. 11. 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 12. Cocaine abuse: needs counselling when stable DVT prophylaxis. Subcutaneous heparin. Gastrointestinal prophylaxis. Histamine 2 receptor blockers. Continue antibiotics per ID. Subjective 24 Hr Interval Summary Free Text/Dictation Patient seen. His mentation continues to improve daily. Much more coherent. Still somewhat confused however, desiring discharge. Lower extremity weakness still present. Exam/Review of Systems Vital Signs Vitals Vital Signs Date Time Temp Pulse Resp B/P Pulse Ox O2 Delivery O2 Flow Rate FiO2 01/09/17 08:16 85 01/09/17 07:01 98.4 19 170/84 98 01/08/17 23:30 4.0 01/08/17 19:15 Nasal Cannula 01/07/17 04:02 33 Intake and Output 01/08/17 01/08/17 01/09/17 15:00 23:00 07:00 Intake Total 700 ml 1400 ml Output Total 600 ml 950 ml Balance 100 ml 450 ml Exam GENERAL: This is a morbidly obese male lying in bed, more alert, intermittent confused speech HEENT: Head normocephalic and atraumatic. Eyes: Anicteric sclerae. Conjunctivae clear. ENT: Nasal septum is midline. Oral mucosa is dry. NECK: Short with increased neck circumference. RESPIRATORY: Diminished breath sounds, right less than left, stable on nasal cannula. CARDIAC: Regular rate and rhythm. S1, S2 heard. ABDOMEN: Soft, nontender and nondistended. Bowel sounds positive in all 4 quadrants. EXTREMITIES: No cyanosis, no clubbing. B/L LE edema. Pedal pulses palpable. Status post left great toe amputation. NEUROLOGIC: Patient unable to raise either lower extremity against gravity, he can barely move them from [id number], left seems slightly stronger than right. Results Result Diagram: 01/09/17 0505 01/09/17 0505 Results 24 hrs Laboratory Tests Test 01/08/17 11:54 01/08/17 14:00 01/08/17 16:48 01/08/17 20:43 Bedside Glucose 71 83 102 Creatine Kinase 68443 H Test 01/09/17 05:05 01/09/17 08:14 White Blood Count 5.4 Red Blood Count 3.20 L Hemoglobin 8.8 L Hematocrit 27.6 L Mean Corpuscular Volume 86.3 Mean Corpuscular Hemoglobin 27.5 L Mean Corpuscular Hemoglobin Concent 31.9 L Red Cell Distribution Width 13.7 Platelet Count 186 Mean Platelet Volume 12.1 H Neutrophils % 67.5 Lymphocytes % 17.2 Monocytes % 8.7 Eosinophils % 5.9 Basophils % 0.0 Nucleated Red Blood Cells % 0.0 Neutrophils # 3.7 Lymphocytes # 0.9 Monocytes # 0.5 Eosinophils # 0.3 Basophils # 0.0 Nucleated Red Blood Cells # 0.0 Sodium Level 135 Potassium Level 3.4 L Chloride Level 108 Carbon Dioxide Level 26 Anion Gap 4 L Blood Urea Nitrogen 20 Creatinine 0.85 Glucose Level 72 Calcium Level 7.8 L Total Bilirubin 0.3 Direct Bilirubin 0.00 Indirect Bilirubin 0.3 Aspartate Amino Transf (AST/SGOT) 441 H Alanine Aminotransferase (ALT/SGPT) 238 H Alkaline Phosphatase 57 Creatine Kinase 76980 H Total Protein 3.8 L Albumin 1.8 L Bedside Glucose 88 Medications Medications Current Medications Ondansetron HCl (Zofran Inj) 4 mg Q6H PRN IV NAUSEA AND/OR VOMITING; Start at 13:00 Acetaminophen (Tylenol Tab) 650 mg Q6H PRN PO PAIN LEVEL 1-3 OR FEVER Last administered on 12/29/16 06:02; Admin Dose 650 MG; Start 12/15/16 at 13:00 Acetaminophen/ Hydrocodone Bitart ([place] (5/325)) 1 tab Q6H PRN PO PAIN LEVEL 4 -6 Last administered on 12/15/16 22:08; Admin Dose 1 TAB; Start 12/15/16 at 13: 00 Morphine Sulfate (morphine) 2 mg Q4H PRN IV PAIN LEVEL 7-10 Last administered on 01/08/17 01:53; Admin Dose 2 MG; Start 12/15/16 at 13:00 Magnesium Hydroxide (Milk Of Mag) 30 ml DAILY PRN PO CONSTIPATION Last administered on 01/02/17 02:07; Admin Dose 30 ML; Start 12/15/16 at 13:00 Bisacodyl (Dulcolax) 5 mg DAILY PRN PO CONSTIPATION Last administered on 17:44; Admin Dose 5 MG; Start 12/15/16 at 13:00 Famotidine (Pepcid) 20 mg Q12 PO Last administered on 01/09/17 08:22; Admin Dose 20 MG; Start 12/15/16 at 21:00 Aspirin (Aspirin) 325 mg DAILY PO Last administered on 01/09/17 08:22; Admin Dose 325 MG; Start 12/16/16 at 09:00 Atorvastatin Calcium (Lipitor) 80 mg QHS PO Last administered on 01/07/17 21: 35; Admin Dose 80 MG; Start 12/15/16 at 21:00; Status Future Hold Heparin Sodium (Porcine) (Heparin (5000 Units/0.5 ml)) 5,000 unit BID SC Last administered on 01/09/17 08:27; Admin Dose 5,000 UNIT; Start 12/15/16 at 21:00 Glucose (Glutose) 15 gm Q15M PRN PO DECREASED GLUCOSE; Start 12/15/16 at 14:00 Glucose (Glutose) 22.5 gm Q15M PRN PO DECREASED GLUCOSE; Start 12/15/16 at 14: 00 Glucagon (Glucagen) 1 mg Q15M PRN IM DECREASED GLUCOSE; Start 12/15/16 at 14:00 Glucose (Glutose) 15 gm Q15M PRN BUCCAL DECREASED GLUCOSE; Start 12/15/16 at 14 :00 Cholecalciferol (Vitamin D) 1,000 unit DAILY PO Last administered on 01/09/17 08:22; Admin Dose 1,000 UNIT; Start 12/16/16 at 09:00 Dextrose (D50w Syringe) 25 ml Q15M PRN IV Till BS 80 mg/dL or above x2 Last administered on 01/04/17 20:11; Admin Dose 25 ML; Start 12/18/16 at 14:00 Dextrose (D50w Syringe) 50 ml Q15M PRN IV Till BS 80 mg/dL or above x2 Last administered on 01/08/17 08:15; Admin Dose 50 ML; Start 12/18/16 at 14:00 Amlodipine Besylate (Norvasc) 5 mg DAILY PO Last administered on 01/09/17 08: 23; Admin Dose 5 MG; Start 12/21/16 at 09:00 Hydralazine HCl (Apresoline) 10 mg Q4H PRN IV sbp > 160 Last administered on 16:05; Admin Dose 10 MG; Start 12/22/16 at 06:30 Hydralazine HCl (Apresoline) 100 mg Q8 PO Last administered on 01/09/17 06:15 ; Admin Dose 100 MG; Start 01/01/17 at 14:00 Carvedilol (Coreg) 12.5 mg BID PO Last administered on 01/09/17 08:23; Admin Dose 12.5 MG; Start 01/04/17 at 21:00 Metoprolol Tartrate (Lopressor) 5 mg Q4H PRN IV HR>110 Last administered on 21:56; Admin Dose 5 MG; Start 01/04/17 at 19:30 Clonidine HCl (Catapres-Tts 2 Patch) 1 patch Q7D TRANSDERM Last administered on 01/05/17 12:55; Admin Dose 1 PATCH; Start 01/05/17 at 12:00 Prednisone (Prednisone) 20 mg DAILY PO Last administered on 01/09/17 08:22; Admin Dose 20 MG; Start 01/07/17 at 09:00 Diagnostic Test (Pha) (Accu-Chek) 1 02 XX ; Start 01/08/17 at 02:00 Insulin Glargine 25 unit 25 unit DAILY@20 SC Last administered on 01/08/17 20: 59; Admin Dose 25 UNIT; Start 01/08/17 at 20:00 Sodium Chloride (NS) 1,000 ml @ 125 mls/hr Q8H IV Last administered on 06:18; Admin Dose 125 MLS/HR; Start 01/08/17 at 17:00 Haloperidol 3 mg 3 mg Q6H PRN IM AGITATION; Start 01/08/17 at 19:00 Potassium Chloride (KCl 40 MEQ/250 ML NS) 250 ml @ 62.5 mls/hr ONCE ONCE IVPB Last administered on 01/09/17 10:18; Admin Dose 62.5 MLS/HR; Start 01/09/17 at 10:30; Stop 01/09/17 at 14:29 LEXII REED January 09, 2017 10:56
--- NOTE | 2017-01-09 12:08 | CONS ---
Date/Time of Note Date/Time of Note DATE: 01/09/17 TIME: 12:06 Assessment/Plan Assessment/Plan Additional Assessment/Plan Assessment recommendations; 1. Patient admitted with respiratory failure due to acute renal failure with marked improvement overall. 2. Left peroneal vein DVT. 3. Underlying obesity. Continue current treatment. Assess patient for discharge. Peroneal vein DVT may not require anticoagulation and may resolve spontaneously. Consultation Date/Type/Reason Admit Date/Time Dec 15, 2016 at 11:20 Type of Consultation: Pulmonary Referring Provider: LEXII REED 24 HR Interval Summary Free Text/Dictation Patient condition is stable. Wants to go home. Denies any shortness of breath , chest pain, wheezing. Complains of mild lower extremity edema. But denies any leg pain. Joo; young male, awake alert currently in no distress. Exam/Review of Systems Vital Signs Vitals Vital Signs Date Time Temp Pulse Resp B/P Pulse Ox O2 Delivery O2 Flow Rate FiO2 01/09/17 11:04 98.2 78 20 170/84 98 01/09/17 09:15 Nasal Cannula 4.0 01/07/17 04:02 33 Intake and Output 01/08/17 01/08/17 01/09/17 15:00 23:00 07:00 Intake Total 700 ml 1400 ml Output Total 600 ml 950 ml Balance 100 ml 450 ml Exam HEENT examination; supple neck, no JVD. No lymphadenopathy. Midline trachea. No thyromegaly. Patient has good dentition. Pupils are midsize and reactive to light. Chest examination; clear to auscultation. S1-S2 audible, no murmurs. Regular rhythm. Abdomen examination; soft, nontender, no organomegaly. Bowel sounds audible. Extremity exam; trace lower extremity pitting edema bilaterally. No calf tenderness. [employer] examination; no focal deficit. Results Result Diagram: 01/09/17 0505 01/09/17 0505 Results 24 hrs Laboratory Tests Test 01/08/17 14:00 01/08/17 16:48 01/08/17 20:43 01/09/17 05:05 Creatine Kinase 71892 H 40823 H Bedside Glucose 83 102 White Blood Count 5.4 Red Blood Count 3.20 L Hemoglobin 8.8 L Hematocrit 27.6 L Mean Corpuscular Volume 86.3 Mean Corpuscular Hemoglobin 27.5 L Mean Corpuscular Hemoglobin Concent 31.9 L Red Cell Distribution Width 13.7 Platelet Count 186 Mean Platelet Volume 12.1 H Neutrophils % 67.5 Lymphocytes % 17.2 Monocytes % 8.7 Eosinophils % 5.9 Basophils % 0.0 Nucleated Red Blood Cells % 0.0 Neutrophils # 3.7 Lymphocytes # 0.9 Monocytes # 0.5 Eosinophils # 0.3 Basophils # 0.0 Nucleated Red Blood Cells # 0.0 Sodium Level 135 Potassium Level 3.4 L Chloride Level 108 Carbon Dioxide Level 26 Anion Gap 4 L Blood Urea Nitrogen 20 Creatinine 0.85 Glucose Level 72 Calcium Level 7.8 L Total Bilirubin 0.3 Direct Bilirubin 0.00 Indirect Bilirubin 0.3 Aspartate Amino Transf (AST/SGOT) 441 H Alanine Aminotransferase (ALT/SGPT) 238 H Alkaline Phosphatase 57 Total Protein 3.8 L Albumin 1.8 L Test 01/09/17 08:14 Bedside Glucose 88 Medications Medications Current Medications Ondansetron HCl (Zofran Inj) 4 mg Q6H PRN IV NAUSEA AND/OR VOMITING; Start at 13:00 Acetaminophen (Tylenol Tab) 650 mg Q6H PRN PO PAIN LEVEL 1-3 OR FEVER Last administered on 12/29/16 06:02; Admin Dose 650 MG; Start 12/15/16 at 13:00 Acetaminophen/ Hydrocodone Bitart ([place] (5/325)) 1 tab Q6H PRN PO PAIN LEVEL 4 -6 Last administered on 12/15/16 22:08; Admin Dose 1 TAB; Start 12/15/16 at 13: 00 Morphine Sulfate (morphine) 2 mg Q4H PRN IV PAIN LEVEL 7-10 Last administered on 01/08/17 01:53; Admin Dose 2 MG; Start 12/15/16 at 13:00 Magnesium Hydroxide (Milk Of Mag) 30 ml DAILY PRN PO CONSTIPATION Last administered on 01/02/17 02:07; Admin Dose 30 ML; Start 12/15/16 at 13:00 Bisacodyl (Dulcolax) 5 mg DAILY PRN PO CONSTIPATION Last administered on 17:44; Admin Dose 5 MG; Start 12/15/16 at 13:00 Famotidine (Pepcid) 20 mg Q12 PO Last administered on 01/09/17 08:22; Admin Dose 20 MG; Start 12/15/16 at 21:00 Aspirin (Aspirin) 325 mg DAILY PO Last administered on 01/09/17 08:22; Admin Dose 325 MG; Start 12/16/16 at 09:00 Atorvastatin Calcium (Lipitor) 80 mg QHS PO Last administered on 01/07/17 21: 35; Admin Dose 80 MG; Start 12/15/16 at 21:00; Status Future Hold Heparin Sodium (Porcine) (Heparin (5000 Units/0.5 ml)) 5,000 unit BID SC Last administered on 01/09/17 08:27; Admin Dose 5,000 UNIT; Start 12/15/16 at 21:00 Glucose (Glutose) 15 gm Q15M PRN PO DECREASED GLUCOSE; Start 12/15/16 at 14:00 Glucose (Glutose) 22.5 gm Q15M PRN PO DECREASED GLUCOSE; Start 12/15/16 at 14: 00 Glucagon (Glucagen) 1 mg Q15M PRN IM DECREASED GLUCOSE; Start 12/15/16 at 14:00 Glucose (Glutose) 15 gm Q15M PRN BUCCAL DECREASED GLUCOSE; Start 12/15/16 at 14 :00 Cholecalciferol (Vitamin D) 1,000 unit DAILY PO Last administered on 01/09/17 08:22; Admin Dose 1,000 UNIT; Start 12/16/16 at 09:00 Dextrose (D50w Syringe) 25 ml Q15M PRN IV Till BS 80 mg/dL or above x2 Last administered on 01/04/17 20:11; Admin Dose 25 ML; Start 12/18/16 at 14:00 Dextrose (D50w Syringe) 50 ml Q15M PRN IV Till BS 80 mg/dL or above x2 Last administered on 01/08/17 08:15; Admin Dose 50 ML; Start 12/18/16 at 14:00 Amlodipine Besylate (Norvasc) 5 mg DAILY PO Last administered on 01/09/17 08: 23; Admin Dose 5 MG; Start 12/21/16 at 09:00 Hydralazine HCl (Apresoline) 10 mg Q4H PRN IV sbp > 160 Last administered on 16:05; Admin Dose 10 MG; Start 12/22/16 at 06:30 Hydralazine HCl (Apresoline) 100 mg Q8 PO Last administered on 01/09/17 06:15 ; Admin Dose 100 MG; Start 01/01/17 at 14:00 Carvedilol (Coreg) 12.5 mg BID PO Last administered on 01/09/17 08:23; Admin Dose 12.5 MG; Start 01/04/17 at 21:00 Metoprolol Tartrate (Lopressor) 5 mg Q4H PRN IV HR>110 Last administered on 21:56; Admin Dose 5 MG; Start 01/04/17 at 19:30 Clonidine HCl (Catapres-Tts 2 Patch) 1 patch Q7D TRANSDERM Last administered on 01/05/17 12:55; Admin Dose 1 PATCH; Start 01/05/17 at 12:00 Diagnostic Test (Pha) (Accu-Chek) 1 ea 02 XX ; Start 01/08/17 at 02:00 Insulin Glargine 25 unit 25 unit DAILY@20 SC Last administered on 01/08/17 20: 59; Admin Dose 25 UNIT; Start 01/08/17 at 20:00 Sodium Chloride (NS) 1,000 ml @ 125 mls/hr Q8H IV Last administered on 06:18; Admin Dose 125 MLS/HR; Start 01/08/17 at 17:00 Haloperidol 3 mg 3 mg Q6H PRN IM AGITATION; Start 01/08/17 at 19:00 Potassium Chloride (KCl 40 MEQ/250 ML NS) 250 ml @ 62.5 mls/hr ONCE ONCE IVPB Last administered on 01/09/17 10:18; Admin Dose 62.5 MLS/HR; Start 01/09/17 at 10:30; Stop 01/09/17 at 14:29 JESS STALLINGS January 09, 2017 12:08
--- NOTE | 2017-01-09 13:36 | CONS ---
Date/Time of Note Date/Time of Note DATE: 01/09/17 TIME: 13:34 Assessment/Plan Assessment/Plan Chief Complaint/Hosp Course SUBJECTIVE: The patient is awake, looks comfortable, he is retaining urine, requires straight cath INDWELLINGS: PICC line PHYSICAL EXAMINATION: GENERAL: Obese, well-developed, middle-aged man who is awake, confused , in no distress. HEENT: Head atraumatic, normocephalic. Sclerae anicteric. Buccal mucosa dry. NECK: Supple. CHEST: Rise symmetrical. Breath sounds with scattered crackles. HEART: S1, S2. ABDOMEN: Soft, bowel tones present. EXTREMITIES: Without cyanosis. Bilateral trace edema. ASSESSMENT: 1. S/p PNA/acute respiratory failure. 2. Urinary retention. 3. Diabetes. 4. Morbid obesity. 5. Encephalopathy==> resolving. 6. Status post urinary tract infection and acute kidney injury. 7. RLE DVT PLAN: The patient remains stable, off abx, will add Flomax, continue monitoring PVR, straight cath prn DW staff Problems: Consultation Date/Type/Reason Admit Date/Time Dec 15, 2016 at 11:20 Type of Consultation: ID Referring Provider: LEXII REED Exam/Review of Systems Vital Signs Vitals Vital Signs Date Time Temp Pulse Resp B/P Pulse Ox O2 Delivery O2 Flow Rate FiO2 01/09/17 12:15 87 01/09/17 11:04 98.2 20 170/84 98 01/09/17 09:15 Nasal Cannula 4.0 01/07/17 04:02 33 Intake and Output 01/08/17 01/08/17 01/09/17 15:00 23:00 07:00 Intake Total 700 ml 1400 ml Output Total 600 ml 950 ml Balance 100 ml 450 ml Results Result Diagram: 01/09/17 0505 01/09/17 0505 Results 24 hrs Laboratory Tests Test 01/08/17 14:00 01/08/17 16:48 01/08/17 20:43 01/09/17 05:05 Creatine Kinase 65799 H 64993 H Bedside Glucose 83 102 White Blood Count 5.4 Red Blood Count 3.20 L Hemoglobin 8.8 L Hematocrit 27.6 L Mean Corpuscular Volume 86.3 Mean Corpuscular Hemoglobin 27.5 L Mean Corpuscular Hemoglobin Concent 31.9 L Red Cell Distribution Width 13.7 Platelet Count 186 Mean Platelet Volume 12.1 H Neutrophils % 67.5 Lymphocytes % 17.2 Monocytes % 8.7 Eosinophils % 5.9 Basophils % 0.0 Nucleated Red Blood Cells % 0.0 Neutrophils # 3.7 Lymphocytes # 0.9 Monocytes # 0.5 Eosinophils # 0.3 Basophils # 0.0 Nucleated Red Blood Cells # 0.0 Sodium Level 135 Potassium Level 3.4 L Chloride Level 108 Carbon Dioxide Level 26 Anion Gap 4 L Blood Urea Nitrogen 20 Creatinine 0.85 Glucose Level 72 Calcium Level 7.8 L Total Bilirubin 0.3 Direct Bilirubin 0.00 Indirect Bilirubin 0.3 Aspartate Amino Transf (AST/SGOT) 441 H Alanine Aminotransferase (ALT/SGPT) 238 H Alkaline Phosphatase 57 Total Protein 3.8 L Albumin 1.8 L Test 01/09/17 08:14 01/09/17 12:22 Bedside Glucose 88 117 Medications Medications Current Medications Ondansetron HCl (Zofran Inj) 4 mg Q6H PRN IV NAUSEA AND/OR VOMITING; Start at 13:00 Acetaminophen (Tylenol Tab) 650 mg Q6H PRN PO PAIN LEVEL 1-3 OR FEVER Last administered on 12/29/16 06:02; Admin Dose 650 MG; Start 12/15/16 at 13:00 Acetaminophen/ Hydrocodone Bitart ([place] (5/325)) 1 tab Q6H PRN PO PAIN LEVEL 4 -6 Last administered on 12/15/16 22:08; Admin Dose 1 TAB; Start 12/15/16 at 13: 00 Morphine Sulfate (morphine) 2 mg Q4H PRN IV PAIN LEVEL 7-10 Last administered on 01/08/17 01:53; Admin Dose 2 MG; Start 12/15/16 at 13:00 Magnesium Hydroxide (Milk Of Mag) 30 ml DAILY PRN PO CONSTIPATION Last administered on 01/02/17 02:07; Admin Dose 30 ML; Start 12/15/16 at 13:00 Bisacodyl (Dulcolax) 5 mg DAILY PRN PO CONSTIPATION Last administered on 17:44; Admin Dose 5 MG; Start 12/15/16 at 13:00 Famotidine (Pepcid) 20 mg Q12 PO Last administered on 01/09/17 08:22; Admin Dose 20 MG; Start 12/15/16 at 21:00 Aspirin (Aspirin) 325 mg DAILY PO Last administered on 01/09/17 08:22; Admin Dose 325 MG; Start 12/16/16 at 09:00 Atorvastatin Calcium (Lipitor) 80 mg QHS PO Last administered on 01/07/17 21: 35; Admin Dose 80 MG; Start 12/15/16 at 21:00; Status Future Hold Heparin Sodium (Porcine) (Heparin (5000 Units/0.5 ml)) 5,000 unit BID SC Last administered on 01/09/17 08:27; Admin Dose 5,000 UNIT; Start 12/15/16 at 21:00 Glucose (Glutose) 15 gm Q15M PRN PO DECREASED GLUCOSE; Start 12/15/16 at 14:00 Glucose (Glutose) 22.5 gm Q15M PRN PO DECREASED GLUCOSE; Start 12/15/16 at 14: 00 Glucagon (Glucagen) 1 mg Q15M PRN IM DECREASED GLUCOSE; Start 12/15/16 at 14:00 Glucose (Glutose) 15 gm Q15M PRN BUCCAL DECREASED GLUCOSE; Start 12/15/16 at 14 :00 Cholecalciferol (Vitamin D) 1,000 unit DAILY PO Last administered on 01/09/17 08:22; Admin Dose 1,000 UNIT; Start 12/16/16 at 09:00 Dextrose (D50w Syringe) 25 ml Q15M PRN IV Till BS 80 mg/dL or above x2 Last administered on 01/04/17 20:11; Admin Dose 25 ML; Start 12/18/16 at 14:00 Dextrose (D50w Syringe) 50 ml Q15M PRN IV Till BS 80 mg/dL or above x2 Last administered on 01/08/17 08:15; Admin Dose 50 ML; Start 12/18/16 at 14:00 Amlodipine Besylate (Norvasc) 5 mg DAILY PO Last administered on 01/09/17 08: 23; Admin Dose 5 MG; Start 12/21/16 at 09:00 Hydralazine HCl (Apresoline) 10 mg Q4H PRN IV sbp > 160 Last administered on 16:05; Admin Dose 10 MG; Start 12/22/16 at 06:30 Hydralazine HCl (Apresoline) 100 mg Q8 PO Last administered on 01/09/17 06:15 ; Admin Dose 100 MG; Start 01/01/17 at 14:00 Carvedilol (Coreg) 12.5 mg BID PO Last administered on 01/09/17 08:23; Admin Dose 12.5 MG; Start 01/04/17 at 21:00 Metoprolol Tartrate (Lopressor) 5 mg Q4H PRN IV HR>110 Last administered on 21:56; Admin Dose 5 MG; Start 01/04/17 at 19:30 Clonidine HCl (Catapres-Tts 2 Patch) 1 patch Q7D TRANSDERM Last administered on 01/05/17 12:55; Admin Dose 1 PATCH; Start 01/05/17 at 12:00 Diagnostic Test (Pha) (Accu-Chek) 1 ea 02 XX ; Start 01/08/17 at 02:00 Insulin Glargine 25 unit 25 unit DAILY@20 SC Last administered on 01/08/17 20: 59; Admin Dose 25 UNIT; Start 01/08/17 at 20:00 Sodium Chloride (NS) 1,000 ml @ 125 mls/hr Q8H IV Last administered on 06:18; Admin Dose 125 MLS/HR; Start 01/08/17 at 17:00 Haloperidol 3 mg 3 mg Q6H PRN IM AGITATION; Start 01/08/17 at 19:00 Potassium Chloride (KCl 40 MEQ/250 ML NS) 250 ml @ 62.5 mls/hr ONCE ONCE IVPB Last administered on 01/09/17 10:18; Admin Dose 62.5 MLS/HR; Start 01/09/17 at 10:30; Stop 01/09/17 at 14:29 YOLETTE RODRIGUEZ NP January 09, 2017 13:36
[2017-01-09] MEDS: INSULIN GLARGINE [LANtus] 3 ML PEN SC SCH (21:05)
[2017-01-09] MEDS: TAMSULOSIN (SR) 0.4 MG CAP PO SCH (21:11)
[2017-01-10] VITALS (9 sets, daily range): BP systolic 142–168; BP diastolic 68–86; PULSE 86–87; RESP 16–19
[2017-01-10] MEDS: SOD CHLORIDE 0.9% 1,000 ML IV SCH ×4 (01:00→17:35)
[2017-01-10] MEDS: ACCU-CHEK XX SCH (02:32)
[2017-01-10] MEDS: FUROSEMIDE 20 MG INJ IV SCH ×2 (06:17→17:57)
[2017-01-10 07:53] LABS: ADD SCAN DIFF NO; BASOPHILS % 0.2 % (0.0-2.0); EOSINOPHILS # 0.3 10^3/ul (0.0-0.5); EOSINOPHILS % 6.2 % (0.0-7.0); HEMATOCRIT 26.4 % (42.0-52.0); HEMOGLOBIN 8.6 g/dl (14.0-18.0); LYMPHOCYTES # 0.9 10^3/ul (0.8-2.9); LYMPHOCYTES % 18.3 % (15.0-51.0); MEAN CORPUSCULAR HEMOGLOBIN 27.7 pg (29.0-33.0); MEAN CORPUSCULAR HGB CONC 32.6 g/dl (32.0-37.0); MEAN CORPUSCULAR VOLUME 84.9 fl (82.0-101.0); MEAN PLATELET VOLUME 11.3 fl (7.4-10.4); MONOCYTE # 0.6 10^3/ul (0.3-0.9); MONOCYTES % 11.7 % (0.0-11.0); NEUTROPHIL # 3.1 10^3/ul (1.6-7.5); PLATELET COUNT 204 10^3/UL (140-415); RED BLOOD COUNT 3.11 10^6/ul (4.70-6.10); RED CELL DISTRIBUTION WIDTH 13.5 % (11.5-14.5); WHITE BLOOD COUNT 4.9 10^3/ul (4.8-10.8)
[2017-01-10] MEDS: INSULIN ASPART [NOVOLOG] 3 ML PEN SC SCH ×4 (07:55→20:19)
[2017-01-10 08:27] LABS: CALCIUM 7.7 mg/dl (8.4-10.2); CREATININE 0.95 mg/dl (0.61-1.24); POTASSIUM 3.2 mmol/L (3.5-5.1)
[2017-01-10] MEDS: AMLODIPINE 5 MG TAB PO SCH (09:34)
[2017-01-10] MEDS: FAMOTIDINE 20 MG TAB PO SCH ×2 (09:34→20:18)
[2017-01-10] MEDS: SEVELAMER CARBONATE 0.8 GM PKT PO SCH ×3 (09:34→17:58)
[2017-01-10] MEDS: CHOLECALCIFEROL 1,000 UNIT TAB PO SCH (09:34)
[2017-01-10] MEDS: ASPIRIN 325 MG TAB PO SCH (09:34)
[2017-01-10] MEDS: HEPARIN 5,000 UNIT/0.5 ML VIAL SC SCH ×2 (09:38→20:24)
--- NOTE | 2017-01-10 11:08 | PN ---
Date/Time of Note Date/Time of Note DATE: 01/10/17 TIME: 11:04 Assessment/Plan VTE Prophylaxis VTE Prophylaxis Intervention: heparin Lines/Catheters IV C[facility]ter Type (from [facility]): PICC Line Central line still needed: Yes Urinary Cath still in place: No Assessment/Plan Assessment/Plan A/P: 41 M with: 1. Sepsis secondary to underlying community-acquired pneumonia with septic shock - resolved now. 2. Acute hypoxic respiratory failure. Most probably secondary to underlying pneumonia Patient got intubated on 12/18/2016, extubated on 01/04/17. Now stable on room air 3. Elevated troponins. Most probably a type 2 event from underlying sepsis and underlying acute kidney injury. 4. Acute kidney injury: resolved 5. Type 2 diabetes mellitus. Poor home control. A1C is high (send out) : Improved in-house control on current regimen. 6. Dyslipidemia. Continue statins. 7. Essential hypertension. Continue antihypertensives. 8. Microcytic, hypochromic anemia. Etiology unclear r/o occult blood loss. Iron panel showing iron deficiency. Continue iron supplements. 9. Vitamin D deficiency. Continue supplements. 10. Positive DAISY with unclear clinical significance. Continue to monitor ,f/u rheum rec's. Steroids have been discontinued in the setting of myopathy. 11. 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 * Creatinine kinase level in the 6000s, goal for discharge is less than 2000, patient able to move extremities better 12. Cocaine abuse: needs counselling when stable 13. Superficial DVT: Continue heparin at prophylactic doses. Disposition: Continue in-house supportive care, patient is to go home with family and home health possibly by Sunday. DVT prophylaxis. Subcutaneous heparin. Gastrointestinal prophylaxis. Histamine 2 receptor blockers. Continue antibiotics per ID. Subjective 24 Hr Interval Summary Free Text/Dictation Patient doing much better. Confusion is improved, and he is now able to sit on the side of the bed. He still however unable to mobilize his extremities actively Exam/Review of Systems Vital Signs Vitals Vital Signs Date Time Temp Pulse Resp B/P Pulse Ox O2 Delivery O2 Flow Rate FiO2 01/10/17 07:00 98.1 71 18 156/73 94 01/10/17 02:29 3.0 01/09/17 21:30 Nasal Cannula 01/07/17 04:02 33 Intake and Output 01/09/17 01/09/17 01/10/17 15:00 23:00 07:00 Intake Total 1400 ml 1420 ml Output Total 1500 ml 1500 ml Balance -100 ml -80 ml Exam GENERAL: This is a morbidly obese male lying in bed, more alert, intermittent confused speech HEENT: Head normocephalic and atraumatic. Eyes: Anicteric sclerae. Conjunctivae clear. ENT: Nasal septum is midline. Oral mucosa is dry. NECK: Short with increased neck circumference. RESPIRATORY: Diminished breath sounds, right less than left, stable on nasal cannula. CARDIAC: Regular rate and rhythm. S1, S2 heard. ABDOMEN: Soft, nontender and nondistended. Bowel sounds positive in all 4 quadrants. EXTREMITIES: No cyanosis, no clubbing. B/L LE edema. Pedal pulses palpable. Status post left great toe amputation. NEUROLOGIC: Patient still having trouble actively moving his lower extremities Results Result Diagram: 01/10/17 0500 01/10/17 0645 Results 24 hrs Laboratory Tests Test 01/09/17 12:22 01/09/17 17:00 01/09/17 21:00 01/10/17 02:23 Bedside Glucose 117 179 217 163 Test 01/10/17 05:00 01/10/17 06:45 01/10/17 07:49 White Blood Count 4.9 Red Blood Count 3.11 L Hemoglobin 8.6 L Hematocrit 26.4 L Mean Corpuscular Volume 84.9 Mean Corpuscular Hemoglobin 27.7 L Mean Corpuscular Hemoglobin Concent 32.6 Red Cell Distribution Width 13.5 Platelet Count 204 Mean Platelet Volume 11.3 H Neutrophils % 63.0 Lymphocytes % 18.3 Monocytes % 11.7 H Eosinophils % 6.2 Basophils % 0.2 Nucleated Red Blood Cells % 0.0 Neutrophils # 3.1 Lymphocytes # 0.9 Monocytes # 0.6 Eosinophils # 0.3 Basophils # 0.0 Nucleated Red Blood Cells # 0.0 Sodium Level 137 Potassium Level 3.2 L Chloride Level 108 Carbon Dioxide Level 29 Anion Gap 3 L Blood Urea Nitrogen 19 Creatinine 0.95 Glucose Level 107 Calcium Level 7.7 L Creatine Kinase 6325 #H Bedside Glucose 104 Medications Medications Current Medications Ondansetron HCl (Zofran Inj) 4 mg Q6H PRN IV NAUSEA AND/OR VOMITING; Start at 13:00 Acetaminophen (Tylenol Tab) 650 mg Q6H PRN PO PAIN LEVEL 1-3 OR FEVER Last administered on 12/29/16 06:02; Admin Dose 650 MG; Start 12/15/16 at 13:00 Acetaminophen/ Hydrocodone Bitart ([address] (5/325)) 1 tab Q6H PRN PO PAIN LEVEL 4 -6 Last administered on 12/15/16 22:08; Admin Dose 1 TAB; Start 12/15/16 at 13: 00 Morphine Sulfate (morphine) 2 mg Q4H PRN IV PAIN LEVEL 7-10 Last administered on 01/08/17 01:53; Admin Dose 2 MG; Start 12/15/16 at 13:00 Magnesium Hydroxide (Milk Of Mag) 30 ml DAILY PRN PO CONSTIPATION Last administered on 01/02/17 02:07; Admin Dose 30 ML; Start 12/15/16 at 13:00 Bisacodyl (Dulcolax) 5 mg DAILY PRN PO CONSTIPATION Last administered on 17:44; Admin Dose 5 MG; Start 12/15/16 at 13:00 Famotidine (Pepcid) 20 mg Q12 PO Last administered on 01/10/17 09:34; Admin Dose 20 MG; Start 12/15/16 at 21:00 Aspirin (Aspirin) 325 mg DAILY PO Last administered on 01/10/17 09:34; Admin Dose 325 MG; Start 12/16/16 at 09:00 Atorvastatin Calcium (Lipitor) 80 mg QHS PO Last administered on 01/07/17 21: 35; Admin Dose 80 MG; Start 12/15/16 at 21:00; Status Future Hold Heparin Sodium (Porcine) (Heparin (5000 Units/0.5 ml)) 5,000 unit BID SC Last administered on 01/10/17 09:38; Admin Dose 5,000 UNIT; Start 12/15/16 at 21:00 Glucose (Glutose) 15 gm Q15M PRN PO DECREASED GLUCOSE; Start 12/15/16 at 14:00 Glucose (Glutose) 22.5 gm Q15M PRN PO DECREASED GLUCOSE; Start 12/15/16 at 14: 00 Glucagon (Glucagen) 1 mg Q15M PRN IM DECREASED GLUCOSE; Start 12/15/16 at 14:00 Glucose (Glutose) 15 gm Q15M PRN BUCCAL DECREASED GLUCOSE; Start 12/15/16 at 14 :00 Cholecalciferol (Vitamin D) 1,000 unit DAILY PO Last administered on 01/10/17 09:34; Admin Dose 1,000 UNIT; Start 12/16/16 at 09:00 Dextrose (D50w Syringe) 25 ml Q15M PRN IV Till BS 80 mg/dL or above x2 Last administered on 01/04/17 20:11; Admin Dose 25 ML; Start 12/18/16 at 14:00 Dextrose (D50w Syringe) 50 ml Q15M PRN IV Till BS 80 mg/dL or above x2 Last administered on 01/08/17 08:15; Admin Dose 50 ML; Start 12/18/16 at 14:00 Amlodipine Besylate (Norvasc) 5 mg DAILY PO Last administered on 01/10/17 09: 34; Admin Dose 5 MG; Start 12/21/16 at 09:00 Hydralazine HCl (Apresoline) 10 mg Q4H PRN IV sbp > 160 Last administered on 16:05; Admin Dose 10 MG; Start 12/22/16 at 06:30 Hydralazine HCl (Apresoline) 100 mg Q8 PO Last administered on 01/10/17 06:17 ; Admin Dose 100 MG; Start 01/01/17 at 14:00 Metoprolol Tartrate (Lopressor) 5 mg Q4H PRN IV HR>110 Last administered on 21:56; Admin Dose 5 MG; Start 01/04/17 at 19:30 Clonidine HCl (Catapres-Tts 2 Patch) 1 patch Q7D TRANSDERM Last administered on 01/05/17 12:55; Admin Dose 1 PATCH; Start 01/05/17 at 12:00 Diagnostic Test (Pha) (Accu-Chek) 1 ea 02 XX Last administered on 01/10/17 02: 32; Admin Dose 1 EA; Start 01/08/17 at 02:00 Insulin Glargine 25 unit 25 unit DAILY@20 SC Last administered on 01/09/17 21: 05; Admin Dose 25 UNIT; Start 01/08/17 at 20:00 Sodium Chloride (NS) 1,000 ml @ 125 mls/hr Q8H IV Last administered on 06:46; Admin Dose 125 MLS/HR; Start 01/08/17 at 17:00 Haloperidol (Haldol) 3 mg Q6H PRN IM AGITATION; Start 01/08/17 at 19:00 Tamsulosin HCl (Flomax) 0.4 mg HS PO Last administered on 01/09/17 21:11; Admin Dose 0.4 MG; Start 01/09/17 at 21:00 Carvedilol (Coreg) 25 mg BID PO ; Start 01/10/17 at 21:00; Status UNV Procedures Procedures PROCEDURE: US Lower extremity Venous. CLINICAL INDICATION: Bilateral lower extremity edema TECHNIQUE: Multiple sonographic images of the bilateral lower extremity deep venous system was obtained utilizing grayscale, color-flow, compressive sonography and doppler imaging with augmentation. The images were reviewed on a PACS workstation. COMPARISON: None. FINDINGS: There is normal compressibility and flow within the bilateral common femoral, femoral , posterior tibial and popliteal veins. The right peroneal vein is not compressible. The left peroneal vein is patent. RPTAT: AA IMPRESSION: DVT in the right peroneal vein. A call report was made and the findings discussed with Vi Petit (Autumn ) at 01/08/2017 3:23:10 PM. .Cristino Dahl MD, MD Date Time Electronically viewed and signed by .Cristino Dahl MD, MD on 01/08/2017 15: 26 .S/ CC: VI ADAMES BOLATITO M. January 10, 2017 11:08
[2017-01-10] MEDS: POTASSIUM CHLORIDE 250 ML IVPB SCH ×2 (12:13→16:26)
[2017-01-10] MEDS: ALBUMIN HUMAN 25% 100 ML IV SCH ×2 (13:59→21:05)
[2017-01-10] MEDS ORDERED: ALTEPLASE (CATHFLO) 2 MG INJ CATHETER PRN (14:00)
--- NOTE | 2017-01-10 14:40 | CONS ---
Date/Time of Note Date/Time of Note DATE: 01/10/17 TIME: 14:40 Assessment/Plan Assessment/Plan Chief Complaint/Hosp Course SUBJECTIVE: The patient is awake, getting straight cath nad INDWELLINGS: PICC line PHYSICAL EXAMINATION: GENERAL: Obese, well-developed, middle-aged man who is awake, confused , in no distress. HEENT: Head atraumatic, normocephalic. Sclerae anicteric. Buccal mucosa dry. NECK: Supple. CHEST: Rise symmetrical. Breath sounds with scattered crackles. HEART: S1, S2. ABDOMEN: Soft, bowel tones present. EXTREMITIES: Without cyanosis. Bilateral trace edema. ASSESSMENT: 1. S/p PNA/acute respiratory failure. 2. Urinary retention. 3. Diabetes. 4. Morbid obesity. 5. Encephalopathy==> resolving. 6. Status post urinary tract infection and acute kidney injury. 7. RLE DVT PLAN: The patient remains stable, off abx, continue Flomax, continue monitoring PVR, straight cath prn DW staff Problems: Consultation Date/Type/Reason Admit Date/Time Dec 15, 2016 at 11:20 Type of Consultation: ID Referring Provider: LEXII REED Exam/Review of Systems Vital Signs Vitals Vital Signs Date Time Temp Pulse Resp B/P Pulse Ox O2 Delivery O2 Flow Rate FiO2 01/10/17 11:47 98.3 89 19 168/86 95 01/10/17 09:30 Nasal Cannula 4.0 01/07/17 04:02 33 Intake and Output 01/09/17 01/09/17 01/10/17 15:00 23:00 07:00 Intake Total 1400 ml 1420 ml Output Total 1500 ml 1500 ml Balance -100 ml -80 ml Results Result Diagram: 01/10/17 0500 01/10/17 0645 Results 24 hrs Laboratory Tests Test 01/09/17 17:00 01/09/17 21:00 01/10/17 02:23 01/10/17 05:00 Bedside Glucose 179 217 163 White Blood Count 4.9 Red Blood Count 3.11 L Hemoglobin 8.6 L Hematocrit 26.4 L Mean Corpuscular Volume 84.9 Mean Corpuscular Hemoglobin 27.7 L Mean Corpuscular Hemoglobin Concent 32.6 Red Cell Distribution Width 13.5 Platelet Count 204 Mean Platelet Volume 11.3 H Neutrophils % 63.0 Lymphocytes % 18.3 Monocytes % 11.7 H Eosinophils % 6.2 Basophils % 0.2 Nucleated Red Blood Cells % 0.0 Neutrophils # 3.1 Lymphocytes # 0.9 Monocytes # 0.6 Eosinophils # 0.3 Basophils # 0.0 Nucleated Red Blood Cells # 0.0 Test 01/10/17 06:45 01/10/17 07:49 01/10/17 12:02 Sodium Level 137 Potassium Level 3.2 L Chloride Level 108 Carbon Dioxide Level 29 Anion Gap 3 L Blood Urea Nitrogen 19 Creatinine 0.95 Glucose Level 107 Calcium Level 7.7 L Creatine Kinase 6325 #H Bedside Glucose 104 106 Medications Medications Current Medications Ondansetron HCl (Zofran Inj) 4 mg Q6H PRN IV NAUSEA AND/OR VOMITING; Start at 13:00 Acetaminophen (Tylenol Tab) 650 mg Q6H PRN PO PAIN LEVEL 1-3 OR FEVER Last administered on 12/29/16 06:02; Admin Dose 650 MG; Start 12/15/16 at 13:00 Acetaminophen/ Hydrocodone Bitart ([place] (5/325)) 1 tab Q6H PRN PO PAIN LEVEL 4 -6 Last administered on 12/15/16 22:08; Admin Dose 1 TAB; Start 12/15/16 at 13: 00 Morphine Sulfate (morphine) 2 mg Q4H PRN IV PAIN LEVEL 7-10 Last administered on 01/08/17 01:53; Admin Dose 2 MG; Start 12/15/16 at 13:00 Magnesium Hydroxide (Milk Of Mag) 30 ml DAILY PRN PO CONSTIPATION Last administered on 01/02/17 02:07; Admin Dose 30 ML; Start 12/15/16 at 13:00 Bisacodyl (Dulcolax) 5 mg DAILY PRN PO CONSTIPATION Last administered on 17:44; Admin Dose 5 MG; Start 12/15/16 at 13:00 Famotidine (Pepcid) 20 mg Q12 PO Last administered on 01/10/17 09:34; Admin Dose 20 MG; Start 12/15/16 at 21:00 Aspirin (Aspirin) 325 mg DAILY PO Last administered on 01/10/17 09:34; Admin Dose 325 MG; Start 12/16/16 at 09:00 Atorvastatin Calcium (Lipitor) 80 mg QHS PO Last administered on 01/07/17 21: 35; Admin Dose 80 MG; Start 12/15/16 at 21:00; Status Future Hold Heparin Sodium (Porcine) (Heparin (5000 Units/0.5 ml)) 5,000 unit BID SC Last administered on 01/10/17 09:38; Admin Dose 5,000 UNIT; Start 12/15/16 at 21:00 Glucose (Glutose) 15 gm Q15M PRN PO DECREASED GLUCOSE; Start 12/15/16 at 14:00 Glucose (Glutose) 22.5 gm Q15M PRN PO DECREASED GLUCOSE; Start 12/15/16 at 14: 00 Glucagon (Glucagen) 1 mg Q15M PRN IM DECREASED GLUCOSE; Start 12/15/16 at 14:00 Glucose (Glutose) 15 gm Q15M PRN BUCCAL DECREASED GLUCOSE; Start 12/15/16 at 14 :00 Cholecalciferol (Vitamin D) 1,000 unit DAILY PO Last administered on 01/10/17 09:34; Admin Dose 1,000 UNIT; Start 12/16/16 at 09:00 Dextrose (D50w Syringe) 25 ml Q15M PRN IV Till BS 80 mg/dL or above x2 Last administered on 01/04/17 20:11; Admin Dose 25 ML; Start 12/18/16 at 14:00 Dextrose (D50w Syringe) 50 ml Q15M PRN IV Till BS 80 mg/dL or above x2 Last administered on 01/08/17 08:15; Admin Dose 50 ML; Start 12/18/16 at 14:00 Amlodipine Besylate (Norvasc) 5 mg DAILY PO Last administered on 01/10/17 09: 34; Admin Dose 5 MG; Start 12/21/16 at 09:00 Hydralazine HCl (Apresoline) 10 mg Q4H PRN IV sbp > 160 Last administered on 16:05; Admin Dose 10 MG; Start 12/22/16 at 06:30 Hydralazine HCl (Apresoline) 100 mg Q8 PO Last administered on 01/10/17 14:03 ; Admin Dose 100 MG; Start 01/01/17 at 14:00 Metoprolol Tartrate (Lopressor) 5 mg Q4H PRN IV HR>110 Last administered on 21:56; Admin Dose 5 MG; Start 01/04/17 at 19:30 Clonidine HCl (Catapres-Tts 2 Patch) 1 patch Q7D TRANSDERM Last administered on 01/05/17 12:55; Admin Dose 1 PATCH; Start 01/05/17 at 12:00 Diagnostic Test (Pha) (Accu-Chek) 1 ea 02 XX Last administered on 01/10/17 02: 32; Admin Dose 1 EA; Start 01/08/17 at 02:00 Insulin Glargine 25 unit 25 unit DAILY@20 SC Last administered on 01/09/17 21: 05; Admin Dose 25 UNIT; Start 01/08/17 at 20:00 Sodium Chloride (NS) 1,000 ml @ 125 mls/hr Q8H IV Last administered on 06:46; Admin Dose 125 MLS/HR; Start 01/08/17 at 17:00 Haloperidol (Haldol) 3 mg Q6H PRN IM AGITATION; Start 01/08/17 at 19:00 Tamsulosin HCl (Flomax) 0.4 mg HS PO Last administered on 01/09/17 21:11; Admin Dose 0.4 MG; Start 01/09/17 at 21:00 Carvedilol 25 mg 25 mg BID PO ; Start 01/10/17 at 21:00 Potassium Chloride 250 ml @ 62.5 mls/hr Q4H IVPB Last administered on 12:13; Admin Dose 62.5 MLS/HR; Start 01/10/17 at 11:30; Stop 01/10/17 at 19 :29 Albumin Human (Albumin Human 25%) 100 ml @ 100 mls/hr Q8H IV Last administered on 01/10/17 13:59; Admin Dose 100 MLS/HR; Start 01/10/17 at 12:30 ; Stop 01/11/17 at 05:29 YOLETTE RODRIGUEZ NP January 10, 2017 14:40
--- NOTE | 2017-01-10 16:52 | CONS ---
Date/Time of Note Date/Time of Note DATE: 01/10/17 TIME: 16:42 Assessment/Plan Assessment/Plan Chief Complaint/Hosp Course IMPRESSION: 1. Positive troponin, assess significance.-no sig uptrend/likely demand event in settng fevers/tachy/resp distress 2. Abnormal electrocardiogram with ST depressions with tachycardia and positive troponin, likely indicative of coronary artery disease.-improved ecg findings with improved HR 3. Hypertension, uncontrolled mildly still 4. Dyslipidemia. 5. Diabetes mellitus. 6. Fevers to 104 documented here in the hospital.-Currently defervesced 7. Renal failure.-acute on chronic/ ? secondary to vasculitic syndrome 8. Lower extremity edema, assess for congestive heart failure/CHF-diastolic acute on chronic 9. Nausea and vomiting. 10. Chest pain with cough initially on admit 11.Resp failure s/p extubation 12. Bradycardia-to 40's.Now improved and tolerating BB 14.CHF-diastolic acute on chronic 15/LE DVT Recc: -Tele -serial ecg's -Continue asa/statin -Continue abx's and f/u cx data -Continue bronchodilators and steroids. -Follow volume status closely and continue lasix diuresis and follow resp status closely s/p extubation -Continue hydralazine/coreg/TTS and increase dose norvasc and f/u BP closely -Ongoing eval for vasculitic syndrome per rheum -Lexiscan when MS improved/stable to assess significance of prior minimally positive troponin -? intiation of systemic anti-coag fro LE DVT Problems: Consultation Date/Type/Reason Admit Date/Time Dec 15, 2016 at 11:20 Initial Consult Date 12/15/2016 Type of Consultation: Cardiology Reason for Consultation Positive troponin Referring Provider: LEXII REED Exam/Review of Systems Vital Signs Vitals Vital Signs Date Time Temp Pulse Resp B/P Pulse Ox O2 Delivery O2 Flow Rate FiO2 01/10/17 15:53 98.3 89 18 167/77 96 01/10/17 09:30 Nasal Cannula 4.0 01/07/17 04:02 33 Intake and Output 01/09/17 01/09/17 01/10/17 15:00 23:00 07:00 Intake Total 1400 ml 1420 ml Output Total 1500 ml 1500 ml Balance -100 ml -80 ml Exam Review of Systems: CONSTITUTIONAL: No fevers, chills. PULMONARY: No sob CARDIOVASCULAR: No chest pain/palpitations GASTROINTESTINAL: No nausea/vomiting. GENITOURINARY: No hematuria/dysuria. MUSCULOSKELETAL: No myagias/arthalgias. PSYCHIATRIC: The patient denies depression. NEUROLOGIC: lethargic/confused Constitutional: alert Psych: confusion, no complaints ENMT: mucosa pink and moist Neck: jvd (9 cm water), supple Respiratory: diminished breath sounds (at bases/B) Cardiovascular: regular rate and rhythm Gastrointestinal: non-tender, soft Musculoskeletal: muscle tone (normal) Extremities: edema Neurological: other (No focal deficits) Results Result Diagram: 01/10/17 0500 01/10/17 0645 Results 24 hrs Laboratory Tests Test 01/09/17 17:00 01/09/17 21:00 01/10/17 02:23 01/10/17 05:00 Bedside Glucose 179 217 163 White Blood Count 4.9 Red Blood Count 3.11 L Hemoglobin 8.6 L Hematocrit 26.4 L Mean Corpuscular Volume 84.9 Mean Corpuscular Hemoglobin 27.7 L Mean Corpuscular Hemoglobin Concent 32.6 Red Cell Distribution Width 13.5 Platelet Count 204 Mean Platelet Volume 11.3 H Neutrophils % 63.0 Lymphocytes % 18.3 Monocytes % 11.7 H Eosinophils % 6.2 Basophils % 0.2 Nucleated Red Blood Cells % 0.0 Neutrophils # 3.1 Lymphocytes # 0.9 Monocytes # 0.6 Eosinophils # 0.3 Basophils # 0.0 Nucleated Red Blood Cells # 0.0 Test 01/10/17 06:45 01/10/17 07:49 01/10/17 12:02 Sodium Level 137 Potassium Level 3.2 L Chloride Level 108 Carbon Dioxide Level 29 Anion Gap 3 L Blood Urea Nitrogen 19 Creatinine 0.95 Glucose Level 107 Calcium Level 7.7 L Creatine Kinase 6325 #H Bedside Glucose 104 106 Medications Medications Current Medications Ondansetron HCl (Zofran Inj) 4 mg Q6H PRN IV NAUSEA AND/OR VOMITING; Start at 13:00 Acetaminophen (Tylenol Tab) 650 mg Q6H PRN PO PAIN LEVEL 1-3 OR FEVER Last administered on 12/29/16 06:02; Admin Dose 650 MG; Start 12/15/16 at 13:00 Acetaminophen/ Hydrocodone Bitart ([place] (5/325)) 1 tab Q6H PRN PO PAIN LEVEL 4 -6 Last administered on 12/15/16 22:08; Admin Dose 1 TAB; Start 12/15/16 at 13: 00 Morphine Sulfate (morphine) 2 mg Q4H PRN IV PAIN LEVEL 7-10 Last administered on 01/08/17 01:53; Admin Dose 2 MG; Start 12/15/16 at 13:00 Magnesium Hydroxide (Milk Of Mag) 30 ml DAILY PRN PO CONSTIPATION Last administered on 01/02/17 02:07; Admin Dose 30 ML; Start 12/15/16 at 13:00 Bisacodyl (Dulcolax) 5 mg DAILY PRN PO CONSTIPATION Last administered on 17:44; Admin Dose 5 MG; Start 12/15/16 at 13:00 Famotidine (Pepcid) 20 mg Q12 PO Last administered on 01/10/17 09:34; Admin Dose 20 MG; Start 12/15/16 at 21:00 Aspirin (Aspirin) 325 mg DAILY PO Last administered on 01/10/17 09:34; Admin Dose 325 MG; Start 12/16/16 at 09:00 Atorvastatin Calcium (Lipitor) 80 mg QHS PO Last administered on 01/07/17 21: 35; Admin Dose 80 MG; Start 12/15/16 at 21:00; Status Future Hold Heparin Sodium (Porcine) (Heparin (5000 Units/0.5 ml)) 5,000 unit BID SC Last administered on 01/10/17 09:38; Admin Dose 5,000 UNIT; Start 12/15/16 at 21:00 Glucose (Glutose) 15 gm Q15M PRN PO DECREASED GLUCOSE; Start 12/15/16 at 14:00 Glucose (Glutose) 22.5 gm Q15M PRN PO DECREASED GLUCOSE; Start 12/15/16 at 14: 00 Glucagon (Glucagen) 1 mg Q15M PRN IM DECREASED GLUCOSE; Start 12/15/16 at 14:00 Glucose (Glutose) 15 gm Q15M PRN BUCCAL DECREASED GLUCOSE; Start 12/15/16 at 14 :00 Cholecalciferol (Vitamin D) 1,000 unit DAILY PO Last administered on 01/10/17 09:34; Admin Dose 1,000 UNIT; Start 12/16/16 at 09:00 Dextrose (D50w Syringe) 25 ml Q15M PRN IV Till BS 80 mg/dL or above x2 Last administered on 01/04/17 20:11; Admin Dose 25 ML; Start 12/18/16 at 14:00 Dextrose (D50w Syringe) 50 ml Q15M PRN IV Till BS 80 mg/dL or above x2 Last administered on 01/08/17 08:15; Admin Dose 50 ML; Start 12/18/16 at 14:00 Amlodipine Besylate (Norvasc) 5 mg DAILY PO Last administered on 01/10/17 09: 34; Admin Dose 5 MG; Start 12/21/16 at 09:00 Hydralazine HCl (Apresoline) 10 mg Q4H PRN IV sbp > 160 Last administered on 16:05; Admin Dose 10 MG; Start 12/22/16 at 06:30 Hydralazine HCl (Apresoline) 100 mg Q8 PO Last administered on 01/10/17 14:03 ; Admin Dose 100 MG; Start 01/01/17 at 14:00 Metoprolol Tartrate (Lopressor) 5 mg Q4H PRN IV HR>110 Last administered on 21:56; Admin Dose 5 MG; Start 01/04/17 at 19:30 Clonidine HCl (Catapres-Tts 2 Patch) 1 patch Q7D TRANSDERM Last administered on 01/05/17 12:55; Admin Dose 1 PATCH; Start 01/05/17 at 12:00 Diagnostic Test (Pha) (Accu-Chek) 1 ea 02 XX Last administered on 01/10/17 02: 32; Admin Dose 1 EA; Start 01/08/17 at 02:00 Insulin Glargine 25 unit 25 unit DAILY@20 SC Last administered on 01/09/17 21: 05; Admin Dose 25 UNIT; Start 01/08/17 at 20:00 Sodium Chloride (NS) 1,000 ml @ 125 mls/hr Q8H IV Last administered on 06:46; Admin Dose 125 MLS/HR; Start 01/08/17 at 17:00 Haloperidol (Haldol) 3 mg Q6H PRN IM AGITATION; Start 01/08/17 at 19:00 Tamsulosin HCl (Flomax) 0.4 mg HS PO Last administered on 01/09/17 21:11; Admin Dose 0.4 MG; Start 01/09/17 at 21:00 Carvedilol 25 mg 25 mg BID PO ; Start 01/10/17 at 21:00 Potassium Chloride 250 ml @ 62.5 mls/hr Q4H IVPB Last administered on 16:26; Admin Dose 62.5 MLS/HR; Start 01/10/17 at 11:30; Stop 01/10/17 at 19 :29 Albumin Human (Albumin Human 25%) 100 ml @ 100 mls/hr Q8H IV Last administered on 01/10/17 13:59; Admin Dose 100 MLS/HR; Start 01/10/17 at 12:30 ; Stop 01/11/17 at 05:29 VI ADAMES January 10, 2017 16:52
[2017-01-10] MEDS: INSULIN GLARGINE [LANtus] 3 ML PEN SC SCH (20:17)
[2017-01-10] MEDS: TAMSULOSIN (SR) 0.4 MG CAP PO SCH (20:18)
[2017-01-10] MEDS ORDERED: ZOLPIDEM 5 MG TAB PO ONE (21:00)
[2017-01-11] MEDS: ACCU-CHEK XX SCH (01:20)
[2017-01-11] MEDS: SOD CHLORIDE 0.9% 1,000 ML IV SCH ×3 (01:54→17:24)
[2017-01-11] MEDS: ALBUMIN HUMAN 25% 100 ML IV SCH (04:16)
[2017-01-11] MEDS: FUROSEMIDE 20 MG INJ IV SCH ×2 (05:50→17:54)
[2017-01-11 06:49] LABS: ADD SCAN DIFF NO
[2017-01-11 06:50] LABS: EOSINOPHILS # 0.3 10^3/ul (0.0-0.5); EOSINOPHILS % 7.1 % (0.0-7.0); HEMATOCRIT 23.1 % (42.0-52.0); HEMOGLOBIN 7.6 g/dl (14.0-18.0); LYMPHOCYTES # 0.6 10^3/ul (0.8-2.9); LYMPHOCYTES % 15.7 % (15.0-51.0); MEAN CORPUSCULAR HEMOGLOBIN 28.1 pg (29.0-33.0); MEAN CORPUSCULAR HGB CONC 32.9 g/dl (32.0-37.0); MEAN CORPUSCULAR VOLUME 85.6 fl (82.0-101.0); MEAN PLATELET VOLUME 11.2 fl (7.4-10.4); MONOCYTE # 0.5 10^3/ul (0.3-0.9); MONOCYTES % 11.6 % (0.0-11.0); NEUTROPHIL # 2.6 10^3/ul (1.6-7.5); NEUTROPHILS % 64.8 % (39.0-77.0); PLATELET COUNT 162 10^3/UL (140-415); RED CELL DISTRIBUTION WIDTH 13.6 % (11.5-14.5)
[2017-01-11 06:51] LABS: ALBUMIN 2.3 g/dl (3.3-4.9); BILIRUBIN,INDIRECT 0.2 mg/dl (0-1.1); BILIRUBIN,TOTAL 0.2 mg/dl (0.2-1.3); TOTAL PROTEIN 4.5 g/dl (6.1-8.1)
[2017-01-11 07:05] LABS: CREATININE 0.82 mg/dl (0.61-1.24); POTASSIUM 3.4 mmol/L (3.5-5.1)
[2017-01-11 07:34] VITALS: BP 189/86; RESP 20
[2017-01-11] MEDS: INSULIN ASPART [NOVOLOG] 3 ML PEN SC SCH ×4 (08:10→20:47)
[2017-01-11] MEDS: SEVELAMER CARBONATE 0.8 GM PKT PO SCH ×3 (08:23→17:53)
[2017-01-11] MEDS: ASPIRIN 325 MG TAB PO SCH (10:00)
[2017-01-11] MEDS: FAMOTIDINE 20 MG TAB PO SCH ×2 (10:01→20:46)
[2017-01-11] MEDS: CHOLECALCIFEROL 1,000 UNIT TAB PO SCH (10:01)
[2017-01-11] MEDS: AMLODIPINE 5 MG TAB PO SCH (10:01)
[2017-01-11] MEDS: HEPARIN 5,000 UNIT/0.5 ML VIAL SC SCH (10:06)
[2017-01-11] MEDS ORDERED: POTASSIUM CHLORIDE (SR) 20 MEQ TAB PO STA (11:22)
--- NOTE | 2017-01-11 11:29 | PN ---
Date/Time of Note Date/Time of Note DATE: 01/11/17 TIME: 11:26 Assessment/Plan VTE Prophylaxis VTE Prophylaxis Intervention: LMWH Lines/Catheters IV Catheter Type (from [facility]): PICC Line Central line still needed: Yes Urinary Cath still in place: No Assessment/Plan Assessment/Plan 1. Sepsis secondary to underlying community-acquired pneumonia with septic shock - resolved now. 2. Acute hypoxic respiratory failure. Most probably secondary to underlying pneumonia Patient got intubated on 12/18/2016, extubated on 01/04/17. Now stable on room air 3. Elevated troponins. Most probably a type 2 event from underlying sepsis and underlying acute kidney injury. 4. Acute kidney injury: resolved 5. Type 2 diabetes mellitus. Poor home control. A1C is high (send out) : Improved in-house control on current regimen. 6. Dyslipidemia. Continue statins. 7. Essential hypertension. Continue antihypertensives. 8. Microcytic, hypochromic anemia. Etiology unclear r/o occult blood loss. Iron panel showing iron deficiency. Continue iron supplements. 9. Vitamin D deficiency. Continue supplements. 10. Positive DAISY with unclear clinical significance. Continue to monitor ,f/u rheum rec's. Steroids have been discontinued in the setting of myopathy. 11. 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 * Creatinine kinase level improves daily, goal for discharge is less than 2000 , patient able to move extremities better 12. Cocaine abuse: * needs counselling when stable 13. DVT: * Patient will be started on therapeutic Lovenox, as he still poses a very significant fall risk at this time Disposition: * Urology consultation for urinary retention * Continue IV fluids and creatinine kinase monitoring * Per cardiology patient will need Lexiscan prior to discharge, once muscle injury has improved to evaluate previously elevated troponins. DVT prophylaxis. Therapeutic Lovenox Gastrointestinal prophylaxis. Histamine 2 receptor blockers. Antibiotics per ID. Subjective 24 Hr Interval Summary Free Text/Dictation Patient remains mildly confused, severely debilitated. Still with bilateral lower extremity weakness and lower extremity edema. Also noted to have severe urinary retention and requiring in and out catheterization almost every 8 hours. Exam/Review of Systems Vital Signs Vitals Vital Signs Date Time Temp Pulse Resp B/P Pulse Ox O2 Delivery O2 Flow Rate FiO2 01/11/17 10:32 Nasal Cannula 01/11/17 07:34 98.0 101 20 189/86 96 01/10/17 09:30 4.0 Intake and Output 01/10/17 01/10/17 01/11/17 15:00 23:00 07:00 Intake Total 250 ml 2660.0 ml 1875 ml Output Total 1200 ml 2400 ml Balance 250 ml 1460.0 ml -525 ml Exam GENERAL: This is a morbidly obese male lying in bed, more alert, intermittent confused speech HEENT: Head normocephalic and atraumatic. Eyes: Anicteric sclerae. Conjunctivae clear. ENT: Nasal septum is midline. Oral mucosa is dry. NECK: Short with increased neck circumference. RESPIRATORY: Diminished breath sounds, right less than left, stable on nasal cannula. CARDIAC: Regular rate and rhythm. S1, S2 heard. ABDOMEN: Soft, nontender and nondistended. Bowel sounds positive in all 4 quadrants. EXTREMITIES: No cyanosis, no clubbing. B/L LE edema. Pedal pulses palpable. Status post left great toe amputation. NEUROLOGIC: Patient still having trouble actively moving his lower extremities Results Result Diagram: 01/11/17 0541 01/11/17 0541 Results 24 hrs Laboratory Tests Test 01/10/17 12:02 01/10/17 17:19 01/10/17 20:11 01/11/17 04:25 Bedside Glucose 106 122 136 Total Bilirubin 0.2 Direct Bilirubin 0.00 Indirect Bilirubin 0.2 Aspartate Amino Transf (AST/SGOT) 211 #H Alanine Aminotransferase (ALT/SGPT) 215 H Alkaline Phosphatase 63 Total Protein 4.5 L Albumin 2.3 L Test 01/11/17 05:15 01/11/17 05:41 01/11/17 08:01 Magnesium Level 1.6 L Creatine Kinase 4384 H White Blood Count 4.0 L Red Blood Count 2.70 L Hemoglobin 7.6 L Hematocrit 23.1 L Mean Corpuscular Volume 85.6 Mean Corpuscular Hemoglobin 28.1 L Mean Corpuscular Hemoglobin Concent 32.9 Red Cell Distribution Width 13.6 Platelet Count 162 # Mean Platelet Volume 11.2 H Neutrophils % 64.8 Lymphocytes % 15.7 Monocytes % 11.6 H Eosinophils % 7.1 H Basophils % 0.0 Nucleated Red Blood Cells % 0.0 Neutrophils # 2.6 Lymphocytes # 0.6 L Monocytes # 0.5 Eosinophils # 0.3 Basophils # 0.0 Nucleated Red Blood Cells # 0.0 Sodium Level 139 Potassium Level 3.4 L Chloride Level 108 Carbon Dioxide Level 27 Anion Gap 7 L Blood Urea Nitrogen 13 Creatinine 0.82 Glucose Level 184 Calcium Level 8.0 L Bedside Glucose 176 Medications Medications Current Medications Ondansetron HCl (Zofran Inj) 4 mg Q6H PRN IV NAUSEA AND/OR VOMITING; Start at 13:00 Acetaminophen (Tylenol Tab) 650 mg Q6H PRN PO PAIN LEVEL 1-3 OR FEVER Last administered on 12/29/16 06:02; Admin Dose 650 MG; Start 12/15/16 at 13:00 Acetaminophen/ Hydrocodone Bitart ([place] (5/325)) 1 tab Q6H PRN PO PAIN LEVEL 4 -6 Last administered on 12/15/16 22:08; Admin Dose 1 TAB; Start 12/15/16 at 13: 00 Morphine Sulfate (morphine) 2 mg Q4H PRN IV PAIN LEVEL 7-10 Last administered on 01/08/17 01:53; Admin Dose 2 MG; Start 12/15/16 at 13:00 Magnesium Hydroxide (Milk Of Mag) 30 ml DAILY PRN PO CONSTIPATION Last administered on 01/02/17 02:07; Admin Dose 30 ML; Start 12/15/16 at 13:00 Bisacodyl (Dulcolax) 5 mg DAILY PRN PO CONSTIPATION Last administered on 17:44; Admin Dose 5 MG; Start 12/15/16 at 13:00 Famotidine (Pepcid) 20 mg Q12 PO Last administered on 01/11/17 10:01; Admin Dose 20 MG; Start 12/15/16 at 21:00 Aspirin (Aspirin) 325 mg DAILY PO Last administered on 01/11/17 10:00; Admin Dose 325 MG; Start 12/16/16 at 09:00 Atorvastatin Calcium (Lipitor) 80 mg QHS PO Last administered on 01/07/17 21: 35; Admin Dose 80 MG; Start 12/15/16 at 21:00; Status Future Hold Heparin Sodium (Porcine) (Heparin (5000 Units/0.5 ml)) 5,000 unit BID SC Last administered on 01/11/17 10:06; Admin Dose 5,000 UNIT; Start 12/15/16 at 21:00 Glucose (Glutose) 15 gm Q15M PRN PO DECREASED GLUCOSE; Start 12/15/16 at 14:00 Glucose (Glutose) 22.5 gm Q15M PRN PO DECREASED GLUCOSE; Start 12/15/16 at 14: 00 Glucagon (Glucagen) 1 mg Q15M PRN IM DECREASED GLUCOSE; Start 12/15/16 at 14:00 Glucose (Glutose) 15 gm Q15M PRN BUCCAL DECREASED GLUCOSE; Start 12/15/16 at 14 :00 Cholecalciferol (Vitamin D) 1,000 unit DAILY PO Last administered on 01/11/17 10:01; Admin Dose 1,000 UNIT; Start 12/16/16 at 09:00 Dextrose (D50w Syringe) 25 ml Q15M PRN IV Till BS 80 mg/dL or above x2 Last administered on 01/04/17 20:11; Admin Dose 25 ML; Start 12/18/16 at 14:00 Dextrose (D50w Syringe) 50 ml Q15M PRN IV Till BS 80 mg/dL or above x2 Last administered on 01/08/17 08:15; Admin Dose 50 ML; Start 12/18/16 at 14:00 Amlodipine Besylate (Norvasc) 5 mg DAILY PO Last administered on 01/11/17 10: 01; Admin Dose 5 MG; Start 12/21/16 at 09:00 Hydralazine HCl (Apresoline) 10 mg Q4H PRN IV sbp > 160 Last administered on 16:05; Admin Dose 10 MG; Start 12/22/16 at 06:30 Hydralazine HCl (Apresoline) 100 mg Q8 PO Last administered on 01/11/17 05:50 ; Admin Dose 100 MG; Start 01/01/17 at 14:00 Clonidine HCl (Catapres-Tts 2 Patch) 1 patch Q7D TRANSDERM Last administered on 01/05/17 12:55; Admin Dose 1 PATCH; Start 01/05/17 at 12:00 Diagnostic Test (Pha) (Accu-Chek) 1 ea 02 XX Last administered on 01/10/17 02: 32; Admin Dose 1 EA; Start 01/08/17 at 02:00 Insulin Glargine 25 unit 25 unit DAILY@20 SC Last administered on 01/10/17 20: 17; Admin Dose 25 UNIT; Start 01/08/17 at 20:00 Sodium Chloride (NS) 1,000 ml @ 125 mls/hr Q8H IV Last administered on 01:54; Admin Dose 125 MLS/HR; Start 01/08/17 at 17:00 Haloperidol (Haldol) 3 mg Q6H PRN IM AGITATION Last administered on 01/11/17 04:24; Admin Dose 3 MG; Start 01/08/17 at 19:00 Tamsulosin HCl (Flomax) 0.4 mg HS PO Last administered on 01/10/17 20:18; Admin Dose 0.4 MG; Start 01/09/17 at 21:00 Carvedilol 25 mg 25 mg BID PO Last administered on 01/11/17 10:02; Admin Dose 25 MG; Start 01/10/17 at 21:00 Magnesium Sulfate 50 ml @ 25 mls/hr ONCE ONCE IVPB ; Start 01/11/17 at 11:30; Stop 01/11/17 at 13:29; Status UNV Potassium Chloride (KCl 40 MEQ/250 ML NS) 250 ml @ 62.5 mls/hr ONCE ONCE IVPB ; Start 01/11/17 at 11:30; Stop 01/11/17 at 15:29; Status UNV LEXII REED January 11, 2017 11:29
[2017-01-11] MEDS ORDERED: POTASSIUM CHLORIDE 250 ML IVPB SCH (12:30)
[2017-01-11] MEDS ORDERED: MAGNESIUM SULFATE 2 GM/50 ML 50 ML IVPB SCH (12:30)
[2017-01-11] MEDS: ENOXAPARIN 100 MG/ML SYG SC SCH ×2 (12:52→20:48)
[2017-01-11 14:00] VITALS: BP 146/69; PULSE 94; RESP 18
[2017-01-11] MEDS ORDERED: ALTEPLASE (CATHFLO) 2 MG INJ CATHETER PRN (17:30)
--- NOTE | 2017-01-11 17:38 | CONS ---
Date/Time of Note Date/Time of Note DATE: 01/11/17 TIME: 17:35 Assessment/Plan Assessment/Plan Chief Complaint/Hosp Course IMPRESSION: 1. Positive troponin, assess significance.-no sig uptrend/likely demand event in settng fevers/tachy/resp distress 2. Abnormal electrocardiogram with ST depressions with tachycardia and positive troponin, likely indicative of coronary artery disease.-improved ecg findings with improved HR 3. Hypertension, uncontrolled mildly still 4. Dyslipidemia. 5. Diabetes mellitus. 6. Fevers to 104 documented here in the hospital.-Currently defervesced 7. Renal failure.-acute on chronic/ ? secondary to vasculitic syndrome 8. Lower extremity edema, assess for congestive heart failure/CHF-diastolic acute on chronic 9. Nausea and vomiting. 10. Chest pain with cough initially on admit 11.Resp failure s/p extubation 12. Bradycardia-to 40's.Now improved and tolerating BB 14.CHF-diastolic acute on chronic 15. LLE DVT Recc: -Tele -serial ecg's -Continue asa/statin -Continue abx's and f/u cx data -Continue bronchodilators and steroids. -Follow volume status closely and continue lasix diuresis and follow resp status closely s/p extubation -Continue hydralazine/coreg/TTS and increase dose norvasc and f/u BP closely -Ongoing eval for vasculitic syndrome per rheum -Lexiscan when MS improved/stable to assess significance of prior minimally positive troponin -Now on lovenox for DVT LE Problems: Consultation Date/Type/Reason Admit Date/Time Dec 15, 2016 at 11:20 Initial Consult Date 12/15/2016 Type of Consultation: Cardiology Reason for Consultation positive troponin Referring Provider: LEXII REED Exam/Review of Systems Vital Signs Vitals Vital Signs Date Time Temp Pulse Resp B/P Pulse Ox O2 Delivery O2 Flow Rate FiO2 01/11/17 10:32 Nasal Cannula 01/11/17 07:34 98.0 101 20 189/86 96 01/10/17 09:30 4.0 Intake and Output 01/10/17 01/10/17 01/11/17 15:00 23:00 07:00 Intake Total 250 ml 2660.0 ml 1875 ml Output Total 1200 ml 2400 ml Balance 250 ml 1460.0 ml -525 ml Exam Review of Systems: CONSTITUTIONAL: No fevers, chills. PULMONARY: No sob CARDIOVASCULAR: No chest pain/palpitations GASTROINTESTINAL: No nausea/vomiting. GENITOURINARY: No hematuria/dysuria. MUSCULOSKELETAL: No myagias/arthalgias. PSYCHIATRIC: The patient denies depression. NEUROLOGIC: No weakness Constitutional: alert Psych: no complaints Head: normocephalic ENMT: mucosa pink and moist Neck: jvd (9 cm water), supple Respiratory: diminished breath sounds (at bases/B) Cardiovascular: regular rate and rhythm Gastrointestinal: non-tender, soft Extremities: edema (none) Neurological: other (No focal deficits) Results Result Diagram: 01/11/17 0541 01/11/17 0541 Results 24 hrs Laboratory Tests Test 01/10/17 20:11 01/11/17 04:25 01/11/17 05:15 01/11/17 05:41 Bedside Glucose 136 Total Bilirubin 0.2 Direct Bilirubin 0.00 Indirect Bilirubin 0.2 Aspartate Amino Transf (AST/SGOT) 211 #H Alanine Aminotransferase (ALT/SGPT) 215 H Alkaline Phosphatase 63 Total Protein 4.5 L Albumin 2.3 L Magnesium Level 1.6 L Creatine Kinase 4384 H White Blood Count 4.0 L Red Blood Count 2.70 L Hemoglobin 7.6 L Hematocrit 23.1 L Mean Corpuscular Volume 85.6 Mean Corpuscular Hemoglobin 28.1 L Mean Corpuscular Hemoglobin Concent 32.9 Red Cell Distribution Width 13.6 Platelet Count 162 # Mean Platelet Volume 11.2 H Neutrophils % 64.8 Lymphocytes % 15.7 Monocytes % 11.6 H Eosinophils % 7.1 H Basophils % 0.0 Nucleated Red Blood Cells % 0.0 Neutrophils # 2.6 Lymphocytes # 0.6 L Monocytes # 0.5 Eosinophils # 0.3 Basophils # 0.0 Nucleated Red Blood Cells # 0.0 Sodium Level 139 Potassium Level 3.4 L Chloride Level 108 Carbon Dioxide Level 27 Anion Gap 7 L Blood Urea Nitrogen 13 Creatinine 0.82 Glucose Level 184 Calcium Level 8.0 L Test 01/11/17 08:01 01/11/17 12:01 01/11/17 17:19 Bedside Glucose 176 167 129 Medications Medications Current Medications Ondansetron HCl (Zofran Inj) 4 mg Q6H PRN IV NAUSEA AND/OR VOMITING; Start at 13:00 Acetaminophen (Tylenol Tab) 650 mg Q6H PRN PO PAIN LEVEL 1-3 OR FEVER Last administered on 12/29/16 06:02; Admin Dose 650 MG; Start 12/15/16 at 13:00 Acetaminophen/ Hydrocodone Bitart ([place] (5/325)) 1 tab Q6H PRN PO PAIN LEVEL 4 -6 Last administered on 12/15/16 22:08; Admin Dose 1 TAB; Start 12/15/16 at 13: 00 Morphine Sulfate (morphine) 2 mg Q4H PRN IV PAIN LEVEL 7-10 Last administered on 01/08/17 01:53; Admin Dose 2 MG; Start 12/15/16 at 13:00 Magnesium Hydroxide (Milk Of Mag) 30 ml DAILY PRN PO CONSTIPATION Last administered on 01/02/17 02:07; Admin Dose 30 ML; Start 12/15/16 at 13:00 Bisacodyl (Dulcolax) 5 mg DAILY PRN PO CONSTIPATION Last administered on 17:44; Admin Dose 5 MG; Start 12/15/16 at 13:00 Famotidine (Pepcid) 20 mg Q12 PO Last administered on 01/11/17 10:01; Admin Dose 20 MG; Start 12/15/16 at 21:00 Aspirin (Aspirin) 325 mg DAILY PO Last administered on 01/11/17 10:00; Admin Dose 325 MG; Start 12/16/16 at 09:00 Atorvastatin Calcium (Lipitor) 80 mg QHS PO Last administered on 01/07/17 21: 35; Admin Dose 80 MG; Start 12/15/16 at 21:00; Status Future Hold Glucose (Glutose) 15 gm Q15M PRN PO DECREASED GLUCOSE; Start 12/15/16 at 14:00 Glucose (Glutose) 22.5 gm Q15M PRN PO DECREASED GLUCOSE; Start 12/15/16 at 14: 00 Glucagon (Glucagen) 1 mg Q15M PRN IM DECREASED GLUCOSE; Start 12/15/16 at 14:00 Glucose (Glutose) 15 gm Q15M PRN BUCCAL DECREASED GLUCOSE; Start 12/15/16 at 14 :00 Cholecalciferol (Vitamin D) 1,000 unit DAILY PO Last administered on 01/11/17 10:01; Admin Dose 1,000 UNIT; Start 12/16/16 at 09:00 Dextrose (D50w Syringe) 25 ml Q15M PRN IV Till BS 80 mg/dL or above x2 Last administered on 01/04/17 20:11; Admin Dose 25 ML; Start 12/18/16 at 14:00 Dextrose (D50w Syringe) 50 ml Q15M PRN IV Till BS 80 mg/dL or above x2 Last administered on 01/08/17 08:15; Admin Dose 50 ML; Start 12/18/16 at 14:00 Amlodipine Besylate (Norvasc) 5 mg DAILY PO Last administered on 01/11/17 10: 01; Admin Dose 5 MG; Start 12/21/16 at 09:00 Hydralazine HCl (Apresoline) 10 mg Q4H PRN IV sbp > 160 Last administered on 16:05; Admin Dose 10 MG; Start 12/22/16 at 06:30 Hydralazine HCl (Apresoline) 100 mg Q8 PO Last administered on 01/11/17 14:29 ; Admin Dose 100 MG; Start 01/01/17 at 14:00 Clonidine HCl (Catapres-Tts 2 Patch) 1 patch Q7D TRANSDERM Last administered on 01/05/17 12:55; Admin Dose 1 PATCH; Start 01/05/17 at 12:00 Diagnostic Test (Pha) (Accu-Chek) 1 ea 02 XX Last administered on 01/10/17 02: 32; Admin Dose 1 EA; Start 01/08/17 at 02:00 Insulin Glargine 25 unit 25 unit DAILY@20 SC Last administered on 01/10/17 20: 17; Admin Dose 25 UNIT; Start 01/08/17 at 20:00 Sodium Chloride (NS) 1,000 ml @ 125 mls/hr Q8H IV Last administered on 17:24; Admin Dose 125 MLS/HR; Start 01/08/17 at 17:00 Haloperidol (Haldol) 3 mg Q6H PRN IM AGITATION Last administered on 01/11/17 04:24; Admin Dose 3 MG; Start 01/08/17 at 19:00 Tamsulosin HCl (Flomax) 0.4 mg HS PO Last administered on 01/10/17 20:18; Admin Dose 0.4 MG; Start 01/09/17 at 21:00 Carvedilol (Coreg) 25 mg BID PO Last administered on 01/11/17 10:02; Admin Dose 25 MG; Start 01/10/17 at 21:00 Enoxaparin Sodium (Lovenox) 110 mg Q12 SC Last administered on 01/11/17 12:52 ; Admin Dose 110 MG; Start 01/11/17 at 11:30 VI ADAMES January 11, 2017 17:38
[2017-01-11 20:00] VITALS: BP 159/71; RESP 20
[2017-01-11] MEDS: TAMSULOSIN (SR) 0.4 MG CAP PO SCH (20:46)
[2017-01-11] MEDS: INSULIN GLARGINE [LANtus] 3 ML PEN SC SCH (20:47)
[2017-01-11] MEDS: ACETAMINOPHEN 325 MG TAB PO PRN (20:50)
[2017-01-12] MEDS: SOD CHLORIDE 0.9% 1,000 ML IV SCH ×4 (02:45→22:09)
[2017-01-12] MEDS: ACCU-CHEK XX SCH (02:45)
[2017-01-12] MEDS: FUROSEMIDE 20 MG INJ IV SCH ×2 (05:55→19:23)
[2017-01-12 07:16] LABS: BILIRUBIN,INDIRECT 0.2 mg/dl (0-1.1); BILIRUBIN,TOTAL 0.2 mg/dl (0.2-1.3)
[2017-01-12 07:48] VITALS: BP 159/79; RESP 18
[2017-01-12] MEDS: INSULIN ASPART [NOVOLOG] 3 ML PEN SC SCH ×4 (08:15→20:46)
[2017-01-12] MEDS: SEVELAMER CARBONATE 0.8 GM PKT PO SCH ×3 (08:40→19:21)
[2017-01-12] MEDS: FAMOTIDINE 20 MG TAB PO SCH ×2 (08:41→20:41)
[2017-01-12] MEDS: ASPIRIN 325 MG TAB PO SCH (08:41)
[2017-01-12] MEDS: CHOLECALCIFEROL 1,000 UNIT TAB PO SCH (08:42)
[2017-01-12] MEDS: AMLODIPINE 5 MG TAB PO SCH ×2 (08:42→20:41)
[2017-01-12] MEDS: ENOXAPARIN 100 MG/ML SYG SC SCH ×2 (08:47→20:43)
[2017-01-12] MEDS: ALBUMIN HUMAN 25% 100 ML IV SCH (12:29)
[2017-01-12] MEDS: CLONIDINE 0.2 MG/24 HR PATCH TRANSDERM SCH (12:30)
[2017-01-12] MEDS: TAMSULOSIN (SR) 0.4 MG CAP PO SCH ×2 (12:32→20:41)
[2017-01-12 14:41] VITALS: BP 164/83; PULSE 80
--- NOTE | 2017-01-12 16:01 | CONS ---
Date/Time of Note Date/Time of Note DATE: 01/12/17 TIME: 15:58 Assessment/Plan Assessment/Plan Chief Complaint/Hosp Course IMPRESSION: 1. Positive troponin, assess significance.-no sig uptrend/likely demand event in settng fevers/tachy/resp distress 2. Abnormal electrocardiogram with ST depressions with tachycardia and positive troponin, likely indicative of coronary artery disease.-improved ecg findings with improved HR 3. Hypertension, uncontrolled still 4. Dyslipidemia. 5. Diabetes mellitus. 6. Fevers to 104 documented here in the hospital.-Currently defervesced 7. Renal failure.-acute on chronic/ ? secondary to vasculitic syndrome- Now improved 8. Lower extremity edema, assess for congestive heart failure/CHF-diastolic acute on chronic 9. Nausea and vomiting. 10. Chest pain with cough initially on admit 11.Resp failure s/p extubation 12. Bradycardia-to 40's.Now improved and tolerating BB 14.CHF-diastolic acute on chronic 15. LLE DVT Recc: -Now on med-surg -serial ecg's -Continue asa/statin -Continue abx's and f/u cx data -Continue bronchodilators and steroids. -Follow volume status closely and continue lasix diuresis and follow resp status closely -Continue hydralazine/coreg/TTS and increase dose norvasc and f/u BP closely -Lexiscan when MS improved/stable to assess significance of prior minimally positive troponin -Now on lovenox for DVT LE Problems: Consultation Date/Type/Reason Admit Date/Time Dec 15, 2016 at 11:20 Initial Consult Date 12/15/2016 Type of Consultation: Cardiology Reason for Consultation Positive troponin/HTN Referring Provider: LEXII REED Exam/Review of Systems Vital Signs Vitals Vital Signs Date Time Temp Pulse Resp B/P Pulse Ox O2 Delivery O2 Flow Rate FiO2 01/12/17 14:41 80 164/83 01/12/17 07:48 98.2 18 96 01/11/17 23:16 Nasal Cannula 01/10/17 09:30 4.0 Intake and Output 01/11/17 01/11/17 01/12/17 15:00 23:00 07:00 Intake Total 2180 ml 1900 ml Output Total 1150 ml 1130 ml Balance 1030 ml 770 ml Exam Review of Systems: CONSTITUTIONAL: No fevers, chills. PULMONARY: No sob CARDIOVASCULAR: No chest pain/palpitations GASTROINTESTINAL: No nausea/vomiting. GENITOURINARY: No hematuria/dysuria. MUSCULOSKELETAL: No myagias/arthalgias. PSYCHIATRIC: The patient denies depression. NEUROLOGIC: lethargic Constitutional: other (sleeping, arousable) Psych: no complaints Head: normocephalic ENMT: mucosa pink and moist Neck: jvd (9 cm water), supple Respiratory: diminished breath sounds (at bases/B) Cardiovascular: regular rate and rhythm Gastrointestinal: non-tender, soft Musculoskeletal: muscle tone (normal) Extremities: pitting pedal edema (Bilateral) Neurological: lethargic Results Result Diagram: 01/11/17 0541 01/11/17 0541 Results 24 hrs Laboratory Tests Test 01/11/17 17:19 01/11/17 20:44 01/12/17 02:43 01/12/17 05:29 Bedside Glucose 129 207 167 Total Bilirubin 0.2 Direct Bilirubin 0.00 Indirect Bilirubin 0.2 Aspartate Amino Transf (AST/SGOT) 229 H Alanine Aminotransferase (ALT/SGPT) 232 H Alkaline Phosphatase 52 Total Protein 4.0 L Albumin 2.0 L Test 01/12/17 08:25 01/12/17 12:00 Bedside Glucose 112 116 Medications Medications Current Medications Ondansetron HCl (Zofran Inj) 4 mg Q6H PRN IV NAUSEA AND/OR VOMITING; Start at 13:00 Acetaminophen (Tylenol Tab) 650 mg Q6H PRN PO PAIN LEVEL 1-3 OR FEVER Last administered on 01/11/17 20:50; Admin Dose 650 MG; Start 12/15/16 at 13:00 Acetaminophen/ Hydrocodone Bitart ([place] (5/325)) 1 tab Q6H PRN PO PAIN LEVEL 4 -6 Last administered on 12/15/16 22:08; Admin Dose 1 TAB; Start 12/15/16 at 13: 00 Morphine Sulfate (morphine) 2 mg Q4H PRN IV PAIN LEVEL 7-10 Last administered on 01/08/17 01:53; Admin Dose 2 MG; Start 12/15/16 at 13:00 Magnesium Hydroxide (Milk Of Mag) 30 ml DAILY PRN PO CONSTIPATION Last administered on 01/02/17 02:07; Admin Dose 30 ML; Start 12/15/16 at 13:00 Bisacodyl (Dulcolax) 5 mg DAILY PRN PO CONSTIPATION Last administered on 17:44; Admin Dose 5 MG; Start 12/15/16 at 13:00 Famotidine (Pepcid) 20 mg Q12 PO Last administered on 01/12/17 08:41; Admin Dose 20 MG; Start 12/15/16 at 21:00 Aspirin (Aspirin) 325 mg DAILY PO Last administered on 01/12/17 08:41; Admin Dose 325 MG; Start 12/16/16 at 09:00 Atorvastatin Calcium (Lipitor) 80 mg QHS PO Last administered on 01/07/17 21: 35; Admin Dose 80 MG; Start 12/15/16 at 21:00; Status Future Hold Glucose (Glutose) 15 gm Q15M PRN PO DECREASED GLUCOSE; Start 12/15/16 at 14:00 Glucose (Glutose) 22.5 gm Q15M PRN PO DECREASED GLUCOSE; Start 12/15/16 at 14: 00 Glucagon (Glucagen) 1 mg Q15M PRN IM DECREASED GLUCOSE; Start 12/15/16 at 14:00 Glucose (Glutose) 15 gm Q15M PRN BUCCAL DECREASED GLUCOSE; Start 12/15/16 at 14 :00 Cholecalciferol (Vitamin D) 1,000 unit DAILY PO Last administered on 01/12/17 08:42; Admin Dose 1,000 UNIT; Start 12/16/16 at 09:00 Dextrose (D50w Syringe) 25 ml Q15M PRN IV Till BS 80 mg/dL or above x2 Last administered on 01/04/17 20:11; Admin Dose 25 ML; Start 12/18/16 at 14:00 Dextrose (D50w Syringe) 50 ml Q15M PRN IV Till BS 80 mg/dL or above x2 Last administered on 01/08/17 08:15; Admin Dose 50 ML; Start 12/18/16 at 14:00 Amlodipine Besylate (Norvasc) 5 mg DAILY PO Last administered on 01/12/17 08: 42; Admin Dose 5 MG; Start 12/21/16 at 09:00 Hydralazine HCl (Apresoline) 10 mg Q4H PRN IV sbp > 160 Last administered on 16:05; Admin Dose 10 MG; Start 12/22/16 at 06:30 Hydralazine HCl (Apresoline) 100 mg Q8 PO Last administered on 01/12/17 14:41 ; Admin Dose 100 MG; Start 01/01/17 at 14:00 Clonidine HCl (Catapres-Tts 2 Patch) 1 patch Q7D TRANSDERM Last administered on 01/12/17 12:30; Admin Dose 1 PATCH; Start 01/05/17 at 12:00 Diagnostic Test (Pha) (Accu-Chek) 1 ea 02 XX Last administered on 01/12/17 02: 45; Admin Dose 1 EA; Start 01/08/17 at 02:00 Insulin Glargine 25 unit 25 unit DAILY@20 SC Last administered on 01/11/17 20: 47; Admin Dose 25 UNIT; Start 01/08/17 at 20:00 Sodium Chloride (NS) 1,000 ml @ 125 mls/hr Q8H IV Last administered on 12:32; Admin Dose 125 MLS/HR; Start 01/08/17 at 17:00 Haloperidol (Haldol) 3 mg Q6H PRN IM AGITATION Last administered on 01/11/17 04:24; Admin Dose 3 MG; Start 01/08/17 at 19:00 Carvedilol (Coreg) 25 mg BID PO Last administered on 01/12/17 08:42; Admin Dose 25 MG; Start 01/10/17 at 21:00 Enoxaparin Sodium (Lovenox) 110 mg Q12 SC Last administered on 01/12/17 08:47 ; Admin Dose 110 MG; Start 01/11/17 at 11:30 Tamsulosin HCl 0.4 mg 0.4 mg BID PO Last administered on 01/12/17 12:32; Admin Dose 0.4 MG; Start 01/12/17 at 11:00 Albumin Human (Albumin Human 25%) 100 ml @ 100 mls/hr DAILY IV Last administered on 01/12/17 12:29; Admin Dose 100 MLS/HR; Start 01/12/17 at 11:00 ; Stop 01/17/17 at 10:59 VI ADAMES January 12, 2017 16:00
--- NOTE | 2017-01-12 18:56 | RADRPT ---
PROCEDURE: MR Brain without contrast. CLINICAL INDICATION: 41-year-old male with confusion, severe sepsis status post non-ST elevation M I. TECHNIQUE: An MRI of the brain was performed without contrast utilizing the following sequences: Sagittal T1 weighted, sagittal FLAIR, axial T1, axial FLAIR, axial T2 weighted, axial diffusion weig hted, axial ADC mapping. Images were reviewed on a PACS workstation. COMPARISON: No prior studies are available for comparison. FINDINGS: Diffusion weighted sequences demonstrate no evidence of acute lacunar or lobar infarction. There 25 -30 periventricular, pericallosal and subcortical to the / FLAIR signal hyperintensities involving t he bilateral cerebral hemispheres, and the right descending cortical spinal tract. No definite diff usion restricting lesions are seen. No definite perivenular lesions are seen. There is no intracran ial hemorrhage, extra-axial fluid collection, mass lesion, midline shift or hydrocephalous. There i s mild prominence of the lateral ventricles. The cerebral sulci and third ventricle are normal in c aliber. The basal cisterns are patent. Normal flow voids are visible the proximal intracranial ar teries and dural sinuses, indicating patency. The midline structures are intact. There is mild mucosal thickening of the bilateral ethmoid air cells and left maxillary sinus. There is diffuse fluid opacification of the bilateral mastoid air cells and middle ear cavities. The orb its, calvarium and extracranial soft tissues are normal in appearance. IMPRESSION: 1. 25-30 periventricular, pericallosal and subcortical white matter lesions, which are nonspecific. These may be related to etiologies such as demyelinating disease versus early microangiopathic demian nges with other etiologies not excluded. Post contrast MRI of the brain is recommended for further evaluation. 2. Mild central cerebral volume loss. 3. No acute intracranial abnormality. No intracranial hemorrhage, mass lesion, infarction or hydro cephalous. RPTAT: HGAS .Donald Huber MD, Date Time Electronically viewed and signed by .Donald Huber MD, MD on 01/12/2017 18:56 .S/
[2017-01-12] MEDS: LISINOPRIL 20 MG TAB PO SCH (19:23)
[2017-01-12 19:24] VITALS: BP 191/91; RESP 18
[2017-01-12 20:42] VITALS: BP 189/90; RESP 18
[2017-01-12] MEDS: INSULIN GLARGINE [LANtus] 3 ML PEN SC SCH (20:45)
[2017-01-13] VITALS: BP 159/76; PULSE 78
[2017-01-13] MEDS: ACCU-CHEK XX SCH (02:00)
[2017-01-13 05:43] LABS: ADD SCAN DIFF NO
[2017-01-13 05:47] LABS: EOSINOPHILS # 0.3 10^3/ul (0.0-0.5); EOSINOPHILS % 10.1 % (0.0-7.0); HEMATOCRIT 22.9 % (42.0-52.0); HEMOGLOBIN 7.3 g/dl (14.0-18.0); LYMPHOCYTES % 28.7 % (15.0-51.0); MEAN CORPUSCULAR HEMOGLOBIN 27.2 pg (29.0-33.0); MEAN CORPUSCULAR HGB CONC 31.9 g/dl (32.0-37.0); MEAN CORPUSCULAR VOLUME 85.4 fl (82.0-101.0); MEAN PLATELET VOLUME 10.8 fl (7.4-10.4); MONOCYTE # 0.4 10^3/ul (0.3-0.9); MONOCYTES % 11.8 % (0.0-11.0); NEUTROPHIL # 1.7 10^3/ul (1.6-7.5); NEUTROPHILS % 48.8 % (39.0-77.0); PLATELET COUNT 159 10^3/UL (140-415); RED BLOOD COUNT 2.68 10^6/ul (4.70-6.10); RED CELL DISTRIBUTION WIDTH 13.7 % (11.5-14.5); WHITE BLOOD COUNT 3.4 10^3/ul (4.8-10.8)
[2017-01-13] MEDS: FUROSEMIDE 20 MG INJ IV SCH ×2 (05:48→18:12)
[2017-01-13] MEDS: SOD CHLORIDE 0.9% 1,000 ML IV SCH ×2 (05:52→17:00)
[2017-01-13 06:05] LABS: ALBUMIN 2.3 g/dl (3.3-4.9)
[2017-01-13 06:08] LABS: BILIRUBIN,INDIRECT 0.2 mg/dl (0-1.1); BILIRUBIN,TOTAL 0.2 mg/dl (0.2-1.3); CREATININE 0.74 mg/dl (0.61-1.24); TOTAL PROTEIN 4.6 g/dl (6.1-8.1)
[2017-01-13 06:09] LABS: CALCIUM 7.9 mg/dl (8.4-10.2); MAGNESIUM 1.4 mg/dl (1.7-2.5)
[2017-01-13 06:21] LABS: POTASSIUM 2.9 mmol/L (3.5-5.1)
[2017-01-13] MEDS ORDERED: MAGNESIUM SULFATE 2 GM/50 ML 50 ML IVPB ONE (06:30)
[2017-01-13] MEDS ORDERED: POTASSIUM CHLORIDE 250 ML IVPB ONE (06:45)
[2017-01-13] MEDS ORDERED: POTASSIUM CHLORIDE (SR) 20 MEQ TAB PO ONE (06:48)
[2017-01-13 08:10] VITALS: BP 177/81; RESP 18
[2017-01-13] MEDS: INSULIN ASPART [NOVOLOG] 3 ML PEN SC SCH ×4 (08:15→21:00)
[2017-01-13] MEDS: SEVELAMER CARBONATE 0.8 GM PKT PO SCH ×3 (08:53→18:08)
[2017-01-13] MEDS: LISINOPRIL 20 MG TAB PO SCH (08:54)
[2017-01-13] MEDS: CHOLECALCIFEROL 1,000 UNIT TAB PO SCH (08:54)
[2017-01-13] MEDS: TAMSULOSIN (SR) 0.4 MG CAP PO SCH ×2 (08:54→21:08)
[2017-01-13] MEDS: AMLODIPINE 5 MG TAB PO SCH ×2 (08:54→21:07)
[2017-01-13] MEDS: ASPIRIN 325 MG TAB PO SCH (08:54)
[2017-01-13] MEDS: FAMOTIDINE 20 MG TAB PO SCH ×2 (08:54→21:13)
[2017-01-13] MEDS: ALBUMIN HUMAN 25% 100 ML IV SCH (09:11)
[2017-01-13] MEDS: ENOXAPARIN 100 MG/ML SYG SC SCH ×2 (09:30→21:16)
--- NOTE | 2017-01-13 11:01 | PN ---
Date/Time of Note Date/Time of Note DATE: 01/13/17 TIME: 10:57 Assessment/Plan VTE Prophylaxis VTE Prophylaxis Intervention: LMWH Lines/Catheters IV [facility]ter Type (from [facility]): PICC Line Central line still needed: Yes Urinary Cath still in place: No Assessment/Plan Assessment/Plan 1. Sepsis secondary to underlying community-acquired pneumonia with septic shock - resolved now. 2. Acute hypoxic respiratory failure. Most probably secondary to underlying pneumonia Patient got intubated on 12/18/2016, extubated on 01/04/17. Now stable on room air 3. Elevated troponins. Most probably a type 2 event from underlying sepsis and underlying acute kidney injury. 4. Acute kidney injury: resolved 5. Type 2 diabetes mellitus. Poor home control. A1C is high (send out) : Improved in-house control on current regimen. 6. Dyslipidemia. Continue statins. 7. Essential hypertension. Continue antihypertensives. 8. Microcytic, hypochromic anemia. Etiology unclear r/o occult blood loss. Iron panel showing iron deficiency. Continue iron supplements. 9. Vitamin D deficiency. Continue supplements. 10. Positive DAISY with unclear clinical significance. Continue to monitor ,f/u rheum rec's. Steroids have been discontinued in the setting of myopathy. 11. 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 * Creatinine kinase level improves daily, goal for discharge is less than 2000 , patient able to move extremities better 12. Cocaine abuse: * needs counselling when stable 13. DVT: * Patient will be started on therapeutic Lovenox, as he still poses a very significant fall risk at this time Disposition: * Patient remains on anticoagulation for DVT treatment. Will start patient on Xarelto in anticipation of possible discharge * Will contact cardiology and see if Lexiscan is being planned during this hospitalization. If needed by cardiology he may be able to be discharged to his family's care. Of note is that I think patient is going to be very difficult to care for because of his severe myopathy, lower extremity weakness and obesity. Patient however is a dominant diet has multiple family members that can help care for him. I even asked him if 1 of the reasons he wanted to leave was because he wanted to use cocaine, but he adamantly denied this. If the family is okay with caring for him, I have no objections to him being discharged to their care once cleared by cardiology * We will plan for transfusion of 1 unit of packed red cells for hemoglobin of 7.3 on this patient who is being anticoagulated. DVT prophylaxis. Therapeutic Lovenox / xarelto Gastrointestinal prophylaxis. Histamine 2 receptor blockers. Antibiotics per ID. Subjective 24 Hr Interval Summary Free Text/Dictation Patient desirous of discharge to the point of being tearful. He has shows me has multiple family members that can care for him. Exam/Review of Systems Vital Signs Vitals Vital Signs Date Time Temp Pulse Resp B/P Pulse Ox O2 Delivery O2 Flow Rate FiO2 01/13/17 08:10 98.7 93 18 177/81 94 01/12/17 19:24 Room Air 01/10/17 09:30 4.0 Intake and Output 01/12/17 01/12/17 01/13/17 15:00 23:00 07:00 Intake Total 700 ml 1960 ml 1400 ml Output Total 1220 ml 1100 ml 600 ml Balance -520 ml 860 ml 800 ml Exam Constitutional: alert, obese, oriented Head: atraumatic, normocephalic Eyes: PERRL ENMT: mucosa pink and moist Neck: supple Respiratory: clear to auscultation, normal air movement Cardiovascular: regular rate and rhythm, No murmurs/extra sounds Gastrointestinal: bowel sounds, non-tender, soft Musculoskeletal: other (Patient is still quite weak in bilateral lower extremities, even though this is much improved than previous. He also has significant muscle wasting.) Results Result Diagram: 01/13/17 0500 01/13/17 0442 Results 24 hrs Laboratory Tests Test 01/12/17 12:00 01/12/17 17:12 01/12/17 20:40 01/13/17 04:42 Bedside Glucose 116 117 126 Sodium Level 140 Potassium Level 2.9 *L Chloride Level 104 Carbon Dioxide Level 28 Anion Gap 11 Blood Urea Nitrogen 7 Creatinine 0.74 Glucose Level 88 # Calcium Level 7.9 L Magnesium Level 1.4 L Total Bilirubin 0.2 Direct Bilirubin 0.00 Indirect Bilirubin 0.2 Aspartate Amino Transf (AST/SGOT) 194 H Alanine Aminotransferase (ALT/SGPT) 222 H Alkaline Phosphatase 55 Creatine Kinase 1414 #H Total Protein 4.6 L Albumin 2.3 L Globulin 2.30 Albumin/Globulin Ratio 1.00 Test 01/13/17 05:00 01/13/17 08:01 White Blood Count 3.4 L Red Blood Count 2.68 L Hemoglobin 7.3 L Hematocrit 22.9 L Mean Corpuscular Volume 85.4 Mean Corpuscular Hemoglobin 27.2 L Mean Corpuscular Hemoglobin Concent 31.9 L Red Cell Distribution Width 13.7 Platelet Count 159 Mean Platelet Volume 10.8 H Neutrophils % 48.8 Lymphocytes % 28.7 Monocytes % 11.8 H Eosinophils % 10.1 H Basophils % 0.0 Nucleated Red Blood Cells % 0.0 Neutrophils # 1.7 Lymphocytes # 1.0 Monocytes # 0.4 Eosinophils # 0.3 Basophils # 0.0 Nucleated Red Blood Cells # 0.0 Bedside Glucose 99 Medications Medications Current Medications Ondansetron HCl (Zofran Inj) 4 mg Q6H PRN IV NAUSEA AND/OR VOMITING; Start at 13:00 Acetaminophen (Tylenol Tab) 650 mg Q6H PRN PO PAIN LEVEL 1-3 OR FEVER Last administered on 01/11/17 20:50; Admin Dose 650 MG; Start 12/15/16 at 13:00 Acetaminophen/ Hydrocodone Bitart ([place] (5/325)) 1 tab Q6H PRN PO PAIN LEVEL 4 -6 Last administered on 12/15/16 22:08; Admin Dose 1 TAB; Start 12/15/16 at 13: 00 Morphine Sulfate (morphine) 2 mg Q4H PRN IV PAIN LEVEL 7-10 Last administered on 01/08/17 01:53; Admin Dose 2 MG; Start 12/15/16 at 13:00 Magnesium Hydroxide (Milk Of Mag) 30 ml DAILY PRN PO CONSTIPATION Last administered on 01/02/17 02:07; Admin Dose 30 ML; Start 12/15/16 at 13:00 Bisacodyl (Dulcolax) 5 mg DAILY PRN PO CONSTIPATION Last administered on 17:44; Admin Dose 5 MG; Start 12/15/16 at 13:00 Famotidine (Pepcid) 20 mg Q12 PO Last administered on 01/13/17 08:54; Admin Dose 20 MG; Start 12/15/16 at 21:00 Aspirin (Aspirin) 325 mg DAILY PO Last administered on 01/13/17 08:54; Admin Dose 325 MG; Start 12/16/16 at 09:00 Atorvastatin Calcium (Lipitor) 80 mg QHS PO Last administered on 01/07/17 21: 35; Admin Dose 80 MG; Start 12/15/16 at 21:00; Status Future Hold Glucose (Glutose) 15 gm Q15M PRN PO DECREASED GLUCOSE; Start 12/15/16 at 14:00 Glucose (Glutose) 22.5 gm Q15M PRN PO DECREASED GLUCOSE; Start 12/15/16 at 14: 00 Glucagon (Glucagen) 1 mg Q15M PRN IM DECREASED GLUCOSE; Start 12/15/16 at 14:00 Glucose (Glutose) 15 gm Q15M PRN BUCCAL DECREASED GLUCOSE; Start 12/15/16 at 14 :00 Cholecalciferol (Vitamin D) 1,000 unit DAILY PO Last administered on 01/13/17 08:54; Admin Dose 1,000 UNIT; Start 12/16/16 at 09:00 Dextrose (D50w Syringe) 25 ml Q15M PRN IV Till BS 80 mg/dL or above x2 Last administered on 01/04/17 20:11; Admin Dose 25 ML; Start 12/18/16 at 14:00 Dextrose (D50w Syringe) 50 ml Q15M PRN IV Till BS 80 mg/dL or above x2 Last administered on 01/08/17 08:15; Admin Dose 50 ML; Start 12/18/16 at 14:00 Hydralazine HCl (Apresoline) 10 mg Q4H PRN IV sbp > 160 Last administered on 16:05; Admin Dose 10 MG; Start 12/22/16 at 06:30 Hydralazine HCl (Apresoline) 100 mg Q8 PO Last administered on 01/13/17 05:49 ; Admin Dose 100 MG; Start 01/01/17 at 14:00 Clonidine HCl (Catapres-Tts 2 Patch) 1 patch Q7D TRANSDERM Last administered on 01/12/17 12:30; Admin Dose 1 PATCH; Start 01/05/17 at 12:00 Diagnostic Test (Pha) (Accu-Chek) 1 ea 02 XX Last administered on 01/12/17 02: 45; Admin Dose 1 EA; Start 01/08/17 at 02:00 Insulin Glargine 25 unit 25 unit DAILY@20 SC Last administered on 01/12/17 20: 45; Admin Dose 25 UNIT; Start 01/08/17 at 20:00 Sodium Chloride (NS) 1,000 ml @ 125 mls/hr Q8H IV Last administered on 05:52; Admin Dose 125 MLS/HR; Start 01/08/17 at 17:00 Haloperidol (Haldol) 3 mg Q6H PRN IM AGITATION Last administered on 01/11/17 04:24; Admin Dose 3 MG; Start 01/08/17 at 19:00 Carvedilol (Coreg) 25 mg BID PO Last administered on 01/13/17 08:53; Admin Dose 25 MG; Start 01/10/17 at 21:00 Enoxaparin Sodium (Lovenox) 110 mg Q12 SC Last administered on 01/13/17 09:30 ; Admin Dose 110 MG; Start 01/11/17 at 11:30 Tamsulosin HCl 0.4 mg 0.4 mg BID PO Last administered on 01/13/17 08:54; Admin Dose 0.4 MG; Start 01/12/17 at 11:00 Albumin Human (Albumin Human 25%) 100 ml @ 100 mls/hr DAILY IV Last administered on 01/13/17 09:11; Admin Dose 100 MLS/HR; Start 01/12/17 at 11:00 ; Stop 01/17/17 at 10:59 Amlodipine Besylate (Norvasc) 5 mg BID PO Last administered on 01/13/17 08:54 ; Admin Dose 5 MG; Start 01/12/17 at 21:00 Lisinopril (Zestril) 20 mg DAILY PO Last administered on 01/13/17 08:54; Admin Dose 20 MG; Start 01/12/17 at 17:30 Procedures Procedures PROCEDURE: MR Brain without contrast. CLINICAL INDICATION: 41-year-old male with confusion, severe sepsis status post non-ST elevation MT. TECHNIQUE: An MRI of the brain was performed without contrast utilizing the following sequences: Sagittal T1 weighted, sagittal FLAIR, axial T1, axial FLAIR, axial T2 weighted, axial diffusion weighted, axial ADC mapping. Images were reviewed on a PACS workstation. COMPARISON: No prior studies are available for comparison. FINDINGS: Diffusion weighted sequences demonstrate no evidence of acute lacunar or lobar infarction. There 25-30 periventricular, pericallosal and subcortical to the / FLAIR signal hyperintensities involving the bilateral cerebral hemispheres, and the right descending cortical spinal tract. No definite diffusion restricting lesions are seen. No definite perivenular lesions are seen. There is no intracranial hemorrhage, extra-axial fluid collection, mass lesion, midline shift or hydrocephalous. There is mild prominence of the lateral ventricles. The cerebral sulci and third ventricle are normal in caliber. The basal cisterns are patent. Normal flow voids are visible the proximal intracranial arteries and dural sinuses, indicating patency. The midline structures are intact. There is mild mucosal thickening of the bilateral ethmoid air cells and left maxillary sinus. There is diffuse fluid opacification of the bilateral mastoid air cells and middle ear cavities. The orbits, calvarium and extracranial soft tissues are normal in appearance. IMPRESSION: 1. 25-30 periventricular, pericallosal and subcortical white matter lesions, which are nonspecific. These may be related to etiologies such as demyelinating disease versus early microangiopathic changes with other etiologies not excluded. Post contrast MRI of the brain is recommended for further evaluation. 2. Mild central cerebral volume loss. 3. No acute intracranial abnormality. No intracranial hemorrhage, mass lesion , infarction or hydrocephalous. RPTAT: HGAS .Donald Huber MD, Date Time Electronically viewed and signed by .Donald Huber MD, on 01/12/2017 18: 56 .S/ CC: LEXII REED BOLATITO M. January 13, 2017 11:01
[2017-01-13] MEDS ORDERED: MAGNESIUM SULFATE 3 GM in SOD CHLORIDE 0.9% 100 ML IVPB ONE (12:00)
[2017-01-13 12:21] LABS: HEMATOCRIT 21.3 % (42.0-52.0)
--- NOTE | 2017-01-13 15:42 | CONS ---
Date/Time of Note Date/Time of Note DATE: 01/13/17 TIME: 15:39 Assessment/Plan Assessment/Plan Additional Assessment/Plan ACS secondary to demand ischemia and sepsis CHF Hypertension Dyslipidemia Diabetes Sepsis Encephalopathy Renal failure Pneumonia Hypoxic respiratory failure Continue Lasix Avoid Volume Overload Continue Coreg and Norvasc Continue Lisinopril and Hydralazine Continue Clonidine Patch Continue Antibiotics Continue Insulin Continue GI and DVT Prophylaxis Consultation Date/Type/Reason Admit Date/Time Dec 15, 2016 at 11:20 Psychological: no complaints Social History Smoking Status: Current every day smoker Exam/Review of Systems Vital Signs Vitals Vital Signs Date Time Temp Pulse Resp B/P Pulse Ox O2 Delivery O2 Flow Rate FiO2 01/13/17 08:10 98.7 93 18 177/81 94 01/12/17 19:24 Room Air 01/10/17 09:30 4.0 Intake and Output 01/12/17 01/12/17 01/13/17 15:00 23:00 07:00 Intake Total 700 ml 1960 ml 1400 ml Output Total 1220 ml 1100 ml 600 ml Balance -520 ml 860 ml 800 ml Exam Head: atraumatic, normocephalic Eyes: EOMI Neck: non-tender, supple Respiratory: clear to auscultation Cardiovascular: regular rate and rhythm Gastrointestinal: nl liver, spleen, non-tender, soft Extremities: normal pulses Results Result Diagram: 01/13/17 1204 01/13/17 0442 Results 24 hrs Laboratory Tests Test 01/12/17 17:12 01/12/17 20:40 01/13/17 04:42 01/13/17 05:00 Bedside Glucose 117 126 Sodium Level 140 Potassium Level 2.9 *L Chloride Level 104 Carbon Dioxide Level 28 Anion Gap 11 Blood Urea Nitrogen 7 Creatinine 0.74 Glucose Level 88 # Calcium Level 7.9 L Magnesium Level 1.4 L Total Bilirubin 0.2 Direct Bilirubin 0.00 Indirect Bilirubin 0.2 Aspartate Amino Transf (AST/SGOT) 194 H Alanine Aminotransferase (ALT/SGPT) 222 H Alkaline Phosphatase 55 Creatine Kinase 1414 #H Total Protein 4.6 L Albumin 2.3 L Globulin 2.30 Albumin/Globulin Ratio 1.00 White Blood Count 3.4 L Red Blood Count 2.68 L Hemoglobin 7.3 L Hematocrit 22.9 L Mean Corpuscular Volume 85.4 Mean Corpuscular Hemoglobin 27.2 L Mean Corpuscular Hemoglobin Concent 31.9 L Red Cell Distribution Width 13.7 Platelet Count 159 Mean Platelet Volume 10.8 H Neutrophils % 48.8 Lymphocytes % 28.7 Monocytes % 11.8 H Eosinophils % 10.1 H Basophils % 0.0 Nucleated Red Blood Cells % 0.0 Neutrophils # 1.7 Lymphocytes # 1.0 Monocytes # 0.4 Eosinophils # 0.3 Basophils # 0.0 Nucleated Red Blood Cells # 0.0 Test 01/13/17 08:01 01/13/17 12:04 01/13/17 12:18 Bedside Glucose 99 105 Hemoglobin 7.0 L Hematocrit 21.3 L Medications Medications Current Medications Ondansetron HCl (Zofran Inj) 4 mg Q6H PRN IV NAUSEA AND/OR VOMITING; Start at 13:00 Acetaminophen (Tylenol Tab) 650 mg Q6H PRN PO PAIN LEVEL 1-3 OR FEVER Last administered on 01/11/17 20:50; Admin Dose 650 MG; Start 12/15/16 at 13:00 Acetaminophen/ Hydrocodone Bitart ([place] (5/325)) 1 tab Q6H PRN PO PAIN LEVEL 4 -6 Last administered on 12/15/16 22:08; Admin Dose 1 TAB; Start 12/15/16 at 13: 00 Morphine Sulfate (morphine) 2 mg Q4H PRN IV PAIN LEVEL 7-10 Last administered on 01/08/17 01:53; Admin Dose 2 MG; Start 12/15/16 at 13:00 Magnesium Hydroxide (Milk Of Mag) 30 ml DAILY PRN PO CONSTIPATION Last administered on 01/02/17 02:07; Admin Dose 30 ML; Start 12/15/16 at 13:00 Bisacodyl (Dulcolax) 5 mg DAILY PRN PO CONSTIPATION Last administered on 17:44; Admin Dose 5 MG; Start 12/15/16 at 13:00 Famotidine (Pepcid) 20 mg Q12 PO Last administered on 01/13/17 08:54; Admin Dose 20 MG; Start 12/15/16 at 21:00 Aspirin (Aspirin) 325 mg DAILY PO Last administered on 01/13/17 08:54; Admin Dose 325 MG; Start 12/16/16 at 09:00 Atorvastatin Calcium (Lipitor) 80 mg QHS PO Last administered on 01/07/17 21: 35; Admin Dose 80 MG; Start 12/15/16 at 21:00; Status Future Hold Glucose (Glutose) 15 gm Q15M PRN PO DECREASED GLUCOSE; Start 12/15/16 at 14:00 Glucose (Glutose) 22.5 gm Q15M PRN PO DECREASED GLUCOSE; Start 12/15/16 at 14: 00 Glucagon (Glucagen) 1 mg Q15M PRN IM DECREASED GLUCOSE; Start 12/15/16 at 14:00 Glucose (Glutose) 15 gm Q15M PRN BUCCAL DECREASED GLUCOSE; Start 12/15/16 at 14 :00 Cholecalciferol (Vitamin D) 1,000 unit DAILY PO Last administered on 01/13/17 08:54; Admin Dose 1,000 UNIT; Start 12/16/16 at 09:00 Dextrose (D50w Syringe) 25 ml Q15M PRN IV Till BS 80 mg/dL or above x2 Last administered on 01/04/17 20:11; Admin Dose 25 ML; Start 12/18/16 at 14:00 Dextrose (D50w Syringe) 50 ml Q15M PRN IV Till BS 80 mg/dL or above x2 Last administered on 01/08/17 08:15; Admin Dose 50 ML; Start 12/18/16 at 14:00 Hydralazine HCl (Apresoline) 10 mg Q4H PRN IV sbp > 160 Last administered on 16:05; Admin Dose 10 MG; Start 12/22/16 at 06:30 Hydralazine HCl (Apresoline) 100 mg Q8 PO Last administered on 01/13/17 05:49 ; Admin Dose 100 MG; Start 01/01/17 at 14:00 Clonidine HCl (Catapres-Tts 2 Patch) 1 patch Q7D TRANSDERM Last administered on 01/12/17 12:30; Admin Dose 1 PATCH; Start 01/05/17 at 12:00 Diagnostic Test (Pha) (Accu-Chek) 1 ea 02 XX Last administered on 01/12/17 02: 45; Admin Dose 1 EA; Start 01/08/17 at 02:00 Insulin Glargine 25 unit 25 unit DAILY@20 SC Last administered on 01/12/17 20: 45; Admin Dose 25 UNIT; Start 01/08/17 at 20:00 Sodium Chloride (NS) 1,000 ml @ 125 mls/hr Q8H IV Last administered on 05:52; Admin Dose 125 MLS/HR; Start 01/08/17 at 17:00 Haloperidol (Haldol) 3 mg Q6H PRN IM AGITATION Last administered on 01/11/17 04:24; Admin Dose 3 MG; Start 01/08/17 at 19:00 Carvedilol (Coreg) 25 mg BID PO Last administered on 01/13/17 08:53; Admin Dose 25 MG; Start 01/10/17 at 21:00 Enoxaparin Sodium (Lovenox) 110 mg Q12 SC Last administered on 01/13/17 09:30 ; Admin Dose 110 MG; Start 01/11/17 at 11:30 Tamsulosin HCl 0.4 mg 0.4 mg BID PO Last administered on 01/13/17 08:54; Admin Dose 0.4 MG; Start 01/12/17 at 11:00 Albumin Human (Albumin Human 25%) 100 ml @ 100 mls/hr DAILY IV Last administered on 01/13/17 09:11; Admin Dose 100 MLS/HR; Start 01/12/17 at 11:00 ; Stop 01/17/17 at 10:59 Amlodipine Besylate (Norvasc) 5 mg BID PO Last administered on 01/13/17 08:54 ; Admin Dose 5 MG; Start 01/12/17 at 21:00 Lisinopril (Zestril) 20 mg DAILY PO Last administered on 01/13/17 08:54; Admin Dose 20 MG; Start 01/12/17 at 17:30 NIDA GALLO M.D. January 13, 2017 15:42
[2017-01-13 16:05] VITALS: BP 163/78; PULSE 84; RESP 18
[2017-01-13] MEDS ORDERED: LISI40TA9 PO (18:19)
[2017-01-13] MEDS ORDERED: CARV25TA79 PO (18:19)
[2017-01-13] MEDS ORDERED: AMLO-145 PO (18:19)
[2017-01-13] MEDS ORDERED: POTA20TA96 PO (18:19)
[2017-01-13] MEDS ORDERED: LANT3I SC (18:19)
[2017-01-13] MEDS ORDERED: CHOL100062 PO (18:19)
[2017-01-13] MEDS ORDERED: FURO40TA4 PO (18:19)
[2017-01-13] MEDS ORDERED: CLON1PAT2 TRANSDERM (18:19)
[2017-01-13] MEDS ORDERED: TAMS-14 PO (18:19)
[2017-01-13] MEDS ORDERED: FAMO20TA18 PO (18:19)
[2017-01-13] MEDS ORDERED: SEVE0.8P PO (18:19)
[2017-01-13] MEDS ORDERED: HYDR-3672 PO (18:19)
--- NOTE | 2017-01-13 18:24 | DS ---
Date/Time of Note Date/Time of Note DATE: 01/13/17 TIME: 18:19 Discharge Summary Admission/Discharge Info Admit Date/Time Dec 15, 2016 at 11:20 Discharge Date/Time Final Diagnosis 1. Sepsis secondary to underlying community-acquired pneumonia with septic shock - resolved now. 2. Acute hypoxic respiratory failure. Resolved 3. Elevated troponins. Most probably a type 2 event from underlying sepsis and underlying acute kidney injury. Patient has opted for outpatient stress test 4. Acute kidney injury: resolved 5. Type 2 diabetes mellitus. Poor home control. A1C is high (send out) : Improved in-house control on current regimen. 6. Dyslipidemia. Continue statins. 7. Essential hypertension. Continue antihypertensives. 8. Microcytic, hypochromic anemia. Iron panel showing iron deficiency. Continue iron supplements. 9. Vitamin D deficiency. Continue supplements. 10. Positive DAISY with unclear clinical significance. 11. Statin induced myopathy and transaminitis with cordell LE weakness 12. Cocaine abuse: Status post cessation counseling 13. Newly diagnosed left peroneal DVT . Patient Condition: Stable Consults 1. Willy Sanon for cardiology 2. Andrew Fernandez for infectious disease 3. uJan Mccabe for pulmonary 4. Addison Brady for rheumatology 5. LUIS Piña for nephrology 6. Suresh Moore for neurology . Hospital Course This is a 41-year-old male male who was admitted for fever cough and pleuritic chest pain with a diagnosis of sepsis secondary to community-acquired pneumonia and the type II non-ST elevation myocardial infarction. However the patient declined rapidly and ended up being intubated and ventilator dependent. He was managed aggressively with the assistance of the radiology practitioner assistant, systems requirements planner, manager combination and did very well and ended up being successfully extubated and his pneumonia improved. He was also seen by rheumatology because he was found to have a positive DAISY. However after extensive workup rheumatology thought that this was of unclear significance. He was started on low-dose steroid therapy. Because of his non- ST elevation myocardial infarction, he was also found to have dyslipidemia and started on high-dose statin therapy. He has done very well however at this time he his admission was prolonged because he developed severe myopathy in both lower extremities, and was found to have a rhabdomyolysis that was thought to have been caused by to statin therapy superimposed on his debilitated state and obesity. As of this time the patient is improving significantly, his rhabdomyolysis as all but completely resolved, but the patient still remains very weak in both lower extremities and is going to need aggressive rehab. The recommendation will be for halfway placement or at least an acute rehab placement, however the patient adamantly refuses this. He assures me that there are multiple family members at home that can help care for him and he will be very compliant with physical therapy exercises with his family to help. He is begging to be discharged home to his family. I have told him that as long as his family is willing to care for him, I feel he would do better under his family care as well. However this patient is very obese and very heavy, he might be a lot for the family to handle. If the family is willing to take him home care for him and help him with therapy, it is my opinion that the patient is safe for discharge to his family's care. However if the family cannot care for him, will have to keep him in-house for continued rehab, until such time he is safe to go home as he has refused any form of placement. Of note also is that the systems requirements planner did recommend a stress test to evaluate his elevated troponins when he first came in but the patient has requested that this be done as an outpatient and systems requirements planner has consented to this and patient has Dr. Sanon' information and will follow-up with him in the office. Comorbidities were also aggressively managed as per Med records. Patient at this time has been evaluated and examined in detail and is assessed to be in stable condition and ready for discharge. Home Meds Active Scripts Rivaroxaban* (Xarelto*) 20 Mg Tablet, 20 MG PO WITH DINNER for 30 Days, TAB 3 Refills Start February 03 2017 Prov:LEXII REED. 01/13/17 Rivaroxaban* (Xarelto*) 15 Mg Tablet, 15 MG PO BID for 21 Days, TAB Prov:LEXII REED. 01/13/17 Furosemide* (Furosemide*) 40 Mg Tablet, 40 MG PO DAILY for 30 Days, TAB Prov:LEXII REED. 01/13/17 Insulin Glargine* (Lantus*) 100 Unit/Ml Soln, 25 UNIT SC DAILY@20 for 30 Days, 2 Refills Prov:LEXII REED. 01/13/17 Famotidine* (Famotidine*) 20 Mg Tablet, 20 MG PO Q12 for 30 Days, TAB 2 Refills Prov:LEXII REED01/13/17 Sevelamer Carbonate* (Renvela*) 0.8 Gm Powd.pack, 1.6 GM PO WITH MEALS for 30 Days, 2 Refills Prov:LEXII REED 01/13/17 Hydralazine Hcl* (Apresoline*) 50 Mg Tab, 100 MG PO Q8 for 30 Days, TAB 2 [facility]17 Clonidine Patch (CLONIDINE PATCH) 0.2 Mg/24 Hr Patch, 1 PATCH TRANSDERM Q7D for 30 Days, 2 Refills Prov:LEXII REED 01/13/17 Amlodipine Besylate* (Amlodipine Besylate*) 5 Mg Tablet, 5 MG PO BID for 30 Days , TAB 2 [facility] Tamsulosin Hcl* (Flomax*) 0.4 Mg Cap.er.24h, 0.4 MG PO BID for 30 Days, CAP 1 Refill Prov:LEXII REED 01/13/17 Cholecalciferol* (Vitamin D3*) 1,000 Unit Tablet, 1000 UNIT PO DAILY for 30 Days , TAB 2 [facility] Lisinopril* (Lisinopril*) 40 Mg Tablet, 40 MG PO DAILY, #30 TAB 2 Refills Prov:LEXII REED 01/13/17 Potassium Chloride* (Potassium Chloride*) 20 Meq Tablet.er, 20 MEQ PO DAILY for 30 Days, TAB.SA 2 Refills [facility] 01/13/17 Carvedilol* (Carvedilol*) 25 Mg Tablet, 25 MG PO BID, #60 TAB 2 Refills Prov:[facility]ITAL[facility] . 01/13/17 Reported Medications Gabapentin* (Gabapentin*) 600 Mg Tablet, 600 MG PO BID, #60 TAB 12/15/16 Aspirin* (Aspirin* EC) 81 Mg Tablet.dr, 81 MG PO DAILY, TAB 12/15/16 Follow-up Plan Home with home health for physical therapy, outpatient follow-up with Dr. Willy Sanon for cardiology, and with primary care physician within 1-2 weeks. Primary Care Provider [facility] Time spent on discharge: > 30 minutes Pending Labs Laboratory Tests Test 01/12/17 20:40 01/13/17 04:42 01/13/17 05:00 01/13/17 08:01 Bedside Glucose 126mg/dL (70-220) 99mg/dL (70-220) Sodium Level 140mmol/L (135-144) Potassium Level 2.9mmol/L (3.5-5.1) Chloride Level 104mmol/L (97-110) Carbon Dioxide Level 28mmol/L (21-31) Anion Gap 11 (8-16) Blood Urea Nitrogen 7mg/dl (7-20) Creatinine 0.74mg/dl (0.61-1.24) Glucose Level 88mg/dl (70-220) Calcium Level 7.9mg/dl (8.4-10.2) Magnesium Level 1.4mg/dl (1.7-2.5) Total Bilirubin 0.2mg/dl (0.2-1.3) Direct Bilirubin 0.00mg/dl (0.00-0.20) Indirect Bilirubin 0.2mg/dl (0-1.1) Aspartate Amino Transf (AST/SGOT) 194IU/L (15-46) Alanine Aminotransferase (ALT/SGPT) 222IU/L (13-69) Alkaline Phosphatase 55IU/L (42-121) Creatine Kinase 1414IU/L (23-200) Total Protein 4.6g/dl (6.1-8.1) Albumin 2.3g/dl (3.3-4.9) Globulin 2.30g/dl (1.3-3.2) Albumin/Globulin Ratio 1.00 White Blood Count 3.410^3/ul (4.8-10.8) Red Blood Count 2.6810^6/ul (4.70-6.10) Hemoglobin 7.3g/dl (14.0-18.0) Hematocrit 22.9% (42.0-52.0) Mean Corpuscular Volume 85.4fl (82.0-101.0) Mean Corpuscular Hemoglobin 27.2pg (29.0-33.0) Mean Corpuscular Hemoglobin Concent 31.9g/dl (32.0-37.0) Red Cell Distribution Width 13.7% (11.5-14.5) Platelet Count 97156^3/UL (140-415) Mean Platelet Volume 10.8fl (7.4-10.4) Neutrophils % 48.8% (39.0-77.0) Lymphocytes % 28.7% (15.0-51.0) Monocytes % 11.8% (0.0-11.0) Eosinophils % 10.1% (0.0-7.0) Basophils % 0.0% (0.0-2.0) Nucleated Red Blood Cells % 0.0/100WBC (0.0-0.0) Neutrophils # 1.710^3/ul (1.6-7.5) Lymphocytes # 1.010^3/ul (0.8-2.9) Monocytes # 0.410^3/ul (0.3-0.9) Eosinophils # 0.310^3/ul (0.0-0.5) Basophils # 0.010^3/ul (0.0-0.1) Nucleated Red Blood Cells # 0.010^3/ul (0.0-0.0) Test 01/13/17 12:04 01/13/17 12:18 01/13/17 17:22 Hemoglobin 7.0g/dl (14.0-18.0) Hematocrit 21.3% (42.0-52.0) Bedside Glucose 105mg/dL (70-220) 133mg/dL (70-220) LEXII REED January 13, 2017 18:24
[2017-01-13] MEDS ORDERED: RIVA15TA PO (18:25)
[2017-01-13] MEDS ORDERED: RIVA20TA PO (18:25)
[2017-01-13] MEDS: HYDROCHLOROTHIAZIDE 25 MG TAB PO SCH (19:01)
[2017-01-13 20:00] VITALS: BP 173/81; RESP 20
[2017-01-13] MEDS: INSULIN GLARGINE [LANtus] 3 ML PEN SC SCH (21:15)
[2017-01-14] MEDS: ACCU-CHEK XX SCH (02:00)
[2017-01-14] MEDS: SOD CHLORIDE 0.9% 1,000 ML IV SCH ×5 (02:45→21:51)
[2017-01-14 05:33] LABS: ADD SCAN DIFF NO
[2017-01-14 05:36] LABS: EOSINOPHILS # 0.3 10^3/ul (0.0-0.5); EOSINOPHILS % 5.2 % (0.0-7.0); HEMOGLOBIN 8.6 g/dl (14.0-18.0); LYMPHOCYTES # 0.9 10^3/ul (0.8-2.9); LYMPHOCYTES % 16.2 % (15.0-51.0); MEAN CORPUSCULAR HEMOGLOBIN 27.1 pg (29.0-33.0); MEAN CORPUSCULAR HGB CONC 31.9 g/dl (32.0-37.0); MEAN CORPUSCULAR VOLUME 85.2 fl (82.0-101.0); MEAN PLATELET VOLUME 10.5 fl (7.4-10.4); MONOCYTE # 0.6 10^3/ul (0.3-0.9); MONOCYTES % 10.3 % (0.0-11.0); NEUTROPHIL # 3.8 10^3/ul (1.6-7.5); NEUTROPHILS % 67.8 % (39.0-77.0); PLATELET COUNT 173 10^3/UL (140-415); RED BLOOD COUNT 3.17 10^6/ul (4.70-6.10); RED CELL DISTRIBUTION WIDTH 14.3 % (11.5-14.5); WHITE BLOOD COUNT 5.6 10^3/ul (4.8-10.8)
[2017-01-14 05:56] LABS: ALBUMIN 2.6 g/dl (3.3-4.9); ALBUMIN/GLOBULIN RATIO 1.04; BILIRUBIN,INDIRECT 0.4 mg/dl (0-1.1); BILIRUBIN,TOTAL 0.4 mg/dl (0.2-1.3); CALCIUM 8.2 mg/dl (8.4-10.2); CREATININE 0.74 mg/dl (0.61-1.24); TOTAL PROTEIN 5.1 g/dl (6.1-8.1)
[2017-01-14 05:58] LABS: POTASSIUM 2.9 mmol/L (3.5-5.1)
[2017-01-14] MEDS ORDERED: POTASSIUM CHLORIDE (SR) 20 MEQ TAB PO STA ×2 (06:03→22:38)
[2017-01-14 06:10] VITALS: BP 178/90; PULSE 69
[2017-01-14] MEDS: FUROSEMIDE 20 MG INJ IV SCH ×2 (06:12→17:55)
[2017-01-14] MEDS: HYDROCHLOROTHIAZIDE 25 MG TAB PO SCH (06:12)
[2017-01-14] MEDS: DEXTROSE 50% 50 ML SYRINGE IV PRN (06:20)
[2017-01-14] MEDS ORDERED: POTASSIUM CHLORIDE 250 ML IVPB ONE (06:30)
[2017-01-14 07:45] VITALS: BP 150/76; RESP 20
[2017-01-14] MEDS: INSULIN ASPART [NOVOLOG] 3 ML PEN SC SCH ×4 (08:15→20:28)
[2017-01-14] MEDS: ASPIRIN 325 MG TAB PO SCH (09:55)
[2017-01-14] MEDS: SEVELAMER CARBONATE 0.8 GM PKT PO SCH ×3 (09:55→17:53)
[2017-01-14] MEDS: LISINOPRIL 20 MG TAB PO SCH (09:56)
[2017-01-14] MEDS: TAMSULOSIN (SR) 0.4 MG CAP PO SCH ×2 (09:57→20:28)
[2017-01-14] MEDS: CHOLECALCIFEROL 1,000 UNIT TAB PO SCH (09:57)
[2017-01-14] MEDS: AMLODIPINE 5 MG TAB PO SCH ×2 (09:58→20:28)
[2017-01-14] MEDS: FAMOTIDINE 20 MG TAB PO SCH ×2 (09:58→20:27)
[2017-01-14] MEDS: ENOXAPARIN 100 MG/ML SYG SC SCH (10:00)
[2017-01-14] MEDS: ALBUMIN HUMAN 25% 100 ML IV SCH (10:02)
--- NOTE | 2017-01-14 10:07 | PN ---
Date/Time of Note Date/Time of Note DATE: 01/14/17 TIME: 10:06 Assessment/Plan VTE Prophylaxis VTE Prophylaxis Intervention: other (Xarelto) Lines/Catheters IV Catheter Type (from [facility]): PICC Line Central line still needed: Yes Urinary Cath still in place: No Assessment/Plan Assessment/Plan 1. Sepsis secondary to underlying community-acquired pneumonia with septic shock - resolved now. 2. Acute hypoxic respiratory failure. Most probably secondary to underlying pneumonia Patient got intubated on 12/18/2016, extubated on 01/04/17. Now stable on room air 3. Elevated troponins. Most probably a type 2 event from underlying sepsis and underlying acute kidney injury. 4. Acute kidney injury: resolved 5. Type 2 diabetes mellitus. Poor home control. A1C is high (send out) : Improved in-house control on current regimen. 6. Dyslipidemia. Continue statins. 7. Essential hypertension. Continue antihypertensives. 8. Microcytic, hypochromic anemia. Etiology unclear r/o occult blood loss. Iron panel showing iron deficiency. Continue iron supplements. 9. Vitamin D deficiency. Continue supplements. 10. Positive DAISY with unclear clinical significance. Continue to monitor ,f/u rheum rec's. Steroids have been discontinued in the setting of myopathy. 11. 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 12. Cocaine abuse: * needs counselling when stable 13. DVT: On anticoagulation 14. Hypokalemia: We will replace Disposition: * Switch patient to Xarelto for anticoagulation * Increase lisinopril and clonidine patch for improved blood pressure control * reinforced counseling on need to quit cocaine use * Continue to hold statin /possible stress test tomorrow now that patient has consented to stay * Continue in-house rehab DVT prophylaxis. Therapeutic Lovenox / xarelto Gastrointestinal prophylaxis. Histamine 2 receptor blockers. Antibiotics per ID. Subjective 24 Hr Interval Summary Free Text/Dictation No acute overnight events. Patient tolerated blood transfusion well yesterday. Still very weak in both lower extremities. Exam/Review of Systems Vital Signs Vitals Vital Signs Date Time Temp Pulse Resp B/P Pulse Ox O2 Delivery O2 Flow Rate FiO2 01/14/17 07:45 98.3 67 20 150/76 94 01/12/17 19:24 Room Air 01/10/17 09:30 4.0 Intake and Output 01/13/17 01/13/17 01/14/17 15:00 23:00 07:00 Intake Total 350 ml 2136 ml 850 ml Output Total 2400 ml 1000 ml Balance 350 ml -264 ml -150 ml Exam Constitutional: alert, obese, oriented Head: atraumatic, normocephalic Eyes: PERRL ENMT: mucosa pink and moist Neck: supple Respiratory: clear to auscultation, normal air movement Cardiovascular: regular rate and rhythm, No murmurs/extra sounds Gastrointestinal: bowel sounds, non-tender, soft Musculoskeletal: other (Patient is still quite weak in bilateral lower extremities, even though this is much improved than previous. He also has significant muscle wasting.) Results Result Diagram: 01/14/17 0457 01/14/17 0457 Results 24 hrs Laboratory Tests Test 01/13/17 12:04 01/13/17 12:18 01/13/17 17:22 01/13/17 21:05 Hemoglobin 7.0 L Hematocrit 21.3 L Bedside Glucose 105 133 118 Test 01/14/17 04:57 01/14/17 06:09 01/14/17 06:34 01/14/17 08:12 White Blood Count 5.6 # Red Blood Count 3.17 L Hemoglobin 8.6 #L Hematocrit 27.0 #L Mean Corpuscular Volume 85.2 Mean Corpuscular Hemoglobin 27.1 L Mean Corpuscular Hemoglobin Concent 31.9 L Red Cell Distribution Width 14.3 Platelet Count 173 Mean Platelet Volume 10.5 H Neutrophils % 67.8 Lymphocytes % 16.2 Monocytes % 10.3 Eosinophils % 5.2 Basophils % 0.0 Nucleated Red Blood Cells % 0.0 Neutrophils # 3.8 Lymphocytes # 0.9 Monocytes # 0.6 Eosinophils # 0.3 Basophils # 0.0 Nucleated Red Blood Cells # 0.0 Sodium Level 137 Potassium Level 2.9 *L Chloride Level 104 Carbon Dioxide Level 29 Anion Gap 7 L Blood Urea Nitrogen 6 L Creatinine 0.74 Glucose Level 53 #L Calcium Level 8.2 L Magnesium Level 1.8 Total Bilirubin 0.4 Direct Bilirubin 0.00 Indirect Bilirubin 0.4 Aspartate Amino Transf (AST/SGOT) 149 H Alanine Aminotransferase (ALT/SGPT) 233 H Alkaline Phosphatase 64 Creatine Kinase 934 H Total Protein 5.1 L Albumin 2.6 L Globulin 2.50 Albumin/Globulin Ratio 1.04 Bedside Glucose 61 L 132 85 Medications Medications Current Medications Ondansetron HCl (Zofran Inj) 4 mg Q6H PRN IV NAUSEA AND/OR VOMITING; Start at 13:00 Acetaminophen (Tylenol Tab) 650 mg Q6H PRN PO PAIN LEVEL 1-3 OR FEVER Last administered on 01/11/17 20:50; Admin Dose 650 MG; Start 12/15/16 at 13:00 Acetaminophen/ Hydrocodone Bitart ([place] (5/325)) 1 tab Q6H PRN PO PAIN LEVEL 4 -6 Last administered on 12/15/16 22:08; Admin Dose 1 TAB; Start 12/15/16 at 13: 00 Morphine Sulfate (morphine) 2 mg Q4H PRN IV PAIN LEVEL 7-10 Last administered on 01/08/17 01:53; Admin Dose 2 MG; Start 12/15/16 at 13:00 Magnesium Hydroxide (Milk Of Mag) 30 ml DAILY PRN PO CONSTIPATION Last administered on 01/02/17 02:07; Admin Dose 30 ML; Start 12/15/16 at 13:00 Bisacodyl (Dulcolax) 5 mg DAILY PRN PO CONSTIPATION Last administered on 17:44; Admin Dose 5 MG; Start 12/15/16 at 13:00 Famotidine (Pepcid) 20 mg Q12 PO Last administered on 01/13/17 21:13; Admin Dose 20 MG; Start 12/15/16 at 21:00 Aspirin (Aspirin) 325 mg DAILY PO Last administered on 01/13/17 08:54; Admin Dose 325 MG; Start 12/16/16 at 09:00 Atorvastatin Calcium (Lipitor) 80 mg QHS PO Last administered on 01/07/17 21: 35; Admin Dose 80 MG; Start 12/15/16 at 21:00; Status Future Hold Glucose (Glutose) 15 gm Q15M PRN PO DECREASED GLUCOSE; Start 12/15/16 at 14:00 Glucose (Glutose) 22.5 gm Q15M PRN PO DECREASED GLUCOSE; Start 12/15/16 at 14: 00 Glucagon (Glucagen) 1 mg Q15M PRN IM DECREASED GLUCOSE; Start 12/15/16 at 14:00 Glucose (Glutose) 15 gm Q15M PRN BUCCAL DECREASED GLUCOSE; Start 12/15/16 at 14 :00 Cholecalciferol (Vitamin D) 1,000 unit DAILY PO Last administered on 01/13/17 08:54; Admin Dose 1,000 UNIT; Start 12/16/16 at 09:00 Dextrose (D50w Syringe) 25 ml Q15M PRN IV Till BS 80 mg/dL or above x2 Last administered on 01/14/17 06:20; Admin Dose 25 ML; Start 12/18/16 at 14:00 Dextrose (D50w Syringe) 50 ml Q15M PRN IV Till BS 80 mg/dL or above x2 Last administered on 01/08/17 08:15; Admin Dose 50 ML; Start 12/18/16 at 14:00 Hydralazine HCl (Apresoline) 10 mg Q4H PRN IV sbp > 160 Last administered on 16:05; Admin Dose 10 MG; Start 12/22/16 at 06:30 Hydralazine HCl (Apresoline) 100 mg Q8 PO Last administered on 01/14/17 06:12 ; Admin Dose 100 MG; Start 01/01/17 at 14:00 Clonidine HCl (Catapres-Tts 2 Patch) 1 patch Q7D TRANSDERM Last administered on 01/12/17 12:30; Admin Dose 1 PATCH; Start 01/05/17 at 12:00 Diagnostic Test (Pha) (Accu-Chek) 1 ea 02 XX Last administered on 01/12/17 02: 45; Admin Dose 1 EA; Start 01/08/17 at 02:00 Insulin Glargine 25 unit 25 unit DAILY@20 SC Last administered on 01/13/17 21: 15; Admin Dose 25 UNIT; Start 01/08/17 at 20:00 Sodium Chloride (NS) 1,000 ml @ 125 mls/hr Q8H IV Last administered on 02:45; Admin Dose 125 MLS/HR; Start 01/08/17 at 17:00 Haloperidol (Haldol) 3 mg Q6H PRN IM AGITATION Last administered on 01/11/17 04:24; Admin Dose 3 MG; Start 01/08/17 at 19:00 Carvedilol (Coreg) 25 mg BID PO Last administered on 01/13/17 21:14; Admin Dose 25 MG; Start 01/10/17 at 21:00 Enoxaparin Sodium (Lovenox) 110 mg Q12 SC Last administered on 01/13/17 21:16 ; Admin Dose 110 MG; Start 01/11/17 at 11:30 Tamsulosin HCl 0.4 mg 0.4 mg BID PO Last administered on 01/13/17 21:08; Admin Dose 0.4 MG; Start 01/12/17 at 11:00 Albumin Human (Albumin Human 25%) 100 ml @ 100 mls/hr DAILY IV Last administered on 01/13/17 09:11; Admin Dose 100 MLS/HR; Start 01/12/17 at 11:00 ; Stop 01/17/17 at 10:59 Amlodipine Besylate (Norvasc) 5 mg BID PO Last administered on 01/13/17 21:07 ; Admin Dose 5 MG; Start 01/12/17 at 21:00 Lisinopril (Zestril) 40 mg DAILY PO ; Start 01/14/17 at 09:00 Hydrochlorothiazide 25 mg 25 mg DAILY@06 PO Last administered on 01/14/17 06: 12; Admin Dose 25 MG; Start 01/13/17 at 18:30 Potassium Chloride (KCl 40 MEQ/250 ML NS) 250 ml @ 62.5 mls/hr ONCE ONCE IVPB Last administered on 01/14/17 08:05; Admin Dose 62.5 MLS/HR; Start 01/14/17 at 06:30; Stop 01/14/17 at 10:29 LEXII REED January 14, 2017 10:07
[2017-01-14] MEDS ORDERED: CLONIDINE 0.3 MG/24 HR PATCH TRANSDERM SCH (10:30)
--- NOTE | 2017-01-14 11:05 | CONS ---
Date/Time of Note Date/Time of Note DATE: 01/14/17 TIME: 11:04 Assessment/Plan Assessment/Plan Additional Assessment/Plan ACS secondary to demand ischemia and sepsis CHF Hypertension Dyslipidemia Diabetes Sepsis Encephalopathy Renal failure Pneumonia Hypoxic respiratory failure Hypertensive Continue Lasix Avoid Volume Overload Continue Coreg and Norvasc Continue Lisinopril and Hydralazine Continue Clonidine Patch Continue Antibiotics Continue Insulin Continue GI and DVT Prophylaxis Replete Potassium Consultation Date/Type/Reason Admit Date/Time Dec 15, 2016 at 11:20 Type of Consultation: Cardiology Referring Provider: LEXII REED Exam/Review of Systems Vital Signs Vitals Vital Signs Date Time Temp Pulse Resp B/P Pulse Ox O2 Delivery O2 Flow Rate FiO2 01/14/17 07:45 98.3 67 20 150/76 94 01/12/17 19:24 Room Air 01/10/17 09:30 4.0 Intake and Output 01/13/17 01/13/17 01/14/17 15:00 23:00 07:00 Intake Total 350 ml 2136 ml 850 ml Output Total 2400 ml 1000 ml Balance 350 ml -264 ml -150 ml Exam Head: atraumatic, normocephalic Eyes: EOMI Neck: non-tender, supple Respiratory: clear to auscultation Cardiovascular: regular rate and rhythm Gastrointestinal: nl liver, spleen, non-tender, soft Extremities: normal pulses Results Result Diagram: 01/14/17 0457 01/14/17 0457 Results 24 hrs Laboratory Tests Test 01/13/17 12:04 01/13/17 12:18 01/13/17 17:22 01/13/17 21:05 Hemoglobin 7.0 L Hematocrit 21.3 L Bedside Glucose 105 133 118 Test 01/14/17 04:57 01/14/17 06:09 01/14/17 06:34 01/14/17 08:12 White Blood Count 5.6 # Red Blood Count 3.17 L Hemoglobin 8.6 #L Hematocrit 27.0 #L Mean Corpuscular Volume 85.2 Mean Corpuscular Hemoglobin 27.1 L Mean Corpuscular Hemoglobin Concent 31.9 L Red Cell Distribution Width 14.3 Platelet Count 173 Mean Platelet Volume 10.5 H Neutrophils % 67.8 Lymphocytes % 16.2 Monocytes % 10.3 Eosinophils % 5.2 Basophils % 0.0 Nucleated Red Blood Cells % 0.0 Neutrophils # 3.8 Lymphocytes # 0.9 Monocytes # 0.6 Eosinophils # 0.3 Basophils # 0.0 Nucleated Red Blood Cells # 0.0 Sodium Level 137 Potassium Level 2.9 *L Chloride Level 104 Carbon Dioxide Level 29 Anion Gap 7 L Blood Urea Nitrogen 6 L Creatinine 0.74 Glucose Level 53 #L Calcium Level 8.2 L Magnesium Level 1.8 Total Bilirubin 0.4 Direct Bilirubin 0.00 Indirect Bilirubin 0.4 Aspartate Amino Transf (AST/SGOT) 149 H Alanine Aminotransferase (ALT/SGPT) 233 H Alkaline Phosphatase 64 Creatine Kinase 934 H Total Protein 5.1 L Albumin 2.6 L Globulin 2.50 Albumin/Globulin Ratio 1.04 Bedside Glucose 61 L 132 85 Medications Medications Current Medications Ondansetron HCl (Zofran Inj) 4 mg Q6H PRN IV NAUSEA AND/OR VOMITING; Start at 13:00 Acetaminophen (Tylenol Tab) 650 mg Q6H PRN PO PAIN LEVEL 1-3 OR FEVER Last administered on 01/11/17 20:50; Admin Dose 650 MG; Start 12/15/16 at 13:00 Acetaminophen/ Hydrocodone Bitart ([place] (5/325)) 1 tab Q6H PRN PO PAIN LEVEL 4 -6 Last administered on 12/15/16 22:08; Admin Dose 1 TAB; Start 12/15/16 at 13: 00 Morphine Sulfate (morphine) 2 mg Q4H PRN IV PAIN LEVEL 7-10 Last administered on 01/08/17 01:53; Admin Dose 2 MG; Start 12/15/16 at 13:00 Magnesium Hydroxide (Milk Of Mag) 30 ml DAILY PRN PO CONSTIPATION Last administered on 01/02/17 02:07; Admin Dose 30 ML; Start 12/15/16 at 13:00 Bisacodyl (Dulcolax) 5 mg DAILY PRN PO CONSTIPATION Last administered on 17:44; Admin Dose 5 MG; Start 12/15/16 at 13:00 Famotidine (Pepcid) 20 mg Q12 PO Last administered on 01/14/17 09:58; Admin Dose 20 MG; Start 12/15/16 at 21:00 Aspirin (Aspirin) 325 mg DAILY PO Last administered on 01/14/17 09:55; Admin Dose 325 MG; Start 12/16/16 at 09:00 Atorvastatin Calcium (Lipitor) 80 mg QHS PO Last administered on 01/07/17 21: 35; Admin Dose 80 MG; Start 12/15/16 at 21:00; Status Future Hold Glucose (Glutose) 15 gm Q15M PRN PO DECREASED GLUCOSE; Start 12/15/16 at 14:00 Glucose (Glutose) 22.5 gm Q15M PRN PO DECREASED GLUCOSE; Start 12/15/16 at 14: 00 Glucagon (Glucagen) 1 mg Q15M PRN IM DECREASED GLUCOSE; Start 12/15/16 at 14:00 Glucose (Glutose) 15 gm Q15M PRN BUCCAL DECREASED GLUCOSE; Start 12/15/16 at 14 :00 Cholecalciferol (Vitamin D) 1,000 unit DAILY PO Last administered on 01/14/17 09:57; Admin Dose 1,000 UNIT; Start 12/16/16 at 09:00 Dextrose (D50w Syringe) 25 ml Q15M PRN IV Till BS 80 mg/dL or above x2 Last administered on 01/14/17 06:20; Admin Dose 25 ML; Start 12/18/16 at 14:00 Dextrose (D50w Syringe) 50 ml Q15M PRN IV Till BS 80 mg/dL or above x2 Last administered on 01/08/17 08:15; Admin Dose 50 ML; Start 12/18/16 at 14:00 Hydralazine HCl (Apresoline) 10 mg Q4H PRN IV sbp > 160 Last administered on 16:05; Admin Dose 10 MG; Start 12/22/16 at 06:30 Hydralazine HCl (Apresoline) 100 mg Q8 PO Last administered on 01/14/17 06:12 ; Admin Dose 100 MG; Start 01/01/17 at 14:00 Diagnostic Test (Pha) 1 ea 1 ea 02 XX Last administered on 01/12/17 02:45; Admin Dose 1 EA; Start 01/08/17 at 02:00 Sodium Chloride (NS) 1,000 ml @ 125 mls/hr Q8H IV Last administered on 02:45; Admin Dose 125 MLS/HR; Start 01/08/17 at 17:00 Haloperidol (Haldol) 3 mg Q6H PRN IM AGITATION Last administered on 01/11/17 04:24; Admin Dose 3 MG; Start 01/08/17 at 19:00 Carvedilol (Coreg) 25 mg BID PO Last administered on 01/14/17 09:57; Admin Dose 25 MG; Start 01/10/17 at 21:00 Tamsulosin HCl 0.4 mg 0.4 mg BID PO Last administered on 01/14/17 09:57; Admin Dose 0.4 MG; Start 01/12/17 at 11:00 Albumin Human (Albumin Human 25%) 100 ml @ 100 mls/hr DAILY IV Last administered on 01/14/17 10:02; Admin Dose 100 MLS/HR; Start 01/12/17 at 11:00 ; Stop 01/17/17 at 10:59 Amlodipine Besylate (Norvasc) 5 mg BID PO Last administered on 01/14/17 09:58 ; Admin Dose 5 MG; Start 01/12/17 at 21:00 Lisinopril (Zestril) 40 mg DAILY PO Last administered on 01/14/17 09:56; Admin Dose 40 MG; Start 01/14/17 at 09:00 Hydrochlorothiazide (Hydrochlorothiazide) 25 mg DAILY@06 PO Last administered on 01/14/17 06:12; Admin Dose 25 MG; Start 01/13/17 at 18:30 Insulin Glargine (Lantus) 15 unit DAILY@20 SC ; Start 01/14/17 at 20:00 Clonidine HCl (Catapres-Tts 3 Patch) 1 patch Q7D TRANSDERM ; Start 01/14/17 at 10:30 NIDA GALLO M.D. January 14, 2017 11:05
[2017-01-14] MEDS ORDERED: POTASSIUM CL (0.2 MEQ/ML) IV SYG IV* SCH (11:30)
[2017-01-14] MEDS: POTASSIUM CHLORIDE 250 ML IVPB SCH ×2 (12:55→15:38)
[2017-01-14] MEDS: AMLODIPINE 10 MG TAB PO SCH (13:01)
[2017-01-14] MEDS: RIVAROXABAN 15 MG TABLET PO SCH (17:53)
[2017-01-14 19:50] VITALS: BP 161/76; RESP 18
[2017-01-14] MEDS ORDERED: INSULIN GLARGINE [LANtus] 3 ML PEN SC SCH (20:00)
[2017-01-14 22:01] VITALS: BP 153/81; PULSE 83
[2017-01-15] MEDS: ACCU-CHEK XX SCH (01:20)
[2017-01-15] MEDS: ACETAMINOPHEN 325 MG TAB PO PRN (01:20)
[2017-01-15] MEDS: HYDROCHLOROTHIAZIDE 25 MG TAB PO SCH (05:12)
[2017-01-15] MEDS: FUROSEMIDE 20 MG INJ IV SCH ×2 (05:14→17:11)
[2017-01-15 05:28] VITALS: BP 131/76; PULSE 63
[2017-01-15 05:46] LABS: ADD SCAN DIFF NO
[2017-01-15 06:01] LABS: BASOPHILS % 0.3 % (0.0-2.0); EOSINOPHILS # 0.2 10^3/ul (0.0-0.5); EOSINOPHILS % 7.1 % (0.0-7.0); HEMATOCRIT 25.3 % (42.0-52.0); MEAN CORPUSCULAR HEMOGLOBIN 27.1 pg (29.0-33.0); MEAN CORPUSCULAR HGB CONC 31.6 g/dl (32.0-37.0); MEAN CORPUSCULAR VOLUME 85.8 fl (82.0-101.0); MONOCYTE # 0.4 10^3/ul (0.3-0.9); MONOCYTES % 12.3 % (0.0-11.0); NEUTROPHIL # 1.6 10^3/ul (1.6-7.5); NEUTROPHILS % 47.7 % (39.0-77.0); PLATELET COUNT 156 10^3/UL (140-415); RED BLOOD COUNT 2.95 10^6/ul (4.70-6.10); RED CELL DISTRIBUTION WIDTH 14.7 % (11.5-14.5); WHITE BLOOD COUNT 3.3 10^3/ul (4.8-10.8)
[2017-01-15 06:50] LABS: ALBUMIN 2.3 g/dl (3.3-4.9)
[2017-01-15 06:51] LABS: POTASSIUM 3.1 mmol/L (3.5-5.1)
[2017-01-15 06:53] LABS: ALBUMIN/GLOBULIN RATIO 0.95; BILIRUBIN,INDIRECT 0.2 mg/dl (0-1.1); BILIRUBIN,TOTAL 0.2 mg/dl (0.2-1.3); CREATININE 0.83 mg/dl (0.61-1.24); TOTAL PROTEIN 4.7 g/dl (6.1-8.1)
[2017-01-15] MEDS: SEVELAMER CARBONATE 0.8 GM PKT PO SCH ×3 (08:11→17:11)
[2017-01-15] MEDS: ASPIRIN 325 MG TAB PO SCH (08:11)
[2017-01-15] MEDS: TAMSULOSIN (SR) 0.4 MG CAP PO SCH (08:12)
[2017-01-15] MEDS: LISINOPRIL 20 MG TAB PO SCH (08:12)
[2017-01-15] MEDS: ALBUMIN HUMAN 25% 100 ML IV SCH (08:12)
[2017-01-15] MEDS: AMLODIPINE 10 MG TAB PO SCH (08:12)
[2017-01-15] MEDS: CHOLECALCIFEROL 1,000 UNIT TAB PO SCH (08:12)
[2017-01-15] MEDS: INSULIN ASPART [NOVOLOG] 3 ML PEN SC SCH ×3 (08:12→17:11)
[2017-01-15] MEDS: FAMOTIDINE 20 MG TAB PO SCH (08:12)
[2017-01-15] MEDS: RIVAROXABAN 15 MG TABLET PO SCH ×2 (08:12→17:11)
--- NOTE | 2017-01-15 10:59 | PDOCDIS ---
Discharge Instructions CONDITION Patient Condition: Stable HOME CARE INSTRUCTIONS: Special Diet: Mechanical soft ACTIVITY: Activity Restrictions: Slowly Increase Activity Rest between Activity Avoid heavy lifting Do not operate Machinery Do not operate Power Tool Avoid Heavy Housework FOLLOW UP/APPOINTMENTS Appointments Please take your medications as prescribed, and see your doctor in the clinic in 1 week. CLARITA VERMA January 15, 2017 10:59
--- NOTE | 2017-01-15 11:04 | DS ---
Date/Time of Note Date/Time of Note DATE: 01/15/17 TIME: 11:02 Discharge Summary Admission/Discharge Info Admit Date/Time Dec 15, 2016 at 11:20 Discharge Date/Time Final Diagnosis 1. Sepsis secondary to underlying community-acquired pneumonia with septic shock - resolved now. 2. Acute hypoxic respiratory failure. Resolved 3. Elevated troponins. Most probably a type 2 event from underlying sepsis and underlying acute kidney injury. Patient has opted for outpatient stress test 4. Acute kidney injury: resolved 5. Type 2 diabetes mellitus. Poor home control. A1C is high (send out) : Improved in-house control on current regimen. 6. Dyslipidemia. Continue statins. 7. Essential hypertension. Continue antihypertensives. 8. Microcytic, hypochromic anemia. Iron panel showing iron deficiency. Continue iron supplements. 9. Vitamin D deficiency. Continue supplements. 10. Positive DAISY with unclear clinical significance. 11. Statin induced myopathy and transaminitis with cordell LE weakness 12. Cocaine abuse: Status post cessation counseling 13. Newly diagnosed left peroneal DVT . Patient Condition: Stable Consults 1. Willy Sanon for cardiology 2. Andrew Fernandez for infectious disease 3. Juan Mccabe for pulmonary 4. Addison Brady for rheumatology 5. LUIS Piña for nephrology 6. Suresh Moore for neurology Time spent discharge with pt today = 40 min. Patient Condition: Stable Hospital Course This is a 41-year-old male male who was admitted for fever cough and pleuritic chest pain with a diagnosis of sepsis secondary to community-acquired pneumonia and the type II non-ST elevation myocardial infarction. However the patient declined rapidly and ended up being intubated and ventilator dependent. He was managed aggressively with the assistance of the receiving and processing supervisor, transit worker, manager cargo and did very well and ended up being successfully extubated and his pneumonia improved. He was also seen by rheumatology because he was found to have a positive DAISY. However after extensive workup rheumatology thought that this was of unclear significance. He was started on low-dose steroid therapy. Because of his non- ST elevation myocardial infarction, he was also found to have dyslipidemia and started on high-dose statin therapy. He has done very well however at this time he his admission was prolonged because he developed severe myopathy in both lower extremities, and was found to have a rhabdomyolysis that was thought to have been caused by to statin therapy superimposed on his debilitated state and obesity. As of this time the patient is improving significantly, his rhabdomyolysis as all but completely resolved, but the patient still remains very weak in both lower extremities and is going to need aggressive rehab. The recommendation will be for shelter placement or at least an acute rehab placement, however the patient adamantly refuses this. He assures me that there are multiple family members at home that can help care for him and he will be very compliant with physical therapy exercises with his family to help. The patient is very obese and very heavy, but the family is willing to take him home care for him and help him with therapy. In addition, Home Health nursing and PT will be set up before d/c today. Of note also is that the transit worker did recommend a stress test to evaluate his elevated troponins when he first came in but the patient has requested that this be done as an outpatient and transit worker has consented to this and patient has Dr. Sanon' information and will follow-up with him in the office. Comorbidities were also aggressively managed as per Med records. Patient at this time has been evaluated and examined in detail and is assessed to be in stable condition and ready for discharge. Home Meds Active Scripts Rivaroxaban* (Xarelto*) 20 Mg Tablet, 20 MG PO WITH DINNER for 30 Days, TAB 3 Refills Start February 03 2017 Prov:LEXII REED . 01/13/17 Rivaroxaban* (Xarelto*) 15 Mg Tablet, 15 MG PO BID for 21 Days, TAB Prov:LEXII REED . 01/13/17 Furosemide* (Furosemide*) 40 Mg Tablet, 40 MG PO DAILY for 30 Days, TAB Prov:DEREKLEXII . 01/13/17 Insulin Glargine* (Lantus*) 100 Unit/Ml Soln, 25 UNIT SC DAILY@20 for 30 Days, 2 Refills Prov:LEXII REED . 01/13/17 Famotidine* (Famotidine*) 20 Mg Tablet, 20 MG PO Q12 for 30 Days, TAB 2 Refills Prov:LEXII REED . 01/13/17 Sevelamer Carbonate* (Renvela*) 0.8 Gm Powd.pack, 1.6 GM PO WITH MEALS for 30 Days, 2 Refills Prov:DEREK,BOLATITO M. 01/13/17 Hydralazine Hcl* (Apresoline*) 50 Mg Tab, 100 MG PO Q8 for 30 Days, TAB 2 Refills Prov:LEXII REED . 01/13/17 Clonidine Patch (CLONIDINE PATCH) 0.2 Mg/24 Hr Patch, 1 PATCH TRANSDERM Q7D for 30 Days, 2 Refills Prov:LEXII REED . 01/13/17 Amlodipine Besylate* (Amlodipine Besylate*) 5 Mg Tablet, 5 MG PO BID for 30 Days , TAB 2 Refills Prov:LEXII REED . 01/13/17 Tamsulosin Hcl* (Flomax*) 0.4 Mg Cap.er.24h, 0.4 MG PO BID for 30 Days, CAP 1 Refill Prov:LEXII REED 01/13/17 Cholecalciferol* (Vitamin D3*) 1,000 Unit Tablet, 1000 UNIT PO DAILY for 30 Days , TAB 2 Refills Prov:LEXII REED . 01/13/17 Lisinopril* (Lisinopril*) 40 Mg Tablet, 40 MG PO DAILY, #30 TAB 2 Refills Prov:LEXII REED . 01/13/17 Potassium Chloride* (Potassium Chloride*) 20 Meq Tablet.er, 20 MEQ PO DAILY for 30 Days, TAB.SA 2 Refills Prov:LEXII REED . 01/13/17 Carvedilol* (Carvedilol*) 25 Mg Tablet, 25 MG PO BID, #60 TAB 2 Refills Prov:LEXII REED . 01/13/17 Reported Medications Gabapentin* (Gabapentin*) 600 Mg Tablet, 600 MG PO BID, #60 TAB 12/15/16 Aspirin* (Aspirin* EC) 81 Mg Tablet.dr, 81 MG PO DAILY, TAB 12/15/16 Primary Care Provider [facility] Pending Labs Laboratory Tests Test 01/14/17 12:46 01/14/17 17:19 01/14/17 17:50 01/14/17 20:26 Bedside Glucose 103mg/dL (70-220) 105mg/dL (70-220) 125mg/dL (70-220) Potassium Level 3.2mmol/L (3.5-5.1) Test 01/15/17 05:08 01/15/17 08:09 01/15/17 09:20 White Blood Count 3.310^3/ul (4.8-10.8) Red Blood Count 2.9510^6/ul (4.70-6.10) Hemoglobin 8.0g/dl (14.0-18.0) Hematocrit 25.3% (42.0-52.0) Mean Corpuscular Volume 85.8fl (82.0-101.0) Mean Corpuscular Hemoglobin 27.1pg (29.0-33.0) Mean Corpuscular Hemoglobin Concent 31.6g/dl (32.0-37.0) Red Cell Distribution Width 14.7% (11.5-14.5) Platelet Count 14051^3/UL (140-415) Mean Platelet Volume 11.0fl (7.4-10.4) Neutrophils % 47.7% (39.0-77.0) Lymphocytes % 32.0% (15.0-51.0) Monocytes % 12.3% (0.0-11.0) Eosinophils % 7.1% (0.0-7.0) Basophils % 0.3% (0.0-2.0) Nucleated Red Blood Cells % 0.0/100WBC (0.0-0.0) Neutrophils # 1.610^3/ul (1.6-7.5) Lymphocytes # 1.010^3/ul (0.8-2.9) Monocytes # 0.410^3/ul (0.3-0.9) Eosinophils # 0.210^3/ul (0.0-0.5) Basophils # 0.010^3/ul (0.0-0.1) Nucleated Red Blood Cells # 0.010^3/ul (0.0-0.0) Sodium Level 138mmol/L (135-144) Potassium Level 3.1mmol/L (3.5-5.1) Chloride Level 104mmol/L (97-110) Carbon Dioxide Level 29mmol/L (21-31) Anion Gap 8 (8-16) Blood Urea Nitrogen 6mg/dl (7-20) Creatinine 0.83mg/dl (0.61-1.24) Glucose Level 68mg/dl (70-220) Calcium Level 8.0mg/dl (8.4-10.2) Total Bilirubin 0.2mg/dl (0.2-1.3) Direct Bilirubin 0.00mg/dl (0.00-0.20) Indirect Bilirubin 0.2mg/dl (0-1.1) Aspartate Amino Transf (AST/SGOT) 89IU/L (15-46) Alanine Aminotransferase (ALT/SGPT) 169IU/L (13-69) Alkaline Phosphatase 59IU/L (42-121) Creatine Kinase 407IU/L (23-200) Total Protein 4.7g/dl (6.1-8.1) Albumin 2.3g/dl (3.3-4.9) Globulin 2.40g/dl (1.3-3.2) Albumin/Globulin Ratio 0.95 Bedside Glucose 69mg/dL (70-220) 99mg/dL (70-220) CLARITA VERMA January 15, 2017 11:04
--- NOTE | 2017-01-15 11:43 | CONS ---
Date/Time of Note Date/Time of Note DATE: 01/15/17 TIME: 11:40 Assessment/Plan Assessment/Plan Chief Complaint/Hosp Course IMPRESSION: 1. Positive troponin, assess significance.-no sig uptrend/likely demand event in settng fevers/tachy/resp distress 2. Abnormal electrocardiogram with ST depressions with tachycardia and positive troponin, likely indicative of coronary artery disease.-improved ecg findings with improved HR 3. Hypertension, uncontrolled still 4. Dyslipidemia. 5. Diabetes mellitus. 6. Fevers to 104 documented here in the hospital.-Currently defervesced 7. Renal failure.-acute on chronic/ ? secondary to vasculitic syndrome- Now improved 8. Lower extremity edema, assess for congestive heart failure/CHF-diastolic acute on chronic 9. Nausea and vomiting. 10. Chest pain with cough initially on admit 11.Resp failure s/p extubation 12. Bradycardia-to 40's.Now improved and tolerating BB 14.CHF-diastolic acute on chronic 15. LLE DVT Recc: -Now on med-surg -serial ecg's -Continue asa/statin -Continue abx's and f/u cx data -Continue bronchodilators and steroids. -Follow volume status closely and continue lasix diuresis and follow resp status closely and will change to PO today -Continue hydralazine/coreg/Clonidine TTS -Continue xarelto -If D/C today then given contact info to f/u for outpatient stress testing Problems: Consultation Date/Type/Reason Admit Date/Time Dec 15, 2016 at 11:20 Initial Consult Date 12/15/2016 Type of Consultation: Cardiology Reason for Consultation Positive troponin Referring Provider: LEXII REED Exam/Review of Systems Vital Signs Vitals Vital Signs Date Time Temp Pulse Resp B/P Pulse Ox O2 Delivery O2 Flow Rate FiO2 01/15/17 05:28 63 131/76 01/14/17 19:50 98.5 18 96 01/12/17 19:24 Room Air Intake and Output 01/14/17 01/14/17 01/15/17 15:00 23:00 07:00 Intake Total 2225 ml 1485 ml 880 ml Output Total 3100 ml 1950 ml Balance 2225 ml -1615 ml -1070 ml Exam Review of Systems: CONSTITUTIONAL: No fevers, chills. PULMONARY: No sob CARDIOVASCULAR: No chest pain/palpitations GASTROINTESTINAL: No nausea/vomiting. GENITOURINARY: No hematuria/dysuria. MUSCULOSKELETAL: No myagias/arthalgias. PSYCHIATRIC: The patient denies depression. NEUROLOGIC: No weakness Constitutional: alert, oriented Psych: no complaints Head: normocephalic ENMT: mucosa pink and moist Neck: jvd (9cm water), supple Respiratory: diminished breath sounds (at bases/B) Cardiovascular: regular rate and rhythm Gastrointestinal: non-tender, soft Musculoskeletal: muscle tone (normal) Extremities: edema (none) Neurological: other (No focal deficits) Results Result Diagram: 01/15/17 0508 01/15/17 0508 Results 24 hrs Laboratory Tests Test 01/14/17 12:46 01/14/17 17:19 01/14/17 17:50 01/14/17 20:26 Bedside Glucose 103 105 125 Potassium Level 3.2 L Test 01/15/17 05:08 01/15/17 08:09 01/15/17 09:20 White Blood Count 3.3 #L Red Blood Count 2.95 L Hemoglobin 8.0 L Hematocrit 25.3 L Mean Corpuscular Volume 85.8 Mean Corpuscular Hemoglobin 27.1 L Mean Corpuscular Hemoglobin Concent 31.6 L Red Cell Distribution Width 14.7 H Platelet Count 156 Mean Platelet Volume 11.0 H Neutrophils % 47.7 Lymphocytes % 32.0 Monocytes % 12.3 H Eosinophils % 7.1 H Basophils % 0.3 Nucleated Red Blood Cells % 0.0 Neutrophils # 1.6 Lymphocytes # 1.0 Monocytes # 0.4 Eosinophils # 0.2 Basophils # 0.0 Nucleated Red Blood Cells # 0.0 Sodium Level 138 Potassium Level 3.1 L Chloride Level 104 Carbon Dioxide Level 29 Anion Gap 8 Blood Urea Nitrogen 6 L Creatinine 0.83 Glucose Level 68 #L Calcium Level 8.0 L Total Bilirubin 0.2 Direct Bilirubin 0.00 Indirect Bilirubin 0.2 Aspartate Amino Transf (AST/SGOT) 89 H Alanine Aminotransferase (ALT/SGPT) 169 H Alkaline Phosphatase 59 Creatine Kinase 407 #H Total Protein 4.7 L Albumin 2.3 L Globulin 2.40 Albumin/Globulin Ratio 0.95 Bedside Glucose 69 L 99 Medications Medications Current Medications Ondansetron HCl (Zofran Inj) 4 mg Q6H PRN IV NAUSEA AND/OR VOMITING; Start at 13:00 Acetaminophen (Tylenol Tab) 650 mg Q6H PRN PO PAIN LEVEL 1-3 OR FEVER Last administered on 01/15/17 01:20; Admin Dose 650 MG; Start 12/15/16 at 13:00 Acetaminophen/ Hydrocodone Bitart ([place] (5/325)) 1 tab Q6H PRN PO PAIN LEVEL 4 -6 Last administered on 12/15/16 22:08; Admin Dose 1 TAB; Start 12/15/16 at 13: 00 Morphine Sulfate (morphine) 2 mg Q4H PRN IV PAIN LEVEL 7-10 Last administered on 01/08/17 01:53; Admin Dose 2 MG; Start 12/15/16 at 13:00 Magnesium Hydroxide (Milk Of Mag) 30 ml DAILY PRN PO CONSTIPATION Last administered on 01/02/17 02:07; Admin Dose 30 ML; Start 12/15/16 at 13:00 Bisacodyl (Dulcolax) 5 mg DAILY PRN PO CONSTIPATION Last administered on 17:44; Admin Dose 5 MG; Start 12/15/16 at 13:00 Famotidine (Pepcid) 20 mg Q12 PO Last administered on 01/15/17 08:12; Admin Dose 20 MG; Start 12/15/16 at 21:00 Aspirin (Aspirin) 325 mg DAILY PO Last administered on 01/15/17 08:11; Admin Dose 325 MG; Start 12/16/16 at 09:00 Atorvastatin Calcium (Lipitor) 80 mg QHS PO Last administered on 01/07/17 21: 35; Admin Dose 80 MG; Start 12/15/16 at 21:00; Status Future Hold Glucose (Glutose) 15 gm Q15M PRN PO DECREASED GLUCOSE; Start 12/15/16 at 14:00 Glucose (Glutose) 22.5 gm Q15M PRN PO DECREASED GLUCOSE; Start 12/15/16 at 14: 00 Glucagon (Glucagen) 1 mg Q15M PRN IM DECREASED GLUCOSE; Start 12/15/16 at 14:00 Glucose (Glutose) 15 gm Q15M PRN BUCCAL DECREASED GLUCOSE; Start 12/15/16 at 14 :00 Cholecalciferol (Vitamin D) 1,000 unit DAILY PO Last administered on 01/15/17 08:12; Admin Dose 1,000 UNIT; Start 12/16/16 at 09:00 Dextrose (D50w Syringe) 25 ml Q15M PRN IV Till BS 80 mg/dL or above x2 Last administered on 01/14/17 06:20; Admin Dose 25 ML; Start 12/18/16 at 14:00 Dextrose (D50w Syringe) 50 ml Q15M PRN IV Till BS 80 mg/dL or above x2 Last administered on 01/08/17 08:15; Admin Dose 50 ML; Start 12/18/16 at 14:00 Hydralazine HCl (Apresoline) 10 mg Q4H PRN IV sbp > 160 Last administered on 16:05; Admin Dose 10 MG; Start 12/22/16 at 06:30 Hydralazine HCl (Apresoline) 100 mg Q8 PO Last administered on 01/15/17 05:13 ; Admin Dose 100 MG; Start 01/01/17 at 14:00 Diagnostic Test (Pha) (Accu-Chek) 1 ea 02 XX Last administered on 01/12/17 02: 45; Admin Dose 1 EA; Start 01/08/17 at 02:00 Haloperidol (Haldol) 3 mg Q6H PRN IM AGITATION Last administered on 01/11/17 04:24; Admin Dose 3 MG; Start 01/08/17 at 19:00 Carvedilol (Coreg) 25 mg BID PO Last administered on 01/15/17 08:12; Admin Dose 25 MG; Start 01/10/17 at 21:00 Tamsulosin HCl 0.4 mg 0.4 mg BID PO Last administered on 01/15/17 08:12; Admin Dose 0.4 MG; Start 01/12/17 at 11:00 Albumin Human (Albumin Human 25%) 100 ml @ 100 mls/hr DAILY IV Last administered on 01/14/17 10:02; Admin Dose 100 MLS/HR; Start 01/12/17 at 11:00 ; Stop 01/17/17 at 10:59 Lisinopril (Zestril) 40 mg DAILY PO Last administered on 01/15/17 08:12; Admin Dose 40 MG; Start 01/14/17 at 09:00 Hydrochlorothiazide (Hydrochlorothiazide) 25 mg DAILY@06 PO Last administered on 01/15/17 05:12; Admin Dose 25 MG; Start 01/13/17 at 18:30 Insulin Glargine (Lantus) 15 unit DAILY@20 SC Last administered on 01/14/17 20 :31; Admin Dose 15 UNIT; Start 01/14/17 at 20:00 Clonidine HCl (Catapres-Tts 3 Patch) 1 patch Q7D TRANSDERM Last administered on 01/14/17 11:23; Admin Dose 1 PATCH; Start 01/14/17 at 10:30 Amlodipine Besylate (Norvasc) 10 mg DAILY PO Last administered on 01/15/17 08: 12; Admin Dose 10 MG; Start 01/14/17 at 11:30 VI ADAMES January 15, 2017 11:43
== END 2017-01-15 18:30 | disposition home or self-care (01) | DRG 870 ==
LOC: E/R 09:24 → TEL 11:20 → ICU 12-16 18:23 → TEL 01-07 14:18 → MS2 01-10 16:38
PROVIDERS: ADMIT Family Medicine; ATTEND Family Medicine
PROC: 02HV33Z Insertion of Infusion Device into Superior Vena Cava, Percutaneous Approach (ICD-10-PCS; principal; 2016-12-18)
PROC: 5A1955Z Respiratory Ventilation, Greater than 96 Consecutive Hours (ICD-10-PCS; 2016-12-18)
PROC: 0BH17EZ Insertion of Endotracheal Airway into Trachea, Via Natural or Artificial Opening (ICD-10-PCS; 2016-12-18)
DX: A41.9 Sepsis, unspecified organism (principal); I21.4 Non-ST elevation (NSTEMI) myocardial infarction; J96.01 Acute respiratory failure with hypoxia; N17.0 Acute kidney failure with tubular necrosis; R65.21 Severe sepsis with septic shock; J18.9 Pneumonia, unspecified organism; G92 Toxic encephalopathy; E87.0 Hyperosmolality and hypernatremia; I50.33 Acute on chronic diastolic (congestive) heart failure; I48.0 Paroxysmal atrial fibrillation; E87.3 Alkalosis; G72.0 Drug-induced myopathy; I82.4Z2 Acute embolism and thrombosis of unspecified deep veins of left distal lower extremity; E87.1 Hypo-osmolality and hyponatremia; B37.49 Other urogenital candidiasis; E11.65 Type 2 diabetes mellitus with hyperglycemia; D50.9 Iron deficiency anemia, unspecified; E78.5 Hyperlipidemia, unspecified; I10 Essential (primary) hypertension; E87.6 Hypokalemia; E66.01 Morbid (severe) obesity due to excess calories; E83.51 Hypocalcemia; T46.6X5A Adverse effect of antihyperlipidemic and antiarteriosclerotic drugs, initial encounter; R76.8 Other specified abnormal immunological findings in serum; E11.621 Type 2 diabetes mellitus with foot ulcer; E55.9 Vitamin D deficiency, unspecified; Z68.39 Body mass index [BMI] 39.0-39.9, adult; Z79.4 Long term (current) use of insulin; Z89.412 Acquired absence of left great toe
CPT/HCPCS: 31500; 36415; 36430; 36569; 36600; 70551; 71010; 71250; 74000; 74176; 76604; 76775; 76937; 80048; 80053; 80061; 80076; 80202; 80307; 81001; 81003; 82043; 82140; 82164; 82550; 82553; 82652; 82728; 82803; 82947; 82962; 83036; 83540; 83605; 83735; 83880; 84100; 84132; 84155; 84300; 84439; 84443; 84484; 85014; 85018; 85025; 85610; 85651; 85730; 86021; 86038; 86140; 86226; 86235; 86635; 86641; 86703; 86738; 86850; 86900; 86901; 86920; 87040; 87070; 87081; 87086; 87400; 89220; 92526; 92610; 93005; 93306; 93970; 94002; 94003; 94640; 94664; 94770; 96372; 96374; 96375; 96376; 97110; 97163; 97530; J1120; J1940; A4310; C1769; J0360; J0456; J0692; J0696; J1630; J1644; J1650; J1815; J1956; J2060; J2185; J2270; J2405; J2543; J2916; J2930; J2997; J3010; J3370; J3475; J3480; J7030; J7040; J7042; J7050; J7060; J7512; P9016; P9047

== ENCOUNTER 2017-01-18 15:37 | Inpatient (IN) | payer OTHER ==
[~2017-01-18] VITALS: Ht 167.6 cm; Wt 110.2 kg
[~2017-01-18 15:37] MED LIST changes: +AMLO-145 PO; -AMLO-147 PO; +ASPI-664 PO; -ASPI-700 PO; -ATOR80TA75 PO; +CHOL100062 PO; +CLON1PAT2 TRANSDERM; -ERGO500037 PO; +FAMO20TA18 PO; -FURO20TA3 PO; +FURO40TA4 PO; +GABA-526 PO; +HYDR-3672 PO; +LANT3I SC; -LISI20TA11 PO; +LISI40TA9 PO; -NCN500CCR PO; -OMEG-135 PO; -OXYC-209 PO; +POTA20TA96 PO; -POTA8CAP PO; +RIVA15TA PO; +RIVA20TA PO; +SEVE0.8P PO; +TAMS-14 PO; -UDMOM PO
[2017-01-18] MEDS ORDERED: ONDANSETRON 4 MG INJ IV STA (15:58)
[2017-01-18] MEDS ORDERED: HYDROmorphONE 1 MG/ML SYG IV STA ×2 (15:58→20:59)
[2017-01-18] MEDS ORDERED: SOD CHLORIDE 0.9% 1,000 ML IV STA ×2 (15:58→17:08)
--- NOTE | 2017-01-18 16:00 | ERA ---
ER Documentation Chief Complaint Date/Time DATE: 01/18/17 TIME: 16:00 Chief Complaint LOWER ABD PAIN X1DAY [id number] OF EMESIS HPI This is a 41-year-old male with history of diabetes type 2, hypertension and recent hospitalization on December 15 for severe sepsis from pneumonia and was discharged three days ago on on January 14 presenting to the emergency department complaining of severe lower quadrant abdominal pain that he describes as sharp unbearable 10 out of 10. Patient states that he has had one episode of nonbilious, nonbloody vomiting earlier today. Patient denies any diarrhea. Patient states that he had try to have a bowel movement earlier today but he was not able to due to pain. His last bowel movement was yesterday. He denies fevers. Denies melena or hematochezia patient has not taken any pain medications. ROS All systems reviewed and are negative except as per history of present illness. Medications Home Meds Active Scripts Furosemide* (Furosemide*) 40 Mg Tablet, 40 MG PO DAILY for 30 Days, TAB Prov:LEXII REED . 01/13/17 Famotidine* (Famotidine*) 20 Mg Tablet, 20 MG PO Q12 for 30 Days, TAB 2 Refills Prov:LEXII REED . 01/13/17 Tamsulosin Hcl* (Flomax*) 0.4 Mg Cap.er.24h, 0.4 MG PO BID for 30 Days, CAP 1 Refill Prov:LEXII REED . 01/13/17 Cholecalciferol* (Vitamin D3*) 1,000 Unit Tablet, 1000 UNIT PO DAILY for 30 Days , TAB 2 Refills Prov:LEXII REED . 01/13/17 Lisinopril* (Lisinopril*) 40 Mg Tablet, 40 MG PO DAILY, #30 TAB 2 Refills Prov:LEXII REED . 01/13/17 Potassium Chloride* (Potassium Chloride*) 20 Meq Tablet.er, 20 MEQ PO DAILY for 30 Days, TAB.SA 2 Refills Prov:LEXII REED . 01/13/17 Carvedilol* (Carvedilol*) 25 Mg Tablet, 25 MG PO BID, #60 TAB 2 Refills Prov:LEXII REED . 01/13/17 Reported Medications Hydralazine Hcl* (Hydralazine Hcl*) 50 Mg Tab, 50 MG PO Q8, #90 TAB 01/18/17 Aspirin* (Aspirin* EC) 81 Mg Tablet.dr, 81 MG PO DAILY, TAB 12/15/16 Discontinued Reported Medications Gabapentin* (Gabapentin*) 600 Mg Tablet, 600 MG PO BID, #60 TAB 12/15/16 Discontinued Scripts Rivaroxaban* (Xarelto*) 20 Mg Tablet, 20 MG PO WITH DINNER for 30 Days, TAB 3 Refills Start February 03 2017 Prov:DEREKJAS HuddlestonO M. 01/13/17 Rivaroxaban* (Xarelto*) 15 Mg Tablet, 15 MG PO BID for 21 Days, TAB Prov:DEREKJAS HuddlestonO M. 01/13/17 Insulin Glargine* (Lantus*) 100 Unit/Ml Soln, 25 UNIT SC DAILY@20 for 30 Days, 2 Refills Prov:DEREK,JASO M. 01/13/17 Sevelamer Carbonate* (Renvela*) 0.8 Gm Powd.pack, 1.6 GM PO WITH MEALS for 30 Days, 2 Refills Prov:DEREK,JASO M. 01/13/17 Hydralazine Hcl* (Apresoline*) 50 Mg Tab, 100 MG PO Q8 for 30 Days, TAB 2 Refills Prov:LEXII REED M. 01/13/17 Clonidine Patch (CLONIDINE PATCH) 0.2 Mg/24 Hr Patch, 1 PATCH TRANSDERM Q7D for 30 Days, 2 Refills Prov:DEREKJAS HuddlestonO M. 01/13/17 Amlodipine Besylate* (Amlodipine Besylate*) 5 Mg Tablet, 5 MG PO BID for 30 Days , TAB 2 Refills Prov:DEREKJSAO M. 01/13/17 Allergies Allergies: Coded Allergies: ibuprofen (Verified Allergy, Mild, 01/18/17) PMhx/Soc History of Surgery: Yes (left big foot amputation) Anesthesia Reaction: No Hx Neurological Disorder: No Hx Respiratory Disorders: No Hx Cardiac Disorders: Yes (HTN, Dyslipidemia) Hx Psychiatric Problems: No Hx Miscellaneous Medical Probl: Yes (Obesity) Hx Alcohol Use: No Hx Substance Use: No Hx Tobacco Use: Yes Physical Exam Vitals Vital Signs Date Time Temp Pulse Resp B/P Pulse Ox O2 Delivery O2 Flow Rate FiO2 5/25/17 18:06 98.3 73 20 173/90 97 Room Air 01/18/17 15:38 98.6 79 22 170/85 98 Physical Exam GENERAL: well-developed/well-nourished, in no apparent distress, non-toxic appearing HENT: NC/AT, moist mucous membranes EYES: Conjunctiva normal NECK: Supple, no lymphadenopathy PULM: CTA bilaterally, no rales, rhonchi, or wheezing heard CV: Normal S1S2, RRR, good capillary refill GI: distended, tender to palpation in all quadrants, mostly in the lower abdomen Normal bowel sounds, no masses or organomegaly felt on exam No gross peritonitis, no bruits Negative Rovsing, negative Davis, negative McBurney's point, Negative CVAT BACK: No masses EXT: No clubbing, cyanosis, or edema NEURO: Alert and Orientated SKIN: Intact, normal turgor PSYCH: Normal mood and mentation Result Diagram: 01/18/17 1620 01/18/17 1620 Results 24 hrs Laboratory Tests Test 01/18/17 16:20 01/18/17 17:50 01/18/17 18:20 White Blood Count 11.310^3/ul Red Blood Count 4.1410^6/ul Hemoglobin 11.5g/dl Hematocrit 35.0% Mean Corpuscular Volume 84.5fl Mean Corpuscular Hemoglobin 27.8pg Mean Corpuscular Hemoglobin Concent 32.9g/dl Red Cell Distribution Width 14.5% Platelet Count 62339^3/UL Mean Platelet Volume 10.3fl Neutrophils % 78.6% Lymphocytes % 12.6% Monocytes % 5.8% Eosinophils % 2.2% Basophils % 0.2% Nucleated Red Blood Cells % 0.0/100WBC Neutrophils # 8.910^3/ul Lymphocytes # 1.410^3/ul Monocytes # 0.710^3/ul Eosinophils # 0.310^3/ul Basophils # 0.010^3/ul Nucleated Red Blood Cells # 0.010^3/ul Sodium Level 143mmol/L Potassium Level 3.7mmol/L Chloride Level 101mmol/L Carbon Dioxide Level 28mmol/L Anion Gap 18 Blood Urea Nitrogen 8mg/dl Creatinine 0.83mg/dl Glucose Level 177mg/dl Lactic Acid Level 2.5mmol/L 1.5mmol/L Calcium Level 9.3mg/dl Total Bilirubin 0.3mg/dl Direct Bilirubin 0.00mg/dl Indirect Bilirubin 0.3mg/dl Aspartate Amino Transf (AST/SGOT) 59IU/L Alanine Aminotransferase (ALT/SGPT) 177IU/L Alkaline Phosphatase 103IU/L Total Protein 7.0g/dl Albumin 3.8g/dl Globulin 3.20g/dl Albumin/Globulin Ratio 1.18 Lipase 72U/L Prothrombin Time 13.5Sec Prothrombin Time Ratio 1.1 INR International Normalized Ratio 1.03 Activated Partial Thromboplast Time 48.5Sec Current Medications Medications (Trade) Dose Ordered Sig/Kuldeep Route PRN Reason Start Time Stop Time Status Last Admin Dose Admin Sodium Chloride (NS) 1,000 ml @ 1,000 mls/hr Q1H STAT IV 01/18/17 15:58 01/18/17 16:57 DC 01/18/17 16:29 Hydromorphone HCl (Dilaudid) 1 mg ONCE STAT IV 01/18/17 15:58 01/18/17 16:00 DC 01/18/17 16:32 Ondansetron HCl 8 mg 8 mg ONCE STAT IV 01/18/17 15:58 01/18/17 16:00 DC 01/18/17 16:36 Sodium Chloride 1,000 ml @ 1,000 mls/hr Q1H STAT IV 01/18/17 17:08 01/18/17 18:07 DC Piperacillin Sod/ Tazobactam Sod 100 ml @ 200 mls/hr ONCE STAT IVPB 01/18/17 17:13 01/18/17 17:42 DC 01/18/17 17:53 Vancomycin HCl (Vancocin) 250 ml @ 125 mls/hr ONCE IVPB 01/18/17 17:30 01/18/17 19:29 Ondansetron HCl (Zofran Inj) 4 mg BRIDGE ORDER PRN IV NAUSEA AND/OR VOMITING 01/18/17 17:30 01/19/17 17:29 Acetaminophen (Tylenol Tab) 650 mg ER BRIDGE PRN PO MILD PAIN/FEVER 01/18/17 17:30 01/19/17 17:29 Procedures/MDM This is a 41-year-old male with history of diabetes type 2, hypertension and recent hospitalization on December 15 for severe sepsis from pneumonia and was discharged three days ago on on January 14 presenting to the emergency department complaining of severe lower quadrant abdominal pain, episode of nonbilious, nonbloody vomiting. Patient is appropriate for admission for further evaluation and management. Differentials include but not limited to urinary tract infection, constipation, diverticulosis, pneumonia. IV access was established, patient was given Dilaudid for pain, Zofran for nausea, IV fluids. Lab work was drawn. CBC showed mild leukocytosis. Lactic acid was mildly elevated at 2.5 however I do not suspect sepsis at this time, patient does not meet SIRS criteria. CMP was unremarkable for any renal or electrolyte abnormalities. He did have mildly elevated transaminases but I am not concerned about at this point. A urinalysis was not able to be obtained in the emergency department. Patient was found to have distention in his bladder to umbilicus however he refused obtain a Ritchie catheter. After lengthy discussion has been given patient still refuses to patient states that he is able to urinate but he does not want to since he wants to have a bowel movement first. EKG was done in the ED did not show any evidence of STEMI or ACS. Chest x-ray showed mild right lower lobe linear atelectatic changes which is consistent with his recent pneumonia. CT of the abdomen and pelvis without contrast was done and did not show any evidence of obstruction, results further stated below EKG: read and signed off by myself and Dr Arzate Rate/Rhythm: Normal Sinus Rhythm at 73 bpm QRS, ST, T-waves: No changes consistent w/ acute ischemia Impression: No evidence of ischemia or arrhythmia CXR: Mild right lower lobe linear atelectatic changes. CT abd and pelvis without contrast: There is mild atelectasis at the lung bases posteriorly. The lung bases are otherwise normal. There are small bilateral pleural effusions and there is a small pericardial effusion. The heart size is normal. There is coronary artery calcification. The liver is normal in size and attenuation. There is no focal hepatic lesion. The gallbladder and bile ducts are normal. The spleen is normal in size. There is no focal splenic lesion. Both adrenals are normal with no enlargement or mass. The pancreas is unremarkable with no mass or evidence of pancreatitis. There is no renal mass or calculus. There is mild bilateral hydronephrosis and there is distension of the urinary bladder extending to the umbilicus. The abdominal aorta is not dilated. There is calcification in the aorta consistent with atherosclerosis. There is no retroperitoneal lymphadenopathy or mass. There is no pelvic lymphadenopathy or mass. The appendix is well seen and appears normal. There is diverticulosis of the colon without evidence of diverticulitis. The bowel and mesentery are otherwise normal. There is no free fluid or free gas. There are mild degenerative changes of the spine. There is no fracture or lytic lesion. IMPRESSION: 1. Mild atelectasis at the lung bases posteriorly. 2. Small bilateral pleural effusions. 3. A small pericardial effusion. 4. Coronary artery calcification. 5. Mild bilateral hydronephrosis and distension of the urinary bladder extending to the umbilicus. 6. Atherosclerosis. 7. Normal appendix. 8. Diverticulosis of the colon without evidence of diverticulitis. 9. Mild degenerative changes of the spine. I have consulted my supervising physician Dr. Arzate in which he consulted the hospitalist for admission. Patient was treated in the ED with vancomycin and Zosyn for empiric treatment of possible infection. Patient is stable for transfer to [facility] floor Departure Diagnosis: Primary Impression: Abdominal pain Condition: MILES Saez PA-C January 18, 2017 16:00
[2017-01-18 16:25] LABS: ADD SCAN DIFF NO
[2017-01-18 16:30] LABS: BASOPHILS % 0.2 % (0.0-2.0); EOSINOPHILS # 0.3 10^3/ul (0.0-0.5); EOSINOPHILS % 2.2 % (0.0-7.0); HEMOGLOBIN 11.5 g/dl (14.0-18.0); LYMPHOCYTES # 1.4 10^3/ul (0.8-2.9); LYMPHOCYTES % 12.6 % (15.0-51.0); MEAN CORPUSCULAR HEMOGLOBIN 27.8 pg (29.0-33.0); MEAN CORPUSCULAR HGB CONC 32.9 g/dl (32.0-37.0); MEAN CORPUSCULAR VOLUME 84.5 fl (82.0-101.0); MEAN PLATELET VOLUME 10.3 fl (7.4-10.4); MONOCYTE # 0.7 10^3/ul (0.3-0.9); MONOCYTES % 5.8 % (0.0-11.0); NEUTROPHIL # 8.9 10^3/ul (1.6-7.5); NEUTROPHILS % 78.6 % (39.0-77.0); PLATELET COUNT 284 10^3/UL (140-415); RED BLOOD COUNT 4.14 10^6/ul (4.70-6.10); RED CELL DISTRIBUTION WIDTH 14.5 % (11.5-14.5); WHITE BLOOD COUNT 11.3 10^3/ul (4.8-10.8)
--- NOTE | 2017-01-18 16:35 | RADRPT ---
PROCEDURE: XR Chest. CLINICAL INDICATION: chest pain, abdominal pain TECHNIQUE: Single frontal view of the chest was obtained COMPARISON: 06/02/2016 FINDINGS: The heart and mediastinum are within normal limits. There are mild right lower lobe linear atelectatic changes. The lungs are otherwise clear. There is no pleural effusion or pneumothorax. RPTAT: AA IMPRESSION: Mild right lower lobe linear atelectatic changes. .Cristino Dahl MD, MD Date Time Electronically viewed and signed by .Cristino Dahl MD, on 01/18/2017 16:35 .S/
[2017-01-18 16:48] LABS: ALBUMIN 3.8 g/dl (3.3-4.9); POTASSIUM 3.7 mmol/L (3.5-5.1)
[2017-01-18 16:51] LABS: ALBUMIN/GLOBULIN RATIO 1.18; BILIRUBIN,INDIRECT 0.3 mg/dl (0-1.1); BILIRUBIN,TOTAL 0.3 mg/dl (0.2-1.3); CREATININE 0.83 mg/dl (0.61-1.24)
[2017-01-18 16:52] LABS: CALCIUM 9.3 mg/dl (8.4-10.2)
[2017-01-18] MEDS ORDERED: PIPER-TAZO 3.375 GM IV (PMX) 100 ML IVPB STA (17:13)
[2017-01-18] MEDS ORDERED: ONDANSETRON 4 MG INJ IV PRN ×2 (17:30→23:30)
[2017-01-18] MEDS ORDERED: ACETAMINOPHEN 325 MG TAB PO PRN ×2 (17:30→23:30)
[2017-01-18] MEDS ORDERED: VANCOMYCIN 1 GM (PMX) 250 ML IVPB SCH (17:30)
[2017-01-18 18:06] VITALS: TEMP 98.3
--- NOTE | 2017-01-18 18:18 | RADRPT ---
PROCEDURE: CT Abdomen and Pelvis without contrast. CLINICAL INDICATION: Abdominal and pelvic pain. TECHNIQUE: CT scan of the abdomen and pelvis without contrast was performed. Coronal and sagittal reformatted images were obtained from the axial source images. Images were reviewed on a high-resolu [employer] PACS workstation. Total exam DLP is 1510.66 mGy-cm. CTDIvol is 23.11 mGy. One or more of the following dose reduction techniques were used: Automated exposure control, adjustment of the mA and/ or kV according to patient size, use of iterative reconstruction technique. COMPARISON: None. FINDINGS: There is mild atelectasis at the lung bases posteriorly. The lung bases are otherwise normal. Ther e are small bilateral pleural effusions and there is a small pericardial effusion. The heart size i s normal. There is coronary artery calcification. The liver is normal in size and attenuation. There is no focal hepatic lesion. The gallbladder and bile ducts are normal. The spleen is normal in size. There is no focal splenic lesion. Both adrenals are normal with no enlargement or mass. The pancreas is unremarkable with no mass or evidence of pancreatitis. There is no renal mass or calculus. There is mild bilateral hydronephrosis and there is distension of the urinary bladder extending to the umbilicus. The abdominal aorta is not dilated. There is calcification in the aorta consistent with atherosclero sis. There is no retroperitoneal lymphadenopathy or mass. There is no pelvic lymphadenopathy or mass. The appendix is well seen and appears normal. There is diverticulosis of the colon without evidence of diverticulitis. The bowel and mesentery ar e otherwise normal. There is no free fluid or free gas. There are mild degenerative changes of the spine. There is no fracture or lytic lesion. IMPRESSION: 1. Mild atelectasis at the lung bases posteriorly. 2. Small bilateral pleural effusions. 3. A small pericardial effusion. 4. Coronary artery calcification. 5. Mild bilateral hydronephrosis and distension of the urinary bladder extending to the umbilicus. 6. Atherosclerosis. 7. Normal appendix. 8. Diverticulosis of the colon without evidence of diverticulitis. 9. Mild degenerative changes of the spine. Call report: A call report of the findings was made to ONOFRE Davison on 01/18/2017 at 1815 hours. RPTAT: QQ .Chon Carcamo MD, MD Date Time Electronically viewed and signed by .Chon Carcamo MD, MD on 01/18/2017 18:17 .R/
[2017-01-18] MEDS ORDERED: HYDR-3672 PO (18:33)
[2017-01-18 18:42] LABS: INR 1.03; PROTIME 13.5 Sec (12.2-14.2); PT RATIO 1.1
[2017-01-18 18:43] LABS: PARTIAL THROMBOPLASTIN TIME 48.5 Sec (25.0-35.0)
[2017-01-18 22:09] VITALS: BP 154/78; PULSE 72; RESP 20
[2017-01-18 22:15] VITALS: Ht 167.6 cm; Wt 110.2 kg
[2017-01-18] MEDS ORDERED: morphine 4 MG/ML VIAL IV PRN (23:30)
[2017-01-18] MEDS ORDERED: GLUCOSE GEL 15 GRAM TUBE PO PRN ×2 (23:45)
[2017-01-18] MEDS ORDERED: DEXTROSE 50% 50 ML SYRINGE IV PRN ×2 (23:45)
[2017-01-18] MEDS ORDERED: GLUCAGON 1 MG INJ IM PRN (23:45)
[2017-01-18] MEDS ORDERED: GLUCOSE GEL 15 GRAM TUBE BUCCAL PRN (23:45)
[2017-01-19] MEDS ORDERED: ACCU-CHEK XX SCH (02:00)
[2017-01-19 05:30] LABS: ADD SCAN DIFF NO
[2017-01-19 05:37] LABS: BASOPHILS % 0.2 % (0.0-2.0); EOSINOPHILS # 0.2 10^3/ul (0.0-0.5); EOSINOPHILS % 3.1 % (0.0-7.0); HEMATOCRIT 27.2 % (42.0-52.0); HEMOGLOBIN 8.7 g/dl (14.0-18.0); LYMPHOCYTES # 1.6 10^3/ul (0.8-2.9); LYMPHOCYTES % 27.4 % (15.0-51.0); MEAN CORPUSCULAR HEMOGLOBIN 27.7 pg (29.0-33.0); MEAN CORPUSCULAR VOLUME 86.6 fl (82.0-101.0); MEAN PLATELET VOLUME 10.2 fl (7.4-10.4); MONOCYTE # 0.6 10^3/ul (0.3-0.9); NEUTROPHIL # 3.4 10^3/ul (1.6-7.5); NEUTROPHILS % 57.6 % (39.0-77.0); PLATELET COUNT 242 10^3/UL (140-415); RED BLOOD COUNT 3.14 10^6/ul (4.70-6.10); RED CELL DISTRIBUTION WIDTH 14.6 % (11.5-14.5); WHITE BLOOD COUNT 5.8 10^3/ul (4.8-10.8)
[2017-01-19 05:53] LABS: ALBUMIN 2.5 g/dl (3.3-4.9); ALBUMIN/GLOBULIN RATIO 0.92; BILIRUBIN,INDIRECT 0.1 mg/dl (0-1.1); BILIRUBIN,TOTAL 0.1 mg/dl (0.2-1.3); CALCIUM 8.2 mg/dl (8.4-10.2); CREATININE 1.04 mg/dl (0.61-1.24); MAGNESIUM 1.7 mg/dl (1.7-2.5); PHOSPHORUS 4.6 mg/dl (2.5-4.9); POTASSIUM 3.3 mmol/L (3.5-5.1); TOTAL PROTEIN 5.2 g/dl (6.1-8.1)
[2017-01-19] MEDS ORDERED: FUROSEMIDE 40 MG TAB PO SCH (06:00)
[2017-01-19] MEDS: ACCU-CHEK XX SCH ×2 (07:20→11:10)
[2017-01-19 07:29] VITALS: BP 134/68; RESP 18
[2017-01-19] MEDS: SEVELAMER CARBONATE 0.8 GM PKT PO SCH ×2 (08:49→12:36)
[2017-01-19] MEDS ORDERED: GABAPENTIN 300 MG CAP PO SCH (09:00)
[2017-01-19] MEDS ORDERED: CHOLECALCIFEROL 1,000 UNIT TAB PO SCH (09:00)
[2017-01-19] MEDS ORDERED: LISINOPRIL 20 MG TAB PO SCH (09:00)
[2017-01-19] MEDS ORDERED: TAMSULOSIN (SR) 0.4 MG CAP PO SCH (09:00)
[2017-01-19] MEDS ORDERED: AMLODIPINE 5 MG TAB PO SCH (09:00)
[2017-01-19] MEDS ORDERED: FAMOTIDINE 20 MG TAB PO SCH (09:00)
[2017-01-19] MEDS ORDERED: POTASSIUM CHLORIDE (SR) 20 MEQ TAB PO SCH ×2 (09:00→15:00)
[2017-01-19] MEDS: INSULIN ASPART [NOVOLOG] 3 ML PEN SC SCH ×2 (09:01→12:46)
--- NOTE | 2017-01-19 14:48 | PDOCDIS ---
Discharge Instructions CONDITION Patient Condition: Stable HOME CARE INSTRUCTIONS: Diet Instructions: Low Fat /Cholesterol ACTIVITY: Activity Restrictions: Slowly Increase Activity FOLLOW UP/APPOINTMENTS Appointments Please continue PT and take your medications as prescribed. CLARITA VERMA January 19, 2017 14:48
[2017-01-19] MEDS ORDERED: POLY17PO6 PO (14:53)
[2017-01-19] MEDS ORDERED: SEVE0.8P PO (14:57)
[2017-01-19] MEDS ORDERED: LANT3I SC (14:57)
[2017-01-19] MEDS ORDERED: AMLO-145 PO (14:57)
[2017-01-19] MEDS ORDERED: RIVA20TA PO (14:57)
[2017-01-19] MEDS ORDERED: DOCU-216 PO (14:57)
[2017-01-19] MEDS ORDERED: POLYETHYLENE GLYCOL 17 GM PACKET PO SCH (15:00)
[2017-01-19] MEDS ORDERED: DOCUSATE SODIUM 100 MG CAP PO SCH (15:00)
--- NOTE | 2017-01-19 15:23 | DS ---
DATE OF ADMISSION: 01/18/2017 DATE OF DISCHARGE: 01/19/2017 A 41-year-old male who was admitted on 01/18/2017 and being discharged on 01/19/2017. The patient ca me in with abdominal pain symptoms. He was admitted, had a CT abdomen and pelvis performed that did not show any acute pathology, other than some mild bilateral hydronephrosis, a distended urinary bl adder extending to the umbilicus. The patient's urinary symptoms were normal, however. He had mercedez l urine output. He had some mild degenerative changes of the spine and some diverticulosis of the c olon, but no diverticulitis. Small bilateral pleural effusions. So the patient was admitted to the med/surg floor. He was treated conservatively. He was given stool softener medications as well. Symptoms were thought to be possibly related to just constipation symptoms, but he was back at his b aseline status, where he needed assistance with ambulation. His vital signs were stable. He was ab le to tolerate a p.o. diet. We are going to give him stool softener medications so his abdominal dorene n symptoms can improved. He will be discharged home today in improved condition. Of note, the silviano ent was recently here at our hospital from 12/15/2016 to 01/15/2017. At that time he had a prolonge d hospital stay, including hypoxia, respiratory failure, kidney injury that had resolved, type 2 rachel betes and sepsis due to underlying community-acquired pneumonia with septic shock that had resolved and went home with physical therapy and a wheelchair. He is going to continue to have that when he is discharged today in improved condition. DISCHARGE MEDICATIONS: He will be sent with the following medications: 1. Amlodipine 5 mg b.i.d. 2. Colace 100 mg b.i.d. 3. Lantus 25 units daily. 4. MiraLax 17 grams daily. 5. Xarelto 20 mg with dinner. 6. Renvela 1.6 grams with meals. 7. Aspirin 81 mg daily. 8. Coreg 25 mg b.i.d. 9. Vitamin D3 1000 units daily. 10. Famotidine 20 mg q.12h. 11. Lasix 40 mg p.o. daily. 12. Hydralazine 50 mg q.8h. 13. Lisinopril 40 mg daily. 14. Potassium chloride 20 mEq daily. 15. Flomax 0.4 mg p.o. b.i.d. He will need to follow up with a primary care doctor in clinic in the next 1 to 2 weeks. FINAL DIAGNOSES: 1. Abdominal pain secondary possibly to constipation, as CT abdomen and pelvis negative for acute p athology. 2. Prior sepsis secondary to underlying community-acquired pneumonia with septic shock, resolved. 3. Acute hypoxic respiratory failure, resolved. 4. Prior elevated troponins, most likely event from underlying sepsis and underlying acute i njury last month. Now resolved. 5. Acute kidney injury, resolved. 6. Type 2 diabetes mellitus. On insulin at home. 7. High cholesterol. 8. Essential hypertension. 9. Microcytic hyperchromic anemia. 10. Vitamin D deficiency. 11. Positive DAISY, with unclear clinical significance. 12. Statin-induced myopathy and transaminitis with bilateral extremity weakness, now resolving. 13. Cocaine abuse, status post cessation. 14. Newly diagnosed left peroneal deep vein thrombosis on last admission, now on Xarelto. Time spent discharging the patient was 45 minutes. Dictated By: CLARITA GRIFFIN Conf#: [id number] DID#: [id number]
[2017-01-19] MEDS ORDERED: RIVAROXABAN 20 MG TABLET PO SCH (17:55)
[2017-01-19] MEDS ORDERED: INSULIN GLARGINE [LANtus] 3 ML PEN SC SCH (20:00)
--- NOTE | 2017-01-19 20:03 | HP ---
DATE OF ADMISSION: 01/18/2017 TIME SEEN: 2300. CHIEF COMPLAINT: Abdominal pain and vomiting. HISTORY OF PRESENT ILLNESS: The patient is a 41-year-old male with a history of hypertension, diabe elizabeth, dyslipidemia, recently diagnosed left peroneal DVT, iron deficiency anemia, recent vent-depende nt respiratory failure, who presented to the emergency department with abdominal pain and vomiting. Pain was of sudden onset, mainly in the lower abdominal region and described as sharp. He also had an episode of nonbilious, nonbloody vomiting. The patient was discharged 3 days ago from this hosp ital after a prolonged hospitalization (1 month). During his recent hospitalization he presented wit h a cough, fever, and chest pain and was diagnosed with community-acquired pneumonia. The patient a lso had an elevated troponin, which was thought to be secondary to sepsis. The patient; however, ra pidly declined and actually ended up being intubated for respiratory failure. At that time, he was d iagnosed with a left lower extremity DVT. He also developed severe myopathy in the lower extremitie s and was diagnosed with rhabdomyolysis that was thought to be caused by his statin and his debilita bel state. He had a positive DAISY, for which he was seen by rheumatology and had extensive workup, w ithout a definitive diagnosis, and as such, the positive DAISY was thought to be of unclear significan ce. He was; however, treated with a low dose steroid. The patient was also evaluated by cardiology for his which was felt to be from sepsis; however, cardiology recommended a stress test, but the patient had requested for this to be done as an outpatient. The patient was eventually discharg ed with home health and also physical therapy, and now he is coming back, as mentioned above, with s evere at lower abdominal pain and an episode of vomiting. When he presented to the ER blood pressure was 170/85, pulse rate 79, respiratory rate 22, temperat ure 98.6, oxygen saturation 98% on room air. Labs shows a WBC of 11.3, hemoglobin 11.5, AST 59, ALT 177. His initial lactate was 2.5, repeat a couple of hours later trended down to 1.5. CT abdomen and pelvis without contrast shows mild bilateral hydronephrosis and distention of the urinary bladde r extending to the umbilicus, diverticulosis without diverticulitis, small bilateral pleural effusio n and mild atelectasis at the lung bases posteriorly. He was treated with Dilaudid, Zofran, and was given a liter of normal saline and was started on Zosyn. REVIEW OF SYSTEMS: A 12-point review of systems was performed and negative except as mentioned in th e HPI. PAST MEDICAL HISTORY: As per HPI. PAST SURGICAL HISTORY: He has a left great toe amputation. SOCIAL HISTORY: History of alcohol abuse, stopped over a year ago. He also has a history of substa nce abuse and stopped over 3 years ago. He stopped smoking a year and a half ago. ALLERGIES: IBUPROFEN. HOME MEDICATIONS: 1. Flomax. 2. Coreg. 3. Hydralazine. 4. Lisinopril. 5. Aspirin. 6. Lasix. 7. Potassium chloride. 8. Famotidine. 9. . PHYSICAL EXAMINATION: VITAL SIGNS: Blood pressure 154/78, heart rate 72, respiratory rate 20, temperature 98.4, oxygen sa turation 98% on room air. GENERAL: An obese male, lying in bed, in no acute distress. HEENT: No obvious head deformity. Pupils reactive to light. CARDIOVASCULAR: Regular rate and rhythm, with extra sounds. LUNGS: He has decreased breath sounds at the bases with minimal scattered rhonchi. ABDOMEN: Soft, obese, tender to palpation diffusely, mainly in the lower abdominal region. No guar ding, no rebound tenderness, no rigidity. EXTREMITIES: No edema. There is amputation of the left great toe. NEUROLOGIC: No focal deficits. LABORATORY: Pertinent positives as mentioned in the HPI. IMPRESSION: 1. Abdominal pain. 2. Recent ventilator dependent respiratory failure. 3. Status post recent sepsis secondary to pneumonia. 4. History of dyslipidemia. 5. History of iron deficiency anemia 6. Hypertension, blood pressure not . 7. Recently diagnosed left peroneal deep vein thrombosis. 8. Recently diagnosed myopathy and rhabdomyolysis. 9. Obesity, with a BMI of 40. PLAN: Abdominal pain could be from urinary retention, given with in the lower abdominal region and CAT scan shows urinary bladder distention, which extended to the umbilicus. Will put a Ritchie. Will provide pain medication and will continue to monitor for now. He will be continued with his home m edications with adjustments as needed. His liver enzymes are normalizing. Further workup and management will be per clinical course. Dictated By: GLORIA BLANTON/SUNDEEP Conf#: [id number] DID#: [id number]
== END 2017-01-19 17:10 | disposition home or self-care (01) | DRG 392 ==
LOC: FTE 15:37 → MS1 22:00
PROVIDERS: ADMIT Internal Medicine; ATTEND Internal Medicine
DX: K59.00 Constipation, unspecified (principal); I10 Essential (primary) hypertension; Z68.41 Body mass index [BMI] 40.0-44.9, adult; E55.9 Vitamin D deficiency, unspecified; D50.9 Iron deficiency anemia, unspecified; F14.10 Cocaine abuse, uncomplicated; E78.5 Hyperlipidemia, unspecified; E11.9 Type 2 diabetes mellitus without complications; E66.9 Obesity, unspecified; F17.210 Nicotine dependence, cigarettes, uncomplicated; Z79.4 Long term (current) use of insulin; Z79.82 Long term (current) use of aspirin; Z79.01 Long term (current) use of anticoagulants; Z89.432 Acquired absence of left foot
CPT/HCPCS: 36415; 71010; 74176; 80053; 82962; 83605; 83690; 83735; 84100; 85025; 85610; 85730; 87040; 87081; 93005; 96365; 96366; 96375; 96376; G0378; J1170; J1815; J2405; J2543; J3370; J7030

== ENCOUNTER 2017-01-25 01:31 | Emergency (ER) | payer OTHER ==
[~2017-01-25] VITALS: Ht 177.8 cm; Wt 105.0 kg
[~2017-01-25 01:31] MED LIST changes: -CLON1PAT2 TRANSDERM; +DOCU-216 PO; -GABA-526 PO; +POLY17PO6 PO; -RIVA15TA PO
[2017-01-25 01:33] VITALS: Ht 177.8 cm; Wt 105.0 kg
[2017-01-25 01:50] VITALS: RESP 22; TEMP 98.2
[2017-01-25] MEDS ORDERED: morphine 4 MG/ML VIAL IV STA (01:54)
[2017-01-25] MEDS ORDERED: ONDANSETRON 4 MG INJ IV STA (01:54)
--- NOTE | 2017-01-25 02:08 | ERA ---
ER Documentation Chief Complaint Date/Time DATE: 01/25/17 TIME: 02:04 Chief Complaint right leg pain x 1 day, denies injury HPI 41-year-old male who presents the emergency room with right leg pain for approximately 1 day. The patient is a diabetic patient with prolonged hospitalization secondary to sepsis secondary to pneumonia. The patient has been debilitated secondary to this hospitalization is undergoing physical therapy. He describes pain posterior to the knee and along the hamstring of the right lower extremity. The pain is moderate to severe and worse with movement. He denies any chest pain or shortness of breath. It appears the patient was diagnosed with a DVT although he states left lower extremity the EMR states right lower extremity just prior to discharge. The patient is taking Xarelto. No fevers or chills, no numbness or tingling to the toes, no recent trauma. ROS All systems reviewed and are negative except as per history of present illness. Medications Home Meds Active Scripts Ondansetron (Ondansetron Odt) 4 Mg Tab.rapdis, 4 MG PO Q6H Y for NAUSEA AND/OR VOMITING, #30 TAB Prov:TAJ MIRANDA MD 01/25/17 Hydrocodone/Acetaminophen ([place] 10-325 Tablet) 1 Each Tablet, 1 TAB PO Q6H Y for PAIN, #10 TAB Prov:TAJ MIRANDA MD 01/25/17 Insulin Glargine* (Lantus*) 100 Unit/Ml Soln, 25 UNIT SC DAILY@20 for 30 Days Prov:CLARITA VERMA S. 01/19/17 Docusate Sodium (Dok) 100 Mg Capsule, 100 MG PO BID, #60 CAP Prov:CLARITA VERMA S. 01/19/17 Sevelamer Carbonate* (Renvela*) 0.8 Gm Powd.pack, 1.6 GM PO WITH MEALS, #90 Prov:CLARITA VERMA S. 01/19/17 Amlodipine Besylate* (Amlodipine Besylate*) 5 Mg Tablet, 5 MG PO BID, #60 TAB Prov:CLARITA VERMA S. 01/19/17 Rivaroxaban* (Xarelto*) 20 Mg Tablet, 20 MG PO WITH DINNER for 30 Days, TAB Prov:CLARITA VERMA S. 01/19/17 Polyethylene Glycol* (Miralax*) 17 Gm Powd.pack, 17 GM PO DAILY for 30 Days Prov:CLARITA VERMA S. 01/19/17 Furosemide* (Furosemide*) 40 Mg Tablet, 40 MG PO DAILY for 30 Days, TAB [facility] 01/13/17 Famotidine* (Famotidine*) 20 Mg Tablet, 20 MG PO Q12 for 30 Days, TAB 2 [facility] 01/13/17 Tamsulosin Hcl* (Flomax*) 0.4 Mg Cap.er.24h, 0.4 MG PO BID for 30 Days, CAP 1 [facility] 01/13/17 Cholecalciferol* (Vitamin D3*) 1,000 Unit Tablet, 1000 UNIT PO DAILY for 30 Days , TAB 2 [facility] 01/13/17 Lisinopril* (Lisinopril*) 40 Mg Tablet, 40 MG PO DAILY, #30 TAB 2 [facility] 01/13/17 Potassium Chloride* (Potassium Chloride*) 20 Meq Tablet.er, 20 MEQ PO DAILY for 30 Days, TAB.SA 2 [facility]ills [facility] 01/13/17 Carvedilol* (Carvedilol*) 25 Mg Tablet, 25 MG PO BID, #60 TAB 2 [facility] 01/13/17 Reported Medications Hydralazine Hcl* (Hydralazine Hcl*) 50 Mg Tab, 50 MG PO Q8, #90 TAB 01/18/17 Aspirin* (Aspirin* EC) 81 Mg Tablet.dr, 81 MG PO DAILY, TAB 12/15/16 Discontinued Reported Medications Gabapentin* (Gabapentin*) 600 Mg Tablet, 600 MG PO BID, #60 TAB 12/15/16 Discontinued Scripts Rivaroxaban* (Xarelto*) 20 Mg Tablet, 20 MG PO WITH DINNER for 30 Days, TAB 3 Refills Start February 03 2017 Prov:LEXII REED 01/13/17 Rivaroxaban* (Xarelto*) 15 Mg Tablet, 15 MG PO BID for 21 Days, TAB Prov:LEXII REED. 01/13/17 Insulin Glargine* (Lantus*) 100 Unit/Ml Soln, 25 UNIT SC DAILY@20 for 30 Days, 2 Refills Prov:LEXII REED. 01/13/17 Sevelamer Carbonate* (Renvela*) 0.8 Gm Powd.pack, 1.6 GM PO WITH MEALS for 30 Days, 2 Refills Prov:LEXII REED. 01/13/17 Hydralazine Hcl* (Apresoline*) 50 Mg Tab, 100 MG PO Q8 for 30 Days, TAB 2 Refills Prov:LEXII REED. 01/13/17 Clonidine Patch (CLONIDINE PATCH) 0.2 Mg/24 Hr Patch, 1 PATCH TRANSDERM Q7D for 30 Days, 2 Refills Prov:LEXII REED. 01/13/17 Amlodipine Besylate* (Amlodipine Besylate*) 5 Mg Tablet, 5 MG PO BID for 30 Days , TAB 2 Refills Prov:LEXII REED. 01/13/17 Allergies Allergies: Coded Allergies: ibuprofen (Verified Allergy, Mild, 01/18/17) PMhx/Soc History of Surgery: Yes (L big toe amputation (2016)) Anesthesia Reaction: No Hx Neurological Disorder: Yes (pt c/o constant headaches for past 3 years ) Hx Respiratory Disorders: No Hx Cardiac Disorders: No Hx Psychiatric Problems: No Hx Miscellaneous Medical Probl: Yes (hypertension) Hx Alcohol Use: Yes (stopped 1 year ago) Hx Substance Use: Yes (stopped 3 years ago) Hx Tobacco Use: Yes (stopped 1.5 years ago) FmHx Family History: No diabetes Physical Exam Vitals Vital Signs Date Time Temp Pulse Resp B/P Pulse Ox O2 Delivery O2 Flow Rate FiO2 01/25/17 02:35 84 191/93 01/25/17 02:11 81 204/95 01/25/17 01:50 98.2 80 22 211/119 97 Room Air 01/25/17 01:33 98.4 85 20 234/113 98 Physical Exam General: Well developed, well nourished, no acute distress Head: Normocephalic, atraumatic. Eyes: Pupils equally reactive, EOM intact ENT: Moist mucous membranes Neck: Supple, no lymphadenopathy Respiratory: Lungs clear bilaterally, no distress Cardiovascular: RRR, no murmurs, rubs, or gallops Abdominal: Soft, non-tender, non-distended, no peritoneal signs : Deferred MSK: Left lower extremity is in an Daniel wrap. The right lower extremity has 2+ pitting edema with 2+ dorsalis pedis and posterior tibial pulses. No temperature deficits. Soft compartments. The right knee is without limited range of motion, no bony abnormalities to the knee or ankle. Chronic venous stasis dermatitis is noted. Patient does have tenderness along the hamstring of the right lower extremity notably near the insertion point behind the knee Neurologic: Alert and oriented, moving all extremities, normal speech, no focal weakness, no cerebellar signs Skin: No rash Psych: Normal mood Result Diagram: 01/25/17 0150 01/25/17 0150 Results 24 hrs Laboratory Tests Test 01/25/17 01:50 White Blood Count 5.910^3/ul Red Blood Count 3.4610^6/ul Hemoglobin 9.6g/dl Hematocrit 28.8% Mean Corpuscular Volume 83.2fl Mean Corpuscular Hemoglobin 27.7pg Mean Corpuscular Hemoglobin Concent 33.3g/dl Red Cell Distribution Width 13.9% Platelet Count 48947^3/UL Mean Platelet Volume 9.4fl Neutrophils % 56.4% Lymphocytes % 29.8% Monocytes % 10.8% Eosinophils % 2.2% Basophils % 0.3% Nucleated Red Blood Cells % 0.0/100WBC Neutrophils # 3.310^3/ul Lymphocytes # 1.810^3/ul Monocytes # 0.610^3/ul Eosinophils # 0.110^3/ul Basophils # 0.010^3/ul Nucleated Red Blood Cells # 0.010^3/ul Prothrombin Time 16.2Sec Prothrombin Time Ratio 1.3 INR International Normalized Ratio 1.29 Activated Partial Thromboplast Time 67.8Sec Sodium Level 144mmol/L Potassium Level 3.2mmol/L Chloride Level 105mmol/L Carbon Dioxide Level 34mmol/L Anion Gap 8 Blood Urea Nitrogen 9mg/dl Creatinine 0.93mg/dl Glucose Level 143mg/dl Calcium Level 8.9mg/dl Creatine Kinase 119IU/L Current Medications Medications (Trade) Dose Ordered Sig/Kuldeep Route PRN Reason Start Time Stop Time Status Last Admin Dose Admin Morphine Sulfate (morphine) 4 mg ONCE STAT IV 01/25/17 01:54 01/25/17 01:56 DC 01/25/17 02:00 Ondansetron HCl (Zofran Inj) 4 mg ONCE STAT IV 01/25/17 01:54 01/25/17 01:56 DC 01/25/17 02:00 Procedures/MDM EKG, MONITORS, & DIAGNOSTIC IMAGING: Right lower extremity duplex: No evidence of acute or chronic DVT. LAB INTERPRETATION: No significant leukocytosis, no evidence of elevated CPK MEDICAL DECISION MAKING: The patient has right leg pain predominantly along the hamstring of the right lower extremity with associated right lower extremity edema. The patient recently had prolonged hospitalization with debilitation and is undergoing physical therapy. It is possible that the patient's pain is musculoskeletal likely secondary to hamstring strain versus insertion point tendinitis. Given the location of the patient's pain I believe this is likely. However, the patient did have a recent report of a DVT. He states that there was a left lower extremity however the electronic medical record reports a right peroneal DVT in December. The patient is appropriately anticoagulated and states compliance with medication. No evidence of pulmonary embolism. The patient will benefit from repeat duplex to evaluate for either resolution or progression of thrombus. It would also be reasonable to check the patient for rhabdomyolysis given that he is on a statin. Soft compartments. No evidence of acute vascular process given the patient has strong distal pulses with no temperature deficit. Additionally, given the patient's poorly controlled diabetes consideration for diabetic neuropathy would be reasonable. ER COURSE: The patient's pain is improved. The patient's duplex is negative. Laboratory testing is reassuring. No evidence of rhabdomyolysis. The patient can be safely discharged home. Again, the patient's symptoms seem to be secondary to musculoskeletal etiology. Warm compresses, ice, range of motion exercises advised. Return precautions discussed. Blood pressure improved. Patient's blood pressure was elevated (>120/80) but appears stable without evidence of hypertensive emergency or urgency. The patient was counseled about the risks of hypertension and urged to pursue outpatient monitoring and therapy within a week with their primary care physician. I kept the patient and/or family informed of laboratory and diagnostic imaging results throughout the emergency room course. DISPOSITION PLAN: We discussed follow up with the patient's primary care doctor within 24 to 48 hours as needed. We also discussed return to the emergency room for worsening symptoms or worsening condition. Outpatient referral: None required Discharge Medications: Tyshawn Mendoza We discussed the use of narcotics including avoidance of operating heavy machinery and driving as well as its addictive properties. Departure Diagnosis: Primary Impression: Myalgia Condition: Stable TAJ MIRANDA MD Jan 25, 2017 02:07
[2017-01-25 02:25] LABS: ADD SCAN DIFF NO
[2017-01-25 02:27] LABS: BASOPHILS % 0.3 % (0.0-2.0); EOSINOPHILS # 0.1 10^3/ul (0.0-0.5); EOSINOPHILS % 2.2 % (0.0-7.0); HEMATOCRIT 28.8 % (42.0-52.0); HEMOGLOBIN 9.6 g/dl (14.0-18.0); LYMPHOCYTES # 1.8 10^3/ul (0.8-2.9); LYMPHOCYTES % 29.8 % (15.0-51.0); MEAN CORPUSCULAR HEMOGLOBIN 27.7 pg (29.0-33.0); MEAN CORPUSCULAR HGB CONC 33.3 g/dl (32.0-37.0); MEAN CORPUSCULAR VOLUME 83.2 fl (82.0-101.0); MEAN PLATELET VOLUME 9.4 fl (7.4-10.4); MONOCYTE # 0.6 10^3/ul (0.3-0.9); MONOCYTES % 10.8 % (0.0-11.0); NEUTROPHIL # 3.3 10^3/ul (1.6-7.5); NEUTROPHILS % 56.4 % (39.0-77.0); PLATELET COUNT 340 10^3/UL (140-415); RED BLOOD COUNT 3.46 10^6/ul (4.70-6.10); RED CELL DISTRIBUTION WIDTH 13.9 % (11.5-14.5); WHITE BLOOD COUNT 5.9 10^3/ul (4.8-10.8)
--- NOTE | 2017-01-25 02:29 | RADRPT ---
PROCEDURE: US DVT. CLINICAL INDICATION: Right lower extremity pain. TECHNIQUE: Multiple longitudinal and transverse images of the right lower extremity veins were obt ained with marshall scale and color Doppler imaging. 2D grayscale measurements with compression, color Doppler flow, and augmentation was performed. COMPARISON: 01/08/2017 FINDINGS: The right common femoral, superficial femoral and popliteal veins are normally compressible througho ut. Right peroneal vein is patent. Color flow demonstrates normal filling of the vessel. Normal w aveforms are visualized and there is normal response to augmentation. IMPRESSION: 1. No evidence of a deep vein thrombosis involving the right lower extremity 2. Previously described right peroneal vein thrombus is no longer identified.. RPTAT: HMVK .Ever Garcia MD, MD Date Time Electronically viewed and signed by .Ever Garcia MD, MD on 01/25/2017 02:28 .K/
[2017-01-25 02:35] VITALS: BP 191/93; PULSE 84
[2017-01-25 02:47] LABS: INR 1.29; PROTIME 16.2 Sec (12.2-14.2); PT RATIO 1.3
[2017-01-25 02:48] LABS: CALCIUM 8.9 mg/dl (8.4-10.2); CREATININE 0.93 mg/dl (0.61-1.24); PARTIAL THROMBOPLASTIN TIME 67.8 Sec (25.0-35.0); POTASSIUM 3.2 mmol/L (3.5-5.1)
[2017-01-25] MEDS ORDERED: ONDA4TAB14 PO (02:52)
[2017-01-25] MEDS ORDERED: HYDR-902 PO (02:52)
[2017-01-25] MEDS ORDERED: ONDANSETRON (ODT) 4 MG TAB ODT STA (02:55)
[2017-01-25] MEDS ORDERED: HYDROCODONE/APAP (10/325) TAB PO ONE (03:00)
== END 2017-01-25 03:11 | disposition home or self-care (01) ==
LOC: E/R 01:31
DX: M79.1 Myalgia (principal); I10 Essential (primary) hypertension; E11.9 Type 2 diabetes mellitus without complications; Z79.4 Long term (current) use of insulin; Z79.82 Long term (current) use of aspirin; Z87.891 Personal history of nicotine dependence
CPT/HCPCS: 80048; 82550; 85025; 85610; 85730; 93971; J2270; J2405; Z7610; 36415; 96374; 96375

== ENCOUNTER 2017-01-26 20:46 | Emergency (ER) | payer OTHER ==
[~2017-01-26] VITALS: Ht 167.6 cm; Wt 100.0 kg
[~2017-01-26 20:46] MED LIST changes: +HYDR-902 PO; +ONDA4TAB14 PO
[2017-01-26 21:53] VITALS: Ht 167.6 cm; Wt 100.0 kg
--- NOTE | 2017-01-26 22:35 | ERD ---
ER Documentation Chief Complaint Date/Time DATE: 01/26/17 TIME: 22:30 Chief Complaint RIGHT LEG PAIN WAS SEEN HERE YESTERDAY, PAIN WORSENED, UNABLE TO WALK/STAND HPI This 41-year-old male patient presents to emergency department for reevaluation of right lower extremity pain. Patient was seen in treated in emergency department yesterday for right leg pain. Status post DVT documented on 2016. DVT in the right peroneal vein. Patient on Xarelto, Doppler study from yesterday shows no evidence of DVT thrombosis involving right lower extremity. Patient reports pain is 10 out of 10 on pain scale, states the medicine given yesterday is not effective. Patient reports that he is learning how to ambulate again after a one-month hospitalization for pneumonia. Patient denies chest pain, shortness of breath, dizziness, or palpitations. ROS All systems reviewed and are negative except as per history of present illness. Medications Home Meds Active Scripts Hydrocodone/Acetaminophen ([place] 10-325 Tablet) 1 Each Tablet, 1 EACH PO QID, # 10 TAB Prov:ISABELLADOUGLAS 01/27/17 Ondansetron (Ondansetron Odt) 4 Mg Tab.rapdis, 4 MG PO Q6H Y for NAUSEA AND/OR VOMITING, #30 TAB Prov:TAJ MIRANDA MD 01/25/17 Hydrocodone/Acetaminophen ([place] 10-325 Tablet) 1 Each Tablet, 1 TAB PO Q6H Y for PAIN, #10 TAB Prov:TAJ MIRANDA MD 01/25/17 Insulin Glargine* (Lantus*) 100 Unit/Ml Soln, 25 UNIT SC DAILY@20 for 30 Days Prov:CLARITA VERMA S. 01/19/17 Docusate Sodium (Dok) 100 Mg Capsule, 100 MG PO BID, #60 CAP Prov:CLARITA VERMA S. 01/19/17 Sevelamer Carbonate* (Renvela*) 0.8 Gm Powd.pack, 1.6 GM PO WITH MEALS, #90 Prov:CLARITA VERMA S. 01/19/17 Amlodipine Besylate* (Amlodipine Besylate*) 5 Mg Tablet, 5 MG PO BID, #60 TAB Prov:CLARITA VERMA S. 01/19/17 Rivaroxaban* (Xarelto*) 20 Mg Tablet, 20 MG PO WITH DINNER for 30 Days, TAB Prov:CLARITA VERMA S. 01/19/17 Polyethylene Glycol* (Miralax*) 17 Gm Powd.pack, 17 GM PO DAILY for 30 Days Prov:CLARITA VERMA S. 01/19/17 Furosemide* (Furosemide*) 40 Mg Tablet, 40 MG PO DAILY for 30 Days, TAB Prov:LEXII REED . 01/13/17 Famotidine* (Famotidine*) 20 Mg Tablet, 20 MG PO Q12 for 30 Days, TAB 2 Refills Prov:LEXII REED . 01/13/17 Tamsulosin Hcl* (Flomax*) 0.4 Mg Cap.er.24h, 0.4 MG PO BID for 30 Days, CAP 1 Refill Prov:LEXII REED . 01/13/17 Cholecalciferol* (Vitamin D3*) 1,000 Unit Tablet, 1000 UNIT PO DAILY for 30 Days , TAB 2 Refills Prov:LEXII REED . 01/13/17 Lisinopril* (Lisinopril*) 40 Mg Tablet, 40 MG PO DAILY, #30 TAB 2 Refills Prov:LEXII REED . 01/13/17 Potassium Chloride* (Potassium Chloride*) 20 Meq Tablet.er, 20 MEQ PO DAILY for 30 Days, TAB.SA 2 Refills Prov:LEXII REED . 01/13/17 Carvedilol* (Carvedilol*) 25 Mg Tablet, 25 MG PO BID, #60 TAB 2 Refills Prov:LEXII REED . 01/13/17 Reported Medications Hydralazine Hcl* (Hydralazine Hcl*) 50 Mg Tab, 50 MG PO Q8, #90 TAB 01/18/17 Aspirin* (Aspirin* EC) 81 Mg Tablet.dr, 81 MG PO DAILY, TAB 12/15/16 Allergies Allergies: Coded Allergies: ibuprofen (Verified Allergy, Mild, 01/27/17) PMhx/Soc History of Surgery: Yes (L big toe amputation (2016)) Anesthesia Reaction: No Hx Neurological Disorder: Yes (pt c/o constant headaches for past 3 years ) Hx Respiratory Disorders: No Hx Cardiac Disorders: No Hx Psychiatric Problems: No Hx Miscellaneous Medical Probl: Yes (hypertension) Hx Alcohol Use: Yes (stopped 1 year ago) Hx Substance Use: Yes (stopped 3 years ago) Hx Tobacco Use: Yes (stopped 1.5 years ago) Smoking Status: Never smoker Physical Exam Vitals Vital Signs Date Time Temp Pulse Resp B/P Pulse Ox O2 Delivery O2 Flow Rate FiO2 01/27/17 01:42 86 18 196/102 100 Room Air 01/26/17 21:53 98.9 82 18 205/94 96 Hypertension , triage notes reviewed Physical Exam Const: Obvious discomfort, no acute distress Head: Atraumatic Eyes: Normal Conjunctiva, PERRLA, EOMI ENT: Normal External Ears, Nose and Mouth. Neck: Full range of motion..~ No meningismus. Resp: Clear to auscultation bilaterally, no rales wheezes or rhonchi Cardio: Regular rate and rhythm, no murmurs, S1, S2, no S3, S4 Abd: Soft, non tender, non distended. Normal bowel sounds Skin: No petechiae or rashes Back: No midline or flank tenderness Ext: Lower Extremity -right Skin: Multiple healing ulcers bilateral lower extremity Compartments: Soft, positive Homans sign pain radiates from calf to right groin Motor: Full active range of motion hip/knee/ankle/foot Sensation: Intact to light touch anterior, posterior, lateral and inferior surfaces. Bones: Nontender pelvis/knee/proximal tibia/ malleoli/foot Joints: No effusion or laxity Pulses/Perfusion: 1+ DP, Capillary refill < 2 seconds Neur: Awake and alert Psych: Normal Mood and Affect Result Diagram: 01/26/17 2300 Results 24 hrs Laboratory Tests Test 01/26/17 23:00 01/26/17 23:50 White Blood Count 5.810^3/ul Red Blood Count 3.1010^6/ul Hemoglobin 8.8g/dl Hematocrit 26.5% Mean Corpuscular Volume 85.5fl Mean Corpuscular Hemoglobin 28.4pg Mean Corpuscular Hemoglobin Concent 33.2g/dl Red Cell Distribution Width 13.8% Platelet Count 33304^3/UL Mean Platelet Volume 9.5fl Neutrophils % 58.3% Lymphocytes % 28.7% Monocytes % 9.9% Eosinophils % 2.1% Basophils % 0.5% Nucleated Red Blood Cells % 0.0/100WBC Neutrophils # 3.410^3/ul Lymphocytes # 1.710^3/ul Monocytes # 0.610^3/ul Eosinophils # 0.110^3/ul Basophils # 0.010^3/ul Nucleated Red Blood Cells # 0.010^3/ul Prothrombin Time 18.4Sec Prothrombin Time Ratio 1.4 INR International Normalized Ratio 1.52 Activated Partial Thromboplast Time 83.6Sec Stool Occult Blood NEGATIVE Current Medications Medications (Trade) Dose Ordered Sig/Kuldeep Route PRN Reason Start Time Stop Time Status Last Admin Dose Admin Morphine Sulfate (morphine) 4 mg ONCE STAT IV 01/26/17 22:40 01/26/17 22:42 DC 01/26/17 23:01 Ondansetron HCl 4 mg 4 mg ONCE STAT IV 01/26/17 22:40 01/26/17 22:42 DC 01/26/17 23:01 Sodium Chloride (NS) 1,000 ml @ 1,000 mls/hr Q1H ONCE IV 01/26/17 23:30 01/27/17 00:29 DC 01/26/17 23:17 Hydromorphone HCl (Dilaudid) 1 mg ONCE STAT IV 01/26/17 23:12 01/26/17 23:14 DC 01/26/17 23:17 Interpretation text CBC identifies anemia decreased to 8.8 when compared to yesterday's findings. Prothrombin time abnormal 86 seconds on Xarelto. Procedures/MDM PROCEDURE: Left lower extremity arterial ultrasound with Doppler. CLINICAL INDICATION: Peripheral vascular disease, pain and edema. TECHNIQUE: Multiple sonographic images of the left lower extremity arterial system was obtained utilizing grayscale, color-flow and Doppler imaging. The images were reviewed on a PACS workstation. COMPARISON: None. FINDINGS: There is biphasic and triphasic flow within the left common femoral, superficial femoral, popliteal, posterior tibial and dorsalis pedis arteries. There is no significant atherosclerotic disease. There is no stenosis or occlusion. IMPRESSION: Unremarkable left lower extremity arterial ultrasound. .Jc Evans MD, MD Date Time Electronically viewed and signed by .Jc Evans MD, on 01/26/2017 23:57 This 41-year-old male patient presents to emergency department today for reevaluation and treatment of right lower extremity pain, pain is popliteal radiating to right groin. 10 out of 10 on pain scale. Patient has a complex medical history including a one-month hospitalization stay for treatment of pneumonia, patient is undergoing physical therapy for ambulation difficulties, patient states that he is learning to walk again. Patient also has documentation of a DVT in his right peroneal vein, from 01/08/2017. Patient was seen yesterday for this same complaint; venous study from yesterday 01/25/17 shows no evidence of DVT involving the right lower extremity, previously described right peroneal vein thrombosis no longer identified. Patient is on Xarelto, appears pale, pain not controlled with [place]. Patient's discharge plan yesterday include to follow-up with his primary care physician within 24- 48 hours and pain control with [place]. Patient reports that interventions are not helping.. Patient's blood pressure was elevated greater than 120/180. Patient's blood pressure today is 204/94. Elevation is suspected partially related to pain, ACS, AMI not suspected. DVD not suspected, patient is noted to have +3 pitting edema with stasis ulcers a arterial Doppler study will be performed to rule out arterial clot. Pain will be addressed with morphine along with a liter of normal saline and Zofran. Patient reports pain has not changed after 20 minutes of morphine, medication changed to 1 mg of IV Dilaudid. Patient's hemoglobin abnormal at 8.8, hematocrit 26.5, this has decreased since yesterday. Stool for occult blood negative, abnormal PTT 83.6 on Xarelto. Patient is adamant that he wants to go home. Supervising physician Dr. Olmos consulted, case discussed. Patient will be discharged home with strict return to emergency department parameters. Patient to return for fatigue, shortness of breath, chest pain, pain not improving in his right lower leg. Hematuria, bleeding from gums, nosebleeds, or rectal bleeding. I feel the patient is stable for discharge at this time. I have discussed results, examination findings, the treatment plan with the patient and family present prior to discharge. Indications for emergent reevaluation, side effects of medication were also discussed. All questions were answered. Patient verbalizes understanding and agrees with plan of care. Departure Diagnosis: Primary Impression: Pain of right leg Additional Impression: Anemia Anemia type: unspecified type Qualified Code: D64.9 - Anemia, unspecified type Condition: Good Patient Instructions: Anemia, Complementary Care for Pain Additional Instructions: Thank you for for coming to [facility] for your care today. Please ask your nurse or provider if you have questions about your care today and do not leave until all your questions have been answered. Please use any medications given as directed and follow-up with your doctor (or the doctor you were referred to) in the next 2-3 days. If you do not have a primary care doctor you may follow up at the [facility] (listed below). You may also use motrin and tylenol as needed for fever and/or pain unless instructed otherwise by your provider or nurse. Indications for more urgent follow-up have been discussed, but you may return to the Emergency Department at ANY time for any worrisome or worsening symptoms. If you have abdominal pain, please know that no test or exam you received is perfect and you should follow up within 8 hours for continued pain. If you had any imaging studies today, such as an X-Ray or CT Scan, these studies will be reviewed later by a radiologist. You will be called if there are important findings that were not identified today, so make sure the contact information you provided at registration is correct. If you received any narcotic pain control medicine today, such as Vicodin, Morphine or Dilaudid, your coordination and judgment may be affected for a number of hours. Please do not drive or operate heavy machinery, and you may want someone to assist you at home. If you were given a prescription for narcotic medication, be aware that it is very addictive- use sparingly and only if necessary. DOUGLAS MASON Jan 26, 2017 22:35
[2017-01-26] MEDS ORDERED: morphine 4 MG/ML VIAL IV STA (22:40)
[2017-01-26] MEDS ORDERED: ONDANSETRON 4 MG INJ IV STA (22:40)
[2017-01-26 23:12] LABS: ADD SCAN DIFF NO
[2017-01-26] MEDS ORDERED: HYDROmorphONE 1 MG/ML SYG IV STA (23:12)
[2017-01-26 23:14] LABS: BASOPHILS % 0.5 % (0.0-2.0); EOSINOPHILS # 0.1 10^3/ul (0.0-0.5); EOSINOPHILS % 2.1 % (0.0-7.0); HEMATOCRIT 26.5 % (42.0-52.0); HEMOGLOBIN 8.8 g/dl (14.0-18.0); LYMPHOCYTES # 1.7 10^3/ul (0.8-2.9); LYMPHOCYTES % 28.7 % (15.0-51.0); MEAN CORPUSCULAR HEMOGLOBIN 28.4 pg (29.0-33.0); MEAN CORPUSCULAR HGB CONC 33.2 g/dl (32.0-37.0); MEAN CORPUSCULAR VOLUME 85.5 fl (82.0-101.0); MEAN PLATELET VOLUME 9.5 fl (7.4-10.4); MONOCYTE # 0.6 10^3/ul (0.3-0.9); MONOCYTES % 9.9 % (0.0-11.0); NEUTROPHIL # 3.4 10^3/ul (1.6-7.5); NEUTROPHILS % 58.3 % (39.0-77.0); PLATELET COUNT 284 10^3/UL (140-415); RED CELL DISTRIBUTION WIDTH 13.8 % (11.5-14.5); WHITE BLOOD COUNT 5.8 10^3/ul (4.8-10.8)
[2017-01-26 23:29] LABS: INR 1.52; PROTIME 18.4 Sec (12.2-14.2); PT RATIO 1.4
[2017-01-26] MEDS ORDERED: SOD CHLORIDE 0.9% 1,000 ML IV ONE (23:30)
[2017-01-26 23:36] LABS: PARTIAL THROMBOPLASTIN TIME 83.6 Sec (25.0-35.0)
--- NOTE | 2017-01-26 23:58 | RADRPT ---
PROCEDURE: Left lower extremity arterial ultrasound with Doppler. CLINICAL INDICATION: Peripheral vascular disease, pain and edema. TECHNIQUE: Multiple sonographic images of the left lower extremity arterial system was obtained ut ilizing grayscale, color-flow and Doppler imaging. The images were reviewed on a PACS workstation. COMPARISON: None. FINDINGS: There is biphasic and triphasic flow within the left common femoral, superficial femoral, popliteal, posterior tibial and dorsalis pedis arteries. There is no significant atherosclerotic disease. The re is no stenosis or occlusion. IMPRESSION: Unremarkable left lower extremity arterial ultrasound. .Jc Evans MD, Date Time Electronically viewed and signed by .Jc Evans MD, on 01/26/2017 23:57 .T/
[2017-01-27 01:42] VITALS: BP 196/102; PULSE 86; RESP 18
[2017-01-27] MEDS ORDERED: HYDR-902 PO (01:55)
== END 2017-01-27 02:10 | disposition home or self-care (01) ==
LOC: FTE 20:46
DX: M79.604 Pain in right leg (principal); D64.9 Anemia, unspecified; I10 Essential (primary) hypertension; E11.9 Type 2 diabetes mellitus without complications; Z79.01 Long term (current) use of anticoagulants; Z79.4 Long term (current) use of insulin; Z79.82 Long term (current) use of aspirin; Z87.891 Personal history of nicotine dependence
CPT/HCPCS: 82270; 85025; 85610; 85730; 93922; 96374; 96375; J1170; J2270; J2405; J7030; Z7502

== ENCOUNTER 2017-01-28 21:26 | Inpatient (IN) | payer OTHER ==
[~2017-01-28] VITALS: Ht 170.2 cm; Wt 106.6 kg
[2017-01-28 22:28] LABS: ADD SCAN DIFF NO
[2017-01-28 22:29] LABS: BASOPHILS % 0.5 % (0.0-2.0); EOSINOPHILS # 0.1 10^3/ul (0.0-0.5); EOSINOPHILS % 1.9 % (0.0-7.0); HEMATOCRIT 27.6 % (42.0-52.0); HEMOGLOBIN 9.1 g/dl (14.0-18.0); LYMPHOCYTES # 1.6 10^3/ul (0.8-2.9); LYMPHOCYTES % 26.4 % (15.0-51.0); MEAN CORPUSCULAR HEMOGLOBIN 27.9 pg (29.0-33.0); MEAN CORPUSCULAR VOLUME 84.7 fl (82.0-101.0); MEAN PLATELET VOLUME 10.1 fl (7.4-10.4); MONOCYTE # 0.6 10^3/ul (0.3-0.9); MONOCYTES % 9.5 % (0.0-11.0); NEUTROPHIL # 3.8 10^3/ul (1.6-7.5); NEUTROPHILS % 61.2 % (39.0-77.0); PLATELET COUNT 295 10^3/UL (140-415); RED BLOOD COUNT 3.26 10^6/ul (4.70-6.10); RED CELL DISTRIBUTION WIDTH 13.9 % (11.5-14.5); WHITE BLOOD COUNT 6.2 10^3/ul (4.8-10.8)
[2017-01-28] MEDS ORDERED: hydrALAzine 20 MG INJ IV ONE (22:30)
[2017-01-28 22:58] LABS: INR 1.53; PROTIME 18.5 Sec (12.2-14.2); PT RATIO 1.4
[2017-01-28 22:59] LABS: ANION GAP 9 (8-16); BLOOD UREA NITROGEN 12 mg/dl (7-20); CALCIUM 8.6 mg/dl (8.4-10.2); CARBON DIOXIDE 32 mmol/L (21-31); CHLORIDE 105 mmol/L (97-110); CREATININE 1.11 mg/dl (0.61-1.24); GLUCOSE 128 mg/dl (70-220); PARTIAL THROMBOPLASTIN TIME 68.1 Sec (25.0-35.0); POTASSIUM 3.4 mmol/L (3.5-5.1); SODIUM 143 mmol/L (135-144)
[2017-01-28 23:14] LABS: TROPONIN-I < 0.012 ng/ml (0.00-0.12)
[2017-01-28] MEDS ORDERED: ONDANSETRON 4 MG INJ IV STA (23:18)
[2017-01-28] MEDS ORDERED: morphine 4 MG/ML VIAL IV STA (23:18)
--- NOTE | 2017-01-28 23:21 | RADRPT ---
PROCEDURE: Chest x-ray CLINICAL INDICATION: Chest pain TECHNIQUE: Chest single view COMPARISON: 01/18/2017 FINDINGS: The heart is normal in size. The pulmonary vessels are normal in caliber. There are new patchy bila teral lower lung infiltrates right greater than left suspicious for evolving pneumonia. The costoph renic angles sharp. Bony thorax is unremarkable IMPRESSION: New patchy bilateral lower lung infiltrates suspicious for evolving pneumonia RPTAT: HH .David Andrews MD, MD Date Time Electronically viewed and signed by .David Andrews MD, MD on 01/28/2017 23:20 .W/
[2017-01-29] VITALS (11 sets, daily range): BP systolic 141–163; BP diastolic 56–79; PULSE 72–87; RESP 17–20; TEMP 98.1; Ht 170.2 cm; Wt 106.6 kg
--- NOTE | 2017-01-29 00:19 | ERA ---
ER Documentation Chief Complaint Date/Time DATE: 01/29/17 TIME: 00:18 Chief Complaint CP DESCRIBED PRESSURE RADIATING TO LEFT NECK 1.5 HR AGO WITH SOB, DIZZY HPI This is a 41-year-old male who comes in with chest pain described as pressure relating to his left neck from 1.5 hours. He also had mild associated shortness of breath and dizziness. No nausea no vomiting no fevers no chills. Pain is mild to moderate in intensity, sharp, right-sided with no exacerbating relieving factors. He was noted to have severely elevated blood pressures in triage. Patient states he is compliant with his blood pressure medication regimen ROS All systems reviewed and are negative except as per history of present illness. Medications Home Meds Active Scripts Hydrocodone/Acetaminophen ([place] 10-325 Tablet) 1 Each Tablet, 1 EACH PO QID, # 10 TAB Prov:ISABELLADOUGLAS 01/27/17 Ondansetron (Ondansetron Odt) 4 Mg Tab.rapdis, 4 MG PO Q6H Y for NAUSEA AND/OR VOMITING, #30 TAB Prov:TAJ MIRANDA MD 01/25/17 Hydrocodone/Acetaminophen ([place] 10-325 Tablet) 1 Each Tablet, 1 TAB PO Q6H Y for PAIN, #10 TAB Prov:TAJ MIRANDA MD 01/25/17 Insulin Glargine* (Lantus*) 100 Unit/Ml Soln, 25 UNIT SC DAILY@20 for 30 Days Prov:CLARITA VERMA S. 01/19/17 Docusate Sodium (Dok) 100 Mg Capsule, 100 MG PO BID, #60 CAP Prov:CLARITA VERMA S. 01/19/17 Sevelamer Carbonate* (Renvela*) 0.8 Gm Powd.pack, 1.6 GM PO WITH MEALS, #90 Prov:CLARITA VERMA S. 01/19/17 Amlodipine Besylate* (Amlodipine Besylate*) 5 Mg Tablet, 5 MG PO BID, #60 TAB Prov:CLARITA VERMA S. 01/19/17 Rivaroxaban* (Xarelto*) 20 Mg Tablet, 20 MG PO WITH DINNER for 30 Days, TAB Prov:CLARITA VERMA S. 01/19/17 Polyethylene Glycol* (Miralax*) 17 Gm Powd.pack, 17 GM PO DAILY for 30 Days Prov:CLARITA VERMA S. 01/19/17 Furosemide* (Furosemide*) 40 Mg Tablet, 40 MG PO DAILY for 30 Days, TAB Prov:LEXII REED. 01/13/17 Famotidine* (Famotidine*) 20 Mg Tablet, 20 MG PO Q12 for 30 Days, TAB 2 Refills Prov:LEXII REED 01/13/17 Tamsulosin Hcl* (Flomax*) 0.4 Mg Cap.er.24h, 0.4 MG PO BID for 30 Days, CAP 1 Refill Prov:G[facility]AT[facility] CENTERBoaz 01/13/17 Cholecalciferol* (Vitamin D3*) 1,000 Unit Tablet, 1000 UNIT PO DAILY for 30 Days , TAB 2 Refills Prov:LEXII REED. 01/13/17 Lisinopril* (Lisinopril*) 40 Mg Tablet, 40 MG PO DAILY, #30 TAB 2 Refills Prov:LEXII REED . 01/13/17 Potassium Chloride* (Potassium Chloride*) 20 Meq Tablet.er, 20 MEQ PO DAILY for 30 Days, TAB.SA 2 Refills Prov:LEXII REED 01/13/17 Carvedilol* (Carvedilol*) 25 Mg Tablet, 25 MG PO BID, #60 TAB 2 Refills Prov:LEXII REED. 01/13/17 Reported Medications Hydralazine Hcl* (Hydralazine Hcl*) 50 Mg Tab, 50 MG PO Q8, #90 TAB 01/18/17 Aspirin* (Aspirin* EC) 81 Mg Tablet.dr, 81 MG PO DAILY, TAB 12/15/16 Allergies Allergies: Coded Allergies: ibuprofen (Verified Allergy, Mild, 01/27/17) PMhx/Soc History of Surgery: Yes (L big toe amputation (2016)) Anesthesia Reaction: No Hx Neurological Disorder: Yes (pt c/o constant headaches for past 3 years ) Hx Respiratory Disorders: No Hx Cardiac Disorders: No Hx Psychiatric Problems: No Hx Miscellaneous Medical Probl: Yes (hypertension) Hx Alcohol Use: Yes (stopped 1 year ago) Hx Substance Use: Yes (stopped 3 years ago) Hx Tobacco Use: Yes (stopped 1.5 years ago) Smoking Status: Former smoker Physical Exam Vitals Vital Signs Date Time Temp Pulse Resp B/P Pulse Ox O2 Delivery O2 Flow Rate FiO2 01/29/17 00:16 98.1 88 16 154/72 95 Nasal Cannula 4.0 01/28/17 22:59 97.9 96 16 162/79 96 Nasal Cannula 2.0 01/28/17 22:28 Nasal Cannula 2 01/28/17 21:29 98.3 103 24 208/109 94 Physical Exam Const: [] Head: Atraumatic Eyes: Normal Conjunctiva ENT: Normal External Ears, Nose and Mouth. Neck: Full range of motion..~ No meningismus. Resp: Clear to auscultation bilaterally Cardio: Regular rate and rhythm, no murmurs Abd: Soft, non tender, non distended. Normal bowel sounds Skin: No petechiae or rashes Back: No midline or flank tenderness Ext: No cyanosis, or edema Neur: Awake and alert Psych: Normal Mood and Affect Result Diagram: 01/28/17221801/28/172218 Results 24 hrs Laboratory Tests Test 01/28/17 22:19 White Blood Count 6.210^3/ul Red Blood Count 3.2610^6/ul Hemoglobin 9.1g/dl Hematocrit 27.6% Mean Corpuscular Volume 84.7fl Mean Corpuscular Hemoglobin 27.9pg Mean Corpuscular Hemoglobin Concent 33.0g/dl Red Cell Distribution Width 13.9% Platelet Count 93235^3/UL Mean Platelet Volume 10.1fl Neutrophils % 61.2% Lymphocytes % 26.4% Monocytes % 9.5% Eosinophils % 1.9% Basophils % 0.5% Nucleated Red Blood Cells % 0.0/100WBC Neutrophils # 3.810^3/ul Lymphocytes # 1.610^3/ul Monocytes # 0.610^3/ul Eosinophils # 0.110^3/ul Basophils # 0.010^3/ul Nucleated Red Blood Cells # 0.010^3/ul Prothrombin Time 18.5Sec Prothrombin Time Ratio 1.4 INR International Normalized Ratio 1.53 Activated Partial Thromboplast Time 68.1Sec Sodium Level 143mmol/L Potassium Level 3.4mmol/L Chloride Level 105mmol/L Carbon Dioxide Level 32mmol/L Anion Gap 9 Blood Urea Nitrogen 12mg/dl Creatinine 1.11mg/dl Glucose Level 128mg/dl Calcium Level 8.6mg/dl Troponin I < 0.012ng/ml Current Medications Medications (Trade) Dose Ordered Sig/Kuldeep Route PRN Reason Start Time Stop Time Status Last Admin Dose Admin Hydralazine HCl (Apresoline) 20 mg ONCE ONCE IV 01/28/17 22:30 01/28/17 22:31 DC 01/28/17 22:24 Morphine Sulfate (morphine) 4 mg ONCE STAT IV 01/28/17 23:18 01/28/17 23:19 DC 01/28/17 23:22 Ondansetron HCl (Zofran Inj) 4 mg ONCE STAT IV 01/28/17 23:18 01/28/17 23:19 DC 01/28/17 23:22 Procedures/MDM EKG: Rate/Rhythm: Normal Sinus Rhythm QRS, ST, T-waves: No changes consistent w/ acute ischemia Impression: No evidence of ischemia or arrhythmia Chest X-ray 1V Interpreted by me: Soft Tissue: No acute abnormalities Bones: No acute abnormalities Mediastinum/Cardiac Silhouette/Lungs: No acute abnormalities Patient's symptoms are concerning for cardiac cause will require inpatient workup and continuous monitoring. Further w/u for ischemia, arrhythmia, PE or dissection will be deferred to the inpatient team. Accepting Care Team: Current data and ongoing care discussed. Time: 1221 Primary Provider: Hospitalist Consulting: For inpatient team Outstanding Data: none Critical Care: Time: 45 minutes Treatments/Evaluations: Close monitoring and treatment of unstable vital signs, cardiorespiratory, and neurologic status, while maintaining tight balance of fluid, respiratory, and cardiac interventions. Departure Diagnosis: Primary Impression: Chest pain Qualified Code: I20.0 - Unstable angina pectoris Additional Impression: Hypertensive emergency Condition: Critical GLORIA GUADARRAMA Jan 29, 2017 00:19
[2017-01-29] MEDS ORDERED: INSULIN GLARGINE [LANtus] 3 ML PEN SC SCH (01:30)
[2017-01-29] MEDS ORDERED: HYDROCODONE/APAP (10/325) TAB PO PRN (01:30)
[2017-01-29] MEDS ORDERED: ACETAMINOPHEN 325 MG TAB PO PRN (02:00)
[2017-01-29] MEDS ORDERED: NITROGLYCERIN (SL) 0.4 MG TAB SL PRN (02:00)
[2017-01-29] MEDS ORDERED: ONDANSETRON 4 MG INJ IV PRN (02:00)
[2017-01-29] MEDS ORDERED: ACCU-CHEK XX SCH ×2 (02:00)
[2017-01-29] MEDS ORDERED: DEXTROSE 50% 50 ML SYRINGE IV PRN ×2 (02:30)
[2017-01-29] MEDS ORDERED: GLUCAGON 1 MG INJ IM PRN (02:30)
[2017-01-29] MEDS ORDERED: GLUCOSE GEL 15 GRAM TUBE PO PRN ×2 (02:30)
[2017-01-29] MEDS ORDERED: GLUCOSE GEL 15 GRAM TUBE BUCCAL PRN (02:30)
[2017-01-29] MEDS: morphine 2 MG INJ IV PRN ×3 (03:07→11:49)
[2017-01-29 04:13] LABS: ADD SCAN DIFF NO
[2017-01-29 04:17] LABS: BASOPHILS % 0.4 % (0.0-2.0); EOSINOPHILS # 0.1 10^3/ul (0.0-0.5); EOSINOPHILS % 2.1 % (0.0-7.0); HEMATOCRIT 24.6 % (42.0-52.0); LYMPHOCYTES # 1.6 10^3/ul (0.8-2.9); MEAN CORPUSCULAR HEMOGLOBIN 27.8 pg (29.0-33.0); MEAN CORPUSCULAR HGB CONC 32.5 g/dl (32.0-37.0); MEAN CORPUSCULAR VOLUME 85.4 fl (82.0-101.0); MONOCYTE # 0.6 10^3/ul (0.3-0.9); MONOCYTES % 11.3 % (0.0-11.0); NEUTROPHIL # 3.3 10^3/ul (1.6-7.5); NEUTROPHILS % 57.8 % (39.0-77.0); PLATELET COUNT 220 10^3/UL (140-415); RED BLOOD COUNT 2.88 10^6/ul (4.70-6.10); WHITE BLOOD COUNT 5.7 10^3/ul (4.8-10.8)
[2017-01-29 04:35] LABS: ALBUMIN 3.1 g/dl (3.3-4.9); ALBUMIN/GLOBULIN RATIO 1.4; BILIRUBIN,INDIRECT 1.2 mg/dl (0-1.1); BILIRUBIN,TOTAL 1.2 mg/dl (0.2-1.3); CALCIUM 8.3 mg/dl (8.4-10.2); CHOL/HDL RATIO 6.1 RATIO; CREATININE 1.1 mg/dl (0.61-1.24); MAGNESIUM 1.6 mg/dl (1.7-2.5); PHOSPHORUS 4.2 mg/dl (2.5-4.9); POTASSIUM 3.3 mmol/L (3.5-5.1); TOTAL PROTEIN 5.3 g/dl (6.1-8.1)
[2017-01-29 04:44] LABS: TROPONIN-I 0.015 ng/ml (0.00-0.12)
[2017-01-29 04:45] LABS: TROPONIN-I 0.016 ng/ml (0.00-0.12)
[2017-01-29 04:46] LABS: CK-MB 3.56 ng/ml (0.0-2.4)
[2017-01-29 05:04] LABS: THYROID STIMULATING HORMONE 2.37 MIU/L (0.465-4.680)
[2017-01-29] MEDS ORDERED: LEVOFLOXACIN 500MG/D5W (PMX) 100 ML IVPB SCH (06:00)
[2017-01-29] MEDS ORDERED: FUROSEMIDE 40 MG TAB PO SCH (06:00)
[2017-01-29] MEDS ORDERED: POTASSIUM CHLORIDE (SR) 20 MEQ TAB PO STA (06:17)
[2017-01-29] MEDS ORDERED: RIVA15TA PO (06:23)
[2017-01-29] MEDS ORDERED: MAGNESIUM SULFATE 2 GM/50 ML 50 ML IVPB ONE (06:30)
--- NOTE | 2017-01-29 07:39 | HP ---
DATE OF ADMISSION: 01/28/2017 TIME SEEN: 3 a.m. CHIEF COMPLAINT: Chest woodruff. HISTORY OF PRESENT ILLNESS: The patient is a 41-year-old male with a history of hypertension, diabe elizabeth, dyslipidemia, recently diagnosed left peroneal DVT, iron-deficiency anemia, and a recent vent-d ependent respiratory failure who presented to the emergency department with chest pain that started a few hours ago. Chest pain is mainly left-sided, with radiation to his neck and upper back and was described as pressure-like. He also pointed in the epigastric area when describing his chest pain. He also reported associated shortness of breath and occasional cough. The patient was recently ad mitted for abdominal pain 10 days ago with [address] scan without any acute findings, and after a day of hospitalization, the patient was discharged in stable condition. Prior to his last hospitalization, he was also admitted here not long ago after he presented with cough, fever, and chest pain, and at that time he was diagnosed with community-acquired pneumonia. He also had an elevated troponin at that time which was thought to be secondary to sepsis. Unfortunately, during that hospitalization, he rapidly declined and was intubated for respiratory failure, and also he was diagnosed with left l ower extremity DVT. He, at that time, developed severe myopathy in the lower extremity and was diag nosed with rhabdomyolysis. He had an extensive workup after he was seen in consultation with robertoa chelseyy because of a positive DAISY, but without any definitive diagnosis. The positive DAISY was though t to be also unclear significance, but he was treated with low-dose steroids with some improvement. He was discharged with home health for continued physical therapy. When he presented to the ER today, blood pressure was 208/109, heart rate 103, respiratory rate 24, temperature 98.3, oxygen saturation 94%. Laboratory value shows a hemoglobin of 9.1, potassium 3.4, bicarbonate 32, otherwise the rest of his labs are within acceptable range. His initial troponin i s negative. Chest x-ray shows new patchy bilateral lower lung infiltrates suspicious for evolving p neumonia. The patient was given hydralazine, Zofran, and morphine when he was in the ER. REVIEW OF SYSTEMS: A 12-point review was performed, negative except as noted in the HPI. PAST MEDICAL HISTORY: As per HPI. PAST SURGICAL HISTORY: Left great toe amputation. SOCIAL HISTORY: He has a history of alcohol abuse, stopped over a year ago. He has a history of escobar bstance abuse and stopped over 3 years ago. He stopped smoking a iyhs-cuf-v-half ago. ALLERGIES: IBUPROFEN. HOME MEDICATIONS: 1. Flomax. 2. Xarelto. 3. Coreg. 4. Norvasc. 5. Hydralazine. 6. Lisinopril. 7. Aspirin. 8. [place]. 9. Lasix. 10. ____. 11. Potassium. 12. Dulcolax. 13. Pepcid. 14. Zofran. 15. MiraLax. 16. Lantus. 17. Vitamin D3. PHYSICAL EXAMINATION: VITAL SIGNS: Blood pressure 162/77, heart rate 89, respiratory rate 20, temperature 98.8, oxygen sa turation 94% on room air. GENERAL: No acute distress. He is lying in bed, answering questions appropriately, able to speak i n full sentences. HEENT: No obvious head deformity. Pupils react to light. Extraocular muscles intact. No scleral icterus. CARDIOVASCULAR: Regular rate and rhythm. No extra sounds. No murmurs or rales. LUNGS: He has slightly decreased breath sounds at the bases bilaterally. ABDOMEN: Soft, obese, slight discomfort to deep palpation in the epigastric area. No guarding, no rigidity, no rebound tenderness. EXTREMITIES: No edema. There is amputation of the left great toe. NEUROLOGIC: No focal deficits. LABORATORY DATA: Pertinent positives as mentioned in the HPI. IMPRESSION: 1. Chest pain, need to rule out acute coronary syndrome. 2. Hypertensive urgency. 3. Bilateral pneumonia. 4. Recently diagnosed peroneal deep venous thrombosis. 5. Iron-deficiency anemia. 6. Dyslipidemia. 7. Recently diagnosed myopathy and rhabdomyolysis. 8. Obesity with BMI of 37. 9. Mild hypokalemia. PLAN: Continue telemetry monitoring. We will trend his troponins. EKG with no ST-T-wave abnormali ties. Likely his chest pain could be the result of severely elevated blood pressure and evolving pn eumonia. He will be continued with his home medications which includes beta lo, DILAN inhibitor, and aspirin. He will be continued with his Xarelto for his DVT. Will place a cardiology consultat formerly [facility] and obtain a 2-D echo. Given his history of iron-deficiency anemia and the fact that he is on X arelto for DVT, he probably does not need to be on aspirin, so in fact, I am going to go ahead and h old it for now until seen and evaluated by cardiology. He will be continued with insulin for his di abetes. We will also continue the rest of his home medication with adjustment as needed. Replace/c orrect electrolytes as needed. Will adjust antihypertensives for better blood pressure control. Further workup and management per clinical course. Dictated By: GLORIA BLANTON/SUNDEEP Conf#: [id number] DID#: [id number]
[2017-01-29] MEDS: MUPIROCIN 2% 22 GM OINT TOP SCH ×2 (08:15→13:52)
[2017-01-29] MEDS: INSULIN ASPART [NOVOLOG] 3 ML PEN SC SCH ×2 (08:20→11:49)
[2017-01-29] MEDS ORDERED: DOCUSATE SODIUM 100 MG CAP PO SCH (09:00)
[2017-01-29] MEDS ORDERED: FAMOTIDINE 20 MG TAB PO SCH (09:00)
[2017-01-29] MEDS ORDERED: POTASSIUM CHLORIDE (SR) 20 MEQ TAB PO SCH (09:00)
[2017-01-29] MEDS ORDERED: CHOLECALCIFEROL 1,000 UNIT TAB PO SCH (09:00)
[2017-01-29] MEDS ORDERED: LISINOPRIL 20 MG TAB PO SCH (09:00)
[2017-01-29] MEDS ORDERED: ASPIRIN (EC) 81 MG TAB PO SCH (09:00)
[2017-01-29] MEDS ORDERED: TAMSULOSIN (SR) 0.4 MG CAP PO SCH (09:00)
[2017-01-29 12:31] LABS: CREATINE KINASE 119 IU/L (23-200)
[2017-01-29 13:07] LABS: CK-MB 4.53 ng/ml (0.0-2.4); TROPONIN-I < 0.012 ng/ml (0.00-0.12)
[2017-01-29] MEDS ORDERED: LEVO500T72 PO (14:33)
--- NOTE | 2017-01-29 14:38 | DS ---
Date/Time of Note Date/Time of Note DATE: 01/29/17 TIME: 14:33 Discharge Summary Admission/Discharge Info Admit Date/Time Jan 28, 2017 at 23:48 Discharge Date/Time Final Diagnosis 1. Chest pain, atypical, resolved, follow up with cardiology 2. Hypertensive urgency. improved 3. Bilateral pneumonia. improving, on levaquin 4. Recently diagnosed peroneal deep venous thrombosis. on xarelto 5. Iron-deficiency anemia. follow up with PCP 6. Dyslipidemia. stable Patient Condition: Stable Hospital Course The patient is a 41-year-old male with a history of hypertension, diabetes, dyslipidemia, recently diagnosed left peroneal DVT, iron-deficiency anemia, and a recent vent-dependent respiratory failure who presented to the emergency department with chest pain that started a few hours ago. Chest pain is mainly left-sided, with radiation to his neck and upper back and was described as pressure-like. He also pointed in the epigastric area when describing his chest pain. He also reported associated shortness of breath and occasional cough. The patient was recently admitted for abdominal pain 10 [address] scan without any acute findings, and after a day of hospitalization, the patient was discharged in stable condition. Prior to his last hospitalization, he was also admitted here not long ago after he presented with cough, fever, and chest pain, and at that time he was diagnosed with community-acquired pneumonia. He also had an elevated troponin at that time which was thought to be secondary to sepsis. Unfortunately, during that hospitalization, he rapidly declined and was intubated for respiratory failure, and also he was diagnosed with left lower extremity DVT. He, at that time, developed severe myopathy in the lower extremity and was diagnosed with rhabdomyolysis. He had an extensive workup after he was seen in consultation with rheumatology because of a positive DAISY, but without any definitive diagnosis. The positive DAISY was thought to be also unclear significance, but he was treated with low-dose steroids with some improvement. He was discharged with home health for continued physical therapy. When he presented to the ER today, blood pressure was 208/109, heart rate 103, respiratory rate 24, temperature 98.3, oxygen saturation 94%. Laboratory value shows a hemoglobin of 9.1, potassium 3.4, bicarbonate 32, otherwise the rest of his labs are within acceptable range. His initial troponin is negative. Chest x-ray shows new patchy bilateral lower lung infiltrates suspicious for evolving pneumonia. The patient was given hydralazine, Zofran, and morphine when he was in the ER. For chest pain, he has negative troponin. Chest pain resolved. Chest X-ray with bilateral lower lobe infiltrates that likely the etiology of chest pain. Patien petar will follow up with cardiology outpatient. Blood pressure has been better controlled by resuming home antihypertensives. He will follow up with PCP tomorrow. CXR with bilateraly lower lobe patchy infiltrates indicate pneumon ia. That he is treated with levaquin. Home Meds Active Scripts Levofloxacin* (Levaquin*) 500 Mg Tablet, 500 MG PO DAILY for 7 Days, TAB Prov:MERARY SAHU MD 01/29/17 Hydrocodone/Acetaminophen ([place] 10-325 Tablet) 1 Each Tablet, 1 EACH PO QID, # 10 TAB Prov:ISABELLADOUGLAS 01/27/17 Ondansetron (Ondansetron Odt) 4 Mg Tab.rapdis, 4 MG PO Q6H Y for NAUSEA AND/OR VOMITING, #30 TAB Prov:TAJ MIRANDA MD 01/25/17 Hydrocodone/Acetaminophen ([place] 10-325 Tablet) 1 Each Tablet, 1 TAB PO Q6H Y for PAIN, #10 TAB Prov:TAJ MIRANDA MD 01/25/17 Insulin Glargine* (Lantus*) 100 Unit/Ml Soln, 25 UNIT SC DAILY@20 for 30 Days Prov:CLARITA VERMA S. 01/19/17 Docusate Sodium (Dok) 100 Mg Capsule, 100 MG PO BID, #60 CAP Prov:CLARITA VERMA S. 01/19/17 Sevelamer Carbonate* (Renvela*) 0.8 Gm Powd.pack, 1.6 GM PO WITH MEALS, #90 Prov:CLARITA VERMA S. 01/19/17 Amlodipine Besylate* (Amlodipine Besylate*) 5 Mg Tablet, 5 MG PO BID, #60 TAB Prov:CLARITA VERMA S. 01/19/17 Rivaroxaban* (Xarelto*) 20 Mg Tablet, 20 MG PO WITH DINNER for 30 Days, TAB Prov:CLARITA VERMA S. 01/19/17 Polyethylene Glycol* (Miralax*) 17 Gm Powd.pack, 17 GM PO DAILY for 30 Days Prov:CLARITA VERMA. 01/19/17 Furosemide* (Furosemide*) 40 Mg Tablet, 40 MG PO DAILY for 30 Days, TAB Prov:LEXII REED. 01/13/17 Famotidine* (Famotidine*) 20 Mg Tablet, 20 MG PO Q12 for 30 Days, TAB 2 Refills Prov:LEXII REED . 01/13/17 Tamsulosin Hcl* (Flomax*) 0.4 Mg Cap.er.24h, 0.4 MG PO BID for 30 Days, CAP 1 Refill Prov:LEXII REED 01/13/17 Cholecalciferol* (Vitamin D3*) 1,000 Unit Tablet, 1000 UNIT PO DAILY for 30 Days , TAB 2 Refills Prov:LEXII REED. 01/13/17 Lisinopril* (Lisinopril*) 40 Mg Tablet, 40 MG PO DAILY, #30 TAB 2 Refills Prov:LEXII REED . 01/13/17 Potassium Chloride* (Potassium Chloride*) 20 Meq Tablet.er, 20 MEQ PO DAILY for 30 Days, TAB.SA 2 Refills Prov:LEXII REED . 01/13/17 Carvedilol* (Carvedilol*) 25 Mg Tablet, 25 MG PO BID, #60 TAB 2 Refills Prov:LEXII REED. 01/13/17 Reported Medications Rivaroxaban* (Xarelto*) 15 Mg Tablet, 15 MG PO BID, TAB 01/29/17 Hydralazine Hcl* (Hydralazine Hcl*) 50 Mg Tab, 50 MG PO Q8, #90 TAB 01/18/17 Aspirin* (Aspirin* EC) 81 Mg Tablet.dr, 81 MG PO DAILY, TAB 12/15/16 Follow-up Plan follow up with PCP in one week Cardiology in 1-2 weeks Primary Care Provider [facility] Pending Labs Laboratory Tests Test 01/28/17 22:19 01/29/17 02:08 01/29/17 03:39 01/29/17 04:04 White Blood Count 6.210^3/ul (4.8-10.8) 5.710^3/ul (4.8-10.8) Red Blood Count 3.2610^6/ul (4.70-6.10) 2.8810^6/ul (4.70-6.10) Hemoglobin 9.1g/dl (14.0-18.0) 8.0g/dl (14.0-18.0) Hematocrit 27.6% (42.0-52.0) 24.6% (42.0-52.0) Mean Corpuscular Volume 84.7fl (82.0-101.0) 85.4fl (82.0-101.0) Mean Corpuscular Hemoglobin 27.9pg (29.0-33.0) 27.8pg (29.0-33.0) Mean Corpuscular Hemoglobin Concent 33.0g/dl (32.0-37.0) 32.5g/dl (32.0-37.0) Red Cell Distribution Width 13.9% (11.5-14.5) 14.0% (11.5-14.5) Platelet Count 01048^3/UL (140-415) 30951^3/UL (140-415) Mean Platelet Volume 10.1fl (7.4-10.4) 10.0fl (7.4-10.4) Neutrophils % 61.2% (39.0-77.0) 57.8% (39.0-77.0) Lymphocytes % 26.4% (15.0-51.0) 28.0% (15.0-51.0) Monocytes % 9.5% (0.0-11.0) 11.3% (0.0-11.0) Eosinophils % 1.9% (0.0-7.0) 2.1% (0.0-7.0) Basophils % 0.5% (0.0-2.0) 0.4% (0.0-2.0) Nucleated Red Blood Cells % 0.0/100WBC (0.0-0.0) 0.0/100WBC (0.0-0.0) Neutrophils # 3.810^3/ul (1.6-7.5) 3.310^3/ul (1.6-7.5) Lymphocytes # 1.610^3/ul (0.8-2.9) 1.610^3/ul (0.8-2.9) Monocytes # 0.610^3/ul (0.3-0.9) 0.610^3/ul (0.3-0.9) Eosinophils # 0.110^3/ul (0.0-0.5) 0.110^3/ul (0.0-0.5) Basophils # 0.010^3/ul (0.0-0.1) 0.010^3/ul (0.0-0.1) Nucleated Red Blood Cells # 0.010^3/ul (0.0-0.0) 0.010^3/ul (0.0-0.0) Prothrombin Time 18.5Sec (12.2-14.2) Prothrombin Time Ratio 1.4 INR International Normalized Ratio 1.53 Activated Partial Thromboplast Time 68.1Sec (25.0-35.0) Sodium Level 143mmol/L (135-144) 143mmol/L (135-144) Potassium Level 3.4mmol/L (3.5-5.1) 3.3mmol/L (3.5-5.1) Chloride Level 105mmol/L (97-110) 105mmol/L (97-110) Carbon Dioxide Level 32mmol/L (21-31) 31mmol/L (21-31) Anion Gap 9 (8-16) 10 (8-16) Blood Urea Nitrogen 12mg/dl (7-20) 12mg/dl (7-20) Creatinine 1.11mg/dl (0.61-1.24) 1.10mg/dl (0.61-1.24) Glucose Level 128mg/dl (70-220) 202mg/dl (70-220) Calcium Level 8.6mg/dl (8.4-10.2) 8.3mg/dl (8.4-10.2) Troponin I < 0.012ng/ml (0.00-0.12) 0.016ng/ml (0.00-0.12) Bedside Glucose 145mg/dL (70-220) 230mg/dL (70-220) Hemoglobin A1c 9.3% (0-5.9) Phosphorus Level 4.2mg/dl (2.5-4.9) Magnesium Level 1.6mg/dl (1.7-2.5) Total Bilirubin 1.2mg/dl (0.2-1.3) Direct Bilirubin 0.00mg/dl (0.00-0.20) Indirect Bilirubin 1.2mg/dl (0-1.1) Aspartate Amino Transf (AST/SGOT) 18IU/L (15-46) Alanine Aminotransferase (ALT/SGPT) 44IU/L (13-69) Alkaline Phosphatase 75IU/L (42-121) Creatine Kinase 115IU/L (23-200) Creatine Kinase Index 3.1 Creatinine Kinase MB (Mass) 3.56ng/ml (0.0-2.4) Total Protein 5.3g/dl (6.1-8.1) Albumin 3.1g/dl (3.3-4.9) Globulin 2.20g/dl (1.3-3.2) Albumin/Globulin Ratio 1.40 Triglycerides Level 178mg/dl (0-149) Cholesterol Level 122mg/dl (100-200) LDL Cholesterol, Calculated 66mg/dl HDL Cholesterol 20mg/dl (27-67) Cholesterol/HDL Ratio 6.1RATIO Thyroid Stimulating Hormone (TSH) 2.370MIU/L (0.465-4.680) Test 01/29/17 07:40 01/29/17 11:30 01/29/17 11:45 Bedside Glucose 141mg/dL (70-220) 107mg/dL (70-220) Creatine Kinase 119IU/L (23-200) Creatine Kinase Index 3.8 Creatinine Kinase MB (Mass) 4.53ng/ml (0.0-2.4) Troponin I < 0.012ng/ml (0.00-0.12) MERARY SAHU MD Jan 29, 2017 14:38
[2017-01-29] MEDS ORDERED: AMLO5TAB4 PO (15:37)
[2017-01-29] MEDS ORDERED: AMLODIPINE 5 MG TAB PO SCH (16:00)
[2017-01-29] MEDS ORDERED: RIVAROXABAN 20 MG TABLET PO SCH (18:05)
== END 2017-01-29 15:48 | disposition home or self-care (01) | DRG 313 ==
LOC: E/R 21:26 → MS4 23:48
PROVIDERS: ADMIT Internal Medicine; ATTEND Internal Medicine
DX: R07.89 Other chest pain (principal); J18.9 Pneumonia, unspecified organism; I82.492 Acute embolism and thrombosis of other specified deep vein of left lower extremity; G72.9 Myopathy, unspecified; I10 Essential (primary) hypertension; E78.5 Hyperlipidemia, unspecified; E11.9 Type 2 diabetes mellitus without complications; D50.9 Iron deficiency anemia, unspecified; Z87.891 Personal history of nicotine dependence; I16.0 Hypertensive urgency; E87.6 Hypokalemia; E66.9 Obesity, unspecified; Z68.37 Body mass index [BMI] 37.0-37.9, adult; Z79.01 Long term (current) use of anticoagulants
CPT/HCPCS: 36415; 71010; 80048; 80053; 80061; 82550; 82553; 82962; 83036; 83735; 84100; 84443; 84484; 85025; 85610; 85730; 87081; 93005; 96374; 96375; J0360; J1815; J1956; J2270; J2405; J3475

== ENCOUNTER 2017-02-01 04:05 | Emergency (ER) | payer OTHER ==
[~2017-02-01] VITALS: Ht 170.2 cm; Wt 102.5 kg
[~2017-02-01 04:05] MED LIST changes: +AMLO5TAB4 PO; +LEVO500T72 PO; +RIVA15TA PO
[2017-02-01 04:07] VITALS: Ht 170.2 cm; Wt 102.5 kg
[2017-02-01] MEDS ORDERED: OXYCODONE/ACETAMINOPHEN (10/325) TAB PO ONE (04:30)
--- NOTE | 2017-02-01 04:54 | ERD ---
ER Documentation Chief Complaint Date/Time DATE: 02/01/17 TIME: 04:52 Chief Complaint back pain 1 hr ago" while sleeping & felt"cracked" in his back"numb R leg HPI 41-year-old male presents to emergency department for complains of right lower back pain that started one hour prior to arrival. Patient describes the pain as sharp pain, 6/10 scale, radiates from the right back to the right lower leg, accompanied by numbness and tingling. Patient twisted in a different position, felt a crack in his back afterwards. Patient did not take any medications to help with symptoms. She denies any fever or chills. Patient denies any incontinence. ROS All systems reviewed and are negative except as per history of present illness. Medications Home Meds Active Scripts Amlodipine Besylate* (Norvasc*) 5 Mg Tablet, 5 MG PO DAILY for 30 Days, TAB Prov:MERARY SAHU MD 01/29/17 Levofloxacin* (Levaquin*) 500 Mg Tablet, 500 MG PO DAILY for 7 Days, TAB Prov:MERARY SAHU MD 01/29/17 Hydrocodone/Acetaminophen ([place] 10-325 Tablet) 1 Each Tablet, 1 EACH PO QID, # 10 TAB Prov:ISABELLA,DOUGLAS 01/27/17 Ondansetron (Ondansetron Odt) 4 Mg Tab.rapdis, 4 MG PO Q6H Y for NAUSEA AND/OR VOMITING, #30 TAB Prov:TAJ MIRANDA MD 01/25/17 Hydrocodone/Acetaminophen ([place] 10-325 Tablet) 1 Each Tablet, 1 TAB PO Q6H Y for PAIN, #10 TAB Prov:TAJ MIRANDA MD 01/25/17 Insulin Glargine* (Lantus*) 100 Unit/Ml Soln, 25 UNIT SC DAILY@20 for 30 Days Prov:CLARITA VERMA S. 01/19/17 Docusate Sodium (Dok) 100 Mg Capsule, 100 MG PO BID, #60 CAP Prov:CLARITA VERMA S. 01/19/17 Sevelamer Carbonate* (Renvela*) 0.8 Gm Powd.pack, 1.6 GM PO WITH MEALS, #90 Prov:CLARITA VERMA S. 01/19/17 Amlodipine Besylate* (Amlodipine Besylate*) 5 Mg Tablet, 5 MG PO BID, #60 TAB Prov:CLARTIA VERMA S. 01/19/17 Rivaroxaban* (Xarelto*) 20 Mg Tablet, 20 MG PO WITH DINNER for 30 Days, TAB Prov:CLARITA VERMA S. 01/19/17 Polyethylene Glycol* (Miralax*) 17 Gm Powd.pack, 17 GM PO DAILY for 30 Days Prov:CLARITA VERMA . 01/19/17 Furosemide* (Furosemide*) 40 Mg Tablet, 40 MG PO DAILY for 30 Days, [facility] 01/13/17 Famotidine* (Famotidine*) 20 Mg Tablet, 20 MG PO Q12 for 30 Days, TAB 2 [facility] 01/13/17 Tamsulosin Hcl* (Flomax*) 0.4 Mg Cap.er.24h, 0.4 MG PO BID for 30 Days, CAP 1 [facility] 01/13/17 Cholecalciferol* (Vitamin D3*) 1,000 Unit Tablet, 1000 UNIT PO DAILY for 30 Days , TAB 2 Refills Prov:LEXII REED . 01/13/17 Lisinopril* (Lisinopril*) 40 Mg Tablet, 40 MG PO DAILY, #30 TAB 2 [facility] 01/13/17 Potassium Chloride* (Potassium Chloride*) 20 Meq Tablet.er, 20 MEQ PO DAILY for 30 Days, TAB.SA 2 [facility] 01/13/17 Carvedilol* (Carvedilol*) 25 Mg Tablet, 25 MG PO BID, #60 TAB 2 Refills Prov:LEXII REED . 01/13/17 Reported Medications Rivaroxaban* (Xarelto*) 15 Mg Tablet, 15 MG PO BID, TAB 01/29/17 Hydralazine Hcl* (Hydralazine Hcl*) 50 Mg Tab, 50 MG PO Q8, #90 TAB 01/18/17 Aspirin* (Aspirin* EC) 81 Mg Tablet.dr, 81 MG PO DAILY, TAB 12/15/16 Allergies Allergies: Coded Allergies: ibuprofen (Verified Allergy, Mild, 01/27/17) PMhx/Soc History of Surgery: Yes (left great toe amputated 4 years ago) Anesthesia Reaction: No Hx Neurological Disorder: Yes (pt c/o constant headaches for past 3 years ) Hx Respiratory Disorders: No Hx Cardiac Disorders: Yes (HTN) Hx Psychiatric Problems: No Hx Miscellaneous Medical Probl: No Hx Alcohol Use: No Hx Substance Use: Yes (STOPPED 3 YEARS AGO) Hx Tobacco Use: Yes (1.5 years ago) Smoking Status: Former smoker FmHx Family History: No coronary disease, No diabetes, No other Physical Exam Vitals Vital Signs Date Time Temp Pulse Resp B/P Pulse Ox O2 Delivery O2 Flow Rate FiO2 02/01/17 04:07 97.8 81 20 177/90 100 Physical Exam GENERAL: The patient is well developed and appropriate for usual state of health, in no apparent distress. CHEST: Clear to auscultation bilaterally. There are no rales, wheezes or rhonchi. HEART: Regular rate and rhythm. No murmurs, clicks, rubs or gallops. No S3 or S4. ABDOMEN: Soft, nontender and nondistended. Good bowel sounds. No rebound or guarding. No gross peritonitis. No gross organomegaly or masses. No Davis sign or McBurney point tenderness. BACK: No midline or flank tenderness. EXTREMITIES: Equal pulses bilaterally. There is no peripheral clubbing, cyanosis or edema. No focal swelling or erythema. Full range of motion. Grossly neurovascularly intact. NEURO: Alert and oriented. Cranial nerves 2-12 intact. Motor strength in all 4 extremities with 5/5 strength. Sensation grossly intact. Normal speech and gait. SKIN: There is no apparent rash or petechia. The skin is warm and dry. HEMATOLOGIC AND LYMPHATIC: There is no evidence of excessive bruising or lymphedema. No gross cervical, axillary, or inguinal lymphadenopathy. Results 24 hrs Current Medications Medications (Trade) Dose Ordered Sig/Kuldeep Route PRN Reason Start Time Stop Time Status Last Admin Dose Admin Oxycodone/ Acetaminophen (Endocet (10/ 325)) 1 tab ONCE ONCE PO 02/01/17 04:30 02/01/17 04:31 DC 02/01/17 04:30 Morphine Sulfate (morphine) 8 mg ONCE ONCE IM 02/01/17 05:30 02/01/17 05:31 DC 02/01/17 05:41 Patient was given medication for pain here in emergency department, after treatment, patient verbalized feeling much better. Patient's pain is improved. PROCEDURE: CT L-Spine. CLINICAL INDICATION: Back pain TECHNIQUE: Section spiral CT images through the lumbar spine without contrast. Multiplanar reconstructions. .The CTDIvol is 34.51 mGy and the DLP is 1256.05 mGycm. One or more of the following dose reduction techniques were used: automated exposure control, adjustment of the mA and/or kV according to patient size, or use of iterative reconstruction technique. COMPARISON: CT from 01/18/2017 FINDINGS: Minimal L4-5 retrolisthesis is again seen. There are mild degenerative changes throughout the lumbar spine with small osteophytes and minimal endplate irregularities. Partial sacralization of L5 is again seen. Minimal sclerosis about the sacroiliac joints is unchanged. No fracture or new listhesis is seen. Aortic calcification is seen. The urinary bladder appears to be significantly distended and this was seen on the prior CT as well. T12-L1: No disk protrusion or extrusion. No significant canal or foraminal narrowing. L1-2: Minimal diffuse disk bulge. No significant canal or foraminal narrowing. L2-3: Minimal diffuse disk bulge. No significant canal or foraminal narrowing. L3-4: Small diffuse disk bulge with right paracentral disk protrusion resulting in slight narrowing of the right lateral recess and slight narrowing of the proximal right neural foramen. No significant left foraminal narrowing. No spinal stenosis. L4-5: Uncovering of the intervertebral disk and moderate diffuse disk bulge resulting in moderate bilateral foraminal narrowing. No paloma spinal stenosis. L5-S1: Slightly narrowed transitional disk. No disk protrusion or extrusion. No significant canal or foraminal narrowing. IMPRESSION: No acute fracture. Multilevel lumbar spondylosis with right paracentral disk protrusion and right foraminal narrowing L3-4 and diffuse disk bulge with bilateral foraminal narrowing at L4-5. MRI could be obtained for further evaluation. Persistent distension of the urinary bladder. RPTAT: HLBE Sherron Hans, Physician Date Time Electronically viewed and signed by Sherron Maxwell Physician on 02/01/2017 05 :53 LE/ CC: SOILA REEDER PARBOILER Procedures/MDM Medical Decision Making: Patient's pain is most likely consistent with a degenerative disc disease as noted in the CT scan, most likely also sciatica. There is no suspicion for neurovascular compromise. Patient has intact sensation and circulation of the affected extremity and distal extremities. No incontinence, no suspicion for cauda equina syndrome, no saddle anesthesia, no symptoms of any acute bacterial infection, no symptoms of any perirectal abscesses, pilonidal cyst.There is low suspicion for septic arthritis. Patient does not have any fever. No symptoms of any aortic dissection or aortic aneurysm. Radiology exam not indicated at this time. Disposition: Home. Patient is given prescription for Percocet for severe pain, gabapentin for sciatica Patient was advised to avoid heavy lifting , apply warm compresses on affected area. Patient was advised that if symptoms are worse, numbness, tingling, high fever, unable to move joint, worsening symptoms, to return to emergency department immediately. Otherwise, patient is advised to follow up with the primary care doctor in 5-7 days for reevaluation of symptoms. Departure Diagnosis: Primary Impression: Degenerative disc disease Spinal region: lumbosacral Qualified Code: M51.37 - Degeneration of intervertebral disc of lumbosacral region Additional Impression: Back pain Back pain location: low back pain Chronicity: acute Back pain laterality: bilateral Sciatica presence: with sciatica Sciatica laterality: sciatica of right side Qualified Code: M54.41 - Acute bilateral low back pain with right- sided sciatica Condition: Stable Patient Instructions: Back Pain W/ Sciatica, Degenerative Disk Disease SOILA REEDER NP Feb 01, 2017 04:54
[2017-02-01] MEDS ORDERED: morphine 10 MG INJ IM ONE (05:30)
--- NOTE | 2017-02-01 05:53 | RADRPT ---
PROCEDURE: CT L-Spine. CLINICAL INDICATION: Back pain TECHNIQUE: Section spiral CT images through the lumbar spine without contrast. Multiplanar recons tructions. .The CTDIvol is 34.51 mGy and the DLP is 1256.05 mGycm. One or more of the following do se reduction techniques were used: automated exposure control, adjustment of the mA and/or kV accord ing to patient size, or use of iterative reconstruction technique. COMPARISON: CT from 01/18/2017 FINDINGS: Minimal L4-5 retrolisthesis is again seen. There are mild degenerative changes throughout the lumba r spine with small osteophytes and minimal endplate irregularities. Partial sacralization of L5 is again seen. Minimal sclerosis about the sacroiliac joints is unchanged. No fracture or new listhes is is seen. Aortic calcification is seen. The urinary bladder appears to be significantly distende d and this was seen on the prior CT as well. T12-L1: No disk protrusion or extrusion. No significant canal or foraminal narrowing. L1-2: Minimal diffuse disk bulge. No significant canal or foraminal narrowing. L2-3: Minimal diffuse disk bulge. No significant canal or foraminal narrowing. L3-4: Small diffuse disk bulge with right paracentral disk protrusion resulting in slight narrowing of the right lateral recess and slight narrowing of the proximal right neural foramen. No significa nt left foraminal narrowing. No spinal stenosis. L4-5: Uncovering of the intervertebral disk and moderate diffuse disk bulge resulting in moderate bi lateral foraminal narrowing. No paloma spinal stenosis. L5-S1: Slightly narrowed transitional disk. No disk protrusion or extrusion. No significant canal or foraminal narrowing. IMPRESSION: No acute fracture. Multilevel lumbar spondylosis with right paracentral disk protrusion and right f oraminal narrowing L3-4 and diffuse disk bulge with bilateral foraminal narrowing at L4-5. MRI coul d be obtained for further evaluation. Persistent distension of the urinary bladder. RPTAT: HLBE Physician Gabriella Date Time Electronically viewed and signed by Sherron Maxwell Physician on 02/01/2017 05:53 LE/
[2017-02-01] MEDS ORDERED: OXYC-209 PO (05:59)
[2017-02-01] MEDS ORDERED: GABA300C16 PO (05:59)
[2017-02-01 06:04] VITALS: BP 187/93; PULSE 79; RESP 18; TEMP 97
== END 2017-02-01 06:04 | disposition home or self-care (01) ==
LOC: FTE 04:05
DX: M51.37 Other intervertebral disc degeneration, lumbosacral region (principal); M54.41 Lumbago with sciatica, right side; I10 Essential (primary) hypertension; Z87.891 Personal history of nicotine dependence; Z79.82 Long term (current) use of aspirin
CPT/HCPCS: 72131; 96372; J2270; Z7502; Z7610

== ENCOUNTER 2017-02-06 19:55 | Emergency (ER) | payer OTHER ==
[~2017-02-06] VITALS: Ht 172.7 cm; Wt 105.0 kg
[~2017-02-06 19:55] MED LIST changes: +GABA300C16 PO; +OXYC-209 PO
[2017-02-06 20:05] VITALS: Ht 172.7 cm; Wt 105.0 kg
[2017-02-06] MEDS ORDERED: hydrALAzine 20 MG INJ IV ONE (22:30)
[2017-02-06 22:37] LABS: ADD SCAN DIFF NO
[2017-02-06 22:41] LABS: BASOPHILS % 0.5 % (0.0-2.0); EOSINOPHILS # 0.3 10^3/ul (0.0-0.5); EOSINOPHILS % 4.9 % (0.0-7.0); HEMATOCRIT 27.2 % (42.0-52.0); HEMOGLOBIN 8.8 g/dl (14.0-18.0); LYMPHOCYTES # 1.9 10^3/ul (0.8-2.9); LYMPHOCYTES % 30.5 % (15.0-51.0); MEAN CORPUSCULAR HEMOGLOBIN 27.5 pg (29.0-33.0); MEAN CORPUSCULAR HGB CONC 32.4 g/dl (32.0-37.0); MONOCYTE # 0.6 10^3/ul (0.3-0.9); MONOCYTES % 10.4 % (0.0-11.0); NEUTROPHIL # 3.2 10^3/ul (1.6-7.5); NEUTROPHILS % 52.9 % (39.0-77.0); PLATELET COUNT 285 10^3/UL (140-415); RED CELL DISTRIBUTION WIDTH 14.3 % (11.5-14.5); WHITE BLOOD COUNT 6.1 10^3/ul (4.8-10.8)
--- NOTE | 2017-02-06 22:50 | RADRPT ---
AMENDMENT: 02/06/2017 10:49:30 PM Jean Carlos Bateman MD CLINICAL INDICATION: 41-year-old MALE with chest/abdominal pain. PROCEDURE: CHEST - 1 VIEW CLINICAL INDICATION: 41-year-old female with chest/abdominal pain. TECHNIQUE: A single frontal AP upright portable view of the chest was performed. The images were reviewed on a PACS workstation. COMPARISON: Chest x-ray January 28, 2017. FINDINGS: The cardiomediastinal silhouette is within normal limits. There is a shallow inspiration. There is minimal bibasilar subsegmental atelectasis. There is no evidence for an infiltrate. There is no e vidence for congestive heart failure. There is no evidence for pneumothorax. The osseous structures are intact. IMPRESSION: Shallow inspiration with minimal bibasilar subsegmental atelectasis. .Jean Carlos Bateman MD, Date Time Electronically viewed and signed by .Jean Carlos Bateman MD, on 02/06/2017 22:52 .M/
--- NOTE | 2017-02-06 22:51 | RADRPT ---
PROCEDURE: ABDOMINAL - 2 VIEWS CLINICAL INDICATION: 41-year-old male with abdominal pain. TECHNIQUE: AP supine views of the abdomen were obtained. The images reviewed on a PACS workstatio n. COMPARISON: Abdominal radiograph December 24, 2016; CT abdomen/pelvis January 18, 2017. FINDINGS: The lung bases are unremarkable. There is moderate retained stool throughout the colon without helen s bowel obstruction. Calcifications of the vas deferens are noted bilaterally. There are no abnorma l calcifications overlying the urinary tracts. The osseous structures are unremarkable. IMPRESSION: 1. Moderate retained stool without gross bowel obstruction. 2. Vas deferens calcifications. .Jean Carlos Bateman MD, MD Date Time Electronically viewed and signed by .Jean Carlos Bateman MD, on 02/06/2017 22:51 .Sarah/
[2017-02-06 23:07] LABS: ALBUMIN 3.8 g/dl (3.3-4.9); ALBUMIN/GLOBULIN RATIO 1.52; BILIRUBIN,INDIRECT 0.8 mg/dl (0-1.1); BILIRUBIN,TOTAL 0.8 mg/dl (0.2-1.3); CALCIUM 9.2 mg/dl (8.4-10.2); CREATININE 1.13 mg/dl (0.61-1.24); POTASSIUM 3.9 mmol/L (3.5-5.1); TOTAL PROTEIN 6.3 g/dl (6.1-8.1)
[2017-02-06 23:16] LABS: TROPONIN-I 0.014 ng/ml (0.00-0.12)
[2017-02-06] MEDS ORDERED: morphine 4 MG/ML VIAL IV ONE (23:30)
[2017-02-06] MEDS ORDERED: ONDANSETRON 4 MG INJ IV ONE (23:30)
[2017-02-06 23:55] LABS: URINE BLOOD (Dip) POC Trace-lysed (NEGATIVE)
--- NOTE | 2017-02-07 00:07 | ERD ---
ER Documentation Chief Complaint Date/Time DATE: 02/07/17 TIME: 00:06 Chief Complaint constipation x 3 days, taking norco for chronic pain, swelling both legs HPI This is a 41-year-old male constipated for 3 days. Take Maysel for chronic pain. Says he has not had a bowel movement for 2-3 days. No nausea no vomiting. No fevers no chills. No other current issues. ROS All systems reviewed and are negative except as per history of present illness. Medications Home Meds Active Scripts Oxycodone HCl/Acetaminophen (Percocet 10-325 mg Tablet) 1 Each Tablet, 1 EACH PO Q6 for SEVERE PAIN LEVEL 7-10, #20 TAB Prov:SOILA REEDER NP 02/01/17 Gabapentin* (Gabapentin*) 300 Mg Capsule, 300 MG PO BID, #60 CAP Prov:SOILA REEDER NP 02/01/17 Amlodipine Besylate* (Norvasc*) 5 Mg Tablet, 5 MG PO DAILY for 30 Days, TAB Prov:MERARY SAHU MD 01/29/17 Levofloxacin* (Levaquin*) 500 Mg Tablet, 500 MG PO DAILY for 7 Days, TAB Prov:MERARY SAHU MD 01/29/17 Hydrocodone/Acetaminophen ([place] 10-325 Tablet) 1 Each Tablet, 1 EACH PO QID, # 10 TAB Prov:ISABELLADOUGLAS 01/27/17 Ondansetron (Ondansetron Odt) 4 Mg Tab.rapdis, 4 MG PO Q6H Y for NAUSEA AND/OR VOMITING, #30 TAB Prov:TAJ MIRANDA MD 01/25/17 Hydrocodone/Acetaminophen ([place] 10-325 Tablet) 1 Each Tablet, 1 TAB PO Q6H Y for PAIN, #10 TAB Prov:TAJ MIRANDA MD 01/25/17 Insulin Glargine* (Lantus*) 100 Unit/Ml Soln, 25 UNIT SC DAILY@20 for 30 Days Prov:CLARITA VERMA S. 01/19/17 Docusate Sodium (Dok) 100 Mg Capsule, 100 MG PO BID, #60 CAP Prov:CLARITA VERMA S. 01/19/17 Sevelamer Carbonate* (Renvela*) 0.8 Gm Powd.pack, 1.6 GM PO WITH MEALS, #90 Prov:CLARITA VERMA S. 01/19/17 Amlodipine Besylate* (Amlodipine Besylate*) 5 Mg Tablet, 5 MG PO BID, #60 TAB Prov:CLARITA VERMA . 01/19/17 Rivaroxaban* (Xarelto*) 20 Mg Tablet, 20 MG PO WITH DINNER for 30 Days, TAB Prov:CLARITA VERMA . 01/19/17 Polyethylene Glycol* (Miralax*) 17 Gm Powd.pack, 17 GM PO DAILY for 30 Days Prov:CLARITA VERMA . 01/19/17 Furosemide* (Furosemide*) 40 Mg Tablet, 40 MG PO DAILY for 30 Days, TAB [facility] [place] . 01/13/17 Famotidine* (Famotidine*) 20 Mg Tablet, 20 MG PO Q12 for 30 Days, TAB 2 Refills Prov:[facility] [place] . 01/13/17 Tamsulosin Hcl* (Flomax*) 0.4 Mg Cap.er.24h, 0.4 MG PO BID for 30 Days, CAP 1 Refill Prov:[facility] [place] 01/13/17 Cholecalciferol* (Vitamin D3*) 1,000 Unit Tablet, 1000 UNIT PO DAILY for 30 Days , TAB 2 Refills Prov:[facility] [place] . 01/13/17 Lisinopril* (Lisinopril*) 40 Mg Tablet, 40 MG PO DAILY, #30 TAB 2 [facility] 01/13/17 Potassium Chloride* (Potassium Chloride*) 20 Meq Tablet.er, 20 MEQ PO DAILY for 30 Days, TAB.SA 2 Refills Prov:[facility] [place] . 01/13/17 Carvedilol* (Carvedilol*) 25 Mg Tablet, 25 MG PO BID, #60 TAB 2 Refills Prov:[facility] [place] . 01/13/17 Reported Medications Rivaroxaban* (Xarelto*) 15 Mg Tablet, 15 MG PO BID, TAB 01/29/17 Hydralazine Hcl* (Hydralazine Hcl*) 50 Mg Tab, 50 MG PO Q8, #90 TAB 01/18/17 Aspirin* (Aspirin* EC) 81 Mg Tablet.dr, 81 MG PO DAILY, TAB 12/15/16 Allergies Allergies: Coded Allergies: ibuprofen (Verified Allergy, Mild, 01/27/17) PMhx/Soc History of Surgery: Yes (left great toe amputation) Anesthesia Reaction: No Hx Neurological Disorder: Yes (pt c/o constant headaches ) Hx Respiratory Disorders: No Hx Cardiac Disorders: Yes (HTN) Hx Psychiatric Problems: No Hx Miscellaneous Medical Probl: No Hx Alcohol Use: No Hx Substance Use: Yes (STOPPED 2013) Hx Tobacco Use: Yes (2014) Physical Exam Vitals Vital Signs Date Time Temp Pulse Resp B/P Pulse Ox O2 Delivery O2 Flow Rate FiO2 02/06/17 22:20 83 18 203/100 95 Room Air 02/06/17 20:05 99.3 90 20 225/110 97 Physical Exam Const: [] Head: Atraumatic Eyes: Normal Conjunctiva ENT: Normal External Ears, Nose and Mouth. Neck: Full range of motion..~ No meningismus. Resp: Clear to auscultation bilaterally Cardio: Regular rate and rhythm, no murmurs Abd: Soft, non tender, non distended. Normal bowel sounds Skin: No petechiae or rashes Back: No midline or flank tenderness Ext: No cyanosis, or edema Neur: Awake and alert Psych: Normal Mood and Affect Result Diagram: 02/06/17220902/06/172209 Results 24 hrs Laboratory Tests Test 02/06/17 22:10 02/06/17 23:58 White Blood Count 6.110^3/ul Red Blood Count 3.2010^6/ul Hemoglobin 8.8g/dl Hematocrit 27.2% Mean Corpuscular Volume 85.0fl Mean Corpuscular Hemoglobin 27.5pg Mean Corpuscular Hemoglobin Concent 32.4g/dl Red Cell Distribution Width 14.3% Platelet Count 75688^3/UL Mean Platelet Volume 11.0fl Neutrophils % 52.9% Lymphocytes % 30.5% Monocytes % 10.4% Eosinophils % 4.9% Basophils % 0.5% Nucleated Red Blood Cells % 0.0/100WBC Neutrophils # 3.210^3/ul Lymphocytes # 1.910^3/ul Monocytes # 0.610^3/ul Eosinophils # 0.310^3/ul Basophils # 0.010^3/ul Nucleated Red Blood Cells # 0.010^3/ul Sodium Level 144mmol/L Potassium Level 3.9mmol/L Chloride Level 106mmol/L Carbon Dioxide Level 29mmol/L Anion Gap 13 Blood Urea Nitrogen 17mg/dl Creatinine 1.13mg/dl Glucose Level 123mg/dl Calcium Level 9.2mg/dl Total Bilirubin 0.8mg/dl Direct Bilirubin 0.00mg/dl Indirect Bilirubin 0.8mg/dl Aspartate Amino Transf (AST/SGOT) 18IU/L Alanine Aminotransferase (ALT/SGPT) 26IU/L Alkaline Phosphatase 80IU/L Troponin I 0.014ng/ml Total Protein 6.3g/dl Albumin 3.8g/dl Globulin 2.50g/dl Albumin/Globulin Ratio 1.52 Lipase 32U/L Bedside Urine pH (LAB) 6.0 Bedside Urine Protein (LAB) 3+ Bedside Urine Glucose (UA) 0.1% Bedside Urine Ketones (LAB) Negative Bedside Urine Blood Trace-lysed Bedside Urine Nitrite (LAB) Negative Bedside Urine Leukocyte Esterase (L Negative Current Medications Medications (Trade) Dose Ordered Sig/Kuldeep Route PRN Reason Start Time Stop Time Status Last Admin Dose Admin Hydralazine HCl (Apresoline) 20 mg ONCE ONCE IV 02/06/17 22:30 02/06/17 22:31 DC 02/06/17 22:24 Morphine Sulfate (morphine) 4 mg ONCE ONCE IV 02/06/17 23:30 02/06/17 23:31 DC 02/06/17 23:35 Ondansetron HCl (Zofran Inj) 4 mg ONCE ONCE IV 02/06/17 23:30 02/06/17 23:31 DC 02/06/17 23:35 Procedures/MDM EKG: Rate/Rhythm: [Normal Sinus Rhythm] QRS, ST, T-waves: [No changes consistent w/ acute ischemia] Impression: [No evidence of ischemia or arrhythmia] Chest X-ray 1V Interpreted by me: Soft Tissue: No acute abnormalities Bones: No acute abnormalities Mediastinum/Cardiac Silhouette/Lungs: [No acute abnormalities] X-ray Abdomen 1V Interpreted by me: Free Air: [None] Bowel Gas: Constipation pattern Soft Tissue: [Normal] Medical decision-makin male with chronic constipation. Patient be discharged home on laxatives and stool softeners. Follow-up with PCP. Return for worsening symptoms. Departure Diagnosis: Primary Impression: Constipation Constipation type: drug induced constipation Qualified Code: K59.03 - Drug- induced constipation Condition: Stable GLORIA GUADARRAMA Feb 07, 2017 00:07
[2017-02-07] MEDS ORDERED: SENN-53 PO (00:10)
[2017-02-07] MEDS ORDERED: HYDR-902 PO (00:10)
[2017-02-07] MEDS ORDERED: MAGN296S40 PO (00:10)
[2017-02-07 00:35] VITALS: BP 134/76; PULSE 78; RESP 20
[2017-02-07 00:40] LABS: ADD UMIC YES; URINE BILIRUBIN (Dip) NEGATIVE (NEGATIVE); URINE BLOOD (Dip) TRACE (NEGATIVE); URINE COLOR LT. YELLOW (YELLOW); URINE KETONES (Dip) NEGATIVE (NEGATIVE); URINE LEUKOCYTE ESTERASE (Dip) NEGATIVE (NEGATIVE); URINE NITRITE (Dip) NEGATIVE (NEGATIVE); URINE UROBILINOGEN (Dip) 0.2 E.U./dL (0.1-1.0)
[2017-02-07 00:59] LABS: URINE TOTAL PROTEIN (Dip) 4+ (NEGATIVE)
[2017-02-07 01:36] LABS: MUCUS,URINE FEW
== END 2017-02-07 00:40 | disposition home or self-care (01) ==
LOC: E/R 19:55
DX: K59.03 Drug induced constipation (principal); I10 Essential (primary) hypertension; E11.9 Type 2 diabetes mellitus without complications; Z79.82 Long term (current) use of aspirin; Z79.4 Long term (current) use of insulin; Z87.891 Personal history of nicotine dependence
CPT/HCPCS: 36415; 71010; 74000; 80053; 81001; 81003; 83690; 84484; 85025; 93005; 96374; 96375; J0360; J2270; J2405; Z7502

== ENCOUNTER 2017-02-07 15:35 | Emergency (ER) | payer OTHER ==
[~2017-02-07] VITALS: Ht 170.2 cm; Wt 105.0 kg
[~2017-02-07 15:35] MED LIST changes: +MAGN296S40 PO; +SENN-53 PO
[2017-02-07 15:39] VITALS: Ht 170.2 cm; Wt 105.0 kg
[2017-02-07] MEDS ORDERED: SOD CHLORIDE 0.9% 1,000 ML IV ONE (17:30)
--- NOTE | 2017-02-07 17:30 | ERD ---
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 Patient is pale, diaphoretic, reports constipation 4 days. Patient was seen yesterday diagnosed with constipated discharge home after full evaluation including labs and flatplate of abdomen negative for obstruction. Patient has taken medication prescribed, Senokot. Mag citrate, and MiraLAX without relief of symptoms. Patient reports rectal pain. States that he takes [place] 10 mg every 8 hours routinely related to chronic back pain. Patient is in a wheelchair reports difficulty ambulating after 1 month stay in hospital for treatment of pneumonia. Currently is in physical therapy. Patient reports that he is a diabetic has not eaten for 2 days, related to abdominal pain. Decreased appetite. Reports able to tolerate liquids, and normal urine output. Chart review from yesterday shows hypertension 203/100 upon discharge. Hemoglobin, 8.8, hematocrit 27.2. Chest x-ray without evidence of cardiomyopathy or infiltrate. Flat plate of abdomen shows nonobstructive gas pattern. Patient instructed to follow up with primary care physician or return to emergency department for worsening of symptoms. Patient reports he feels worse today than he did yesterday. ROS All systems reviewed and are negative except as per history of present illness. Medications Home Meds Active Scripts Sennosides* (Senna Lax*) 8.6 Mg Tablet, 1 TAB PO Q12H Y for CONSTIPATION, #20 TAB Prov:GLORIA GUADARRAMA 02/07/17 Magnesium Citrate* (Magnesium Citrate*) 296 Ml Solution, 296 ML PO ONCE, #1 BOTTLE Prov:GLORAI GUADARRAMA 02/07/17 Hydrocodone/Acetaminophen ([place] 10-325 Tablet) 1 Each Tablet, 1 TAB PO Q6H Y for PAIN, #7 TAB Prov:GLORIA GUADARRAMA 02/07/17 Oxycodone HCl/Acetaminophen (Percocet 10-325 mg Tablet) 1 Each Tablet, 1 EACH PO Q6 for SEVERE PAIN LEVEL 7-10, #20 TAB Prov:SOILA REEDER NP 02/01/17 Gabapentin* (Gabapentin*) 300 Mg Capsule, 300 MG PO BID, #60 CAP Prov:SOILA REEDER NP 02/01/17 Amlodipine Besylate* (Norvasc*) 5 Mg Tablet, 5 MG PO DAILY for 30 Days, TAB Prov:MERARY SAHU MD 01/29/17 Levofloxacin* (Levaquin*) 500 Mg Tablet, 500 MG PO DAILY for 7 Days, TAB Prov:MERARY SAHU MD 01/29/17 Hydrocodone/Acetaminophen ([place] 10-325 Tablet) 1 Each Tablet, 1 EACH PO QID, # 10 TAB Prov:ISABELLADOUGLAS 01/27/17 Ondansetron (Ondansetron Odt) 4 Mg Tab.rapdis, 4 MG PO Q6H Y for NAUSEA AND/OR VOMITING, #30 TAB Prov:TAJ MIRANDA MD 01/25/17 Hydrocodone/Acetaminophen ([place] 10-325 Tablet) 1 Each Tablet, 1 TAB PO Q6H Y for PAIN, #10 TAB Prov:TAJ MIRANDA MD 01/25/17 Insulin Glargine* (Lantus*) 100 Unit/Ml Soln, 25 UNIT SC DAILY@20 for 30 Days Prov:CLARITA VERMA S. 01/19/17 Docusate Sodium (Dok) 100 Mg Capsule, 100 MG PO BID, #60 CAP Prov:CLARITA VERMA S. 01/19/17 Sevelamer Carbonate* (Renvela*) 0.8 Gm Powd.pack, 1.6 GM PO WITH MEALS, #90 Prov:CLARITA VERMA S. 01/19/17 Amlodipine Besylate* (Amlodipine Besylate*) 5 Mg Tablet, 5 MG PO BID, #60 TAB Prov:CLARITA VERMA S. 01/19/17 Rivaroxaban* (Xarelto*) 20 Mg Tablet, 20 MG PO WITH DINNER for 30 Days, TAB Prov:CLARITA VERMA S. 01/19/17 Polyethylene Glycol* (Miralax*) 17 Gm Powd.pack, 17 GM PO DAILY for 30 Days Prov:CLARITA VERMA S. 01/19/17 Furosemide* (Furosemide*) 40 Mg Tablet, 40 MG PO DAILY for 30 Days, TAB Prov:LEXII REED 01/13/17 Famotidine* (Famotidine*) 20 Mg Tablet, 20 MG PO Q12 for 30 Days, TAB 2 Refills Prov:LEXII REED. 01/13/17 Tamsulosin Hcl* (Flomax*) 0.4 Mg Cap.er.24h, 0.4 MG PO BID for 30 Days, CAP 1 Refill Prov:LEXII REED . 01/13/17 Cholecalciferol* (Vitamin D3*) 1,000 Unit Tablet, 1000 UNIT PO DAILY for 30 Days , TAB 2 Refills Prov:LEXII REED . 01/13/17 Lisinopril* (Lisinopril*) 40 Mg Tablet, 40 MG PO DAILY, #30 TAB 2 Refills Prov:G[facility]ED[facility] CENTERBoaz . 01/13/17 Potassium Chloride* (Potassium Chloride*) 20 Meq Tablet.er, 20 MEQ PO DAILY for 30 Days, TAB.SA 2 Refills Prov:LEXII REED . 01/13/17 Carvedilol* (Carvedilol*) 25 Mg Tablet, 25 MG PO BID, #60 TAB 2 Refills Prov:LEXII REED . 01/13/17 Reported Medications Rivaroxaban* (Xarelto*) 15 Mg Tablet, 15 MG PO BID, TAB 01/29/17 Hydralazine Hcl* (Hydralazine Hcl*) 50 Mg Tab, 50 MG PO Q8, #90 TAB 01/18/17 Aspirin* (Aspirin* EC) 81 Mg Tablet.dr, 81 MG PO DAILY, TAB 12/15/16 Allergies Allergies: Coded Allergies: ibuprofen (Verified Allergy, Mild, 01/27/17) PMhx/Soc History of Surgery: Yes (left great toe amputation) Anesthesia Reaction: No Hx Neurological Disorder: Yes (pt c/o constant headaches ) Hx Respiratory Disorders: No Hx Cardiac Disorders: Yes (HTN) Hx Psychiatric Problems: No Hx Miscellaneous Medical Probl: No Hx Alcohol Use: No Hx Substance Use: Yes (STOPPED 2013) Hx Tobacco Use: Yes (2014) Physical Exam Vitals Vital Signs Date Time Temp Pulse Resp B/P Pulse Ox O2 Delivery O2 Flow Rate FiO2 02/07/17 22:13 78 18 171/86 Room Air 02/07/17 16:53 185/90 02/07/17 15:39 100.1 96 18 217/95 96 Physical Exam Const: Ill-appearing, pale, diaphoretic with fine petechial rash on hands and face. No acute distress Head: Atraumatic Eyes: Normal Conjunctiva, PERRLA, EOMI ENT: Normal External Ears, Nose and Mouth, mucous membranes moist. Neck: Resp: Chest rises and falls symmetrically, no respiratory distress Cardio: Regular rate and rhythm, no murmurs Abd: Abdomen is firm, lower quadrant tenderness, no CVA tenderness Rectal exam: Sphincter without lesion, external hemorrhoid, or fissure. Stool for occult blood negative. Patient has large amount of soft stool in rectum fecal in rectum, Skin: petechiae rash on face and arms Back: Paraspinal tenderness, no change from baseline Ext: Neur: Awake and alert Psych: Normal Mood and Affect Result Diagram: 02/07/17 1734 Results 24 hrs Laboratory Tests Test 02/07/17 17:31 02/07/17 17:34 02/07/17 20:10 Bedside Glucose 103mg/dL White Blood Count 5.710^3/ul Red Blood Count 3.0410^6/ul Hemoglobin 8.2g/dl Hematocrit 26.1% Mean Corpuscular Volume 85.9fl Mean Corpuscular Hemoglobin 27.0pg Mean Corpuscular Hemoglobin Concent 31.4g/dl Red Cell Distribution Width 14.5% Platelet Count 97371^3/UL Mean Platelet Volume 10.9fl Neutrophils % 59.1% Lymphocytes % 26.1% Monocytes % 9.8% Eosinophils % 4.0% Basophils % 0.3% Nucleated Red Blood Cells % 0.0/100WBC Neutrophils # 3.410^3/ul Lymphocytes # 1.510^3/ul Monocytes # 0.610^3/ul Eosinophils # 0.210^3/ul Basophils # 0.010^3/ul Nucleated Red Blood Cells # 0.010^3/ul Stool Occult Blood NEGATIVE Current Medications Medications (Trade) Dose Ordered Sig/Kuldeep Route PRN Reason Start Time Stop Time Status Last Admin Dose Admin Sodium Chloride (NS) 1,000 ml @ 1,000 mls/hr Q1H ONCE IV 02/07/17 17:30 02/07/17 18:29 DC 02/07/17 17:37 Hydromorphone HCl (Dilaudid) 1 mg ONCE STAT IV 02/07/17 19:02 02/07/17 19:05 DC 02/07/17 19:37 Ondansetron HCl (Zofran Inj) 4 mg ONCE STAT IV 02/07/17 19:02 02/07/17 19:05 DC 02/07/17 19:37 Lactulose (Enulose) 30 gm ONCE ONCE PO 02/07/17 19:30 02/07/17 19:31 DC 02/07/17 19:37 Sodium Biphosphate/ Sodium Phosphate (Fleet Enema) 133 ml ONCE ONCE NH 02/07/17 21:00 02/07/17 21:01 DC 02/07/17 20:53 Hydromorphone HCl (Dilaudid) 1 mg ONCE STAT IV 02/07/17 21:33 02/07/17 21:34 DC 02/07/17 21:38 Interpretation text CBC shows no evidence of hemorrhage or infection positive for anemia Procedures/MDM PROCEDURE: CT abdomen and pelvis without intravenous contrast. CLINICAL INDICATION: Abdominal pain. Constipation. TECHNIQUE: CT of the abdomen/pelvis was performed utilizing axial images with reconstructions in sagittal and coronal planes. The administered radiation dose is CTDI 22.26 mGy, DLP 1040 27.58 mGy-cm. COMPARISON: Noncontrast CT of the abdomen/pelvis from January 18, 2017. FINDINGS: Lung bases: There are increased mild bilateral pleural effusions with associated atelectasis. The heart is normal size. There is a stable minimal pericardial effusion. CT ABDOMEN: Evaluation of the abdominal viscera is limited without intravenous contrast. Gastrointestinal tract: There is no bowel obstruction.The appendix is normal size without inflammatory changes.No abnormal colonic wall thickening is identified.There is no pneumoperitoneum. There is moderate stool within the rectum. There is mild presacral edema which may be reactive. Liver: The liver is normal in size.There is no intrahepatic ductal dilatation. Gallbladder: The gallbladder is grossly unremarkable. Pancreas: The pancreas is grossly unremarkable. Spleen: The spleen is normal in size. Kidneys: The kidneys are normal in size and contour.No renal calculi identified.There is no evidence of hydronephrosis. There is a too small to characterize left renal hypodensity. Adrenal glands: The bilateral adrenal glands are unremarkable. Retroperitoneum: There is no retroperitoneal adenopathy.The aorta is normal in caliber. CT PELVIS: Pelvic organs: The prostate is normal in size. Bladder: The bladder is distended but otherwise unremarkable. There is no pelvic free fluid.No pelvic adenopathy is identified. Osseous structures: No destructive lytic or blastic osseous lesion is identified. There are bilateral proximal thigh vascular calcifications greater than expected for age. There is mild bilateral subcutaneous thigh edema. I Electronically viewed and signed by .Jarrett Hassan MD, on 02/07/2017 18:48 This 41-year-old male patient presented to emergency department for lower abdominal pain, constipation. Patient was seen and treated yesterday for abdominal pain and nausea with morphine, Zofran, was discharged home hypertensive 203/100. Patient received prescription for Senokot, magnesium citrate, and MiraLAX which he has used. He was told to return to emergency department if symptoms worsen. Patient is here today reports symptoms are worse , he is pale, diaphoretic, complaining of rectal pain denies hemorrhoids. Patient moaning in pain. Requesting narcotics. Cures shows 02/01/2017 patient receives [place] 10 mg count of 20, 01/25/2017 received [place] 10 mg count of 10, patient has empty bottles with him today. Reports history of pneumonia with prolonged hospitalization now having difficulty ambulating in a wheelchair. Patient reports chronic back pain. Patient receives 1 mg Dilaudid, 4 mg of Zofran and 30 mg of lactulose. CAT scan documents 1. Stable moderate stool within the rectum with mild presacral edema suggesting reactive changes. 2. No appendicitis or bowel obstruction. 3. Increased mild bilateral pleural effusions. 4. Bilateral proximal thigh vascular calcifications greater than expected for age. 5. Stable mild bilateral subcutaneous edema. 6. Too small to characterize left renal hypodensity. 7. Stable minimal pericardial effusion. Fleet enema provided with unsuccessful passage of stool, manual disimpaction by myself in usual fashion side-lying, patient has a bedside commode in emergency room where he is able to successfully pass stool. I feel the patient is stable for discharge at this time with increased fiber, activity, and fluid. Return to emergency department for worsening of abdominal pain. Follow-up with primary physician. I have discussed results, examination findings, the treatment plan with the patient and family present prior to discharge. Indications for emergent reevaluation, side effects of medication were also discussed. All questions were answered. Patient verbalizes understanding and agrees with plan of care. Case discussed with supervising physician Odalys Bell Diagnosis: Primary Impression: Constipation Constipation type: drug induced constipation Qualified Code: K59.03 - Drug- induced constipation Condition: Good Patient Instructions: Constipation (Adult) Referrals: [facility] Comments Thank you for for coming to [facility] for your care today. Please ask your nurse or provider if you have questions about your care today and do not leave until all your questions have been answered. Please use any medications given as directed and follow-up with your doctor (or the doctor you were referred to) in the next 2-3 days. If you do not have a primary care doctor you may follow up at the [facility] (listed below). You may also use motrin and tylenol as needed for fever and/or pain unless instructed otherwise by your provider or nurse. Indications for more urgent follow-up have been discussed, but you may return to the Emergency Department at ANY time for any worrisome or worsening symptoms. If you have abdominal pain, please know that no test or exam you received is perfect and you should follow up within 8 hours for continued pain. If you had any imaging studies today, such as an X-Ray or CT Scan, these studies will be reviewed later by a radiologist. You will be called if there are important findings that were not identified today, so make sure the contact information you provided at registration is correct. If you received any narcotic pain control medicine today, such as Vicodin, Morphine or Dilaudid, your coordination and judgment may be affected for a number of hours. Please do not drive or operate heavy machinery, and you may want someone to assist you at home. If you were given a prescription for narcotic medication, be aware that it is very addictive- use sparingly and only if necessary. DOUGLAS MASON Feb 07, 2017 17:29 DOUGLAS MASON Feb 07, 2017 17:29
[2017-02-07 17:45] LABS: ADD SCAN DIFF NO
[2017-02-07 17:47] LABS: BASOPHILS % 0.3 % (0.0-2.0); EOSINOPHILS # 0.2 10^3/ul (0.0-0.5); HEMATOCRIT 26.1 % (42.0-52.0); HEMOGLOBIN 8.2 g/dl (14.0-18.0); LYMPHOCYTES # 1.5 10^3/ul (0.8-2.9); LYMPHOCYTES % 26.1 % (15.0-51.0); MEAN CORPUSCULAR HGB CONC 31.4 g/dl (32.0-37.0); MEAN CORPUSCULAR VOLUME 85.9 fl (82.0-101.0); MEAN PLATELET VOLUME 10.9 fl (7.4-10.4); MONOCYTE # 0.6 10^3/ul (0.3-0.9); MONOCYTES % 9.8 % (0.0-11.0); NEUTROPHIL # 3.4 10^3/ul (1.6-7.5); NEUTROPHILS % 59.1 % (39.0-77.0); PLATELET COUNT 250 10^3/UL (140-415); RED BLOOD COUNT 3.04 10^6/ul (4.70-6.10); RED CELL DISTRIBUTION WIDTH 14.5 % (11.5-14.5); WHITE BLOOD COUNT 5.7 10^3/ul (4.8-10.8)
--- NOTE | 2017-02-07 18:48 | RADRPT ---
PROCEDURE: CT abdomen and pelvis without intravenous contrast. CLINICAL INDICATION: Abdominal pain. Constipation. TECHNIQUE: CT of the abdomen/pelvis was performed utilizing axial images with reconstructions in s agittal and coronal planes. The administered radiation dose is CTDI 22.26 mGy, DLP 1040 27.58 mGy-cm . COMPARISON: Noncontrast CT of the abdomen/pelvis from January 18, 2017. FINDINGS: Lung bases: There are increased mild bilateral pleural effusions with associated atelectasis. The h eart is normal size. There is a stable minimal pericardial effusion. CT ABDOMEN: Evaluation of the abdominal viscera is limited without intravenous contrast. Gastrointestinal tract: There is no bowel obstruction.The appendix is normal size without inflammato ry changes.No abnormal colonic wall thickening is identified.There is no pneumoperitoneum. There is moderate stool within the rectum. There is mild presacral edema which may be reactive. Liver: The liver is normal in size.There is no intrahepatic ductal dilatation. Gallbladder: The gallbladder is grossly unremarkable. Pancreas: The pancreas is grossly unremarkable. Spleen: The spleen is normal in size. Kidneys: The kidneys are normal in size and contour.No renal calculi identified.There is no evidence of hydronephrosis. There is a too small to characterize left renal hypodensity. Adrenal glands: The bilateral adrenal glands are unremarkable. Retroperitoneum: There is no retroperitoneal adenopathy.The aorta is normal in caliber. CT PELVIS: Pelvic organs: The prostate is normal in size. Bladder: The bladder is distended but otherwise unremarkable. There is no pelvic free fluid.No pelvic adenopathy is identified. Osseous structures: No destructive lytic or blastic osseous lesion is identified. There are bilateral proximal thigh vascular calcifications greater than expected for age. There is m ild bilateral subcutaneous thigh edema. IMPRESSION: Evaluation of the abdominal viscera is limited without intravenous contrast. 1. Stable moderate stool within the rectum with mild presacral edema suggesting reactive changes. 2. No appendicitis or bowel obstruction. 3. Increased mild bilateral pleural effusions. 4. Bilateral proximal thigh vascular calcifications greater than expected for age. 5. Stable mild bilateral subcutaneous edema. 6. Too small to characterize left renal hypodensity. 7. Stable minimal pericardial effusion. Further findings as detailed above. RPTAT: PP .Jarrett Hassan MD, MD Date Time Electronically viewed and signed by .Jarrett Hassan MD, MD on 02/07/2017 18:48 .F/
[2017-02-07] MEDS ORDERED: ONDANSETRON 4 MG INJ IV STA (19:02)
[2017-02-07] MEDS ORDERED: HYDROmorphONE 1 MG/ML SYG IV STA ×2 (19:02→21:33)
[2017-02-07] MEDS ORDERED: LACTULOSE 30ML CUP PO ONE (19:30)
[2017-02-07] MEDS ORDERED: NA PHOSPHATE/BIPHOS 133 ML ENEMA PR ONE (21:00)
[2017-02-07 22:13] VITALS: BP 171/86; PULSE 78; RESP 18
== END 2017-02-07 22:48 | disposition home or self-care (01) ==
LOC: FTE 15:35
DX: K59.03 Drug induced constipation (principal); I10 Essential (primary) hypertension; E11.9 Type 2 diabetes mellitus without complications; Z79.01 Long term (current) use of anticoagulants; Z79.4 Long term (current) use of insulin; Z79.82 Long term (current) use of aspirin; Z87.891 Personal history of nicotine dependence
CPT/HCPCS: 74176; 82270; 82962; 85025; J1170; J2405; J7030; Z7610; 36415; 96374; 96375; 96376

== ENCOUNTER 2017-02-14 06:59 | Emergency (ER) | payer OTHER ==
[~2017-02-14] VITALS: Ht 172.7 cm; Wt 97.0 kg
[2017-02-14 07:05] VITALS: Ht 172.7 cm; Wt 97.0 kg
--- NOTE | 2017-02-14 07:24 | ERD ---
ER Documentation Chief Complaint Date/Time DATE: 02/14/17 TIME: 07:24 Chief Complaint r leg pain did not take his BP medications HPI This is a 41-year-old male who presents to the emergency room for evaluation of right lower extremity pain. The patient does state that he has chronic pain in the right lower extremity, and also has a known blood clot. The patient is taking Xarelto and denies any difference in his pain from his normal baseline pain. He states that he is scheduled to see a lead based paint technician on 23 February however he came to the ER for pain medicine because his doctor "only gives me Tylenol". The patient denies any numbness or tingling in the foot, denies any discoloration of the foot. ROS All systems reviewed and are negative except as per history of present illness. Medications Home Meds Active Scripts Sennosides* (Senna Lax*) 8.6 Mg Tablet, 1 TAB PO Q12H Y for CONSTIPATION, #20 TAB Prov:GLORIA GUADARRAMA 02/07/17 Magnesium Citrate* (Magnesium Citrate*) 296 Ml Solution, 296 ML PO ONCE, #1 BOTTLE Prov:GLORIA GUADARRAMA 02/07/17 Hydrocodone/Acetaminophen ([place] 10-325 Tablet) 1 Each Tablet, 1 TAB PO Q6H Y for PAIN, #7 TAB Prov:GLORIA GUADARRAMA 02/07/17 Oxycodone HCl/Acetaminophen (Percocet 10-325 mg Tablet) 1 Each Tablet, 1 EACH PO Q6 for SEVERE PAIN LEVEL 7-10, #20 TAB Prov:SOILA REEDER NP 02/01/17 Gabapentin* (Gabapentin*) 300 Mg Capsule, 300 MG PO BID, #60 CAP Prov:SOILA REEDER NP 02/01/17 Amlodipine Besylate* (Norvasc*) 5 Mg Tablet, 5 MG PO DAILY for 30 Days, TAB Prov:MERARY SAHU MD 01/29/17 Levofloxacin* (Levaquin*) 500 Mg Tablet, 500 MG PO DAILY for 7 Days, TAB Prov:MERARY SAHU MD 01/29/17 Hydrocodone/Acetaminophen ([place] 10-325 Tablet) 1 Each Tablet, 1 EACH PO QID, # 10 TAB Prov:ISABELLADOUGLAS 01/27/17 Ondansetron (Ondansetron Odt) 4 Mg Tab.rapdis, 4 MG PO Q6H Y for NAUSEA AND/OR VOMITING, #30 TAB Prov:TAJ MIRANDA MD 01/25/17 Hydrocodone/Acetaminophen ([place] 10-325 Tablet) 1 Each Tablet, 1 TAB PO Q6H Y for PAIN, #10 TAB Prov:TAJ MIRANDA MD 01/25/17 Insulin Glargine* (Lantus*) 100 Unit/Ml Soln, 25 UNIT SC DAILY@20 for 30 Days Prov:CLARITA VERMA S. 01/19/17 Docusate Sodium (Dok) 100 Mg Capsule, 100 MG PO BID, #60 CAP Prov:CLARITA VERMA S. 01/19/17 Sevelamer Carbonate* (Renvela*) 0.8 Gm Powd.pack, 1.6 GM PO WITH MEALS, #90 Prov:CLARITA VERMA S. 01/19/17 Amlodipine Besylate* (Amlodipine Besylate*) 5 Mg Tablet, 5 MG PO BID, #60 TAB Prov:CLARITA VERMA S. 01/19/17 Rivaroxaban* (Xarelto*) 20 Mg Tablet, 20 MG PO WITH DINNER for 30 Days, TAB Prov:CLARITA VERMA S. 01/19/17 Polyethylene Glycol* (Miralax*) 17 Gm Powd.pack, 17 GM PO DAILY for 30 Days Prov:CLARITA VERMA S. 01/19/17 Furosemide* (Furosemide*) 40 Mg Tablet, 40 MG PO DAILY for 30 Days, TAB Prov:LEXII REED M. 01/13/17 Famotidine* (Famotidine*) 20 Mg Tablet, 20 MG PO Q12 for 30 Days, TAB 2 Refills Prov:LEXII REED M. 01/13/17 Tamsulosin Hcl* (Flomax*) 0.4 Mg Cap.er.24h, 0.4 MG PO BID for 30 Days, CAP 1 Refill Prov:LEXII REED M. 01/13/17 Cholecalciferol* (Vitamin D3*) 1,000 Unit Tablet, 1000 UNIT PO DAILY for 30 Days , TAB 2 Refills Prov:LEXII REED. 01/13/17 Lisinopril* (Lisinopril*) 40 Mg Tablet, 40 MG PO DAILY, #30 TAB 2 Refills Prov:LEXII REED. 01/13/17 Potassium Chloride* (Potassium Chloride*) 20 Meq Tablet.er, 20 MEQ PO DAILY for 30 Days, TAB.SA 2 Refills Prov:LEXII REED. 01/13/17 Carvedilol* (Carvedilol*) 25 Mg Tablet, 25 MG PO BID, #60 TAB 2 Refills Prov:LEXII REED. 01/13/17 Reported Medications Rivaroxaban* (Xarelto*) 15 Mg Tablet, 15 MG PO BID, TAB 01/29/17 Hydralazine Hcl* (Hydralazine Hcl*) 50 Mg Tab, 50 MG PO Q8, #90 TAB 01/18/17 Aspirin* (Aspirin* EC) 81 Mg Tablet.dr, 81 MG PO DAILY, TAB 12/15/16 Allergies Allergies: Coded Allergies: ibuprofen (Verified Allergy, Mild, 01/27/17) PMhx/Soc History of Surgery: Yes (amputation left great toe) Anesthesia Reaction: No Hx Neurological Disorder: Yes (pt c/o constant headaches ) Hx Respiratory Disorders: Yes (PNA) Hx Cardiac Disorders: Yes (HTN) Hx Psychiatric Problems: No Hx Miscellaneous Medical Probl: Yes (DM) Hx Alcohol Use: No Hx Substance Use: No Hx Tobacco Use: No Physical Exam Vitals Vital Signs Date Time Temp Pulse Resp B/P Pulse Ox O2 Delivery O2 Flow Rate FiO2 02/14/17 07:05 97.8 86 18 233/104 98 Physical Exam Const: No acute distress Head: Atraumatic Eyes: Normal Conjunctiva ENT: Normal External Ears, Nose and Mouth. Neck: Full range of motion..~ No meningismus. Resp: Clear to auscultation bilaterally Cardio: Regular rate and rhythm, no murmurs Abd: Soft, non tender, non distended. Normal bowel sounds Skin: No petechiae or rashes Back: No midline or flank tenderness Ext: No cyanosis, or edema, peripheral pulses present and equal bilaterally Neur: Awake and alert Psych: Normal Mood and Affect Results 24 hrs Current Medications Medications (Trade) Dose Ordered Sig/Kuldeep Route PRN Reason Start Time Stop Time Status Last Admin Dose Admin Acetaminophen/ Hydrocodone Bitart ([place] (10)) 1 tab ONCE ONCE PO 02/14/17 07:30 02/14/17 07:31 Procedures/MDM This 41-year-old male presents to the emergency room for evaluation of right lower extremity pain. The patient has chronic right lower extremity pain. He is on Xarelto for DVT and does state that he has been taking Xarelto as prescribed. The patient came to the emergency room today for evaluation of pain. He states that he came to the ER for pain medicine. The patient did receive 10 mg [place] in the emergency room, he will be discharged home with a 15 tabs of [place] 10 mg with instructions to follow-up with primary care for refill as I do not feel comfortable giving narcotic medication for >5 days duration. Departure Diagnosis: Primary Impression: Chronic pain of right lower extremity Condition: Stable ALYCIA DIAZ DO Feb 14, 2017 07:24
[2017-02-14] MEDS ORDERED: HYDROCODONE/APAP (10/325) TAB PO ONE (07:30)
[2017-02-14] MEDS ORDERED: FER325 PO (07:30)
[2017-02-14] MEDS ORDERED: HYDR-902 PO (07:31)
[2017-02-14 07:50] VITALS: BP 200/98; PULSE 84; RESP 18
== END 2017-02-14 08:03 | disposition home or self-care (01) ==
LOC: E/R 06:59
DX: M79.661 Pain in right lower leg (principal); I10 Essential (primary) hypertension; E11.9 Type 2 diabetes mellitus without complications; Z79.4 Long term (current) use of insulin; Z79.82 Long term (current) use of aspirin
CPT/HCPCS: Z7502; Z7610; 99283

== ENCOUNTER 2017-02-24 00:43 | Emergency (ER) | payer OTHER ==
[~2017-02-24] VITALS: Ht 170.2 cm; Wt 90.5 kg
[~2017-02-24 00:43] MED LIST changes: -AMLO-145 PO; +FER325 PO; -LEVO500T72 PO; -MAGN296S40 PO; -OXYC-209 PO; -POLY17PO6 PO; -SEVE0.8P PO
[2017-02-24 00:58] VITALS: Ht 170.2 cm; Wt 90.5 kg
--- NOTE | 2017-02-24 01:46 | ERA ---
ER Documentation Chief Complaint Date/Time DATE: 02/24/17 TIME: 01:45 Chief Complaint chronic both leg pain, run out of pain medications HPI The patient is a 41-year-old male, presenting to the ER because of chronic bilateral extremity pain. He is requesting to refill his [place] because he is unable to see his chronic pain management physician or his primary care physician. He was in the ER about 9 days ago for similar symptoms. He denies fecal or urine incontinence, fever, chills, neck pain, chest, dyspnea, abdominal pain, vomiting. He does not smoke nor drink does illegal drug, denies any history of IV drug abuse Past medical history: Diabetes mellitus, history of right rt DVT, chronic pain syndrome, chronic low back pain, hypertension Past surgical history: Left great toe amputation ROS All systems reviewed and are negative except as per history of present illness. Medications Home Meds Active Scripts Hydrocodone/Acetaminophen ([place] 10-325 Tablet) 1 Each Tablet, 1 TAB PO Q6H Y for PAIN, #10 TAB Prov:RODDY KHALIL MD 02/24/17 Hydrocodone/Acetaminophen ([place] 10-325 Tablet) 1 Each Tablet, 1 TAB PO Q12 Y for PAIN, #15 TAB Prov:ALYCIA DIAZ DO 02/14/17 Sennosides* (Senna Lax*) 8.6 Mg Tablet, 1 TAB PO Q12H Y for CONSTIPATION, #20 TAB Prov:GLORIA GUADARRAMA 02/07/17 Gabapentin* (Gabapentin*) 300 Mg Capsule, 300 MG PO BID, #60 CAP Prov:SOILA REEDER NP 02/01/17 Amlodipine Besylate* (Norvasc*) 5 Mg Tablet, 5 MG PO DAILY for 30 Days, TAB Prov:MERARY SAHU MD 01/29/17 Ondansetron (Ondansetron Odt) 4 Mg Tab.rapdis, 4 MG PO Q6H Y for NAUSEA AND/OR VOMITING, #30 TAB Prov:TAJ MIRANDA MD 01/25/17 Insulin Glargine* (Lantus*) 100 Unit/Ml Soln, 25 UNIT SC DAILY@20 for 30 Days Prov:CLARITA VERMA 01/19/17 Docusate Sodium (Dok) 100 Mg Capsule, 100 MG PO BID, #60 CAP Prov:CLARITA VERMA S. 01/19/17 Rivaroxaban* (Xarelto*) 20 Mg Tablet, 20 MG PO WITH DINNER for 30 Days, TAB Prov:CLARITA VERMA S. 01/19/17 Furosemide* (Furosemide*) 40 Mg Tablet, 40 MG PO DAILY for 30 Days, [facility] 01/13/17 Famotidine* (Famotidine*) 20 Mg Tablet, 20 MG PO Q12 for 30 Days, TAB 2 [facility] 01/13/17 Tamsulosin Hcl* (Flomax*) 0.4 Mg Cap.er.24h, 0.4 MG PO BID for 30 Days, CAP 1 [facility] 01/13/17 Cholecalciferol* (Vitamin D3*) 1,000 Unit Tablet, 1000 UNIT PO DAILY for 30 Days , TAB 2 [facility] 01/13/17 Lisinopril* (Lisinopril*) 40 Mg Tablet, 40 MG PO DAILY, #30 TAB 2 [facility] 01/13/17 Potassium Chloride* (Potassium Chloride*) 20 Meq Tablet.er, 20 MEQ PO DAILY for 30 Days, TAB.SA 2 [facility]. 01/13/17 Carvedilol* (Carvedilol*) 25 Mg Tablet, 25 MG PO BID, #60 TAB 2 Refills Prov:LEXII REED . 01/13/17 Reported Medications Ferrous Sulfate* (Ferrous Sulfate*) 325 Mg Tabec, 325 MG PO DAILY, TAB 02/14/17 Rivaroxaban* (Xarelto*) 15 Mg Tablet, 15 MG PO BID, TAB 01/29/17 Hydralazine Hcl* (Hydralazine Hcl*) 50 Mg Tab, 50 MG PO Q8, #90 TAB 01/18/17 Aspirin* (Aspirin* EC) 81 Mg Tablet.dr, 81 MG PO DAILY, TAB 12/15/16 Allergies Allergies: Coded Allergies: ibuprofen (Verified Allergy, Mild, 02/24/17) PMhx/Soc History of Surgery: Yes (amputation left great toe) Anesthesia Reaction: No Hx Neurological Disorder: Yes (pt c/o constant headaches ) Hx Respiratory Disorders: Yes (PNA) Hx Cardiac Disorders: Yes (HTN) Hx Psychiatric Problems: No Hx Miscellaneous Medical Probl: Yes (DM) Hx Alcohol Use: No Hx Substance Use: No Hx Tobacco Use: No (FORMER - PT STATES A COUPLE SMOKES ON FRIDAYS..) Physical Exam Vitals Vital Signs Date Time Temp Pulse Resp B/P Pulse Ox O2 Delivery O2 Flow Rate FiO2 02/24/17 04:17 76 20 186/103 100 Room Air 02/24/17 00:58 99.4 82 20 206/103 99 Physical Exam Const: No acute distress. Head: Atraumatic. Eyes: Normal Conjunctiva. ENT: Normal External Ears, Nose and Mouth. Neck: Full range of motion. No meningismus. Resp: Clear to auscultation bilaterally. Cardio: Regular rate and rhythm. Abd: Soft, non distended, normal bowel sounds, non tender. Skin: No petechiae or rashes. Back: No midline or flank tenderness. Ext: No cyanosis, or edema. Neur: Awake and alert. No focal deficit Psych: Normal Mood and Affect. Results 24 hrs Current Medications Medications (Trade) Dose Ordered Sig/Kuldeep Route PRN Reason Start Time Stop Time Status Last Admin Dose Admin Acetaminophen/ Hydrocodone Bitart ([place] (10/325)) 1 tab ONCE ONCE PO 02/24/17 02:00 02/24/17 02:01 DC 02/24/17 02:11 Clonidine (Catapres) 0.1 mg ONCE ONCE PO 02/24/17 02:00 02/24/17 02:01 Cancel Clonidine (Catapres) 0.2 mg ONCE ONCE PO 02/24/17 02:30 02/24/17 02:31 DC 02/24/17 02:11 Clonidine (Catapres) 0.2 mg ONCE ONCE PO 02/24/17 05:00 02/24/17 05:01 Procedures/MDM MEDICAL MAKING DECISION: The patient is 41-year-old male, presenting with chronic pain syndrome, acute accelerated hypertension. He was treated with [place] 10 mg p.o. for pain, clonidine 0.2 mg 2 about 1 hour apart for acute excellent hypertension with good response. The differential diagnoses considered include but are not limited to subarachnoid hemorrhage, occult trauma, CVA, meningitis, encephalitis, hypertension, tension, migraine, cluster, narcotic withdrawal, cervical spine disease, medical noncompliance,. Departure Diagnosis: Primary Impression: Chronic pain Additional Impression: Accelerated hypertension Condition: Good Comments He was discharged with 10 tablets of [place] 10 mg I discussed the findings with the patient. I advised the patient to follow-up with the primary physician in about 1-2 days, sooner if needed and return if any concern. RODDY KHALIL MD Feb 24, 2017 01:46
[2017-02-24] MEDS ORDERED: HYDROCODONE/APAP (10/325) TAB PO ONE (02:00)
[2017-02-24] MEDS ORDERED: HYDR-902 PO (02:01)
[2017-02-24 05:27] VITALS: BP 160/85; PULSE 70; RESP 20; TEMP 98.3
== END 2017-02-24 05:35 | disposition home or self-care (01) ==
LOC: E/R 00:43
DX: G89.4 Chronic pain syndrome (principal); I10 Essential (primary) hypertension; M79.605 Pain in left leg; E11.9 Type 2 diabetes mellitus without complications; Z79.4 Long term (current) use of insulin; Z79.82 Long term (current) use of aspirin; Z87.891 Personal history of nicotine dependence
CPT/HCPCS: Z7502; Z7610; 99283

== ENCOUNTER 2017-02-26 15:29 | Emergency (ER) | payer OTHER ==
[~2017-02-26] VITALS: Ht 170.2 cm; Wt 89.5 kg
[2017-02-26 15:35] VITALS: Ht 170.2 cm; Wt 89.5 kg
--- NOTE | 2017-02-26 16:31 | ERA ---
ER Documentation Chief Complaint Date/Time DATE: 02/26/17 TIME: 16:24 Chief Complaint BACK PAIN RADIATING TO TESTICLES, TOLD HE HAD PINCH NERVE 2 WKS AGO HPI This is a delightful 41-year-old male presenting requesting pain medications for chronic back pain times months. Patient states that his lower extremities lateral sides are numb. Denies saddle paraesthesia, incontinence, RPND, or pain exacerbated by valsalva; Denies fever, chills, night sweats, weight loss, or increase symptoms at night. Patient also denies history of fibromyalgia, cancer , HIV, IVDU, arthritis or recent surgery. I reviewed the patient's documents. Nursing notes are consistent with the history given by the patient. Patient has no other complaints at this time. Has an appointment with orthopedics on the 14th and 10 days from now. ROS All systems reviewed and are negative except as per history of present illness. Medications Home Meds Active Scripts Hydrocodone/Acetaminophen ([place] 10-325 Tablet) 1 Each Tablet, 1 TAB PO Q6H Y for PAIN, #10 TAB Prov:RODDY KHALIL MD 02/24/17 Hydrocodone/Acetaminophen ([place] 10-325 Tablet) 1 Each Tablet, 1 TAB PO Q12 Y for PAIN, #15 TAB Prov:ALYCIA DIAZ DO 02/14/17 Sennosides* (Senna Lax*) 8.6 Mg Tablet, 1 TAB PO Q12H Y for CONSTIPATION, #20 TAB Prov:GLORIA GUADARRAMA 02/07/17 Gabapentin* (Gabapentin*) 300 Mg Capsule, 300 MG PO BID, #60 CAP Prov:SOILA REEDER NP 02/01/17 Amlodipine Besylate* (Norvasc*) 5 Mg Tablet, 5 MG PO DAILY for 30 Days, TAB Prov:MERARY SAHU MD 01/29/17 Ondansetron (Ondansetron Odt) 4 Mg Tab.rapdis, 4 MG PO Q6H Y for NAUSEA AND/OR VOMITING, #30 TAB Prov:TAJ MIRANDA MD 01/25/17 Insulin Glargine* (Lantus*) 100 Unit/Ml Soln, 25 UNIT SC DAILY@20 for 30 Days Prov:CLARITA VERMA 01/19/17 Docusate Sodium (Dok) 100 Mg Capsule, 100 MG PO BID, #60 CAP Prov:CLARITA VERMA S. 01/19/17 Rivaroxaban* (Xarelto*) 20 Mg Tablet, 20 MG PO WITH DINNER for 30 Days, TAB Prov:CLARITA VERMA S. 01/19/17 Furosemide* (Furosemide*) 40 Mg Tablet, 40 MG PO DAILY for 30 Days, TAB [facility] 01/13/17 Famotidine* (Famotidine*) 20 Mg Tablet, 20 MG PO Q12 for 30 Days, TAB 2 Refills [facility]. 01/13/17 Tamsulosin Hcl* (Flomax*) 0.4 Mg Cap.er.24h, 0.4 MG PO BID for 30 Days, CAP 1 Refill [facility]. 01/13/17 Cholecalciferol* (Vitamin D3*) 1,000 Unit Tablet, 1000 UNIT PO DAILY for 30 Days , TAB 2 Refills Prov[facility]. 01/13/17 Lisinopril* (Lisinopril*) 40 Mg Tablet, 40 MG PO DAILY, #30 TAB 2 Refills Prov[facility]. 01/13/17 Potassium Chloride* (Potassium Chloride*) 20 Meq Tablet.er, 20 MEQ PO DAILY for 30 Days, TAB.SA 2 Refills Prov[facility]. 01/13/17 Carvedilol* (Carvedilol*) 25 Mg Tablet, 25 MG PO BID, #60 TAB 2 Refills Prov[facility]. 01/13/17 Reported Medications Ferrous Sulfate* (Ferrous Sulfate*) 325 Mg Tabec, 325 MG PO DAILY, TAB 02/14/17 Rivaroxaban* (Xarelto*) 15 Mg Tablet, 15 MG PO BID, TAB 01/29/17 Hydralazine Hcl* (Hydralazine Hcl*) 50 Mg Tab, 50 MG PO Q8, #90 TAB 01/18/17 Aspirin* (Aspirin* EC) 81 Mg Tablet.dr, 81 MG PO DAILY, TAB 12/15/16 Allergies Allergies: Coded Allergies: ibuprofen (Verified Allergy, Mild, 02/24/17) PMhx/Soc History of Surgery: Yes (amputation left great toe) Anesthesia Reaction: No Hx Neurological Disorder: Yes (pt c/o constant headaches ) Hx Respiratory Disorders: Yes (PNA) Hx Cardiac Disorders: Yes (HTN) Hx Psychiatric Problems: No Hx Miscellaneous Medical Probl: Yes (DM) Hx Alcohol Use: No Hx Substance Use: No Hx Tobacco Use: No (FORMER - PT STATES A COUPLE SMOKES ON FRIDAYS..) Smoking Status: Never smoker Physical Exam Vitals Vital Signs Date Time Temp Pulse Resp B/P Pulse Ox O2 Delivery O2 Flow Rate FiO2 02/26/17 15:35 98.0 83 18 162/102 99 Physical Exam Const: Well-appearing 41-year-old female in mild distress Head: Atraumatic Eyes: Normal Conjunctiva, PERRLA and EOMI bilaterally. ENT: Normal External Ears, Nose and Mouth. Neck: Full range of motion..~ No meningismus. Resp: Clear to auscultation bilaterally Cardio: Regular rate and rhythm, no murmurs Abd: Soft, non tender, non distended. Normal bowel sounds Skin: No petechiae or rashes Back: No midline or flank tenderness. Mild tenderness of the paraspinal muscles. Ext: No cyanosis. 1+ pitting edema bilaterally. Neur: Awake and alert. Patella DTRs 2+ bilaterally. Neurovascularly intact bilaterally. Straight leg raise positive. Normal range of motion of ankles bilaterally. Normal range of motion to knees bilaterally. Hip range of motion decreased secondary to pain. Psych: Normal Mood and Affect Procedures/MDM Patient was evaluated for chronic back pain. Patient was last seen 2 days ago and evaluated by Dr. Khalil. I have reviewed the patient's documents. Patient received a CT scan 1 month ago that was read by the radiologist given the following impression: No acute fracture. Multilevel lumbar spondylosis with right paracentral disk protrusion and right foraminal narrowing L3-4 and diffuse disk bulge with bilateral foraminal narrowing at L4-5. MRI could be obtained for further evaluation. Persistent distension of the urinary bladder. I reviewed these results with my attending Dr. Cervantes who has suggested that these are chronic changes in no acute emergency department management is necessary. Current most likely diagnosis is consistent with previous diagnoses including chronic pain and degenerative disc disease. Patient is allergic to ibuprofen thus I have suggested to continue the [place] that was prescribed to him 2 days ago and seek care at a clinic for possible referral to pain management until his appointment on the . At this time I do not suspect cauda equina syndrome , aortic aneurysm, aortic dissection, epidural abscess, spinal hematoma, malignancy, acute neurovascular compromise, kidney stones or pyelonephritis. I have spoke with the patient regarding their condition and future management. I have presented the case to my attending Dr. Cervantes who agrees with assessment and plan. They have verbally responded that they understand their status and treatment plan including the necessity to return to the emergency department if red flags we have discussed arise. The patients vitals are stable, and their current condition is appropriate for discharge. The patient will be given discharge instructions with return precautions. Departure Diagnosis: Primary Impression: Degenerative disk disease Qualified Code: M51.36 - Degeneration of intervertebral disc of lumbar region Additional Impression: Back pain Qualified Code: M54.5 - Chronic bilateral low back pain, with sciatica presence unspecified Condition: Stable Patient Instructions: Back Pain (Acute Or Chronic) Referrals: [facility] Usted se meza hecho un examen mdico de control que le indica que no est en naren condicin que requiera tratamiento urgente en el Departamento de Emergencia. Un estudio ms profundo y el tratamiento de escobar condicin pueden esperar sin ningn riesgo hasta que usted sea atendida/o en el consultorio de escobar mdico o naren cl yessy. Es responsabilidad suya arreglar naren marcel para el seguimiento del tom. MANEJO DE CONDICIONES NO URGENTES EN EL FUTURO 1) Si usted tiene un mdico de atencin primaria: Usted debera llamar a escobar mdico de atencin primaria antes de venir al departamento de emergencia. Despus de las horas de consultorio, escobar doctor o escobar asociado/a est disponible por telfono. El mdico o enfermero de jose carlos en el servicio telefnico puede asesorarle por gregoria medio para atender el problema, o tom contrario se puede programar naren marcel. 2) Si usted no tiene un mdico de atencin primaria: Llame al mdico o clnica de referencia que aparece abajo cindy las horas de consultorio para hacer naren marcel para que le vean. CLINICAS: [place] [address] [phone] [place] [address] [phone] [place] [address] [phone] [facility] [place] [address] [phone] [facility] [place] [address] [phone] [facility] [phone] [address] [facility] YOU HAVE RECEIVED A MEDICAL SCREENING EXAM AND THE RESULTS INDICATE THAT YOU DO NOT HAVE A CONDITION THAT REQUIRES URGENT TREATMENT IN THE EMERGENCY DEPARTMENT. FURTHER EVALUATION AND TREATMENT OF YOUR CONDITION CAN WAIT UNTIL YOU ARE SEEN IN YOUR DOCTORS OFFICE WITHIN THE NEXT 1-2 DAYS. IT IS YOUR RESPONSIBILITY TO MAKE AN APPOINTMENT FOR FOLOW-UP CARE. IF YOU HAVE A PRIMARY DOCTOR --you should call your primary doctor and schedule an appointment IF YOU DO NOT HAVE A PRIMARY DOCTOR YOU CAN CALL OUR PHYSICIAN REFERRAL HOTLINE AT IF YOU CAN NOT AFFORD TO SEE A PHYSICIAN YOU CAN CHOSE FROM THE FOLLOWING [facility] [phone] [facility] [phone] [facility]. [facility] [phone] [facility]. [facility] [address] [facility]. [facility] [phone] [facility]. [facility]. [address] [facility] () Usted se meza hecho un examen mdico de control que le indica que no est en naren condicin que requiera tratamiento urgente en el Departamento de Emergencia. Un estudio ms profundo y el tratamiento de escobar condicin pueden esperar sin ningn riesgo hasta que usted sea atendida/o en el consultorio de escobar mdico o naren cl yessy. Es responsabilidad suya arreglar naren marcel para el seguimiento del tom. MANEJO DE CONDICIONES NO URGENTES EN EL FUTURO 1) Si usted tiene un mdico de atencin primaria: Usted debera llamar a escobar mdico de atencin primaria antes de venir al departamento de emergencia. Despus de las horas de consultorio, escobar doctor o escobar asociado/a est disponible por telfono. El mdico o enfermero de jose carlos en el servicio telefnico puede asesorarle por gregoria medio para atender el problema, o tom contrario se puede programar naren marcel. 2) Si usted no tiene un mdico de atencin primaria: Llame al mdico o condado institucions de referencia que aparece abajo cindy las horas de consultorio para hacer naren marcel para que le vean. SI USTED NO PUEDE PAGAR PARA SELENE UN MEDICO puede ir a: [facility] [address] [place] [address] [facility] [address] [place] [address] [facility] [address] [place] [address] [facility] [address] [place] [address] [facility] 7 a.m.- 11 p.m. Every Day of the Week NO APPOINTMENT OR AUTHORIZATION NEEDED [facility] Hours: Mon-Fri 9:00 AM - 5:00 PM Additional Instructions: Follow-up with orthopedics. Return the the emergency department immediately if symptoms worsen or change. Continue taking medications previously prescribed. If you have any questions regarding medications, ask your pharmacist or us before you leave. If any adverse reactions occur while taking your medications, discontinue the treatment and return to the emergency department immediately. Take your medications as directed, and complete the entire course of treatment. RODDY DALTON PA-C Feb 26, 2017 16:31
== END 2017-02-26 16:49 | disposition home or self-care (01) ==
LOC: FTE 15:29
DX: M51.36 Other intervertebral disc degeneration, lumbar region (principal); M54.5 Low back pain; I10 Essential (primary) hypertension; E11.9 Type 2 diabetes mellitus without complications; Z79.4 Long term (current) use of insulin; Z79.82 Long term (current) use of aspirin; Z87.891 Personal history of nicotine dependence
CPT/HCPCS: 99282

== ENCOUNTER 2017-03-06 11:36 | Emergency (ER) | END 2017-03-06 12:38 | disposition home or self-care (01) | DX: G89.29 Other chronic pain (principal); I10 Essential (primary) hypertension; E11.9 Type 2 diabetes mellitus without complications; F17.210 Nicotine dependence, cigarettes, uncomplicated; M79.606 Pain in leg, unspecified; Z79.01 Long term (current) use of anticoagulants; Z79.4 Long term (current) use of insulin | CPT/HCPCS: Z7502; Z7610 ==

== ENCOUNTER → 2017-04-09 | Outpatient (CLI) | payer OTHER ==
--- NOTE | 2017-04-10 09:57 | RADRPT ---
PROCEDURE: XR Left Foot CLINICAL INDICATION: Charcot's foot TECHNIQUE: AP, oblique, and lateral radiographs were submitted. COMPARISON: 01/31/2017 FINDINGS: Osseous structures: The first ray is again seen to be amputated at the base of the first metatarsal. 2 cannulated screws are again seen to extend obliquely to the bases of the first, fourth and fifth metatarsals into the cuneiforms and cuboid. There continues to be increased sclerosis with periost eal reaction seen along the shaft of the left second metatarsal, unchanged. Joint spaces: A pes planus is again evident. Soft tissues: A linear calcification again extends through the soft tissues medial to the second met atarsal shaft. Vascular calcification is again noted. IMPRESSION: 1. There is again evidence of previous amputation at the base of the left first metatarsal and 2 ca nnulated screws are again seen extend through the bases of the metatarsals into the cuneiforms and c uboid, unchanged. 2. There is again increased sclerosis to the shaft of the second metatarsal, unchanged. This could be a sequelae of very atrophic change or sequelae of chronic osteomyelitis but no focal osseous ezra truction is presently evident. 3. Linear calcification projects to the soft tissues medial to the second metatarsal shaft, unchang ed. 4. Pes planus 5. Vascular calcification is again noted. Physician Mary Date Time Electronically viewed and signed by Physician Mary on 04/10/2017 09:57 /
== END | disposition home or self-care (01) ==
LOC: RAD 12:04
PROVIDERS: ATTEND Podiatrist Foot & Ankle Surgery
DX: A52.16 Charcot's arthropathy (tabetic) (principal)

== ENCOUNTER 2017-05-09 12:10 | Emergency (ER) | payer OTHER ==
[~2017-05-09] VITALS: Wt 101.0 kg
[2017-05-09] MEDS ORDERED: ONDANSETRON (ODT) 4 MG TAB ODT STA (13:49)
[2017-05-09] MEDS ORDERED: HYDROCODONE/APAP (10/325) TAB PO ONE (14:00)
[2017-05-09] MEDS ORDERED: FUROSEMIDE 20 MG TAB PO ONE (14:00)
[2017-05-09] MEDS ORDERED: INSULIN LISPRO 100 UNIT/ML VIAL SC STA (14:15)
--- NOTE | 2017-05-09 14:23 | RADRPT ---
PROCEDURE: Chest Radiograph. CLINICAL INDICATION: lower extremity swelling. Cough. TECHNIQUE: Single frontal chest radiograph. COMPARISON: Chest radiograph 06/02/2016 FINDINGS: The cardiomediastinal silhouette is within normal limits. No infiltrate or effusion is seen. Th e bones are intact. IMPRESSION: 1. Unremarkable chest radiograph. RPTAT: AA .Lavon Cardona MD, MD Date Time Electronically viewed and signed by .Lavon Cardona MD, on 05/09/2017 14:22 .B/
[2017-05-09] MEDS ORDERED: FURO-109 PO (14:55)
--- NOTE | 2017-05-09 14:58 | ERD ---
ER Documentation Chief Complaint Date/Time DATE: 05/09/17 TIME: 14:57 Chief Complaint LOW BACK PAIN, BILAT LOWER EXT EDEMA, PREVIOUS HOSP ADMISSION HPI Patient is a 42-year-old male with hypertension and diabetes who presents with leg pain and swelling. The patient has bilateral lower extremity pain and edema. The right is more than the left. The symptoms started on Sunday and he has had this happen infrequently in the past however this has lasted more than usual. He has mild shortness of breath but is speaking in full sentences. He has a history of diabetes and high blood pressure but did not take any of his blood pressure medicines today. He is taking Percocet for pain but says that he does not like taking it because it causes him to be constipated so he did not take any today. He does make urine. He said that his primary doctor is Dr. Mensah but has not called this doctor as of yet. Upon review of old medical records the patient has multiple visits to the ER for various complaints. ROS All systems reviewed and are negative except as per history of present illness. Medications Home Meds Active Scripts Furosemide* (Lasix*) 40 Mg Tablet, 40 MG PO DAILY, #20 TAB Prov:LU GILLILAND MD 05/09/17 Hydrocodone/Acetaminophen ([place] 10-325 Tablet) 1 Each Tablet, 1 TAB PO Q6H Y for PAIN, #7 TAB Prov:ELIZABETH HULL PA-C 03/06/17 Hydrocodone/Acetaminophen ([place] 10-325 Tablet) 1 Each Tablet, 1 TAB PO Q6H Y for PAIN, #10 TAB Prov:RODDY KHALIL MD 02/24/17 Hydrocodone/Acetaminophen ([place] 10-325 Tablet) 1 Each Tablet, 1 TAB PO Q12 Y for PAIN, #15 TAB Prov:ALYCIA DIAZ DO 02/14/17 Sennosides* (Senna Lax*) 8.6 Mg Tablet, 1 TAB PO Q12H Y for CONSTIPATION, #20 TAB Prov:GLORIA GUADARRAMA 02/07/17 Gabapentin* (Gabapentin*) 300 Mg Capsule, 300 MG PO BID, #60 CAP Prov:SOILA REEDER NP 02/01/17 Amlodipine Besylate* (Norvasc*) 5 Mg Tablet, 5 MG PO DAILY for 30 Days, TAB Prov:MERARY SAHU MD 01/29/17 Ondansetron (Ondansetron Odt) 4 Mg Tab.rapdis, 4 MG PO Q6H Y for NAUSEA AND/OR VOMITING, #30 TAB Prov:TAJ MIRANDA MD 01/25/17 Insulin Glargine* (Lantus*) 100 Unit/Ml Soln, 25 UNIT SC DAILY@20 for 30 Days Prov:CLARITA VERMA S. 01/19/17 Docusate Sodium (Dok) 100 Mg Capsule, 100 MG PO BID, #60 CAP Prov:CLARITA VERMA . 01/19/17 Rivaroxaban* (Xarelto*) 20 Mg Tablet, 20 MG PO WITH DINNER for 30 Days, TAB Prov:CLARITA VERMA . 01/19/17 Furosemide* (Furosemide*) 40 Mg Tablet, 40 MG PO DAILY for 30 Days, TAB [facility]. 01/13/17 Famotidine* (Famotidine*) 20 Mg Tablet, 20 MG PO Q12 for 30 Days, TAB 2 Refills Prov:LEXII REED . 01/13/17 Tamsulosin Hcl* (Flomax*) 0.4 Mg Cap.er.24h, 0.4 MG PO BID for 30 Days, CAP 1 Refill [facility] 01/13/17 Cholecalciferol* (Vitamin D3*) 1,000 Unit Tablet, 1000 UNIT PO DAILY for 30 Days , TAB 2 Refills Prov:[facility] . 01/13/17 Lisinopril* (Lisinopril*) 40 Mg Tablet, 40 MG PO DAILY, #30 TAB 2 Refills Prov:[facility] . 01/13/17 Potassium Chloride* (Potassium Chloride*) 20 Meq Tablet.er, 20 MEQ PO DAILY for 30 Days, TAB.SA 2 Refills Prov:[facility] 01/13/17 Carvedilol* (Carvedilol*) 25 Mg Tablet, 25 MG PO BID, #60 TAB 2 Refills Prov:[facility] . 01/13/17 Reported Medications Ferrous Sulfate* (Ferrous Sulfate*) 325 Mg Tabec, 325 MG PO DAILY, TAB 02/14/17 Rivaroxaban* (Xarelto*) 15 Mg Tablet, 15 MG PO BID, TAB 01/29/17 Hydralazine Hcl* (Hydralazine Hcl*) 50 Mg Tab, 50 MG PO Q8, #90 TAB 01/18/17 Aspirin* (Aspirin* EC) 81 Mg Tablet.dr, 81 MG PO DAILY, TAB 12/15/16 Allergies Allergies: Coded Allergies: ibuprofen (Verified Allergy, Mild, 02/24/17) PMhx/Soc History of Surgery: Yes (amputation left great toe) Anesthesia Reaction: No Hx Neurological Disorder: Yes (pt c/o constant headaches ) Hx Respiratory Disorders: Yes (PNA) Hx Cardiac Disorders: Yes (HTN) Hx Psychiatric Problems: No Hx Miscellaneous Medical Probl: Yes (DM) Hx Alcohol Use: No Hx Substance Use: No Hx Tobacco Use: Yes (FORMER - PT STATES A COUPLE SMOKES ON FRIDAYS..) Smoking Status: Current every day smoker FmHx Family History: diabetes Physical Exam Vitals Vital Signs Date Time Temp Pulse Resp B/P Pulse Ox O2 Delivery O2 Flow Rate FiO2 05/09/17 14:59 77 17 227/115 97 05/09/17 14:23 74 17 219/110 97 05/09/17 12:14 97.5 83 17 202/98 97 Physical Exam Const: No acute distress, speaking in full sentences Head: Atraumatic Eyes: Normal Conjunctiva ENT: Normal External Ears, Nose and Mouth. Neck: Full range of motion..~ No meningismus. Resp: Clear to auscultation bilaterally Cardio: Regular rate and rhythm, no murmurs Abd: Soft, non tender, non distended. Normal bowel sounds Skin: No petechiae or rashes Back: No midline or flank tenderness Ext: 2+ pitting edema bilateral lower extremities Neur: Awake and alert Psych: Normal Mood and Affect Results 24 hrs Laboratory Tests Test 05/09/17 14:14 Bedside Glucose 460mg/dL Current Medications Medications (Trade) Dose Ordered Sig/Kuldeep Route PRN Reason Start Time Stop Time Status Last Admin Dose Admin Furosemide (Lasix) 40 mg ONCE ONCE PO 05/09/17 14:00 05/09/17 14:01 DC 05/09/17 14:08 Acetaminophen/ Hydrocodone Bitart ([place] (10/325)) 1 tab ONCE ONCE PO 05/09/17 14:00 05/09/17 14:01 DC 05/09/17 14:08 Ondansetron HCl (Zofran Odt) 4 mg ONCE STAT ODT 05/09/17 13:49 05/09/17 13:51 DC 05/09/17 14:07 Insulin Human Lispro (Humalog) 20 unit ONCE STAT SC 05/09/17 14:15 05/09/17 14:16 DC 05/09/17 14:20 Nicardipine HCl (Cardene) 30 mg ONCE ONCE PO 05/09/17 15:00 05/09/17 15:01 DC 05/09/17 15:00 Procedures/MDM EKG read by me: Rate/Rhythm: Regular rate and rhythm at a rate of 75 Intervals: Normal Impression: No evidence of ischemia or arrhythmia Chest x-ray negative per radiology. Smoking Cessation Therapy: Pt. was lectured for greater than 3 minutes on the health risks of continued smoking and the benefits of cessation. Patient is a 42-year-old male with hypertension and diabetes who presents with bilateral lower extremity swelling. He is having no shortness of breath at this time and I doubt serious congestive heart failure at this time. I do believe he would benefit from Lasix daily and I have given him the first dose in the emergency department. A prescription will be given as well. He can take his Percocet as needed for pain. I doubt DVT at this time. I doubt pulmonary embolism. I doubt pneumonia or pneumothorax. I doubt acute coronary syndrome. I believe outpatient management is appropriate but the patient will need close follow-up with his primary doctor within 24-48 hours. The patient has hypertension and was given Cardene by mouth. He did not take his blood pressure medicines today. He should continue to take his blood pressure medicines as directed. Departure Diagnosis: Primary Impression: Hypertension Hypertension type: essential hypertension Qualified Code: I10 - Essential hypertension Additional Impressions: Edema Edema type: unspecified Qualified Code: R60.9 - Edema, unspecified type Hyperglycemia Condition: Fair Patient Instructions: Hyperglycemia (High Blood Sugar), Peripheral Edema, Bilateral Referrals: Dr. Mensah Additional Instructions: Call your primary care doctor TOMORROW for an appointment during the next 1-2 days.See the doctor sooner or return here if your condition worsens before your appointment time. LU GILLILAND MD May 09, 2017 14:58
[2017-05-09 14:59] VITALS: BP 227/115; PULSE 77; RESP 17
[2017-05-09] MEDS ORDERED: NICARDipine HCL 30 MG CAPSULE PO ONE (15:00)
== END 2017-05-09 15:09 | disposition home or self-care (01) ==
LOC: E/R 12:10
DX: I10 Essential (primary) hypertension (principal); R60.9 Edema, unspecified; E11.65 Type 2 diabetes mellitus with hyperglycemia; F17.210 Nicotine dependence, cigarettes, uncomplicated; Z79.4 Long term (current) use of insulin; Z79.82 Long term (current) use of aspirin
CPT/HCPCS: 71010; 82962; 93005; 96372; J1815; Z7502; Z7610

== ENCOUNTER 2017-06-06 22:07 | Emergency (ER) | payer OTHER ==
[~2017-06-06] VITALS: Ht 170.2 cm; Wt 114.0 kg
[~2017-06-06 22:07] MED LIST changes: +FURO-109 PO
[2017-06-06 22:15] VITALS: Ht 170.2 cm; Wt 114.0 kg
[2017-06-07 01:15] LABS: BASOPHILS % 0.3 % (0.0-2.0); EOSINOPHILS # 0.3 10^3/ul (0.0-0.5); EOSINOPHILS % 4.7 % (0.0-7.0); HEMATOCRIT 30.4 % (42.0-52.0); HEMOGLOBIN 9.5 g/dl (14.0-18.0); LYMPHOCYTES % 29.5 % (15.0-51.0); MEAN CORPUSCULAR HEMOGLOBIN 26.5 pg (29.0-33.0); MEAN CORPUSCULAR HGB CONC 31.3 g/dl (32.0-37.0); MEAN CORPUSCULAR VOLUME 84.7 fl (82.0-101.0); MEAN PLATELET VOLUME 11.5 fl (7.4-10.4); MONOCYTE # 0.6 10^3/ul (0.3-0.9); MONOCYTES % 8.4 % (0.0-11.0); NEUTROPHIL # 3.8 10^3/ul (1.6-7.5); NEUTROPHILS % 56.6 % (39.0-77.0); PLATELET COUNT 237 10^3/UL (140-415); RED BLOOD COUNT 3.59 10^6/ul (4.70-6.10); RED CELL DISTRIBUTION WIDTH 14.2 % (11.5-14.5); WHITE BLOOD COUNT 6.6 10^3/ul (4.8-10.8)
[2017-06-07] MEDS ORDERED: HYDROCODONE/APAP (5/325) TAB PO ONE (01:30)
[2017-06-07 01:45] LABS: CALCIUM 8.2 mg/dl (8.4-10.2); CREATININE 2.35 mg/dl (0.61-1.24); POTASSIUM 4.1 mmol/L (3.5-5.1)
--- NOTE | 2017-06-07 02:14 | RADRPT ---
PROCEDURE: CHEST - 1 VIEW CLINICAL INDICATION: 42-year-old male with shortness of breath. TECHNIQUE: A single frontal AP portable view of the chest was performed. The images were reviewed on a PACS workstation. COMPARISON: Chest x-ray June 02, 2016. FINDINGS: The cardiomediastinal silhouette is within normal limits. There is no evidence for an infiltrate. There is no evidence for congestive heart failure. There is no evidence for pneumothorax. The osseou s structures are intact. IMPRESSION: No evidence for active cardiopulmonary disease. .Jean Carlos Bateman MD, MD Date Time Electronically viewed and signed by .Jean Carlos Bateman MD, on 06/07/2017 02:14 .M/
[2017-06-07 02:23] VITALS: BP 132/80; PULSE 73; RESP 20; TEMP 98.3
[2017-06-07] MEDS ORDERED: FUROSEMIDE 20 MG INJ IV ONE (02:30)
--- NOTE | 2017-06-07 02:32 | ERD ---
ER Documentation Chief Complaint Date/Time DATE: 06/07/17 TIME: 02:30 Chief Complaint dx w/ RRL PNA yesterday. c/o of worsening sob tonight. HPI This is a 42-year-old male presents to the emergency room for evaluation of shortness of breath. The patient states that he was diagnosed with pneumonia yesterday. He states that he was given a prescription for azithromycin and states that he is concerned because his pneumonia has not improved since yesterday. The patient states that he had pneumonia last year and was hospitalized and was "in a coma". The patient came in today for evaluation of shortness of breath and generalized weakness. He denies any fevers or chills at this time. ROS All systems reviewed and are negative except as per history of present illness. Medications Home Meds Active Scripts Furosemide* (Lasix*) 40 Mg Tablet, 40 MG PO DAILY, #20 TAB Prov:LU GILLILAND MD 05/09/17 Hydrocodone/Acetaminophen ([place] 10-325 Tablet) 1 Each Tablet, 1 TAB PO Q6H Y for PAIN, #7 TAB Prov:ELIZABETH HULL PA-C 03/06/17 Hydrocodone/Acetaminophen ([place] 10-325 Tablet) 1 Each Tablet, 1 TAB PO Q6H Y for PAIN, #10 TAB Prov:RODDY KHALIL MD 02/24/17 Hydrocodone/Acetaminophen ([place] 10-325 Tablet) 1 Each Tablet, 1 TAB PO Q12 Y for PAIN, #15 TAB Prov:ALYCIA DIAZ DO 02/14/17 Sennosides* (Senna Lax*) 8.6 Mg Tablet, 1 TAB PO Q12H Y for CONSTIPATION, #20 TAB Prov:GLORIA GUADARRAMA 02/07/17 Gabapentin* (Gabapentin*) 300 Mg Capsule, 300 MG PO BID, #60 CAP Prov:SOILA REEDER NP 02/01/17 Amlodipine Besylate* (Norvasc*) 5 Mg Tablet, 5 MG PO DAILY for 30 Days, TAB Prov:MERARY SAHU MD 01/29/17 Ondansetron (Ondansetron Odt) 4 Mg Tab.rapdis, 4 MG PO Q6H Y for NAUSEA AND/OR VOMITING, #30 TAB Prov:TAJ MIRANDA MD 01/25/17 Insulin Glargine* (Lantus*) 100 Unit/Ml Soln, 25 UNIT SC DAILY@20 for 30 Days Prov:CLARITA VERMA S. 01/19/17 Docusate Sodium (Dok) 100 Mg Capsule, 100 MG PO BID, #60 CAP Prov:CLARITA VERMA . 01/19/17 Rivaroxaban* (Xarelto*) 20 Mg Tablet, 20 MG PO WITH DINNER for 30 Days, TAB Prov:CLARITA VERMA . 01/19/17 Furosemide* (Furosemide*) 40 Mg Tablet, 40 MG PO DAILY for 30 Days, TAB [facility]. 01/13/17 Famotidine* (Famotidine*) 20 Mg Tablet, 20 MG PO Q12 for 30 Days, TAB 2 Refills Prov[facility]. 01/13/17 Tamsulosin Hcl* (Flomax*) 0.4 Mg Cap.er.24h, 0.4 MG PO BID for 30 Days, CAP 1 Refill Prov[facility]. 01/13/17 Cholecalciferol* (Vitamin D3*) 1,000 Unit Tablet, 1000 UNIT PO DAILY for 30 Days , TAB 2 Refills Prov[facility]. 01/13/17 Lisinopril* (Lisinopril*) 40 Mg Tablet, 40 MG PO DAILY, #30 TAB 2 Refills Prov:[facility]. 01/13/17 Potassium Chloride* (Potassium Chloride*) 20 Meq Tablet.er, 20 MEQ PO DAILY for 30 Days, TAB.SA 2 [facility]ills [facility] . 01/13/17 Carvedilol* (Carvedilol*) 25 Mg Tablet, 25 MG PO BID, #60 TAB 2 Refills Prov[facility]. 01/13/17 Reported Medications Ferrous Sulfate* (Ferrous Sulfate*) 325 Mg Tabec, 325 MG PO DAILY, TAB 02/14/17 Rivaroxaban* (Xarelto*) 15 Mg Tablet, 15 MG PO BID, TAB 01/29/17 Hydralazine Hcl* (Hydralazine Hcl*) 50 Mg Tab, 50 MG PO Q8, #90 TAB 01/18/17 Aspirin* (Aspirin* EC) 81 Mg Tablet., 81 MG PO DAILY, TAB 12/15/16 Allergies Allergies: Coded Allergies: ibuprofen (Verified Allergy, Mild, 02/24/17) PMhx/Soc History of Surgery: No Anesthesia Reaction: No Hx Neurological Disorder: Yes (pt c/o constant headaches ) Hx Respiratory Disorders: Yes (PNA) Hx Psychiatric Problems: No Hx Miscellaneous Medical Probl: Yes (DM) Hx Alcohol Use: No Hx Substance Use: No Hx Tobacco Use: Yes Smoking Status: Former smoker Physical Exam Vitals Vital Signs Date Time Temp Pulse Resp B/P Pulse Ox O2 Delivery O2 Flow Rate FiO2 06/07/17 02:23 98.3 73 20 132/80 100 Room Air 06/06/17 22:15 99.0 89 22 152/91 97 Physical Exam INITIAL VITAL SIGNS: Reviewed by me GENERAL: The patient is well developed and appropriate for usual state of health in no apparent distress HEENT: Pupils equal, round, and reactive to light. EOMI. There is no scleral icterus. NECK: C-spine is soft and supple, there is no meningismus. There is no cervical lymphadenopathy. LUNGS: Clear to auscultation bilaterally. There are no rales, wheezes or rhonchi. HEART: Regular rate and rhythm, no murmurs, clicks, rubs or gallops. ABDOMEN: Soft, non-tender, non-distended. There are bowel sounds in all four quadrants. No rebound or guarding. EXTREMITIES: 1+ pitting edema in the bilateral lower extremities NEUROLOGICAL: The patient moves all four extremities with 5/5 strength. Cranial nerves II - XII are intact. Normal gait. Alert and oriented SKIN: There is no apparent rash or petechiae. HEME/LYMPHATIC: There is no evidence of excessive bruising or lymphedema. PSYCHIATRIC: The patient does not appear anxious or depressed. Result Diagram: 06/07/179906/07/1799 Results 24 hrs Laboratory Tests Test 06/07/17 01:00 White Blood Count 6.610^3/ul Red Blood Count 3.5910^6/ul Hemoglobin 9.5g/dl Hematocrit 30.4% Mean Corpuscular Volume 84.7fl Mean Corpuscular Hemoglobin 26.5pg Mean Corpuscular Hemoglobin Concent 31.3g/dl Red Cell Distribution Width 14.2% Platelet Count 50330^3/UL Mean Platelet Volume 11.5fl Neutrophils % 56.6% Lymphocytes % 29.5% Monocytes % 8.4% Eosinophils % 4.7% Basophils % 0.3% Nucleated Red Blood Cells % 0.0/100WBC Neutrophils # 3.810^3/ul Lymphocytes # 2.010^3/ul Monocytes # 0.610^3/ul Eosinophils # 0.310^3/ul Basophils # 0.010^3/ul Nucleated Red Blood Cells # 0.010^3/ul Sodium Level 140mmol/L Potassium Level 4.1mmol/L Chloride Level 108mmol/L Carbon Dioxide Level 25mmol/L Anion Gap 11 Blood Urea Nitrogen 35mg/dl Creatinine 2.35mg/dl Glucose Level 318mg/dl Lactic Acid Level 1.4mmol/L Calcium Level 8.2mg/dl Current Medications Medications (Trade) Dose Ordered Sig/Kuldeep Route PRN Reason Start Time Stop Time Status Last Admin Dose Admin Acetaminophen/ Hydrocodone Bitart ([place] (5/325)) 1 tab ONCE ONCE PO 06/07/17 01:30 06/07/17 01:31 DC 06/07/17 01:15 Furosemide (Lasix) 20 mg ONCE ONCE IV 06/07/17 02:30 06/07/17 02:31 06/07/17 02:21 Procedures/MDM EKG: Rate/Rhythm: [Normal Sinus Rhythm] QRS, ST, T-waves: [No changes consistent w/ acute ischemia] Impression: [No evidence of ischemia or arrhythmia] Chest X-ray 1V Interpreted by me: Soft Tissue: No acute abnormalities Bones: No acute abnormalities Mediastinum/Cardiac Silhouette/Lungs: [No acute abnormalities] This 42-year-old male presents to the ER for evaluation of shortness of breath. When I evaluated this patient this patient's pulse ox is 100% on room air. He was hemodynamically stable, nontoxic appearing. He states that he had started azithromycin for pneumonia which was diagnosed with yesterday. The patient had a chest x-ray which did not show any sign of pneumonia here in the ER. Lab work was obtained and the patient does have acute kidney injury however no signs of acute renal failure at this time. The patient did have 1+ pitting edema in the bilateral lower extremities and was given 20 mg of Lasix. The patient was advised to follow-up with his primary care physician as an outpatient he verbalized understanding. Departure Diagnosis: Primary Impression: Shortness of breath Additional Impressions: Acute kidney injury Normocytic anemia Condition: Stable ALYCIA DIAZ DO Jun 07, 2017 02:32
== END 2017-06-07 02:55 | disposition home or self-care (01) ==
LOC: E/R 22:07
DX: R06.02 Shortness of breath (principal); N28.9 Disorder of kidney and ureter, unspecified; D64.9 Anemia, unspecified; E11.9 Type 2 diabetes mellitus without complications; Z87.891 Personal history of nicotine dependence; Z79.82 Long term (current) use of aspirin
CPT/HCPCS: 36415; 71010; 80048; 83605; 85025; 96374; J1940; Z7502; Z7610

== ENCOUNTER 2017-06-10 00:29 | Emergency (ER) | payer OTHER ==
[~2017-06-10] VITALS: Ht 175.3 cm; Wt 120.0 kg
[2017-06-10 00:45] VITALS: Ht 175.3 cm; Wt 120.0 kg
[2017-06-10 03:18] VITALS: TEMP 98.4
[2017-06-10] MEDS ORDERED: BUMETANIDE 1 MG INJ IM ONE (03:30)
[2017-06-10] MEDS ORDERED: BUMETANIDE 1 MG INJ IV ONE (04:00)
[2017-06-10 04:05] LABS: BASOPHILS % 0.3 % (0.0-2.0); EOSINOPHILS # 0.2 10^3/ul (0.0-0.5); EOSINOPHILS % 3.4 % (0.0-7.0); HEMATOCRIT 27.6 % (42.0-52.0); HEMOGLOBIN 8.7 g/dl (14.0-18.0); LYMPHOCYTES # 1.4 10^3/ul (0.8-2.9); MEAN CORPUSCULAR HGB CONC 31.5 g/dl (32.0-37.0); MEAN CORPUSCULAR VOLUME 85.7 fl (82.0-101.0); MEAN PLATELET VOLUME 11.4 fl (7.4-10.4); MONOCYTE # 0.6 10^3/ul (0.3-0.9); MONOCYTES % 10.8 % (0.0-11.0); NEUTROPHIL # 3.6 10^3/ul (1.6-7.5); PLATELET COUNT 215 10^3/UL (140-415); RED BLOOD COUNT 3.22 10^6/ul (4.70-6.10); RED CELL DISTRIBUTION WIDTH 13.8 % (11.5-14.5); WHITE BLOOD COUNT 5.9 10^3/ul (4.8-10.8)
[2017-06-10 04:21] LABS: ALBUMIN 2.5 g/dl (3.3-4.9); ALBUMIN/GLOBULIN RATIO 1.13; BILIRUBIN,INDIRECT 0.3 mg/dl (0-1.1); BILIRUBIN,TOTAL 0.3 mg/dl (0.2-1.3); CALCIUM 8.1 mg/dl (8.4-10.2); CREATININE 2.39 mg/dl (0.61-1.24); POTASSIUM 4.6 mmol/L (3.5-5.1); TOTAL PROTEIN 4.7 g/dl (6.1-8.1)
[2017-06-10] MEDS ORDERED: INSULIN REGULAR, HUMAN 100 UNIT/1 ML 3ML VIAL SC ONE (04:30)
--- NOTE | 2017-06-10 04:32 | ERD ---
ER Documentation Chief Complaint Date/Time DATE: 06/10/17 TIME: 04:29 Chief Complaint bilateral leg swelling x 2 days HPI This is a 42-year-old male with poorly controlled diabetes, partial amputations of the lower extremities who presents to the emergency room for evaluation of lower extremity swelling for the past 2 days. I did see this patient for a few days ago for similar complaints and the patient was given Lasix. The patient states that the Lasix is not working and he is getting worsening swelling in his lower extremities. He denies any chest pain or shortness of breath at this time. ROS All systems reviewed and are negative except as per history of present illness. Medications Home Meds Active Scripts Furosemide* (Lasix*) 40 Mg Tablet, 40 MG PO DAILY, #20 TAB Prov:LU GILLILAND MD 05/09/17 Hydrocodone/Acetaminophen ([place] 10-325 Tablet) 1 Each Tablet, 1 TAB PO Q6H Y for PAIN, #7 TAB Prov:ELIZABETH HULL PA-C 03/06/17 Hydrocodone/Acetaminophen ([place] 10-325 Tablet) 1 Each Tablet, 1 TAB PO Q6H Y for PAIN, #10 TAB Prov:RODDY KHALIL MD 02/24/17 Hydrocodone/Acetaminophen ([place] 10-325 Tablet) 1 Each Tablet, 1 TAB PO Q12 Y for PAIN, #15 TAB Prov:ALYCIA DIAZ DO 02/14/17 Sennosides* (Senna Lax*) 8.6 Mg Tablet, 1 TAB PO Q12H Y for CONSTIPATION, #20 TAB Prov:GLORIA GUADARRAMA 02/07/17 Gabapentin* (Gabapentin*) 300 Mg Capsule, 300 MG PO BID, #60 CAP Prov:SOILA REEDER NP 02/01/17 Amlodipine Besylate* (Norvasc*) 5 Mg Tablet, 5 MG PO DAILY for 30 Days, TAB Prov:MERARY SAHU MD 01/29/17 Ondansetron (Ondansetron Odt) 4 Mg Tab.rapdis, 4 MG PO Q6H Y for NAUSEA AND/OR VOMITING, #30 TAB Prov:TAJ MIRANDA MD 01/25/17 Insulin Glargine* (Lantus*) 100 Unit/Ml Soln, 25 UNIT SC DAILY@20 for 30 Days Prov:CLARITA VERMA S. 01/19/17 Docusate Sodium (Dok) 100 Mg Capsule, 100 MG PO BID, #60 CAP Prov:CLARITA VERMA S. 01/19/17 Rivaroxaban* (Xarelto*) 20 Mg Tablet, 20 MG PO WITH DINNER for 30 Days, TAB Prov:CLARITA VERMA S. 01/19/17 Furosemide* (Furosemide*) 40 Mg Tablet, 40 MG PO DAILY for 30 Days, TAB [facility] 01/13/17 Famotidine* (Famotidine*) 20 Mg Tablet, 20 MG PO Q12 for 30 Days, TAB 2 [facility] 01/13/17 Tamsulosin Hcl* (Flomax*) 0.4 Mg Cap.er.24h, 0.4 MG PO BID for 30 Days, CAP 1 Refill [facility] 01/13/17 Cholecalciferol* (Vitamin D3*) 1,000 Unit Tablet, 1000 UNIT PO DAILY for 30 Days , TAB 2 Refills [facility] 01/13/17 Lisinopril* (Lisinopril*) 40 Mg Tablet, 40 MG PO DAILY, #30 TAB 2 Refills [facility] 01/13/17 Potassium Chloride* (Potassium Chloride*) 20 Meq Tablet.er, 20 MEQ PO DAILY for 30 Days, TAB.SA 2 Refills [facility] 01/13/17 Carvedilol* (Carvedilol*) 25 Mg Tablet, 25 MG PO BID, #60 TAB 2 Refills [facility]. 01/13/17 Reported Medications Ferrous Sulfate* (Ferrous Sulfate*) 325 Mg Tabec, 325 MG PO DAILY, TAB 02/14/17 Rivaroxaban* (Xarelto*) 15 Mg Tablet, 15 MG PO BID, TAB 01/29/17 Hydralazine Hcl* (Hydralazine Hcl*) 50 Mg Tab, 50 MG PO Q8, #90 TAB 01/18/17 Aspirin* (Aspirin* EC) 81 Mg Tablet.dr, 81 MG PO DAILY, TAB 12/15/16 Allergies Allergies: Coded Allergies: ibuprofen (Verified Allergy, Mild, 02/24/17) PMhx/Soc History of Surgery: No Anesthesia Reaction: No Hx Neurological Disorder: Yes (pt c/o constant headaches ) Hx Respiratory Disorders: Yes (PNA) Hx Psychiatric Problems: No Hx Miscellaneous Medical Probl: Yes (DM) Hx Alcohol Use: No Hx Substance Use: No Hx Tobacco Use: Yes Smoking Status: Current every day smoker Physical Exam Vitals Vital Signs Date Time Temp Pulse Resp B/P Pulse Ox O2 Delivery O2 Flow Rate FiO2 06/10/17 03:18 98.4 92 20 190/92 97 Room Air 06/10/17 00:45 98.3 106 20 210/99 95 Physical Exam Const: No acute distress Head: Atraumatic Eyes: Normal Conjunctiva ENT: Normal External Ears, Nose and Mouth. Neck: Full range of motion..~ No meningismus. Resp: Clear to auscultation bilaterally Cardio: Regular rate and rhythm, no murmurs Abd: Soft, non tender, non distended. Normal bowel sounds Skin: No petechiae or rashes Back: No midline or flank tenderness Ext: Partial amputation of toe on left foot, 1+ pitting edema to bilateral lower extremities Neur: Awake and alert Psych: Normal Mood and Affect Result Diagram: 06/10/17 0340 06/10/17 0340 Results 24 hrs Laboratory Tests Test 06/10/17 03:40 White Blood Count 5.910^3/ul Red Blood Count 3.2210^6/ul Hemoglobin 8.7g/dl Hematocrit 27.6% Mean Corpuscular Volume 85.7fl Mean Corpuscular Hemoglobin 27.0pg Mean Corpuscular Hemoglobin Concent 31.5g/dl Red Cell Distribution Width 13.8% Platelet Count 93011^3/UL Mean Platelet Volume 11.4fl Neutrophils % 61.0% Lymphocytes % 24.0% Monocytes % 10.8% Eosinophils % 3.4% Basophils % 0.3% Nucleated Red Blood Cells % 0.0/100WBC Neutrophils # 3.610^3/ul Lymphocytes # 1.410^3/ul Monocytes # 0.610^3/ul Eosinophils # 0.210^3/ul Basophils # 0.010^3/ul Nucleated Red Blood Cells # 0.010^3/ul Sodium Level 141mmol/L Potassium Level 4.6mmol/L Chloride Level 107mmol/L Carbon Dioxide Level 27mmol/L Anion Gap 12 Blood Urea Nitrogen 34mg/dl Creatinine 2.39mg/dl Glucose Level 404mg/dl Calcium Level 8.1mg/dl Total Bilirubin 0.3mg/dl Direct Bilirubin 0.00mg/dl Indirect Bilirubin 0.3mg/dl Aspartate Amino Transf (AST/SGOT) 20IU/L Alanine Aminotransferase (ALT/SGPT) 39IU/L Alkaline Phosphatase 170IU/L Total Protein 4.7g/dl Albumin 2.5g/dl Globulin 2.20g/dl Albumin/Globulin Ratio 1.13 Current Medications Medications (Trade) Dose Ordered Sig/Kuldeep Route PRN Reason Start Time Stop Time Status Last Admin Dose Admin Bumetanide (Bumex) 1 mg NOW ONCE IM 06/10/17 03:30 06/10/17 03:34 DC Bumetanide (Bumex) 1 mg NOW ONCE IV 06/10/17 04:00 06/10/17 04:01 DC 06/10/17 04:07 Insulin Human Regular (Humulin R) 12 unit ONCE ONCE SC 06/10/17 04:30 06/10/17 04:31 Procedures/MDM This 42-year-old presents to the emergency room for the second time this week for evaluation of leg swelling. The patient underwent up last week which does not show any acute signs of infection. I did reobtain the basic metabolic panel on this patient to assess for his creatinine creatinine is at his baseline. The patient was given 1 mg of Bumex IV. I advised him to discontinue use of Lasix if it is not working and he will be given a prescription for Bumex and instructions to follow-up with his primary care physician. The patient did have a blood sugar greater than 400 and was given subcutaneous insulin Departure Diagnosis: Primary Impression: Bilateral leg edema Additional Impression: Uncontrolled diabetes mellitus Condition: Stable ALYCIA DIAZ DO Jun 10, 2017 04:31
[2017-06-10] MEDS ORDERED: BUME1TAB18 PO (04:38)
[2017-06-10 05:04] VITALS: BP 158/87; PULSE 86; RESP 20
== END 2017-06-10 05:21 | disposition home or self-care (01) ==
LOC: E/R 00:29
DX: R60.0 Localized edema (principal); E11.9 Type 2 diabetes mellitus without complications; F17.210 Nicotine dependence, cigarettes, uncomplicated; Z79.01 Long term (current) use of anticoagulants; Z79.4 Long term (current) use of insulin; Z79.82 Long term (current) use of aspirin
CPT/HCPCS: 80053; 85025; 96372; 96374; J1815; Z7502; Z7610

== ENCOUNTER 2017-08-01 20:35 | Inpatient (IN) | payer OTHER ==
[~2017-08-01] VITALS: Ht 172.7 cm; Wt 111.5 kg
[~2017-08-01 20:35] MED LIST changes: +BUME1TAB18 PO; -RIVA20TA PO; +RIVA20TA5 PO
[2017-08-01 20:48] VITALS: Ht 172.7 cm; Wt 111.5 kg
--- NOTE | 2017-08-01 22:52 | ERD ---
ER Documentation Chief Complaint Chief Complaint CP since yesterday; cordell leg swelling, pt having cough x 2 days HPI The patient is a 42-year-old male, presenting to the ER because of intermittent substernal chest pain that began 2 days ago. He had similar symptoms previously , no aggravating or relieving factor. He complains of subjective fever, intermittent cough for the last 2 days. He complains of orthopnea, denies PND complains of chronic bilateral leg edema. He was seen in the ER multiple times for bilateral leg edema and discharged with Bumex. He denies abdominal pain, vomiting, dysuria, diarrhea. He does not smoke nor drink Past medical history: Tension, diabetes mellitus, dyslipidemia, BPH, history of DVT was on Xarelto for a few months. Past surgical history: Left great toe amputation ROS All systems reviewed and are negative except as per history of present illness. Medications Home Meds Active Scripts Furosemide* (Lasix*) 40 Mg Tablet, 40 MG PO DAILY, #20 TAB Prov:LU GILLILAND MD 05/09/17 Cholecalciferol* (Vitamin D3*) 1,000 Unit Tablet, 1000 UNIT PO DAILY for 30 Days , TAB 2 Refills Prov:LEXII REED Marek 01/13/17 Lisinopril* (Lisinopril*) 40 Mg Tablet, 40 MG PO DAILY, #30 TAB 2 Refills Prov:LEXII REED . 01/13/17 Carvedilol* (Carvedilol*) 25 Mg Tablet, 25 MG PO BID, #60 TAB 2 Refills Prov:LEXII REED Marek 01/13/17 Reported Medications Amlodipine Besylate* (Amlodipine Besylate*) 10 Mg Tablet, 10 MG PO QHS, #30 TAB 08/01/17 Atorvastatin* (Atorvastatin*) 80 Mg Tablet, 80 MG PO QHS, #30 TAB 08/01/17 Potassium Chloride* (Potassium Chloride*) 20 Meq Tablet.er, 20 MEQ PO DAILY, TAB.SA 08/01/17 Hydralazine Hcl* (Hydralazine Hcl*) 100 Mg Tablet, 100 MG PO Q8, #90 TAB 08/01/17 Ezetimibe* (Zetia*) 10 Mg Tablet, 10 MG PO DAILY, TAB 08/01/17 Insulin Glargine* (Lantus*) 100 Unit/Ml Soln, 30 UNIT SC QHS, #1 VIAL 08/01/17 Oxycodone HCl/Acetaminophen (Percocet 5-325 mg Tablet) 1 Each Tablet, 1 EACH PO Q6H, TAB 08/01/17 Discontinued Reported Medications Ferrous Sulfate* (Ferrous Sulfate*) 325 Mg Tabec, 325 MG PO DAILY, TAB 02/14/17 Rivaroxaban* (Xarelto*) 15 Mg Tablet, 15 MG PO BID, TAB 01/29/17 Hydralazine Hcl* (Hydralazine Hcl*) 50 Mg Tab, 50 MG PO Q8, #90 TAB 01/18/17 Aspirin* (Aspirin* EC) 81 Mg Tablet.dr, 81 MG PO DAILY, TAB 12/15/16 Discontinued Scripts Bumetanide* (Bumetanide*) 1 Mg Tablet, 1 MG PO DAILY for 10 Days, TAB Prov:ALYCIA DIAZ DO 06/10/17 Hydrocodone/Acetaminophen ([place]gden 10-325 Tablet) 1 Each Tablet, 1 TAB PO Q6H Y for PAIN, #7 TAB Prov:ELIZABETH HULL PA-C 03/06/17 Hydrocodone/Acetaminophen ([place]gden 10-325 Tablet) 1 Each Tablet, 1 TAB PO Q6H Y for PAIN, #10 TAB Prov:RODDY KHALIL MD 02/24/17 Hydrocodone/Acetaminophen ([place] 10-325 Tablet) 1 Each Tablet, 1 TAB PO Q12 Y for PAIN, #15 TAB Prov:ALYCIA DIAZ DO 02/14/17 Sennosides* (Senna Lax*) 8.6 Mg Tablet, 1 TAB PO Q12H Y for CONSTIPATION, #20 TAB Prov:GLORIA GUADARRAMA 02/07/17 Gabapentin* (Gabapentin*) 300 Mg Capsule, 300 MG PO BID, #60 CAP Prov:SOILA REEDER NP 02/01/17 Amlodipine Besylate* (Norvasc*) 5 Mg Tablet, 5 MG PO DAILY for 30 Days, TAB Prov:MERARY SAHU MD 01/29/17 Ondansetron (Ondansetron Odt) 4 Mg Tab.rapdis, 4 MG PO Q6H Y for NAUSEA AND/OR VOMITING, #30 TAB Prov:TAJ MIRANDA MD 01/25/17 Insulin Glargine* (Lantus*) 100 Unit/Ml Soln, 25 UNIT SC DAILY@20 for 30 Days Prov:CLARITA VERMA S. 01/19/17 Docusate Sodium (Dok) 100 Mg Capsule, 100 MG PO BID, #60 CAP Prov:CLARITA VERMA S. 01/19/17 Rivaroxaban* (Xarelto*) 20 Mg Tablet, 20 MG PO WITH DINNER for 30 Days, TAB Prov:CLARITA VERMA S. 01/19/17 Furosemide* (Furosemide*) 40 Mg Tablet, 40 MG PO DAILY for 30 Days, TAB Prov:JAS REEDO M. 01/13/17 Famotidine* (Famotidine*) 20 Mg Tablet, 20 MG PO Q12 for 30 Days, TAB 2 Refills Prov:LEXII REED M. 01/13/17 Tamsulosin Hcl* (Flomax*) 0.4 Mg Cap.er.24h, 0.4 MG PO BID for 30 Days, CAP 1 Refill Prov:LEXII REED . 01/13/17 Potassium Chloride* (Potassium Chloride*) 20 Meq Tablet.er, 20 MEQ PO DAILY for 30 Days, TAB.SA 2 Refills Prov:LEXII REED M. 01/13/17 Allergies Allergies: Coded Allergies: ibuprofen (Verified Allergy, Mild, 08/01/17) PMhx/Soc History of Surgery: No Anesthesia Reaction: No Hx Neurological Disorder: Yes (pt c/o constant headaches ) Hx Respiratory Disorders: Yes (PNA) Hx Psychiatric Problems: No Hx Miscellaneous Medical Probl: Yes (DM) Hx Alcohol Use: No Hx Substance Use: No Hx Tobacco Use: Yes Physical Exam Vitals Vital Signs Date Time Temp Pulse Resp B/P Pulse Ox O2 Delivery O2 Flow Rate FiO2 08/01/17 22:47 98.7 94 20 198/110 97 Room Air 08/01/17 20:48 98.7 93 20 197/92 97 Physical Exam Const: No acute distress. Head: Atraumatic. Eyes: Normal Conjunctiva. ENT: Normal External Ears, Nose and Mouth. Neck: Full range of motion. No meningismus. Resp: Clear to auscultation bilaterally. Cardio: Regular rate and rhythm. Abd: Soft, non distended, normal bowel sounds, non tender. Skin: No petechiae or rashes. Back: No midline or flank tenderness. Ext: Bilateral leg edema, mild bilateral calf tenderness Neur: Awake and alert. No focal deficit Psych: Normal Mood and Affect. Result Diagram: 08/01/17 2300 08/01/17 230 Results 24 hrs Laboratory Tests Test 08/01/17 23:00 White Blood Count 5.110^3/ul Red Blood Count 3.5010^6/ul Hemoglobin 9.6g/dl Hematocrit 28.3% Mean Corpuscular Volume 80.9fl Mean Corpuscular Hemoglobin 27.4pg Mean Corpuscular Hemoglobin Concent 33.9g/dl Red Cell Distribution Width 13.2% Platelet Count 02462^3/UL Mean Platelet Volume 10.8fl Neutrophils % 62.7% Lymphocytes % 20.0% Monocytes % 13.2% Eosinophils % 3.1% Basophils % 0.4% Nucleated Red Blood Cells % 0.0/100WBC Neutrophils # 3.210^3/ul Lymphocytes # 1.010^3/ul Monocytes # 0.710^3/ul Eosinophils # 0.210^3/ul Basophils # 0.010^3/ul Nucleated Red Blood Cells # 0.010^3/ul Prothrombin Time 12.5Sec Prothrombin Time Ratio 1.0 INR International Normalized Ratio 0.93 Activated Partial Thromboplast Time 66.5Sec Sodium Level 137mmol/L Potassium Level 3.5mmol/L Chloride Level 105mmol/L Carbon Dioxide Level 29mmol/L Anion Gap 7 Blood Urea Nitrogen 23mg/dl Creatinine 1.78mg/dl Glucose Level 240mg/dl Calcium Level 8.6mg/dl Total Bilirubin 0.7mg/dl Direct Bilirubin 0.00mg/dl Indirect Bilirubin 0.7mg/dl Aspartate Amino Transf (AST/SGOT) 32IU/L Alanine Aminotransferase (ALT/SGPT) 46IU/L Alkaline Phosphatase 108IU/L Troponin I < 0.012ng/ml B-Type Natriuretic Peptide 4060PG/ML Total Protein 5.7g/dl Albumin 2.7g/dl Globulin 3.00g/dl Albumin/Globulin Ratio 0.90 Current Medications Medications (Trade) Dose Ordered Sig/Kuldeep Route PRN Reason Start Time Stop Time Status Last Admin Dose Admin Furosemide (Lasix) 40 mg ONCE ONCE IV 08/02/17 01:30 08/02/17 01:31 Aspirin (Aspirin) 162 mg ONCE ONCE PO 08/02/17 01:30 08/02/17 01:31 Nitroglycerin (Nitroglycerin 2% Oint) 1 inch ONCE ONCE TD 08/02/17 01:30 08/02/17 01:31 Procedures/MDM EKG: Read by emergency physician Rate/Rhythm: Normal Sinus Rhythm 93 beats/min QRS, ST, T-waves: No ST elevation, no T inversion, artifacts Impression: Abnormal EKG [place] [address] Radiology Main Line: [phone] DIAGNOSTIC IMAGING REPORT Patient: MERVAT BYRD : 1975 Age: 42 Sex: M MR #: [id number] DOS: 08/01/17 2307 Ordering MD: RODDY KHALIL MD Location: E/R Room/Bed: PROCEDURE: US Lower extremity Venous bilateral. CLINICAL INDICATION: Shortness of breath, lower extremity edema TECHNIQUE: Multiple sonographic images of the bilateral lower extremity deep venous system was obtained utilizing grayscale, color-flow, compressive sonography and doppler imaging with augmentation. The images were reviewed on a PACS workstation. COMPARISON: 01/25/2017 and 01/08/2017 FINDINGS: There is normal compressibility and flow within bilateral common femoral, femoral, popliteal, posterior tibial and peroneal veins. Soft tissue edema is seen in the right calf and left calf. IMPRESSION: No sonographic evidence for bilateral lower extremity deep venous thrombosis. RPTAT: HJES .Jordy Daniel MD, MD Date Time Electronically viewed and signed by .Jordy Daniel MD, MD on 08/01/2017 23:56 .S/ CC: RODDY KHALIL MD [place] [address] Radiology Main Line: [phone] DIAGNOSTIC IMAGING REPORT Patient: MERVAT BYRD : 1975 Age: 42 Sex: M MR #: [id number] DOS: 08/01/17 2307 Ordering MD: RODDY KHALIL MD Location: E/R Room/Bed: PROCEDURE: Portable chest x-ray. CLINICAL INDICATION: Shortness of breath. TECHNIQUE: Portable AP view of the chest. COMPARISON: 05/09/2017. FINDINGS: No pulmonary edema or conolidation is identified. The cardiac silhouette is magnified. No pleural effusion is seen. There is no pneumothorax. IMPRESSION: 1. No evidence of acute cardiopulmonary disease. RPTAT: HTAR .Jaspal Deleon MD, MD Date Time Electronically viewed and signed by .Jaspal Deleon MD, MD on 08/02/2017 00:19 .R/ CC: RODDY KHALIL MD MEDICAL MAKING DECISION: The patient is a 42-year-old male, presenting with new chest pain, acute CHF, acute kidney injury. He was treated with Lasix 40 mg IV for acute CHF, ASA 160 mg p.o. and 1 inch of nitroglycerin ointment to the chest wall for acute chest pain with good response The differential diagnoses considered include but are not limited to acute coronary syndrome, acute myocardial infarction, pericarditis, pulmonary embolism , aortic dissection, pneumonia, pleural effusion, pneumothorax, GERD, chest wall pain. Departure Diagnosis: Primary Impression: Chest pain Additional Impressions: CHF (congestive heart failure) Acute kidney injury Anemia Condition: Stable Comments I discussed the findings with the patient. I discussed the patient with the on- call hospitalist Dr. Regan at 1 AM who was made aware of the lab, the treatment, the patient condition. The patient is admitted to [facility] Disclaimer: Inadvertent spelling and grammatical errors are likely due to EHR/ dictation software use and do not reflect on the overall quality of patient care. Also, please note that the electronic time recorded on this note does not necessarily reflect the actual time of the patient encounter. RODDY KHALIL MD Aug 01, 2017 22:52
[2017-08-01 23:19] LABS: BASOPHILS % 0.4 % (0.0-2.0); EOSINOPHILS # 0.2 10^3/ul (0.0-0.5); EOSINOPHILS % 3.1 % (0.0-7.0); HEMATOCRIT 28.3 % (42.0-52.0); HEMOGLOBIN 9.6 g/dl (14.0-18.0); MEAN CORPUSCULAR HEMOGLOBIN 27.4 pg (29.0-33.0); MEAN CORPUSCULAR HGB CONC 33.9 g/dl (32.0-37.0); MEAN CORPUSCULAR VOLUME 80.9 fl (82.0-101.0); MEAN PLATELET VOLUME 10.8 fl (7.4-10.4); MONOCYTE # 0.7 10^3/ul (0.3-0.9); MONOCYTES % 13.2 % (0.0-11.0); NEUTROPHIL # 3.2 10^3/ul (1.6-7.5); NEUTROPHILS % 62.7 % (39.0-77.0); PLATELET COUNT 212 10^3/UL (140-415); RED CELL DISTRIBUTION WIDTH 13.2 % (11.5-14.5); WHITE BLOOD COUNT 5.1 10^3/ul (4.8-10.8)
[2017-08-01] MEDS ORDERED: OXYC-279 PO (23:31)
[2017-08-01] MEDS ORDERED: LANT3I SC (23:33)
[2017-08-01] MEDS ORDERED: EZET10TA3 PO (23:33)
[2017-08-01] MEDS ORDERED: HYDR100T25 PO (23:34)
[2017-08-01] MEDS ORDERED: POTA20TA96 PO (23:35)
[2017-08-01] MEDS ORDERED: ATOR80TA75 PO (23:36)
[2017-08-01] MEDS ORDERED: AMLO-147 PO (23:37)
[2017-08-01 23:40] LABS: INR 0.93; PROTIME 12.5 Sec (11.9-14.9)
[2017-08-01 23:42] LABS: PARTIAL THROMBOPLASTIN TIME 66.5 Sec (25.0-35.0)
[2017-08-01 23:46] LABS: ALANINE AMINOTRANSFERASE 46 IU/L (13-69); ALBUMIN 2.7 g/dl (3.3-4.9); ALKALINE PHOSPHATASE 108 IU/L (42-121); ANION GAP 7 (8-16); ASPARTATE AMINO TRANSFERASE 32 IU/L (15-46); BILIRUBIN,INDIRECT 0.7 mg/dl (0-1.1); BILIRUBIN,TOTAL 0.7 mg/dl (0.2-1.3); BLOOD UREA NITROGEN 23 mg/dl (7-20); CALCIUM 8.6 mg/dl (8.4-10.2); CARBON DIOXIDE 29 mmol/L (21-31); CHLORIDE 105 mmol/L (97-110); CREATININE 1.78 mg/dl (0.61-1.24); GLUCOSE 240 mg/dl (70-220); POTASSIUM 3.5 mmol/L (3.5-5.1); SODIUM 137 mmol/L (135-144); TOTAL PROTEIN 5.7 g/dl (6.1-8.1)
--- NOTE | 2017-08-01 23:57 | RADRPT ---
PROCEDURE: US Lower extremity Venous bilateral. CLINICAL INDICATION: Shortness of breath, lower extremity edema TECHNIQUE: Multiple sonographic images of the bilateral lower extremity deep venous system was obt ained utilizing grayscale, color-flow, compressive sonography and doppler imaging with augmentation. The images were reviewed on a PACS workstation. COMPARISON: 01/25/2017 and 01/08/2017 FINDINGS: There is normal compressibility and flow within bilateral common femoral, femoral, popliteal, microelectronics assembler ior tibial and peroneal veins. Soft tissue edema is seen in the right calf and left calf. IMPRESSION: No sonographic evidence for bilateral lower extremity deep venous thrombosis. RPTAT: HJES .Jordy Daniel MD, Date Time Electronically viewed and signed by .Jordy Daniel MD, on 08/01/2017 23:56 .S/
[2017-08-01 23:58] LABS: B-TYPE NATRIURETIC PEPTIDE 4060 PG/ML (0-125)
[2017-08-02] VITALS (12 sets, daily range): BP systolic 149–179; BP diastolic 77–93; PULSE 78–95; RESP 16–20; TEMP 98.7
[2017-08-02 00:06] LABS: TROPONIN-I < 0.012 ng/ml (0.00-0.12)
--- NOTE | 2017-08-02 00:19 | RADRPT ---
PROCEDURE: Portable chest x-ray. CLINICAL INDICATION: Shortness of breath. TECHNIQUE: Portable AP view of the chest. COMPARISON: 05/09/2017. FINDINGS: No pulmonary edema or conolidation is identified. The cardiac silhouette is magnified. No pleural effusion is seen. There is no pneumothorax. IMPRESSION: 1. No evidence of acute cardiopulmonary disease. RPTAT: HTAR .Jaspal Deleon MD, MD Date Time Electronically viewed and signed by .Jaspal Deleon MD, on 08/02/2017 00:19 .R/
[2017-08-02] MEDS ORDERED: ASPIRIN 81 MG TAB PO ONE (01:30)
[2017-08-02] MEDS ORDERED: NITROGLYCERIN 2% 1 GM OINT PKT TD ONE (01:30)
[2017-08-02] MEDS ORDERED: FUROSEMIDE 40 MG INJ IV ONE (01:30)
[2017-08-02] MEDS ORDERED: NITROGLYCERIN (SL) 0.4 MG TAB SL PRN (03:30)
[2017-08-02] MEDS ORDERED: GLUCAGON 1 MG INJ IM PRN (04:00)
[2017-08-02] MEDS ORDERED: DEXTROSE 50% 50 ML SYRINGE IV PRN ×2 (04:00)
[2017-08-02] MEDS ORDERED: GLUCOSE GEL 15 GRAM TUBE PO PRN ×2 (04:00)
[2017-08-02] MEDS ORDERED: GLUCOSE GEL 15 GRAM TUBE BUCCAL PRN (04:00)
[2017-08-02] MEDS: morphine 2 MG INJ IV PRN ×3 (04:14→21:15)
[2017-08-02] MEDS: OXYCODONE/ACETAMINOPHEN (5/325) TAB PO SCH ×4 (06:04→22:22)
[2017-08-02 07:34] LABS: BASOPHILS % 0.4 % (0.0-2.0); EOSINOPHILS # 0.1 10^3/ul (0.0-0.5); EOSINOPHILS % 2.7 % (0.0-7.0); HEMATOCRIT 25.5 % (42.0-52.0); HEMOGLOBIN 8.6 g/dl (14.0-18.0); LYMPHOCYTES # 1.2 10^3/ul (0.8-2.9); LYMPHOCYTES % 26.1 % (15.0-51.0); MEAN CORPUSCULAR HEMOGLOBIN 27.6 pg (29.0-33.0); MEAN CORPUSCULAR HGB CONC 33.7 g/dl (32.0-37.0); MEAN CORPUSCULAR VOLUME 81.7 fl (82.0-101.0); MEAN PLATELET VOLUME 11.4 fl (7.4-10.4); MONOCYTE # 0.6 10^3/ul (0.3-0.9); MONOCYTES % 13.7 % (0.0-11.0); NEUTROPHIL # 2.5 10^3/ul (1.6-7.5); NEUTROPHILS % 56.7 % (39.0-77.0); PLATELET COUNT 203 10^3/UL (140-415); RED BLOOD COUNT 3.12 10^6/ul (4.70-6.10); RED CELL DISTRIBUTION WIDTH 13.1 % (11.5-14.5); WHITE BLOOD COUNT 4.5 10^3/ul (4.8-10.8)
[2017-08-02 07:43] LABS: ALANINE AMINOTRANSFERASE 45 IU/L (13-69); ALBUMIN 2.4 g/dl (3.3-4.9); ALBUMIN/GLOBULIN RATIO 0.96; ALKALINE PHOSPHATASE 84 IU/L (42-121); ANION GAP 7 (8-16); ASPARTATE AMINO TRANSFERASE 25 IU/L (15-46); BILIRUBIN,INDIRECT 0.6 mg/dl (0-1.1); BILIRUBIN,TOTAL 0.6 mg/dl (0.2-1.3); BLOOD UREA NITROGEN 21 mg/dl (7-20); CALCIUM 8.1 mg/dl (8.4-10.2); CARBON DIOXIDE 29 mmol/L (21-31); CHLORIDE 108 mmol/L (97-110); CHOLESTEROL 97 mg/dl (100-200); CREATININE 1.69 mg/dl (0.61-1.24); GLUCOSE 165 mg/dl (70-220); POTASSIUM 3.2 mmol/L (3.5-5.1); SODIUM 141 mmol/L (135-144); TOTAL PROTEIN 4.9 g/dl (6.1-8.1)
[2017-08-02 07:54] LABS: TROPONIN-I < 0.012 ng/ml (0.00-0.12)
[2017-08-02] MEDS: INSULIN ASPART [NOVOLOG] 3 ML PEN SC SCH ×4 (08:18→21:00)
[2017-08-02] MEDS ORDERED: LISINOPRIL 20 MG TAB PO SCH (09:00)
[2017-08-02] MEDS ORDERED: FUROSEMIDE 40 MG TAB PO SCH (09:00)
[2017-08-02] MEDS: METHYLPREDNISOLONE 40 MG INJ IV SCH (09:35)
[2017-08-02] MEDS: CHOLECALCIFEROL 1,000 UNIT TAB PO SCH (09:36)
[2017-08-02] MEDS: EZETIMIBE 10 MG TAB PO SCH (09:36)
[2017-08-02] MEDS: GUAIFENESIN/DM 5ML CUP PO PRN ×2 (09:36→22:21)
[2017-08-02] MEDS: FUROSEMIDE 40 MG INJ IV SCH (09:37)
[2017-08-02] MEDS: POTASSIUM CHLORIDE (SR) 20 MEQ TAB PO SCH (09:37)
[2017-08-02] MEDS: hydrOXYzine HCL 25 MG TAB PO PRN (09:37)
[2017-08-02] MEDS: LEVOFLOXACIN 500MG/D5W (PMX) 100 ML IVPB SCH (09:38)
--- NOTE | 2017-08-02 09:40 | HP ---
Date/Time of Note Date/Time of Note DATE: 08/02/17 TIME: 09:25 Assessment/Plan VTE Prophylaxis VTE Prophylaxis Intervention: heparin Lines/Catheters Urinary Cath still in place: No Assessment/Plan Assessment/Plan ASSESSMENT 42-year-old male with a history of hypertension, type 2 diabetes, dyslipidemia, ventilator dependent respiratory failure, pneumonia, history of cocaine abuse, left Charcot foot, status post reconstruction in 2016, iron deficiency anemia, left lower extremity DVT, possible lumbar disc disease here was multiple complaints, including nonradiating chest pain, shortness of breath, productive cough, fever/shaking chills, low urine output, generalized weakness and difficulty ambulation due to deconditioning from previous hospitalizations. Chest x-ray was no active disease, lower extremity venous study negative for DVT and with labs showing a creatinine of 1.78, BNP 4000. PLAN -Continue telemetry monitoring -Rule out ACS -Supplemental oxygen, IV antibiotic, diuresis, bronchodilators and steroid given symptom of reactive airway disease, CHF, URI and probable early developing pneumonia. -Will consider CT chest if symptoms of shortness of breath, cough and chest pain persists or worsens -For bilateral lower extremity pitting edema, new be treated with IV Lasix. Will start him on Flomax for possible BPH even though his too young for this. Will obtain 2D echo and renal ultrasound -Physical therapy evaluation -Continue home medications with adjustment as needed HPI/ROS Admit Date/Time Admit Date/Time Aug 02, 2017 at 01:07 Hx of Present Illness This is a 42-year-old male with a history of hypertension, type 2 diabetes, dyslipidemia, ventilator dependent respiratory failure, pneumonia, history of cocaine abuse, left Charcot foot, status post reconstruction in 2016, iron deficiency anemia, left lower extremity DVT, possible lumbar disc disease. Patient presented to ER complaining of bilateral lower extremity swelling, shortness of breath, chest pain and cough times 3 days. Cough has been productive of whitish sputum. Patient also reported fever and shaking chills. He denied sick contacts or recent travel. Patient also reported that he has "weak urine". Patient has been admitted here multiple times including one time for multifocal pneumonia and respiratory failure requiring intubation. He said after his last hospitalization, he has been weak because of the prolonged stay. He said he now uses a walker to ambulate because of weakness. Chest pain is centered in the mid chest, described as congestion, is nonradiating. When he presented to the ER, blood pressure was 197/92 with a heart rate in the 90s. Chest x-ray was no active disease. Bilateral lower extremity venous study was negative for DVT. PMH/Family/Social Social History Smoking Status: Former smoker Exam/Review of Systems Vital Signs Vitals Vital Signs Date Time Temp Pulse Resp B/P Pulse Ox O2 Delivery O2 Flow Rate FiO2 08/02/17 08:00 85 08/02/17 07:55 98.5 16 165/79 95 08/02/17 01:30 Room Air Intake and Output 08/01/17 08/01/17 08/02/17 15:00 23:00 07:00 Intake Total 120 ml Output Total 900 ml Balance -780 ml Exam Constitutional: alert, oriented, well developed Head: atraumatic, normocephalic Eyes: EOMI, PERRL Respiratory: clear to auscultation Cardiovascular: regular rate and rhythm Gastrointestinal: non-tender, soft Extremities: other (Bilateral lower extremity pitting edema) Labs Result Diagram: 08/02/17 0610 08/02/17 0610 Medications Medications Current Medications Morphine Sulfate (morphine) 2 mg Q4H PRN IV PAIN LEVEL 4-7 Last administered on 08/02/17t 04:14; Admin Dose 2 MG; Start 08/02/17 at 03:30 Nitroglycerin (Nitroglycerin (Sl Tab) 0.4 Mg) 1 tab Q5M PRN SL ANGINA; Start 08/02/17 at 03:30 Miscellaneous Information 1 ea NOTE XX ; Start 08/02/17 at 04:00 Glucose (Glutose) 15 gm Q15M PRN PO DECREASED GLUCOSE; Start 08/02/17 at 04:00 Glucose (Glutose) 22.5 gm Q15M PRN PO DECREASED GLUCOSE; Start 08/02/17 at 04: 00 Dextrose (D50w Syringe) 25 ml Q15M PRN IV DECREASED GLUCOSE; Start 08/02/17 at 04:00 Dextrose (D50w Syringe) 50 ml Q15M PRN IV DECREASED GLUCOSE; Start 08/02/17 at 04:00 Glucagon (Glucagen) 1 mg Q15M PRN IM DECREASED GLUCOSE; Start 08/02/17 at 04:00 Glucose (Glutose) 15 gm Q15M PRN BUCCAL DECREASED GLUCOSE; Start 08/02/17 at 04 :00 Amlodipine Besylate (Norvasc) 10 mg QHS PO ; Start 08/02/17 at 21:00 Atorvastatin Calcium (Lipitor) 80 mg QHS PO ; Start 08/02/17 at 21:00 Carvedilol (Coreg) 25 mg BID PO ; Start 08/02/17 at 09:00 Cholecalciferol (Vitamin D) 1,000 unit DAILY PO ; Start 08/02/17 at 09:00 EZETIMIBE (Zetia) 10 mg DAILY PO ; Start 08/02/17 at 09:00 Hydralazine HCl (Apresoline) 100 mg Q8 PO Last administered on 08/02/17 06:05 ; Admin Dose 100 MG; Start 08/02/17 at 06:00 Lisinopril (Zestril) 40 mg DAILY PO ; Start 08/02/17 at 09:00 Oxycodone/ Acetaminophen (Percocet (5/ 325)) 1 tab Q6H PO Last administered on 08/02/17 06:04; Admin Dose 1 TAB; Start 08/02/17 at 05:00 Potassium Chloride (Klor-Con 20) 20 meq DAILY PO ; Start 08/02/17 at 09:00 Insulin Glargine (Lantus) 30 unit QHS SC ; Start 08/02/17 at 21:00 Guaifenesin/ Dextromethorphan 10 ml 10 ml Q4H PRN PO COUGH; Start 08/02/17 at 08:00 Levofloxacin/ Dextrose (Levaquin 500mg/ D5W 100 ml (Pmx)) 100 ml @ 100 mls/hr Q24H IVPB ; Start 08/02/17 at 09:00 Furosemide (Lasix) 40 mg DAILY IV ; Start 08/02/17 at 09:00 Methylprednisolone Sodium Succinate (Solu-Medrol) 40 mg DAILY IV ; Start at 09:00 Hydroxyzine HCl (Atarax) 25 mg Q6H PRN PO ITCHING; Start 08/02/17 at 09:00 GLORIA MATTHEW MD Aug 02, 2017 09:40
--- NOTE | 2017-08-02 12:23 | RADRPT ---
PROCEDURE: Retroperitoneal US. CLINICAL INDICATION: Renal insufficiency TECHNIQUE: Multiple sonographic images of the kidneys and retroperitoneum were obtained. The imag es were reviewed on a PACS workstation. COMPARISON: US ABDOMEN 12/18/2016 FINDINGS: The study is limited due to the patient's body habitus. The kidneys are normal in size, contour, cortical thickness and cortical echogenicity. The right kidney measures 12.7 cm. The left kidney measures 12 cm. No kidney stones are visualized. There is no evidence for hydronephrosis. The urinary bladder is normal. RPTAT: AA IMPRESSION: Unremarkable retroperitoneal ultrasound. .Cristino Dahl MD, MD Date Time Electronically viewed and signed by .Cristino Dahl MD, on 08/02/2017 12:23 .S/
[2017-08-02] MEDS: FAMOTIDINE 20 MG TAB PO SCH (14:34)
--- NOTE | 2017-08-02 14:55 | CONS ---
Date/Time of Note Date/Time of Note DATE: 08/02/17 TIME: 14:52 Assessment/Plan Assessment/Plan Additional Assessment/Plan 42 yo male with 1) Chest Pain 2) Acute Diastolic Heart failure 3) Uncontrolled HTN, Chronic, ? Compliance 4) History of DM 5) Likely MARIA DEL CARMEN on CKD stage unspecified 6) Anemia, Normocytic, likely chronic diease 7) Hx of DVT, No evidence on this admission Cont current Rx and plan Diuretic Rx IV Pt is diuresing monitor electrolytes, UO and renal fuctions Stable at thism time Check Mg in am Will cont to closely follow along with you. Consultation Date/Type/Reason Admit Date/Time Aug 02, 2017 at 01:07 Date of Consultation: Aug 02, 2017 Type of Consultation: Renal Reason for Consultation MARIA DEL CARMEN, CKD Referring Provider: CLARITA VERMA Hx of Present Illness 42-year-old male with a history of hypertension, type 2 diabetes, dyslipidemia, respiratory failure requiring ventilator in past, hx of pneumonia, history of cocaine abuse ? CKD, left Charcot foot, status post reconstruction in 2016, iron deficiency anemia, left lower extremity DVT S/p treatment with Xarelto presenting with nonradiating chest pain, shortness of breath, productive cough , fever/shaking chills, low urine output, generalized weakness and difficulty ambulation, CXR performed, lower extremity venous study negative for DVT and with creatinine of 1.78 and BNP 4000. Pt given IV lasix Rx and previous DILAN-I Discontinued. Nephrology consulted for MARIA DEL CARMEN on CKD. Constitutional: requiring O2 Past Medical History Medical History: congestive heart failure, deep vein thrombosis, diabetes, hypertension, renal disease Past Surgical History Past Surgical Hx: other Family History Significant Family History: no pertinent family hx Social History Alcohol Use: none Smoking Status: Former smoker Drug Use: cocaine Exam/Review of Systems Vital Signs Vitals Vital Signs Date Time Temp Pulse Resp B/P Pulse Ox O2 Delivery O2 Flow Rate FiO2 08/02/17 12:00 78 08/02/17 11:56 99.0 18 179/93 96 08/02/17 08:00 Nasal Cannula 2.0 Intake and Output 08/01/17 08/01/17 08/02/17 15:00 23:00 07:00 Intake Total 120 ml Output Total 900 ml Balance -780 ml Exam Constitutional: alert, oriented, No distress Eyes: EOMI Neck: supple, No jvd Respiratory: crackles/rales, No diminished breath sounds, No labored breathing Cardiovascular: edema, regular rate and rhythm Gastrointestinal: soft, tender, No rebound or guarding Musculoskeletal: nl extremities to inspection Extremities: edema Neurological: SUIT MAKER II-XII intact, nl mental status, No confused, No lethargic Skin: nl turgor, No diaphoresis, No rash or lesions Results Result Diagram: 08/02/17 0610 08/02/17 0610 Results 24 hrs Laboratory Tests Test 08/01/17 23:00 08/02/17 06:10 08/02/17 08:00 08/02/17 11:56 White Blood Count 5.1 4.5 L Red Blood Count 3.50 L 3.12 L Hemoglobin 9.6 L 8.6 L Hematocrit 28.3 L 25.5 L Mean Corpuscular Volume 80.9 L 81.7 L Mean Corpuscular Hemoglobin 27.4 L 27.6 L Mean Corpuscular Hemoglobin Concent 33.9 33.7 Red Cell Distribution Width 13.2 13.1 Platelet Count 212 203 Mean Platelet Volume 10.8 H 11.4 H Neutrophils % 62.7 56.7 Lymphocytes % 20.0 26.1 Monocytes % 13.2 H 13.7 H Eosinophils % 3.1 2.7 Basophils % 0.4 0.4 Nucleated Red Blood Cells % 0.0 0.0 Neutrophils # 3.2 2.5 Lymphocytes # 1.0 1.2 Monocytes # 0.7 0.6 Eosinophils # 0.2 0.1 Basophils # 0.0 0.0 Nucleated Red Blood Cells # 0.0 0.0 Prothrombin Time 12.5 Prothrombin Time Ratio 1.0 INR International Normalized Ratio 0.93 Activated Partial Thromboplast Time 66.5 H Sodium Level 137 141 Potassium Level 3.5 3.2 L Chloride Level 105 108 Carbon Dioxide Level 29 29 Anion Gap 7 L 7 L Blood Urea Nitrogen 23 H 21 H Creatinine 1.78 H 1.69 H Glucose Level 240 H 165 Calcium Level 8.6 8.1 L Total Bilirubin 0.7 0.6 Direct Bilirubin 0.00 0.00 Indirect Bilirubin 0.7 0.6 Aspartate Amino Transf (AST/SGOT) 32 25 Alanine Aminotransferase (ALT/SGPT) 46 45 Alkaline Phosphatase 108 84 Troponin I < 0.012 < 0.012 B-Type Natriuretic Peptide 4060 H Total Protein 5.7 L 4.9 L Albumin 2.7 L 2.4 L Globulin 3.00 2.50 Albumin/Globulin Ratio 0.90 0.96 Hemoglobin A1c 8.3 H Magnesium Level 2.0 Cholesterol Level 97 L Thyroid Stimulating Hormone (TSH) 3.720 Bedside Glucose 157 251 H Imaging Free Text/Dictation PROCEDURE: Portable chest x-ray. CLINICAL INDICATION: Shortness of breath. TECHNIQUE: Portable AP view of the chest. COMPARISON: 05/09/2017. FINDINGS: No pulmonary edema or conolidation is identified. The cardiac silhouette is magnified. No pleural effusion is seen. There is no pneumothorax. IMPRESSION: 1. No evidence of acute cardiopulmonary disease. Medications Medications Current Medications Morphine Sulfate (morphine) 2 mg Q4H PRN IV PAIN LEVEL 4-7 Last administered on 08/02/17 10:29; Admin Dose 2 MG; Start 08/02/17 at 03:30 Nitroglycerin (Nitroglycerin (Sl Tab) 0.4 Mg) 1 tab Q5M PRN SL ANGINA; Start 08/02/17 at 03:30 Miscellaneous Information 1 ea NOTE XX ; Start 08/02/17 at 04:00 Glucose (Glutose) 15 gm Q15M PRN PO DECREASED GLUCOSE; Start 08/02/17 at 04:00 Glucose (Glutose) 22.5 gm Q15M PRN PO DECREASED GLUCOSE; Start 08/02/17 at 04: 00 Dextrose (D50w Syringe) 25 ml Q15M PRN IV DECREASED GLUCOSE; Start 08/02/17 at 04:00 Dextrose (D50w Syringe) 50 ml Q15M PRN IV DECREASED GLUCOSE; Start 08/02/17 at 04:00 Glucagon (Glucagen) 1 mg Q15M PRN IM DECREASED GLUCOSE; Start 08/02/17 at 04:00 Glucose (Glutose) 15 gm Q15M PRN BUCCAL DECREASED GLUCOSE; Start 08/02/17 at 04 :00 Amlodipine Besylate (Norvasc) 10 mg QHS PO ; Start 08/02/17 at 21:00 Atorvastatin Calcium (Lipitor) 80 mg QHS PO ; Start 08/02/17 at 21:00 Cholecalciferol (Vitamin D) 1,000 unit DAILY PO Last administered on 08/02/17 09:36; Admin Dose 1,000 UNIT; Start 08/02/17 at 09:00 EZETIMIBE (Zetia) 10 mg DAILY PO Last administered on 08/02/17 09:36; Admin Dose 10 MG; Start 08/02/17 at 09:00 Hydralazine HCl (Apresoline) 100 mg Q8 PO Last administered on 08/02/17 14:34 ; Admin Dose 100 MG; Start 08/02/17 at 06:00 Lisinopril (Zestril) 40 mg DAILY PO Last administered on 08/02/17 09:37; Admin Dose 40 MG; Start 08/02/17 at 09:00; Status Future Hold Oxycodone/ Acetaminophen (Percocet (5/ 325)) 1 tab Q6H PO Last administered on 08/02/17 12:23; Admin Dose 1 TAB; Start 08/02/17 at 05:00 Potassium Chloride (Klor-Con 20) 20 meq DAILY PO Last administered on 09:37; Admin Dose 20 MEQ; Start 08/02/17 at 09:00 Insulin Glargine (Lantus) 30 unit QHS SC ; Start 08/02/17 at 21:00 Guaifenesin/ Dextromethorphan 10 ml 10 ml Q4H PRN PO COUGH Last administered on 08/02/17 09:36; Admin Dose 10 ML; Start 08/02/17 at 08:00 Levofloxacin/ Dextrose (Levaquin 500mg/ D5W 100 ml (Pmx)) 100 ml @ 100 mls/hr Q24H IVPB Last administered on 08/02/17 09:38; Admin Dose 100 MLS/HR; Start 08/02/17 at 09:00 Furosemide (Lasix) 40 mg DAILY IV Last administered on 08/02/17 09:37; Admin Dose 40 MG; Start 08/02/17 at 09:00 Methylprednisolone Sodium Succinate (Solu-Medrol) 40 mg DAILY IV Last administered on 08/02/17 09:35; Admin Dose 40 MG; Start 08/02/17 at 09:00 Hydroxyzine HCl (Atarax) 25 mg Q6H PRN PO ITCHING Last administered on 09:37; Admin Dose 25 MG; Start 08/02/17 at 09:00 Carvedilol (Coreg) 3.125 mg BID PO ; Start 08/02/17 at 21:00 Famotidine (Pepcid) 20 mg DAILY PO Last administered on 08/02/17t 14:34; Admin Dose 20 MG; Start 08/02/17 at 13:00 Procedures Procedures PROCEDURE: Retroperitoneal US. CLINICAL INDICATION: Renal insufficiency TECHNIQUE: Multiple sonographic images of the kidneys and retroperitoneum were obtained. The images were reviewed on a PACS workstation. COMPARISON: US ABDOMEN 12/18/2016 FINDINGS: The study is limited due to the patient's body habitus. The kidneys are normal in size, contour, cortical thickness and cortical echogenicity. The right kidney measures 12.7 cm. The left kidney measures 12 cm. No kidney stones are visualized. There is no evidence for hydronephrosis. The urinary bladder is normal. RPTAT: AA IMPRESSION: Unremarkable retroperitoneal ultrasound. .Cristino Dahl MD, MD Date Time Electronically viewed and signed by .Cristino Dahl MD, MD on 08/02/2017 12: 23 ROSEMARY PRUETT MD Aug 02, 2017 14:54
--- NOTE | 2017-08-02 15:54 | RADRPT ---
Echocardiogram Report Patient Name: MERVAT BYRD Gender: Male Date: 1975 Study Date: 02-Aug-2017 Cork Grinder: Richard Martel [facility] Location: [facility] - [place] Ref. Physician: GLORIA MATTHEW Quality: Adequate Procedures: Transthoracic echocardiogram with complete 2D, M-Mode, and doppler examination. Indications: Congestive Heart Failure. 2D/M Mode Doppler Measurement Value Normal Ranges Measurement Value Normal Ranges LVIDd 2D 5.3 3.5 - 5.6 cm AV Peak Nando 1.3 m/sec LVIDs 2D 2.9 2.1 - 4.1 cm AV Peak PG 6.8 mmHg LVPWd 2D 1.3 0.6 - 1.1 cm LVOT Peak Nando 1.1 m/sec IVSd 2D 1.4 0.6 - 1.1 cm LVOT Peak PG 4.6 mmHg AoR Diam 2D 2.9 2.0 - 3.7 cm MV E Peak Nando 0.8 m/sec EDV 2D 135.4 cm3 MV A Peak Nando 0.5 m/sec ESV 2D 23.7 cm3 MV E/A 1.5 LA Dimen 2D 4.1 2.3 - 4.0 cm MV Decel Time 136 msec MV Decel Hamilton 6 MV E/A 1.5 TR Peak Nando 2.4 m/sec TR Peak PG 22.4 mmHg RVSP 30.0 mmHg Findings Left Ventricle: Moderate concentric left ventricular hypertrophy. Ejection fraction is visually estimated at 5560 %. Right Ventricle: Normal right ventricular size. Normal right ventricular systolic function. Left Atrium: The left atrium is normal in size. Right Atrium: The right atrium is normal in size. Mitral Valve: Normal appearance of the mitral valve. Mild mitral annular calcification. Trace mitral regurgitation. Aortic Valve: Normal appearance of the aortic valve. No significant aortic stenosis or insufficiency. Tricuspid Valve: Normal appearance of the tricuspid valve. Estimated peak PA systolic pressure 30 mmHg. There is trace tricuspid regurgitation. Pulmonic Valve: Normal pulmonic valve appearance. Pericardium: Small pericardial effusion. Aorta: Normal aortic root. IVC: Dilated IVC with respiratory collapse consistent with elevated right atrial pressure. Conclusions 1.The left ventricle is normal in size and systolic function. 2.Estimated left ventricular ejection fraction of 55-60%. 3.Moderate concentric left ventricular hypertrophy. Electronically Signed By: Yvon Garcia 02-Aug-2017 15:53:30 -0800 Patient Name: MERVAT BYRD Study Date: 02-Aug-2017 [id number]
[2017-08-02] MEDS: AMLODIPINE 10 MG TAB PO SCH (22:22)
[2017-08-02] MEDS: ATORVASTATIN 80 MG TAB PO SCH (22:22)
[2017-08-02] MEDS: INSULIN GLARGINE [LANtus] 3 ML PEN SC SCH (22:49)
[2017-08-02] MEDS ORDERED: INSULIN ASPART [NOVOLOG] 3 ML PEN SC ONE (23:00)
[2017-08-03] VITALS (14 sets, daily range): BP systolic 127–193; BP diastolic 62–95; PULSE 71–85; RESP 18–20
[2017-08-03] MEDS: morphine 4 MG/ML VIAL IV PRN ×2 (01:03→13:36)
[2017-08-03] MEDS: hydrALAzine 20 MG INJ IV PRN (01:05)
[2017-08-03] MEDS: OXYCODONE/ACETAMINOPHEN (5/325) TAB PO SCH ×4 (05:58→22:13)
[2017-08-03 07:30] LABS: BASOPHILS % 0.4 % (0.0-2.0); EOSINOPHILS # 0.1 10^3/ul (0.0-0.5); HEMATOCRIT 24.9 % (42.0-52.0); HEMOGLOBIN 8.4 g/dl (14.0-18.0); LYMPHOCYTES # 1.2 10^3/ul (0.8-2.9); MEAN CORPUSCULAR HEMOGLOBIN 27.5 pg (29.0-33.0); MEAN CORPUSCULAR HGB CONC 33.7 g/dl (32.0-37.0); MEAN CORPUSCULAR VOLUME 81.4 fl (82.0-101.0); MEAN PLATELET VOLUME 11.2 fl (7.4-10.4); MONOCYTE # 0.8 10^3/ul (0.3-0.9); MONOCYTES % 15.2 % (0.0-11.0); NEUTROPHIL # 3.2 10^3/ul (1.6-7.5); NEUTROPHILS % 60.2 % (39.0-77.0); PLATELET COUNT 214 10^3/UL (140-415); RED BLOOD COUNT 3.06 10^6/ul (4.70-6.10); RED CELL DISTRIBUTION WIDTH 13.1 % (11.5-14.5); WHITE BLOOD COUNT 5.3 10^3/ul (4.8-10.8)
[2017-08-03 07:48] LABS: CALCIUM 8.1 mg/dl (8.4-10.2); CREATININE 1.85 mg/dl (0.61-1.24); POTASSIUM 3.5 mmol/L (3.5-5.1)
[2017-08-03] MEDS: FUROSEMIDE 40 MG INJ IV SCH (08:35)
[2017-08-03] MEDS: METHYLPREDNISOLONE 40 MG INJ IV SCH (08:35)
[2017-08-03] MEDS: LEVOFLOXACIN 500MG/D5W (PMX) 100 ML IVPB SCH (08:35)
[2017-08-03] MEDS: FAMOTIDINE 20 MG TAB PO SCH (08:36)
[2017-08-03] MEDS: EZETIMIBE 10 MG TAB PO SCH (08:36)
[2017-08-03] MEDS: POTASSIUM CHLORIDE (SR) 20 MEQ TAB PO SCH (08:36)
[2017-08-03] MEDS: CHOLECALCIFEROL 1,000 UNIT TAB PO SCH (08:36)
[2017-08-03] MEDS: hydrOXYzine HCL 25 MG TAB PO PRN (08:38)
[2017-08-03] MEDS: GUAIFENESIN/DM 5ML CUP PO PRN (08:38)
[2017-08-03] MEDS: INSULIN ASPART [NOVOLOG] 3 ML PEN SC SCH ×5 (08:50→22:31)
--- NOTE | 2017-08-03 08:54 | PN ---
DATE: 08/01/2017 SUBJECTIVE DATA: No acute events overnight. Awaiting to be seen by cardiology and renal teams. OBJECTIVE DATA: VITAL SIGNS: T-max 99.0, pulse 78 to 90, respirations 16 to 20, blood pressure is 155 to 179 systolic over 90 to 93 diastolic, satting 96 percent on room air. GENERAL: The patient is sitting up in bed. Family members at the bedside. No acute distress. HEENT: Pupils equal, round, react to light. Extraocular muscles intact. NECK: Supple. No thyromegaly. LUNGS: Distant breath sounds bilaterally. HEART: S1, S2 heard. No rubs, gallops. ABDOMEN: Soft, nontender, nondistended. Normal bowel sounds. No rebound or guarding. MUSCULOSKELETAL: 1+ pitting edema bilateral lower extremities and mid calves. NEUROLOGIC: No focal deficits. LABORATORY AND DIAGNOSTIC DATA: Sodium 141, potassium 3.2, chloride 108, CO2 29, BUN 21, creatinine 1.69, glucose 165. Hemoglobin A1c 8.3. LFTs are normal. The BNP was elevated at 4060. The CBC is normal. Renal ultrasound was performed and was unremarkable. The chest x-ray showed no evidence of an acute cardiopulmonary disease. ASSESSMENT AND PLAN: This is a 42-year-old male, prior history of essential hypertension, type 2 diabetes, high cholesterol, prior pneumonia, history of prior cocaine abuse, left Charcot foot status post reconstruction 2016, iron-deficiency anemia, left lower extremity deep venous thrombosis, lumbar disc disease, who presents with chest pain, shortness of breath, productive cough with signs of congestive heart failure exacerbation, renal insufficiency and possible upper respiratory infection and also chest pain rule out. 1. Chest pain. Again, rule out for acute coronary syndrome. Trend his troponins, the first 2 were negative. Continue high- dose aspirin, morphine, oxygen, nitrates. Will get a cardiology consult. Follow up echocardiogram as well. 2. Congestive heart failure exacerbation. BNP is elevated at 4000. We will put patient on Lasix and low dose Coreg. Get cardiology consult. Monitor ins and outs and daily weights. Check 2D echocardiogram as well. 3. Renal insufficiency. Will get a renal consult as well. Renal ultrasound results noted. Hold DILAN inhibitor. 4. Type 2 diabetes. Continue Lantus and sliding scale insulin. 5. Shortness of breath and cough. It is likely secondary to upper respiratory infection. Continue antibiotics. Dose on steroids. Consider CT chest if symptoms of shortness of breath and cough and chest pain persist or worsen. 6. Prior left lower extremity deep venous thrombosis. His ultrasound on this admission bilateral did not show any signs of any deep venous thrombosis. Continue to monitor for now. Apparently, he was treated with anticoagulation for deep venous thrombosis in the past. 7. History of anemia. Continue to monitor CBC daily. 8. History of left Charcot foot. Get physical therapy consult. 9. History of cocaine abuse. Counseled on cessation. Consider checking a drug screen. 10. Gastrointestinal prophylaxis. Add H2 lo. Dictated By: Tito Bowers MD /anthony/issac /Document#: [id number]
--- NOTE | 2017-08-03 15:06 | PN ---
Date/Time of Note Date/Time of Note DATE: 08/03/17 TIME: 14:53 Assessment/Plan VTE Prophylaxis VTE Prophylaxis Intervention: heparin, other Lines/Catheters IV Catheter Type (from Nrs): Saline Lock Urinary Cath still in place: No Assessment/Plan Assessment/Plan 1. Chest pain, atypical, follow up with cardiology 2. HTN, better controlled 3. DM, on insulins, adjust dosage 4. CKD, stage 3, follow up with BMP 5. h/o DVT off of anticoagulant 6. Microcytic anemia, iron panel 7. Dyslipidemia, on lipitor 8. History of cocaine abuse. Counseled on cessation. 9. Degenerative disc disease, on steroid 10. DVT prophylaxis: heparin Subjective 24 Hr Interval Summary Free Text/Dictation chest pain Exam/Review of Systems Vital Signs Vitals Vital Signs Date Time Temp Pulse Resp B/P Pulse Ox O2 Delivery O2 Flow Rate FiO2 08/03/17 12:02 79 08/03/17 12:00 98.4 19 127/65 95 08/03/17 08:00 Nasal Cannula 08/03/17 08:00 2.0 Intake and Output 08/02/17 08/02/17 08/03/17 15:00 23:00 07:00 Intake Total 1080 ml 440 ml Output Total 1100 ml 470 ml Balance -20 ml -30 ml Exam Constitutional: alert, oriented, well developed Head: atraumatic, normocephalic Eyes: EOMI, PERRL, nl conjunctiva, nl lids ENMT: nl external ears & nose, nl lips & teeth, nl nasal mucosa & septum Neck: non-tender, supple Respiratory: clear to auscultation, normal air movement, No congested cough, No crackles/rales, No diminished breath sounds, No intercostal retraction, No labored breathing, No other, No respirations, No tactile fremitus, No wheezing Cardiovascular: nl pulses, regular rate and rhythm, No S3, No S4, No bruits, No diastolic murmur, No edema, No gallop, No irregular rhythm, No jugular venous distention (JVD), No murmurs/extra sounds, No other, No rub, No systolic murmur Gastrointestinal: nl liver, spleen, non-tender, soft, No ascites, No bowel sounds, No distended, No firm, No hepatomegaly, No mass , No other, No rebound or guarding, No splenomegaly, No surgical scars, No tender Musculoskeletal: nl extremities to inspection Extremities: No calf tenderness, No clubbing, No cyanosis, No palpable cord Neurological: SUPERVISOR FERTILIZER II-XII intact, nl mental status, nl speech, nl strength Results Result Diagram: 08/03/17 0647 08/03/17 0647 Results 24 hrs Laboratory Tests Test 08/02/17 17:30 08/02/17 22:33 08/03/17 06:47 08/03/17 08:34 Bedside Glucose 312 H 356 H 162 White Blood Count 5.3 Red Blood Count 3.06 L Hemoglobin 8.4 L Hematocrit 24.9 L Mean Corpuscular Volume 81.4 L Mean Corpuscular Hemoglobin 27.5 L Mean Corpuscular Hemoglobin Concent 33.7 Red Cell Distribution Width 13.1 Platelet Count 214 Mean Platelet Volume 11.2 H Neutrophils % 60.2 Lymphocytes % 23.0 Monocytes % 15.2 H Eosinophils % 1.0 Basophils % 0.4 Nucleated Red Blood Cells % 0.0 Neutrophils # 3.2 Lymphocytes # 1.2 Monocytes # 0.8 Eosinophils # 0.1 Basophils # 0.0 Nucleated Red Blood Cells # 0.0 Sodium Level 138 Potassium Level 3.5 Chloride Level 105 Carbon Dioxide Level 29 Anion Gap 8 Blood Urea Nitrogen 27 H Creatinine 1.85 H Glucose Level 217 Calcium Level 8.1 L Test 08/03/17 11:48 Bedside Glucose 168 Medications Medications Current Medications Nitroglycerin (Nitroglycerin (Sl Tab) 0.4 Mg) 1 tab Q5M PRN SL ANGINA; Start 08/02/17 at 03:30 Miscellaneous Information 1 ea NOTE XX ; Start 08/02/17 at 04:00 Glucose (Glutose) 15 gm Q15M PRN PO DECREASED GLUCOSE; Start 08/02/17 at 04:00 Glucose (Glutose) 22.5 gm Q15M PRN PO DECREASED GLUCOSE; Start 08/02/17 at 04: 00 Dextrose (D50w Syringe) 25 ml Q15M PRN IV DECREASED GLUCOSE; Start 08/02/17 at 04:00 Dextrose (D50w Syringe) 50 ml Q15M PRN IV DECREASED GLUCOSE; Start 08/02/17 at 04:00 Glucagon (Glucagen) 1 mg Q15M PRN IM DECREASED GLUCOSE; Start 08/02/17 at 04:00 Glucose (Glutose) 15 gm Q15M PRN BUCCAL DECREASED GLUCOSE; Start 08/02/17 at 04 :00 Amlodipine Besylate (Norvasc) 10 mg QHS PO Last administered on 08/02/17 22:22 ; Admin Dose 10 MG; Start 08/02/17 at 21:00 Atorvastatin Calcium (Lipitor) 80 mg QHS PO Last administered on 08/02/17 22: 22; Admin Dose 80 MG; Start 08/02/17 at 21:00 Cholecalciferol (Vitamin D) 1,000 unit DAILY PO Last administered on 08/03/17 08:36; Admin Dose 1,000 UNIT; Start 08/02/17 at 09:00 EZETIMIBE (Zetia) 10 mg DAILY PO Last administered on 08/03/17 08:36; Admin Dose 10 MG; Start 08/02/17 at 09:00 Hydralazine HCl (Apresoline) 100 mg Q8 PO Last administered on 08/03/17 13:35 ; Admin Dose 100 MG; Start 08/02/17 at 06:00 Lisinopril (Zestril) 40 mg DAILY PO Last administered on 08/02/17 09:37; Admin Dose 40 MG; Start 08/02/17 at 09:00; Status Future Hold Oxycodone/ Acetaminophen (Percocet (5/ 325)) 1 tab Q6H PO Last administered on 08/03/17 11:45; Admin Dose 1 TAB; Start 08/02/17 at 05:00 Potassium Chloride (Klor-Con 20) 20 meq DAILY PO Last administered on 08:36; Admin Dose 20 MEQ; Start 08/02/17 at 09:00 Insulin Glargine (Lantus) 30 unit QHS SC Last administered on 08/02/17 22:49; Admin Dose 30 UNIT; Start 08/02/17 at 21:00 Guaifenesin/ Dextromethorphan 10 ml 10 ml Q4H PRN PO COUGH Last administered on 08/03/17 08:38; Admin Dose 10 ML; Start 08/02/17 at 08:00 Levofloxacin/ Dextrose (Levaquin 500mg/ D5W 100 ml (Pmx)) 100 ml @ 100 mls/hr Q24H IVPB Last administered on 08/03/17 08:35; Admin Dose 100 MLS/HR; Start 08/02/17 at 09:00 Furosemide (Lasix) 40 mg DAILY IV Last administered on 08/03/17 08:35; Admin Dose 40 MG; Start 08/02/17 at 09:00 Methylprednisolone Sodium Succinate (Solu-Medrol) 40 mg DAILY IV Last administered on 08/03/17 08:35; Admin Dose 40 MG; Start 08/02/17 at 09:00 Hydroxyzine HCl (Atarax) 25 mg Q6H PRN PO ITCHING Last administered on 08:38; Admin Dose 25 MG; Start 08/02/17 at 09:00 Carvedilol (Coreg) 3.125 mg BID PO Last administered on 08/03/17 08:37; Admin Dose 3.125 MG; Start 08/02/17 at 21:00 Famotidine (Pepcid) 20 mg DAILY PO Last administered on 08/03/17 08:36; Admin Dose 20 MG; Start 08/02/17 at 13:00 Morphine Sulfate (morphine) 4 mg Q4H PRN IV PAIN LEVEL 4-7 Last administered on 08/03/17 13:36; Admin Dose 4 MG; Start 08/03/17 at 00:45 Hydralazine HCl (Apresoline) 10 mg Q4H PRN IV ELEVATED BLOOD PRESSURE Last administered on 08/03/17 01:05; Admin Dose 10 MG; Start 08/03/17 at 01:00 MERARY SAHU MD Aug 03, 2017 15:06
--- NOTE | 2017-08-03 16:05 | CONS ---
Date/Time of Note Date/Time of Note DATE: 08/03/17 TIME: 16:04 Assessment/Plan Assessment/Plan Additional Assessment/Plan 42 yo male with 1) Chest Pain 2) Acute Diastolic Heart failure 3) Uncontrolled HTN, Chronic, ? Compliance 4) History of DM 5) Likely MARIA DEL CARMEN on CKD stage unspecified 6) Anemia, Normocytic, likely chronic diease 7) Hx of DVT, No evidence on this admission Cont current Rx and plan Diuretic Rx IV Pt is diuresing monitor electrolytes, UO and renal fuction Overall, Renal functon Stable Check Mg in am Will cont to closely follow along with you. Consultation Date/Type/Reason Admit Date/Time Aug 02, 2017 at 01:07 Initial Consult Date 08/02/17 Type of Consultation: Renal Referring Provider: CLARITA VERMA 24 HR Interval Summary Free Text/Dictation No new complaints Constitutional: requiring O2 Exam/Review of Systems Vital Signs Vitals Vital Signs Date Time Temp Pulse Resp B/P Pulse Ox O2 Delivery O2 Flow Rate FiO2 08/03/17 16:02 80 08/03/17 12:00 98.4 19 127/65 95 08/03/17 08:00 Nasal Cannula 08/03/17 08:00 2.0 Intake and Output 08/02/17 08/02/17 08/03/17 14:59 22:59 06:59 Intake Total 1080 ml 440 ml Output Total 1100 ml 470 ml Balance -20 ml -30 ml Exam Constitutional: No distress ENMT: mucosa pink and moist Neck: jvd Respiratory: crackles/rales, No labored breathing Cardiovascular: edema, regular rate and rhythm Gastrointestinal: non-tender Extremities: pitting pedal edema Results Result Diagram: 08/03/17 0647 08/03/17 0647 Results 24 hrs Laboratory Tests Test 08/02/17 17:30 08/02/17 22:33 08/03/17 06:47 08/03/17 08:34 Bedside Glucose 312 H 356 H 162 White Blood Count 5.3 Red Blood Count 3.06 L Hemoglobin 8.4 L Hematocrit 24.9 L Mean Corpuscular Volume 81.4 L Mean Corpuscular Hemoglobin 27.5 L Mean Corpuscular Hemoglobin Concent 33.7 Red Cell Distribution Width 13.1 Platelet Count 214 Mean Platelet Volume 11.2 H Neutrophils % 60.2 Lymphocytes % 23.0 Monocytes % 15.2 H Eosinophils % 1.0 Basophils % 0.4 Nucleated Red Blood Cells % 0.0 Neutrophils # 3.2 Lymphocytes # 1.2 Monocytes # 0.8 Eosinophils # 0.1 Basophils # 0.0 Nucleated Red Blood Cells # 0.0 Sodium Level 138 Potassium Level 3.5 Chloride Level 105 Carbon Dioxide Level 29 Anion Gap 8 Blood Urea Nitrogen 27 H Creatinine 1.85 H Glucose Level 217 Calcium Level 8.1 L Test 08/03/17 11:48 Bedside Glucose 168 Medications Medications Current Medications Nitroglycerin (Nitroglycerin (Sl Tab) 0.4 Mg) 1 tab Q5M PRN SL ANGINA; Start 08/02/17 at 03:30 Miscellaneous Information 1 ea NOTE XX ; Start 08/02/17 at 04:00 Glucose (Glutose) 15 gm Q15M PRN PO DECREASED GLUCOSE; Start 08/02/17 at 04:00 Glucose (Glutose) 22.5 gm Q15M PRN PO DECREASED GLUCOSE; Start 08/02/17 at 04: 00 Dextrose (D50w Syringe) 25 ml Q15M PRN IV DECREASED GLUCOSE; Start 08/02/17 at 04:00 Dextrose (D50w Syringe) 50 ml Q15M PRN IV DECREASED GLUCOSE; Start 08/02/17 at 04:00 Glucagon (Glucagen) 1 mg Q15M PRN IM DECREASED GLUCOSE; Start 08/02/17 at 04:00 Glucose (Glutose) 15 gm Q15M PRN BUCCAL DECREASED GLUCOSE; Start 08/02/17 at 04 :00 Amlodipine Besylate (Norvasc) 10 mg QHS PO Last administered on 08/02/17 22:22 ; Admin Dose 10 MG; Start 08/02/17 at 21:00 Atorvastatin Calcium (Lipitor) 80 mg QHS PO Last administered on 08/02/17 22: 22; Admin Dose 80 MG; Start 08/02/17 at 21:00 Cholecalciferol (Vitamin D) 1,000 unit DAILY PO Last administered on 08/03/17 08:36; Admin Dose 1,000 UNIT; Start 08/02/17 at 09:00 EZETIMIBE (Zetia) 10 mg DAILY PO Last administered on 08/03/17 08:36; Admin Dose 10 MG; Start 08/02/17 at 09:00 Hydralazine HCl (Apresoline) 100 mg Q8 PO Last administered on 08/03/17 13:35 ; Admin Dose 100 MG; Start 08/02/17 at 06:00 Lisinopril (Zestril) 40 mg DAILY PO Last administered on 08/02/17 09:37; Admin Dose 40 MG; Start 08/02/17 at 09:00; Status Future Hold Oxycodone/ Acetaminophen (Percocet (5/ 325)) 1 tab Q6H PO Last administered on 08/03/17 11:45; Admin Dose 1 TAB; Start 08/02/17 at 05:00 Potassium Chloride (Klor-Con 20) 20 meq DAILY PO Last administered on 08:36; Admin Dose 20 MEQ; Start 08/02/17 at 09:00 Insulin Glargine (Lantus) 30 unit QHS SC Last administered on 08/02/17 22:49; Admin Dose 30 UNIT; Start 08/02/17 at 21:00 Guaifenesin/ Dextromethorphan 10 ml 10 ml Q4H PRN PO COUGH Last administered on 08/03/17 08:38; Admin Dose 10 ML; Start 08/02/17 at 08:00 Levofloxacin/ Dextrose (Levaquin 500mg/ D5W 100 ml (Pmx)) 100 ml @ 100 mls/hr Q24H IVPB Last administered on 08/03/17 08:35; Admin Dose 100 MLS/HR; Start 08/02/17 at 09:00 Furosemide (Lasix) 40 mg DAILY IV Last administered on 08/03/17 08:35; Admin Dose 40 MG; Start 08/02/17 at 09:00 Methylprednisolone Sodium Succinate (Solu-Medrol) 40 mg DAILY IV Last administered on 08/03/17 08:35; Admin Dose 40 MG; Start 08/02/17 at 09:00 Hydroxyzine HCl (Atarax) 25 mg Q6H PRN PO ITCHING Last administered on 08:38; Admin Dose 25 MG; Start 08/02/17 at 09:00 Carvedilol (Coreg) 3.125 mg BID PO Last administered on 08/03/17 08:37; Admin Dose 3.125 MG; Start 08/02/17 at 21:00 Famotidine (Pepcid) 20 mg DAILY PO Last administered on 08/03/17 08:36; Admin Dose 20 MG; Start 08/02/17 at 13:00 Morphine Sulfate (morphine) 4 mg Q4H PRN IV PAIN LEVEL 4-7 Last administered on 08/03/17 13:36; Admin Dose 4 MG; Start 08/03/17 at 00:45 Hydralazine HCl (Apresoline) 10 mg Q4H PRN IV ELEVATED BLOOD PRESSURE Last administered on 08/03/17 01:05; Admin Dose 10 MG; Start 08/03/17 at 01:00 Heparin Sodium (Porcine) (Heparin (5000 Units/0.5 ml)) 5,000 unit BID SC ; Start 08/03/17 at 21:00 ROSEMARY PRUETT MD Aug 03, 2017 16:05
--- NOTE | 2017-08-03 17:47 | CONS ---
Date/Time of Note Date/Time of Note DATE: 08/03/17 TIME: 17:41 Assessment/Plan Assessment/Plan Chief Complaint/Hosp Course Assessment: Chest pain - likely due to decompensated heart failure, ruled out for myocardial infarction Acute on chronic diastolic heart failure - echocardiogram showed LVEF 55-60% with moderate LVH Accelerated hypertension Acute kidney injury on probable chronic kidney disease Dyslipidemia Diabetes mellitus Upper respiratory infection - on antibiotics Recommendations: -continue diuresis, on Lasix 40mg IV daily -continue antihypertensive medications -continue atorvastatin Problems: Consultation Date/Type/Reason Admit Date/Time Aug 02, 2017 at 01:07 Type of Consultation: Cardiology Reason for Consultation chest pain Hx of Present Illness The patient is a 42 year-old male who presented with chest pressures, shortness of breath, and orthopnea. Troponins have been negative x 2. BNP was elevated at 4060 suggestive of decompensated heart failure, and the patient was also noted to have acute kidney injury. He also reports fever and a nonproductive cough, though he has been afebrile since hospital admission. 14 point review of systems negative other than per HPI. Past Medical History Hypertension Dyslipidemia Diabetes mellitus Past Surgical History Past Surgical Hx: other (left first toe amputation) Social History Alcohol Use: none Smoking Status: Former smoker Drug Use: cocaine (though patient denies recent use) Exam/Review of Systems Vital Signs Vitals Vital Signs Date Time Temp Pulse Resp B/P Pulse Ox O2 Delivery O2 Flow Rate FiO2 08/03/17 16:02 80 08/03/17 15:30 98.3 20 152/83 95 08/03/17 08:00 Nasal Cannula 08/03/17 08:00 2.0 Intake and Output 08/02/17 08/02/17 08/03/17 15:00 23:00 07:00 Intake Total 1080 ml 440 ml Output Total 1100 ml 470 ml Balance -20 ml -30 ml Exam Constitutional: alert, obese, well developed Psych: nl mood/affect, no complaints Head: atraumatic, normocephalic Eyes: nl conjunctiva, nl lids ENMT: nl external ears & nose, nl nasal mucosa & septum Neck: non-tender, supple Respiratory: diminished breath sounds, No wheezing Cardiovascular: regular rate and rhythm Gastrointestinal: non-tender, soft Musculoskeletal: other (status post left first toe amputation) Extremities: edema, No clubbing, No cyanosis Neurological: nl mental status, nl speech Skin: nl turgor Results Result Diagram: 08/03/17 0647 08/03/17 0647 Results 24 hrs Laboratory Tests Test 08/02/17 22:33 08/03/17 06:47 08/03/17 08:34 08/03/17 11:48 Bedside Glucose 356 H 162 168 White Blood Count 5.3 Red Blood Count 3.06 L Hemoglobin 8.4 L Hematocrit 24.9 L Mean Corpuscular Volume 81.4 L Mean Corpuscular Hemoglobin 27.5 L Mean Corpuscular Hemoglobin Concent 33.7 Red Cell Distribution Width 13.1 Platelet Count 214 Mean Platelet Volume 11.2 H Neutrophils % 60.2 Lymphocytes % 23.0 Monocytes % 15.2 H Eosinophils % 1.0 Basophils % 0.4 Nucleated Red Blood Cells % 0.0 Neutrophils # 3.2 Lymphocytes # 1.2 Monocytes # 0.8 Eosinophils # 0.1 Basophils # 0.0 Nucleated Red Blood Cells # 0.0 Sodium Level 138 Potassium Level 3.5 Chloride Level 105 Carbon Dioxide Level 29 Anion Gap 8 Blood Urea Nitrogen 27 H Creatinine 1.85 H Glucose Level 217 Calcium Level 8.1 L Test 08/03/17 16:58 Bedside Glucose 297 H Medications Medications Current Medications Nitroglycerin (Nitroglycerin (Sl Tab) 0.4 Mg) 1 tab Q5M PRN SL ANGINA; Start 08/02/17 at 03:30 Miscellaneous Information 1 ea NOTE XX ; Start 08/02/17 at 04:00 Glucose (Glutose) 15 gm Q15M PRN PO DECREASED GLUCOSE; Start 08/02/17 at 04:00 Glucose (Glutose) 22.5 gm Q15M PRN PO DECREASED GLUCOSE; Start 08/02/17 at 04: 00 Dextrose (D50w Syringe) 25 ml Q15M PRN IV DECREASED GLUCOSE; Start 08/02/17 at 04:00 Dextrose (D50w Syringe) 50 ml Q15M PRN IV DECREASED GLUCOSE; Start 08/02/17 at 04:00 Glucagon (Glucagen) 1 mg Q15M PRN IM DECREASED GLUCOSE; Start 08/02/17 at 04:00 Glucose (Glutose) 15 gm Q15M PRN BUCCAL DECREASED GLUCOSE; Start 08/02/17 at 04 :00 Amlodipine Besylate (Norvasc) 10 mg QHS PO Last administered on 08/02/17 22:22 ; Admin Dose 10 MG; Start 08/02/17 at 21:00 Atorvastatin Calcium (Lipitor) 80 mg QHS PO Last administered on 08/02/17 22: 22; Admin Dose 80 MG; Start 08/02/17 at 21:00 Cholecalciferol (Vitamin D) 1,000 unit DAILY PO Last administered on 08/03/17 08:36; Admin Dose 1,000 UNIT; Start 08/02/17 at 09:00 EZETIMIBE (Zetia) 10 mg DAILY PO Last administered on 08/03/17 08:36; Admin Dose 10 MG; Start 08/02/17 at 09:00 Hydralazine HCl (Apresoline) 100 mg Q8 PO Last administered on 08/03/17 13:35 ; Admin Dose 100 MG; Start 08/02/17 at 06:00 Lisinopril (Zestril) 40 mg DAILY PO Last administered on 08/02/17 09:37; Admin Dose 40 MG; Start 08/02/17 at 09:00; Status Future Hold Oxycodone/ Acetaminophen (Percocet (5/ 325)) 1 tab Q6H PO Last administered on 08/03/17 17:06; Admin Dose 1 TAB; Start 08/02/17 at 05:00 Potassium Chloride (Klor-Con 20) 20 meq DAILY PO Last administered on 08:36; Admin Dose 20 MEQ; Start 08/02/17 at 09:00 Insulin Glargine (Lantus) 30 unit QHS SC Last administered on 08/02/17 22:49; Admin Dose 30 UNIT; Start 08/02/17 at 21:00 Guaifenesin/ Dextromethorphan 10 ml 10 ml Q4H PRN PO COUGH Last administered on 08/03/17 08:38; Admin Dose 10 ML; Start 08/02/17 at 08:00 Levofloxacin/ Dextrose (Levaquin 500mg/ D5W 100 ml (Pmx)) 100 ml @ 100 mls/hr Q24H IVPB Last administered on 08/03/17 08:35; Admin Dose 100 MLS/HR; Start 08/02/17 at 09:00 Furosemide (Lasix) 40 mg DAILY IV Last administered on 08/03/17 08:35; Admin Dose 40 MG; Start 08/02/17 at 09:00 Methylprednisolone Sodium Succinate (Solu-Medrol) 40 mg DAILY IV Last administered on 08/03/17 08:35; Admin Dose 40 MG; Start 08/02/17 at 09:00 Hydroxyzine HCl (Atarax) 25 mg Q6H PRN PO ITCHING Last administered on 08:38; Admin Dose 25 MG; Start 08/02/17 at 09:00 Carvedilol (Coreg) 3.125 mg BID PO Last administered on 08/03/17 08:37; Admin Dose 3.125 MG; Start 08/02/17 at 21:00 Famotidine (Pepcid) 20 mg DAILY PO Last administered on 08/03/17 08:36; Admin Dose 20 MG; Start 08/02/17 at 13:00 Morphine Sulfate (morphine) 4 mg Q4H PRN IV PAIN LEVEL 4-7 Last administered on 08/03/17 13:36; Admin Dose 4 MG; Start 08/03/17 at 00:45 Hydralazine HCl (Apresoline) 10 mg Q4H PRN IV ELEVATED BLOOD PRESSURE Last administered on 08/03/17 01:05; Admin Dose 10 MG; Start 08/03/17 at 01:00 Heparin Sodium (Porcine) (Heparin (5000 Units/0.5 ml)) 5,000 unit BID SC ; Start 08/03/17 at 21:00 MATT GARRETT MD Aug 03, 2017 17:47
[2017-08-03] MEDS: AMLODIPINE 10 MG TAB PO SCH (22:11)
[2017-08-03] MEDS: ATORVASTATIN 80 MG TAB PO SCH (22:12)
[2017-08-03] MEDS: HEPARIN 5,000 UNIT/0.5 ML VIAL SC SCH (22:19)
[2017-08-03] MEDS: INSULIN GLARGINE [LANtus] 3 ML PEN SC SCH (22:36)
[2017-08-04] VITALS (13 sets, daily range): BP systolic 140–186; BP diastolic 72–98; PULSE 71–88; RESP 17–20
[2017-08-04] MEDS: morphine 4 MG/ML VIAL IV PRN ×2 (01:11→10:50)
[2017-08-04] MEDS: OXYCODONE/ACETAMINOPHEN (5/325) TAB PO SCH ×4 (06:18→23:00)
[2017-08-04] MEDS: GUAIFENESIN/DM 5ML CUP PO PRN (06:21)
[2017-08-04 06:58] LABS: BASOPHILS % 0.3 % (0.0-2.0); EOSINOPHILS # 0.1 10^3/ul (0.0-0.5); EOSINOPHILS % 0.9 % (0.0-7.0); HEMATOCRIT 25.8 % (42.0-52.0); HEMOGLOBIN 8.5 g/dl (14.0-18.0); LYMPHOCYTES # 1.4 10^3/ul (0.8-2.9); LYMPHOCYTES % 17.6 % (15.0-51.0); MEAN CORPUSCULAR HEMOGLOBIN 27.6 pg (29.0-33.0); MEAN CORPUSCULAR HGB CONC 32.9 g/dl (32.0-37.0); MEAN CORPUSCULAR VOLUME 83.8 fl (82.0-101.0); MEAN PLATELET VOLUME 11.6 fl (7.4-10.4); MONOCYTE # 0.7 10^3/ul (0.3-0.9); MONOCYTES % 9.1 % (0.0-11.0); NEUTROPHIL # 5.5 10^3/ul (1.6-7.5); NEUTROPHILS % 71.7 % (39.0-77.0); PLATELET COUNT 235 10^3/UL (140-415); RED BLOOD COUNT 3.08 10^6/ul (4.70-6.10); RED CELL DISTRIBUTION WIDTH 13.3 % (11.5-14.5); WHITE BLOOD COUNT 7.7 10^3/ul (4.8-10.8)
[2017-08-04 07:37] LABS: CALCIUM 8.3 mg/dl (8.4-10.2); CREATININE 2.02 mg/dl (0.61-1.24)
[2017-08-04] MEDS: CHOLECALCIFEROL 1,000 UNIT TAB PO SCH (08:21)
[2017-08-04] MEDS: EZETIMIBE 10 MG TAB PO SCH (08:21)
[2017-08-04] MEDS: POTASSIUM CHLORIDE (SR) 20 MEQ TAB PO SCH (08:22)
[2017-08-04] MEDS: FAMOTIDINE 20 MG TAB PO SCH (08:22)
[2017-08-04] MEDS: LEVOFLOXACIN 500MG/D5W (PMX) 100 ML IVPB SCH (08:24)
[2017-08-04] MEDS: FUROSEMIDE 40 MG INJ IV SCH (08:29)
[2017-08-04] MEDS: METHYLPREDNISOLONE 40 MG INJ IV SCH (08:29)
[2017-08-04] MEDS: HEPARIN 5,000 UNIT/0.5 ML VIAL SC SCH ×2 (08:45→20:58)
[2017-08-04] MEDS: INSULIN ASPART [NOVOLOG] 3 ML PEN SC SCH ×6 (08:45→20:59)
--- NOTE | 2017-08-04 12:49 | CONS ---
Date/Time of Note Date/Time of Note DATE: 08/04/17 TIME: 12:48 Assessment/Plan Assessment/Plan Additional Assessment/Plan 42 yo male with 1) Chest Pain 2) Acute Diastolic Heart failure 3) Uncontrolled HTN, Chronic, ? Compliance 4) History of DM 5) Likely MARIA DEL CARMEN on CKD stage unspecified 6) Anemia, Normocytic, likely chronic diease 7) Hx of DVT, No evidence on this admission Cont current Rx and plan Diuretic Rx IV monitor electrolytes, UO and renal fuction Cr increase likely in the setting of diuretic Rx Check Mg in am Will cont to closely follow along with you. Consultation Date/Type/Reason Admit Date/Time Aug 02, 2017 at 01:07 Initial Consult Date 08/02/17 Type of Consultation: renal Referring Provider: CLARITA VERMA 24 HR Interval Summary Constitutional: requiring O2 Exam/Review of Systems Vital Signs Vitals Vital Signs Date Time Temp Pulse Resp B/P Pulse Ox O2 Delivery O2 Flow Rate FiO2 08/04/17 12:10 71 08/04/17 11:23 97.6 17 149/84 97 08/03/17 20:00 Nasal Cannula 2.0 Intake and Output 08/03/17 08/03/17 08/04/17 15:00 23:00 07:00 Intake Total 100 ml 1100 ml 1000 ml Output Total 800 ml 1070 ml Balance 100 ml 300 ml -70 ml Exam Constitutional: No distress ENMT: mucosa pink and moist Respiratory: crackles/rales Cardiovascular: edema, regular rate and rhythm Gastrointestinal: non-tender, soft Extremities: edema Neurological: WEBMETHODS CONSULTANT II-XII intact, nl mental status Skin: No diaphoresis Results Result Diagram: 08/04/17 0606 08/04/17 0606 Results 24 hrs Laboratory Tests Test 08/03/17 16:58 08/03/17 22:23 08/04/17 01:22 08/04/17 06:06 Bedside Glucose 297 H 291 H 261 H White Blood Count 7.7 # Red Blood Count 3.08 L Hemoglobin 8.5 L Hematocrit 25.8 L Mean Corpuscular Volume 83.8 Mean Corpuscular Hemoglobin 27.6 L Mean Corpuscular Hemoglobin Concent 32.9 Red Cell Distribution Width 13.3 Platelet Count 235 Mean Platelet Volume 11.6 H Neutrophils % 71.7 Lymphocytes % 17.6 Monocytes % 9.1 Eosinophils % 0.9 Basophils % 0.3 Nucleated Red Blood Cells % 0.0 Neutrophils # 5.5 Lymphocytes # 1.4 Monocytes # 0.7 Eosinophils # 0.1 Basophils # 0.0 Nucleated Red Blood Cells # 0.0 Sodium Level 139 Potassium Level 4.0 Chloride Level 104 Carbon Dioxide Level 30 Anion Gap 9 Blood Urea Nitrogen 39 #H Creatinine 2.02 H Glucose Level 172 Calcium Level 8.3 L Test 08/04/17 08:19 08/04/17 12:05 Bedside Glucose 192 128 Medications Medications Current Medications Nitroglycerin (Nitroglycerin (Sl Tab) 0.4 Mg) 1 tab Q5M PRN SL ANGINA; Start 08/02/17 at 03:30 Miscellaneous Information 1 ea NOTE XX ; Start 08/02/17 at 04:00 Glucose (Glutose) 15 gm Q15M PRN PO DECREASED GLUCOSE; Start 08/02/17 at 04:00 Glucose (Glutose) 22.5 gm Q15M PRN PO DECREASED GLUCOSE; Start 08/02/17 at 04: 00 Dextrose (D50w Syringe) 25 ml Q15M PRN IV DECREASED GLUCOSE; Start 08/02/17 at 04:00 Dextrose (D50w Syringe) 50 ml Q15M PRN IV DECREASED GLUCOSE; Start 08/02/17 at 04:00 Glucagon (Glucagen) 1 mg Q15M PRN IM DECREASED GLUCOSE; Start 08/02/17 at 04:00 Glucose (Glutose) 15 gm Q15M PRN BUCCAL DECREASED GLUCOSE; Start 08/02/17 at 04 :00 Amlodipine Besylate (Norvasc) 10 mg QHS PO Last administered on 08/03/17 22:11 ; Admin Dose 10 MG; Start 08/02/17 at 21:00 Atorvastatin Calcium (Lipitor) 80 mg QHS PO Last administered on 08/03/17 22: 12; Admin Dose 80 MG; Start 08/02/17 at 21:00 Cholecalciferol (Vitamin D) 1,000 unit DAILY PO Last administered on 08/04/17 08:21; Admin Dose 1,000 UNIT; Start 08/02/17 at 09:00 EZETIMIBE (Zetia) 10 mg DAILY PO Last administered on 08/04/17 08:21; Admin Dose 10 MG; Start 08/02/17 at 09:00 Hydralazine HCl (Apresoline) 100 mg Q8 PO Last administered on 08/04/17 06:18 ; Admin Dose 100 MG; Start 08/02/17 at 06:00 Lisinopril (Zestril) 40 mg DAILY PO Last administered on 08/02/17 09:37; Admin Dose 40 MG; Start 08/02/17 at 09:00; Status Future Hold Oxycodone/ Acetaminophen (Percocet (5/ 325)) 1 tab Q6H PO Last administered on 08/04/17 06:18; Admin Dose 1 TAB; Start 08/02/17 at 05:00 Potassium Chloride (Klor-Con 20) 20 meq DAILY PO Last administered on 08:22; Admin Dose 20 MEQ; Start 08/02/17 at 09:00 Guaifenesin/ Dextromethorphan 10 ml 10 ml Q4H PRN PO COUGH Last administered on 08/04/17 06:21; Admin Dose 10 ML; Start 08/02/17 at 08:00 Levofloxacin/ Dextrose (Levaquin 500mg/ D5W 100 ml (Pmx)) 100 ml @ 100 mls/hr Q24H IVPB Last administered on 08/04/17 08:24; Admin Dose 100 MLS/HR; Start 08/02/17 at 09:00 Furosemide (Lasix) 40 mg DAILY IV Last administered on 08/04/17 08:29; Admin Dose 40 MG; Start 08/02/17 at 09:00 Methylprednisolone Sodium Succinate (Solu-Medrol) 40 mg DAILY IV Last administered on 08/04/17 08:29; Admin Dose 40 MG; Start 08/02/17 at 09:00 Hydroxyzine HCl (Atarax) 25 mg Q6H PRN PO ITCHING Last administered on 08:38; Admin Dose 25 MG; Start 08/02/17 at 09:00 Carvedilol (Coreg) 3.125 mg BID PO Last administered on 08/04/17 08:22; Admin Dose 3.125 MG; Start 08/02/17 at 21:00 Famotidine (Pepcid) 20 mg DAILY PO Last administered on 08/04/17 08:22; Admin Dose 20 MG; Start 08/02/17 at 13:00 Morphine Sulfate (morphine) 4 mg Q4H PRN IV PAIN LEVEL 4-7 Last administered on 08/04/17 10:50; Admin Dose 4 MG; Start 08/03/17 at 00:45 Hydralazine HCl (Apresoline) 10 mg Q4H PRN IV ELEVATED BLOOD PRESSURE Last administered on 08/03/17 01:05; Admin Dose 10 MG; Start 08/03/17 at 01:00 Heparin Sodium (Porcine) (Heparin (5000 Units/0.5 ml)) 5,000 unit BID SC Last administered on 08/04/17 08:45; Admin Dose 5,000 UNIT; Start 08/03/17 at 21:00 Insulin Glargine (Lantus) 34 unit QHS SC ; Start 08/04/17 at 21:00 ROSEMARY PRUETT MD Aug 04, 2017 12:49
[2017-08-04] MEDS ORDERED: BISACODYL 10 MG SUPP PR PRN (13:00)
[2017-08-04] MEDS: SENNA TAB PO SCH ×2 (14:03→20:33)
--- NOTE | 2017-08-04 14:37 | PN ---
Date/Time of Note Date/Time of Note DATE: 08/04/17 TIME: 14:34 Assessment/Plan VTE Prophylaxis VTE Prophylaxis Intervention: ambulation, SCD's Lines/Catheters IV [facility] Urinary Cath still in place: No Assessment/Plan Chief Complaint/Hosp Course Assessment and plan 1. Chest pain. Atypical. 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 Continue with screwmaker automatic recommendations 2. Hypertension. Continue antihypertensives and adjust as needed. 3. Diabetes. Continue insulin regimen. Stable at present. 4. CKD. With worsening creatinine today. Follow-up with resource center teacher. Continue house. 5. Dyslipidemia. Continue on statin medication. 6. History of cocaine abuse. Cessation was advised. 7. History of degenerative disc disease. Currently on steroid. Disposition plan: Follow-up on renal panel. Monitor for improvement of renal function. Discharge when medically stable and cleared by consultants. Discussed plan of care with Dr. Bowers Problems: Subjective 24 Hr Interval Summary Free Text/Dictation Comfortable at present. Denies any chest pain. Exam/Review of Systems Vital Signs Vitals Vital Signs Date Time Temp Pulse Resp B/P Pulse Ox O2 Delivery O2 Flow Rate FiO2 08/04/17 12:10 71 08/04/17 11:23 97.6 17 149/84 97 08/03/17 20:00 Nasal Cannula 2.0 Intake and Output 08/03/17 08/03/17 08/04/17 15:00 23:00 07:00 Intake Total 100 ml 1100 ml 1000 ml Output Total 800 ml 1070 ml Balance 100 ml 300 ml -70 ml Exam Constitutional: alert, oriented Psych: nl mood/affect Head: normocephalic Neck: non-tender, supple Respiratory: clear to auscultation, normal air movement Cardiovascular: regular rate and rhythm Gastrointestinal: non-tender, soft Neurological: ENTERTAINMENT REPORTER II-XII intact, nl mental status, nl speech Skin: nl turgor Results Result Diagram: 08/04/17 0608/04/17 06 Results 24 hrs Laboratory Tests Test 08/03/17 16:58 08/03/17 22:23 08/04/17 01:22 08/04/17 06:06 Bedside Glucose 297 H 291 H 261 H White Blood Count 7.7 # Red Blood Count 3.08 L Hemoglobin 8.5 L Hematocrit 25.8 L Mean Corpuscular Volume 83.8 Mean Corpuscular Hemoglobin 27.6 L Mean Corpuscular Hemoglobin Concent 32.9 Red Cell Distribution Width 13.3 Platelet Count 235 Mean Platelet Volume 11.6 H Neutrophils % 71.7 Lymphocytes % 17.6 Monocytes % 9.1 Eosinophils % 0.9 Basophils % 0.3 Nucleated Red Blood Cells % 0.0 Neutrophils # 5.5 Lymphocytes # 1.4 Monocytes # 0.7 Eosinophils # 0.1 Basophils # 0.0 Nucleated Red Blood Cells # 0.0 Sodium Level 139 Potassium Level 4.0 Chloride Level 104 Carbon Dioxide Level 30 Anion Gap 9 Blood Urea Nitrogen 39 #H Creatinine 2.02 H Glucose Level 172 Calcium Level 8.3 L Test 08/04/17 08:19 08/04/17 12:05 Bedside Glucose 192 128 Medications Medications Current Medications Nitroglycerin (Nitroglycerin (Sl Tab) 0.4 Mg) 1 tab Q5M PRN SL ANGINA; Start 08/02/17 at 03:30 Miscellaneous Information 1 ea NOTE XX ; Start 08/02/17 at 04:00 Glucose (Glutose) 15 gm Q15M PRN PO DECREASED GLUCOSE; Start 08/02/17 at 04:00 Glucose (Glutose) 22.5 gm Q15M PRN PO DECREASED GLUCOSE; Start 08/02/17 at 04: 00 Dextrose (D50w Syringe) 25 ml Q15M PRN IV DECREASED GLUCOSE; Start 08/02/17 at 04:00 Dextrose (D50w Syringe) 50 ml Q15M PRN IV DECREASED GLUCOSE; Start 08/02/17 at 04:00 Glucagon (Glucagen) 1 mg Q15M PRN IM DECREASED GLUCOSE; Start 08/02/17 at 04:00 Glucose (Glutose) 15 gm Q15M PRN BUCCAL DECREASED GLUCOSE; Start 08/02/17 at 04 :00 Amlodipine Besylate (Norvasc) 10 mg QHS PO Last administered on 08/03/17 22:11 ; Admin Dose 10 MG; Start 08/02/17 at 21:00 Atorvastatin Calcium (Lipitor) 80 mg QHS PO Last administered on 08/03/17 22: 12; Admin Dose 80 MG; Start 08/02/17 at 21:00 Cholecalciferol (Vitamin D) 1,000 unit DAILY PO Last administered on 08/04/17 08:21; Admin Dose 1,000 UNIT; Start 08/02/17 at 09:00 EZETIMIBE (Zetia) 10 mg DAILY PO Last administered on 08/04/17 08:21; Admin Dose 10 MG; Start 08/02/17 at 09:00 Hydralazine HCl (Apresoline) 100 mg Q8 PO Last administered on 08/04/17 14:04 ; Admin Dose 100 MG; Start 08/02/17 at 06:00 Lisinopril (Zestril) 40 mg DAILY PO Last administered on 08/02/17 09:37; Admin Dose 40 MG; Start 08/02/17 at 09:00; Status Future Hold Oxycodone/ Acetaminophen (Percocet (5/ 325)) 1 tab Q6H PO Last administered on 08/04/17 06:18; Admin Dose 1 TAB; Start 08/02/17 at 05:00 Potassium Chloride (Klor-Con 20) 20 meq DAILY PO Last administered on 08:22; Admin Dose 20 MEQ; Start 08/02/17 at 09:00 Guaifenesin/ Dextromethorphan 10 ml 10 ml Q4H PRN PO COUGH Last administered on 08/04/17 06:21; Admin Dose 10 ML; Start 08/02/17 at 08:00 Levofloxacin/ Dextrose (Levaquin 500mg/ D5W 100 ml (Pmx)) 100 ml @ 100 mls/hr Q24H IVPB Last administered on 08/04/17 08:24; Admin Dose 100 MLS/HR; Start 08/02/17 at 09:00 Furosemide (Lasix) 40 mg DAILY IV Last administered on 08/04/17 08:29; Admin Dose 40 MG; Start 08/02/17 at 09:00 Methylprednisolone Sodium Succinate (Solu-Medrol) 40 mg DAILY IV Last administered on 08/04/17 08:29; Admin Dose 40 MG; Start 08/02/17 at 09:00 Hydroxyzine HCl (Atarax) 25 mg Q6H PRN PO ITCHING Last administered on 08:38; Admin Dose 25 MG; Start 08/02/17 at 09:00 Carvedilol (Coreg) 3.125 mg BID PO Last administered on 08/04/17 08:22; Admin Dose 3.125 MG; Start 08/02/17 at 21:00 Famotidine (Pepcid) 20 mg DAILY PO Last administered on 08/04/17 08:22; Admin Dose 20 MG; Start 08/02/17 at 13:00 Morphine Sulfate (morphine) 4 mg Q4H PRN IV PAIN LEVEL 4-7 Last administered on 08/04/17 10:50; Admin Dose 4 MG; Start 08/03/17 at 00:45 Hydralazine HCl (Apresoline) 10 mg Q4H PRN IV ELEVATED BLOOD PRESSURE Last administered on 08/03/17 01:05; Admin Dose 10 MG; Start 08/03/17 at 01:00 Heparin Sodium (Porcine) (Heparin (5000 Units/0.5 ml)) 5,000 unit BID SC Last administered on 08/04/17 08:45; Admin Dose 5,000 UNIT; Start 08/03/17 at 21:00 Insulin Glargine (Lantus) 34 unit QHS SC ; Start 08/04/17 at 21:00 Magnesium Hydroxide (Milk Of Mag) 30 ml BID PRN PO CONSTIPATION; Start at 13:00 Senna (Senokot) 2 tab BID PO Last administered on 08/04/17 14:03; Admin Dose 2 TAB; Start 08/04/17 at 13:00 Bisacodyl (Dulcolax Supp) 10 mg DAILY PRN [place] CONSTIPATION; Start 08/04/17 at 13 :00 BREANA MORALES Aug 04, 2017 14:36
[2017-08-04] MEDS: ATORVASTATIN 80 MG TAB PO SCH (20:33)
[2017-08-04] MEDS: AMLODIPINE 10 MG TAB PO SCH (20:33)
[2017-08-04] MEDS: MAGNESIUM HYDROXIDE 30ML CUP PO PRN (20:33)
[2017-08-04] MEDS: INSULIN GLARGINE [LANtus] 3 ML PEN SC SCH (20:58)
[2017-08-05] VITALS (10 sets, daily range): BP systolic 144–172; BP diastolic 72–85; PULSE 66–81; RESP 17–20
[2017-08-05] MEDS ORDERED: INSULIN ASPART [NOVOLOG] 3 ML PEN SC ONE (03:00)
[2017-08-05] MEDS: OXYCODONE/ACETAMINOPHEN (5/325) TAB PO SCH ×3 (05:39→22:13)
[2017-08-05 06:15] LABS: BASOPHILS % 0.1 % (0.0-2.0); EOSINOPHILS % 0.4 % (0.0-7.0); HEMATOCRIT 25.2 % (42.0-52.0); HEMOGLOBIN 8.5 g/dl (14.0-18.0); LYMPHOCYTES # 1.4 10^3/ul (0.8-2.9); LYMPHOCYTES % 18.7 % (15.0-51.0); MEAN CORPUSCULAR HEMOGLOBIN 27.8 pg (29.0-33.0); MEAN CORPUSCULAR HGB CONC 33.7 g/dl (32.0-37.0); MEAN CORPUSCULAR VOLUME 82.4 fl (82.0-101.0); MEAN PLATELET VOLUME 11.6 fl (7.4-10.4); MONOCYTE # 0.6 10^3/ul (0.3-0.9); MONOCYTES % 8.7 % (0.0-11.0); NEUTROPHIL # 5.2 10^3/ul (1.6-7.5); NEUTROPHILS % 71.5 % (39.0-77.0); PLATELET COUNT 223 10^3/UL (140-415); RED BLOOD COUNT 3.06 10^6/ul (4.70-6.10); RED CELL DISTRIBUTION WIDTH 13.1 % (11.5-14.5); WHITE BLOOD COUNT 7.3 10^3/ul (4.8-10.8)
[2017-08-05 06:50] LABS: CALCIUM 8.2 mg/dl (8.4-10.2); POTASSIUM 3.4 mmol/L (3.5-5.1)
[2017-08-05] MEDS: INSULIN ASPART [NOVOLOG] 3 ML PEN SC SCH ×7 (08:32→20:52)
[2017-08-05] MEDS: LEVOFLOXACIN 500MG/D5W (PMX) 100 ML IVPB SCH (09:11)
[2017-08-05] MEDS: SENNA TAB PO SCH ×2 (09:14→20:46)
[2017-08-05] MEDS: POTASSIUM CHLORIDE (SR) 20 MEQ TAB PO SCH (09:14)
[2017-08-05] MEDS: FAMOTIDINE 20 MG TAB PO SCH (09:14)
[2017-08-05] MEDS: EZETIMIBE 10 MG TAB PO SCH (09:15)
[2017-08-05] MEDS: CHOLECALCIFEROL 1,000 UNIT TAB PO SCH (09:15)
[2017-08-05] MEDS: FUROSEMIDE 40 MG INJ IV SCH (09:16)
[2017-08-05] MEDS: METHYLPREDNISOLONE 40 MG INJ IV SCH (09:17)
[2017-08-05] MEDS: HEPARIN 5,000 UNIT/0.5 ML VIAL SC SCH ×2 (09:46→20:53)
--- NOTE | 2017-08-05 12:47 | PN ---
Date/Time of Note Date/Time of Note DATE: 08/05/17 TIME: 12:43 Assessment/Plan VTE Prophylaxis VTE Prophylaxis Intervention: SCD's Lines/Catheters IV Catheter Type (from Nrs): Mid Line Urinary Cath still in place: No Assessment/Plan Chief Complaint/Hosp Course Assessment and plan 1. Chest pain. Atypical. 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 Hypertension. Continue antihypertensives and adjust as needed. 3. Diabetes. Continue insulin regimen. Stable at present. 4. CKD. minimally improved today. f/u nephrology recs. medications renally dosed 5. Dyslipidemia. Continue on statin medication. 6. History of cocaine abuse. Cessation was advised. 7. History of degenerative disc disease. Currently on steroid. 8. Urinary retention. Etiology unknown. Follow-up on PSA. Start Flomax Disposition plan: Monitor for improvement in renal function. Noted with urinary retention, start on Flomax and follow-up on PSA. transfer to med/surg. more swelling on legs. diuretics per nephro Discussed plan of care with Dr. Bowers Problems: Subjective 24 Hr Interval Summary Free Text/Dictation reports having some difficulty voiding Exam/Review of Systems Vital Signs Vitals Vital Signs Date Time Temp Pulse Resp B/P Pulse Ox O2 Delivery O2 Flow Rate FiO2 08/05/17 12:15 75 08/05/17 11:36 97.5 17 169/83 96 08/04/17 23:58 Nasal Cannula 2.0 Intake and Output 08/04/17 08/04/17 08/05/17 15:00 23:00 07:00 Intake Total 1000 ml 200 ml Output Total 1600 ml 350 ml Balance -600 ml -150 ml Exam Constitutional: alert, oriented Psych: nl mood/affect Head: normocephalic Neck: non-tender, supple Respiratory: clear to auscultation, normal air movement Cardiovascular: regular rate and rhythm Gastrointestinal: non-tender, soft Neurological: 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, nl mental status, nl speech Skin: swelling ble Results Result Diagram: 08/05/17 0527 08/05/1727 Results 24 hrs Laboratory Tests Test 08/04/17 17:47 08/04/17 20:43 08/04/17 23:37 08/05/17 02:36 Bedside Glucose 240 H 369 H 333 H 295 H Test 08/05/17 05:27 08/05/17 08:29 08/05/17 11:57 White Blood Count 7.3 Red Blood Count 3.06 L Hemoglobin 8.5 L Hematocrit 25.2 L Mean Corpuscular Volume 82.4 Mean Corpuscular Hemoglobin 27.8 L Mean Corpuscular Hemoglobin Concent 33.7 Red Cell Distribution Width 13.1 Platelet Count 223 Mean Platelet Volume 11.6 H Neutrophils % 71.5 Lymphocytes % 18.7 Monocytes % 8.7 Eosinophils % 0.4 Basophils % 0.1 Nucleated Red Blood Cells % 0.0 Neutrophils # 5.2 Lymphocytes # 1.4 Monocytes # 0.6 Eosinophils # 0.0 Basophils # 0.0 Nucleated Red Blood Cells # 0.0 Sodium Level 138 Potassium Level 3.4 L Chloride Level 104 Carbon Dioxide Level 27 Anion Gap 10 Blood Urea Nitrogen 48 H Creatinine 2.00 H Glucose Level 224 H Calcium Level 8.2 L Bedside Glucose 156 110 Medications Medications Current Medications Nitroglycerin (Nitroglycerin (Sl Tab) 0.4 Mg) 1 tab Q5M PRN SL ANGINA; Start 08/02/17 at 03:30 Miscellaneous Information 1 ea NOTE XX ; Start 08/02/17 at 04:00 Glucose (Glutose) 15 gm Q15M PRN PO DECREASED GLUCOSE; Start 08/02/17 at 04:00 Glucose (Glutose) 22.5 gm Q15M PRN PO DECREASED GLUCOSE; Start 08/02/17 at 04: 00 Dextrose (D50w Syringe) 25 ml Q15M PRN IV DECREASED GLUCOSE; Start 08/02/17 at 04:00 Dextrose (D50w Syringe) 50 ml Q15M PRN IV DECREASED GLUCOSE; Start 08/02/17 at 04:00 Glucagon (Glucagen) 1 mg Q15M PRN IM DECREASED GLUCOSE; Start 08/02/17 at 04:00 Glucose (Glutose) 15 gm Q15M PRN BUCCAL DECREASED GLUCOSE; Start 08/02/17 at 04 :00 Amlodipine Besylate (Norvasc) 10 mg QHS PO Last administered on 08/04/17 20:33 ; Admin Dose 10 MG; Start 08/02/17 at 21:00 Atorvastatin Calcium (Lipitor) 80 mg QHS PO Last administered on 08/04/17 20: 33; Admin Dose 80 MG; Start 08/02/17 at 21:00 Cholecalciferol (Vitamin D) 1,000 unit DAILY PO Last administered on 09:15; Admin Dose 1,000 UNIT; Start 08/02/17 at 09:00 EZETIMIBE (Zetia) 10 mg DAILY PO Last administered on 08/05/17 09:15; Admin Dose 10 MG; Start 08/02/17 at 09:00 Hydralazine HCl (Apresoline) 100 mg Q8 PO Last administered on 08/05/17 05:40 ; Admin Dose 100 MG; Start 08/02/17 at 06:00 Lisinopril (Zestril) 40 mg DAILY PO Last administered on 08/02/17 09:37; Admin Dose 40 MG; Start 08/02/17 at 09:00; Status Future Hold Oxycodone/ Acetaminophen (Percocet (5/ 325)) 1 tab Q6H PO Last administered on 08/05/17 11:09; Admin Dose 1 TAB; Start 08/02/17 at 05:00 Potassium Chloride (Klor-Con 20) 20 meq DAILY PO Last administered on 09:14; Admin Dose 20 MEQ; Start 08/02/17 at 09:00 Guaifenesin/ Dextromethorphan 10 ml 10 ml Q4H PRN PO COUGH Last administered on 08/04/17 06:21; Admin Dose 10 ML; Start 08/02/17 at 08:00 Levofloxacin/ Dextrose (Levaquin 500mg/ D5W 100 ml (Pmx)) 100 ml @ 100 mls/hr Q24H IVPB Last administered on 08/05/17 09:11; Admin Dose 100 MLS/HR; Start 08/02/17 at 09:00 Furosemide (Lasix) 40 mg DAILY IV Last administered on 08/05/17 09:16; Admin Dose 40 MG; Start 08/02/17 at 09:00 Hydroxyzine HCl (Atarax) 25 mg Q6H PRN PO ITCHING Last administered on 08:38; Admin Dose 25 MG; Start 08/02/17 at 09:00 Carvedilol (Coreg) 3.125 mg BID PO Last administered on 08/05/17 09:15; Admin Dose 3.125 MG; Start 08/02/17 at 21:00 Famotidine (Pepcid) 20 mg DAILY PO Last administered on 08/05/17 09:14; Admin Dose 20 MG; Start 08/02/17 at 13:00 Morphine Sulfate (morphine) 4 mg Q4H PRN IV PAIN LEVEL 4-7 Last administered on 08/04/17 10:50; Admin Dose 4 MG; Start 08/03/17 at 00:45 Hydralazine HCl (Apresoline) 10 mg Q4H PRN IV ELEVATED BLOOD PRESSURE Last administered on 08/03/17 01:05; Admin Dose 10 MG; Start 08/03/17 at 01:00 Heparin Sodium (Porcine) (Heparin (5000 Units/0.5 ml)) 5,000 unit BID SC Last administered on 08/05/17 09:46; Admin Dose 5,000 UNIT; Start 08/03/17 at 21:00 Insulin Glargine (Lantus) 34 unit QHS SC Last administered on 08/04/17 20:58; Admin Dose 34 UNIT; Start 08/04/17 at 21:00 Magnesium Hydroxide (Milk Of Mag) 30 ml BID PRN PO CONSTIPATION Last administered on 08/04/17 20:33; Admin Dose 30 ML; Start 08/04/17 at 13:00 Senna (Senokot) 2 tab BID PO Last administered on 08/05/17 09:14; Admin Dose 2 TAB; Start 08/04/17 at 13:00 Bisacodyl (Dulcolax Supp) 10 mg DAILY PRN [place] CONSTIPATION; Start 08/04/17 at 13 :00 BREANA MORALES Aug 05, 2017 12:47
[2017-08-05] MEDS ORDERED: TAMSULOSIN (SR) 0.4 MG CAP PO ONE (13:00)
[2017-08-05] MEDS: morphine 4 MG/ML VIAL IV PRN (17:05)
--- NOTE | 2017-08-05 19:07 | CONS ---
Date/Time of Note Date/Time of Note DATE: 08/05/17 TIME: 19:07 Assessment/Plan Assessment/Plan Additional Assessment/Plan 42 yo male with 1) Chest Pain 2) Acute Diastolic Heart failure 3) Uncontrolled HTN, Chronic, ? Compliance 4) History of DM 5) Likely MARIA DEL CARMEN on CKD stage unspecified 6) Anemia, Normocytic, likely chronic diease 7) Hx of DVT, No evidence on this admission 8) Urinary Retention Cont current Rx and plan Diuretic Rx IV monitor electrolytes, UO and renal fuction Cr stable. On flomax Will cont to closely follow along with you. Consultation Date/Type/Reason Admit Date/Time Aug 02, 2017 at 01:07 Initial Consult Date 08/02/17 Type of Consultation: renal Referring Provider: CLARITA VERMA 24 HR Interval Summary Constitutional: No requiring O2 Exam/Review of Systems Vital Signs Vitals Vital Signs Date Time Temp Pulse Resp B/P Pulse Ox O2 Delivery O2 Flow Rate FiO2 08/05/17 18:59 81 08/05/17 15:14 98.0 17 144/76 97 08/05/17 08:05 Nasal Cannula 2.0 Intake and Output 08/04/17 08/04/17 08/05/17 15:00 23:00 07:00 Intake Total 1000 ml 200 ml Output Total 1600 ml 350 ml Balance -600 ml -150 ml Exam Constitutional: No distress ENMT: mucosa pink and moist Neck: No jvd Respiratory: No labored breathing Cardiovascular: edema Neurological: nl mental status, No lethargic Skin: No diaphoresis Results Result Diagram: 08/05/17 0527 08/05/17 0527 Results 24 hrs Laboratory Tests Test 08/04/17 20:43 08/04/17 23:37 08/05/17 02:36 08/05/17 05:27 Bedside Glucose 369 H 333 H 295 H White Blood Count 7.3 Red Blood Count 3.06 L Hemoglobin 8.5 L Hematocrit 25.2 L Mean Corpuscular Volume 82.4 Mean Corpuscular Hemoglobin 27.8 L Mean Corpuscular Hemoglobin Concent 33.7 Red Cell Distribution Width 13.1 Platelet Count 223 Mean Platelet Volume 11.6 H Neutrophils % 71.5 Lymphocytes % 18.7 Monocytes % 8.7 Eosinophils % 0.4 Basophils % 0.1 Nucleated Red Blood Cells % 0.0 Neutrophils # 5.2 Lymphocytes # 1.4 Monocytes # 0.6 Eosinophils # 0.0 Basophils # 0.0 Nucleated Red Blood Cells # 0.0 Sodium Level 138 Potassium Level 3.4 L Chloride Level 104 Carbon Dioxide Level 27 Anion Gap 10 Blood Urea Nitrogen 48 H Creatinine 2.00 H Glucose Level 224 H Calcium Level 8.2 L Test 08/05/17 08:29 08/05/17 11:57 08/05/17 17:57 Bedside Glucose 156 110 162 Medications Medications Current Medications Nitroglycerin (Nitroglycerin (Sl Tab) 0.4 Mg) 1 tab Q5M PRN SL ANGINA; Start 08/02/17 at 03:30 Miscellaneous Information 1 ea NOTE XX ; Start 08/02/17 at 04:00 Glucose (Glutose) 15 gm Q15M PRN PO DECREASED GLUCOSE; Start 08/02/17 at 04:00 Glucose (Glutose) 22.5 gm Q15M PRN PO DECREASED GLUCOSE; Start 08/02/17 at 04: 00 Dextrose (D50w Syringe) 25 ml Q15M PRN IV DECREASED GLUCOSE; Start 08/02/17 at 04:00 Dextrose (D50w Syringe) 50 ml Q15M PRN IV DECREASED GLUCOSE; Start 08/02/17 at 04:00 Glucagon (Glucagen) 1 mg Q15M PRN IM DECREASED GLUCOSE; Start 08/02/17 at 04:00 Glucose (Glutose) 15 gm Q15M PRN BUCCAL DECREASED GLUCOSE; Start 08/02/17 at 04 :00 Amlodipine Besylate (Norvasc) 10 mg QHS PO Last administered on 08/04/17 20:33 ; Admin Dose 10 MG; Start 08/02/17 at 21:00 Atorvastatin Calcium (Lipitor) 80 mg QHS PO Last administered on 08/04/17 20: 33; Admin Dose 80 MG; Start 08/02/17 at 21:00 Cholecalciferol (Vitamin D) 1,000 unit DAILY PO Last administered on 09:15; Admin Dose 1,000 UNIT; Start 08/02/17 at 09:00 EZETIMIBE (Zetia) 10 mg DAILY PO Last administered on 08/05/17 09:15; Admin Dose 10 MG; Start 08/02/17 at 09:00 Hydralazine HCl (Apresoline) 100 mg Q8 PO Last administered on 08/05/17 14:57 ; Admin Dose 100 MG; Start 08/02/17 at 06:00 Lisinopril (Zestril) 40 mg DAILY PO Last administered on 08/02/17 09:37; Admin Dose 40 MG; Start 08/02/17 at 09:00; Status Future Hold Oxycodone/ Acetaminophen (Percocet (5/ 325)) 1 tab Q6H PO Last administered on 08/05/17 11:09; Admin Dose 1 TAB; Start 08/02/17 at 05:00 Potassium Chloride (Klor-Con 20) 20 meq DAILY PO Last administered on 09:14; Admin Dose 20 MEQ; Start 08/02/17 at 09:00 Guaifenesin/ Dextromethorphan 10 ml 10 ml Q4H PRN PO COUGH Last administered on 08/04/17 06:21; Admin Dose 10 ML; Start 08/02/17 at 08:00 Levofloxacin/ Dextrose (Levaquin 500mg/ D5W 100 ml (Pmx)) 100 ml @ 100 mls/hr Q24H IVPB Last administered on 08/05/17 09:11; Admin Dose 100 MLS/HR; Start 08/02/17 at 09:00 Furosemide (Lasix) 40 mg DAILY IV Last administered on 08/05/17 09:16; Admin Dose 40 MG; Start 08/02/17 at 09:00 Hydroxyzine HCl (Atarax) 25 mg Q6H PRN PO ITCHING Last administered on 08:38; Admin Dose 25 MG; Start 08/02/17 at 09:00 Carvedilol (Coreg) 3.125 mg BID PO Last administered on 08/05/17 09:15; Admin Dose 3.125 MG; Start 08/02/17 at 21:00 Famotidine (Pepcid) 20 mg DAILY PO Last administered on 08/05/17 09:14; Admin Dose 20 MG; Start 08/02/17 at 13:00 Morphine Sulfate (morphine) 4 mg Q4H PRN IV PAIN LEVEL 4-7 Last administered on 08/05/17 17:05; Admin Dose 4 MG; Start 08/03/17 at 00:45 Hydralazine HCl (Apresoline) 10 mg Q4H PRN IV ELEVATED BLOOD PRESSURE Last administered on 08/03/17 01:05; Admin Dose 10 MG; Start 08/03/17 at 01:00 Heparin Sodium (Porcine) (Heparin (5000 Units/0.5 ml)) 5,000 unit BID SC Last administered on 08/05/17 09:46; Admin Dose 5,000 UNIT; Start 08/03/17 at 21:00 Insulin Glargine (Lantus) 34 unit QHS SC Last administered on 08/04/17 20:58; Admin Dose 34 UNIT; Start 08/04/17 at 21:00 Magnesium Hydroxide (Milk Of Mag) 30 ml BID PRN PO CONSTIPATION Last administered on 08/04/17 20:33; Admin Dose 30 ML; Start 08/04/17 at 13:00 Senna (Senokot) 2 tab BID PO Last administered on 08/05/17 09:14; Admin Dose 2 TAB; Start 08/04/17 at 13:00 Bisacodyl (Dulcolax Supp) 10 mg DAILY PRN [place] CONSTIPATION; Start 08/04/17 at 13 :00 Tamsulosin HCl (Flomax) 0.4 mg Q24H PO ; Start 08/06/17 at 13:00 ROSEMARY PRUETT MD Aug 05, 2017 19:07
[2017-08-05] MEDS: ATORVASTATIN 80 MG TAB PO SCH (20:46)
[2017-08-05] MEDS: AMLODIPINE 10 MG TAB PO SCH (20:46)
[2017-08-05] MEDS: INSULIN GLARGINE [LANtus] 3 ML PEN SC SCH (21:51)
[2017-08-06 02:05] VITALS: BP 169/87; RESP 18
[2017-08-06] MEDS: morphine 4 MG/ML VIAL IV PRN ×2 (02:21→19:04)
[2017-08-06] MEDS: OXYCODONE/ACETAMINOPHEN (5/325) TAB PO SCH ×4 (05:43→23:00)
[2017-08-06 05:57] LABS: BASOPHILS % 0.3 % (0.0-2.0); EOSINOPHILS # 0.1 10^3/ul (0.0-0.5); EOSINOPHILS % 0.9 % (0.0-7.0); HEMATOCRIT 24.7 % (42.0-52.0); HEMOGLOBIN 8.2 g/dl (14.0-18.0); LYMPHOCYTES # 1.7 10^3/ul (0.8-2.9); LYMPHOCYTES % 22.5 % (15.0-51.0); MEAN CORPUSCULAR HEMOGLOBIN 27.7 pg (29.0-33.0); MEAN CORPUSCULAR HGB CONC 33.2 g/dl (32.0-37.0); MEAN CORPUSCULAR VOLUME 83.4 fl (82.0-101.0); MEAN PLATELET VOLUME 11.7 fl (7.4-10.4); MONOCYTE # 0.7 10^3/ul (0.3-0.9); MONOCYTES % 9.2 % (0.0-11.0); NEUTROPHIL # 4.9 10^3/ul (1.6-7.5); NEUTROPHILS % 66.3 % (39.0-77.0); PLATELET COUNT 211 10^3/UL (140-415); RED BLOOD COUNT 2.96 10^6/ul (4.70-6.10); RED CELL DISTRIBUTION WIDTH 13.2 % (11.5-14.5); WHITE BLOOD COUNT 7.4 10^3/ul (4.8-10.8)
[2017-08-06 06:24] LABS: CALCIUM 7.8 mg/dl (8.4-10.2); CREATININE 1.93 mg/dl (0.61-1.24); POTASSIUM 3.5 mmol/L (3.5-5.1)
[2017-08-06 07:21] VITALS: BP 172/91; RESP 18
[2017-08-06] MEDS: EZETIMIBE 10 MG TAB PO SCH (08:03)
[2017-08-06] MEDS: FUROSEMIDE 40 MG INJ IV SCH (08:03)
[2017-08-06] MEDS: CHOLECALCIFEROL 1,000 UNIT TAB PO SCH (08:04)
[2017-08-06] MEDS: POTASSIUM CHLORIDE (SR) 20 MEQ TAB PO SCH (08:04)
[2017-08-06] MEDS: LEVOFLOXACIN 500MG/D5W (PMX) 100 ML IVPB SCH (08:05)
[2017-08-06] MEDS: SENNA TAB PO SCH ×2 (08:05→20:58)
[2017-08-06] MEDS: FAMOTIDINE 20 MG TAB PO SCH (08:05)
[2017-08-06] MEDS: INSULIN ASPART [NOVOLOG] 3 ML PEN SC SCH ×6 (08:13→21:00)
[2017-08-06] MEDS: HEPARIN 5,000 UNIT/0.5 ML VIAL SC SCH ×2 (08:13→21:02)
--- NOTE | 2017-08-06 12:34 | PN ---
Date/Time of Note Date/Time of Note DATE: 08/06/17 TIME: 12:29 Assessment/Plan VTE Prophylaxis VTE Prophylaxis Intervention: heparin Lines/Catheters IV [facility]from [facility] [place] Urinary Cath still in place: No Assessment/Plan Chief Complaint/Hosp Course Assessment and plan 1. Chest pain. Atypical. 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 Hypertension. Continue antihypertensives and adjust as needed. 3. Diabetes. Continue insulin regimen. Stable at present. 4. CKD. minimally improved today. f/u nephrology recs. medications renally dosed. With worse swelling BLE 5. Dyslipidemia. Continue on statin medication. 6. History of cocaine abuse. Cessation was advised. 7. History of degenerative disc disease. Currently on steroid. 8. Urinary retention. Etiology unknown. Follow-up on PSA. Start Flomax Disposition plan: renal function slowly improving but still with low urine output. More swelling noted BLE. increase diuretic per neprho. check BLE ultrasound. Discussed plan of care with Dr. Lee Problems: Subjective 24 Hr Interval Summary Free Text/Dictation reports more swelling BLE with some pain Exam/Review of Systems Vital Signs Vitals Vital Signs Date Time Temp Pulse Resp B/P Pulse Ox O2 Delivery O2 Flow Rate FiO2 08/06/17 07:21 97.8 74 18 172/91 98 08/05/17 08:05 Nasal Cannula 2.0 Intake and Output 08/05/17 08/05/17 08/06/17 15:00 23:00 07:00 Intake Total 1300 ml 700 ml Output Total 2200 ml 800 ml Balance -900 ml -100 ml Exam Constitutional: alert, oriented Psych: nl mood/affect Head: normocephalic Neck: non-tender, supple Respiratory: clear to auscultation, normal air movement Cardiovascular: regular rate and rhythm Gastrointestinal: non-tender, soft Neurological: 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 II-XII intact, nl mental status, nl speech Skin: swelling ble, worse today Results Result Diagram: 08/06/17 0505 08/06/17 0505 Results 24 hrs Laboratory Tests Test 08/05/17 17:57 08/05/17 20:44 08/05/17 21:49 08/06/17 02:17 Bedside Glucose 162 199 215 256 H Test 08/06/17 05:05 08/06/17 08:08 White Blood Count 7.4 Red Blood Count 2.96 L Hemoglobin 8.2 L Hematocrit 24.7 L Mean Corpuscular Volume 83.4 Mean Corpuscular Hemoglobin 27.7 L Mean Corpuscular Hemoglobin Concent 33.2 Red Cell Distribution Width 13.2 Platelet Count 211 Mean Platelet Volume 11.7 H Neutrophils % 66.3 Lymphocytes % 22.5 Monocytes % 9.2 Eosinophils % 0.9 Basophils % 0.3 Nucleated Red Blood Cells % 0.0 Neutrophils # 4.9 Lymphocytes # 1.7 Monocytes # 0.7 Eosinophils # 0.1 Basophils # 0.0 Nucleated Red Blood Cells # 0.0 Sodium Level 138 Potassium Level 3.5 Chloride Level 105 Carbon Dioxide Level 28 Anion Gap 9 Blood Urea Nitrogen 48 H Creatinine 1.93 H Glucose Level 190 Calcium Level 7.8 L Bedside Glucose 179 Medications Medications Current Medications Nitroglycerin (Nitroglycerin (Sl Tab) 0.4 Mg) 1 tab Q5M PRN SL ANGINA; Start 08/02/17 at 03:30 Miscellaneous Information 1 ea NOTE XX ; Start 08/02/17 at 04:00 Glucose (Glutose) 15 gm Q15M PRN PO DECREASED GLUCOSE; Start 08/02/17 at 04:00 Glucose (Glutose) 22.5 gm Q15M PRN PO DECREASED GLUCOSE; Start 08/02/17 at 04: 00 Dextrose (D50w Syringe) 25 ml Q15M PRN IV DECREASED GLUCOSE; Start 08/02/17 at 04:00 Dextrose (D50w Syringe) 50 ml Q15M PRN IV DECREASED GLUCOSE; Start 08/02/17 at 04:00 Glucagon (Glucagen) 1 mg Q15M PRN IM DECREASED GLUCOSE; Start 08/02/17 at 04:00 Glucose (Glutose) 15 gm Q15M PRN BUCCAL DECREASED GLUCOSE; Start 08/02/17 at 04 :00 Amlodipine Besylate (Norvasc) 10 mg QHS PO Last administered on 08/05/17 20: 46; Admin Dose 10 MG; Start 08/02/17 at 21:00 Atorvastatin Calcium (Lipitor) 80 mg QHS PO Last administered on 08/05/17 20: 46; Admin Dose 80 MG; Start 08/02/17 at 21:00 Cholecalciferol (Vitamin D) 1,000 unit DAILY PO Last administered on 08:04; Admin Dose 1,000 UNIT; Start 08/02/17 at 09:00 EZETIMIBE (Zetia) 10 mg DAILY PO Last administered on 08/06/17 08:03; Admin Dose 10 MG; Start 08/02/17 at 09:00 Hydralazine HCl (Apresoline) 100 mg Q8 PO Last administered on 08/06/17 05:42 ; Admin Dose 100 MG; Start 08/02/17 at 06:00 Lisinopril (Zestril) 40 mg DAILY PO Last administered on 08/02/17 09:37; Admin Dose 40 MG; Start 08/02/17 at 09:00; Status Future Hold Oxycodone/ Acetaminophen (Percocet (5/ 325)) 1 tab Q6H PO Last administered on 08/06/17 11:26; Admin Dose 1 TAB; Start 08/02/17 at 05:00 Potassium Chloride (Klor-Con 20) 20 meq DAILY PO Last administered on 08:04; Admin Dose 20 MEQ; Start 08/02/17 at 09:00 Guaifenesin/ Dextromethorphan 10 ml 10 ml Q4H PRN PO COUGH Last administered on 08/04/17 06:21; Admin Dose 10 ML; Start 08/02/17 at 08:00 Levofloxacin/ Dextrose (Levaquin 500mg/ D5W 100 ml (Pmx)) 100 ml @ 100 mls/hr Q24H IVPB Last administered on 08/06/17 08:05; Admin Dose 100 MLS/HR; Start 08/02/17 at 09:00 Furosemide (Lasix) 40 mg DAILY IV Last administered on 08/06/17 08:03; Admin Dose 40 MG; Start 08/02/17 at 09:00 Hydroxyzine HCl (Atarax) 25 mg Q6H PRN PO ITCHING Last administered on 08:38; Admin Dose 25 MG; Start 08/02/17 at 09:00 Carvedilol (Coreg) 3.125 mg BID PO Last administered on 08/06/17 08:04; Admin Dose 3.125 MG; Start 08/02/17 at 21:00 Famotidine (Pepcid) 20 mg DAILY PO Last administered on 08/06/17 08:05; Admin Dose 20 MG; Start 08/02/17 at 13:00 Morphine Sulfate (morphine) 4 mg Q4H PRN IV PAIN LEVEL 4-7 Last administered on 08/06/17 02:21; Admin Dose 4 MG; Start 08/03/17 at 00:45 Hydralazine HCl (Apresoline) 10 mg Q4H PRN IV ELEVATED BLOOD PRESSURE Last administered on 08/03/17 01:05; Admin Dose 10 MG; Start 08/03/17 at 01:00 Heparin Sodium (Porcine) (Heparin (5000 Units/0.5 ml)) 5,000 unit BID SC Last administered on 08/06/17 08:13; Admin Dose 5,000 UNIT; Start 08/03/17 at 21:00 Magnesium Hydroxide (Milk Of Mag) 30 ml BID PRN PO CONSTIPATION Last administered on 08/04/17 20:33; Admin Dose 30 ML; Start 08/04/17 at 13:00 Senna (Senokot) 2 tab BID PO Last administered on 08/06/17 08:05; Admin Dose 2 TAB; Start 08/04/17 at 13:00 Bisacodyl (Dulcolax Supp) 10 mg DAILY PRN [place] CONSTIPATION; Start 08/04/17 at 13 :00 Tamsulosin HCl (Flomax) 0.4 mg Q24H PO ; Start 08/06/17 at 13:00 Insulin Glargine (Lantus) 29 unit QHS SC ; Start 08/06/17 at 21:00 BREANA MORALES Aug 06, 2017 12:33
[2017-08-06 13:36] VITALS: BP 146/82; RESP 18
[2017-08-06] MEDS: TAMSULOSIN (SR) 0.4 MG CAP PO SCH (13:39)
--- NOTE | 2017-08-06 15:34 | RADRPT ---
PROCEDURE: Ultrasound of the bilateral lower extremity venous system. CLINICAL INDICATION: Bilateral leg pain and swelling, deep venous thrombosis TECHNIQUE: Goodrich scale with and without compression, color doppler, spectral doppler of the venous system of the bilateral lower extremities was performed. Venous augmentation maneuvers were utilized . COMPARISON: US EXTREMITY 08/01/2017 FINDINGS: Right: Common femoral vein: Patent. Femoral vein: Patent. Popliteal vein: Patent. Calf veins: Patent. Subcutaneous edema is present distally. Mildly prominent right inguinal lymph node. Left: Common femoral vein: Patent. Femoral vein: Patent. Popliteal vein: Patent. Calf veins: Patent. No soft tissue abnormalities are identified. IMPRESSION: No evidence of a deep vein thrombosis within the bilateral lower extremities. RPTAT: AADD .Gio Estrella MD, Date Time Electronically viewed and signed by .Gio Estrella MD, on 08/06/2017 15:34 .B/
[2017-08-06] MEDS: MAGNESIUM HYDROXIDE 30ML CUP PO PRN (17:15)
--- NOTE | 2017-08-06 17:25 | CONS ---
Date/Time of Note Date/Time of Note DATE: 08/06/17 TIME: 17:24 Assessment/Plan Assessment/Plan Additional Assessment/Plan 42 yo male with 1) Chest Pain 2) Acute Diastolic Heart failure 3) Uncontrolled HTN, Chronic, ? Compliance 4) History of DM 5) Likely MARIA DEL CARMEN on CKD stage unspecified 6) Anemia, Normocytic, likely chronic diease 7) Hx of DVT, No evidence on this admission 8) Urinary Retention Cont current Rx and plan Diuretic Rx IV monitor electrolytes, UO and renal fuction Cr stable. On flomax Will cont to closely follow along with you. Consultation Date/Type/Reason Admit Date/Time Aug 02, 2017 at 01:07 Initial Consult Date 08/02/17 Type of Consultation: renal Referring Provider: CLARITA VERMA 24 HR Interval Summary Constitutional: requiring O2 Exam/Review of Systems Vital Signs Vitals Vital Signs Date Time Temp Pulse Resp B/P Pulse Ox O2 Delivery O2 Flow Rate FiO2 08/06/17 13:36 97.9 71 18 146/82 97 08/05/17 08:05 Nasal Cannula 2.0 Intake and Output 08/05/17 08/05/17 08/06/17 15:00 23:00 07:00 Intake Total 1300 ml 700 ml Output Total 2200 ml 800 ml Balance -900 ml -100 ml Exam Constitutional: frail, No distress Eyes: EOMI Neck: No jvd Respiratory: normal air movement, No diminished breath sounds, No labored breathing Cardiovascular: regular rate and rhythm Gastrointestinal: non-tender, soft Extremities: edema, pitting pedal edema Neurological: nl mental status, No lethargic Skin: No diaphoresis Results Result Diagram: 08/06/17 0505 08/06/17 0505 Results 24 hrs Laboratory Tests Test 08/05/17 17:57 08/05/17 20:44 08/05/17 21:49 08/06/17 02:17 Bedside Glucose 162 199 215 256 H Test 08/06/17 05:05 08/06/17 08:08 08/06/17 12:18 08/06/17 17:17 White Blood Count 7.4 Red Blood Count 2.96 L Hemoglobin 8.2 L Hematocrit 24.7 L Mean Corpuscular Volume 83.4 Mean Corpuscular Hemoglobin 27.7 L Mean Corpuscular Hemoglobin Concent 33.2 Red Cell Distribution Width 13.2 Platelet Count 211 Mean Platelet Volume 11.7 H Neutrophils % 66.3 Lymphocytes % 22.5 Monocytes % 9.2 Eosinophils % 0.9 Basophils % 0.3 Nucleated Red Blood Cells % 0.0 Neutrophils # 4.9 Lymphocytes # 1.7 Monocytes # 0.7 Eosinophils # 0.1 Basophils # 0.0 Nucleated Red Blood Cells # 0.0 Sodium Level 138 Potassium Level 3.5 Chloride Level 105 Carbon Dioxide Level 28 Anion Gap 9 Blood Urea Nitrogen 48 H Creatinine 1.93 H Glucose Level 190 Calcium Level 7.8 L Bedside Glucose 179 82 118 Medications Medications Current Medications Nitroglycerin (Nitroglycerin (Sl Tab) 0.4 Mg) 1 tab Q5M PRN SL ANGINA; Start 08/02/17 at 03:30 Miscellaneous Information 1 ea NOTE XX ; Start 08/02/17 at 04:00 Glucose (Glutose) 15 gm Q15M PRN PO DECREASED GLUCOSE; Start 08/02/17 at 04:00 Glucose (Glutose) 22.5 gm Q15M PRN PO DECREASED GLUCOSE; Start 08/02/17 at 04: 00 Dextrose (D50w Syringe) 25 ml Q15M PRN IV DECREASED GLUCOSE; Start 08/02/17 at 04:00 Dextrose (D50w Syringe) 50 ml Q15M PRN IV DECREASED GLUCOSE; Start 08/02/17 at 04:00 Glucagon (Glucagen) 1 mg Q15M PRN IM DECREASED GLUCOSE; Start 08/02/17 at 04:00 Glucose (Glutose) 15 gm Q15M PRN BUCCAL DECREASED GLUCOSE; Start 08/02/17 at 04 :00 Amlodipine Besylate (Norvasc) 10 mg QHS PO Last administered on 08/05/17 20: 46; Admin Dose 10 MG; Start 08/02/17 at 21:00 Atorvastatin Calcium (Lipitor) 80 mg QHS PO Last administered on 08/05/17 20: 46; Admin Dose 80 MG; Start 08/02/17 at 21:00 Cholecalciferol (Vitamin D) 1,000 unit DAILY PO Last administered on 08:04; Admin Dose 1,000 UNIT; Start 08/02/17 at 09:00 EZETIMIBE (Zetia) 10 mg DAILY PO Last administered on 08/06/17 08:03; Admin Dose 10 MG; Start 08/02/17 at 09:00 Hydralazine HCl (Apresoline) 100 mg Q8 PO Last administered on 08/06/17 13:56 ; Admin Dose 100 MG; Start 08/02/17 at 06:00 Lisinopril (Zestril) 40 mg DAILY PO Last administered on 08/02/17 09:37; Admin Dose 40 MG; Start 08/02/17 at 09:00; Status Future Hold Oxycodone/ Acetaminophen (Percocet (5/ 325)) 1 tab Q6H PO Last administered on 08/06/17 17:13; Admin Dose 1 TAB; Start 08/02/17 at 05:00 Potassium Chloride (Klor-Con 20) 20 meq DAILY PO Last administered on 08:04; Admin Dose 20 MEQ; Start 08/02/17 at 09:00 Guaifenesin/ Dextromethorphan (Robitussin Dm Liquid Cup) 10 ml Q4H PRN PO COUGH Last administered on 08/04/17 06:21; Admin Dose 10 ML; Start 08/02/17 at 08:00 Furosemide (Lasix) 40 mg DAILY IV Last administered on 08/06/17 08:03; Admin Dose 40 MG; Start 08/02/17 at 09:00 Hydroxyzine HCl (Atarax) 25 mg Q6H PRN PO ITCHING Last administered on 08:38; Admin Dose 25 MG; Start 08/02/17 at 09:00 Carvedilol (Coreg) 3.125 mg BID PO Last administered on 08/06/17 08:04; Admin Dose 3.125 MG; Start 08/02/17 at 21:00 Famotidine (Pepcid) 20 mg DAILY PO Last administered on 08/06/17 08:05; Admin Dose 20 MG; Start 08/02/17 at 13:00 Morphine Sulfate (morphine) 4 mg Q4H PRN IV PAIN LEVEL 4-7 Last administered on 08/06/17 02:21; Admin Dose 4 MG; Start 08/03/17 at 00:45 Hydralazine HCl (Apresoline) 10 mg Q4H PRN IV ELEVATED BLOOD PRESSURE Last administered on 08/03/17 01:05; Admin Dose 10 MG; Start 08/03/17 at 01:00 Heparin Sodium (Porcine) (Heparin (5000 Units/0.5 ml)) 5,000 unit BID SC Last administered on 08/06/17 08:13; Admin Dose 5,000 UNIT; Start 08/03/17 at 21:00 Magnesium Hydroxide (Milk Of Mag) 30 ml BID PRN PO CONSTIPATION Last administered on 08/06/17 17:15; Admin Dose 30 ML; Start 08/04/17 at 13:00 Senna (Senokot) 2 tab BID PO Last administered on 08/06/17 08:05; Admin Dose 2 TAB; Start 08/04/17 at 13:00 Bisacodyl (Dulcolax Supp) 10 mg DAILY PRN [place] CONSTIPATION; Start 08/04/17 at 13 :00 Tamsulosin HCl (Flomax) 0.4 mg Q24H PO Last administered on 08/06/17 13:39; Admin Dose 0.4 MG; Start 08/06/17 at 13:00 Insulin Glargine (Lantus) 29 unit QHS SC ; Start 08/06/17 at 21:00 ROSEMARY PRUETT MD Aug 06, 2017 17:25
--- NOTE | 2017-08-06 19:14 | CONS ---
Date/Time of Note Date/Time of Note DATE: 08/06/17 TIME: 19:12 Assessment/Plan Assessment/Plan Chief Complaint/Hosp Course Assessment: Chest pain - ruled out for myocardial infarction, resolved Acute on chronic diastolic heart failure - echocardiogram showed LVEF 55-60% with moderate LVH Accelerated hypertension Acute kidney injury on probable chronic kidney disease Dyslipidemia Diabetes mellitus Upper respiratory infection - status post antibiotics Recommendations: -continue diuresis -continue antihypertensive medications -continue atorvastatin Problems: Consultation Date/Type/Reason Admit Date/Time Aug 02, 2017 at 01:07 Initial Consult Date 08/02/17 Type of Consultation: Cardiology 24 HR Interval Summary Free Text/Dictation Complaining of bilateral lower extremity swelling and pain. Dopplers negative for deep vein thrombosis. Denies chest pain or shortness o fbreaht. Detailed Summary Additional Comments 14 point review of systems without changes. Exam/Review of Systems Vital Signs Vitals Vital Signs Date Time Temp Pulse Resp B/P Pulse Ox O2 Delivery O2 Flow Rate FiO2 08/06/17 13:36 97.9 71 18 146/82 97 08/05/17 08:05 Nasal Cannula 2.0 Intake and Output 08/05/17 08/05/17 08/06/17 15:00 23:00 07:00 Intake Total 1300 ml 700 ml Output Total 2200 ml 800 ml Balance -900 ml -100 ml Exam Constitutional: alert, obese, well developed Psych: nl mood/affect, no complaints Head: atraumatic, normocephalic Eyes: nl conjunctiva, nl lids ENMT: nl external ears & nose, nl nasal mucosa & septum Neck: non-tender, supple Respiratory: diminished breath sounds, No wheezing Cardiovascular: regular rate and rhythm Gastrointestinal: non-tender, soft Musculoskeletal: other (status post left first toe amputation) Extremities: edema, No clubbing, No cyanosis Neurological: nl mental status, nl speech Skin: nl turgor Results Result Diagram: 08/06/17 0505 08/06/17 0505 Results 24 hrs Laboratory Tests Test 08/05/17 20:44 08/05/17 21:49 08/06/17 02:17 08/06/17 05:05 Bedside Glucose 199 215 256 H White Blood Count 7.4 Red Blood Count 2.96 L Hemoglobin 8.2 L Hematocrit 24.7 L Mean Corpuscular Volume 83.4 Mean Corpuscular Hemoglobin 27.7 L Mean Corpuscular Hemoglobin Concent 33.2 Red Cell Distribution Width 13.2 Platelet Count 211 Mean Platelet Volume 11.7 H Neutrophils % 66.3 Lymphocytes % 22.5 Monocytes % 9.2 Eosinophils % 0.9 Basophils % 0.3 Nucleated Red Blood Cells % 0.0 Neutrophils # 4.9 Lymphocytes # 1.7 Monocytes # 0.7 Eosinophils # 0.1 Basophils # 0.0 Nucleated Red Blood Cells # 0.0 Sodium Level 138 Potassium Level 3.5 Chloride Level 105 Carbon Dioxide Level 28 Anion Gap 9 Blood Urea Nitrogen 48 H Creatinine 1.93 H Glucose Level 190 Calcium Level 7.8 L Test 08/06/17 08:08 08/06/17 12:18 08/06/17 17:17 Bedside Glucose 179 82 118 Medications Medications Current Medications Nitroglycerin (Nitroglycerin (Sl Tab) 0.4 Mg) 1 tab Q5M PRN SL ANGINA; Start 08/02/17 at 03:30 Miscellaneous Information 1 ea NOTE XX ; Start 08/02/17 at 04:00 Glucose (Glutose) 15 gm Q15M PRN PO DECREASED GLUCOSE; Start 08/02/17 at 04:00 Glucose (Glutose) 22.5 gm Q15M PRN PO DECREASED GLUCOSE; Start 08/02/17 at 04: 00 Dextrose (D50w Syringe) 25 ml Q15M PRN IV DECREASED GLUCOSE; Start 08/02/17 at 04:00 Dextrose (D50w Syringe) 50 ml Q15M PRN IV DECREASED GLUCOSE; Start 08/02/17 at 04:00 Glucagon (Glucagen) 1 mg Q15M PRN IM DECREASED GLUCOSE; Start 08/02/17 at 04:00 Glucose (Glutose) 15 gm Q15M PRN BUCCAL DECREASED GLUCOSE; Start 08/02/17 at 04 :00 Amlodipine Besylate (Norvasc) 10 mg QHS PO Last administered on 08/05/17 20: 46; Admin Dose 10 MG; Start 08/02/17 at 21:00 Atorvastatin Calcium (Lipitor) 80 mg QHS PO Last administered on 08/05/17 20: 46; Admin Dose 80 MG; Start 08/02/17 at 21:00 Cholecalciferol (Vitamin D) 1,000 unit DAILY PO Last administered on 08:04; Admin Dose 1,000 UNIT; Start 08/02/17 at 09:00 EZETIMIBE (Zetia) 10 mg DAILY PO Last administered on 08/06/17 08:03; Admin Dose 10 MG; Start 08/02/17 at 09:00 Hydralazine HCl (Apresoline) 100 mg Q8 PO Last administered on 08/06/17 13:56 ; Admin Dose 100 MG; Start 08/02/17 at 06:00 Lisinopril (Zestril) 40 mg DAILY PO Last administered on 08/02/17 09:37; Admin Dose 40 MG; Start 08/02/17 at 09:00; Status Future Hold Oxycodone/ Acetaminophen (Percocet (5/ 325)) 1 tab Q6H PO Last administered on 08/06/17 17:13; Admin Dose 1 TAB; Start 08/02/17 at 05:00 Potassium Chloride (Klor-Con 20) 20 meq DAILY PO Last administered on 08:04; Admin Dose 20 MEQ; Start 08/02/17 at 09:00 Guaifenesin/ Dextromethorphan (Robitussin Dm Liquid Cup) 10 ml Q4H PRN PO COUGH Last administered on 08/04/17 06:21; Admin Dose 10 ML; Start 08/02/17 at 08:00 Furosemide (Lasix) 40 mg DAILY IV Last administered on 08/06/17 08:03; Admin Dose 40 MG; Start 08/02/17 at 09:00 Hydroxyzine HCl (Atarax) 25 mg Q6H PRN PO ITCHING Last administered on 08:38; Admin Dose 25 MG; Start 08/02/17 at 09:00 Carvedilol (Coreg) 3.125 mg BID PO Last administered on 08/06/17 08:04; Admin Dose 3.125 MG; Start 08/02/17 at 21:00 Famotidine (Pepcid) 20 mg DAILY PO Last administered on 08/06/17 08:05; Admin Dose 20 MG; Start 08/02/17 at 13:00 Morphine Sulfate (morphine) 4 mg Q4H PRN IV PAIN LEVEL 4-7 Last administered on 08/06/17 19:04; Admin Dose 4 MG; Start 08/03/17 at 00:45 Hydralazine HCl (Apresoline) 10 mg Q4H PRN IV ELEVATED BLOOD PRESSURE Last administered on 08/03/17 01:05; Admin Dose 10 MG; Start 08/03/17 at 01:00 Heparin Sodium (Porcine) (Heparin (5000 Units/0.5 ml)) 5,000 unit BID SC Last administered on 08/06/17 08:13; Admin Dose 5,000 UNIT; Start 08/03/17 at 21:00 Magnesium Hydroxide (Milk Of Mag) 30 ml BID PRN PO CONSTIPATION Last administered on 08/06/17 17:15; Admin Dose 30 ML; Start 08/04/17 at 13:00 Senna (Senokot) 2 tab BID PO Last administered on 08/06/17 08:05; Admin Dose 2 TAB; Start 08/04/17 at 13:00 Bisacodyl (Dulcolax Supp) 10 mg DAILY PRN [place] CONSTIPATION; Start 08/04/17 at 13 :00 Tamsulosin HCl (Flomax) 0.4 mg Q24H PO Last administered on 08/06/17 13:39; Admin Dose 0.4 MG; Start 08/06/17 at 13:00 Insulin Glargine (Lantus) 29 unit QHS SC ; Start 08/06/17 at 21:00 MATT GARRETT MD Aug 06, 2017 19:14
[2017-08-06 19:55] VITALS: BP 146/82; RESP 18
[2017-08-06] MEDS: ATORVASTATIN 80 MG TAB PO SCH (20:58)
[2017-08-06] MEDS: AMLODIPINE 10 MG TAB PO SCH (20:59)
[2017-08-06] MEDS: INSULIN GLARGINE [LANtus] 3 ML PEN SC SCH ×2 (21:03→21:23)
[2017-08-07 02:17] VITALS: BP 127/68; RESP 18
[2017-08-07] MEDS: OXYCODONE/ACETAMINOPHEN (5/325) TAB PO SCH ×4 (05:00→23:00)
[2017-08-07 06:11] LABS: BASOPHILS % 0.3 % (0.0-2.0); EOSINOPHILS # 0.3 10^3/ul (0.0-0.5); EOSINOPHILS % 4.3 % (0.0-7.0); HEMATOCRIT 25.1 % (42.0-52.0); HEMOGLOBIN 8.3 g/dl (14.0-18.0); LYMPHOCYTES # 1.9 10^3/ul (0.8-2.9); LYMPHOCYTES % 32.2 % (15.0-51.0); MEAN CORPUSCULAR HEMOGLOBIN 27.6 pg (29.0-33.0); MEAN CORPUSCULAR HGB CONC 33.1 g/dl (32.0-37.0); MEAN CORPUSCULAR VOLUME 83.4 fl (82.0-101.0); MEAN PLATELET VOLUME 11.6 fl (7.4-10.4); MONOCYTE # 0.6 10^3/ul (0.3-0.9); MONOCYTES % 10.7 % (0.0-11.0); PLATELET COUNT 218 10^3/UL (140-415); RED BLOOD COUNT 3.01 10^6/ul (4.70-6.10); RED CELL DISTRIBUTION WIDTH 13.2 % (11.5-14.5); WHITE BLOOD COUNT 5.8 10^3/ul (4.8-10.8)
[2017-08-07 06:33] LABS: CREATININE 1.89 mg/dl (0.61-1.24); POTASSIUM 3.7 mmol/L (3.5-5.1)
[2017-08-07 07:21] VITALS: BP 150/77; RESP 18
[2017-08-07] MEDS: INSULIN ASPART [NOVOLOG] 3 ML PEN SC SCH ×4 (08:15→21:00)
[2017-08-07] MEDS: CHOLECALCIFEROL 1,000 UNIT TAB PO SCH (08:18)
[2017-08-07] MEDS: SENNA TAB PO SCH ×2 (08:19→21:00)
[2017-08-07] MEDS: FAMOTIDINE 20 MG TAB PO SCH (08:19)
[2017-08-07] MEDS: POTASSIUM CHLORIDE (SR) 20 MEQ TAB PO SCH (08:19)
[2017-08-07] MEDS: FUROSEMIDE 40 MG INJ IV SCH (08:20)
[2017-08-07] MEDS: EZETIMIBE 10 MG TAB PO SCH (08:20)
[2017-08-07] MEDS: HEPARIN 5,000 UNIT/0.5 ML VIAL SC SCH ×2 (08:23→22:03)
[2017-08-07] MEDS: TAMSULOSIN (SR) 0.4 MG CAP PO SCH (12:28)
[2017-08-07 14:12] VITALS: BP 149/82; RESP 18
[2017-08-07] MEDS: morphine 4 MG/ML VIAL IV PRN (15:11)
--- NOTE | 2017-08-07 16:29 | CONS ---
Date/Time of Note Date/Time of Note DATE: 08/07/17 TIME: 16:28 Assessment/Plan Assessment/Plan Chief Complaint/Hosp Course Assessment: Chest pain - ruled out for myocardial infarction, resolved Acute on chronic diastolic heart failure - improved Accelerated hypertension - blood pressures improved Acute kidney injury on probable chronic kidney disease Dyslipidemia Diabetes mellitus Upper respiratory infection - status post antibiotics Recommendations: -continue diuresis -continue antihypertensive medications -continue atorvastatin -echocardiogram showed LVEF 55-60% with moderate LVH Problems: Consultation Date/Type/Reason Admit Date/Time Aug 02, 2017 at 01:07 Initial Consult Date 08/02/17 Type of Consultation: Cardiology 24 HR Interval Summary Free Text/Dictation Shortness of breath improved. Denies chest pain. Still with lower extremity swelling. Detailed Summary Additional Comments 14 point review of systems without changes. Exam/Review of Systems Vital Signs Vitals Vital Signs Date Time Temp Pulse Resp B/P Pulse Ox O2 Delivery O2 Flow Rate FiO2 08/07/17 14:12 98.3 73 18 149/82 94 08/05/17 08:05 Nasal Cannula 2.0 Intake and Output 08/06/17 08/06/17 08/07/17 15:00 23:00 07:00 Intake Total 100 ml 2400 ml 800 ml Output Total 1440 ml 800 ml Balance 100 ml 960 ml 0 ml Exam Constitutional: alert, obese, well developed Psych: nl mood/affect, no complaints Head: atraumatic, normocephalic Eyes: nl conjunctiva, nl lids ENMT: nl external ears & nose, nl nasal mucosa & septum Neck: non-tender, supple Respiratory: diminished breath sounds, No wheezing Cardiovascular: regular rate and rhythm Gastrointestinal: non-tender, soft Musculoskeletal: other (status post left first toe amputation) Extremities: edema, No clubbing, No cyanosis Neurological: nl mental status, nl speech Skin: nl turgor Results Result Diagram: 08/07/17 0516 08/07/17 0516 Results 24 hrs Laboratory Tests Test 08/06/17 17:17 08/06/17 21:01 08/07/17 02:52 08/07/17 05:16 Bedside Glucose 118 135 130 White Blood Count 5.8 # Red Blood Count 3.01 L Hemoglobin 8.3 L Hematocrit 25.1 L Mean Corpuscular Volume 83.4 Mean Corpuscular Hemoglobin 27.6 L Mean Corpuscular Hemoglobin Concent 33.1 Red Cell Distribution Width 13.2 Platelet Count 218 Mean Platelet Volume 11.6 H Neutrophils % 52.0 Lymphocytes % 32.2 Monocytes % 10.7 Eosinophils % 4.3 Basophils % 0.3 Nucleated Red Blood Cells % 0.0 Neutrophils # 3.0 Lymphocytes # 1.9 Monocytes # 0.6 Eosinophils # 0.3 Basophils # 0.0 Nucleated Red Blood Cells # 0.0 Sodium Level 139 Potassium Level 3.7 Chloride Level 104 Carbon Dioxide Level 31 Anion Gap 8 Blood Urea Nitrogen 43 H Creatinine 1.89 H Glucose Level 110 # Calcium Level 8.0 L Test 08/07/17 07:54 08/07/17 12:08 Bedside Glucose 96 126 Medications Medications Current Medications Nitroglycerin (Nitroglycerin (Sl Tab) 0.4 Mg) 1 tab Q5M PRN SL ANGINA; Start 08/02/17 at 03:30 Miscellaneous Information 1 ea NOTE XX ; Start 08/02/17 at 04:00 Glucose (Glutose) 15 gm Q15M PRN PO DECREASED GLUCOSE; Start 08/02/17 at 04:00 Glucose (Glutose) 22.5 gm Q15M PRN PO DECREASED GLUCOSE; Start 08/02/17 at 04: 00 Dextrose (D50w Syringe) 25 ml Q15M PRN IV DECREASED GLUCOSE; Start 08/02/17 at 04:00 Dextrose (D50w Syringe) 50 ml Q15M PRN IV DECREASED GLUCOSE; Start 08/02/17 at 04:00 Glucagon (Glucagen) 1 mg Q15M PRN IM DECREASED GLUCOSE; Start 08/02/17 at 04:00 Glucose (Glutose) 15 gm Q15M PRN BUCCAL DECREASED GLUCOSE; Start 08/02/17 at 04 :00 Amlodipine Besylate (Norvasc) 10 mg QHS PO Last administered on 08/06/17 20: 59; Admin Dose 10 MG; Start 08/02/17 at 21:00 Atorvastatin Calcium (Lipitor) 80 mg QHS PO Last administered on 08/06/17 20: 58; Admin Dose 80 MG; Start 08/02/17 at 21:00 Cholecalciferol (Vitamin D) 1,000 unit DAILY PO Last administered on 08:18; Admin Dose 1,000 UNIT; Start 08/02/17 at 09:00 EZETIMIBE (Zetia) 10 mg DAILY PO Last administered on 08/07/17 08:20; Admin Dose 10 MG; Start 08/02/17 at 09:00 Hydralazine HCl (Apresoline) 100 mg Q8 PO Last administered on 08/07/17 13:30 ; Admin Dose 100 MG; Start 08/02/17 at 06:00 Lisinopril (Zestril) 40 mg DAILY PO Last administered on 08/02/17 09:37; Admin Dose 40 MG; Start 08/02/17 at 09:00; Status Future Hold Oxycodone/ Acetaminophen (Percocet (5/ 325)) 1 tab Q6H PO Last administered on 08/06/17 17:13; Admin Dose 1 TAB; Start 08/02/17 at 05:00 Potassium Chloride (Klor-Con 20) 20 meq DAILY PO Last administered on 08:19; Admin Dose 20 MEQ; Start 08/02/17 at 09:00 Guaifenesin/ Dextromethorphan (Robitussin Dm Liquid Cup) 10 ml Q4H PRN PO COUGH Last administered on 08/04/17 06:21; Admin Dose 10 ML; Start 08/02/17 at 08:00 Furosemide (Lasix) 40 mg DAILY IV Last administered on 08/07/17 08:20; Admin Dose 40 MG; Start 08/02/17 at 09:00 Hydroxyzine HCl (Atarax) 25 mg Q6H PRN PO ITCHING Last administered on 08:38; Admin Dose 25 MG; Start 08/02/17 at 09:00 Carvedilol (Coreg) 3.125 mg BID PO Last administered on 08/07/17 08:20; Admin Dose 3.125 MG; Start 08/02/17 at 21:00 Famotidine (Pepcid) 20 mg DAILY PO Last administered on 08/07/17 08:19; Admin Dose 20 MG; Start 08/02/17 at 13:00 Morphine Sulfate (morphine) 4 mg Q4H PRN IV PAIN LEVEL 4-7 Last administered on 08/07/17 15:11; Admin Dose 4 MG; Start 08/03/17 at 00:45 Hydralazine HCl (Apresoline) 10 mg Q4H PRN IV ELEVATED BLOOD PRESSURE Last administered on 08/03/17 01:05; Admin Dose 10 MG; Start 08/03/17 at 01:00 Heparin Sodium (Porcine) (Heparin (5000 Units/0.5 ml)) 5,000 unit BID SC Last administered on 08/07/17 08:23; Admin Dose 5,000 UNIT; Start 08/03/17 at 21:00 Magnesium Hydroxide (Milk Of Mag) 30 ml BID PRN PO CONSTIPATION Last administered on 08/06/17 17:15; Admin Dose 30 ML; Start 08/04/17 at 13:00 Senna (Senokot) 2 tab BID PO Last administered on 08/07/17 08:19; Admin Dose 2 TAB; Start 08/04/17 at 13:00 Bisacodyl (Dulcolax Supp) 10 mg DAILY PRN [place] CONSTIPATION; Start 08/04/17 at 13 :00 Tamsulosin HCl (Flomax) 0.4 mg Q24H PO Last administered on 08/07/17 12:28; Admin Dose 0.4 MG; Start 08/06/17 at 13:00 Insulin Glargine (Lantus) 29 unit QHS SC Last administered on 08/06/17 21:23 ; Admin Dose 20 UNIT; Start 08/06/17 at 21:00 MATT GARRETT MD Aug 07, 2017 16:29
--- NOTE | 2017-08-07 18:01 | PN ---
Date/Time of Note Date/Time of Note DATE: 08/07/17 TIME: 18:00 Assessment/Plan VTE Prophylaxis VTE Prophylaxis Intervention: heparin Lines/Catheters IV [facility] ([facility] Saline Lock Urinary Cath still in place: No Assessment/Plan Chief Complaint/Hosp Course 1. Atypical chest pain. -ACS ruled out. -2D echocardiogram showing ejection fraction 55-60%. -Cardiology following. 2. Acute on chronic kidney disease. -Avoid nephrotoxic medications. -Nephrology following. 3. Diabetes mellitus. -Continue sliding scale insulin along with basal insulin. Patient refusing pre-meal insulin. -Hemoglobin A1c 8.3. 4. Essential hypertension. -Continue antihypertensives. 5. Anemia. -Normocytic and hypochromic. -Etiology unclear. Monitor H&H closely. -Obtain iron panel. 6. Dyslipidemia. -Continue statins. 7. Acute on chronic diastolic heart failure. -Continue careful diuresis. 8. Substance abuse. Cessation advised. 9. BPH. - Continue Flomax. 10. Chronic right foot drop. -Continue PT. 11. Fluids, electrolytes, and nutrition. -Carbohydrate controlled, electrolytes. 12. DVT prophylaxis. -SQ heparin. 13. Plan. -Continue careful diuresis while watching the patient's renal function. -Await further recommendations from consultants. Case discussed with Dr. Lee. Problems: Subjective 24 Hr Interval Summary Free Text/Dictation Noticed to have some congested cough. Exam/Review of Systems Vital Signs Vitals Vital Signs Date Time Temp Pulse Resp B/P Pulse Ox O2 Delivery O2 Flow Rate FiO2 08/07/17 14:12 98.3 73 18 149/82 94 08/05/17 08:05 Nasal Cannula 2.0 Intake and Output 08/06/17 08/06/17 08/07/17 14:59 22:59 06:59 Intake Total 100 ml 2400 ml 800 ml Output Total 1440 ml 800 ml Balance 100 ml 960 ml 0 ml Exam General: Obese 42 year-old male lying in bed in no apparent distress. HEENT: Normocephalic, atraumatic. Eyes: Anicteric sclerae, conjunctivae clear. ENT: Nasal septum midline, oral mucosa moist. Neck supple, no JVD noticed. Respiratory: Bilaterally diminished breath sounds. No use of accessory muscles of respiration. No adventitious breath sounds. Cardiovascular: S1, S2 heard. No murmurs or gallops. Abdomen: Soft, nontender, and nondistended. Bowel sounds positive in all 4 quadrants. Genitourinary: Deferred. Extremities: No cyanosis, no clubbing. B/L LE 2+ edema. Peripheral pulses palpable. S/P left first toe amputation. Neurologic: Cranial nerves II through XII grossly intact. The patient is awake, alert, and oriented. Skin: Normal skin turgor. No skin rashes. Results Result Diagram: 08/07/17 0516 08/07/17 0516 Results 24 hrs Laboratory Tests Test 08/06/17 21:01 08/07/17 02:52 08/07/17 05:16 08/07/17 07:54 Bedside Glucose 135 130 96 White Blood Count 5.8 # Red Blood Count 3.01 L Hemoglobin 8.3 L Hematocrit 25.1 L Mean Corpuscular Volume 83.4 Mean Corpuscular Hemoglobin 27.6 L Mean Corpuscular Hemoglobin Concent 33.1 Red Cell Distribution Width 13.2 Platelet Count 218 Mean Platelet Volume 11.6 H Neutrophils % 52.0 Lymphocytes % 32.2 Monocytes % 10.7 Eosinophils % 4.3 Basophils % 0.3 Nucleated Red Blood Cells % 0.0 Neutrophils # 3.0 Lymphocytes # 1.9 Monocytes # 0.6 Eosinophils # 0.3 Basophils # 0.0 Nucleated Red Blood Cells # 0.0 Sodium Level 139 Potassium Level 3.7 Chloride Level 104 Carbon Dioxide Level 31 Anion Gap 8 Blood Urea Nitrogen 43 H Creatinine 1.89 H Glucose Level 110 # Calcium Level 8.0 L Test 08/07/17 12:08 08/07/17 17:18 Bedside Glucose 126 138 Medications Medications Current Medications Nitroglycerin (Nitroglycerin (Sl Tab) 0.4 Mg) 1 tab Q5M PRN SL ANGINA; Start 08/02/17 at 03:30 Miscellaneous Information 1 ea NOTE XX ; Start 08/02/17 at 04:00 Glucose (Glutose) 15 gm Q15M PRN PO DECREASED GLUCOSE; Start 08/02/17 at 04:00 Glucose (Glutose) 22.5 gm Q15M PRN PO DECREASED GLUCOSE; Start 08/02/17 at 04: 00 Dextrose (D50w Syringe) 25 ml Q15M PRN IV DECREASED GLUCOSE; Start 08/02/17 at 04:00 Dextrose (D50w Syringe) 50 ml Q15M PRN IV DECREASED GLUCOSE; Start 08/02/17 at 04:00 Glucagon (Glucagen) 1 mg Q15M PRN IM DECREASED GLUCOSE; Start 08/02/17 at 04:00 Glucose (Glutose) 15 gm Q15M PRN BUCCAL DECREASED GLUCOSE; Start 08/02/17 at 04 :00 Amlodipine Besylate (Norvasc) 10 mg QHS PO Last administered on 08/06/17 20: 59; Admin Dose 10 MG; Start 08/02/17 at 21:00 Atorvastatin Calcium (Lipitor) 80 mg QHS PO Last administered on 08/06/17 20: 58; Admin Dose 80 MG; Start 08/02/17 at 21:00 Cholecalciferol (Vitamin D) 1,000 unit DAILY PO Last administered on 08:18; Admin Dose 1,000 UNIT; Start 08/02/17 at 09:00 EZETIMIBE (Zetia) 10 mg DAILY PO Last administered on 08/07/17 08:20; Admin Dose 10 MG; Start 08/02/17 at 09:00 Hydralazine HCl (Apresoline) 100 mg Q8 PO Last administered on 08/07/17 13:30 ; Admin Dose 100 MG; Start 08/02/17 at 06:00 Lisinopril (Zestril) 40 mg DAILY PO Last administered on 08/02/17 09:37; Admin Dose 40 MG; Start 08/02/17 at 09:00; Status Future Hold Oxycodone/ Acetaminophen (Percocet (5/ 325)) 1 tab Q6H PO Last administered on 08/06/17 17:13; Admin Dose 1 TAB; Start 08/02/17 at 05:00 Potassium Chloride (Klor-Con 20) 20 meq DAILY PO Last administered on 08:19; Admin Dose 20 MEQ; Start 08/02/17 at 09:00 Guaifenesin/ Dextromethorphan (Robitussin Dm Liquid Cup) 10 ml Q4H PRN PO COUGH Last administered on 08/04/17 06:21; Admin Dose 10 ML; Start 08/02/17 at 08:00 Furosemide (Lasix) 40 mg DAILY IV Last administered on 08/07/17 08:20; Admin Dose 40 MG; Start 08/02/17 at 09:00 Hydroxyzine HCl (Atarax) 25 mg Q6H PRN PO ITCHING Last administered on 08:38; Admin Dose 25 MG; Start 08/02/17 at 09:00 Carvedilol (Coreg) 3.125 mg BID PO Last administered on 08/07/17 08:20; Admin Dose 3.125 MG; Start 08/02/17 at 21:00 Famotidine (Pepcid) 20 mg DAILY PO Last administered on 08/07/17 08:19; Admin Dose 20 MG; Start 08/02/17 at 13:00 Morphine Sulfate (morphine) 4 mg Q4H PRN IV PAIN LEVEL 4-7 Last administered on 08/07/17 15:11; Admin Dose 4 MG; Start 08/03/17 at 00:45 Hydralazine HCl (Apresoline) 10 mg Q4H PRN IV ELEVATED BLOOD PRESSURE Last administered on 08/03/17 01:05; Admin Dose 10 MG; Start 08/03/17 at 01:00 Heparin Sodium (Porcine) (Heparin (5000 Units/0.5 ml)) 5,000 unit BID SC Last administered on 08/07/17 08:23; Admin Dose 5,000 UNIT; Start 08/03/17 at 21:00 Magnesium Hydroxide (Milk Of Mag) 30 ml BID PRN PO CONSTIPATION Last administered on 08/06/17 17:15; Admin Dose 30 ML; Start 08/04/17 at 13:00 Senna (Senokot) 2 tab BID PO Last administered on 08/07/17 08:19; Admin Dose 2 TAB; Start 08/04/17 at 13:00 Bisacodyl (Dulcolax Supp) 10 mg DAILY PRN [place] CONSTIPATION; Start 08/04/17 at 13 :00 Tamsulosin HCl (Flomax) 0.4 mg Q24H PO Last administered on 08/07/17 12:28; Admin Dose 0.4 MG; Start 08/06/17 at 13:00 Insulin Glargine (Lantus) 29 unit QHS SC Last administered on 08/06/17 21:23 ; Admin Dose 20 UNIT; Start 08/06/17 at 21:00 GEORGI CORBETT NP Aug 07, 2017 18:01
[2017-08-07 20:09] VITALS: BP 154/79; RESP 18
--- NOTE | 2017-08-07 20:41 | CONS ---
Date/Time of Note Date/Time of Note DATE: 08/07/17 TIME: 20:40 Assessment/Plan Assessment/Plan Additional Assessment/Plan 42 yo male with 1) Chest Pain 2) Acute Diastolic Heart failure 3) Uncontrolled HTN, Chronic, ? Compliance 4) History of DM 5) Likely MARIA DEL CARMEN on CKD stage unspecified 6) Anemia, Normocytic, likely chronic diease 7) Hx of DVT, No evidence on this admission 8) Urinary Retention Cr stable and improved Cont current Rx and plan Diuretic Rx IV monitor electrolytes, UO and renal function Will cont to closely follow along with you. Consultation Date/Type/Reason Admit Date/Time Aug 02, 2017 at 01:07 Initial Consult Date 08/02/17 Type of Consultation: Renal 24 HR Interval Summary Free Text/Dictation No new complaints Constitutional: No requiring O2 Exam/Review of Systems Vital Signs Vitals Vital Signs Date Time Temp Pulse Resp B/P Pulse Ox O2 Delivery O2 Flow Rate FiO2 08/07/17 20:09 98.4 79 18 154/79 97 08/05/17 08:05 Nasal Cannula 2.0 Intake and Output 08/06/17 08/06/17 08/07/17 15:00 23:00 07:00 Intake Total 100 ml 2400 ml 800 ml Output Total 1440 ml 800 ml Balance 100 ml 960 ml 0 ml Exam Constitutional: No distress ENMT: mucosa pink and moist Neck: No jvd Respiratory: clear to auscultation Cardiovascular: edema, regular rate and rhythm Gastrointestinal: soft, No rebound or guarding Extremities: pitting pedal edema Neurological: STRIPPER BLACK AND WHITE II-XII intact, No lethargic Skin: No diaphoresis Results Result Diagram: 08/07/17 0516 08/07/17 0516 Results 24 hrs Laboratory Tests Test 08/06/17 21:01 08/07/17 02:52 08/07/17 05:16 08/07/17 07:54 Bedside Glucose 135 130 96 White Blood Count 5.8 # Red Blood Count 3.01 L Hemoglobin 8.3 L Hematocrit 25.1 L Mean Corpuscular Volume 83.4 Mean Corpuscular Hemoglobin 27.6 L Mean Corpuscular Hemoglobin Concent 33.1 Red Cell Distribution Width 13.2 Platelet Count 218 Mean Platelet Volume 11.6 H Neutrophils % 52.0 Lymphocytes % 32.2 Monocytes % 10.7 Eosinophils % 4.3 Basophils % 0.3 Nucleated Red Blood Cells % 0.0 Neutrophils # 3.0 Lymphocytes # 1.9 Monocytes # 0.6 Eosinophils # 0.3 Basophils # 0.0 Nucleated Red Blood Cells # 0.0 Sodium Level 139 Potassium Level 3.7 Chloride Level 104 Carbon Dioxide Level 31 Anion Gap 8 Blood Urea Nitrogen 43 H Creatinine 1.89 H Glucose Level 110 # Calcium Level 8.0 L Test 08/07/17 12:08 08/07/17 17:18 Bedside Glucose 126 138 Medications Medications Current Medications Nitroglycerin (Nitroglycerin (Sl Tab) 0.4 Mg) 1 tab Q5M PRN SL ANGINA; Start 08/02/17 at 03:30 Miscellaneous Information 1 ea NOTE XX ; Start 08/02/17 at 04:00 Glucose (Glutose) 15 gm Q15M PRN PO DECREASED GLUCOSE; Start 08/02/17 at 04:00 Glucose (Glutose) 22.5 gm Q15M PRN PO DECREASED GLUCOSE; Start 08/02/17 at 04: 00 Dextrose (D50w Syringe) 25 ml Q15M PRN IV DECREASED GLUCOSE; Start 08/02/17 at 04:00 Dextrose (D50w Syringe) 50 ml Q15M PRN IV DECREASED GLUCOSE; Start 08/02/17 at 04:00 Glucagon (Glucagen) 1 mg Q15M PRN IM DECREASED GLUCOSE; Start 08/02/17 at 04:00 Glucose (Glutose) 15 gm Q15M PRN BUCCAL DECREASED GLUCOSE; Start 08/02/17 at 04 :00 Amlodipine Besylate (Norvasc) 10 mg QHS PO Last administered on 08/06/17 20: 59; Admin Dose 10 MG; Start 08/02/17 at 21:00 Atorvastatin Calcium (Lipitor) 80 mg QHS PO Last administered on 08/06/17 20: 58; Admin Dose 80 MG; Start 08/02/17 at 21:00 Cholecalciferol (Vitamin D) 1,000 unit DAILY PO Last administered on 08:18; Admin Dose 1,000 UNIT; Start 08/02/17 at 09:00 EZETIMIBE (Zetia) 10 mg DAILY PO Last administered on 08/07/17 08:20; Admin Dose 10 MG; Start 08/02/17 at 09:00 Hydralazine HCl (Apresoline) 100 mg Q8 PO Last administered on 08/07/17 13:30 ; Admin Dose 100 MG; Start 08/02/17 at 06:00 Lisinopril (Zestril) 40 mg DAILY PO Last administered on 08/02/17 09:37; Admin Dose 40 MG; Start 08/02/17 at 09:00; Status Future Hold Oxycodone/ Acetaminophen (Percocet (5/ 325)) 1 tab Q6H PO Last administered on 08/06/17 17:13; Admin Dose 1 TAB; Start 08/02/17 at 05:00 Potassium Chloride (Klor-Con 20) 20 meq DAILY PO Last administered on 08:19; Admin Dose 20 MEQ; Start 08/02/17 at 09:00 Guaifenesin/ Dextromethorphan (Robitussin Dm Liquid Cup) 10 ml Q4H PRN PO COUGH Last administered on 08/04/17 06:21; Admin Dose 10 ML; Start 08/02/17 at 08:00 Furosemide (Lasix) 40 mg DAILY IV Last administered on 08/07/17 08:20; Admin Dose 40 MG; Start 08/02/17 at 09:00 Hydroxyzine HCl (Atarax) 25 mg Q6H PRN PO ITCHING Last administered on 08:38; Admin Dose 25 MG; Start 08/02/17 at 09:00 Carvedilol (Coreg) 3.125 mg BID PO Last administered on 08/07/17 08:20; Admin Dose 3.125 MG; Start 08/02/17 at 21:00 Famotidine (Pepcid) 20 mg DAILY PO Last administered on 08/07/17 08:19; Admin Dose 20 MG; Start 08/02/17 at 13:00 Morphine Sulfate (morphine) 4 mg Q4H PRN IV PAIN LEVEL 4-7 Last administered on 08/07/17 15:11; Admin Dose 4 MG; Start 08/03/17 at 00:45 Hydralazine HCl (Apresoline) 10 mg Q4H PRN IV ELEVATED BLOOD PRESSURE Last administered on 08/03/17 01:05; Admin Dose 10 MG; Start 08/03/17 at 01:00 Heparin Sodium (Porcine) (Heparin (5000 Units/0.5 ml)) 5,000 unit BID SC Last administered on 08/07/17 08:23; Admin Dose 5,000 UNIT; Start 08/03/17 at 21:00 Magnesium Hydroxide (Milk Of Mag) 30 ml BID PRN PO CONSTIPATION Last administered on 08/06/17 17:15; Admin Dose 30 ML; Start 08/04/17 at 13:00 Senna (Senokot) 2 tab BID PO Last administered on 08/07/17 08:19; Admin Dose 2 TAB; Start 08/04/17 at 13:00 Bisacodyl (Dulcolax Supp) 10 mg DAILY PRN [place] CONSTIPATION; Start 08/04/17 at 13 :00 Tamsulosin HCl (Flomax) 0.4 mg Q24H PO Last administered on 08/07/17 12:28; Admin Dose 0.4 MG; Start 08/06/17 at 13:00 Insulin Glargine (Lantus) 29 unit QHS SC Last administered on 08/06/17 21:23 ; Admin Dose 20 UNIT; Start 08/06/17 at 21:00 ROSEMARY PRUETT MD Aug 07, 2017 20:41
[2017-08-07] MEDS: ATORVASTATIN 80 MG TAB PO SCH (21:55)
[2017-08-07] MEDS: AMLODIPINE 10 MG TAB PO SCH (21:57)
[2017-08-07] MEDS: INSULIN GLARGINE [LANtus] 3 ML PEN SC SCH (22:11)
[2017-08-08 02:29] VITALS: BP 148/74; RESP 18
[2017-08-08] MEDS: OXYCODONE/ACETAMINOPHEN (5/325) TAB PO SCH ×4 (05:00→23:00)
[2017-08-08 06:12] LABS: BASOPHILS % 0.4 % (0.0-2.0); EOSINOPHILS # 0.2 10^3/ul (0.0-0.5); EOSINOPHILS % 4.3 % (0.0-7.0); HEMATOCRIT 25.2 % (42.0-52.0); HEMOGLOBIN 8.5 g/dl (14.0-18.0); LYMPHOCYTES # 1.5 10^3/ul (0.8-2.9); LYMPHOCYTES % 28.7 % (15.0-51.0); MEAN CORPUSCULAR HEMOGLOBIN 27.7 pg (29.0-33.0); MEAN CORPUSCULAR HGB CONC 33.7 g/dl (32.0-37.0); MEAN CORPUSCULAR VOLUME 82.1 fl (82.0-101.0); MEAN PLATELET VOLUME 11.2 fl (7.4-10.4); MONOCYTE # 0.6 10^3/ul (0.3-0.9); MONOCYTES % 10.6 % (0.0-11.0); NEUTROPHIL # 2.9 10^3/ul (1.6-7.5); NEUTROPHILS % 55.1 % (39.0-77.0); PLATELET COUNT 204 10^3/UL (140-415); RED BLOOD COUNT 3.07 10^6/ul (4.70-6.10); RED CELL DISTRIBUTION WIDTH 13.2 % (11.5-14.5); WHITE BLOOD COUNT 5.3 10^3/ul (4.8-10.8)
[2017-08-08 06:37] LABS: CREATININE 1.81 mg/dl (0.61-1.24); MAGNESIUM 2.4 mg/dl (1.7-2.5); PHOSPHORUS 4.5 mg/dl (2.5-4.9); POTASSIUM 3.8 mmol/L (3.5-5.1)
[2017-08-08 06:41] LABS: IRON 41 ug/dl (35-150)
[2017-08-08 06:50] LABS: TOTAL IRON BINDING CAPACITY 237 ug/dl (241-421)
[2017-08-08 07:29] VITALS: BP 165/88; RESP 20
[2017-08-08] MEDS: INSULIN ASPART [NOVOLOG] 3 ML PEN SC SCH ×4 (08:00→21:00)
[2017-08-08] MEDS: EZETIMIBE 10 MG TAB PO SCH (08:11)
[2017-08-08] MEDS: CHOLECALCIFEROL 1,000 UNIT TAB PO SCH (08:11)
[2017-08-08] MEDS: FAMOTIDINE 20 MG TAB PO SCH (08:12)
[2017-08-08] MEDS: POTASSIUM CHLORIDE (SR) 20 MEQ TAB PO SCH (08:12)
[2017-08-08] MEDS: FUROSEMIDE 40 MG INJ IV SCH (08:13)
[2017-08-08] MEDS: HEPARIN 5,000 UNIT/0.5 ML VIAL SC SCH ×2 (08:21→21:20)
[2017-08-08] MEDS: SENNA TAB PO SCH ×2 (08:23→21:00)
[2017-08-08] MEDS: morphine 4 MG/ML VIAL IV PRN ×2 (10:08→21:30)
[2017-08-08 10:27] LABS: ADD UMIC YES; UR ASCORBIC ACID NEGATIVE (NEGATIVE); UR BILIRUBIN (Dip) NEGATIVE (NEGATIVE); UR BLOOD (Dip) NEGATIVE (NEGATIVE); UR CLARITY CLEAR (CLEAR); UR COLOR STRAW (YELLOW); UR GLUCOSE (Dip) 1+ mg/dL (NEGATIVE); UR KETONES (Dip) NEGATIVE (NEGATIVE); UR LEUKOCYTE ESTERASE (Dip) NEGATIVE Leu/ul (NEGATIVE); UR NITRITE (Dip) NEGATIVE (NEGATIVE); UR RBC 4 /HPF (0-5); UR SPECIFIC GRAVITY (Dip) 1.008 (1.003-1.030); UR TOTAL PROTEIN (Dip) 2+ mg/dl (NEGATIVE); UR UROBILINOGEN (Dip) NEGATIVE (NEGATIVE)
[2017-08-08] MEDS: TAMSULOSIN (SR) 0.4 MG CAP PO SCH (13:12)
[2017-08-08 14:24] VITALS: BP 157/85; RESP 20
--- NOTE | 2017-08-08 15:06 | PN ---
Date/Time of Note Date/Time of Note DATE: 08/08/17 TIME: 15:02 Assessment/Plan VTE Prophylaxis VTE Prophylaxis Intervention: heparin Lines/Catheters IV Catheter Type (from [facility]): Saline [facility] Urinary Cath still in place: No Assessment/Plan Chief Complaint/Hosp Course 1. Atypical chest pain. -ACS ruled out. -2D echocardiogram showing ejection fraction 55-60%. -Cardiology following. 2. Acute on chronic kidney disease. -Avoid nephrotoxic medications. -Nephrology following. 3. Diabetes mellitus. -Continue sliding scale insulin along with basal insulin. Patient refusing pre-meal insulin. Try low pre-meal meglitinides. -Hemoglobin A1c 8.3. 4. Essential hypertension. -Continue antihypertensives. 5. Anemia. -Normocytic and hypochromic. -Etiology unclear. Monitor H&H closely. -Obtain iron panel. 6. Dyslipidemia. -Continue statins. 7. Acute on chronic diastolic heart failure. -Continue careful diuresis. 8. Substance abuse. Cessation advised. 9. BPH. - Continue Flomax. 10. Chronic right foot drop. -Continue physical therapy. 11. Fluids, electrolytes, and nutrition. -Carbohydrate controlled, electrolytes. 12. DVT prophylaxis. -SQ heparin. 13. Plan. -Continue careful diuresis while watching the patient's renal function. -Await further recommendations from consultants. Case discussed with Dr. Lee. Problems: Subjective 24 Hr Interval Summary Free Text/Dictation Denies any chest pain or dyspnea. Exam/Review of Systems Vital Signs Vitals Vital Signs Date Time Temp Pulse Resp B/P Pulse Ox O2 Delivery O2 Flow Rate FiO2 08/08/17 14:24 98.4 74 20 157/85 99 08/05/17 08:05 Nasal Cannula 2.0 Intake and Output 08/07/17 08/07/17 08/08/17 15:00 23:00 07:00 Intake Total 840 ml 500 ml Output Total 950 ml 1600 ml Balance -110 ml -1100 ml Exam General: Obese 42 year-old male lying in bed in no apparent distress. HEENT: Normocephalic, atraumatic. Eyes: Anicteric sclerae, conjunctivae clear. ENT: Nasal septum midline, oral mucosa moist. Neck supple, no JVD noticed. Respiratory: Bilaterally diminished breath sounds. No use of accessory muscles of respiration. No adventitious breath sounds. Cardiovascular: S1, S2 heard. No murmurs or gallops. Abdomen: Soft, nontender, and nondistended. Bowel sounds positive in all 4 quadrants. Genitourinary: Deferred. Extremities: No cyanosis, no clubbing. B/L LE 2+ edema. Peripheral pulses palpable. S/P left first toe amputation. Neurologic: Cranial nerves II through XII grossly intact. The patient is awake, alert, and oriented. Skin: Normal skin turgor. No skin rashes. Results Result Diagram: 08/08/17 0540 08/08/17 0540 Results 24 hrs Laboratory Tests Test 08/07/17 17:18 08/07/17 21:41 08/08/17 02:22 08/08/17 05:40 Bedside Glucose 138 267 H 162 White Blood Count 5.3 Red Blood Count 3.07 L Hemoglobin 8.5 L Hematocrit 25.2 L Mean Corpuscular Volume 82.1 Mean Corpuscular Hemoglobin 27.7 L Mean Corpuscular Hemoglobin Concent 33.7 Red Cell Distribution Width 13.2 Platelet Count 204 Mean Platelet Volume 11.2 H Neutrophils % 55.1 Lymphocytes % 28.7 Monocytes % 10.6 Eosinophils % 4.3 Basophils % 0.4 Nucleated Red Blood Cells % 0.0 Neutrophils # 2.9 Lymphocytes # 1.5 Monocytes # 0.6 Eosinophils # 0.2 Basophils # 0.0 Nucleated Red Blood Cells # 0.0 Sodium Level 140 Potassium Level 3.8 Chloride Level 106 Carbon Dioxide Level 30 Anion Gap 8 Blood Urea Nitrogen 36 H Creatinine 1.81 H Glucose Level 117 Hemoglobin A1c 8.4 H Calcium Level 8.0 L Phosphorus Level 4.5 Magnesium Level 2.4 Iron Level 41 Total Iron Binding Capacity 237 L Percent Iron Saturation 17 L Ferritin 124.0 Triglycerides Level 192 H Cholesterol Level 94 L LDL Cholesterol, Calculated 33 HDL Cholesterol 23 L Cholesterol/HDL Ratio 4.0 Test 08/08/17 07:52 08/08/17 10:00 08/08/17 12:14 Bedside Glucose 82 135 Urine Color STRAW Urine Clarity CLEAR Urine pH 5.0 Urine Specific Jackson 1.008 Urine Ketones NEGATIVE Urine Nitrite NEGATIVE Urine Bilirubin NEGATIVE Urine Urobilinogen NEGATIVE Urine Leukocyte Esterase NEGATIVE Urine Microscopic RBC 4 Urine Microscopic WBC 1 Urine Hemoglobin NEGATIVE Urine Glucose 1+ H Urine Total Protein 2+ H Medications Medications Current Medications Nitroglycerin (Nitroglycerin (Sl Tab) 0.4 Mg) 1 tab Q5M PRN SL ANGINA; Start 08/02/17 at 03:30 Miscellaneous Information 1 ea NOTE XX ; Start 08/02/17 at 04:00 Glucose (Glutose) 15 gm Q15M PRN PO DECREASED GLUCOSE; Start 08/02/17 at 04:00 Glucose (Glutose) 22.5 gm Q15M PRN PO DECREASED GLUCOSE; Start 08/02/17 at 04: 00 Dextrose (D50w Syringe) 25 ml Q15M PRN IV DECREASED GLUCOSE; Start 08/02/17 at 04:00 Dextrose (D50w Syringe) 50 ml Q15M PRN IV DECREASED GLUCOSE; Start 08/02/17 at 04:00 Glucagon (Glucagen) 1 mg Q15M PRN IM DECREASED GLUCOSE; Start 08/02/17 at 04:00 Glucose (Glutose) 15 gm Q15M PRN BUCCAL DECREASED GLUCOSE; Start 08/02/17 at 04 :00 Amlodipine Besylate (Norvasc) 10 mg QHS PO Last administered on 08/07/17 21: 57; Admin Dose 10 MG; Start 08/02/17 at 21:00 Atorvastatin Calcium (Lipitor) 80 mg QHS PO Last administered on 08/07/17 21: 55; Admin Dose 80 MG; Start 08/02/17 at 21:00 Cholecalciferol (Vitamin D) 1,000 unit DAILY PO Last administered on 08:11; Admin Dose 1,000 UNIT; Start 08/02/17 at 09:00 EZETIMIBE (Zetia) 10 mg DAILY PO Last administered on 08/08/17 08:11; Admin Dose 10 MG; Start 08/02/17 at 09:00 Hydralazine HCl (Apresoline) 100 mg Q8 PO Last administered on 08/08/17 13:14 ; Admin Dose 100 MG; Start 08/02/17 at 06:00 Lisinopril (Zestril) 40 mg DAILY PO Last administered on 08/02/17 09:37; Admin Dose 40 MG; Start 08/02/17 at 09:00; Status Future Hold Oxycodone/ Acetaminophen (Percocet (5/ 325)) 1 tab Q6H PO Last administered on 08/08/17 11:52; Admin Dose 1 TAB; Start 08/02/17 at 05:00 Potassium Chloride (Klor-Con 20) 20 meq DAILY PO Last administered on 08:12; Admin Dose 20 MEQ; Start 08/02/17 at 09:00 Guaifenesin/ Dextromethorphan (Robitussin Dm Liquid Cup) 10 ml Q4H PRN PO COUGH Last administered on 08/04/17 06:21; Admin Dose 10 ML; Start 08/02/17 at 08:00 Furosemide (Lasix) 40 mg DAILY IV Last administered on 08/08/17 08:13; Admin Dose 40 MG; Start 08/02/17 at 09:00 Hydroxyzine HCl (Atarax) 25 mg Q6H PRN PO ITCHING Last administered on 08:38; Admin Dose 25 MG; Start 08/02/17 at 09:00 Carvedilol (Coreg) 3.125 mg BID PO Last administered on 08/08/17 08:12; Admin Dose 3.125 MG; Start 08/02/17 at 21:00 Famotidine (Pepcid) 20 mg DAILY PO Last administered on 08/08/17 08:12; Admin Dose 20 MG; Start 08/02/17 at 13:00 Morphine Sulfate (morphine) 4 mg Q4H PRN IV PAIN LEVEL 4-7 Last administered on 08/08/17 10:08; Admin Dose 4 MG; Start 08/03/17 at 00:45 Hydralazine HCl (Apresoline) 10 mg Q4H PRN IV ELEVATED BLOOD PRESSURE Last administered on 08/03/17 01:05; Admin Dose 10 MG; Start 08/03/17 at 01:00 Heparin Sodium (Porcine) (Heparin (5000 Units/0.5 ml)) 5,000 unit BID SC Last administered on 08/08/17 08:21; Admin Dose 5,000 UNIT; Start 08/03/17 at 21:00 Magnesium Hydroxide (Milk Of Mag) 30 ml BID PRN PO CONSTIPATION Last administered on 08/06/17 17:15; Admin Dose 30 ML; Start 08/04/17 at 13:00 Senna (Senokot) 2 tab BID PO Last administered on 08/07/17 08:19; Admin Dose 2 TAB; Start 08/04/17 at 13:00 Bisacodyl (Dulcolax Supp) 10 mg DAILY PRN [place] CONSTIPATION; Start 08/04/17 at 13 :00 Tamsulosin HCl (Flomax) 0.4 mg Q24H PO Last administered on 08/08/17 13:12; Admin Dose 0.4 MG; Start 08/06/17 at 13:00 Insulin Glargine (Lantus) 29 unit QHS SC Last administered on 08/07/17 22:11 ; Admin Dose 24 UNIT; Start 08/06/17 at 21:00 Simethicone (Mylicon) 80 mg TID PRN PO DISTENSION/GAS/BLOATING Last administered on 08/08/17 14:31; Admin Dose 80 MG; Start 08/07/17 at 23:30 GEORGI CORBETT NP Aug 08, 2017 15:06
--- NOTE | 2017-08-08 17:21 | CONS ---
Date/Time of Note Date/Time of Note DATE: 08/08/17 TIME: 17:21 Assessment/Plan Assessment/Plan Additional Assessment/Plan 42 yo male with 1) Chest Pain 2) Acute Diastolic Heart failure 3) Uncontrolled HTN, Chronic, ? Compliance 4) History of DM 5) Likely MARIA DEL CARMEN on CKD stage unspecified 6) Anemia, Normocytic, likely chronic diease 7) Hx of DVT, No evidence on this admission 8) Urinary Retention Cr stable and improved Cont current Rx and plan Diuretic Rx IV monitor electrolytes, UO and renal function Will cont to closely follow along with you. Consultation Date/Type/Reason Admit Date/Time Aug 02, 2017 at 01:07 Initial Consult Date 08/02/17 Type of Consultation: Renal 24 HR Interval Summary Constitutional: No requiring O2 Exam/Review of Systems Vital Signs Vitals Vital Signs Date Time Temp Pulse Resp B/P Pulse Ox O2 Delivery O2 Flow Rate FiO2 08/08/17 14:24 98.4 74 20 157/85 99 08/05/17 08:05 Nasal Cannula 2.0 Intake and Output 08/07/17 08/07/17 08/08/17 15:00 23:00 07:00 Intake Total 840 ml 500 ml Output Total 950 ml 1600 ml Balance -110 ml -1100 ml Results Result Diagram: 08/08/17 0540 08/08/17 0540 Results 24 hrs Laboratory Tests Test 08/07/17 21:41 08/08/17 02:22 08/08/17 05:40 08/08/17 07:52 Bedside Glucose 267 H 162 82 White Blood Count 5.3 Red Blood Count 3.07 L Hemoglobin 8.5 L Hematocrit 25.2 L Mean Corpuscular Volume 82.1 Mean Corpuscular Hemoglobin 27.7 L Mean Corpuscular Hemoglobin Concent 33.7 Red Cell Distribution Width 13.2 Platelet Count 204 Mean Platelet Volume 11.2 H Neutrophils % 55.1 Lymphocytes % 28.7 Monocytes % 10.6 Eosinophils % 4.3 Basophils % 0.4 Nucleated Red Blood Cells % 0.0 Neutrophils # 2.9 Lymphocytes # 1.5 Monocytes # 0.6 Eosinophils # 0.2 Basophils # 0.0 Nucleated Red Blood Cells # 0.0 Sodium Level 140 Potassium Level 3.8 Chloride Level 106 Carbon Dioxide Level 30 Anion Gap 8 Blood Urea Nitrogen 36 H Creatinine 1.81 H Glucose Level 117 Hemoglobin A1c 8.4 H Calcium Level 8.0 L Phosphorus Level 4.5 Magnesium Level 2.4 Iron Level 41 Total Iron Binding Capacity 237 L Percent Iron Saturation 17 L Ferritin 124.0 Triglycerides Level 192 H Cholesterol Level 94 L LDL Cholesterol, Calculated 33 HDL Cholesterol 23 L Cholesterol/HDL Ratio 4.0 Test 08/08/17 10:00 08/08/17 12:14 08/08/17 17:18 Urine Color STRAW Urine Clarity CLEAR Urine pH 5.0 Urine Specific [place] 1.008 Urine Ketones NEGATIVE Urine Nitrite NEGATIVE Urine Bilirubin NEGATIVE Urine Urobilinogen NEGATIVE Urine Leukocyte Esterase NEGATIVE Urine Microscopic RBC 4 Urine Microscopic WBC 1 Urine Hemoglobin NEGATIVE Urine Glucose 1+ H Urine Total Protein 2+ H Bedside Glucose 135 185 Medications Medications Current Medications Nitroglycerin (Nitroglycerin (Sl Tab) 0.4 Mg) 1 tab Q5M PRN SL ANGINA; Start 08/02/17 at 03:30 Miscellaneous Information 1 ea NOTE XX ; Start 08/02/17 at 04:00 Glucose (Glutose) 15 gm Q15M PRN PO DECREASED GLUCOSE; Start 08/02/17 at 04:00 Glucose (Glutose) 22.5 gm Q15M PRN PO DECREASED GLUCOSE; Start 08/02/17 at 04: 00 Dextrose (D50w Syringe) 25 ml Q15M PRN IV DECREASED GLUCOSE; Start 08/02/17 at 04:00 Dextrose (D50w Syringe) 50 ml Q15M PRN IV DECREASED GLUCOSE; Start 08/02/17 at 04:00 Glucagon (Glucagen) 1 mg Q15M PRN IM DECREASED GLUCOSE; Start 08/02/17 at 04:00 Glucose (Glutose) 15 gm Q15M PRN BUCCAL DECREASED GLUCOSE; Start 08/02/17 at 04 :00 Amlodipine Besylate (Norvasc) 10 mg QHS PO Last administered on 08/07/17 21: 57; Admin Dose 10 MG; Start 08/02/17 at 21:00 Atorvastatin Calcium (Lipitor) 80 mg QHS PO Last administered on 08/07/17 21: 55; Admin Dose 80 MG; Start 08/02/17 at 21:00 Cholecalciferol (Vitamin D) 1,000 unit DAILY PO Last administered on 08:11; Admin Dose 1,000 UNIT; Start 08/02/17 at 09:00 EZETIMIBE (Zetia) 10 mg DAILY PO Last administered on 08/08/17 08:11; Admin Dose 10 MG; Start 08/02/17 at 09:00 Hydralazine HCl (Apresoline) 100 mg Q8 PO Last administered on 08/08/17 13:14 ; Admin Dose 100 MG; Start 08/02/17 at 06:00 Lisinopril (Zestril) 40 mg DAILY PO Last administered on 08/02/17 09:37; Admin Dose 40 MG; Start 08/02/17 at 09:00; Status Future Hold Oxycodone/ Acetaminophen (Percocet (5/ 325)) 1 tab Q6H PO Last administered on 08/08/17 17:08; Admin Dose 1 TAB; Start 08/02/17 at 05:00 Potassium Chloride (Klor-Con 20) 20 meq DAILY PO Last administered on 08:12; Admin Dose 20 MEQ; Start 08/02/17 at 09:00 Guaifenesin/ Dextromethorphan (Robitussin Dm Liquid Cup) 10 ml Q4H PRN PO COUGH Last administered on 08/04/17 06:21; Admin Dose 10 ML; Start 08/02/17 at 08:00 Furosemide (Lasix) 40 mg DAILY IV Last administered on 08/08/17 08:13; Admin Dose 40 MG; Start 08/02/17 at 09:00 Hydroxyzine HCl (Atarax) 25 mg Q6H PRN PO ITCHING Last administered on 08:38; Admin Dose 25 MG; Start 08/02/17 at 09:00 Carvedilol (Coreg) 3.125 mg BID PO Last administered on 08/08/17 08:12; Admin Dose 3.125 MG; Start 08/02/17 at 21:00 Famotidine (Pepcid) 20 mg DAILY PO Last administered on 08/08/17 08:12; Admin Dose 20 MG; Start 08/02/17 at 13:00 Morphine Sulfate (morphine) 4 mg Q4H PRN IV PAIN LEVEL 4-7 Last administered on 08/08/17 10:08; Admin Dose 4 MG; Start 08/03/17 at 00:45 Hydralazine HCl (Apresoline) 10 mg Q4H PRN IV ELEVATED BLOOD PRESSURE Last administered on 08/03/17 01:05; Admin Dose 10 MG; Start 08/03/17 at 01:00 Heparin Sodium (Porcine) (Heparin (5000 Units/0.5 ml)) 5,000 unit BID SC Last administered on 08/08/17 08:21; Admin Dose 5,000 UNIT; Start 08/03/17 at 21:00 Magnesium Hydroxide (Milk Of Mag) 30 ml BID PRN PO CONSTIPATION Last administered on 08/06/17 17:15; Admin Dose 30 ML; Start 08/04/17 at 13:00 Senna (Senokot) 2 tab BID PO Last administered on 08/07/17 08:19; Admin Dose 2 TAB; Start 08/04/17 at 13:00 Bisacodyl (Dulcolax Supp) 10 mg DAILY PRN [place] CONSTIPATION; Start 08/04/17 at 13 :00 Tamsulosin HCl (Flomax) 0.4 mg Q24H PO Last administered on 08/08/17 13:12; Admin Dose 0.4 MG; Start 08/06/17 at 13:00 Simethicone (Mylicon) 80 mg TID PRN PO DISTENSION/GAS/BLOATING Last administered on 08/08/17 14:31; Admin Dose 80 MG; Start 08/07/17 at 23:30 Insulin Glargine (Lantus) 20 unit QHS SC ; Start 08/08/17 at 21:00 Repaglinide (Prandin) 1 mg TID PO ; Start 08/09/17 at 07:00 ROSEMARY PRUETT MD Aug 08, 2017 17:21
[2017-08-08 20:00] VITALS: BP 149/74; RESP 17
[2017-08-08] MEDS: ATORVASTATIN 80 MG TAB PO SCH (21:16)
[2017-08-08] MEDS: AMLODIPINE 10 MG TAB PO SCH (21:22)
[2017-08-08] MEDS: INSULIN GLARGINE [LANtus] 3 ML PEN SC SCH (21:26)
[2017-08-09 02:10] VITALS: BP 152/80; RESP 18
[2017-08-09] MEDS: OXYCODONE/ACETAMINOPHEN (5/325) TAB PO SCH ×4 (05:05→23:00)
[2017-08-09 06:16] LABS: BASOPHILS % 0.2 % (0.0-2.0); EOSINOPHILS # 0.2 10^3/ul (0.0-0.5); EOSINOPHILS % 4.4 % (0.0-7.0); HEMATOCRIT 24.8 % (42.0-52.0); HEMOGLOBIN 8.3 g/dl (14.0-18.0); LYMPHOCYTES # 1.4 10^3/ul (0.8-2.9); MEAN CORPUSCULAR HEMOGLOBIN 27.8 pg (29.0-33.0); MEAN CORPUSCULAR HGB CONC 33.5 g/dl (32.0-37.0); MEAN CORPUSCULAR VOLUME 82.9 fl (82.0-101.0); MEAN PLATELET VOLUME 11.1 fl (7.4-10.4); MONOCYTE # 0.5 10^3/ul (0.3-0.9); NEUTROPHIL # 2.6 10^3/ul (1.6-7.5); PLATELET COUNT 198 10^3/UL (140-415); RED BLOOD COUNT 2.99 10^6/ul (4.70-6.10); WHITE BLOOD COUNT 4.7 10^3/ul (4.8-10.8)
[2017-08-09 06:46] LABS: CALCIUM 7.9 mg/dl (8.4-10.2); CREATININE 1.62 mg/dl (0.61-1.24); POTASSIUM 3.8 mmol/L (3.5-5.1)
[2017-08-09 07:00] VITALS: BP 154/77; RESP 18
[2017-08-09] MEDS: INSULIN ASPART [NOVOLOG] 3 ML PEN SC SCH ×4 (08:15→21:00)
[2017-08-09] MEDS: REPAGLINIDE 1 MG TAB PO SCH ×3 (08:22→21:11)
[2017-08-09] MEDS: SENNA TAB PO SCH ×2 (09:00→21:11)
[2017-08-09] MEDS: FUROSEMIDE 40 MG INJ IV SCH (09:41)
[2017-08-09] MEDS: HEPARIN 5,000 UNIT/0.5 ML VIAL SC SCH ×2 (09:41→21:12)
[2017-08-09] MEDS: POTASSIUM CHLORIDE (SR) 20 MEQ TAB PO SCH (09:41)
[2017-08-09] MEDS: EZETIMIBE 10 MG TAB PO SCH (09:42)
[2017-08-09] MEDS: CHOLECALCIFEROL 1,000 UNIT TAB PO SCH (09:42)
[2017-08-09] MEDS: FAMOTIDINE 20 MG TAB PO SCH (09:42)
[2017-08-09] MEDS: TAMSULOSIN (SR) 0.4 MG CAP PO SCH (12:22)
--- NOTE | 2017-08-09 12:22 | PN ---
Date/Time of Note Date/Time of Note DATE: 08/09/17 TIME: 12:20 Assessment/Plan VTE Prophylaxis VTE Prophylaxis Intervention: heparin Lines/Catheters IV [facility] Urinary Cath still in place: No Assessment/Plan Chief Complaint/Hosp Course 1. Atypical chest pain. -ACS ruled out. -2D echocardiogram showing ejection fraction 55-60%. -Cardiology following. 2. Acute on chronic kidney disease. -Avoid nephrotoxic medications. -Nephrology following. 3. Diabetes mellitus. -Continue sliding scale insulin along with basal insulin. Patient refusing pre-meal insulin. On pre-meal meglitinides. -Hemoglobin A1c 8.3. 4. Essential hypertension. -Continue antihypertensives. 5. Anemia. -Normocytic and hypochromic. -Etiology unclear. Monitor H&H closely. -Most probably anemia of chronic disease. 6. Dyslipidemia. -Continue statins. 7. Acute on chronic diastolic heart failure. -Continue careful diuresis. 8. Substance abuse. Cessation advised. 9. BPH. - Continue Flomax. 10. Chronic right foot drop. -Continue physical therapy. 11. Fluids, electrolytes, and nutrition. -Carbohydrate controlled, electrolytes. 12. DVT prophylaxis. -SQ heparin. 13. Plan. -Continue careful diuresis while watching the patient's renal function. -Plan is to discharge the patient home with right ankle foot orthosis and home PT. Case discussed with Dr. Lee. Problems: Subjective 24 Hr Interval Summary Free Text/Dictation Denies any chest pain or dyspnea. Exam/Review of Systems Vital Signs Vitals Vital Signs Date Time Temp Pulse Resp B/P Pulse Ox O2 Delivery O2 Flow Rate FiO2 08/09/17 07:00 98.3 77 18 154/77 97 08/05/17 08:05 Nasal Cannula 2.0 Intake and Output 08/08/17 08/08/17 08/09/17 15:00 23:00 07:00 Intake Total 1620 ml 500 ml Output Total 2350 ml 700 ml Balance -730 ml -200 ml Exam General: Obese 42 year-old male lying in bed in no apparent distress. HEENT: Normocephalic, atraumatic. Eyes: Anicteric sclerae, conjunctivae clear. ENT: Nasal septum midline, oral mucosa moist. Neck supple, no JVD noticed. Respiratory: Bilaterally diminished breath sounds. No use of accessory muscles of respiration. No adventitious breath sounds. Cardiovascular: S1, S2 heard. No murmurs or gallops. Abdomen: Soft, nontender, and nondistended. Bowel sounds positive in all 4 quadrants. Genitourinary: Deferred. Extremities: No cyanosis, no clubbing. B/L LE 2+ edema. Peripheral pulses palpable. S/P left first toe amputation. Neurologic: Cranial nerves II through XII grossly intact. The patient is awake, alert, and oriented. Skin: Normal skin turgor. No skin rashes. Results Result Diagram: 08/09/17 0547 08/09/17 0547 Results 24 hrs Laboratory Tests Test 08/08/17 17:18 08/08/17 21:13 08/09/17 05:47 08/09/17 08:16 Bedside Glucose 185 180 112 White Blood Count 4.7 L Red Blood Count 2.99 L Hemoglobin 8.3 L Hematocrit 24.8 L Mean Corpuscular Volume 82.9 Mean Corpuscular Hemoglobin 27.8 L Mean Corpuscular Hemoglobin Concent 33.5 Red Cell Distribution Width 13.0 Platelet Count 198 Mean Platelet Volume 11.1 H Neutrophils % 54.0 Lymphocytes % 30.0 Monocytes % 11.0 Eosinophils % 4.4 Basophils % 0.2 Nucleated Red Blood Cells % 0.0 Neutrophils # 2.6 Lymphocytes # 1.4 Monocytes # 0.5 Eosinophils # 0.2 Basophils # 0.0 Nucleated Red Blood Cells # 0.0 Sodium Level 140 Potassium Level 3.8 Chloride Level 107 Carbon Dioxide Level 29 Anion Gap 8 Blood Urea Nitrogen 32 H Creatinine 1.62 H Glucose Level 98 Calcium Level 7.9 L Magnesium Level 2.3 Medications Medications Current Medications Nitroglycerin (Nitroglycerin (Sl Tab) 0.4 Mg) 1 tab Q5M PRN SL ANGINA; Start 08/02/17 at 03:30 Miscellaneous Information 1 ea NOTE XX ; Start 08/02/17 at 04:00 Glucose (Glutose) 15 gm Q15M PRN PO DECREASED GLUCOSE; Start 08/02/17 at 04:00 Glucose (Glutose) 22.5 gm Q15M PRN PO DECREASED GLUCOSE; Start 08/02/17 at 04: 00 Dextrose (D50w Syringe) 25 ml Q15M PRN IV DECREASED GLUCOSE; Start 08/02/17 at 04:00 Dextrose (D50w Syringe) 50 ml Q15M PRN IV DECREASED GLUCOSE; Start 08/02/17 at 04:00 Glucagon (Glucagen) 1 mg Q15M PRN IM DECREASED GLUCOSE; Start 08/02/17 at 04:00 Glucose (Glutose) 15 gm Q15M PRN BUCCAL DECREASED GLUCOSE; Start 08/02/17 at 04 :00 Amlodipine Besylate (Norvasc) 10 mg QHS PO Last administered on 08/08/17 21: 22; Admin Dose 10 MG; Start 08/02/17 at 21:00 Atorvastatin Calcium (Lipitor) 80 mg QHS PO Last administered on 08/08/17 21: 16; Admin Dose 80 MG; Start 08/02/17 at 21:00 Cholecalciferol (Vitamin D) 1,000 unit DAILY PO Last administered on 09:42; Admin Dose 1,000 UNIT; Start 08/02/17 at 09:00 EZETIMIBE (Zetia) 10 mg DAILY PO Last administered on 08/09/17 09:42; Admin Dose 10 MG; Start 08/02/17 at 09:00 Hydralazine HCl (Apresoline) 100 mg Q8 PO Last administered on 08/09/17 05:05 ; Admin Dose 100 MG; Start 08/02/17 at 06:00 Lisinopril (Zestril) 40 mg DAILY PO Last administered on 08/02/17 09:37; Admin Dose 40 MG; Start 08/02/17 at 09:00; Status Future Hold Oxycodone/ Acetaminophen (Percocet (5/ 325)) 1 tab Q6H PO Last administered on 08/09/17 05:05; Admin Dose 1 TAB; Start 08/02/17 at 05:00 Potassium Chloride (Klor-Con 20) 20 meq DAILY PO Last administered on 09:41; Admin Dose 20 MEQ; Start 08/02/17 at 09:00 Guaifenesin/ Dextromethorphan (Robitussin Dm Liquid Cup) 10 ml Q4H PRN PO COUGH Last administered on 08/04/17 06:21; Admin Dose 10 ML; Start 08/02/17 at 08:00 Furosemide (Lasix) 40 mg DAILY IV Last administered on 08/09/17 09:41; Admin Dose 40 MG; Start 08/02/17 at 09:00 Hydroxyzine HCl (Atarax) 25 mg Q6H PRN PO ITCHING Last administered on 08:38; Admin Dose 25 MG; Start 08/02/17 at 09:00 Carvedilol (Coreg) 3.125 mg BID PO Last administered on 08/09/17 09:42; Admin Dose 3.125 MG; Start 08/02/17 at 21:00 Famotidine (Pepcid) 20 mg DAILY PO Last administered on 08/09/17 09:42; Admin Dose 20 MG; Start 08/02/17 at 13:00 Morphine Sulfate (morphine) 4 mg Q4H PRN IV PAIN LEVEL 4-7 Last administered on 08/08/17 21:30; Admin Dose 4 MG; Start 08/03/17 at 00:45 Hydralazine HCl (Apresoline) 10 mg Q4H PRN IV ELEVATED BLOOD PRESSURE Last administered on 08/03/17 01:05; Admin Dose 10 MG; Start 08/03/17 at 01:00 Heparin Sodium (Porcine) (Heparin (5000 Units/0.5 ml)) 5,000 unit BID SC Last administered on 08/09/17 09:41; Admin Dose 5,000 UNIT; Start 08/03/17 at 21:00 Magnesium Hydroxide (Milk Of Mag) 30 ml BID PRN PO CONSTIPATION Last administered on 08/06/17 17:15; Admin Dose 30 ML; Start 08/04/17 at 13:00 Senna (Senokot) 2 tab BID PO Last administered on 08/07/17 08:19; Admin Dose 2 TAB; Start 08/04/17 at 13:00 Bisacodyl (Dulcolax Supp) 10 mg DAILY PRN [place] CONSTIPATION; Start 08/04/17 at 13 :00 Tamsulosin HCl (Flomax) 0.4 mg Q24H PO Last administered on 08/08/17 13:12; Admin Dose 0.4 MG; Start 08/06/17 at 13:00 Simethicone (Mylicon) 80 mg TID PRN PO DISTENSION/GAS/BLOATING Last administered on 08/08/17 14:31; Admin Dose 80 MG; Start 08/07/17 at 23:30 Insulin Glargine (Lantus) 20 unit QHS SC Last administered on 08/08/17 21:26 ; Admin Dose 20 UNIT; Start 08/08/17 at 21:00 Repaglinide (Prandin) 1 mg TID PO Last administered on 08/09/17 08:22; Admin Dose 1 MG; Start 08/09/17 at 07:00 GEORGI CORBETT NP Aug 09, 2017 12:22
[2017-08-09 14:00] VITALS: BP 161/85; RESP 18
--- NOTE | 2017-08-09 14:39 | CONS ---
Date/Time of Note Date/Time of Note DATE: 08/09/17 TIME: 14:38 Assessment/Plan Assessment/Plan Additional Assessment/Plan 42 yo male with 1) Chest Pain 2) Acute Diastolic Heart failure 3) Uncontrolled HTN, Chronic, ? Compliance 4) History of DM 5) Likely MARIA DEL CARMEN on CKD stage unspecified 6) Anemia, Normocytic, likely chronic diease 7) Hx of DVT, No evidence on this admission 8) Urinary Retention Cr stable and improved Cont current Rx and plan Diuretic Rx IV to PO BID monitor electrolytes, UO and renal function DC planning as per Hospitalist Will follow-up with patient in my [place] office in 1 week Please have patient call to confirm appt [phone] Consultation Date/Type/Reason Admit Date/Time Aug 02, 2017 at 01:07 Initial Consult Date 08/02/17 Type of Consultation: Renal 24 HR Interval Summary Constitutional: No requiring O2 Exam/Review of Systems Vital Signs Vitals Vital Signs Date Time Temp Pulse Resp B/P Pulse Ox O2 Delivery O2 Flow Rate FiO2 08/09/17 07:00 98.3 77 18 154/77 97 08/05/17 08:05 Nasal Cannula 2.0 Intake and Output 08/08/17 08/08/17 08/09/17 15:00 23:00 07:00 Intake Total 1620 ml 500 ml Output Total 2350 ml 700 ml Balance -730 ml -200 ml Exam Constitutional: No distress ENMT: mucosa pink and moist Neck: No jvd Respiratory: clear to auscultation, No diminished breath sounds Cardiovascular: edema, regular rate and rhythm Gastrointestinal: non-tender, soft Extremities: pitting pedal edema Neurological: nl mental status, No lethargic Results Result Diagram: 08/09/17 0547 08/09/17 0547 Results 24 hrs Laboratory Tests Test 08/08/17 17:18 08/08/17 21:13 08/09/17 05:47 08/09/17 08:16 Bedside Glucose 185 180 112 White Blood Count 4.7 L Red Blood Count 2.99 L Hemoglobin 8.3 L Hematocrit 24.8 L Mean Corpuscular Volume 82.9 Mean Corpuscular Hemoglobin 27.8 L Mean Corpuscular Hemoglobin Concent 33.5 Red Cell Distribution Width 13.0 Platelet Count 198 Mean Platelet Volume 11.1 H Neutrophils % 54.0 Lymphocytes % 30.0 Monocytes % 11.0 Eosinophils % 4.4 Basophils % 0.2 Nucleated Red Blood Cells % 0.0 Neutrophils # 2.6 Lymphocytes # 1.4 Monocytes # 0.5 Eosinophils # 0.2 Basophils # 0.0 Nucleated Red Blood Cells # 0.0 Sodium Level 140 Potassium Level 3.8 Chloride Level 107 Carbon Dioxide Level 29 Anion Gap 8 Blood Urea Nitrogen 32 H Creatinine 1.62 H Glucose Level 98 Calcium Level 7.9 L Magnesium Level 2.3 Test 08/09/17 12:24 Bedside Glucose 105 Medications Medications Current Medications Nitroglycerin (Nitroglycerin (Sl Tab) 0.4 Mg) 1 tab Q5M PRN SL ANGINA; Start 08/02/17 at 03:30 Miscellaneous Information 1 ea NOTE XX ; Start 08/02/17 at 04:00 Glucose (Glutose) 15 gm Q15M PRN PO DECREASED GLUCOSE; Start 08/02/17 at 04:00 Glucose (Glutose) 22.5 gm Q15M PRN PO DECREASED GLUCOSE; Start 08/02/17 at 04: 00 Dextrose (D50w Syringe) 25 ml Q15M PRN IV DECREASED GLUCOSE; Start 08/02/17 at 04:00 Dextrose (D50w Syringe) 50 ml Q15M PRN IV DECREASED GLUCOSE; Start 08/02/17 at 04:00 Glucagon (Glucagen) 1 mg Q15M PRN IM DECREASED GLUCOSE; Start 08/02/17 at 04:00 Glucose (Glutose) 15 gm Q15M PRN BUCCAL DECREASED GLUCOSE; Start 08/02/17 at 04 :00 Amlodipine Besylate (Norvasc) 10 mg QHS PO Last administered on 08/08/17 21: 22; Admin Dose 10 MG; Start 08/02/17 at 21:00 Atorvastatin Calcium (Lipitor) 80 mg QHS PO Last administered on 08/08/17 21: 16; Admin Dose 80 MG; Start 08/02/17 at 21:00 Cholecalciferol (Vitamin D) 1,000 unit DAILY PO Last administered on 09:42; Admin Dose 1,000 UNIT; Start 08/02/17 at 09:00 EZETIMIBE (Zetia) 10 mg DAILY PO Last administered on 08/09/17 09:42; Admin Dose 10 MG; Start 08/02/17 at 09:00 Hydralazine HCl (Apresoline) 100 mg Q8 PO Last administered on 08/09/17 05:05 ; Admin Dose 100 MG; Start 08/02/17 at 06:00 Lisinopril (Zestril) 40 mg DAILY PO Last administered on 08/02/17 09:37; Admin Dose 40 MG; Start 08/02/17 at 09:00; Status Future Hold Oxycodone/ Acetaminophen (Percocet (5/ 325)) 1 tab Q6H PO Last administered on 08/09/17 12:23; Admin Dose 1 TAB; Start 08/02/17 at 05:00 Potassium Chloride (Klor-Con 20) 20 meq DAILY PO Last administered on 09:41; Admin Dose 20 MEQ; Start 08/02/17 at 09:00 Guaifenesin/ Dextromethorphan (Robitussin Dm Liquid Cup) 10 ml Q4H PRN PO COUGH Last administered on 08/04/17 06:21; Admin Dose 10 ML; Start 08/02/17 at 08:00 Hydroxyzine HCl (Atarax) 25 mg Q6H PRN PO ITCHING Last administered on 08:38; Admin Dose 25 MG; Start 08/02/17 at 09:00 Carvedilol (Coreg) 3.125 mg BID PO Last administered on 08/09/17 09:42; Admin Dose 3.125 MG; Start 08/02/17 at 21:00 Famotidine (Pepcid) 20 mg DAILY PO Last administered on 08/09/17 09:42; Admin Dose 20 MG; Start 08/02/17 at 13:00 Morphine Sulfate (morphine) 4 mg Q4H PRN IV PAIN LEVEL 4-7 Last administered on 08/08/17 21:30; Admin Dose 4 MG; Start 08/03/17 at 00:45 Hydralazine HCl (Apresoline) 10 mg Q4H PRN IV ELEVATED BLOOD PRESSURE Last administered on 08/03/17 01:05; Admin Dose 10 MG; Start 08/03/17 at 01:00 Heparin Sodium (Porcine) (Heparin (5000 Units/0.5 ml)) 5,000 unit BID SC Last administered on 08/09/17 09:41; Admin Dose 5,000 UNIT; Start 08/03/17 at 21:00 Magnesium Hydroxide (Milk Of Mag) 30 ml BID PRN PO CONSTIPATION Last administered on 08/06/17 17:15; Admin Dose 30 ML; Start 08/04/17 at 13:00 Senna (Senokot) 2 tab BID PO Last administered on 08/07/17 08:19; Admin Dose 2 TAB; Start 08/04/17 at 13:00 Bisacodyl (Dulcolax Supp) 10 mg DAILY PRN [place] CONSTIPATION; Start 08/04/17 at 13 :00 Tamsulosin HCl (Flomax) 0.4 mg Q24H PO Last administered on 08/09/17 12:22; Admin Dose 0.4 MG; Start 08/06/17 at 13:00 Simethicone (Mylicon) 80 mg TID PRN PO DISTENSION/GAS/BLOATING Last administered on 08/08/17 14:31; Admin Dose 80 MG; Start 08/07/17 at 23:30 Insulin Glargine (Lantus) 20 unit QHS SC Last administered on 08/08/17 21:26 ; Admin Dose 20 UNIT; Start 08/08/17 at 21:00 Repaglinide (Prandin) 1 mg TID PO Last administered on 08/09/17 12:22; Admin Dose 1 MG; Start 08/09/17 at 07:00 Furosemide (Lasix) 40 mg DAILY PO ; Start 08/10/17 at 09:00 ROSEMARY PRUETT MD Aug 09, 2017 14:39
[2017-08-09 15:39] VITALS: BP 162/88; PULSE 75
[2017-08-09 20:06] VITALS: BP 158/82; RESP 18
[2017-08-09] MEDS: AMLODIPINE 10 MG TAB PO SCH (21:10)
[2017-08-09] MEDS: ATORVASTATIN 80 MG TAB PO SCH (21:11)
[2017-08-09] MEDS: INSULIN GLARGINE [LANtus] 3 ML PEN SC SCH (21:15)
[2017-08-10] MEDS ORDERED: DIPHENHYDRAMINE 25 MG CAP PO ONE (01:30)
[2017-08-10 02:00] VITALS: BP 152/76; PULSE 89; RESP 18
[2017-08-10] MEDS: OXYCODONE/ACETAMINOPHEN (5/325) TAB PO SCH ×4 (05:44→23:00)
[2017-08-10 06:27] LABS: BASOPHILS % 0.4 % (0.0-2.0); EOSINOPHILS # 0.2 10^3/ul (0.0-0.5); EOSINOPHILS % 3.7 % (0.0-7.0); HEMATOCRIT 24.4 % (42.0-52.0); HEMOGLOBIN 8.1 g/dl (14.0-18.0); LYMPHOCYTES # 1.3 10^3/ul (0.8-2.9); LYMPHOCYTES % 24.3 % (15.0-51.0); MEAN CORPUSCULAR HEMOGLOBIN 27.4 pg (29.0-33.0); MEAN CORPUSCULAR HGB CONC 33.2 g/dl (32.0-37.0); MEAN CORPUSCULAR VOLUME 82.4 fl (82.0-101.0); MEAN PLATELET VOLUME 11.1 fl (7.4-10.4); MONOCYTE # 0.6 10^3/ul (0.3-0.9); MONOCYTES % 10.6 % (0.0-11.0); NEUTROPHIL # 3.3 10^3/ul (1.6-7.5); NEUTROPHILS % 60.4 % (39.0-77.0); PLATELET COUNT 185 10^3/UL (140-415); RED BLOOD COUNT 2.96 10^6/ul (4.70-6.10); RED CELL DISTRIBUTION WIDTH 13.2 % (11.5-14.5); WHITE BLOOD COUNT 5.4 10^3/ul (4.8-10.8)
[2017-08-10 07:05] LABS: CREATININE 1.48 mg/dl (0.61-1.24); POTASSIUM 3.7 mmol/L (3.5-5.1)
[2017-08-10 08:00] VITALS: BP 172/89; RESP 18
[2017-08-10] MEDS: INSULIN ASPART [NOVOLOG] 3 ML PEN SC SCH ×4 (08:15→21:00)
[2017-08-10] MEDS: EZETIMIBE 10 MG TAB PO SCH (09:23)
[2017-08-10] MEDS: REPAGLINIDE 1 MG TAB PO SCH ×3 (09:23→21:00)
[2017-08-10] MEDS: SENNA TAB PO SCH ×3 (09:23→21:21)
[2017-08-10] MEDS: FAMOTIDINE 20 MG TAB PO SCH (09:24)
[2017-08-10] MEDS: FUROSEMIDE 40 MG TAB PO SCH (09:24)
[2017-08-10] MEDS: POTASSIUM CHLORIDE (SR) 20 MEQ TAB PO SCH (09:25)
[2017-08-10] MEDS: CHOLECALCIFEROL 1,000 UNIT TAB PO SCH (09:25)
[2017-08-10] MEDS: HEPARIN 5,000 UNIT/0.5 ML VIAL SC SCH ×2 (09:30→21:23)
[2017-08-10 10:33] VITALS: BP 170/86; PULSE 93
[2017-08-10] MEDS: MAGNESIUM HYDROXIDE 30ML CUP PO PRN (10:41)
[2017-08-10] MEDS: hydrALAzine 20 MG INJ IV PRN (10:42)
[2017-08-10 12:05] VITALS: BP 161/82; PULSE 80
[2017-08-10] MEDS: TAMSULOSIN (SR) 0.4 MG CAP PO SCH (12:23)
--- NOTE | 2017-08-10 13:13 | PN ---
Date/Time of Note Date/Time of Note DATE: 08/10/17 TIME: 13:02 Assessment/Plan VTE Prophylaxis VTE Prophylaxis Intervention: heparin Lines/Catheters IV Catheter Type (from Nrs): Saline Lock Urinary Cath still in place: No Assessment/Plan Assessment/Plan 1. Atypical chest pain, no further cardiac work up per cardiology 2. Acute bronchitis, zithromax 3. HTN, not well controlled, increase coreg 4. Acute on chronic kidney disease., improving, follow up with BMP 5. Diabetes mellitus., on insulins 6. Anemia, Normocytic and hypochromic. probably CKD related 7. Dyslipidemia. on statins. 8. Acute on chronic diastolic heart failure, controlled BP, on lasix. 9. Substance abuse. Cessation advised. 10. BPH. Continue Flomax. 11. Chronic right foot drop. Continue physical therapy. 12. DVT prophylaxis. SQ heparin. Subjective 24 Hr Interval Summary Free Text/Dictation cough, had fever and chills on admission, brownish sputum Exam/Review of Systems Vital Signs Vitals Vital Signs Date Time Temp Pulse Resp B/P Pulse Ox O2 Delivery O2 Flow Rate FiO2 08/10/17 12:05 80 161/82 08/10/17 08:00 98.2 18 99 08/10/17 02:00 Room Air Intake and Output 08/09/17 08/09/17 08/10/17 15:00 23:00 07:00 Intake Total 4000 ml 600 ml Output Total 4500 ml 700 ml Balance -500 ml -100 ml Exam Constitutional: alert, oriented, well developed Psych: nl mood/affect, no complaints Head: atraumatic, normocephalic Eyes: EOMI, PERRL, nl conjunctiva, nl lids ENMT: nl external ears & nose, nl lips & teeth, nl nasal mucosa & septum Neck: non-tender, supple Respiratory: clear to auscultation, normal air movement, No congested cough, No crackles/rales, No diminished breath sounds, No intercostal retraction, No labored breathing, No other, No respirations, No tactile fremitus, No wheezing Cardiovascular: nl pulses, regular rate and rhythm, No S3, No S4, No bruits, No diastolic murmur, No edema, No gallop, No irregular rhythm, No jugular venous distention (JVD), No murmurs/extra sounds, No other, No rub, No systolic murmur Gastrointestinal: nl liver, spleen, non-tender, soft, No ascites, No bowel sounds, No distended, No firm, No hepatomegaly, No mass , No other, No rebound or guarding, No splenomegaly, No surgical scars, No tender Musculoskeletal: nl extremities to inspection Extremities: normal pulses, other (right foot drop), No calf tenderness, No clubbing, No cyanosis, No edema, No palpable cord, No pitting pedal edema, No tenderness Neurological: JOURNEY[employer] P[employer] II-XII intact, nl mental status, nl speech, nl strength Skin: nl turgor Lymph: nl lymph nodes Results Result Diagram: 08/10/17 0535 08/10/17 0535 Results 24 hrs Laboratory Tests Test 08/09/17 17:20 08/09/17 21:08 08/10/17 05:35 08/10/17 08:10 Bedside Glucose 115 180 73 White Blood Count 5.4 Red Blood Count 2.96 L Hemoglobin 8.1 L Hematocrit 24.4 L Mean Corpuscular Volume 82.4 Mean Corpuscular Hemoglobin 27.4 L Mean Corpuscular Hemoglobin Concent 33.2 Red Cell Distribution Width 13.2 Platelet Count 185 Mean Platelet Volume 11.1 H Neutrophils % 60.4 Lymphocytes % 24.3 Monocytes % 10.6 Eosinophils % 3.7 Basophils % 0.4 Nucleated Red Blood Cells % 0.0 Neutrophils # 3.3 Lymphocytes # 1.3 Monocytes # 0.6 Eosinophils # 0.2 Basophils # 0.0 Nucleated Red Blood Cells # 0.0 Sodium Level 141 Potassium Level 3.7 Chloride Level 107 Carbon Dioxide Level 30 Anion Gap 8 Blood Urea Nitrogen 30 H Creatinine 1.48 H Glucose Level 64 #L Calcium Level 8.0 L Magnesium Level 2.3 Test 08/10/17 12:22 Bedside Glucose 141 Medications Medications Current Medications Nitroglycerin (Nitroglycerin (Sl Tab) 0.4 Mg) 1 tab Q5M PRN SL ANGINA; Start 08/02/17 at 03:30 Miscellaneous Information 1 ea NOTE XX ; Start 08/02/17 at 04:00 Glucose (Glutose) 15 gm Q15M PRN PO DECREASED GLUCOSE; Start 08/02/17 at 04:00 Glucose (Glutose) 22.5 gm Q15M PRN PO DECREASED GLUCOSE; Start 08/02/17 at 04: 00 Dextrose (D50w Syringe) 25 ml Q15M PRN IV DECREASED GLUCOSE; Start 08/02/17 at 04:00 Dextrose (D50w Syringe) 50 ml Q15M PRN IV DECREASED GLUCOSE; Start 08/02/17 at 04:00 Glucagon (Glucagen) 1 mg Q15M PRN IM DECREASED GLUCOSE; Start 08/02/17 at 04:00 Glucose (Glutose) 15 gm Q15M PRN BUCCAL DECREASED GLUCOSE; Start 08/02/17 at 04 :00 Amlodipine Besylate (Norvasc) 10 mg QHS PO Last administered on 08/09/17 21: 10; Admin Dose 10 MG; Start 08/02/17 at 21:00 Atorvastatin Calcium (Lipitor) 80 mg QHS PO Last administered on 08/09/17 21: 11; Admin Dose 80 MG; Start 08/02/17 at 21:00 Cholecalciferol (Vitamin D) 1,000 unit DAILY PO Last administered on 09:25; Admin Dose 1,000 UNIT; Start 08/02/17 at 09:00 EZETIMIBE (Zetia) 10 mg DAILY PO Last administered on 08/10/17 09:23; Admin Dose 10 MG; Start 08/02/17 at 09:00 Hydralazine HCl (Apresoline) 100 mg Q8 PO Last administered on 08/10/17 05:44 ; Admin Dose 100 MG; Start 08/02/17 at 06:00 Lisinopril (Zestril) 40 mg DAILY PO Last administered on 08/02/17 09:37; Admin Dose 40 MG; Start 08/02/17 at 09:00; Status Future Hold Oxycodone/ Acetaminophen (Percocet (5/ 325)) 1 tab Q6H PO Last administered on 08/10/17 10:41; Admin Dose 1 TAB; Start 08/02/17 at 05:00 Potassium Chloride (Klor-Con 20) 20 meq DAILY PO Last administered on 09:25; Admin Dose 20 MEQ; Start 08/02/17 at 09:00 Guaifenesin/ Dextromethorphan (Robitussin Dm Liquid Cup) 10 ml Q4H PRN PO COUGH Last administered on 08/04/17 06:21; Admin Dose 10 ML; Start 08/02/17 at 08:00 Hydroxyzine HCl (Atarax) 25 mg Q6H PRN PO ITCHING Last administered on 08:38; Admin Dose 25 MG; Start 08/02/17 at 09:00 Carvedilol (Coreg) 3.125 mg BID PO Last administered on 08/10/17 09:25; Admin Dose 3.125 MG; Start 08/02/17 at 21:00 Famotidine (Pepcid) 20 mg DAILY PO Last administered on 08/10/17 09:24; Admin Dose 20 MG; Start 08/02/17 at 13:00 Morphine Sulfate (morphine) 4 mg Q4H PRN IV PAIN LEVEL 4-7 Last administered on 08/08/17 21:30; Admin Dose 4 MG; Start 08/03/17 at 00:45 Hydralazine HCl (Apresoline) 10 mg Q4H PRN IV ELEVATED BLOOD PRESSURE Last administered on 08/10/17 10:42; Admin Dose 10 MG; Start 08/03/17 at 01:00 Heparin Sodium (Porcine) (Heparin (5000 Units/0.5 ml)) 5,000 unit BID SC Last administered on 08/10/17 09:30; Admin Dose 5,000 UNIT; Start 08/03/17 at 21:00 Magnesium Hydroxide (Milk Of Mag) 30 ml BID PRN PO CONSTIPATION Last administered on 08/10/17 10:41; Admin Dose 30 ML; Start 08/04/17 at 13:00 Senna (Senokot) 2 tab BID PO Last administered on 08/10/17 09:23; Admin Dose 2 TAB; Start 08/04/17 at 13:00 Bisacodyl (Dulcolax Supp) 10 mg DAILY PRN [place] CONSTIPATION; Start 08/04/17 at 13 :00 Tamsulosin HCl (Flomax) 0.4 mg Q24H PO Last administered on 08/10/17 12:23; Admin Dose 0.4 MG; Start 08/06/17 at 13:00 Simethicone (Mylicon) 80 mg TID PRN PO DISTENSION/GAS/BLOATING Last administered on 08/09/17 22:18; Admin Dose 80 MG; Start 08/07/17 at 23:30 Insulin Glargine (Lantus) 20 unit QHS SC Last administered on 08/09/17 21:15 ; Admin Dose 20 UNIT; Start 08/08/17 at 21:00 Repaglinide (Prandin) 1 mg TID PO Last administered on 08/10/17 12:23; Admin Dose 1 MG; Start 08/09/17 at 07:00 Furosemide (Lasix) 40 mg DAILY PO Last administered on 08/10/17 09:24; Admin Dose 40 MG; Start 08/10/17 at 09:00 MERARY SAHU MD Aug 10, 2017 13:13
[2017-08-10] MEDS: AZITHROMYCIN 250 MG TAB PO SCH (14:11)
[2017-08-10 14:12] VITALS: BP 143/75; PULSE 76
--- NOTE | 2017-08-10 15:36 | RADRPT ---
PROCEDURE: Chest x-ray CLINICAL INDICATION: Shortness of breath TECHNIQUE: Chest 2 views COMPARISON: 08/02/2017 FINDINGS: The heart is normal in size. The pulmonary vessels are normal in caliber. The lungs are clear. The re are small bilateral pleural effusions. IMPRESSION: Small bilateral pleural effusions RPTAT: HH .David Andrews MD, Date Time Electronically viewed and signed by .David Andrews MD, MD on 08/10/2017 15:36 .W/
--- NOTE | 2017-08-10 20:05 | CONS ---
Date/Time of Note Date/Time of Note DATE: 08/10/17 TIME: 20:04 Assessment/Plan Assessment/Plan Additional Assessment/Plan 42 yo male with 1) Chest Pain 2) Acute Diastolic Heart failure 3) Uncontrolled HTN, Chronic, ? Compliance 4) History of DM 5) Likely MARIA DEL CARMEN on CKD stage unspecified 6) Anemia, Normocytic, likely chronic diease 7) Hx of DVT, No evidence on this admission 8) Urinary Retention Cr stable and improved Cont current Rx and plan Diuretic Rx IV to PO BID monitor electrolytes, UO and renal function DC planning as per Hospitalist Will follow-up with patient in my [place] office in 1 week Please have patient call to confirm appt [phone] Consultation Date/Type/Reason Admit Date/Time Aug 02, 2017 at 01:07 Initial Consult Date 08/02/17 Type of Consultation: Renal Exam/Review of Systems Vital Signs Vitals Vital Signs Date Time Temp Pulse Resp B/P Pulse Ox O2 Delivery O2 Flow Rate FiO2 08/10/17 17:32 97.9 08/10/17 14:12 76 143/75 08/10/17 08:00 18 99 08/10/17 02:00 Room Air Intake and Output 08/09/17 08/09/17 08/10/17 14:59 22:59 06:59 Intake Total 4000 ml 600 ml Output Total 4500 ml 700 ml Balance -500 ml -100 ml Results Result Diagram: 08/10/17 0535 08/10/17 0535 Results 24 hrs Laboratory Tests Test 08/09/17 21:08 08/10/17 05:35 08/10/17 08:10 08/10/17 12:22 Bedside Glucose 180 73 141 White Blood Count 5.4 Red Blood Count 2.96 L Hemoglobin 8.1 L Hematocrit 24.4 L Mean Corpuscular Volume 82.4 Mean Corpuscular Hemoglobin 27.4 L Mean Corpuscular Hemoglobin Concent 33.2 Red Cell Distribution Width 13.2 Platelet Count 185 Mean Platelet Volume 11.1 H Neutrophils % 60.4 Lymphocytes % 24.3 Monocytes % 10.6 Eosinophils % 3.7 Basophils % 0.4 Nucleated Red Blood Cells % 0.0 Neutrophils # 3.3 Lymphocytes # 1.3 Monocytes # 0.6 Eosinophils # 0.2 Basophils # 0.0 Nucleated Red Blood Cells # 0.0 Sodium Level 141 Potassium Level 3.7 Chloride Level 107 Carbon Dioxide Level 30 Anion Gap 8 Blood Urea Nitrogen 30 H Creatinine 1.48 H Glucose Level 64 #L Calcium Level 8.0 L Magnesium Level 2.3 Test 08/10/17 17:30 Bedside Glucose 79 Medications Medications Current Medications Nitroglycerin (Nitroglycerin (Sl Tab) 0.4 Mg) 1 tab Q5M PRN SL ANGINA; Start 08/02/17 at 03:30 Miscellaneous Information 1 ea NOTE XX ; Start 08/02/17 at 04:00 Glucose (Glutose) 15 gm Q15M PRN PO DECREASED GLUCOSE; Start 08/02/17 at 04:00 Glucose (Glutose) 22.5 gm Q15M PRN PO DECREASED GLUCOSE; Start 08/02/17 at 04: 00 Dextrose (D50w Syringe) 25 ml Q15M PRN IV DECREASED GLUCOSE; Start 08/02/17 at 04:00 Dextrose (D50w Syringe) 50 ml Q15M PRN IV DECREASED GLUCOSE; Start 08/02/17 at 04:00 Glucagon (Glucagen) 1 mg Q15M PRN IM DECREASED GLUCOSE; Start 08/02/17 at 04:00 Glucose (Glutose) 15 gm Q15M PRN BUCCAL DECREASED GLUCOSE; Start 08/02/17 at 04 :00 Amlodipine Besylate (Norvasc) 10 mg QHS PO Last administered on 08/09/17 21: 10; Admin Dose 10 MG; Start 08/02/17 at 21:00 Atorvastatin Calcium (Lipitor) 80 mg QHS PO Last administered on 08/09/17 21: 11; Admin Dose 80 MG; Start 08/02/17 at 21:00 Cholecalciferol (Vitamin D) 1,000 unit DAILY PO Last administered on 09:25; Admin Dose 1,000 UNIT; Start 08/02/17 at 09:00 EZETIMIBE (Zetia) 10 mg DAILY PO Last administered on 08/10/17 09:23; Admin Dose 10 MG; Start 08/02/17 at 09:00 Hydralazine HCl (Apresoline) 100 mg Q8 PO Last administered on 08/10/17 14:11 ; Admin Dose 100 MG; Start 08/02/17 at 06:00 Lisinopril (Zestril) 40 mg DAILY PO Last administered on 08/02/17 09:37; Admin Dose 40 MG; Start 08/02/17 at 09:00; Status Future Hold Oxycodone/ Acetaminophen (Percocet (5/ 325)) 1 tab Q6H PO Last administered on 08/10/17 10:41; Admin Dose 1 TAB; Start 08/02/17 at 05:00 Potassium Chloride (Klor-Con 20) 20 meq DAILY PO Last administered on 09:25; Admin Dose 20 MEQ; Start 08/02/17 at 09:00 Guaifenesin/ Dextromethorphan (Robitussin Dm Liquid Cup) 10 ml Q4H PRN PO COUGH Last administered on 08/04/17 06:21; Admin Dose 10 ML; Start 08/02/17 at 08:00 Hydroxyzine HCl (Atarax) 25 mg Q6H PRN PO ITCHING Last administered on 08:38; Admin Dose 25 MG; Start 08/02/17 at 09:00 Famotidine (Pepcid) 20 mg DAILY PO Last administered on 08/10/17 09:24; Admin Dose 20 MG; Start 08/02/17 at 13:00 Morphine Sulfate (morphine) 4 mg Q4H PRN IV PAIN LEVEL 4-7 Last administered on 08/08/17 21:30; Admin Dose 4 MG; Start 08/03/17 at 00:45 Hydralazine HCl (Apresoline) 10 mg Q4H PRN IV ELEVATED BLOOD PRESSURE Last administered on 08/10/17 10:42; Admin Dose 10 MG; Start 08/03/17 at 01:00 Heparin Sodium (Porcine) (Heparin (5000 Units/0.5 ml)) 5,000 unit BID SC Last administered on 08/10/17 09:30; Admin Dose 5,000 UNIT; Start 08/03/17 at 21:00 Magnesium Hydroxide (Milk Of Mag) 30 ml BID PRN PO CONSTIPATION Last administered on 08/10/17 10:41; Admin Dose 30 ML; Start 08/04/17 at 13:00 Senna (Senokot) 2 tab BID PO Last administered on 08/10/17 09:23; Admin Dose 2 TAB; Start 08/04/17 at 13:00 Bisacodyl (Dulcolax Supp) 10 mg DAILY PRN [place] CONSTIPATION; Start 08/04/17 at 13 :00 Tamsulosin HCl (Flomax) 0.4 mg Q24H PO Last administered on 08/10/17 12:23; Admin Dose 0.4 MG; Start 08/06/17 at 13:00 Simethicone (Mylicon) 80 mg TID PRN PO DISTENSION/GAS/BLOATING Last administered on 08/09/17 22:18; Admin Dose 80 MG; Start 08/07/17 at 23:30 Insulin Glargine (Lantus) 20 unit QHS SC Last administered on 08/09/17 21:15 ; Admin Dose 20 UNIT; Start 08/08/17 at 21:00 Repaglinide (Prandin) 1 mg TID PO Last administered on 08/10/17 12:23; Admin Dose 1 MG; Start 08/09/17 at 07:00 Furosemide (Lasix) 40 mg DAILY PO Last administered on 08/10/17 09:24; Admin Dose 40 MG; Start 08/10/17 at 09:00 Carvedilol (Coreg) 6.25 mg BID PO ; Start 08/10/17 at 21:00 Azithromycin (Zithromax) 500 mg DAILY PO Last administered on 08/10/17 14:11 ; Admin Dose 500 MG; Start 08/10/17 at 13:30 ROSEMARY PRUETT MD Aug 10, 2017 20:04
[2017-08-10 20:25] VITALS: BP 173/84; RESP 16
[2017-08-10] MEDS: AMLODIPINE 10 MG TAB PO SCH (21:21)
[2017-08-10] MEDS: ATORVASTATIN 80 MG TAB PO SCH (21:21)
[2017-08-10] MEDS: INSULIN GLARGINE [LANtus] 3 ML PEN SC SCH (21:26)
[2017-08-10] MEDS: hydrOXYzine HCL 25 MG TAB PO PRN (21:35)
[2017-08-11 01:30] VITALS: BP 140/66; RESP 16
[2017-08-11] MEDS: OXYCODONE/ACETAMINOPHEN (5/325) TAB PO SCH ×2 (06:23→10:58)
[2017-08-11 06:53] LABS: CALCIUM 7.8 mg/dl (8.4-10.2); CREATININE 1.54 mg/dl (0.61-1.24); POTASSIUM 3.9 mmol/L (3.5-5.1)
[2017-08-11 07:56] VITALS: BP 166/80; RESP 18
[2017-08-11] MEDS: INSULIN ASPART [NOVOLOG] 3 ML PEN SC SCH ×2 (08:14→12:04)
[2017-08-11] MEDS: FAMOTIDINE 20 MG TAB PO SCH (08:26)
[2017-08-11] MEDS: CHOLECALCIFEROL 1,000 UNIT TAB PO SCH (08:26)
[2017-08-11] MEDS: EZETIMIBE 10 MG TAB PO SCH (08:26)
[2017-08-11] MEDS: AZITHROMYCIN 250 MG TAB PO SCH (08:26)
[2017-08-11] MEDS: FUROSEMIDE 40 MG TAB PO SCH (08:27)
[2017-08-11] MEDS: POTASSIUM CHLORIDE (SR) 20 MEQ TAB PO SCH (08:27)
[2017-08-11] MEDS: SENNA TAB PO SCH (08:28)
[2017-08-11] MEDS: HEPARIN 5,000 UNIT/0.5 ML VIAL SC SCH (08:29)
[2017-08-11] MEDS: REPAGLINIDE 1 MG TAB PO SCH ×2 (09:15→12:06)
[2017-08-11] MEDS ORDERED: VITAMIN A & D 5 GM OINT PACKET TOP ONE (11:00)
--- NOTE | 2017-08-11 11:48 | PN ---
Date/Time of Note Date/Time of Note DATE: 08/11/17 TIME: 11:47 Assessment/Plan VTE Prophylaxis VTE Prophylaxis Intervention: other Assessment/Plan Chief Complaint/Hosp Course ) Chest Pain 2) Acute Diastolic Heart failure 3) Uncontrolled HTN, Chronic, ? Compliance 4) History of DM 5) Likely MARIA DEL CARMEN on CKD stage unspecified 6) Anemia, Normocytic, likely chronic diease 7) Hx of DVT, No evidence on this admission 8) Urinary Retention [id number] bp improving stable renal function Problems: Subjective 24 Hr Interval Summary Constitutional: no complaints Exam/Review of Systems Vital Signs Vitals Vital Signs Date Time Temp Pulse Resp B/P Pulse Ox O2 Delivery O2 Flow Rate FiO2 08/11/17 07:56 99.4 79 18 166/80 96 08/10/17 02:00 Room Air Intake and Output 08/10/17 08/10/17 08/11/17 15:00 23:00 07:00 Intake Total 920 ml Output Total 820 ml Balance 100 ml Exam Constitutional: alert, oriented, well developed Psych: nl mood/affect, no complaints Head: atraumatic, normocephalic Eyes: EOMI, nl conjunctiva Neck: supple Respiratory: clear to auscultation, normal air movement Cardiovascular: nl pulses, regular rate and rhythm Gastrointestinal: nl liver, spleen, non-tender, soft Musculoskeletal: nl extremities to inspection Results Result Diagram: 08/10/17 0535 08/11/17 0532 Results 24 hrs Laboratory Tests Test 08/10/17 12:22 08/10/17 17:30 08/10/17 21:18 08/11/17 05:32 Bedside Glucose 141 79 131 Sodium Level 140 Potassium Level 3.9 Chloride Level 107 Carbon Dioxide Level 29 Anion Gap 8 Blood Urea Nitrogen 31 H Creatinine 1.54 H Glucose Level 136 # Calcium Level 7.8 L Test 08/11/17 08:03 Bedside Glucose 121 Medications Medications Current Medications Nitroglycerin (Nitroglycerin (Sl Tab) 0.4 Mg) 1 tab Q5M PRN SL ANGINA; Start 08/02/17 at 03:30 Miscellaneous Information 1 ea NOTE XX ; Start 08/02/17 at 04:00 Glucose (Glutose) 15 gm Q15M PRN PO DECREASED GLUCOSE; Start 08/02/17 at 04:00 Glucose (Glutose) 22.5 gm Q15M PRN PO DECREASED GLUCOSE; Start 08/02/17 at 04: 00 Dextrose (D50w Syringe) 25 ml Q15M PRN IV DECREASED GLUCOSE; Start 08/02/17 at 04:00 Dextrose (D50w Syringe) 50 ml Q15M PRN IV DECREASED GLUCOSE; Start 08/02/17 at 04:00 Glucagon (Glucagen) 1 mg Q15M PRN IM DECREASED GLUCOSE; Start 08/02/17 at 04:00 Glucose (Glutose) 15 gm Q15M PRN BUCCAL DECREASED GLUCOSE; Start 08/02/17 at 04 :00 Amlodipine Besylate (Norvasc) 10 mg QHS PO Last administered on 08/10/17 21: 21; Admin Dose 10 MG; Start 08/02/17 at 21:00 Atorvastatin Calcium (Lipitor) 80 mg QHS PO Last administered on 08/10/17 21: 21; Admin Dose 80 MG; Start 08/02/17 at 21:00 Cholecalciferol (Vitamin D) 1,000 unit DAILY PO Last administered on 08:26; Admin Dose 1,000 UNIT; Start 08/02/17 at 09:00 EZETIMIBE (Zetia) 10 mg DAILY PO Last administered on 08/11/17 08:26; Admin Dose 10 MG; Start 08/02/17 at 09:00 Hydralazine HCl (Apresoline) 100 mg Q8 PO Last administered on 08/11/17 06:23 ; Admin Dose 100 MG; Start 08/02/17 at 06:00 Lisinopril (Zestril) 40 mg DAILY PO Last administered on 08/02/17 09:37; Admin Dose 40 MG; Start 08/02/17 at 09:00; Status Future Hold Oxycodone/ Acetaminophen (Percocet (5/ 325)) 1 tab Q6H PO Last administered on 08/11/17 06:23; Admin Dose 1 TAB; Start 08/02/17 at 05:00 Potassium Chloride (Klor-Con 20) 20 meq DAILY PO Last administered on 08:27; Admin Dose 20 MEQ; Start 08/02/17 at 09:00 Guaifenesin/ Dextromethorphan (Robitussin Dm Liquid Cup) 10 ml Q4H PRN PO COUGH Last administered on 08/04/17 06:21; Admin Dose 10 ML; Start 08/02/17 at 08:00 Hydroxyzine HCl (Atarax) 25 mg Q6H PRN PO ITCHING Last administered on 21:35; Admin Dose 25 MG; Start 08/02/17 at 09:00 Famotidine (Pepcid) 20 mg DAILY PO Last administered on 08/11/17 08:26; Admin Dose 20 MG; Start 08/02/17 at 13:00 Morphine Sulfate (morphine) 4 mg Q4H PRN IV PAIN LEVEL 4-7 Last administered on 08/08/17 21:30; Admin Dose 4 MG; Start 08/03/17 at 00:45 Hydralazine HCl (Apresoline) 10 mg Q4H PRN IV ELEVATED BLOOD PRESSURE Last administered on 08/10/17 10:42; Admin Dose 10 MG; Start 08/03/17 at 01:00 Heparin Sodium (Porcine) (Heparin (5000 Units/0.5 ml)) 5,000 unit BID SC Last administered on 08/11/17 08:29; Admin Dose 5,000 UNIT; Start 08/03/17 at 21:00 Magnesium Hydroxide (Milk Of Mag) 30 ml BID PRN PO CONSTIPATION Last administered on 08/10/17 10:41; Admin Dose 30 ML; Start 08/04/17 at 13:00 Senna (Senokot) 2 tab BID PO Last administered on 08/11/17 08:28; Admin Dose 2 TAB; Start 08/04/17 at 13:00 Bisacodyl (Dulcolax Supp) 10 mg DAILY PRN [place] CONSTIPATION; Start 08/04/17 at 13 :00 Tamsulosin HCl (Flomax) 0.4 mg Q24H PO Last administered on 08/10/17 12:23; Admin Dose 0.4 MG; Start 08/06/17 at 13:00 Simethicone (Mylicon) 80 mg TID PRN PO DISTENSION/GAS/BLOATING Last administered on 08/09/17 22:18; Admin Dose 80 MG; Start 08/07/17 at 23:30 Insulin Glargine (Lantus) 20 unit QHS SC Last administered on 08/10/17 21:26 ; Admin Dose 20 UNIT; Start 08/08/17 at 21:00 Furosemide (Lasix) 40 mg DAILY PO Last administered on 08/11/17 08:27; Admin Dose 40 MG; Start 08/10/17 at 09:00 Carvedilol (Coreg) 6.25 mg BID PO Last administered on 08/11/17 08:28; Admin Dose 6.25 MG; Start 08/10/17 at 21:00 Azithromycin (Zithromax) 500 mg DAILY PO Last administered on 08/11/17 08:26 ; Admin Dose 500 MG; Start 08/10/17 at 13:30 ZI PALAFOX MD Aug 11, 2017 11:48
[2017-08-11] MEDS: TAMSULOSIN (SR) 0.4 MG CAP PO SCH (12:05)
--- NOTE | 2017-08-11 13:42 | PDOCDIS ---
Discharge Instructions DIAGNOSIS Discharge Diagnosis Acute on chronic renal failure. CONDITION Patient Condition: Stable HOME CARE INSTRUCTIONS: Special Diet: CARB CONTROLLED FOLLOW UP/APPOINTMENTS Follow-up Plan 1. Nicolás Green MD Specialty Nephrology Office Address [facility] [address], [place] [address] Office 2. Jeremiah Pascual MD Specialty: Internal Medicine Office Address: [address] [place] [address] [address] [place] [address] Office OTHER ORDERS: Other Orders: 1. Take medications as per prescription. 2. Take a carbohydrate controlled, low-cholesterol diet 3. Avoid using recreational drugs. 4. Follow-up with your primary care physician in the next 2 weeks. If you do not have a primary care physician, call Dr. Jeremiah Pascual's office. 5. Follow-up with nephrology (Dr. Green) in the next 2 weeks. Please call for appointment. GEORGI CORBETT NP Aug 11, 2017 13:42
[2017-08-11] MEDS ORDERED: REPA1TAB14 PO (13:48)
[2017-08-11] MEDS ORDERED: FURO40TA4 PO (13:48)
[2017-08-11] MEDS ORDERED: LANT3I SC (13:48)
[2017-08-11] MEDS ORDERED: TAMS-14 PO (13:48)
[2017-08-11] MEDS ORDERED: CARV6.2579 PO (13:48)
[2017-08-11 13:52] VITALS: BP 172/83; RESP 18
--- NOTE | 2017-08-11 17:22 | DS ---
Date/Time of Note Date/Time of Note DATE: 08/11/17 TIME: 17:22 Discharge Summary Admission/Discharge Info Admit Date/Time Aug 02, 2017 at 01:07 Discharge Date/Time Aug 11, 2017 at 15:20 Discharge Diagnosis 1. Atypical chest pain. Resolved. 2. Acute on chronic kidney disease. 3. Acute on chronic diastolic heart failure. 4. Diabetes mellitus. 5. Essential hypertension. 6. Anemia. Normocytic and hypochromic. 6. Dyslipidemia. 7. Substance abuse. 8. BPH. 9. Chronic right foot drop. 10. Obesity. Patient Condition: Stable Consults 1. Yvon Garcia MD, Cardiology. 2. Nicolás Green MD, Nephrology. Procedures Bilateral Lower Extremity Venous Doppler Study IMPRESSION: No evidence of a deep vein thrombosis within the bilateral lower extremities. CXR IMPRESSION: Small bilateral pleural effusions. 2D Echocardiogram Conclusions 1. The left ventricle is normal in size and systolic function. 2. Estimated left ventricular ejection fraction of 55-60%. 3. Moderate concentric left ventricular hypertrophy. Hx of Present Illness This is a 42-year-old male patient with past medical history essential hypertension, type 2 diabetes mellitus, dyslipidemia, ventilator dependent respiratory failure, substance abuse, and obesity who came to the emergency room with chief complaint of bilateral lower extremity edema, dyspnea, chest pain, and cough. The patient also reported fever and shaking chills. He denied any sick contacts. In the ER, the patient's blood pressure was 197/92. Provided the patient's history of present illness, his comorbidities and the diagnostic findings, a clinical decision was made to admit the patient to inpatient setting to have him further evaluated. Hospital Course The patient's serial troponins remained negative. The patient's 2D echocardiogram showed preserved left ventricular ejection fraction. The patient was ruled out for any underlying acute coronary syndrome. The patient was noticed to have diastolic heart failure. The patient was maintained on diuretics as the patient's kidney function allowed. The patient was being followed by nephrology. The patient has underlying chronic kidney disease. Nephrotoxic drugs were used with caution. The patient has underlying essential hypertension. The patient was maintained on antihypertensives for the same. He has underlying diabetes mellitus with a hemoglobin A1c of 8.3. The patient was maintained on sliding scale insulin along with basal insulin. The patient was refusing pre-meal insulin. Hence patient was started on pre-meal meglitinides with well-controlled blood sugars throughout the hospital course. The patient was noticed to have normocytic and hypochromic anemia. The patient's iron panel did not show any evidence of significant iron deficiency. The patient's H&H remained stable. The patient is anemia could have been most probably secondary to underlying chronic disease. The patient has underlying dyslipidemia. He was maintained on statins for the same. The patient was maintained on antibiotics for upper respiratory infection and the patient's sputum culture was negative for any infectious pathogens. The patient has a history of substance abuse. He was advised on the importance of quitting the use of illicit drug use. The patient has a chronic right foot drop. The patient was seen and evaluated by physical therapy. Physical therapy recommended home health for home physical therapy and safety evaluation along with provision of a right ankle foot orthotic device. Case management order was put in for an AFO and this was arranged prior to the patient was discharged. The patient has prior history of lower extremity DVT. The patient underwent bilateral lower extremity venous Doppler study 2 that was negative for any DVT. The patient had a stable but prolonged hospital course. The patient is stable to be discharged home. Discharge Instructions 1. Take medications as per prescription. 2. Take a carbohydrate controlled, low-cholesterol diet 3. Avoid using recreational drugs. 4. Follow-up with your primary care physician in the next 2 weeks. If you do not have a primary care physician, call Dr. Jeremiah Pascual's office. 5. Follow-up with nephrology (Dr. Green) in the next 2 weeks. Please call for appointment. The patient verbalized understanding of his discharge instructions. At this time I would like to thank all the consultants for seeing the patient and providing clinical recommendations. Case discussed with Dr. Mccabe. Home Meds Active Scripts Tamsulosin Hcl* (Flomax*) 0.4 Mg Cap.er.24h, 0.4 MG PO Q24H, #30 CAP Prov:GEORGI CORBETT NP 08/11/17 Carvedilol* (Carvedilol*) 6.25 Mg Tablet, 6.25 MG PO BID, #60 TAB Prov:GEORGI CORBETT NP 08/11/17 Furosemide* (Furosemide*) 40 Mg Tablet, 40 MG PO DAILY, #30 TAB Prov:GEORGI CORBETT NP 08/11/17 Insulin Glargine* (Lantus*) 100 Unit/Ml Soln, 20 UNIT SC QHS for 30 Days, #1 VIAL Prov:GEORGI CORBETT PARTS CLEANER 08/11/17 Repaglinide* (Prandin*) 1 Mg Tablet, 1 MG PO AC MEALS, #90 TAB Prov:GEORGI CORBETT [employer]S CLEANER 08/11/17 Cholecalciferol* (Vitamin D3*) 1,000 Unit Tablet, 1000 UNIT PO DAILY for 30 Days , TAB 2 Refills Prov:LEXII REED M. 01/13/17 Reported Medications Amlodipine Besylate* (Amlodipine Besylate*) 10 Mg Tablet, 10 MG PO QHS, #30 TAB 08/01/17 Atorvastatin* (Atorvastatin*) 80 Mg Tablet, 80 MG PO QHS, #30 TAB 08/01/17 Hydralazine Hcl* (Hydralazine Hcl*) 100 Mg Tablet, 100 MG PO Q8, #90 TAB 08/01/17 Ezetimibe* (Zetia*) 10 Mg Tablet, 10 MG PO DAILY, TAB 08/01/17 Discontinued Reported Medications Potassium Chloride* (Potassium Chloride*) 20 Meq Tablet.er, 20 MEQ PO DAILY, TAB.SA 08/01/17 Insulin Glargine* (Lantus*) 100 Unit/Ml Soln, 30 UNIT SC QHS, #1 VIAL 08/01/17 Oxycodone HCl/Acetaminophen (Percocet 5-325 mg Tablet) 1 Each Tablet, 1 EACH PO Q6H, TAB 08/01/17 Discontinued Scripts Furosemide* (Lasix*) 40 Mg Tablet, 40 MG PO DAILY, #20 TAB Prov:LU GILLILAND MD 05/09/17 Lisinopril* (Lisinopril*) 40 Mg Tablet, 40 MG PO DAILY, #30 TAB 2 Refills Prov:LEXII REED . 01/13/17 Carvedilol* (Carvedilol*) 25 Mg Tablet, 25 MG PO BID, #60 TAB 2 Refills Prov:LEXII REED M. 01/13/17 Follow-up Plan 1. Nicolás Green MD Specialty Nephrology Office Address [facility] [address], [place] [address] Office 2. Jeremiah Pascual MD Specialty: Internal Medicine Office [facility] [address] [address] [place] [address] Office Primary Care Provider [facility] Time spent on discharge: 35 mins. Pending Labs Laboratory Tests Test 08/10/17 17:30 08/10/17 21:18 08/11/17 05:32 08/11/17 08:03 Bedside Glucose 79mg/dL (70-220) 131mg/dL (70-220) 121mg/dL (70-220) Sodium Level 140mmol/L (135-144) Potassium Level 3.9mmol/L (3.5-5.1) Chloride Level 107mmol/L (97-110) Carbon Dioxide Level 29mmol/L (21-31) Anion Gap 8 (8-16) Blood Urea Nitrogen 31mg/dl (7-20) Creatinine 1.54mg/dl (0.61-1.24) Glucose Level 136mg/dl (70-220) Calcium Level 7.8mg/dl (8.4-10.2) Test 08/11/17 12:00 Bedside Glucose 119mg/dL (70-220) GEORGI CORBETT NP Aug 11, 2017 17:22
--- NOTE | 2017-08-11 18:52 | RADRPT ---
Vent Rate: 78 bpm RR Interval: 0 msec ME Interval: 148 msec QRS Duration: 92 msec QT Interval: 394 msec QTC Interval: 449 msec P-R-T [place]: 38 - 13 - 51 degrees Normal sinus rhythm Normal ECG Electronically Signed By: Karlo Astudillo [id number]
== END 2017-08-11 15:20 | disposition home health service (06) | DRG 291 ==
LOC: E/R 20:35 → TEL 08-02 01:07 → MS2 08-05 19:28
PROVIDERS: ADMIT Internal Medicine; ATTEND Internal Medicine
DX: I13.0 Hypertensive heart and chronic kidney disease with heart failure and stage 1 through stage 4 chronic kidney disease, or unspecified chronic kidney disease (principal); I50.33 Acute on chronic diastolic (congestive) heart failure; N17.9 Acute kidney failure, unspecified; E11.22 Type 2 diabetes mellitus with diabetic chronic kidney disease; I16.1 Hypertensive emergency; E78.5 Hyperlipidemia, unspecified; N18.9 Chronic kidney disease, unspecified; J06.9 Acute upper respiratory infection, unspecified; R07.89 Other chest pain; M21.371 Foot drop, right foot; M19.90 Unspecified osteoarthritis, unspecified site; N40.1 Benign prostatic hyperplasia with lower urinary tract symptoms; R33.8 Other retention of urine; D63.8 Anemia in other chronic diseases classified elsewhere; Z86.718 Personal history of other venous thrombosis and embolism; Z79.4 Long term (current) use of insulin
CPT/HCPCS: 36415; 71010; 71020; 76775; 80048; 80053; 80061; 81001; 82465; 82728; 82962; 83036; 83540; 83735; 83880; 84100; 84443; 84484; 85025; 85610; 85730; 87070; 93005; 93306; 93970; 96374; 97110; 97116; 97161; 97530; J0360; J1644; J1815; J1940; J1956; J2270; J2920

== ENCOUNTER 2017-08-16 14:49 | Outpatient (CLI) | END 2017-08-16 15:43 | disposition home or self-care (01) ==

== ENCOUNTER 2017-08-30 11:04 | Inpatient (IN) | END 2017-09-12 17:36 | disposition home or self-care (01) | DRG 291 ==

== ENCOUNTER 2017-09-25 16:07 | Inpatient (IN) | END 2017-09-28 18:04 | disposition home or self-care (01) | DRG 292 ==

== ENCOUNTER 2017-10-03 01:24 | Inpatient (IN) | END 2017-10-05 15:43 | disposition home or self-care (01) | DRG 194 ==

== ENCOUNTER 2017-11-10 12:09 | Emergency (ER) | END 2017-11-10 14:12 | disposition home or self-care (01) ==

== ENCOUNTER 2018-01-24 09:55 | Inpatient (IN) | END 2018-01-30 16:35 | disposition home or self-care (01) | DRG 291 ==

== ENCOUNTER 2018-02-08 00:05 | Inpatient (IN) | END 2018-02-12 16:03 | disposition home or self-care (01) | DRG 291 ==

== ENCOUNTER 2018-02-28 02:25 | Inpatient (IN) | END 2018-03-06 17:00 | disposition home or self-care (01) | DRG 871 ==

== ENCOUNTER 2018-04-16 02:14 | Observation (INO) | END 2018-04-17 10:50 | disposition home or self-care (01) ==

== ENCOUNTER 2018-05-06 15:26 | Inpatient (IN) | END 2018-05-10 14:03 | disposition home or self-care (01) | DRG 291 ==

== ENCOUNTER 2018-08-30 19:01 | Emergency (ER) | payer OTHER ==
[~2018-08-30] VITALS: Ht 170.2 cm; Wt 120.0 kg
[~2018-08-30 19:01] MED LIST changes: -AMLO5TAB4 PO; +APIX5TAB PO; -ASPI-664 PO; +ATOR-2 PO; -BUME1TAB18 PO; +BUME2TAB2 PO; -CARV25TA79 PO; +CARV3.1260 PO; -DOCU-216 PO; +EZET10TA31 PO; -FAMO20TA18 PO; -FER325 PO; -FURO-109 PO; -FURO40TA4 PO; -GABA300C16 PO; -HYDR-902 PO; +HYDR100T25 PO; +INSU100I12 SQ; +ISOS30TA67 PO; +LEVO250T22 PO; -LISI40TA9 PO; +LOSA25TA2 PO; +NIFE60TA18 PO; -ONDA4TAB14 PO; +POTA10TA37 PO; -POTA20TA96 PO; -RIVA15TA PO; -RIVA20TA5 PO; -SENN-53 PO; +SPIR25TA PO; -TAMS-14 PO
[2018-08-30 19:13] VITALS: Ht 170.2 cm; Wt 120.0 kg
[2018-08-30] MEDS ORDERED: morphine 4 MG/ML VIAL IV STA (21:18)
--- NOTE | 2018-08-30 23:13 | ERD ---
ER Documentation Chief Complaint Chief Complaint out of breath,CPs,leg edema since last nite,hx CHF,DM,HTN,DVT,PNA HPI This is a 43-year-old male with a history of hypertension, diabetes, CHF who presents to the emergency room for evaluation of leg swelling. The patient states he is also had abdominal cramping which has been on and off for the past 24 hours. Patient does state he is taking Bumex at home however his legs have continued to swell. The patient denies any shortness of breath or chest pain or heart palpitations at this time and came to the emergency room for evaluation of his symptoms. ROS All systems reviewed and are negative except as per history of present illness. Medications Home Meds Active Scripts Levofloxacin* (Levaquin*) 250 Mg Tablet, 250 MG PO DAILY@06 for 2 Days, TAB Prov:MERARY SAHU MD 05/10/18 Losartan Potassium* (Cozaar*) 25 Mg Tablet, 25 MG PO DAILY, #30 TAB Prov:BREANA MORALES 05/09/18 Nifedipine* (Nifedipine ER*) 60 Mg Tablet.sa, 60 MG PO BID, #60 TAB.SA Prov:BREANA MORALES 05/09/18 Bumetanide* (Bumetanide*) 2 Mg Tablet, 2 MG PO BID, #180 TAB Prov:LOLIS CROWDER MD 05/09/18 Reported Medications Hydralazine Hcl* (Hydralazine Hcl*) 100 Mg Tablet, 100 MG PO TID, #90 TAB 05/07/18 Potassium Chloride* (K-Dur*) 10 Meq Tab.prt.sr, 10 MEQ PO BID, TAB 05/06/18 Hydralazine Hcl* (Hydralazine Hcl*) 50 Mg Tab, 50 MG PO Q8 PRN for ELEVATED BLOOD PRESSURE, #90 TAB 05/06/18 Ezetimibe* (Zetia*) 10 Mg Tablet, 10 MG PO HS, TAB 05/06/18 Carvedilol* (Carvedilol*) 3.125 Mg Tablet, 3.125 MG PO BID, #60 TAB 05/06/18 Apixaban* (Eliquis*) 5 Mg Tablet, 5 MG PO BID, TAB 05/06/18 Isosorbide Mononitrate* (Isosorbide Mononitrate*) 30 Mg Tab.er.24h, 30 MG PO DAILY, TAB 04/16/18 Spironolactone* (Aldactone*) 25 Mg Tablet, 25 MG PO DAILY, #30 TAB 04/16/18 Cholecalciferol* (Vitamin D3*) 1,000 Unit Tablet, 2000 UNIT PO DAILY, TAB 04/16/18 Insulin Lispro (Humalog Kwikpen U-100) 100 Unit/1 Ml Insuln.pen, 10 UNIT SQ WITH MEALS, EA 04/16/18 Insulin Glargine* (Lantus*) 100 Unit/Ml Soln, 30 UNIT SC QHS, #1 VIAL 02/28/18 Atorvastatin* (Atorvastatin*) 80 Mg Tablet, 80 MG PO QHS, #30 TAB 02/07/18 Allergies Allergies: Coded Allergies: ibuprofen (Unverified Allergy, Mild, 05/06/18) PMhx/Soc History of Surgery: Yes (Amputation left big toe. eye surgery left eye) Anesthesia Reaction: No Hx Neurological Disorder: No Hx Respiratory Disorders: Yes (SOB) Hx Cardiac Disorders: Yes (CHF) Hx Psychiatric Problems: No Hx Miscellaneous Medical Probl: No Hx Alcohol Use: No Hx Substance Use: Yes Hx Tobacco Use: Yes Smoking Status: Current every day smoker Physical Exam Vitals Vital Signs Date Temp Pulse Resp B/P (MAP) Pulse Ox O2 O2 Flow FiO2 Time Delivery Rate 08/30/18 98.2 82 22 145/80 98 Room Air 21:20 (101) 08/30/18 98.2 94 22 166/76 98 19:13 (106) Physical Exam INITIAL VITAL SIGNS: Reviewed by me GENERAL: The patient is well developed and appropriate for usual state of health in no apparent distress HEENT: Pupils equal, round, and reactive to light. EOMI. There is no scleral icterus. NECK: C-spine is soft and supple, there is no meningismus. There is no cervical lymphadenopathy. LUNGS: Clear to auscultation bilaterally. There are no rales, wheezes or rhonchi. HEART: Regular rate and rhythm, no murmurs, clicks, rubs or gallops. ABDOMEN: Soft, non-tender, non-distended. There are bowel sounds in all four quadrants. No rebound or guarding. EXTREMITIES: Less pitting edema in the bilateral lower extremities, no erythema NEUROLOGICAL: The patient moves all four extremities with 5/5 strength. Cranial nerves II - XII are intact. Normal gait. Alert and oriented SKIN: There is no apparent rash or petechiae. HEME/LYMPHATIC: There is no evidence of excessive bruising or lymphedema. PSYCHIATRIC: The patient does not appear anxious or depressed. Result Diagram: 08/30/18214908/30/182149 Results 24 hrs Laboratory Tests Test 08/30/18 21:50 White Blood Count 9.1 10^3/ul Red Blood Count 3.31 10^6/ul Hemoglobin 8.9 g/dl Hematocrit 26.3 % Mean Corpuscular Volume 79.5 fl Mean Corpuscular Hemoglobin 26.9 pg Mean Corpuscular Hemoglobin Concent 33.8 g/dl Red Cell Distribution Width 12.5 % Platelet Count 239 10^3/UL Mean Platelet Volume 11.0 fl Immature Granulocytes % 0.800 % Neutrophils % 68.2 % Lymphocytes % 14.4 % Monocytes % 8.8 % Eosinophils % 7.4 % Basophils % 0.4 % Nucleated Red Blood Cells % 0.0 /100WBC Immature Granulocytes # 0.070 10^3/ul Neutrophils # 6.2 10^3/ul Lymphocytes # 1.3 10^3/ul Monocytes # 0.8 10^3/ul Eosinophils # 0.7 10^3/ul Basophils # 0.0 10^3/ul Nucleated Red Blood Cells # 0.0 10^3/ul Sodium Level 134 mmol/L Potassium Level 4.5 mmol/L Chloride Level 100 mmol/L Carbon Dioxide Level 24 mmol/L Anion Gap 10 Blood Urea Nitrogen 68 mg/dl Creatinine 3.38 mg/dl Est Glomerular Filtrat Rate mL/min 20 mL/min Glucose Level 246 mg/dl Calcium Level 9.0 mg/dl Total Bilirubin 0.0 mg/dl Direct Bilirubin 0.00 mg/dl Indirect Bilirubin 0.0 mg/dl Aspartate Amino Transf (AST/SGOT) 43 IU/L Alanine Aminotransferase (ALT/SGPT) 93 IU/L Alkaline Phosphatase 207 IU/L Troponin I 0.023 ng/ml B-Type Natriuretic Peptide 3560 PG/ML Total Protein 7.0 g/dl Albumin 3.8 g/dl Globulin 3.20 g/dl Albumin/Globulin Ratio 1.18 Current Medications Medications Dose Sig/Kuldeep Start Time Status Last (Trade) Ordered Route PRN Stop Time Admin Dose Reason Admin Morphine 4 mg ONCE STAT 08/30/18 DC 08/30/18 Sulfate IV 21:18 08/30/18 22:05 (morphine) 21:20 Procedures/MDM Chest X-ray 1V Interpreted by me: Soft Tissue: No acute abnormalities Bones: No acute abnormalities Mediastinum/Cardiac Silhouette/Lungs: [No acute abnormalities] EKG: Rate/Rhythm: [Normal Sinus Rhythm] QRS, ST, T-waves: [No changes consistent w/ acute ischemia] Impression: [No evidence of ischemia or arrhythmia] This 43-year-old male presents to the emergency room for evaluation of bilateral lower extremity swelling. The patient does have a history of hypertension, heart failure, diabetes. On my exam the patient was not hypoxic, he was complaining of some abdominal cramping. Lab work was obtained which is normal. He was given morphine for his pain and on reevaluation his pulse ox is 99%. His chest x-ray is clear, he is in no acute distress. I advised the patient that he should keep compression stockings on his legs and keep his legs elevated. His creatinine is only slightly elevated compared to his baseline with no signs of acute renal failure no signs of severe electrolyte abnormality. The patient was given 1 mg IV Bumex and will be discharged at this time. He was given strict return precautions and I advised him that with his swelling were to get worse he can return to the ER for admission and he verbalized understanding. Departure Diagnosis: Primary Impression: Peripheral edema Additional Impressions: CKD (chronic kidney disease) stage 3, GFR 30-59 ml/min Microcytic anemia Condition: Stable ALYCIA DIAZ DO Aug 30, 2018 23:13
[2018-08-30] MEDS ORDERED: BUMETANIDE 1 MG INJ IV ONE (23:30)
[2018-08-30 23:54] VITALS: BP 136/78; PULSE 80; RESP 22
== END 2018-08-30 23:56 | disposition home or self-care (01) ==
LOC: E/R 19:01
DX: R60.0 Localized edema (principal); I50.9 Heart failure, unspecified; N18.3 Chronic kidney disease, stage 3 (moderate); I13.0 Hypertensive heart and chronic kidney disease with heart failure and stage 1 through stage 4 chronic kidney disease, or unspecified chronic kidney disease; E11.22 Type 2 diabetes mellitus with diabetic chronic kidney disease; F17.210 Nicotine dependence, cigarettes, uncomplicated; D50.9 Iron deficiency anemia, unspecified; Z79.4 Long term (current) use of insulin
CPT/HCPCS: 71045; 80053; 83880; 84484; 85025; J2270; Z7610; 36415; 93005; 96374; 96375

== ENCOUNTER 2018-09-13 06:46 | Inpatient (IN) | payer OTHER ==
[~2018-09-13] VITALS: Ht 170.2 cm; Wt 114.1 kg
[2018-09-13 06:49] VITALS: Ht 170.2 cm; Wt 114.1 kg
--- NOTE | 2018-09-13 06:57 | ERD ---
ER Documentation Chief Complaint Chief Complaint SOB x 1 day; Chest pressure; BLE swelling; Hx of CHF HPI 43-year-old man with a history of congestive heart failure and chronic kidney disease presents with increasing shortness of breath, dyspnea on exertion, orthopnea, paroxysmal nocturnal dyspnea. He states he has been using Bumex daily as prescribed and continues to have bilateral lower extremity swelling and decreased urination. Patient denies fevers or chills, no cough, no chest pain, no abdominal pain, no vomiting or diarrhea ROS All systems reviewed and are negative except as per history of present illness. Medications Home Meds Active Scripts Levofloxacin* (Levaquin*) 250 Mg Tablet, 250 MG PO DAILY@06 for 2 Days, TAB Prov:MERARY SAHU MD 05/10/18 Losartan Potassium* (Cozaar*) 25 Mg Tablet, 25 MG PO DAILY, #30 TAB Prov:BREANA MORALES 05/09/18 Nifedipine* (Nifedipine ER*) 60 Mg Tablet.sa, 60 MG PO BID, #60 TAB.SA Prov:BREANA MORALES 05/09/18 Bumetanide* (Bumetanide*) 2 Mg Tablet, 2 MG PO BID, #180 TAB Prov:LOLIS CROWDER MD 05/09/18 Reported Medications Hydralazine Hcl* (Hydralazine Hcl*) 100 Mg Tablet, 100 MG PO TID, #90 TAB 05/07/18 Potassium Chloride* (K-Dur*) 10 Meq Tab.prt.sr, 10 MEQ PO BID, TAB 05/06/18 Hydralazine Hcl* (Hydralazine Hcl*) 50 Mg Tab, 50 MG PO Q8 PRN for ELEVATED BLOOD PRESSURE, #90 TAB 05/06/18 Ezetimibe* (Zetia*) 10 Mg Tablet, 10 MG PO HS, TAB 05/06/18 Carvedilol* (Carvedilol*) 3.125 Mg Tablet, 3.125 MG PO BID, #60 TAB 05/06/18 Apixaban* (Eliquis*) 5 Mg Tablet, 5 MG PO BID, TAB 05/06/18 Isosorbide Mononitrate* (Isosorbide Mononitrate*) 30 Mg Tab.er.24h, 30 MG PO DAILY, TAB 04/16/18 Spironolactone* (Aldactone*) 25 Mg Tablet, 25 MG PO DAILY, #30 TAB 04/16/18 Cholecalciferol* (Vitamin D3*) 1,000 Unit Tablet, 2000 UNIT PO DAILY, TAB 04/16/18 Insulin Lispro (Humalog Kwikpen U-100) 100 Unit/1 Ml Insuln.pen, 10 UNIT SQ WITH MEALS, EA 04/16/18 Insulin Glargine* (Lantus*) 100 Unit/Ml Soln, 30 UNIT SC QHS, #1 VIAL 02/28/18 Atorvastatin* (Atorvastatin*) 80 Mg Tablet, 80 MG PO QHS, #30 TAB 02/07/18 Allergies Allergies: Coded Allergies: ibuprofen (Unverified Allergy, Mild, 09/13/18) PMhx/Soc CHF, chronic kidney disease, anemia of chronic disease, hyperlipidemia, hypertension History of Surgery: Yes (Amputation left big toe. eye surgery left eye) Anesthesia Reaction: No Hx Neurological Disorder: No Hx Respiratory Disorders: Yes (SOB) Hx Cardiac Disorders: Yes (CHF) Hx Psychiatric Problems: No Hx Miscellaneous Medical Probl: No Hx Alcohol Use: No Hx Substance Use: Yes Hx Tobacco Use: Yes FmHx Family History: No diabetes Physical Exam Vitals Vital Signs Date Temp Pulse Resp B/P (MAP) Pulse Ox O2 O2 Flow FiO2 Time Delivery Rate 09/13/18 Nasal 2 07:59 Cannula 09/13/18 97.1 82 24 167/77 98 06:49 (107) Physical Exam GENERAL: Well-developed, well-nourished, dyspneic, afebrile HEENT: Moist mucous membranes, pink conjunctiva, no cervical spine tenderness or step-off deformities, no goiter, no jaundice or icterus, extraocular movements intact without pain. No submandibular induration, and no pharyngeal erythema NEURO: Alert and oriented 3, cranial nerves II through XII intact bilaterally, pupils equal round reactive to light, no focal deficits or facial asymmetry, sensation intact distally Strength 5/5 in upper and lower extremities bilaterally CARDIAC: Regular rate and rhythm, no murmurs rubs or gallops LUNGS: Poor breath sounds bilaterally, crackles at the bases, no wheezing or stridor ABDOMEN: Abdominal exam was limited as patient cannot lay flat he has fullness in the abdomen without tenderness or rigidity. SKIN: Warm and dry to touch, no abrasions, contusions, or hematomas, no lace rations, no ecchymosis, no target lesions, and without ulcers EXTREMITIES: No clubbing cyanosis, 3+ pitting edema in the lower extremities bilaterally, calves are bilaterally symmetrical, no Homans sign, no popliteal cord sign. Distal pulses equal and bilateral PSYCH: Normal affect without agitation or irritability Result Diagram: 09/13/18 0753 09/13/18 0753 Results 24 hrs Laboratory Tests Test 09/13/18 07:53 White Blood Count 7.4 10^3/ul Red Blood Count 2.97 10^6/ul Hemoglobin 8.0 g/dl Hematocrit 25.0 % Mean Corpuscular Volume 84.2 fl Mean Corpuscular Hemoglobin 26.9 pg Mean Corpuscular Hemoglobin Concent 32.0 g/dl Red Cell Distribution Width 13.2 % Platelet Count 220 10^3/UL Mean Platelet Volume 11.0 fl Immature Granulocytes % 0.500 % Neutrophils % 65.5 % Lymphocytes % 15.4 % Monocytes % 9.8 % Eosinophils % 8.3 % Basophils % 0.5 % Nucleated Red Blood Cells % 0.0 /100WBC Immature Granulocytes # 0.040 10^3/ul Neutrophils # 4.8 10^3/ul Lymphocytes # 1.1 10^3/ul Monocytes # 0.7 10^3/ul Eosinophils # 0.6 10^3/ul Basophils # 0.0 10^3/ul Nucleated Red Blood Cells # 0.0 10^3/ul Prothrombin Time 16.5 Sec Prothrombin Time Ratio 1.3 INR International Normalized Ratio 1.32 Activated Partial Thromboplast Time Pending Urine Color YELLOW Urine Clarity CLEAR Urine pH 5.0 Urine Specific [place] 1.010 Urine Ketones NEGATIVE mg/dL Urine Nitrite NEGATIVE mg/dL Urine Bilirubin NEGATIVE mg/dL Urine Urobilinogen NEGATIVE mg/dL Urine Leukocyte Esterase NEGATIVE Neelam/ul Urine Microscopic RBC 1 /HPF Urine Microscopic WBC 0 /HPF Urine Bacteria FEW /HPF Urine Hemoglobin NEGATIVE mg/dL Urine Glucose 2+ mg/dL Urine Total Protein 3+ mg/dl Sodium Level 138 mmol/L Potassium Level 4.4 mmol/L Chloride Level 103 mmol/L Carbon Dioxide Level 24 mmol/L Anion Gap 11 Blood Urea Nitrogen 78 mg/dl Creatinine 3.61 mg/dl Est Glomerular Filtrat Rate mL/min 18 mL/min Glucose Level 209 mg/dl Calcium Level 8.6 mg/dl Total Bilirubin 0.2 mg/dl Direct Bilirubin 0.00 mg/dl Indirect Bilirubin 0.2 mg/dl Aspartate Amino Transf (AST/SGOT) 25 IU/L Alanine Aminotransferase (ALT/SGPT) 39 IU/L Alkaline Phosphatase 101 IU/L Troponin I Pending B-Type Natriuretic Peptide 3980 PG/ML Total Protein 6.4 g/dl Albumin 3.5 g/dl Globulin 2.90 g/dl Albumin/Globulin Ratio 1.20 Lipase 246 U/L Current Medications Medications Dose Sig/Kuldeep Start Time Status Last (Trade) Ordered Route PRN Stop Time Admin Dose Reason Admin Aspirin 324 mg ONCE ONCE 09/13/18 DC 09/13/18 (Aspirin) PO 08:00 08:43 09/13/18 08:26 Furosemide 80 mg ONCE ONCE 09/13/18 DC 09/13/18 (Lasix) IV 08:00 08:02 09/13/18 08:01 Enalaprilat 1.25 mg ONCE ONCE 09/13/18 DC 09/13/18 (Vasotec Iv) IV 08:00 08:02 09/13/18 08:01 Procedures/MDM IV line was established 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 Patient was afebrile. Ritchie catheter was passed to rule out urinary obstruction EKG performed, read by me revealed a normal sinus rhythm at 81 bpm, normal axis, right ventricular conduction delay QRS duration 100 ms, no concerning ST elevations or depressions noted 1 view chest x-ray performed, read by me reveals mild congestion bilaterally, no acute infiltrates, no pneumothorax CBC reveals anemia which may be contributing to patient's dyspnea CBC reveals anemia which may be contributing to his dyspnea, electrolytes revealed acute kidney injury, although creatinine has been getting worse and is 3.6 today., BNP elevated, Troponin negative, liver function tests normal I administered enalapril 1.25 mg IV x1 for hypertension, aspirin 324 mg p.o. for cardioprotective measures, and furosemide 80 mg IV x1 Patient remains dyspneic and edematous and outpatient management with oral diuretics was attempted and failed, he will be admitted to telemetry setting for continued medical management as well as cardiology nephrology consultation Departure Diagnosis: Primary Impression: Anemia Anemia type: unspecified type Qualified Codes: D64.9 - Anemia, unspecified Additional Impressions: Essential hypertension CHF (congestive heart failure) Heart failure type: systolic Heart failure chronicity: acute Qualified Codes: I50.21 - Acute systolic (congestive) heart failure Acute kidney injury Condition: Fair TREY JAMES MD Sep 13, 2018 06:57
[2018-09-13] MEDS ORDERED: ENALAPRILAT 1.25 MG INJ IV ONE (08:00)
[2018-09-13] MEDS ORDERED: ASPIRIN 81 MG TAB PO ONE (08:00)
[2018-09-13] MEDS ORDERED: FUROSEMIDE 40 MG INJ IV ONE (08:00)
[2018-09-13 12:14] VITALS: BP 140/70; PULSE 78; RESP 17
[2018-09-13 12:18] VITALS: PULSE 75
[2018-09-13] MEDS ORDERED: LORAZEPAM 0.5 MG TAB PO PRN (12:30)
[2018-09-13] MEDS ORDERED: NITROGLYCERIN (SL) 0.4 MG TAB SL PRN (12:30)
--- NOTE | 2018-09-13 12:52 | CONS ---
Date/Time of Note Date/Time of Note DATE: 09/13/18 TIME: 12:52 Assessment/Plan Assessment/Plan Assessment/Plan 1.Acute kidney injury on CKD III due to hemodynamics from CHF 2. acute CHF exacerbation, acute on chronic, diastolic, with fluid overload and pulmonary congestion with anasarca 3. 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 H/o HTN 5. LE edema/anasarca 6. HL 7. Anemia of chronic kidney disease Plan: BUN/Cr 78/3.61- pt has been on Bumex 2mg PO BID at home, will start pt on bumex gtt 1mg/hr x 12 hr, then 2mg IV BID from tomorrow Albumin 25% 100ml IV Q 8 hr x 6 doses, will start epogen 6000 units SQ TTS for anemia Continue Renvela 800mg TID for hyperphosphatemia - monitor electrolytes and replace aggressively Renal US on previosu visit- unremarkable, Kidney size R 12.0, left 11.2 cm, normal echogenicity on last visit Nifedipine 60mg BID , Coreg 6.25mg PO BID, Hydralazine 100mg PO TID and Spironolactone 25 mg po daily Stop Losartan for now due to acute on chronic renal failure [facility] follow up Result Diagram: 09/13/18 0753 09/13/18 0753 Results 24hrs Laboratory Tests Test 09/13/18 07:53 White Blood Count 7.4 Red Blood Count 2.97 L Hemoglobin 8.0 L Hematocrit 25.0 L Mean Corpuscular Volume 84.2 Mean Corpuscular Hemoglobin 26.9 L Mean Corpuscular Hemoglobin Concent 32.0 Red Cell Distribution Width 13.2 Platelet Count 220 Mean Platelet Volume 11.0 H Immature Granulocytes % 0.500 H Neutrophils % 65.5 Lymphocytes % 15.4 Monocytes % 9.8 Eosinophils % 8.3 H Basophils % 0.5 Nucleated Red Blood Cells % 0.0 Immature Granulocytes # 0.040 H Neutrophils # 4.8 Lymphocytes # 1.1 Monocytes # 0.7 Eosinophils # 0.6 H Basophils # 0.0 Nucleated Red Blood Cells # 0.0 Prothrombin Time 16.5 H Prothrombin Time Ratio 1.3 INR International Normalized Ratio 1.32 Activated Partial Thromboplast Time 91.2 *H Urine Color YELLOW Urine Clarity CLEAR Urine pH 5.0 Urine Specific [place] 1.010 Urine Ketones NEGATIVE Urine Nitrite NEGATIVE Urine Bilirubin NEGATIVE Urine Urobilinogen NEGATIVE Urine Leukocyte Esterase NEGATIVE Urine Microscopic RBC 1 Urine Microscopic WBC 0 Urine Bacteria FEW A Urine Hemoglobin NEGATIVE Urine Glucose 2+ H Urine Total Protein 3+ H Sodium Level 138 Potassium Level 4.4 Chloride Level 103 Carbon Dioxide Level 24 Anion Gap 11 Blood Urea Nitrogen 78 H Creatinine 3.61 H Est Glomerular Filtrat Rate mL/min 18 L Glucose Level 209 Calcium Level 8.6 Total Bilirubin 0.2 Direct Bilirubin 0.00 Indirect Bilirubin 0.2 Aspartate Amino Transf (AST/SGOT) 25 Alanine Aminotransferase (ALT/SGPT) 39 Alkaline Phosphatase 101 Troponin I 0.017 B-Type Natriuretic Peptide 3980 H Total Protein 6.4 Albumin 3.5 Globulin 2.90 Albumin/Globulin Ratio 1.20 Lipase 246 Consultation Date/Type/Reason Admit Date/Time Sep 13, 2018 at 08:45 Date of Consultation: Sep 13, 2018 Type of Consult NEPHROLOGY Reason for Consultation acute fluid overload,anasarca,MARIA DEL CARMEN on CKD Requesting Provider: LEXII REED of Present Illness 43-year-old male with history of diastolic heart failure,, CKD, hypertension, diabetes, reported A. fib, obesity, who came to [facility] due to reports of shortness of breath.,pt has been on Bumex 2mg PO BID but still fluid overloaded, edematous all over his body and LE edema upto 4+. pt feel SOB when lie down He is significantly volume overloaded, BUN/Cr 78/3.61 on admission, Renal has been consulted for Acute on chronic Renal failure with anasarca No fever, no chills Constitutional: no complaints Eyes: no complaints ENT: no complaints Respiratory: pleuritic pain, shortness of breath Cardiovascular: no complaints Gastrointestinal: nausea Genitourinary: no complaints Musculoskeletal: neck pain, restricted range of motion, swelling (diffuse leg swelling, abdominal wall swelling ) Skin: no complaints Neurologic: no complaints Endocrine: no complaints Lymphatic: no complaints Psychological: no complaints Immunologic: no complaints Past Medical History Medical History: congestive heart failure, high cholesterol, hypertension, renal disease Medications Current Medications Lorazepam (Ativan) 0.5 mg Q8H PRN PO ANXIETY; Start 09/13/18 at 12:30 Ondansetron HCl (Zofran Inj) 4 mg Q6H PRN IV NAUSEA AND/OR VOMITING; Start 09/13/18 at 12:30 Nitroglycerin (Nitroglycerin (Sl Tab) 0.4 Mg) 1 tab Q5M PRN SL CHEST PAIN; Start 09/13/18 at 12:30 Acetaminophen (Tylenol Tab) 650 mg Q6H PRN PO PAIN LEVEL 1-3 OR FEVER; Start 09/13/18 at 12:30 Morphine Sulfate (morphine) 2 mg Q4H PRN IV SEVERE PAIN LEVEL 7-10; Start 09/13/18 at 13:00 Zolpidem Tartrate (Ambien) 5 mg QHS PRN PO INSOMNIA; Start 09/13/18 at 12:30 Docusate Sodium (Colace) 100 mg Q12H PO ; Start 09/13/18 at 12:30 Famotidine (Pepcid) 20 mg Q12 PO ; Start 09/13/18 at 21:00 Apixaban (Eliquis) 2.5 mg BID PO ; Start 09/13/18 at 21:00 Atorvastatin Calcium (Lipitor) 80 mg QHS PO ; Start 09/13/18 at 21:00 Carvedilol (Coreg) 3.125 mg BID PO ; Start 09/13/18 at 21:00 Cholecalciferol (Vitamin D) 2,000 unit DAILY PO ; Start 09/14/18 at 09:00 EZETIMIBE (Zetia) 10 mg HS PO ; Start 09/13/18 at 21:00 Hydralazine HCl (Apresoline) 100 mg TID PO ; Start 09/13/18 at 13:00 Insulin Glargine (Lantus) 30 units QHS SC ; Start 09/13/18 at 21:00 Isosorbide Mononitrate (Imdur) 30 mg DAILY PO ; Start 09/14/18 at 09:00 Losartan Potassium (Cozaar) 25 mg DAILY PO ; Start 09/14/18 at 09:00 Nifedipine (Procardia Xl) 60 mg BID PO ; Start 09/13/18 at 21:00 Spironolactone (Aldactone) 25 mg DAILY PO ; Start 09/14/18 at 09:00 Insulin Aspart (Novolog Insulin Pen) 10 unit WITH MEALS SC ; Start 09/13/18 at 18:00 Miscellaneous Information 1 ea NOTE XX ; Start 09/13/18 at 13:00 Glucose (Glutose) 15 gm Q15M PRN PO DECREASED GLUCOSE; Start 09/13/18 at 13:00 Glucose (Glutose) 22.5 gm Q15M PRN PO DECREASED GLUCOSE; Start 09/13/18 at 13:00 Dextrose (D50w Syringe) 25 ml Q15M PRN IV DECREASED GLUCOSE; Start 09/13/18 at 13:00 Dextrose (D50w Syringe) 50 ml Q15M PRN IV DECREASED GLUCOSE; Start 09/13/18 at 13:00 Glucagon (Glucagen) 1 mg Q15M PRN IM DECREASED GLUCOSE; Start 09/13/18 at 13:00 Glucose (Glutose) 15 gm Q15M PRN BUCCAL DECREASED GLUCOSE; Start 09/13/18 at 13:00 Allergies: Coded Allergies: ibuprofen (Unverified Allergy, Mild, 09/13/18) Past Surgical History Past Surgical Hx: other (left great toe amputation ) Family History Significant Family History: no pertinent family hx Social History Alcohol Use: none Smoking Status: Former smoker Drug Use: none Exam/Review of Systems Vital Signs Vitals Vital Signs Date Temp Pulse Resp B/P (MAP) Pulse Ox O2 O2 Flow FiO2 Time Delivery Rate 09/13/18 98.1 78 17 140/70 98 12:14 (93) 09/13/18 Room Air 11:37 09/13/18 2.0 08:54 Exam Psych: no complaints Respiratory: normal air movement, congested cough, crackles/rales, diminished breath sounds Cardiovascular: regular rate and rhythm, nl pulses Gastrointestinal: soft, distended Musculoskeletal: muscle tone, muscle weakness, swelling Extremities: normal pulses, 3+ pitting edema upto thigh, Abdominal wall edema Neurological: HISTOLOGY TECH II-XII intact, nl mental status, nl speech, nl strength Medications Medications Current Medications Lorazepam (Ativan) 0.5 mg Q8H PRN PO ANXIETY; Start 09/13/18 at 12:30 Ondansetron HCl (Zofran Inj) 4 mg Q6H PRN IV NAUSEA AND/OR VOMITING; Start 09/13/18 at 12:30 Nitroglycerin (Nitroglycerin (Sl Tab) 0.4 Mg) 1 tab Q5M PRN SL CHEST PAIN; Start 09/13/18 at 12:30 Acetaminophen (Tylenol Tab) 650 mg Q6H PRN PO PAIN LEVEL 1-3 OR FEVER; Start 09/13/18 at 12:30 Morphine Sulfate (morphine) 2 mg Q4H PRN IV SEVERE PAIN LEVEL 7-10; Start 09/13/18 at 13:00 Zolpidem Tartrate (Ambien) 5 mg QHS PRN PO INSOMNIA; Start 09/13/18 at 12:30 Docusate Sodium (Colace) 100 mg Q12H PO ; Start 09/13/18 at 12:30 Famotidine (Pepcid) 20 mg Q12 PO ; Start 09/13/18 at 21:00 Apixaban (Eliquis) 2.5 mg BID PO ; Start 09/13/18 at 21:00 Atorvastatin Calcium (Lipitor) 80 mg QHS PO ; Start 09/13/18 at 21:00 Carvedilol (Coreg) 3.125 mg BID PO ; Start 09/13/18 at 21:00 Cholecalciferol (Vitamin D) 2,000 unit DAILY PO ; Start 09/14/18 at 09:00 EZETIMIBE (Zetia) 10 mg HS PO ; Start 09/13/18 at 21:00 Hydralazine HCl (Apresoline) 100 mg TID PO ; Start 09/13/18 at 13:00 Insulin Glargine (Lantus) 30 units QHS SC ; Start 09/13/18 at 21:00 Isosorbide Mononitrate (Imdur) 30 mg DAILY PO ; Start 09/14/18 at 09:00 Losartan Potassium (Cozaar) 25 mg DAILY PO ; Start 09/14/18 at 09:00 Nifedipine (Procardia Xl) 60 mg BID PO ; Start 09/13/18 at 21:00 Spironolactone (Aldactone) 25 mg DAILY PO ; Start 09/14/18 at 09:00 Insulin Aspart (Novolog Insulin Pen) 10 unit WITH MEALS SC ; Start 09/13/18 at 18:00 Miscellaneous Information 1 ea NOTE XX ; Start 09/13/18 at 13:00 Glucose (Glutose) 15 gm Q15M PRN PO DECREASED GLUCOSE; Start 09/13/18 at 13:00 Glucose (Glutose) 22.5 gm Q15M PRN PO DECREASED GLUCOSE; Start 09/13/18 at 13:00 Dextrose (D50w Syringe) 25 ml Q15M PRN IV DECREASED GLUCOSE; Start 09/13/18 at 13:00 Dextrose (D50w Syringe) 50 ml Q15M PRN IV DECREASED GLUCOSE; Start 09/13/18 at 13:00 Glucagon (Glucagen) 1 mg Q15M PRN IM DECREASED GLUCOSE; Start 09/13/18 at 13:00 Glucose (Glutose) 15 gm Q15M PRN BUCCAL DECREASED GLUCOSE; Start 09/13/18 at 13:00 LOLIS CROWDER MD Sep 13, 2018 12:52
[2018-09-13] MEDS ORDERED: DEXTROSE 50% 50 ML SYRINGE IV PRN ×2 (13:00)
[2018-09-13] MEDS ORDERED: GLUCOSE GEL 15 GRAM TUBE BUCCAL PRN (13:00)
[2018-09-13] MEDS ORDERED: HYDROCODONE/APAP (5/325) TAB PO PRN (13:00)
[2018-09-13] MEDS ORDERED: GLUCAGON 1 MG INJ IM PRN (13:00)
[2018-09-13] MEDS ORDERED: GLUCOSE GEL 15 GRAM TUBE PO PRN ×2 (13:00)
[2018-09-13] MEDS: DOCUSATE SODIUM 100 MG CAP PO SCH (13:51)
[2018-09-13] MEDS: ALBUMIN HUMAN 25% 100 ML IV SCH ×2 (13:53→21:18)
[2018-09-13] MEDS ORDERED: BUMETANIDE 12 MG in DEXTROSE 5% 72 ML IV ONE (14:00)
[2018-09-13] MEDS: morphine 4 MG/ML VIAL IV PRN ×2 (14:03→21:02)
[2018-09-13 15:29] VITALS: BP 135/71; PULSE 85; RESP 17
[2018-09-13 16:00] VITALS: PULSE 75
[2018-09-13] MEDS: INSULIN ASPART [NOVOLOG] 3 ML PEN SC SCH (17:12)
--- NOTE | 2018-09-13 19:26 | RADRPT ---
Echocardiogram Report Patient Name: TOSHIA TOTH Gender: Male Date: 1975 Study Date: 13-Sep-2018 Rug Sample Beveler: Kwame Chavez [facility] Location: [id number]-A Ref. Physician: LEXII REED Quality: Adequate Procedures: Transthoracic echocardiogram with complete 2D, M-Mode, and doppler examination. Indications: Congestive Heart Failure. 2D/M Mode Doppler Measurement Value Normal Ranges Measurement Value Normal Ranges LVIDd 2D 4.9 3.5 - 5.6 cm AV Peak Nando 1.5 m/sec LVIDs 2D 3.2 2.1 - 4.1 cm AV Peak PG 9.0 mmHg FS 2D 36.2 % LVOT Peak Nando 1.1 m/sec LVPWd 2D 1.6 0.6 - 1.1 cm LVOT Peak PG 5.0 mmHg IVSd 2D 1.7 0.6 - 1.1 cm MV E Peak Nando 1.0 m/sec IVS/LVPW 2D 1.0 MV A Peak Nando 0.4 m/sec AoR Diam 2D 2.7 2.0 - 3.7 cm MV E/A 2.8 LA/Ao 2D 2 0 - 1 MV Decel Time 197 msec EDV 2D 121.0 cm3 MV E/A 2.8 ESV 2D 31.3 cm3 TR Peak Nando 2.5 m/sec LA Dimen 2D 5.3 2.3 - 4.0 cm TR Peak PG 26.0 mmHg RVSP 29.0 mmHg Findings Left Ventricle: Normal left ventricular systolic function. Normal left ventricular cavity size. Moderate concentric left ventricular hypertrophy. Ejection fraction is visually estimated at 55 %. Tissue Doppler/Mitral Doppler indices are consistent with pseudonormalization with mildly elevated left atrial pressure (Stage II diastolic dysfunction). Right Ventricle: Normal right ventricular size. Normal right ventricular systolic function. Left Atrium: There is severe enlargement of left atrium. Right Atrium: The right atrium is normal in size. Mitral Valve: Mild mitral leaflet calcification. Mild mitral annular calcification. Trace mitral regurgitation. Aortic Valve: No significant aortic stenosis or insufficiency. Aortic cusps appear mildly calcified. Trace aortic valve regurgitation. Tricuspid Valve: Normal appearance of the tricuspid valve. Estimated peak PA systolic pressure 29 mmHg. There is mild tricuspid regurgitation. Pericardium: Trivial to small pericardial effusion. Aorta: Normal aortic root. IVC: Normal size and normal respiratory collapse consistent with normal right atrial pressure. Conclusions Normal left ventricular systolic function. Normal left ventricular cavity size. Moderate concentric left ventricular hypertrophy. Ejection fraction is visually estimated at 55 %. Tissue Doppler/Mitral Doppler indices are consistent with pseudonormalization with mildly elevated left atrial pressure (Stage II diastolic dysfunction). There is severe enlargement of left atrium. Mild mitral leaflet calcification. Mild mitral annular calcification. Trace mitral regurgitation. No significant aortic stenosis or insufficiency. Aortic cusps appear mildly calcified. Trace aortic valve regurgitation. Normal appearance of the tricuspid valve. Estimated peak PA systolic pressure 29 mmHg. There is mild tricuspid regurgitation. Trivial to small pericardial effusion. Electronically Signed By: Willy Sanon 13-Sep-2018 19:25:33 -0800 Patient Name: TOSHIA TOTH Study Date: 13-Sep-2018 [id number]
--- NOTE | 2018-09-13 19:35 | NUR ---
END OF SHIFT AWAKE AND ALERT MALE PATIENT. ADMITTED FOR CHF AND ON BUMEX DRIP(@10ML/HR).WILL CHECK DAILY BODY WT PER CHF PROTOCOL. BACK PAIN CONTROLLING BY PAIN MEDICATION AND BLOOD SUGAR CONTROLLING BY INSULIN. DRUG SCREEING RESULT WAS POSITIVE COCAINE.NO SOB ON ROOM AIR AND MONITORING PATIENT.
[2018-09-13 20:00] VITALS: BP 137/74; PULSE 78; PULSE 79; RESP 18
[2018-09-13] MEDS: EZETIMIBE 10 MG TAB PO SCH (20:51)
[2018-09-13] MEDS: ATORVASTATIN 80 MG TAB PO SCH (20:51)
[2018-09-13] MEDS: FAMOTIDINE 20 MG TAB PO SCH (20:51)
[2018-09-13] MEDS: INSULIN GLARGINE [LANTus] (100 UNITS/ML) SYG SC SCH (20:52)
[2018-09-13] MEDS: NIFEdipine (XL) 60 MG TAB PO SCH (20:52)
[2018-09-13] MEDS: APIXABAN 5 MG TABLET PO SCH (21:03)
[2018-09-13 23:55] VITALS: BP 153/78; PULSE 77; RESP 20
[2018-09-14] VITALS (13 sets, daily range): BP systolic 132–168; BP diastolic 67–87; PULSE 71–82; RESP 18–20
[2018-09-14] MEDS: DOCUSATE SODIUM 100 MG CAP PO SCH ×2 (00:30→11:43)
--- NOTE | 2018-09-14 00:38 | HP ---
DATE OF ADMISSION: 09/13/2018 TIME OF EVALUATION: About 12:30 noon. PRESENTING COMPLAINT: Chest pressure and bilateral lower extremity swelling. HISTORY OF PRESENTING COMPLAINT: This is a 43-year-old male with a past medical history of congestiv e heart failure, paroxysmal atrial fibrillation, CKD stage IV, cocaine use and diabetes mellitus who presented to the emergency room because of worsening dyspnea on exertion, orthopnea and shortness of breath. The patient says he has been using his Bumex, but he is not getting better. He has noted lo wer extremity swelling and decreased urination. Denies fever, cough or chills. Denies chest pain, a bdominal pain, nausea, vomiting or diarrhea. Denies passing out episodes. Denies focal neurological deficits. PAST MEDICAL HISTORY: 1. Diabetes mellitus. 2. Paroxysmal atrial fibrillation, on Eliquis. 3. Chronic congestive heart failure. 4. History of pleural effusion, status post thoracentesis. 5. CKD stage IV. 6. Obesity. 7. Obstructive sleep apnea. 8. Dyslipidemia. PAST SURGICAL HISTORY: Complicated left big toe and had surgery to his left eye. ALLERGIES: HE IS ALLERGIC TO IBUPROFEN. FAMILY HISTORY: Positive for high blood pressure. REVIEW OF SYSTEMS: A 12-point review of system was done. Pertinent findings are as noted in the HPI . PHYSICAL EXAMINATION: VITAL SIGNS: Temperature 98.1, pulse 78, respirations 17, blood pressure 140/70. When he first got here, it was 167/77. Saturation is 98%. The patient is on oxygen via nasal cannula at 2 liters per minute. GENERAL: Obese male, anxious, afebrile to touch. HEENT: Head is normocephalic. Pupils are equal and reactive. Mucous membranes are moist. Orophary nx is clear of erythema and exudate. NECK: Supple without adenopathy. Mild JVD elevation. CHEST: With diminished breath sounds. I did not appreciate any crackles at this time or wheezing. CARDIOVASCULAR: Has regular rate and rhythm at this time. No murmurs. ABDOMEN: Obese, soft, nontender, nondistended. SKIN: Warm and dry without rash or jaundice. EXTREMITIES: Lower extremities are positive for 3+ edema bilaterally. PSYCHIATRIC: He was calm, cooperative with exam. LABORATORY VALUES: White blood cell is normal, but hemoglobin is low at 8. Platelet is normal. BUN is 78, creatinine 3.1. It seems his baseline creatinine is usually in the range of between 2.4 and 2.8. Coag profile was unremarkable. Urinalysis: 3+ protein, 2+ glucose, few bacteria. Urine toxic ology screen has not been done, but I will order that at this time. Of note is that BNP was elevated today at 3980. First troponin is negative. IMAGING: A chest x-ray shows no acute disease and EKG shows sinus rhythm without evidence of ischemi a. ASSESSMENT: A 43-year-old male who presents with shortness of breath and bilateral lower extremity e antonio and managed as follows: 1. Congestive heart failure exacerbation. Last echo showed ejection fraction of 60%, but abnormal d iastolic function. This is likely diastolic in origin. 2. Acute on chronic kidney disease stage IV. 3. Anemia of chronic kidney disease. 4. Paroxysmal atrial fibrillation. 5. History of cocaine use. 6. Morbid obesity. 7. History of pleural effusion, status post thoracentesis in the past. 8. Chronic dyslipidemia. 9. Diabetes mellitus with suboptimal home control. PLAN: 1. Admit to tele. 2. We will get cardiology as well as nephrology consultation. Nephrology will assist in diuresis. 3. Complete ACS rule out. 4. Continue Eliquis. 5. Continue all home medications. 6. Start hypoglycemics and titrate suboptimal control. 7. Continue supportive care. 8. We will also get urine toxicology screen. 9. Further interventions will depend on clinical course. 10. For prophylaxis, he will be on Eliquis and famotidine. Dictated By: LEXII REED MD, BA/NTS Conf#: [id number] DID#: [id number] CC: VI ADAMES MD;*EndCC*
[2018-09-14] MEDS: ZOLPIDEM 5 MG TAB PO PRN ×2 (01:44→22:38)
[2018-09-14] MEDS: ALBUMIN HUMAN 25% 100 ML IV SCH ×3 (06:15→22:38)
[2018-09-14] MEDS: morphine 4 MG/ML VIAL IV PRN ×3 (06:22→22:35)
--- NOTE | 2018-09-14 07:36 | NUR ---
EOSS:Patient reports sleeping well with Ambien medication. He wants a prescription for this medication when his discharge. Bumex drip done. Pain management with Morphine 2 mg IVP. Patient reports a bump on his mid lower abdomen which is painfull. Endorsed back to Varsha Adams RN. Daily weight questionable in comparison to weight recorded on admission.
[2018-09-14] MEDS: INSULIN ASPART [NOVOLOG] 3 ML PEN SC SCH ×3 (08:11→17:17)
[2018-09-14] MEDS: ISOSORBIDE MONONITRATE(SR)30 MG TAB PO SCH (08:14)
[2018-09-14] MEDS: APIXABAN 5 MG TABLET PO SCH ×2 (08:14→20:22)
[2018-09-14] MEDS: FAMOTIDINE 20 MG TAB PO SCH ×2 (08:14→20:22)
[2018-09-14] MEDS: SPIRONOLACTONE 25 MG TAB PO SCH (08:14)
[2018-09-14] MEDS: NIFEdipine (XL) 60 MG TAB PO SCH (08:15)
[2018-09-14] MEDS: SEVELAMER CARBONATE 800 MG TABLET PO SCH ×3 (08:15→17:15)
[2018-09-14] MEDS: CHOLECALCIFEROL 1,000 UNIT TAB PO SCH (08:16)
[2018-09-14] MEDS: BUMETANIDE 1 MG INJ IV SCH ×2 (08:18→17:15)
--- NOTE | 2018-09-14 08:44 | NUR ---
WHEN PATIENT ADMITTED TELE YESTERDAY, REFUSED TOOK A PICTURE FOR SKIN ASSESS.
[2018-09-14] MEDS ORDERED: LOSARTAN 25 MG TAB PO SCH (09:00)
[2018-09-14] MEDS ORDERED: DOXAZOSIN 1 MG TAB PO ONE (11:30)
--- NOTE | 2018-09-14 11:44 | PN ---
Date/Time of Note Date/Time of Note DATE: 09/14/18 TIME: 11:37 Assessment/Plan VTE Prophylaxis Risk score (from Ns)>0 risk: 2 SCD applied (from Ns): No SCD contraindicated: low risk/ambulating Pharmacological prophylaxis: heparin Lines/Catheters IV Catheter Type (from Nrsg): Peripheral IV Assessment/Plan Problems: (1) CHF (congestive heart failure) Status: Acute Comment: Chest x-ray does not match with some of consult notes state. I do believe there is a little bit of volume overload by do not believe that that is actually the main issue here. I believe this is obesity hypoventilation syndrome with sequela Y of sleep apnea combined with his other medical issues. One were using the medications he is to be careful not to use medications that have a significant amount of sodium retention including hydralazine and nifedipine. The angiotensin II receptor lo is appropriate even with a renal dysfunction, as is pushing the beta-blockade and using an alpha lo. Qualifiers: Heart failure type: systolic Heart failure chronicity: acute Qualified Codes: I50.21 - Acute systolic (congestive) heart failure (2) Grade II diastolic dysfunction Status: Chronic Comment: Adjust medications and avoid drugs that induce salt retention (3) Acute kidney injury superimposed on chronic kidney disease Status: Acute Comment: Follow along closely. (4) Diabetes mellitus type 2 in obese Status: Chronic Comment: Adequate glycemic control (5) Obesity (BMI 30-39.9) Status: Chronic Comment: Counseled. He has multiple complications of this including the next which is very important (6) Sleep apnea in adult Status: Chronic Comment: I believe that this is a major issue for this gentleman. We will have to put him on BiPAP overnight and observe how he does with this. Please note his usage of cocaine is not helping this (7) Hyperuricemia Status: Chronic Comment: Noted. Treat later (8) Hyperlipidemia associated with type 2 diabetes mellitus Status: Chronic Comment: I do not believe his aches and pains or muscle weakness are reflection of the side effect to either the statins or the Zetia, as such continue this medication regimen (9) Essential hypertension Status: Chronic Comment: Adjust the regimen around to use less dihydropyridine calcium channel lo and slightly less hydralazine due to the sympathetic reaction he gets to induce hyper adrenergic state. (10) Cocaine abuse Status: Chronic Comment: Counseled Result Diagram: 09/14/18 0529 09/14/18 0529 Results 24hrs Laboratory Tests Test 09/13/18 17:09 09/13/18 18:29 09/13/18 20:48 09/13/18 22:15 Bedside Glucose 335 H 307 H Creatine Kinase 278 H 299 H Creatine Kinase 2.4 2.2 Index Creatinine Kinase MB 6.66 H 6.61 H (Mass) Troponin I 0.015 0.017 Test 09/14/18 05:29 09/14/18 08:05 White Blood Count 7.9 Red Blood Count 2.82 L Hemoglobin 7.5 L Hematocrit 24.0 L Mean Corpuscular 85.1 Volume Mean Corpuscular 26.6 L Hemoglobin Mean Corpuscular 31.3 L Hemoglobin Concent Red Cell 13.2 Distribution Width Platelet Count 210 Mean Platelet Volume 11.8 H Immature 0.600 H Granulocytes % Neutrophils % 64.3 Lymphocytes % 15.5 Monocytes % 10.7 Eosinophils % 8.3 H Basophils % 0.6 Nucleated Red Blood 0.0 Cells % Immature 0.050 H Granulocytes # Neutrophils # 5.1 Lymphocytes # 1.2 Monocytes # 0.9 Eosinophils # 0.7 H Basophils # 0.1 Nucleated Red Blood 0.0 Cells # Sodium Level 136 Potassium Level 4.7 Chloride Level 102 Carbon Dioxide Level 25 Anion Gap 9 Blood Urea Nitrogen 86 H Creatinine 3.66 H Est Glomerular 18 L Filtrat Rate mL/min Glucose Level 183 Calcium Level 8.7 Magnesium Level 2.4 Iron Level 55 Total Iron Binding 320 Capacity Percent Iron 17 L Saturation Triglycerides Level 137 Cholesterol Level 102 LDL Cholesterol, 56 Calculated HDL Cholesterol 19 L Cholesterol/HDL 5.3 Ratio Thyroid Stimulating 6.400 H Hormone (TSH) Bedside Glucose 169 Subjective 24 Hr Interval Summary Free Text/Dictation She reports she has had lower extremity edema been a bother for him since he was placed on nifedipine in 2017. He also notes snoring but has never been formally diagnosed with sleep apnea. At this time he complains of weakness and diffuse cramping. Please note that he been on statin drugs well before the current complaints of cramping Constitutional: no complaints Respiratory: no complaints (Feels better while on oxygen. Please note that he does snore reports he cannot sleep flat) Cardiovascular: no complaints Gastrointestinal: no complaints Genitourinary: no complaints Exam/Review of Systems Vital Signs Vitals Vital Signs Date Temp Pulse Resp B/P (MAP) Pulse Ox O2 O2 Flow FiO2 Time Delivery Rate 09/14/18 98.0 71 20 150/72 98 11:14 (98) 09/14/18 Nasal 3.0 00:30 Cannula Intake and Output 09/13/18 09/13/18 09/14/18 1515:00 23:00 07:00 IntakeIntake Total 760 ml 340 ml OutputOutput Total 650 ml 1600 ml BalanceBalance 110 ml -1260 ml Exam Constitutional: alert, oriented Neck: supple, non-tender Respiratory: clear to auscultation, normal air movement Cardiovascular: nl pulses, irregular rhythm Gastrointestinal: soft, nl liver, spleen, non-tender Medications Medications Current Medications Lorazepam (Ativan) 0.5 mg Q8H PRN PO ANXIETY; Start 09/13/18 at 12:30 Ondansetron HCl (Zofran Inj) 4 mg Q6H PRN IV NAUSEA AND/OR VOMITING; Start 09/13/18 at 12:30 Nitroglycerin (Nitroglycerin (Sl Tab) 0.4 Mg) 1 tab Q5M PRN SL CHEST PAIN; Start 09/13/18 at 12:30 Acetaminophen (Tylenol Tab) 650 mg Q6H PRN PO PAIN LEVEL 1-3 OR FEVER; Start 09/13/18 at 12:30 Morphine Sulfate (morphine) 2 mg Q4H PRN IV SEVERE PAIN LEVEL 7-10 Last administered on 09/14/18 06:22; Admin Dose 2 MG; Start 09/13/18 at 13:00 Zolpidem Tartrate (Ambien) 5 mg QHS PRN PO INSOMNIA Last administered on 09/14/18at 01:44; Admin Dose 5 MG; Start 09/13/18 at 12:30 Docusate Sodium (Colace) 100 mg Q12H PO Last administered on 09/13/18at 13:51; Admin Dose 100 MG; Start 09/13/18 at 12:30 Famotidine (Pepcid) 20 mg Q12 PO Last administered on 09/14/18 08:14; Admin Dose 20 MG; Start 09/13/18 at 21:00 Apixaban (Eliquis) 2.5 mg BID PO Last administered on 09/14/18 08:14; Admin D ose 2.5 MG; Start 09/13/18 at 21:00 Atorvastatin Calcium (Lipitor) 80 mg QHS PO Last administered on 09/13/18 20:51; Admin Dose 80 MG; Start 09/13/18 at 21:00 Cholecalciferol (Vitamin D) 2,000 unit DAILY PO Last administered on 09/14/18 08:16; Admin Dose 2,000 UNIT; Start 09/14/18 at 09:00 EZETIMIBE (Zetia) 10 mg HS PO Last administered on 09/13/18 20:51; Admin Dose 10 MG; Start 09/13/18 at 21:00 Hydralazine HCl (Apresoline) 100 mg TID PO Last administered on 09/14/18 08:15; Admin Dose 100 MG; Start 09/13/18 at 13:00 Insulin Glargine (Lantus) 30 units QHS SC Last administered on 09/13/18 20:52; Admin Dose 30 UNITS; Start 09/13/18 at 21:00 Isosorbide Mononitrate (Imdur) 30 mg DAILY PO Last administered on 09/14/18 08:14; Admin Dose 30 MG; Start 09/14/18 at 09:00 Spironolactone (Aldactone) 25 mg DAILY PO Last administered on 09/14/18 08:14; Admin Dose 25 MG; Start 09/14/18 at 09:00 Insulin Aspart (Novolog Insulin Pen) 10 unit WITH MEALS SC Last administered on 09/14/18 08:11; Admin Dose 10 UNIT; Start 09/13/18 at 18:00 Miscellaneous Information 1 ea NOTE XX ; Start 09/13/18 at 13:00 Glucose (Glutose) 15 gm Q15M PRN PO DECREASED GLUCOSE; Start 09/13/18 at 13:00 Glucose (Glutose) 22.5 gm Q15M PRN PO DECREASED GLUCOSE; Start 09/13/18 at 13:00 Dextrose (D50w Syringe) 25 ml Q15M PRN IV DECREASED GLUCOSE; Start 09/13/18 at 13:00 Dextrose (D50w Syringe) 50 ml Q15M PRN IV DECREASED GLUCOSE; Start 09/13/18 at 13:00 Glucagon (Glucagen) 1 mg Q15M PRN IM DECREASED GLUCOSE; Start 09/13/18 at 13:00 Glucose (Glutose) 15 gm Q15M PRN BUCCAL DECREASED GLUCOSE; Start 09/13/18 at 13:00 Bumetanide (Bumex) 2 mg BID DIURETICS IV Last administered on 09/14/18at 08:18; Admin Dose 2 MG; Start 09/14/18 at 09:00 Albumin Human 100 ml @ 100 mls/hr Q8 IV Last administered on 09/14/18at 06:15; Admin Dose 100 MLS/HR; Start 09/13/18 at 14:00; Stop 09/15/18 at 06:59 Acetaminophen/ Hydrocodone Bitart ([place] (5/325)) 1 tab Q4H PRN PO MODERATE PAIN LEVEL 4-6; Start 09/13/18 at 13:00 Epoetin [place] (Epogen (Non Esrd/Non Oncology)) 6,000 units TuThSa@17 SC ; Start 09/14/18 at 17:00 Sevelamer Carbonate (Renvela) 800 mg WITH MEALS PO Last administered on 09/14/18at 08:15; Admin Dose 800 MG; Start 09/14/18 at 08:00 Carvedilol (Coreg) 6.25 mg BID PO ; Start 09/14/18 at 21:00 Nifedipine (Procardia Xl) 60 mg QAM PO ; Start 09/15/18 at 09:00 Doxazosin Mesylate (Cardura) 2 mg HS PO ; Start 09/14/18 at 21:00 SUSANNA MURPHY MD Sep 14, 2018 11:44
--- NOTE | 2018-09-14 12:43 | NUR ---
RESIDUAL URINE VOL WAS >37ML,AFTER VOIDING.
--- NOTE | 2018-09-14 12:56 | CONS ---
Date/Time of Note Date/Time of Note DATE: 09/14/18 TIME: 12:56 Assessment/Plan Assessment/Plan Assessment/Plan CHF Diast - acute on chronic - renal cause likely - will monitor concurrently with renal team # [id number] Result Diagram: 09/14/18 0529 09/14/18 0529 Results 24hrs Laboratory Tests Test 09/13/18 17:09 09/13/18 18:29 09/13/18 20:48 09/13/18 22:15 Bedside Glucose 335 H 307 H Creatine Kinase 278 H 299 H Creatine Kinase 2.4 2.2 Index Creatinine Kinase MB 6.66 H 6.61 H (Mass) Troponin I 0.015 0.017 Test 09/14/18 05:29 09/14/18 08:05 09/14/18 11:48 White Blood Count 7.9 Red Blood Count 2.82 L Hemoglobin 7.5 L Hematocrit 24.0 L Mean Corpuscular 85.1 Volume Mean Corpuscular 26.6 L Hemoglobin Mean Corpuscular 31.3 L Hemoglobin Concent Red Cell 13.2 Distribution Width Platelet Count 210 Mean Platelet Volume 11.8 H Immature 0.600 H Granulocytes % Neutrophils % 64.3 Lymphocytes % 15.5 Monocytes % 10.7 Eosinophils % 8.3 H Basophils % 0.6 Nucleated Red Blood 0.0 Cells % Immature 0.050 H Granulocytes # Neutrophils # 5.1 Lymphocytes # 1.2 Monocytes # 0.9 Eosinophils # 0.7 H Basophils # 0.1 Nucleated Red Blood 0.0 Cells # Sodium Level 136 Potassium Level 4.7 Chloride Level 102 Carbon Dioxide Level 25 Anion Gap 9 Blood Urea Nitrogen 86 H Creatinine 3.66 H Est Glomerular 18 L Filtrat Rate mL/min Glucose Level 183 Calcium Level 8.7 Magnesium Level 2.4 Iron Level 55 Total Iron Binding 320 Capacity Percent Iron 17 L Saturation Triglycerides Level 137 Cholesterol Level 102 LDL Cholesterol, 56 Calculated HDL Cholesterol 19 L Cholesterol/HDL 5.3 Ratio Thyroid Stimulating 6.400 H Hormone (TSH) Bedside Glucose 169 95 Consultation Date/Type/Reason Admit Date/Time Sep 13, 2018 at 08:45 Initial Consult Date 09/13/18 Requesting Provider: LEXII REED Exam/Review of Systems Vital Signs Vitals Vital Signs Date Temp Pulse Resp B/P (MAP) Pulse Ox O2 O2 Flow FiO2 Time Delivery Rate 09/14/18 82 12:00 09/14/18 98.0 20 150/72 98 11:14 (98) 09/14/18 Nasal 3.0 00:30 Cannula Intake and Output 09/13/18 09/13/18 09/14/18 1414:59 22:59 06:59 IntakeIntake Total 760 ml 340 ml OutputOutput Total 650 ml 1600 ml BalanceBalance 110 ml -1260 ml Medications Medications Current Medications Lorazepam (Ativan) 0.5 mg Q8H PRN PO ANXIETY; Start 09/13/18 at 12:30 Ondansetron HCl (Zofran Inj) 4 mg Q6H PRN IV NAUSEA AND/OR VOMITING; Start 09/13/18 at 12:30 Nitroglycerin (Nitroglycerin (Sl Tab) 0.4 Mg) 1 tab Q5M PRN SL CHEST PAIN; Start 09/13/18 at 12:30 Acetaminophen (Tylenol Tab) 650 mg Q6H PRN PO PAIN LEVEL 1-3 OR FEVER; Start 09/13/18 at 12:30 Morphine Sulfate (morphine) 2 mg Q4H PRN IV SEVERE PAIN LEVEL 7-10 Last administered on 09/14/18at 06:22; Admin Dose 2 MG; Start 09/13/18 at 13:00 Zolpidem Tartrate (Ambien) 5 mg QHS PRN PO INSOMNIA Last administered on 09/14/18at 01:44; Admin Dose 5 MG; Start 09/13/18 at 12:30 Docusate Sodium (Colace) 100 mg Q12H PO Last administered on 09/14/18at 11:43; Admin Dose 100 MG; Start 09/13/18 at 12:30 Famotidine (Pepcid) 20 mg Q12 PO Last administered on 09/14/18at 08:14; Admin Dose 20 MG; Start 09/13/18 at 21:00 Apixaban (Eliquis) 2.5 mg BID PO Last administered on 09/14/18at 08:14; Admin Dose 2.5 MG; Start 09/13/18 at 21:00 Atorvastatin Calcium (Lipitor) 80 mg QHS PO Last administered on 09/13/18at 20:51; Admin Dose 80 MG; Start 09/13/18 at 21:00 Cholecalciferol (Vitamin D) 2,000 unit DAILY PO Last administered on 09/14/18 08:16; Admin Dose 2,000 UNIT; Start 09/14/18 at 09:00 EZETIMIBE (Zetia) 10 mg HS PO Last administered on 09/13/18at 20:51; Admin Dose 10 MG; Start 09/13/18 at 21:00 Insulin Glargine (Lantus) 30 units QHS SC Last administered on 09/13/18 20:52; Admin Dose 30 UNITS; Start 09/13/18 at 21:00 Isosorbide Mononitrate (Imdur) 30 mg DAILY PO Last administered on 09/14/18 08:14; Admin Dose 30 MG; Start 09/14/18 at 09:00 Spironolactone (Aldactone) 25 mg DAILY PO Last administered on 09/14/18 08:14; Admin Dose 25 MG; Start 09/14/18 at 09:00 Insulin Aspart (Novolog Insulin Pen) 10 unit WITH MEALS SC Last administered on 09/14/18 11:49; Admin Dose 10 UNIT; Start 09/13/18 at 18:00 Miscellaneous Information 1 ea NOTE XX ; Start 09/13/18 at 13:00 Glucose (Glutose) 15 gm Q15M PRN PO DECREASED GLUCOSE; Start 09/13/18 at 13:00 Glucose (Glutose) 22.5 gm Q15M PRN PO DECREASED GLUCOSE; Start 09/13/18 at 13:00 Dextrose (D50w Syringe) 25 ml Q15M PRN IV DECREASED GLUCOSE; Start 09/13/18 at 13:00 Dextrose (D50w Syringe) 50 ml Q15M PRN IV DECREASED GLUCOSE; Start 09/13/18 at 13:00 Glucagon (Glucagen) 1 mg Q15M PRN IM DECREASED GLUCOSE; Start 09/13/18 at 13:00 Glucose (Glutose) 15 gm Q15M PRN BUCCAL DECREASED GLUCOSE; Start 09/13/18 at 13:00 Bumetanide (Bumex) 2 mg BID DIURETICS IV Last administered on 09/14/18 08:18; Admin Dose 2 MG; Start 09/14/18 at 09:00 Albumin Human 100 ml @ 100 mls/hr Q8 IV Last administered on 09/14/18 06:15; Admin Dose 100 MLS/HR; Start 09/13/18 at 14:00; Stop 09/15/18 at 06:59 Acetaminophen/ Hydrocodone Bitart ([place] (5/325)) 1 tab Q4H PRN PO MODERATE PAIN LEVEL 4-6; Start 09/13/18 at 13:00 Epoetin [place] (Epogen (Non Esrd/Non Oncology)) 6,000 units TuThSa@17 SC ; Start 09/14/18 at 17:00 Sevelamer Carbonate (Renvela) 800 mg WITH MEALS PO Last administered on 09/14/18at 11:44; Admin Dose 800 MG; Start 09/14/18 at 08:00 Carvedilol (Coreg) 6.25 mg BID PO ; Start 09/14/18 at 21:00 Nifedipine (Procardia Xl) 60 mg QAM PO ; Start 09/15/18 at 09:00 Doxazosin Mesylate (Cardura) 2 mg HS PO ; Start 09/14/18 at 21:00 Hydralazine HCl (Apresoline) 100 mg BID PO ; Start 09/14/18 at 21:00 Losartan Potassium (Cozaar) 25 mg QHS PO ; Start 09/14/18 at 21:00 DELIA BILLY MD Sep 14, 2018 12:56
--- NOTE | 2018-09-14 15:50 | NUR ---
PATIENT'S BP:162/79,INFORMED TO DR MURPHY.
[2018-09-14] MEDS: EPOETIN 3000 UNITS/ML (NON ESRD/NON ONCOLOGY) SC SCH (17:00)
--- NOTE | 2018-09-14 18:50 | NUR ---
AWAKE AND ALERT MALE PATIENT. SYSTOLIC BLOOD PRESSURE WAS 167-162 AND MD AWARE OF IT. ON BUMEX IV FOR CHF AND NO SOB ON DAY DUTY. WILL GET BIPAP DURING SLEEPING ORDER BY DR MURPHY.BLOOD SUGAR CONTROLLING BY INSULIN AND CHRONIC PAIN UNDER CONTROL.ENCOURAGING PATIENT AMBULATE AND PATIENT DID IT.MONITORING PATIENT.
--- NOTE | 2018-09-14 19:29 | CONS ---
DATE OF ADMISSION: 09/13/2018 DATE OF CONSULTATION: 09/14/2018 TYPE OF CONSULTATION: Cardiology. REFERRING PHYSICIAN: Tito Bowers MD REASON FOR EVALUATION: CHF exacerbation, abnormal EKG and hypertension. HISTORY OF PRESENT ILLNESS: Mr. Bergeron is a 43-year-old gentleman with history of hypertensi on, dyslipidemia, history of renal insufficiency, history of prior admissions with congestive heart f ailure exacerbation, history of paroxysmal atrial fibrillation on Eliquis, history of prior pleural a nd episode of sleep apnea who comes to the hospital now for his lower extremity edema. The patient w as in sinus rhythm on presentation. He has a prior history of paroxysmal atrial fibrillation for whi ch he was being treated with Eliquis at adjusted dose which is appropriate. The patient is clearly i n heart failure likely related to his renal discomfort. For now, gentle diuresis is expected. The p atient is putting out urine and he feels better overall. We will continue to monitor concurrently wi th the renal team. PAST MEDICAL HISTORY: Hypertension, dyslipidemia, history of heart failure, history of hypertension, history of dyslipidemia, history of diastolic dysfunction, history of mild aortic regurgitation. ALLERGIES: IBUPROFEN. SOCIAL HISTORY: The patient smokes, does not drink, does not use drugs. FAMILY HISTORY: Negative for sudden cardiac or history of diabetes in the family. MEDICATIONS: 1. Nifedipine 60 mg p.o. once a day. 2. Coreg 6.25 mg p.o. b.i.d. 3. Hydralazine. 4. Cardura. 5. Neupogen. 6. Calcitriol. 7. Spironolactone. 8. Eliquis 2.5 mg. 9. Famotidine. 10. Zetia. 11. Insulin on a sliding scale. REVIEW OF SYSTEMS: CONSTITUTIONAL: No fevers, no chills, no recent weight gain. Lower extremity edema. HEENT: No changes in vision or hearing. CARDIAC: Chest pain reported now. RESPIRATORY: Short of breath, acute reversed. GASTROINTESTINAL: No nausea, vomiting, diarrhea or vomiting. GENITOURINARY: No dysuria or hematuria. NEUROLOGIC: No focal deficits. HEMATOLOGIC: No easy bruising. PSYCHIATRIC: No history of psychiatric illness. PHYSICAL EXAMINATION: VITAL SIGNS: Temperature is 98.0, heart rate is 82, blood pressure is 150/72. GENERAL: He is a well-nourished gentleman in no acute distress, alert and oriented x3, aware of his condition. HEAD: Normocephalic, atraumatic. Extraocular movements intact. NECK: Supple. JVD 6 to 7 cm. There is no lymphadenopathy. HEART: Regular, soft holosystolic murmur. PMI is nondisplaced. ABDOMEN: Distended. Bowel sounds are present. There is no hepatosplenomegaly. GENITOURINARY: Grossly intact. EXTREMITIES: Show no clubbing or cyanosis. There is 2+ edema. DIAGNOSTIC DATA: ECG reveals sinus rhythm with some nonspecific ST-T changes. LABORATORY DATA: Shows white blood cell count is 7.9, hemoglobin is 7.5, platelets 210. His INR is 1.3. Sodium 136, potassium 4.7, BUN is 3.6. ASSESSMENT AND PLAN: 1. Congestive heart failure. The patient has heart failure exacerbation, diastolic, acute on chroni c. The patient is ____. Diuresis is expected 2. Hypertension. Blood pressure on the high side. Continue to treat medically as tolerated. We wi ll ____ renal team. 3. Atrial fibrillation, paroxysmal. The patient is in sinus rhythm now. 4. Hypercoagulable state. The patient is on Eliquis and dose adjusted to the rate which is appropri ate. 5. History of pleural effusion. Defer to pulmonary team. I would like to thank Dr. Bowers for referring this patient for my evaluation. Dictated By: DELIA BILLY MD ML/NTS Conf#: [id number] DID#: [id number] CC: LEXII REED MD;*EndCC*
[2018-09-14] MEDS: EZETIMIBE 10 MG TAB PO SCH (20:21)
[2018-09-14] MEDS: ATORVASTATIN 80 MG TAB PO SCH (20:22)
[2018-09-14] MEDS: LOSARTAN 25 MG TAB PO SCH (20:22)
[2018-09-14] MEDS: INSULIN GLARGINE [LANTus] (100 UNITS/ML) SYG SC SCH (20:32)
[2018-09-14] MEDS ORDERED: DOXAZOSIN 2 MG TAB PO SCH (21:00)
--- NOTE | 2018-09-14 21:44 | CONS ---
Date/Time of Note Date/Time of Note DATE: 09/14/18 TIME: 21:41 Assessment/Plan Assessment/Plan Assessment/Plan 1.Acute kidney injury on CKD III due to hemodynamics from CHF 2. acute CHF exacerbation, acute on chronic, diastolic, with fluid overload and pulmonary congestion with anasarca 3. 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 H/o HTN 5. LE edema/anasarca 6. HL 7. Anemia of chronic kidney disease Plan: BUN/Cr 86/3.66- s/p Bumex drip yesterday, Currenlty on Bumex 2mg iV BID, will change it to 1mg IV BID Albumin 25% 100ml IV Q 8 hr x 6 doses, on epogen 6000 units SQ TTS for anemia Continue Renvela 800mg TID for hyperphosphatemia - monitor electrolytes and replace aggressively Renal US on previosu visit- unremarkable, Kidney size R 12.0, left 11.2 cm, normal echogenicity on last visit Nifedipine 60mg BID , Coreg 6.25mg PO BID, Hydralazine 100mg PO TID and Spironolactone 25 mg po daily Stop Losartan for now due to acute on chronic renal failure [facility] follow up Result Diagram: 09/14/18 0529 09/14/1829 Results 24hrs Laboratory Tests Test 09/13/18 22:15 09/14/18 05:29 09/14/18 08:05 09/14/18 11:48 Creatine Kinase 299 H Creatine Kinase 2.2 Index Creatinine Kinase MB 6.61 H (Mass) Troponin I 0.017 White Blood Count 7.9 Red Blood Count 2.82 L Hemoglobin 7.5 L Hematocrit 24.0 L Mean Corpuscular 85.1 Volume Mean Corpuscular 26.6 L Hemoglobin Mean Corpuscular 31.3 L Hemoglobin Concent Red Cell 13.2 Distribution Width Platelet Count 210 Mean Platelet Volume 11.8 H Immature 0.600 H Granulocytes % Neutrophils % 64.3 Lymphocytes % 15.5 Monocytes % 10.7 Eosinophils % 8.3 H Basophils % 0.6 Nucleated Red Blood 0.0 Cells % Immature 0.050 H Granulocytes # Neutrophils # 5.1 Lymphocytes # 1.2 Monocytes # 0.9 Eosinophils # 0.7 H Basophils # 0.1 Nucleated Red Blood 0.0 Cells # Sodium Level 136 Potassium Level 4.7 Chloride Level 102 Carbon Dioxide Level 25 Anion Gap 9 Blood Urea Nitrogen 86 H Creatinine 3.66 H Est Glomerular 18 L Filtrat Rate mL/min Glucose Level 183 Calcium Level 8.7 Magnesium Level 2.4 Iron Level 55 Total Iron Binding 320 Capacity Percent Iron 17 L Saturation Triglycerides Level 137 Cholesterol Level 102 LDL Cholesterol, 56 Calculated HDL Cholesterol 19 L Cholesterol/HDL 5.3 Ratio Thyroid Stimulating 6.400 H Hormone (TSH) Bedside Glucose 169 95 Test 09/14/18 17:17 09/14/18 20:19 Bedside Glucose 156 167 Consultation Date/Type/Reason Admit Date/Time Sep 13, 2018 at 08:45 Initial Consult Date 09/13/18 Type of Consult NEPHROLOGY Requesting Provider: LEXII REED 24 HR Interval Summary Free Text/Dictation still has LE edema and anasarca, Bp stable Exam/Review of Systems Vital Signs Vitals Vital Signs Date Temp Pulse Resp B/P (MAP) Pulse Ox O2 O2 Flow FiO2 Time Delivery Rate 09/14/18 98.4 77 18 132/67 96 20:01 (88) 09/14/18 Nasal 3.0 00:30 Cannula Intake and Output 09/13/18 09/13/18 09/14/18 1515:00 23:00 07:00 IntakeIntake Total 760 ml 340 ml OutputOutput Total 650 ml 1600 ml BalanceBalance 110 ml -1260 ml Exam Psych: no complaints Respiratory: Bibasilar rales, no wheezing Cardiovascular: regular rate and rhythm, nl pulses Gastrointestinal: soft, distended Musculoskeletal: muscle tone, muscle weakness, swelling Extremities: normal pulses, 3+ pitting edema upto thigh, Abdominal wall edema Neurological: SHANK FAKER II-XII intact, nl mental status, nl speech, nl strength Medications Medications Current Medications Lorazepam (Ativan) 0.5 mg Q8H PRN PO ANXIETY; Start 09/13/18 at 12:30 Ondansetron HCl (Zofran Inj) 4 mg Q6H PRN IV NAUSEA AND/OR VOMITING; Start 09/13/18 at 12:30 Nitroglycerin (Nitroglycerin (Sl Tab) 0.4 Mg) 1 tab Q5M PRN SL CHEST PAIN; Start 09/13/18 at 12:30 Acetaminophen (Tylenol Tab) 650 mg Q6H PRN PO PAIN LEVEL 1-3 OR FEVER; Start 09/13/18 at 12:30 Morphine Sulfate (morphine) 2 mg Q4H PRN IV SEVERE PAIN LEVEL 7-10 Last administered on 09/14/18 18:29; Admin Dose 2 MG; Start 09/13/18 at 13:00 Zolpidem Tartrate (Ambien) 5 mg QHS PRN PO INSOMNIA Last administered on 09/14/18 01:44; Admin Dose 5 MG; Start 09/13/18 at 12:30 Docusate Sodium (Colace) 100 mg Q12H PO Last administered on 09/14/18 11:43; Admin Dose 100 MG; Start 09/13/18 at 12:30 Famotidine (Pepcid) 20 mg Q12 PO Last administered on 09/14/18 20:22; Admin Dose 20 MG; Start 09/13/18 at 21:00 Apixaban (Eliquis) 2.5 mg BID PO Last administered on 09/14/18 20:22; Admin Dose 2.5 MG; Start 09/13/18 at 21:00 Atorvastatin Calcium (Lipitor) 80 mg QHS PO Last administered on 09/14/18 20:22; Admin Dose 80 MG; Start 09/13/18 at 21:00 Cholecalciferol (Vitamin D) 2,000 unit DAILY PO Last administered on 09/14/18 08:16; Admin Dose 2,000 UNIT; Start 09/14/18 at 09:00 EZETIMIBE (Zetia) 10 mg HS PO Last administered on 09/14/18 20:21; Admin Dose 10 MG; Start 09/13/18 at 21:00 Insulin Glargine (Lantus) 30 units QHS SC Last administered on 09/14/18 20:32; Admin Dose 30 UNITS; Start 09/13/18 at 21:00 Isosorbide Mononitrate (Imdur) 30 mg DAILY PO Last administered on 09/14/18 08:14; Admin Dose 30 MG; Start 09/14/18 at 09:00 Spironolactone (Aldactone) 25 mg DAILY PO Last administered on 09/14/18 08:14; Admin Dose 25 MG; Start 09/14/18 at 09:00 Insulin Aspart (Novolog Insulin Pen) 10 unit WITH MEALS SC Last administered on 1/19/19at 17:17; Admin Dose 10 UNIT; Start 09/13/18 at 18:00 Miscellaneous Information 1 ea NOTE XX ; Start 09/13/18 at 13:00 Glucose (Glutose) 15 gm Q15M PRN PO DECREASED GLUCOSE; Start 09/13/18 at 13:00 Glucose (Glutose) 22.5 gm Q15M PRN PO DECREASED GLUCOSE; Start 09/13/18 at 13:00 Dextrose (D50w Syringe) 25 ml Q15M PRN IV DECREASED GLUCOSE; Start 09/13/18 at 13:00 Dextrose (D50w Syringe) 50 ml Q15M PRN IV DECREASED GLUCOSE; Start 09/13/18 at 13:00 Glucagon (Glucagen) 1 mg Q15M PRN IM DECREASED GLUCOSE; Start 09/13/18 at 13:00 Glucose (Glutose) 15 gm Q15M PRN BUCCAL DECREASED GLUCOSE; Start 09/13/18 at 13:00 Bumetanide (Bumex) 2 mg BID DIURETICS IV Last administered on 09/14/18at 17:15; Admin Dose 2 MG; Start 09/14/18 at 09:00 Albumin Human 100 ml @ 100 mls/hr Q8 IV Last administered on 09/14/18at 15:38; Admin Dose 100 MLS/HR; Start 09/13/18 at 14:00; Stop 09/15/18 at 06:59 Acetaminophen/ Hydrocodone Bitart ([place] (5/325)) 1 tab Q4H PRN PO MODERATE PAIN LEVEL 4-6; Start 09/13/18 at 13:00 Epoetin [place] (Epogen (Non Esrd/Non Oncology)) 6,000 units TuThSa@17 SC Last administered on 09/14/18at 17:00; Admin Dose 6,000 UNITS; Start 09/14/18 at 17:00 Sevelamer Carbonate (Renvela) 800 mg WITH MEALS PO Last administered on 09/14/18at 17:15; Admin Dose 800 MG; Start 09/14/18 at 08:00 Carvedilol (Coreg) 6.25 mg BID PO Last administered on 09/14/18at 20:22; Admin Dose 6.25 MG; Start 09/14/18 at 21:00 Nifedipine (Procardia Xl) 60 mg QAM PO ; Start 09/15/18 at 09:00 Doxazosin Mesylate (Cardura) 2 mg HS PO Last administered on 09/14/18at 20:23; Admin Dose 2 MG; Start 09/14/18 at 21:00 Hydralazine HCl (Apresoline) 100 mg BID PO Last administered on 09/14/18at 20:21; Admin Dose 100 MG; Start 09/14/18 at 21:00 Losartan Potassium (Cozaar) 25 mg QHS PO Last administered on 09/14/18at 20:22; Admin Dose 25 MG; Start 09/14/18 at 21:00 LOLIS CROWDER MD Sep 14, 2018 21:44
[2018-09-15] VITALS (13 sets, daily range): BP systolic 152–178; BP diastolic 72–81; PULSE 67–94; RESP 17–19
[2018-09-15] MEDS: DOCUSATE SODIUM 100 MG CAP PO SCH ×3 (00:05→23:31)
[2018-09-15] MEDS: morphine 4 MG/ML VIAL IV PRN ×2 (04:44→18:23)
[2018-09-15] MEDS: BUMETANIDE 1 MG INJ IV SCH (05:06)
[2018-09-15] MEDS: ALBUMIN HUMAN 25% 100 ML IV SCH (05:07)
[2018-09-15] MEDS: INSULIN ASPART [NOVOLOG] 3 ML PEN SC SCH ×3 (07:31→16:56)
[2018-09-15] MEDS: SEVELAMER CARBONATE 800 MG TABLET PO SCH ×3 (07:34→16:56)
--- NOTE | 2018-09-15 07:34 | NUR ---
RN END OF SHIFT NOTE PATIENT ALERT AND ORIENTED X 4, PAIN CONTROLLED WITH MORPHINE 2 MG IVP Q 4 HOURS PRN X 2 ON MY SHIFT. PATIENT VOIDED X 4 TIMES WITH POST VOID RESIDUAL OF 0 ML ALL THE TIME. BED IN THE LOWEST POSITION WITH BRAKES ENGAGED, HOURLY ROUNDING AND BED ALARM IN PLACE. ENDORSED TO DAY SHIFT RN.
--- NOTE | 2018-09-15 07:46 | NUR ---
Nurses notes: Post void bladder scan done 0 residual.
[2018-09-15] MEDS: APIXABAN 5 MG TABLET PO SCH ×2 (08:04→20:31)
[2018-09-15] MEDS: SPIRONOLACTONE 25 MG TAB PO SCH (08:04)
[2018-09-15] MEDS: ISOSORBIDE MONONITRATE(SR)30 MG TAB PO SCH (08:04)
[2018-09-15] MEDS: FAMOTIDINE 20 MG TAB PO SCH ×2 (08:04→20:31)
[2018-09-15] MEDS: CHOLECALCIFEROL 1,000 UNIT TAB PO SCH (08:05)
[2018-09-15] MEDS ORDERED: NIFEdipine (XL) 60 MG TAB PO SCH (09:00)
--- NOTE | 2018-09-15 09:23 | PN ---
Date/Time of Note Date/Time of Note DATE: 09/15/18 TIME: 09:13 Assessment/Plan VTE Prophylaxis Risk score (from [facility] [place])>0 risk: 3 SCD applied (from [facility] [place]): No SCD contraindicated: low risk/ambulating Pharmacological prophylaxis: heparin Lines/Catheters IV Catheter Type [facility]from [facility] [place] Urinary Cath still in place: No Assessment/Plan Problems: (1) Grade II diastolic dysfunction Status: Chronic Comment: He is doing better in terms of blood pressure with the adjustments in the medications. Please note that the postvoid residual has gone to 0 with the addition of the alpha blockade and we have better blood pressure control. Based on his labs and his symptomatology believe we have actually over diuresed him. See below (2) Essential hypertension Status: Chronic Comment: Better control using the current regimen. Please note he has diastoli c heart failure not systolic heart failure however were going ahead and using combination of hydralazine nitrates beta-blockade and angiotensin II receptor. In addition he has the alpha-lo and we can now stop the dihydropyridine class calcium channel lo which is causing fluid retention and some of the issues in combination with his renal insufficiency. (3) Acute kidney injury superimposed on chronic kidney disease Status: Acute Comment: At this point is a little bit over diuresed. This is not due to angiotensin II receptor lo therapy. (4) Diabetes mellitus type 2 in obese Status: Chronic Comment: Adequate control at the present time (5) Obesity (BMI 30-39.9) Status: Chronic Comment: Calorie restriction diet (6) Sleep apnea in adult Status: Chronic Comment: Nocturnal BiPAP (7) Paroxysmal atrial fibrillation Status: Acute Comment: Presently controlled, please see the echo measurements of the left atrium (8) Left atrial enlargement Status: Chronic Comment: Noted. (9) Hyperuricemia Status: Chronic Comment: Noted. Treated at a later date (10) Hyperlipidemia associated with type 2 diabetes mellitus Status: Chronic Comment: Adequate control Result Diagram: 09/15/18 0520 09/15/18 0520 Results 24hrs Laboratory Tests Test 09/14/18 11:48 09/14/18 17:17 09/14/18 20:19 09/15/18 02:41 Bedside Glucose 95 156 167 165 Test 09/15/18 05:20 09/15/18 07:28 White Blood Count 6.4 Red Blood Count 2.66 L Hemoglobin 7.1 L Hematocrit 22.5 L Mean Corpuscular 84.6 Volume Mean Corpuscular 26.7 L Hemoglobin Mean Corpuscular 31.6 L Hemoglobin Concent Red Cell 13.1 Distribution Width Platelet Count 198 Mean Platelet Volume 11.2 H Immature 0.500 H Granulocytes % Neutrophils % 65.7 Lymphocytes % 15.1 Monocytes % 10.2 Eosinophils % 8.0 H Basophils % 0.5 Nucleated Red Blood 0.0 Cells % Immature 0.030 Granulocytes # Neutrophils # 4.2 Lymphocytes # 1.0 Monocytes # 0.7 Eosinophils # 0.5 Basophils # 0.0 Nucleated Red Blood 0.0 Cells # Sodium Level 137 Potassium Level 4.5 Chloride Level 100 Carbon Dioxide Level 25 Anion Gap 12 Blood Urea Nitrogen 88 H Creatinine 3.72 H Est Glomerular 18 L Filtrat Rate mL/min Glucose Level 91 # Calcium Level 9.1 Phosphorus Level 6.3 H Magnesium Level 2.2 Total Bilirubin 0.3 Direct Bilirubin 0.00 Indirect Bilirubin 0.3 Aspartate Amino 23 Transf (AST/SGOT) Alanine 26 Aminotransferase (AL T/SGPT) Alkaline Phosphatase 65 Total Protein 6.7 Albumin 4.1 Globulin 2.60 Albumin/Globulin 1.57 Ratio Bedside Glucose 79 Subjective 24 Hr Interval Summary Free Text/Dictation Patient reports his edema is less and is able to bend his legs more but he is still feeling quite tired. Constitutional: no complaints Respiratory: no complaints Cardiovascular: no complaints Gastrointestinal: no complaints Genitourinary: no complaints Exam/Review of Systems Vital Signs Vitals Vital Signs Date Temp Pulse Resp B/P (MAP) Pulse Ox O2 O2 Flow FiO2 Time Delivery Rate 09/15/18 76 08:28 09/15/18 98.2 18 157/81 98 07:18 (106) 09/15/18 30 01:50 09/14/18 Nasal 3.0 00:30 Cannula Intake and Output 09/14/18 09/14/18 09/15/18 1515:00 23:00 07:00 IntakeIntake Total 650 ml 250 ml OutputOutput Total 2050 ml 1590 ml BalanceBalance -1400 ml -1340 ml Exam Constitutional: alert, oriented Respiratory: clear to auscultation, normal air movement Cardiovascular: regular rate and rhythm, nl pulses Extremities: edema (1+) Neurological: ELECTRICIAN SUBSTATION SUPERVISOR II-XII intact, nl mental status, nl speech, nl strength Medications Medications Current Medications Lorazepam (Ativan) 0.5 mg Q8H PRN PO ANXIETY; Start 09/13/18 at 12:30 Ondansetron HCl (Zofran Inj) 4 mg Q6H PRN IV NAUSEA AND/OR VOMITING; Start 09/13/18 at 12:30 Nitroglycerin (Nitroglycerin (Sl Tab) 0.4 Mg) 1 tab Q5M PRN SL CHEST PAIN; Start 09/13/18 at 12:30 Acetaminophen (Tylenol Tab) 650 mg Q6H PRN PO PAIN LEVEL 1-3 OR FEVER; Start 09/13/18 at 12:30 Morphine Sulfate (morphine) 2 mg Q4H PRN IV SEVERE PAIN LEVEL 7-10 Last administered on 09/15/18at 04:44; Admin Dose 2 MG; Start 09/13/18 at 13:00 Zolpidem Tartrate (Ambien) 5 mg QHS PRN PO INSOMNIA Last administered on 09/14/18 22:38; Admin Dose 5 MG; Start 09/13/18 at 12:30 Docusate Sodium (Colace) 100 mg Q12H PO Last administered on 09/15/18 00:05; Admin Dose 100 MG; Start 09/13/18 at 12:30 Famotidine (Pepcid) 20 mg Q12 PO Last administered on 09/15/18 08:04; Admin Dose 20 MG; Start 09/13/18 at 21:00 Apixaban (Eliquis) 2.5 mg BID PO Last administered on 09/15/18 08:04; Admin D ose 2.5 MG; Start 09/13/18 at 21:00 Atorvastatin Calcium (Lipitor) 80 mg QHS PO Last administered on 09/14/18 20:22; Admin Dose 80 MG; Start 09/13/18 at 21:00 Cholecalciferol (Vitamin D) 2,000 unit DAILY PO Last administered on 09/15/18 08:05; Admin Dose 2,000 UNIT; Start 09/14/18 at 09:00 EZETIMIBE (Zetia) 10 mg HS PO Last administered on 09/14/18 20:21; Admin Dose 10 MG; Start 09/13/18 at 21:00 Insulin Glargine (Lantus) 30 units QHS SC Last administered on 09/14/18at 20:32; Admin Dose 30 UNITS; Start 09/13/18 at 21:00 Isosorbide Mononitrate (Imdur) 30 mg DAILY PO Last administered on 09/15/18at 08:04; Admin Dose 30 MG; Start 09/14/18 at 09:00 Spironolactone (Aldactone) 25 mg DAILY PO Last administered on 09/15/18at 08:04; Admin Dose 25 MG; Start 09/14/18 at 09:00 Insulin Aspart (Novolog Insulin Pen) 10 unit WITH MEALS SC Last administered on 09/14/18at 17:17; Admin Dose 10 UNIT; Start 09/13/18 at 18:00 Miscellaneous Information 1 ea NOTE XX ; Start 09/13/18 at 13:00 Glucose (Glutose) 15 gm Q15M PRN PO DECREASED GLUCOSE; Start 09/13/18 at 13:00 Glucose (Glutose) 22.5 gm Q15M PRN PO DECREASED GLUCOSE; Start 09/13/18 at 13:00 Dextrose (D50w Syringe) 25 ml Q15M PRN IV DECREASED GLUCOSE; Start 09/13/18 at 13:00 Dextrose (D50w Syringe) 50 ml Q15M PRN IV DECREASED GLUCOSE; Start 09/13/18 at 13:00 Glucagon (Glucagen) 1 mg Q15M PRN IM DECREASED GLUCOSE; Start 09/13/18 at 13:00 Glucose (Glutose) 15 gm Q15M PRN BUCCAL DECREASED GLUCOSE; Start 09/13/18 at 13:00 Acetaminophen/ Hydrocodone Bitart ([place] (5/325)) 1 tab Q4H PRN PO MODERATE PAIN LEVEL 4-6; Start 09/13/18 at 13:00 Epoetin [place] (Epogen (Non Esrd/Non Oncology)) 6,000 units TuThSa@17 SC Last administered on 09/14/18at 17:00; Admin Dose 6,000 UNITS; Start 09/14/18 at 17:00 Sevelamer Carbonate (Renvela) 800 mg WITH MEALS PO Last administered on 09/15/18at 07:34; Admin Dose 800 MG; Start 09/14/18 at 08:00 Carvedilol (Coreg) 6.25 mg BID PO Last administered on 09/15/18at 08:04; Admin Dose 6.25 MG; Start 09/14/18 at 21:00 Nifedipine (Procardia Xl) 60 mg QAM PO Last administered on 09/15/18 08:06; Admin Dose 60 MG; Start 09/15/18 at 09:00 Doxazosin Mesylate (Cardura) 2 mg HS PO Last administered on 09/14/18at 20:23; Admin Dose 2 MG; Start 09/14/18 at 21:00 Hydralazine HCl (Apresoline) 100 mg BID PO Last administered on 09/15/18at 08:05; Admin Dose 100 MG; Start 09/14/18 at 21:00 Losartan Potassium (Cozaar) 25 mg QHS PO Last administered on 09/14/18 20:22; Admin Dose 25 MG; Start 09/14/18 at 21:00 Bumetanide (Bumex) 1 mg BID DIURETICS IV Last administered on 09/15/18 05:06; Admin Dose 1 MG; Start 09/15/18 at 06:00 SUSANNA MURPHY MD Sep 15, 2018 09:23
--- NOTE | 2018-09-15 10:25 | CONS ---
Date/Time of Note Date/Time of Note DATE: 09/15/18 TIME: 10:22 Assessment/Plan Assessment/Plan Assessment/Plan 1. Congestive heart failure. The patient has heart failure exacerbation, diastolic, acute on chronic. The patient is in better fluid status - will keep euvolemic now. 2. Hypertension. Blood pressure on the high side. Continue to treat medically as tolerated. Renal team follows. 3. Atrial fibrillation, paroxysmal. The patient is in sinus rhythm now. Will monitor on tele. 4. Hypercoagulable state. The patient is on Eliquis and dose adjusted to the rate which is appropriate. 5. History of pleural effusion. Defer to pulmonary team. 6. ARRF - advanced, ARF on CRF likely - avoid nephrotoxic meds. Result Diagram: 09/15/1851909/15/18519 Results 24hrs Laboratory Tests Test 09/14/18 11:48 09/14/18 17:17 09/14/18 20:19 09/15/18 02:41 Bedside Glucose 95 156 167 165 Test 09/15/18 05:20 09/15/18 07:28 White Blood Count 6.4 Red Blood Count 2.66 L Hemoglobin 7.1 L Hematocrit 22.5 L Mean Corpuscular 84.6 Volume Mean Corpuscular 26.7 L Hemoglobin Mean Corpuscular 31.6 L Hemoglobin Concent Red Cell 13.1 Distribution Width Platelet Count 198 Mean Platelet Volume 11.2 H Immature 0.500 H Granulocytes % Neutrophils % 65.7 Lymphocytes % 15.1 Monocytes % 10.2 Eosinophils % 8.0 H Basophils % 0.5 Nucleated Red Blood 0.0 Cells % Immature 0.030 Granulocytes # Neutrophils # 4.2 Lymphocytes # 1.0 Monocytes # 0.7 Eosinophils # 0.5 Basophils # 0.0 Nucleated Red Blood 0.0 Cells # Sodium Level 137 Potassium Level 4.5 Chloride Level 100 Carbon Dioxide Level 25 Anion Gap 12 Blood Urea Nitrogen 88 H Creatinine 3.72 H Est Glomerular 18 L Filtrat Rate mL/min Glucose Level 91 # Calcium Level 9.1 Phosphorus Level 6.3 H Magnesium Level 2.2 Total Bilirubin 0.3 Direct Bilirubin 0.00 Indirect Bilirubin 0.3 Aspartate Amino 23 Transf (AST/SGOT) Alanine 26 Aminotransferase (AL T/SGPT) Alkaline Phosphatase 65 Total Protein 6.7 Albumin 4.1 Globulin 2.60 Albumin/Globulin 1.57 Ratio Bedside Glucose 79 Consultation Date/Type/Reason Admit Date/Time Sep 13, 2018 at 08:45 Initial Consult Date 09/13/18 Requesting Provider: LEXII REED 24 HR Interval Summary Free Text/Dictation NO acute events - better fluid status - H/H trending down. ROS: No fever, no chills, no nausea, no vomiting, no diarrhea/constipation No recent weight changes No chest pain, no PND, no orthopnea - improved SOB. No dizziness, blurred vision No thirst, no heat or cold intolerance Exam/Review of Systems Vital Signs Vitals Vital Signs Date Temp Pulse Resp B/P (MAP) Pulse Ox O2 O2 Flow FiO2 Time Delivery Rate 09/15/18 76 08:28 09/15/18 98.2 18 157/81 98 07:18 (106) 09/15/18 30 01:50 09/14/18 Nasal 3.0 00:30 Cannula Intake and Output 09/14/18 09/14/18 09/15/18 1515:00 23:00 07:00 IntakeIntake Total 650 ml 250 ml OutputOutput Total 2050 ml 1590 ml BalanceBalance -1400 ml -1340 ml Exam General: WN/WD/NAD, AOx 3 HEENT: Unicetric/atraumatic/EOMI (follow commands) NECK: JVD elevated, no thyromegaly Lymph: no lymphadenopathy HEART: regular with no S3, II/ systolic murmur at apex LUNGS: Coarse sounds ABD: soft, NT, ND, +BS : Intact Neuro: non focal SKIN: chronic changes EXT: + edema Medications Medications Current Medications Lorazepam (Ativan) 0.5 mg Q8H PRN PO ANXIETY; Start 09/13/18 at 12:30 Ondansetron HCl (Zofran Inj) 4 mg Q6H PRN IV NAUSEA AND/OR VOMITING; Start 09/13/18 at 12:30 Nitroglycerin (Nitroglycerin (Sl Tab) 0.4 Mg) 1 tab Q5M PRN SL CHEST PAIN; Start 09/13/18 at 12:30 Acetaminophen (Tylenol Tab) 650 mg Q6H PRN PO PAIN LEVEL 1-3 OR FEVER; Start 09/13/18 at 12:30 Morphine Sulfate (morphine) 2 mg Q4H PRN IV SEVERE PAIN LEVEL 7-10 Last administered on 09/15/18 04:44; Admin Dose 2 MG; Start 09/13/18 at 13:00 Zolpidem Tartrate (Ambien) 5 mg QHS PRN PO INSOMNIA Last administered on 09/14/18 22:38; Admin Dose 5 MG; Start 09/13/18 at 12:30 Docusate Sodium (Colace) 100 mg Q12H PO Last administered on 09/15/18 00:05; Admin Dose 100 MG; Start 09/13/18 at 12:30 Famotidine (Pepcid) 20 mg Q12 PO Last administered on 09/15/18 08:04; Admin Dose 20 MG; Start 09/13/18 at 21:00 Apixaban (Eliquis) 2.5 mg BID PO Last administered on 09/15/18 08:04; Admin Dose 2.5 MG; Start 09/13/18 at 21:00 Atorvastatin Calcium (Lipitor) 80 mg QHS PO Last administered on 09/14/18 20:22; Admin Dose 80 MG; Start 09/13/18 at 21:00 Cholecalciferol (Vitamin D) 2,000 unit DAILY PO Last administered on 09/15/18 08:05; Admin Dose 2,000 UNIT; Start 09/14/18 at 09:00 EZETIMIBE (Zetia) 10 mg HS PO Last administered on 09/14/18 20:21; Admin Dose 10 MG; Start 09/13/18 at 21:00 Insulin Glargine (Lantus) 30 units QHS SC Last administered on 09/14/18 20:32; Admin Dose 30 UNITS; Start 09/13/18 at 21:00 Isosorbide Mononitrate (Imdur) 30 mg DAILY PO Last administered on 09/15/18 08:04; Admin Dose 30 MG; Start 09/14/18 at 09:00 Spironolactone (Aldactone) 25 mg DAILY PO Last administered on 09/15/18 08:04; Admin Dose 25 MG; Start 09/14/18 at 09:00 Insulin Aspart (Novolog Insulin Pen) 10 unit WITH MEALS SC Last administered on 09/14/18 17:17; Admin Dose 10 UNIT; Start 09/13/18 at 18:00 Miscellaneous Information 1 ea NOTE XX ; Start 09/13/18 at 13:00 Glucose (Glutose) 15 gm Q15M PRN PO DECREASED GLUCOSE; Start 09/13/18 at 13:00 Glucose (Glutose) 22.5 gm Q15M PRN PO DECREASED GLUCOSE; Start 09/13/18 at 13:00 Dextrose (D50w Syringe) 25 ml Q15M PRN IV DECREASED GLUCOSE; Start 09/13/18 at 13:00 Dextrose (D50w Syringe) 50 ml Q15M PRN IV DECREASED GLUCOSE; Start 09/13/18 at 13:00 Glucagon (Glucagen) 1 mg Q15M PRN IM DECREASED GLUCOSE; Start 09/13/18 at 13:00 Glucose (Glutose) 15 gm Q15M PRN BUCCAL DECREASED GLUCOSE; Start 09/13/18 at 13:00 Acetaminophen/ Hydrocodone Bitart ([place] (5/325)) 1 tab Q4H PRN PO MODERATE PAIN LEVEL 4-6; Start 09/13/18 at 13:00 Epoetin [place] (Epogen (Non Esrd/Non Oncology)) 6,000 units TuThSa@17 SC Last administered on 09/14/18at 17:00; Admin Dose 6,000 UNITS; Start 09/14/18 at 17:00 Sevelamer Carbonate (Renvela) 800 mg WITH MEALS PO Last administered on 09/15/18at 07:34; Admin Dose 800 MG; Start 09/14/18 at 08:00 Hydralazine HCl (Apresoline) 100 mg BID PO Last administered on 09/15/18at 08:05; Admin Dose 100 MG; Start 09/14/18 at 21:00 Losartan Potassium (Cozaar) 25 mg QHS PO Last administered on 09/14/18at 20:22; Admin Dose 25 MG; Start 09/14/18 at 21:00 Bumetanide (Bumex) 1 mg BID DIURETICS IV Last administered on 09/15/18at 05:06; Admin Dose 1 MG; Start 09/15/18 at 06:00; Status Hold Carvedilol (Coreg) 12.5 mg BID PO ; Start 09/15/18 at 21:00 Doxazosin Mesylate (Cardura) 2 mg HS PO ; Start 09/15/18 at 21:00 DELIA BILLY MD Sep 15, 2018 10:25
--- NOTE | 2018-09-15 10:45 | CONS ---
Date/Time of Note Date/Time of Note DATE: 09/15/18 TIME: 10:45 Assessment/Plan Assessment/Plan Assessment/Plan 1.Acute kidney injury on CKD III due to hemodynamics from CHF 2. acute CHF exacerbation, acute on chronic, diastolic, with fluid overload and pulmonary congestion with anasarca 3. 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 H/o HTN 5. LE edema/anasarca 6. HL 7. Anemia of chronic kidney disease Plan: BUN/Cr 88/3.72, slightly went up, leg edema improving BP stable Finishing IV albumin x 6 doses, on epogen 6000 units SQ TTS for anemia Continue Renvela 800mg TID for hyperphosphatemia - monitor electrolytes and replace aggressively Renal US on previous visit- unremarkable, Kidney size R 12.0, left 11.2 cm, normal echogenicity on last visit Nifedipine 60mg BID , Coreg 6.25mg PO BID, Hydralazine 100mg PO TID and Spironolactone 25 mg po daily Stopped Losartan for now due to acute on chronic renal failure [facility] follow up Result Diagram: 09/15/18 0520 09/15/18 0520 Results 24hrs Laboratory Tests Test 09/14/18 11:48 09/14/18 17:17 09/14/18 20:19 09/15/18 02:41 Bedside Glucose 95 156 167 165 Test 09/15/18 05:20 09/15/18 07:28 White Blood Count 6.4 Red Blood Count 2.66 L Hemoglobin 7.1 L Hematocrit 22.5 L Mean Corpuscular 84.6 Volume Mean Corpuscular 26.7 L Hemoglobin Mean Corpuscular 31.6 L Hemoglobin Concent Red Cell 13.1 Distribution Width Platelet Count 198 Mean Platelet Volume 11.2 H Immature 0.500 H Granulocytes % Neutrophils % 65.7 Lymphocytes % 15.1 Monocytes % 10.2 Eosinophils % 8.0 H Basophils % 0.5 Nucleated Red Blood 0.0 Cells % Immature 0.030 Granulocytes # Neutrophils # 4.2 Lymphocytes # 1.0 Monocytes # 0.7 Eosinophils # 0.5 Basophils # 0.0 Nucleated Red Blood 0.0 Cells # Sodium Level 137 Potassium Level 4.5 Chloride Level 100 Carbon Dioxide Level 25 Anion Gap 12 Blood Urea Nitrogen 88 H Creatinine 3.72 H Est Glomerular 18 L Filtrat Rate mL/min Glucose Level 91 # Calcium Level 9.1 Phosphorus Level 6.3 H Magnesium Level 2.2 Total Bilirubin 0.3 Direct Bilirubin 0.00 Indirect Bilirubin 0.3 Aspartate Amino 23 Transf (AST/SGOT) Alanine 26 Aminotransferase (AL T/SGPT) Alkaline Phosphatase 65 Total Protein 6.7 Albumin 4.1 Globulin 2.60 Albumin/Globulin 1.57 Ratio Bedside Glucose 79 Consultation Date/Type/Reason Admit Date/Time Sep 13, 2018 at 08:45 Initial Consult Date 09/13/18 Type of Consult NEPHROLOGY Requesting Provider: LEXII REED 24 HR Interval Summary Free Text/Dictation BUN/Cr 88/3.72, slightly went up, leg edema improving BP stable Exam/Review of Systems Vital Signs Vitals Vital Signs Date Temp Pulse Resp B/P (MAP) Pulse Ox O2 O2 Flow FiO2 Time Delivery Rate 09/15/18 76 08:28 09/15/18 98.2 18 157/81 98 07:18 (106) 09/15/18 30 01:50 09/14/18 Nasal 3.0 00:30 Cannula Intake and Output 09/14/18 09/14/18 09/15/18 1515:00 23:00 07:00 IntakeIntake Total 650 ml 250 ml OutputOutput Total 2050 ml 1590 ml BalanceBalance -1400 ml -1340 ml Exam Psych: no complaints Respiratory: Bibasilar rales, no wheezing Cardiovascular: regular rate and rhythm, nl pulses Gastrointestinal: soft, distended Musculoskeletal: muscle tone, muscle weakness, swelling Extremities: normal pulses, 3+ pitting edema upto thigh, Abdominal wall edema Neurological: ASPHALT LAYER II-XII intact, nl mental status, nl speech, nl strength Medications Medications Current Medications Lorazepam (Ativan) 0.5 mg Q8H PRN PO ANXIETY; Start 09/13/18 at 12:30 Ondansetron HCl (Zofran Inj) 4 mg Q6H PRN IV NAUSEA AND/OR VOMITING; Start 09/13/18 at 12:30 Nitroglycerin (Nitroglycerin (Sl Tab) 0.4 Mg) 1 tab Q5M PRN SL CHEST PAIN; Start 09/13/18 at 12:30 Acetaminophen (Tylenol Tab) 650 mg Q6H PRN PO PAIN LEVEL 1-3 OR FEVER; Start 09/13/18 at 12:30 Morphine Sulfate (morphine) 2 mg Q4H PRN IV SEVERE PAIN LEVEL 7-10 Last administered on 09/15/18 04:44; Admin Dose 2 MG; Start 09/13/18 at 13:00 Zolpidem Tartrate (Ambien) 5 mg QHS PRN PO INSOMNIA Last administered on 09/14/18 22:38; Admin Dose 5 MG; Start 09/13/18 at 12:30 Docusate Sodium (Colace) 100 mg Q12H PO Last administered on 09/15/18 00:05; Admin Dose 100 MG; Start 09/13/18 at 12:30 Famotidine (Pepcid) 20 mg Q12 PO Last administered on 09/15/18 08:04; Admin Dose 20 MG; Start 09/13/18 at 21:00 Apixaban (Eliquis) 2.5 mg BID PO Last administered on 09/15/18 08:04; Admin Dose 2.5 MG; Start 09/13/18 at 21:00 Atorvastatin Calcium (Lipitor) 80 mg QHS PO Last administered on 09/14/18 20:22; Admin Dose 80 MG; Start 09/13/18 at 21:00 Cholecalciferol (Vitamin D) 2,000 unit DAILY PO Last administered on 09/15/18 08:05; Admin Dose 2,000 UNIT; Start 09/14/18 at 09:00 EZETIMIBE (Zetia) 10 mg HS PO Last administered on 09/14/18 20:21; Admin Dose 10 MG; Start 09/13/18 at 21:00 Insulin Glargine (Lantus) 30 units QHS SC Last administered on 09/14/18 20:32; Admin Dose 30 UNITS; Start 09/13/18 at 21:00 Isosorbide Mononitrate (Imdur) 30 mg DAILY PO Last administered on 09/15/18 08:04; Admin Dose 30 MG; Start 09/14/18 at 09:00 Spironolactone (Aldactone) 25 mg DAILY PO Last administered on 09/15/18 08:04; Admin Dose 25 MG; Start 09/14/18 at 09:00 Insulin Aspart (Novolog Insulin Pen) 10 unit WITH MEALS SC Last administered on 09/14/18 17:17; Admin Dose 10 UNIT; Start 09/13/18 at 18:00 Miscellaneous Information 1 ea NOTE XX ; Start 09/13/18 at 13:00 Glucose (Glutose) 15 gm Q15M PRN PO DECREASED GLUCOSE; Start 09/13/18 at 13:00 Glucose (Glutose) 22.5 gm Q15M PRN PO DECREASED GLUCOSE; Start 09/13/18 at 13:00 Dextrose (D50w Syringe) 25 ml Q15M PRN IV DECREASED GLUCOSE; Start 09/13/18 at 13:00 Dextrose (D50w Syringe) 50 ml Q15M PRN IV DECREASED GLUCOSE; Start 09/13/18 at 13:00 Glucagon (Glucagen) 1 mg Q15M PRN IM DECREASED GLUCOSE; Start 09/13/18 at 13:00 Glucose (Glutose) 15 gm Q15M PRN BUCCAL DECREASED GLUCOSE; Start 09/13/18 at 13:00 Acetaminophen/ Hydrocodone Bitart ([place] (5/325)) 1 tab Q4H PRN PO MODERATE PAIN LEVEL 4-6; Start 09/13/18 at 13:00 Epoetin [place] (Epogen (Non Esrd/Non Oncology)) 6,000 units TuThSa@17 SC Last administered on 09/14/18at 17:00; Admin Dose 6,000 UNITS; Start 09/14/18 at 17:00 Sevelamer Carbonate (Renvela) 800 mg WITH MEALS PO Last administered on 09/15/18at 07:34; Admin Dose 800 MG; Start 09/14/18 at 08:00 Hydralazine HCl (Apresoline) 100 mg BID PO Last administered on 09/15/18at 08:05; Admin Dose 100 MG; Start 09/14/18 at 21:00 Losartan Potassium (Cozaar) 25 mg QHS PO Last administered on 09/14/18at 20:22; Admin Dose 25 MG; Start 09/14/18 at 21:00 Bumetanide (Bumex) 1 mg BID DIURETICS IV Last administered on 09/15/18at 05:06; Admin Dose 1 MG; Start 09/15/18 at 06:00; Status Hold Carvedilol (Coreg) 12.5 mg BID PO ; Start 09/15/18 at 21:00 Doxazosin Mesylate (Cardura) 2 mg HS PO ; Start 09/15/18 at 21:00 Isosorbide Dinitrate (Isordil) 40 mg TID PO ; Start 09/15/18 at 13:00 LOLIS CROWDER MD Sep 15, 2018 10:45
[2018-09-15] MEDS: ISOSORBIDE DINITRATE 20 MG TAB PO SCH ×2 (12:36→20:32)
[2018-09-15] MEDS: EZETIMIBE 10 MG TAB PO SCH (20:25)
[2018-09-15] MEDS: INSULIN GLARGINE [LANTus] (100 UNITS/ML) SYG SC SCH (20:27)
[2018-09-15] MEDS: ACETAMINOPHEN 325 MG TAB PO PRN (20:30)
[2018-09-15] MEDS: LOSARTAN 25 MG TAB PO SCH (20:32)
[2018-09-15] MEDS: ATORVASTATIN 80 MG TAB PO SCH (20:32)
[2018-09-15] MEDS: DOXAZOSIN 2 MG TAB PO SCH (20:32)
[2018-09-15] MEDS ORDERED: DOXAZOSIN 2 MG TAB PO SCH (21:00)
[2018-09-15] MEDS ORDERED: LEVOFLOXACIN 500MG/D5W (PMX) 100 ML IVPB SCH (22:30)
[2018-09-15] MEDS: ONDANSETRON 4 MG INJ IV PRN (22:39)
[2018-09-16] VITALS (15 sets, daily range): BP systolic 126–175; BP diastolic 61–82; PULSE 82–104; RESP 17–18
[2018-09-16] MEDS: ACETAMINOPHEN 325 MG TAB PO PRN ×3 (02:33→19:37)
[2018-09-16] MEDS: morphine 4 MG/ML VIAL IV PRN ×2 (02:59→11:17)
[2018-09-16] MEDS ORDERED: OSELTAMIVIR 30 MG CAP PO ONE ×2 (05:00)
--- NOTE | 2018-09-16 06:40 | NUR ---
RN END OF SHIFT NOTE PATIENT ALERT AND ORIENTED X 4, PAIN CONTROLLED WITH MORPHINE 2 MG IVP Q 4 HOURS PRN X 2 ON MY SHIFT. PATIENT WITH STUFFY NOSE AND A FEVER OF 102.3, BLOOD CX, URINE CX, LACTIC ACID, AND INFLUENZA A & B SWAB WERE DONE AND LEVAQUIN 500 MG IVPB AND TAMIFLU 30 MG PO X [address]'S ORDERS, TEMP 99.6 AT 0500. PATIENT'S POST VOID RESIDUAL WAS 0 ML. BED IN THE LOWEST POSITION WITH BRAKES ENGAGED, HOURLY ROUNDING AND BED ALARM IN PLACE. WILL CONTINUE TO MONITOR PATIENT'S TEMPERATURE. WILL ENDORSE TO DAY SHIFT RN.
[2018-09-16] MEDS: INSULIN ASPART [NOVOLOG] 3 ML PEN SC SCH ×3 (08:00→17:46)
--- NOTE | 2018-09-16 08:41 | CONS ---
Date/Time of Note Date/Time of Note DATE: 09/16/18 TIME: 08:39 Assessment/Plan Assessment/Plan Assessment/Plan 1. Congestive heart failure. The patient has heart failure exacerbation, diastolic, acute on chronic. The patient is in better fluid status - will keep euvolemic now. Cr high - might be heading toward Hd - DR. Valencia Pascual follows. 2. Hypertension. Blood pressure on the high side. Continue to treat medic ally as tolerated. Renal team follows. BETTER now. 3. Atrial fibrillation, paroxysmal. The patient is in sinus rhythm now. Will monitor on tele. TREATED. 4. Hypercoagulable state. The patient is on Eliquis and dose adjusted to the rate which is appropriate. 5. History of pleural effusion. Defer to pulmonary team. 6. ARRF - advanced, ARF on CRF likely - avoid nephrotoxic meds. 7. Fever - primary team will follow. Result Diagram: 09/15/18 0520 09/16/18 0516 Results 24hrs Laboratory Tests Test 09/15/18 11:50 09/15/18 16:55 09/15/18 20:23 09/15/18 23:05 Bedside Glucose 115 89 97 Lactic Acid Level 0.8 Test 09/16/18 01:41 09/16/18 05:16 09/16/18 08:13 Bedside Glucose 104 85 Sodium Level 135 Potassium Level 4.6 Chloride Level 101 Carbon Dioxide Level 22 Anion Gap 12 Blood Urea Nitrogen 88 H Creatinine 3.86 H Est Glomerular 17 L Filtrat Rate mL/min Glucose Level 84 Calcium Level 8.8 Consultation Date/Type/Reason Admit Date/Time Sep 13, 2018 at 08:45 Initial Consult Date 09/13/18 Requesting Provider: LEXII REED 24 HR Interval Summary Free Text/Dictation NO acute events - BP better - still in mild CHF with ARF - will monitor closely. ROS: + fever, + chills, no nausea, no vomiting, no diarrhea/constipation No recent weight changes No chest pain, no PND, no orthopnea No dizziness, blurred vision No thirst, no heat or cold intolerance Exam/Review of Systems Vital Signs Vitals Vital Signs Date Temp Pulse Resp B/P (MAP) Pulse Ox O2 O2 Flow FiO2 Time Delivery Rate 09/16/18 98.9 82 18 162/77 95 Room Air 07:38 (105) 09/15/18 30 23:15 09/14/18 3.0 00:30 Intake and Output 09/15/18 09/15/18 09/16/18 1515:00 23:00 07:00 IntakeIntake Total 1300 ml 650 ml OutputOutput Total 2780 ml 1200 ml BalanceBalance -1480 ml -550 ml Exam General: WN/WD/NAD, AOx 3 HEENT: Unicetric/atraumatic/EOMI ( follows commands) NECK: JVD elevated, no thyromegaly Lymph: no lymphadenopathy HEART: regular with no S3, II/ systolic murmur at apex LUNGS: Coarse sounds ABD: soft, NT, ND, +BS : Intact Neuro: non focal SKIN: chronic changes EXT: + edema Medications Medications Current Medications Lorazepam (Ativan) 0.5 mg Q8H PRN PO ANXIETY; Start 09/13/18 at 12:30 Ondansetron HCl (Zofran Inj) 4 mg Q6H PRN IV NAUSEA AND/OR VOMITING Last administered on 09/15/18at 22:39; Admin Dose 4 MG; Start 09/13/18 at 12:30 Nitroglycerin (Nitroglycerin (Sl Tab) 0.4 Mg) 1 tab Q5M PRN SL CHEST PAIN; Start 09/13/18 at 12:30 Acetaminophen (Tylenol Tab) 650 mg Q6H PRN PO PAIN LEVEL 1-3 OR FEVER Last administered on 09/16/18at 02:33; Admin Dose 650 MG; Start 09/13/18 at 12:30 Morphine Sulfate (morphine) 2 mg Q4H PRN IV SEVERE PAIN LEVEL 7-10 Last administered on 09/16/18at 02:59; Admin Dose 2 MG; Start 09/13/18 at 13:00 Zolpidem Tartrate (Ambien) 5 mg QHS PRN PO INSOMNIA Last administered on 09/14/18 22:38; Admin Dose 5 MG; Start 09/13/18 at 12:30 Docusate Sodium (Colace) 100 mg Q12H PO Last administered on 09/15/18 23:31; Admin Dose 100 MG; Start 09/13/18 at 12:30 Famotidine (Pepcid) 20 mg Q12 PO Last administered on 09/15/18 20:31; Admin Dose 20 MG; Start 09/13/18 at 21:00 Apixaban (Eliquis) 2.5 mg BID PO Last administered on 09/15/18at 20:31; Admin Dose 2.5 MG; Start 09/13/18 at 21:00 Atorvastatin Calcium (Lipitor) 80 mg QHS PO Last administered on 09/15/18at 20:32; Admin Dose 80 MG; Start 09/13/18 at 21:00 Cholecalciferol (Vitamin D) 2,000 unit DAILY PO Last administered on 09/15/18at 08:05; Admin Dose 2,000 UNIT; Start 09/14/18 at 09:00 EZETIMIBE (Zetia) 10 mg HS PO Last administered on 09/15/18at 20:25; Admin Dose 10 MG; Start 09/13/18 at 21:00 Insulin Glargine (Lantus) 30 units QHS SC Last administered on 09/15/18at 20:27; Admin Dose 30 UNITS; Start 09/13/18 at 21:00 Isosorbide Mononitrate (Imdur) 30 mg DAILY PO Last administered on 09/15/18at 08:04; Admin Dose 30 MG; Start 09/14/18 at 09:00 Spironolactone (Aldactone) 25 mg DAILY PO Last administered on 09/15/18at 08:04; Admin Dose 25 MG; Start 09/14/18 at 09:00 Insulin Aspart (Novolog Insulin Pen) 10 unit WITH MEALS SC Last administered on 09/14/18at 17:17; Admin Dose 10 UNIT; Start 09/13/18 at 18:00 Miscellaneous Information 1 ea NOTE XX ; Start 09/13/18 at 13:00 Glucose (Glutose) 15 gm Q15M PRN PO DECREASED GLUCOSE; Start 09/13/18 at 13:00 Glucose (Glutose) 22.5 gm Q15M PRN PO DECREASED GLUCOSE; Start 09/13/18 at 13:00 Dextrose (D50w Syringe) 25 ml Q15M PRN IV DECREASED GLUCOSE; Start 09/13/18 at 13:00 Dextrose (D50w Syringe) 50 ml Q15M PRN IV DECREASED GLUCOSE; Start 09/13/18 at 13:00 Glucagon (Glucagen) 1 mg Q15M PRN IM DECREASED GLUCOSE; Start 09/13/18 at 13:00 Glucose (Glutose) 15 gm Q15M PRN BUCCAL DECREASED GLUCOSE; Start 09/13/18 at 13:00 Acetaminophen/ Hydrocodone Bitart ([place] (5/325)) 1 tab Q4H PRN PO MODERATE PAIN LEVEL 4-6; Start 09/13/18 at 13:00 Epoetin [place] (Epogen (Non Esrd/Non Oncology)) 6,000 units TuThSa@17 SC Last administered on 09/14/18 17:00; Admin Dose 6,000 UNITS; Start 09/14/18 at 17:00 Sevelamer Carbonate (Renvela) 800 mg WITH MEALS PO Last administered on 09/15/18 16:56; Admin Dose 800 MG; Start 09/14/18 at 08:00 Hydralazine HCl (Apresoline) 100 mg BID PO Last administered on 09/15/18 20:31; Admin Dose 100 MG; Start 09/14/18 at 21:00 Losartan Potassium (Cozaar) 25 mg QHS PO Last administered on 09/15/18 20:32; Admin Dose 25 MG; Start 09/14/18 at 21:00 Bumetanide (Bumex) 1 mg BID DIURETICS IV Last administered on 09/15/18 05:06; Admin Dose 1 MG; Start 09/15/18 at 06:00; Status Hold Carvedilol (Coreg) 12.5 mg BID PO Last administered on 09/15/18 20:33; Admin D ose 12.5 MG; Start 09/15/18 at 21:00 Doxazosin Mesylate (Cardura) 2 mg HS PO Last administered on 09/15/18 20:32; Admin Dose 2 MG; Start 09/15/18 at 21:00 Isosorbide Dinitrate (Isordil) 40 mg TID PO Last administered on 09/15/18 20:32; Admin Dose 40 MG; Start 09/15/18 at 13:00 Levofloxacin/ Dextrose 100 ml @ 100 mls/hr Q24H IVPB Last administered on 09/15/18 23:26; Admin Dose 100 MLS/HR; Start 09/15/18 at 22:30 DELIA BILLY MD Sep 16, 2018 08:41
[2018-09-16] MEDS: SEVELAMER CARBONATE 800 MG TABLET PO SCH ×3 (08:51→17:33)
[2018-09-16] MEDS: ISOSORBIDE DINITRATE 20 MG TAB PO SCH ×3 (08:53→20:21)
[2018-09-16] MEDS: CHOLECALCIFEROL 1,000 UNIT TAB PO SCH (08:53)
[2018-09-16] MEDS: FAMOTIDINE 20 MG TAB PO SCH ×2 (08:53→20:21)
[2018-09-16] MEDS: ISOSORBIDE MONONITRATE(SR)30 MG TAB PO SCH (08:53)
[2018-09-16] MEDS: SPIRONOLACTONE 25 MG TAB PO SCH (08:53)
[2018-09-16] MEDS: APIXABAN 5 MG TABLET PO SCH ×2 (08:54→20:20)
[2018-09-16] MEDS: hydrALAzine 20 MG INJ IV PRN ×2 (10:54→18:09)
[2018-09-16] MEDS ORDERED: FUROSEMIDE 20 MG INJ IV ONE (11:00)
--- NOTE | 2018-09-16 11:33 | NUR ---
Nurse note pt continues to have high temp now at 102, Dr. Perez notified ice packs given to the pt tylenol given pt on daily tamiflu as ordered continuing to monitor
--- NOTE | 2018-09-16 11:56 | CONS ---
Date/Time of Note Date/Time of Note DATE: 09/16/18 TIME: 11:56 Assessment/Plan Assessment/Plan Assessment/Plan 1.Acute kidney injury on CKD III due to hemodynamics from CHF 2. acute CHF exacerbation, acute on chronic, diastolic, with fluid overload and pulmonary congestion with anasarca 3. 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 H/o HTN 5. LE edema/anasarca 6. HL 7. Anemia of chronic kidney disease Plan: BUN/Cr 87/3.79 leg edema improving, Hb dropped to 6.9-1. on epogen 6000 units SQ TTS for anemia, prn transfusion Continue Renvela 800mg TID for hyperphosphatemia - monitor electrolytes and replace aggressively Renal US on previous visit- unremarkable, Kidney size R 12.0, left 11.2 cm, normal echogenicity on last visit Nifedipine 60mg BID , Coreg 6.25mg PO BID, Hydralazine 100mg PO TID and Spironolactone 25 mg po daily Stopped Losartan for now due to acute on chronic renal failure [facility] follow up Result Diagram: 09/16/18 1021 09/16/18 1021 Results 24hrs Laboratory Tests Test 09/15/18 16:55 09/15/18 20:23 09/15/18 23:05 09/16/18 01:41 Bedside Glucose 89 97 104 Lactic Acid Level 0.8 Test 09/16/18 05:16 09/16/18 08:13 09/16/18 10:21 Sodium Level 135 135 Potassium Level 4.6 4.7 Chloride Level 101 101 Carbon Dioxide Level 22 23 Anion Gap 12 11 Blood Urea Nitrogen 88 H 87 H Creatinine 3.86 H 3.79 H Est Glomerular 17 L 17 L Filtrat Rate mL/min Glucose Level 84 77 Calcium Level 8.8 8.8 Bedside Glucose 85 White Blood Count 6.6 Red Blood Count 2.60 L Hemoglobin 6.9 *L Hematocrit 21.9 L Mean Corpuscular 84.2 Volume Mean Corpuscular 26.5 L Hemoglobin Mean Corpuscular 31.5 L Hemoglobin Concent Red Cell 13.1 Distribution Width Platelet Count 161 Mean Platelet Volume 11.0 H Immature 0.500 H Granulocytes % Neutrophils % 79.4 H Lymphocytes % 8.0 L Monocytes % 9.8 Eosinophils % 2.0 Basophils % 0.3 Nucleated Red Blood 0.0 Cells % Immature 0.030 Granulocytes # Neutrophils # 5.3 Lymphocytes # 0.5 L Monocytes # 0.7 Eosinophils # 0.1 Basophils # 0.0 Nucleated Red Blood 0.0 Cells # Consultation Date/Type/Reason Admit Date/Time Sep 13, 2018 at 08:45 Initial Consult Date 09/13/18 Type of Consult NEPHROLOGY Requesting Provider: LEXII REED 24 HR Interval Summary Free Text/Dictation BUN/Cr 87/3.79, Hb dropped to 6.9 Exam/Review of Systems Vital Signs Vitals Vital Signs Date Temp Pulse Resp B/P (MAP) Pulse Ox O2 O2 Flow FiO2 Time Delivery Rate 09/16/18 102.6 93 18 158/74 95 Room Air 11:30 (102) 09/15/18 30 23:15 09/14/18 3.0 00:30 Intake and Output 09/15/18 09/15/18 09/16/18 1515:00 23:00 07:00 IntakeIntake Total 1300 ml 650 ml OutputOutput Total 2780 ml 1200 ml BalanceBalance -1480 ml -550 ml Exam GEN: awake, alert, no acute distress Respiratory: Bibasilar rales, no wheezing Cardiovascular: regular rate and rhythm, nl pulses Gastrointestinal: soft, distended Musculoskeletal: muscle tone, muscle weakness, swelling Extremities: normal pulses,1-2+ LE pitting edema Neurological: PACKAGING ENGINEER II-XII intact, nl mental status, nl speech, nl strength Medications Medications Current Medications Lorazepam (Ativan) 0.5 mg Q8H PRN PO ANXIETY; Start 09/13/18 at 12:30 Ondansetron HCl (Zofran Inj) 4 mg Q6H PRN IV NAUSEA AND/OR VOMITING Last administered on 09/15/18at 22:39; Admin Dose 4 MG; Start 09/13/18 at 12:30 Nitroglycerin (Nitroglycerin (Sl Tab) 0.4 Mg) 1 tab Q5M PRN SL CHEST PAIN; Start 09/13/18 at 12:30 Acetaminophen (Tylenol Tab) 650 mg Q6H PRN PO PAIN LEVEL 1-3 OR FEVER Last administered on 09/16/18at 10:53; Admin Dose 650 MG; Start 09/13/18 at 12:30 Morphine Sulfate (morphine) 2 mg Q4H PRN IV SEVERE PAIN LEVEL 7-10 Last administered on 09/16/18 11:17; Admin Dose 2 MG; Start 09/13/18 at 13:00 Zolpidem Tartrate (Ambien) 5 mg QHS PRN PO INSOMNIA Last administered on 09/14/18 22:38; Admin Dose 5 MG; Start 09/13/18 at 12:30 Docusate Sodium (Colace) 100 mg Q12H PO Last administered on 09/15/18 23:31; Admin Dose 100 MG; Start 09/13/18 at 12:30 Famotidine (Pepcid) 20 mg Q12 PO Last administered on 09/16/18 08:53; Admin Dose 20 MG; Start 09/13/18 at 21:00 Apixaban (Eliquis) 2.5 mg BID PO Last administered on 09/16/18 08:54; Admin Dose 2.5 MG; Start 09/13/18 at 21:00 Atorvastatin Calcium (Lipitor) 80 mg QHS PO Last administered on 09/15/18 20:32; Admin Dose 80 MG; Start 09/13/18 at 21:00 Cholecalciferol (Vitamin D) 2,000 unit DAILY PO Last administered on 09/16/18 08:53; Admin Dose 2,000 UNIT; Start 09/14/18 at 09:00 EZETIMIBE (Zetia) 10 mg HS PO Last administered on 09/15/18 20:25; Admin Dose 10 MG; Start 09/13/18 at 21:00 Insulin Glargine (Lantus) 30 units QHS SC Last administered on 09/15/18 20:27; Admin Dose 30 UNITS; Start 09/13/18 at 21:00 Isosorbide Mononitrate (Imdur) 30 mg DAILY PO Last administered on 09/16/18 08:53; Admin Dose 30 MG; Start 09/14/18 at 09:00 Spironolactone (Aldactone) 25 mg DAILY PO Last administered on 09/16/18 08:53; Admin Dose 25 MG; Start 09/14/18 at 09:00 Insulin Aspart (Novolog Insulin Pen) 10 unit WITH MEALS SC Last administered on 09/14/18 17:17; Admin Dose 10 UNIT; Start 09/13/18 at 18:00 Miscellaneous Information 1 ea NOTE XX ; Start 09/13/18 at 13:00 Glucose (Glutose) 15 gm Q15M PRN PO DECREASED GLUCOSE; Start 09/13/18 at 13:00 Glucose (Glutose) 22.5 gm Q15M PRN PO DECREASED GLUCOSE; Start 09/13/18 at 13:00 Dextrose (D50w Syringe) 25 ml Q15M PRN IV DECREASED GLUCOSE; Start 09/13/18 at 13:00 Dextrose (D50w Syringe) 50 ml Q15M PRN IV DECREASED GLUCOSE; Start 09/13/18 at 13:00 Glucagon (Glucagen) 1 mg Q15M PRN IM DECREASED GLUCOSE; Start 09/13/18 at 13:00 Glucose (Glutose) 15 gm Q15M PRN BUCCAL DECREASED GLUCOSE; Start 09/13/18 at 13:00 Acetaminophen/ Hydrocodone Bitart ([place] (5/325)) 1 tab Q4H PRN PO MODERATE PAIN LEVEL 4-6; Start 09/13/18 at 13:00 Epoetin [place] (Epogen (Non Esrd/Non Oncology)) 6,000 units TuThSa@17 SC Last administered on 09/14/18at 17:00; Admin Dose 6,000 UNITS; Start 09/14/18 at 17:00 Sevelamer Carbonate (Renvela) 800 mg WITH MEALS PO Last administered on 09/16/18at 08:51; Admin Dose 800 MG; Start 09/14/18 at 08:00 Hydralazine HCl (Apresoline) 100 mg BID PO Last administered on 09/16/18at 08:54; Admin Dose 100 MG; Start 09/14/18 at 21:00 Losartan Potassium (Cozaar) 25 mg QHS PO Last administered on 09/15/18at 20:32; Admin Dose 25 MG; Start 09/14/18 at 21:00 Bumetanide (Bumex) 1 mg BID DIURETICS IV Last administered on 09/15/18at 05:06; Admin Dose 1 MG; Start 09/15/18 at 06:00 Carvedilol (Coreg) 12.5 mg BID PO Last administered on 09/16/18at 08:54; Admin Dose 12.5 MG; Start 09/15/18 at 21:00 Doxazosin Mesylate (Cardura) 2 mg HS PO Last administered on 09/15/18at 20:32; Admin Dose 2 MG; Start 09/15/18 at 21:00 Isosorbide Dinitrate (Isordil) 40 mg TID PO Last administered on 09/16/18at 08:53; Admin Dose 40 MG; Start 09/15/18 at 13:00 Levofloxacin/ Dextrose 100 ml @ 100 mls/hr Q24H IVPB Last administered on 09/15/18at 23:26; Admin Dose 100 MLS/HR; Start 09/15/18 at 22:30 Hydralazine HCl (Apresoline) 10 mg Q6H PRN IV ELEVATED SYSTOLIC BP Last administered on 09/16/18at 10:54; Admin Dose 10 MG; Start 09/16/18 at 11:00 Oseltamivir Phosphate (Tamiflu) 75 mg DAILY PO ; Start 09/16/18 at 12:00; Status UNV LOLIS CROWDER MD Sep 16, 2018 11:56
[2018-09-16] MEDS: DOCUSATE SODIUM 100 MG CAP PO SCH (12:14)
--- NOTE | 2018-09-16 15:10 | NUR ---
blood tx started at 1410 temp at 99.3 it is now 1510 and temp is at 100.[address] Perez she states the blood is not causing him to have a temp pt already having high temps before this okay to give tylenol x1 dose now
[2018-09-16] MEDS ORDERED: ACETAMINOPHEN 325 MG TAB PO ONE (15:30)
[2018-09-16] MEDS ORDERED: VANCOMYCIN IV PER PHARMACY XX SCH (15:30)
--- NOTE | 2018-09-16 15:32 | PN ---
Date/Time of Note Date/Time of Note DATE: 09/16/18 TIME: 15:12 Assessment/Plan VTE Prophylaxis Risk score (from Nsg)>0 risk: 4 Pharmacological prophylaxis: apixaban Lines/Catheters IV Catheter Type (from Nrsg): [place] Urinary Cath still in place: No Assessment/Plan Assessment/Plan A 43-year-old male who presented with shortness of breath and bilateral lower extremity edema and managed as follows: 1. s/p Congestive heart failure exacerbation. Diastolic -Last echo showed ejection fraction of 60%, but abnormal diastolic function. -compensated, cardio managing, appreciate input 2. Acute on chronic kidney disease stage IV. -nephro managing, losartan on hold -cr levels holding steady, monitor 3. Anemia of chronic kidney disease. -hgb continues to drop despite epogen -transfuse for hgb 6.9 -check Stool OB, iron profile not suggestive of Iron deficiency -?hold eliquis 4. Paroxysmal atrial fibrillation. -patient continued on eliquis BID -remains in sinus with good rate control 5. Diabetes mellitus with suboptimal home control, -A1C likely unreliable in this patient with severe anemia -improved inpatient control, continue current regimen and titrate as indicated 6. Morbid obesity. -currently on calorie controlled diet -diet and exercise counselling re-inforced 7. Subatsance abuse / Cocaine use. -Cessation Therapy: Pt. was counselled for greater than 3 minutes on the health risks of continued abuse and the benefits of cessation, this will continue to be reinforced throughout hospitalization. -SW to provide resources 8. Chronic dyslipidemia. -continue statin 9. History of pleural effusion, status post thoracentesis in the past. 10. New onset Febrile illness -continue empiric tamiflu and abx, will broaden coverage till source is found -f/u blood and urine cxs, add CXR -LE dopplers Dispo: await clinical improvement Result Diagram: 09/16/18 1021 09/16/18 1021 Results 24hrs Laboratory Tests Test 09/15/18 16:55 09/15/18 20:23 09/15/18 23:05 09/16/18 01:41 Bedside Glucose 89 97 104 Lactic Acid Level 0.8 Test 09/16/18 05:16 09/16/18 08:13 09/16/18 10:21 09/16/18 12:12 Sodium Level 135 135 Potassium Level 4.6 4.7 Chloride Level 101 101 Carbon Dioxide Level 22 23 Anion Gap 12 11 Blood Urea Nitrogen 88 H 87 H Creatinine 3.86 H 3.79 H Est Glomerular 17 L 17 L Filtrat Rate mL/min Glucose Level 84 77 Calcium Level 8.8 8.8 Bedside Glucose 85 88 White Blood Count 6.6 Red Blood Count 2.60 L Hemoglobin 6.9 *L Hematocrit 21.9 L Mean Corpuscular 84.2 Volume Mean Corpuscular 26.5 L Hemoglobin Mean Corpuscular 31.5 L Hemoglobin Concent Red Cell 13.1 Distribution Width Platelet Count 161 Mean Platelet Volume 11.0 H Immature 0.500 H Granulocytes % Neutrophils % 79.4 H Segmented 79 H Neutrophils % (Manual) Band Neutrophils % 2 (Manual) Lymphocytes % 8.0 L Lymphocytes % 9 L (Manual) Monocytes % 9.8 Monocytes % (Manual) 7 Eosinophils % 2.0 Eosinophils % 3 (Manual) Basophils % 0.3 Nucleated Red Blood 0.0 Cells % Immature 0.030 Granulocytes # Neutrophils # 5.3 Neutrophils # 5.2 (Manual) Band Neutrophils # 0.1 Lymphocytes (Manual) 0.5 L Lymphocytes # 0.5 L Monocytes # 0.7 Monocytes # (Manual) 0.4 Eosinophils # 0.1 Basophils # 0.0 Nucleated Red Blood 0.0 Cells # Platelet Estimate NORMAL Polychromasia 2+ Anisocytosis 3+ Microcytosis 3+ Subjective 24 Hr Interval Summary Free Text/Dictation fever, chills, body aches Exam/Review of Systems Vital Signs Vitals Vital Signs Date Temp Pulse Resp B/P (MAP) Pulse Ox O2 O2 Flow FiO2 Time Delivery Rate 09/16/18 99.6 14:01 09/16/18 94 12:00 09/16/18 18 158/74 95 Room Air 11:30 (102) 09/15/18 30 23:15 09/14/18 3.0 00:30 Intake and Output 09/15/18 09/15/18 09/16/18 1515:00 23:00 07:00 IntakeIntake Total 1300 ml 650 ml OutputOutput Total 2780 ml 1200 ml BalanceBalance -1480 ml -550 ml Exam Constitutional: alert, oriented, obese, febrile Head: atraumatic, normocephalic Neck: non-tender, supple Respiratory: clear to auscultation, diminished Cardiovascular: regular rate and rhythm Gastrointestinal: S/ NT / ND / +BS Extremities: no edema, good radial pulses Medications Medications Current Medications Lorazepam (Ativan) 0.5 mg Q8H PRN PO ANXIETY; Start 09/13/18 at 12:30 Ondansetron HCl (Zofran Inj) 4 mg Q6H PRN IV NAUSEA AND/OR VOMITING Last administered on 09/15/18 22:39; Admin Dose 4 MG; Start 09/13/18 at 12:30 Nitroglycerin (Nitroglycerin (Sl Tab) 0.4 Mg) 1 tab Q5M PRN SL CHEST PAIN; Start 09/13/18 at 12:30 Acetaminophen (Tylenol Tab) 650 mg Q6H PRN PO PAIN LEVEL 1-3 OR FEVER Last administered on 09/16/18 10:53; Admin Dose 650 MG; Start 09/13/18 at 12:30 Morphine Sulfate (morphine) 2 mg Q4H PRN IV SEVERE PAIN LEVEL 7-10 Last administered on 09/16/18 11:17; Admin Dose 2 MG; Start 09/13/18 at 13:00 Zolpidem Tartrate (Ambien) 5 mg QHS PRN PO INSOMNIA Last administered on 09/14/18 22:38; Admin Dose 5 MG; Start 09/13/18 at 12:30 Docusate Sodium (Colace) 100 mg Q12H PO Last administered on 09/16/18 12:14; Admin Dose 100 MG; Start 09/13/18 at 12:30 Famotidine (Pepcid) 20 mg Q12 PO Last administered on 09/16/18 08:53; Admin Dose 20 MG; Start 09/13/18 at 21:00 Apixaban (Eliquis) 2.5 mg BID PO Last administered on 09/16/18 08:54; Admin Dose 2.5 MG; Start 09/13/18 at 21:00 Atorvastatin Calcium (Lipitor) 80 mg QHS PO Last administered on 09/15/18 20:32; Admin Dose 80 MG; Start 09/13/18 at 21:00 Cholecalciferol (Vitamin D) 2,000 unit DAILY PO Last administered on 09/16/18 08:53; Admin Dose 2,000 UNIT; Start 09/14/18 at 09:00 EZETIMIBE (Zetia) 10 mg HS PO Last administered on 09/15/18at 20:25; Admin Dose 10 MG; Start 09/13/18 at 21:00 Insulin Glargine (Lantus) 30 units QHS SC Last administered on 09/15/18at 20:27; Admin Dose 30 UNITS; Start 09/13/18 at 21:00 Isosorbide Mononitrate (Imdur) 30 mg DAILY PO Last administered on 09/16/18at 08:53; Admin Dose 30 MG; Start 09/14/18 at 09:00 Spironolactone (Aldactone) 25 mg DAILY PO Last administered on 09/16/18at 08:53; Admin Dose 25 MG; Start 09/14/18 at 09:00 Insulin Aspart (Novolog Insulin Pen) 10 unit WITH MEALS SC Last administered on 09/16/18at 12:23; Admin Dose 10 UNIT; Start 09/13/18 at 18:00 Miscellaneous Information 1 ea NOTE XX ; Start 09/13/18 at 13:00 Glucose (Glutose) 15 gm Q15M PRN PO DECREASED GLUCOSE; Start 09/13/18 at 13:00 Glucose (Glutose) 22.5 gm Q15M PRN PO DECREASED GLUCOSE; Start 09/13/18 at 13:00 Dextrose (D50w Syringe) 25 ml Q15M PRN IV DECREASED GLUCOSE; Start 09/13/18 at 13:00 Dextrose (D50w Syringe) 50 ml Q15M PRN IV DECREASED GLUCOSE; Start 09/13/18 at 13:00 Glucagon (Glucagen) 1 mg Q15M PRN IM DECREASED GLUCOSE; Start 09/13/18 at 13:00 Glucose (Glutose) 15 gm Q15M PRN BUCCAL DECREASED GLUCOSE; Start 09/13/18 at 13:00 Acetaminophen/ Hydrocodone Bitart ([place] (5/325)) 1 tab Q4H PRN PO MODERATE PAIN LEVEL 4-6; Start 09/13/18 at 13:00 Epoetin [place] (Epogen (Non Esrd/Non Oncology)) 6,000 units TuThSa@17 SC Last administered on 09/14/18at 17:00; Admin Dose 6,000 UNITS; Start 09/14/18 at 17:00 Sevelamer Carbonate (Renvela) 800 mg WITH MEALS PO Last administered on 09/16/18 12:14; Admin Dose 800 MG; Start 09/14/18 at 08:00 Hydralazine HCl (Apresoline) 100 mg BID PO Last administered on 09/16/18 08:54; Admin Dose 100 MG; Start 09/14/18 at 21:00 Losartan Potassium (Cozaar) 25 mg QHS PO Last administered on 09/15/18 20:32; Admin Dose 25 MG; Start 09/14/18 at 21:00 Bumetanide (Bumex) 1 mg BID DIURETICS IV Last administered on 09/15/18 05:06; Admin Dose 1 MG; Start 09/15/18 at 06:00 Carvedilol (Coreg) 12.5 mg BID PO Last administered on 09/16/18 08:54; Admin Dose 12.5 MG; Start 09/15/18 at 21:00 Doxazosin Mesylate (Cardura) 2 mg HS PO Last administered on 09/15/18 20:32; Admin Dose 2 MG; Start 09/15/18 at 21:00 Isosorbide Dinitrate (Isordil) 40 mg TID PO Last administered on 09/16/18 12:14; Admin Dose 40 MG; Start 09/15/18 at 13:00 Levofloxacin/ Dextrose 100 ml @ 100 mls/hr Q24H IVPB Last administered on 09/15/18 23:26; Admin Dose 100 MLS/HR; Start 09/15/18 at 22:30 Hydralazine HCl (Apresoline) 10 mg Q6H PRN IV ELEVATED SYSTOLIC BP Last administered on 09/16/18 10:54; Admin Dose 10 MG; Start 09/16/18 at 11:00 Oseltamivir Phosphate (Tamiflu) 75 mg DAILY PO ; Start 09/16/18 at 13:00 Imaging Imaging 2D echo Conclusions Normal left ventricular systolic function. Normal left ventricular cavity size. Moderate concentric left ventricular hypertrophy. Ejection fraction is visually estimated at 55 %. Tissue Doppler/Mitral Doppler indices are consistent with pseudonormalization with mildly elevated left atrial pressure (Stage II diastolic dysfunction). There is severe enlargement of left atrium. Mild mitral leaflet calcification. Mild mitral annular calcification. Trace mitral regurgitation. No significant aortic stenosis or insufficiency. Aortic cusps appear mildly calcified. Trace aortic valve regurgitation. Normal appearance of the tricuspid valve. Estimated peak PA systolic pressure 29 mmHg. There is mild tricuspid regurgitation. Trivial to small pericardial effusion. Electronically Signed By: Willy Sanon 13-Sep-2018 19:25:33 -0800 Patient Name: TOSHIA TOTH Study Date: 13-Sep-2018 LEXII REED Sep 16, 2018 15:23
[2018-09-16] MEDS: OSELTAMIVIR 75 MG CAP PO SCH (16:11)
[2018-09-16] MEDS: NIFEdipine (XL) 30 MG TAB PO SCH ×2 (17:04→20:23)
[2018-09-16] MEDS: BUMETANIDE 1 MG INJ IV SCH (17:33)
--- NOTE | 2018-09-16 18:00 | NUR ---
VANCOMYCIN PER RX S/O: 43 y/o M to be started on Vanco and Cefepime vs fever and r/o sepsis. Ht: 5'7" Wt; 114 kg Bun/Cr: 87/3.79 Tm 102.6 A/P: 1) Fever 2) Renal Failure 3) Will start Vanco 2 gm today after blood transfusion, then per level
[2018-09-16] MEDS: POLYETHYLENE GLYCOL 17 GM PACKET PO SCH (19:00)
[2018-09-16] MEDS: CEFEPIME 1GM/50 ML (PMX) 50 ML IVPB SCH (19:02)
--- NOTE | 2018-09-16 19:20 | NUR ---
EOSS pt is alert and orientedx4, on room air, stable pt continues to spike fevers and have high bp throughout the day Dr. Perez aware pt does not want ice packs because he states he is cold he continues to put blankets on himself despite education that his temp is high hourly rounding done another set of blood cx ordered and collected blood transfusion ongoing endorse to oncoming shift
[2018-09-16] MEDS ORDERED: VANCOMYCIN HCL 2 GM in SOD CHLORIDE 0.9% 500 ML IVPB SCH (20:00)
[2018-09-16] MEDS: ATORVASTATIN 80 MG TAB PO SCH (20:20)
[2018-09-16] MEDS: EZETIMIBE 10 MG TAB PO SCH (20:21)
[2018-09-16] MEDS: LOSARTAN 25 MG TAB PO SCH (20:22)
[2018-09-16] MEDS: DOXAZOSIN 2 MG TAB PO SCH (20:22)
--- NOTE | 2018-09-16 20:36 | NUR ---
RN NOTE PATIENT RUNNING A FEVER, HAS NOT EATEN ALL DAY, NO APPETITE FOR NOW, BLOOD GLUCOSE 63, DR. MO NOTIFIED AND ORDERED TO HOLD LANTUS 30 UNITS SC. WILL CONTINUE TO MONITOR PATIENT'S BLOOD GLUCOSE IN 15 MINUTES UNTIL IT GETS TO GREATER THAN 80 X 2 PER PROTOCOL.
[2018-09-16] MEDS: INSULIN GLARGINE [LANTus] (100 UNITS/ML) SYG SC SCH (20:40)
[2018-09-16] MEDS: ONDANSETRON 4 MG INJ IV PRN (21:16)
[2018-09-17] VITALS (15 sets, daily range): BP systolic 113–149; BP diastolic 58–70; PULSE 75–98; RESP 18–20
[2018-09-17] MEDS: DOCUSATE SODIUM 100 MG CAP PO SCH ×3 (00:35→23:39)
[2018-09-17] MEDS: ACETAMINOPHEN 325 MG TAB PO PRN ×2 (02:29→17:59)
[2018-09-17] MEDS ORDERED: ACETAMINOPHEN 325 MG TAB PO ONE (03:08)
[2018-09-17] MEDS: BUMETANIDE 1 MG INJ IV SCH ×2 (06:19→17:21)
--- NOTE | 2018-09-17 06:51 | NUR ---
RN END OF SHIFT NOTE PATIENT ALERT AND ORIENTED X 4, SLEPT WELL, BUT CONTINUED TO SPIKE FEVERS, AND CXR TAKEN YESTERDAY SHOWED RIGHT BASE INTERSTITIAL ALVEOLAR AIR SPACE DISEASE SUGGESTIVE OF PNEUMONIA. DR. MO NOTIFIED AND NO NEW ORDERS WERE GIVEN. PATIENT ALREADY ON ANTIBIOTICS. BED IN THE LOWEST POSITION WITH BRAKES ENGAGED, HOURLY ROUNDING AND BED ALARM IN PLACE. WILL CONTINUE TO MONITOR PATIENT'S TEMPERATURE. WILL ENDORSE TO DAY SHIFT RN.
[2018-09-17] MEDS: OSELTAMIVIR 75 MG CAP PO SCH (08:30)
[2018-09-17] MEDS: NIFEdipine (XL) 30 MG TAB PO SCH ×2 (08:31→20:17)
[2018-09-17] MEDS: ISOSORBIDE MONONITRATE(SR)30 MG TAB PO SCH (08:31)
[2018-09-17] MEDS: SEVELAMER CARBONATE 800 MG TABLET PO SCH ×3 (08:31→17:21)
[2018-09-17] MEDS: ISOSORBIDE DINITRATE 20 MG TAB PO SCH ×3 (08:31→20:18)
[2018-09-17] MEDS: SPIRONOLACTONE 25 MG TAB PO SCH (08:31)
[2018-09-17] MEDS: APIXABAN 5 MG TABLET PO SCH ×2 (08:32→20:19)
[2018-09-17] MEDS: FAMOTIDINE 20 MG TAB PO SCH ×2 (08:33→20:19)
[2018-09-17] MEDS: POLYETHYLENE GLYCOL 17 GM PACKET PO SCH (08:33)
[2018-09-17] MEDS: CHOLECALCIFEROL 1,000 UNIT TAB PO SCH (08:33)
[2018-09-17] MEDS: INSULIN ASPART [NOVOLOG] 3 ML PEN SC SCH ×3 (08:59→17:38)
--- NOTE | 2018-09-17 10:55 | PN ---
Date/Time of Note Date/Time of Note DATE: 09/17/18 TIME: 10:53 Assessment/Plan VTE Prophylaxis Risk score (from Nsg)>0 risk: 5 Pharmacological prophylaxis: apixaban Lines/Catheters IV Catheter Type (from Nrsg): Peripheral IV Urinary Cath still in place: No Assessment/Plan Result Diagram: 09/17/18 0513 09/17/18 0513 Results 24hrs Laboratory Tests Test 09/16/18 12:12 09/16/18 17:30 09/16/18 20:26 09/16/18 20:48 Bedside Glucose 88 95 63 L 71 Test 09/16/18 21:10 09/16/18 22:04 09/17/18 02:19 09/17/18 05:13 Bedside Glucose 82 87 85 White Blood Count 8.4 # Red Blood Count 2.90 L Hemoglobin 8.0 L Hematocrit 24.8 L Mean Corpuscular 85.5 Volume Mean Corpuscular 27.6 L Hemoglobin Mean Corpuscular 32.3 Hemoglobin Concen t Red Cell 13.0 Distribution Width Platelet Count 157 Mean Platelet 11.5 H Volume Immature 0.400 Granulocytes % Neutrophils % 79.9 H Lymphocytes % 6.0 L Monocytes % 12.2 H Eosinophils % 1.1 Basophils % 0.4 Nucleated Red 0.0 Blood Cells % Immature 0.030 Granulocytes # Neutrophils # 6.7 Lymphocytes # 0.5 L Monocytes # 1.0 H Eosinophils # 0.1 Basophils # 0.0 Nucleated Red 0.0 Blood Cells # Sodium Level 135 Potassium Level 4.5 Chloride Level 101 Carbon Dioxide 23 Level Anion Gap 11 Blood Urea 87 H Nitrogen Creatinine 4.42 H Est Glomerular 15 L Filtrat Rate mL/min Glucose Level 109 Calcium Level 8.6 Test 09/17/18 07:45 09/17/18 08:01 Lab Scanned BLOOD TRANSFUSIO Report N Bedside Glucose 105 Subjective 24 Hr Interval Summary Free Text/Dictation s: o: Constitutional: alert, oriented, obese, Head: atraumatic, normocephalic Neck: non-tender, supple Respiratory: clear to auscultation, diminished Cardiovascular: regular rate and rhythm Gastrointestinal: S/ NT / ND / +BS Extremities: no edema, good radial pulses A/P: A 43-year-old male who presented with shortness of breath and bilateral lower extremity edema and managed as follows: 1. s/p Congestive heart failure exacerbation. Diastolic -Last echo showed ejection fraction of 60%, but abnormal diastolic function. -compensated, cardio managing, appreciate input 2. Acute on chronic kidney disease stage IV. -nephro managing, losartan on hold -cr levels holding steady, monitor 3. Anemia of chronic kidney disease. -hgb continues to drop despite epogen -transfuse for hgb 6.9 -check Stool OB, -?hold eliquis 4. Paroxysmal atrial fibrillation. -patient continued on eliquis BID -remains in sinus with good rate control 5. Diabetes mellitus with suboptimal home control, -A1C likely unreliable in this patient with severe anemia -improved inpatient control, continue current regimen and titrate as indicated 6. Morbid obesity. -currently on calorie controlled diet -diet and exercise counselling re-inforced 7. Substance abuse / Cocaine use. -Cessation Therapy: Pt. was counselled for greater than 3 minutes on the health risks of continued abuse and the benefits of cessation, this will continue to be reinforced throughout hospitalization. -SW to provide resources 8. Sepsis 2/2 staph aureus bacteremia -Blood cultures are growing staph aureus, no clear source, I have concern for endocarditis. -The patient is status post TTE that showed no vegetations, but may require JAVIER. Will get ID consult, will also speak with cardiology -Continue broad-spectrum antibiotics, follow-up repeat cultures, continue antipyretics as needed 9. History of pleural effusion, status post thoracentesis in the past. 10. Chronic dyslipidemia. -continue statin 11. Elevated TSH -Will get repeat levels and also check free to T3 and free T4 and intervene as indicated 12. Mild iron deficiency with low iron saturation -We will give short course of intravenous iron replacement, stool occult blood testing is pending to rule out chronic blood loss 13. Mild rhabdomyolysis -Likely secondary to febrile illness, trend levels still normal. Dispo: Plan of care as above, remain inpatient and await clinical improvement. Patient may need long-term antibiotics if he has endocarditis and is not a PICC line candidate due to history of drug use. Exam/Review of Systems Vital Signs Vitals Vital Signs Date Temp Pulse Resp B/P (MAP) Pulse Ox O2 O2 Flow FiO2 Time Delivery Rate 09/17/18 78 08:00 09/17/18 98.4 20 113/62 93 Room Air 07:28 (79) 09/17/18 30 02:15 1/19/19 3.0 00:30 Intake and Output 09/16/18 09/16/18 09/17/18 1515:00 23:00 07:00 IntakeIntake Total 850 ml 650 ml OutputOutput Total 1100 ml 1725 ml BalanceBalance -250 ml -1075 ml Medications Medications Current Medications Lorazepam (Ativan) 0.5 mg Q8H PRN PO ANXIETY; Start 09/13/18 at 12:30 Ondansetron HCl (Zofran Inj) 4 mg Q6H PRN IV NAUSEA AND/OR VOMITING Last administered on 09/16/18 21:16; Admin Dose 4 MG; Start 09/13/18 at 12:30 Nitroglycerin (Nitroglycerin (Sl Tab) 0.4 Mg) 1 tab Q5M PRN SL CHEST PAIN; Start 09/13/18 at 12:30 Acetaminophen (Tylenol Tab) 650 mg Q6H PRN PO PAIN LEVEL 1-3 OR FEVER Last administered on 09/17/18 02:29; Admin Dose 650 MG; Start 09/13/18 at 12:30 Morphine Sulfate (morphine) 2 mg Q4H PRN IV SEVERE PAIN LEVEL 7-10 Last administered on 09/16/18 11:17; Admin Dose 2 MG; Start 09/13/18 at 13:00 Zolpidem Tartrate (Ambien) 5 mg QHS PRN PO INSOMNIA Last administered on 09/14/18 22:38; Admin Dose 5 MG; Start 09/13/18 at 12:30 Docusate Sodium (Colace) 100 mg Q12H PO Last administered on 09/17/18 00:35; Admin Dose 100 MG; Start 09/13/18 at 12:30 Famotidine (Pepcid) 20 mg Q12 PO Last administered on 09/17/18 08:33; Admin Dose 20 MG; Start 09/13/18 at 21:00 Apixaban (Eliquis) 2.5 mg BID PO Last administered on 09/17/18 08:32; Admin Dose 2.5 MG; Start 09/13/18 at 21:00 Atorvastatin Calcium (Lipitor) 80 mg QHS PO Last administered on 09/16/18 20:20; Admin Dose 80 MG; Start 09/13/18 at 21:00 Cholecalciferol (Vitamin D) 2,000 unit DAILY PO Last administered on 09/17/18at 08:33; Admin Dose 2,000 UNIT; Start 09/14/18 at 09:00 EZETIMIBE (Zetia) 10 mg HS PO Last administered on 09/16/18at 20:21; Admin Dose 10 MG; Start 09/13/18 at 21:00 Insulin Glargine (Lantus) 30 units QHS SC Last administered on 09/15/18at 20:27; Admin Dose 30 UNITS; Start 09/13/18 at 21:00 Isosorbide Mononitrate (Imdur) 30 mg DAILY PO Last administered on 09/17/18 08:31; Admin Dose 30 MG; Start 09/14/18 at 09:00 Spironolactone (Aldactone) 25 mg DAILY PO Last administered on 09/17/18 08:31; Admin Dose 25 MG; Start 09/14/18 at 09:00 Insulin Aspart (Novolog Insulin Pen) 10 unit WITH MEALS SC Last administered on 09/17/18at 08:59; Admin Dose 10 UNIT; Start 09/13/18 at 18:00 Miscellaneous Information 1 ea NOTE XX ; Start 09/13/18 at 13:00 Glucose (Glutose) 15 gm Q15M PRN PO DECREASED GLUCOSE; Start 09/13/18 at 13:00 Glucose (Glutose) 22.5 gm Q15M PRN PO DECREASED GLUCOSE; Start 09/13/18 at 13:00 Dextrose (D50w Syringe) 25 ml Q15M PRN IV DECREASED GLUCOSE; Start 09/13/18 at 13:00 Dextrose (D50w Syringe) 50 ml Q15M PRN IV DECREASED GLUCOSE; Start 09/13/18 at 13:00 Glucagon (Glucagen) 1 mg Q15M PRN IM DECREASED GLUCOSE; Start 09/13/18 at 13:00 Glucose (Glutose) 15 gm Q15M PRN BUCCAL DECREASED GLUCOSE; Start 09/13/18 at 13:00 Acetaminophen/ Hydrocodone Bitart ([place] (5/325)) 1 tab Q4H PRN PO MODERATE PAIN LEVEL 4-6; Start 09/13/18 at 13:00 Epoetin [place] (Epogen (Non Esrd/Non Oncology)) 6,000 units TuThSa@17 SC Last administered on 09/14/18 17:00; Admin Dose 6,000 UNITS; Start 09/14/18 at 17:00 Sevelamer Carbonate (Renvela) 800 mg WITH MEALS PO Last administered on 09/17/18 08:31; Admin Dose 800 MG; Start 09/14/18 at 08:00 Hydralazine HCl (Apresoline) 100 mg BID PO Last administered on 09/17/18 08:34; Admin Dose 100 MG; Start 09/14/18 at 21:00 Losartan Potassium (Cozaar) 25 mg QHS PO Last administered on 09/16/18 20:22; Admin Dose 25 MG; Start 09/14/18 at 21:00 Bumetanide (Bumex) 1 mg BID DIURETICS IV Last administered on 09/17/18 06:19; Admin Dose 1 MG; Start 09/15/18 at 06:00 Doxazosin Mesylate (Cardura) 2 mg HS PO Last administered on 09/16/18 20:22; Admin Dose 2 MG; Start 09/15/18 at 21:00 Isosorbide Dinitrate (Isordil) 40 mg TID PO Last administered on 09/17/18 08:31; Admin Dose 40 MG; Start 09/15/18 at 13:00 Hydralazine HCl (Apresoline) 10 mg Q6H PRN IV ELEVATED SYSTOLIC BP Last administered on 09/16/18 18:09; Admin Dose 10 MG; Start 09/16/18 at 11:00 Oseltamivir Phosphate (Tamiflu) 75 mg DAILY PO Last administered on 09/17/18 08:30; Admin Dose 75 MG; Start 09/16/18 at 13:00 Cefepime HCl 50 ml @ 100 mls/hr Q24H IVPB Last administered on 09/16/18 19:02; Admin Dose 100 MLS/HR; Start 09/16/18 at 16:00 Vancomycin HCl (Vanco Iv Per Pharmacy) VANCOMYCIN PER PHARMACY PER PROTOCOL XX ; Start 09/16/18 at 15:30 Nifedipine (Procardia Xl) 30 mg BID PO Last administered on 09/17/18 08:31; Admin Dose 30 MG; Start 09/16/18 at 16:30 Polyethylene Glycol (Miralax) 17 gm DAILY PO Last administered on 1/22/19at 08:33; Admin Dose 17 GM; Start 09/16/18 at 19:00 LEXII REED Sep 17, 2018 10:55
--- NOTE | 2018-09-17 11:12 | CONS ---
Date/Time of Note Date/Time of Note DATE: 09/17/18 TIME: 11:10 Assessment/Plan Assessment/Plan Assessment/Plan 1. Congestive heart failure. The patient has heart failure exacerbation, diastolic, acute on chronic. The patient is in better fluid status - will keep euvolemic now. Cr high - might be heading toward Hd - DR. Valencia Pascual follows. CRgoing up, but still with urine output - defer diuresis to renal team. 2. Hypertension. Blood pressure on the high side. Continue to treat medically as tolerated. Renal team follows. BETTER now. 3. Atrial fibrillation, paroxysmal. The patient is in sinus rhythm now. Will monitor on tele. TREATED. Rate controlled. 4. Hypercoagulable state. The patient is on Eliquis and dose adjusted to the rate which is appropriate. 5. History of pleural effusion. Defer to pulmonary team. 6. ARF - advanced, ARF on CRF likely - avoid nephrotoxic meds.Cr going up - might be heading toward HD. 7. Fever - primary team will follow. Result Diagram: 09/17/18 0513 09/17/18 0513 Results 24hrs Laboratory Tests Test 09/16/18 12:12 09/16/18 17:30 09/16/18 20:26 09/16/18 20:48 Bedside Glucose 88 95 63 L 71 Test 09/16/18 21:10 09/16/18 22:04 09/17/18 02:19 09/17/18 05:13 Bedside Glucose 82 87 85 White Blood Count 8.4 # Red Blood Count 2.90 L Hemoglobin 8.0 L Hematocrit 24.8 L Mean Corpuscular 85.5 Volume Mean Corpuscular 27.6 L Hemoglobin Mean Corpuscular 32.3 Hemoglobin Concen t Red Cell 13.0 Distribution Width Platelet Count 157 Mean Platelet 11.5 H Volume Immature 0.400 Granulocytes % Neutrophils % 79.9 H Lymphocytes % 6.0 L Monocytes % 12.2 H Eosinophils % 1.1 Basophils % 0.4 Nucleated Red 0.0 Blood Cells % Immature 0.030 Granulocytes # Neutrophils # 6.7 Lymphocytes # 0.5 L Monocytes # 1.0 H Eosinophils # 0.1 Basophils # 0.0 Nucleated Red 0.0 Blood Cells # Sodium Level 135 Potassium Level 4.5 Chloride Level 101 Carbon Dioxide 23 Level Anion Gap 11 Blood Urea 87 H Nitrogen Creatinine 4.42 H Est Glomerular 15 L Filtrat Rate mL/min Glucose Level 109 Calcium Level 8.6 Test 09/17/18 07:45 09/17/18 08:01 Lab Scanned BLOOD TRANSFUSIO Report N Bedside Glucose 105 Consultation Date/Type/Reason Admit Date/Time Sep 13, 2018 at 08:45 Initial Consult Date 09/13/18 Requesting Provider: LEXII REED 24 HR Interval Summary Free Text/Dictation NO acute events- some diuresis - but overall increased fluidsatus - no CP now - renal team follows. ROS: No fever, + chills, no nausea, no vomiting, no diarrhea/constipation No recent weight changes No chest pain, no PND, no orthopnea + edema,+ SOB No dizziness, blurred vision No thirst, no heat or cold intolerance Exam/Review of Systems Vital Signs Vitals Vital Signs Date Temp Pulse Resp B/P (MAP) Pulse Ox O2 O2 Flow FiO2 Time Delivery Rate 09/17/18 78 08:00 09/17/18 98.4 20 113/62 93 Room Air 07:28 (79) 09/17/18 30 02:15 09/14/18 3.0 00:30 Intake and Output 09/16/18 09/16/18 09/17/18 1515:00 23:00 07:00 IntakeIntake Total 850 ml 650 ml OutputOutput Total 1100 ml 1725 ml BalanceBalance -250 ml -1075 ml Exam General: WN/WD/NAD, AOx 3 HEENT: Unicetric/atraumatic/EOMI (not follow commands) NECK: JVD elevated 9 cm , no thyromegaly Lymph: no lymphadenopathy HEART: regular with no S3, II/ systolic murmur at apex LUNGS: Coarse sounds ABD: soft, NT, ND, +BS : Intact Neuro: non focal SKIN: chronic changes EXT: increased edema Medications Medications Current Medications Lorazepam (Ativan) 0.5 mg Q8H PRN PO ANXIETY; Start 09/13/18 at 12:30 Ondansetron HCl (Zofran Inj) 4 mg Q6H PRN IV NAUSEA AND/OR VOMITING Last administered on 09/16/18at 21:16; Admin Dose 4 MG; Start 09/13/18 at 12:30 Nitroglycerin (Nitroglycerin (Sl Tab) 0.4 Mg) 1 tab Q5M PRN SL CHEST PAIN; Start 09/13/18 at 12:30 Acetaminophen (Tylenol Tab) 650 mg Q6H PRN PO PAIN LEVEL 1-3 OR FEVER Last administered on 09/17/18 02:29; Admin Dose 650 MG; Start 09/13/18 at 12:30 Morphine Sulfate (morphine) 2 mg Q4H PRN IV SEVERE PAIN LEVEL 7-10 Last administered on 09/16/18 11:17; Admin Dose 2 MG; Start 09/13/18 at 13:00 Zolpidem Tartrate (Ambien) 5 mg QHS PRN PO INSOMNIA Last administered on 09/14/18 22:38; Admin Dose 5 MG; Start 09/13/18 at 12:30 Docusate Sodium (Colace) 100 mg Q12H PO Last administered on 09/17/18 00:35; Admin Dose 100 MG; Start 09/13/18 at 12:30 Famotidine (Pepcid) 20 mg Q12 PO Last administered on 09/17/18 08:33; Admin Dose 20 MG; Start 09/13/18 at 21:00 Apixaban (Eliquis) 2.5 mg BID PO Last administered on 09/17/18 08:32; Admin Dose 2.5 MG; Start 09/13/18 at 21:00 Atorvastatin Calcium (Lipitor) 80 mg QHS PO Last administered on 09/16/18 20:20; Admin Dose 80 MG; Start 09/13/18 at 21:00 Cholecalciferol (Vitamin D) 2,000 unit DAILY PO Last administered on 09/17/18 08:33; Admin Dose 2,000 UNIT; Start 09/14/18 at 09:00 EZETIMIBE (Zetia) 10 mg HS PO Last administered on 09/16/18 20:21; Admin Dose 10 MG; Start 09/13/18 at 21:00 Insulin Glargine (Lantus) 30 units QHS SC Last administered on 09/15/18 20:27; Admin Dose 30 UNITS; Start 09/13/18 at 21:00 Isosorbide Mononitrate (Imdur) 30 mg DAILY PO Last administered on 09/17/18 08:31; Admin Dose 30 MG; Start 09/14/18 at 09:00 Spironolactone (Aldactone) 25 mg DAILY PO Last administered on 09/17/18 08:31; Admin Dose 25 MG; Start 09/14/18 at 09:00 Insulin Aspart (Novolog Insulin Pen) 10 unit WITH MEALS SC Last administered on 09/17/18at 08:59; Admin Dose 10 UNIT; Start 09/13/18 at 18:00 Miscellaneous Information 1 ea NOTE XX ; Start 09/13/18 at 13:00 Glucose (Glutose) 15 gm Q15M PRN PO DECREASED GLUCOSE; Start 09/13/18 at 13:00 Glucose (Glutose) 22.5 gm Q15M PRN PO DECREASED GLUCOSE; Start 09/13/18 at 13:00 Dextrose (D50w Syringe) 25 ml Q15M PRN IV DECREASED GLUCOSE; Start 09/13/18 at 13:00 Dextrose (D50w Syringe) 50 ml Q15M PRN IV DECREASED GLUCOSE; Start 09/13/18 at 13:00 Glucagon (Glucagen) 1 mg Q15M PRN IM DECREASED GLUCOSE; Start 09/13/18 at 13:00 Glucose (Glutose) 15 gm Q15M PRN BUCCAL DECREASED GLUCOSE; Start 09/13/18 at 13:00 Acetaminophen/ Hydrocodone Bitart ([place] (5/325)) 1 tab Q4H PRN PO MODERATE PAIN LEVEL 4-6; Start 09/13/18 at 13:00 Epoetin [place] (Epogen (Non Esrd/Non Oncology)) 6,000 units TuThSa@17 SC Last administered on 09/14/18at 17:00; Admin Dose 6,000 UNITS; Start 09/14/18 at 17:00 Sevelamer Carbonate (Renvela) 800 mg WITH MEALS PO Last administered on 09/17/18 08:31; Admin Dose 800 MG; Start 09/14/18 at 08:00 Hydralazine HCl (Apresoline) 100 mg BID PO Last administered on 09/17/18 08:34; Admin Dose 100 MG; Start 09/14/18 at 21:00 Losartan Potassium (Cozaar) 25 mg QHS PO Last administered on 09/16/18at 20:22; Admin Dose 25 MG; Start 09/14/18 at 21:00 Bumetanide (Bumex) 1 mg BID DIURETICS IV Last administered on 09/17/18 06:19; Admin Dose 1 MG; Start 09/15/18 at 06:00 Doxazosin Mesylate (Cardura) 2 mg HS PO Last administered on 09/16/18 20:22; Admin Dose 2 MG; Start 09/15/18 at 21:00 Isosorbide Dinitrate (Isordil) 40 mg TID PO Last administered on 09/17/18 08:31; Admin Dose 40 MG; Start 09/15/18 at 13:00 Hydralazine HCl (Apresoline) 10 mg Q6H PRN IV ELEVATED SYSTOLIC BP Last administered on 09/16/18 18:09; Admin Dose 10 MG; Start 09/16/18 at 11:00 Oseltamivir Phosphate (Tamiflu) 75 mg DAILY PO Last administered on 09/17/18 08:30; Admin Dose 75 MG; Start 09/16/18 at 13:00 Cefepime HCl 50 ml @ 100 mls/hr Q24H IVPB Last administered on 09/16/18 19:02; Admin Dose 100 MLS/HR; Start 09/16/18 at 16:00 Vancomycin HCl (Vanco Iv Per Pharmacy) VANCOMYCIN PER PHARMACY PER PROTOCOL XX ; Start 09/16/18 at 15:30 Nifedipine (Procardia Xl) 30 mg BID PO Last administered on 09/17/18 08:31; Admin Dose 30 MG; Start 09/16/18 at 16:30 Polyethylene Glycol (Miralax) 17 gm DAILY PO Last administered on 09/17/18 08:33; Admin Dose 17 GM; Start 09/16/18 at 19:00 DELIA BILLY MD Sep 17, 2018 11:12
--- NOTE | 2018-09-17 11:30 | NUR ---
SW: SUBSTANCE ABUSE SW met with this 43-year-old Syrian/ Arabic speaking male at bedside for substance abuse. Patient states that he currently lives with his parents at [address] [place], [place] [address], [place] [address]. States he is disabled and receives SSI benefits. States he is recipient of [employer] and receives 50 hours a month. States that his mother is his IH[employer] provider and primary mode of transportation. He denies having an AHCD, and he verbally designated his mother Gracia Wilson ([phone]) and his Citlalli ([phone]) as surrogate spokespersons. Patient states he is and states that his goes and comes, as he lives with his parents. Substance abuse: Patient reports using cocaine 1x a week. States that he has tried to go to rehab in the past, but the rehab did not accept him because his cocaine use was "not a problem, according to the rehab." Patient states that he only uses 1x a week, and denies any other drug or substance use/ abuse. Patient declined any / all substance abuse resources. Mental Health: Patient denies any history of anxiety, depression or mental illness. Denies any past/ present thoughts, ideations or plans of suicide/ homicide. Patient denies any questions or concerns at this time. Torpedo Specialist remains available as needed throughout patient's treatment process.
--- NOTE | 2018-09-17 12:12 | NUR ---
Nurse note pt continues to have low grade fever latest 99.6 reinforced to the pt that he needs to take his blankets off but he states he is very cold he is also refusing ice packs due to it being too cold Dr. Perez aware pt states he will take a cold shower at 1300 after lunch
--- NOTE | 2018-09-17 12:19 | CONS ---
Assessment/Plan Assessment/Plan Assessment/Plan 1.Acute kidney injury on CKD III due to hemodynamics from CHF 2. acute CHF exacerbation, acute on chronic, diastolic, with fluid overload and pulmonary congestion with anasarca 3. 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 H/o HTN 5. LE edema/anasarca 6. HL 7. Anemia of chronic kidney disease Plan: BUN/Cr 87/4.42 leg edema improving, stop spironolactone and losartan due to rising Cr, will continue Bumex 1mg IV BID , albumin 25% 100ml IV Q 8 hr x 3 doses Hb dropped to 6.9-1. s/p PRBC trnasfusion, now Hb 8.0- on epogen 6000 units SQ TTS for anemia, prn transfusion Continue Renvela 800mg TID for hyperphosphatemia - monitor electrolytes and replace aggressively Renal US on previous visit- unremarkable, Kidney size R 12.0, left 11.2 cm, normal echogenicity on last visit Nifedipine 60mg BID , Coreg 6.25mg PO BID, Hydralazine 100mg PO TID [facility] Result Diagram: 09/17/18 0513 09/17/18 0513 Results 24hrs Laboratory Tests Test 09/16/18 17:30 09/16/18 20:26 09/16/18 20:48 09/16/18 21:10 Bedside Glucose 95 63 L 71 82 Test 09/16/18 22:04 09/17/18 02:19 09/17/18 05:13 09/17/18 07:45 Bedside Glucose 87 85 White Blood Count 8.4 # Red Blood Count 2.90 L Hemoglobin 8.0 L Hematocrit 24.8 L Mean Corpuscular 85.5 Volume Mean Corpuscular 27.6 L Hemoglobin Mean Corpuscular 32.3 Hemoglobin Concen t Red Cell 13.0 Distribution Width Platelet Count 157 Mean Platelet 11.5 H Volume Immature 0.400 Granulocytes % Neutrophils % 79.9 H Lymphocytes % 6.0 L Monocytes % 12.2 H Eosinophils % 1.1 Basophils % 0.4 Nucleated Red 0.0 Blood Cells % Immature 0.030 Granulocytes # Neutrophils # 6.7 Lymphocytes # 0.5 L Monocytes # 1.0 H Eosinophils # 0.1 Basophils # 0.0 Nucleated Red 0.0 Blood Cells # Sodium Level 135 Potassium Level 4.5 Chloride Level 101 Carbon Dioxide 23 Level Anion Gap 11 Blood Urea 87 H Nitrogen Creatinine 4.42 H Est Glomerular 15 L Filtrat Rate mL/min Glucose Level 109 Calcium Level 8.6 Lab Scanned BLOOD TRANSFUSIO Report N Test 09/17/18 08:01 09/17/18 12:00 Bedside Glucose 105 149 Consultation Date/Type/Reason Admit Date/Time Sep 13, 2018 at 08:45 Initial Consult Date 09/13/18 Type of Consult NEPHROLOGY Requesting Provider: LEXII REED 24 HR Interval Summary Free Text/Dictation BUN/Cr 87/4.42, leg edema improving, BP stable Exam/Review of Systems Vital Signs Vitals Vital Signs Date Temp Pulse Resp B/P (MAP) Pulse Ox O2 O2 Flow FiO2 Time Delivery Rate 09/17/18 99.3 79 18 122/58 94 Room Air 11:20 (79) Nasal Cannula 09/17/18 30 02:15 09/14/18 3.0 00:30 Intake and Output 09/16/18 09/16/18 09/17/18 1515:00 23:00 07:00 IntakeIntake Total 850 ml 650 ml OutputOutput Total 1100 ml 1725 ml BalanceBalance -250 ml -1075 ml Exam GEN: awake, alert, no acute distress Respiratory: Bibasilar rales, no wheezing Cardiovascular: regular rate and rhythm, nl pulses Gastrointestinal: soft, distended Musculoskeletal: muscle tone, muscle weakness, swelling Extremities: normal pulses,1-2+ LE pitting edema Neurological: [employer] II-XII intact, nl mental status, nl speech, nl strength Medications Medications Current Medications Lorazepam (Ativan) 0.5 mg Q8H PRN PO ANXIETY; Start 09/13/18 at 12:30 Ondansetron HCl (Zofran Inj) 4 mg Q6H PRN IV NAUSEA AND/OR VOMITING Last administered on 09/16/18at 21:16; Admin Dose 4 MG; Start 09/13/18 at 12:30 Nitroglycerin (Nitroglycerin (Sl Tab) 0.4 Mg) 1 tab Q5M PRN SL CHEST PAIN; Start 09/13/18 at 12:30 Acetaminophen (Tylenol Tab) 650 mg Q6H PRN PO PAIN LEVEL 1-3 OR FEVER Last administered on 09/17/18at 02:29; Admin Dose 650 MG; Start 09/13/18 at 12:30 Morphine Sulfate (morphine) 2 mg Q4H PRN IV SEVERE PAIN LEVEL 7-10 Last administered on 09/16/18 11:17; Admin Dose 2 MG; Start 09/13/18 at 13:00 Zolpidem Tartrate (Ambien) 5 mg QHS PRN PO INSOMNIA Last administered on 09/14/18 22:38; Admin Dose 5 MG; Start 09/13/18 at 12:30 Docusate Sodium (Colace) 100 mg Q12H PO Last administered on 09/17/18 00:35; Admin Dose 100 MG; Start 09/13/18 at 12:30 Famotidine (Pepcid) 20 mg Q12 PO Last administered on 09/17/18 08:33; Admin Dose 20 MG; Start 09/13/18 at 21:00 Apixaban (Eliquis) 2.5 mg BID PO Last administered on 09/17/18 08:32; Admin Dose 2.5 MG; Start 09/13/18 at 21:00 Atorvastatin Calcium (Lipitor) 80 mg QHS PO Last administered on 09/16/18 20:20; Admin Dose 80 MG; Start 09/13/18 at 21:00 Cholecalciferol (Vitamin D) 2,000 unit DAILY PO Last administered on 09/17/18 08:33; Admin Dose 2,000 UNIT; Start 09/14/18 at 09:00 EZETIMIBE (Zetia) 10 mg HS PO Last administered on 09/16/18 20:21; Admin Dose 10 MG; Start 09/13/18 at 21:00 Insulin Glargine (Lantus) 30 units QHS SC Last administered on 09/15/18 20:27; Admin Dose 30 UNITS; Start 09/13/18 at 21:00 Isosorbide Mononitrate (Imdur) 30 mg DAILY PO Last administered on 09/17/18 08:31; Admin Dose 30 MG; Start 09/14/18 at 09:00 Spironolactone (Aldactone) 25 mg DAILY PO Last administered on 09/17/18 08:31; Admin Dose 25 MG; Start 09/14/18 at 09:00 Insulin Aspart (Novolog Insulin Pen) 10 unit WITH MEALS SC Last administered on 1/22/19at 08:59; Admin Dose 10 UNIT; Start 09/13/18 at 18:00 Miscellaneous Information 1 ea NOTE XX ; Start 09/13/18 at 13:00 Glucose (Glutose) 15 gm Q15M PRN PO DECREASED GLUCOSE; Start 09/13/18 at 13:00 Glucose (Glutose) 22.5 gm Q15M PRN PO DECREASED GLUCOSE; Start 09/13/18 at 13:00 Dextrose (D50w Syringe) 25 ml Q15M PRN IV DECREASED GLUCOSE; Start 09/13/18 at 13:00 Dextrose (D50w Syringe) 50 ml Q15M PRN IV DECREASED GLUCOSE; Start 09/13/18 at 13:00 Glucagon (Glucagen) 1 mg Q15M PRN IM DECREASED GLUCOSE; Start 09/13/18 at 13:00 Glucose (Glutose) 15 gm Q15M PRN BUCCAL DECREASED GLUCOSE; Start 09/13/18 at 13:00 Acetaminophen/ Hydrocodone Bitart ([place] (5/325)) 1 tab Q4H PRN PO MODERATE P AIN LEVEL 4-6; Start 09/13/18 at 13:00 Epoetin [place] (Epogen (Non Esrd/Non Oncology)) 6,000 units TuThSa@17 SC Last administered on 09/14/18at 17:00; Admin Dose 6,000 UNITS; Start 09/14/18 at 17:00 Sevelamer Carbonate (Renvela) 800 mg WITH MEALS PO Last administered on 09/17/18at 08:31; Admin Dose 800 MG; Start 09/14/18 at 08:00 Hydralazine HCl (Apresoline) 100 mg BID PO Last administered on 09/17/18at 08:34; Admin Dose 100 MG; Start 09/14/18 at 21:00 Losartan Potassium (Cozaar) 25 mg QHS PO Last administered on 09/16/18 20:22; Admin Dose 25 MG; Start 09/14/18 at 21:00 Bumetanide (Bumex) 1 mg BID DIURETICS IV Last administered on 09/17/18at 06:19; Admin Dose 1 MG; Start 09/15/18 at 06:00 Doxazosin Mesylate (Cardura) 2 mg HS PO Last administered on 09/16/18at 20:22; Admin Dose 2 MG; Start 09/15/18 at 21:00 Isosorbide Dinitrate (Isordil) 40 mg TID PO Last administered on 09/17/18at 08:3 1; Admin Dose 40 MG; Start 09/15/18 at 13:00 Hydralazine HCl (Apresoline) 10 mg Q6H PRN IV ELEVATED SYSTOLIC BP Last administered on 09/16/18at 18:09; Admin Dose 10 MG; Start 09/16/18 at 11:00 Oseltamivir Phosphate (Tamiflu) 75 mg DAILY PO Last administered on 09/17/18at 08:30; Admin Dose 75 MG; Start 09/16/18 at 13:00 Cefepime HCl 50 ml @ 100 mls/hr Q24H IVPB Last administered on 09/16/18at 19:0 2; Admin Dose 100 MLS/HR; Start 09/16/18 at 16:00 Vancomycin HCl (Vanco Iv Per Pharmacy) VANCOMYCIN PER PHARMACY PER PROTOCOL XX ; Start 09/16/18 at 15:30 Nifedipine (Procardia Xl) 30 mg BID PO Last administered on 09/17/18at 08:31; Admin Dose 30 MG; Start 09/16/18 at 16:30 Polyethylene Glycol (Miralax) 17 gm DAILY PO Last administered on 09/17/18at 08:33; Admin Dose 17 GM; Start 09/16/18 at 19:00 Date/Time of Note Date/Time of Note DATE: 09/17/18 TIME: 12:18 LOLIS CROWDER MD Sep 17, 2018 12:19
--- NOTE | 2018-09-17 13:00 | NUR ---
nurse note pt c/o of his right antecubital region rash it is red and raised Dr. Perez notified she ordered warm compress for it wound photo taken
[2018-09-17] MEDS: ALBUMIN HUMAN 25% 100 ML IV SCH ×2 (13:44→20:25)
[2018-09-17] MEDS: CEFEPIME 1GM/50 ML (PMX) 50 ML IVPB SCH (15:15)
--- NOTE | 2018-09-17 15:30 | NUR ---
Temp up to 100.8 pt refusing tylenol right now he said he does not want to take anymore tylenol because he's received so much of it and he thinks it's not working reinforced to the pt to comply with medication regimen he said he will take off his blankets instead will recheck temp in an hour
--- NOTE | 2018-09-17 15:59 | CONS ---
DATE OF ADMISSION: 09/13/2018 DATE OF CONSULTATION: 09/17/2018 TYPE OF CONSULTATION: Infectious disease. REASON FOR CONSULTATION: Antibiotic management. HISTORY OF PRESENT ILLNESS: Mickey Mason is a 43-year-old male who comes in with shortness of breath, chest pressure and bilateral lower extremity swelling. Past problems include: 1. Coronary artery disease with congestive heart failure. 2. Chronic renal disease. 3. Hyperlipidemia. 4. Adult-onset diabetes mellitus. Acutely, the patient comes in with increasing shortness of breath, dyspnea on exertion, orthopnea, PN D. He has been using Bumex daily and continues to have bilateral lower extremity swelling, decreased urination. He denies fever or chills. There is no cough, no chest pain, no abdominal pain, no naus ea or vomiting. PAST MEDICAL HISTORY: Operations: Status post amputation of left big toe and eye surgery on the lef t eye. As outlined. He has anemia of chronic disease. FAMILY HISTORY: Noncontributory. SOCIAL HISTORY: He does not smoke, drink or abuse drugs. ALLERGIES: NONE TO PENICILLIN, SULFA OR FOODS. MEDICATIONS: Per chart. REVIEW OF SYSTEMS: As per HPI. ANCILLARY LABORATORY DATA: On admission, white count of 7.4, H and H was 8 and 25, platelet count 22 0,000. BUN and creatinine is 78/3.61. Random glucose of 209. HOSPITAL COURSE: The patient's chest x-ray on 09/13/2018 shows no acute disease. On 09/16/2018, rig ht base interstitial alveolar airspace disease suggestive of pneumonia, lateral view and followup is recommended. Small right pleural effusion cannot be excluded. DVT study is negative. His urine gre w out Staph species and blood cultures x2 grew out Staph aureus. The patient was started on vancomyc in and repeat blood cultures were done. The patient was on vancomycin and cefepime. Today, white co unt is 8.4, H and H of 8 and 24.8, platelet count 157,000. BUN and creatinine is 87/4.42. PHYSICAL EXAMINATION: GENERAL: The patient is alert, responsive, oriented x3, in no acute distress. VITAL SIGNS: Stable. He is afebrile. SKIN: Without generalized rash. HEENT: Within normal limits. NECK: Supple. LYMPH NODES: None palpable. CHEST: Decreased breath sounds at the bases. HEART: Without murmur or gallop. ABDOMEN: Soft, obese, nontender without organosplenomegaly or masses. EXTREMITIES: Without cyanosis, clubbing or edema. RECTAL AND GENITAL: Deferred. NEUROLOGICAL: No focal neurological abnormality. IMPRESSION AND PLAN: The patient comes in with congestive heart failure, last echo which showed ejec tion fraction of 60% with abnormal diastolic function. He has acute on chronic renal disease stage I V, anemia of chronic disease, paroxysmal atrial fibrillation. In addition, he has sepsis secondary t o Staph aureus bacteremia. Blood cultures are growing Staphylococcus aureus probable from the urine, but there is concern for endocarditis. He is status post JAVIER that showed no vegetation, may require repeat JAVIER. We will also speak to cardiology and get an ID consult. My feeling is that the patient does need at least a 2D echocardiogram and very possibly a JAVIER. The patient was seen by Dr. Ponce in cardiology consultation. He is in atrial fibrillation but is in sinus rhythm now, rate controlled on Eliquis. His temperature today was up to 101.8, so repeat blood cultures are pending from 2018 and it is very possible that we are dealing with an endocarditis. Urinary tract infection is al so a possibility, urinary tract infection with sepsis. His urine however was negative to staph speci es. I will dictate my findings to the hospitalist and to the aforementioned consultants. Dictated By: DANUTA AYOUB MD, JD/SUNDEEP Conf#: [id number] DID#: [id number] CC: LEXII REED MD;*EndCC*
[2018-09-17] MEDS: EPOETIN 3000 UNITS/ML (NON ESRD/NON ONCOLOGY) SC SCH (17:29)
--- NOTE | 2018-09-17 18:32 | NUR ---
EOSS pt is alert and orientedx4, on room air, still running low grade temp. MD aware Pt family at bedside, updated with plan of care Hourly rounding done pt. ate his dinner, he is stable.
[2018-09-17] MEDS: DOXAZOSIN 2 MG TAB PO SCH (20:18)
[2018-09-17] MEDS: ATORVASTATIN 80 MG TAB PO SCH (20:19)
[2018-09-17] MEDS: EZETIMIBE 10 MG TAB PO SCH (20:19)
[2018-09-17] MEDS: LOSARTAN 25 MG TAB PO SCH (20:19)
[2018-09-17] MEDS: INSULIN GLARGINE [LANTus] (100 UNITS/ML) SYG SC SCH (20:20)
[2018-09-17] MEDS: morphine 4 MG/ML VIAL IV PRN (20:21)
--- NOTE | 2018-09-17 22:31 | NUR ---
Nurse Note Pt refusing bed alarm. Pt educated on fall precautions and use of call light prior to OOB. Will frequently monitor pt.
[2018-09-18] VITALS (19 sets, daily range): BP systolic 131–175; BP diastolic 46–79; PULSE 74–94; RESP 17–22
[2018-09-18] MEDS: morphine 4 MG/ML VIAL IV PRN ×2 (03:51→20:56)
--- NOTE | 2018-09-18 03:56 | NUR ---
Nurse Note Pt complaint of right arm pain. MD order for warm compress BID. Pt refusing warm compress, states it is not helping with the pain and prefers pain meds instead. Pain meds administered, will reassess.
[2018-09-18] MEDS: ALBUMIN HUMAN 25% 100 ML IV SCH (05:03)
[2018-09-18] MEDS: BUMETANIDE 1 MG INJ IV SCH (05:05)
--- NOTE | 2018-09-18 06:40 | NUR ---
EOSS Pt AOx4, ambulatory, on RA, SR on monitor. Pt with on/off CPAP during night. Pt refused bed alarm throughout night, CN Kenrick aware. Pt educated on fall precautions and demonstrated use of call light prior to OOB. Pt with mild fever through night, remaining vitals WNL, will endorse to oncoming RN.
[2018-09-18] MEDS ORDERED: PROPOFOL 200 MG INJ ONE (07:00)
[2018-09-18] MEDS: SEVELAMER CARBONATE 800 MG TABLET PO SCH ×3 (07:36→17:21)
[2018-09-18] MEDS: INSULIN ASPART [NOVOLOG] 3 ML PEN SC SCH ×3 (07:36→17:24)
[2018-09-18] MEDS: ACETAMINOPHEN 325 MG TAB PO PRN ×2 (08:07→14:30)
[2018-09-18] MEDS: hydrALAzine 20 MG INJ IV PRN (08:07)
--- NOTE | 2018-09-18 08:24 | CONS ---
Assessment/Plan Assessment/Plan Assessment/Plan 1.Acute kidney injury on CKD III due to hemodynamics from CHF 2. acute CHF exacerbation, acute on chronic, diastolic, with fluid overload and pulmonary congestion with anasarca 3. 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 H/o HTN 5. LE edema/anasarca 6. HL 7. Anemia of chronic kidney disease Plan: BUN/Cr went upto 90/4.88, losartan and Spirnolacton eha sbeen on hold, Stop bumex today plan for Lumbar spine MRI due to back pain Hb dropped to 6.9-1. s/p PRBC trnasfusion, now Hb 7.4- on epogen 6000 units SQ TTS for anemia, prn transfusion Continue Renvela 800mg TID for hyperphosphatemia - monitor electrolytes and replace aggressively Renal US on previous visit- unremarkable, Kidney size R 12.0, left 11.2 cm, normal echogenicity on last visit Nifedipine 60mg BID , Coreg 6.25mg PO BID, Hydralazine 100mg PO TID [facility] follow up Result Diagram: 09/18/18 0517 09/18/18 0517 Results 24hrs Laboratory Tests Test 09/17/18 12:00 09/17/18 12:43 09/17/18 17:18 09/17/18 20:15 Bedside Glucose 149 153 111 Stool Occult Blood NEGATIVE Test 09/18/18 05:17 09/18/18 07:34 White Blood Count 8.3 Red Blood Count 2.69 L Hemoglobin 7.4 L Hematocrit 23.0 L Mean Corpuscular 85.5 Volume Mean Corpuscular 27.5 L Hemoglobin Mean Corpuscular 32.2 Hemoglobin Concent Red Cell 13.2 Distribution Width Platelet Count 130 L Mean Platelet Volume 11.2 H Immature 0.400 Granulocytes % Neutrophils % 72.4 Lymphocytes % 8.2 L Monocytes % 14.9 H Eosinophils % 3.9 Basophils % 0.2 Nucleated Red Blood 0.0 Cells % Immature 0.030 Granulocytes # Neutrophils # 6.0 Lymphocytes # 0.7 L Monocytes # 1.2 H Eosinophils # 0.3 Basophils # 0.0 Nucleated Red Blood 0.0 Cells # Sodium Level 138 Potassium Level 4.4 Chloride Level 102 Carbon Dioxide Level 22 Anion Gap 14 H Blood Urea Nitrogen 90 H Creatinine 4.88 H Est Glomerular 13 L Filtrat Rate mL/min Glucose Level 98 Calcium Level 8.9 Magnesium Level 2.3 Random Vancomycin 14.8 Level Bedside Glucose 124 Consultation Date/Type/Reason Admit Date/Time Sep 13, 2018 at 08:45 Initial Consult Date 09/13/18 Type of Consult NEPHROLOGY Requesting Provider: LEXII REED 24 HR Interval Summary Free Text/Dictation BUN/Cr went upto 90/4.88, Bp stable, afebrile , plan for Lumbar spine MRI due to back pain Exam/Review of Systems Vital Signs Vitals Vital Signs Date Temp Pulse Resp B/P (MAP) Pulse Ox O2 O2 Flow FiO2 Time Delivery Rate 09/18/18 102.0 08:07 09/18/18 94 20 175/79 94 Room Air 07:35 (111) 09/18/18 30 01:05 Intake and Output 09/17/18 09/17/18 09/18/18 1515:00 23:00 07:00 IntakeIntake Total 1850 ml 700 ml OutputOutput Total 725 ml 1200 ml BalanceBalance 1125 ml -500 ml Exam GEN: awake, alert, no acute distress Respiratory: Bibasilar rales, no wheezing Cardiovascular: regular rate and rhythm, nl pulses Gastrointestinal: soft, distended Musculoskeletal: muscle tone, muscle weakness, swelling Extremities: normal pulses,1-2+ LE pitting edema Neurological: CHEESE GRADER II-XII intact, nl mental status, nl speech, nl strength Medications Medications Current Medications Lorazepam (Ativan) 0.5 mg Q8H PRN PO ANXIETY; Start 09/13/18 at 12:30 Ondansetron HCl (Zofran Inj) 4 mg Q6H PRN IV NAUSEA AND/OR VOMITING Last administered on 09/16/18at 21:16; Admin Dose 4 MG; Start 09/13/18 at 12:30 Nitroglycerin (Nitroglycerin (Sl Tab) 0.4 Mg) 1 tab Q5M PRN SL CHEST PAIN; Start 09/13/18 at 12:30 Acetaminophen (Tylenol Tab) 650 mg Q6H PRN PO PAIN LEVEL 1-3 OR FEVER Last administered on 09/18/18at 08:07; Admin Dose 650 MG; Start 09/13/18 at 12:30 Morphine Sulfate (morphine) 2 mg Q4H PRN IV SEVERE PAIN LEVEL 7-10 Last administered on 09/18/18 03:51; Admin Dose 2 MG; Start 09/13/18 at 13:00 Zolpidem Tartrate (Ambien) 5 mg QHS PRN PO INSOMNIA Last administered on 09/14/18 22:38; Admin Dose 5 MG; Start 09/13/18 at 12:30 Docusate Sodium (Colace) 100 mg Q12H PO Last administered on 09/17/18 23:39; Admin Dose 100 MG; Start 09/13/18 at 12:30 Famotidine (Pepcid) 20 mg Q12 PO Last administered on 09/17/18 20:19; Admin Dose 20 MG; Start 09/13/18 at 21:00 Apixaban (Eliquis) 2.5 mg BID PO Last administered on 09/17/18 20:19; Admin Dose 2.5 MG; Start 09/13/18 at 21:00 Atorvastatin Calcium (Lipitor) 80 mg QHS PO Last administered on 09/17/18 20:19; Admin Dose 80 MG; Start 09/13/18 at 21:00 Cholecalciferol (Vitamin D) 2,000 unit DAILY PO Last administered on 09/17/18 08:33; Admin Dose 2,000 UNIT; Start 09/14/18 at 09:00 EZETIMIBE (Zetia) 10 mg HS PO Last administered on 09/17/18 20:19; Admin Dose 10 MG; Start 09/13/18 at 21:00 Insulin Glargine (Lantus) 30 units QHS SC Last administered on 09/17/18 20:20; Admin Dose 30 UNITS; Start 09/13/18 at 21:00 Isosorbide Mononitrate (Imdur) 30 mg DAILY PO Last administered on 09/17/18 08:31; Admin Dose 30 MG; Start 09/14/18 at 09:00 Spironolactone (Aldactone) 25 mg DAILY PO Last administered on 09/17/18 08:31; Admin Dose 25 MG; Start 09/14/18 at 09:00; Status Hold Insulin Aspart (Novolog Insulin Pen) 10 unit WITH MEALS SC Last administered on 09/17/18 17:38; Admin Dose 10 UNIT; Start 09/13/18 at 18:00 Miscellaneous Information 1 ea NOTE XX ; Start 09/13/18 at 13:00 Glucose (Glutose) 15 gm Q15M PRN PO DECREASED GLUCOSE; Start 09/13/18 at 13:00 Glucose (Glutose) 22.5 gm Q15M PRN PO DECREASED GLUCOSE; Start 09/13/18 at 13:00 Dextrose (D50w Syringe) 25 ml Q15M PRN IV DECREASED GLUCOSE; Start 09/13/18 at 13:00 Dextrose (D50w Syringe) 50 ml Q15M PRN IV DECREASED GLUCOSE; Start 09/13/18 at 13:00 Glucagon (Glucagen) 1 mg Q15M PRN IM DECREASED GLUCOSE; Start 09/13/18 at 13:00 Glucose (Glutose) 15 gm Q15M PRN BUCCAL DECREASED GLUCOSE; Start 09/13/18 at 13:00 Acetaminophen/ Hydrocodone Bitart ([place] (5/325)) 1 tab Q4H PRN PO MODERATE PAIN LEVEL 4-6; Start 09/13/18 at 13:00 Epoetin [place] (Epogen (Non Esrd/Non Oncology)) 6,000 units TuThSa@17 SC Last administered on 09/17/18at 17:29; Admin Dose 6,000 UNITS; Start 09/14/18 at 17:00 Sevelamer Carbonate (Renvela) 800 mg WITH MEALS PO Last administered on 09/17/18at 17:21; Admin Dose 800 MG; Start 09/14/18 at 08:00 Hydralazine HCl (Apresoline) 100 mg BID PO Last administered on 09/17/18at 20:18; Admin Dose 100 MG; Start 09/14/18 at 21:00 Bumetanide (Bumex) 1 mg BID DIURETICS IV Last administered on 09/18/18at 05:05; Admin Dose 1 MG; Start 09/15/18 at 06:00 Doxazosin Mesylate (Cardura) 2 mg HS PO Last administered on 09/17/18at 20:18; Admin Dose 2 MG; Start 09/15/18 at 21:00 Isosorbide Dinitrate (Isordil) 40 mg TID PO Last administered on 09/17/18at 20:18; Admin Dose 40 MG; Start 09/15/18 at 13:00 Hydralazine HCl (Apresoline) 10 mg Q6H PRN IV ELEVATED SYSTOLIC BP Last administered on 09/18/18at 08:07; Admin Dose 10 MG; Start 09/16/18 at 11:00 Oseltamivir Phosphate (Tamiflu) 75 mg DAILY PO Last administered on 09/17/18at 08:30; Admin Dose 75 MG; Start 09/16/18 at 13:00 Cefepime HCl 50 ml @ 100 mls/hr Q24H IVPB Last administered on 09/17/18at 15:15; Admin Dose 100 MLS/HR; Start 09/16/18 at 16:00 Vancomycin HCl (Vanco Iv Per Pharmacy) VANCOMYCIN PER PHARMACY PER PROTOCOL XX ; Start 09/16/18 at 15:30 Nifedipine (Procardia Xl) 30 mg BID PO Last administered on 09/17/18at 20:17; Admin Dose 30 MG; Start 09/16/18 at 16:30 Polyethylene Glycol (Miralax) 17 gm DAILY PO Last administered on 09/17/18at 08:33; Admin Dose 17 GM; Start 09/16/18 at 19:00 Date/Time of Note Date/Time of Note DATE: 09/18/18 TIME: 08:24 LOLIS CROWDER MD Sep 18, 2018 08:24
[2018-09-18] MEDS: ISOSORBIDE MONONITRATE(SR)30 MG TAB PO SCH (09:00)
--- NOTE | 2018-09-18 09:25 | PREAC ---
Date/Time of Note Date/Time of Note DATE: 09/18/18 TIME: : Anesthesia Eval and Record Evaluation Time Pre-Procedure Interview DATE: 09/18/18 TIME: : Age 43 Sex male NPO: 8 hrs Preoperative diagnosis Endocarditis Planned procedure JAVIER Past Medical History Past Medical History: Includes Cardio: Dyslipidemia, CHF Endo: Diabetes Pulm: COPD Neuro: Other Musculoskeletal: Other Renal: MARIA DEL CARMEN Hepatic: Other GI: Morbid obesity Heme: Other Psych: Other Infection(s): Other Recreational drugs: Other : Other Surgery & Anesthesia Issues Hx of difficult intubation, Aspiration risk Meds Anticoagulation: No Beta Mamadou within 24 hr: Yes Reason Beta Mamadou not given: Pt. not on B-Mamadou, Other Active Scripts Levofloxacin* (Levaquin*) 250 Mg Tablet, 250 MG PO DAILY@06 for 2 Days, TAB Prov:MERARY SAHU MD 05/10/18 Losartan Potassium* (Cozaar*) 25 Mg Tablet, 25 MG PO DAILY, #30 TAB Prov:BREANA MORALES 05/09/18 Nifedipine* (Nifedipine ER*) 60 Mg Tablet.sa, 60 MG PO BID, #60 TAB.SA Prov:BREANA MORALES 05/09/18 Bumetanide* (Bumetanide*) 2 Mg Tablet, 2 MG PO BID, #180 TAB Prov:LOLIS CROWDER MD 05/09/18 Reported Medications Hydralazine Hcl* (Hydralazine Hcl*) 100 Mg Tablet, 100 MG PO TID, #90 TAB 05/07/18 Potassium Chloride* (K-Dur*) 10 Meq Tab.prt.sr, 10 MEQ PO BID, TAB 05/06/18 Hydralazine Hcl* (Hydralazine Hcl*) 50 Mg Tab, 50 MG PO Q8 PRN for ELEVATED BLOOD PRESSURE, #90 TAB 05/06/18 Ezetimibe* (Zetia*) 10 Mg Tablet, 10 MG PO HS, TAB 05/06/18 Carvedilol* (Carvedilol*) 3.125 Mg Tablet, 3.125 MG PO BID, #60 TAB 05/06/18 Apixaban* (Eliquis*) 5 Mg Tablet, 5 MG PO BID, TAB 05/06/18 Isosorbide Mononitrate* (Isosorbide Mononitrate*) 30 Mg Tab.er.24h, 30 MG PO DAILY, TAB 04/16/18 Spironolactone* (Aldactone*) 25 Mg Tablet, 25 MG PO DAILY, #30 TAB 04/16/18 Cholecalciferol* (Vitamin D3*) 1,000 Unit Tablet, 2000 UNIT PO DAILY, TAB 04/16/18 Insulin Lispro (Humalog Kwikpen U-100) 100 Unit/1 Ml Insuln.pen, 10 UNIT SQ WITH MEALS, EA 04/16/18 Insulin Glargine* (Lantus*) 100 Unit/Ml Soln, 30 UNIT SC QHS, #1 VIAL 02/28/18 Atorvastatin* (Atorvastatin*) 80 Mg Tablet, 80 MG PO QHS, #30 TAB 02/07/18 Current Medications Lorazepam (Ativan) 0.5 mg Q8H PRN PO ANXIETY; Start 09/13/18 at 12:30 Ondansetron HCl (Zofran Inj) 4 mg Q6H PRN IV NAUSEA AND/OR VOMITING Last administered on 09/16/18at 21:16; Admin Dose 4 MG; Start 09/13/18 at 12:30 Nitroglycerin (Nitroglycerin (Sl Tab) 0.4 Mg) 1 tab Q5M PRN SL CHEST PAIN; Start 09/13/18 at 12:30 Acetaminophen (Tylenol Tab) 650 mg Q6H PRN PO PAIN LEVEL 1-3 OR FEVER Last administered on 09/18/18 08:07; Admin Dose 650 MG; Start 09/13/18 at 12:30 Morphine Sulfate (morphine) 2 mg Q4H PRN IV SEVERE PAIN LEVEL 7-10 Last administered on 09/18/18at 03:51; Admin Dose 2 MG; Start 09/13/18 at 13:00 Zolpidem Tartrate (Ambien) 5 mg QHS PRN PO INSOMNIA Last administered on 09/14/18 22:38; Admin Dose 5 MG; Start 09/13/18 at 12:30 Docusate Sodium (Colace) 100 mg Q12H PO Last administered on 09/17/18 23:39; Admin Dose 100 MG; Start 09/13/18 at 12:30 Famotidine (Pepcid) 20 mg Q12 PO Last administered on 09/17/18at 20:19; Admin Dose 20 MG; Start 09/13/18 at 21:00 Apixaban (Eliquis) 2.5 mg BID PO Last administered on 09/17/18 20:19; Admin Dose 2.5 MG; Start 09/13/18 at 21:00 Atorvastatin Calcium (Lipitor) 80 mg QHS PO Last administered on 09/17/18 20:19; Admin Dose 80 MG; Start 09/13/18 at 21:00 Cholecalciferol (Vitamin D) 2,000 unit DAILY PO Last administered on 09/17/18at 08:33; Admin Dose 2,000 UNIT; Start 09/14/18 at 09:00 EZETIMIBE (Zetia) 10 mg HS PO Last administered on 09/17/18 20:19; Admin Dose 10 MG; Start 09/13/18 at 21:00 Insulin Glargine (Lantus) 30 units QHS SC Last administered on 09/17/18at 20:20; Admin Dose 30 UNITS; Start 09/13/18 at 21:00 Isosorbide Mononitrate (Imdur) 30 mg DAILY PO Last administered on 09/17/18 08:31; Admin Dose 30 MG; Start 09/14/18 at 09:00 Spironolactone (Aldactone) 25 mg DAILY PO Last administered on 09/17/18 08:31; Admin Dose 25 MG; Start 09/14/18 at 09:00; Status Hold Insulin Aspart (Novolog Insulin Pen) 10 unit WITH MEALS SC Last administered on 09/17/18at 17:38; Admin Dose 10 UNIT; Start 09/13/18 at 18:00 Miscellaneous Information 1 ea NOTE XX ; Start 09/13/18 at 13:00 Glucose (Glutose) 15 gm Q15M PRN PO DECREASED GLUCOSE; Start 09/13/18 at 13:00 Glucose (Glutose) 22.5 gm Q15M PRN PO DECREASED GLUCOSE; Start 09/13/18 at 13:00 Dextrose (D50w Syringe) 25 ml Q15M PRN IV DECREASED GLUCOSE; Start 09/13/18 at 13:00 Dextrose (D50w Syringe) 50 ml Q15M PRN IV DECREASED GLUCOSE; Start 09/13/18 at 13:00 Glucagon (Glucagen) 1 mg Q15M PRN IM DECREASED GLUCOSE; Start 09/13/18 at 13:00 Glucose (Glutose) 15 gm Q15M PRN BUCCAL DECREASED GLUCOSE; Start 09/13/18 at 13:00 Acetaminophen/ Hydrocodone Bitart ([place] (5/325)) 1 tab Q4H PRN PO MODERATE PAIN LEVEL 4-6; Start 09/13/18 at 13:00 Epoetin [place] (Epogen (Non Esrd/Non Oncology)) 6,000 units TuThSa@17 SC Last administered on 09/17/18 17:29; Admin Dose 6,000 UNITS; Start 09/14/18 at 17:00 Sevelamer Carbonate (Renvela) 800 mg WITH MEALS PO Last administered on 09/17/18 17:21; Admin Dose 800 MG; Start 09/14/18 at 08:00 Hydralazine HCl (Apresoline) 100 mg BID PO Last administered on 09/17/18 20:18; Admin Dose 100 MG; Start 09/14/18 at 21:00 Doxazosin Mesylate (Cardura) 2 mg HS PO Last administered on 09/17/18 20:18; Admin Dose 2 MG; Start 09/15/18 at 21:00 Isosorbide Dinitrate (Isordil) 40 mg TID PO Last administered on 09/17/18 20:18; Admin Dose 40 MG; Start 09/15/18 at 13:00 Hydralazine HCl (Apresoline) 10 mg Q6H PRN IV ELEVATED SYSTOLIC BP Last administered on 09/18/18 08:07; Admin Dose 10 MG; Start 09/16/18 at 11:00 Oseltamivir Phosphate (Tamiflu) 75 mg DAILY PO Last administered on 09/17/18 08:30; Admin Dose 75 MG; Start 09/16/18 at 13:00 Cefepime HCl 50 ml @ 100 mls/hr Q24H IVPB Last administered on 09/17/18 15:15; Admin Dose 100 MLS/HR; Start 09/16/18 at 16:00 Vancomycin HCl (Vanco Iv Per Pharmacy) VANCOMYCIN PER PHARMACY PER PROTOCOL XX ; Start 09/16/18 at 15:30 Nifedipine (Procardia Xl) 30 mg BID PO Last administered on 09/17/18at 20:17; Admin Dose 30 MG; Start 09/16/18 at 16:30 Polyethylene Glycol (Miralax) 17 gm DAILY PO Last administered on 09/17/18at 08:33; Admin Dose 17 GM; Start 09/16/18 at 19:00 Bumetanide (Bumex) 2 mg BID DIURETICS PO ; Start 09/18/18 at 18:00 Meds reviewed: Yes Allergies Coded Allergies: ibuprofen (Unverified Allergy, Mild, 09/13/18) Allergies Reviewed: Yes Labs/Studies Labs Reviewed: Reviewed by anesthesiologist Result Diagram: 09/18/1851609/18/18516 Laboratory Tests 09/18/18 05:17 test: N/A Studies: ECG, CXR Pre-procedure Exam Last vitals Vital Signs Date Temp Pulse Resp B/P (MAP) Pulse Ox O2 O2 Flow FiO2 Time Delivery Rate 09/18/18 93 08:48 09/18/18 102.0 08:07 09/18/18 20 175/79 94 Room Air 07:35 (111) 09/18/18 30 01:05 Airway: Adequate mouth opening Mallampati: Mallampati II Teeth: Normal Lung: Abnormal Heart: Abnormal Anticipated Difficutly with IV: Anticipate Difficult IV Access ASA Physical Status ASA physical status: 2 Emergency: None Planned Anesthetic General/MAC: MAC Neuraxial: Other Nerve block: Other Planned Pain Management Parenteral pain med Pre-operative Attestations Prior to commencing anesthesia and surgery, the patient was re-evaluated, there was verification of: *The patient's identity *The results of appropriate recent lab work and preoperative vital signs *The above evaluation not changing prior to induction *Anesthetic plan, risk benefits, alternative and complications discussed with patient/family; questions answered; patient/family understands, accepts and wishes to proceed. QUITA DIAZ MD Sep 18, 2018 09:25
[2018-09-18] MEDS ORDERED: MIDAZOLAM 1 MG/ML 2 ML INJ ONE (09:42)
[2018-09-18] MEDS ORDERED: FENTAnyl 50 MCG/ML VIAL ONE (09:42)
--- NOTE | 2018-09-18 09:53 | CONS ---
Assessment/Plan Cardiology Heart Failure NYHA Class: III Heart Failure Type: Diastolic Assessment/Plan Assessment/Plan IMP: 1.Bacteremia-staph aureua 2.PAF 3.CHF 4.Renal failure Recc: -Tele -Continue abx's and f/u cx data -Copntinue hydralazine/procardia/isordil -JAVIER today Consultation Date/Type/Reason Admit Date/Time Sep 13, 2018 at 08:45 Initial Consult Date 09/13/18 Type of Consult Cardiology Reason for Consultation bacteremia Requesting Provider: LEXII REED Date/Time of Note DATE: 09/18/18 TIME: 09:48 Exam/Review of Systems Vital Signs Vitals Vital Signs Date Temp Pulse Resp B/P (MAP) Pulse Ox O2 O2 Flow FiO2 Time Delivery Rate 09/18/18 93 08:48 09/18/18 102.0 08:07 09/18/18 20 175/79 94 Room Air 07:35 (111) 09/18/18 30 01:05 Intake and Output 09/17/18 09/17/18 09/18/18 1515:00 23:00 07:00 IntakeIntake Total 1850 ml 700 ml OutputOutput Total 725 ml 1200 ml BalanceBalance 1125 ml -500 ml Exam Exam Review of Systems: CONSTITUTIONAL: fevers PULMONARY: No sob CARDIOVASCULAR: No chest pain/palpitations GASTROINTESTINAL: No nausea/vomiting. GENITOURINARY: No hematuria/dysuria. MUSCULOSKELETAL: No myagias/arthalgias. PSYCHIATRIC: The patient denies depression. NEUROLOGIC: No weakness Constitutional: alert Psych: no complaints Head: normocephalic ENMT: mucosa pink and moist Neck: supple, jvd (9 cm water) Respiratory: diminished breath sounds Cardiovascular: regular rate and rhythm Gastrointestinal: soft, non-tender Musculoskeletal: muscle tone (normal) Extremities: edema (none) Neurological: other (No focal deficits) Labs Result Diagram: 09/18/1851609/18/18 0517 Results 24hrs Laboratory Tests Test 09/17/18 12:00 09/17/18 12:43 09/17/18 17:18 09/17/18 20:15 Bedside Glucose 149 153 111 Stool Occult Blood NEGATIVE Test 09/18/18 05:17 09/18/18 07:34 White Blood Count 8.3 Red Blood Count 2.69 L Hemoglobin 7.4 L Hematocrit 23.0 L Mean Corpuscular 85.5 Volume Mean Corpuscular 27.5 L Hemoglobin Mean Corpuscular 32.2 Hemoglobin Concent Red Cell 13.2 Distribution Width Platelet Count 130 L Mean Platelet Volume 11.2 H Immature 0.400 Granulocytes % Neutrophils % 72.4 Lymphocytes % 8.2 L Monocytes % 14.9 H Eosinophils % 3.9 Basophils % 0.2 Nucleated Red Blood 0.0 Cells % Immature 0.030 Granulocytes # Neutrophils # 6.0 Lymphocytes # 0.7 L Monocytes # 1.2 H Eosinophils # 0.3 Basophils # 0.0 Nucleated Red Blood 0.0 Cells # Sodium Level 138 Potassium Level 4.4 Chloride Level 102 Carbon Dioxide Level 22 Anion Gap 14 H Blood Urea Nitrogen 90 H Creatinine 4.88 H Est Glomerular 13 L Filtrat Rate mL/min Glucose Level 98 Calcium Level 8.9 Magnesium Level 2.3 Random Vancomycin 14.8 Level Bedside Glucose 124 VI ADAMES Sep 18, 2018 09:53
--- NOTE | 2018-09-18 10:11 | SIPON ---
Date/Time of Note Date/Time of Note DATE: 09/18/18 TIME: 10:10 Operative Report Preoperative Diagnosis 1.rule out endocarditis Postoperative Diagnosis 1.no definite findings of vegetations Operation/Procedure Performed 1.JAVIER Surgeon see signature line tv production assistant 1.Varsha Anesthesia: moderate sedation Estimated blood loss: minimal Transfusion Required none Specimen none Grafts/Implants none Complications none VI ADAMES Sep 18, 2018 10:11
--- NOTE | 2018-09-18 10:19 | NUR ---
Received patient from [facility] [employer]. Patient is stable.
[2018-09-18] MEDS ORDERED: LABETALOL HCL 20MG INJ IV PRN (10:30)
[2018-09-18] MEDS ORDERED: hydrALAzine 20 MG INJ IV PRN (10:30)
[2018-09-18] MEDS ORDERED: ONDANSETRON 4 MG INJ IV PRN (10:30)
--- NOTE | 2018-09-18 10:46 | NUR ---
Anesthesia Time: 9640 to 1037
--- NOTE | 2018-09-18 10:47 | PAC ---
Date/Time of Note Date/Time of Note DATE: 09/18/18 TIME: 10:47 Post-Anesthesia Notes Post-Anesthesia Note Last documented vital signs Vital Signs Date Temp Pulse Resp B/P (MAP) Pulse Ox O2 O2 Flow FiO2 Time Delivery Rate 09/18/18 98.6 94 19 159/75 97 Nasal 2.0 10:39 (103) Cannula 09/18/18 98.5 10:19 09/18/18 30 01:05 Activity: WNL Respiratory function: WNL Cardiovascular function: WNL Mental status: Baseline Pain reasonably controlled: Yes Hydration appropriate: Yes Nausea/Vomiting absent: No MINNA LOMBARDI MD Sep 18, 2018 10:47
--- NOTE | 2018-09-18 11:00 | NUR ---
pt back from PACU. npo x 2 hours as ordered.
--- NOTE | 2018-09-18 11:19 | NUR ---
PACU Time: 1019 to 1103
--- NOTE | 2018-09-18 11:23 | PN ---
Date/Time of Note Date/Time of Note DATE: 09/18/18 TIME: 11:14 Assessment/Plan VTE Prophylaxis Risk score (from Nsg)>0 risk: 4 Pharmacological prophylaxis: apixaban Lines/Catheters IV Catheter Type (from Nrsg): Peripheral IV Urinary Cath still in place: No Assessment/Plan Result Diagram: 09/18/18 0517 09/18/18 0517 Results 24hrs Laboratory Tests Test 09/17/18 12:00 09/17/18 12:43 09/17/18 17:18 09/17/18 20:15 Bedside Glucose 149 153 111 Stool Occult Blood NEGATIVE Test 09/18/18 05:17 09/18/18 07:34 White Blood Count 8.3 Red Blood Count 2.69 L Hemoglobin 7.4 L Hematocrit 23.0 L Mean Corpuscular 85.5 Volume Mean Corpuscular 27.5 L Hemoglobin Mean Corpuscular 32.2 Hemoglobin Concent Red Cell 13.2 Distribution Width Platelet Count 130 L Mean Platelet Volume 11.2 H Immature 0.400 Granulocytes % Neutrophils % 72.4 Lymphocytes % 8.2 L Monocytes % 14.9 H Eosinophils % 3.9 Basophils % 0.2 Nucleated Red Blood 0.0 Cells % Immature 0.030 Granulocytes # Neutrophils # 6.0 Lymphocytes # 0.7 L Monocytes # 1.2 H Eosinophils # 0.3 Basophils # 0.0 Nucleated Red Blood 0.0 Cells # Sodium Level 138 Potassium Level 4.4 Chloride Level 102 Carbon Dioxide Level 22 Anion Gap 14 H Blood Urea Nitrogen 90 H Creatinine 4.88 H Est Glomerular 13 L Filtrat Rate mL/min Glucose Level 98 Calcium Level 8.9 Magnesium Level 2.3 Random Vancomycin 14.8 Level Bedside Glucose 124 Subjective 24 Hr Interval Summary Free Text/Dictation s: continues to have intermittent fever, s/p JAVIER today o: Constitutional: alert, oriented, obese, warm to touch Head: atraumatic, normocephalic Neck: non-tender, supple Respiratory: clear to auscultation, diminished Cardiovascular: regular rate and rhythm Gastrointestinal: S/ NT / ND / +BS Extremities: no edema, good radial pulses A/P: A 43-year-old male who presented with shortness of breath and bilateral lower extremity edema managed for CHF exacerbation, now resolved, currently managed as follows: 1. Sepsis 2/2 staph aureus bacteremia -Blood cultures are growing staph aureus, no clear source, Both TTE and JAVIER showed no vegetations -ID following and managing abx -Continue antibiotics,continue to follow cultures till negative, needs to be 24hr fever free prior to d/ c 2. Acute on chronic kidney disease stage IV. -nephro managing, losartan on hold, -CR trending up, may be exacerbated by ongoing diuresis, d/c or hold bumex if ok with Nephro 3. Anemia of chronic kidney disease. -hgb continues to drop despite epogen -monitor for now, but patient is on eliquis -Stool OB negative x1 -?hold eliquis, will also get GI consult 4. Paroxysmal atrial fibrillation. -patient continued on eliquis BID -remains in sinus with good rate control 5. Diabetes mellitus with suboptimal home control, -A1C likely unreliable in this patient with severe anemia -improved inpatient control, continue current regimen and titrate as indicated 6. Morbid obesity. -currently on calorie controlled diet -diet and exercise counselling re-inforced 7. Substance abuse / Cocaine use. -Cessation Therapy: Pt. was counselled for greater than 3 minutes on the health risks of continued abuse and the benefits of cessation, this will continue to be reinforced throughout hospitalization. -SW to provide resources 8. s/p Congestive heart failure exacerbation. Diastolic -Last echo showed ejection fraction of 60%, but abnormal diastolic function. -compensated, cardio managing, appreciate input 9. History of pleural effusion, status post thoracentesis in the past. 10. Chronic dyslipidemia. -continue statin 11. Elevated TSH -Will get repeat levels and also check free to T3 and free T4 and intervene as indicated 12. Mild iron deficiency with low iron saturation -We will give short course of intravenous iron replacement, stool occult blood testing is negative so far, may need more invasive workup 13. Mild rhabdomyolysis -Likely secondary to febrile illness, trend levels till normal. 14. dyslipidemia with low HDL -statin Dispo: Plan of care as above, remain inpatient and await clinical improvement. Exam/Review of Systems Vital Signs Vitals Vital Signs Date Temp Pulse Resp B/P (MAP) Pulse Ox O2 O2 Flow FiO2 Time Delivery Rate 09/18/18 99.2 89 20 134/78 96 Room Air 11:11 (96) 09/18/18 2.0 10:39 09/18/18 30 01:05 Intake and Output 09/17/18 09/17/18 09/18/18 1515:00 23:00 07:00 IntakeIntake Total 1850 ml 700 ml OutputOutput Total 725 ml 1200 ml BalanceBalance 1125 ml -500 ml Medications Medications Current Medications Lorazepam (Ativan) 0.5 mg Q8H PRN PO ANXIETY; Start 09/13/18 at 12:30 Ondansetron HCl (Zofran Inj) 4 mg Q6H PRN IV NAUSEA AND/OR VOMITING Last administered on 09/16/18 21:16; Admin Dose 4 MG; Start 09/13/18 at 12:30 Nitroglycerin (Nitroglycerin (Sl Tab) 0.4 Mg) 1 tab Q5M PRN SL CHEST PAIN; Start 09/13/18 at 12:30 Acetaminophen (Tylenol Tab) 650 mg Q6H PRN PO PAIN LEVEL 1-3 OR FEVER Last administered on 09/18/18 08:07; Admin Dose 650 MG; Start 09/13/18 at 12:30 Morphine Sulfate (morphine) 2 mg Q4H PRN IV SEVERE PAIN LEVEL 7-10 Last administered on 09/18/18 03:51; Admin Dose 2 MG; Start 09/13/18 at 13:00 Zolpidem Tartrate (Ambien) 5 mg QHS PRN PO INSOMNIA Last administered on 09/14/18 22:38; Admin Dose 5 MG; Start 09/13/18 at 12:30 Docusate Sodium (Colace) 100 mg Q12H PO Last administered on 09/17/18 23:39; Admin Dose 100 MG; Start 09/13/18 at 12:30 Famotidine (Pepcid) 20 mg Q12 PO Last administered on 09/17/18 20:19; Admin Dose 20 MG; Start 09/13/18 at 21:00 Apixaban (Eliquis) 2.5 mg BID PO Last administered on 09/17/18 20:19; Admin Dose 2.5 MG; Start 09/13/18 at 21:00 Atorvastatin Calcium (Lipitor) 80 mg QHS PO Last administered on 09/17/18 20:19; Admin Dose 80 MG; Start 09/13/18 at 21:00 Cholecalciferol (Vitamin D) 2,000 unit DAILY PO Last administered on 09/17/18 08:33; Admin Dose 2,000 UNIT; Start 09/14/18 at 09:00 EZETIMIBE (Zetia) 10 mg HS PO Last administered on 09/17/18 20:19; Admin Dose 10 MG; Start 09/13/18 at 21:00 Insulin Glargine (Lantus) 30 units QHS SC Last administered on 09/17/18 20:20; Admin Dose 30 UNITS; Start 09/13/18 at 21:00 Isosorbide Mononitrate (Imdur) 30 mg DAILY PO Last administered on 09/17/18 08:31; Admin Dose 30 MG; Start 09/14/18 at 09:00 Spironolactone (Aldactone) 25 mg DAILY PO Last administered on 09/17/18 08:31; Admin Dose 25 MG; Start 09/14/18 at 09:00; Status Hold Insulin Aspart (Novolog Insulin Pen) 10 unit WITH MEALS SC Last administered on 09/17/18 17:38; Admin Dose 10 UNIT; Start 09/13/18 at 18:00 Miscellaneous Information 1 ea NOTE XX ; Start 09/13/18 at 13:00 Glucose (Glutose) 15 gm Q15M PRN PO DECREASED GLUCOSE; Start 09/13/18 at 13:00 Glucose (Glutose) 22.5 gm Q15M PRN PO DECREASED GLUCOSE; Start 09/13/18 at 13:00 Dextrose (D50w Syringe) 25 ml Q15M PRN IV DECREASED GLUCOSE; Start 09/13/18 at 13:00 Dextrose (D50w Syringe) 50 ml Q15M PRN IV DECREASED GLUCOSE; Start 09/13/18 at 13:00 Glucagon (Glucagen) 1 mg Q15M PRN IM DECREASED GLUCOSE; Start 09/13/18 at 13:00 Glucose (Glutose) 15 gm Q15M PRN BUCCAL DECREASED GLUCOSE; Start 09/13/18 at 13:00 Acetaminophen/ Hydrocodone Bitart ([place] (5/325)) 1 tab Q4H PRN PO MODERATE PAIN LEVEL 4-6; Start 09/13/18 at 13:00 Epoetin [place] (Epogen (Non Esrd/Non Oncology)) 6,000 units TuThSa@17 SC Last administered on 09/17/18 17:29; Admin Dose 6,000 UNITS; Start 09/14/18 at 17:00 Sevelamer Carbonate (Renvela) 800 mg WITH MEALS PO Last administered on 09/17/18 17:21; Admin Dose 800 MG; Start 09/14/18 at 08:00 Hydralazine HCl (Apresoline) 100 mg BID PO Last administered on 09/17/18 20:18; Admin Dose 100 MG; Start 09/14/18 at 21:00 Doxazosin Mesylate (Cardura) 2 mg HS PO Last administered on 09/17/18 20:18; Admin Dose 2 MG; Start 09/15/18 at 21:00 Isosorbide Dinitrate (Isordil) 40 mg TID PO Last administered on 09/17/18 20:18; Admin Dose 40 MG; Start 09/15/18 at 13:00 Hydralazine HCl (Apresoline) 10 mg Q6H PRN IV ELEVATED SYSTOLIC BP Last administered on 09/18/18 08:07; Admin Dose 10 MG; Start 09/16/18 at 11:00 Oseltamivir Phosphate (Tamiflu) 75 mg DAILY PO Last administered on 09/17/18 08:30; Admin Dose 75 MG; Start 09/16/18 at 13:00 Cefepime HCl 50 ml @ 100 mls/hr Q24H IVPB Last administered on 09/17/18at 15:15; Admin Dose 100 MLS/HR; Start 09/16/18 at 16:00 Vancomycin HCl (Vanco Iv Per Pharmacy) VANCOMYCIN PER PHARMACY PER PROTOCOL XX ; Start 09/16/18 at 15:30 Nifedipine (Procardia Xl) 30 mg BID PO Last administered on 09/17/18at 20:17; Admin Dose 30 MG; Start 09/16/18 at 16:30 Polyethylene Glycol (Miralax) 17 gm DAILY PO Last administered on 09/17/18 08:33; Admin Dose 17 GM; Start 09/16/18 at 19:00 Bumetanide (Bumex) 2 mg BID DIURETICS PO ; Start 09/18/18 at 18:00 Ondansetron HCl (Zofran Inj) 4 mg PACU ORDER PRN IV NAUSEA; Start 09/18/18 at 10:30; Stop 09/18/18 at 18:00 Labetalol HCl (Labetalol) 5 mg PACU ORDER PRN IV ELEVATED BLOOD PRESSURE; Start 09/18/18 at 10:30; Stop 09/18/18 at 18:00 Hydralazine HCl (Apresoline) 5 mg PACU ORDER PRN IV ELEVATED BLOOD PRESSURE; Start 09/18/18 at 10:30; Stop 09/18/18 at 18:00 LEXII REED Sep 18, 2018 11:23
--- NOTE | 2018-09-18 11:47 | NUR ---
procedure was finished 1011 per md notes. will start clear liquid 1211
[2018-09-18] MEDS: CHOLECALCIFEROL 1,000 UNIT TAB PO SCH (12:00)
[2018-09-18] MEDS: POLYETHYLENE GLYCOL 17 GM PACKET PO SCH (12:00)
[2018-09-18] MEDS: ISOSORBIDE DINITRATE 20 MG TAB PO SCH ×4 (12:00→20:57)
[2018-09-18] MEDS: FAMOTIDINE 20 MG TAB PO SCH ×2 (12:00→20:57)
--- NOTE | 2018-09-18 12:05 | NUR ---
pt refuses to take medications, he wants to sleep
[2018-09-18] MEDS: OSELTAMIVIR 75 MG CAP PO SCH ×2 (13:30→14:30)
[2018-09-18] MEDS: APIXABAN 5 MG TABLET PO SCH ×3 (13:35→20:58)
[2018-09-18] MEDS: NIFEdipine (XL) 30 MG TAB PO SCH ×3 (13:35→20:58)
[2018-09-18] MEDS: DOCUSATE SODIUM 100 MG CAP PO SCH ×3 (13:35→23:34)
--- NOTE | 2018-09-18 13:35 | NUR ---
pt still refusing to take his medications
--- NOTE | 2018-09-18 14:08 | CONS ---
Assessment/Plan Assessment/Plan Hospital Course Patient is awake looks comfortable complaining of lower back pain still febrile with a T-max of 102 WBC 8.3 platelets 130 neutrophils 72.4 BUN 90 creatinine 4.88 Microbiology: Blood culture persistently positive for MRSA Chest x-ray on admission revealed right base pneumonia with small pleural effusion. JAVIER revealed no vegetations. Bilateral lower extremities ultrasound was negative Antimicrobials: Cefepime, vancomycin Physical examination: This is a morbidly obese well-developed middle-aged man who is alert in no distress. Head atraumatic normocephalic sclera nonicteric neck is obese chest rise symmetrical breath sounds diminished bases heart: S1-S2 abdomen soft bowel sounds present extremities without cyanosis Assessment: 1. Sepsis on admission 2. Persistent MRSA bacteremia 3. Pneumonia, possible pleural effusion 4. Acute renal failure on chronic kidney disease 5. Morbid obesity 6. Diabetes Plan: We will change vancomycin to clindamycin IV, we will order lumbar spine MRI and WBC labeled nuclear scan. Follow nephrology and cardiology recommendations. Result Diagram: 09/18/18 0509/18/18 0517 Results 24hrs Laboratory Tests Test 09/17/18 17:18 09/17/18 20:15 09/18/18 05:17 09/18/18 07:34 Bedside Glucose 153 111 124 White Blood Count 8.3 Red Blood Count 2.69 L Hemoglobin 7.4 L Hematocrit 23.0 L Mean Corpuscular 85.5 Volume Mean Corpuscular 27.5 L Hemoglobin Mean Corpuscular 32.2 Hemoglobin Concent Red Cell 13.2 Distribution Width Platelet Count 130 L Mean Platelet Volume 11.2 H Immature 0.400 Granulocytes % Neutrophils % 72.4 Lymphocytes % 8.2 L Monocytes % 14.9 H Eosinophils % 3.9 Basophils % 0.2 Nucleated Red Blood 0.0 Cells % Immature 0.030 Granulocytes # Neutrophils # 6.0 Lymphocytes # 0.7 L Monocytes # 1.2 H Eosinophils # 0.3 Basophils # 0.0 Nucleated Red Blood 0.0 Cells # Sodium Level 138 Potassium Level 4.4 Chloride Level 102 Carbon Dioxide Level 22 Anion Gap 14 H Blood Urea Nitrogen 90 H Creatinine 4.88 H Est Glomerular 13 L Filtrat Rate mL/min Glucose Level 98 Calcium Level 8.9 Magnesium Level 2.3 Random Vancomycin 14.8 Level Test 09/18/18 11:08 Bedside Glucose 100 Consultation Date/Type/Reason Admit Date/Time Sep 13, 2018 at 08:45 Initial Consult Date 09/13/18 Type of Consult id Requesting Provider: LEXII REED Exam/Review of Systems Vital Signs Vitals Vital Signs Date Temp Pulse Resp B/P (MAP) Pulse Ox O2 O2 Flow FiO2 Time Delivery Rate 09/18/18 83 12:49 09/18/18 99.4 18 140/74 98 Nasal 2.0 11:15 (96) Cannula 09/18/18 30 01:05 Intake and Output 09/17/18 09/17/18 09/18/18 1515:00 23:00 07:00 IntakeIntake Total 1850 ml 700 ml OutputOutput Total 725 ml 1200 ml BalanceBalance 1125 ml -500 ml Medications Medications Current Medications Lorazepam (Ativan) 0.5 mg Q8H PRN PO ANXIETY; Start 09/13/18 at 12:30 Ondansetron HCl (Zofran Inj) 4 mg Q6H PRN IV NAUSEA AND/OR VOMITING Last administered on 09/16/18at 21:16; Admin Dose 4 MG; Start 09/13/18 at 12:30 Nitroglycerin (Nitroglycerin (Sl Tab) 0.4 Mg) 1 tab Q5M PRN SL CHEST PAIN; Start 09/13/18 at 12:30 Acetaminophen (Tylenol Tab) 650 mg Q6H PRN PO PAIN LEVEL 1-3 OR FEVER Last administered on 09/18/18 08:07; Admin Dose 650 MG; Start 09/13/18 at 12:30 Morphine Sulfate (morphine) 2 mg Q4H PRN IV SEVERE PAIN LEVEL 7-10 Last administered on 09/18/18at 03:51; Admin Dose 2 MG; Start 09/13/18 at 13:00 Zolpidem Tartrate (Ambien) 5 mg QHS PRN PO INSOMNIA Last administered on 09/14/18 22:38; Admin Dose 5 MG; Start 09/13/18 at 12:30 Docusate Sodium (Colace) 100 mg Q12H PO Last administered on 09/17/18at 23:39; Admin Dose 100 MG; Start 09/13/18 at 12:30 Famotidine (Pepcid) 20 mg Q12 PO Last administered on 09/17/18 20:19; Admin Dose 20 MG; Start 09/13/18 at 21:00 Apixaban (Eliquis) 2.5 mg BID PO Last administered on 09/17/18 20:19; Admin Dose 2.5 MG; Start 09/13/18 at 21:00 Atorvastatin Calcium (Lipitor) 80 mg QHS PO Last administered on 09/17/18 20:19; Admin Dose 80 MG; Start 09/13/18 at 21:00 Cholecalciferol (Vitamin D) 2,000 unit DAILY PO Last administered on 09/17/18at 08:33; Admin Dose 2,000 UNIT; Start 09/14/18 at 09:00 EZETIMIBE (Zetia) 10 mg HS PO Last administered on 09/17/18 20:19; Admin Dose 10 MG; Start 09/13/18 at 21:00 Insulin Glargine (Lantus) 30 units QHS SC Last administered on 09/17/18 20:20; Admin Dose 30 UNITS; Start 09/13/18 at 21:00 Isosorbide Mononitrate (Imdur) 30 mg DAILY PO Last administered on 09/17/18at 08:31; Admin Dose 30 MG; Start 09/14/18 at 09:00 Spironolactone (Aldactone) 25 mg DAILY PO Last administered on 09/17/18at 08:31; Admin Dose 25 MG; Start 09/14/18 at 09:00; Status Hold Insulin Aspart (Novolog Insulin Pen) 10 unit WITH MEALS SC Last administered on 09/17/18at 17:38; Admin Dose 10 UNIT; Start 09/13/18 at 18:00 Miscellaneous Information 1 ea NOTE XX ; Start 09/13/18 at 13:00 Glucose (Glutose) 15 gm Q15M PRN PO DECREASED GLUCOSE; Start 09/13/18 at 13:00 Glucose (Glutose) 22.5 gm Q15M PRN PO DECREASED GLUCOSE; Start 09/13/18 at 13:00 Dextrose (D50w Syringe) 25 ml Q15M PRN IV DECREASED GLUCOSE; Start 09/13/18 at 13:00 Dextrose (D50w Syringe) 50 ml Q15M PRN IV DECREASED GLUCOSE; Start 09/13/18 at 13:00 Glucagon (Glucagen) 1 mg Q15M PRN IM DECREASED GLUCOSE; Start 09/13/18 at 13:00 Glucose (Glutose) 15 gm Q15M PRN BUCCAL DECREASED GLUCOSE; Start 09/13/18 at 13:00 Acetaminophen/ Hydrocodone Bitart ([place] (5/325)) 1 tab Q4H PRN PO MODERATE PAIN LEVEL 4-6; Start 09/13/18 at 13:00 Epoetin [place] (Epogen (Non Esrd/Non Oncology)) 6,000 units TuThSa@17 SC Last administered on 09/17/18 17:29; Admin Dose 6,000 UNITS; Start 09/14/18 at 17:00 Sevelamer Carbonate (Renvela) 800 mg WITH MEALS PO Last administered on 09/17/18 17:21; Admin Dose 800 MG; Start 09/14/18 at 08:00 Hydralazine HCl (Apresoline) 100 mg BID PO Last administered on 09/17/18 20:18; Admin Dose 100 MG; Start 09/14/18 at 21:00 Doxazosin Mesylate (Cardura) 2 mg HS PO Last administered on 09/17/18 20:18; Admin Dose 2 MG; Start 09/15/18 at 21:00 Isosorbide Dinitrate (Isordil) 40 mg TID PO Last administered on 09/17/18 20:18; Admin Dose 40 MG; Start 09/15/18 at 13:00 Hydralazine HCl (Apresoline) 10 mg Q6H PRN IV ELEVATED SYSTOLIC BP Last administered on 09/18/18 08:07; Admin Dose 10 MG; Start 09/16/18 at 11:00 Oseltamivir Phosphate (Tamiflu) 75 mg DAILY PO Last administered on 09/17/18 08:30; Admin Dose 75 MG; Start 09/16/18 at 13:00 Cefepime HCl 50 ml @ 100 mls/hr Q24H IVPB Last administered on 09/17/18 15:15; Admin Dose 100 MLS/HR; Start 09/16/18 at 16:00 Vancomycin HCl (Vanco Iv Per Pharmacy) VANCOMYCIN PER PHARMACY PER PROTOCOL XX ; Start 09/16/18 at 15:30 Nifedipine (Procardia Xl) 30 mg BID PO Last administered on 09/17/18at 20:17; Admin Dose 30 MG; Start 09/16/18 at 16:30 Polyethylene Glycol (Miralax) 17 gm DAILY PO Last administered on 09/17/18at 08:33; Admin Dose 17 GM; Start 09/16/18 at 19:00 Bumetanide (Bumex) 2 mg BID DIURETICS PO ; Start 09/18/18 at 18:00 Ondansetron HCl (Zofran Inj) 4 mg PACU ORDER PRN IV NAUSEA; Start 09/18/18 at 10:30; Stop 09/18/18 at 18:00 Labetalol HCl (Labetalol) 5 mg PACU ORDER PRN IV ELEVATED BLOOD PRESSURE; Start 09/18/18 at 10:30; Stop 09/18/18 at 18:00 Hydralazine HCl (Apresoline) 5 mg PACU ORDER PRN IV ELEVATED BLOOD PRESSURE; Start 09/18/18 at 10:30; Stop 09/18/18 at 18:00 Date/Time of Note Date/Time of Note DATE: 09/18/18 TIME: 14:08 YOLETTE RODRIGUEZ NP Sep 18, 2018 14:08
[2018-09-18] MEDS: CLINDAMYCIN 600 MG/D5W (PMX) 50 ML IVPB SCH ×2 (14:44→21:01)
--- NOTE | 2018-09-18 14:52 | NUR ---
pt refuses warm compress.
[2018-09-18] MEDS: CEFEPIME 1GM/50 ML (PMX) 50 ML IVPB SCH (15:43)
--- NOTE | 2018-09-18 16:17 | NUR ---
pt picked up for mri. reminded pt to remove earring on his left ear. pt stated it's gold. Endorsed to transporter.
[2018-09-18] MEDS: BUMETANIDE 1 MG TAB PO SCH (17:21)
--- NOTE | 2018-09-18 18:32 | NUR ---
eoss pt transferred to [facility] for isolation . mrsa blood. pt still with fever episodes. [employer] changed medications. Tylenol prn and cooling measures.mri of lumbar spine done. awaiting for wbc scan in nuc med.
--- NOTE | 2018-09-18 18:56 | CONS ---
Date/Time of Note Date/Time of Note DATE: 09/18/18 TIME: 18:47 Assessment/Plan Assessment/Plan Assessment/Plan Assessment: * Chronic likely multifactorial anemia * Rule out GI bleeding overt or occult * Decompensated diastolic congestive heart failure * History of paroxysmal atrial fibrillation * Diabetes mellitus poorly controlled * Chronic kidney disease stage IV * Morbid obesity Plan: * Monitor for evidence of occult or overt GI bleeding, if + consider endoscopic examination Result Diagram: 09/18/18 0517 09/18/18 0517 Results 24hrs Laboratory Tests Test 09/17/18 20:15 09/18/18 05:17 09/18/18 07:34 09/18/18 11:08 Bedside Glucose 111 124 100 White Blood Count 8.3 Red Blood Count 2.69 L Hemoglobin 7.4 L Hematocrit 23.0 L Mean Corpuscular 85.5 Volume Mean Corpuscular 27.5 L Hemoglobin Mean Corpuscular 32.2 Hemoglobin Concent Red Cell 13.2 Distribution Width Platelet Count 130 L Mean Platelet Volume 11.2 H Immature 0.400 Granulocytes % Neutrophils % 72.4 Lymphocytes % 8.2 L Monocytes % 14.9 H Eosinophils % 3.9 Basophils % 0.2 Nucleated Red Blood 0.0 Cells % Immature 0.030 Granulocytes # Neutrophils # 6.0 Lymphocytes # 0.7 L Monocytes # 1.2 H Eosinophils # 0.3 Basophils # 0.0 Nucleated Red Blood 0.0 Cells # Sodium Level 138 Potassium Level 4.4 Chloride Level 102 Carbon Dioxide Level 22 Anion Gap 14 H Blood Urea Nitrogen 90 H Creatinine 4.88 H Est Glomerular 13 L Filtrat Rate mL/min Glucose Level 98 Calcium Level 8.9 Magnesium Level 2.3 Random Vancomycin 14.8 Level Test 09/18/18 17:15 Bedside Glucose 188 CC: MELA ELY MD ; Consultation Date/Type/Reason Admit Date/Time Sep 13, 2018 at 08:45 Date of Consultation: Sep 18, 2018 Type of Consult GI Reason for Consultation Anemia Hx of Present Illness 43-year-old male with multiple medical problems including chronic likely multifactorial anemia. The patient has experienced poor response to Epogen. Stool for occult blood has been negative x1. The patient denies any overt gastrointestinal bleeding such as hematemesis, melena or hematochezia. The patient does not experience any significant GI symptomatology such as heartburn, regurgitation, nausea, vomiting, abdominal pain, diarrhea or constipation. Patient cannot recall having had any endoscopic procedures in the past. At the present time the patient is experiencing exacerbation of CHF and clearly his anemia contributes to this process. The patient will be continued on present regimen further stool testing will be obtained and if evidence of overt or occult GI bleeding occurs and his cardiac and respiratory condition allows e ndoscopic examination will be advisable Review of Systems: [A 12 system, review was conducted and is negative except as noted in the HPI or here.] Gastrointestinal and liver: [As noted in HPI] Past Medical History Medical History: congestive heart failure, high cholesterol, hypertension, renal disease, other (Chronic anemia) Medications Current Medications Lorazepam (Ativan) 0.5 mg Q8H PRN PO ANXIETY; Start 09/13/18 at 12:30 Ondansetron HCl (Zofran Inj) 4 mg Q6H PRN IV NAUSEA AND/OR VOMITING Last administered on 09/16/18 21:16; Admin Dose 4 MG; Start 09/13/18 at 12:30 Nitroglycerin (Nitroglycerin (Sl Tab) 0.4 Mg) 1 tab Q5M PRN SL CHEST PAIN; Start 09/13/18 at 12:30 Acetaminophen (Tylenol Tab) 650 mg Q6H PRN PO PAIN LEVEL 1-3 OR FEVER Last administered on 09/18/18 14:30; Admin Dose 650 MG; Start 09/13/18 at 12:30 Morphine Sulfate (morphine) 2 mg Q4H PRN IV SEVERE PAIN LEVEL 7-10 Last administered on 09/18/18 03:51; Admin Dose 2 MG; Start 09/13/18 at 13:00 Zolpidem Tartrate (Ambien) 5 mg QHS PRN PO INSOMNIA Last administered on 09/14/18 22:38; Admin Dose 5 MG; Start 09/13/18 at 12:30 Docusate Sodium (Colace) 100 mg Q12H PO Last administered on 09/18/18 14:31; Admin Dose 100 MG; Start 09/13/18 at 12:30 Famotidine (Pepcid) 20 mg Q12 PO Last administered on 09/17/18 20:19; Admin Dose 20 MG; Start 09/13/18 at 21:00 Apixaban (Eliquis) 2.5 mg BID PO Last administered on 09/18/18 14:31; Admin Dose 2.5 MG; Start 09/13/18 at 21:00 Atorvastatin Calcium (Lipitor) 80 mg QHS PO Last administered on 09/17/18 20:19; Admin Dose 80 MG; Start 09/13/18 at 21:00 Cholecalciferol (Vitamin D) 2,000 unit DAILY PO Last administered on 09/17/18 08:33; Admin Dose 2,000 UNIT; Start 09/14/18 at 09:00 EZETIMIBE (Zetia) 10 mg HS PO Last administered on 09/17/18 20:19; Admin Dose 10 MG; Start 09/13/18 at 21:00 Insulin Glargine (Lantus) 30 units QHS SC Last administered on 09/17/18 20:20; Admin Dose 30 UNITS; Start 09/13/18 at 21:00 Isosorbide Mononitrate (Imdur) 30 mg DAILY PO Last administered on 09/17/18 08:31; Admin Dose 30 MG; Start 09/14/18 at 09:00 Spironolactone (Aldactone) 25 mg DAILY PO Last administered on 09/17/18 08:31; Admin Dose 25 MG; Start 09/14/18 at 09:00; Status Hold Insulin Aspart (Novolog Insulin Pen) 10 unit WITH MEALS SC Last administered on 09/18/18 17:24; Admin Dose 10 UNIT; Start 09/13/18 at 18:00 Miscellaneous Information 1 ea NOTE XX ; Start 09/13/18 at 13:00 Glucose (Glutose) 15 gm Q15M PRN PO DECREASED GLUCOSE; Start 09/13/18 at 13:00 Glucose (Glutose) 22.5 gm Q15M PRN PO DECREASED GLUCOSE; Start 09/13/18 at 13:00 Dextrose (D50w Syringe) 25 ml Q15M PRN IV DECREASED GLUCOSE; Start 09/13/18 at 13:00 Dextrose (D50w Syringe) 50 ml Q15M PRN IV DECREASED GLUCOSE; Start 09/13/18 at 13:00 Glucagon (Glucagen) 1 mg Q15M PRN IM DECREASED GLUCOSE; Start 09/13/18 at 13:00 Glucose (Glutose) 15 gm Q15M PRN BUCCAL DECREASED GLUCOSE; Start 09/13/18 at 1 3:00 Acetaminophen/ Hydrocodone Bitart ([place] (5/325)) 1 tab Q4H PRN PO MODERATE PAIN LEVEL 4-6; Start 09/13/18 at 13:00 Epoetin [place] (Epogen (Non Esrd/Non Oncology)) 6,000 units TuThSa@17 SC Last a dministered on 09/17/18 17:29; Admin Dose 6,000 UNITS; Start 09/14/18 at 17:00 Sevelamer Carbonate (Renvela) 800 mg WITH MEALS PO Last administered on 09/18/18 17:21; Admin Dose 800 MG; Start 09/14/18 at 08:00 Hydralazine HCl (Apresoline) 100 mg BID PO Last administered on 09/17/18 20:18; Admin Dose 100 MG; Start 09/14/18 at 21:00 Doxazosin Mesylate (Cardura) 2 mg HS PO Last administered on 09/17/18 20:18; Admin Dose 2 MG; Start 09/15/18 at 21:00 Isosorbide Dinitrate (Isordil) 40 mg TID PO Last administered on 09/18/18 14:31; Admin Dose 40 MG; Start 09/15/18 at 13:00 Hydralazine HCl (Apresoline) 10 mg Q6H PRN IV ELEVATED SYSTOLIC BP Last administered on 09/18/18 08:07; Admin Dose 10 MG; Start 09/16/18 at 11:00 Oseltamivir Phosphate (Tamiflu) 75 mg DAILY PO Last administered on 09/18/18 14:30; Admin Dose 75 MG; Start 09/16/18 at 13:00 Cefepime HCl 50 ml @ 100 mls/hr Q24H IVPB Last administered on 09/18/18 15:43; Admin Dose 100 MLS/HR; Start 09/16/18 at 16:00 Nifedipine (Procardia Xl) 30 mg BID PO Last administered on 09/18/18 14:31; Admin Dose 30 MG; Start 09/16/18 at 16:30 Polyethylene Glycol (Miralax) 17 gm DAILY PO Last administered on 09/17/18 08:33; Admin Dose 17 GM; Start 09/16/18 at 19:00 Bumetanide (Bumex) 2 mg BID DIURETICS PO Last administered on 1/23/19at 17:21; Admin Dose 2 MG; Start 09/18/18 at 18:00 Clindamycin HCl/ Dextrose 50 ml @ 50 mls/hr Q8 IVPB Last administered on 09/18/18at 14:44; Admin Dose 50 MLS/HR; Start 09/18/18 at 15:30 Allergies: Coded Allergies: ibuprofen (Unverified Allergy, Mild, 09/13/18) Past Surgical History Past Surgical Hx: other (left great toe amputation ) Social History Alcohol Use: none Smoking Status: Former smoker Drug Use: none Exam/Review of Systems Vital Signs Vitals Vital Signs Date Temp Pulse Resp B/P (MAP) Pulse Ox O2 O2 Flow FiO2 Time Delivery Rate 09/18/18 79 16:36 09/18/18 100.8 15:35 09/18/18 20 159/74 94 Room Air 15:30 (102) 09/18/18 2.0 11:15 09/18/18 30 01:05 Intake and Output 09/17/18 09/17/18 09/18/18 1515:00 23:00 07:00 IntakeIntake Total 1850 ml 700 ml OutputOutput Total 725 ml 1200 ml BalanceBalance 1125 ml -500 ml Exam PHYSICAL EXAMINATION: GENERAL: Well developed, well nourished, obese, alert & oriented x 3, in mild respiratory distress SKIN: No lesions, no stigmata chronic liver disease, no evidence of bleeding diathesis LYMPHATIC: No palpable lymphadenopathy. HEAD: Normocephalic, atraumatic, no tenderness. EYES: Pupils equal reactive to light and accommodation, full extraocular movements, sclera clear, non-icteric, no discharge. EARS/NOSE AND THROAT: Ears normal, nose normal, oropharynx normal, oral membranes well hydrated without lesions. NECK: Supple, no masses, thyroid normal, JVP within normal limits, carotids normal without bruits. CHEST: Inspection within normal limits. CARDIOVASCULAR: Heart: Regular rate and rhythm, no murmurs, gallops or rubs. Peripheral pulses present within normal limits, no cyanosis, clubbing or edemas. No pulsatile abdominal mass RESPIRATORY: Lungs coarse crackles bilaterally. GASTROINTESTINAL AND LIVER: Abdomen: Soft, non tenderness, non-distended, no hernias, no masses, no organomegaly, no ascites, no guarding, no rebound t enderness, normoactive bowel sounds. Rectal: Deferred. GENITOURINARY: [Male genitalia within normal limits.] EXTREMITIES: 2+ pitting edema. No cyanosis or clubbing Medications Medications Current Medications Lorazepam (Ativan) 0.5 mg Q8H PRN PO ANXIETY; Start 09/13/18 at 12:30 Ondansetron HCl (Zofran Inj) 4 mg Q6H PRN IV NAUSEA AND/OR VOMITING Last administered on 09/16/18 21:16; Admin Dose 4 MG; Start 09/13/18 at 12:30 Nitroglycerin (Nitroglycerin (Sl Tab) 0.4 Mg) 1 tab Q5M PRN SL CHEST PAIN; Start 09/13/18 at 12:30 Acetaminophen (Tylenol Tab) 650 mg Q6H PRN PO PAIN LEVEL 1-3 OR FEVER Last administered on 09/18/18 14:30; Admin Dose 650 MG; Start 09/13/18 at 12:30 Morphine Sulfate (morphine) 2 mg Q4H PRN IV SEVERE PAIN LEVEL 7-10 Last administered on 09/18/18 03:51; Admin Dose 2 MG; Start 09/13/18 at 13:00 Zolpidem Tartrate (Ambien) 5 mg QHS PRN PO INSOMNIA Last administered on 09/14/18 22:38; Admin Dose 5 MG; Start 09/13/18 at 12:30 Docusate Sodium (Colace) 100 mg Q12H PO Last administered on 09/18/18 14:31; Admin Dose 100 MG; Start 09/13/18 at 12:30 Famotidine (Pepcid) 20 mg Q12 PO Last administered on 09/17/18 20:19; Admin Dose 20 MG; Start 09/13/18 at 21:00 Apixaban (Eliquis) 2.5 mg BID PO Last administered on 09/18/18 14:31; Admin Dose 2.5 MG; Start 09/13/18 at 21:00 Atorvastatin Calcium (Lipitor) 80 mg QHS PO Last administered on 09/17/18 20:19; Admin Dose 80 MG; Start 09/13/18 at 21:00 Cholecalciferol (Vitamin D) 2,000 unit DAILY PO Last administered on 09/17/18 08:33; Admin Dose 2,000 UNIT; Start 09/14/18 at 09:00 EZETIMIBE (Zetia) 10 mg HS PO Last administered on 09/17/18 20:19; Admin Dose 10 MG; Start 09/13/18 at 21:00 Insulin Glargine (Lantus) 30 units QHS SC Last administered on 09/17/18 20:20; Admin Dose 30 UNITS; Start 09/13/18 at 21:00 Isosorbide Mononitrate (Imdur) 30 mg DAILY PO Last administered on 09/17/18 08:31; Admin Dose 30 MG; Start 09/14/18 at 09:00 Spironolactone (Aldactone) 25 mg DAILY PO Last administered on 09/17/18 08:31; Admin Dose 25 MG; Start 09/14/18 at 09:00; Status Hold Insulin Aspart (Novolog Insulin Pen) 10 unit WITH MEALS SC Last administered on 09/18/18 17:24; Admin Dose 10 UNIT; Start 09/13/18 at 18:00 Miscellaneous Information 1 ea NOTE XX ; Start 09/13/18 at 13:00 Glucose (Glutose) 15 gm Q15M PRN PO DECREASED GLUCOSE; Start 09/13/18 at 13:00 Glucose (Glutose) 22.5 gm Q15M PRN PO DECREASED GLUCOSE; Start 09/13/18 at 13:00 Dextrose (D50w Syringe) 25 ml Q15M PRN IV DECREASED GLUCOSE; Start 09/13/18 at 13:00 Dextrose (D50w Syringe) 50 ml Q15M PRN IV DECREASED GLUCOSE; Start 09/13/18 at 13:00 Glucagon (Glucagen) 1 mg Q15M PRN IM DECREASED GLUCOSE; Start 09/13/18 at 13:00 Glucose (Glutose) 15 gm Q15M PRN BUCCAL DECREASED GLUCOSE; Start 09/13/18 at 13:00 Acetaminophen/ Hydrocodone Bitart ([place] (5/325)) 1 tab Q4H PRN PO MODERATE PAIN LEVEL 4-6; Start 09/13/18 at 13:00 Epoetin [place] (Epogen (Non Esrd/Non Oncology)) 6,000 units TuThSa@17 SC Last administered on 09/17/18at 17:29; Admin Dose 6,000 UNITS; Start 09/14/18 at 17:00 Sevelamer Carbonate (Renvela) 800 mg WITH MEALS PO Last administered on 09/18/18 17:21; Admin Dose 800 MG; Start 09/14/18 at 08:00 Hydralazine HCl (Apresoline) 100 mg BID PO Last administered on 09/17/18 20:18; Admin Dose 100 MG; Start 09/14/18 at 21:00 Doxazosin Mesylate (Cardura) 2 mg HS PO Last administered on 09/17/18 20:18; Admin Dose 2 MG; Start 09/15/18 at 21:00 Isosorbide Dinitrate (Isordil) 40 mg TID PO Last administered on 09/18/18 14:31; Admin Dose 40 MG; Start 09/15/18 at 13:00 Hydralazine HCl (Apresoline) 10 mg Q6H PRN IV ELEVATED SYSTOLIC BP Last administered on 09/18/18 08:07; Admin Dose 10 MG; Start 09/16/18 at 11:00 Oseltamivir Phosphate (Tamiflu) 75 mg DAILY PO Last administered on 09/18/18 14:30; Admin Dose 75 MG; Start 09/16/18 at 13:00 Cefepime HCl 50 ml @ 100 mls/hr Q24H IVPB Last administered on 09/18/18 15:43; Admin Dose 100 MLS/HR; Start 09/16/18 at 16:00 Nifedipine (Procardia Xl) 30 mg BID PO Last administered on 09/18/18 14:31; Admin Dose 30 MG; Start 09/16/18 at 16:30 Polyethylene Glycol (Miralax) 17 gm DAILY PO Last administered on 09/17/18 08:33; Admin Dose 17 GM; Start 09/16/18 at 19:00 Bumetanide (Bumex) 2 mg BID DIURETICS PO Last administered on 09/18/18 17:21; Admin Dose 2 MG; Start 09/18/18 at 18:00 Clindamycin HCl/ Dextrose 50 ml @ 50 mls/hr Q8 IVPB Last administered on 09/18/18 14:44; Admin Dose 50 MLS/HR; Start 09/18/18 at 15:30 MELA ELY MD Sep 18, 2018 18:56
[2018-09-18] MEDS: EZETIMIBE 10 MG TAB PO SCH (20:57)
[2018-09-18] MEDS: DOXAZOSIN 2 MG TAB PO SCH (20:57)
[2018-09-18] MEDS: ATORVASTATIN 80 MG TAB PO SCH (20:57)
[2018-09-18] MEDS: INSULIN GLARGINE [LANTus] (100 UNITS/ML) SYG SC SCH (21:11)
[2018-09-19] VITALS (10 sets, daily range): BP systolic 123–156; BP diastolic 60–73; PULSE 65–93; RESP 18–20
[2018-09-19] MEDS: hydrALAzine 20 MG INJ IV PRN (00:18)
[2018-09-19] MEDS: ACETAMINOPHEN 325 MG TAB PO PRN ×2 (03:48→10:02)
--- NOTE | 2018-09-19 03:51 | NUR ---
Nurse Note Pt with elevated temp., refusing to remove socks, sweater, or blankets. Refusing ice packs, amenable to PO tylenol only at this time. Pt refusing bed alarm, states he "will not fall" and that RN cannot turn on bed or chair alarm. Will continue to monitor pt.
[2018-09-19] MEDS: BUMETANIDE 1 MG TAB PO SCH (05:05)
[2018-09-19] MEDS: CLINDAMYCIN 600 MG/D5W (PMX) 50 ML IVPB SCH ×3 (05:06→22:47)
--- NOTE | 2018-09-19 05:26 | NUR ---
Nurse Note Pt temp rechecked, 101. Pt agreed to remove sweater at this time.
--- NOTE | 2018-09-19 05:59 | NUR ---
Nurse Note Pt Hgb 6.[address] Florence notified, order received for 2 units blood transfusion.
[2018-09-19] MEDS ORDERED: SOD CHLORIDE 0.9% 250 ML IV* ONE (06:13)
--- NOTE | 2018-09-19 07:48 | NUR ---
EOSS Pt monitored through night, with ongoing fever, acetaminophen given x1. Pt refuses to take off blanket/sweater/socks. Pt also refuses acetaminophen at times. Pt continually educated on medication compliance and cooperation with plan of care. Pt refused bed alarm. Pt also states he does not want to eat because it makes him bloated and just wants juice, jello, etc. Hgb this AM critical, notified, order received for 2 units blood transfusion.
[2018-09-19] MEDS: SEVELAMER CARBONATE 800 MG TABLET PO SCH ×3 (08:40→17:43)
[2018-09-19] MEDS: ISOSORBIDE DINITRATE 20 MG TAB PO SCH ×3 (08:41→20:52)
[2018-09-19] MEDS: NIFEdipine (XL) 30 MG TAB PO SCH ×2 (08:41→20:52)
[2018-09-19] MEDS: FAMOTIDINE 20 MG TAB PO SCH ×2 (08:42→20:52)
[2018-09-19] MEDS: CHOLECALCIFEROL 1,000 UNIT TAB PO SCH (08:42)
[2018-09-19] MEDS: ISOSORBIDE MONONITRATE(SR)30 MG TAB PO SCH (08:42)
[2018-09-19] MEDS: OSELTAMIVIR 75 MG CAP PO SCH (08:42)
[2018-09-19] MEDS: POLYETHYLENE GLYCOL 17 GM PACKET PO SCH (08:43)
[2018-09-19] MEDS: APIXABAN 5 MG TABLET PO SCH ×2 (08:43→20:51)
[2018-09-19] MEDS: INSULIN ASPART [NOVOLOG] 3 ML PEN SC SCH ×3 (09:01→17:48)
--- NOTE | 2018-09-19 11:47 | CONS ---
Assessment/Plan Assessment/Plan Assessment/Plan (Daily) 1.Acute kidney injury on CKD III due to hemodynamics from CHF 2. acute CHF exacerbation, acute on chronic, diastolic, with fluid overload and pulmonary congestion with anasarca 3. 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 H/o HTN 5. LE edema/anasarca 6. HL 7. Anemia of chronic kidney disease Plan: BUN/Cr went upto 91/4.74, losartan and Spirnolactone has been on hold, Stopped bumex today Hb dropped to 6.7- gettign 2 U PRBC, will give lasix 20mg IV x 1 in between PRBC on epogen 6000 units SQ TTS for anemia Continue Renvela 800mg TID for hyperphosphatemia - monitor electrolytes and replace aggressively Renal US on previous visit- unremarkable, Kidney size R 12.0, left 11.2 cm, normal echogenicity on last visit Nifedipine 60mg BID , Coreg 6.25mg PO BID, Hydralazine 100mg PO TID wiill follow up Consultation Date/Type/Reason Admit Date/Time Sep 13, 2018 at 08:45 Initial Consult Date 09/13/18 Type of Consult NEPHROLOGY Requesting Provider: LEXII REED Date/Time of Note DATE: 09/19/18 TIME: 11:47 24 HR Interval Summary Free Text/Dictation Hb dropped to 6.7, Bp stable, Leg edema improved much better, will hold off on bumex today Exam/Review of Systems Vital Signs Vitals Vital Signs Date Temp Pulse Resp B/P (MAP) Pulse Ox O2 O2 Flow FiO2 Time Delivery Rate 09/19/18 98.6 67 18 131/65 95 11:17 (87) 09/19/18 Nasal 2.0 08:47 Cannula 09/18/18 30 01:05 Intake and Output 09/18/18 09/18/18 09/19/18 1414:59 22:59 06:59 IntakeIntake Total 650 ml 800 ml OutputOutput Total 800 ml BalanceBalance 650 ml 0 ml Exam GEN: awake, alert, no acute distress Respiratory: Bibasilar rales, no wheezing Cardiovascular: regular rate and rhythm, nl pulses Gastrointestinal: soft, distended Musculoskeletal: muscle tone, muscle weakness, swelling Extremities: normal pulses,1-2+ LE pitting edema Neurological: PURCHASING DIRECTOR II-XII intact, nl mental status, nl speech, nl strength Results Result Diagram: 09/19/18 0447 09/19/18 0447 Results 24hrs Laboratory Tests Test 09/18/18 17:15 09/18/18 20:51 09/19/18 04:47 09/19/18 06:55 Bedside Glucose 188 110 White Blood Count 8.4 Red Blood Count 2.44 L Hemoglobin 6.7 *L Hematocrit 20.6 L Mean Corpuscular 84.4 Volume Mean Corpuscular 27.5 L Hemoglobin Mean Corpuscular 32.5 Hemoglobin Concent Red Cell 13.2 Distribution Width Platelet Count 142 Mean Platelet 11.9 H Volume Immature 0.500 H Granulocytes % Neutrophils % 71.3 Lymphocytes % 7.9 L Monocytes % 18.1 H Eosinophils % 2.0 Basophils % 0.2 Nucleated Red 0.0 Blood Cells % Immature 0.040 H Granulocytes # Neutrophils # 6.0 Lymphocytes # 0.7 L Monocytes # 1.5 H Eosinophils # 0.2 Basophils # 0.0 Nucleated Red 0.0 Blood Cells # Sodium Level 136 Potassium Level 4.0 Chloride Level 99 Carbon Dioxide 21 Level Anion Gap 16 H Blood Urea 91 H Nitrogen Creatinine 4.74 H Est Glomerular 13 L Filtrat Rate mL/min Glucose Level 171 Calcium Level 8.5 Creatine Kinase 346 H Thyroid 1.410 Stimulating Hormone (TSH) Free Thyroxine 1.19 Free 2.34 L Triiodothyronine (T3) pg/mL Lab Scanned Report REFERENCE LAB Test 09/19/18 08:39 Bedside Glucose 154 LOLIS CROWDER MD Sep 19, 2018 11:47
--- NOTE | 2018-09-19 11:55 | CONS ---
Assessment/Plan Assessment/Plan Hospital Course (Demo Recall) No acute events overnight patient looks comfortable, no fevers Microbiology: Blood culture persistently positive for MRSA Chest x-ray on admission revealed right base pneumonia with small pleural effusion. JAVIER revealed no vegetations. Bilateral lower extremities ultrasound was negative Antimicrobials: Cefepime, clindamycin Physical examination: This is a morbidly obese well-developed middle-aged man who is alert in no distress. Head atraumatic normocephalic sclera nonicteric neck is obese chest rise symmetrical breath sounds diminished bases heart: S1-S2 abdomen soft bowel sounds present extremities without cyanosis Assessment: 1. Sepsis on admission 2. Persistent MRSA bacteremia 3. Pneumonia, possible pleural effusion 4. Acute renal failure on chronic kidney disease 5. Morbid obesity 6. Diabetes Plan: Clinically unchanged. Lumbar spine MRI done yesterday was nondiagnostic secondary to motion artifact, continue antibiotics, await for WBC labeled nuclear scan, repeat blood cultures Consultation Date/Type/Reason Admit Date/Time Sep 13, 2018 at 08:45 Initial Consult Date 09/13/18 Type of Consult id Requesting Provider: LEXII REED Date/Time of Note DATE: 09/19/18 TIME: 11:53 Exam/Review of Systems Exam Vitals Vital Signs Date Temp Pulse Resp B/P (MAP) Pulse Ox O2 O2 Flow FiO2 Time Delivery Rate 09/19/18 98.6 67 18 131/65 95 11:17 (87) 09/19/18 Nasal 2.0 08:47 Cannula 09/18/18 30 01:05 Intake and Output 09/18/18 09/18/18 09/19/18 1515:00 23:00 07:00 IntakeIntake Total 650 ml 800 ml OutputOutput Total 800 ml BalanceBalance 650 ml 0 ml Results Result Diagram: 09/19/18 0447 09/19/18 044 Results 24hrs Laboratory Tests Test 09/18/18 17:15 09/18/18 20:51 09/19/18 04:47 09/19/18 06:55 Bedside Glucose 188 110 White Blood Count 8.4 Red Blood Count 2.44 L Hemoglobin 6.7 *L Hematocrit 20.6 L Mean Corpuscular 84.4 Volume Mean Corpuscular 27.5 L Hemoglobin Mean Corpuscular 32.5 Hemoglobin Concent Red Cell 13.2 Distribution Width Platelet Count 142 Mean Platelet 11.9 H Volume Immature 0.500 H Granulocytes % Neutrophils % 71.3 Lymphocytes % 7.9 L Monocytes % 18.1 H Eosinophils % 2.0 Basophils % 0.2 Nucleated Red 0.0 Blood Cells % Immature 0.040 H Granulocytes # Neutrophils # 6.0 Lymphocytes # 0.7 L Monocytes # 1.5 H Eosinophils # 0.2 Basophils # 0.0 Nucleated Red 0.0 Blood Cells # Sodium Level 136 Potassium Level 4.0 Chloride Level 99 Carbon Dioxide 21 Level Anion Gap 16 H Blood Urea 91 H Nitrogen Creatinine 4.74 H Est Glomerular 13 L Filtrat Rate mL/min Glucose Level 171 Calcium Level 8.5 Creatine Kinase 346 H Thyroid 1.410 Stimulating Hormone (TSH) Free Thyroxine 1.19 Free 2.34 L Triiodothyronine (T3) pg/mL Lab Scanned Report REFERENCE LAB Test 09/19/18 08:39 Bedside Glucose 154 YOLETTE RODRIGUEZ NP Sep 19, 2018 11:55
[2018-09-19] MEDS: DOCUSATE SODIUM 100 MG CAP PO SCH ×2 (12:05→23:16)
--- NOTE | 2018-09-19 12:57 | CONS ---
Assessment/Plan Cardiology NYHA: III Heart Failure Type: Diastolic Assessment/Plan Hospital Course (Demo Recall) Assessment/Plan IMP: 1.Bacteremia-staph aureus. s/p JAVIER 09/08 with no definite findings of vegetations 2.PAF 3.CHF 4.Renal failure Recc: -Tele -Continue abx's and f/u cx data -Copntinue hydralazine/procardia/isordil -pnding tagged WBC scan -ongoing ID f/u and work up Consultation Date/Type/Reason Admit Date/Time Sep 13, 2018 at 08:45 Initial Consult Date 09/13/18 Type of Consult Cardiology Reason for Consultation CHF/fevers/bacteremia Requesting Provider: LEXII REED Date/Time of Note DATE: 09/19/18 TIME: 12:55 Exam/Review of Systems Vital Signs Vitals Vital Signs Date Temp Pulse Resp B/P (MAP) Pulse Ox O2 O2 Flow FiO2 Time Delivery Rate 09/19/18 98.6 67 18 131/65 95 11:17 (87) 09/19/18 Nasal 2.0 08:47 Cannula 09/18/18 30 01:05 Intake and Output 09/18/18 09/18/18 09/19/18 1414:59 22:59 06:59 IntakeIntake Total 650 ml 800 ml OutputOutput Total 800 ml BalanceBalance 650 ml 0 ml Exam Exam Review of Systems: CONSTITUTIONAL: No fevers, chills. PULMONARY: No sob CARDIOVASCULAR: No chest pain/palpitations GASTROINTESTINAL: No nausea/vomiting. GENITOURINARY: No hematuria/dysuria. MUSCULOSKELETAL: No myagias/arthalgias. PSYCHIATRIC: The patient denies depression. NEUROLOGIC: No weakness Constitutional: alert Psych: no complaints Head: normocephalic ENMT: mucosa pink and moist Neck: supple, jvd (9 cm water) Respiratory: clear to auscultation Cardiovascular: regular rate and rhythm Gastrointestinal: soft, non-tender Musculoskeletal: muscle tone (normal) Extremities: edema (none) Labs Result Diagram: 09/19/187 09/19/187 Results 24hrs Laboratory Tests Test 09/18/18 17:15 09/18/18 20:51 09/19/18 04:47 09/19/18 06:55 Bedside Glucose 188 110 White Blood Count 8.4 Red Blood Count 2.44 L Hemoglobin 6.7 *L Hematocrit 20.6 L Mean Corpuscular 84.4 Volume Mean Corpuscular 27.5 L Hemoglobin Mean Corpuscular 32.5 Hemoglobin Concent Red Cell 13.2 Distribution Width Platelet Count 142 Mean Platelet 11.9 H Volume Immature 0.500 H Granulocytes % Neutrophils % 71.3 Lymphocytes % 7.9 L Monocytes % 18.1 H Eosinophils % 2.0 Basophils % 0.2 Nucleated Red 0.0 Blood Cells % Immature 0.040 H Granulocytes # Neutrophils # 6.0 Lymphocytes # 0.7 L Monocytes # 1.5 H Eosinophils # 0.2 Basophils # 0.0 Nucleated Red 0.0 Blood Cells # Sodium Level 136 Potassium Level 4.0 Chloride Level 99 Carbon Dioxide 21 Level Anion Gap 16 H Blood Urea 91 H Nitrogen Creatinine 4.74 H Est Glomerular 13 L Filtrat Rate mL/min Glucose Level 171 Calcium Level 8.5 Creatine Kinase 346 H Thyroid 1.410 Stimulating Hormone (TSH) Free Thyroxine 1.19 Free 2.34 L Triiodothyronine (T3) pg/mL Lab Scanned Report REFERENCE LAB Test 09/19/18 08:39 09/19/18 12:23 Bedside Glucose 154 83 VI ADAMES Sep 19, 2018 12:57
[2018-09-19] MEDS ORDERED: FUROSEMIDE 20 MG INJ IV ONE (16:00)
[2018-09-19] MEDS: CEFEPIME 1GM/50 ML (PMX) 50 ML IVPB SCH (16:13)
[2018-09-19] MEDS ORDERED: POLYETHYLENE GLYCOL 17 GM PACKET PO PRN (16:30)
--- NOTE | 2018-09-19 16:32 | PN ---
Date/Time of Note Date/Time of Note DATE: 09/19/18 TIME: 16:25 Assessment/Plan VTE Prophylaxis Risk score (from [facility])>0 risk: 4 SCD applied (from [facility]): No SCD contraindicated: other (scds) Pharmacological prophylaxis: other (scds) Lines/Catheters IV Catheter Type (from [facility]): Peripheral IV Urinary Cath still in place: No Assessment/Plan Hospital Course Assessment: * Chronic likely multifactorial anemia * Rule out GI bleeding overt or occult * Decompensated diastolic congestive heart failure * History of paroxysmal atrial fibrillation * Diabetes mellitus poorly controlled * Chronic kidney disease stage IV * Morbid obesity Plan: Monitor for evidence of occult or overt GI bleeding, if positive we will consider endoscopic examination- however currently no plan. Monitor labs transfuse as needed Patient seen in collaboration with Dr. Dai Subjective: Course reviewed with nursing staff Patient interviewed and examined All labs, imaging and other results reviewed The patient resting bed, tolerated diet fairly well- currently receiving blood transfusion No overt signs of GI bleed, x1 brown BM today. PHYSICAL EXAMINATION: GENERAL: Well developed, well nourished, obese, alert & oriented x 3, in mild respiratory distress SKIN: No lesions EYES: Pupils equal reactive to light, no discharge. EARS/NOSE AND THROAT: Ears normal, nose normal. NECK: Supple, no masses CHEST: Inspection within normal limits. CARDIOVASCULAR: Heart: Regular rate and rhythm, RESPIRATORY: Lungs coarse crackles bilaterally. GASTROINTESTINAL AND LIVER: Abdomen: Soft, non tenderness, non-distended, no hernias, no masses, no organomegaly, no ascites, no guarding, no rebound tenderness, normoactive bowel sounds. Rectal: Deferred. EXTREMITIES: 2+ pitting edema. No cyanosis or clubbing Result Diagram: 09/19/187 09/19/187 Results 24hrs Laboratory Tests Test 09/18/18 17:15 09/18/18 20:51 09/19/18 04:47 09/19/18 06:55 Bedside Glucose 188 110 White Blood Count 8.4 Red Blood Count 2.44 L Hemoglobin 6.7 *L Hematocrit 20.6 L Mean Corpuscular 84.4 Volume Mean Corpuscular 27.5 L Hemoglobin Mean Corpuscular 32.5 Hemoglobin Concent Red Cell 13.2 Distribution Width Platelet Count 142 Mean Platelet 11.9 H Volume Immature 0.500 H Granulocytes % Neutrophils % 71.3 Lymphocytes % 7.9 L Monocytes % 18.1 H Eosinophils % 2.0 Basophils % 0.2 Nucleated Red 0.0 Blood Cells % Immature 0.040 H Granulocytes # Neutrophils # 6.0 Lymphocytes # 0.7 L Monocytes # 1.5 H Eosinophils # 0.2 Basophils # 0.0 Nucleated Red 0.0 Blood Cells # Sodium Level 136 Potassium Level 4.0 Chloride Level 99 Carbon Dioxide 21 Level Anion Gap 16 H Blood Urea 91 H Nitrogen Creatinine 4.74 H Est Glomerular 13 L Filtrat Rate mL/min Glucose Level 171 Calcium Level 8.5 Creatine Kinase 346 H Thyroid 1.410 Stimulating Hormone (TSH) Free Thyroxine 1.19 Free 2.34 L Triiodothyronine (T3) pg/mL Lab Scanned Report REFERENCE LAB Test 09/19/18 08:39 09/19/18 12:23 Bedside Glucose 154 83 Exam/Review of Systems Exam Vitals Vital Signs Date Temp Pulse Resp B/P (MAP) Pulse Ox O2 O2 Flow FiO2 Time Delivery Rate 09/19/18 3.0 15:34 09/19/18 98.1 79 19 123/69 96 15:16 (87) 09/19/18 Nasal 08:47 Cannula 09/18/18 30 01:05 Intake and Output 09/18/18 09/18/18 09/19/18 1515:00 23:00 07:00 IntakeIntake Total 650 ml 800 ml OutputOutput Total 800 ml BalanceBalance 650 ml 0 ml Results Results 24hrs Laboratory Tests Test 09/18/18 17:15 09/18/18 20:51 09/19/18 04:47 09/19/18 06:55 Bedside Glucose 188 110 White Blood Count 8.4 Red Blood Count 2.44 L Hemoglobin 6.7 *L Hematocrit 20.6 L Mean Corpuscular 84.4 Volume Mean Corpuscular 27.5 L Hemoglobin Mean Corpuscular 32.5 Hemoglobin Concent Red Cell 13.2 Distribution Width Platelet Count 142 Mean Platelet 11.9 H Volume Immature 0.500 H Granulocytes % Neutrophils % 71.3 Lymphocytes % 7.9 L Monocytes % 18.1 H Eosinophils % 2.0 Basophils % 0.2 Nucleated Red 0.0 Blood Cells % Immature 0.040 H Granulocytes # Neutrophils # 6.0 Lymphocytes # 0.7 L Monocytes # 1.5 H Eosinophils # 0.2 Basophils # 0.0 Nucleated Red 0.0 Blood Cells # Sodium Level 136 Potassium Level 4.0 Chloride Level 99 Carbon Dioxide 21 Level Anion Gap 16 H Blood Urea 91 H Nitrogen Creatinine 4.74 H Est Glomerular 13 L Filtrat Rate mL/min Glucose Level 171 Calcium Level 8.5 Creatine Kinase 346 H Thyroid 1.410 Stimulating Hormone (TSH) Free Thyroxine 1.19 Free 2.34 L Triiodothyronine (T3) pg/mL Lab Scanned Report REFERENCE LAB Test 09/19/18 08:39 09/19/18 12:23 Bedside Glucose 154 83 APOORVA CEDENO Sep 19, 2018 16:32
[2018-09-19] MEDS: EPOETIN 3000 UNITS/ML (NON ESRD/NON ONCOLOGY) SC SCH (18:26)
--- NOTE | 2018-09-19 19:40 | NUR ---
EOSS Patient remains stable, no fevers during shift today. AAOx4, VSS. Ambulates steady, refuses bed alarms. 1x unit PRBC infused, 1 currently running. Endorsed to oncoming RN. Awaiting WBC scan.
--- NOTE | 2018-09-19 20:45 | PN ---
Date/Time of Note Date/Time of Note DATE: 09/19/18 TIME: 20:40 Assessment/Plan VTE Prophylaxis Risk score (from [facility])>0 risk: 4 SCD applied (from [facility]): Yes Pharmacological prophylaxis: apixaban Lines/Catheters IV Catheter Type (from [facility]): Peripheral IV Urinary Cath still in place: No Assessment/Plan Result Diagram: 09/19/187 09/19/187 Results 24hrs Laboratory Tests Test 09/18/18 20:51 09/19/18 04:47 09/19/18 06:55 09/19/18 08:39 Bedside Glucose 110 154 White Blood Count 8.4 Red Blood Count 2.44 L Hemoglobin 6.7 *L Hematocrit 20.6 L Mean Corpuscular 84.4 Volume Mean Corpuscular 27.5 L Hemoglobin Mean Corpuscular 32.5 Hemoglobin Concent Red Cell 13.2 Distribution Width Platelet Count 142 Mean Platelet 11.9 H Volume Immature 0.500 H Granulocytes % Neutrophils % 71.3 Lymphocytes % 7.9 L Monocytes % 18.1 H Eosinophils % 2.0 Basophils % 0.2 Nucleated Red 0.0 Blood Cells % Immature 0.040 H Granulocytes # Neutrophils # 6.0 Lymphocytes # 0.7 L Monocytes # 1.5 H Eosinophils # 0.2 Basophils # 0.0 Nucleated Red 0.0 Blood Cells # Sodium Level 136 Potassium Level 4.0 Chloride Level 99 Carbon Dioxide 21 Level Anion Gap 16 H Blood Urea 91 H Nitrogen Creatinine 4.74 H Est Glomerular 13 L Filtrat Rate mL/min Glucose Level 171 Calcium Level 8.5 Creatine Kinase 346 H Thyroid 1.410 Stimulating Hormone (TSH) Free Thyroxine 1.19 Free 2.34 L Triiodothyronine (T3) pg/mL Lab Scanned Report REFERENCE LAB Test 09/19/18 12:23 09/19/18 17:39 09/19/18 20:27 Bedside Glucose 83 125 124 Subjective 24 Hr Interval Summary Free Text/Dictation s: continues to have intermittent fever, transfusion on going today for hgb 6.7, o: Constitutional: Lethargic, arousable , oriented, obese, warm to touch Head: atraumatic, normocephalic Neck: non-tender, supple Respiratory: clear to auscultation, diminished Cardiovascular: regular rate and rhythm Gastrointestinal: S/ NT / ND / +BS Extremities: no edema, good radial pulses A/P: A 43-year-old male who presented with shortness of breath and bilateral lower extremity edema managed for CHF exacerbation, now resolved, currently managed as follows: 1. Sepsis 2/2 staph aureus bacteremia -Blood cultures are growing staph aureus, no clear source, Both TTE and JAVIER showed no vegetations -ID following and managing abx -Continue antibiotics,continue to follow cultures till negative, needs to be 24hr fever free prior to d/ c -MRI was poor quality but showed no abscess -WBC scan pending 2. Acute on chronic kidney disease stage IV. -nephro managing, losartan on hold, -CR improved ? -continue to trend, renally dose all meds 3. Anemia of chronic kidney disease. -hgb continues to drop despite epogen, another unit PRBC ongoing -monitor for now, but patient is on eliquis -Stool OB negative x1 will repeat -?hold eliquis, GI recs noted, repeat stool OB 4. Paroxysmal atrial fibrillation. -patient continued on eliquis BID -remains in sinus with good rate control 5. Diabetes mellitus with suboptimal home control, -A1C likely unreliable in this patient with severe anemia -improved inpatient control, continue current regimen and titrate as indicated 6. Morbid obesity. -currently on calorie controlled diet -diet and exercise counselling re-inforced 7. Substance abuse / Cocaine use. -Cessation Therapy: Pt. was counselled for greater than 3 minutes on the health risks of continued abuse and the benefits of cessation, this will continue to be reinforced throughout hospitalization. -SW to provide resources 8. s/p Congestive heart failure exacerbation. Diastolic -Last echo showed ejection fraction of 60%, but abnormal diastolic function. -compensated, cardio managing, appreciate input 9. History of pleural effusion, status post thoracentesis in the past. 10. Chronic dyslipidemia. -continue statin 11. Elevated TSH -Will get repeat levels and also check free to T3 and free T4 and intervene as indicated 12. Mild iron deficiency with low iron saturation -Ongoing short course of intravenous iron replacement, stool occult blood testing is negative so far, may need more invasive workup 13. Mild rhabdomyolysis -Likely secondary to febrile illness, trend levels till normal. 14. dyslipidemia with low HDL -statin Dispo: Plan of care as above, remain inpatient and await clinical improvement. Exam/Review of Systems Exam Vitals Vital Signs Date Temp Pulse Resp B/P (MAP) Pulse Ox O2 O2 Flow FiO2 Time Delivery Rate 09/19/18 75 16:44 09/19/18 3.0 15:34 09/19/18 98.1 19 123/69 96 15:16 (87) 09/19/18 Nasal 08:47 Cannula 09/18/18 30 01:05 Intake and Output 09/18/18 09/18/18 09/19/18 1515:00 23:00 07:00 IntakeIntake Total 650 ml 800 ml OutputOutput Total 800 ml BalanceBalance 650 ml 0 ml Results Results 24hrs Laboratory Tests Test 09/18/18 20:51 09/19/18 04:47 09/19/18 06:55 09/19/18 08:39 Bedside Glucose 110 154 White Blood Count 8.4 Red Blood Count 2.44 L Hemoglobin 6.7 *L Hematocrit 20.6 L Mean Corpuscular 84.4 Volume Mean Corpuscular 27.5 L Hemoglobin Mean Corpuscular 32.5 Hemoglobin Concent Red Cell 13.2 Distribution Width Platelet Count 142 Mean Platelet 11.9 H Volume Immature 0.500 H Granulocytes % Neutrophils % 71.3 Lymphocytes % 7.9 L Monocytes % 18.1 H Eosinophils % 2.0 Basophils % 0.2 Nucleated Red 0.0 Blood Cells % Immature 0.040 H Granulocytes # Neutrophils # 6.0 Lymphocytes # 0.7 L Monocytes # 1.5 H Eosinophils # 0.2 Basophils # 0.0 Nucleated Red 0.0 Blood Cells # Sodium Level 136 Potassium Level 4.0 Chloride Level 99 Carbon Dioxide 21 Level Anion Gap 16 H Blood Urea 91 H Nitrogen Creatinine 4.74 H Est Glomerular 13 L Filtrat Rate mL/min Glucose Level 171 Calcium Level 8.5 Creatine Kinase 346 H Thyroid 1.410 Stimulating Hormone (TSH) Free Thyroxine 1.19 Free 2.34 L Triiodothyronine (T3) pg/mL Lab Scanned Report REFERENCE LAB Test 09/19/18 12:23 09/19/18 17:39 09/19/18 20:27 Bedside Glucose 83 125 124 LEXII REED Sep 19, 2018 20:45
[2018-09-19] MEDS: INSULIN GLARGINE [LANTus] (100 UNITS/ML) SYG SC SCH (20:46)
[2018-09-19] MEDS: DOXAZOSIN 2 MG TAB PO SCH (20:51)
[2018-09-19] MEDS: ATORVASTATIN 80 MG TAB PO SCH (20:52)
[2018-09-19] MEDS: EZETIMIBE 10 MG TAB PO SCH (20:53)
[2018-09-19] MEDS: morphine 4 MG/ML VIAL IV PRN (21:03)
[2018-09-19] MEDS: ZOLPIDEM 5 MG TAB PO PRN (22:47)
[2018-09-19] MEDS: MAGNESIUM HYDROXIDE 30ML CUP PO PRN (22:48)
[2018-09-20] VITALS (13 sets, daily range): BP systolic 118–171; BP diastolic 58–72; PULSE 75–90; RESP 18–19
[2018-09-20] MEDS: DOCUSATE SODIUM 100 MG CAP PO SCH ×3 (00:24→21:42)
[2018-09-20] MEDS: CLINDAMYCIN 600 MG/D5W (PMX) 50 ML IVPB SCH ×3 (05:59→21:41)
--- NOTE | 2018-09-20 07:06 | NUR ---
RN NOTES: PT STAYED AWAKE MOST OF TIME DURING THE NIGHT. NOT WANTING ON BIPAP. SIT AT BEDSIDE, SPOKE TO HIS MOTHER ON HIS CELL PHONE AND WAS CRYING FOR AWHILE. PT DID NOT WANT TO SHARE HIS CONVERSATION WITH HIS MOTHER. THEN HE FINISHED TALKING, STOPPED CRYING, ASKED FOR SLEEPING MED. C/O BM EVERY DAY, SMALL AMOUNT BUT "HARD STOOL". ORDERS TAP WATER ENEMA GIVEN. PT HAD BM X1. SENT STOOL OBX1. PT ASKED FOR HIGHER DOSE OF MORPHINE AND SHOWER BUT WENT TO SLEEP AFTER DEMANDS. INFORMED DR. MO, WILL F/U IN AM SHIFT WHEN PT WOKE UP. OFFERED DIABETIC EDUCATION IN AM REGARDING PT SAID TOOK LANTUS WITH DIFFERRENT DOSAGE AT HOME, SOMETIMES SKIP LANTUS WHEN B/S BELOW 130. PT REFUSED LANTUS LAST NIGHT AT FIRST BUT ACCEPTED AFTER RN'S EXPLAIN THE PURPOSE OF LANTUS. ENDORSED.
[2018-09-20] MEDS: SEVELAMER CARBONATE 800 MG TABLET PO SCH ×3 (07:51→17:27)
[2018-09-20] MEDS: INSULIN ASPART [NOVOLOG] 3 ML PEN SC SCH ×3 (07:57→17:31)
[2018-09-20] MEDS: ISOSORBIDE MONONITRATE(SR)30 MG TAB PO SCH (08:54)
[2018-09-20] MEDS: NIFEdipine (XL) 30 MG TAB PO SCH ×2 (08:54→21:43)
[2018-09-20] MEDS: POLYETHYLENE GLYCOL 17 GM PACKET PO SCH (08:55)
[2018-09-20] MEDS: OSELTAMIVIR 75 MG CAP PO SCH (08:55)
[2018-09-20] MEDS: CHOLECALCIFEROL 1,000 UNIT TAB PO SCH (08:55)
[2018-09-20] MEDS: APIXABAN 5 MG TABLET PO SCH ×2 (08:55→21:43)
[2018-09-20] MEDS: ISOSORBIDE DINITRATE 20 MG TAB PO SCH ×3 (08:55→21:42)
[2018-09-20] MEDS: FAMOTIDINE 20 MG TAB PO SCH ×2 (08:55→21:42)
--- NOTE | 2018-09-20 09:27 | CONS ---
Assessment/Plan Assessment/Plan Assessment/Plan (Daily) 1.Acute kidney injury on CKD III due to hemodynamics from CHF 2. acute CHF exacerbation, acute on chronic, diastolic, with fluid overload and pulmonary congestion with anasarca 3. 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 H/o HTN 5. LE edema/anasarca 6. HL 7. Anemia of chronic kidney disease Plan: BUN/Cr contines to rise, 100/5.42, C/o back pain and tail bone pain , MRI LS SPine showed diffuse OA and bone disease - Losartan, Spironolactone and bumex has been on hold s.p2 U PRBC yesterday on epogen 6000 units SQ TTS for anemia Continue Renvela 800mg TID for hyperphosphatemia - monitor electrolytes and replace aggressively Renal US on previous visit- unremarkable, Kidney size R 12.0, left 11.2 cm, normal echogenicity on last visit Nifedipine 60mg BID , Coreg 6.25mg PO BID, Hydralazine 100mg PO TID Discussed with pt about HD options, he is not agreeing with HD, he wants to wait and he wants to talk to his primary care physician, will try to reach out to his PMD wiill follow up Consultation Date/Type/Reason Admit Date/Time Sep 13, 2018 at 08:45 Initial Consult Date 09/13/18 Type of Consult NEPHROLOGY Requesting Provider: LEXII REED Date/Time of Note DATE: 09/20/18 TIME: 09:26 24 HR Interval Summary Free Text/Dictation BUN/Cr contines to rise, 100/5.42, C/o back pain and tail bone pain , MRI LS SPine showed diffuse OA and bone disease Exam/Review of Systems Exam Vitals Vital Signs Date Temp Pulse Resp B/P (MAP) Pulse Ox O2 O2 Flow FiO2 Time Delivery Rate 09/20/18 Nasal 2.0 09:00 Cannula 09/20/18 98.5 82 19 139/63 97 07:38 (88) 09/20/18 35 01:34 Intake and Output 09/19/18 09/19/18 09/20/18 1515:00 23:00 07:00 IntakeIntake Total 600 ml 800 ml OutputOutput Total 950 ml BalanceBalance 600 ml -150 ml PHYSICAL EXAM: GEN: awake, alert, no acute distress Respiratory: Bibasilar rales, no wheezing Cardiovascular: regular rate and rhythm, nl pulses Gastrointestinal: soft, distended Musculoskeletal: muscle tone, muscle weakness, swelling Extremities: normal pulses,1-2+ LE pitting edema Neurological: CIRCULATION MAN II-XII intact, nl mental status, nl speech, nl strength Results Result Diagram: 09/20/18 0526 09/20/18 0526 Results 24hrs Laboratory Tests Test 09/19/18 12:23 09/19/18 17:39 09/19/18 20:27 09/20/18 05:22 Bedside Glucose 83 125 124 Lab Scanned BLOOD TRANSFUSIO Report N Test 09/20/18 05:26 09/20/18 07:50 White Blood Count 8.2 Red Blood Count 3.12 #L Hemoglobin 8.6 #L Hematocrit 26.8 #L Mean Corpuscular 85.9 Volume Mean Corpuscular 27.6 L Hemoglobin Mean Corpuscular 32.1 Hemoglobin Concen t Red Cell 13.2 Distribution Width Platelet Count 164 Mean Platelet 11.5 H Volume Immature 0.400 Granulocytes % Neutrophils % 69.3 Lymphocytes % 7.6 L Monocytes % 16.7 H Eosinophils % 5.6 Basophils % 0.4 Nucleated Red 0.0 Blood Cells % Immature 0.030 Granulocytes # Neutrophils # 5.7 Lymphocytes # 0.6 L Monocytes # 1.4 H Eosinophils # 0.5 Basophils # 0.0 Nucleated Red 0.0 Blood Cells # Sodium Level 138 Potassium Level 4.3 Chloride Level 98 Carbon Dioxide 23 Level Anion Gap 17 H Blood Urea 100 H Nitrogen Creatinine 5.42 H Est Glomerular 12 L Filtrat Rate mL/min Glucose Level 143 Calcium Level 9.0 Bedside Glucose 136 LOLIS CROWDER MD Sep 20, 2018 09:27
[2018-09-20] MEDS: morphine 4 MG/ML VIAL IV PRN ×2 (10:00→21:59)
--- NOTE | 2018-09-20 13:06 | CONS ---
Assessment/Plan Assessment/Plan Assessment/Plan (Daily) 1.Bacteremia-staph aureus. s/p JAVIER 09/08 with no definite findings of vegetations - on anti-Bx now 2.PAF - now in sinus - rate well controlled 3.CHF - acute on chronic with ARF - plan for renal team to follow 4.Renal failure - Dr. Pascual follows 5. HTN - con't to adjust Rx concurrently with renal team. Consultation Date/Type/Reason Admit Date/Time Sep 13, 2018 at 08:45 Initial Consult Date 09/13/18 Requesting Provider: LEXII REED Date/Time of Note DATE: 09/20/18 TIME: 13:04 24 HR Interval Summary Free Text/Dictation NO acute events - BP in good range - no CP now. ROS: No fever, no chills, no nausea, no vomiting, no diarrhea/constipation No recent weight changes No chest pain, no PND, no orthopnea - stable SOB No dizziness, blurred vision No thirst, no heat or cold intolerance Exam/Review of Systems Exam Vitals Vital Signs Date Temp Pulse Resp B/P (MAP) Pulse Ox O2 O2 Flow FiO2 Time Delivery Rate 09/20/18 98.6 79 19 128/60 97 11:12 (82) 09/20/18 Nasal 2.0 09:00 Cannula 09/20/18 35 01:34 Intake and Output 09/19/18 09/19/18 09/20/18 1515:00 23:00 07:00 IntakeIntake Total 600 ml 800 ml OutputOutput Total 950 ml BalanceBalance 600 ml -150 ml Additional Comments General: WN/WD/NAD, AOx 3 HEENT: Unicetric/atraumatic/EOMI ( follow commands) NECK: JVD elevated, no thyromegaly Lymph: no lymphadenopathy HEART: regular with no S3, II/ systolic murmur at apex, PMI L LUNGS: Coarse sounds ABD: soft, NT, ND, +BS : Intact Neuro: non focal SKIN: chronic changes EXT: + edema Results Result Diagram: 09/20/1852509/20/18525 Results 24hrs Laboratory Tests Test 09/19/18 17:39 09/19/18 20:27 09/20/18 05:22 09/20/18 05:26 Bedside Glucose 125 124 Lab Scanned BLOOD TRANSFUSIO Report N White Blood Count 8.2 Red Blood Count 3.12 #L Hemoglobin 8.6 #L Hematocrit 26.8 #L Mean Corpuscular 85.9 Volume Mean Corpuscular 27.6 L Hemoglobin Mean Corpuscular 32.1 Hemoglobin Concen t Red Cell 13.2 Distribution Width Platelet Count 164 Mean Platelet 11.5 H Volume Immature 0.400 Granulocytes % Neutrophils % 69.3 Lymphocytes % 7.6 L Monocytes % 16.7 H Eosinophils % 5.6 Basophils % 0.4 Nucleated Red 0.0 Blood Cells % Immature 0.030 Granulocytes # Neutrophils # 5.7 Lymphocytes # 0.6 L Monocytes # 1.4 H Eosinophils # 0.5 Basophils # 0.0 Nucleated Red 0.0 Blood Cells # Sodium Level 138 Potassium Level 4.3 Chloride Level 98 Carbon Dioxide 23 Level Anion Gap 17 H Blood Urea 100 H Nitrogen Creatinine 5.42 H Est Glomerular 12 L Filtrat Rate mL/min Glucose Level 143 Calcium Level 9.0 Test 09/20/18 07:50 09/20/18 12:05 Bedside Glucose 136 96 DELIA BILLY MD Sep 20, 2018 13:06
--- NOTE | 2018-09-20 14:29 | CONS ---
Assessment/Plan Assessment/Plan Hospital Course (Demo Recall) Alert, lying comfortably in bed, no fevers Microbiology: Blood culture on admission positive for MRSA, repeat blood cultures negative Chest x-ray on admission revealed right base pneumonia with small pleural effusion. JAVIER revealed no vegetations. WBC labeled nuclear scan negative. Bilateral lower extremities ultrasound was negative Antimicrobials: Cefepime, clindamycin Physical examination: This is a morbidly obese well-developed middle-aged man who is alert in no distress. Head atraumatic normocephalic sclera nonicteric neck is obese chest rise symmetrical breath sounds diminished bases heart: S1-S2 abdomen soft bowel sounds present extremities without cyanosis Assessment: 1. Sepsis on admission 2. Persistent MRSA bacteremia 3. Pneumonia, possible pleural effusion 4. Acute renal failure on chronic kidney disease 5. Morbid obesity 6. Diabetes Plan: Clinically unchanged. Lumbar spine MRI was nondiagnostic secondary to motion artifact, WBC labeled nuclear scan revealed no evidence of infection, repeat blood cultures negative, continue antibiotics for at least 2 more weeks. Repeat cxr in am Consultation Date/Type/Reason Admit Date/Time Sep 13, 2018 at 08:45 Initial Consult Date 09/13/18 Type of Consult id Requesting Provider: LEXII REED Date/Time of Note DATE: 09/20/18 TIME: 14:27 Exam/Review of Systems Exam Vitals Vital Signs Date Temp Pulse Resp B/P (MAP) Pulse Ox O2 O2 Flow FiO2 Time Delivery Rate 09/20/18 79 12:00 09/20/18 98.6 19 128/60 97 11:12 (82) 09/20/18 Nasal 2.0 09:00 Cannula 09/20/18 35 01:34 Intake and Output 09/19/18 09/19/18 09/20/18 1515:00 23:00 07:00 IntakeIntake Total 600 ml 800 ml OutputOutput Total 950 ml BalanceBalance 600 ml -150 ml Results Result Diagram: 09/20/1852509/20/18525 Results 24hrs Laboratory Tests Test 09/19/18 17:39 09/19/18 20:27 09/20/18 05:22 09/20/18 05:26 Bedside Glucose 125 124 Lab Scanned BLOOD TRANSFUSIO Report N White Blood Count 8.2 Red Blood Count 3.12 #L Hemoglobin 8.6 #L Hematocrit 26.8 #L Mean Corpuscular 85.9 Volume Mean Corpuscular 27.6 L Hemoglobin Mean Corpuscular 32.1 Hemoglobin Concen t Red Cell 13.2 Distribution Width Platelet Count 164 Mean Platelet 11.5 H Volume Immature 0.400 Granulocytes % Neutrophils % 69.3 Lymphocytes % 7.6 L Monocytes % 16.7 H Eosinophils % 5.6 Basophils % 0.4 Nucleated Red 0.0 Blood Cells % Immature 0.030 Granulocytes # Neutrophils # 5.7 Lymphocytes # 0.6 L Monocytes # 1.4 H Eosinophils # 0.5 Basophils # 0.0 Nucleated Red 0.0 Blood Cells # Sodium Level 138 Potassium Level 4.3 Chloride Level 98 Carbon Dioxide 23 Level Anion Gap 17 H Blood Urea 100 H Nitrogen Creatinine 5.42 H Est Glomerular 12 L Filtrat Rate mL/min Glucose Level 143 Calcium Level 9.0 Test 09/20/18 05:34 09/20/18 07:50 09/20/18 12:05 Stool Occult NEGATIVE Blood Bedside Glucose 136 96 Medications Medication Current Medications Lorazepam (Ativan) 0.5 mg Q8H PRN PO ANXIETY; Start 09/13/18 at 12:30 Ondansetron HCl (Zofran Inj) 4 mg Q6H PRN IV NAUSEA AND/OR VOMITING Last administered on 09/16/18 21:16; Admin Dose 4 MG; Start 09/13/18 at 12:30 Nitroglycerin (Nitroglycerin (Sl Tab) 0.4 Mg) 1 tab Q5M PRN SL CHEST PAIN; Start 09/13/18 at 12:30 Acetaminophen (Tylenol Tab) 650 mg Q6H PRN PO PAIN LEVEL 1-3 OR FEVER Last administered on 09/19/18 10:02; Admin Dose 650 MG; Start 09/13/18 at 12:30 Morphine Sulfate (morphine) 2 mg Q4H PRN IV SEVERE PAIN LEVEL 7-10 Last administered on 09/20/18 10:00; Admin Dose 2 MG; Start 09/13/18 at 13:00 Zolpidem Tartrate (Ambien) 5 mg QHS PRN PO INSOMNIA Last administered on 09/19/18 22:47; Admin Dose 5 MG; Start 09/13/18 at 12:30 Docusate Sodium (Colace) 100 mg Q12H PO Last administered on 09/20/18 12:07; Admin Dose 100 MG; Start 09/13/18 at 12:30 Famotidine (Pepcid) 20 mg Q12 PO Last administered on 09/20/18 08:55; Admin Dose 20 MG; Start 09/13/18 at 21:00 Apixaban (Eliquis) 2.5 mg BID PO Last administered on 09/20/18 08:55; Admin Dose 2.5 MG; Start 09/13/18 at 21:00 Atorvastatin Calcium (Lipitor) 80 mg QHS PO Last administered on 09/19/18 20:52; Admin Dose 80 MG; Start 09/13/18 at 21:00 Cholecalciferol (Vitamin D) 2,000 unit DAILY PO Last administered on 09/20/18 08:55; Admin Dose 2,000 UNIT; Start 09/14/18 at 09:00 EZETIMIBE (Zetia) 10 mg HS PO Last administered on 09/19/18 20:53; Admin Dose 10 MG; Start 09/13/18 at 21:00 Insulin Glargine (Lantus) 30 units QHS SC Last administered on 09/19/18 20:46; Admin Dose 30 UNITS; Start 09/13/18 at 21:00 Isosorbide Mononitrate (Imdur) 30 mg DAILY PO Last administered on 09/20/18 08:54; Admin Dose 30 MG; Start 09/14/18 at 09:00 Spironolactone (Aldactone) 25 mg DAILY PO Last administered on 09/17/18 08:31; Admin Dose 25 MG; Start 09/14/18 at 09:00; Status Hold Insulin Aspart (Novolog Insulin Pen) 10 unit WITH MEALS SC Last administered on 09/20/18 12:14; Admin Dose 10 UNIT; Start 09/13/18 at 18:00 Miscellaneous Information 1 ea NOTE XX ; Start 09/13/18 at 13:00 Glucose (Glutose) 15 gm Q15M PRN PO DECREASED GLUCOSE; Start 09/13/18 at 13:00 Glucose (Glutose) 22.5 gm Q15M PRN PO DECREASED GLUCOSE; Start 09/13/18 at 13:00 Dextrose (D50w Syringe) 25 ml Q15M PRN IV DECREASED GLUCOSE; Start 09/13/18 at 13:00 Dextrose (D50w Syringe) 50 ml Q15M PRN IV DECREASED GLUCOSE; Start 09/13/18 at 13:00 Glucagon (Glucagen) 1 mg Q15M PRN IM DECREASED GLUCOSE; Start 09/13/18 at 13:00 Glucose (Glutose) 15 gm Q15M PRN BUCCAL DECREASED GLUCOSE; Start 09/13/18 at 13:00 Acetaminophen/ Hydrocodone Bitart ([place] (5/325)) 1 tab Q4H PRN PO MODERATE PAIN LEVEL 4-6; Start 09/13/18 at 13:00 Epoetin [place] (Epogen (Non Esrd/Non Oncology)) 6,000 units TuThSa@17 SC Last administered on 09/19/18 18:26; Admin Dose 6,000 UNITS; Start 09/14/18 at 17:00 Sevelamer Carbonate (Renvela) 800 mg WITH MEALS PO Last administered on 12:07; Admin Dose 800 MG; Start 09/14/18 at 08:00 Hydralazine HCl (Apresoline) 100 mg BID PO Last administered on 09/20/18 08:54; Admin Dose 100 MG; Start 09/14/18 at 21:00 Doxazosin Mesylate (Cardura) 2 mg HS PO Last administered on 09/19/18 20:51; Admin Dose 2 MG; Start 09/15/18 at 21:00 Isosorbide Dinitrate (Isordil) 40 mg TID PO Last administered on 09/20/18 12:09; Admin Dose 40 MG; Start 09/15/18 at 13:00 Hydralazine HCl (Apresoline) 10 mg Q6H PRN IV ELEVATED SYSTOLIC BP Last ad ministered on 09/19/18 00:18; Admin Dose 10 MG; Start 09/16/18 at 11:00 Cefepime HCl 50 ml @ 100 mls/hr Q24H IVPB Last administered on 09/19/18 16:13; Admin Dose 100 MLS/HR; Start 09/16/18 at 16:00 Nifedipine (Procardia Xl) 30 mg BID PO Last administered on 09/20/18 08:54; Admin Dose 30 MG; Start 09/16/18 at 16:30 Polyethylene Glycol (Miralax) 17 gm DAILY PO Last administered on 1/22/19at 0 8:33; Admin Dose 17 GM; Start 09/16/18 at 19:00 Clindamycin HCl/ Dextrose 50 ml @ 50 mls/hr Q8 IVPB Last administered on 09/20/18at 05:59; Admin Dose 50 MLS/HR; Start 09/18/18 at 15:30 Polyethylene Glycol (Miralax) 17 gm DAILY PRN PO constipation Last administered on 09/19/18at 18:30; Admin Dose 17 GM; Start 09/19/18 at 16:30 Magnesium Hydroxide (Milk Of Mag) 30 ml BID PRN PO CONSTIPATION Last ad ministered on 09/19/18at 22:48; Admin Dose 30 ML; Start 09/19/18 at 23:00 YOLETTE RODRIGUEZ NP Sep 20, 2018 14:29
[2018-09-20] MEDS: CEFEPIME 1GM/50 ML (PMX) 50 ML IVPB SCH (16:00)
[2018-09-20] MEDS ORDERED: traMADol 50 MG TAB PO PRN (16:30)
--- NOTE | 2018-09-20 20:05 | NUR ---
EOSS Patient remained stable, afebrile, VSS, AAOx4. In am, patient stated he experienced hallucinations last night and early am. Dr. Perez was notified and came to speak with the patient. Patient also complained of lower back pain. CT Pelvis was ordered and not yet done. Nuc med WBC scan was done today as well. Continue with plan of care. Endorsed to oncoming RN.
[2018-09-20] MEDS: ATORVASTATIN 80 MG TAB PO SCH (21:42)
[2018-09-20] MEDS: DOXAZOSIN 2 MG TAB PO SCH (21:42)
[2018-09-20] MEDS: EZETIMIBE 10 MG TAB PO SCH (21:43)
[2018-09-20] MEDS: MAGNESIUM HYDROXIDE 30ML CUP PO PRN (21:59)
[2018-09-20] MEDS: INSULIN GLARGINE [LANTus] (100 UNITS/ML) SYG SC SCH (22:24)
[2018-09-21] VITALS (11 sets, daily range): BP systolic 139–170; BP diastolic 65–77; PULSE 75–90; RESP 19–20
[2018-09-21] MEDS ORDERED: FLUTICASONE 0.05% 16 GM NAS SPRAY NASAL ONE (01:00)
[2018-09-21] MEDS: CLINDAMYCIN 600 MG/D5W (PMX) 50 ML IVPB SCH ×3 (06:27→21:33)
--- NOTE | 2018-09-21 07:14 | NUR ---
Called Dr. Florence re PTT today of 90.1; no new orders.
--- NOTE | 2018-09-21 07:44 | NUR ---
Pt. had an uneventful night, SR, normal V/S, slept well, no bleeding noted, occult blood negative x2.
--- NOTE | 2018-09-21 07:56 | PN ---
DATE: 09/16/2018 SUBJECTIVE: The patient is having some hallucinations, per nursing. The patient confirms this, but says it does not bother him. He thought it was just a bit funny. He actually wants his morphine dos e increased. The patient is reporting severe pain in his tailbone. PHYSICAL EXAMINATION: VITAL SIGNS: Temperature is 98.5, pulse is 82, respirations 19, blood pressure 139/63, saturations 9 7% on room air. GENERAL: The patient sitting at the edge of the bed. He is talking with his family. The patient is alert and oriented, in no distress. HEENT: Head is normocephalic. Pupils equal and reactive. NECK: Supple. CHEST: Clear to auscultation. CARDIOVASCULAR: S1, S2; no added sounds or murmurs. ABDOMEN: Soft, nontender, nondistended. BACK: Examination of his back does reveal point tenderness in the middle of his gluteal cleft right on the bone in the midline. EXTREMITIES: Lower extremity still with just mild trace edema. SKIN: Devoid of rash or jaundice. PSYCHIATRIC: Not having any hallucinations at this time; denies suicidal or homicidal ideations. LABORATORY VALUES: Concerning that his creatinine went up today to 5.42, but the good thing is he meza s had no fever and his hemoglobin is better at 8.6. He did get transfused yesterday. IMAGING: The tagged WBC scan came back negative, and the MRI that was done on the as well as me ntioned earlier did show diffuse degenerative changes, but no significant cord abnormalities. There was no evidence, more importantly, of a spinal cord infection. ASSESSMENT: A 43-year-old male who has presented with shortness of breath and bilateral lower extrem ity edema, originally admitted and managed for congestive heart failure exacerbation, which is actual ly now compensated, is currently managed as follows: 1. Sepsis with methicillin-resistant Staphylococcus aureus Staphylococcus bacteremia. 2. Abctv-oe-rjzqhxd kidney disease, stage IV. 3. Paroxysmal atrial fibrillation, currently in sinus, with good rate control. 4. Anemia of chronic kidney disease, status post transfusion of 4 units of packed red cells so far o n this admission. 5. Diabetes mellitus with suboptimal home control with excellent inpatient control. 6. Morbid obesity. 7. Substance abuse/cocaine use. 8. Status post congestive heart failure exacerbation, diastolic. 9. Noncompliance with therapy. 10. History of pleural effusion, status post paracentesis in the past ____ . 11. Concern for subclinical hypothyroidism, for which repeat thyroid-stimulating hormone came back n ormal, which shows as mild rhabdomyolysis, likely secondary to febrile illness, resolved. 12. New-o nset hallucinations. PLAN 1. Hallucinations are likely secondary to narcotic use; however, the patient has refused and decline d, despite my advice, for me to discontinue his narcotics. He is actually asking for an increase in dose, which I will not be giving him at this time. I will continue to monitor for now. I have also offered antipsychotics, and the patient has refused. The patient states he is not hearing voices. Terell meza just occasionally has visual hallucinations, and he feels this is something he can handle. Nursing staff also confirmed that the patient does not get agitated or anything. We will continue to observ e for now. 2. The patient's renal function, as mentioned earlier, got worst. Per nephrology, observe in-house for now and see how the trend goes. Hopefully, the patient will not require renal replacement therap y. 3. Still no source of his aureus bacteremia has been found, JAVIER negative, WBC scan negative, MRI of the back negative. Unfortunately, we were unable to do this with contrast due to renal function, so for now we will just treat bacteremia. Will speak with ID if we should treat for empiric endocarditi s based on history of cocaine use, even though even the JAVIER was negative. The patient also denied ev er using IV drugs. He says he is not on cocaine. Hence, we will defer to ID on recommendation for l santana of treatment for bacteremia. Of note, is that his blood cultures have been negative, and the p atient has been fever free for more than 24 hours, so from this standpoint, he is stable for discharg e. 4. Regarding back pain, the patient states he had a fall in this facility some time ago and has been having the back pain since then. This was the basis for the MRI. Nephrology recommending a CT of t he pelvis to further evaluate for bony abnormalities. No evidence of degenerative disease on an MRI, however. We will order CT pelvis without contrast to ensure no occult fractures. For now, will con tinue all other supportive care. The patient continues to be counseled on the need to refrain from s ubstance use and abuse. Continue close monitoring, antibiotics, and other supportive care. Evaluation time has been more than 45 minutes. Dictated By: LEXII REED MD BA/NTS Conf#: [id number] DID#: [id number] CC: LEXII REED MD;*EndCC*
[2018-09-21] MEDS: DOCUSATE SODIUM 100 MG CAP PO SCH ×2 (08:00→21:12)
[2018-09-21] MEDS: SEVELAMER CARBONATE 800 MG TABLET PO SCH ×3 (08:00→17:07)
[2018-09-21] MEDS: ISOSORBIDE DINITRATE 20 MG TAB PO SCH (08:00)
[2018-09-21] MEDS: APIXABAN 5 MG TABLET PO SCH ×2 (08:00→21:12)
[2018-09-21] MEDS: FAMOTIDINE 20 MG TAB PO SCH ×2 (08:00→21:13)
[2018-09-21] MEDS: ISOSORBIDE MONONITRATE(SR)30 MG TAB PO SCH (08:00)
[2018-09-21] MEDS: NIFEdipine (XL) 30 MG TAB PO SCH ×2 (08:00→21:13)
[2018-09-21] MEDS: FLUTICASONE 0.05% 16 GM NAS SPRAY NASAL SCH ×2 (08:01→21:25)
[2018-09-21] MEDS: CHOLECALCIFEROL 1,000 UNIT TAB PO SCH (08:01)
[2018-09-21] MEDS: POLYETHYLENE GLYCOL 17 GM PACKET PO SCH (08:01)
[2018-09-21] MEDS: INSULIN ASPART [NOVOLOG] 3 ML PEN SC SCH ×3 (08:13→17:14)
--- NOTE | 2018-09-21 12:57 | CONS ---
Assessment/Plan Assessment/Plan Assessment/Plan (Daily) 1.Bacteremia-staph aureus 2.PAF 3.CHF 4.Renal failure Hypertensive Continue Imdur and increased hydralazine continue nifedipine Continue Eliquis Continue Zetia Continue Insulin Consultation Date/Type/Reason Admit Date/Time Sep 13, 2018 at 08:45 Date/Time of Note DATE: 09/21/18 TIME: 12:53 Constitutional: no complaints Respiratory: no complaints Cardiovascular: no complaints Gastrointestinal: no complaints Past Medical History Medical History: congestive heart failure, high cholesterol, hypertension, renal disease, other (Chronic anemia) Home Meds Active Scripts Levofloxacin* (Levaquin*) 250 Mg Tablet, 250 MG PO DAILY@06 for 2 Days, TAB Prov:MERARY SAHU MD 05/10/18 Losartan Potassium* (Cozaar*) 25 Mg Tablet, 25 MG PO DAILY, #30 TAB Prov:BREANA MORALES 05/09/18 Nifedipine* (Nifedipine ER*) 60 Mg Tablet.sa, 60 MG PO BID, #60 TAB.SA Prov:BREANA MORALES 05/09/18 Bumetanide* (Bumetanide*) 2 Mg Tablet, 2 MG PO BID, #180 TAB Prov:LOLIS CROWDER MD 05/09/18 Reported Medications Hydralazine Hcl* (Hydralazine Hcl*) 100 Mg Tablet, 100 MG PO TID, #90 TAB 05/07/18 Potassium Chloride* (K-Dur*) 10 Meq Tab.prt.sr, 10 MEQ PO BID, TAB 05/06/18 Hydralazine Hcl* (Hydralazine Hcl*) 50 Mg Tab, 50 MG PO Q8 PRN for ELEVATED BLOOD PRESSURE, #90 TAB 05/06/18 Ezetimibe* (Zetia*) 10 Mg Tablet, 10 MG PO HS, TAB 05/06/18 Carvedilol* (Carvedilol*) 3.125 Mg Tablet, 3.125 MG PO BID, #60 TAB 05/06/18 Apixaban* (Eliquis*) 5 Mg Tablet, 5 MG PO BID, TAB 05/06/18 Isosorbide Mononitrate* (Isosorbide Mononitrate*) 30 Mg Tab.er.24h, 30 MG PO DAILY, TAB 8/21/18 Spironolactone* (Aldactone*) 25 Mg Tablet, 25 MG PO DAILY, #30 TAB 04/16/18 Cholecalciferol* (Vitamin D3*) 1,000 Unit Tablet, 2000 UNIT PO DAILY, TAB 04/16/18 Insulin Lispro (Humalog Kwikpen U-100) 100 Unit/1 Ml Insuln.pen, 10 UNIT SQ WITH MEALS, EA 04/16/18 Insulin Glargine* (Lantus*) 100 Unit/Ml Soln, 30 UNIT SC QHS, #1 VIAL 02/28/18 Atorvastatin* (Atorvastatin*) 80 Mg Tablet, 80 MG PO QHS, #30 TAB 02/07/18 Medications Current Medications Lorazepam (Ativan) 0.5 mg Q8H PRN PO ANXIETY; Start 09/13/18 at 12:30 Ondansetron HCl (Zofran Inj) 4 mg Q6H PRN IV NAUSEA AND/OR VOMITING Last administered on 09/16/18at 21:16; Admin Dose 4 MG; Start 09/13/18 at 12:30 Nitroglycerin (Nitroglycerin (Sl Tab) 0.4 Mg) 1 tab Q5M PRN SL CHEST PAIN; Start 09/13/18 at 12:30 Acetaminophen (Tylenol Tab) 650 mg Q6H PRN PO PAIN LEVEL 1-3 OR FEVER Last administered on 09/19/18at 10:02; Admin Dose 650 MG; Start 09/13/18 at 12:30 Morphine Sulfate (morphine) 2 mg Q4H PRN IV SEVERE PAIN LEVEL 7-10 Last administered on 09/20/18at 21:59; Admin Dose 2 MG; Start 09/13/18 at 13:00 Zolpidem Tartrate (Ambien) 5 mg QHS PRN PO INSOMNIA Last administered on 09/19/18at 22:47; Admin Dose 5 MG; Start 09/13/18 at 12:30 Famotidine (Pepcid) 20 mg Q12 PO Last administered on 09/21/18at 08:00; Admin Dose 20 MG; Start 09/13/18 at 21:00 Apixaban (Eliquis) 2.5 mg BID PO Last administered on 09/21/18at 08:00; Admin Dose 2.5 MG; Start 09/13/18 at 21:00 Atorvastatin Calcium (Lipitor) 80 mg QHS PO Last administered on 09/20/18 21:42; Admin Dose 80 MG; Start 09/13/18 at 21:00 Cholecalciferol (Vitamin D) 2,000 unit DAILY PO Last administered on 09/21/18 08:01; Admin Dose 2,000 UNIT; Start 09/14/18 at 09:00 EZETIMIBE (Zetia) 10 mg HS PO Last administered on 09/20/18 21:43; Admin Dose 10 MG; Start 09/13/18 at 21:00 Insulin Glargine (Lantus) 30 units QHS SC Last administered on 09/20/18 22:24; Admin Dose 30 UNITS; Start 09/13/18 at 21:00 Isosorbide Mononitrate (Imdur) 30 mg DAILY PO Last administered on 09/21/18 08:00; Admin Dose 30 MG; Start 09/14/18 at 09:00 Spironolactone (Aldactone) 25 mg DAILY PO Last administered on 09/17/18 08:31; Admin Dose 25 MG; Start 09/14/18 at 09:00; Status Hold Insulin Aspart (Novolog Insulin Pen) 10 unit WITH MEALS SC Last administered on 09/21/18 08:13; Admin Dose 10 UNIT; Start 09/13/18 at 18:00 Miscellaneous Information 1 ea NOTE XX ; Start 09/13/18 at 13:00 Glucose (Glutose) 15 gm Q15M PRN PO DECREASED GLUCOSE; Start 09/13/18 at 13:00 Glucose (Glutose) 22.5 gm Q15M PRN PO DECREASED GLUCOSE; Start 09/13/18 at 13:00 Dextrose (D50w Syringe) 25 ml Q15M PRN IV DECREASED GLUCOSE; Start 09/13/18 at 13:00 Dextrose (D50w Syringe) 50 ml Q15M PRN IV DECREASED GLUCOSE; Start 09/13/18 at 13:00 Glucagon (Glucagen) 1 mg Q15M PRN IM DECREASED GLUCOSE; Start 09/13/18 at 13:00 Glucose (Glutose) 15 gm Q15M PRN BUCCAL DECREASED GLUCOSE; Start 09/13/18 at 13:00 Epoetin Randolph (Epogen (Non Esrd/Non Oncology)) 6,000 units TuThSa@17 SC Last administered on 09/19/18 18:26; Admin Dose 6,000 UNITS; Start 09/14/18 at 17:00 Sevelamer Carbonate (Renvela) 800 mg WITH MEALS PO Last administered on 09/21/18 11:51; Admin Dose 800 MG; Start 09/14/18 at 08:00 Hydralazine HCl (Apresoline) 100 mg BID PO Last administered on 09/21/18 08:01; Admin Dose 100 MG; Start 09/14/18 at 21:00 Doxazosin Mesylate (Cardura) 2 mg HS PO Last administered on 09/20/18 21:42; Admin Dose 2 MG; Start 09/15/18 at 21:00 Isosorbide Dinitrate (Isordil) 40 mg TID PO Last administered on 09/21/18 08:00; Admin Dose 40 MG; Start 09/15/18 at 13:00 Hydralazine HCl (Apresoline) 10 mg Q6H PRN IV ELEVATED SYSTOLIC BP Last administered on 09/19/18 00:18; Admin Dose 10 MG; Start 09/16/18 at 11:00 Cefepime HCl 50 ml @ 100 mls/hr Q24H IVPB Last administered on 09/20/18 16:00 ; Admin Dose 100 MLS/HR; Start 09/16/18 at 16:00 Nifedipine (Procardia Xl) 30 mg BID PO Last administered on 09/21/18 08:00; Admin Dose 30 MG; Start 09/16/18 at 16:30 Polyethylene Glycol (Miralax) 17 gm DAILY PO Last administered on 09/17/18 08:33; Admin Dose 17 GM; Start 09/16/18 at 19:00 Clindamycin HCl/ Dextrose 50 ml @ 50 mls/hr Q8 IVPB Last administered on 09/21/18 06:27; Admin Dose 50 MLS/HR; Start 09/18/18 at 15:30 Polyethylene Glycol (Miralax) 17 gm DAILY PRN PO constipation Last administered on 09/19/18 18:30; Admin Dose 17 GM; Start 09/19/18 at 16:30 Magnesium Hydroxide (Milk Of Mag) 30 ml BID PRN PO CONSTIPATION Last administered on 09/20/18 21:59; Admin Dose 30 ML; Start 09/19/18 at 23:00 Tramadol HCl (Ultram) 50 mg Q6H PRN PO MODERATE PAIN LEVEL 4-6; Start 09/20/18 at 16:30 Docusate Sodium (Colace) 100 mg BID PO Last administered on 09/21/18at 08:00; Admin Dose 100 MG; Start 09/20/18 at 21:35 Fluticasone Propionate (Flonase 0.05% Nasal) 1 spray BID NASAL Last a dministered on 09/21/18at 08:01; Admin Dose 1 SPRAY; Start 09/21/18 at 09:00 Allergies: Coded Allergies: ibuprofen (Unverified Allergy, Mild, 09/13/18) Past Surgical History Past Surgical Hx: other (left great toe amputation ) Social History Alcohol Use: none Smoking Status: Former smoker Drug Use: none Exam/Review of Systems Exam Vitals Vital Signs Date Temp Pulse Resp B/P (MAP) Pulse Ox O2 O2 Flow FiO2 Time Delivery Rate 09/21/18 98.3 85 19 159/74 92 11:48 (102) 09/21/18 Nasal 2.0 07:26 Cannula 09/20/18 35 01:34 Intake and Output 09/20/18 09/20/18 09/21/18 1414:59 22:59 06:59 IntakeIntake Total 950 ml 240 ml BalanceBalance 950 ml 240 ml Constitutional: alert Head: normocephalic, atraumatic Neck: supple, non-tender Respiratory: clear to auscultation Cardiovascular: regular rate and rhythm (no m/r/g) Gastrointestinal: soft Extremities: normal pulses Results Result Diagram: 09/21/18 0520 09/21/18 0520 Results 24hrs Laboratory Tests Test 09/20/18 17:26 09/20/18 21:57 09/21/18 05:20 09/21/18 07:59 Bedside Glucose 111 126 91 White Blood Count 6.6 Red Blood Count 2.93 L Hemoglobin 8.1 L Hematocrit 25.0 L Mean Corpuscular 85.3 Volume Mean Corpuscular 27.6 L Hemoglobin Mean Corpuscular 32.4 Hemoglobin Concent Red Cell 13.4 Distribution Width Platelet Count 164 Mean Platelet Volume 11.6 H Immature 0.600 H Granulocytes % Neutrophils % 64.2 Lymphocytes % 10.5 L Monocytes % 17.6 H Eosinophils % 6.8 Basophils % 0.3 Nucleated Red Blood 0.0 Cells % Immature 0.040 H Granulocytes # Neutrophils # 4.2 Lymphocytes # 0.7 L Monocytes # 1.2 H Eosinophils # 0.5 Basophils # 0.0 Nucleated Red Blood 0.0 Cells # Prothrombin Time 15.5 H Prothrombin Time 1.2 Ratio INR International 1.22 Normalized Ratio Activated 90.1 *H Partial Thromboplast Time Sodium Level 136 Potassium Level 4.2 Chloride Level 98 Carbon Dioxide Level 22 Anion Gap 16 H Blood Urea Nitrogen 105 H Creatinine 5.83 H Est Glomerular 11 L Filtrat Rate mL/min Glucose Level 91 # Calcium Level 8.8 Magnesium Level 2.7 H Total Bilirubin 0.6 Direct Bilirubin 0.00 Indirect Bilirubin 0.6 Aspartate Amino 33 Transf (AST/SGOT) Alanine 29 Aminotransferase (AL T/SGPT) Alkaline Phosphatase 85 Total Protein 6.6 Albumin 3.9 Globulin 2.70 Albumin/Globulin 1.44 Ratio Test 09/21/18 11:52 09/21/18 12:48 Bedside Glucose 56 L 68 L Medications Medication Current Medications Lorazepam (Ativan) 0.5 mg Q8H PRN PO ANXIETY; Start 09/13/18 at 12:30 Ondansetron HCl (Zofran Inj) 4 mg Q6H PRN IV NAUSEA AND/OR VOMITING Last administered on 09/16/18at 21:16; Admin Dose 4 MG; Start 09/13/18 at 12:30 Nitroglycerin (Nitroglycerin (Sl Tab) 0.4 Mg) 1 tab Q5M PRN SL CHEST PAIN; Start 09/13/18 at 12:30 Acetaminophen (Tylenol Tab) 650 mg Q6H PRN PO PAIN LEVEL 1-3 OR FEVER Last administered on 09/19/18at 10:02; Admin Dose 650 MG; Start 09/13/18 at 12:30 Morphine Sulfate (morphine) 2 mg Q4H PRN IV SEVERE PAIN LEVEL 7-10 Last administered on 09/20/18 21:59; Admin Dose 2 MG; Start 09/13/18 at 13:00 Zolpidem Tartrate (Ambien) 5 mg QHS PRN PO INSOMNIA Last administered on 09/19/18 22:47; Admin Dose 5 MG; Start 09/13/18 at 12:30 Famotidine (Pepcid) 20 mg Q12 PO Last administered on 1/26/19at 08:00; Admin Dose 20 MG; Start 09/13/18 at 21:00 Apixaban (Eliquis) 2.5 mg BID PO Last administered on 09/21/18 08:00; Admin Dose 2.5 MG; Start 09/13/18 at 21:00 Atorvastatin Calcium (Lipitor) 80 mg QHS PO Last administered on 09/20/18 21:42; Admin Dose 80 MG; Start 09/13/18 at 21:00 Cholecalciferol (Vitamin D) 2,000 unit DAILY PO Last administered on 09/21/18 08:01; Admin Dose 2,000 UNIT; Start 09/14/18 at 09:00 EZETIMIBE (Zetia) 10 mg HS PO Last administered on 09/20/18 21:43; Admin Dose 10 MG; Start 09/13/18 at 21:00 Insulin Glargine (Lantus) 30 units QHS SC Last administered on 09/20/18 22:24; Admin Dose 30 UNITS; Start 09/13/18 at 21:00 Isosorbide Mononitrate (Imdur) 30 mg DAILY PO Last administered on 09/21/18 08:00; Admin Dose 30 MG; Start 09/14/18 at 09:00 Spironolactone (Aldactone) 25 mg DAILY PO Last administered on 09/17/18 08:31; Admin Dose 25 MG; Start 09/14/18 at 09:00; Status Hold Insulin Aspart (Novolog Insulin Pen) 10 unit WITH MEALS SC Last administered on 09/21/18 08:13; Admin Dose 10 UNIT; Start 09/13/18 at 18:00 Miscellaneous Information 1 ea NOTE XX ; Start 09/13/18 at 13:00 Glucose (Glutose) 15 gm Q15M PRN PO DECREASED GLUCOSE; Start 09/13/18 at 13:00 Glucose (Glutose) 22.5 gm Q15M PRN PO DECREASED GLUCOSE; Start 09/13/18 at 13:00 Dextrose (D50w Syringe) 25 ml Q15M PRN IV DECREASED GLUCOSE; Start 09/13/18 at 13:00 Dextrose (D50w Syringe) 50 ml Q15M PRN IV DECREASED GLUCOSE; Start 09/13/18 at 13:00 Glucagon (Glucagen) 1 mg Q15M PRN IM DECREASED GLUCOSE; Start 09/13/18 at 13:00 Glucose (Glutose) 15 gm Q15M PRN BUCCAL DECREASED GLUCOSE; Start 09/13/18 at 13:00 Epoetin Randolph (Epogen (Non Esrd/Non Oncology)) 6,000 units TuThSa@17 SC Last administered on 09/19/18 18:26; Admin Dose 6,000 UNITS; Start 09/14/18 at 17:00 Sevelamer Carbonate (Renvela) 800 mg WITH MEALS PO Last administered on 09/21/18 11:51; Admin Dose 800 MG; Start 09/14/18 at 08:00 Hydralazine HCl (Apresoline) 100 mg BID PO Last administered on 09/21/18 08:01; Admin Dose 100 MG; Start 09/14/18 at 21:00 Doxazosin Mesylate (Cardura) 2 mg HS PO Last administered on 09/20/18 21:42; Admin Dose 2 MG; Start 09/15/18 at 21:00 Isosorbide Dinitrate (Isordil) 40 mg TID PO Last administered on 09/21/18 08:00; Admin Dose 40 MG; Start 09/15/18 at 13:00 Hydralazine HCl (Apresoline) 10 mg Q6H PRN IV ELEVATED SYSTOLIC BP Last administered on 09/19/18 00:18; Admin Dose 10 MG; Start 09/16/18 at 11:00 Cefepime HCl 50 ml @ 100 mls/hr Q24H IVPB Last administered on 09/20/18 16:00; Admin Dose 100 MLS/HR; Start 09/16/18 at 16:00 Nifedipine (Procardia Xl) 30 mg BID PO Last administered on 09/21/18 08:00; Admin Dose 30 MG; Start 09/16/18 at 16:30 Polyethylene Glycol (Miralax) 17 gm DAILY PO Last administered on 09/17/18 08:33; Admin Dose 17 GM; Start 09/16/18 at 19:00 Clindamycin HCl/ Dextrose 50 ml @ 50 mls/hr Q8 IVPB Last administered on 09/21/18 06:27; Admin Dose 50 MLS/HR; Start 09/18/18 at 15:30 Polyethylene Glycol (Miralax) 17 gm DAILY PRN PO constipation Last administered on 09/19/18 18:30; Admin Dose 17 GM; Start 09/19/18 at 16:30 Magnesium Hydroxide (Milk Of Mag) 30 ml BID PRN PO CONSTIPATION Last administered on 09/20/18at 21:59; Admin Dose 30 ML; Start 09/19/18 at 23:00 Tramadol HCl (Ultram) 50 mg Q6H PRN PO MODERATE PAIN LEVEL 4-6; Start 09/20/18 at 16:30 Docusate Sodium (Colace) 100 mg BID PO Last administered on 09/21/18at 08:00; Admin Dose 100 MG; Start 09/20/18 at 21:35 Fluticasone Propionate (Flonase 0.05% Nasal) 1 spray BID NASAL Last administered on 09/21/18at 08:01; Admin Dose 1 SPRAY; Start 09/21/18 at 09:00 NIDA GALLO M.D. Sep 21, 2018 12:57
[2018-09-21] MEDS ORDERED: morphine LIQ (10 MG/5 ML) CUP PO PRN (14:00)
--- NOTE | 2018-09-21 14:21 | PN ---
Date/Time of Note Date/Time of Note DATE: 09/21/18 TIME: 14:19 Assessment/Plan VTE Prophylaxis Risk score (from Ns)>0 risk: 4 SCD applied (from Ns): Yes Pharmacological prophylaxis: heparin Lines/Catheters IV Catheter Type (from Nrs): [place] [facility] Urinary Cath still in place: No Assessment/Plan Hospital Course 43 yo male with CKD IV, d CHF, DMII presents with [facility]IA DEL CARMEN and diastolic CHF, bacteremia CKD with MARIA DEL CARMEN, volume overload - Hold diuretics now given MARIA DEL CARMEN - per renal Hypertnesion; - controlled bactremia: - Vanco per ID x 2 more weeks DMII: - basal bolus insulin Result Diagram: 09/21/18 0520 09/21/18 0520 Results 24hrs Laboratory Tests Test 09/20/18 17:26 09/20/18 21:57 09/21/18 05:20 09/21/18 07:59 Bedside Glucose 111 126 91 White Blood Count 6.6 Red Blood Count 2.93 L Hemoglobin 8.1 L Hematocrit 25.0 L Mean Corpuscular 85.3 Volume Mean Corpuscular 27.6 L Hemoglobin Mean Corpuscular 32.4 Hemoglobin Concent Red Cell 13.4 Distribution Width Platelet Count 164 Mean Platelet Volume 11.6 H Immature 0.600 H Granulocytes % Neutrophils % 64.2 Lymphocytes % 10.5 L Monocytes % 17.6 H Eosinophils % 6.8 Basophils % 0.3 Nucleated Red Blood 0.0 Cells % Immature 0.040 H Granulocytes # Neutrophils # 4.2 Lymphocytes # 0.7 L Monocytes # 1.2 H Eosinophils # 0.5 Basophils # 0.0 Nucleated Red Blood 0.0 Cells # Prothrombin Time 15.5 H Prothrombin Time 1.2 Ratio INR International 1.22 Normalized Ratio Activated 90.1 *H Partial Thromboplast Time Sodium Level 136 Potassium Level 4.2 Chloride Level 98 Carbon Dioxide Level 22 Anion Gap 16 H Blood Urea Nitrogen 105 H Creatinine 5.83 H Est Glomerular 11 L Filtrat Rate mL/min Glucose Level 91 # Calcium Level 8.8 Magnesium Level 2.7 H Total Bilirubin 0.6 Direct Bilirubin 0.00 Indirect Bilirubin 0.6 Aspartate Amino 33 Transf (AST/SGOT) Alanine 29 Aminotransferase (AL T/SGPT) Alkaline Phosphatase 85 Total Protein 6.6 Albumin 3.9 Globulin 2.70 Albumin/Globulin 1.44 Ratio Test 09/21/18 11:52 09/21/18 12:48 09/21/18 14:08 Bedside Glucose 56 L 68 L 104 Subjective 24 Hr Interval Summary Free Text/Dictation Very hesitant to start HD. Prefers to wait as long as possible Exam/Review of Systems Exam Vitals Vital Signs Date Temp Pulse Resp B/P (MAP) Pulse Ox O2 O2 Flow FiO2 Time Delivery Rate 09/21/18 85 12:01 09/21/18 98.3 19 159/74 92 11:48 (102) 09/21/18 Nasal 2.0 07:26 Cannula 09/20/18 35 01:34 Intake and Output 09/20/18 09/20/18 09/21/18 1515:00 23:00 07:00 IntakeIntake Total 950 ml 240 ml BalanceBalance 950 ml 240 ml Exam Well appearing Trace pedal edema Mild JVD Breathing comfortably, clear lugns Results Results 24hrs Laboratory Tests Test 09/20/18 17:26 09/20/18 21:57 09/21/18 05:20 09/21/18 07:59 Bedside Glucose 111 126 91 White Blood Count 6.6 Red Blood Count 2.93 L Hemoglobin 8.1 L Hematocrit 25.0 L Mean Corpuscular 85.3 Volume Mean Corpuscular 27.6 L Hemoglobin Mean Corpuscular 32.4 Hemoglobin Concent Red Cell 13.4 Distribution Width Platelet Count 164 Mean Platelet Volume 11.6 H Immature 0.600 H Granulocytes % Neutrophils % 64.2 Lymphocytes % 10.5 L Monocytes % 17.6 H Eosinophils % 6.8 Basophils % 0.3 Nucleated Red Blood 0.0 Cells % Immature 0.040 H Granulocytes # Neutrophils # 4.2 Lymphocytes # 0.7 L Monocytes # 1.2 H Eosinophils # 0.5 Basophils # 0.0 Nucleated Red Blood 0.0 Cells # Prothrombin Time 15.5 H Prothrombin Time 1.2 Ratio INR International 1.22 Normalized Ratio Activated 90.1 *H Partial Thromboplast Time Sodium Level 136 Potassium Level 4.2 Chloride Level 98 Carbon Dioxide Level 22 Anion Gap 16 H Blood Urea Nitrogen 105 H Creatinine 5.83 H Est Glomerular 11 L Filtrat Rate mL/min Glucose Level 91 # Calcium Level 8.8 Magnesium Level 2.7 H Total Bilirubin 0.6 Direct Bilirubin 0.00 Indirect Bilirubin 0.6 Aspartate Amino 33 Transf (AST/SGOT) Alanine 29 Aminotransferase (AL T/SGPT) Alkaline Phosphatase 85 Total Protein 6.6 Albumin 3.9 Globulin 2.70 Albumin/Globulin 1.44 Ratio Test 09/21/18 11:52 09/21/18 12:48 09/21/18 14:08 Bedside Glucose 56 L 68 L 104 Medications Medication Current Medications Lorazepam (Ativan) 0.5 mg Q8H PRN PO ANXIETY; Start 09/13/18 at 12:30 Ondansetron HCl (Zofran Inj) 4 mg Q6H PRN IV NAUSEA AND/OR VOMITING Last administered on 09/16/18 21:16; Admin Dose 4 MG; Start 09/13/18 at 12:30 Nitroglycerin (Nitroglycerin (Sl Tab) 0.4 Mg) 1 tab Q5M PRN SL CHEST PAIN; Start 09/13/18 at 12:30 Acetaminophen (Tylenol Tab) 650 mg Q6H PRN PO PAIN LEVEL 1-3 OR FEVER Last administered on 09/19/18 10:02; Admin Dose 650 MG; Start 09/13/18 at 12:30 Zolpidem Tartrate (Ambien) 5 mg QHS PRN PO INSOMNIA Last administered on 09/19/18 22:47; Admin Dose 5 MG; Start 09/13/18 at 12:30 Famotidine (Pepcid) 20 mg Q12 PO Last administered on 09/21/18 08:00; Admin Dose 20 MG; Start 09/13/18 at 21:00 Apixaban (Eliquis) 2.5 mg BID PO Last administered on 09/21/18 08:00; Admin Dose 2.5 MG; Start 09/13/18 at 21:00 Atorvastatin Calcium (Lipitor) 80 mg QHS PO Last administered on 09/20/18 21:42; Admin Dose 80 MG; Start 09/13/18 at 21:00 Cholecalciferol (Vitamin D) 2,000 unit DAILY PO Last administered on 09/21/18 08:01; Admin Dose 2,000 UNIT; Start 09/14/18 at 09:00 EZETIMIBE (Zetia) 10 mg HS PO Last administered on 09/20/18 21:43; Admin Dose 10 MG; Start 09/13/18 at 21:00 Insulin Glargine (Lantus) 30 units QHS SC Last administered on 09/20/18at 22:24; Admin Dose 30 UNITS; Start 09/13/18 at 21:00 Isosorbide Mononitrate (Imdur) 30 mg DAILY PO Last administered on 09/21/18at 08:00; Admin Dose 30 MG; Start 09/14/18 at 09:00 Spironolactone (Aldactone) 25 mg DAILY PO Last administered on 09/17/18at 08:31; Admin Dose 25 MG; Start 09/14/18 at 09:00; Status Hold Insulin Aspart (Novolog Insulin Pen) 10 unit WITH MEALS SC Last administered on 09/21/18at 08:13; Admin Dose 10 UNIT; Start 09/13/18 at 18:00 Miscellaneous Information 1 ea NOTE XX ; Start 09/13/18 at 13:00 Glucose (Glutose) 15 gm Q15M PRN PO DECREASED GLUCOSE; Start 09/13/18 at 13:00 Glucose (Glutose) 22.5 gm Q15M PRN PO DECREASED GLUCOSE; Start 09/13/18 at 13:00 Dextrose (D50w Syringe) 25 ml Q15M PRN IV DECREASED GLUCOSE; Start 09/13/18 at 13:00 Dextrose (D50w Syringe) 50 ml Q15M PRN IV DECREASED GLUCOSE; Start 09/13/18 at 13:00 Glucagon (Glucagen) 1 mg Q15M PRN IM DECREASED GLUCOSE; Start 09/13/18 at 13:00 Glucose (Glutose) 15 gm Q15M PRN BUCCAL DECREASED GLUCOSE; Start 09/13/18 at 13:00 Epoetin Randolph (Epogen (Non Esrd/Non Oncology)) 6,000 units TuThSa@17 SC Last administered on 09/19/18at 18:26; Admin Dose 6,000 UNITS; Start 09/14/18 at 17:00 Sevelamer Carbonate (Renvela) 800 mg WITH MEALS PO Last administered on 09/21/18at 11:51; Admin Dose 800 MG; Start 09/14/18 at 08:00 Doxazosin Mesylate (Cardura) 2 mg HS PO Last administered on 09/20/18at 21:42; Admin Dose 2 MG; Start 09/15/18 at 21:00 Hydralazine HCl (Apresoline) 10 mg Q6H PRN IV ELEVATED SYSTOLIC BP Last administered on 09/19/18 00:18; Admin Dose 10 MG; Start 09/16/18 at 11:00 Cefepime HCl 50 ml @ 100 mls/hr Q24H IVPB Last administered on 09/20/18 16:00; Admin Dose 100 MLS/HR; Start 09/16/18 at 16:00 Nifedipine (Procardia Xl) 30 mg BID PO Last administered on 09/21/18 08:00; Admin Dose 30 MG; Start 09/16/18 at 16:30 Polyethylene Glycol (Miralax) 17 gm DAILY PO Last administered on 09/17/18 08:33; Admin Dose 17 GM; Start 09/16/18 at 19:00 Clindamycin HCl/ Dextrose 50 ml @ 50 mls/hr Q8 IVPB Last administered on 09/21/18 14:08; Admin Dose 50 MLS/HR; Start 09/18/18 at 15:30 Polyethylene Glycol (Miralax) 17 gm DAILY PRN PO constipation Last administered on 09/19/18 18:30; Admin Dose 17 GM; Start 09/19/18 at 16:30 Magnesium Hydroxide (Milk Of Mag) 30 ml BID PRN PO CONSTIPATION Last administered on 09/20/18 21:59; Admin Dose 30 ML; Start 09/19/18 at 23:00 Tramadol HCl (Ultram) 50 mg Q6H PRN PO MODERATE PAIN LEVEL 4-6; Start 09/20/18 at 16:30 Docusate Sodium (Colace) 100 mg BID PO Last administered on 09/21/18 08:00; Admin Dose 100 MG; Start 09/20/18 at 21:35 Fluticasone Propionate (Flonase 0.05% Nasal) 1 spray BID NASAL Last administered on 09/21/18 08:01; Admin Dose 1 SPRAY; Start 09/21/18 at 09:00 Hydralazine HCl (Apresoline) 100 mg TID PO Last administered on 09/21/18 14:09; Admin Dose 100 MG; Start 09/21/18 at 13:00 Morphine Sulfate (morphine) 6 mg Q4H PRN PO SEVERE PAIN LEVEL 7-10; Start 09/21/18 at 14:00 DAMIEN URBANO MD Sep 21, 2018 14:21
--- NOTE | 2018-09-21 14:31 | CONS ---
Consultation Date/Type/Reason Admit Date/Time Sep 13, 2018 at 08:45 Initial Consult Date SUBJECTIVE: Pt is awake,alert, afebrile. Family at bedside. VS: stable. T: 98.3 LABS: reviewed. WBC-6.6 Microbiology: Blood culture on admission positive for MRSA. Repeat blood cultures negative Chest x-ray on admission revealed right base pneumonia with small pleural effusion. JAVIER revealed no vegetations. WBC labeled nuclear scan negative. Bilateral lower extremities ultrasound was negative PELVIS CT: IMPRESSION: Normal CT of pelvis. No evidence of occult fracture. No soft tissue abnormality visualized. Antimicrobials: Cefepime, clindamycin Physical examination: GEN: This is a morbidly obese well-developed middle-aged man who is alert in no distress. HENT: Head atraumatic normocephalic, sclera nonicteric, neck is obese PULM: chest rise symmetrical, breath sounds diminished bases Heart: S1-S2 Abdomen soft bowel sounds present Extremities without cyanosis Assessment: 1. Sepsis on admission 2. Persistent MRSA bacteremia 3. Pneumonia, possible pleural effusion 4. Acute renal failure on chronic kidney disease 5. Morbid obesity 6. Diabetes Plan: Clinically unchanged. WBC labeled nuclear scan revealed no evidence of infection. Will continue current antibiotics for at least [address] noted ( negative). Requesting Provider: LEXII REED Date/Time of Note DATE: 09/21/18 TIME: 14:27 Exam/Review of Systems Exam Vitals Vital Signs Date Temp Pulse Resp B/P (MAP) Pulse Ox O2 O2 Flow FiO2 Time Delivery Rate 09/21/18 85 12:01 09/21/18 98.3 19 159/74 92 11:48 (102) 09/21/18 Nasal 2.0 07:26 Cannula 09/20/18 35 01:34 Intake and Output 09/20/18 09/20/18 09/21/18 1515:00 23:00 07:00 IntakeIntake Total 950 ml 240 ml BalanceBalance 950 ml 240 ml Results Result Diagram: 09/21/18 0520 09/21/18 0520 Results 24hrs Laboratory Tests Test 09/20/18 17:26 09/20/18 21:57 09/21/18 05:20 09/21/18 07:59 Bedside Glucose 111 126 91 White Blood Count 6.6 Red Blood Count 2.93 L Hemoglobin 8.1 L Hematocrit 25.0 L Mean Corpuscular 85.3 Volume Mean Corpuscular 27.6 L Hemoglobin Mean Corpuscular 32.4 Hemoglobin Concent Red Cell 13.4 Distribution Width Platelet Count 164 Mean Platelet Volume 11.6 H Immature 0.600 H Granulocytes % Neutrophils % 64.2 Lymphocytes % 10.5 L Monocytes % 17.6 H Eosinophils % 6.8 Basophils % 0.3 Nucleated Red Blood 0.0 Cells % Immature 0.040 H Granulocytes # Neutrophils # 4.2 Lymphocytes # 0.7 L Monocytes # 1.2 H Eosinophils # 0.5 Basophils # 0.0 Nucleated Red Blood 0.0 Cells # Prothrombin Time 15.5 H Prothrombin Time 1.2 Ratio INR International 1.22 Normalized Ratio Activated 90.1 *H Partial Thromboplast Time Sodium Level 136 Potassium Level 4.2 Chloride Level 98 Carbon Dioxide Level 22 Anion Gap 16 H Blood Urea Nitrogen 105 H Creatinine 5.83 H Est Glomerular 11 L Filtrat Rate mL/min Glucose Level 91 # Calcium Level 8.8 Magnesium Level 2.7 H Total Bilirubin 0.6 Direct Bilirubin 0.00 Indirect Bilirubin 0.6 Aspartate Amino 33 Transf (AST/SGOT) Alanine 29 Aminotransferase (AL T/SGPT) Alkaline Phosphatase 85 Total Protein 6.6 Albumin 3.9 Globulin 2.70 Albumin/Globulin 1.44 Ratio Test 09/21/18 11:52 09/21/18 12:48 09/21/18 14:08 Bedside Glucose 56 L 68 L 104 Medications Medication Current Medications Lorazepam (Ativan) 0.5 mg Q8H PRN PO ANXIETY; Start 09/13/18 at 12:30 Ondansetron HCl (Zofran Inj) 4 mg Q6H PRN IV NAUSEA AND/OR VOMITING Last administered on 09/16/18at 21:16; Admin Dose 4 MG; Start 09/13/18 at 12:30 Nitroglycerin (Nitroglycerin (Sl Tab) 0.4 Mg) 1 tab Q5M PRN SL CHEST PAIN; Start 09/13/18 at 12:30 Acetaminophen (Tylenol Tab) 650 mg Q6H PRN PO PAIN LEVEL 1-3 OR FEVER Last administered on 09/19/18at 10:02; Admin Dose 650 MG; Start 09/13/18 at 12:30 Zolpidem Tartrate (Ambien) 5 mg QHS PRN PO INSOMNIA Last administered on 09/19/18 22:47; Admin Dose 5 MG; Start 09/13/18 at 12:30 Famotidine (Pepcid) 20 mg Q12 PO Last administered on 09/21/18 08:00; Admin Dose 20 MG; Start 09/13/18 at 21:00 Apixaban (Eliquis) 2.5 mg BID PO Last administered on 09/21/18 08:00; Admin Dose 2.5 MG; Start 09/13/18 at 21:00 Atorvastatin Calcium (Lipitor) 80 mg QHS PO Last administered on 09/20/18 21:42; Admin Dose 80 MG; Start 09/13/18 at 21:00 Cholecalciferol (Vitamin D) 2,000 unit DAILY PO Last administered on 09/21/18 08:01; Admin Dose 2,000 UNIT; Start 09/14/18 at 09:00 EZETIMIBE (Zetia) 10 mg HS PO Last administered on 09/20/18 21:43; Admin Dose 10 MG; Start 09/13/18 at 21:00 Insulin Glargine (Lantus) 30 units QHS SC Last administered on 09/20/18 22:24; Admin Dose 30 UNITS; Start 09/13/18 at 21:00 Isosorbide Mononitrate (Imdur) 30 mg DAILY PO Last administered on 09/21/18 08:00; Admin Dose 30 MG; Start 09/14/18 at 09:00 Spironolactone (Aldactone) 25 mg DAILY PO Last administered on 09/17/18 08:31; Admin Dose 25 MG; Start 09/14/18 at 09:00; Status Hold Insulin Aspart (Novolog Insulin Pen) 10 unit WITH MEALS SC Last administered on 09/21/18 08:13; Admin Dose 10 UNIT; Start 09/13/18 at 18:00 Miscellaneous Information 1 ea NOTE XX ; Start 09/13/18 at 13:00 Glucose (Glutose) 15 gm Q15M PRN PO DECREASED GLUCOSE; Start 09/13/18 at 13:00 Glucose (Glutose) 22.5 gm Q15M PRN PO DECREASED GLUCOSE; Start 09/13/18 at 13:00 Dextrose (D50w Syringe) 25 ml Q15M PRN IV DECREASED GLUCOSE; Start 09/13/18 at 13:00 Dextrose (D50w Syringe) 50 ml Q15M PRN IV DECREASED GLUCOSE; Start 09/13/18 at 13:00 Glucagon (Glucagen) 1 mg Q15M PRN IM DECREASED GLUCOSE; Start 09/13/18 at 13:00 Glucose (Glutose) 15 gm Q15M PRN BUCCAL DECREASED GLUCOSE; Start 09/13/18 at 13:00 Epoetin Randolph (Epogen (Non Esrd/Non Oncology)) 6,000 units TuThSa@17 SC Last administered on 09/19/18 18:26; Admin Dose 6,000 UNITS; Start 09/14/18 at 17:00 Sevelamer Carbonate (Renvela) 800 mg WITH MEALS PO Last administered on 09/21/18 11:51; Admin Dose 800 MG; Start 09/14/18 at 08:00 Doxazosin Mesylate (Cardura) 2 mg HS PO Last administered on 09/20/18 21:42; Admin Dose 2 MG; Start 09/15/18 at 21:00 Hydralazine HCl (Apresoline) 10 mg Q6H PRN IV ELEVATED SYSTOLIC BP Last administered on 09/19/18 00:18; Admin Dose 10 MG; Start 09/16/18 at 11:00 Cefepime HCl 50 ml @ 100 mls/hr Q24H IVPB Last administered on 09/20/18 16:00; Admin Dose 100 MLS/HR; Start 09/16/18 at 16:00 Nifedipine (Procardia Xl) 30 mg BID PO Last administered on 09/21/18 08:00; Admin Dose 30 MG; Start 09/16/18 at 16:30 Polyethylene Glycol (Miralax) 17 gm DAILY PO Last administered on 09/17/18 08:33; Admin Dose 17 GM; Start 09/16/18 at 19:00 Clindamycin HCl/ Dextrose 50 ml @ 50 mls/hr Q8 IVPB Last administered on 09/21/18 14:08; Admin Dose 50 MLS/HR; Start 09/18/18 at 15:30 Polyethylene Glycol (Miralax) 17 gm DAILY PRN PO constipation Last administered on 09/19/18 18:30; Admin Dose 17 GM; Start 09/19/18 at 16:30 Magnesium Hydroxide (Milk Of Mag) 30 ml BID PRN PO CONSTIPATION Last administered on 09/20/18at 21:59; Admin Dose 30 ML; Start 09/19/18 at 23:00 Tramadol HCl (Ultram) 50 mg Q6H PRN PO MODERATE PAIN LEVEL 4-6; Start 09/20/18 at 16:30 Docusate Sodium (Colace) 100 mg BID PO Last administered on 09/21/18at 08:00; Admin Dose 100 MG; Start 09/20/18 at 21:35 Fluticasone Propionate (Flonase 0.05% Nasal) 1 spray BID NASAL Last administered on 09/21/18at 08:01; Admin Dose 1 SPRAY; Start 09/21/18 at 09:00 Hydralazine HCl (Apresoline) 100 mg TID PO Last administered on 09/21/18at 14:09; Admin Dose 100 MG; Start 09/21/18 at 13:00 Morphine Sulfate (morphine) 6 mg Q4H PRN PO SEVERE PAIN LEVEL 7-10; Start 09/21/18 at 14:00 JOSE MANUEL FINNEGAN Sep 21, 2018 14:31
--- NOTE | 2018-09-21 15:09 | CONS ---
Assessment/Plan Assessment/Plan Assessment/Plan (Daily) 1.Acute kidney injury on CKD III due to hemodynamics from CHF 2. acute CHF exacerbation, acute on chronic, diastolic, with fluid overload and pulmonary congestion with anasarca 3. 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 H/o HTN 5. LE edema/anasarca 6. HL 7. Anemia of chronic kidney disease Plan: BUN/Cr contines to rise, 105/5.83 -C/o back pain and tail bone pain , MRI LS SPine showed diffuse OA and bone disease - Losartan, Spironolactone and bumex has been on hold - s.p 2 U PRBC yesterday on epogen 6000 units SQ TTS for anemia Continue Renvela 800mg TID for hyperphosphatemia - monitor electrolytes and replace aggressively Renal US on previous visit- unremarkable, Kidney size R 12.0, left 11.2 cm, normal echogenicity on last visit Nifedipine 60mg BID , Coreg 6.25mg PO BID, Hydralazine 100mg PO TID (Dr Pascual Discussed with pt about HD options, he is not agreeing with HD, he wants to wait and he wants to talk to his primary care physician, will try to reach out to his PMD ) wiill follow up Patient seen in collaboration with Dr Jennifer Pascual. dw staff Consultation Date/Type/Reason Admit Date/Time Sep 13, 2018 at 08:45 Initial Consult Date 09/18/18 Type of Consult NEPHROLOGY Requesting Provider: LEXII REED Date/Time of Note DATE: 09/21/18 TIME: 15:07 24 HR Interval Summary Free Text/Dictation -NAD -feels better on supplement oxyen - no new events reported overnight - dw staff Constitutional: requiring O2 Detailed Summary Eyes: no complaints ENT: no complaints Respiratory: no complaints Cardiovascular: no complaints Gastrointestinal: no complaints Genitourinary: no complaints Musculoskeletal: no complaints Skin: no complaints Exam/Review of Systems Exam Vitals Vital Signs Date Temp Pulse Resp B/P (MAP) Pulse Ox O2 O2 Flow FiO2 Time Delivery Rate 09/21/18 85 12:01 09/21/18 98.3 19 159/74 92 11:48 (102) 09/21/18 Nasal 2.0 07:26 Cannula 09/20/18 35 01:34 Intake and Output 09/20/18 09/20/18 09/21/18 1515:00 23:00 07:00 IntakeIntake Total 950 ml 240 ml BalanceBalance 950 ml 240 ml Constitutional: alert, well developed, obese Psych: nl mood/affect Head: atraumatic Eyes: nl lids, nl sclera ENMT: nl external ears & nose Neck: non-tender Respiratory: diminished breath sounds Cardiovascular: nl pulses, other (S1S2) Gastrointestinal: soft, non-tender Musculoskeletal: nl extremities to inspection Extremities: normal pulses Neurological: nl speech, other (Alert/reponsive) Lymph: nontender Results Result Diagram: 09/21/18 0520 09/21/18 0520 Results 24hrs Laboratory Tests Test 09/20/18 17:26 09/20/18 21:57 09/21/18 05:20 09/21/18 07:59 Bedside Glucose 111 126 91 White Blood Count 6.6 Red Blood Count 2.93 L Hemoglobin 8.1 L Hematocrit 25.0 L Mean Corpuscular 85.3 Volume Mean Corpuscular 27.6 L Hemoglobin Mean Corpuscular 32.4 Hemoglobin Concent Red Cell 13.4 Distribution Width Platelet Count 164 Mean Platelet Volume 11.6 H Immature 0.600 H Granulocytes % Neutrophils % 64.2 Lymphocytes % 10.5 L Monocytes % 17.6 H Eosinophils % 6.8 Basophils % 0.3 Nucleated Red Blood 0.0 Cells % Immature 0.040 H Granulocytes # Neutrophils # 4.2 Lymphocytes # 0.7 L Monocytes # 1.2 H Eosinophils # 0.5 Basophils # 0.0 Nucleated Red Blood 0.0 Cells # Prothrombin Time 15.5 H Prothrombin Time 1.2 Ratio INR International 1.22 Normalized Ratio Activated 90.1 *H Partial Thromboplast Time Sodium Level 136 Potassium Level 4.2 Chloride Level 98 Carbon Dioxide Level 22 Anion Gap 16 H Blood Urea Nitrogen 105 H Creatinine 5.83 H Est Glomerular 11 L Filtrat Rate mL/min Glucose Level 91 # Calcium Level 8.8 Magnesium Level 2.7 H Total Bilirubin 0.6 Direct Bilirubin 0.00 Indirect Bilirubin 0.6 Aspartate Amino 33 Transf (AST/SGOT) Alanine 29 Aminotransferase (AL T/SGPT) Alkaline Phosphatase 85 Total Protein 6.6 Albumin 3.9 Globulin 2.70 Albumin/Globulin 1.44 Ratio Test 09/21/18 11:52 09/21/18 12:48 09/21/18 14:08 Bedside Glucose 56 L 68 L 104 Medications Medication Current Medications Lorazepam (Ativan) 0.5 mg Q8H PRN PO ANXIETY; Start 09/13/18 at 12:30 Ondansetron HCl (Zofran Inj) 4 mg Q6H PRN IV NAUSEA AND/OR VOMITING Last administered on 09/16/18 21:16; Admin Dose 4 MG; Start 09/13/18 at 12:30 Nitroglycerin (Nitroglycerin (Sl Tab) 0.4 Mg) 1 tab Q5M PRN SL CHEST PAIN; Start 09/13/18 at 12:30 Acetaminophen (Tylenol Tab) 650 mg Q6H PRN PO PAIN LEVEL 1-3 OR FEVER Last administered on 09/19/18 10:02; Admin Dose 650 MG; Start 09/13/18 at 12:30 Zolpidem Tartrate (Ambien) 5 mg QHS PRN PO INSOMNIA Last administered on 09/19/18 22:47; Admin Dose 5 MG; Start 09/13/18 at 12:30 Famotidine (Pepcid) 20 mg Q12 PO Last administered on 09/21/18 08:00; Admin Dose 20 MG; Start 09/13/18 at 21:00 Apixaban (Eliquis) 2.5 mg BID PO Last administered on 09/21/18 08:00; Admin Dose 2.5 MG; Start 09/13/18 at 21:00 Atorvastatin Calcium (Lipitor) 80 mg QHS PO Last administered on 09/20/18 21:42; Admin Dose 80 MG; Start 09/13/18 at 21:00 Cholecalciferol (Vitamin D) 2,000 unit DAILY PO Last administered on 09/21/18 08:01; Admin Dose 2,000 UNIT; Start 09/14/18 at 09:00 EZETIMIBE (Zetia) 10 mg HS PO Last administered on 09/20/18 21:43; Admin Dose 10 MG; Start 09/13/18 at 21:00 Insulin Glargine (Lantus) 30 units QHS SC Last administered on 09/20/18 22:24; Admin Dose 30 UNITS; Start 09/13/18 at 21:00 Isosorbide Mononitrate (Imdur) 30 mg DAILY PO Last administered on 09/21/18 08:00; Admin Dose 30 MG; Start 09/14/18 at 09:00 Spironolactone (Aldactone) 25 mg DAILY PO Last administered on 09/17/18at 08:31; Admin Dose 25 MG; Start 09/14/18 at 09:00; Status Hold Insulin Aspart (Novolog Insulin Pen) 10 unit WITH MEALS SC Last administered on 09/21/18 08:13; Admin Dose 10 UNIT; Start 09/13/18 at 18:00 Miscellaneous Information 1 ea NOTE XX ; Start 09/13/18 at 13:00 Glucose (Glutose) 15 gm Q15M PRN PO DECREASED GLUCOSE; Start 09/13/18 at 13:00 Glucose (Glutose) 22.5 gm Q15M PRN PO DECREASED GLUCOSE; Start 09/13/18 at 13:00 Dextrose (D50w Syringe) 25 ml Q15M PRN IV DECREASED GLUCOSE; Start 09/13/18 at 13:00 Dextrose (D50w Syringe) 50 ml Q15M PRN IV DECREASED GLUCOSE; Start 09/13/18 at 13:00 Glucagon (Glucagen) 1 mg Q15M PRN IM DECREASED GLUCOSE; Start 09/13/18 at 13:00 Glucose (Glutose) 15 gm Q15M PRN BUCCAL DECREASED GLUCOSE; Start 09/13/18 at 13:00 Epoetin Randolph (Epogen (Non Esrd/Non Oncology)) 6,000 units TuThSa@17 SC Last administered on 09/19/18at 18:26; Admin Dose 6,000 UNITS; Start 09/14/18 at 17:00 Sevelamer Carbonate (Renvela) 800 mg WITH MEALS PO Last administered on 09/21/18at 11:51; Admin Dose 800 MG; Start 09/14/18 at 08:00 Doxazosin Mesylate (Cardura) 2 mg HS PO Last administered on 09/20/18at 21:42; Admin Dose 2 MG; Start 09/15/18 at 21:00 Hydralazine HCl (Apresoline) 10 mg Q6H PRN IV ELEVATED SYSTOLIC BP Last administered on 09/19/18at 00:18; Admin Dose 10 MG; Start 09/16/18 at 11:00 Cefepime HCl 50 ml @ 100 mls/hr Q24H IVPB Last administered on 09/20/18 16:00; Admin Dose 100 MLS/HR; Start 09/16/18 at 16:00 Nifedipine (Procardia Xl) 30 mg BID PO Last administered on 09/21/18 08:00; Admin Dose 30 MG; Start 09/16/18 at 16:30 Polyethylene Glycol (Miralax) 17 gm DAILY PO Last administered on 09/17/18 08:33; Admin Dose 17 GM; Start 09/16/18 at 19:00 Clindamycin HCl/ Dextrose 50 ml @ 50 mls/hr Q8 IVPB Last administered on 09/21/18 14:08; Admin Dose 50 MLS/HR; Start 09/18/18 at 15:30 Polyethylene Glycol (Miralax) 17 gm DAILY PRN PO constipation Last administered on 09/19/18 18:30; Admin Dose 17 GM; Start 09/19/18 at 16:30 Magnesium Hydroxide (Milk Of Mag) 30 ml BID PRN PO CONSTIPATION Last administered on 09/20/18 21:59; Admin Dose 30 ML; Start 09/19/18 at 23:00 Tramadol HCl (Ultram) 50 mg Q6H PRN PO MODERATE PAIN LEVEL 4-6; Start 09/20/18 at 16:30 Docusate Sodium (Colace) 100 mg BID PO Last administered on 09/21/18 08:00; Admin Dose 100 MG; Start 09/20/18 at 21:35 Fluticasone Propionate (Flonase 0.05% Nasal) 1 spray BID NASAL Last administered on 09/21/18 08:01; Admin Dose 1 SPRAY; Start 09/21/18 at 09:00 Hydralazine HCl (Apresoline) 100 mg TID PO Last administered on 09/21/18 14:09; Admin Dose 100 MG; Start 09/21/18 at 13:00 Morphine Sulfate (morphine) 6 mg Q4H PRN PO SEVERE PAIN LEVEL 7-10; Start 09/21/18 at 14:00 GRETA MARTINES Sep 21, 2018 15:09
[2018-09-21] MEDS: CEFEPIME 1GM/50 ML (PMX) 50 ML IVPB SCH (15:19)
[2018-09-21] MEDS: EPOETIN 3000 UNITS/ML (NON ESRD/NON ONCOLOGY) SC SCH (17:07)
--- NOTE | 2018-09-21 17:21 | NUR ---
RN notes patient awake in bed, aox4 able to make needs known, all due medications given, all needs attended. kept pt clean,dry and comfortable. per Krzysztof [employer] she will talk to the pt regarding the POC. stable at this time. will endorse
--- NOTE | 2018-09-21 20:02 | PN ---
Date/Time of Note Date/Time of Note DATE: 09/21/18 TIME: 19:52 Assessment/Plan VTE Prophylaxis Risk score (from Ns)>0 risk: 4 SCD applied (from Ns): Yes Pharmacological prophylaxis: heparin Lines/Catheters IV [facility]from [facility] [place] [facility] Urinary Cath still in place: No Assessment/Plan Assessment/Plan Assessment: * Chronic likely multifactorial anemia * Rule out GI bleeding overt or occult * Decompensated diastolic congestive heart failure * History of paroxysmal atrial fibrillation * Diabetes mellitus poorly controlled * Chronic kidney disease stage IV * Morbid obesity Plan: There is no evidence of occult or overt GI bleeding Monitor labs transfuse as needed Patient seen in collaboration with Dr. Beaulieu Subjective: Course reviewed with nursing staff Patient interviewed and examined All labs, imaging and other results reviewed Patient is doing well. Patient denies abdominal pain, diarrhea, hematochezia or melena. No BM's today since yesterday. No evidence of GI bleeding. Hemoglobin is low but stable. With negative occult blood and no signs of GI bleeding we will sign off and will be available to reconsult upon request. PHYSICAL EXAMINATION: GENERAL: Well developed, well nourished, obese, alert & oriented x 3, in mild respiratory distress SKIN: No lesions EYES: Pupils equal reactive to light, no discharge. EARS/NOSE AND THROAT: Ears normal, nose normal. NECK: Supple, no masses CHEST: Inspection within normal limits. CARDIOVASCULAR: Heart: Regular rate and rhythm, RESPIRATORY: Lungs coarse crackles bilaterally. GASTROINTESTINAL AND LIVER: Abdomen: Soft, non tenderness, non-distended, no hernias, no masses, no organomegaly, no ascites, no guarding, no rebound tenderness, normoactive bowel sounds. Rectal: Deferred. EXTREMITIES: 2+ pitting edema. No cyanosis or clubbing Result Diagram: 09/21/1851909/21/1820 Results 24hrs Laboratory Tests Test 09/20/18 21:57 09/21/18 05:20 09/21/18 07:59 09/21/18 11:52 Bedside Glucose 126 91 56 L White Blood Count 6.6 Red Blood Count 2.93 L Hemoglobin 8.1 L Hematocrit 25.0 L Mean Corpuscular 85.3 Volume Mean Corpuscular 27.6 L Hemoglobin Mean Corpuscular 32.4 Hemoglobin Concent Red Cell 13.4 Distribution Width Platelet Count 164 Mean Platelet Volume 11.6 H Immature 0.600 H Granulocytes % Neutrophils % 64.2 Lymphocytes % 10.5 L Monocytes % 17.6 H Eosinophils % 6.8 Basophils % 0.3 Nucleated Red Blood 0.0 Cells % Immature 0.040 H Granulocytes # Neutrophils # 4.2 Lymphocytes # 0.7 L Monocytes # 1.2 H Eosinophils # 0.5 Basophils # 0.0 Nucleated Red Blood 0.0 Cells # Prothrombin Time 15.5 H Prothrombin Time 1.2 Ratio INR International 1.22 Normalized Ratio Activated 90.1 *H Partial Thromboplast Time Sodium Level 136 Potassium Level 4.2 Chloride Level 98 Carbon Dioxide Level 22 Anion Gap 16 H Blood Urea Nitrogen 105 H Creatinine 5.83 H Est Glomerular 11 L Filtrat Rate mL/min Glucose Level 91 # Calcium Level 8.8 Magnesium Level 2.7 H Total Bilirubin 0.6 Direct Bilirubin 0.00 Indirect Bilirubin 0.6 Aspartate Amino 33 Transf (AST/SGOT) Alanine 29 Aminotransferase (AL T/SGPT) Alkaline Phosphatase 85 Total Protein 6.6 Albumin 3.9 Globulin 2.70 Albumin/Globulin 1.44 Ratio Test 09/21/18 12:48 09/21/18 14:08 09/21/18 17:08 Bedside Glucose 68 L 104 159 CC: MELA BEAULIEU MD ; Exam/Review of Systems Exam Vitals Vital Signs Date Temp Pulse Resp B/P (MAP) Pulse Ox O2 O2 Flow FiO2 Time Delivery Rate 09/21/18 83 16:01 09/21/18 98.0 19 168/77 97 15:47 (107) 09/21/18 Nasal 2.0 07:26 Cannula 09/20/18 35 01:34 Intake and Output 09/20/18 09/20/18 09/21/18 1414:59 22:59 06:59 IntakeIntake Total 950 ml 240 ml BalanceBalance 950 ml 240 ml Results Results 24hrs Laboratory Tests Test 09/20/18 21:57 09/21/18 05:20 09/21/18 07:59 09/21/18 11:52 Bedside Glucose 126 91 56 L White Blood Count 6.6 Red Blood Count 2.93 L Hemoglobin 8.1 L Hematocrit 25.0 L Mean Corpuscular 85.3 Volume Mean Corpuscular 27.6 L Hemoglobin Mean Corpuscular 32.4 Hemoglobin Concent Red Cell 13.4 Distribution Width Platelet Count 164 Mean Platelet Volume 11.6 H Immature 0.600 H Granulocytes % Neutrophils % 64.2 Lymphocytes % 10.5 L Monocytes % 17.6 H Eosinophils % 6.8 Basophils % 0.3 Nucleated Red Blood 0.0 Cells % Immature 0.040 H Granulocytes # Neutrophils # 4.2 Lymphocytes # 0.7 L Monocytes # 1.2 H Eosinophils # 0.5 Basophils # 0.0 Nucleated Red Blood 0.0 Cells # Prothrombin Time 15.5 H Prothrombin Time 1.2 Ratio INR International 1.22 Normalized Ratio Activated 90.1 *H Partial Thromboplast Time Sodium Level 136 Potassium Level 4.2 Chloride Level 98 Carbon Dioxide Level 22 Anion Gap 16 H Blood Urea Nitrogen 105 H Creatinine 5.83 H Est Glomerular 11 L Filtrat Rate mL/min Glucose Level 91 # Calcium Level 8.8 Magnesium Level 2.7 H Total Bilirubin 0.6 Direct Bilirubin 0.00 Indirect Bilirubin 0.6 Aspartate Amino 33 Transf (AST/SGOT) Alanine 29 Aminotransferase (AL T/SGPT) Alkaline Phosphatase 85 Total Protein 6.6 Albumin 3.9 Globulin 2.70 Albumin/Globulin 1.44 Ratio Test 09/21/18 12:48 09/21/18 14:08 09/21/18 17:08 Bedside Glucose 68 L 104 159 Medications Medication Current Medications Lorazepam (Ativan) 0.5 mg Q8H PRN PO ANXIETY; Start 09/13/18 at 12:30 Ondansetron HCl (Zofran Inj) 4 mg Q6H PRN IV NAUSEA AND/OR VOMITING Last administered on 09/16/18at 21:16; Admin Dose 4 MG; Start 09/13/18 at 12:30 Nitroglycerin (Nitroglycerin (Sl Tab) 0.4 Mg) 1 tab Q5M PRN SL CHEST PAIN; Start 09/13/18 at 12:30 Acetaminophen (Tylenol Tab) 650 mg Q6H PRN PO PAIN LEVEL 1-3 OR FEVER Last administered on 09/19/18at 10:02; Admin Dose 650 MG; Start 09/13/18 at 12:30 Zolpidem Tartrate (Ambien) 5 mg QHS PRN PO INSOMNIA Last administered on 09/19/18at 22:47; Admin Dose 5 MG; Start 09/13/18 at 12:30 Apixaban (Eliquis) 2.5 mg BID PO Last administered on 09/21/18 08:00; Admin Do se 2.5 MG; Start 09/13/18 at 21:00 Atorvastatin Calcium (Lipitor) 80 mg QHS PO Last administered on 09/20/18 21:42; Admin Dose 80 MG; Start 09/13/18 at 21:00 Cholecalciferol (Vitamin D) 2,000 unit DAILY PO Last administered on 09/21/18 08:01; Admin Dose 2,000 UNIT; Start 09/14/18 at 09:00 EZETIMIBE (Zetia) 10 mg HS PO Last administered on 09/20/18 21:43; Admin Dose 10 MG; Start 09/13/18 at 21:00 Insulin Glargine (Lantus) 30 units QHS SC Last administered on 09/20/18 22:24; Admin Dose 30 UNITS; Start 09/13/18 at 21:00 Isosorbide Mononitrate (Imdur) 30 mg DAILY PO Last administered on 09/21/18 08:00; Admin Dose 30 MG; Start 09/14/18 at 09:00 Spironolactone (Aldactone) 25 mg DAILY PO Last administered on 09/17/18 08:31; Admin Dose 25 MG; Start 09/14/18 at 09:00; Status Hold Insulin Aspart (Novolog Insulin Pen) 10 unit WITH MEALS SC Last administered on 09/21/18 17:14; Admin Dose 10 UNIT; Start 09/13/18 at 18:00 Miscellaneous Information 1 ea NOTE XX ; Start 09/13/18 at 13:00 Glucose (Glutose) 15 gm Q15M PRN PO DECREASED GLUCOSE; Start 09/13/18 at 13:00 Glucose (Glutose) 22.5 gm Q15M PRN PO DECREASED GLUCOSE; Start 09/13/18 at 13:00 Dextrose (D50w Syringe) 25 ml Q15M PRN IV DECREASED GLUCOSE; Start 09/13/18 at 13:00 Dextrose (D50w Syringe) 50 ml Q15M PRN IV DECREASED GLUCOSE; Start 09/13/18 at 13:00 Glucagon (Glucagen) 1 mg Q15M PRN IM DECREASED GLUCOSE; Start 09/13/18 at 13:00 Glucose (Glutose) 15 gm Q15M PRN BUCCAL DECREASED GLUCOSE; Start 09/13/18 at 13:00 Epoetin Randolph (Epogen (Non Esrd/Non Oncology)) 6,000 units TuThSa@17 SC Last administered on 09/21/18 17:07; Admin Dose 6,000 UNITS; Start 09/14/18 at 17:00 Sevelamer Carbonate (Renvela) 800 mg WITH MEALS PO Last administered on 09/21/18 17:07; Admin Dose 800 MG; Start 09/14/18 at 08:00 Doxazosin Mesylate (Cardura) 2 mg HS PO Last administered on 09/20/18 21:42; Admin Dose 2 MG; Start 09/15/18 at 21:00 Hydralazine HCl (Apresoline) 10 mg Q6H PRN IV ELEVATED SYSTOLIC BP Last administered on 09/19/18 00:18; Admin Dose 10 MG; Start 09/16/18 at 11:00 Cefepime HCl 50 ml @ 100 mls/hr Q24H IVPB Last administered on 09/21/18 15:19; Admin Dose 100 MLS/HR; Start 09/16/18 at 16:00 Nifedipine (Procardia Xl) 30 mg BID PO Last administered on 09/21/18 08:00; Admin Dose 30 MG; Start 09/16/18 at 16:30 Polyethylene Glycol (Miralax) 17 gm DAILY PO Last administered on 09/17/18 08:33; Admin Dose 17 GM; Start 09/16/18 at 19:00 Clindamycin HCl/ Dextrose 50 ml @ 50 mls/hr Q8 IVPB Last administered on 09/21/18 14:08; Admin Dose 50 MLS/HR; Start 09/18/18 at 15:30 Polyethylene Glycol (Miralax) 17 gm DAILY PRN PO constipation Last administered on 09/19/18 18:30; Admin Dose 17 GM; Start 09/19/18 at 16:30 Magnesium Hydroxide (Milk Of Mag) 30 ml BID PRN PO CONSTIPATION Last administered on 09/20/18 21:59; Admin Dose 30 ML; Start 09/19/18 at 23:00 Tramadol HCl (Ultram) 50 mg Q6H PRN PO MODERATE PAIN LEVEL 4-6; Start 09/20/18 at 16:30 Docusate Sodium (Colace) 100 mg BID PO Last administered on 1/26/19at 08:00; Admin Dose 100 MG; Start 09/20/18 at 21:35 Fluticasone Propionate (Flonase 0.05% Nasal) 1 spray BID NASAL Last administered on 09/21/18at 08:01; Admin Dose 1 SPRAY; Start 09/21/18 at 09:00 Hydralazine HCl (Apresoline) 100 mg TID PO Last administered on 09/21/18at 14:09; Admin Dose 100 MG; Start 09/21/18 at 13:00 Morphine Sulfate (morphine) 6 mg Q4H PRN PO SEVERE PAIN LEVEL 7-10; Start 09/21/18 at 14:00 Famotidine (Pepcid) 20 mg Q24H PO ; Start 09/21/18 at 21:00 LIZETT GOLD NP Sep 21, 2018 20:02
[2018-09-21] MEDS: DOXAZOSIN 2 MG TAB PO SCH (21:12)
[2018-09-21] MEDS: ATORVASTATIN 80 MG TAB PO SCH (21:12)
[2018-09-21] MEDS: EZETIMIBE 10 MG TAB PO SCH (21:13)
[2018-09-21] MEDS: MAGNESIUM HYDROXIDE 30ML CUP PO PRN (21:32)
[2018-09-21] MEDS: INSULIN GLARGINE [LANTus] (100 UNITS/ML) SYG SC SCH (22:39)
[2018-09-22] VITALS (11 sets, daily range): BP systolic 136–165; BP diastolic 66–79; PULSE 76–84; RESP 16–20
[2018-09-22] MEDS: CLINDAMYCIN 600 MG/D5W (PMX) 50 ML IVPB SCH ×3 (05:40→22:16)
--- NOTE | 2018-09-22 06:19 | NUR ---
EOSS PT AAO x4. No s/s of respiratory distress.Pt states that he has lower back , but refuses pain management. He states that he is able to tolerate pain 4/10. No acute changes.
--- NOTE | 2018-09-22 07:02 | CONS ---
Assessment/Plan Assessment/Plan Assessment/Plan (Daily) 1.Acute kidney injury on CKD III due to hemodynamics from CHF 2. acute CHF exacerbation, acute on chronic, diastolic, with fluid overload and pulmonary congestion with anasarca 3. 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 H/o HTN 5. LE edema/anasarca 6. HL 7. Anemia of chronic kidney disease Plan: BUN/Cr contines to rise, 105/5.83 -C/o back pain and tail bone pain , MRI LS SPine showed diffuse OA and bone disease - Losartan, Spironolactone and bumex has been on hold - s.p 2 U PRBC yesterday on epogen 6000 units SQ TTS for anemia Continue Renvela 800mg TID for hyperphosphatemia - monitor electrolytes and replace aggressively Renal US on previous visit- unremarkable, Kidney size R 12.0, left 11.2 cm, normal echogenicity on last visit Nifedipine 60mg BID , Coreg 6.25mg PO BID, Hydralazine 100mg PO TID (Dr Pascual Discussed with pt about HD options, he is not agreeing with HD, he wants to wait and he wants to talk to his primary care physician, will try to reach out to his PMD ) wiill follow up Patient seen in collaboration with Dr Jennifer Pascual. staff Consultation Date/Type/Reason Admit Date/Time Sep 13, 2018 at 08:45 Initial Consult Date 09/18/18 Type of Consult NEPHROLOGY Requesting Provider: LEXII REED Date/Time of Note DATE: 09/22/18 TIME: 07:02 24 HR Interval Summary Free Text/Dictation -NAD -feels better on supplement oxyen - no new events reported overnight - plan of care dw patient; all Qs answered Constitutional: requiring O2 Detailed Summary Eyes: no complaints ENT: no complaints Respiratory: no complaints Cardiovascular: no complaints Gastrointestinal: no complaints Genitourinary: no complaints Musculoskeletal: no complaints Skin: no complaints Neurologic: no complaints Exam/Review of Systems Exam Vitals Vital Signs Date Temp Pulse Resp B/P (MAP) Pulse Ox O2 O2 Flow FiO2 Time Delivery Rate 09/22/18 97.7 80 20 144/67 97 04:45 (92) 09/22/18 3.0 03:57 09/22/18 Nasal 02:35 Cannula 09/20/18 35 01:34 Intake and Output 09/21/18 09/21/18 09/22/18 1515:00 23:00 07:00 IntakeIntake Total 500 ml OutputOutput Total 400 ml BalanceBalance 100 ml Constitutional: alert, oriented, well developed, obese Psych: nl mood/affect Head: atraumatic Eyes: EOMI, nl lids, nl sclera ENMT: nl external ears & nose Neck: non-tender Respiratory: clear to auscultation Cardiovascular: nl pulses, other (S1S2) Gastrointestinal: soft, non-tender Musculoskeletal: muscle weakness Extremities: normal pulses Neurological: nl mental status, nl speech Skin: nl turgor Lymph: nontender Results Result Diagram: 09/21/18 0520 09/21/18 0520 Results 24hrs Laboratory Tests Test 09/21/18 07:59 09/21/18 11:52 09/21/18 12:48 09/21/18 14:08 Bedside Glucose 91 56 L 68 L 104 Test 09/21/18 17:08 09/21/18 21:17 Bedside Glucose 159 141 Medications Medication Current Medications Lorazepam (Ativan) 0.5 mg Q8H PRN PO ANXIETY; Start 09/13/18 at 12:30 Ondansetron HCl (Zofran Inj) 4 mg Q6H PRN IV NAUSEA AND/OR VOMITING Last administered on 09/16/18at 21:16; Admin Dose 4 MG; Start 09/13/18 at 12:30 Nitroglycerin (Nitroglycerin (Sl Tab) 0.4 Mg) 1 tab Q5M PRN SL CHEST PAIN; Start 09/13/18 at 12:30 Acetaminophen (Tylenol Tab) 650 mg Q6H PRN PO PAIN LEVEL 1-3 OR FEVER Last administered on 09/19/18at 10:02; Admin Dose 650 MG; Start 09/13/18 at 12:30 Zolpidem Tartrate (Ambien) 5 mg QHS PRN PO INSOMNIA Last administered on 09/19/18at 22:47; Admin Dose 5 MG; Start 09/13/18 at 12:30 Apixaban (Eliquis) 2.5 mg BID PO Last administered on 09/21/18at 21:12; Admin Dose 2.5 MG; Start 09/13/18 at 21:00 Atorvastatin Calcium (Lipitor) 80 mg QHS PO Last administered on 09/21/18 21:12; Admin Dose 80 MG; Start 09/13/18 at 21:00 Cholecalciferol (Vitamin D) 2,000 unit DAILY PO Last administered on 09/21/18 08:01; Admin Dose 2,000 UNIT; Start 09/14/18 at 09:00 EZETIMIBE (Zetia) 10 mg HS PO Last administered on 09/21/18 21:13; Admin Dose 10 MG; Start 09/13/18 at 21:00 Insulin Glargine (Lantus) 30 units QHS SC Last administered on 09/21/18 22:39; Admin Dose 30 UNITS; Start 09/13/18 at 21:00 Isosorbide Mononitrate (Imdur) 30 mg DAILY PO Last administered on 09/21/18 08:00; Admin Dose 30 MG; Start 09/14/18 at 09:00 Spironolactone (Aldactone) 25 mg DAILY PO Last administered on 09/17/18 08:31; Admin Dose 25 MG; Start 09/14/18 at 09:00; Status Hold Insulin Aspart (Novolog Insulin Pen) 10 unit WITH MEALS SC Last administered on 09/21/18 17:14; Admin Dose 10 UNIT; Start 09/13/18 at 18:00 Miscellaneous Information 1 ea NOTE XX ; Start 09/13/18 at 13:00 Glucose (Glutose) 15 gm Q15M PRN PO DECREASED GLUCOSE; Start 09/13/18 at 13:00 Glucose (Glutose) 22.5 gm Q15M PRN PO DECREASED GLUCOSE; Start 09/13/18 at 13:00 Dextrose (D50w Syringe) 25 ml Q15M PRN IV DECREASED GLUCOSE; Start 09/13/18 at 13:00 Dextrose (D50w Syringe) 50 ml Q15M PRN IV DECREASED GLUCOSE; Start 09/13/18 at 13:00 Glucagon (Glucagen) 1 mg Q15M PRN IM DECREASED GLUCOSE; Start 09/13/18 at 13:00 Glucose (Glutose) 15 gm Q15M PRN BUCCAL DECREASED GLUCOSE; Start 09/13/18 at 13:00 Epoetin Randolph (Epogen (Non Esrd/Non Oncology)) 6,000 units TuThSa@17 SC Last administered on 09/21/18 17:07; Admin Dose 6,000 UNITS; Start 09/14/18 at 17:00 Sevelamer Carbonate (Renvela) 800 mg WITH MEALS PO Last administered on 09/21/18 17:07; Admin Dose 800 MG; Start 09/14/18 at 08:00 Doxazosin Mesylate (Cardura) 2 mg HS PO Last administered on 09/21/18 21:12; Admin Dose 2 MG; Start 09/15/18 at 21:00 Hydralazine HCl (Apresoline) 10 mg Q6H PRN IV ELEVATED SYSTOLIC BP Last administered on 09/19/18 00:18; Admin Dose 10 MG; Start 09/16/18 at 11:00 Cefepime HCl 50 ml @ 100 mls/hr Q24H IVPB Last administered on 09/21/18 15:1 9; Admin Dose 100 MLS/HR; Start 09/16/18 at 16:00 Nifedipine (Procardia Xl) 30 mg BID PO Last administered on 09/21/18 21:13; Admin Dose 30 MG; Start 09/16/18 at 16:30 Polyethylene Glycol (Miralax) 17 gm DAILY PO Last administered on 09/17/18 08:33; Admin Dose 17 GM; Start 09/16/18 at 19:00 Clindamycin HCl/ Dextrose 50 ml @ 50 mls/hr Q8 IVPB Last administered on 09/22/18 05:40; Admin Dose 50 MLS/HR; Start 09/18/18 at 15:30 Polyethylene Glycol (Miralax) 17 gm DAILY PRN PO constipation Last administered on 09/19/18 18:30; Admin Dose 17 GM; Start 09/19/18 at 16:30 Magnesium Hydroxide (Milk Of Mag) 30 ml BID PRN PO CONSTIPATION Last administered on 09/21/18 21:32; Admin Dose 30 ML; Start 09/19/18 at 23:00 Tramadol HCl (Ultram) 50 mg Q6H PRN PO MODERATE PAIN LEVEL 4-6; Start 09/20/18 at 16:30 Docusate Sodium (Colace) 100 mg BID PO Last administered on 09/21/18 21:12; Admin Dose 100 MG; Start 09/20/18 at 21:35 Fluticasone Propionate (Flonase 0.05% Nasal) 1 spray BID NASAL Last administered on 09/21/18 21:25; Admin Dose 1 SPRAY; Start 09/21/18 at 09:00 Hydralazine HCl (Apresoline) 100 mg TID PO Last administered on 09/21/18 21:11; Admin Dose 100 MG; Start 09/21/18 at 13:00 Morphine Sulfate (morphine) 6 mg Q4H PRN PO SEVERE PAIN LEVEL 7-10 Last administered on 09/21/18 21:33; Admin Dose 6 MG; Start 09/21/18 at 14:00 Famotidine (Pepcid) 20 mg Q24H PO Last administered on 09/21/18 21:13; Admin Dose 20 MG; Start 09/21/18 at 21:00 GRETA MARTINES Sep 22, 2018 07:02
[2018-09-22] MEDS: FLUTICASONE 0.05% 16 GM NAS SPRAY NASAL SCH ×2 (08:03→22:22)
[2018-09-22] MEDS: CHOLECALCIFEROL 1,000 UNIT TAB PO SCH (08:05)
[2018-09-22] MEDS: DOCUSATE SODIUM 100 MG CAP PO SCH ×2 (08:05→22:15)
[2018-09-22] MEDS: SEVELAMER CARBONATE 800 MG TABLET PO SCH ×3 (08:05→17:08)
[2018-09-22] MEDS: APIXABAN 5 MG TABLET PO SCH ×2 (08:05→22:29)
[2018-09-22] MEDS: NIFEdipine (XL) 30 MG TAB PO SCH ×2 (08:06→22:16)
[2018-09-22] MEDS: POLYETHYLENE GLYCOL 17 GM PACKET PO SCH (08:06)
[2018-09-22] MEDS: ISOSORBIDE MONONITRATE(SR)30 MG TAB PO SCH (08:06)
[2018-09-22] MEDS: INSULIN ASPART [NOVOLOG] 3 ML PEN SC SCH ×3 (08:16→17:11)
--- NOTE | 2018-09-22 12:42 | CONS ---
Consultation Date/Type/Reason Admit Date/Time Sep 13, 2018 at 08:45 Initial Consult Date SUBJECTIVE: Pt is awake,alert, afebrile. No acute events over night. VS: stable. T: 98.3 LABS: reviewed. Microbiology: Blood culture on admission positive for MRSA. Repeat blood cultures negative WBC labeled nuclear scan revealed no evidence of infection Chest x-ray on admission revealed right base pneumonia with small pleural effus ion. JAVIER revealed no vegetations. WBC labeled nuclear scan negative. Bilateral lower extremities ultrasound was negative CXR today: IMPRESSION: Mild hazy opacification throughout the lungs, slightly improved. There is no focal dense pulmonary parenchymal opacification. Antimicrobials: Cefepime, clindamycin Physical examination: GEN: This is a morbidly obese well-developed middle-aged man who is alert in no distress. HENT: Head atraumatic normocephalic, sclera nonicteric, neck is obese PULM: chest rise symmetrical, breath sounds diminished bases Heart: S1-S2 Abdomen soft bowel sounds present Extremities without cyanosis Assessment: 1. Sepsis on admission 2. Persistent MRSA bacteremia 3. Pneumonia, possible pleural effusion 4. Acute renal failure on chronic kidney disease 5. Morbid obesity 6. Diabetes Plan: Clinically unchanged. Will continue current antibiotics for at least 2 more weeks. CXR noted. Requesting Provider: LEXII REED Date/Time of Note DATE: 09/22/18 TIME: 12:40 Exam/Review of Systems Exam Vitals Vital Signs Date Temp Pulse Resp B/P (MAP) Pulse Ox O2 O2 Flow FiO2 Time Delivery Rate 09/22/18 98.3 81 16 165/79 98 Room Air 11:42 (107) 09/22/18 2.0 07:26 09/20/18 35 01:34 Intake and Output 09/21/18 09/21/18 09/22/18 1515:00 23:00 07:00 IntakeIntake Total 500 ml OutputOutput Total 400 ml BalanceBalance 100 ml Results Result Diagram: 09/21/18 0520 09/22/18 1018 Results 24hrs Laboratory Tests Test 09/21/18 12:48 09/21/18 14:08 09/21/18 17:08 09/21/18 21:17 Bedside Glucose 68 L 104 159 141 Test 09/22/18 08:03 09/22/18 10:18 09/22/18 12:07 Bedside Glucose 84 77 Sodium Level 137 Potassium Level 4.3 Chloride Level 99 Carbon Dioxide Level 22 Anion Gap 16 H Blood Urea Nitrogen 106 H Creatinine 5.45 H Est Glomerular 11 L Filtrat Rate mL/min Glucose Level 58 #L Calcium Level 9.2 Medications Medication Current Medications Lorazepam (Ativan) 0.5 mg Q8H PRN PO ANXIETY; Start 09/13/18 at 12:30 Ondansetron HCl (Zofran Inj) 4 mg Q6H PRN IV NAUSEA AND/OR VOMITING Last administered on 09/16/18 21:16; Admin Dose 4 MG; Start 09/13/18 at 12:30 Nitroglycerin (Nitroglycerin (Sl Tab) 0.4 Mg) 1 tab Q5M PRN SL CHEST PAIN; Start 09/13/18 at 12:30 Acetaminophen (Tylenol Tab) 650 mg Q6H PRN PO PAIN LEVEL 1-3 OR FEVER Last administered on 09/19/18 10:02; Admin Dose 650 MG; Start 09/13/18 at 12:30 Zolpidem Tartrate (Ambien) 5 mg QHS PRN PO INSOMNIA Last administered on 09/19/18 22:47; Admin Dose 5 MG; Start 09/13/18 at 12:30 Apixaban (Eliquis) 2.5 mg BID PO Last administered on 09/22/18 08:05; Admin Dose 2.5 MG; Start 09/13/18 at 21:00 Atorvastatin Calcium (Lipitor) 80 mg QHS PO Last administered on 09/21/18 21:12; Admin Dose 80 MG; Start 09/13/18 at 21:00 Cholecalciferol (Vitamin D) 2,000 unit DAILY PO Last administered on 09/22/18 08:05; Admin Dose 2,000 UNIT; Start 09/14/18 at 09:00 EZETIMIBE (Zetia) 10 mg HS PO Last administered on 09/21/18 21:13; Admin Dose 10 MG; Start 09/13/18 at 21:00 Insulin Glargine (Lantus) 30 units QHS SC Last administered on 09/21/18 22:39; Admin Dose 30 UNITS; Start 09/13/18 at 21:00 Isosorbide Mononitrate (Imdur) 30 mg DAILY PO Last administered on 09/22/18 08:06; Admin Dose 30 MG; Start 09/14/18 at 09:00 Spironolactone (Aldactone) 25 mg DAILY PO Last administered on 09/17/18at 08:31; Admin Dose 25 MG; Start 09/14/18 at 09:00; Status Hold Insulin Aspart (Novolog Insulin Pen) 10 unit WITH MEALS SC Last administered on 09/22/18at 12:10; Admin Dose 10 UNIT; Start 09/13/18 at 18:00 Miscellaneous Information 1 ea NOTE XX ; Start 09/13/18 at 13:00 Glucose (Glutose) 15 gm Q15M PRN PO DECREASED GLUCOSE; Start 09/13/18 at 13:00 Glucose (Glutose) 22.5 gm Q15M PRN PO DECREASED GLUCOSE; Start 09/13/18 at 13:00 Dextrose (D50w Syringe) 25 ml Q15M PRN IV DECREASED GLUCOSE; Start 09/13/18 at 13:00 Dextrose (D50w Syringe) 50 ml Q15M PRN IV DECREASED GLUCOSE; Start 09/13/18 at 13:00 Glucagon (Glucagen) 1 mg Q15M PRN IM DECREASED GLUCOSE; Start 09/13/18 at 13:00 Glucose (Glutose) 15 gm Q15M PRN BUCCAL DECREASED GLUCOSE; Start 09/13/18 at 13:00 Epoetin Randolph (Epogen (Non Esrd/Non Oncology)) 6,000 units TuThSa@17 SC Last administered on 09/21/18at 17:07; Admin Dose 6,000 UNITS; Start 09/14/18 at 17:00 Sevelamer Carbonate (Renvela) 800 mg WITH MEALS PO Last administered on 09/22/18at 12:07; Admin Dose 800 MG; Start 09/14/18 at 08:00 Doxazosin Mesylate (Cardura) 2 mg HS PO Last administered on 09/21/18at 21:12; Admin Dose 2 MG; Start 09/15/18 at 21:00 Hydralazine HCl (Apresoline) 10 mg Q6H PRN IV ELEVATED SYSTOLIC BP Last administered on 09/19/18at 00:18; Admin Dose 10 MG; Start 09/16/18 at 11:00 Cefepime HCl 50 ml @ 100 mls/hr Q24H IVPB Last administered on 09/21/18 15:19; Admin Dose 100 MLS/HR; Start 09/16/18 at 16:00 Nifedipine (Procardia Xl) 30 mg BID PO Last administered on 09/22/18 08:06; Admin Dose 30 MG; Start 09/16/18 at 16:30 Polyethylene Glycol (Miralax) 17 gm DAILY PO Last administered on 09/17/18 08:33; Admin Dose 17 GM; Start 09/16/18 at 19:00 Clindamycin HCl/ Dextrose 50 ml @ 50 mls/hr Q8 IVPB Last administered on 09/22/18 05:40; Admin Dose 50 MLS/HR; Start 09/18/18 at 15:30 Polyethylene Glycol (Miralax) 17 gm DAILY PRN PO constipation Last administered on 09/19/18 18:30; Admin Dose 17 GM; Start 09/19/18 at 16:30 Magnesium Hydroxide (Milk Of Mag) 30 ml BID PRN PO CONSTIPATION Last administered on 09/21/18 21:32; Admin Dose 30 ML; Start 09/19/18 at 23:00 Tramadol HCl (Ultram) 50 mg Q6H PRN PO MODERATE PAIN LEVEL 4-6; Start 09/20/18 at 16:30 Docusate Sodium (Colace) 100 mg BID PO Last administered on 09/22/18 08:05; Admin Dose 100 MG; Start 09/20/18 at 21:35 Fluticasone Propionate (Flonase 0.05% Nasal) 1 spray BID NASAL Last administere d on 09/22/18 08:03; Admin Dose 1 SPRAY; Start 09/21/18 at 09:00 Hydralazine HCl (Apresoline) 100 mg TID PO Last administered on 09/22/18 12:08; Admin Dose 100 MG; Start 09/21/18 at 13:00 Morphine Sulfate (morphine) 6 mg Q4H PRN PO SEVERE PAIN LEVEL 7-10 Last administered on 09/21/18 21:33; Admin Dose 6 MG; Start 09/21/18 at 14:00 Famotidine (Pepcid) 20 mg Q24H PO Last administered on 09/21/18 21:13; Admin Dose 20 MG; Start 09/21/18 at 21:00 JOSE MANUEL FINNEGAN Sep 22, 2018 12:41
--- NOTE | 2018-09-22 14:23 | PN ---
Date/Time of Note Date/Time of Note DATE: 09/22/18 TIME: 14:21 Assessment/Plan VTE Prophylaxis Risk score (from Ns)>0 risk: 3 SCD applied (from Nsg): Yes Pharmacological prophylaxis: heparin Lines/Catheters IV Catheter Type (from Nrs): Saline Lock Urinary Cath still in place: No Assessment/Plan Hospital Course 43 yo male with CKD IV, d CHF, DMII presents with MARIA DEL CARMEN and diastolic CHF, MRSA bacteremia CKD with MARIA DEL CARMEN, volume overload - Holding diuretics now given MARIA DEL CARMEN - Still needs volume removal. He is adamantly against initiation of dialysis - per renal Hypertnesion; - controlled MRSA bactremia: - Vanco x 4 weeks from 09/16. Unclear source. Tagged WBC scan is negative DMII: - basal bolus insulin Discharge when euvolemic and on IV abx x 4 weeks Result Diagram: 09/21/18 0520 09/22/18 1018 Results 24hrs Laboratory Tests Test 09/21/18 17:08 09/21/18 21:17 09/22/18 08:03 09/22/18 10:18 Bedside Glucose 159 141 84 Sodium Level 137 Potassium Level 4.3 Chloride Level 99 Carbon Dioxide Level 22 Anion Gap 16 H Blood Urea Nitrogen 106 H Creatinine 5.45 H Est Glomerular 11 L Filtrat Rate mL/min Glucose Level 58 #L Calcium Level 9.2 Test 09/22/18 12:07 Bedside Glucose 77 Subjective 24 Hr Interval Summary Free Text/Dictation Contionues to complain of orthopnea, SOB Frustrated with whole situation Says he would rather than start dialysis Exam/Review of Systems Exam Vitals Vital Signs Date Temp Pulse Resp B/P (MAP) Pulse Ox O2 O2 Flow FiO2 Time Delivery Rate 09/22/18 80 12:01 09/22/18 98.3 16 165/79 98 Room Air 11:42 (107) 09/22/18 2.0 07:26 09/20/18 35 01:34 Intake and Output 09/21/18 09/21/18 09/22/18 1515:00 23:00 07:00 IntakeIntake Total 500 ml OutputOutput Total 400 ml BalanceBalance 100 ml Exam + JVD Comfortable appearing Lungs clear Legs with mild edema b/l Results Results 24hrs Laboratory Tests Test 09/21/18 17:08 09/21/18 21:17 09/22/18 08:03 09/22/18 10:18 Bedside Glucose 159 141 84 Sodium Level 137 Potassium Level 4.3 Chloride Level 99 Carbon Dioxide Level 22 Anion Gap 16 H Blood Urea Nitrogen 106 H Creatinine 5.45 H Est Glomerular 11 L Filtrat Rate mL/min Glucose Level 58 #L Calcium Level 9.2 Test 09/22/18 12:07 Bedside Glucose 77 Medications Medication Current Medications Lorazepam (Ativan) 0.5 mg Q8H PRN PO ANXIETY; Start 09/13/18 at 12:30 Ondansetron HCl (Zofran Inj) 4 mg Q6H PRN IV NAUSEA AND/OR VOMITING Last administered on 09/16/18 21:16; Admin Dose 4 MG; Start 09/13/18 at 12:30 Nitroglycerin (Nitroglycerin (Sl Tab) 0.4 Mg) 1 tab Q5M PRN SL CHEST PAIN; Start 09/13/18 at 12:30 Acetaminophen (Tylenol Tab) 650 mg Q6H PRN PO PAIN LEVEL 1-3 OR FEVER Last administered on 09/19/18 10:02; Admin Dose 650 MG; Start 09/13/18 at 12:30 Zolpidem Tartrate (Ambien) 5 mg QHS PRN PO INSOMNIA Last administered on 09/19/18 22:47; Admin Dose 5 MG; Start 09/13/18 at 12:30 Apixaban (Eliquis) 2.5 mg BID PO Last administered on 09/22/18 08:05; Admin Dose 2.5 MG; Start 09/13/18 at 21:00 Atorvastatin Calcium (Lipitor) 80 mg QHS PO Last administered on 09/21/18 21:12; Admin Dose 80 MG; Start 09/13/18 at 21:00 Cholecalciferol (Vitamin D) 2,000 unit DAILY PO Last administered on 09/22/18 08:05; Admin Dose 2,000 UNIT; Start 09/14/18 at 09:00 EZETIMIBE (Zetia) 10 mg HS PO Last administered on 09/21/18 21:13; Admin Dose 10 MG; Start 09/13/18 at 21:00 Insulin Glargine (Lantus) 30 units QHS SC Last administered on 09/21/18 22:39; Admin Dose 30 UNITS; Start 09/13/18 at 21:00 Isosorbide Mononitrate (Imdur) 30 mg DAILY PO Last administered on 09/22/18 08:06; Admin Dose 30 MG; Start 09/14/18 at 09:00 Spironolactone (Aldactone) 25 mg DAILY PO Last administered on 09/17/18at 08:31; Admin Dose 25 MG; Start 09/14/18 at 09:00; Status Hold Insulin Aspart (Novolog Insulin Pen) 10 unit WITH MEALS SC Last administered on 09/22/18at 12:10; Admin Dose 10 UNIT; Start 09/13/18 at 18:00 Miscellaneous Information 1 ea NOTE XX ; Start 09/13/18 at 13:00 Glucose (Glutose) 15 gm Q15M PRN PO DECREASED GLUCOSE; Start 09/13/18 at 13:00 Glucose (Glutose) 22.5 gm Q15M PRN PO DECREASED GLUCOSE; Start 09/13/18 at 13:00 Dextrose (D50w Syringe) 25 ml Q15M PRN IV DECREASED GLUCOSE; Start 09/13/18 at 13:00 Dextrose (D50w Syringe) 50 ml Q15M PRN IV DECREASED GLUCOSE; Start 09/13/18 at 13:00 Glucagon (Glucagen) 1 mg Q15M PRN IM DECREASED GLUCOSE; Start 09/13/18 at 13:00 Glucose (Glutose) 15 gm Q15M PRN BUCCAL DECREASED GLUCOSE; Start 09/13/18 at 13:00 Epoetin Randolph (Epogen (Non Esrd/Non Oncology)) 6,000 units TuThSa@17 SC Last administered on 09/21/18at 17:07; Admin Dose 6,000 UNITS; Start 09/14/18 at 17:00 Sevelamer Carbonate (Renvela) 800 mg WITH MEALS PO Last administered on 09/22/18at 12:07; Admin Dose 800 MG; Start 09/14/18 at 08:00 Doxazosin Mesylate (Cardura) 2 mg HS PO Last administered on 09/21/18at 21:12; Admin Dose 2 MG; Start 09/15/18 at 21:00 Hydralazine HCl (Apresoline) 10 mg Q6H PRN IV ELEVATED SYSTOLIC BP Last administered on 09/19/18at 00:18; Admin Dose 10 MG; Start 09/16/18 at 11:00 Cefepime HCl 50 ml @ 100 mls/hr Q24H IVPB Last administered on 09/21/18 15:19; Admin Dose 100 MLS/HR; Start 09/16/18 at 16:00 Nifedipine (Procardia Xl) 30 mg BID PO Last administered on 09/22/18 08:06; Admin Dose 30 MG; Start 09/16/18 at 16:30 Polyethylene Glycol (Miralax) 17 gm DAILY PO Last administered on 09/17/18 08:33; Admin Dose 17 GM; Start 09/16/18 at 19:00 Clindamycin HCl/ Dextrose 50 ml @ 50 mls/hr Q8 IVPB Last administered on 09/22/18 05:40; Admin Dose 50 MLS/HR; Start 09/18/18 at 15:30 Polyethylene Glycol (Miralax) 17 gm DAILY PRN PO constipation Last administered on 09/19/18 18:30; Admin Dose 17 GM; Start 09/19/18 at 16:30 Magnesium Hydroxide (Milk Of Mag) 30 ml BID PRN PO CONSTIPATION Last administered on 09/21/18 21:32; Admin Dose 30 ML; Start 09/19/18 at 23:00 Tramadol HCl (Ultram) 50 mg Q6H PRN PO MODERATE PAIN LEVEL 4-6; Start 09/20/18 at 16:30 Docusate Sodium (Colace) 100 mg BID PO Last administered on 09/22/18 08:05; Admin Dose 100 MG; Start 09/20/18 at 21:35 Fluticasone Propionate (Flonase 0.05% Nasal) 1 spray BID NASAL Last administ ered on 09/22/18 08:03; Admin Dose 1 SPRAY; Start 09/21/18 at 09:00 Hydralazine HCl (Apresoline) 100 mg TID PO Last administered on 09/22/18 12:08; Admin Dose 100 MG; Start 09/21/18 at 13:00 Morphine Sulfate (morphine) 6 mg Q4H PRN PO SEVERE PAIN LEVEL 7-10 Last administered on 09/21/18 21:33; Admin Dose 6 MG; Start 09/21/18 at 14:00 Famotidine (Pepcid) 20 mg Q24H PO Last administered on 09/21/18 21:13; Admin Dose 20 MG; Start 09/21/18 at 21:00 DAMIEN URBANO MD Sep 22, 2018 14:23
--- NOTE | 2018-09-22 15:24 | CONS ---
Assessment/Plan Cardiology NYHA: III Heart Failure Type: Diastolic Assessment/Plan Assessment/Plan (Daily) 1.Bacteremia-staph aureus 2.PAF 3.CHF 4.Renal failure 5. Anemia Hypertensive in NSR Continue Imdur Continue hydralazine continue nifedipine Continue Eliquis Continue Zetia Continue Insulin Consultation Date/Type/Reason Admit Date/Time Sep 13, 2018 at 08:45 Initial Consult Date 09/18/18 Type of Consult Cardiology Requesting Provider: LEXII REED Date/Time of Note DATE: 09/22/18 TIME: 15:23 Exam/Review of Systems Vital Signs Vitals Vital Signs Date Temp Pulse Resp B/P (MAP) Pulse Ox O2 O2 Flow FiO2 Time Delivery Rate 09/22/18 80 12:01 09/22/18 98.3 16 165/79 98 Room Air 11:42 (107) 09/22/18 2.0 07:26 09/20/18 35 01:34 Intake and Output 09/21/18 09/21/18 09/22/18 1414:59 22:59 06:59 IntakeIntake Total 500 ml OutputOutput Total 400 ml BalanceBalance 100 ml Exam Exam Constitutional: alert Head: normocephalic, atraumatic Neck: supple, non-tender Respiratory: clear to auscultation Cardiovascular: regular rate and rhythm (no m/r/g) Gastrointestinal: soft Extremities: normal pulses Labs Result Diagram: 09/21/18 0520 09/22/18 1018 Results 24hrs Laboratory Tests Test 09/21/18 17:08 09/21/18 21:17 09/22/18 08:03 09/22/18 10:18 Bedside Glucose 159 141 84 Sodium Level 137 Potassium Level 4.3 Chloride Level 99 Carbon Dioxide Level 22 Anion Gap 16 H Blood Urea Nitrogen 106 H Creatinine 5.45 H Est Glomerular 11 L Filtrat Rate mL/min Glucose Level 58 #L Calcium Level 9.2 Test 09/22/18 12:07 Bedside Glucose 77 Medications Medications Current Medications Lorazepam (Ativan) 0.5 mg Q8H PRN PO ANXIETY; Start 09/13/18 at 12:30 Ondansetron HCl (Zofran Inj) 4 mg Q6H PRN IV NAUSEA AND/OR VOMITING Last administered on 09/16/18at 21:16; Admin Dose 4 MG; Start 09/13/18 at 12:30 Nitroglycerin (Nitroglycerin (Sl Tab) 0.4 Mg) 1 tab Q5M PRN SL CHEST PAIN; Start 09/13/18 at 12:30 Acetaminophen (Tylenol Tab) 650 mg Q6H PRN PO PAIN LEVEL 1-3 OR FEVER Last administered on 09/19/18 10:02; Admin Dose 650 MG; Start 09/13/18 at 12:30 Zolpidem Tartrate (Ambien) 5 mg QHS PRN PO INSOMNIA Last administered on 09/19/18 22:47; Admin Dose 5 MG; Start 09/13/18 at 12:30 Apixaban (Eliquis) 2.5 mg BID PO Last administered on 09/22/18 08:05; Admin Dose 2.5 MG; Start 09/13/18 at 21:00 Atorvastatin Calcium (Lipitor) 80 mg QHS PO Last administered on 09/21/18 21:12; Admin Dose 80 MG; Start 09/13/18 at 21:00 Cholecalciferol (Vitamin D) 2,000 unit DAILY PO Last administered on 09/22/18 08:05; Admin Dose 2,000 UNIT; Start 09/14/18 at 09:00 EZETIMIBE (Zetia) 10 mg HS PO Last administered on 09/21/18 21:13; Admin Dose 10 MG; Start 09/13/18 at 21:00 Insulin Glargine (Lantus) 30 units QHS SC Last administered on 09/21/18 22:39; Admin Dose 30 UNITS; Start 09/13/18 at 21:00 Isosorbide Mononitrate (Imdur) 30 mg DAILY PO Last administered on 09/22/18 08:06; Admin Dose 30 MG; Start 09/14/18 at 09:00 Spironolactone (Aldactone) 25 mg DAILY PO Last administered on 09/17/18 08:31; Admin Dose 25 MG; Start 09/14/18 at 09:00; Status Hold Insulin Aspart (Novolog Insulin Pen) 10 unit WITH MEALS SC Last administered on 09/22/18 12:10; Admin Dose 10 UNIT; Start 09/13/18 at 18:00 Miscellaneous Information 1 ea NOTE XX ; Start 09/13/18 at 13:00 Glucose (Glutose) 15 gm Q15M PRN PO DECREASED GLUCOSE; Start 09/13/18 at 13:00 Glucose (Glutose) 22.5 gm Q15M PRN PO DECREASED GLUCOSE; Start 09/13/18 at 13:00 Dextrose (D50w Syringe) 25 ml Q15M PRN IV DECREASED GLUCOSE; Start 09/13/18 at 13:00 Dextrose (D50w Syringe) 50 ml Q15M PRN IV DECREASED GLUCOSE; Start 09/13/18 at 13:00 Glucagon (Glucagen) 1 mg Q15M PRN IM DECREASED GLUCOSE; Start 09/13/18 at 13:00 Glucose (Glutose) 15 gm Q15M PRN BUCCAL DECREASED GLUCOSE; Start 09/13/18 at 13:00 Epoetin Randolph (Epogen (Non Esrd/Non Oncology)) 6,000 units TuThSa@17 SC Last administered on 09/21/18 17:07; Admin Dose 6,000 UNITS; Start 09/14/18 at 17:00 Sevelamer Carbonate (Renvela) 800 mg WITH MEALS PO Last administered on 09/22/18 12:07; Admin Dose 800 MG; Start 09/14/18 at 08:00 Doxazosin Mesylate (Cardura) 2 mg HS PO Last administered on 09/21/18 21:12; Admin Dose 2 MG; Start 09/15/18 at 21:00 Hydralazine HCl (Apresoline) 10 mg Q6H PRN IV ELEVATED SYSTOLIC BP Last administered on 09/19/18 00:18; Admin Dose 10 MG; Start 09/16/18 at 11:00 Cefepime HCl 50 ml @ 100 mls/hr Q24H IVPB Last administered on 09/21/18 15:19; Admin Dose 100 MLS/HR; Start 09/16/18 at 16:00 Nifedipine (Procardia Xl) 30 mg BID PO Last administered on 09/22/18 08:06; Admin Dose 30 MG; Start 09/16/18 at 16:30 Polyethylene Glycol (Miralax) 17 gm DAILY PO Last administered on 09/17/18 08:33; Admin Dose 17 GM; Start 09/16/18 at 19:00 Clindamycin HCl/ Dextrose 50 ml @ 50 mls/hr Q8 IVPB Last administered on 09/22/18at 14:42; Admin Dose 50 MLS/HR; Start 09/18/18 at 15:30 Polyethylene Glycol (Miralax) 17 gm DAILY PRN PO constipation Last administered on 09/19/18 18:30; Admin Dose 17 GM; Start 09/19/18 at 16:30 Magnesium Hydroxide (Milk Of Mag) 30 ml BID PRN PO CONSTIPATION Last administered on 09/21/18 21:32; Admin Dose 30 ML; Start 09/19/18 at 23:00 Tramadol HCl (Ultram) 50 mg Q6H PRN PO MODERATE PAIN LEVEL 4-6; Start 09/20/18 at 16:30 Docusate Sodium (Colace) 100 mg BID PO Last administered on 09/22/18 08:05; Admin Dose 100 MG; Start 09/20/18 at 21:35 Fluticasone Propionate (Flonase 0.05% Nasal) 1 spray BID NASAL Last administered on 09/22/18 08:03; Admin Dose 1 SPRAY; Start 09/21/18 at 09:00 Hydralazine HCl (Apresoline) 100 mg TID PO Last administered on 09/22/18 12:08; Admin Dose 100 MG; Start 09/21/18 at 13:00 Morphine Sulfate (morphine) 6 mg Q4H PRN PO SEVERE PAIN LEVEL 7-10 Last admi nistered on 09/21/18 21:33; Admin Dose 6 MG; Start 09/21/18 at 14:00 Famotidine (Pepcid) 20 mg Q24H PO Last administered on 09/21/18 21:13; Admin Dose 20 MG; Start 09/21/18 at 21:00 NIDA GALLO M.D. Sep 22, 2018 15:24
[2018-09-22] MEDS: CEFEPIME 1GM/50 ML (PMX) 50 ML IVPB SCH (15:55)
--- NOTE | 2018-09-22 17:15 | NUR ---
RN notes patient awake in bed, aox4 able to make simple needs known, all due medications given, all needs attended. no SOB, no noted. pt and family aware with POC. stable at this time, will endorse
[2018-09-22] MEDS ORDERED: morphine 4 MG/ML VIAL IV STA (22:08)
[2018-09-22] MEDS: ATORVASTATIN 80 MG TAB PO SCH (22:15)
[2018-09-22] MEDS: DOXAZOSIN 2 MG TAB PO SCH (22:15)
[2018-09-22] MEDS: FAMOTIDINE 20 MG TAB PO SCH (22:15)
[2018-09-22] MEDS: EZETIMIBE 10 MG TAB PO SCH (22:16)
[2018-09-22] MEDS: INSULIN GLARGINE [LANTus] (100 UNITS/ML) SYG SC SCH (22:28)
[2018-09-22] MEDS: MAGNESIUM HYDROXIDE 30ML CUP PO PRN (22:30)
[2018-09-23] VITALS (13 sets, daily range): BP systolic 143–168; BP diastolic 69–83; PULSE 66–95; RESP 18–20
[2018-09-23] MEDS: ACCU-CHEK XX SCH ×4 (02:00→17:31)
--- NOTE | 2018-09-23 06:15 | NUR ---
Endorsed to KEITH Wong that Cleocin was not given. Awaiting for the pharmacy to bring the medication. Spoke with Anshul pharmacist that he will send medication
--- NOTE | 2018-09-23 06:41 | NUR ---
EOSS Pt. AAo x4. NO s/s of respiratory distress, pain or discomfort at this time. pt c/o pain last night and refused to have morphine PO. Notified Tito Florence and obtained an order for Morphine 1mg iv x1. No acute changes
--- NOTE | 2018-09-23 07:05 | NUR ---
Notified Dr. Florence about Aptt of 87.5
[2018-09-23] MEDS: CLINDAMYCIN 600 MG/D5W (PMX) 50 ML IVPB SCH ×3 (07:51→20:14)
[2018-09-23] MEDS: SEVELAMER CARBONATE 800 MG TABLET PO SCH ×3 (07:51→17:31)
--- NOTE | 2018-09-23 07:57 | NUR ---
Notified Dr. Florence about Aptt of 87.5. Per Naman have morning doctor check the lab. Endorsed it to KEITH Wong
[2018-09-23] MEDS: INSULIN ASPART [NOVOLOG] 3 ML PEN SC SCH ×3 (08:13→17:39)
[2018-09-23] MEDS: CHOLECALCIFEROL 1,000 UNIT TAB PO SCH (08:15)
[2018-09-23] MEDS: DOCUSATE SODIUM 100 MG CAP PO SCH ×2 (08:15→20:09)
[2018-09-23] MEDS: APIXABAN 5 MG TABLET PO SCH ×2 (08:16→20:09)
[2018-09-23] MEDS: ISOSORBIDE MONONITRATE(SR)30 MG TAB PO SCH (08:16)
[2018-09-23] MEDS: POLYETHYLENE GLYCOL 17 GM PACKET PO SCH (08:17)
[2018-09-23] MEDS: NIFEdipine (XL) 30 MG TAB PO SCH (08:17)
[2018-09-23] MEDS: FLUTICASONE 0.05% 16 GM NAS SPRAY NASAL SCH ×2 (08:18→20:16)
--- NOTE | 2018-09-23 11:09 | CONS ---
Assessment/Plan Cardiology NYHA: III Heart Failure Type: Diastolic Assessment/Plan Hospital Course (Demo Recall) IMP: 1.Bacteremia-staph aureus. s/p JAVIER 09/08 with no definite findings of vegetations. Bld cx's 09/19 NTD 2.PAF 3.CHF 4.Renal failure-worsening. Does not want HD at this time 5.HTN-uncontrolled Recc: -Tele -Continue abx's and f/u cx data -Copntinue hydralazine/procardia/isordil with slight uptitration to improve BP control -ongoing ID f/u and work up -Follow volume status clsoely ? reintiation of diuretics or HD due to sob/orthopnea Consultation Date/Type/Reason Admit Date/Time Sep 13, 2018 at 08:45 Initial Consult Date 09/13/18 Type of Consult Cardiology Reason for Consultation HTN/bacteremia Requesting Provider: LEXII REED Date/Time of Note DATE: 09/23/18 TIME: 11:06 Exam/Review of Systems Vital Signs Vitals Vital Signs Date Temp Pulse Resp B/P (MAP) Pulse Ox O2 O2 Flow FiO2 Time Delivery Rate 09/23/18 77 08:01 09/23/18 Nasal 2.0 08:00 Cannula 09/23/18 98.7 18 155/75 98 07:58 (101) 09/23/18 35 03:11 Intake and Output 09/22/18 09/22/18 09/23/18 1414:59 22:59 06:59 IntakeIntake Total 890 ml 250 ml OutputOutput Total 500 ml BalanceBalance 890 ml -250 ml Exam Exam Review of Systems: CONSTITUTIONAL: No fevers, chills. PULMONARY: sob CARDIOVASCULAR: No chest pain/palpitations GASTROINTESTINAL: No nausea/vomiting. GENITOURINARY: No hematuria/dysuria. MUSCULOSKELETAL: No myagias/arthalgias. PSYCHIATRIC: The patient denies depression. NEUROLOGIC: No weakness Constitutional: alert Psych: no complaints Head: normocephalic ENMT: mucosa pink and moist Neck: supple, jvd (9 cm water) Respiratory: diminished breath sounds (at bases/B) Cardiovascular: regular rate and rhythm Gastrointestinal: soft, non-tender Musculoskeletal: muscle tone (normal) Extremities: edema (trace/B) Neurological: other (No focal deficits) Labs Result Diagram: 09/23/18 0457 09/23/18 0457 Results 24hrs Laboratory Tests Test 09/22/18 12:07 09/22/18 17:08 09/22/18 22:11 09/23/18 04:57 Bedside Glucose 77 135 143 White Blood Count 6.5 Red Blood Count 3.12 L Hemoglobin 8.5 L Hematocrit 26.7 L Mean Corpuscular 85.6 Volume Mean Corpuscular 27.2 L Hemoglobin Mean Corpuscular 31.8 L Hemoglobin Concent Red Cell 13.3 Distribution Width Platelet Count 224 # Mean Platelet Volume 10.6 H Immature 0.900 H Granulocytes % Neutrophils % 63.0 Lymphocytes % 12.4 L Monocytes % 15.1 H Eosinophils % 8.1 H Basophils % 0.5 Nucleated Red Blood 0.0 Cells % Immature 0.060 H Granulocytes # Neutrophils # 4.1 Lymphocytes # 0.8 Monocytes # 1.0 H Eosinophils # 0.5 Basophils # 0.0 Nucleated Red Blood 0.0 Cells # Prothrombin Time 15.5 H Prothrombin Time 1.2 Ratio INR International 1.22 Normalized Ratio Activated 87.5 *H Partial Thromboplast Time Sodium Level 141 Potassium Level 4.2 Chloride Level 100 Carbon Dioxide Level 23 Anion Gap 18 H Blood Urea Nitrogen 103 H Creatinine 5.17 H Est Glomerular 12 L Filtrat Rate mL/min Glucose Level 117 # Calcium Level 8.7 Magnesium Level 3.7 H Total Bilirubin 0.4 Direct Bilirubin 0.00 Indirect Bilirubin 0.4 Aspartate Amino 30 Transf (AST/SGOT) Alanine 31 Aminotransferase (AL T/SGPT) Alkaline Phosphatase 89 Total Protein 6.6 Albumin 3.7 Globulin 2.90 Albumin/Globulin 1.27 Ratio Test 09/23/18 07:50 Bedside Glucose 91 Medications Medications Current Medications Lorazepam (Ativan) 0.5 mg Q8H PRN PO ANXIETY; Start 09/13/18 at 12:30 Ondansetron HCl (Zofran Inj) 4 mg Q6H PRN IV NAUSEA AND/OR VOMITING Last administered on 09/16/18at 21:16; Admin Dose 4 MG; Start 09/13/18 at 12:30 Nitroglycerin (Nitroglycerin (Sl Tab) 0.4 Mg) 1 tab Q5M PRN SL CHEST PAIN; Start 09/13/18 at 12:30 Acetaminophen (Tylenol Tab) 650 mg Q6H PRN PO PAIN LEVEL 1-3 OR FEVER Last administered on 09/19/18 10:02; Admin Dose 650 MG; Start 09/13/18 at 12:30 Zolpidem Tartrate (Ambien) 5 mg QHS PRN PO INSOMNIA Last administered on 09/19/18 22:47; Admin Dose 5 MG; Start 09/13/18 at 12:30 Apixaban (Eliquis) 2.5 mg BID PO Last administered on 09/23/18 08:16; Admin Dose 2.5 MG; Start 09/13/18 at 21:00 Atorvastatin Calcium (Lipitor) 80 mg QHS PO Last administered on 09/22/18 22:15; Admin Dose 80 MG; Start 09/13/18 at 21:00 Cholecalciferol (Vitamin D) 2,000 unit DAILY PO Last administered on 09/23/18 08:15; Admin Dose 2,000 UNIT; Start 09/14/18 at 09:00 EZETIMIBE (Zetia) 10 mg HS PO Last administered on 09/22/18 22:16; Admin Dose 10 MG; Start 09/13/18 at 21:00 Insulin Glargine (Lantus) 30 units QHS SC Last administered on 09/22/18 22:28; Admin Dose 30 UNITS; Start 09/13/18 at 21:00 Isosorbide Mononitrate (Imdur) 30 mg DAILY PO Last administered on 09/23/18 08:16; Admin Dose 30 MG; Start 09/14/18 at 09:00 Spironolactone (Aldactone) 25 mg DAILY PO Last administered on 09/17/18 08:31; Admin Dose 25 MG; Start 09/14/18 at 09:00; Status Hold Insulin Aspart (Novolog Insulin Pen) 10 unit WITH MEALS SC Last administered on 09/23/18 08:13; Admin Dose 10 UNIT; Start 09/13/18 at 18:00 Miscellaneous Information 1 ea NOTE XX ; Start 09/13/18 at 13:00 Glucose (Glutose) 15 gm Q15M PRN PO DECREASED GLUCOSE; Start 09/13/18 at 13:00 Glucose (Glutose) 22.5 gm Q15M PRN PO DECREASED GLUCOSE; Start 09/13/18 at 13:00 Dextrose (D50w Syringe) 25 ml Q15M PRN IV DECREASED GLUCOSE; Start 09/13/18 at 13:00 Dextrose (D50w Syringe) 50 ml Q15M PRN IV DECREASED GLUCOSE; Start 09/13/18 at 13:00 Glucagon (Glucagen) 1 mg Q15M PRN IM DECREASED GLUCOSE; Start 09/13/18 at 13:00 Glucose (Glutose) 15 gm Q15M PRN BUCCAL DECREASED GLUCOSE; Start 09/13/18 at 13:00 Epoetin Randolph (Epogen (Non Esrd/Non Oncology)) 6,000 units TuThSa@17 SC Last administered on 09/21/18 17:07; Admin Dose 6,000 UNITS; Start 09/14/18 at 17:00 Sevelamer Carbonate (Renvela) 800 mg WITH MEALS PO Last administered on 09/23/18 07:51; Admin Dose 800 MG; Start 09/14/18 at 08:00 Doxazosin Mesylate (Cardura) 2 mg HS PO Last administered on 09/22/18at 22:15; Admin Dose 2 MG; Start 09/15/18 at 21:00 Hydralazine HCl (Apresoline) 10 mg Q6H PRN IV ELEVATED SYSTOLIC BP Last ad ministered on 09/19/18 00:18; Admin Dose 10 MG; Start 09/16/18 at 11:00 Cefepime HCl 50 ml @ 100 mls/hr Q24H IVPB Last administered on 09/22/18at 15:55; Admin Dose 100 MLS/HR; Start 09/16/18 at 16:00 Nifedipine (Procardia Xl) 30 mg BID PO Last administered on 09/23/18 08:17; Admin Dose 30 MG; Start 09/16/18 at 16:30 Polyethylene Glycol (Miralax) 17 gm DAILY PO Last administered on 09/17/18at 0 8:33; Admin Dose 17 GM; Start 09/16/18 at 19:00 Clindamycin HCl/ Dextrose 50 ml @ 50 mls/hr Q8 IVPB Last administered on 09/23/18 07:51; Admin Dose 50 MLS/HR; Start 09/18/18 at 15:30 Polyethylene Glycol (Miralax) 17 gm DAILY PRN PO constipation Last administered on 09/19/18 18:30; Admin Dose 17 GM; Start 09/19/18 at 16:30 Magnesium Hydroxide (Milk Of Mag) 30 ml BID PRN PO CONSTIPATION Last ad ministered on 09/22/18 22:30; Admin Dose 30 ML; Start 09/19/18 at 23:00 Tramadol HCl (Ultram) 50 mg Q6H PRN PO MODERATE PAIN LEVEL 4-6; Start 09/20/18 at 16:30 Docusate Sodium (Colace) 100 mg BID PO Last administered on 09/23/18 08:15; Admin Dose 100 MG; Start 09/20/18 at 21:35 Fluticasone Propionate (Flonase 0.05% Nasal) 1 spray BID NASAL Last administered on 09/23/18 08:18; Admin Dose 1 SPRAY; Start 09/21/18 at 09:00 Hydralazine HCl (Apresoline) 100 mg TID PO Last administered on 09/23/18 08:17; Admin Dose 100 MG; Start 09/21/18 at 13:00 Morphine Sulfate (morphine) 6 mg Q4H PRN PO SEVERE PAIN LEVEL 7-10 Last administered on 09/21/18 21:33; Admin Dose 6 MG; Start 09/21/18 at 14:00 Famotidine (Pepcid) 20 mg Q24H PO Last administered on 09/22/18 22:15; Admin Dose 20 MG; Start 09/21/18 at 21:00 Diagnostic Test (Pha) (Accu-Chek) 1 ea 02 XX ; Start 09/23/18 at 02:00 Diagnostic Test (Pha) (Accu-Chek) 1 ea AC MEALS XX Last administered on 09/23/18at 07:51; Admin Dose 1 EA; Start 09/23/18 at 07:00 VI ADAMES Sep 23, 2018 11:09
--- NOTE | 2018-09-23 16:03 | PN ---
Date/Time of Note Date/Time of Note DATE: 09/23/18 TIME: 15:53 Assessment/Plan VTE Prophylaxis Risk score (from Nsg)>0 risk: 2 Pharmacological prophylaxis: NA/contraindicated Pharm contraindication: low risk/ambulating Lines/Catheters IV Catheter Type (from Nrsg): Peripheral IV Urinary Cath still in place: No Assessment/Plan Hospital Course 43 yo male with CKD IV, DHF, DMII presents with MARIA DEL CARMEN and diastolic CHF, MRSA bacteremia CKD with MARIA DEL CARMEN, volume overload - Holding diuretics now given MARIA DEL CARMEN - Still needs volume removal. He is adamantly against initiation of dialysis - per renal Hypertension - controlled MRSA bacteremia - Vanco x 2 weeks from 09/19. Unclear source. Tagged WBC scan is negative -Repeat cultures now negative DMII: - basal bolus insulin Discharge when euvolemic and on IV abx x 4 weeks Prophylaxis: Ambulation DC planning: Continue to monitor renal function, restart diuretics per renal, patient will need home health for IV antibiotics Result Diagram: 09/23/18 0457 09/23/18 0457 Results 24hrs Laboratory Tests Test 09/22/18 17:08 09/22/18 22:11 09/23/18 04:57 09/23/18 07:50 Bedside Glucose 135 143 91 White Blood Count 6.5 Red Blood Count 3.12 L Hemoglobin 8.5 L Hematocrit 26.7 L Mean Corpuscular 85.6 Volume Mean Corpuscular 27.2 L Hemoglobin Mean Corpuscular 31.8 L Hemoglobin Concent Red Cell 13.3 Distribution Width Platelet Count 224 # Mean Platelet Volume 10.6 H Immature 0.900 H Granulocytes % Neutrophils % 63.0 Lymphocytes % 12.4 L Monocytes % 15.1 H Eosinophils % 8.1 H Basophils % 0.5 Nucleated Red Blood 0.0 Cells % Immature 0.060 H Granulocytes # Neutrophils # 4.1 Lymphocytes # 0.8 Monocytes # 1.0 H Eosinophils # 0.5 Basophils # 0.0 Nucleated Red Blood 0.0 Cells # Prothrombin Time 15.5 H Prothrombin Time 1.2 Ratio INR International 1.22 Normalized Ratio Activated 87.5 *H Partial Thromboplast Time Sodium Level 141 Potassium Level 4.2 Chloride Level 100 Carbon Dioxide Level 23 Anion Gap 18 H Blood Urea Nitrogen 103 H Creatinine 5.17 H Est Glomerular 12 L Filtrat Rate mL/min Glucose Level 117 # Calcium Level 8.7 Magnesium Level 3.7 H Total Bilirubin 0.4 Direct Bilirubin 0.00 Indirect Bilirubin 0.4 Aspartate Amino 30 Transf (AST/SGOT) Alanine 31 Aminotransferase (AL T/SGPT) Alkaline Phosphatase 89 Total Protein 6.6 Albumin 3.7 Globulin 2.90 Albumin/Globulin 1.27 Ratio Test 09/23/18 11:42 Bedside Glucose 76 Subjective 24 Hr Interval Summary Lymphatic: lymphadema Exam/Review of Systems Exam Vitals Vital Signs Date Temp Pulse Resp B/P (MAP) Pulse Ox O2 O2 Flow FiO2 Time Delivery Rate 09/23/18 75 12:01 09/23/18 98.7 18 163/77 97 Nasal 11:59 (105) Cannula 09/23/18 2.0 08:00 09/23/18 35 03:11 Intake and Output 09/22/18 09/22/18 09/23/18 1515:00 23:00 07:00 IntakeIntake Total 890 ml 250 ml OutputOutput Total 500 ml BalanceBalance 890 ml -250 ml Constitutional: alert, oriented Respiratory: clear to auscultation Cardiovascular: regular rate and rhythm Gastrointestinal: soft; No distended Extremities: edema Results Results 24hrs Laboratory Tests Test 09/22/18 17:08 09/22/18 22:11 09/23/18 04:57 09/23/18 07:50 Bedside Glucose 135 143 91 White Blood Count 6.5 Red Blood Count 3.12 L Hemoglobin 8.5 L Hematocrit 26.7 L Mean Corpuscular 85.6 Volume Mean Corpuscular 27.2 L Hemoglobin Mean Corpuscular 31.8 L Hemoglobin Concent Red Cell 13.3 Distribution Width Platelet Count 224 # Mean Platelet Volume 10.6 H Immature 0.900 H Granulocytes % Neutrophils % 63.0 Lymphocytes % 12.4 L Monocytes % 15.1 H Eosinophils % 8.1 H Basophils % 0.5 Nucleated Red Blood 0.0 Cells % Immature 0.060 H Granulocytes # Neutrophils # 4.1 Lymphocytes # 0.8 Monocytes # 1.0 H Eosinophils # 0.5 Basophils # 0.0 Nucleated Red Blood 0.0 Cells # Prothrombin Time 15.5 H Prothrombin Time 1.2 Ratio INR International 1.22 Normalized Ratio Activated 87.5 *H Partial Thromboplast Time Sodium Level 141 Potassium Level 4.2 Chloride Level 100 Carbon Dioxide Level 23 Anion Gap 18 H Blood Urea Nitrogen 103 H Creatinine 5.17 H Est Glomerular 12 L Filtrat Rate mL/min Glucose Level 117 # Calcium Level 8.7 Magnesium Level 3.7 H Total Bilirubin 0.4 Direct Bilirubin 0.00 Indirect Bilirubin 0.4 Aspartate Amino 30 Transf (AST/SGOT) Alanine 31 Aminotransferase (AL T/SGPT) Alkaline Phosphatase 89 Total Protein 6.6 Albumin 3.7 Globulin 2.90 Albumin/Globulin 1.27 Ratio Test 09/23/18 11:42 Bedside Glucose 76 Medications Medication Current Medications Lorazepam (Ativan) 0.5 mg Q8H PRN PO ANXIETY; Start 09/13/18 at 12:30 Ondansetron HCl (Zofran Inj) 4 mg Q6H PRN IV NAUSEA AND/OR VOMITING Last administered on 09/16/18 21:16; Admin Dose 4 MG; Start 09/13/18 at 12:30 Nitroglycerin (Nitroglycerin (Sl Tab) 0.4 Mg) 1 tab Q5M PRN SL CHEST PAIN; Start 09/13/18 at 12:30 Acetaminophen (Tylenol Tab) 650 mg Q6H PRN PO PAIN LEVEL 1-3 OR FEVER Last administered on 09/19/18 10:02; Admin Dose 650 MG; Start 09/13/18 at 12:30 Zolpidem Tartrate (Ambien) 5 mg QHS PRN PO INSOMNIA Last administered on 09/19/18 22:47; Admin Dose 5 MG; Start 09/13/18 at 12:30 Apixaban (Eliquis) 2.5 mg BID PO Last administered on 09/23/18 08:16; Admin Dose 2.5 MG; Start 09/13/18 at 21:00 Atorvastatin Calcium (Lipitor) 80 mg QHS PO Last administered on 09/22/18 22:15; Admin Dose 80 MG; Start 09/13/18 at 21:00 Cholecalciferol (Vitamin D) 2,000 unit DAILY PO Last administered on 09/23/18 08:15; Admin Dose 2,000 UNIT; Start 09/14/18 at 09:00 EZETIMIBE (Zetia) 10 mg HS PO Last administered on 09/22/18 22:16; Admin Dose 10 MG; Start 09/13/18 at 21:00 Insulin Glargine (Lantus) 30 units QHS SC Last administered on 09/22/18 22:28; Admin Dose 30 UNITS; Start 09/13/18 at 21:00 Isosorbide Mononitrate (Imdur) 30 mg DAILY PO Last administered on 09/23/18at 08:16; Admin Dose 30 MG; Start 09/14/18 at 09:00 Spironolactone (Aldactone) 25 mg DAILY PO Last administered on 09/17/18 08:31; Admin Dose 25 MG; Start 09/14/18 at 09:00; Status Hold Insulin Aspart (Novolog Insulin Pen) 10 unit WITH MEALS SC Last administered on 09/23/18at 11:45; Admin Dose 10 UNIT; Start 09/13/18 at 18:00 Miscellaneous Information 1 ea NOTE XX ; Start 09/13/18 at 13:00 Glucose (Glutose) 15 gm Q15M PRN PO DECREASED GLUCOSE; Start 09/13/18 at 13:00 Glucose (Glutose) 22.5 gm Q15M PRN PO DECREASED GLUCOSE; Start 09/13/18 at 13:00 Dextrose (D50w Syringe) 25 ml Q15M PRN IV DECREASED GLUCOSE; Start 09/13/18 at 13:00 Dextrose (D50w Syringe) 50 ml Q15M PRN IV DECREASED GLUCOSE; Start 09/13/18 at 13:00 Glucagon (Glucagen) 1 mg Q15M PRN IM DECREASED GLUCOSE; Start 09/13/18 at 13:00 Glucose (Glutose) 15 gm Q15M PRN BUCCAL DECREASED GLUCOSE; Start 09/13/18 at 13:00 Epoetin Randolph (Epogen (Non Esrd/Non Oncology)) 6,000 units TuThSa@17 SC Last administered on 09/21/18at 17:07; Admin Dose 6,000 UNITS; Start 09/14/18 at 17:00 Sevelamer Carbonate (Renvela) 800 mg WITH MEALS PO Last administered on 09/23/18at 11:43; Admin Dose 800 MG; Start 09/14/18 at 08:00 Doxazosin Mesylate (Cardura) 2 mg HS PO Last administered on 09/22/18at 22:15; Admin Dose 2 MG; Start 09/15/18 at 21:00 Hydralazine HCl (Apresoline) 10 mg Q6H PRN IV ELEVATED SYSTOLIC BP Last administered on 09/19/18 00:18; Admin Dose 10 MG; Start 09/16/18 at 11:00 Cefepime HCl 50 ml @ 100 mls/hr Q24H IVPB Last administered on 09/22/18 15:55; Admin Dose 100 MLS/HR; Start 09/16/18 at 16:00 Polyethylene Glycol (Miralax) 17 gm DAILY PO Last administered on 09/17/18 08:33; Admin Dose 17 GM; Start 09/16/18 at 19:00 Clindamycin HCl/ Dextrose 50 ml @ 50 mls/hr Q8 IVPB Last administered on 09/23/18 14:34; Admin Dose 50 MLS/HR; Start 09/18/18 at 15:30 Polyethylene Glycol (Miralax) 17 gm DAILY PRN PO constipation Last administered on 09/19/18 18:30; Admin Dose 17 GM; Start 09/19/18 at 16:30 Magnesium Hydroxide (Milk Of Mag) 30 ml BID PRN PO CONSTIPATION Last administered on 09/22/18 22:30; Admin Dose 30 ML; Start 09/19/18 at 23:00 Tramadol HCl (Ultram) 50 mg Q6H PRN PO MODERATE PAIN LEVEL 4-6; Start 09/20/18 at 16:30 Docusate Sodium (Colace) 100 mg BID PO Last administered on 09/23/18 08:15; Admin Dose 100 MG; Start 09/20/18 at 21:35 Fluticasone Propionate (Flonase 0.05% Nasal) 1 spray BID NASAL Last administered on 09/23/18 08:18; Admin Dose 1 SPRAY; Start 09/21/18 at 09:00 Hydralazine HCl (Apresoline) 100 mg TID PO Last administered on 09/23/18 13:07; Admin Dose 100 MG; Start 09/21/18 at 13:00 Morphine Sulfate (morphine) 6 mg Q4H PRN PO SEVERE PAIN LEVEL 7-10 Last administered on 09/21/18 21:33; Admin Dose 6 MG; Start 09/21/18 at 14:00 Famotidine (Pepcid) 20 mg Q24H PO Last administered on 09/22/18 22:15; Admin Dose 20 MG; Start 09/21/18 at 21:00 Diagnostic Test (Pha) (Accu-Chek) 1 ea 02 XX ; Start 09/23/18 at 02:00 Diagnostic Test (Pha) (Accu-Chek) 1 ea AC MEALS XX Last administered on 09/23/18at 11:43; Admin Dose 1 EA; Start 09/23/18 at 07:00 Nifedipine (Procardia Xl) 60 mg BID PO ; Start 09/23/18 at 21:00 DAPHNE GALAN Sep 23, 2018 16:03
[2018-09-23] MEDS: CEFEPIME 1GM/50 ML (PMX) 50 ML IVPB SCH (16:14)
--- NOTE | 2018-09-23 16:20 | CONS ---
Assessment/Plan Assessment/Plan Hospital Course (Demo Recall) Patient is alert comfortable on nasal cannula, no fevers overnight WBC 6.5 no shift no bands BUN 103 creatinine 5.17 Microbiology: Blood culture on admission grew MRSA, repeat blood cultures since September 19 negative Antimicrobials: Cefepime, clindamycin Physical examination: This is a morbidly obese well-developed middle-aged man who is alert in no distress. Head atraumatic normocephalic sclera nonicteric neck is obese chest rise symmetrical breath sounds diminished bases heart: S1-S2 abdomen soft bowel sounds present extremities without cyanosis Assessment: 1. Sepsis on admission 2. MRSA bacteremia, likely pulmonary source 3. Pneumonia, possible pleural effusion 4. Acute renal failure on chronic kidney disease 5. Morbid obesity 6. Diabetes 7. Likely obstructive sleep apnea and obesity hypoventilation syndrome, on nocturnal BiPAP Plan: Clinically stable, repeat blood cultures negative. Lumbar spine MRI was nondiagnostic secondary to motion artifact, WBC labeled nuclear scan revealed no evidence of infection, continue antibiotics until October 04 Consultation Date/Type/Reason Admit Date/Time Sep 13, 2018 at 08:45 Initial Consult Date 09/13/18 Type of Consult id Requesting Provider: LEXII REED Date/Time of Note DATE: 09/23/18 TIME: 16:19 Exam/Review of Systems Exam Vitals Vital Signs Date Temp Pulse Resp B/P (MAP) Pulse Ox O2 O2 Flow FiO2 Time Delivery Rate 09/23/18 98.1 74 18 144/69 95 Nasal 5.0 15:51 (94) Cannula 09/23/18 35 03:11 Intake and Output 09/22/18 09/22/18 09/23/18 1515:00 23:00 07:00 IntakeIntake Total 890 ml 250 ml OutputOutput Total 500 ml BalanceBalance 890 ml -250 ml Results Result Diagram: 09/23/18 0457 09/23/18 0457 Results 24hrs Laboratory Tests Test 09/22/18 17:08 09/22/18 22:11 09/23/18 04:57 09/23/18 07:50 Bedside Glucose 135 143 91 White Blood Count 6.5 Red Blood Count 3.12 L Hemoglobin 8.5 L Hematocrit 26.7 L Mean Corpuscular 85.6 Volume Mean Corpuscular 27.2 L Hemoglobin Mean Corpuscular 31.8 L Hemoglobin Concent Red Cell 13.3 Distribution Width Platelet Count 224 # Mean Platelet Volume 10.6 H Immature 0.900 H Granulocytes % Neutrophils % 63.0 Lymphocytes % 12.4 L Monocytes % 15.1 H Eosinophils % 8.1 H Basophils % 0.5 Nucleated Red Blood 0.0 Cells % Immature 0.060 H Granulocytes # Neutrophils # 4.1 Lymphocytes # 0.8 Monocytes # 1.0 H Eosinophils # 0.5 Basophils # 0.0 Nucleated Red Blood 0.0 Cells # Prothrombin Time 15.5 H Prothrombin Time 1.2 Ratio INR International 1.22 Normalized Ratio Activated 87.5 *H Partial Thromboplast Time Sodium Level 141 Potassium Level 4.2 Chloride Level 100 Carbon Dioxide Level 23 Anion Gap 18 H Blood Urea Nitrogen 103 H Creatinine 5.17 H Est Glomerular 12 L Filtrat Rate mL/min Glucose Level 117 # Calcium Level 8.7 Magnesium Level 3.7 H Total Bilirubin 0.4 Direct Bilirubin 0.00 Indirect Bilirubin 0.4 Aspartate Amino 30 Transf (AST/SGOT) Alanine 31 Aminotransferase (AL T/SGPT) Alkaline Phosphatase 89 Total Protein 6.6 Albumin 3.7 Globulin 2.90 Albumin/Globulin 1.27 Ratio Test 09/23/18 11:42 Bedside Glucose 76 Medications Medication Current Medications Lorazepam (Ativan) 0.5 mg Q8H PRN PO ANXIETY; Start 09/13/18 at 12:30 Ondansetron HCl (Zofran Inj) 4 mg Q6H PRN IV NAUSEA AND/OR VOMITING Last administered on 09/16/18at 21:16; Admin Dose 4 MG; Start 09/13/18 at 12:30 Nitroglycerin (Nitroglycerin (Sl Tab) 0.4 Mg) 1 tab Q5M PRN SL CHEST PAIN; Start 09/13/18 at 12:30 Acetaminophen (Tylenol Tab) 650 mg Q6H PRN PO PAIN LEVEL 1-3 OR FEVER Last administered on 09/19/18at 10:02; Admin Dose 650 MG; Start 09/13/18 at 12:30 Zolpidem Tartrate (Ambien) 5 mg QHS PRN PO INSOMNIA Last administered on 09/19/18at 22:47; Admin Dose 5 MG; Start 09/13/18 at 12:30 Apixaban (Eliquis) 2.5 mg BID PO Last administered on 09/23/18 08:16; Admin Dose 2.5 MG; Start 09/13/18 at 21:00 Atorvastatin Calcium (Lipitor) 80 mg QHS PO Last administered on 09/22/18 22:15; Admin Dose 80 MG; Start 09/13/18 at 21:00 Cholecalciferol (Vitamin D) 2,000 unit DAILY PO Last administered on 09/23/18 08:15; Admin Dose 2,000 UNIT; Start 09/14/18 at 09:00 EZETIMIBE (Zetia) 10 mg HS PO Last administered on 09/22/18 22:16; Admin Dose 10 MG; Start 09/13/18 at 21:00 Insulin Glargine (Lantus) 30 units QHS SC Last administered on 09/22/18 22:28; Admin Dose 30 UNITS; Start 09/13/18 at 21:00 Isosorbide Mononitrate (Imdur) 30 mg DAILY PO Last administered on 09/23/18 08:16; Admin Dose 30 MG; Start 09/14/18 at 09:00 Spironolactone (Aldactone) 25 mg DAILY PO Last administered on 09/17/18 08:31; Admin Dose 25 MG; Start 09/14/18 at 09:00; Status Hold Insulin Aspart (Novolog Insulin Pen) 10 unit WITH MEALS SC Last administered on 09/23/18 11:45; Admin Dose 10 UNIT; Start 09/13/18 at 18:00 Miscellaneous Information 1 ea NOTE XX ; Start 09/13/18 at 13:00 Glucose (Glutose) 15 gm Q15M PRN PO DECREASED GLUCOSE; Start 09/13/18 at 13:00 Glucose (Glutose) 22.5 gm Q15M PRN PO DECREASED GLUCOSE; Start 09/13/18 at 13:00 Dextrose (D50w Syringe) 25 ml Q15M PRN IV DECREASED GLUCOSE; Start 09/13/18 at 13:00 Dextrose (D50w Syringe) 50 ml Q15M PRN IV DECREASED GLUCOSE; Start 09/13/18 at 13:00 Glucagon (Glucagen) 1 mg Q15M PRN IM DECREASED GLUCOSE; Start 09/13/18 at 13:00 Glucose (Glutose) 15 gm Q15M PRN BUCCAL DECREASED GLUCOSE; Start 09/13/18 at 13:00 Epoetin Randolph (Epogen (Non Esrd/Non Oncology)) 6,000 units TuThSa@17 SC Last administered on 09/21/18 17:07; Admin Dose 6,000 UNITS; Start 09/14/18 at 17:00 Sevelamer Carbonate (Renvela) 800 mg WITH MEALS PO Last administered on 09/23/18 11:43; Admin Dose 800 MG; Start 09/14/18 at 08:00 Doxazosin Mesylate (Cardura) 2 mg HS PO Last administered on 09/22/18 22:15; Admin Dose 2 MG; Start 09/15/18 at 21:00 Hydralazine HCl (Apresoline) 10 mg Q6H PRN IV ELEVATED SYSTOLIC BP Last administered on 09/19/18 00:18; Admin Dose 10 MG; Start 09/16/18 at 11:00 Cefepime HCl 50 ml @ 100 mls/hr Q24H IVPB Last administered on 09/23/18 16:14; Admin Dose 100 MLS/HR; Start 09/16/18 at 16:00 Polyethylene Glycol (Miralax) 17 gm DAILY PO Last administered on 09/17/18 08:33; Admin Dose 17 GM; Start 09/16/18 at 19:00 Clindamycin HCl/ Dextrose 50 ml @ 50 mls/hr Q8 IVPB Last administered on 09/23/18 14:34; Admin Dose 50 MLS/HR; Start 09/18/18 at 15:30 Polyethylene Glycol (Miralax) 17 gm DAILY PRN PO constipation Last administered on 09/19/18 18:30; Admin Dose 17 GM; Start 09/19/18 at 16:30 Magnesium Hydroxide (Milk Of Mag) 30 ml BID PRN PO CONSTIPATION Last administered on 09/22/18 22:30; Admin Dose 30 ML; Start 09/19/18 at 23:00 Tramadol HCl (Ultram) 50 mg Q6H PRN PO MODERATE PAIN LEVEL 4-6; Start 09/20/18 at 16:30 Docusate Sodium (Colace) 100 mg BID PO Last administered on 09/23/18 08:15; Admin Dose 100 MG; Start 09/20/18 at 21:35 Fluticasone Propionate (Flonase 0.05% Nasal) 1 spray BID NASAL Last administered on 09/23/18 08:18; Admin Dose 1 SPRAY; Start 09/21/18 at 09:00 Hydralazine HCl (Apresoline) 100 mg TID PO Last administered on 09/23/18at 13:07; Admin Dose 100 MG; Start 09/21/18 at 13:00 Morphine Sulfate (morphine) 6 mg Q4H PRN PO SEVERE PAIN LEVEL 7-10 Last administered on 09/21/18 21:33; Admin Dose 6 MG; Start 09/21/18 at 14:00 Famotidine (Pepcid) 20 mg Q24H PO Last administered on 09/22/18at 22:15; Admin Dose 20 MG; Start 09/21/18 at 21:00 Diagnostic Test (Pha) (Accu-Chek) 1 ea 02 XX ; Start 09/23/18 at 02:00 Diagnostic Test (Pha) (Accu-Chek) 1 ea AC MEALS XX Last administered on 09/23/18at 11:43; Admin Dose 1 EA; Start 09/23/18 at 07:00 Nifedipine (Procardia Xl) 60 mg BID PO ; Start 09/23/18 at 21:00 YOLETTE RODRIGUEZ NP Sep 23, 2018 16:20
--- NOTE | 2018-09-23 17:21 | CONS ---
Assessment/Plan Assessment/Plan Assessment/Plan (Daily) 1.Acute kidney injury on CKD III due to hemodynamics from CHF - worsening 2. acute CHF exacerbation, acute on chronic, diastolic, with fluid overload and pulmonary congestion with anasarca 3. 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 H/o HTN 5. LE edema/anasarca 6. HL 7. Anemia of chronic kidney disease Plan: BUN/Cr still high 103/5.17, pt has LE edema, Still c/o SOB and acute back pain - will resume his bumex 2mg pO BID ( at home he was on 2mg po daily )- Losartan, Spironolactone has been on hold - s/p 2 U PRBC transfusion on 09/19/18- Hb 8.5- on epogen 6000 units SQ TTS for anemia Continue Renvela 800mg TID for hyperphosphatemia - monitor electrolytes and replace aggressively Renal US on previous visit- unremarkable, Kidney size R 12.0, left 11.2 cm, normal echogenicity on last visit Nifedipine 60mg BID , Coreg 6.25mg PO BID, Hydralazine 100mg PO TID if continues to have rising BUN/Cr , will discuss with pt about initiating HD Consultation Date/Type/Reason Admit Date/Time Sep 13, 2018 at 08:45 Initial Consult Date 09/13/18 Type of Consult NEPHROLOGY Requesting Provider: LEXII REED Date/Time of Note DATE: 09/23/18 TIME: 17:20 24 HR Interval Summary Free Text/Dictation BUN/Cr still high 103/5.17, pt has LE edema, Still c/o SOB and acute back pain Exam/Review of Systems Exam Vitals Vital Signs Date Temp Pulse Resp B/P (MAP) Pulse Ox O2 O2 Flow FiO2 Time Delivery Rate 09/23/18 72 16:01 09/23/18 98.1 18 144/69 95 Nasal 5.0 15:51 (94) Cannula 09/23/18 35 03:11 Intake and Output 09/22/18 09/22/18 09/23/18 1515:00 23:00 07:00 IntakeIntake Total 890 ml 250 ml OutputOutput Total 500 ml BalanceBalance 890 ml -250 ml Exam GEN: awake, alert, no acute distress Respiratory: Bibasilar rales, no wheezing Cardiovascular: regular rate and rhythm, nl pulses Gastrointestinal: soft, distended Musculoskeletal: muscle tone, muscle weakness, swelling Extremities: normal pulses,1-2+ LE pitting edema Neurological: 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, nl mental status, nl speech, nl strength Results Result Diagram: 09/23/18 0457 09/23/18 0457 Results 24hrs Laboratory Tests Test 09/22/18 22:11 09/23/18 04:57 09/23/18 07:50 09/23/18 11:42 Bedside Glucose 143 91 76 White Blood Count 6.5 Red Blood Count 3.12 L Hemoglobin 8.5 L Hematocrit 26.7 L Mean Corpuscular 85.6 Volume Mean Corpuscular 27.2 L Hemoglobin Mean Corpuscular 31.8 L Hemoglobin Concent Red Cell 13.3 Distribution Width Platelet Count 224 # Mean Platelet Volume 10.6 H Immature 0.900 H Granulocytes % Neutrophils % 63.0 Lymphocytes % 12.4 L Monocytes % 15.1 H Eosinophils % 8.1 H Basophils % 0.5 Nucleated Red Blood 0.0 Cells % Immature 0.060 H Granulocytes # Neutrophils # 4.1 Lymphocytes # 0.8 Monocytes # 1.0 H Eosinophils # 0.5 Basophils # 0.0 Nucleated Red Blood 0.0 Cells # Prothrombin Time 15.5 H Prothrombin Time 1.2 Ratio INR International 1.22 Normalized Ratio Activated 87.5 *H Partial Thromboplast Time Sodium Level 141 Potassium Level 4.2 Chloride Level 100 Carbon Dioxide Level 23 Anion Gap 18 H Blood Urea Nitrogen 103 H Creatinine 5.17 H Est Glomerular 12 L Filtrat Rate mL/min Glucose Level 117 # Calcium Level 8.7 Magnesium Level 3.7 H Total Bilirubin 0.4 Direct Bilirubin 0.00 Indirect Bilirubin 0.4 Aspartate Amino 30 Transf (AST/SGOT) Alanine 31 Aminotransferase (AL T/SGPT) Alkaline Phosphatase 89 Total Protein 6.6 Albumin 3.7 Globulin 2.90 Albumin/Globulin 1.27 Ratio Medications Medication Current Medications Lorazepam (Ativan) 0.5 mg Q8H PRN PO ANXIETY; Start 09/13/18 at 12:30 Ondansetron HCl (Zofran Inj) 4 mg Q6H PRN IV NAUSEA AND/OR VOMITING Last a dministered on 09/16/18at 21:16; Admin Dose 4 MG; Start 09/13/18 at 12:30 Nitroglycerin (Nitroglycerin (Sl Tab) 0.4 Mg) 1 tab Q5M PRN SL CHEST PAIN; Start 09/13/18 at 12:30 Acetaminophen (Tylenol Tab) 650 mg Q6H PRN PO PAIN LEVEL 1-3 OR FEVER Last administered on 09/19/18 10:02; Admin Dose 650 MG; Start 09/13/18 at 12:30 Zolpidem Tartrate (Ambien) 5 mg QHS PRN PO INSOMNIA Last administered on 22:47; Admin Dose 5 MG; Start 09/13/18 at 12:30 Apixaban (Eliquis) 2.5 mg BID PO Last administered on 09/23/18 08:16; Admin Dose 2.5 MG; Start 09/13/18 at 21:00 Atorvastatin Calcium (Lipitor) 80 mg QHS PO Last administered on 09/22/18 22:15; Admin Dose 80 MG; Start 09/13/18 at 21:00 Cholecalciferol (Vitamin D) 2,000 unit DAILY PO Last administered on 09/23/18 08:15; Admin Dose 2,000 UNIT; Start 09/14/18 at 09:00 EZETIMIBE (Zetia) 10 mg HS PO Last administered on 09/22/18 22:16; Admin Dose 10 MG; Start 09/13/18 at 21:00 Insulin Glargine (Lantus) 30 units QHS SC Last administered on 09/22/18 22:28; Admin Dose 30 UNITS; Start 09/13/18 at 21:00 Isosorbide Mononitrate (Imdur) 30 mg DAILY PO Last administered on 09/23/18 08:16; Admin Dose 30 MG; Start 09/14/18 at 09:00 Spironolactone (Aldactone) 25 mg DAILY PO Last administered on 09/17/18 08:31; Admin Dose 25 MG; Start 09/14/18 at 09:00; Status Hold Insulin Aspart (Novolog Insulin Pen) 10 unit WITH MEALS SC Last administered on 09/23/18 11:45; Admin Dose 10 UNIT; Start 09/13/18 at 18:00 Miscellaneous Information 1 ea NOTE XX ; Start 09/13/18 at 13:00 Glucose (Glutose) 15 gm Q15M PRN PO DECREASED GLUCOSE; Start 09/13/18 at 13:00 Glucose (Glutose) 22.5 gm Q15M PRN PO DECREASED GLUCOSE; Start 09/13/18 at 13:0 0 Dextrose (D50w Syringe) 25 ml Q15M PRN IV DECREASED GLUCOSE; Start 09/13/18 at 13:00 Dextrose (D50w Syringe) 50 ml Q15M PRN IV DECREASED GLUCOSE; Start 09/13/18 at 13:00 Glucagon (Glucagen) 1 mg Q15M PRN IM DECREASED GLUCOSE; Start 09/13/18 at 13:00 Glucose (Glutose) 15 gm Q15M PRN BUCCAL DECREASED GLUCOSE; Start 09/13/18 at 13:00 Epoetin Randolph (Epogen (Non Esrd/Non Oncology)) 6,000 units TuThSa@17 SC Last administered on 09/21/18 17:07; Admin Dose 6,000 UNITS; Start 09/14/18 at 17:00 Sevelamer Carbonate (Renvela) 800 mg WITH MEALS PO Last administered on 09/23/18at 11:43; Admin Dose 800 MG; Start 09/14/18 at 08:00 Doxazosin Mesylate (Cardura) 2 mg HS PO Last administered on 09/22/18 22:15; Admin Dose 2 MG; Start 09/15/18 at 21:00 Hydralazine HCl (Apresoline) 10 mg Q6H PRN IV ELEVATED SYSTOLIC BP Last administered on 09/19/18at 00:18; Admin Dose 10 MG; Start 09/16/18 at 11:00 Cefepime HCl 50 ml @ 100 mls/hr Q24H IVPB Last administered on 09/23/18at 16:14; Admin Dose 100 MLS/HR; Start 09/16/18 at 16:00 Polyethylene Glycol (Miralax) 17 gm DAILY PO Last administered on 09/17/18at 08:33; Admin Dose 17 GM; Start 09/16/18 at 19:00 Clindamycin HCl/ Dextrose 50 ml @ 50 mls/hr Q8 IVPB Last administered on 09/23/18at 14:34; Admin Dose 50 MLS/HR; Start 09/18/18 at 15:30 Polyethylene Glycol (Miralax) 17 gm DAILY PRN PO constipation Last administered on 09/19/18 18:30; Admin Dose 17 GM; Start 09/19/18 at 16:30 Magnesium Hydroxide (Milk Of Mag) 30 ml BID PRN PO CONSTIPATION Last administered on 09/22/18 22:30; Admin Dose 30 ML; Start 09/19/18 at 23:00 Tramadol HCl (Ultram) 50 mg Q6H PRN PO MODERATE PAIN LEVEL 4-6; Start 09/20/18 at 16:30 Docusate Sodium (Colace) 100 mg BID PO Last administered on 09/23/18 08:15; Admin Dose 100 MG; Start 09/20/18 at 21:35 Fluticasone Propionate (Flonase 0.05% Nasal) 1 spray BID NASAL Last administered on 09/23/18 08:18; Admin Dose 1 SPRAY; Start 09/21/18 at 09:00 Hydralazine HCl (Apresoline) 100 mg TID PO Last administered on 09/23/18 13:07; Admin Dose 100 MG; Start 09/21/18 at 13:00 Morphine Sulfate (morphine) 6 mg Q4H PRN PO SEVERE PAIN LEVEL 7-10 Last administered on 09/21/18 21:33; Admin Dose 6 MG; Start 09/21/18 at 14:00 Famotidine (Pepcid) 20 mg Q24H PO Last administered on 09/22/18 22:15; Admin Dose 20 MG; Start 09/21/18 at 21:00 Diagnostic Test (Pha) (Accu-Chek) 1 ea 02 XX ; Start 09/23/18 at 02:00 Diagnostic Test (Pha) (Accu-Chek) 1 ea AC MEALS XX Last administered on 09/23/18at 11:43; Admin Dose 1 EA; Start 09/23/18 at 07:00 Nifedipine (Procardia Xl) 60 mg BID PO ; Start 09/23/18 at 21:00 LOLIS CROWDER MD Sep 23, 2018 17:20
--- NOTE | 2018-09-23 19:25 | NUR ---
Pt is alert and oriented x 4. Ambulatory. Had Lt great toe amputation,healed, pt has bel hose also on bilat LE. Heplock but on ABX IV. Noted pt wheezing. Pt has gen edema. Denies pain at this time. Calls appropriately using the call light.
[2018-09-23] MEDS: ATORVASTATIN 80 MG TAB PO SCH (20:07)
[2018-09-23] MEDS: DOXAZOSIN 2 MG TAB PO SCH (20:07)
[2018-09-23] MEDS: EZETIMIBE 10 MG TAB PO SCH (20:07)
[2018-09-23] MEDS: NIFEdipine (XL) 60 MG TAB PO SCH (20:07)
[2018-09-23] MEDS: FAMOTIDINE 20 MG TAB PO SCH (20:08)
[2018-09-23] MEDS: INSULIN GLARGINE [LANTus] (100 UNITS/ML) SYG SC SCH (20:11)
--- NOTE | 2018-09-23 22:55 | NUR ---
Pt verbalizes that he hasn't seen Dr roy. Will make a follow up in the morning by endorsing it to the morning nurse. Pt is resting comfortably at this time.
[2018-09-24] VITALS (11 sets, daily range): BP systolic 128–174; BP diastolic 62–88; PULSE 69–82; RESP 18–20
--- NOTE | 2018-09-24 01:27 | NUR ---
Pt asleep at this time.
[2018-09-24] MEDS: ACCU-CHEK XX SCH ×5 (02:00→22:40)
--- NOTE | 2018-09-24 03:33 | NUR ---
Pt was c/o of chest congestion.On O2 via nasal cannula. Notified Dr Regan. When checked, pt asleep. As per Dr Regan, if pt wakes up and still complaining, do CXR stat. If continue sleeping, notify morning nurse and evaluate.
--- NOTE | 2018-09-24 04:29 | NUR ---
On going tx for MRSA of the blood but the result on 09/19/18was negative on prelim. No more isolation for now since it was negative. Notified charge nurse.
[2018-09-24] MEDS: CLINDAMYCIN 600 MG/D5W (PMX) 50 ML IVPB SCH ×3 (05:15→20:50)
--- NOTE | 2018-09-24 05:53 | NUR ---
Pt prefers not to have CXR now. Will endorse to morning nurse. Pt just wants to talk to Dr rojas. pt feels better right now.
[2018-09-24] MEDS: INSULIN ASPART [NOVOLOG] 3 ML PEN SC SCH ×3 (07:46→17:16)
[2018-09-24] MEDS: SEVELAMER CARBONATE 800 MG TABLET PO SCH ×3 (08:06→17:13)
[2018-09-24] MEDS: APIXABAN 5 MG TABLET PO SCH ×2 (08:06→20:44)
[2018-09-24] MEDS: NIFEdipine (XL) 60 MG TAB PO SCH ×2 (08:07→20:43)
[2018-09-24] MEDS: ISOSORBIDE MONONITRATE(SR)30 MG TAB PO SCH (08:07)
[2018-09-24] MEDS: CHOLECALCIFEROL 1,000 UNIT TAB PO SCH (08:07)
[2018-09-24] MEDS: POLYETHYLENE GLYCOL 17 GM PACKET PO SCH (08:08)
[2018-09-24] MEDS: DOCUSATE SODIUM 100 MG CAP PO SCH ×2 (08:08→20:43)
[2018-09-24] MEDS: FLUTICASONE 0.05% 16 GM NAS SPRAY NASAL SCH ×2 (08:09→20:51)
--- NOTE | 2018-09-24 08:19 | CONS ---
Assessment/Plan Assessment/Plan Assessment/Plan (Daily) 1.Acute kidney injury on CKD III due to hemodynamics from CHF - worsening 2. acute CHF exacerbation, acute on chronic, diastolic, with fluid overload and pulmonary congestion with anasarca 3. 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 H/o HTN 5. LE edema/anasarca 6. HL 7. Anemia of chronic kidney disease Plan: BUN/Cr slightly improved to 100/4.46, LE edema much better but still has flank edema, bumex 2mg pO BID ( at home he was on 2mg po daily )- Losartan, Spironolactone has been on hold - s/p 2 U PRBC transfusion on 09/19/18- Hb 8.5- on epogen 6000 units SQ TTS for anemia Continue Renvela 800mg TID for hyperphosphatemia - monitor electrolytes and replace aggressively Renal US on previous visit- unremarkable, Kidney size R 12.0, left 11.2 cm, normal echogenicity on last visit Nifedipine 60mg BID , Coreg 6.25mg PO BID, Hydralazine 100mg PO TID if continues to have rising BUN/Cr , will discuss with pt about initiating HD- today no acute indication of HD at this time will follow up Consultation Date/Type/Reason Admit Date/Time Sep 13, 2018 at 08:45 Initial Consult Date 09/13/18 Type of Consult NEPHROLOGY Requesting Provider: LEXII REED Date/Time of Note DATE: 09/24/18 TIME: 08:19 Exam/Review of Systems Exam Vitals Vital Signs Date Temp Pulse Resp B/P (MAP) Pulse Ox O2 O2 Flow FiO2 Time Delivery Rate 09/24/18 97.7 80 18 174/81 97 07:53 (112) 09/24/18 3.0 03:46 09/24/18 Nasal 02:55 Cannula 09/23/18 35 03:11 Intake and Output 09/23/18 09/23/18 09/24/18 1515:00 23:00 07:00 IntakeIntake Total 700 ml 400 ml OutputOutput Total 650 ml 450 ml BalanceBalance 50 ml -50 ml Results Result Diagram: 09/23/18 0457 09/24/18 0603 Results 24hrs Laboratory Tests Test 09/23/18 11:42 09/23/18 17:30 09/23/18 20:04 09/24/18 01:57 Bedside Glucose 76 105 116 128 Test 09/24/18 06:03 09/24/18 07:34 Sodium Level 140 Potassium Level 4.1 Chloride Level 103 Carbon Dioxide Level 24 Anion Gap 13 Blood Urea Nitrogen 100 H Creatinine 4.46 H Est Glomerular 14 L Filtrat Rate mL/min Glucose Level 92 Calcium Level 8.8 Bedside Glucose 89 Medications Medication Current Medications Lorazepam (Ativan) 0.5 mg Q8H PRN PO ANXIETY; Start 09/13/18 at 12:30 Ondansetron HCl (Zofran Inj) 4 mg Q6H PRN IV NAUSEA AND/OR VOMITING Last administered on 09/16/18 21:16; Admin Dose 4 MG; Start 09/13/18 at 12:30 Nitroglycerin (Nitroglycerin (Sl Tab) 0.4 Mg) 1 tab Q5M PRN SL CHEST PAIN; Start 09/13/18 at 12:30 Acetaminophen (Tylenol Tab) 650 mg Q6H PRN PO PAIN LEVEL 1-3 OR FEVER Last administered on 09/19/18 10:02; Admin Dose 650 MG; Start 09/13/18 at 12:30 Zolpidem Tartrate (Ambien) 5 mg QHS PRN PO INSOMNIA Last administered on 09/19/18 22:47; Admin Dose 5 MG; Start 09/13/18 at 12:30 Apixaban (Eliquis) 2.5 mg BID PO Last administered on 09/24/18 08:06; Admin Dose 2.5 MG; Start 09/13/18 at 21:00 Atorvastatin Calcium (Lipitor) 80 mg QHS PO Last administered on 09/23/18 20:07; Admin Dose 80 MG; Start 09/13/18 at 21:00 Cholecalciferol (Vitamin D) 2,000 unit DAILY PO Last administered on 09/24/18 08:07; Admin Dose 2,000 UNIT; Start 09/14/18 at 09:00 EZETIMIBE (Zetia) 10 mg HS PO Last administered on 09/23/18 20:07; Admin Dose 10 MG; Start 09/13/18 at 21:00 Insulin Glargine (Lantus) 30 units QHS SC Last administered on 09/23/18 20:11; Admin Dose 30 UNITS; Start 09/13/18 at 21:00 Isosorbide Mononitrate (Imdur) 30 mg DAILY PO Last administered on 09/24/18at 08:07; Admin Dose 30 MG; Start 09/14/18 at 09:00 Spironolactone (Aldactone) 25 mg DAILY PO Last administered on 09/17/18at 08:31; Admin Dose 25 MG; Start 09/14/18 at 09:00; Status Hold Insulin Aspart (Novolog Insulin Pen) 10 unit WITH MEALS SC Last administered on 09/24/18at 07:46; Admin Dose 10 UNIT; Start 09/13/18 at 18:00 Miscellaneous Information 1 ea NOTE XX ; Start 09/13/18 at 13:00 Glucose (Glutose) 15 gm Q15M PRN PO DECREASED GLUCOSE; Start 09/13/18 at 13:00 Glucose (Glutose) 22.5 gm Q15M PRN PO DECREASED GLUCOSE; Start 09/13/18 at 13:00 Dextrose (D50w Syringe) 25 ml Q15M PRN IV DECREASED GLUCOSE; Start 09/13/18 at 13:00 Dextrose (D50w Syringe) 50 ml Q15M PRN IV DECREASED GLUCOSE; Start 09/13/18 at 13:00 Glucagon (Glucagen) 1 mg Q15M PRN IM DECREASED GLUCOSE; Start 09/13/18 at 13:00 Glucose (Glutose) 15 gm Q15M PRN BUCCAL DECREASED GLUCOSE; Start 09/13/18 at 13:00 Epoetin Randolph (Epogen (Non Esrd/Non Oncology)) 6,000 units TuThSa@17 SC Last administered on 09/21/18at 17:07; Admin Dose 6,000 UNITS; Start 09/14/18 at 17:00 Sevelamer Carbonate (Renvela) 800 mg WITH MEALS PO Last administered on 09/24/18at 08:06; Admin Dose 800 MG; Start 09/14/18 at 08:00 Doxazosin Mesylate (Cardura) 2 mg HS PO Last administered on 09/23/18at 20:07; Admin Dose 2 MG; Start 09/15/18 at 21:00 Hydralazine HCl (Apresoline) 10 mg Q6H PRN IV ELEVATED SYSTOLIC BP Last administered on 09/19/18at 00:18; Admin Dose 10 MG; Start 09/16/18 at 11:00 Cefepime HCl 50 ml @ 100 mls/hr Q24H IVPB Last administered on 09/23/18 16:14; Admin Dose 100 MLS/HR; Start 09/16/18 at 16:00 Polyethylene Glycol (Miralax) 17 gm DAILY PO Last administered on 09/17/18 08:33; Admin Dose 17 GM; Start 09/16/18 at 19:00 Clindamycin HCl/ Dextrose 50 ml @ 50 mls/hr Q8 IVPB Last administered on 09/24/18 05:15; Admin Dose 50 MLS/HR; Start 09/18/18 at 15:30 Polyethylene Glycol (Miralax) 17 gm DAILY PRN PO constipation Last administered on 09/19/18 18:30; Admin Dose 17 GM; Start 09/19/18 at 16:30 Magnesium Hydroxide (Milk Of Mag) 30 ml BID PRN PO CONSTIPATION Last administered on 09/22/18 22:30; Admin Dose 30 ML; Start 09/19/18 at 23:00 Tramadol HCl (Ultram) 50 mg Q6H PRN PO MODERATE PAIN LEVEL 4-6; Start 09/20/18 at 16:30 Docusate Sodium (Colace) 100 mg BID PO Last administered on 09/23/18 08:15; Admin Dose 100 MG; Start 09/20/18 at 21:35 Fluticasone Propionate (Flonase 0.05% Nasal) 1 spray BID NASAL Last a dministered on 09/23/18 20:16; Admin Dose 1 SPRAY; Start 09/21/18 at 09:00 Hydralazine HCl (Apresoline) 100 mg TID PO Last administered on 09/24/18 08:07; Admin Dose 100 MG; Start 09/21/18 at 13:00 Morphine Sulfate (morphine) 6 mg Q4H PRN PO SEVERE PAIN LEVEL 7-10 Last administered on 09/21/18 21:33; Admin Dose 6 MG; Start 09/21/18 at 14:00 Famotidine (Pepcid) 20 mg Q24H PO Last administered on 09/23/18 20:08; Admin Dose 20 MG; Start 09/21/18 at 21:00 Diagnostic Test (Pha) (Accu-Chek) 1 02 XX ; Start 09/23/18 at 02:00 Diagnostic Test (Pha) (Accu-Chek) 1 ea AC MEALS XX Last administered on 09/24/18at 07:46; Admin Dose 1 EA; Start 09/23/18 at 07:00 Nifedipine (Procardia Xl) 60 mg BID PO Last administered on 09/24/18at 08:07; Admin Dose 60 MG; Start 09/23/18 at 21:00 LOLIS CROWDER MD Sep 24, 2018 08:19
--- NOTE | 2018-09-24 08:49 | CONS ---
Consult Date/Type/Reason Admit Date/Time Sep 13, 2018 at 08:45 Initial Consult Date 09/13/18 Requesting Provider: LEXII REED Date/Time of Note DATE: 09/24/18 TIME: 08:47 Subjective N acute events - in CHF now - stil refusing HD - defer to renal team. ROS: No fever, no chills, no nausea, no vomiting, no diarrhea/constipation No recent weight changes No chest pain, no PND, no orthopnea + SOB No dizziness, blurred vision No thirst, no heat or cold intolerance Objective Vitals Vital Signs Date Temp Pulse Resp B/P (MAP) Pulse Ox O2 O2 Flow FiO2 Time Delivery Rate 09/24/18 97.7 80 18 174/81 97 07:53 (112) 09/24/18 3.0 03:46 09/24/18 Nasal 02:55 Cannula 09/23/18 35 03:11 Intake and Output 09/23/18 09/23/18 09/24/18 1515:00 23:00 07:00 IntakeIntake Total 700 ml 400 ml OutputOutput Total 650 ml 450 ml BalanceBalance 50 ml -50 ml Exam General: WN/WD/NAD, AOx 3 HEENT: Unicetric/atraumatic/EOMI (follows commands) NECK: JVD elevated, no thyromegaly Lymph: no lymphadenopathy HEART: regular with no S3, II/ systolic murmur at apex LUNGS: Coarse sounds ABD: soft, NT, ND, +BS : Intact Neuro: non focal SKIN: chronic changes EXT: + edema Results/Medications Result Diagram: 09/23/18 0457 09/24/18 0603 Results 24 hrs Laboratory Tests Test 09/23/18 11:42 09/23/18 17:30 09/23/18 20:04 09/24/18 01:57 Bedside Glucose 76 105 116 128 Test 09/24/18 06:03 09/24/18 07:34 Sodium Level 140 Potassium Level 4.1 Chloride Level 103 Carbon Dioxide Level 24 Anion Gap 13 Blood Urea Nitrogen 100 H Creatinine 4.46 H Est Glomerular 14 L Filtrat Rate mL/min Glucose Level 92 Calcium Level 8.8 Bedside Glucose 89 Home Meds Active Scripts Levofloxacin* (Levaquin*) 250 Mg Tablet, 250 MG PO DAILY@06 for 2 Days, TAB Prov:MERARY SAHU MD 05/10/18 Losartan Potassium* (Cozaar*) 25 Mg Tablet, 25 MG PO DAILY, #30 TAB Prov:BREANA MORALES 05/09/18 Nifedipine* (Nifedipine ER*) 60 Mg Tablet.sa, 60 MG PO BID, #60 TAB.SA Prov:BREANA MORALES 05/09/18 Bumetanide* (Bumetanide*) 2 Mg Tablet, 2 MG PO BID, #180 TAB Prov:LOLIS PASCUAL MD 05/09/18 Reported Medications Hydralazine Hcl* (Hydralazine Hcl*) 100 Mg Tablet, 100 MG PO TID, #90 TAB 05/07/18 Potassium Chloride* (K-Dur*) 10 Meq Tab.prt.sr, 10 MEQ PO BID, TAB 05/06/18 Hydralazine Hcl* (Hydralazine Hcl*) 50 Mg Tab, 50 MG PO Q8 PRN for ELEVATED BLOOD PRESSURE, #90 TAB 05/06/18 Ezetimibe* (Zetia*) 10 Mg Tablet, 10 MG PO HS, TAB 05/06/18 Carvedilol* (Carvedilol*) 3.125 Mg Tablet, 3.125 MG PO BID, #60 TAB 05/06/18 Apixaban* (Eliquis*) 5 Mg Tablet, 5 MG PO BID, TAB 05/06/18 Isosorbide Mononitrate* (Isosorbide Mononitrate*) 30 Mg Tab.er.24h, 30 MG PO DAILY, TAB 04/16/18 Spironolactone* (Aldactone*) 25 Mg Tablet, 25 MG PO DAILY, #30 TAB 04/16/18 Cholecalciferol* (Vitamin D3*) 1,000 Unit Tablet, 2000 UNIT PO DAILY, TAB 04/16/18 Insulin Lispro (Humalog Kwikpen U-100) 100 Unit/1 Ml Insuln.pen, 10 UNIT SQ WITH MEALS, EA 04/16/18 Insulin Glargine* (Lantus*) 100 Unit/Ml Soln, 30 UNIT SC QHS, #1 VIAL 02/28/18 Atorvastatin* (Atorvastatin*) 80 Mg Tablet, 80 MG PO QHS, #30 TAB 02/07/18 Medications Current Medications Lorazepam (Ativan) 0.5 mg Q8H PRN PO ANXIETY; Start 09/13/18 at 12:30 Ondansetron HCl (Zofran Inj) 4 mg Q6H PRN IV NAUSEA AND/OR VOMITING Last administered on 09/16/18 21:16; Admin Dose 4 MG; Start 09/13/18 at 12:30 Nitroglycerin (Nitroglycerin (Sl Tab) 0.4 Mg) 1 tab Q5M PRN SL CHEST PAIN; Start 09/13/18 at 12:30 Acetaminophen (Tylenol Tab) 650 mg Q6H PRN PO PAIN LEVEL 1-3 OR FEVER Last administered on 09/19/18 10:02; Admin Dose 650 MG; Start 09/13/18 at 12:30 Zolpidem Tartrate (Ambien) 5 mg QHS PRN PO INSOMNIA Last administered on 09/19/18 22:47; Admin Dose 5 MG; Start 09/13/18 at 12:30 Apixaban (Eliquis) 2.5 mg BID PO Last administered on 09/24/18 08:06; Admin Dose 2.5 MG; Start 09/13/18 at 21:00 Atorvastatin Calcium (Lipitor) 80 mg QHS PO Last administered on 09/23/18 20:07; Admin Dose 80 MG; Start 09/13/18 at 21:00 Cholecalciferol (Vitamin D) 2,000 unit DAILY PO Last administered on 09/24/18 08:07; Admin Dose 2,000 UNIT; Start 09/14/18 at 09:00 EZETIMIBE (Zetia) 10 mg HS PO Last administered on 09/23/18 20:07; Admin Dose 10 MG; Start 09/13/18 at 21:00 Insulin Glargine (Lantus) 30 units QHS SC Last administered on 09/23/18 20:11; Admin Dose 30 UNITS; Start 09/13/18 at 21:00 Isosorbide Mononitrate (Imdur) 30 mg DAILY PO Last administered on 09/24/18 08:07; Admin Dose 30 MG; Start 09/14/18 at 09:00 Spironolactone (Aldactone) 25 mg DAILY PO Last administered on 09/17/18 08:31; Admin Dose 25 MG; Start 09/14/18 at 09:00; Status Hold Insulin Aspart (Novolog Insulin Pen) 10 unit WITH MEALS SC Last administered on 09/24/18at 07:46; Admin Dose 10 UNIT; Start 09/13/18 at 18:00 Miscellaneous Information 1 ea NOTE XX ; Start 09/13/18 at 13:00 Glucose (Glutose) 15 gm Q15M PRN PO DECREASED GLUCOSE; Start 09/13/18 at 13:00 Glucose (Glutose) 22.5 gm Q15M PRN PO DECREASED GLUCOSE; Start 09/13/18 at 13:00 Dextrose (D50w Syringe) 25 ml Q15M PRN IV DECREASED GLUCOSE; Start 09/13/18 at 13:00 Dextrose (D50w Syringe) 50 ml Q15M PRN IV DECREASED GLUCOSE; Start 09/13/18 at 13:00 Glucagon (Glucagen) 1 mg Q15M PRN IM DECREASED GLUCOSE; Start 09/13/18 at 13:00 Glucose (Glutose) 15 gm Q15M PRN BUCCAL DECREASED GLUCOSE; Start 09/13/18 at 13:00 Epoetin Randolph (Epogen (Non Esrd/Non Oncology)) 6,000 units TuThSa@17 SC Last administered on 09/21/18at 17:07; Admin Dose 6,000 UNITS; Start 09/14/18 at 17:00 Sevelamer Carbonate (Renvela) 800 mg WITH MEALS PO Last administered on 09/24/18at 08:06; Admin Dose 800 MG; Start 09/14/18 at 08:00 Doxazosin Mesylate (Cardura) 2 mg HS PO Last administered on 09/23/18at 20:07; Admin Dose 2 MG; Start 09/15/18 at 21:00 Hydralazine HCl (Apresoline) 10 mg Q6H PRN IV ELEVATED SYSTOLIC BP Last administered on 09/19/18at 00:18; Admin Dose 10 MG; Start 09/16/18 at 11:00 Cefepime HCl 50 ml @ 100 mls/hr Q24H IVPB Last administered on 09/23/18at 16:14; Admin Dose 100 MLS/HR; Start 09/16/18 at 16:00 Polyethylene Glycol (Miralax) 17 gm DAILY PO Last administered on 09/17/18at 08:33; Admin Dose 17 GM; Start 09/16/18 at 19:00 Clindamycin HCl/ Dextrose 50 ml @ 50 mls/hr Q8 IVPB Last administered on 09/24/18 05:15; Admin Dose 50 MLS/HR; Start 09/18/18 at 15:30 Polyethylene Glycol (Miralax) 17 gm DAILY PRN PO constipation Last administered on 09/19/18 18:30; Admin Dose 17 GM; Start 09/19/18 at 16:30 Magnesium Hydroxide (Milk Of Mag) 30 ml BID PRN PO CONSTIPATION Last administered on 09/22/18 22:30; Admin Dose 30 ML; Start 09/19/18 at 23:00 Tramadol HCl (Ultram) 50 mg Q6H PRN PO MODERATE PAIN LEVEL 4-6; Start 09/20/18 at 16:30 Docusate Sodium (Colace) 100 mg BID PO Last administered on 09/23/18 08:15; Admin Dose 100 MG; Start 09/20/18 at 21:35 Fluticasone Propionate (Flonase 0.05% Nasal) 1 spray BID NASAL Last administered on 09/23/18 20:16; Admin Dose 1 SPRAY; Start 09/21/18 at 09:00 Hydralazine HCl (Apresoline) 100 mg TID PO Last administered on 09/24/18 08:07; Admin Dose 100 MG; Start 09/21/18 at 13:00 Morphine Sulfate (morphine) 6 mg Q4H PRN PO SEVERE PAIN LEVEL 7-10 Last administered on 09/21/18 21:33; Admin Dose 6 MG; Start 09/21/18 at 14:00 Famotidine (Pepcid) 20 mg Q24H PO Last administered on 09/23/18 20:08; Admin Dose 20 MG; Start 09/21/18 at 21:00 Diagnostic Test (Pha) (Accu-Chek) 1 ea 02 XX ; Start 09/23/18 at 02:00 Diagnostic Test (Pha) (Accu-Chek) 1 ea AC MEALS XX Last administered on 08/28 07:46; Admin Dose 1 EA; Start 09/23/18 at 07:00 Nifedipine (Procardia Xl) 60 mg BID PO Last administered on 09/24/18 08:07; Admin Dose 60 MG; Start 09/23/18 at 21:00 Assessment/Plan Hospital Course (Demo Recall) 1.Bacteremia-staph aureus. s/p JAVIER 09/08 with no definite findings of vegetations - on anti-Bx now - better now, no fevers. 2.PAF - now in sinus - rate well controlled - in sinus now 3.CHF - acute on chronic with ARF - plan for renal team to follow - still with significant fluid overload - not able to takewater off - pt refuses HD 4.Renal failure - Dr. Pascual follows - defer to renal 5. HTN - con't to adjust Rx concurrently with renal team. DELIA BILLY MD Sep 24, 2018 08:49
--- NOTE | 2018-09-24 10:06 | CONS ---
Assessment/Plan Assessment/Plan Hospital Course (Demo Recall) All noted, no acute events, no fevers Microbiology: Blood culture on admission grew MRSA, repeat blood cultures since September 19 negative Antimicrobials: Cefepime, clindamycin Physical examination: This is a morbidly obese well-developed middle-aged man who is alert in no distress. Head atraumatic normocephalic sclera nonicteric neck is obese chest rise symmetrical breath sounds diminished bases heart: S1-S2 abdomen soft bowel sounds present extremities without cyanosis Assessment: 1. Sepsis on admission 2. MRSA bacteremia, likely pulmonary source 3. Pneumonia, possible pleural effusion 4. Acute renal failure on chronic kidney disease 5. Morbid obesity 6. Diabetes 7. Likely obstructive sleep apnea and obesity hypoventilation syndrome, on nocturnal BiPAP Plan: Clinically unchanged, repeat blood cultures negative. Lumbar spine MRI was nondiagnostic secondary to motion artifact, WBC labeled nuclear scan revealed no evidence of infection, continue antibiotics until October 04, renal rec-s noted, may need HD Consultation Date/Type/Reason Admit Date/Time Sep 13, 2018 at 08:45 Initial Consult Date 09/13/18 Type of Consult id Requesting Provider: LEXII REED Date/Time of Note DATE: 09/24/18 TIME: 10:05 Exam/Review of Systems Exam Vitals Vital Signs Date Temp Pulse Resp B/P (MAP) Pulse Ox O2 O2 Flow FiO2 Time Delivery Rate 09/24/18 82 08:59 09/24/18 Nasal 2.0 08:05 Cannula 09/24/18 97.7 18 174/81 97 07:53 (112) 09/23/18 35 03:11 Intake and Output 09/23/18 09/23/18 09/24/18 1515:00 23:00 07:00 IntakeIntake Total 700 ml 400 ml OutputOutput Total 650 ml 450 ml BalanceBalance 50 ml -50 ml Results Result Diagram: 09/23/18 0457 09/24/18 0603 Results 24hrs Laboratory Tests Test 09/23/18 11:42 09/23/18 17:30 09/23/18 20:04 09/24/18 01:57 Bedside Glucose 76 105 116 128 Test 09/24/18 06:03 09/24/18 07:34 Sodium Level 140 Potassium Level 4.1 Chloride Level 103 Carbon Dioxide Level 24 Anion Gap 13 Blood Urea Nitrogen 100 H Creatinine 4.46 H Est Glomerular 14 L Filtrat Rate mL/min Glucose Level 92 Calcium Level 8.8 Bedside Glucose 89 Medications Medication Current Medications Lorazepam (Ativan) 0.5 mg Q8H PRN PO ANXIETY; Start 09/13/18 at 12:30 Ondansetron HCl (Zofran Inj) 4 mg Q6H PRN IV NAUSEA AND/OR VOMITING Last administered on 09/16/18 21:16; Admin Dose 4 MG; Start 09/13/18 at 12:30 Nitroglycerin (Nitroglycerin (Sl Tab) 0.4 Mg) 1 tab Q5M PRN SL CHEST PAIN; Start 09/13/18 at 12:30 Acetaminophen (Tylenol Tab) 650 mg Q6H PRN PO PAIN LEVEL 1-3 OR FEVER Last administered on 09/19/18 10:02; Admin Dose 650 MG; Start 09/13/18 at 12:30 Zolpidem Tartrate (Ambien) 5 mg QHS PRN PO INSOMNIA Last administered on 09/19/18 22:47; Admin Dose 5 MG; Start 09/13/18 at 12:30 Apixaban (Eliquis) 2.5 mg BID PO Last administered on 09/24/18 08:06; Admin Dose 2.5 MG; Start 09/13/18 at 21:00 Atorvastatin Calcium (Lipitor) 80 mg QHS PO Last administered on 09/23/18 20:07; Admin Dose 80 MG; Start 09/13/18 at 21:00 Cholecalciferol (Vitamin D) 2,000 unit DAILY PO Last administered on 09/24/18 08:07; Admin Dose 2,000 UNIT; Start 09/14/18 at 09:00 EZETIMIBE (Zetia) 10 mg HS PO Last administered on 09/23/18 20:07; Admin Dose 10 MG; Start 09/13/18 at 21:00 Insulin Glargine (Lantus) 30 units QHS SC Last administered on 09/23/18 20:11; Admin Dose 30 UNITS; Start 09/13/18 at 21:00 Isosorbide Mononitrate (Imdur) 30 mg DAILY PO Last administered on 09/24/18 08:07; Admin Dose 30 MG; Start 09/14/18 at 09:00 Spironolactone (Aldactone) 25 mg DAILY PO Last administered on 09/17/18at 08:31; Admin Dose 25 MG; Start 09/14/18 at 09:00; Status Hold Insulin Aspart (Novolog Insulin Pen) 10 unit WITH MEALS SC Last administered on 09/24/18at 07:46; Admin Dose 10 UNIT; Start 09/13/18 at 18:00 Miscellaneous Information 1 ea NOTE XX ; Start 09/13/18 at 13:00 Glucose (Glutose) 15 gm Q15M PRN PO DECREASED GLUCOSE; Start 09/13/18 at 13:00 Glucose (Glutose) 22.5 gm Q15M PRN PO DECREASED GLUCOSE; Start 09/13/18 at 13:00 Dextrose (D50w Syringe) 25 ml Q15M PRN IV DECREASED GLUCOSE; Start 09/13/18 at 13:00 Dextrose (D50w Syringe) 50 ml Q15M PRN IV DECREASED GLUCOSE; Start 09/13/18 at 13:00 Glucagon (Glucagen) 1 mg Q15M PRN IM DECREASED GLUCOSE; Start 09/13/18 at 13:00 Glucose (Glutose) 15 gm Q15M PRN BUCCAL DECREASED GLUCOSE; Start 09/13/18 at 13:00 Epoetin Rnadolph (Epogen (Non Esrd/Non Oncology)) 6,000 units TuThSa@17 SC Last administered on 09/21/18at 17:07; Admin Dose 6,000 UNITS; Start 09/14/18 at 17:00 Sevelamer Carbonate (Renvela) 800 mg WITH MEALS PO Last administered on 09/24/18 08:06; Admin Dose 800 MG; Start 09/14/18 at 08:00 Doxazosin Mesylate (Cardura) 2 mg HS PO Last administered on 09/23/18at 20:07; Admin Dose 2 MG; Start 09/15/18 at 21:00 Hydralazine HCl (Apresoline) 10 mg Q6H PRN IV ELEVATED SYSTOLIC BP Last administered on 09/19/18at 00:18; Admin Dose 10 MG; Start 09/16/18 at 11:00 Cefepime HCl 50 ml @ 100 mls/hr Q24H IVPB Last administered on 09/23/18at 16:14; Admin Dose 100 MLS/HR; Start 09/16/18 at 16:00 Polyethylene Glycol (Miralax) 17 gm DAILY PO Last administered on 09/17/18 08:33; Admin Dose 17 GM; Start 09/16/18 at 19:00 Clindamycin HCl/ Dextrose 50 ml @ 50 mls/hr Q8 IVPB Last administered on 09/24/18 05:15; Admin Dose 50 MLS/HR; Start 09/18/18 at 15:30 Polyethylene Glycol (Miralax) 17 gm DAILY PRN PO constipation Last administered on 09/19/18 18:30; Admin Dose 17 GM; Start 09/19/18 at 16:30 Magnesium Hydroxide (Milk Of Mag) 30 ml BID PRN PO CONSTIPATION Last administered on 09/22/18 22:30; Admin Dose 30 ML; Start 09/19/18 at 23:00 Tramadol HCl (Ultram) 50 mg Q6H PRN PO MODERATE PAIN LEVEL 4-6; Start 09/20/18 at 16:30 Docusate Sodium (Colace) 100 mg BID PO Last administered on 09/23/18 08:15; Admin Dose 100 MG; Start 09/20/18 at 21:35 Fluticasone Propionate (Flonase 0.05% Nasal) 1 spray BID NASAL Last administered on 09/23/18 20:16; Admin Dose 1 SPRAY; Start 09/21/18 at 09:00 Hydralazine HCl (Apresoline) 100 mg TID PO Last administered on 09/24/18 08:07; Admin Dose 100 MG; Start 09/21/18 at 13:00 Morphine Sulfate (morphine) 6 mg Q4H PRN PO SEVERE PAIN LEVEL 7-10 Last administered on 09/21/18 21:33; Admin Dose 6 MG; Start 09/21/18 at 14:00 Famotidine (Pepcid) 20 mg Q24H PO Last administered on 09/23/18 20:08; Admin Dose 20 MG; Start 09/21/18 at 21:00 Diagnostic Test (Pha) (Accu-Chek) 1 ea 02 XX ; Start 09/23/18 at 02:00 Diagnostic Test (Pha) (Accu-Chek) 1 ea AC MEALS XX Last administered on 09/24/18 07:46; Admin Dose 1 EA; Start 09/23/18 at 07:00 Nifedipine (Procardia Xl) 60 mg BID PO Last administered on 09/24/18at 08:07; Admin Dose 60 MG; Start 09/23/18 at 21:00 YOLETTE RODRIGUEZ NP Sep 24, 2018 10:06
--- NOTE | 2018-09-24 11:51 | NUR ---
[facility] UPDATE NOTES: Working on arranging home IV atbx infusion and HH. Referred case to Renée PEDRO from [facility] ([facility]) [phone] ext [phone] and faxed order/clinicals to [phone] awaiting for service delegation. Will cont to followup as needed. Khang MURILLO [phone]
[2018-09-24] MEDS: hydrALAzine 20 MG INJ IV PRN ×2 (12:17→23:44)
[2018-09-24] MEDS: BUMETANIDE 1 MG TAB PO SCH ×2 (13:19→17:13)
--- NOTE | 2018-09-24 15:45 | PN ---
Date/Time of Note Date/Time of Note DATE: 09/24/18 TIME: 15:26 Assessment/Plan VTE Prophylaxis Risk score (from Ns)>0 risk: 4 SCD applied (from Ns): Yes Pharmacological prophylaxis: NA/contraindicated Pharm contraindication: low risk/ambulating Lines/Catheters IV [facility]from [facility] Saline Lock Urinary Cath still in place: No Assessment/Plan Hospital Course 43 yo male with CKD IV, DHF, DMII presents with MARIA DEL CARMEN and diastolic CHF, MRSA bacteremia 1. CKD with MARIA DEL CARMEN, volume overload -Resume diuretics today -Patient does not want dialysis -Renal following 2. Hypertension - controlled 3. MRSA bacteremia - Vanco x 2 weeks from 09/19. Unclear source. Tagged WBC scan is negative -Repeat cultures now negative 4. DMII: - basal bolus insulin Discharge when euvolemic and on IV abx x 4 weeks Prophylaxis: Ambulation DC planning: Continue to monitor renal function, restart diuretics today, patient will need home health for IV antibiotics Result Diagram: 09/23/18 0457 09/24/18 0603 Results 24hrs Laboratory Tests Test 09/23/18 17:30 09/23/18 20:04 09/24/18 01:57 09/24/18 06:03 Bedside Glucose 105 116 128 Sodium Level 140 Potassium Level 4.1 Chloride Level 103 Carbon Dioxide Level 24 Anion Gap 13 Blood Urea Nitrogen 100 H Creatinine 4.46 H Est Glomerular 14 L Filtrat Rate mL/min Glucose Level 92 Calcium Level 8.8 Test 09/24/18 07:34 09/24/18 12:10 Bedside Glucose 89 112 Subjective 24 Hr Interval Summary Constitutional: no complaints Exam/Review of Systems Exam Vitals Vital Signs Date Temp Pulse Resp B/P (MAP) Pulse Ox O2 O2 Flow FiO2 Time Delivery Rate 09/24/18 98.3 80 19 128/62 95 Nasal 15:05 (84) Cannula 09/24/18 2.0 08:05 09/23/18 35 03:11 Intake and Output 09/23/18 09/23/18 09/24/18 1515:00 23:00 07:00 IntakeIntake Total 700 ml 400 ml OutputOutput Total 650 ml 450 ml BalanceBalance 50 ml -50 ml Constitutional: alert, oriented Respiratory: clear to auscultation Cardiovascular: regular rate and rhythm Gastrointestinal: soft; No distended Musculoskeletal: nl extremities to inspection Results Results 24hrs Laboratory Tests Test 09/23/18 17:30 09/23/18 20:04 09/24/18 01:57 09/24/18 06:03 Bedside Glucose 105 116 128 Sodium Level 140 Potassium Level 4.1 Chloride Level 103 Carbon Dioxide Level 24 Anion Gap 13 Blood Urea Nitrogen 100 H Creatinine 4.46 H Est Glomerular 14 L Filtrat Rate mL/min Glucose Level 92 Calcium Level 8.8 Test 09/24/18 07:34 09/24/18 12:10 Bedside Glucose 89 112 Medications Medication Current Medications Lorazepam (Ativan) 0.5 mg Q8H PRN PO ANXIETY; Start 09/13/18 at 12:30 Ondansetron HCl (Zofran Inj) 4 mg Q6H PRN IV NAUSEA AND/OR VOMITING Last administered on 09/16/18 21:16; Admin Dose 4 MG; Start 09/13/18 at 12:30 Nitroglycerin (Nitroglycerin (Sl Tab) 0.4 Mg) 1 tab Q5M PRN SL CHEST PAIN; Start 09/13/18 at 12:30 Acetaminophen (Tylenol Tab) 650 mg Q6H PRN PO PAIN LEVEL 1-3 OR FEVER Last administered on 09/19/18 10:02; Admin Dose 650 MG; Start 09/13/18 at 12:30 Zolpidem Tartrate (Ambien) 5 mg QHS PRN PO INSOMNIA Last administered on 09/19/18 22:47; Admin Dose 5 MG; Start 09/13/18 at 12:30 Apixaban (Eliquis) 2.5 mg BID PO Last administered on 09/24/18 08:06; Admin Dose 2.5 MG; Start 09/13/18 at 21:00 Atorvastatin Calcium (Lipitor) 80 mg QHS PO Last administered on 09/23/18 20:07; Admin Dose 80 MG; Start 09/13/18 at 21:00 Cholecalciferol (Vitamin D) 2,000 unit DAILY PO Last administered on 09/24/18 08:07; Admin Dose 2,000 UNIT; Start 09/14/18 at 09:00 EZETIMIBE (Zetia) 10 mg HS PO Last administered on 09/23/18 20:07; Admin Dose 10 MG; Start 09/13/18 at 21:00 Insulin Glargine (Lantus) 30 units QHS SC Last administered on 09/23/18 20:11; Admin Dose 30 UNITS; Start 09/13/18 at 21:00 Isosorbide Mononitrate (Imdur) 30 mg DAILY PO Last administered on 09/24/18 08:07; Admin Dose 30 MG; Start 09/14/18 at 09:00 Spironolactone (Aldactone) 25 mg DAILY PO Last administered on 09/17/18 08:31; Admin Dose 25 MG; Start 09/14/18 at 09:00; Status Hold Insulin Aspart (Novolog Insulin Pen) 10 unit WITH MEALS SC Last administered on 09/24/18 12:22; Admin Dose 10 UNIT; Start 09/13/18 at 18:00 Miscellaneous Information 1 ea NOTE XX ; Start 09/13/18 at 13:00 Glucose (Glutose) 15 gm Q15M PRN PO DECREASED GLUCOSE; Start 09/13/18 at 13:00 Glucose (Glutose) 22.5 gm Q15M PRN PO DECREASED GLUCOSE; Start 09/13/18 at 13:00 Dextrose (D50w Syringe) 25 ml Q15M PRN IV DECREASED GLUCOSE; Start 09/13/18 at 13:00 Dextrose (D50w Syringe) 50 ml Q15M PRN IV DECREASED GLUCOSE; Start 09/13/18 at 13:00 Glucagon (Glucagen) 1 mg Q15M PRN IM DECREASED GLUCOSE; Start 09/13/18 at 13:00 Glucose (Glutose) 15 gm Q15M PRN BUCCAL DECREASED GLUCOSE; Start 09/13/18 at 13 :00 Epoetin Randolph (Epogen (Non Esrd/Non Oncology)) 6,000 units TuThSa@17 SC Last administered on 09/21/18at 17:07; Admin Dose 6,000 UNITS; Start 09/14/18 at 17:00 Sevelamer Carbonate (Renvela) 800 mg WITH MEALS PO Last administered on 09/24/18 12:13; Admin Dose 800 MG; Start 09/14/18 at 08:00 Doxazosin Mesylate (Cardura) 2 mg HS PO Last administered on 09/23/18 20:07; Admin Dose 2 MG; Start 09/15/18 at 21:00 Hydralazine HCl (Apresoline) 10 mg Q6H PRN IV ELEVATED SYSTOLIC BP Last administered on 09/24/18 12:17; Admin Dose 10 MG; Start 09/16/18 at 11:00 Cefepime HCl 50 ml @ 100 mls/hr Q24H IVPB Last administered on 09/23/18 16:14; Admin Dose 100 MLS/HR; Start 09/16/18 at 16:00 Polyethylene Glycol (Miralax) 17 gm DAILY PO Last administered on 09/17/18 08:33; Admin Dose 17 GM; Start 09/16/18 at 19:00 Clindamycin HCl/ Dextrose 50 ml @ 50 mls/hr Q8 IVPB Last administered on 09/24/18 13:20; Admin Dose 50 MLS/HR; Start 09/18/18 at 15:30 Polyethylene Glycol (Miralax) 17 gm DAILY PRN PO constipation Last administered on 09/19/18 18:30; Admin Dose 17 GM; Start 09/19/18 at 16:30 Magnesium Hydroxide (Milk Of Mag) 30 ml BID PRN PO CONSTIPATION Last administered on 09/22/18 22:30; Admin Dose 30 ML; Start 09/19/18 at 23:00 Tramadol HCl (Ultram) 50 mg Q6H PRN PO MODERATE PAIN LEVEL 4-6; Start 09/20/18 at 16:30 Docusate Sodium (Colace) 100 mg BID PO Last administered on 09/23/18 08:15; Admin Dose 100 MG; Start 09/20/18 at 21:35 Fluticasone Propionate (Flonase 0.05% Nasal) 1 spray BID NASAL Last administered on 09/23/18 20:16; Admin Dose 1 SPRAY; Start 09/21/18 at 09:00 Hydralazine HCl (Apresoline) 100 mg TID PO Last administered on 09/24/18 13:19; Admin Dose 100 MG; Start 09/21/18 at 13:00 Morphine Sulfate (morphine) 6 mg Q4H PRN PO SEVERE PAIN LEVEL 7-10 Last ad ministered on 09/21/18 21:33; Admin Dose 6 MG; Start 09/21/18 at 14:00 Famotidine (Pepcid) 20 mg Q24H PO Last administered on 09/23/18 20:08; Admin Dose 20 MG; Start 09/21/18 at 21:00 Diagnostic Test (Pha) (Accu-Chek) 1 ea 02 XX ; Start 09/23/18 at 02:00 Diagnostic Test (Pha) (Accu-Chek) 1 ea AC MEALS XX Last administered on 09/24/18at 12:14; Admin Dose 1 EA; Start 09/23/18 at 07:00 Nifedipine (Procardia Xl) 60 mg BID PO Last administered on 09/24/18at 08:07; Admin Dose 60 MG; Start 09/23/18 at 21:00 Bumetanide (Bumex) 2 mg BID DIURETICS PO Last administered on 09/24/18at 13:19; Admin Dose 2 MG; Start 09/24/18 at 11:30 DAPHNE GALAN Sep 24, 2018 15:36
[2018-09-24] MEDS: CEFEPIME 1GM/50 ML (PMX) 50 ML IVPB SCH (16:23)
[2018-09-24] MEDS: EPOETIN 3000 UNITS/ML (NON ESRD/NON ONCOLOGY) SC SCH (16:26)
--- NOTE | 2018-09-24 18:42 | NUR ---
EOSS:Pt is stable, VS are WNL. Blood sugar is controlled. All need are attended. 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
--- NOTE | 2018-09-24 19:20 | NUR ---
Pt is awake, alert and ambulatory. In good spirits. Able to talk with Dr rojas about his plan of care. Pt denies pain. Pt on 2L of O2 via nasal cannula. All needs attended. Call light within reach.
[2018-09-24] MEDS: FAMOTIDINE 20 MG TAB PO SCH (20:43)
[2018-09-24] MEDS: EZETIMIBE 10 MG TAB PO SCH (20:43)
[2018-09-24] MEDS: ATORVASTATIN 80 MG TAB PO SCH (20:43)
[2018-09-24] MEDS: INSULIN GLARGINE [LANTus] (100 UNITS/ML) SYG SC SCH (20:47)
[2018-09-24] MEDS: DOXAZOSIN 2 MG TAB PO SCH (20:50)
[2018-09-25] VITALS (13 sets, daily range): BP systolic 146–171; BP diastolic 69–79; PULSE 71–87; RESP 18–20
[2018-09-25] MEDS: CLINDAMYCIN 600 MG/D5W (PMX) 50 ML IVPB SCH ×3 (04:40→20:22)
[2018-09-25] MEDS: BUMETANIDE 1 MG TAB PO SCH ×2 (04:42→17:00)
--- NOTE | 2018-09-25 05:27 | NUR ---
Pt is now awake. Slept better last noc. On going IV ABX. On 2L of o2 via nasal cannula. All needs attended. Calls appropriately using the call light.
[2018-09-25] MEDS: ACCU-CHEK XX SCH ×3 (07:00→17:06)
[2018-09-25] MEDS: APIXABAN 5 MG TABLET PO SCH ×2 (08:13→20:20)
[2018-09-25] MEDS: SEVELAMER CARBONATE 800 MG TABLET PO SCH ×3 (08:15→17:00)
[2018-09-25] MEDS: CHOLECALCIFEROL 1,000 UNIT TAB PO SCH (08:15)
[2018-09-25] MEDS: FLUTICASONE 0.05% 16 GM NAS SPRAY NASAL SCH ×2 (08:16→20:34)
[2018-09-25] MEDS: DOCUSATE SODIUM 100 MG CAP PO SCH ×2 (08:16→20:20)
[2018-09-25] MEDS: POLYETHYLENE GLYCOL 17 GM PACKET PO SCH (08:16)
[2018-09-25] MEDS: ISOSORBIDE MONONITRATE(SR)30 MG TAB PO SCH (08:17)
[2018-09-25] MEDS: NIFEdipine (XL) 60 MG TAB PO SCH ×2 (08:17→20:21)
[2018-09-25] MEDS: INSULIN ASPART [NOVOLOG] 3 ML PEN SC SCH ×3 (08:22→17:06)
--- NOTE | 2018-09-25 12:33 | CONS ---
Assessment/Plan Assessment/Plan Hospital Course (Demo Recall) All noted, comfortable on nc, no fevers Microbiology: Blood culture on admission grew MRSA, repeat blood cultures since September 19 negative Antimicrobials: Cefepime, Clindamycin Physical examination: This is a morbidly obese well-developed middle-aged man who is alert in no distress. Head atraumatic normocephalic sclera nonicteric neck is obese chest rise symmetrical breath sounds diminished bases heart: S1-S2 abdomen soft bowel sounds present extremities without cyanosis Assessment: 1. S/p sepsis on admission 2. MRSA bacteremia, likely pulmonary source 3. Pneumonia, possible pleural effusion 4. Acute renal failure on chronic kidney disease 5. Morbid obesity 6. Diabetes 7. Likely obstructive sleep apnea and obesity hypoventilation syndrome, on nocturnal BiPAP Plan: Clinically unchanged, stable, repeat blood cultures negative. Lumbar spine MRI was nondiagnostic secondary to motion artifact, WBC labeled nuclear scan revealed no evidence of infection, dc Cefepime, continue Clindamycin until October 04, f/u renal rec-s Consultation Date/Type/Reason Admit Date/Time Sep 13, 2018 at 08:45 Initial Consult Date 09/13/18 Type of Consult id Requesting Provider: LEXII REED Date/Time of Note DATE: 09/25/18 TIME: 12:32 Exam/Review of Systems Exam Vitals Vital Signs Date Temp Pulse Resp B/P (MAP) Pulse Ox O2 O2 Flow FiO2 Time Delivery Rate 09/25/18 98.4 76 19 164/74 93 11:56 (104) 09/25/18 Nasal 2.0 08:00 Cannula 09/23/18 35 03:11 Intake and Output 09/24/18 09/24/18 09/25/18 1515:00 23:00 07:00 IntakeIntake Total 50 ml 900 ml 1000 ml OutputOutput Total 750 ml 900 ml BalanceBalance 50 ml 150 ml 100 ml Results Result Diagram: 09/23/18 0457 09/25/18 0541 Results 24hrs Laboratory Tests Test 09/24/18 17:11 09/24/18 20:41 09/25/18 05:41 09/25/18 08:11 Bedside Glucose 112 178 87 Sodium Level 143 Potassium Level 3.7 Chloride Level 102 Carbon Dioxide Level 25 Anion Gap 16 H Blood Urea Nitrogen 92 H Creatinine 4.10 H Est Glomerular 16 L Filtrat Rate mL/min Glucose Level 67 #L Calcium Level 8.7 Test 09/25/18 11:50 Bedside Glucose 188 Medications Medication Current Medications Lorazepam (Ativan) 0.5 mg Q8H PRN PO ANXIETY; Start 09/13/18 at 12:30 Ondansetron HCl (Zofran Inj) 4 mg Q6H PRN IV NAUSEA AND/OR VOMITING Last ad ministered on 09/16/18 21:16; Admin Dose 4 MG; Start 09/13/18 at 12:30 Nitroglycerin (Nitroglycerin (Sl Tab) 0.4 Mg) 1 tab Q5M PRN SL CHEST PAIN; Start 09/13/18 at 12:30 Acetaminophen (Tylenol Tab) 650 mg Q6H PRN PO PAIN LEVEL 1-3 OR FEVER Last administered on 09/19/18 10:02; Admin Dose 650 MG; Start 09/13/18 at 12:30 Zolpidem Tartrate (Ambien) 5 mg QHS PRN PO INSOMNIA Last administered on 22:47; Admin Dose 5 MG; Start 09/13/18 at 12:30 Apixaban (Eliquis) 2.5 mg BID PO Last administered on 09/25/18 08:13; Admin Dose 2.5 MG; Start 09/13/18 at 21:00 Atorvastatin Calcium (Lipitor) 80 mg QHS PO Last administered on 09/24/18 20:43; Admin Dose 80 MG; Start 09/13/18 at 21:00 Cholecalciferol (Vitamin D) 2,000 unit DAILY PO Last administered on 09/25/18 08:15; Admin Dose 2,000 UNIT; Start 09/14/18 at 09:00 EZETIMIBE (Zetia) 10 mg HS PO Last administered on 09/24/18 20:43; Admin Dose 10 MG; Start 09/13/18 at 21:00 Insulin Glargine (Lantus) 30 units QHS SC Last administered on 09/24/18 20:47; Admin Dose 30 UNITS; Start 09/13/18 at 21:00 Isosorbide Mononitrate (Imdur) 30 mg DAILY PO Last administered on 09/25/18 08:17; Admin Dose 30 MG; Start 09/14/18 at 09:00 Spironolactone (Aldactone) 25 mg DAILY PO Last administered on 09/17/18 08:31; Admin Dose 25 MG; Start 09/14/18 at 09:00; Status Hold Insulin Aspart (Novolog Insulin Pen) 10 unit WITH MEALS SC Last administered on 09/25/18at 11:55; Admin Dose 10 UNIT; Start 09/13/18 at 18:00 Miscellaneous Information 1 ea NOTE XX ; Start 09/13/18 at 13:00 Glucose (Glutose) 15 gm Q15M PRN PO DECREASED GLUCOSE; Start 09/13/18 at 13:00 Glucose (Glutose) 22.5 gm Q15M PRN PO DECREASED GLUCOSE; Start 09/13/18 at 13:00 Dextrose (D50w Syringe) 25 ml Q15M PRN IV DECREASED GLUCOSE; Start 09/13/18 at 13:00 Dextrose (D50w Syringe) 50 ml Q15M PRN IV DECREASED GLUCOSE; Start 09/13/18 at 13:00 Glucagon (Glucagen) 1 mg Q15M PRN IM DECREASED GLUCOSE; Start 09/13/18 at 13:00 Glucose (Glutose) 15 gm Q15M PRN BUCCAL DECREASED GLUCOSE; Start 09/13/18 at 13:00 Epoetin Randolph (Epogen (Non Esrd/Non Oncology)) 6,000 units TuThSa@17 SC Last administered on 09/24/18at 16:26; Admin Dose 6,000 UNITS; Start 09/14/18 at 17:00 Sevelamer Carbonate (Renvela) 800 mg WITH MEALS PO Last administered on 09/25/18 11:52; Admin Dose 800 MG; Start 09/14/18 at 08:00 Doxazosin Mesylate (Cardura) 2 mg HS PO Last administered on 09/24/18 20:50; Admin Dose 2 MG; Start 09/15/18 at 21:00 Hydralazine HCl (Apresoline) 10 mg Q6H PRN IV ELEVATED SYSTOLIC BP Last administered on 09/24/18 23:44; Admin Dose 10 MG; Start 09/16/18 at 11:00 Cefepime HCl 50 ml @ 100 mls/hr Q24H IVPB Last administered on 09/24/18 16:23; Admin Dose 100 MLS/HR; Start 09/16/18 at 16:00 Polyethylene Glycol (Miralax) 17 gm DAILY PO Last administered on 09/17/18 08:33; Admin Dose 17 GM; Start 09/16/18 at 19:00 Clindamycin HCl/ Dextrose 50 ml @ 50 mls/hr Q8 IVPB Last administered on 09/25/18 04:40; Admin Dose 50 MLS/HR; Start 09/18/18 at 15:30 Polyethylene Glycol (Miralax) 17 gm DAILY PRN PO constipation Last administered on 09/19/18 18:30; Admin Dose 17 GM; Start 09/19/18 at 16:30 Magnesium Hydroxide (Milk Of Mag) 30 ml BID PRN PO CONSTIPATION Last administered on 09/22/18 22:30; Admin Dose 30 ML; Start 09/19/18 at 23:00 Tramadol HCl (Ultram) 50 mg Q6H PRN PO MODERATE PAIN LEVEL 4-6; Start 09/20/18 at 16:30 Docusate Sodium (Colace) 100 mg BID PO Last administered on 09/24/18 20:43; Admin Dose 100 MG; Start 09/20/18 at 21:35 Fluticasone Propionate (Flonase 0.05% Nasal) 1 spray BID NASAL Last administered on 09/23/18 20:16; Admin Dose 1 SPRAY; Start 09/21/18 at 09:00 Hydralazine HCl (Apresoline) 100 mg TID PO Last administered on 09/25/18 12:09; Admin Dose 100 MG; Start 09/21/18 at 13:00 Morphine Sulfate (morphine) 6 mg Q4H PRN PO SEVERE PAIN LEVEL 7-10 Last administered on 09/21/18 21:33; Admin Dose 6 MG; Start 09/21/18 at 14:00 Famotidine (Pepcid) 20 mg Q24H PO Last administered on 09/24/18 20:43; Admin Dose 20 MG; Start 09/21/18 at 21:00 Diagnostic Test (Pha) (Accu-Chek) 1 ea 02 XX ; Start 09/23/18 at 02:00 Diagnostic Test (Pha) (Accu-Chek) 1 ea AC MEALS XX Last administered on 09/25/18 11:51; Admin Dose 1 EA; Start 09/23/18 at 07:00 Nifedipine (Procardia Xl) 60 mg BID PO Last administered on 09/25/18at 08:17; Admin Dose 60 MG; Start 09/23/18 at 21:00 Bumetanide (Bumex) 2 mg BID DIURETICS PO Last administered on 09/25/18at 04:42; Admin Dose 2 MG; Start 09/24/18 at 11:30 YOLETTE RODRIGUEZ NP Sep 25, 2018 12:33
--- NOTE | 2018-09-25 13:03 | CONS ---
Assessment/Plan Cardiology NYHA: III Heart Failure Type: Diastolic Assessment/Plan Hospital Course (Demo Recall) IMP: 1.Bacteremia-staph aureus. s/p JAVIER 09/08 with no definite findings of vegetations. Bld cx's 09/19 NTD 2.PAF 3.CHF 4.Renal failure-worsening. Does not want HD at this time 5.HTN-uncontrolled Recc: -Tele -Continue abx's and f/u cx data -Copntinue hydralazine/procardia/isordil/cardura with slight uptitration to improve BP control -ongoing ID f/u and work up -Follow volume status clsoely on Bumex Consultation Date/Type/Reason Admit Date/Time Sep 13, 2018 at 08:45 Initial Consult Date 09/13/18 Type of Consult Cardiology Reason for Consultation bacteremia Requesting Provider: LEXII REED Date/Time of Note DATE: 09/25/18 TIME: 13:00 Exam/Review of Systems Vital Signs Vitals Vital Signs Date Temp Pulse Resp B/P (MAP) Pulse Ox O2 O2 Flow FiO2 Time Delivery Rate 09/25/18 81 12:49 09/25/18 98.4 19 164/74 93 11:56 (104) 09/25/18 Nasal 2.0 08:00 Cannula 09/23/18 35 03:11 Intake and Output 09/24/18 09/24/18 09/25/18 1414:59 22:59 06:59 IntakeIntake Total 50 ml 900 ml 1000 ml OutputOutput Total 750 ml 900 ml BalanceBalance 50 ml 150 ml 100 ml Exam Exam Review of Systems: CONSTITUTIONAL: No fevers, chills. PULMONARY: No sob CARDIOVASCULAR: No chest pain/palpitations GASTROINTESTINAL: No nausea/vomiting. GENITOURINARY: No hematuria/dysuria. MUSCULOSKELETAL: No myagias/arthalgias. PSYCHIATRIC: The patient denies depression. NEUROLOGIC: No weakness Constitutional: alert Psych: no complaints Head: normocephalic ENMT: mucosa pink and moist Neck: supple, jvd (9 cm water) Respiratory: clear to auscultation Cardiovascular: regular rate and rhythm Gastrointestinal: soft, non-tender Musculoskeletal: muscle tone (normal) Extremities: edema (none) Neurological: other (No focal deficits) Labs Result Diagram: 09/23/18 0457 09/25/18 0541 Results 24hrs Laboratory Tests Test 09/24/18 17:11 09/24/18 20:41 09/25/18 05:41 09/25/18 08:11 Bedside Glucose 112 178 87 Sodium Level 143 Potassium Level 3.7 Chloride Level 102 Carbon Dioxide Level 25 Anion Gap 16 H Blood Urea Nitrogen 92 H Creatinine 4.10 H Est Glomerular 16 L Filtrat Rate mL/min Glucose Level 67 #L Calcium Level 8.7 Test 09/25/18 11:50 Bedside Glucose 188 Medications Medications Current Medications Lorazepam (Ativan) 0.5 mg Q8H PRN PO ANXIETY; Start 09/13/18 at 12:30 Ondansetron HCl (Zofran Inj) 4 mg Q6H PRN IV NAUSEA AND/OR VOMITING Last administered on 09/16/18 21:16; Admin Dose 4 MG; Start 09/13/18 at 12:30 Nitroglycerin (Nitroglycerin (Sl Tab) 0.4 Mg) 1 tab Q5M PRN SL CHEST PAIN; Start 09/13/18 at 12:30 Acetaminophen (Tylenol Tab) 650 mg Q6H PRN PO PAIN LEVEL 1-3 OR FEVER Last administered on 09/19/18 10:02; Admin Dose 650 MG; Start 09/13/18 at 12:30 Zolpidem Tartrate (Ambien) 5 mg QHS PRN PO INSOMNIA Last administered on 09/19/18 22:47; Admin Dose 5 MG; Start 09/13/18 at 12:30 Apixaban (Eliquis) 2.5 mg BID PO Last administered on 09/25/18 08:13; Admin Dose 2.5 MG; Start 09/13/18 at 21:00 Atorvastatin Calcium (Lipitor) 80 mg QHS PO Last administered on 09/24/18 20:43; Admin Dose 80 MG; Start 09/13/18 at 21:00 Cholecalciferol (Vitamin D) 2,000 unit DAILY PO Last administered on 09/25/18 08:15; Admin Dose 2,000 UNIT; Start 09/14/18 at 09:00 EZETIMIBE (Zetia) 10 mg HS PO Last administered on 09/24/18 20:43; Admin Dose 10 MG; Start 09/13/18 at 21:00 Insulin Glargine (Lantus) 30 units QHS SC Last administered on 09/24/18 20:47; Admin Dose 30 UNITS; Start 09/13/18 at 21:00 Isosorbide Mononitrate (Imdur) 30 mg DAILY PO Last administered on 09/25/18 08:17; Admin Dose 30 MG; Start 09/14/18 at 09:00 Spironolactone (Aldactone) 25 mg DAILY PO Last administered on 09/17/18 08:31; Admin Dose 25 MG; Start 09/14/18 at 09:00; Status Hold Insulin Aspart (Novolog Insulin Pen) 10 unit WITH MEALS SC Last administered on 09/25/18 11:55; Admin Dose 10 UNIT; Start 09/13/18 at 18:00 Miscellaneous Information 1 ea NOTE XX ; Start 09/13/18 at 13:00 Glucose (Glutose) 15 gm Q15M PRN PO DECREASED GLUCOSE; Start 09/13/18 at 13:00 Glucose (Glutose) 22.5 gm Q15M PRN PO DECREASED GLUCOSE; Start 09/13/18 at 13:00 Dextrose (D50w Syringe) 25 ml Q15M PRN IV DECREASED GLUCOSE; Start 09/13/18 at 13:00 Dextrose (D50w Syringe) 50 ml Q15M PRN IV DECREASED GLUCOSE; Start 09/13/18 at 13:00 Glucagon (Glucagen) 1 mg Q15M PRN IM DECREASED GLUCOSE; Start 09/13/18 at 13:00 Glucose (Glutose) 15 gm Q15M PRN BUCCAL DECREASED GLUCOSE; Start 09/13/18 at 13:00 Epoetin Randolph (Epogen (Non Esrd/Non Oncology)) 6,000 units TuThSa@17 SC Last a dministered on 09/24/18 16:26; Admin Dose 6,000 UNITS; Start 09/14/18 at 17:00 Sevelamer Carbonate (Renvela) 800 mg WITH MEALS PO Last administered on 09/25/18 11:52; Admin Dose 800 MG; Start 09/14/18 at 08:00 Doxazosin Mesylate (Cardura) 2 mg HS PO Last administered on 09/24/18at 20:50; Admin Dose 2 MG; Start 09/15/18 at 21:00 Hydralazine HCl (Apresoline) 10 mg Q6H PRN IV ELEVATED SYSTOLIC BP Last administered on 09/24/18 23:44; Admin Dose 10 MG; Start 09/16/18 at 11:00 Polyethylene Glycol (Miralax) 17 gm DAILY PO Last administered on 09/17/18 08:33; Admin Dose 17 GM; Start 09/16/18 at 19:00 Clindamycin HCl/ Dextrose 50 ml @ 50 mls/hr Q8 IVPB Last administered on 09/25/18 04:40; Admin Dose 50 MLS/HR; Start 09/18/18 at 15:30 Polyethylene Glycol (Miralax) 17 gm DAILY PRN PO constipation Last administered on 09/19/18 18:30; Admin Dose 17 GM; Start 09/19/18 at 16:30 Magnesium Hydroxide (Milk Of Mag) 30 ml BID PRN PO CONSTIPATION Last administered on 09/22/18 22:30; Admin Dose 30 ML; Start 09/19/18 at 23:00 Tramadol HCl (Ultram) 50 mg Q6H PRN PO MODERATE PAIN LEVEL 4-6; Start 09/20/18 at 16:30 Docusate Sodium (Colace) 100 mg BID PO Last administered on 09/24/18 20:43; Admin Dose 100 MG; Start 09/20/18 at 21:35 Fluticasone Propionate (Flonase 0.05% Nasal) 1 spray BID NASAL Last administered on 09/23/18 20:16; Admin Dose 1 SPRAY; Start 09/21/18 at 09:00 Hydralazine HCl (Apresoline) 100 mg TID PO Last administered on 09/25/18 12:09; Admin Dose 100 MG; Start 09/21/18 at 13:00 Morphine Sulfate (morphine) 6 mg Q4H PRN PO SEVERE PAIN LEVEL 7-10 Last administered on 09/21/18 21:33; Admin Dose 6 MG; Start 09/21/18 at 14:00 Famotidine (Pepcid) 20 mg Q24H PO Last administered on 09/24/18 20:43; Admin Dose 20 MG; Start 09/21/18 at 21:00 Diagnostic Test (Pha) (Accu-Chek) 1 ea 02 XX ; Start 09/23/18 at 02:00 Diagnostic Test (Pha) (Accu-Chek) 1 ea AC MEALS XX Last administered on 09/25/18at 11:51; Admin Dose 1 EA; Start 09/23/18 at 07:00 Nifedipine (Procardia Xl) 60 mg BID PO Last administered on 09/25/18at 08:17; Admin Dose 60 MG; Start 09/23/18 at 21:00 Bumetanide (Bumex) 2 mg BID DIURETICS PO Last administered on 09/25/18at 04:42; Admin Dose 2 MG; Start 09/24/18 at 11:30 VI ADAMES Sep 25, 2018 13:03
--- NOTE | 2018-09-25 14:13 | NUR ---
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 S/w Flip from [facility] [phone] and confirmed service for pt upon dc. Will cont to followup as needed. Khang MURILLO [phone]
--- NOTE | 2018-09-25 15:10 | PN ---
Date/Time of Note Date/Time of Note DATE: 09/25/18 TIME: 14:53 Assessment/Plan VTE Prophylaxis Risk score (from Nsg)>0 risk: 4 Pharmacological prophylaxis: NA/contraindicated Pharm contraindication: low risk/ambulating Lines/Catheters IV Catheter Type (from Nrsg): Saline Lock Urinary Cath still in place: No Assessment/Plan Hospital Course 43 yo male with CKD IV, DHF, DMII presents with MARIA DEL CARMEN and diastolic CHF, MRSA bacteremia 1. CKD with MARIA DEL CARMEN, volume overload -Resumed diuretics -Patient does not want dialysis -Renal following 2. Hypertension - controlled 3. MRSA bacteremia - Vanco x 2 weeks from 09/19. Unclear source. Tagged WBC scan is negative -Repeat cultures now negative 4. DMII: - basal bolus insulin Discharge when euvolemic and on IV abx x 4 weeks Prophylaxis: Ambulation DC planning: Anticipate DC home tomorrow Result Diagram: 09/23/18 0457 09/25/18 0541 Results 24hrs Laboratory Tests Test 09/24/18 17:11 09/24/18 20:41 09/25/18 05:41 09/25/18 08:11 Bedside Glucose 112 178 87 Sodium Level 143 Potassium Level 3.7 Chloride Level 102 Carbon Dioxide Level 25 Anion Gap 16 H Blood Urea Nitrogen 92 H Creatinine 4.10 H Est Glomerular 16 L Filtrat Rate mL/min Glucose Level 67 #L Calcium Level 8.7 Test 09/25/18 11:50 Bedside Glucose 188 Subjective 24 Hr Interval Summary Constitutional: no complaints Exam/Review of Systems Exam Vitals Vital Signs Date Temp Pulse Resp B/P (MAP) Pulse Ox O2 O2 Flow FiO2 Time Delivery Rate 09/25/18 81 12:49 09/25/18 98.4 19 164/74 93 11:56 (104) 09/25/18 Nasal 2.0 08:00 Cannula 09/23/18 35 03:11 Intake and Output 09/24/18 09/24/18 09/25/18 1515:00 23:00 07:00 IntakeIntake Total 50 ml 900 ml 1000 ml OutputOutput Total 750 ml 900 ml BalanceBalance 50 ml 150 ml 100 ml Constitutional: alert, oriented Respiratory: clear to auscultation Gastrointestinal: soft; No distended Musculoskeletal: nl extremities to inspection Results Results 24hrs Laboratory Tests Test 09/24/18 17:11 09/24/18 20:41 09/25/18 05:41 09/25/18 08:11 Bedside Glucose 112 178 87 Sodium Level 143 Potassium Level 3.7 Chloride Level 102 Carbon Dioxide Level 25 Anion Gap 16 H Blood Urea Nitrogen 92 H Creatinine 4.10 H Est Glomerular 16 L Filtrat Rate mL/min Glucose Level 67 #L Calcium Level 8.7 Test 09/25/18 11:50 Bedside Glucose 188 Medications Medication Current Medications Lorazepam (Ativan) 0.5 mg Q8H PRN PO ANXIETY; Start 09/13/18 at 12:30 Ondansetron HCl (Zofran Inj) 4 mg Q6H PRN IV NAUSEA AND/OR VOMITING Last administered on 09/16/18 21:16; Admin Dose 4 MG; Start 09/13/18 at 12:30 Nitroglycerin (Nitroglycerin (Sl Tab) 0.4 Mg) 1 tab Q5M PRN SL CHEST PAIN; Start 09/13/18 at 12:30 Acetaminophen (Tylenol Tab) 650 mg Q6H PRN PO PAIN LEVEL 1-3 OR FEVER Last administered on 09/19/18 10:02; Admin Dose 650 MG; Start 09/13/18 at 12:30 Zolpidem Tartrate (Ambien) 5 mg QHS PRN PO INSOMNIA Last administered on 09/19/18 22:47; Admin Dose 5 MG; Start 09/13/18 at 12:30 Apixaban (Eliquis) 2.5 mg BID PO Last administered on 09/25/18 08:13; Admin Dose 2.5 MG; Start 09/13/18 at 21:00 Atorvastatin Calcium (Lipitor) 80 mg QHS PO Last administered on 09/24/18 20:43; Admin Dose 80 MG; Start 09/13/18 at 21:00 Cholecalciferol (Vitamin D) 2,000 unit DAILY PO Last administered on 09/25/18 08:15; Admin Dose 2,000 UNIT; Start 09/14/18 at 09:00 EZETIMIBE (Zetia) 10 mg HS PO Last administered on 09/24/18 20:43; Admin Dose 10 MG; Start 09/13/18 at 21:00 Insulin Glargine (Lantus) 30 units QHS SC Last administered on 09/24/18 20:47; Admin Dose 30 UNITS; Start 09/13/18 at 21:00 Isosorbide Mononitrate (Imdur) 30 mg DAILY PO Last administered on 09/25/18 08:17; Admin Dose 30 MG; Start 09/14/18 at 09:00 Spironolactone (Aldactone) 25 mg DAILY PO Last administered on 09/17/18at 08:31; Admin Dose 25 MG; Start 09/14/18 at 09:00; Status Hold Insulin Aspart (Novolog Insulin Pen) 10 unit WITH MEALS SC Last administered on 09/25/18at 11:55; Admin Dose 10 UNIT; Start 09/13/18 at 18:00 Miscellaneous Information 1 ea NOTE XX ; Start 09/13/18 at 13:00 Glucose (Glutose) 15 gm Q15M PRN PO DECREASED GLUCOSE; Start 09/13/18 at 13:00 Glucose (Glutose) 22.5 gm Q15M PRN PO DECREASED GLUCOSE; Start 09/13/18 at 13:00 Dextrose (D50w Syringe) 25 ml Q15M PRN IV DECREASED GLUCOSE; Start 09/13/18 at 13:00 Dextrose (D50w Syringe) 50 ml Q15M PRN IV DECREASED GLUCOSE; Start 09/13/18 at 13:00 Glucagon (Glucagen) 1 mg Q15M PRN IM DECREASED GLUCOSE; Start 09/13/18 at 13:00 Glucose (Glutose) 15 gm Q15M PRN BUCCAL DECREASED GLUCOSE; Start 09/13/18 at 13:00 Epoetin Randolph (Epogen (Non Esrd/Non Oncology)) 6,000 units TuThSa@17 SC Last administered on 09/24/18at 16:26; Admin Dose 6,000 UNITS; Start 09/14/18 at 17:00 Sevelamer Carbonate (Renvela) 800 mg WITH MEALS PO Last administered on 09/25/18 11:52; Admin Dose 800 MG; Start 09/14/18 at 08:00 Hydralazine HCl (Apresoline) 10 mg Q6H PRN IV ELEVATED SYSTOLIC BP Last administered on 09/24/18at 23:44; Admin Dose 10 MG; Start 09/16/18 at 11:00 Polyethylene Glycol (Miralax) 17 gm DAILY PO Last administered on 09/17/18at 08:33; Admin Dose 17 GM; Start 09/16/18 at 19:00 Clindamycin HCl/ Dextrose 50 ml @ 50 mls/hr Q8 IVPB Last administered on 09/25/18 13:04; Admin Dose 50 MLS/HR; Start 09/18/18 at 15:30 Polyethylene Glycol (Miralax) 17 gm DAILY PRN PO constipation Last administered on 09/19/18 18:30; Admin Dose 17 GM; Start 09/19/18 at 16:30 Magnesium Hydroxide (Milk Of Mag) 30 ml BID PRN PO CONSTIPATION Last administered on 09/22/18 22:30; Admin Dose 30 ML; Start 09/19/18 at 23:00 Tramadol HCl (Ultram) 50 mg Q6H PRN PO MODERATE PAIN LEVEL 4-6; Start 09/20/18 at 16:30 Docusate Sodium (Colace) 100 mg BID PO Last administered on 09/24/18 20:43; Admin Dose 100 MG; Start 09/20/18 at 21:35 Fluticasone Propionate (Flonase 0.05% Nasal) 1 spray BID NASAL Last administered on 09/23/18 20:16; Admin Dose 1 SPRAY; Start 09/21/18 at 09:00 Hydralazine HCl (Apresoline) 100 mg TID PO Last administered on 09/25/18 12:09; Admin Dose 100 MG; Start 09/21/18 at 13:00 Morphine Sulfate (morphine) 6 mg Q4H PRN PO SEVERE PAIN LEVEL 7-10 Last administered on 09/21/18 21:33; Admin Dose 6 MG; Start 09/21/18 at 14:00 Famotidine (Pepcid) 20 mg Q24H PO Last administered on 09/24/18 20:43; Admin Dose 20 MG; Start 09/21/18 at 21:00 Diagnostic Test (Pha) (Accu-Chek) 1 ea 02 XX ; Start 09/23/18 at 02:00 Diagnostic Test (Pha) (Accu-Chek) 1 ea AC MEALS XX Last administered on 09/25/18 11:51; Admin Dose 1 EA; Start 09/23/18 at 07:00 Nifedipine (Procardia Xl) 60 mg BID PO Last administered on 09/25/18 08:17; Admin Dose 60 MG; Start 09/23/18 at 21:00 Bumetanide (Bumex) 2 mg BID DIURETICS PO Last administered on 09/25/18at 04:42; Admin Dose 2 MG; Start 09/24/18 at 11:30 Doxazosin Mesylate (Cardura) 4 mg HS PO ; Start 09/25/18 at 21:00 DAPHNE GALAN Sep 25, 2018 15:10
--- NOTE | 2018-09-25 16:08 | CONS ---
Assessment/Plan Assessment/Plan Assessment/Plan (Daily) 1.Acute kidney injury on CKD III due to hemodynamics from CHF - worsening 2. acute CHF exacerbation, acute on chronic, diastolic, with fluid overload and pulmonary congestion with anasarca 3. 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 H/o HTN 5. LE edema/anasarca 6. HL 7. Anemia of chronic kidney disease Plan: BUN/Cr improved to 92/4.1, other electrolytes normal - LE edema much better but still has flank edema,- continue bumex 2mg pO BID ( at home he was on 2mg po daily )- Losartan, Spironolactone has been on hold - s/p 2 U PRBC transfusion on 09/19/18- Hb 8.5- on epogen 6000 units SQ TTS for anemia Continue Renvela 800mg TID for hyperphosphatemia - monitor electrolytes and replace aggressively Renal US on previous visit- unremarkable, Kidney size R 12.0, left 11.2 cm, normal echogenicity on last visit Nifedipine 60mg BID , Coreg 6.25mg PO BID, Hydralazine 100mg PO TID if continues to improve BUn/Cr then possible d/c on Sunday with PO bumex will follow up Consultation Date/Type/Reason Admit Date/Time Sep 13, 2018 at 08:45 Initial Consult Date 09/13/18 Type of Consult NEPHROLOGY Requesting Provider: LEXII REED Date/Time of Note DATE: 09/25/18 TIME: 16:08 Exam/Review of Systems Exam Vitals Vital Signs Date Temp Pulse Resp B/P (MAP) Pulse Ox O2 O2 Flow FiO2 Time Delivery Rate 09/25/18 98.0 73 18 171/79 97 15:30 (109) 09/25/18 Nasal 2.0 08:00 Cannula 09/23/18 35 03:11 Intake and Output 09/24/18 09/24/18 09/25/18 1515:00 23:00 07:00 IntakeIntake Total 50 ml 900 ml 1000 ml OutputOutput Total 750 ml 900 ml BalanceBalance 50 ml 150 ml 100 ml Exam GEN: awake, alert, no acute distress Respiratory: Bibasilar rales, no wheezing Cardiovascular: regular rate and rhythm, nl pulses Gastrointestinal: soft, distended Musculoskeletal: muscle tone, muscle weakness, swelling Extremities: normal pulses,1-2+ LE pitting edema 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, nl mental status, nl speech, nl strength Results Result Diagram: 09/23/18 0457 09/25/18 0541 Results 24hrs Laboratory Tests Test 09/24/18 17:11 09/24/18 20:41 09/25/18 05:41 09/25/18 08:11 Bedside Glucose 112 178 87 Sodium Level 143 Potassium Level 3.7 Chloride Level 102 Carbon Dioxide Level 25 Anion Gap 16 H Blood Urea Nitrogen 92 H Creatinine 4.10 H Est Glomerular 16 L Filtrat Rate mL/min Glucose Level 67 #L Calcium Level 8.7 Test 09/25/18 11:50 Bedside Glucose 188 Medications Medication Current Medications Lorazepam (Ativan) 0.5 mg Q8H PRN PO ANXIETY; Start 09/13/18 at 12:30 Ondansetron HCl (Zofran Inj) 4 mg Q6H PRN IV NAUSEA AND/OR VOMITING Last administered on 09/16/18at 21:16; Admin Dose 4 MG; Start 09/13/18 at 12:30 Nitroglycerin (Nitroglycerin (Sl Tab) 0.4 Mg) 1 tab Q5M PRN SL CHEST PAIN; Start 09/13/18 at 12:30 Acetaminophen (Tylenol Tab) 650 mg Q6H PRN PO PAIN LEVEL 1-3 OR FEVER Last administered on 09/19/18 10:02; Admin Dose 650 MG; Start 09/13/18 at 12:30 Zolpidem Tartrate (Ambien) 5 mg QHS PRN PO INSOMNIA Last administered on 09/19/18 22:47; Admin Dose 5 MG; Start 09/13/18 at 12:30 Apixaban (Eliquis) 2.5 mg BID PO Last administered on 09/25/18 08:13; Admin Dose 2.5 MG; Start 09/13/18 at 21:00 Atorvastatin Calcium (Lipitor) 80 mg QHS PO Last administered on 09/24/18 20:43; Admin Dose 80 MG; Start 09/13/18 at 21:00 Cholecalciferol (Vitamin D) 2,000 unit DAILY PO Last administered on 09/25/18 08:15; Admin Dose 2,000 UNIT; Start 09/14/18 at 09:00 EZETIMIBE (Zetia) 10 mg HS PO Last administered on 09/24/18 20:43; Admin Dose 10 MG; Start 09/13/18 at 21:00 Insulin Glargine (Lantus) 30 units QHS SC Last administered on 09/24/18 20:47; Admin Dose 30 UNITS; Start 09/13/18 at 21:00 Isosorbide Mononitrate (Imdur) 30 mg DAILY PO Last administered on 09/25/18 08:17; Admin Dose 30 MG; Start 09/14/18 at 09:00 Spironolactone (Aldactone) 25 mg DAILY PO Last administered on 09/17/18 08:31; Admin Dose 25 MG; Start 09/14/18 at 09:00; Status Hold Insulin Aspart (Novolog Insulin Pen) 10 unit WITH MEALS SC Last administered on 09/25/18 11:55; Admin Dose 10 UNIT; Start 09/13/18 at 18:00 Miscellaneous Information 1 ea NOTE XX ; Start 09/13/18 at 13:00 Glucose (Glutose) 15 gm Q15M PRN PO DECREASED GLUCOSE; Start 09/13/18 at 13:00 Glucose (Glutose) 22.5 gm Q15M PRN PO DECREASED GLUCOSE; Start 09/13/18 at 13:00 Dextrose (D50w Syringe) 25 ml Q15M PRN IV DECREASED GLUCOSE; Start 09/13/18 at 13:00 Dextrose (D50w Syringe) 50 ml Q15M PRN IV DECREASED GLUCOSE; Start 09/13/18 at 13:00 Glucagon (Glucagen) 1 mg Q15M PRN IM DECREASED GLUCOSE; Start 09/13/18 at 13:00 Glucose (Glutose) 15 gm Q15M PRN BUCCAL DECREASED GLUCOSE; Start 09/13/18 at 13:00 Epoetin Randolph (Epogen (Non Esrd/Non Oncology)) 6,000 units TuThSa@17 SC Last a dministered on 09/24/18 16:26; Admin Dose 6,000 UNITS; Start 09/14/18 at 17:00 Sevelamer Carbonate (Renvela) 800 mg WITH MEALS PO Last administered on 09/25/18 11:52; Admin Dose 800 MG; Start 09/14/18 at 08:00 Hydralazine HCl (Apresoline) 10 mg Q6H PRN IV ELEVATED SYSTOLIC BP Last administered on 09/24/18 23:44; Admin Dose 10 MG; Start 09/16/18 at 11:00 Polyethylene Glycol (Miralax) 17 gm DAILY PO Last administered on 09/17/18 08:33; Admin Dose 17 GM; Start 09/16/18 at 19:00 Clindamycin HCl/ Dextrose 50 ml @ 50 mls/hr Q8 IVPB Last administered on 09/25/18 13:04; Admin Dose 50 MLS/HR; Start 09/18/18 at 15:30 Polyethylene Glycol (Miralax) 17 gm DAILY PRN PO constipation Last administered on 09/19/18 18:30; Admin Dose 17 GM; Start 09/19/18 at 16:30 Magnesium Hydroxide (Milk Of Mag) 30 ml BID PRN PO CONSTIPATION Last administered on 09/22/18 22:30; Admin Dose 30 ML; Start 09/19/18 at 23:00 Tramadol HCl (Ultram) 50 mg Q6H PRN PO MODERATE PAIN LEVEL 4-6; Start 09/20/18 at 16:30 Docusate Sodium (Colace) 100 mg BID PO Last administered on 09/24/18 20:43; Admin Dose 100 MG; Start 09/20/18 at 21:35 Fluticasone Propionate (Flonase 0.05% Nasal) 1 spray BID NASAL Last administ ered on 09/23/18 20:16; Admin Dose 1 SPRAY; Start 09/21/18 at 09:00 Hydralazine HCl (Apresoline) 100 mg TID PO Last administered on 09/25/18 12:09; Admin Dose 100 MG; Start 09/21/18 at 13:00 Morphine Sulfate (morphine) 6 mg Q4H PRN PO SEVERE PAIN LEVEL 7-10 Last administered on 09/21/18 21:33; Admin Dose 6 MG; Start 09/21/18 at 14:00 Famotidine (Pepcid) 20 mg Q24H PO Last administered on 09/24/18 20:43; Admin Dose 20 MG; Start 09/21/18 at 21:00 Diagnostic Test (Pha) (Accu-Chek) 1 ea 02 XX ; Start 09/23/18 at 02:00 Diagnostic Test (Pha) (Accu-Chek) 1 ea AC MEALS XX Last administered on 09/25/18at 11:51; Admin Dose 1 EA; Start 09/23/18 at 07:00 Nifedipine (Procardia Xl) 60 mg BID PO Last administered on 09/25/18at 08:17; Admin Dose 60 MG; Start 09/23/18 at 21:00 Bumetanide (Bumex) 2 mg BID DIURETICS PO Last administered on 09/25/18at 04:42; Admin Dose 2 MG; Start 09/24/18 at 11:30 Doxazosin Mesylate (Cardura) 4 mg HS PO ; Start 09/25/18 at 21:00 LOLIS CROWDER MD Sep 25, 2018 16:08
[2018-09-25] MEDS: hydrALAzine 20 MG INJ IV PRN (17:00)
--- NOTE | 2018-09-25 18:01 | NUR ---
EOSS: Pt is stable, VS are WNL, Blood sugar is controlled. Pt is for possible DC home tomorrow. Pt is comfortable, no pain throughout the shift. will endorse the care to sock drier nurse.
--- NOTE | 2018-09-25 19:25 | NUR ---
Pt is awake, alert and oriented x 4. Ambulatory. Heplocked. Still on ABX IV. As per report, pt will have midline inserted tomorrow before pt leaves the hospital for continuous IV ABX. Denies pain.
[2018-09-25] MEDS: EZETIMIBE 10 MG TAB PO SCH (20:20)
[2018-09-25] MEDS: ATORVASTATIN 80 MG TAB PO SCH (20:20)
[2018-09-25] MEDS: FAMOTIDINE 20 MG TAB PO SCH (20:20)
[2018-09-25] MEDS: INSULIN GLARGINE [LANTus] (100 UNITS/ML) SYG SC SCH (20:31)
[2018-09-25] MEDS: DOXAZOSIN 4 MG TAB PO SCH (20:34)
[2018-09-26] VITALS (12 sets, daily range): BP systolic 155–193; BP diastolic 70–82; PULSE 67–86; RESP 18–19
--- NOTE | 2018-09-26 00:30 | NUR ---
SBP was at first elevated greater than 160. Rechecked and showed SBP was less than 160. Didn't give prn BP med.
[2018-09-26] MEDS: ACCU-CHEK XX SCH ×4 (02:00→17:36)
--- NOTE | 2018-09-26 04:34 | NUR ---
Pt was using Bipap earlier to get some sleep according to the pt. He's now awake and watching TV. On 2L of O2 via nasal cannula.
[2018-09-26] MEDS: BUMETANIDE 1 MG TAB PO SCH ×2 (05:15→17:37)
[2018-09-26] MEDS: CLINDAMYCIN 600 MG/D5W (PMX) 50 ML IVPB SCH ×3 (05:15→21:01)
--- NOTE | 2018-09-26 06:19 | NUR ---
Pt awake and watching TV. Given Bumex and ABX IV. Pt doesn't want to be discharged today. WIll endorse to morning nurse to notify .
[2018-09-26] MEDS: SEVELAMER CARBONATE 800 MG TABLET PO SCH ×3 (07:40→17:37)
[2018-09-26] MEDS: INSULIN ASPART [NOVOLOG] 3 ML PEN SC SCH ×3 (07:44→17:41)
[2018-09-26] MEDS ORDERED: POTASSIUM CHLORIDE (SR) 20 MEQ TAB PO STA (08:13)
--- NOTE | 2018-09-26 08:13 | CONS ---
Assessment/Plan Assessment/Plan Assessment/Plan (Daily) 1.Acute kidney injury on CKD III due to hemodynamics from CHF - worsening 2. acute CHF exacerbation, acute on chronic, diastolic, with fluid overload and pulmonary congestion with anasarca 3. 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 H/o HTN 5. LE edema/anasarca 6. HL 7. Anemia of chronic kidney disease Plan: BUN/Cr improved to 88/3.7, other electrolytes normal - LE edema much better but still has flank edema,- continue bumex 2mg pO BID ( at home he was on 2mg po daily )- Losartan, Spironolactone has been on hold - s/p 2 U PRBC transfusion on 09/19/18- Hb 8.5- on epogen 6000 units SQ TTS for anemia Continue Renvela 800mg TID for hyperphosphatemia - monitor electrolytes and replace aggressively Renal US on previous visit- unremarkable, Kidney size R 12.0, left 11.2 cm, normal echogenicity on last visit Nifedipine 60mg BID , Coreg 6.25mg PO BID, Hydralazine 100mg PO TID if continues to improve BUn/Cr then possible d/c on Sunday with PO bumex will follow up Consultation Date/Type/Reason Admit Date/Time Sep 13, 2018 at 08:45 Initial Consult Date 09/13/18 Type of Consult NEPHROLOGY Requesting Provider: LEXII REED Date/Time of Note DATE: 09/26/18 TIME: 08:13 24 HR Interval Summary Free Text/Dictation chest US negative for pelural effusion , on Bumex 2 mg PO BID Exam/Review of Systems Exam Vitals Vital Signs Date Temp Pulse Resp B/P (MAP) Pulse Ox O2 O2 Flow FiO2 Time Delivery Rate 09/26/18 98.4 77 19 193/82 94 08:09 (119) 09/26/18 Nasal 2.0 02:40 Cannula 09/26/18 35 01:51 Intake and Output 09/25/18 09/25/18 09/26/18 1515:00 23:00 07:00 IntakeIntake Total 1000 ml 1200 ml OutputOutput Total 2000 ml 1600 ml BalanceBalance -1000 ml -400 ml Exam GEN: awake, alert, no acute distress Respiratory: Bibasilar rales, no wheezing Cardiovascular: regular rate and rhythm, nl pulses Gastrointestinal: soft, distended Musculoskeletal: muscle tone, muscle weakness, swelling Extremities: normal pulses,1-2+ LE pitting edema Neurological: TOP STITCHER II-XII intact, nl mental status, nl speech, nl strength Results Result Diagram: 09/23/18 0457 09/26/18 0532 Results 24hrs Laboratory Tests Test 09/25/18 11:50 09/25/18 16:59 09/25/18 20:18 09/26/18 05:32 Bedside Glucose 188 168 115 Sodium Level 141 Potassium Level 3.4 L Chloride Level 104 Carbon Dioxide Level 24 Anion Gap 13 Blood Urea Nitrogen 88 H Creatinine 3.70 H Est Glomerular 18 L Filtrat Rate mL/min Glucose Level 95 Calcium Level 8.8 Test 09/26/18 07:39 Bedside Glucose 99 Medications Medication Current Medications Lorazepam (Ativan) 0.5 mg Q8H PRN PO ANXIETY; Start 09/13/18 at 12:30 Ondansetron HCl (Zofran Inj) 4 mg Q6H PRN IV NAUSEA AND/OR VOMITING Last administered on 09/16/18at 21:16; Admin Dose 4 MG; Start 09/13/18 at 12:30 Nitroglycerin (Nitroglycerin (Sl Tab) 0.4 Mg) 1 tab Q5M PRN SL CHEST PAIN; Start 09/13/18 at 12:30 Acetaminophen (Tylenol Tab) 650 mg Q6H PRN PO PAIN LEVEL 1-3 OR FEVER Last administered on 09/19/18 10:02; Admin Dose 650 MG; Start 09/13/18 at 12:30 Zolpidem Tartrate (Ambien) 5 mg QHS PRN PO INSOMNIA Last administered on 09/19/18 22:47; Admin Dose 5 MG; Start 09/13/18 at 12:30 Apixaban (Eliquis) 2.5 mg BID PO Last administered on 09/25/18 20:20; Admin Dose 2.5 MG; Start 09/13/18 at 21:00 Atorvastatin Calcium (Lipitor) 80 mg QHS PO Last administered on 09/25/18 20:20; Admin Dose 80 MG; Start 09/13/18 at 21:00 Cholecalciferol (Vitamin D) 2,000 unit DAILY PO Last administered on 09/25/18 08:15; Admin Dose 2,000 UNIT; Start 09/14/18 at 09:00 EZETIMIBE (Zetia) 10 mg HS PO Last administered on 09/25/18 20:20; Admin Dose 10 MG; Start 09/13/18 at 21:00 Insulin Glargine (Lantus) 30 units QHS SC Last administered on 09/25/18 20:31; Admin Dose 30 UNITS; Start 09/13/18 at 21:00 Isosorbide Mononitrate (Imdur) 30 mg DAILY PO Last administered on 09/25/18 08:17; Admin Dose 30 MG; Start 09/14/18 at 09:00 Spironolactone (Aldactone) 25 mg DAILY PO Last administered on 09/17/18 08:31; Admin Dose 25 MG; Start 09/14/18 at 09:00; Status Hold Insulin Aspart (Novolog Insulin Pen) 10 unit WITH MEALS SC Last administered on 09/26/18 07:44; Admin Dose 10 UNIT; Start 09/13/18 at 18:00 Miscellaneous Information 1 ea NOTE XX ; Start 09/13/18 at 13:00 Glucose (Glutose) 15 gm Q15M PRN PO DECREASED GLUCOSE; Start 09/13/18 at 13:00 Glucose (Glutose) 22.5 gm Q15M PRN PO DECREASED GLUCOSE; Start 09/13/18 at 13:00 Dextrose (D50w Syringe) 25 ml Q15M PRN IV DECREASED GLUCOSE; Start 09/13/18 at 13:00 Dextrose (D50w Syringe) 50 ml Q15M PRN IV DECREASED GLUCOSE; Start 09/13/18 at 13:00 Glucagon (Glucagen) 1 mg Q15M PRN IM DECREASED GLUCOSE; Start 09/13/18 at 13:00 Glucose (Glutose) 15 gm Q15M PRN BUCCAL DECREASED GLUCOSE; Start 09/13/18 at 13:00 Epoetin Randolph (Epogen (Non Esrd/Non Oncology)) 6,000 units TuThSa@17 SC Last administered on 09/24/18at 16:26; Admin Dose 6,000 UNITS; Start 09/14/18 at 17:00 Sevelamer Carbonate (Renvela) 800 mg WITH MEALS PO Last administered on 09/26/18at 07:40; Admin Dose 800 MG; Start 09/14/18 at 08:00 Hydralazine HCl (Apresoline) 10 mg Q6H PRN IV ELEVATED SYSTOLIC BP Last administered on 09/25/18 17:00; Admin Dose 10 MG; Start 09/16/18 at 11:00 Polyethylene Glycol (Miralax) 17 gm DAILY PO Last administered on 09/17/18 08:33; Admin Dose 17 GM; Start 09/16/18 at 19:00 Clindamycin HCl/ Dextrose 50 ml @ 50 mls/hr Q8 IVPB Last administered on 09/26 05:15; Admin Dose 50 MLS/HR; Start 09/18/18 at 15:30 Polyethylene Glycol (Miralax) 17 gm DAILY PRN PO constipation Last administered on 09/19/18 18:30; Admin Dose 17 GM; Start 09/19/18 at 16:30 Magnesium Hydroxide (Milk Of Mag) 30 ml BID PRN PO CONSTIPATION Last administered on 09/22/18 22:30; Admin Dose 30 ML; Start 09/19/18 at 23:00 Tramadol HCl (Ultram) 50 mg Q6H PRN PO MODERATE PAIN LEVEL 4-6; Start 09/20/18 at 16:30 Docusate Sodium (Colace) 100 mg BID PO Last administered on 09/25/18 20:20; Admin Dose 100 MG; Start 09/20/18 at 21:35 Fluticasone Propionate (Flonase 0.05% Nasal) 1 spray BID NASAL Last administered on 09/23/18 20:16; Admin Dose 1 SPRAY; Start 09/21/18 at 09:00 Hydralazine HCl (Apresoline) 100 mg TID PO Last administered on 09/25/18 20:21; Admin Dose 100 MG; Start 09/21/18 at 13:00 Morphine Sulfate (morphine) 6 mg Q4H PRN PO SEVERE PAIN LEVEL 7-10 Last administered on 09/21/18 21:33; Admin Dose 6 MG; Start 09/21/18 at 14:00 Famotidine (Pepcid) 20 mg Q24H PO Last administered on 09/25/18 20:20; Admin Dose 20 MG; Start 09/21/18 at 21:00 Diagnostic Test (Pha) (Accu-Chek) 1 02 XX ; Start 09/23/18 at 02:00 Diagnostic Test (Pha) (Accu-Chek) 1 ea AC MEALS XX Last administered on 09/26/18at 07:40; Admin Dose 1 EA; Start 09/23/18 at 07:00 Nifedipine (Procardia Xl) 60 mg BID PO Last administered on 09/25/18at 20:21; Admin Dose 60 MG; Start 09/23/18 at 21:00 Bumetanide (Bumex) 2 mg BID DIURETICS PO Last administered on 09/26/18at 05:15; Admin Dose 2 MG; Start 09/24/18 at 11:30 Doxazosin Mesylate (Cardura) 4 mg HS PO Last administered on 09/25/18at 20:34; Admin Dose 4 MG; Start 09/25/18 at 21:00 LOLIS CROWDER MD Sep 26, 2018 08:13
[2018-09-26] MEDS: DOCUSATE SODIUM 100 MG CAP PO SCH ×2 (08:16→20:47)
[2018-09-26] MEDS: CHOLECALCIFEROL 1,000 UNIT TAB PO SCH (08:17)
[2018-09-26] MEDS: APIXABAN 5 MG TABLET PO SCH ×2 (08:17→20:48)
[2018-09-26] MEDS: NIFEdipine (XL) 60 MG TAB PO SCH ×2 (08:18→20:47)
[2018-09-26] MEDS: POLYETHYLENE GLYCOL 17 GM PACKET PO SCH (08:19)
[2018-09-26] MEDS: ISOSORBIDE MONONITRATE(SR)30 MG TAB PO SCH (08:19)
[2018-09-26] MEDS ORDERED: DOXA4TAB2 PO (10:34)
[2018-09-26] MEDS ORDERED: SEVE800T7 PO (10:34)
--- NOTE | 2018-09-26 10:35 | PDOCDIS ---
Discharge Instructions CONDITION [id number] Patient Condition: [id number] Good HOME CARE INSTRUCTIONS: Tetco6Cz Diet Instructions: [id number] Reduced Calorie [id number] Special Diet: Rlyvg5b LOW CARB ACTIVITY: [id number] Activity Restrictions: [id number] No Restrictions FOLLOW UP/APPOINTMENTS Follow-up Plan FOLLOW UP WITH YOUR PCP IN 1-2 WEEKS, FOLLOW UP WITH HOME HEALTH DAPHNE GALAN Sep 26, 2018 10:35
[2018-09-26] MEDS: FLUTICASONE 0.05% 16 GM NAS SPRAY NASAL SCH ×2 (11:40→20:50)
--- NOTE | 2018-09-26 12:23 | CARRPT ---
DATE OF PROCEDURE: 09/18/2018 TYPE OF PROCEDURE: Transesophageal echo. ATTENDING PHYSICIAN: Vi Sanon MD REFERRING PHYSICIAN: Dr. Reed from the hospitalist service. INDICATION: Bacteremia, assess for intracardiac source of infection. TYPE OF ANESTHESIA: MAC under direction of anesthesiologist, Dr. Alva at bedside. BRIEF HISTORY: Mr. Douglas is a 43-year-old male with history of paroxysmal atrial fibrillat ion, congestive heart failure, renal failure who was noted to have recurrent Staphylococcus aureus ba cteremia and multiple blood cultures. The patient underwent a transthoracic echo without findings an d now infectious disease service has requested transesophageal echo to assess for intracardiac source of infection. DESCRIPTION OF PROCEDURE: After informed consent was obtained, the patient was brought to the [facility] cardiac catheterization lab holding room where he was placed on continuous tel emetry monitoring, continuous O2 saturation monitoring, blood pressure cuff cycling every 3 minutes. The patient had a bite block placed in his mouth and under direction of anesthesiologist was given M AC anesthesia with propofol in order to achieve adequate level of anesthesia. Subsequently, at this time, the patient's esophagus was intubated with the transesophageal echo probe and multiplanar imagi ng and color flow Doppler interrogation of the intracardiac structures were done. Subsequently, the probe was removed. The patient was allowed to awake from his anesthetized state. This completed the procedure. There were no noted complications. IMPRESSION: No definite findings of valvular vegetations noted on any of the well visualized valvula r apparatus. RECOMMENDATIONS: Would continue to assess for alternative sources of infection. Dictated By: VI SALGADO/NTS Conf#: [id number] DID#: [id number] CC: YOLETTE RODRIGUEZ NP; LEXII REED MD;*EndCC*
--- NOTE | 2018-09-26 13:57 | PN ---
Date/Time of Note Date/Time of Note DATE: 09/26/18 TIME: 13:54 Assessment/Plan VTE Prophylaxis Risk score (from Nsg)>0 risk: 3 Pharmacological prophylaxis: NA/contraindicated Pharm contraindication: low risk/ambulating Lines/Catheters IV Catheter Type (from Nrsg): Saline Lock Urinary Cath still in place: No Assessment/Plan Hospital Course 43 yo male with CKD IV, DHF, DMII presents with MARIA DEL CARMEN and diastolic CHF, MRSA bacteremia 1. CKD with MARIA DEL CARMEN, volume overload -Patient continues to report shortness of breath -Continue Bumex -Patient does not want dialysis -Renal following 2. Hypertension - controlled 3. MRSA bacteremia - Vanco x 2 weeks from 09/19. Unclear source. Tagged WBC scan is negative -Repeat cultures now negative 4. DMII: - basal bolus insulin Discharge when euvolemic and on IV abx x 4 weeks Prophylaxis: Ambulation DC planning: Patient continues to report shortness of breath and requires supplemental O2 Result Diagram: 09/23/18 0457 09/26/18 0532 Results 24hrs Laboratory Tests Test 09/25/18 16:59 09/25/18 20:18 09/26/18 05:32 09/26/18 07:39 Bedside Glucose 168 115 99 Sodium Level 141 Potassium Level 3.4 L Chloride Level 104 Carbon Dioxide Level 24 Anion Gap 13 Blood Urea Nitrogen 88 H Creatinine 3.70 H Est Glomerular 18 L Filtrat Rate mL/min Glucose Level 95 Calcium Level 8.8 Test 09/26/18 11:39 Bedside Glucose 105 Subjective 24 Hr Interval Summary Respiratory: shortness of breath Exam/Review of Systems Exam Vitals Vital Signs Date Temp Pulse Resp B/P (MAP) Pulse Ox O2 O2 Flow FiO2 Time Delivery Rate 09/26/18 76 12:46 09/26/18 98.8 18 159/70 96 11:13 (99) 09/26/18 3.0 08:43 09/26/18 Nasal 08:00 Cannula 09/26/18 35 01:51 Intake and Output 09/25/18 09/25/18 09/26/18 1515:00 23:00 07:00 IntakeIntake Total 1000 ml 1200 ml OutputOutput Total 2000 ml 1600 ml BalanceBalance -1000 ml -400 ml Constitutional: alert, oriented Respiratory: clear to auscultation Cardiovascular: regular rate and rhythm Gastrointestinal: soft; No distended Musculoskeletal: nl extremities to inspection Results Results 24hrs Laboratory Tests Test 09/25/18 16:59 09/25/18 20:18 09/26/18 05:32 09/26/18 07:39 Bedside Glucose 168 115 99 Sodium Level 141 Potassium Level 3.4 L Chloride Level 104 Carbon Dioxide Level 24 Anion Gap 13 Blood Urea Nitrogen 88 H Creatinine 3.70 H Est Glomerular 18 L Filtrat Rate mL/min Glucose Level 95 Calcium Level 8.8 Test 09/26/18 11:39 Bedside Glucose 105 Medications Medication Current Medications Lorazepam (Ativan) 0.5 mg Q8H PRN PO ANXIETY; Start 09/13/18 at 12:30 Ondansetron HCl (Zofran Inj) 4 mg Q6H PRN IV NAUSEA AND/OR VOMITING Last administered on 09/16/18 21:16; Admin Dose 4 MG; Start 09/13/18 at 12:30 Nitroglycerin (Nitroglycerin (Sl Tab) 0.4 Mg) 1 tab Q5M PRN SL CHEST PAIN; St art 09/13/18 at 12:30 Acetaminophen (Tylenol Tab) 650 mg Q6H PRN PO PAIN LEVEL 1-3 OR FEVER Last adm inistered on 09/19/18 10:02; Admin Dose 650 MG; Start 09/13/18 at 12:30 Zolpidem Tartrate (Ambien) 5 mg QHS PRN PO INSOMNIA Last administered on 09/19/18 22:47; Admin Dose 5 MG; Start 09/13/18 at 12:30 Apixaban (Eliquis) 2.5 mg BID PO Last administered on 09/26/18 08:17; Admin Dose 2.5 MG; Start 09/13/18 at 21:00 Atorvastatin Calcium (Lipitor) 80 mg QHS PO Last administered on 09/25/18 20:2 0; Admin Dose 80 MG; Start 09/13/18 at 21:00 Cholecalciferol (Vitamin D) 2,000 unit DAILY PO Last administered on 09/26/18 08:17; Admin Dose 2,000 UNIT; Start 09/14/18 at 09:00 EZETIMIBE (Zetia) 10 mg HS PO Last administered on 09/25/18 20:20; Admin Dose 10 MG; Start 09/13/18 at 21:00 Insulin Glargine (Lantus) 30 units QHS SC Last administered on 09/25/18 20:31; Admin Dose 30 UNITS; Start 09/13/18 at 21:00 Isosorbide Mononitrate (Imdur) 30 mg DAILY PO Last administered on 09/26/18 08:19; Admin Dose 30 MG; Start 09/14/18 at 09:00 Spironolactone (Aldactone) 25 mg DAILY PO Last administered on 09/17/18 08:31; Admin Dose 25 MG; Start 09/14/18 at 09:00; Status Hold Insulin Aspart (Novolog Insulin Pen) 10 unit WITH MEALS SC Last administered on 09/26/18at 11:43; Admin Dose 10 UNIT; Start 09/13/18 at 18:00 Miscellaneous Information 1 ea NOTE XX ; Start 09/13/18 at 13:00 Glucose (Glutose) 15 gm Q15M PRN PO DECREASED GLUCOSE; Start 09/13/18 at 13:00 Glucose (Glutose) 22.5 gm Q15M PRN PO DECREASED GLUCOSE; Start 09/13/18 at 13:00 Dextrose (D50w Syringe) 25 ml Q15M PRN IV DECREASED GLUCOSE; Start 09/13/18 at 13:00 Dextrose (D50w Syringe) 50 ml Q15M PRN IV DECREASED GLUCOSE; Start 09/13/18 at 13:00 Glucagon (Glucagen) 1 mg Q15M PRN IM DECREASED GLUCOSE; Start 09/13/18 at 13:00 Glucose (Glutose) 15 gm Q15M PRN BUCCAL DECREASED GLUCOSE; Start 09/13/18 at 13:00 Epoetin Randolph (Epogen (Non Esrd/Non Oncology)) 6,000 units TuThSa@17 SC Last administered on 09/24/18at 16:26; Admin Dose 6,000 UNITS; Start 09/14/18 at 17:00 Sevelamer Carbonate (Renvela) 800 mg WITH MEALS PO Last administered on 09/26/18at 11:45; Admin Dose 800 MG; Start 09/14/18 at 08:00 Hydralazine HCl (Apresoline) 10 mg Q6H PRN IV ELEVATED SYSTOLIC BP Last administered on 09/25/18 17:00; Admin Dose 10 MG; Start 09/16/18 at 11:00 Polyethylene Glycol (Miralax) 17 gm DAILY PO Last administered on 09/17/18 08:33; Admin Dose 17 GM; Start 09/16/18 at 19:00 Clindamycin HCl/ Dextrose 50 ml @ 50 mls/hr Q8 IVPB Last administered on 09/26/18 05:15; Admin Dose 50 MLS/HR; Start 09/18/18 at 15:30 Polyethylene Glycol (Miralax) 17 gm DAILY PRN PO constipation Last administered on 09/19/18 18:30; Admin Dose 17 GM; Start 09/19/18 at 16:30 Magnesium Hydroxide (Milk Of Mag) 30 ml BID PRN PO CONSTIPATION Last administered on 09/22/18 22:30; Admin Dose 30 ML; Start 09/19/18 at 23:00 Tramadol HCl (Ultram) 50 mg Q6H PRN PO MODERATE PAIN LEVEL 4-6; Start 09/20/18 at 16:30 Docusate Sodium (Colace) 100 mg BID PO Last administered on 09/26/18 08:16; Admin Dose 100 MG; Start 09/20/18 at 21:35 Fluticasone Propionate (Flonase 0.05% Nasal) 1 spray BID NASAL Last administered on 09/26/18 11:40; Admin Dose 1 SPRAY; Start 09/21/18 at 09:00 Hydralazine HCl (Apresoline) 100 mg TID PO Last administered on 09/26/18 12:58; Admin Dose 100 MG; Start 09/21/18 at 13:00 Morphine Sulfate (morphine) 6 mg Q4H PRN PO SEVERE PAIN LEVEL 7-10 Last administered on 09/21/18 21:33; Admin Dose 6 MG; Start 09/21/18 at 14:00 Famotidine (Pepcid) 20 mg Q24H PO Last administered on 09/25/18 20:20; Admin Dose 20 MG; Start 09/21/18 at 21:00 Diagnostic Test (Pha) (Accu-Chek) 1 ea 02 XX ; Start 09/23/18 at 02:00 Diagnostic Test (Pha) (Accu-Chek) 1 ea AC MEALS XX Last administered on 09/26/18 11:40; Admin Dose 1 EA; Start 09/23/18 at 07:00 Nifedipine (Procardia Xl) 60 mg BID PO Last administered on 09/26/18at 08:18; Admin Dose 60 MG; Start 09/23/18 at 21:00 Bumetanide (Bumex) 2 mg BID DIURETICS PO Last administered on 09/26/18at 05:15; Admin Dose 2 MG; Start 09/24/18 at 11:30 Doxazosin Mesylate (Cardura) 4 mg HS PO Last administered on 09/25/18at 20:34; Admin Dose 4 MG; Start 09/25/18 at 21:00 DAPHNE GALAN Sep 26, 2018 13:57
--- NOTE | 2018-09-26 14:31 | CONS ---
Assessment/Plan Assessment/Plan Hospital Course (Demo Recall) Alert, comfortable on nc, denies pain, no fevers Microbiology: Blood culture on admission grew MRSA, repeat blood cultures since September 19 negative Antimicrobials: Clindamycin Physical examination: This is a morbidly obese well-developed middle-aged man who is alert in no distress. Head atraumatic normocephalic sclera nonicteric neck is obese chest rise symmetrical breath sounds diminished bases heart: S1-S2 abdomen soft bowel sounds present extremities without cyanosis Assessment: 1. S/p sepsis on admission 2. MRSA bacteremia, likely pulmonary source 3. Pneumonia, possible pleural effusion 4. Acute renal failure on chronic kidney disease 5. Morbid obesity 6. Diabetes 7. Likely obstructive sleep apnea and obesity hypoventilation syndrome, on nocturnal BiPAP Plan: Stable, repeat blood cultures negative. Lumbar spine MRI was nondiagnostic secondary to motion artifact, WBC labeled nuclear scan revealed no evidence of infection. Continue IV Clindamycin until October 04, f/u renal rec-s DW pt Consultation Date/Type/Reason Admit Date/Time Sep 13, 2018 at 08:45 Initial Consult Date 09/13/18 Type of Consult id Requesting Provider: LEXII REED Date/Time of Note DATE: 09/26/18 TIME: 14:29 Exam/Review of Systems Exam Vitals Vital Signs Date Temp Pulse Resp B/P (MAP) Pulse Ox O2 O2 Flow FiO2 Time Delivery Rate 09/26/18 76 12:46 09/26/18 98.8 18 159/70 96 11:13 (99) 09/26/18 3.0 08:43 09/26/18 Nasal 08:00 Cannula 09/26/18 35 01:51 Intake and Output 09/25/18 09/25/18 09/26/18 1515:00 23:00 07:00 IntakeIntake Total 1000 ml 1200 ml OutputOutput Total 2000 ml 1600 ml BalanceBalance -1000 ml -400 ml Results Result Diagram: 09/23/18 0457 09/26/18 0532 Results 24hrs Laboratory Tests Test 09/25/18 16:59 09/25/18 20:18 09/26/18 05:32 09/26/18 07:39 Bedside Glucose 168 115 99 Sodium Level 141 Potassium Level 3.4 L Chloride Level 104 Carbon Dioxide Level 24 Anion Gap 13 Blood Urea Nitrogen 88 H Creatinine 3.70 H Est Glomerular 18 L Filtrat Rate mL/min Glucose Level 95 Calcium Level 8.8 Test 09/26/18 11:39 Bedside Glucose 105 Medications Medication Current Medications Lorazepam (Ativan) 0.5 mg Q8H PRN PO ANXIETY; Start 09/13/18 at 12:30 Ondansetron HCl (Zofran Inj) 4 mg Q6H PRN IV NAUSEA AND/OR VOMITING Last administered on 09/16/18 21:16; Admin Dose 4 MG; Start 09/13/18 at 12:30 Nitroglycerin (Nitroglycerin (Sl Tab) 0.4 Mg) 1 tab Q5M PRN SL CHEST PAIN; Start 09/13/18 at 12:30 Acetaminophen (Tylenol Tab) 650 mg Q6H PRN PO PAIN LEVEL 1-3 OR FEVER Last administered on 09/19/18 10:02; Admin Dose 650 MG; Start 09/13/18 at 12:30 Zolpidem Tartrate (Ambien) 5 mg QHS PRN PO INSOMNIA Last administered on 09/19/18 22:47; Admin Dose 5 MG; Start 09/13/18 at 12:30 Apixaban (Eliquis) 2.5 mg BID PO Last administered on 09/26/18 08:17; Admin Dose 2.5 MG; Start 09/13/18 at 21:00 Atorvastatin Calcium (Lipitor) 80 mg QHS PO Last administered on 09/25/18 20:20; Admin Dose 80 MG; Start 09/13/18 at 21:00 Cholecalciferol (Vitamin D) 2,000 unit DAILY PO Last administered on 09/26/18 08:17; Admin Dose 2,000 UNIT; Start 09/14/18 at 09:00 EZETIMIBE (Zetia) 10 mg HS PO Last administered on 09/25/18 20:20; Admin Dose 10 MG; Start 09/13/18 at 21:00 Insulin Glargine (Lantus) 30 units QHS SC Last administered on 09/25/18 20:31; Admin Dose 30 UNITS; Start 09/13/18 at 21:00 Isosorbide Mononitrate (Imdur) 30 mg DAILY PO Last administered on 09/26/18 08:19; Admin Dose 30 MG; Start 09/14/18 at 09:00 Spironolactone (Aldactone) 25 mg DAILY PO Last administered on 09/17/18at 08:31; Admin Dose 25 MG; Start 09/14/18 at 09:00; Status Hold Insulin Aspart (Novolog Insulin Pen) 10 unit WITH MEALS SC Last administered on 09/26/18at 11:43; Admin Dose 10 UNIT; Start 09/13/18 at 18:00 Miscellaneous Information 1 ea NOTE XX ; Start 09/13/18 at 13:00 Glucose (Glutose) 15 gm Q15M PRN PO DECREASED GLUCOSE; Start 09/13/18 at 13:00 Glucose (Glutose) 22.5 gm Q15M PRN PO DECREASED GLUCOSE; Start 09/13/18 at 13:00 Dextrose (D50w Syringe) 25 ml Q15M PRN IV DECREASED GLUCOSE; Start 09/13/18 at 13:00 Dextrose (D50w Syringe) 50 ml Q15M PRN IV DECREASED GLUCOSE; Start 09/13/18 at 13:00 Glucagon (Glucagen) 1 mg Q15M PRN IM DECREASED GLUCOSE; Start 09/13/18 at 13:00 Glucose (Glutose) 15 gm Q15M PRN BUCCAL DECREASED GLUCOSE; Start 09/13/18 at 13:00 Epoetin Randolph (Epogen (Non Esrd/Non Oncology)) 6,000 units TuThSa@17 SC Last administered on 09/24/18at 16:26; Admin Dose 6,000 UNITS; Start 09/14/18 at 17:00 Sevelamer Carbonate (Renvela) 800 mg WITH MEALS PO Last administered on 09/26/18at 11:45; Admin Dose 800 MG; Start 09/14/18 at 08:00 Hydralazine HCl (Apresoline) 10 mg Q6H PRN IV ELEVATED SYSTOLIC BP Last administered on 09/25/18at 17:00; Admin Dose 10 MG; Start 09/16/18 at 11:00 Polyethylene Glycol (Miralax) 17 gm DAILY PO Last administered on 09/17/18at 08:33; Admin Dose 17 GM; Start 09/16/18 at 19:00 Clindamycin HCl/ Dextrose 50 ml @ 50 mls/hr Q8 IVPB Last administered on 09/26/18at 05:15; Admin Dose 50 MLS/HR; Start 09/18/18 at 15:30 Polyethylene Glycol (Miralax) 17 gm DAILY PRN PO constipation Last administered on 09/19/18 18:30; Admin Dose 17 GM; Start 09/19/18 at 16:30 Magnesium Hydroxide (Milk Of Mag) 30 ml BID PRN PO CONSTIPATION Last administered on 09/22/18 22:30; Admin Dose 30 ML; Start 09/19/18 at 23:00 Tramadol HCl (Ultram) 50 mg Q6H PRN PO MODERATE PAIN LEVEL 4-6; Start 09/20/18 at 16:30 Docusate Sodium (Colace) 100 mg BID PO Last administered on 09/26/18 08:16; Admin Dose 100 MG; Start 09/20/18 at 21:35 Fluticasone Propionate (Flonase 0.05% Nasal) 1 spray BID NASAL Last administered on 09/26/18 11:40; Admin Dose 1 SPRAY; Start 09/21/18 at 09:00 Hydralazine HCl (Apresoline) 100 mg TID PO Last administered on 09/26/18 12:58; Admin Dose 100 MG; Start 09/21/18 at 13:00 Morphine Sulfate (morphine) 6 mg Q4H PRN PO SEVERE PAIN LEVEL 7-10 Last ad ministered on 09/21/18 21:33; Admin Dose 6 MG; Start 09/21/18 at 14:00 Famotidine (Pepcid) 20 mg Q24H PO Last administered on 09/25/18 20:20; Admin Dose 20 MG; Start 09/21/18 at 21:00 Diagnostic Test (Pha) (Accu-Chek) 1 ea 02 XX ; Start 09/23/18 at 02:00 Diagnostic Test (Pha) (Accu-Chek) 1 ea AC MEALS XX Last administered on 09/26/18 11:40; Admin Dose 1 EA; Start 09/23/18 at 07:00 Nifedipine (Procardia Xl) 60 mg BID PO Last administered on 09/26/18 08:18; Admin Dose 60 MG; Start 09/23/18 at 21:00 Bumetanide (Bumex) 2 mg BID DIURETICS PO Last administered on 09/26/18 05:15; Admin Dose 2 MG; Start 09/24/18 at 11:30 Doxazosin Mesylate (Cardura) 4 mg HS PO Last administered on 09/25/18at 20:34; Admin Dose 4 MG; Start 09/25/18 at 21:00 YOLETTE RODRIGUEZ NP Sep 26, 2018 14:31
[2018-09-26] MEDS: EPOETIN 3000 UNITS/ML (NON ESRD/NON ONCOLOGY) SC SCH (17:46)
[2018-09-26] MEDS: FAMOTIDINE 20 MG TAB PO SCH (20:48)
[2018-09-26] MEDS: EZETIMIBE 10 MG TAB PO SCH (20:48)
[2018-09-26] MEDS: ATORVASTATIN 80 MG TAB PO SCH (20:48)
[2018-09-26] MEDS: DOXAZOSIN 4 MG TAB PO SCH (20:48)
[2018-09-26] MEDS: INSULIN GLARGINE [LANTus] (100 UNITS/ML) SYG SC SCH (20:56)
[2018-09-27] VITALS (8 sets, daily range): BP systolic 167–195; BP diastolic 73–92; PULSE 70–96; RESP 16–20
[2018-09-27] MEDS: ACCU-CHEK XX SCH ×3 (02:00→11:42)
[2018-09-27] MEDS: CLINDAMYCIN 600 MG/D5W (PMX) 50 ML IVPB SCH (06:42)
[2018-09-27] MEDS: BUMETANIDE 1 MG TAB PO SCH (06:42)
--- NOTE | 2018-09-27 07:22 | NUR ---
EOSS: Pt. a/o x4 Pt able to ambulate Hourly rounding completed No complaints of pain No significant changes noted Will endorse continuity of care to day shift
[2018-09-27] MEDS: SEVELAMER CARBONATE 800 MG TABLET PO SCH ×2 (07:32→11:42)
[2018-09-27] MEDS: INSULIN ASPART [NOVOLOG] 3 ML PEN SC SCH ×2 (07:41→11:46)
[2018-09-27] MEDS: DOCUSATE SODIUM 100 MG CAP PO SCH (08:12)
[2018-09-27] MEDS: APIXABAN 5 MG TABLET PO SCH (08:12)
[2018-09-27] MEDS: CHOLECALCIFEROL 1,000 UNIT TAB PO SCH (08:12)
[2018-09-27] MEDS: ISOSORBIDE MONONITRATE(SR)30 MG TAB PO SCH (08:13)
[2018-09-27] MEDS: NIFEdipine (XL) 60 MG TAB PO SCH (08:14)
[2018-09-27] MEDS: FLUTICASONE 0.05% 16 GM NAS SPRAY NASAL SCH (08:15)
[2018-09-27] MEDS: POLYETHYLENE GLYCOL 17 GM PACKET PO SCH (08:15)
--- NOTE | 2018-09-27 09:32 | CONS ---
Assessment/Plan Assessment/Plan Assessment/Plan (Daily) 1.Acute kidney injury on CKD III due to hemodynamics from CHF 2. acute CHF exacerbation, acute on chronic, diastolic, with fluid overload and pulmonary congestion with anasarca 3. 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 H/o HTN 5. LE edema/anasarca 6. HL 7. Anemia of chronic kidney disease Plan: BUN/Cr improved to 79/3.3,eGFR 20 , other electrolytes normal - LE edema much better but still has flank edema,- continue bumex 2mg pO BID ( at home he was on 2mg po daily )- - no losartan on discharge,Resume spironolactone 25 mg po daily( losartan can be done as outpatient after following up on BMP 1 week after discharge) - s/p 2 U PRBC transfusion on 09/19/18- Hb 8.5- on epogen 6000 units SQ TTS for anemia Continue Renvela 800mg TID for hyperphosphatemia - monitor electrolytes and replace aggressively Renal US on previous visit- unremarkable, Kidney size R 12.0, left 11.2 cm, normal echogenicity on last visit Nifedipine 60mg BID , Coreg 6.25mg PO BID, Hydralazine 100mg PO TID ok to d/c home today with PO bumex 2 mg po bid will follow up Consultation Date/Type/Reason Admit Date/Time Sep 13, 2018 at 08:45 Initial Consult Date 09/13/18 Type of Consult NEPHROLOGY Requesting Provider: LEXII REED Date/Time of Note DATE: 09/27/18 TIME: 09:29 24 HR Interval Summary Free Text/Dictation BUN/Cr improved to 79/3.3, eGFR 20,US chest neagtive for effusion Exam/Review of Systems Exam Vitals Vital Signs Date Temp Pulse Resp B/P (MAP) Pulse Ox O2 O2 Flow FiO2 Time Delivery Rate 09/27/18 96 08:34 09/27/18 Nasal 2.0 08:00 Cannula 09/27/18 98.3 20 183/85 96 07:26 (117) 09/27/18 35 01:28 Intake and Output 09/26/18 09/26/18 09/27/18 1515:00 23:00 07:00 IntakeIntake Total 360 ml 1000 ml OutputOutput Total 1300 ml BalanceBalance 360 ml -300 ml Exam GEN: awake, alert, no acute distress Respiratory: Bibasilar rales, no wheezing Cardiovascular: regular rate and rhythm, nl pulses Gastrointestinal: soft, distended Musculoskeletal: muscle tone, muscle weakness, swelling Extremities: normal pulses,1+ LE pitting edema Neurological: DISC RULER OPERATOR II-XII intact, nl mental status, nl speech, nl strength Results Result Diagram: 09/23/18 0457 09/27/18 0530 Results 24hrs Laboratory Tests Test 09/26/18 11:39 09/26/18 17:35 09/26/18 20:45 09/27/18 05:30 Bedside Glucose 105 252 H 233 H Sodium Level 144 Potassium Level 4.0 Chloride Level 108 Carbon Dioxide Level 27 Anion Gap 9 Blood Urea Nitrogen 79 H Creatinine 3.30 H Est Glomerular 20 L Filtrat Rate mL/min Glucose Level 121 Calcium Level 9.1 Test 09/27/18 06:48 09/27/18 07:31 Bedside Glucose 136 115 Medications Medication Current Medications Lorazepam (Ativan) 0.5 mg Q8H PRN PO ANXIETY; Start 09/13/18 at 12:30 Ondansetron HCl (Zofran Inj) 4 mg Q6H PRN IV NAUSEA AND/OR VOMITING Last administered on 09/16/18 21:16; Admin Dose 4 MG; Start 09/13/18 at 12:30 Nitroglycerin (Nitroglycerin (Sl Tab) 0.4 Mg) 1 tab Q5M PRN SL CHEST PAIN; Start 09/13/18 at 12:30 Acetaminophen (Tylenol Tab) 650 mg Q6H PRN PO PAIN LEVEL 1-3 OR FEVER Last administered on 09/19/18 10:02; Admin Dose 650 MG; Start 09/13/18 at 12:30 Zolpidem Tartrate (Ambien) 5 mg QHS PRN PO INSOMNIA Last administered on 09/19/18 22:47; Admin Dose 5 MG; Start 09/13/18 at 12:30 Apixaban (Eliquis) 2.5 mg BID PO Last administered on 09/27/18 08:12; Admin Dose 2.5 MG; Start 09/13/18 at 21:00 Atorvastatin Calcium (Lipitor) 80 mg QHS PO Last administered on 09/26/18at 20:48; Admin Dose 80 MG; Start 09/13/18 at 21:00 Cholecalciferol (Vitamin D) 2,000 unit DAILY PO Last administered on 09/27/18 08:12; Admin Dose 2,000 UNIT; Start 09/14/18 at 09:00 EZETIMIBE (Zetia) 10 mg HS PO Last administered on 09/26/18 20:48; Admin Dose 10 MG; Start 09/13/18 at 21:00 Insulin Glargine (Lantus) 30 units QHS SC Last administered on 09/26/18 20:56; Admin Dose 30 UNITS; Start 09/13/18 at 21:00 Isosorbide Mononitrate (Imdur) 30 mg DAILY PO Last administered on 09/27/18 08:13; Admin Dose 30 MG; Start 09/14/18 at 09:00 Spironolactone (Aldactone) 25 mg DAILY PO Last administered on 09/17/18 08:31; Admin Dose 25 MG; Start 09/14/18 at 09:00; Status Hold Insulin Aspart (Novolog Insulin Pen) 10 unit WITH MEALS SC Last administered on 09/27/18 07:41; Admin Dose 10 UNIT; Start 09/13/18 at 18:00 Miscellaneous Information 1 ea NOTE XX ; Start 09/13/18 at 13:00 Glucose (Glutose) 15 gm Q15M PRN PO DECREASED GLUCOSE; Start 09/13/18 at 13:00 Glucose (Glutose) 22.5 gm Q15M PRN PO DECREASED GLUCOSE; Start 09/13/18 at 13:00 Dextrose (D50w Syringe) 25 ml Q15M PRN IV DECREASED GLUCOSE; Start 09/13/18 at 13:00 Dextrose (D50w Syringe) 50 ml Q15M PRN IV DECREASED GLUCOSE; Start 09/13/18 at 13:00 Glucagon (Glucagen) 1 mg Q15M PRN IM DECREASED GLUCOSE; Start 09/13/18 at 13:00 Glucose (Glutose) 15 gm Q15M PRN BUCCAL DECREASED GLUCOSE; Start 09/13/18 at 13:00 Epoetin Randolph (Epogen (Non Esrd/Non Oncology)) 6,000 units TuThSa@17 SC Last administered on 09/26/18 17:46; Admin Dose 6,000 UNITS; Start 09/14/18 at 17:00 Sevelamer Carbonate (Renvela) 800 mg WITH MEALS PO Last administered on 09/27/18 07:32; Admin Dose 800 MG; Start 09/14/18 at 08:00 Hydralazine HCl (Apresoline) 10 mg Q6H PRN IV ELEVATED SYSTOLIC BP Last administered on 09/25/18 17:00; Admin Dose 10 MG; Start 09/16/18 at 11:00 Polyethylene Glycol (Miralax) 17 gm DAILY PO Last administered on 09/17/18 08:33; Admin Dose 17 GM; Start 09/16/18 at 19:00 Clindamycin HCl/ Dextrose 50 ml @ 50 mls/hr Q8 IVPB Last administered on 09/27/18 06:42; Admin Dose 50 MLS/HR; Start 09/18/18 at 15:30 Polyethylene Glycol (Miralax) 17 gm DAILY PRN PO constipation Last administered on 09/19/18 18:30; Admin Dose 17 GM; Start 09/19/18 at 16:30 Magnesium Hydroxide (Milk Of Mag) 30 ml BID PRN PO CONSTIPATION Last administered on 09/22/18 22:30; Admin Dose 30 ML; Start 09/19/18 at 23:00 Tramadol HCl (Ultram) 50 mg Q6H PRN PO MODERATE PAIN LEVEL 4-6; Start 09/20/18 at 16:30 Docusate Sodium (Colace) 100 mg BID PO Last administered on 09/27/18 08:12; Admin Dose 100 MG; Start 09/20/18 at 21:35 Fluticasone Propionate (Flonase 0.05% Nasal) 1 spray BID NASAL Last administered on 09/27/18 08:15; Admin Dose 1 SPRAY; Start 09/21/18 at 09:00 Hydralazine HCl (Apresoline) 100 mg TID PO Last administered on 09/27/18 08:14; Admin Dose 100 MG; Start 09/21/18 at 13:00 Morphine Sulfate (morphine) 6 mg Q4H PRN PO SEVERE PAIN LEVEL 7-10 Last admini stered on 09/21/18 21:33; Admin Dose 6 MG; Start 09/21/18 at 14:00 Famotidine (Pepcid) 20 mg Q24H PO Last administered on 09/26/18 20:48; Admin Dose 20 MG; Start 09/21/18 at 21:00 Diagnostic Test (Pha) (Accu-Chek) 1 ea 02 XX ; Start 09/23/18 at 02:00 Diagnostic Test (Pha) (Accu-Chek) 1 ea AC MEALS XX Last administered on 09/27/18 07:01; Admin Dose 1 EA; Start 09/23/18 at 07:00 Nifedipine (Procardia Xl) 60 mg BID PO Last administered on 09/27/18 08:14; Admin Dose 60 MG; Start 09/23/18 at 21:00 Bumetanide (Bumex) 2 mg BID DIURETICS PO Last administered on 09/27/18 06:42; Admin Dose 2 MG; Start 09/24/18 at 11:30 Doxazosin Mesylate (Cardura) 4 mg HS PO Last administered on 09/26/18 20:48; Admin Dose 4 MG; Start 09/25/18 at 21:00 LOLIS CROWDER MD Sep 27, 2018 09:31
--- NOTE | 2018-09-27 10:40 | NUR ---
CASE MANAGEMENT NOTE: S/W MD GALAN IN REGARD TO PT GOING HOME WITH PERIPHERAL LINE INSTEAD OF MIDLINE OR PICC, THIS CM CONTACTED [facility] AND [facility] ZAMARRIPA AND PER DALLIN HE WILL CONTACT HOME HEALTH AND FOLLOW UP WITH CM, WILL AWAIT FOR HIS CALL. DALLIN AT [facility] [phone] JONG ESTRADA RN,[facility] EXT [id number] Addendum: 09/27/18 at 1346 by KEILA ESTRADA RN CM NOTE DALLIN AT [facility] INFUSION MADE AWARE THAT PT IS DISCHARGING TODAY AND WILL BE HOME BEFORE 1600 TODAY.PER DALLIN HE WILL FOLLOW UP WITH THE PATIENT AND DELIVERY WILL BE MADE TODAY.
--- NOTE | 2018-09-27 12:20 | CONS ---
Consultation Date/Type/Reason Admit Date/Time Sep 13, 2018 at 08:45 Initial Consult Date 09/13/18 Type of Consult NEPHROLOGY Requesting Provider: LEXII REED Date/Time of Note DATE: 09/27/18 TIME: 12:20 Exam/Review of Systems Exam Vitals Vital Signs Date Temp Pulse Resp B/P (MAP) Pulse Ox O2 O2 Flow FiO2 Time Delivery Rate 09/27/18 80 12:17 09/27/18 98.0 20 195/92 97 Nasal 11:31 (126) Cannula 09/27/18 2.0 08:00 09/27/18 35 01:28 Intake and Output 09/26/18 09/26/18 09/27/18 1515:00 23:00 07:00 IntakeIntake Total 360 ml 1000 ml OutputOutput Total 1300 ml BalanceBalance 360 ml -300 ml Results Result Diagram: 09/23/18 0457 09/27/18 0530 Results 24hrs Laboratory Tests Test 09/26/18 17:35 09/26/18 20:45 09/27/18 05:30 09/27/18 06:48 Bedside Glucose 252 H 233 H 136 Sodium Level 144 Potassium Level 4.0 Chloride Level 108 Carbon Dioxide Level 27 Anion Gap 9 Blood Urea Nitrogen 79 H Creatinine 3.30 H Est Glomerular Filtrat 20 L Rate mL/min Glucose Level 121 Calcium Level 9.1 Test 09/27/18 07:31 09/27/18 11:41 Bedside Glucose 115 136 Medications Medication Current Medications Lorazepam (Ativan) 0.5 mg Q8H PRN PO ANXIETY; Start 09/13/18 at 12:30 Ondansetron HCl (Zofran Inj) 4 mg Q6H PRN IV NAUSEA AND/OR VOMITING Last administered on 09/16/18at 21:16; Admin Dose 4 MG; Start 09/13/18 at 12:30 Nitroglycerin (Nitroglycerin (Sl Tab) 0.4 Mg) 1 tab Q5M PRN SL CHEST PAIN; Start 09/13/18 at 12:30 Acetaminophen (Tylenol Tab) 650 mg Q6H PRN PO PAIN LEVEL 1-3 OR FEVER Last administered on 09/19/18at 10:02; Admin Dose 650 MG; Start 09/13/18 at 12:30 Zolpidem Tartrate (Ambien) 5 mg QHS PRN PO INSOMNIA Last administered on 09/19/18 22:47; Admin Dose 5 MG; Start 09/13/18 at 12:30 Apixaban (Eliquis) 2.5 mg BID PO Last administered on 09/27/18 08:12; Admin Dose 2.5 MG; Start 09/13/18 at 21:00 Atorvastatin Calcium (Lipitor) 80 mg QHS PO Last administered on 09/26/18 20:48; Admin Dose 80 MG; Start 09/13/18 at 21:00 Cholecalciferol (Vitamin D) 2,000 unit DAILY PO Last administered on 09/27/18 08:12; Admin Dose 2,000 UNIT; Start 09/14/18 at 09:00 EZETIMIBE (Zetia) 10 mg HS PO Last administered on 09/26/18 20:48; Admin Dose 10 MG; Start 09/13/18 at 21:00 Insulin Glargine (Lantus) 30 units QHS SC Last administered on 09/26/18 20:56; Admin Dose 30 UNITS; Start 09/13/18 at 21:00 Isosorbide Mononitrate (Imdur) 30 mg DAILY PO Last administered on 09/27/18 08:13; Admin Dose 30 MG; Start 09/14/18 at 09:00 Spironolactone (Aldactone) 25 mg DAILY PO Last administered on 09/17/18 08:31; Admin Dose 25 MG; Start 09/14/18 at 09:00; Status Hold Insulin Aspart (Novolog Insulin Pen) 10 unit WITH MEALS SC Last administered on 09/27/18 11:46; Admin Dose 10 UNIT; Start 09/13/18 at 18:00 Miscellaneous Information 1 ea NOTE XX ; Start 09/13/18 at 13:00 Glucose (Glutose) 15 gm Q15M PRN PO DECREASED GLUCOSE; Start 09/13/18 at 13:00 Glucose (Glutose) 22.5 gm Q15M PRN PO DECREASED GLUCOSE; Start 09/13/18 at 13:00 Dextrose (D50w Syringe) 25 ml Q15M PRN IV DECREASED GLUCOSE; Start 09/13/18 at 13:00 Dextrose (D50w Syringe) 50 ml Q15M PRN IV DECREASED GLUCOSE; Start 09/13/18 at 13:00 Glucagon (Glucagen) 1 mg Q15M PRN IM DECREASED GLUCOSE; Start 09/13/18 at 13:00 Glucose (Glutose) 15 gm Q15M PRN BUCCAL DECREASED GLUCOSE; Start 09/13/18 at 13:00 Epoetin Randolph (Epogen (Non Esrd/Non Oncology)) 6,000 units TuThSa@17 SC Last administered on 09/26/18 17:46; Admin Dose 6,000 UNITS; Start 09/14/18 at 17:00 Sevelamer Carbonate (Renvela) 800 mg WITH MEALS PO Last administered on 09/27/18 11:42; Admin Dose 800 MG; Start 09/14/18 at 08:00 Hydralazine HCl (Apresoline) 10 mg Q6H PRN IV ELEVATED SYSTOLIC BP Last administered on 09/25/18 17:00; Admin Dose 10 MG; Start 09/16/18 at 11:00 Polyethylene Glycol (Miralax) 17 gm DAILY PO Last administered on 09/17/18 08:33; Admin Dose 17 GM; Start 09/16/18 at 19:00 Clindamycin HCl/ Dextrose 50 ml @ 50 mls/hr Q8 IVPB Last administered on 09/27/18 06:42; Admin Dose 50 MLS/HR; Start 09/18/18 at 15:30 Polyethylene Glycol (Miralax) 17 gm DAILY PRN PO constipation Last administered on 09/19/18 18:30; Admin Dose 17 GM; Start 09/19/18 at 16:30 Magnesium Hydroxide (Milk Of Mag) 30 ml BID PRN PO CONSTIPATION Last administered on 09/22/18 22:30; Admin Dose 30 ML; Start 09/19/18 at 23:00 Tramadol HCl (Ultram) 50 mg Q6H PRN PO MODERATE PAIN LEVEL 4-6; Start 09/20/18 at 16:30 Docusate Sodium (Colace) 100 mg BID PO Last administered on 09/27/18 08:12; Admin Dose 100 MG; Start 09/20/18 at 21:35 Fluticasone Propionate (Flonase 0.05% Nasal) 1 spray BID NASAL Last administered on 09/27/18 08:15; Admin Dose 1 SPRAY; Start 09/21/18 at 09:00 Hydralazine HCl (Apresoline) 100 mg TID PO Last administered on 09/27/18 08:14; Admin Dose 100 MG; Start 09/21/18 at 13:00 Morphine Sulfate (morphine) 6 mg Q4H PRN PO SEVERE PAIN LEVEL 7-10 Last administered on 09/21/18 21:33; Admin Dose 6 MG; Start 09/21/18 at 14:00 Famotidine (Pepcid) 20 mg Q24H PO Last administered on 09/26/18 20:48; Admin Dose 20 MG; Start 09/21/18 at 21:00 Diagnostic Test (Pha) (Accu-Chek) 1 ea 02 XX ; Start 09/23/18 at 02:00 Diagnostic Test (Pha) (Accu-Chek) 1 ea AC MEALS XX Last administered on 09/27/18 11:42; Admin Dose 1 EA; Start 09/23/18 at 07:00 Nifedipine (Procardia Xl) 60 mg BID PO Last administered on 09/27/18 08:14; Admin Dose 60 MG; Start 09/23/18 at 21:00 Bumetanide (Bumex) 2 mg BID DIURETICS PO Last administered on 09/27/18 06:42; Admin Dose 2 MG; Start 09/24/18 at 11:30 Doxazosin Mesylate (Cardura) 4 mg HS PO Last administered on 09/26/18 20:48; Admin Dose 4 MG; Start 09/25/18 at 21:00 LOLIS CROWDER MD Sep 27, 2018 12:20
--- NOTE | 2018-09-27 12:45 | NUR ---
patient is going home and continue iv antibiotics at home with home health.case management already made arrangement .current iv acces kept in place.new tegaderm applied and flushed with normal saline .instructions given to patient and re adherence to medications and follow carbohydrate controlled diet for his blood sugars.gave his hydralazine scheduled for 1 pm .patient ready to go home.waiting for the ride.
--- NOTE | 2018-09-27 14:10 | DS ---
Date/Time of Note Date/Time of Note DATE: 09/27/18 TIME: 14:03 Discharge Summary Admission/Discharge Info Admit Date/Time Sep 13, 2018 at 08:45 Discharge Date/Time Sep 27, 2018 at 13:07 Discharge Diagnosis 1. CKD with MARIA DEL CARMEN an volume overload -Shortness of breath has improved -Continue home Bumex, Bumex was held for several days with improvement of renal function -Patient does not want dialysis -Renal was following 2. Acute respiratory failure secondary to volume overload from CKD and diastolic heart failure -Echo shows a preserved EF -Saturating well at room air -Continue home Bumex 3. Hypertension -Continue home meds but hold losartan, DC with nifedipine and Cardura 4. MRSA bacteremia - Vanco x 2 weeks from 09/19. Unclear source. Tagged WBC scan is negative, JAVIER is negative -Repeat cultures now negative -Continue clindamycin via home health, antibiotics to be given via peripheral li ne as midline/PICC contraindicated as patient will likely need an AV fistula in the near future and central lines would complicate this 5. DMII: -Continue home insulin Patient Condition: Good Hospital Course Patient is a 43 yo male with CKD IV, DHF, DMII presents with MARIA DEL CARMEN and diastolic CHF with shortness of breath and pulmonary edema. Patient was also found to have MRSA bacteremia, source was unclear as JAVIER and tagged WBC scan was negative. Patient was seen by ID and was ultimately placed on clindamycin and was continued via home health. Patient was seen by nephrology, dialysis was sug gested to assist with volume removal but patient refused. Patient does have CKD 4 at baseline, patient Bumex was held for several days renal function did slightly improved. Patient was placed back on Bumex and renal function was stable. Patient was stable for DC to home with home health for IV antibiotics which will be given via peripheral line, no midline/PICC line was placed as patient will likely need an AV graft in the near future. On the day of discharge patient's vitals, labs of exam are stable, patient has no acute complaints questions are answered. Home Meds Active Scripts Sevelamer Carbonate* (Renvela*) 800 Mg Tablet, 800 MG PO WITH MEALS, #60 TAB Prov:DAPHNE GALAN 09/26/18 Doxazosin Mesylate* (Cardura*) 4 Mg Tablet, 4 MG PO HS, #60 TAB Prov:ANGELIADAPHNE MORRISSEY 09/26/18 Nifedipine* (Nifedipine ER*) 60 Mg Tablet.sa, 60 MG PO BID, #60 TAB.SA Prov:BREANA MORALES 05/09/18 Bumetanide* (Bumetanide*) 2 Mg Tablet, 2 MG PO BID, #180 TAB Prov:LOLIS CROWDER MD 05/09/18 Reported Medications Hydralazine Hcl* (Hydralazine Hcl*) 100 Mg Tablet, 100 MG PO TID, #90 TAB 05/07/18 Potassium Chloride* (K-Dur*) 10 Meq Tab.prt.sr, 10 MEQ PO BID, TAB 05/06/18 Hydralazine Hcl* (Hydralazine Hcl*) 50 Mg Tab, 50 MG PO Q8 PRN for ELEVATED BLOOD PRESSURE, #90 TAB 05/06/18 Ezetimibe* (Zetia*) 10 Mg Tablet, 10 MG PO HS, TAB 05/06/18 Carvedilol* (Carvedilol*) 3.125 Mg Tablet, 3.125 MG PO BID, #60 TAB 05/06/18 Apixaban* (Eliquis*) 5 Mg Tablet, 5 MG PO BID, TAB 05/06/18 Isosorbide Mononitrate* (Isosorbide Mononitrate*) 30 Mg Tab.er.24h, 30 MG PO DAILY, TAB 04/16/18 Spironolactone* (Aldactone*) 25 Mg Tablet, 25 MG PO DAILY, #30 TAB 04/16/18 Cholecalciferol* (Vitamin D3*) 1,000 Unit Tablet, 2000 UNIT PO DAILY, TAB 04/16/18 Insulin Lispro (Humalog Kwikpen U-100) 100 Unit/1 Ml Insuln.pen, 10 UNIT SQ WITH MEALS, EA 04/16/18 Insulin Glargine* (Lantus*) 100 Unit/Ml Soln, 30 UNIT SC QHS, #1 VIAL 02/28/18 Atorvastatin* (Atorvastatin*) 80 Mg Tablet, 80 MG PO QHS, #30 TAB 02/07/18 Discontinued Scripts Losartan Potassium* (Cozaar*) 25 Mg Tablet, 25 MG PO DAILY, #30 TAB Prov:BREANA MORALES 05/09/18 Levofloxacin* (Levaquin*) 250 Mg Tablet, 250 MG PO DAILY@06 for 2 Days, TAB Prov:MERARY SAHU MD 05/10/18 Follow-up Plan FOLLOW UP WITH YOUR PCP IN 1-2 WEEKS, FOLLOW UP WITH HOME HEALTH Primary Care Provider [facility] Time spent on discharge: > 30 minutes DAPHNE GALAN Sep 27, 2018 14:10
== END 2018-09-27 13:07 | disposition home health service (06) | DRG 871 ==
LOC: E/R 06:46 → 6WM 08:45
PROVIDERS: ADMIT Family Medicine; ATTEND Internal Medicine
PROC: 5A09457 Assistance with Respiratory Ventilation, 24-96 Consecutive Hours, Continuous Positive Airway Pressure (ICD-10-PCS; 2018-09-14)
PROC: 30233N1 Transfusion of Nonautologous Red Blood Cells into Peripheral Vein, Percutaneous Approach (ICD-10-PCS; 2018-09-16)
PROC: B246ZZ4 Ultrasonography of Right and Left Heart, Transesophageal (ICD-10-PCS; principal; 2018-09-18 09:30)
DX: A41.9 Sepsis, unspecified organism (principal); I50.33 Acute on chronic diastolic (congestive) heart failure; J18.9 Pneumonia, unspecified organism; I13.0 Hypertensive heart and chronic kidney disease with heart failure and stage 1 through stage 4 chronic kidney disease, or unspecified chronic kidney disease; N18.4 Chronic kidney disease, stage 4 (severe); N17.9 Acute kidney failure, unspecified; M62.82 Rhabdomyolysis; E66.2 Morbid (severe) obesity with alveolar hypoventilation; B95.62 Methicillin resistant Staphylococcus aureus infection as the cause of diseases classified elsewhere; D63.1 Anemia in chronic kidney disease; D50.9 Iron deficiency anemia, unspecified; E11.22 Type 2 diabetes mellitus with diabetic chronic kidney disease; E87.70 Fluid overload, unspecified; E78.5 Hyperlipidemia, unspecified; E79.0 Hyperuricemia without signs of inflammatory arthritis and tophaceous disease; E11.21 Type 2 diabetes mellitus with diabetic nephropathy; F14.10 Cocaine abuse, uncomplicated; I48.0 Paroxysmal atrial fibrillation; M47.817 Spondylosis without myelopathy or radiculopathy, lumbosacral region; R60.1 Generalized edema; Z68.39 Body mass index [BMI] 39.0-39.9, adult; Z89.412 Acquired absence of left great toe; Z87.891 Personal history of nicotine dependence; Z91.81 History of falling; Z79.01 Long term (current) use of anticoagulants
CPT/HCPCS: 36415; 36430; 71045; 72148; 72192; 76604; 78806; 80048; 80053; 80061; 80202; 80307; 81001; 82270; 82550; 82553; 82962; 83540; 83605; 83690; 83735; 83880; 84100; 84439; 84443; 84481; 84484; 85025; 85610; 85730; 86850; 86900; 86901; 86920; 87040; 87081; 87086; 87400; 90686; 93005; 93306; 93312; 93320; 93325; 93970; 94660; 96374; 96375; A9570; J0360; J0692; J0885; J1815; J1940; J1956; J2250; J2270; J2405; J3010; J3370; J7040; P9016; P9047

== ENCOUNTER 2018-12-16 15:10 | Inpatient (IN) | payer OTHER ==
[~2018-12-16] VITALS: Ht 170.2 cm; Wt 125.0 kg
[~2018-12-16 15:10] MED LIST changes: +DOXA4TAB2 PO; -LEVO250T22 PO; -LOSA25TA2 PO; +SEVE800T7 PO
[2018-12-16 15:13] VITALS: Ht 170.2 cm; Wt 125.0 kg
[2018-12-16] MEDS ORDERED: FUROSEMIDE 40 MG INJ IV ONE (17:30)
--- NOTE | 2018-12-16 18:29 | HP ---
Date/Time of Note Date/Time of Note DATE: 12/16/18 TIME: 18:29 Assessment/Plan VTE Prophylaxis Pharmacological prophylaxis: apixaban, other Lines/Catheters [facility] Saline Lock Assessment/Plan Hospital Course Patient is a male with past medical history significant for diastolic CHF, A. fib, CKD stage IV, diabetes mellitus who presents to [facility] for generalized shortness of breath, generalized body swelling and discomfort. Patient was at his pickler helper office where he gets worked up for anemia and due to abnormal labs, patient was urged to go to the ER to be admitted. Currently patient states that recently even though he has been taking all his medications he feels like his lower extremity has become more more swollen and difficult to move and also he has worsening shortness of breath with exertion. Patient currently denies any chest pain. Patient also denies nausea, vomiting, abdominal pain patient denies headache or vision changes Objective Physical exam General: Patient is laying in bed and answers questions appropriately Mentation: Patient is alert and oriented 4, Head: Normocephalic atraumatic Eyes: EOMI, pupils reactive to light Neck: Supple, nontender, midline Respiratory: Coarse to auscultation bilaterally Cardiovascular: regular rate, no obvious murmurs Gastrointestinal: non-tender to palpation, bowel sounds heard. Neurological: Moves all extremities spontaneously Skin: Anasarca Assessment and plan Acute on chronic congestive heart failure, diastolic -Lasix -We will consult patient's gore maker, Dr. Sanon -Echo -Breathing treatments as needed Acute on chronic kidney disease -Patient has a diagnosis of stage IV kidney disease however patient states that his outpatient furniture restorer stated that he is not in need of dialysis at this point -Nephrology will be consulted -IV Lasix, adjust per furniture restorer Generalized anasarca -Patient has this issue from time to time on a normal basis, will continue IV diuretics, cardiology and nephrology to help manage -Likely a combination from his CHF as well as chronic kidney disease Anemia -Chronic -Follows up with outpatient pickler helper, monitor closely -Near baseline, no signs of acute bleed A. fib -Continue home meds -Continue Eliquis Diabetes mellitus -Continue Lantus and insulin sliding scale with mealtime insulin Disposition -Follow-up with cardiology and nephrology recommendations, continue diuretics. Result Diagram: 12/16/18 1549 12/16/18 1549 Results 24hrs Laboratory Tests Test 12/16/18 15:49 White Blood Count 7.4 Red Blood Count 3.17 L Hemoglobin 8.2 L Hematocrit 26.3 L Mean Corpuscular Volume 83.0 Mean Corpuscular Hemoglobin 25.9 L Mean Corpuscular Hemoglobin Concent 31.2 L Red Cell Distribution Width 14.4 Platelet Count 182 Mean Platelet Volume 10.4 Immature Granulocytes % 0.400 Neutrophils % 67.3 Lymphocytes % 13.1 L Monocytes % 11.1 H Eosinophils % 7.7 H Basophils % 0.4 Nucleated Red Blood Cells % 0.0 Immature Granulocytes # 0.030 Neutrophils # 5.0 Lymphocytes # 1.0 Monocytes # 0.8 Eosinophils # 0.6 H Basophils # 0.0 Nucleated Red Blood Cells # 0.0 Prothrombin Time 12.9 Prothrombin Time Ratio 1.0 INR International Normalized Ratio 0.96 Activated Partial Thromboplast Time 59.2 H Sodium Level 140 Potassium Level 5.0 Chloride Level 105 Carbon Dioxide Level 27 Anion Gap 8 Blood Urea Nitrogen 78 H Creatinine 4.16 H Est Glomerular Filtrat Rate mL/min 16 L Glucose Level 56 L Calcium Level 9.2 Troponin I < 0.012 B-Type Natriuretic Peptide 2810 H HPI/ROS Admit Date/Time Admit Date/Time PMH/Family/Social Past Medical History Coded Allergies: ibuprofen (Unverified Allergy, Mild, 12/16/18) Past Surgical History Past Surgical Hx: other Family History Significant Family History: no pertinent family hx Social History Smoking Status: Never smoker Exam/Review of Systems Vital Signs Vitals Vital Signs Date Temp Pulse Resp B/P (MAP) Pulse Ox O2 O2 Flow FiO2 Time Delivery Rate 12/16/18 70 20 145/71 99 Room Air 17:02 (95) 12/16/18 98.4 15:13 TREY MONTEJO Dec 16, 2018 18:29
[2018-12-16] MEDS ORDERED: ALBUTEROL/IPRATROPIUM (NEB) 3 ML AMP HHN PRN (18:30)
[2018-12-16] MEDS ORDERED: HYDROCODONE/APAP (5/325) TAB PO PRN (18:30)
[2018-12-16] MEDS ORDERED: ACETAMINOPHEN 325 MG TAB PO PRN (18:30)
[2018-12-16] MEDS ORDERED: NACL 0.9% 3 ML SYG IV SCH (18:30)
[2018-12-16] MEDS ORDERED: ONDANSETRON 4 MG INJ IV PRN (18:30)
[2018-12-16] MEDS ORDERED: DEXTROSE 50% 50 ML SYRINGE IV PRN ×2 (19:00)
[2018-12-16] MEDS ORDERED: GLUCOSE GEL 15 GRAM TUBE BUCCAL PRN (19:00)
[2018-12-16] MEDS ORDERED: GLUCOSE GEL 15 GRAM TUBE PO PRN ×2 (19:00)
[2018-12-16] MEDS ORDERED: GLUCAGON 1 MG INJ IM PRN (19:00)
--- NOTE | 2018-12-16 19:28 | ERD ---
ER Documentation Chief Complaint Chief Complaint generalize edema and shortness of breath sent by dr Yvette ARREOLA The patient is a 43-year-old male, presenting to the ER because he has gained weight in 3 days, from 265 lbs to 277 lbs. He c/o general edema/dyspnea/bilateral edema/PND for the last week, complains of chronic orthopnea. He denies fever, chills, neck pain, chest pain, complains of constipation and does not urinate much. He smokes, denies drinking, does cocaine Past medical history: Chronic kidney disease, history of CHF, diabetes mellitus, hypertension, history of right pleural effusion status post thoracentesis Past surgical history: Left great toe amputation ROS All systems reviewed and are negative except as per history of present illness. Medications Home Meds Active Scripts Sevelamer Carbonate* (Renvela*) 800 Mg Tablet, 800 MG PO WITH MEALS, #60 TAB Prov:DAPHNE GALAN 09/26/18 Doxazosin Mesylate* (Cardura*) 4 Mg Tablet, 4 MG PO HS, #60 TAB Prov:DAPHNE GALAN 09/26/18 Nifedipine* (Nifedipine ER*) 60 Mg Tablet.sa, 60 MG PO BID, #60 TAB.SA Prov:BREANA MORALES 05/09/18 Bumetanide* (Bumetanide*) 2 Mg Tablet, 2 MG PO BID, #180 TAB Prov:LOLIS CROWDER MD 05/09/18 Reported Medications Hydralazine Hcl* (Hydralazine Hcl*) 100 Mg Tablet, 100 MG PO TID, #90 TAB 05/07/18 Potassium Chloride* (K-Dur*) 10 Meq Tab.prt.sr, 10 MEQ PO BID, TAB 05/06/18 Hydralazine Hcl* (Hydralazine Hcl*) 50 Mg Tab, 50 MG PO Q8 PRN for ELEVATED BLOOD PRESSURE, #90 TAB 05/06/18 Ezetimibe* (Zetia*) 10 Mg Tablet, 10 MG PO HS, TAB 05/06/18 Carvedilol* (Carvedilol*) 3.125 Mg Tablet, 3.125 MG PO BID, #60 TAB 05/06/18 Apixaban* (Eliquis*) 5 Mg Tablet, 5 MG PO BID, TAB 05/06/18 Isosorbide Mononitrate* (Isosorbide Mononitrate*) 30 Mg Tab.er.24h, 30 MG PO DAILY, TAB 04/16/18 Spironolactone* (Aldactone*) 25 Mg Tablet, 25 MG PO DAILY, #30 TAB 04/16/18 Cholecalciferol* (Vitamin D3*) 1,000 Unit Tablet, 2000 UNIT PO DAILY, TAB 04/16/18 Insulin Lispro (Humalog Kwikpen U-100) 100 Unit/1 Ml Insuln.pen, 15 UNIT SQ WITH MEALS, EA 04/16/18 Insulin Glargine* (Lantus*) 100 Unit/Ml Soln, 30 UNIT SC QHS, #1 VIAL 02/28/18 Atorvastatin* (Atorvastatin*) 80 Mg Tablet, 80 MG PO QHS, #30 TAB 02/07/18 Allergies Allergies: Coded Allergies: ibuprofen (Unverified Allergy, Mild, 12/16/18) PMhx/Soc History of Surgery: Yes (AMPUTATED LT. BIG TOE AND LT.EYE SURGERY.) Anesthesia Reaction: No Hx Neurological Disorder: No Hx Respiratory Disorders: Yes (SLEEPING APNEA.) Hx Cardiac Disorders: Yes (CHF.) Hx Psychiatric Problems: No Hx Miscellaneous Medical Probl: Yes (DM) Hx Alcohol Use: No Hx Substance Use: No Hx Tobacco Use: No Smoking Status: Never smoker Physical Exam Vitals Vital Signs Date Temp Pulse Resp B/P (MAP) Pulse Ox O2 O2 Flow FiO2 Time Delivery Rate 12/16/18 74 14 157/74 99 Room Air 18:26 (101) 12/16/18 70 20 145/71 99 Room Air 17:02 (95) 12/16/18 73 22 144/79 98 Room Air 15:40 (100) 12/16/18 98.4 76 18 141/68 97 15:13 (92) Physical Exam Const: No acute distress. Head: Atraumatic. Eyes: Normal Conjunctiva. ENT: Normal External Ears, Nose and Mouth. Neck: Full range of motion. No meningismus. Resp: Bibasilar crackle Cardio: Regular rate and rhythm. Abd: Soft, non distended, normal bowel sounds, non tender. Skin: No petechiae or rashes. Back: No midline or flank tenderness. Ext: bilateral leg edema with mild calf tenderness Neur: Awake and alert. No focal deficit Psych: Normal Mood and Affect. Result Diagram: 12/16/18 1549 12/16/18 1549 Results 24 hrs Laboratory Tests Test 12/16/18 15:49 White Blood Count 7.4 10^3/ul Red Blood Count 3.17 10^6/ul Hemoglobin 8.2 g/dl Hematocrit 26.3 % Mean Corpuscular Volume 83.0 fl Mean Corpuscular Hemoglobin 25.9 pg Mean Corpuscular Hemoglobin Concent 31.2 g/dl Red Cell Distribution Width 14.4 % Platelet Count 182 10^3/UL Mean Platelet Volume 10.4 fl Immature Granulocytes % 0.400 % Neutrophils % 67.3 % Lymphocytes % 13.1 % Monocytes % 11.1 % Eosinophils % 7.7 % Basophils % 0.4 % Nucleated Red Blood Cells % 0.0 /100WBC Immature Granulocytes # 0.030 10^3/ul Neutrophils # 5.0 10^3/ul Lymphocytes # 1.0 10^3/ul Monocytes # 0.8 10^3/ul Eosinophils # 0.6 10^3/ul Basophils # 0.0 10^3/ul Nucleated Red Blood Cells # 0.0 10^3/ul Prothrombin Time 12.9 Sec Prothrombin Time Ratio 1.0 INR International Normalized Ratio 0.96 Activated Partial Thromboplast Time 59.2 Sec Sodium Level 140 mmol/L Potassium Level 5.0 mmol/L Chloride Level 105 mmol/L Carbon Dioxide Level 27 mmol/L Anion Gap 8 Blood Urea Nitrogen 78 mg/dl Creatinine 4.16 mg/dl Est Glomerular Filtrat Rate mL/min 16 mL/min Glucose Level 56 mg/dl Calcium Level 9.2 mg/dl Troponin I < 0.012 ng/ml B-Type Natriuretic Peptide 2810 PG/ML Current Medications Medications Dose Sig/Kuldeep Start Time Status Last (Trade) Ordered Route PRN Stop Time Admin Dose Reason Admin Furosemide 80 mg ONCE ONCE 12/16/18 DC 12/16/18 (Lasix) IV 17:30 17:24 12/16/18 17:31 Apixaban 5 mg BID PO 12/16/18 (Eliquis) 21:00 80 mg QHS PO 12/16/18 Atorvastatin 21:00 Calcium (Lipitor) Carvedilol 3.125 mg BID PO 12/16/18 (Coreg) 21:00 2,000 unit DAILY PO 12/17/18 Cholecalcifer 09:00 ol (Vitamin D) Doxazosin 4 mg HS PO 12/16/18 Mesylate 21:00 (Cardura) EZETIMIBE 10 mg HS PO 12/16/18 (Zetia) 21:00 Hydralazine 100 mg TID PO 12/16/18 HCl 21:00 (Apresoline) Isosorbide 30 mg DAILY PO 12/17/18 Mononitrate 09:00 (Imdur) Nifedipine 60 mg BID PO 12/16/18 (Procardia 21:00 Xl) Sevelamer 0.8 gm WITH MEALS 12/17/18 Carbonate PO 08:00 (Renvela) 25 mg DAILY PO 12/17/18 Spironolacton 09:00 e (Aldactone) Furosemide 40 mg BID 12/17/18 (Lasix) DIURETICS 06:00 IV IV Flush 3 ml PER 12/16/18 (NS 3 ml) PROTOCOL IV 18:30 Ondansetron 4 mg Q6H PRN 12/16/18 HCl (Zofran IV 18:30 Inj) NAUSEA/VOMITI NG 650 mg Q6H PRN 12/16/18 Acetaminophen PO .PAIN 1-3 18:30 (Tylenol OR TEMP Tab) 1 tab Q6H PRN 12/16/18 Acetaminophen PO .PAIN 4-6 18:30 / Hydrocodone Bitart ([place] (5/325)) Morphine 2 mg Q4H PRN 12/16/18 Sulfate IV .PAIN 18:30 (morphine) 7-10 Albuterol/ 3 ml Q2H RESP 12/16/18 Ipratropium THERAPY PRN 18:30 (Duoneb) HHN shortness of breath Discontinue ONCE ONCE 12/16/18 DC Miscellaneous current oral XX 18:30 sulfonylur... 12/16/18 19:02 Information (* Miscellaneous Pharmacy Order) Diagnostic 1 ea 02 XX 12/17/18 Test (Pha) 02:00 (Accu-Chek) Insulin 31 units DAILY@199912/16/18 Glargine SC 20:00 (Lantus) Insulin 13 unit WITH MEALS 12/17/18 Aspart SC 08:00 (Novolog Insulin Pen) ONCE ONCE 12/16/18 DC Miscellaneous HYPOGLYCEMIA XX 18:30 PROTOCOL 12/16/18 19:02 Information w... (* Miscellaneous Pharmacy Order) Insulin NOVOLOG WITH MEALS 12/16/18 Aspart *MILD* BEDTIME SC 21:00 (Novolog ALGORITHM Insulin Pen) Discontinue ONCE ONCE 12/16/18 DC Miscellaneous all previ... XX 18:30 12/16/18 19:02 Information (* Miscellaneous Pharmacy Order) 1 ea NOTE XX 12/16/18 Miscellaneous 19:00 Information Glucose 15 gm Q15M PRN 12/16/18 (Glutose) PO DECREASED 19:00 GLUCOSE Glucose 22.5 gm Q15M PRN 12/16/18 (Glutose) PO DECREASED 19:00 GLUCOSE Dextrose 25 ml Q15M PRN 12/16/18 (D50w IV DECREASED 19:00 Syringe) GLUCOSE Dextrose 50 ml Q15M PRN 12/16/18 (D50w IV DECREASED 19:00 Syringe) GLUCOSE Glucagon 1 mg Q15M PRN 12/16/18 (Glucagen) IM DECREASED 19:00 GLUCOSE Glucose 15 gm Q15M PRN 12/16/18 (Glutose) BUCCAL 19:00 DECREASED GLUCOSE Procedures/[place] [address] Radiology Main Line: [phone] DIAGNOSTIC IMAGING REPORT Patient: TOSHIA TOTH : 1975 Age: 43 Sex: M MR #: [id number] DOS: 12/16/18 1601 Ordering MD: RODDY KHALIL MD Location: E/R Room/Bed: PROCEDURE: Ultrasound of the bilateral lower extremity venous system. CLINICAL INDICATION: Bilateral leg pain and swelling. TECHNIQUE: Goodrich scale with and without compression, color doppler, spectral doppler of the venous system of the bilateral lower extremities was performed. Venous augmentation maneuvers were utilized. COMPARISON: Previous lower extremity venous ultrasound from 09/16/2018. FINDINGS: RIGHT: Common femoral vein: Patent and compressible. Femoral vein: Patent and compressible. Popliteal vein: Patent and compressible. Visualized calf veins: Patent and compressible. Soft tissues: Normal LEFT: Common femoral vein: Patent and compressible. Femoral vein: Patent and compressible. Popliteal vein: Patent and compressible. Visualized calf veins: Patent and compressible. Soft tissues: Normal IMPRESSION: 1. No evidence of deep vein thrombosis. RPTAT: AAC Physician Sonia Date Time Electronically viewed and signed by Henry Lazo Physician on 12/16/2018 17:04 JH/ CC: RODDY KHALIL MD [id number] [place] [address] Radiology Main Line: [phone] DIAGNOSTIC IMAGING REPORT Patient: TOSHIA TOTH : 1975 Age: 43 Sex: M MR #: [id number] DOS: 12/16/18 1541 Ordering MD: RODDY KHALIL MD Location: E/R Room/Bed: PROCEDURE: Chest xray. CLINICAL INDICATION: Shortness of breath TECHNIQUE: A portable semiupright AP view of the chest was obtained. COMPARISON: 09/21/2018 FINDINGS: There is stable mild enlargement of the cardiac silhouette. The lungs are well expanded and show normal vascularity. No focal opacity, pleural effusion, or pneumothorax is identified. The skeletal structures and soft tissues are unremarkable. IMPRESSION: Stable mild cardiomegaly. Otherwise, no acute intrathoracic abnormality. RPTAT:PP .Mariaa Hernandez MD, Date Time Electronically viewed and signed by .Mariaa Hernandez MD, on 12/16/2018 15:57 .K/ CC: RODDY KHALIL MD [phone] EKG: Read by emergency physician Rate/Rhythm: Normal Sinus Rhythm 76 beats/min QRS, ST, T-waves: No ST elevation, no T inversion Impression: Normal EKG MEDICAL MAKING DECISION: The patient is a 43-year-old male, presenting with acute CHF, acute on chronic kidney disease, his creatinine on September 27, 2018 was 3.3, today is 4.2. He was treated with Lasix 80 mg IV for acute CHF with good response. The differential diagnoses considered include but are not limited to asthma, COPD, pneumonia, pulmonary embolus, pleural effusion, congestive heart failure. Departure Diagnosis: Primary Impression: CHF (congestive heart failure) Additional Impressions: Acute on chronic kidney failure Anemia Condition: Stable Comments I discussed the findings with the patient. I discussed the patient with Dr Adams at 5:15 p , who was made aware of the lab, the treatment, the patient condition. The patient is admitted to [facility] Disclaimer: Inadvertent spelling and grammatical errors are likely due to EHR/dictation software use and do not reflect on the overall quality of patient care. Also, please note that the electronic time recorded on this note does not necessarily reflect the actual time of the patient encounter. RODDY KHALIL MD Dec 16, 2018 19:28
[2018-12-16 20:52] VITALS: BP 174/82; PULSE 78; RESP 19
[2018-12-16] MEDS: INSULIN ASPART [NOVOLOG] 3 ML PEN SC SCH (21:00)
[2018-12-16] MEDS: ATORVASTATIN 80 MG TAB PO SCH (21:19)
[2018-12-16] MEDS: NIFEdipine (XL) 60 MG TAB PO SCH (21:19)
[2018-12-16] MEDS: APIXABAN 5 MG TABLET PO SCH (21:21)
[2018-12-16] MEDS: EZETIMIBE 10 MG TAB PO SCH (21:21)
[2018-12-16] MEDS: DOXAZOSIN 4 MG TAB PO SCH (21:22)
[2018-12-16 21:25] VITALS: PULSE 86
[2018-12-17] VITALS (9 sets, daily range): BP systolic 130–166; BP diastolic 67–84; PULSE 71–82; RESP 18–19
[2018-12-17] MEDS: INSULIN GLARGINE [LANTus] (100 UNITS/ML) SYG SC SCH ×2 (01:14→21:16)
[2018-12-17] MEDS: ACCU-CHEK XX SCH (02:00)
[2018-12-17] MEDS: FUROSEMIDE 40 MG INJ IV SCH ×2 (06:31→17:43)
[2018-12-17] MEDS: SEVELAMER CARBONATE 0.8 GM PKT PO SCH ×3 (08:06→17:42)
[2018-12-17] MEDS: INSULIN ASPART [NOVOLOG] 3 ML PEN SC SCH ×7 (08:08→21:00)
[2018-12-17] MEDS ORDERED: POTASSIUM CHLORIDE (SR) 20 MEQ TAB PO STA (08:14)
[2018-12-17] MEDS: ISOSORBIDE MONONITRATE(SR)30 MG TAB PO SCH (08:16)
[2018-12-17] MEDS: SPIRONOLACTONE 25 MG TAB PO SCH (08:16)
[2018-12-17] MEDS: CHOLECALCIFEROL 2,000 UNIT CAP PO SCH (08:16)
[2018-12-17] MEDS: APIXABAN 5 MG TABLET PO SCH ×2 (08:16→21:05)
[2018-12-17] MEDS: NIFEdipine (XL) 60 MG TAB PO SCH ×2 (08:17→21:07)
[2018-12-17] MEDS: morphine 2 MG INJ IV PRN ×3 (08:18→23:00)
[2018-12-17] MEDS ORDERED: METOLAZONE 5 MG TAB PO ONE (08:30)
--- NOTE | 2018-12-17 08:33 | CONS ---
DATE OF ADMISSION: 12/16/2018 DATE OF CONSULTATION: 12/17/2018 TYPE OF CONSULTATION: Nephrology. REASON FOR CONSULTATION: Chronic kidney disease, volume overload. REQUESTING PHYSICIAN: Dr. Adams. HISTORY OF PRESENT ILLNESS: This is a 43-year-old male with a past medical history of chronic kidney disease stage IV. The patient sees a primary coppersmith apprentice, Dr. Willoughby in outpatient setting. Histo ry of heart failure, atrial fibrillation, diabetes who presents to [facility] with generalized shortness of breath and lower extremity swelling. The patient was noted to have increase d swelling over the past several days. As a result, he came into the emergency room for evaluation. Upon arrival, the patient had a chest x-ray, which showed findings of cardiomegaly. The patient had Doppler lower extremity ultrasound, which was negative for deep vein thrombosis. The patient was pl aced on diuretic therapy and admitted to telemetry for evaluation. In terms of patient's renal history, the patient has underlying chronic kidney disease stage IV and h as been stable per primary coppersmith apprentice. The patient describes typically taking diuretics daily and watching his weight. However, over the past several days, he has noted increased swelling, necessita ting admission to the hospital. The patient denies any hemoptysis, hematemesis or hematochezia. PAST MEDICAL HISTORY: See above, history of chronic kidney disease stage IV, history of anemia, hist ory of hypertension, history of heart failure, history of atrial fibrillation, history of diabetes. PAST SURGICAL HISTORY: Status post left great toe amputation. FAMILY HISTORY: No family history of kidney disease. SOCIAL HISTORY: He does not drink, smoke or do drugs. MEDICATIONS: The patient's medications have been reviewed. ALLERGIES: PLEASE SEE LIST. REVIEW OF SYSTEMS: A 14-point review of systems was conducted. Pertinent positives stated in HPI, o therwise negative. PHYSICAL EXAMINATION: VITAL SIGNS: Blood pressure is 157/80, respirations 19, pulse 79, temperature 98.6. HEENT: Head is normocephalic. NECK: Supple. Positive JVD. HEART: Regular rate. LUNGS: Show diminished breath sounds at the base. ABDOMEN: Soft, nontender to palpation without rebound or guarding. EXTREMITIES: Negative for clubbing, cyanosis. Positive edema. DERMATOLOGIC: No rashes. MUSCULOSKELETAL: No joint effusion. NEUROLOGIC: No focal deficits. MEDICATIONS: The patient's medications have been reviewed. LABORATORY DATA: Shows sodium 142, potassium 3.4, BUN 75, creatinine 3.97. White count is 6.6, hemo globin 8.5, platelet count 169. IMAGING STUDIES: Reviewed. ASSESSMENT AND PLAN: This is a 43-year-old male who presents with: 1. Chronic kidney disease stage IV with a baseline creatinine of around 4 mg/dL per patient, with a questionable component of acute kidney injury. The patient's renal function appears to be at or near baseline. Possible etiology of acute kidney injury could be hemodynamics, cardiorenal syndrome, pos sible progression of chronic kidney disease. Plan is to do a full evaluation. We will check a UA wi th microanalysis, check urine electrolytes, quantify patient's proteinuria. We would continue diuret ic regimen, monitor renal function, and electrolytes closely. 2. Volume overload. Etiology is secondary to chronic kidney disease, congestive heart failure. We would continue the patient on current diuretic regimen. Monitor electrolytes and renal function clos beatriz. 3. Anemia. Continue to monitor hemoglobin and hematocrit levels. 4. Mineral bone disorder, monitor calcium and phosphorus levels. 5. Acute heart failure. Continue medical management as stated above. We would rule out etiology of possible exacerbation, questionable dietary noncompliance, questionable acute coronary syndrome. Mo nitor closely. 6. Hypertension. Continue current blood pressure regimen. 7. Diabetes. Continue current insulin regimen. 8. Atrial fibrillation. Continue current treatment plan. Thank you, Dr. Adams, for this interesting consult. It will be a pleasure to follow the patient with pola marie throughout the hospital course. Dictated By: LUIS DICKINSON DO NR/NTS Conf#: [id number] DID#: [id number] CC: TREY ADAMS MD;*EndCC*
--- NOTE | 2018-12-17 09:05 | CONS ---
Consultation Date/Type/Reason Admit Date/Time Type of Consult Cardiology Date/Time of Note DATE: 12/17/18 TIME: 09:05 Hx of Present Illness CHF with ARF - defer to renal team for diuresis - will follow r/o [place] # [id number] Past Medical History Home Meds Active Scripts Sevelamer Carbonate* (Renvela*) 800 Mg Tablet, 800 MG PO WITH MEALS, #60 TAB Prov:DELONTE GALANAnette 09/26/18 Doxazosin Mesylate* (Cardura*) 4 Mg Tablet, 4 MG PO HS, #60 TAB Prov:ANGELIADAPHNE MORRISSEY 09/26/18 Nifedipine* (Nifedipine ER*) 60 Mg Tablet.sa, 60 MG PO BID, #60 TAB.SA Prov:BREANA MORALES 05/09/18 Bumetanide* (Bumetanide*) 2 Mg Tablet, 2 MG PO BID, #180 TAB Prov:LOLIS CROWDER MD 05/09/18 Reported Medications Hydralazine Hcl* (Hydralazine Hcl*) 100 Mg Tablet, 100 MG PO TID, #90 TAB 05/07/18 Potassium Chloride* (K-Dur*) 10 Meq Tab.prt.sr, 10 MEQ PO BID, TAB 05/06/18 Hydralazine Hcl* (Hydralazine Hcl*) 50 Mg Tab, 50 MG PO Q8 PRN for ELEVATED BLOOD PRESSURE, #90 TAB 05/06/18 Ezetimibe* (Zetia*) 10 Mg Tablet, 10 MG PO HS, TAB 05/06/18 Carvedilol* (Carvedilol*) 3.125 Mg Tablet, 3.125 MG PO BID, #60 TAB 05/06/18 Apixaban* (Eliquis*) 5 Mg Tablet, 5 MG PO BID, TAB 05/06/18 Isosorbide Mononitrate* (Isosorbide Mononitrate*) 30 Mg Tab.er.24h, 30 MG PO DAILY, TAB 04/16/18 Spironolactone* (Aldactone*) 25 Mg Tablet, 25 MG PO DAILY, #30 TAB 04/16/18 Cholecalciferol* (Vitamin D3*) 1,000 Unit Tablet, 2000 UNIT PO DAILY, TAB 04/16/18 Insulin Lispro (Humalog Kwikpen U-100) 100 Unit/1 Ml Insuln.pen, 15 UNIT SQ WITH MEALS, EA 04/16/18 Insulin Glargine* (Lantus*) 100 Unit/Ml Soln, 30 UNIT SC QHS, #1 VIAL 02/28/18 Atorvastatin* (Atorvastatin*) 80 Mg Tablet, 80 MG PO QHS, #30 TAB 02/07/18 Medications Current Medications Apixaban (Eliquis) 5 mg BID PO Last administered on 12/17/18 08:16; Admin Dose 5 MG; Start 12/16/18 at 21:00 Atorvastatin Calcium (Lipitor) 80 mg QHS PO Last administered on 12/16/18 21:19; Admin Dose 80 MG; Start 12/16/18 at 21:00 Carvedilol (Coreg) 3.125 mg BID PO Last administered on 12/17/18 08:17; Admin Dose 3.125 MG; Start 12/16/18 at 21:00 Cholecalciferol (Vitamin D) 2,000 unit DAILY PO Last administered on 12/17/18 08:16; Admin Dose 2,000 UNIT; Start 12/17/18 at 09:00 Doxazosin Mesylate (Cardura) 4 mg HS PO Last administered on 12/16/18 21:22; Admin Dose 4 MG; Start 12/16/18 at 21:00 EZETIMIBE (Zetia) 10 mg HS PO Last administered on 12/16/18 21:21; Admin Dose 10 MG; Start 12/16/18 at 21:00 Hydralazine HCl (Apresoline) 100 mg TID PO Last administered on 12/17/18 08:16; Admin Dose 100 MG; Start 12/16/18 at 21:00 Isosorbide Mononitrate (Imdur) 30 mg DAILY PO Last administered on 12/17/18 08:16; Admin Dose 30 MG; Start 12/17/18 at 09:00 Nifedipine (Procardia Xl) 60 mg BID PO Last administered on 12/17/18 08:17; Admin Dose 60 MG; Start 12/16/18 at 21:00 Sevelamer Carbonate (Renvela) 0.8 gm WITH MEALS PO Last administered on 12/17/18 08:06; Admin Dose 0.8 GM; Start 12/17/18 at 07:55 Spironolactone (Aldactone) 25 mg DAILY PO Last administered on 12/17/18 08:16; Admin Dose 25 MG; Start 12/17/18 at 09:00 Furosemide (Lasix) 40 mg BID DIURETICS IV Last administered on 12/17/18 06:31; Admin Dose 40 MG; Start 12/17/18 at 06:00 IV Flush (NS 3 ml) 3 ml PER PROTOCOL IV ; Start 12/16/18 at 18:30 Ondansetron HCl (Zofran Inj) 4 mg Q6H PRN IV NAUSEA/VOMITING; Start 12/16/18 at 18:30 Acetaminophen (Tylenol Tab) 650 mg Q6H PRN PO .PAIN 1-3 OR TEMP; Start 12/16/18 at 18:30 Acetaminophen/ Hydrocodone Bitart ([place] (5/325)) 1 tab Q6H PRN PO .PAIN 4-6; Start 12/16/18 at 18:30 Morphine Sulfate (morphine) 2 mg Q4H PRN IV .PAIN 7-10 Last administered on 12/17/18at 08:18; Admin Dose 2 MG; Start 12/16/18 at 18:30 Albuterol/ Ipratropium (Duoneb) 3 ml Q2H RESP THERAPY PRN HHN shortness of breath; Start 12/16/18 at 18:30 Diagnostic Test (Pha) (Accu-Chek) 1 ea 02 XX Last administered on 12/17/18at 02:00; Admin Dose 1 EA; Start 12/17/18 at 02:00 Insulin Glargine (Lantus) 31 units DAILY@2000 SC Last administered on 12/17/18at 01:14; Admin Dose 31 UNITS; Start 12/16/18 at 20:00 Insulin Aspart (Novolog Insulin Pen) 13 unit WITH MEALS SC Last administered on 12/17/18 08:09; Admin Dose 13 UNIT; Start 12/17/18 at 07:55 Insulin Aspart (Novolog Insulin Pen) NOVOLOG *MILD* ALGORITHM WITH MEALS BEDTIME SC Last administered on 12/17/18at 08:08; Admin Dose 1 UNIT; Start at 21:00 Miscellaneous Information 1 ea NOTE XX ; Start 12/16/18 at 19:00 Glucose (Glutose) 15 gm Q15M PRN PO DECREASED GLUCOSE; Start 12/16/18 at 19:00 Glucose (Glutose) 22.5 gm Q15M PRN PO DECREASED GLUCOSE; Start 12/16/18 at 19:00 Dextrose (D50w Syringe) 25 ml Q15M PRN IV DECREASED GLUCOSE; Start 12/16/18 at 19:00 Dextrose (D50w Syringe) 50 ml Q15M PRN IV DECREASED GLUCOSE; Start 12/16/18 at 19:00 Glucagon (Glucagen) 1 mg Q15M PRN IM DECREASED GLUCOSE; Start 12/16/18 at 19:00 Glucose (Glutose) 15 gm Q15M PRN BUCCAL DECREASED GLUCOSE; Start 12/16/18 at 19:00 Allergies: Coded Allergies: ibuprofen (Unverified Allergy, Mild, 12/16/18) Uncoded Allergies: seafood (Allergy, Severe, red rashes whole body, 12/16/18) Past Surgical History Past Surgical Hx: other Social History Smoking Status: Never smoker Exam/Review of Systems Vital Signs Vitals Vital Signs Date Temp Pulse Resp B/P (MAP) Pulse Ox O2 O2 Flow FiO2 Time Delivery Rate 12/17/18 81 08:01 12/17/18 98.6 19 157/80 95 Room Air 07:26 (105) Labs Result Diagram: 12/17/18 0553 12/17/18 0553 Results 24hrs Laboratory Tests Test 12/16/18 15:49 12/16/18 19:45 12/16/18 21:24 12/17/18 03:38 White Blood Count 7.4 Red Blood Count 3.17 L Hemoglobin 8.2 L Hematocrit 26.3 L Mean Corpuscular 83.0 Volume Mean Corpuscular 25.9 L Hemoglobin Mean Corpuscular 31.2 L Hemoglobin Concent Red Cell 14.4 Distribution Width Platelet Count 182 Mean Platelet Volume 10.4 Immature 0.400 Granulocytes % Neutrophils % 67.3 Lymphocytes % 13.1 L Monocytes % 11.1 H Eosinophils % 7.7 H Basophils % 0.4 Nucleated Red Blood 0.0 Cells % Immature 0.030 Granulocytes # Neutrophils # 5.0 Lymphocytes # 1.0 Monocytes # 0.8 Eosinophils # 0.6 H Basophils # 0.0 Nucleated Red Blood 0.0 Cells # Prothrombin Time 12.9 Prothrombin Time 1.0 Ratio INR International 0.96 Normalized Ratio Activated 59.2 H Partial Thromboplast Time Sodium Level 140 Potassium Level 5.0 Chloride Level 105 Carbon Dioxide Level 27 Anion Gap 8 Blood Urea Nitrogen 78 H Creatinine 4.16 H Est Glomerular 16 L Filtrat Rate mL/min Glucose Level 56 L Calcium Level 9.2 Troponin I < 0.012 B-Type Natriuretic 2810 H Peptide Bedside Glucose 75 144 159 Test 12/17/18 05:53 12/17/18 07:57 White Blood Count 6.6 Red Blood Count 3.30 L Hemoglobin 8.5 L Hematocrit 26.8 L Mean Corpuscular 81.2 L Volume Mean Corpuscular 25.8 L Hemoglobin Mean Corpuscular 31.7 L Hemoglobin Concent Red Cell 14.4 Distribution Width Platelet Count 169 Mean Platelet Volume 10.7 H Immature 0.500 H Granulocytes % Neutrophils % 64.6 Lymphocytes % 14.9 L Monocytes % 10.9 Eosinophils % 8.8 H Basophils % 0.3 Nucleated Red Blood 0.0 Cells % Immature 0.030 Granulocytes # Neutrophils # 4.3 Lymphocytes # 1.0 Monocytes # 0.7 Eosinophils # 0.6 H Basophils # 0.0 Nucleated Red Blood 0.0 Cells # Sodium Level 142 Potassium Level 3.4 L Chloride Level 105 Carbon Dioxide Level 27 Anion Gap 10 Blood Urea Nitrogen 75 H Creatinine 3.97 H Est Glomerular 17 L Filtrat Rate mL/min Glucose Level 141 # Hemoglobin A1c 8.0 H Calcium Level 9.2 Magnesium Level 2.3 Total Bilirubin 0.3 Direct Bilirubin 0.00 Indirect Bilirubin 0.3 Aspartate Amino 23 Transf (AST/SGOT) Alanine 36 Aminotransferase (AL T/SGPT) Alkaline Phosphatase 96 Total Protein 6.4 Albumin 3.6 Globulin 2.80 Albumin/Globulin 1.28 Ratio Triglycerides Level 218 H Cholesterol Level 96 L LDL Cholesterol, 35 Calculated HDL Cholesterol 17 L Cholesterol/HDL 5.6 Ratio Thyroid Stimulating Pending Hormone (TSH) Bedside Glucose 154 Medications Medications Current Medications Apixaban (Eliquis) 5 mg BID PO Last administered on 12/17/18at 08:16; Admin Dose 5 MG; Start 12/16/18 at 21:00 Atorvastatin Calcium (Lipitor) 80 mg QHS PO Last administered on 12/16/18at 21:19; Admin Dose 80 MG; Start 12/16/18 at 21:00 Carvedilol (Coreg) 3.125 mg BID PO Last administered on 12/17/18at 08:17; Admin Dose 3.125 MG; Start 12/16/18 at 21:00 Cholecalciferol (Vitamin D) 2,000 unit DAILY PO Last administered on 12/17/18 08:16; Admin Dose 2,000 UNIT; Start 12/17/18 at 09:00 Doxazosin Mesylate (Cardura) 4 mg HS PO Last administered on 12/16/18 21:22; Admin Dose 4 MG; Start 12/16/18 at 21:00 EZETIMIBE (Zetia) 10 mg HS PO Last administered on 12/16/18 21:21; Admin Dose 10 MG; Start 12/16/18 at 21:00 Hydralazine HCl (Apresoline) 100 mg TID PO Last administered on 12/17/18 08:16; Admin Dose 100 MG; Start 12/16/18 at 21:00 Isosorbide Mononitrate (Imdur) 30 mg DAILY PO Last administered on 12/17/18 08:16; Admin Dose 30 MG; Start 12/17/18 at 09:00 Nifedipine (Procardia Xl) 60 mg BID PO Last administered on 12/17/18 08:17; Admin Dose 60 MG; Start 12/16/18 at 21:00 Sevelamer Carbonate (Renvela) 0.8 gm WITH MEALS PO Last administered on 12/17/18 08:06; Admin Dose 0.8 GM; Start 12/17/18 at 07:55 Spironolactone (Aldactone) 25 mg DAILY PO Last administered on 12/17/18 08:16; Admin Dose 25 MG; Start 12/17/18 at 09:00 Furosemide (Lasix) 40 mg BID DIURETICS IV Last administered on 12/17/18 06:31; Admin Dose 40 MG; Start 12/17/18 at 06:00 IV Flush (NS 3 ml) 3 ml PER PROTOCOL IV ; Start 12/16/18 at 18:30 Ondansetron HCl (Zofran Inj) 4 mg Q6H PRN IV NAUSEA/VOMITING; Start 12/16/18 at 18:30 Acetaminophen (Tylenol Tab) 650 mg Q6H PRN PO .PAIN 1-3 OR TEMP; Start 12/16/18 at 18:30 Acetaminophen/ Hydrocodone Bitart ([place] (5/325)) 1 tab Q6H PRN PO .PAIN 4-6; Start 12/16/18 at 18:30 Morphine Sulfate (morphine) 2 mg Q4H PRN IV .PAIN 7-10 Last administered on 12/17/18at 08:18; Admin Dose 2 MG; Start 12/16/18 at 18:30 Albuterol/ Ipratropium (Duoneb) 3 ml Q2H RESP THERAPY PRN HHN shortness of breath; Start 12/16/18 at 18:30 Diagnostic Test (Pha) (Accu-Chek) 1 ea 02 XX Last administered on 12/17/18at 02:00; Admin Dose 1 EA; Start 12/17/18 at 02:00 Insulin Glargine (Lantus) 31 units DAILY@2000 SC Last administered on 12/17/18at 01:14; Admin Dose 31 UNITS; Start 12/16/18 at 20:00 Insulin Aspart (Novolog Insulin Pen) 13 unit WITH MEALS SC Last administered on 12/17/18 08:09; Admin Dose 13 UNIT; Start 12/17/18 at 07:55 Insulin Aspart (Novolog Insulin Pen) NOVOLOG *MILD* ALGORITHM WITH MEALS BEDTIME SC Last administered on 12/17/18 08:08; Admin Dose 1 UNIT; Start at 21:00 Miscellaneous Information 1 ea NOTE XX ; Start 12/16/18 at 19:00 Glucose (Glutose) 15 gm Q15M PRN PO DECREASED GLUCOSE; Start 12/16/18 at 19:00 Glucose (Glutose) 22.5 gm Q15M PRN PO DECREASED GLUCOSE; Start 12/16/18 at 19:00 Dextrose (D50w Syringe) 25 ml Q15M PRN IV DECREASED GLUCOSE; Start 12/16/18 at 19:00 Dextrose (D50w Syringe) 50 ml Q15M PRN IV DECREASED GLUCOSE; Start 12/16/18 at 19:00 Glucagon (Glucagen) 1 mg Q15M PRN IM DECREASED GLUCOSE; Start 12/16/18 at 19:00 Glucose (Glutose) 15 gm Q15M PRN BUCCAL DECREASED GLUCOSE; Start 12/16/18 at 19:00 DELIA BILLY MD Dec 17, 2018 09:05
--- NOTE | 2018-12-17 10:06 | CONS ---
DATE OF ADMISSION: 12/16/2018 DATE OF CONSULTATION: 12/17/2018 TYPE OF CONSULTATION: Cardiology. REFERRING PHYSICIAN: Dr. Sanon. HISTORY OF PRESENT ILLNESS: The patient is a 43-year-old gentleman, patient of Dr. Sanon, who has a history of chronic renal disease stage IV, history of heart failure, history of atrial fibrillation , although he is in sinus rhythm now. History of congestive heart failure with recurrent exacerbatio n, comes to the hospital now for evaluation of shortness of breath. The patient is with acute renal failure. He said he has been given some new medications recently which might have contributed but he could not recall the name of medication. The patient is clear fluid overload. The patient has been seen by Dr. Piña who is helping with diuresis of the patient for now with gentle diuresis with af terload reduction would be expected. We will continue to adjust therapy as needed. The patient does not appear to be with any evidence of acute ischemia. PAST MEDICAL HISTORY: 1. Hypertension. 2. Dyslipidemia. 3. Renal insufficiency. 4. History of cardiomyopathy. 5. History of hypertension. ALLERGIES: IBUPROFEN AND SEAFOOD. SOCIAL HISTORY: The patient does not smoke, does not drink, does not do drugs now. FAMILY HISTORY: Positive for diabetes. CURRENT MEDICATIONS: Include: 1. Vitamin D. 2. Isosorbide mononitrate 30 mg p.o. once a day. 3. Spironolactone 25 once a day. 4. Lasix 40 mg IV b.i.d. 5. Eliquis 5 mg p.o. b.i.d. 6. Coreg 3.125 mg a day. 7. Atorvastatin. 8. Hydralazine. 9. Nifedipine. REVIEW OF SYSTEMS: CONSTITUTIONAL: No fevers, no chills, recent increase in shortness of breath. HEENT: No change in vision or hearing. CARDIAC: Chest pain reported now. RESPIRATORY: Short of breath, acute on chronic. GASTROINTESTINAL: No nausea, vomiting. GENITOURINARY: No dysuria or hematuria. NEUROLOGIC: No focal deficits. HEMATOLOGIC: No easy bruising. PSYCHIATRIC: No history of psychiatric illness. PHYSICAL EXAMINATION: VITAL SIGNS: Temperature is 98.6, heart rate 81, blood pressure 157/80. GENERAL: He is a well-nourished gentleman in no acute distress, alert and oriented x3, aware of his condition. HEAD: Normocephalic, atraumatic. Eyes anicteric. NECK: Supple. JVD is about 9 cm. No lymphadenopathy. HEART: Regular with PMI displaced leftward. LUNGS: Coarse at the base. ABDOMEN: Distended. Bowel sounds are present. No hepatosplenomegaly. EXTREMITIES: Shows 1 to 2+ edema. LABORATORY DATA: Shows white blood cell count of 6.6, hemoglobin is 8.5, platelets 169. INR is 0.96 . His sodium 142, potassium 3.4, BUN is 75, creatinine 3.9. His troponin on presentation was negati ve at 0.012. ASSESSMENT AND PLAN: 1. The patient has heart failure, acute on chronic, likely in the setting of acute renal disease. F or now we will defer to Dr. Piña for afterload reduction and diuresis to protect his kidney. 2. Hypertension. Blood pressure on the high side. Continue to adjust medicines as needed. 3. History of cardiomyopathy. Continue gentle diuresis. We will monitor closely. The patient's [facility] admission was with Dr. Sanon, which showed no vegetation. 4. Diabetes. Continue diabetic optimization care, renally insufficiency, acute on chronic. Continu e to monitor closely. 5. Atrial fibrillation. The patient was in fibrillation, likely paroxysmal. The patient is in sinu s rhythm now. Continue him on anticoagulation therapy now. I would like to thank Dr. Sanon for referring this patient for my evaluation. Dictated By: DELIA BILLY MD ML/NTS Conf#: [id number] DID#: [id number] CC: TREY MONTEJO MD;*EndCC*
[2018-12-17] MEDS ORDERED: BISACODYL (EC) 5 MG TAB PO ONE (12:00)
[2018-12-17] MEDS ORDERED: MINERAL OIL 133 ML ENEMA PR PRN (12:00)
--- NOTE | 2018-12-17 12:44 | PN ---
Date/Time of Note Date/Time of Note DATE: 12/17/18 TIME: 12:43 Objective Vitals Vital Signs Date Temp Pulse Resp B/P (MAP) Pulse Ox O2 O2 Flow FiO2 Time Delivery Rate 12/17/18 98.6 74 19 166/84 100 Room Air 11:29 (111) Results Result Diagram: 12/17/18 0553 12/17/18 0553 Medications Medications Current Medications Apixaban (Eliquis) 5 mg BID PO Last administered on 12/17/18 08:16; Admin Dose 5 MG; Start 12/16/18 at 21:00 Atorvastatin Calcium (Lipitor) 80 mg QHS PO Last administered on 12/16/18 21:19; Admin Dose 80 MG; Start 12/16/18 at 21:00 Carvedilol (Coreg) 3.125 mg BID PO Last administered on 12/17/18 08:17; Admin Dose 3.125 MG; Start 12/16/18 at 21:00 Cholecalciferol (Vitamin D) 2,000 unit DAILY PO Last administered on 12/17/18 08:16; Admin Dose 2,000 UNIT; Start 12/17/18 at 09:00 Doxazosin Mesylate (Cardura) 4 mg HS PO Last administered on 12/16/18 21:22; Admin Dose 4 MG; Start 12/16/18 at 21:00 EZETIMIBE (Zetia) 10 mg HS PO Last administered on 12/16/18 21:21; Admin Dose 10 MG; Start 12/16/18 at 21:00 Hydralazine HCl (Apresoline) 100 mg TID PO Last administered on 12/17/18 12:10; Admin Dose 100 MG; Start 12/16/18 at 21:00 Isosorbide Mononitrate (Imdur) 30 mg DAILY PO Last administered on 12/17/18 08:16; Admin Dose 30 MG; Start 12/17/18 at 09:00 Nifedipine (Procardia Xl) 60 mg BID PO Last administered on 12/17/18 08:17; Admin Dose 60 MG; Start 12/16/18 at 21:00 Sevelamer Carbonate (Renvela) 0.8 gm WITH MEALS PO Last administered on 12/17/18 12:10; Admin Dose 0.8 GM; Start 12/17/18 at 07:55 Spironolactone (Aldactone) 25 mg DAILY PO Last administered on 12/17/18 08:16; Admin Dose 25 MG; Start 12/17/18 at 09:00 Furosemide (Lasix) 40 mg BID DIURETICS IV Last administered on 12/17/18 06:31; Admin Dose 40 MG; Start 12/17/18 at 06:00 IV Flush (NS 3 ml) 3 ml PER PROTOCOL IV ; Start 12/16/18 at 18:30 Ondansetron HCl (Zofran Inj) 4 mg Q6H PRN IV NAUSEA/VOMITING; Start 12/16/18 at 18:30 Acetaminophen (Tylenol Tab) 650 mg Q6H PRN PO .PAIN 1-3 OR TEMP; Start 12/16/18 at 18:30 Acetaminophen/ Hydrocodone Bitart ([place] (5/325)) 1 tab Q6H PRN PO .PAIN 4-6; Start 12/16/18 at 18:30 Morphine Sulfate (morphine) 2 mg Q4H PRN IV .PAIN 7-10 Last administered on 12/17/18 08:18; Admin Dose 2 MG; Start 12/16/18 at 18:30 Albuterol/ Ipratropium (Duoneb) 3 ml Q2H RESP THERAPY PRN HHN shortness of breath; Start 12/16/18 at 18:30 Diagnostic Test (Pha) (Accu-Chek) 1 ea 02 XX Last administered on 12/17/18at 02:00; Admin Dose 1 EA; Start 12/17/18 at 02:00 Insulin Glargine (Lantus) 31 units DAILY@2000 SC Last administered on 12/17/18 01:14; Admin Dose 31 UNITS; Start 12/16/18 at 20:00 Insulin Aspart (Novolog Insulin Pen) 13 unit WITH MEALS SC Last administered on 12/17/18 11:59; Admin Dose 13 UNIT; Start 12/17/18 at 07:55 Insulin Aspart (Novolog Insulin Pen) NOVOLOG *MILD* ALGORITHM WITH MEALS BEDTIME SC Last administered on 12/17/18 08:08; Admin Dose 1 UNIT; Start 12/16 at 21:00 Miscellaneous Information 1 ea NOTE XX ; Start 12/16/18 at 19:00 Glucose (Glutose) 15 gm Q15M PRN PO DECREASED GLUCOSE; Start 12/16/18 at 19:00 Glucose (Glutose) 22.5 gm Q15M PRN PO DECREASED GLUCOSE; Start 12/16/18 at 19:00 Dextrose (D50w Syringe) 25 ml Q15M PRN IV DECREASED GLUCOSE; Start 12/16/18 at 19:00 Dextrose (D50w Syringe) 50 ml Q15M PRN IV DECREASED GLUCOSE; Start 12/16/18 at 19:00 Glucagon (Glucagen) 1 mg Q15M PRN IM DECREASED GLUCOSE; Start 12/16/18 at 19:00 Glucose (Glutose) 15 gm Q15M PRN BUCCAL DECREASED GLUCOSE; Start 12/16/18 at 19:00 Senna/Docusate Sodium (Senokot-S) 1 tab DAILY PRN PO constipation; Start 12/17/18 at 12:00 Docusate Sodium (Colace) 100 mg BID PO ; Start 12/17/18 at 21:00 Mineral Oil (Fleet Mineral Oil Enema) 133 ml DAILY PRN MN constipation; Start 12/17/18 at 12:00 VTE Prophylaxis Risk score (from Ns)>0 risk: 3 SCD applied (from [facility] [place]): Yes Lines/Catheters IV Catheter Type: Ritchie in Place: No Assessment/Plan Hospital Course Subjective Patient's swelling has improved slightly, patient complains of constipation, otherwise doing well Objective Physical exam General: Patient is laying in bed and answers questions appropriately Mentation: Patient is alert and oriented 4, Head: Normocephalic atraumatic Eyes: EOMI, pupils reactive to light Neck: Supple, nontender, midline Respiratory: Coarse to auscultation bilaterally Cardiovascular: regular rate, no obvious murmurs Gastrointestinal: non-tender to palpation, bowel sounds heard. Neurological: Moves all extremities spontaneously Skin: Anasarca Assessment and plan Acute on chronic congestive heart failure, diastolic -Lasix -We will consult patient's seismic survey assistant, Dr. Sanon -Echo -Breathing treatments as needed Acute on chronic kidney disease -Patient has a diagnosis of stage IV kidney disease however patient states that his outpatient felt hat mellowing machine operator stated that he is not in need of dialysis at this point -Nephrology will be consulted -IV Lasix, adjust per felt hat mellowing machine operator -Zaroxolyn as needed per felt hat mellowing machine operator Generalized anasarca -Patient has this issue from time to time on a normal basis, will continue IV diuretics, cardiology and nephrology to help manage -Likely a combination from his CHF as well as chronic kidney disease Anemia -Chronic -Follows up with outpatient fleet manager, monitor closely -Near baseline, no signs of acute bleed A. fib -Continue home meds -Continue Eliquis Diabetes mellitus -Continue Lantus and insulin sliding scale with mealtime insulin Constipation -Bowel regimen, as needed medications ordered Disposition -Follow-up with cardiology and nephrology recommendations, continue diuretics. TREY MONTEJO Dec 17, 2018 12:44
--- NOTE | 2018-12-17 14:48 | RADRPT ---
Echocardiogram Report Patient Name: TOSHIA TOTHPatient ID: [id number] : 1975 (43y 9m)Study Date: 12/17/2018 8:14:25 AM Gender: MAccession #: [id number] Tech: Richard Martel [facility] [[email or web address]] Location: [facility] Ref.Physician: TREY MONTEJO Height(Cm): BSA: Weight(Kg): Quality: AdequateAccount #: Procedures: Echocardiographic Report: Transthoracic echocardiogram with complete 2D, M-Mode, and doppler examination. Indications: Congestive Heart Failure. Measurements: 2D/M Mode Doppler Measurement Value Normal Range Measurement Value Normal Range LVIDd 2D 5.1 [ 4.2 - 5.8 ] cm AV Peak Nando 1.5 [ 100.0 - 170.0 ] cm/sec LVIDs 2D 2.6 [ 2.5 - 4.0 ] cm AV Peak PG 8.0 [ 2.0 - 9.0 ] mmHg LVPWd 2D 1.6 [ 0.6 - 1.0 ] cm LVOT Peak Nando 1.1 [ 70.0 - 110.0 ] cm/sec IVSd 2D 1.4 [ 0.6 - 1.0 ] cm LVOT Peak PG 4.0 [ 2.0 - 6.0 ] mmHg AoR Diam 2D 2.8 [ 2.6 - 3.4 ] cm MV E Peak Nando 0.9 [ 60.0 - 130.0 ] cm/sec EDV 2D 121.0 [ 62.0 - 150.0 ] ml MV A Peak Nando 0.6 [ 100.0 - 120.0 ] cm/sec ESV 2D 24.6 [ 21.0 - 61.0 ] ml MV E/A 1.6 [ 0.8 - 1.5 ] ratio EF 2D 79.7 [ 52.0 - 72.0 ] percent MV Decel Time 144 [ 104 - 258 ] msec LA Dimen 2D 4.6 [ 3.0 - 4.0 ] cm Lat E` Nando 0.1 [ 10.0 - 15.0 ] cm/sec Lateral E/E` 7.4 [ 1.0 - 2.0 ] ratio MV E/A 1.6 [ 0.8 - 1.5 ] ratio TR Peak Nando 2.3 [ 100.0 - 280.0 ] cm/sec TR Peak PG 20.0 mmHg RVSP 23.0 [ 10.0 - 36.0 ] mmHg RA Pressure 3.0 mmHg Findings: Left Ventricle: Normal left ventricular systolic function. Normal left ventricular cavity size. Moderate concentric left ventricular hypertrophy. Ejection fraction is visually estimated at 60 %. Tissue Doppler/Mitral Doppler indices are within normal limits. Right Ventricle: Normal right ventricular size. Normal right ventricular systolic function. Left Atrium: There is mild enlargement of left atrium. Right Atrium: The right atrium is normal in size. Mitral Valve: Normal appearance and function of the mitral valve with trace physiologic regurgitation. Aortic Valve: Normal appearance of the aortic valve. No significant aortic stenosis or insufficiency. Tricuspid Valve: Normal appearance of the tricuspid valve. Estimated peak PA systolic pressure 23 mmHg. There is trace tricuspid regurgitation. Pulmonic Valve: Normal pulmonic valve appearance. Pericardium: Normal pericardium with no significant pericardial effusion. Aorta: Normal aortic root. IVC: Normal size and normal respiratory collapse consistent with normal right atrial pressure. Conclusions: Normal left ventricular systolic function. Normal left ventricular cavity size. Moderate concentric left ventricular hypertrophy. Ejection fraction is visually estimated at 60 %. Tissue Doppler/Mitral Doppler indices are within normal limits. There is mild enlargement of left atrium. Normal appearance and function of the mitral valve with trace physiologic regurgitation. Normal appearance of the tricuspid valve. Estimated peak PA systolic pressure 23 mmHg. There is trace tricuspid regurgitation. Electronically Signed By: Willy Sanon 2018-12-17 14:47:32 PDT
[2018-12-17] MEDS: SENNA/DOCUSATE NA (8.6MG/50MG) TAB PO PRN (15:45)
[2018-12-17] MEDS: DOXAZOSIN 4 MG TAB PO SCH (21:05)
[2018-12-17] MEDS: ATORVASTATIN 80 MG TAB PO SCH (21:05)
[2018-12-17] MEDS: EZETIMIBE 10 MG TAB PO SCH (21:05)
[2018-12-17] MEDS: DOCUSATE SODIUM 100 MG CAP PO SCH (21:05)
[2018-12-18] VITALS (11 sets, daily range): BP systolic 140–169; BP diastolic 71–85; PULSE 72–84; RESP 18–19
[2018-12-18] MEDS: ACCU-CHEK XX SCH (02:15)
[2018-12-18] MEDS: morphine 2 MG INJ IV PRN ×2 (04:33→20:24)
[2018-12-18] MEDS: FUROSEMIDE 40 MG INJ IV SCH (06:25)
[2018-12-18] MEDS: INSULIN ASPART [NOVOLOG] 3 ML PEN SC SCH ×6 (07:55→20:58)
[2018-12-18] MEDS: SEVELAMER CARBONATE 0.8 GM PKT PO SCH ×3 (08:11→18:03)
[2018-12-18] MEDS: CHOLECALCIFEROL 2,000 UNIT CAP PO SCH (08:12)
[2018-12-18] MEDS: ISOSORBIDE MONONITRATE(SR)30 MG TAB PO SCH (08:12)
[2018-12-18] MEDS: DOCUSATE SODIUM 100 MG CAP PO SCH ×2 (08:12→20:12)
[2018-12-18] MEDS: SPIRONOLACTONE 25 MG TAB PO SCH (08:13)
[2018-12-18] MEDS: APIXABAN 5 MG TABLET PO SCH ×2 (08:13→20:12)
[2018-12-18] MEDS: NIFEdipine (XL) 60 MG TAB PO SCH ×2 (08:14→20:13)
--- NOTE | 2018-12-18 10:17 | PN ---
DATE: 12/18/2018 SUBJECTIVE: The patient is clinically stable. The patient's edema is improving. No other events no bel. OBJECTIVE: VITAL SIGNS: Blood pressure is 156/78, pulse 80, respirations 18, temperature 98.1. HEENT: Head is normocephalic. NECK: Supple. HEART: Regular rate. LUNGS: Show diminished breath sounds at the base. ABDOMEN: Soft, nontender to palpation without rebound or guarding. EXTREMITIES: Negative for clubbing, cyanosis. Trace edema. DERMATOLOGIC: No rashes. MUSCULOSKELETAL: No joint effusion. NEUROLOGIC: No change in exam. MEDICATIONS: Reviewed. LABORATORY DATA: Reviewed. ASSESSMENT AND PLAN: 1. Chronic kidney disease stage IV with previous baseline creatinine of around 4 mg/dL. The patient 's renal function has been stable. At this point, continue current treatment plan, supportive care, renally dose all medicines, no immediate need for renal replacement therapy at this time. 2. Volume overload. Etiology is secondary to chronic kidney failure and congestive heart failure. The patient is clinically improving. Continue current diuretic regimen. 3. Anemia. Monitor hemoglobin and hematocrit levels. We will give Epogen as needed. 4. Mineral bone disorder, monitor calcium and phosphorus levels. 5. Acute heart failure as stated above. Continue current medical management. Continue diuretic the rapy. Follow up with cardiology. 6. Hypertension. Continue current blood pressure regimen. 7. Diabetes. Continue current insulin regimen. 8. Atrial fibrillation. Continue medical management. Dictated By: LUIS DICKINSON DO NR/NTS Conf#: [id number] DID#: [id number] CC: TREY MONTEJO MD;*EndCC*
[2018-12-18] MEDS ORDERED: hydrALAzine 20 MG INJ IV PRN (12:00)
--- NOTE | 2018-12-18 15:59 | PN ---
Date/Time of Note Date/Time of Note DATE: 12/18/18 TIME: 15:57 Objective Vitals Vital Signs Date Temp Pulse Resp B/P (MAP) Pulse Ox O2 O2 Flow FiO2 Time Delivery Rate 12/18/18 98.1 79 19 169/78 96 15:43 (108) 12/17/18 Room Air 15:40 Intake and Output 12/17/18 12/17/18 12/18/18 1515:00 23:00 07:00 IntakeIntake Total 500 ml 1000 ml 1800 ml OutputOutput Total 2000 ml 300 ml 2760 ml BalanceBalance -1500 ml 700 ml -960 ml Results Result Diagram: 12/18/1860412/18/18604 Medications Medications Current Medications Apixaban (Eliquis) 5 mg BID PO Last administered on 12/18/18 08:13; Admin Dose 5 MG; Start 12/16/18 at 21:00 Atorvastatin Calcium (Lipitor) 80 mg QHS PO Last administered on 12/17/18 21:05; Admin Dose 80 MG; Start 12/16/18 at 21:00 Cholecalciferol (Vitamin D) 2,000 unit DAILY PO Last administered on 12/18/18 08:12; Admin Dose 2,000 UNIT; Start 12/17/18 at 09:00 Doxazosin Mesylate (Cardura) 4 mg HS PO Last administered on 12/17/18 21:05; Admin Dose 4 MG; Start 12/16/18 at 21:00 EZETIMIBE (Zetia) 10 mg HS PO Last administered on 12/17/18 21:05; Admin Dose 10 MG; Start 12/16/18 at 21:00 Hydralazine HCl (Apresoline) 100 mg TID PO Last administered on 12/18/18 12:41; Admin Dose 100 MG; Start 12/16/18 at 21:00 Nifedipine (Procardia Xl) 60 mg BID PO Last administered on 12/18/18 08:14; Admin Dose 60 MG; Start 12/16/18 at 21:00 Sevelamer Carbonate (Renvela) 0.8 gm WITH MEALS PO Last administered on 12/18/18 12:41; Admin Dose 0.8 GM; Start 12/17/18 at 07:55 Spironolactone (Aldactone) 25 mg DAILY PO Last administered on 12/18/18at 08:13; Admin Dose 25 MG; Start 12/17/18 at 09:00 Furosemide (Lasix) 40 mg BID DIURETICS IV Last administered on 12/18/18at 06:25 ; Admin Dose 40 MG; Start 12/17/18 at 06:00 IV Flush (NS 3 ml) 3 ml PER PROTOCOL IV ; Start 12/16/18 at 18:30 Ondansetron HCl (Zofran Inj) 4 mg Q6H PRN IV NAUSEA/VOMITING; Start 12/16/18 at 18:30 Acetaminophen (Tylenol Tab) 650 mg Q6H PRN PO .PAIN 1-3 OR TEMP; Start 12/16/18 at 18:30 Acetaminophen/ Hydrocodone Bitart ([place] (5/325)) 1 tab Q6H PRN PO .PAIN 4-6; Start 12/16/18 at 18:30 Morphine Sulfate (morphine) 2 mg Q4H PRN IV .PAIN 7-10 Last administered on 12/18/18at 04:33; Admin Dose 2 MG; Start 12/16/18 at 18:30 Albuterol/ Ipratropium (Duoneb) 3 ml Q2H RESP THERAPY PRN HHN shortness of breath; Start 12/16/18 at 18:30 Diagnostic Test (Pha) (Accu-Chek) 1 ea 02 XX Last administered on 12/18/18at 02:15; Admin Dose 1 EA; Start 12/17/18 at 02:00 Insulin Aspart (Novolog Insulin Pen) NOVOLOG *MILD* ALGORITHM WITH MEALS BEDTIME SC Last administered on 12/17/18at 08:08; Admin Dose 1 UNIT; Start 12/16/18 at 21:00 Miscellaneous Information 1 ea NOTE XX ; Start 12/16/18 at 19:00 Glucose (Glutose) 15 gm Q15M PRN PO DECREASED GLUCOSE; Start 12/16/18 at 19:00 Glucose (Glutose) 22.5 gm Q15M PRN PO DECREASED GLUCOSE; Start 12/16/18 at 19:00 Dextrose (D50w Syringe) 25 ml Q15M PRN IV DECREASED GLUCOSE; Start 12/16/18 at 19:00 Dextrose (D50w Syringe) 50 ml Q15M PRN IV DECREASED GLUCOSE; Start 12/16/18 at 19:00 Glucagon (Glucagen) 1 mg Q15M PRN IM DECREASED GLUCOSE; Start 12/16/18 at 19:00 Glucose (Glutose) 15 gm Q15M PRN BUCCAL DECREASED GLUCOSE; Start 12/16/18 at 19:00 Senna/Docusate Sodium (Senokot-S) 1 tab DAILY PRN PO constipation Last administered on 12/17/18at 15:45; Admin Dose 1 TAB; Start 12/17/18 at 12:00 Docusate Sodium (Colace) 100 mg BID PO Last administered on 12/18/18at 08:12; Admin Dose 100 MG; Start 12/17/18 at 21:00 Mineral Oil (Fleet Mineral Oil Enema) 133 ml DAILY PRN [place] constipation; Start 12/17/18 at 12:00 Insulin Aspart (Novolog Insulin Pen) 12 unit WITH MEALS SC Last administered on 12/18/18at 12:55; Admin Dose 12 UNIT; Start 12/18/18 at 17:55 Insulin Glargine (Lantus) 25 units DAILY@2000 SC ; Start 12/18/18 at 20:00 Hydralazine HCl (Apresoline) 10 mg Q4H PRN IV sbp >160; Start 12/18/18 at 12:00 Carvedilol (Coreg) 6.25 mg BID PO ; Start 12/18/18 at 21:00 Isosorbide Mononitrate (Imdur) 60 mg DAILY PO ; Start 12/19/18 at 09:00 VTE Prophylaxis Risk score (from Ns)>0 risk: 3 SCD applied (from [facility] [place]): Yes Lines/Catheters IV Catheter Type: Ritchie in Place: No Assessment/Plan Hospital Course Subjective Patient's swelling has improved Objective Physical exam General: Patient is laying in bed and answers questions appropriately Mentation: Patient is alert and oriented 4, Head: Normocephalic atraumatic Eyes: EOMI, pupils reactive to light Neck: Supple, nontender, midline Respiratory: Coarse to auscultation bilaterally Cardiovascular: regular rate, no obvious murmurs Gastrointestinal: non-tender to palpation, bowel sounds heard. Neurological: Moves all extremities spontaneously Skin: Anasarca Assessment and plan Acute on chronic congestive heart failure, diastolic -Lasix now switched over to Bumex -We will consult patient's yield loss inspector, Dr. Sanon -Echo -Breathing treatments as needed Acute on chronic kidney disease -Patient has a diagnosis of stage IV kidney disease however patient states that his outpatient sieve grader tender stated that he is not in need of dialysis at this point -Nephrology will be consulted -IV Lasix, switched over to Bumex -Zaroxolyn as needed per sieve grader tender Generalized anasarca -Patient has this issue from time to time on a normal basis, will continue diuretics, cardiology and nephrology to help manage -Likely a combination from his CHF as well as chronic kidney disease -Resolving Anemia -Chronic -Follows up with outpatient supervisor warping department, monitor closely -Near baseline, no signs of acute bleed A. fib -Continue home meds -Continue Eliquis Diabetes mellitus -Continue Lantus and insulin sliding scale with mealtime insulin Constipation -Bowel regimen, as needed medications ordered Disposition -Patient has refractory hypertension likely secondary to chronic kidney disease, will need to adjust medications to ensure safe for levels before discharge. TREY MONTEJO Dec 18, 2018 15:58
[2018-12-18] MEDS ORDERED: ISOSORBIDE MONONITRATE(SR)30 MG TAB PO ONE (16:00)
--- NOTE | 2018-12-18 16:44 | CONS ---
Assessment/Plan Assessment/Plan Hospital Course (Demo Recall) IMP: 1. 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 status closely Consultation Date/Type/Reason Admit Date/Time Dec 16, 2018 at 19:38 Initial Consult Date 12/18/18 Type of Consult Cardiology Reason for Consultation chest pain Requesting Provider: TREY MONTEJO Date/Time of Note DATE: 12/18/18 TIME: 16:31 Exam/Review of Systems Vital Signs Vitals Vital Signs Date Temp Pulse Resp B/P (MAP) Pulse Ox O2 O2 Flow FiO2 Time Delivery Rate 12/18/18 77 16:08 12/18/18 98.1 19 169/78 96 15:43 (108) 12/17/18 Room Air 15:40 Intake and Output 12/17/18 12/17/18 12/18/18 1515:00 23:00 07:00 IntakeIntake Total 500 ml 1000 ml 1800 ml OutputOutput Total 2000 ml 300 ml 2760 ml BalanceBalance -1500 ml 700 ml -960 ml Exam Exam Review of Systems: CONSTITUTIONAL: No fevers, chills. PULMONARY: No sob CARDIOVASCULAR: No chest pain/palpitations GASTROINTESTINAL: No nausea/vomiting. GENITOURINARY: No hematuria/dysuria. MUSCULOSKELETAL: No myagias/arthalgias. PSYCHIATRIC: The patient denies depression. NEUROLOGIC: No weakness Constitutional: alert Psych: no complaints Head: normocephalic ENMT: mucosa pink and moist Neck: supple, jvd (9 cm water) Respiratory: diminished breath sounds Cardiovascular: regular rate and rhythm Gastrointestinal: soft, non-tender Musculoskeletal: muscle tone (normal) Extremities: edema (none) Neurological: other (No focal deficits) Labs Result Diagram: 12/18/18 0612/18/18604 Results 24hrs Laboratory Tests Test 12/17/18 17:36 12/17/18 21:11 12/18/18 01:40 12/18/18 04:45 Bedside Glucose 96 176 127 Urine Color STRAW Urine Clarity CLEAR Urine pH 6.0 Urine Specific 1.010 [place] Urine Ketones NEGATIVE Urine Nitrite NEGATIVE Urine Bilirubin NEGATIVE Urine Urobilinogen NEGATIVE Urine Leukocyte NEGATIVE Esterase Urine Microscopic 1 RBC Urine Microscopic 0 WBC Urine Hemoglobin NEGATIVE Urine Random 42.24 Creatinine Urine Random Sodium 105 H Urine Glucose 1+ H Urine Total Protein 150.0 H Test 12/18/18 06:05 12/18/18 06:21 12/18/18 07:52 12/18/18 12:39 White Blood Count 5.6 Red Blood Count 3.28 L Hemoglobin 8.3 L Hematocrit 26.9 L Mean Corpuscular 82.0 Volume Mean Corpuscular 25.3 L Hemoglobin Mean Corpuscular 30.9 L Hemoglobin Concent Red Cell 14.6 H Distribution Width Platelet Count 164 Mean Platelet Volume 11.1 H Immature 0.400 Granulocytes % Neutrophils % 57.3 Lymphocytes % 19.6 Monocytes % 13.4 H Eosinophils % 8.8 H Basophils % 0.5 Nucleated Red Blood 0.0 Cells % Immature 0.020 Granulocytes # Neutrophils # 3.2 Lymphocytes # 1.1 Monocytes # 0.8 Eosinophils # 0.5 Basophils # 0.0 Nucleated Red Blood 0.0 Cells # Sodium Level 142 Potassium Level 3.8 Chloride Level 104 Carbon Dioxide Level 29 Anion Gap 9 Blood Urea Nitrogen 81 H Creatinine 4.10 H Est Glomerular 16 L Filtrat Rate mL/min Glucose Level 48 #*L Calcium Level 8.6 Phosphorus Level 6.0 H Magnesium Level 2.4 Bedside Glucose 66 L 85 75 Medications Medications Current Medications Apixaban (Eliquis) 5 mg BID PO Last administered on 12/18/18 08:13; Admin Dose 5 MG; Start 12/16/18 at 21:00 Atorvastatin Calcium (Lipitor) 80 mg QHS PO Last administered on 12/17/18at 21:05; Admin Dose 80 MG; Start 12/16/18 at 21:00 Cholecalciferol (Vitamin D) 2,000 unit DAILY PO Last administered on 12/18/18 08:12; Admin Dose 2,000 UNIT; Start 12/17/18 at 09:00 Doxazosin Mesylate (Cardura) 4 mg HS PO Last administered on 12/17/18at 21:05; Admin Dose 4 MG; Start 12/16/18 at 21:00 EZETIMIBE (Zetia) 10 mg HS PO Last administered on 12/17/18at 21:05; Admin Dose 10 MG; Start 12/16/18 at 21:00 Hydralazine HCl (Apresoline) 100 mg TID PO Last administered on 12/18/18 12:41; Admin Dose 100 MG; Start 12/16/18 at 21:00 Nifedipine (Procardia Xl) 60 mg BID PO Last administered on 12/18/18 08:14; Admin Dose 60 MG; Start 12/16/18 at 21:00 Sevelamer Carbonate (Renvela) 0.8 gm WITH MEALS PO Last administered on 12/18/18 12:41; Admin Dose 0.8 GM; Start 12/17/18 at 07:55 Spironolactone (Aldactone) 25 mg DAILY PO Last administered on 12/18/18 08:13; Admin Dose 25 MG; Start 12/17/18 at 09:00 IV Flush (NS 3 ml) 3 ml PER PROTOCOL IV ; Start 12/16/18 at 18:30 Ondansetron HCl (Zofran Inj) 4 mg Q6H PRN IV NAUSEA/VOMITING; Start 12/16/18 at 18:30 Acetaminophen (Tylenol Tab) 650 mg Q6H PRN PO .PAIN 1-3 OR TEMP; Start 12/16/18 at 18:30 Acetaminophen/ Hydrocodone Bitart ([place] (5/325)) 1 tab Q6H PRN PO .PAIN 4-6; Start 12/16/18 at 18:30 Morphine Sulfate (morphine) 2 mg Q4H PRN IV .PAIN 7-10 Last administered on 12/18/18 04:33; Admin Dose 2 MG; Start 12/16/18 at 18:30 Albuterol/ Ipratropium (Duoneb) 3 ml Q2H RESP THERAPY PRN HHN shortness of breath; Start 12/16/18 at 18:30 Diagnostic Test (Pha) (Accu-Chek) 1 ea 02 XX Last administered on 12/18/18 02:15; Admin Dose 1 EA; Start 12/17/18 at 02:00 Insulin Aspart (Novolog Insulin Pen) NOVOLOG *MILD* ALGORITHM WITH MEALS BEDTIME SC Last administered on 12/17/18 08:08; Admin Dose 1 UNIT; Start 12/16/18 at 21:00 Miscellaneous Information 1 ea NOTE XX ; Start 12/16/18 at 19:00 Glucose (Glutose) 15 gm Q15M PRN PO DECREASED GLUCOSE; Start 12/16/18 at 19:00 Glucose (Glutose) 22.5 gm Q15M PRN PO DECREASED GLUCOSE; Start 12/16/18 at 19:00 Dextrose (D50w Syringe) 25 ml Q15M PRN IV DECREASED GLUCOSE; Start 12/16/18 at 19:00 Dextrose (D50w Syringe) 50 ml Q15M PRN IV DECREASED GLUCOSE; Start 12/16/18 at 19:00 Glucagon (Glucagen) 1 mg Q15M PRN IM DECREASED GLUCOSE; Start 12/16/18 at 19:00 Glucose (Glutose) 15 gm Q15M PRN BUCCAL DECREASED GLUCOSE; Start 12/16/18 at 19:00 Senna/Docusate Sodium (Senokot-S) 1 tab DAILY PRN PO constipation Last administered on 12/17/18at 15:45; Admin Dose 1 TAB; Start 12/17/18 at 12:00 Docusate Sodium (Colace) 100 mg BID PO Last administered on 12/18/18at 08:12; Admin Dose 100 MG; Start 12/17/18 at 21:00 Mineral Oil (Fleet Mineral Oil Enema) 133 ml DAILY PRN [place] constipation; Start 12/17/18 at 12:00 Insulin Aspart (Novolog Insulin Pen) 12 unit WITH MEALS SC Last administered on 12/18/18at 12:55; Admin Dose 12 UNIT; Start 12/18/18 at 17:55 Insulin Glargine (Lantus) 25 units DAILY@2000 SC ; Start 12/18/18 at 20:00 Hydralazine HCl (Apresoline) 10 mg Q4H PRN IV sbp >160; Start 12/18/18 at 12:00 Carvedilol (Coreg) 6.25 mg BID PO ; Start 12/18/18 at 21:00 Isosorbide Mononitrate (Imdur) 60 mg DAILY PO ; Start 12/19/18 at 09:00 Isosorbide Mononitrate (Imdur) 30 mg ONCE ONCE PO ; Start 12/18/18 at 16:00; Stop 12/18/18 at 16:01; Status UNV Bumetanide (Bumex) 2 mg BID DIURETICS PO ; Start 12/18/18 at 18:00 VI ADAMES Dec 18, 2018 16:42
[2018-12-18] MEDS: BUMETANIDE 1 MG TAB PO SCH (18:03)
[2018-12-18] MEDS: SENNA/DOCUSATE NA (8.6MG/50MG) TAB PO PRN (18:04)
[2018-12-18] MEDS ORDERED: INSULIN GLARGINE [LANTus] (100 UNITS/ML) SYG SC SCH (20:00)
[2018-12-18] MEDS: ATORVASTATIN 80 MG TAB PO SCH (20:13)
[2018-12-18] MEDS: EZETIMIBE 10 MG TAB PO SCH (20:13)
[2018-12-18] MEDS: DOXAZOSIN 4 MG TAB PO SCH (20:13)
[2018-12-18] MEDS ORDERED: ZOLPIDEM 5 MG TAB PO ONE (23:30)
[2018-12-19] VITALS: BP 147/70; PULSE 73; PULSE 76; RESP 19
[2018-12-19] MEDS: ACCU-CHEK XX SCH (01:39)
[2018-12-19 04:00] VITALS: PULSE 72
[2018-12-19] MEDS: BUMETANIDE 1 MG TAB PO SCH (06:14)
[2018-12-19 07:18] VITALS: BP 137/81; PULSE 74; RESP 19
[2018-12-19] MEDS: INSULIN ASPART [NOVOLOG] 3 ML PEN SC SCH ×4 (07:55→11:50)
[2018-12-19 08:00] VITALS: PULSE 76
[2018-12-19] MEDS: SEVELAMER CARBONATE 0.8 GM PKT PO SCH ×2 (08:05→12:10)
[2018-12-19] MEDS: CHOLECALCIFEROL 2,000 UNIT CAP PO SCH (08:07)
[2018-12-19] MEDS: APIXABAN 5 MG TABLET PO SCH (08:07)
[2018-12-19] MEDS: NIFEdipine (XL) 60 MG TAB PO SCH (08:07)
[2018-12-19] MEDS: DOCUSATE SODIUM 100 MG CAP PO SCH (08:08)
[2018-12-19] MEDS: SPIRONOLACTONE 25 MG TAB PO SCH (08:08)
[2018-12-19] MEDS ORDERED: ISOSORBIDE MONONITRATE(SR)30 MG TAB PO SCH (09:00)
[2018-12-19] MEDS: morphine 2 MG INJ IV PRN (09:19)
--- NOTE | 2018-12-19 09:29 | PN ---
DATE: 12/19/2018 SUBJECTIVE: The patient is stable. No events overnight. No fevers, chills, nausea, or vomiting. OBJECTIVE: VITAL SIGNS: Blood pressure is 137/81, respirations 18, pulse 74, temperature 98.4. HEENT: Head is normocephalic. NECK: Supple. HEART: Regular rate. LUNGS: Show diminished breath sounds at the base. ABDOMEN: Soft, nontender to palpation without rebound or guarding. EXTREMITIES: Negative for clubbing, cyanosis. Trace edema. DERMATOLOGIC: No rashes. MUSCULOSKELETAL: No joint effusion. NEUROLOGIC: No change in exam. MEDICATIONS: The patient's medications have been reviewed. LABORATORY DATA: Pending. ASSESSMENT AND PLAN: 1. Chronic kidney disease stage IV with a baseline creatinine around 4.0 mg/dL. The patient's renal function has been stable. Continue current treatment plan, supportive care, renally dose all medici johanna. 2. Volume overload secondary to chronic kidney disease stage IV, possible diastolic heart failure. The patient is clinically improving. Continue current diuretic regimen. 3. Anemia. Monitor hemoglobin and hematocrit levels. We will give Epogen as needed. 4. Mineral bone disorder, monitor calcium and phosphorus levels. 5. Hypertension. Blood pressure is improving. Blood pressure medications have been adjusted. We w ill continue. 6. Diabetes. Continue current insulin regimen. 7. Atrial fibrillation. Continue medical management. Dictated By: LUIS JOSHI/NTS Conf#: [id number] DID#: [id number] CC: TREY MONTEJO MD;*EndCC*
[2018-12-19] MEDS ORDERED: ISOS60TA PO (10:25)
[2018-12-19] MEDS ORDERED: CARV6.2579 PO (10:25)
--- NOTE | 2018-12-19 10:25 | PDOCDIS ---
Discharge Instructions CONDITION [id number] Patient Condition: [id number] Stable FOLLOW UP/APPOINTMENTS Follow-up Plan Please follow-up with your mds coordinator and impregnator electrolytic capacitors as soon as possible as well as her primary care provider. Please monitor your blood pressure very closely as well as your blood sugars. Please note 2 of your medication doses have been changed and prescription was given at discharge. TREY MONTEJO Dec 19, 2018 10:25
--- NOTE | 2018-12-19 10:30 | DS ---
Date/Time of Note Date/Time of Note DATE: 12/19/18 TIME: 10:29 Discharge Summary Admission/Discharge Info Admit Date/Time Dec 16, 2018 at 19:38 Discharge Date/Time Patient Condition: Stable Hospital Course Patient is a male with past medical history significant for chronic kidney disease stage IV, acute on chronic congestive heart failure diastolic and generalized anasarca, A. fib on Eliquis who presents to [facility] for increased swelling. Patient was seen by patient's own radio time buyer as well as tool lapper hand. Patient is not currently on dialysis and does not wish to be at this time. Patient volume status is easily affected per nephrology and patient was diuresed appropriately. Patient will continue to have multiple fluid balance issues due to his severe chronic lung disease combined with his congestive heart failure. Patient follows up with a radio time buyer tool lapper hand on a normal basis and feels well. Patient's blood pressure medication was adjusted and patient will be discharged as long as blood pressure is safe. Patient to follow-up immediately with nephrology and cardiology within 2 weeks. Patient is safe to be discharged from cardiology and nephrology perspective as patient's creatinine is his baseline. Discharge diagnosis Acute on chronic kidney disease, stable Acute on chronic congestive heart failure, stable Generalized anasarca, resolved Anemia A. fib on Eliquis Diabetes mellitus Constipation Home Meds Active Scripts Isosorbide Mononitrate* (Isosorbide Mononitrate*) 60 Mg Tab.er.24h, 60 MG PO DAILY, #30 TAB 2 Refills Prov:TREY MONTEJO 12/19/18 Carvedilol* (Carvedilol*) 6.25 Mg Tablet, 6.25 MG PO BID for 30 Days, #60 TAB 2 Refills Prov:TREY MONTEJO 12/19/18 Sevelamer Carbonate* (Renvela*) 800 Mg Tablet, 800 MG PO WITH MEALS, #60 TAB Prov:DAPHNE GALAN 09/26/18 Doxazosin Mesylate* (Cardura*) 4 Mg Tablet, 4 MG PO HS, #60 TAB Prov:DAPHNE GALAN 09/26/18 Nifedipine* (Nifedipine ER*) 60 Mg Tablet.sa, 60 MG PO BID, #60 TAB.SA Prov:BREANA MORALES 05/09/18 Bumetanide* (Bumetanide*) 2 Mg Tablet, 2 MG PO BID, #180 TAB Prov:LOLIS CROWDER MD 05/09/18 Reported Medications Hydralazine Hcl* (Hydralazine Hcl*) 100 Mg Tablet, 100 MG PO TID, #90 TAB 05/07/18 Potassium Chloride* (K-Dur*) 10 Meq Tab.prt.sr, 10 MEQ PO BID, TAB 05/06/18 Hydralazine Hcl* (Hydralazine Hcl*) 50 Mg Tab, 50 MG PO Q8 PRN for ELEVATED BLOOD PRESSURE, #90 TAB 05/06/18 Ezetimibe* (Zetia*) 10 Mg Tablet, 10 MG PO HS, TAB 05/06/18 Apixaban* (Eliquis*) 5 Mg Tablet, 5 MG PO BID, TAB 05/06/18 Spironolactone* (Aldactone*) 25 Mg Tablet, 25 MG PO DAILY, #30 TAB 04/16/18 Cholecalciferol* (Vitamin D3*) 1,000 Unit Tablet, 2000 UNIT PO DAILY, TAB 04/16/18 Insulin Lispro (Humalog Kwikpen U-100) 100 Unit/1 Ml Insuln.pen, 15 UNIT SQ WITH MEALS, EA 04/16/18 Insulin Glargine* (Lantus*) 100 Unit/Ml Soln, 30 UNIT SC QHS, #1 VIAL 02/28/18 Atorvastatin* (Atorvastatin*) 80 Mg Tablet, 80 MG PO QHS, #30 TAB 02/07/18 Discontinued Reported Medications Carvedilol* (Carvedilol*) 3.125 Mg Tablet, 3.125 MG PO BID, #60 TAB 05/06/18 Isosorbide Mononitrate* (Isosorbide Mononitrate*) 30 Mg Tab.er.24h, 30 MG PO DAILY, TAB 04/16/18 Follow-up Plan Please follow-up with your tool lapper hand and radio time buyer as soon as possible as well as her primary care provider. Please monitor your blood pressure very closely as well as your blood sugars. Please note 2 of your medication doses have been changed and prescription was given at discharge. Primary Care Provider [facility] Time spent on discharge: > 30 minutes Pending Labs Laboratory Tests Test 12/18/18 12:39 12/18/18 18:02 12/18/18 20:11 4/25/19 07:13 Bedside 75 87 122 Glucose mg/dL (70-220) mg/dL (70-220) mg/dL (70-220) White Blood 4.8 Count 10^3/ul (4.8-1 0.8) Red Blood 3.81 Count 10^6/ul (4.70- 6.10) Hemoglobin 9.7 g/dl (14.0-18. 0) Hematocrit 31.5 % (42.0-52.0) Mean 82.7 Corpuscular fl (82.0-101.0 Volume ) Mean 25.5 Corpuscular pg (29.0-33.0) Hemoglobin Mean 30.8 Corpuscular g/dl (32.0-37. Hemoglobin Conc 0) ent Red Cell 14.9 Distribution % (11.5-14.5) Width Platelet Count 190 10^3/UL (140-4 15) Mean Platelet 11.3 Volume fl (7.4-10.4) Immature 0.400 Granulocytes % % (0.001-0.429 ) Neutrophils % 59.1 % (39.0-77.0) Lymphocytes % 20.6 % (15.0-51.0) Monocytes % 11.2 % (0.0-11.0) Eosinophils % 8.3 % (0.0-7.0) Basophils % 0.4 % (0.0-2.0) Nucleated Red 0.0 Blood Cells % /100WBC (0.0-0 .0) Immature 0.020 Granulocytes # 10^3/ul (0.0-0 .031) Neutrophils # 2.8 10^3/ul (1.6-7 .5) Lymphocytes # 1.0 10^3/ul (0.8-2 .9) Monocytes # 0.5 10^3/ul (0.3-0 .9) Eosinophils # 0.4 10^3/ul (0.0-0 .5) Basophils # 0.0 10^3/ul (0.0-0 .1) Nucleated Red 0.0 Blood Cells # 10^3/ul (0.0-0 .0) Sodium Level 141 mmol/L (135-14 4) Potassium 3.7 Level mmol/L (3.5-5. 1) Chloride Level 99 mmol/L (97-110 ) Carbon Dioxide 29 Level mmol/L (21-31) Anion Gap 13 (5-13) Blood Urea 85 Nitrogen mg/dl (7-20) Creatinine 4.10 mg/dl (0.61-1. 24) Est Glomerular 16 Filtrat mL/min (>60) Rate mL/min Glucose Level 59 mg/dl (70-220) Calcium Level 8.7 mg/dl (8.4-10. 2) Phosphorus 6.7 Level mg/dl (2.5-4.9 ) Magnesium 2.6 Level mg/dl (1.7-2.5 ) Test 12/19/18 07:55 Bedside 72 Glucose mg/dL (70-220) TREY MONTEJO Dec 19, 2018 10:30
[2018-12-19 11:14] VITALS: BP 129/67; PULSE 75; RESP 19
[2018-12-19 12:00] VITALS: PULSE 79
[2018-12-19] MEDS ORDERED: INSULIN ASPART [NOVOLOG] 3 ML PEN SC ONE (12:46)
--- NOTE | 2018-12-19 13:14 | CONS ---
Assessment/Plan Assessment/Plan Hospital Course (Demo Recall) IMP: 1. CHF-diastolic acute on chronic 2.HTN 3.PAF 4.HL 5.Renal failure 6.SOB secondary to CHF Recc: -Tele -serial ecg's -Continue hydralazine/imdur/cardura/coreg -Continue bumex diuresis and follow dental detail representative/volume status closely -possible d/c planning Consultation Date/Type/Reason Admit Date/Time Dec 16, 2018 at 19:38 Initial Consult Date 12/18/18 Type of Consult Cardiology Reason for Consultation CHF Requesting Provider: TREY MONTEJO Date/Time of Note DATE: 12/19/18 TIME: 13:12 Exam/Review of Systems Vital Signs Vitals Vital Signs Date Temp Pulse Resp B/P (MAP) Pulse Ox O2 O2 Flow FiO2 Time Delivery Rate 12/19/18 79 12:00 12/19/18 98.4 19 129/67 96 11:14 (87) 12/17/18 Room Air 15:40 Exam Exam Review of Systems: CONSTITUTIONAL: No fevers, chills. PULMONARY: No sob CARDIOVASCULAR: No chest pain/palpitations GASTROINTESTINAL: No nausea/vomiting. GENITOURINARY: No hematuria/dysuria. MUSCULOSKELETAL: No myagias/arthalgias. PSYCHIATRIC: The patient denies depression. NEUROLOGIC: No weakness Constitutional: alert, oriented Psych: no complaints Head: normocephalic ENMT: mucosa pink and moist Neck: supple, jvd (9 cm water) Respiratory: diminished breath sounds (at bases/B) Cardiovascular: regular rate and rhythm Gastrointestinal: soft, non-tender Musculoskeletal: muscle tone (normal) Extremities: edema (none) Neurological: other (No focal deficits) Labs Result Diagram: 12/19/18 0713 12/19/18 0713 Results 24hrs Laboratory Tests Test 12/18/18 18:02 12/18/18 20:11 12/19/18 07:13 12/19/18 07:55 Bedside Glucose 87 122 72 White Blood Count 4.8 Red Blood Count 3.81 L Hemoglobin 9.7 L Hematocrit 31.5 L Mean Corpuscular 82.7 Volume Mean Corpuscular 25.5 L Hemoglobin Mean Corpuscular 30.8 L Hemoglobin Concent Red Cell 14.9 H Distribution Width Platelet Count 190 Mean Platelet Volume 11.3 H Immature 0.400 Granulocytes % Neutrophils % 59.1 Lymphocytes % 20.6 Monocytes % 11.2 H Eosinophils % 8.3 H Basophils % 0.4 Nucleated Red Blood 0.0 Cells % Immature 0.020 Granulocytes # Neutrophils # 2.8 Lymphocytes # 1.0 Monocytes # 0.5 Eosinophils # 0.4 Basophils # 0.0 Nucleated Red Blood 0.0 Cells # Sodium Level 141 Potassium Level 3.7 Chloride Level 99 Carbon Dioxide Level 29 Anion Gap 13 Blood Urea Nitrogen 85 H Creatinine 4.10 H Est Glomerular 16 L Filtrat Rate mL/min Glucose Level 59 #L Calcium Level 8.7 Phosphorus Level 6.7 H Magnesium Level 2.6 H Test 12/19/18 11:55 12/19/18 12:13 12/19/18 12:37 12/19/18 12:48 Bedside Glucose 65 L 64 L 104 130 Medications Medications Current Medications Apixaban (Eliquis) 5 mg BID PO Last administered on 12/19/18 08:07; Admin Dose 5 MG; Start 12/16/18 at 21:00 Atorvastatin Calcium (Lipitor) 80 mg QHS PO Last administered on 12/18/18 20:13; Admin Dose 80 MG; Start 12/16/18 at 21:00 Cholecalciferol (Vitamin D) 2,000 unit DAILY PO Last administered on 12/19/18 08:07; Admin Dose 2,000 UNIT; Start 12/17/18 at 09:00 Doxazosin Mesylate (Cardura) 4 mg HS PO Last administered on 12/18/18 20:13; Admin Dose 4 MG; Start 12/16/18 at 21:00 EZETIMIBE (Zetia) 10 mg HS PO Last administered on 12/18/18 20:13; Admin Dose 10 MG; Start 12/16/18 at 21:00 Hydralazine HCl (Apresoline) 100 mg TID PO Last administered on 12/19/18 12:10; Admin Dose 100 MG; Start 12/16/18 at 21:00 Nifedipine (Procardia Xl) 60 mg BID PO Last administered on 12/19/18 08:07; Admin Dose 60 MG; Start 12/16/18 at 21:00 Sevelamer Carbonate (Renvela) 0.8 gm WITH MEALS PO Last administered on 12/19/18 12:10; Admin Dose 0.8 GM; Start 12/17/18 at 07:55 Spironolactone (Aldactone) 25 mg DAILY PO Last administered on 12/19/18at 08:08; Admin Dose 25 MG; Start 12/17/18 at 09:00 IV Flush (NS 3 ml) 3 ml PER PROTOCOL IV ; Start 12/16/18 at 18:30 Ondansetron HCl (Zofran Inj) 4 mg Q6H PRN IV NAUSEA/VOMITING; Start 12/16/18 at 18:30 Acetaminophen (Tylenol Tab) 650 mg Q6H PRN PO .PAIN 1-3 OR TEMP; Start 12/16/18 at 18:30 Acetaminophen/ Hydrocodone Bitart (Chana (5/325)) 1 tab Q6H PRN PO .PAIN 4-6; Start 12/16/18 at 18:30 Morphine Sulfate (morphine) 2 mg Q4H PRN IV .PAIN 7-10 Last administered on 12/19/18at 09:19; Admin Dose 2 MG; Start 12/16/18 at 18:30 Albuterol/ Ipratropium (Duoneb) 3 ml Q2H RESP THERAPY PRN HHN shortness of breath; Start 12/16/18 at 18:30 Diagnostic Test (Pha) (Accu-Chek) 1 ea 02 XX Last administered on 12/18/18at 02:15; Admin Dose 1 EA; Start 12/17/18 at 02:00 Insulin Aspart (Novolog Insulin Pen) NOVOLOG *MILD* ALGORITHM WITH MEALS BEDTIM E SC Last administered on 12/17/18at 08:08; Admin Dose 1 UNIT; Start 12/16/18 at 21:00 Miscellaneous Information 1 ea NOTE XX ; Start 12/16/18 at 19:00 Glucose (Glutose) 15 gm Q15M PRN PO DECREASED GLUCOSE; Start 12/16/18 at 19:00 Glucose (Glutose) 22.5 gm Q15M PRN PO DECREASED GLUCOSE; Start 12/16/18 at 19:00 Dextrose (D50w Syringe) 25 ml Q15M PRN IV DECREASED GLUCOSE; Start 12/16/18 at 19:00 Dextrose (D50w Syringe) 50 ml Q15M PRN IV DECREASED GLUCOSE; Start 12/16/18 at 19:00 Glucagon (Glucagen) 1 mg Q15M PRN IM DECREASED GLUCOSE; Start 12/16/18 at 19:00 Glucose (Glutose) 15 gm Q15M PRN BUCCAL DECREASED GLUCOSE; Start 12/16/18 at 19:00 Senna/Docusate Sodium (Senokot-S) 1 tab DAILY PRN PO constipation Last administered on 12/18/18 18:04; Admin Dose 1 TAB; Start 12/17/18 at 12:00 Docusate Sodium (Colace) 100 mg BID PO Last administered on 12/19/18 08:08; Admin Dose 100 MG; Start 12/17/18 at 21:00 Mineral Oil (Fleet Mineral Oil Enema) 133 ml DAILY PRN AL constipation; Start 12/17/18 at 12:00 Insulin Aspart (Novolog Insulin Pen) 12 unit WITH MEALS SC Last administered on 12/19/18 08:12; Admin Dose 12 UNIT; Start 12/18/18 at 17:55 Insulin Glargine (Lantus) 25 units DAILY@2000 SC Last administered on 12/18/18 20:57; Admin Dose 25 UNITS; Start 12/18/18 at 20:00 Hydralazine HCl (Apresoline) 10 mg Q4H PRN IV sbp >160; Start 12/18/18 at 12:00 Carvedilol (Coreg) 6.25 mg BID PO Last administered on 12/19/18 08:07; Admin Dose 6.25 MG; Start 12/18/18 at 21:00 Isosorbide Mononitrate (Imdur) 60 mg DAILY PO Last administered on 12/19/18 08:15; Admin Dose 60 MG; Start 12/19/18 at 09:00 Bumetanide (Bumex) 2 mg BID DIURETICS PO Last administered on 12/19/18 06:14; Admin Dose 2 MG; Start 12/18/18 at 18:00 VI ADAMES Dec 19, 2018 13:14
== END 2018-12-19 13:40 | disposition home or self-care (01) | DRG 291 ==
LOC: E/R 15:10 → TEL 18:13 → OBSVTOIN 19:38 → TEL 20:06
PROVIDERS: ADMIT Internal Medicine; ATTEND Internal Medicine
DX: I13.0 Hypertensive heart and chronic kidney disease with heart failure and stage 1 through stage 4 chronic kidney disease, or unspecified chronic kidney disease (principal); I50.33 Acute on chronic diastolic (congestive) heart failure; N18.4 Chronic kidney disease, stage 4 (severe); I48.0 Paroxysmal atrial fibrillation; E11.22 Type 2 diabetes mellitus with diabetic chronic kidney disease; Z89.412 Acquired absence of left great toe; D63.1 Anemia in chronic kidney disease; I42.9 Cardiomyopathy, unspecified; K59.00 Constipation, unspecified; R60.1 Generalized edema
CPT/HCPCS: 36415; 71045; 80048; 80053; 80061; 81001; 81003; 82043; 82962; 83036; 83735; 83880; 84100; 84155; 84300; 84443; 84484; 85025; 85610; 85730; 93005; 93306; 93970; 96374; G0378; J1815; J1940; J2270

== ENCOUNTER 2019-02-17 22:07 | Inpatient (IN) | payer OTHER ==
[~2019-02-17] VITALS: Ht 170.2 cm; Wt 126.0 kg
[~2019-02-17 22:07] MED LIST changes: -CARV3.1260 PO; +CARV6.2579 PO; -ISOS30TA67 PO; +ISOS60TA PO
[2019-02-17 22:11] VITALS: Ht 170.2 cm; Wt 126.0 kg
[2019-02-18] VITALS (9 sets, daily range): BP systolic 122–141; BP diastolic 65–79; PULSE 64–69; RESP 17–20
[2019-02-18] MEDS ORDERED: ONDANSETRON 4 MG INJ IV PRN ×2 (01:00→01:30)
[2019-02-18] MEDS ORDERED: FUROSEMIDE 40 MG INJ IV ONE (01:00)
[2019-02-18] MEDS ORDERED: ACETAMINOPHEN 325 MG TAB PO PRN ×2 (01:00→01:30)
[2019-02-18] MEDS ORDERED: NITROGLYCERIN (SL) 0.4 MG TAB SL PRN (01:30)
[2019-02-18] MEDS ORDERED: BISACODYL (EC) 5 MG TAB PO PRN (01:30)
[2019-02-18] MEDS ORDERED: HEPARIN 5,000 UNIT/1 ML VIAL SC SCH (01:30)
[2019-02-18] MEDS ORDERED: NACL 0.9% 3 ML SYG IV SCH (01:30)
[2019-02-18] MEDS ORDERED: DOCUSATE SODIUM 100 MG CAP PO PRN (01:30)
[2019-02-18] MEDS ORDERED: morphine 4 MG/ML VIAL IV STA (01:54)
--- NOTE | 2019-02-18 04:14 | HP ---
Date/Time of Note Date/Time of Note DATE: 02/18/19 TIME: 04:09 Assessment/Plan VTE Prophylaxis Pharmacological prophylaxis: apixaban Lines/Catheters IV [facility]ter Type (from [facility]): Saline Lock Assessment/Plan Hospital Course This is a 43-year-old male being admitted to the telemetry floor for: #1 Volume overload: multifactorial secondary to diastolic chf, and CKD. Recent echo in November showed an ejection fraction of 60% with diastolic dysfunction. Patient did receive Lasix in the ED. We will put the patient currently on Bumex IV as patient does report better response of this medication. Will consult nephrology and Dr. Sanon #2. acute on chronic congestive heart failure, diastolic. iv bumex bid. cardio consult placed. echo in november showing ef of 60% with diastolic dysfunction. #3 acute on chronic kidney disease stage IV/V: Creatinine appears to be near baseline. -Patient has a diagnosis of stage IV kidney disease however patient states that his outpatient cellophane worker reported to him that he would need to initiate dial ysis in March of this year. -Nephrology Dr. Piña be consulted. -IV Bumex for diuresis #4 anemia: likely of chronic renal disease: Hemoglobin 7.8. No signs of bleeding. Likely secondary to underlying chronic kidney disease: We will consult nephrology. Monitor closely #5 A. fib: Currently rate controlled, continue Eliquis, home medications #6 diabetes mellitus: Last hemoglobin A1c was 8.0. Will recheck hemoglobin A 1C, resume home Lantus and insulin sliding scale with mealtime insulin #7 morbid obesity: We will check hemoglobin C, lipid panel, TSH #8 DVT GI prophylaxis: Heparin, no GI prophylaxis indicated Further treatment strategy will be implemented as per the clinical course Result Diagram: 02/17/19224902/17/192249 Results 24hrs Laboratory Tests Test 02/17/19 22:50 02/17/19 22:53 White Blood Count 8.0 # Red Blood Count 2.99 #L Hemoglobin 7.8 L Hematocrit 24.9 #L Mean Corpuscular Volume 83.3 Mean Corpuscular Hemoglobin 26.1 L Mean Corpuscular Hemoglobin Concent 31.3 L Red Cell Distribution Width 15.1 H Platelet Count 192 Mean Platelet Volume 10.9 H Immature Granulocytes % 0.800 H Neutrophils % 70.7 Lymphocytes % 14.2 L Monocytes % 7.8 Eosinophils % 6.1 Basophils % 0.4 Nucleated Red Blood Cells % 0.0 Immature Granulocytes # 0.060 H Neutrophils # 5.7 Lymphocytes # 1.1 Monocytes # 0.6 Eosinophils # 0.5 Basophils # 0.0 Nucleated Red Blood Cells # 0.0 Sodium Level 146 H Potassium Level 3.8 Chloride Level 106 Carbon Dioxide Level 26 Anion Gap 14 H Blood Urea Nitrogen 66 H Creatinine 3.91 H Est Glomerular Filtrat Rate mL/min 17 L Glucose Level 179 Calcium Level 8.7 Total Bilirubin 0.4 Direct Bilirubin 0.00 Indirect Bilirubin 0.4 Aspartate Amino Transf (AST/SGOT) 24 Alanine Aminotransferase (ALT/SGPT) 33 Alkaline Phosphatase 102 Troponin I < 0.012 B-Type Natriuretic Peptide 3150 H Total Protein 6.8 Albumin 4.0 Globulin 2.80 Albumin/Globulin Ratio 1.42 Bedside Glucose 178 HPI/ROS Admit Date/Time Admit Date/Time Feb 18, 2019 at 00:37 Hx of Present Illness Chief complaint: Shortness of breath, lower extremity swelling This is a 43-year-old male with past medical history significant for diastolic CHF, A. fib, CKD stage IV, diabetes mellitus who presents to [facility] for generalized shortness of breath, and lower extremity swelling. Patient reports that he is taking his home medications as scheduled however he continues to have lower extremity swelling. He does report that he gets short of breath when walking short distances. He reports that he does urinate still but it has been decreasing. He does see a cellophane worker as an outpatient his name he does not recall who did state that patient would likely be initiated on dialysis in March of this year. Allergies: Ibuprofen, seafood Medications: See MAI SOLORZANO Const: As per HPI Eyes : No pain discharge or redness or change in visual acuity ENT: No pain, sore throat, congestion, congestion, dysphagia or discharge Respiratory: As per HPI Cardiovascular: No chest pain, palpitation, PND, or edema GI : no change in appetite, abdominal pain, nausea, vomiting, diarrhea, constipation, or change in the color his stool Genitourinary: No dysuria, hematuria, flank pain , discharge or CVA tenderness Musculoskeletal: As per HPI Skin: No rash, bruising or hives Neuro: No headache, dizziness, syncope, seizure, focal weakness Endocrine: No polyuria, polydipsia, temperature intolerance Psych: No hallucination, depression, anxiety or suicidal ideation PMH/Family/Social Past Medical History diastolic CHF, A. fib, CKD stage IV, diabetes mellitus Medications Current Medications Ondansetron HCl (Zofran Inj) 4 mg ER BRIDGE PRN IV NAUSEA/VOMITING Last administered on 02/18/19at 02:03; Admin Dose 4 MG; Start 02/18/19 at 01:00; Stop 02/19/19 at 00:59 Acetaminophen (Tylenol Tab) 650 mg ER BRIDGE PRN PO .MILD PAIN 1-3 OR TEMP; Start 02/18/19 at 01:00; Stop 02/19/19 at 00:59 IV Flush (NS 3 ml) 3 ml PER PROTOCOL IV ; Start 02/18/19 at 01:30 Ondansetron HCl (Zofran Inj) 4 mg Q6H PRN IV NAUSEA/VOMITING; Start 02/18/19 at 01:30 Nitroglycerin (Nitroglycerin (Sl Tab) 0.4 Mg) 1 tab Q5M PRN SL .CHEST PAIN; Start 02/18/19 at 01:30 Acetaminophen (Tylenol Tab) 650 mg Q6H PRN PO .PAIN 1-3 OR TEMP; Start 02/18/19 at 01:30 Docusate Sodium (Colace) 100 mg Q12H PRN PO .CONSTIPATION; Start 02/18/19 at 01:30 Bisacodyl (Dulcolax) 5 mg DAILY PRN PO .CONSTIPATION; Start 02/18/19 at 01:30 Heparin Sodium (Porcine) (Heparin (5000 Units/1ml)) 5,000 unit Q8 SC Last administered on 02/18/19at 02:08; Admin Dose 5,000 UNIT; Start 02/18/19 at 01:30 Furosemide (Lasix) 40 mg BID DIURETICS IV ; Start 02/18/19 at 06:00 Coded Allergies: ibuprofen (Unverified Allergy, Mild, 02/18/19) Uncoded Allergies: seafood (Allergy, Severe, red rashes whole body, 12/16/18) Past Surgical History Past Surgical Hx: no surgical history, other Family History Significant Family History: no pertinent family hx Social History Alcohol Use: none Smoking Status: Never smoker Drug Use: cocaine Exam/Review of Systems Vital Signs Vitals Vital Signs Date Temp Pulse Resp B/P (MAP) Pulse Ox O2 O2 Flow FiO2 Time Delivery Rate 02/18/19 62 16 122/70 98 Room Air 03:39 (87) 02/17/19 99.7 22:11 Exam Exam General: Patient is a pleasant male currently sitting upright in bed in no acute distress HEENT: Atraumatic, normocephalic. The pupils are equal, round and reactive. Extraocular motor are intact Neck: Supple with full range of motion. No rigidity or meningismus Chest: Nontender Lungs: Coarse breath sounds at the bases bilaterally Heart: Normal S1-S2, Regular rhythm and rate. No murmur, S3, or S4 Abdomen: Soft , nontender, nondistended , bowel sounds are present. No guarding no rebound tenderness , No masses or organomegaly. No costovertebral temporal angle mass Extremities: 2+ pitting edema to bilateral lower extremities Neurologic: Normal mental status, speech normal, cranial nerves II through XII are intact, motor and sensory are intact, Additional Comments EKG: reviewed. PROCEDURE: Chest. CLINICAL INDICATION: Chest pain. TECHNIQUE: Single frontal view of the chest was obtained. COMPARISON: 12/16/2018. FINDINGS: The cardiac silhouette is magnified. The aortic arch is unremarkable. There is mild right basilar atelectasis/infiltrate. There is no vascular congestion or pleural effusion. There is no pneumothorax. IMPRESSION: Mild right basilar atelectasis/infiltrate. .Jc Evans MD, MD Date Time Electronically viewed and signed by .Jc Evans MD, MD on 02/18/2019 00:33 .T/ CC: GLORIA GUADARRAMA [id number] [place] Feb 18, 2019 04:14
[2019-02-18] MEDS ORDERED: FUROSEMIDE 40 MG INJ IV SCH (06:00)
[2019-02-18] MEDS ORDERED: BUMETANIDE 1 MG INJ IV SCH (06:00)
[2019-02-18] MEDS: BUMETANIDE 1 MG INJ IV SCH ×2 (06:18→17:23)
[2019-02-18] MEDS ORDERED: DEXTROSE 50% 50 ML SYRINGE IV PRN ×2 (06:30)
[2019-02-18] MEDS ORDERED: GLUCOSE GEL 15 GRAM TUBE BUCCAL PRN (06:30)
[2019-02-18] MEDS ORDERED: GLUCOSE GEL 15 GRAM TUBE PO PRN ×2 (06:30)
[2019-02-18] MEDS ORDERED: GLUCAGON 1 MG INJ IM PRN (06:30)
[2019-02-18] MEDS: INSULIN ASPART [NOVOLOG] 3 ML PEN SC SCH ×7 (07:51→20:48)
[2019-02-18] MEDS ORDERED: INSULIN ASPART [NOVOLOG] 3 ML PEN SC SCH (08:00)
[2019-02-18] MEDS ORDERED: NON-FORMULARY/PATIENT OWN MED (Insulin Lispro (Humalog Kwikpen U-100) 15 UNIT) SQ SCH (08:00)
[2019-02-18] MEDS: SEVELAMER CARBONATE 0.8 GM PKT PO SCH ×3 (08:03→17:23)
[2019-02-18] MEDS: POTASSIUM CHLORIDE (SR) 10 MEQ TAB PO SCH ×2 (08:23→20:35)
[2019-02-18] MEDS: SPIRONOLACTONE 25 MG TAB PO SCH (08:23)
[2019-02-18] MEDS: ISOSORBIDE MONONITRATE(SR)60 MG TAB PO SCH (08:24)
[2019-02-18] MEDS: morphine 2 MG INJ IV PRN ×2 (08:25→23:48)
[2019-02-18] MEDS ORDERED: NIFEdipine (XL) 60 MG TAB PO SCH (09:00)
[2019-02-18] MEDS ORDERED: APIXABAN 5 MG TABLET PO SCH (09:00)
--- NOTE | 2019-02-18 10:33 | PN ---
Date/Time of Note Date/Time of Note DATE: 02/18/19 TIME: 10:33 Assessment/Plan VTE Prophylaxis Risk score (from [facility])>0 risk: 2 SCD applied (from [facility] [place]): No SCD contraindicated: other Pharmacological prophylaxis: NA/contraindicated Pharm contraindication: anticoag not tolerated Lines/Catheters [facility] Saline Lock Urinary Cath still in place: No Assessment/Plan Assessment/Plan 1. Acute on chronic diastolic heart failure - Cardiology consultation appreciated and will continue diuresis - ECHO from November shows EF 60% - monitor I/O and daily weights 2. MARIA DEL CARMEN on CKD - patient requesting to follow up with outpatient intensive care nurse if possible. does not want to start HD during admission - Nephrology consulted for assistance with diuretic dosages 3. Anemia of chronic disease - no paloma bleeding noted - Hgb 7.8 and most likely secondary to renal disease 4. Afib - currently rate controlled - given anemia, Cardiology recommending holding anticoagulation 5. Diabetes Mellitus - A1c ordered - continue insulin and ISS 6. Morbid obesity 7. Abdominal distension - concerned given mother had a large "tumor" removed but unsure type - discussed if does not improve after diuresis, will check CT abd/pelvis 8. Disposition - Continue diuresing and when closer to dry weight, will d/c home Result Diagram: 02/17/19224902/17/190 Results 24hrs Laboratory Tests Test 02/17/19 22:50 02/17/19 22:53 02/18/19 05:06 02/18/19 07:42 White Blood Count 8.0 # Red Blood Count 2.99 #L Hemoglobin 7.8 L Hematocrit 24.9 #L Mean Corpuscular 83.3 Volume Mean Corpuscular 26.1 L Hemoglobin Mean Corpuscular 31.3 L Hemoglobin Concent Red Cell 15.1 H Distribution Width Platelet Count 192 Mean Platelet Volume 10.9 H Immature 0.800 H Granulocytes % Neutrophils % 70.7 Lymphocytes % 14.2 L Monocytes % 7.8 Eosinophils % 6.1 Basophils % 0.4 Nucleated Red Blood 0.0 Cells % Immature 0.060 H Granulocytes # Neutrophils # 5.7 Lymphocytes # 1.1 Monocytes # 0.6 Eosinophils # 0.5 Basophils # 0.0 Nucleated Red Blood 0.0 Cells # Sodium Level 146 H Potassium Level 3.8 Chloride Level 106 Carbon Dioxide Level 26 Anion Gap 14 H Blood Urea Nitrogen 66 H Creatinine 3.91 H Est Glomerular 17 L Filtrat Rate mL/min Glucose Level 179 Calcium Level 8.7 Total Bilirubin 0.4 Direct Bilirubin 0.00 Indirect Bilirubin 0.4 Aspartate Amino 24 Transf (AST/SGOT) Alanine 33 Aminotransferase (AL T/SGPT) Alkaline Phosphatase 102 Troponin I < 0.012 0.016 B-Type Natriuretic 3150 H Peptide Total Protein 6.8 Albumin 4.0 Globulin 2.80 Albumin/Globulin 1.42 Ratio Bedside Glucose 178 116 Creatine Kinase 335 H Creatine Kinase 1.4 Index Creatinine Kinase MB 4.65 H (Mass) Subjective 24 Hr Interval Summary Free Text/Dictation Patient still with SOB and swelling in legs bilaterally. States not urinating very often. Would like to hold off starting HD while inpatient and will plan to follow up as outpatient with his Director Of Supply Chain if possible. Exam/Review of Systems Exam Vitals Vital Signs Date Temp Pulse Resp B/P (MAP) Pulse Ox O2 O2 Flow FiO2 Time Delivery Rate 02/18/19 68 08:28 02/18/19 Nasal 2.0 07:40 Cannula 02/18/19 98.0 19 139/79 97 07:11 (99) Exam General: no acute distress, obese Neck: Supple Chest: Nontender Lungs: Coarse breath sounds at the bases bilaterally. no wheezing Heart: Normal S1-S2, Regular rhythm and rate. No murmur, S3, or S4 Abdomen: Soft , nontender, distended, bowel sounds are present. No guarding no rebound tenderness Extremities: 1+ pitting edema to bilateral lower extremities Results Results 24hrs Laboratory Tests Test 02/17/19 22:50 02/17/19 22:53 02/18/19 05:06 02/18/19 07:42 White Blood Count 8.0 # Red Blood Count 2.99 #L Hemoglobin 7.8 L Hematocrit 24.9 #L Mean Corpuscular 83.3 Volume Mean Corpuscular 26.1 L Hemoglobin Mean Corpuscular 31.3 L Hemoglobin Concent Red Cell 15.1 H Distribution Width Platelet Count 192 Mean Platelet Volume 10.9 H Immature 0.800 H Granulocytes % Neutrophils % 70.7 Lymphocytes % 14.2 L Monocytes % 7.8 Eosinophils % 6.1 Basophils % 0.4 Nucleated Red Blood 0.0 Cells % Immature 0.060 H Granulocytes # Neutrophils # 5.7 Lymphocytes # 1.1 Monocytes # 0.6 Eosinophils # 0.5 Basophils # 0.0 Nucleated Red Blood 0.0 Cells # Sodium Level 146 H Potassium Level 3.8 Chloride Level 106 Carbon Dioxide Level 26 Anion Gap 14 H Blood Urea Nitrogen 66 H Creatinine 3.91 H Est Glomerular 17 L Filtrat Rate mL/min Glucose Level 179 Calcium Level 8.7 Total Bilirubin 0.4 Direct Bilirubin 0.00 Indirect Bilirubin 0.4 Aspartate Amino 24 Transf (AST/SGOT) Alanine 33 Aminotransferase (AL T/SGPT) Alkaline Phosphatase 102 Troponin I < 0.012 0.016 B-Type Natriuretic 3150 H Peptide Total Protein 6.8 Albumin 4.0 Globulin 2.80 Albumin/Globulin 1.42 Ratio Bedside Glucose 178 116 Creatine Kinase 335 H Creatine Kinase 1.4 Index Creatinine Kinase MB 4.65 H (Mass) Medications Medication Current Medications IV Flush (NS 3 ml) 3 ml PER PROTOCOL IV ; Start 02/18/19 at 01:30 Ondansetron HCl (Zofran Inj) 4 mg Q6H PRN IV NAUSEA/VOMITING; Start 02/18/19 at 01:30 Nitroglycerin (Nitroglycerin (Sl Tab) 0.4 Mg) 1 tab Q5M PRN SL .CHEST PAIN; Start 02/18/19 at 01:30 Acetaminophen (Tylenol Tab) 650 mg Q6H PRN PO .PAIN 1-3 OR TEMP; Start 02/18/19 at 01:30 Docusate Sodium (Colace) 100 mg Q12H PRN PO .CONSTIPATION; Start 02/18/19 at 01:30 Bisacodyl (Dulcolax) 5 mg DAILY PRN PO .CONSTIPATION; Start 02/18/19 at 01:30 Insulin Aspart (Novolog Insulin Pen) NOVOLOG *MILD* ALGORITHM WITH MEALS BEDTIME SC ; Start 02/18/19 at 08:00 Apixaban (Eliquis) 5 mg BID PO Last administered on 02/18/19at 08:24; Admin Dose 5 MG; Start 02/18/19 at 09:00 Atorvastatin Calcium (Lipitor) 80 mg QHS PO ; Start 02/18/19 at 21:00 Carvedilol (Coreg) 6.25 mg BID PO Last administered on 02/18/19at 08:23; Admin Dose 6.25 MG; Start 02/18/19 at 09:00 Doxazosin Mesylate (Cardura) 4 mg HS PO ; Start 02/18/19 at 21:00 EZETIMIBE (Zetia) 10 mg HS PO ; Start 02/18/19 at 21:00 Hydralazine HCl (Apresoline) 50 mg Q8H PRN PO SBP >170; Start 02/18/19 at 04:30 Hydralazine HCl (Apresoline) 100 mg TID PO Last administered on 02/18/19at 08:22; Admin Dose 100 MG; Start 02/18/19 at 09:00 Insulin Glargine (Lantus) 30 units QHS SC ; Start 02/18/19 at 21:00 Isosorbide Mononitrate (Imdur) 60 mg DAILY PO Last administered on 02/18/19 08:24; Admin Dose 60 MG; Start 02/18/19 at 09:00 Nifedipine (Procardia Xl) 60 mg BID PO Last administered on 02/18/19 08:24; Admin Dose 60 MG; Start 02/18/19 at 09:00 Potassium Chloride (Klor-Con 10) 10 meq BID PO Last administered on 02/18/19 08:23; Admin Dose 10 MEQ; Start 02/18/19 at 09:00 Sevelamer Carbonate (Renvela) 0.8 gm WITH MEALS PO Last administered on 02/18/19 08:03; Admin Dose 0.8 GM; Start 02/18/19 at 08:00 Spironolactone (Aldactone) 25 mg DAILY PO Last administered on 02/18/19 08:23; Admin Dose 25 MG; Start 02/18/19 at 09:00 Diagnostic Test (Pha) (Accu-Chek) 1 ea 02 XX ; Start 02/19/19 at 02:00 Morphine Sulfate (morphine) 2 mg Q4H PRN IV SEVERE PAIN LEVEL 7-10 Last administered on 02/18/19 08:25; Admin Dose 2 MG; Start 02/18/19 at 05:30 Bumetanide (Bumex) 1 mg BID DIURETICS IV Last administered on 02/18/19 06:18; Admin Dose 1 MG; Start 02/18/19 at 06:00 Miscellaneous Information 1 ea NOTE XX ; Start 02/18/19 at 06:30 Glucose (Glutose) 15 gm Q15M PRN PO DECREASED GLUCOSE; Start 02/18/19 at 06:30 Glucose (Glutose) 22.5 gm Q15M PRN PO DECREASED GLUCOSE; Start 02/18/19 at 06:30 Dextrose (D50w Syringe) 25 ml Q15M PRN IV DECREASED GLUCOSE; Start 02/18/19 at 06:30 Dextrose (D50w Syringe) 50 ml Q15M PRN IV DECREASED GLUCOSE; Start 02/18/19 at 06:30 Glucagon (Glucagen) 1 mg Q15M PRN IM DECREASED GLUCOSE; Start 02/18/19 at 06:30 Glucose (Glutose) 15 gm Q15M PRN BUCCAL DECREASED GLUCOSE; Start 02/18/19 at 06:30 Insulin Aspart (Novolog Insulin Pen) 15 unit WITH MEALS SC ; Start 02/18/19 at 08:00 ZENON CABRERA MD Feb 18, 2019 10:33
[2019-02-18] MEDS ORDERED: METOLAZONE 10 MG TAB PO ONE (11:00)
--- NOTE | 2019-02-18 12:48 | CONS ---
Consultation Date/Type/Reason Admit Date/Time Feb 18, 2019 at 00:37 Type of Consult Cardiology Date/Time of Note DATE: 02/18/19 TIME: 12:47 Hx of Present Illness 43 yo with parox a. fib - H/H down now - ok holding eliquis as in sinus now pending anemia evaluation. SCD vs ambulation. Full note dictates. # [id number] Past Medical History Home Meds Active Scripts Isosorbide Mononitrate* (Isosorbide Mononitrate*) 60 Mg Tab.er.24h, 60 MG PO DAILY, #30 TAB 2 Refills Prov:TREY MONTEJO 12/19/18 Carvedilol* (Carvedilol*) 6.25 Mg Tablet, 6.25 MG PO BID for 30 Days, #60 TAB 2 Refills Prov:TREY MONTEJO 12/19/18 Sevelamer Carbonate* (Renvela*) 800 Mg Tablet, 800 MG PO WITH MEALS, #60 TAB Prov:DAPHNE GALAN 09/26/18 Doxazosin Mesylate* (Cardura*) 4 Mg Tablet, 4 MG PO HS, #60 TAB Prov:DAPHNE GALAN 09/26/18 Nifedipine* (Nifedipine ER*) 60 Mg Tablet.sa, 60 MG PO BID, #60 TAB.SA Prov:BREANA MORALES NP 05/09/18 Bumetanide* (Bumetanide*) 2 Mg Tablet, 2 MG PO BID, #180 TAB Prov:LOLIS CROWDER MD 05/09/18 Reported Medications Hydralazine Hcl* (Hydralazine Hcl*) 100 Mg Tablet, 100 MG PO TID, #90 TAB 05/07/18 Potassium Chloride* (K-Dur*) 10 Meq Tab.prt.sr, 10 MEQ PO BID, TAB 05/06/18 Hydralazine Hcl* (Hydralazine Hcl*) 50 Mg Tab, 50 MG PO Q8 PRN for ELEVATED BLOOD PRESSURE, #90 TAB 05/06/18 Ezetimibe* (Zetia*) 10 Mg Tablet, 10 MG PO HS, TAB 05/06/18 Apixaban* (Eliquis*) 5 Mg Tablet, 5 MG PO BID, TAB 05/06/18 Spironolactone* (Aldactone*) 25 Mg Tablet, 25 MG PO DAILY, #30 TAB 8/21/18 Cholecalciferol* (Vitamin D3*) 1,000 Unit Tablet, 2000 UNIT PO DAILY, TAB 04/16/18 Insulin Lispro (Humalog Kwikpen U-100) 100 Unit/1 Ml Insuln.pen, 15 UNIT SQ WITH MEALS, EA 04/16/18 Insulin Glargine* (Lantus*) 100 Unit/Ml Soln, 30 UNIT SC QHS, #1 VIAL 02/28/18 Atorvastatin* (Atorvastatin*) 80 Mg Tablet, 80 MG PO QHS, #30 TAB 02/07/18 Medications Current Medications IV Flush (NS 3 ml) 3 ml PER PROTOCOL IV ; Start 02/18/19 at 01:30 Ondansetron HCl (Zofran Inj) 4 mg Q6H PRN IV NAUSEA/VOMITING; Start 02/18/19 at 01:30 Nitroglycerin (Nitroglycerin (Sl Tab) 0.4 Mg) 1 tab Q5M PRN SL .CHEST PAIN; Start 02/18/19 at 01:30 Acetaminophen (Tylenol Tab) 650 mg Q6H PRN PO .PAIN 1-3 OR TEMP; Start 02/18/19 at 01:30 Docusate Sodium (Colace) 100 mg Q12H PRN PO .CONSTIPATION; Start 02/18/19 at 01:30 Bisacodyl (Dulcolax) 5 mg DAILY PRN PO .CONSTIPATION; Start 02/18/19 at 01:30 Insulin Aspart (Novolog Insulin Pen) NOVOLOG *MILD* ALGORITHM WITH MEALS BEDTIME SC ; Start 02/18/19 at 08:00 Apixaban (Eliquis) 5 mg BID PO Last administered on 02/18/19at 08:24; Admin Dose 5 MG; Start 02/18/19 at 09:00 Atorvastatin Calcium (Lipitor) 80 mg QHS PO ; Start 02/18/19 at 21:00 Carvedilol (Coreg) 6.25 mg BID PO Last administered on 02/18/19at 08:23; Admin Dose 6.25 MG; Start 02/18/19 at 09:00 Doxazosin Mesylate (Cardura) 4 mg HS PO ; Start 02/18/19 at 21:00 EZETIMIBE (Zetia) 10 mg HS PO ; Start 02/18/19 at 21:00 Hydralazine HCl (Apresoline) 50 mg Q8H PRN PO SBP >170; Start 02/18/19 at 04:30 Hydralazine HCl (Apresoline) 100 mg TID PO Last administered on 02/18/19 12:28; Admin Dose 100 MG; Start 02/18/19 at 09:00 Insulin Glargine (Lantus) 30 units QHS SC ; Start 02/18/19 at 21:00 Isosorbide Mononitrate (Imdur) 60 mg DAILY PO Last administered on 02/18/19 08:24; Admin Dose 60 MG; Start 02/18/19 at 09:00 Nifedipine (Procardia Xl) 60 mg BID PO Last administered on 02/18/19 08:24; Admin Dose 60 MG; Start 02/18/19 at 09:00 Potassium Chloride (Klor-Con 10) 10 meq BID PO Last administered on 02/18/19 08:23; Admin Dose 10 MEQ; Start 02/18/19 at 09:00 Sevelamer Carbonate (Renvela) 0.8 gm WITH MEALS PO Last administered on 02/18/19 11:45; Admin Dose 0.8 GM; Start 02/18/19 at 08:00 Spironolactone (Aldactone) 25 mg DAILY PO Last administered on 02/18/19 08:23; Admin Dose 25 MG; Start 02/18/19 at 09:00 Diagnostic Test (Pha) (Accu-Chek) 1 ea 02 XX ; Start 02/19/19 at 02:00 Morphine Sulfate (morphine) 2 mg Q4H PRN IV SEVERE PAIN LEVEL 7-10 Last administered on 02/18/19 08:25; Admin Dose 2 MG; Start 02/18/19 at 05:30 Bumetanide (Bumex) 1 mg BID DIURETICS IV Last administered on 02/18/19 06:18; Admin Dose 1 MG; Start 02/18/19 at 06:00 Miscellaneous Information 1 ea NOTE XX ; Start 02/18/19 at 06:30 Glucose (Glutose) 15 gm Q15M PRN PO DECREASED GLUCOSE; Start 02/18/19 at 06:30 Glucose (Glutose) 22.5 gm Q15M PRN PO DECREASED GLUCOSE; Start 02/18/19 at 06:30 Dextrose (D50w Syringe) 25 ml Q15M PRN IV DECREASED GLUCOSE; Start 02/18/19 at 06:30 Dextrose (D50w Syringe) 50 ml Q15M PRN IV DECREASED GLUCOSE; Start 02/18/19 at 06:30 Glucagon (Glucagen) 1 mg Q15M PRN IM DECREASED GLUCOSE; Start 02/18/19 at 06:30 Glucose (Glutose) 15 gm Q15M PRN BUCCAL DECREASED GLUCOSE; Start 02/18/19 at 06:30 Insulin Aspart (Novolog Insulin Pen) 15 unit WITH MEALS SC Last administered on 02/18/19at 11:59; Admin Dose 15 UNIT; Start 02/18/19 at 08:00 Allergies: Coded Allergies: ibuprofen (Unverified Allergy, Mild, 02/18/19) Uncoded Allergies: seafood (Allergy, Severe, red rashes whole body, 12/16/18) Past Surgical History Past Surgical Hx: no surgical history, other Social History Alcohol Use: none Smoking Status: Current some day smoker Drug Use: cocaine Exam/Review of Systems Vital Signs Vitals Vital Signs Date Temp Pulse Resp B/P (MAP) Pulse Ox O2 O2 Flow FiO2 Time Delivery Rate 02/18/19 64 12:14 02/18/19 97.6 20 141/74 90 Room Air 11:54 (96) 02/18/19 2.0 07:40 Labs Result Diagram: 02/17/190 02/17/19 2250 Results 24hrs Laboratory Tests Test 02/17/19 22:50 02/17/19 22:53 02/18/19 05:04 02/18/19 05:06 White Blood Count 8.0 # Red Blood Count 2.99 #L Hemoglobin 7.8 L Hematocrit 24.9 #L Mean Corpuscular 83.3 Volume Mean Corpuscular 26.1 L Hemoglobin Mean Corpuscular 31.3 L Hemoglobin Concent Red Cell 15.1 H Distribution Width Platelet Count 192 Mean Platelet Volume 10.9 H Immature 0.800 H Granulocytes % Neutrophils % 70.7 Lymphocytes % 14.2 L Monocytes % 7.8 Eosinophils % 6.1 Basophils % 0.4 Nucleated Red Blood 0.0 Cells % Immature 0.060 H Granulocytes # Neutrophils # 5.7 Lymphocytes # 1.1 Monocytes # 0.6 Eosinophils # 0.5 Basophils # 0.0 Nucleated Red Blood 0.0 Cells # Sodium Level 146 H Potassium Level 3.8 Chloride Level 106 Carbon Dioxide Level 26 Anion Gap 14 H Blood Urea Nitrogen 66 H Creatinine 3.91 H Est Glomerular 17 L Filtrat Rate mL/min Glucose Level 179 Calcium Level 8.7 Total Bilirubin 0.4 Direct Bilirubin 0.00 Indirect Bilirubin 0.4 Aspartate Amino 24 Transf (AST/SGOT) Alanine 33 Aminotransferase (AL T/SGPT) Alkaline Phosphatase 102 Troponin I < 0.012 0.016 B-Type Natriuretic 3150 H Peptide Total Protein 6.8 Albumin 4.0 Globulin 2.80 Albumin/Globulin 1.42 Ratio Bedside Glucose 178 Vitamin D 45.2 1,25-Dihydroxy Creatine Kinase 335 H Creatine Kinase 1.4 Index Creatinine Kinase MB 4.65 H (Mass) Test 02/18/19 07:42 02/18/19 10:32 02/18/19 11:42 Bedside Glucose 116 148 Creatine Kinase 270 H Creatine Kinase 1.6 Index Creatinine Kinase MB 4.37 H (Mass) Troponin I 0.014 Medications Medications Current Medications IV Flush (NS 3 ml) 3 ml PER PROTOCOL IV ; Start 02/18/19 at 01:30 Ondansetron HCl (Zofran Inj) 4 mg Q6H PRN IV NAUSEA/VOMITING; Start 02/18/19 at 01:30 Nitroglycerin (Nitroglycerin (Sl Tab) 0.4 Mg) 1 tab Q5M PRN SL .CHEST PAIN; Start 02/18/19 at 01:30 Acetaminophen (Tylenol Tab) 650 mg Q6H PRN PO .PAIN 1-3 OR TEMP; Start 02/18/19 at 01:30 Docusate Sodium (Colace) 100 mg Q12H PRN PO .CONSTIPATION; Start 02/18/19 at 01:30 Bisacodyl (Dulcolax) 5 mg DAILY PRN PO .CONSTIPATION; Start 02/18/19 at 01:30 Insulin Aspart (Novolog Insulin Pen) NOVOLOG *MILD* ALGORITHM WITH MEALS BEDTIME SC ; Start 02/18/19 at 08:00 Apixaban (Eliquis) 5 mg BID PO Last administered on 02/18/19at 08:24; Admin Dose 5 MG; Start 02/18/19 at 09:00 Atorvastatin Calcium (Lipitor) 80 mg QHS PO ; Start 02/18/19 at 21:00 Carvedilol (Coreg) 6.25 mg BID PO Last administered on 02/18/19 08:23; Admin Dose 6.25 MG; Start 02/18/19 at 09:00 Doxazosin Mesylate (Cardura) 4 mg HS PO ; Start 02/18/19 at 21:00 EZETIMIBE (Zetia) 10 mg HS PO ; Start 02/18/19 at 21:00 Hydralazine HCl (Apresoline) 50 mg Q8H PRN PO SBP >170; Start 02/18/19 at 04:30 Hydralazine HCl (Apresoline) 100 mg TID PO Last administered on 02/18/19 12:28; Admin Dose 100 MG; Start 02/18/19 at 09:00 Insulin Glargine (Lantus) 30 units QHS SC ; Start 02/18/19 at 21:00 Isosorbide Mononitrate (Imdur) 60 mg DAILY PO Last administered on 02/18/19 08:24; Admin Dose 60 MG; Start 02/18/19 at 09:00 Nifedipine (Procardia Xl) 60 mg BID PO Last administered on 02/18/19 08:24; Admin Dose 60 MG; Start 02/18/19 at 09:00 Potassium Chloride (Klor-Con 10) 10 meq BID PO Last administered on 02/18/19 08:23; Admin Dose 10 MEQ; Start 02/18/19 at 09:00 Sevelamer Carbonate (Renvela) 0.8 gm WITH MEALS PO Last administered on 02/18/19 11:45; Admin Dose 0.8 GM; Start 02/18/19 at 08:00 Spironolactone (Aldactone) 25 mg DAILY PO Last administered on 02/18/19 08:23; Admin Dose 25 MG; Start 02/18/19 at 09:00 Diagnostic Test (Pha) (Accu-Chek) 1 ea 02 XX ; Start 02/19/19 at 02:00 Morphine Sulfate (morphine) 2 mg Q4H PRN IV SEVERE PAIN LEVEL 7-10 Last administered on 02/18/19 08:25; Admin Dose 2 MG; Start 02/18/19 at 05:30 Bumetanide (Bumex) 1 mg BID DIURETICS IV Last administered on 6/25/19at 06:18; Admin Dose 1 MG; Start 02/18/19 at 06:00 Miscellaneous Information 1 ea NOTE XX ; Start 02/18/19 at 06:30 Glucose (Glutose) 15 gm Q15M PRN PO DECREASED GLUCOSE; Start 02/18/19 at 06:30 Glucose (Glutose) 22.5 gm Q15M PRN PO DECREASED GLUCOSE; Start 02/18/19 at 06:30 Dextrose (D50w Syringe) 25 ml Q15M PRN IV DECREASED GLUCOSE; Start 02/18/19 at 06:30 Dextrose (D50w Syringe) 50 ml Q15M PRN IV DECREASED GLUCOSE; Start 02/18/19 at 06:30 Glucagon (Glucagen) 1 mg Q15M PRN IM DECREASED GLUCOSE; Start 02/18/19 at 06:30 Glucose (Glutose) 15 gm Q15M PRN BUCCAL DECREASED GLUCOSE; Start 02/18/19 at 06:30 Insulin Aspart (Novolog Insulin Pen) 15 unit WITH MEALS SC Last administered on 02/18/19at 11:59; Admin Dose 15 UNIT; Start 02/18/19 at 08:00 DELIA BILLY MD Feb 18, 2019 12:48
--- NOTE | 2019-02-18 16:20 | CONS ---
DATE OF ADMISSION: 02/18/2019 DATE OF CONSULTATION: 02/18/2019 TYPE OF CONSULTATION: Cardiology. REFERRING PHYSICIAN: Sami Mo MD REASON FOR EVALUATION: CHF exacerbation. HISTORY OF PRESENT ILLNESS: Mr. Wilson is a 43-year-old gentleman known to me from prior admissions with history of hypertension, dyslipidemia, history of heart failure with last documented ejection fr action of 60%, who comes in hospital now for evaluation of fluid overload. I have been asked to see the patient in consultation for further cardiac evaluation. It appears that the patient is once agai n in fluid overload. He does not report any chest pain to me at this particular point. He has a his tory of paroxysmal atrial fibrillation, but he is currently in sinus. I think for now, conservative therapy is expected. Most likely cause for his CHF exacerbation is renal decompensation. We will co juancarlos to monitor the patient for now. There is no clear evidence of cardiac decompensation at this particular point. PAST MEDICAL HISTORY: 1. History of hypertension. 2. History of dyslipidemia. 3. History of paroxysmal atrial fibrillation, now in sinus. 4. History of renal insufficiency stage IV. 5. History of heart failure with preserved ejection fraction. ALLERGIES: THE PATIENT IS ALLERGIC TO: 1. IBUPROFEN. 2. SEAFOOD. SOCIAL HISTORY: The patient does not smoke, does not drink, does not use drugs. FAMILY HISTORY: Negative for sudden cardiac or premature coronary artery disease. MEDICATIONS: Here include: 1. Atorvastatin 80 mg. 2. Cardura 4 mg daily. 3. Zetia. 4. Insulin sliding scale. 5. Coreg 6.25 mg daily. 6. Eliquis 5 mg p.o. b.i.d. 7. Nifedipine 60 mg p.o. b.i.d. 8. Spironolactone. REVIEW OF SYSTEMS: CONSTITUTIONAL: No fevers, no chills, no recent weight change but with trace edema. HEENT: No changes in vision or hearing. CARDIAC: No chest pain reported now. RESPIRATORY: Shortness of breath. GASTROINTESTINAL: No nausea, vomiting. GENITOURINARY: No dysuria, hematuria. NEUROLOGIC: No focal neurologic deficit. HEMATOLOGIC: No easy bruising. PSYCHIATRIC: History of depression. PHYSICAL EXAMINATION: VITAL SIGNS: Temperature is 97.6, heart rate 64, blood pressure 141/74. GENERAL: He is a well-nourished gentleman in no acute distress, alert and oriented x3, aware of his condition. HEENT: Head: Normocephalic, atraumatic. Eyes are anicteric. NECK: Supple. JVD is 6 cm. There is no lymphadenopathy. No thyromegaly. HEART: Regular with soft systolic murmur. PMI is minimally displaced. There is no S3. LUNGS: Coarse to bases. ABDOMEN: Distended. Bowel sounds are present. There is no hepatosplenomegaly. GENITOURINARY: Intact. EXTREMITIES: No cyanosis. He has 2+ edema in legs. LABORATORY DATA: White blood cell count is 2.8, hemoglobin is 7.8, platelets 192. INR is 0.9. His creatinine is 3.91 now. ASSESSMENT AND PLAN: 1. Congestive heart failure. The patient has heart failure, acute on chronic with decompensation, n ow likely in the setting of acute renal insufficiency. Continue to monitor clinically. 2. The patient with history of paroxysmal atrial fibrillation. He is in sinus rhythm now. He is on Eliquis with low hemoglobin. I think it would be reasonable to hold off his Eliquis right now unles s there is another indication for it. 3. Acute renal failure, acute on chronic. Renal team will follow up. 4. Hypertension. Blood pressure is well optimized now. Continue to monitor closely. I would like to thank Dr. Mo for referring this patient for my evaluation. Dictated By: DELIA BILLY MD ML/NTS Conf#: [id number] DID#: [id number] CC: SAMI MO MD; ZENON CABRERA MD;*EndCC*
--- NOTE | 2019-02-18 17:23 | CONS ---
DATE OF ADMISSION: 02/18/2019 DATE OF CONSULTATION: 02/18/2019 TYPE OF CONSULTATION: Nephrology. REASON FOR CONSULTATION: CKD stage V. PHYSICIAN REQUESTING CONSULT: Sami Mo MD HISTORY OF PRESENT ILLNESS: This is a 43-year-old male with past medical history of CKD stage IV/V. The patient's primary inside barrel lathe operator is Dr. Willoughby in outpatient setting. The patient has had progres sive CKD and most recently, a decision has been made by his primary inside barrel lathe operator to initiate hemodial ysis in 03/2019. The patient also has history of heart failure, AFib, diabetes and presents to [facility] with increased lower extremity edema and swelling, scrotal edema over the pas t several days. The patient upon arrival to the emergency room had a chest x-ray which showed findin gs of mild basilar atelectasis. The patient in the emergency room was started on diuretic therapy an d admitted to telemetry for further evaluation. In terms of patient's renal history, as stated above, the patient has progressive CKD stage IV/V. Th e patient has primary inside barrel lathe operator and has arranged for possible outpatient hemodialysis to be initia bel around 03/2019 after patient's AV fistula placement. The patient himself denies any hemoptysis, hematemesis, hematochezia. PAST MEDICAL HISTORY: History for CKD stage IV/V, history of CHF, history of anemia, history of atri al fibrillation, history of hypertension, history of heart failure, history of diabetes. PAST SURGICAL HISTORY: Status post left great toe amputation. FAMILY HISTORY: No family history of kidney disease. SOCIAL HISTORY: Does not drink, smoke or do drugs. MEDICATIONS: Have been reviewed. ALLERGIES: PLEASE SEE LIST. REVIEW OF SYSTEMS: A 14-point review of systems was conducted. Pertinent positives as stated in the HPI, otherwise negative. PHYSICAL EXAMINATION: VITAL SIGNS: Blood pressure is 147/70, respiration 19, pulse 79, temperature 98.6. HEENT: Head is normocephalic. NECK: Supple. Positive JVD. HEART: Regular rate. LUNGS: Show diminished breath sounds at the base. ABDOMEN: Soft, nontender to palpation. EXTREMITIES: Negative for clubbing or cyanosis. Positive edema. DERMATOLOGIC: No rashes. GENITOURINARY: The patient has scrotal edema. MUSCULOSKELETAL: No joint effusion. NEUROLOGIC: No focal deficits. LABORATORY DATA: Reviewed. IMAGING STUDIES: Have been reviewed. ASSESSMENT AND PLAN: This is a 43-year-old male who presents with: 1. Progressive chronic kidney disease stage IV/V. The patient's renal function is near or at baseli ne. Recommendation at this point is to continue current medical management. Continue diuretic regim en. We will repeat a urinalysis. There is no immediate need for renal placement therapy at this [place] e. Otherwise, continue renally dose meds, avoid nephrotoxins. 2. Volume overload. Etiology is secondary to acute heart failure, advanced chronic kidney disease. Continue current diuretic regimen. Monitor I's and O's and electrolytes closely. 3. Anemia. Etiology is likely to chronic kidney disease. We will check an iron panel to rule out i fernando deficiency. We will give patient Epogen as needed. 4. Mineral bone disorder. Monitor calcium and phosphorus levels. We will check PTH and vitamin D25 level. We will continue to monitor. 5. Atrial fibrillation, currently rate controlled. Continue medical management. 6. Diabetes. Continue current insulin regimen. 7. Morbid obesity. Continue dietary modification. 8. Gastrointestinal and deep venous thrombosis prophylaxis. Thank you, Dr. Mo, for this interesting consult. It will be a pleasure to follow patient with y ou throughout the hospital course. Dictated By: LUIS DICKINSON DO NR/NTS Conf#: [id number] DID#: [id number] CC: ZENON CABRERA MD; SAMI MO MD;*EndCC*
[2019-02-18] MEDS: EZETIMIBE 10 MG TAB PO SCH (20:35)
[2019-02-18] MEDS: DOXAZOSIN 4 MG TAB PO SCH (20:36)
[2019-02-18] MEDS: ATORVASTATIN 80 MG TAB PO SCH (20:37)
[2019-02-18] MEDS: INSULIN GLARGINE [LANTus] (100 UNITS/ML) SYG SC SCH (20:47)
[2019-02-18] MEDS: NIFEdipine (XL) 30 MG TAB PO SCH (20:53)
[2019-02-18] MEDS ORDERED: VANCOMYCIN IV PER PHARMACY XX SCH (23:00)
[2019-02-19] VITALS (8 sets, daily range): BP systolic 127–159; BP diastolic 65–75; PULSE 65–80; RESP 18–20
[2019-02-19] MEDS ORDERED: VANCOMYCIN HCL 2 GM in SOD CHLORIDE 0.9% 500 ML IVPB ONE ×4 (01:00)
[2019-02-19] MEDS: DIPHENHYDRAMINE 50 MG CAP PO PRN (01:08)
[2019-02-19] MEDS: ACCU-CHEK XX SCH (02:03)
[2019-02-19] MEDS: BUMETANIDE 1 MG INJ IV SCH ×2 (06:19→17:24)
[2019-02-19] MEDS: INSULIN ASPART [NOVOLOG] 3 ML PEN SC SCH ×7 (08:00→21:00)
[2019-02-19] MEDS: SEVELAMER CARBONATE 0.8 GM PKT PO SCH ×3 (08:01→17:16)
[2019-02-19] MEDS: SPIRONOLACTONE 25 MG TAB PO SCH (09:21)
[2019-02-19] MEDS: NIFEdipine (XL) 30 MG TAB PO SCH ×2 (09:23→22:02)
[2019-02-19] MEDS: POTASSIUM CHLORIDE (SR) 10 MEQ TAB PO SCH ×2 (09:24→22:03)
[2019-02-19] MEDS: ISOSORBIDE MONONITRATE(SR)60 MG TAB PO SCH (09:24)
[2019-02-19] MEDS ORDERED: BUMETANIDE 6 MG in DEXTROSE 5% 36 ML IV ONE (10:30)
--- NOTE | 2019-02-19 10:47 | PN ---
DATE: 02/19/2019 SUBJECTIVE: The patient has had minimal urinary output overnight. The patient is complaining about abdominal distention, shortness of breath. No other acute events noted. No hemoptysis, hematemesis or hematochezia. OBJECTIVE: VITAL SIGNS: Blood pressure is 159/75, respirations 18, pulse 76, temperature 98.2. HEENT: Head is normocephalic. NECK: Supple. HEART: Regular rate. LUNGS: Show diminished breath sounds at the base. ABDOMEN: Soft, nontender to palpation without rebound or guarding. EXTREMITIES: Negative for clubbing, cyanosis. Positive edema. DERMATOLOGIC: No rashes. MUSCULOSKELETAL: No joint effusion. NEUROLOGIC: No change in exam. MEDICATIONS: Reviewed. LABORATORY DATA: Reviewed. IMAGING STUDIES: Reviewed. ASSESSMENT AND PLAN: 1. Chronic kidney disease, stage IV, with progression of disease. The patient's renal function is n ear baseline. At this point, continue current treatment plan, supportive care, renally dose all medi cations, monitor closely on diuretic therapy. 2. Volume overload. The patient is grossly volume overloaded, lower extremity edema, scrotal edema. The patient did not respond well to IV Bumex. The patient will be placed on a Bumex drip. Continu e metolazone, monitor renal function and electrolytes, I's and O's closely. 3. Anemia. Continue to monitor hemoglobin and hematocrit levels. We will give Epogen as needed. 4. Mineral bone disorder. Monitor calcium and phosphorus levels. 5. Atrial fibrillation, rate controlled. Continue medical management. Followup with Cardiology. 6. Diabetes. Continue current insulin regimen. 7. Sepsis. Continue current antibiotic regimen. 8. Morbid obesity. Continue dietary modification. 9. Gastrointestinal and deep vein thrombosis prophylaxis. 10. Abdominal distention. Follow up CT scan. Dictated By: LUIS DICKINSON DO NR/NTS Conf#: [id number] DID#: [id number] CC: DAMON MO MD; ZENON CABRERA MD;*EndCC*
[2019-02-19] MEDS: morphine 2 MG INJ IV PRN ×2 (13:46→23:33)
--- NOTE | 2019-02-19 13:58 | CONS ---
Assessment/Plan Assessment/Plan Hospital Course (Demo Recall) IMP: 1.CHF-diastolic acute on chronic by echo 12/16/18 revealing EF 60%-neg trop x 3 2.HTN-somewhat labile 3.chronic kidney disease-not yet on HD 4.H/O PAF on anticoagulation in SR at this time 5.anemia Recc: -Tele -Continue bumex drip and follow volume status -Continue procardia/oral nittrates/hydralazine/coreg/cardura -Continue statin/zetia for now -Eliquis held in the setting of anemia -? need for HD Consultation Date/Type/Reason Admit Date/Time Feb 18, 2019 at 00:37 Initial Consult Date 02/18/19 Type of Consult Cardiology Reason for Consultation CHF Requesting Provider: DAMON MO Date/Time of Note DATE: 02/19/19 TIME: 13:50 Exam/Review of Systems Vital Signs Vitals Vital Signs Date Temp Pulse Resp B/P (MAP) Pulse Ox O2 O2 Flow FiO2 Time Delivery Rate 02/19/19 79 12:24 02/19/19 98.4 19 153/73 97 11:20 (99) 02/19/19 Nasal 2.0 07:50 Cannula Intake and Output 02/18/19 02/18/19 02/19/19 1515:00 23:00 07:00 IntakeIntake Total 433 ml 233 ml 500 ml OutputOutput Total 675 ml 250 ml 350 ml BalanceBalance -242 ml -17 ml 150 ml Exam Exam Review of Systems: CONSTITUTIONAL: No fevers, chills. PULMONARY: ongoing sob/orthopnea CARDIOVASCULAR: No chest pain/palpitations GASTROINTESTINAL: No nausea/vomiting. GENITOURINARY: No hematuria/dysuria. MUSCULOSKELETAL: No myagias/arthalgias. PSYCHIATRIC: The patient denies depression. NEUROLOGIC: No weakness Constitutional: alert Psych: no complaints Head: normocephalic ENMT: mucosa pink and moist Neck: supple, jvd (9 cm water) Respiratory: diminished breath sounds (at bases/B) Cardiovascular: regular rate and rhythm Gastrointestinal: soft, non-tender Musculoskeletal: muscle tone (normal) Extremities: pitting pedal edema (bilateral LE) Neurological: other (no focal deficits) Labs Result Diagram: 02/19/19 0546 02/19/19 0546 Results 24hrs Laboratory Tests Test 02/18/19 17:18 02/18/19 20:31 02/19/19 01:47 02/19/19 05:46 Bedside Glucose 93 167 153 White Blood Count 7.1 Red Blood Count 2.89 L Hemoglobin 7.5 L Hematocrit 24.3 L Mean Corpuscular 84.1 Volume Mean Corpuscular 26.0 L Hemoglobin Mean Corpuscular 30.9 L Hemoglobin Concent Red Cell 15.1 H Distribution Width Platelet Count 188 Mean Platelet Volume 10.9 H Immature 0.400 Granulocytes % Neutrophils % 78.2 H Lymphocytes % 9.0 L Monocytes % 6.9 Eosinophils % 5.2 Basophils % 0.3 Nucleated Red Blood 0.0 Cells % Immature 0.030 Granulocytes # Neutrophils # 5.6 Lymphocytes # 0.6 L Monocytes # 0.5 Eosinophils # 0.4 Basophils # 0.0 Nucleated Red Blood 0.0 Cells # Sodium Level 143 Potassium Level 3.9 Chloride Level 106 Carbon Dioxide Level 27 Anion Gap 10 Blood Urea Nitrogen 72 H Creatinine 4.11 H Est Glomerular 16 L Filtrat Rate mL/min Glucose Level 114 # Hemoglobin A1c 7.3 H Calcium Level 8.1 L Magnesium Level 2.4 Total Bilirubin 0.4 Direct Bilirubin 0.00 Indirect Bilirubin 0.4 Aspartate Amino 18 Transf (AST/SGOT) Alanine 34 Aminotransferase (AL T/SGPT) Alkaline Phosphatase 83 Total Protein 6.4 Albumin 3.6 Globulin 2.80 Albumin/Globulin 1.28 Ratio Triglycerides Level 113 Cholesterol Level 65 L LDL Cholesterol, 27 Calculated HDL Cholesterol 15 L Cholesterol/HDL 4.3 Ratio Thyroid Stimulating 4.460 Hormone (TSH) Test 02/19/19 07:59 02/19/19 12:14 Bedside Glucose 115 126 Medications Medications Current Medications IV Flush (NS 3 ml) 3 ml PER PROTOCOL IV ; Start 02/18/19 at 01:30 Ondansetron HCl (Zofran Inj) 4 mg Q6H PRN IV NAUSEA/VOMITING; Start 02/18/19 at 01:30 Nitroglycerin (Nitroglycerin (Sl Tab) 0.4 Mg) 1 tab Q5M PRN SL .CHEST PAIN; Start 02/18/19 at 01:30 Acetaminophen (Tylenol Tab) 650 mg Q6H PRN PO .PAIN 1-3 OR TEMP; Start 02/18/19 at 01:30 Docusate Sodium (Colace) 100 mg Q12H PRN PO .CONSTIPATION; Start 02/18/19 at 01:30 Bisacodyl (Dulcolax) 5 mg DAILY PRN PO .CONSTIPATION Last administered on 13:46; Admin Dose 5 MG; Start 02/18/19 at 01:30 Insulin Aspart (Novolog Insulin Pen) NOVOLOG *MILD* ALGORITHM WITH MEALS BEDTIME SC ; Start 02/18/19 at 08:00 Atorvastatin Calcium (Lipitor) 80 mg QHS PO Last administered on 02/18/19 20:37; Admin Dose 80 MG; Start 02/18/19 at 21:00 Carvedilol (Coreg) 6.25 mg BID PO Last administered on 02/19/19 09:24; Admin Dose 6.25 MG; Start 02/18/19 at 09:00 Doxazosin Mesylate (Cardura) 4 mg HS PO Last administered on 02/18/19 20:36; Admin Dose 4 MG; Start 02/18/19 at 21:00 EZETIMIBE (Zetia) 10 mg HS PO Last administered on 02/18/19 20:35; Admin Dose 10 MG; Start 02/18/19 at 21:00 Hydralazine HCl (Apresoline) 50 mg Q8H PRN PO SBP >170; Start 02/18/19 at 04:30 Hydralazine HCl (Apresoline) 100 mg TID PO Last administered on 02/19/19 13:46; Admin Dose 100 MG; Start 02/18/19 at 09:00 Insulin Glargine (Lantus) 30 units QHS SC Last administered on 02/18/19 20:47; Admin Dose 30 UNITS; Start 02/18/19 at 21:00 Isosorbide Mononitrate (Imdur) 60 mg DAILY PO Last administered on 02/19/19 09:24; Admin Dose 60 MG; Start 02/18/19 at 09:00 Potassium Chloride (Klor-Con 10) 10 meq BID PO Last administered on 02/19/19 09:24; Admin Dose 10 MEQ; Start 02/18/19 at 09:00 Sevelamer Carbonate (Renvela) 0.8 gm WITH MEALS PO Last administered on 12:16; Admin Dose 0.8 GM; Start 02/18/19 at 08:00 Spironolactone (Aldactone) 25 mg DAILY PO Last administered on 02/19/19at 09:21; Admin Dose 25 MG; Start 02/18/19 at 09:00 Diagnostic Test (Pha) (Accu-Chek) 1 ea 02 XX Last administered on 02/19/19at 02:03; Admin Dose 1 EA; Start 02/19/19 at 02:00 Morphine Sulfate (morphine) 2 mg Q4H PRN IV SEVERE PAIN LEVEL 7-10 Last administered on 02/19/19at 13:46; Admin Dose 2 MG; Start 02/18/19 at 05:30 Bumetanide (Bumex) 1 mg BID DIURETICS IV Last administered on 02/19/19at 06:19; Admin Dose 1 MG; Start 02/18/19 at 06:00 Miscellaneous Information 1 ea NOTE XX ; Start 02/18/19 at 06:30 Glucose (Glutose) 15 gm Q15M PRN PO DECREASED GLUCOSE; Start 02/18/19 at 06:30 Glucose (Glutose) 22.5 gm Q15M PRN PO DECREASED GLUCOSE; Start 02/18/19 at 06: 30 Dextrose (D50w Syringe) 25 ml Q15M PRN IV DECREASED GLUCOSE; Start 02/18/19 at 06:30 Dextrose (D50w Syringe) 50 ml Q15M PRN IV DECREASED GLUCOSE; Start 02/18/19 at 06:30 Glucagon (Glucagen) 1 mg Q15M PRN IM DECREASED GLUCOSE; Start 02/18/19 at 06:30 Glucose (Glutose) 15 gm Q15M PRN BUCCAL DECREASED GLUCOSE; Start 02/18/19 at 06:30 Insulin Aspart (Novolog Insulin Pen) 15 unit WITH MEALS SC Last administered on 02/19/19at 13:35; Admin Dose 15 UNIT; Start 02/18/19 at 08:00 Nifedipine (Procardia Xl) 60 mg BID PO Last administered on 02/19/19at 09:23; Admin Dose 60 MG; Start 02/18/19 at 21:00 Vancomycin HCl (Vanco Iv Per Pharmacy) VANCOMYCIN PER PHARMACY PER PROTOCOL XX ; Start 02/18/19 at 23:00 Diphenhydramine HCl (Benadryl) 50 mg Q6H PRN PO ITCHING Last administered on 02/19/19at 01:08; Admin Dose 50 MG; Start 02/19/19 at 00:00 Miscellaneous Information (*Rx Drug Level Order Reminder*) RANDOM LEVEL 02/21 @ 0,500 0500 ONCE XX ; Start 02/21/19 at 05:00; Stop 02/21/19 at 05:01 Bumetanide 6 mg/ Dextrose 60 ml @ 10 mls/hr Q6H ONCE IV Last administered on 02/19/19at 12:16; Admin Dose 10 MLS/HR; Start 02/19/19 at 10:30; Stop 02/19/19 at 16:29 VI ADAMES Feb 19, 2019 13:58
[2019-02-19] MEDS ORDERED: POLYETHYLENE GLYCOL 17 GM PACKET NGT PRN (15:00)
--- NOTE | 2019-02-19 16:04 | PN ---
Date/Time of Note Date/Time of Note DATE: 02/19/19 TIME: 16:00 Assessment/Plan VTE Prophylaxis Risk score (from [facility] [place]0 risk: 1 SCD applied (from [facility] [place] No SCD contraindicated: other Pharmacological prophylaxis: NA/contraindicated Pharm contraindication: renal impairment Lines/Catheters IV [facility] Type [facility]from [facility] Saline Lock Urinary Cath still in place: No Assessment/Plan Assessment/Plan 1. Acute on chronic diastolic heart failure- - Patient not diuresing well and per Cardio/Nephro, bumex drip started - Cardiology consultation appreciated and will continue diuresis - ECHO from November shows EF 60% - monitor I/O and daily weights 2. MARIA DEL CARMEN on CKD - patient requesting to follow up with outpatient carton stapler if possible. does not want to start HD during admission - Nephrology consultation appreciated 3. Anemia of chronic disease - no paloma bleeding noted - Hgb 7.5 and most likely secondary to renal disease 4. Afib - currently rate controlled - given anemia, Cardiology recommending holding anticoagulation 5. Diabetes Mellitus - A1c ordered - continue insulin and ISS 6. Morbid obesity 7. Abdominal distension - will order CT scan to rule out pathological cause. patient admits to normal BMs. Discussed may be secondary to fluid overload - concerned given mother had a large "tumor" removed but unsure type 8. Disposition - CT scan A/P ordered to assess abd distension. Diuretic management per Nephro/Cardiology recommendations Result Diagram: 02/19/19 0546 02/19/19 0546 Results 24hrs Laboratory Tests Test 02/18/19 17:18 02/18/19 20:31 02/19/19 01:47 02/19/19 05:46 Bedside Glucose 93 167 153 White Blood Count 7.1 Red Blood Count 2.89 L Hemoglobin 7.5 L Hematocrit 24.3 L Mean Corpuscular 84.1 Volume Mean Corpuscular 26.0 L Hemoglobin Mean Corpuscular 30.9 L Hemoglobin Concent Red Cell 15.1 H Distribution Width Platelet Count 188 Mean Platelet Volume 10.9 H Immature 0.400 Granulocytes % Neutrophils % 78.2 H Lymphocytes % 9.0 L Monocytes % 6.9 Eosinophils % 5.2 Basophils % 0.3 Nucleated Red Blood 0.0 Cells % Immature 0.030 Granulocytes # Neutrophils # 5.6 Lymphocytes # 0.6 L Monocytes # 0.5 Eosinophils # 0.4 Basophils # 0.0 Nucleated Red Blood 0.0 Cells # Sodium Level 143 Potassium Level 3.9 Chloride Level 106 Carbon Dioxide Level 27 Anion Gap 10 Blood Urea Nitrogen 72 H Creatinine 4.11 H Est Glomerular 16 L Filtrat Rate mL/min Glucose Level 114 # Hemoglobin A1c 7.3 H Calcium Level 8.1 L Magnesium Level 2.4 Total Bilirubin 0.4 Direct Bilirubin 0.00 Indirect Bilirubin 0.4 Aspartate Amino 18 Transf (AST/SGOT) Alanine 34 Aminotransferase (AL T/SGPT) Alkaline Phosphatase 83 Total Protein 6.4 Albumin 3.6 Globulin 2.80 Albumin/Globulin 1.28 Ratio Triglycerides Level 113 Cholesterol Level 65 L LDL Cholesterol, 27 Calculated HDL Cholesterol 15 L Cholesterol/HDL 4.3 Ratio Thyroid Stimulating 4.460 Hormone (TSH) Test 02/19/19 07:59 02/19/19 12:14 Bedside Glucose 115 126 Subjective 24 Hr Interval Summary Free Text/Dictation Patient is concerned about swelling from thighs to his abdomen. Also complaining of scrotal swelling. Abd is firm and distended and patient concerned given mother had a large tumor removed from his abdominal area. Exam/Review of Systems Exam Vitals Vital Signs Date Temp Pulse Resp B/P (MAP) Pulse Ox O2 O2 Flow FiO2 Time Delivery Rate 02/19/19 98.6 75 18 151/70 98 15:32 (97) 02/19/19 Nasal 2.0 07:50 Cannula Intake and Output 02/18/19 02/18/19 02/19/19 1515:00 23:00 07:00 IntakeIntake Total 433 ml 233 ml 500 ml OutputOutput Total 675 ml 250 ml 350 ml BalanceBalance -242 ml -17 ml 150 ml Exam General: no acute distress, obese Neck: Supple Chest: Nontender Lungs: Coarse breath sounds at the bases bilaterally. no wheezing Heart: Normal S1-S2, Regular rhythm and rate. No murmur, S3, or S4 Abdomen: Firm, mildly tender due to swelling, distended, bowel sounds are present. No guarding no rebound tenderness Extremities: swelling of thighs bilaterally. no pedal edema appreciated Results Results 24hrs Laboratory Tests Test 02/18/19 17:18 02/18/19 20:31 02/19/19 01:47 02/19/19 05:46 Bedside Glucose 93 167 153 White Blood Count 7.1 Red Blood Count 2.89 L Hemoglobin 7.5 L Hematocrit 24.3 L Mean Corpuscular 84.1 Volume Mean Corpuscular 26.0 L Hemoglobin Mean Corpuscular 30.9 L Hemoglobin Concent Red Cell 15.1 H Distribution Width Platelet Count 188 Mean Platelet Volume 10.9 H Immature 0.400 Granulocytes % Neutrophils % 78.2 H Lymphocytes % 9.0 L Monocytes % 6.9 Eosinophils % 5.2 Basophils % 0.3 Nucleated Red Blood 0.0 Cells % Immature 0.030 Granulocytes # Neutrophils # 5.6 Lymphocytes # 0.6 L Monocytes # 0.5 Eosinophils # 0.4 Basophils # 0.0 Nucleated Red Blood 0.0 Cells # Sodium Level 143 Potassium Level 3.9 Chloride Level 106 Carbon Dioxide Level 27 Anion Gap 10 Blood Urea Nitrogen 72 H Creatinine 4.11 H Est Glomerular 16 L Filtrat Rate mL/min Glucose Level 114 # Hemoglobin A1c 7.3 H Calcium Level 8.1 L Magnesium Level 2.4 Total Bilirubin 0.4 Direct Bilirubin 0.00 Indirect Bilirubin 0.4 Aspartate Amino 18 Transf (AST/SGOT) Alanine 34 Aminotransferase (AL T/SGPT) Alkaline Phosphatase 83 Total Protein 6.4 Albumin 3.6 Globulin 2.80 Albumin/Globulin 1.28 Ratio Triglycerides Level 113 Cholesterol Level 65 L LDL Cholesterol, 27 Calculated HDL Cholesterol 15 L Cholesterol/HDL 4.3 Ratio Thyroid Stimulating 4.460 Hormone (TSH) Test 02/19/19 07:59 02/19/19 12:14 Bedside Glucose 115 126 Medications Medication Current Medications IV Flush (NS 3 ml) 3 ml PER PROTOCOL IV ; Start 02/18/19 at 01:30 Ondansetron HCl (Zofran Inj) 4 mg Q6H PRN IV NAUSEA/VOMITING; Start 02/18/19 at 01:30 Nitroglycerin (Nitroglycerin (Sl Tab) 0.4 Mg) 1 tab Q5M PRN SL .CHEST PAIN; Start 02/18/19 at 01:30 Acetaminophen (Tylenol Tab) 650 mg Q6H PRN PO .PAIN 1-3 OR TEMP; Start 02/18/19 at 01:30 Docusate Sodium (Colace) 100 mg Q12H PRN PO .CONSTIPATION; Start 02/18/19 at 01:30 Bisacodyl (Dulcolax) 5 mg DAILY PRN PO .CONSTIPATION Last administered on 02/19/19at 13:46; Admin Dose 5 MG; Start 02/18/19 at 01:30 Insulin Aspart (Novolog Insulin Pen) NOVOLOG *MILD* ALGORITHM WITH MEALS BEDTIME SC ; Start 02/18/19 at 08:00 Atorvastatin Calcium (Lipitor) 80 mg QHS PO Last administered on 02/18/19 20:37; Admin Dose 80 MG; Start 02/18/19 at 21:00 Carvedilol (Coreg) 6.25 mg BID PO Last administered on 02/19/19 09:24; Admin Dose 6.25 MG; Start 02/18/19 at 09:00 Doxazosin Mesylate (Cardura) 4 mg HS PO Last administered on 02/18/19 20:36; Admin Dose 4 MG; Start 02/18/19 at 21:00 EZETIMIBE (Zetia) 10 mg HS PO Last administered on 02/18/19 20:35; Admin Dose 10 MG; Start 02/18/19 at 21:00 Hydralazine HCl (Apresoline) 50 mg Q8H PRN PO SBP >170; Start 02/18/19 at 04:30 Hydralazine HCl (Apresoline) 100 mg TID PO Last administered on 02/19/19 13:46; Admin Dose 100 MG; Start 02/18/19 at 09:00 Insulin Glargine (Lantus) 30 units QHS SC Last administered on 02/18/19 20:47; Admin Dose 30 UNITS; Start 02/18/19 at 21:00 Isosorbide Mononitrate (Imdur) 60 mg DAILY PO Last administered on 02/19/19 09:24; Admin Dose 60 MG; Start 02/18/19 at 09:00 Potassium Chloride (Klor-Con 10) 10 meq BID PO Last administered on 02/19/19 09:24; Admin Dose 10 MEQ; Start 02/18/19 at 09:00 Sevelamer Carbonate (Renvela) 0.8 gm WITH MEALS PO Last administered on 02/19/19 12:16; Admin Dose 0.8 GM; Start 02/18/19 at 08:00 Spironolactone (Aldactone) 25 mg DAILY PO Last administered on 02/19/19 09:21; Admin Dose 25 MG; Start 02/18/19 at 09:00 Diagnostic Test (Pha) (Accu-Chek) 1 ea 02 XX Last administered on 02/19/19at 02:03; Admin Dose 1 EA; Start 02/19/19 at 02:00 Morphine Sulfate (morphine) 2 mg Q4H PRN IV SEVERE PAIN LEVEL 7-10 Last admin istered on 02/19/19at 13:46; Admin Dose 2 MG; Start 02/18/19 at 05:30 Bumetanide (Bumex) 1 mg BID DIURETICS IV Last administered on 02/19/19at 06:19; Admin Dose 1 MG; Start 02/18/19 at 06:00 Miscellaneous Information 1 ea NOTE XX ; Start 02/18/19 at 06:30 Glucose (Glutose) 15 gm Q15M PRN PO DECREASED GLUCOSE; Start 02/18/19 at 06:30 Glucose (Glutose) 22.5 gm Q15M PRN PO DECREASED GLUCOSE; Start 02/18/19 at 06:30 Dextrose (D50w Syringe) 25 ml Q15M PRN IV DECREASED GLUCOSE; Start 02/18/19 at 06:30 Dextrose (D50w Syringe) 50 ml Q15M PRN IV DECREASED GLUCOSE; Start 02/18/19 at 06:30 Glucagon (Glucagen) 1 mg Q15M PRN IM DECREASED GLUCOSE; Start 02/18/19 at 06:30 Glucose (Glutose) 15 gm Q15M PRN BUCCAL DECREASED GLUCOSE; Start 02/18/19 at 06:30 Insulin Aspart (Novolog Insulin Pen) 15 unit WITH MEALS SC Last administered on 02/19/19at 13:35; Admin Dose 15 UNIT; Start 02/18/19 at 08:00 Nifedipine (Procardia Xl) 60 mg BID PO Last administered on 02/19/19at 09:23; Admin Dose 60 MG; Start 02/18/19 at 21:00 Vancomycin HCl (Vanco Iv Per Pharmacy) VANCOMYCIN PER PHARMACY PER PROTOCOL XX ; Start 02/18/19 at 23:00 Diphenhydramine HCl (Benadryl) 50 mg Q6H PRN PO ITCHING Last administered on 02/19/19at 01:08; Admin Dose 50 MG; Start 02/19/19 at 00:00 Miscellaneous Information (*Rx Drug Level Order Reminder*) RANDOM LEVEL 02/21 @ 0,500 0500 ONCE XX ; Start 02/21/19 at 05:00; Stop 02/21/19 at 05:01 Bumetanide 6 mg/ Dextrose 60 ml @ 10 mls/hr Q6H ONCE IV Last administered on 02/19/19at 12:16; Admin Dose 10 MLS/HR; Start 02/19/19 at 10:30; Stop 02/19/19 at 16:29 Polyethylene Glycol (Miralax) 17 gm DAILY PRN NGT CONSTIPATION; Start 02/19/19 at 15:00 ZENON CABRERA MD Feb 19, 2019 16:04
--- NOTE | 2019-02-19 17:30 | CONS ---
DATE OF ADMISSION: 02/18/2019 DATE OF CONSULTATION: 02/18/2019 INFECTIOUS DISEASE CONSULTATION REASON FOR CONSULTATION: Antibiotic management. HISTORY OF PRESENT ILLNESS: The patient is a 43-year-old male who comes in complaining of s hortness of breath and lower extremity swelling. His past problems include: 1. Diastolic congestive heart failure. 2. Atrial fibrillation. 3. Stage IV chronic renal disease. 4. Diabetes mellitus. The patient presents with generalized shortness of breath and lower extremity swelling. He is taking medication at home but continues to have lower extremity swelling. His urination has been decreasin g as well. He saw a head of sales promotion who said that he might need dialysis by March. PAST MEDICAL HISTORY: As outlined. FAMILY HISTORY: Noncontributory. SOCIAL HISTORY: He does use cocaine. He does not drink or smoke. ALLERGIES: NONE TO PENICILLIN OR SULFA, BUT HE IS ALLERGIC TO SEAFOOD. He gets severe red rashes on his body. MEDICATIONS: Per chart. REVIEW OF SYSTEMS: Noncontributory. PHYSICAL EXAMINATION: GENERAL: The patient is a pleasant male, in no acute distress. VITAL SIGNS: Stable. He is afebrile. SKIN: Without generalized rash. HEENT: Within normal limits. NECK: Supple. LYMPH NODES: None palpable. CHEST: Decreased breath sounds at the bases. HEART: Without murmur or gallop. ABDOMEN: Soft and nontender without organosplenomegaly or masses. EXTREMITIES: With 2+ pitting edema. RECTAL AND GENITAL: Deferred. NEUROLOGIC: No focal neurological abnormalities. ANCILLARY LABORATORY DATA: Chest x-ray shows mild right basilar atelectasis or infiltrate. Blood cu ltures 1 out of 2 show gram-positive cocci in pairs and chains. IMPRESSION AND PLAN: The patient was seen by Dr. Jack Ponce for CHF exacerbation. The patient is o n numerous medications including Cardura, Coreg, Eliquis, and nifedipine. His white count is 2.8, he moglobin 7.8, platelet count 192,000. Creatinine is 3.91 on the 25th. The patient was seen by Dr. Autumn grider. The patient had minimal urinary output, complains of abdominal distention and shortness of b reath, chronic kidney disease stage IV. Right now, he is getting some point of care. He is on Bumex . He has morbid obesity, abdominal distention. We are going to repeat blood cultures, which were or dered on the , today. Continue vancomycin and will observe on current therapy. I will dictate m y findings to the hospitalist, Dr. Piña and Dr. Ponce. Dictated By: DANUTA AYOUB MD, JD/SUNDEEP Conf#: [id number] DID#: [id number] CC: DAMON MO MD;*End*
[2019-02-19] MEDS: INSULIN GLARGINE [LANTus] (100 UNITS/ML) SYG SC SCH (21:00)
[2019-02-19] MEDS: DOXAZOSIN 4 MG TAB PO SCH (22:02)
[2019-02-19] MEDS: ATORVASTATIN 80 MG TAB PO SCH (22:03)
[2019-02-19] MEDS: EZETIMIBE 10 MG TAB PO SCH (22:04)
[2019-02-19] MEDS ORDERED: INSULIN GLARGINE [LANTus] (100 UNITS/ML) SYG SC ONE (22:30)
[2019-02-20] VITALS: BP 157/73; PULSE 87; RESP 19
[2019-02-20] MEDS: DIPHENHYDRAMINE 50 MG CAP PO PRN (02:00)
[2019-02-20] MEDS: ACCU-CHEK XX SCH (02:14)
[2019-02-20 04:00] VITALS: BP 147/74; PULSE 71; RESP 19
[2019-02-20] MEDS: BUMETANIDE 1 MG INJ IV SCH ×2 (05:34→17:13)
[2019-02-20 07:38] VITALS: BP 144/68; PULSE 79; RESP 19
[2019-02-20] MEDS: SEVELAMER CARBONATE 0.8 GM PKT PO SCH ×3 (07:49→17:13)
[2019-02-20] MEDS: INSULIN ASPART [NOVOLOG] 3 ML PEN SC SCH ×7 (07:50→21:38)
[2019-02-20] MEDS ORDERED: POTASSIUM CHLORIDE (SR) 20 MEQ TAB PO STA (08:39)
[2019-02-20] MEDS ORDERED: METOLAZONE 5 MG TAB PO ONE (09:00)
[2019-02-20] MEDS: ISOSORBIDE MONONITRATE(SR)60 MG TAB PO SCH (09:01)
[2019-02-20] MEDS: POTASSIUM CHLORIDE (SR) 10 MEQ TAB PO SCH ×2 (09:02→21:24)
[2019-02-20] MEDS: NIFEdipine (XL) 30 MG TAB PO SCH ×2 (09:02→21:24)
[2019-02-20] MEDS: SPIRONOLACTONE 25 MG TAB PO SCH (09:03)
--- NOTE | 2019-02-20 09:05 | PN ---
DATE: 02/20/2019 SUBJECTIVE: The patient's urinary output has improved after being placed on Bumex drip. The patient continues to complain of shortness of breath. No other events noted. OBJECTIVE: VITAL SIGNS: Blood pressure is 144/68, respiration 19, pulse 79, temperature 98.1. HEENT: Head is normocephalic. NECK: Supple. HEART: Regular rate. LUNGS: Show diminished breath sounds at the base. ABDOMEN: Soft, nontender to palpation without rebound or guarding. EXTREMITIES: Negative for clubbing, cyanosis. Positive edema. DERMATOLOGIC: No rashes. MUSCULOSKELETAL: No joint effusions. NEUROLOGIC: No change in exam. MEDICATIONS: Have been reviewed. LABORATORY DATA: Has been reviewed. IMAGING STUDIES: Have been reviewed. ASSESSMENT AND PLAN: 1. Chronic kidney disease stage IV. Patient's renal function is at baseline. We will continue curr ent treatment plan, supportive care, renally dose all meds. Monitor renal function closely on diuret ic therapy. The patient does not wish to be initiating dialysis at this time. 2. Volume overload. Will continue Bumex drip. Will continue metolazone, monitor renal function, el ectrolytes closely. 3. Anemia. Continue to monitor hemoglobin and hematocrit levels. Continue Epogen. 4. Mineral bone disorder. Monitor calcium and phosphorus levels. 5. Atrial fibrillation, currently rate controlled. Continue medical management. 6. Diabetes. Continue current insulin regimen. 7. Sepsis. Continue current antibiotic regimen. 8. Morbid obesity. Continue dietary modification. 9. Gastrointestinal and deep venous thrombosis prophylaxis. 10. Abdominal distention. The patient's CT scan was reviewed, shows evidence of lymph nodes and ing uinal lymphadenopathy. Dictated By: LUIS JOSHI/SUNDEEP Conf#: [id number] DID#: [id number] CC: DAMON MO MD;*EndCC*
[2019-02-20] MEDS: morphine 2 MG INJ IV PRN ×2 (09:17→21:43)
[2019-02-20] MEDS ORDERED: BUMETANIDE 6 MG in DEXTROSE 5% 36 ML IV ONE (10:00)
[2019-02-20 11:14] VITALS: BP 143/72; PULSE 63; RESP 18
[2019-02-20] MEDS ORDERED: MAGNESIUM HYDROXIDE 30ML CUP PO PRN (11:30)
[2019-02-20] MEDS ORDERED: EPOETIN ALFA-EPBX (NON-ESRD 10,000 UNIT/ML VIAL SC ONE (12:30)
--- NOTE | 2019-02-20 13:20 | CONS ---
Assessment/Plan Assessment/Plan Hospital Course (Demo Recall) IMP: 1.CHF-diastolic acute on chronic by echo 12/16/18 revealing EF 60%-neg trop x 3 2.HTN-somewhat labile 3.chronic kidney disease-not yet on HD 4.H/O PAF on anticoagulation in SR at this time 5.anemia Recc: -Tele -Continue bumex drip and also given metolazone dose, follow volume status close ly -Also follow K closely on aldactone -Continue procardia/oral nittrates/hydralazine/coreg/cardura -Continue statin/zetia for now -Eliquis held in the setting of anemia -? need for HD Consultation Date/Type/Reason Admit Date/Time Feb 18, 2019 at 00:37 Initial Consult Date 02/18/19 Type of Consult Cardiology Reason for Consultation CHF Requesting Provider: DAMON MO Date/Time of Note DATE: 02/20/19 TIME: 13:18 Exam/Review of Systems Vital Signs Vitals Vital Signs Date Temp Pulse Resp B/P (MAP) Pulse Ox O2 O2 Flow FiO2 Time Delivery Rate 02/20/19 98.0 63 18 143/72 96 11:14 (95) 02/20/19 Nasal 2.0 07:50 Cannula Intake and Output 02/19/19 02/19/19 02/20/19 1515:00 23:00 07:00 IntakeIntake Total 900 ml 660 ml 600 ml OutputOutput Total 1150 ml 650 ml 1500 ml BalanceBalance -250 ml 10 ml -900 ml Exam Exam Review of Systems: CONSTITUTIONAL: No fevers, chills. PULMONARY: ongoing sob CARDIOVASCULAR: No chest pain/palpitations GASTROINTESTINAL: No nausea/vomiting. GENITOURINARY: No hematuria/dysuria. MUSCULOSKELETAL: No myagias/arthalgias. PSYCHIATRIC: The patient denies depression. NEUROLOGIC: No weakness Constitutional: alert Psych: no complaints Head: normocephalic ENMT: mucosa pink and moist Neck: supple, jvd (9 cm water) Respiratory: diminished breath sounds (at bases/B) Cardiovascular: regular rate and rhythm Gastrointestinal: soft, non-tender Musculoskeletal: muscle tone (normal) Extremities: pitting pedal edema (bilateral LE's) Neurological: other (No focal deficits) Labs Result Diagram: 02/20/19 0534 02/20/19 0534 Results 24hrs Laboratory Tests Test 02/19/19 17:14 02/19/19 21:35 02/19/19 21:38 02/19/19 22:38 Bedside Glucose 146 67 L 66 L 109 Test 02/20/19 01:56 02/20/19 05:34 02/20/19 07:48 02/20/19 12:04 Bedside Glucose 181 134 71 White Blood Count 6.0 Red Blood Count 2.65 L Hemoglobin 7.0 L Hematocrit 22.3 L Mean Corpuscular 84.2 Volume Mean Corpuscular 26.4 L Hemoglobin Mean Corpuscular 31.4 L Hemoglobin Concent Red Cell 15.0 H Distribution Width Platelet Count 174 Mean Platelet Volume 11.5 H Immature 0.300 Granulocytes % Neutrophils % 70.1 Lymphocytes % 9.2 L Monocytes % 11.9 H Eosinophils % 8.2 H Basophils % 0.3 Nucleated Red Blood 0.0 Cells % Immature 0.020 Granulocytes # Neutrophils # 4.2 Lymphocytes # 0.6 L Monocytes # 0.7 Eosinophils # 0.5 Basophils # 0.0 Nucleated Red Blood 0.0 Cells # Sodium Level 142 Potassium Level 3.6 Chloride Level 104 Carbon Dioxide Level 27 Anion Gap 11 Blood Urea Nitrogen 75 H Creatinine 4.19 H Est Glomerular 16 L Filtrat Rate mL/min Glucose Level 137 Calcium Level 8.0 L Phosphorus Level 4.7 Magnesium Level 2.4 Total Bilirubin 0.4 Direct Bilirubin 0.00 Indirect Bilirubin 0.4 Aspartate Amino 15 Transf (AST/SGOT) Alanine 27 Aminotransferase (AL T/SGPT) Alkaline Phosphatase 91 Total Protein 6.3 Albumin 3.5 Globulin 2.80 Albumin/Globulin 1.25 Ratio Medications Medications Current Medications IV Flush (NS 3 ml) 3 ml PER PROTOCOL IV ; Start 02/18/19 at 01:30 Ondansetron HCl (Zofran Inj) 4 mg Q6H PRN IV NAUSEA/VOMITING; Start 02/18/19 at 01:30 Nitroglycerin (Nitroglycerin (Sl Tab) 0.4 Mg) 1 tab Q5M PRN SL .CHEST PAIN; Start 02/18/19 at 01:30 Acetaminophen (Tylenol Tab) 650 mg Q6H PRN PO .PAIN 1-3 OR TEMP; Start 02/18/19 at 01:30 Docusate Sodium (Colace) 100 mg Q12H PRN PO .CONSTIPATION; Start 02/18/19 at 01:30 Bisacodyl (Dulcolax) 5 mg DAILY PRN PO .CONSTIPATION Last administered on 02/19/19 13:46; Admin Dose 5 MG; Start 02/18/19 at 01:30 Insulin Aspart (Novolog Insulin Pen) NOVOLOG *MILD* ALGORITHM WITH MEALS BEDT JACK SC Last administered on 02/19/19 17:22; Admin Dose 1 UNIT; Start 02/18/19 at 08:00 Atorvastatin Calcium (Lipitor) 80 mg QHS PO Last administered on 02/19/19 22:03; Admin Dose 80 MG; Start 02/18/19 at 21:00 Carvedilol (Coreg) 6.25 mg BID PO Last administered on 02/20/19 09:03; Admin Dose 6.25 MG; Start 02/18/19 at 09:00 Doxazosin Mesylate (Cardura) 4 mg HS PO Last administered on 02/19/19 22:02; Admin Dose 4 MG; Start 02/18/19 at 21:00 EZETIMIBE (Zetia) 10 mg HS PO Last administered on 02/19/19 22:04; Admin Dose 10 MG; Start 02/18/19 at 21:00 Hydralazine HCl (Apresoline) 50 mg Q8H PRN PO SBP >170; Start 02/18/19 at 04:30 Hydralazine HCl (Apresoline) 100 mg TID PO Last administered on 02/20/19 09:01; Admin Dose 100 MG; Start 02/18/19 at 09:00 Isosorbide Mononitrate (Imdur) 60 mg DAILY PO Last administered on 02/20/19 09:01; Admin Dose 60 MG; Start 02/18/19 at 09:00 Potassium Chloride (Klor-Con 10) 10 meq BID PO Last administered on 02/20/19 09:02; Admin Dose 10 MEQ; Start 02/18/19 at 09:00 Sevelamer Carbonate (Renvela) 0.8 gm WITH MEALS PO Last administered on 12:06; Admin Dose 0.8 GM; Start 02/18/19 at 08:00 Spironolactone (Aldactone) 25 mg DAILY PO Last administered on 6/27/19at 09:03; Admin Dose 25 MG; Start 02/18/19 at 09:00 Morphine Sulfate (morphine) 2 mg Q4H PRN IV SEVERE PAIN LEVEL 7-10 Last administered on 02/20/19at 09:17; Admin Dose 2 MG; Start 02/18/19 at 05:30 Bumetanide (Bumex) 1 mg BID DIURETICS IV Last administered on 02/20/19at 05:34; Admin Dose 1 MG; Start 02/18/19 at 06:00 Miscellaneous Information 1 ea NOTE XX ; Start 02/18/19 at 06:30 Glucose (Glutose) 15 gm Q15M PRN PO DECREASED GLUCOSE; Start 02/18/19 at 06:30 Glucose (Glutose) 22.5 gm Q15M PRN PO DECREASED GLUCOSE; Start 02/18/19 at 06:30 Dextrose (D50w Syringe) 25 ml Q15M PRN IV DECREASED GLUCOSE; Start 02/18/19 at 06:30 Dextrose (D50w Syringe) 50 ml Q15M PRN IV DECREASED GLUCOSE; Start 02/18/19 at 06:30 Glucagon (Glucagen) 1 mg Q15M PRN IM DECREASED GLUCOSE; Start 02/18/19 at 06:30 Glucose (Glutose) 15 gm Q15M PRN BUCCAL DECREASED GLUCOSE; Start 02/18/19 at 06:30 Nifedipine (Procardia Xl) 60 mg BID PO Last administered on 02/20/19at 09:02; Admin Dose 60 MG; Start 02/18/19 at 21:00 Vancomycin HCl (Vanco Iv Per Pharmacy) VANCOMYCIN PER PHARMACY PER PROTOCOL XX ; Start 02/18/19 at 23:00 Diphenhydramine HCl (Benadryl) 50 mg Q6H PRN PO ITCHING Last administered on 02/20/19at 02:00; Admin Dose 50 MG; Start 02/19/19 at 00:00 Miscellaneous Information (*Rx Drug Level Order Reminder*) RANDOM LEVEL 02/21 @ 0,500 0500 ONCE XX ; Start 02/21/19 at 05:00; Stop 02/21/19 at 05:01 Bumetanide 6 mg/ Dextrose 60 ml @ 10 mls/hr Q6H ONCE IV Last administered on 02/20/19at 11:07; Admin Dose 10 MLS/HR; Start 02/20/19 at 10:00; Stop 02/20/19 at 15:59 Insulin Aspart (Novolog Insulin Pen) 10 unit WITH MEALS SC ; Start 02/20/19 at 12:00 Insulin Glargine (Lantus) 20 units QHS SC ; Start 02/20/19 at 21:00 Magnesium Hydroxide (Milk Of Mag) 30 ml BID PRN PO CONSTIPATION; Start 02/20/19 at 11:30 Epoetin Randolph-epbx (Retacrit (Esrd)) 40,000 unit ONCE SC ; Start 02/21/19 at 08:00; Status UNVI CAR Feb 20, 2019 13:20
--- NOTE | 2019-02-20 14:07 | CONS ---
Assessment/Plan Assessment/Plan Hospital Course (Demo Recall) Patient is alert looks comfortable no fevers overnight WBC 6 H&H 722.3 platelets 174 neutrophils 70.1 BUN 75 creatinine 4.19 Microbiology: Blood culture on admission grew alphahemolytic strep species CT of the abdomen and pelvis revealed generalized edema with right greater than left pleural effusions, small pericardial effusion and body wall edema. Negative ascites. Please see full report in the chart Antimicrobials: Patient remains on IV vancomycin Physical examination: This is well-developed obese middle-aged man who is alert in no distress. Head atraumatic normocephalic sclera nonicteric vehicle mucosa dry neck is supple chest rise symmetrical breath sounds diminished bases heart S1-S2 abdomen soft bowel sounds present extremities without cyanosis Assessment: 1. Alphahemolytic strep bacteremia 2. Pneumonia with bilateral effusions 3. Acute on chronic kidney disease 4. Obesity Plan: Change antibiotics to IV Rocephin, consider repeat 2D echo, plan for thoracentesis, follow cardiology and nephrology recommendations Discussed with patient Consultation Date/Type/Reason Admit Date/Time Feb 18, 2019 at 00:37 Initial Consult Date Type of Consult id Requesting Provider: DAMON MO Date/Time of Note DATE: 02/20/19 TIME: 14:06 Exam/Review of Systems Exam Vitals Vital Signs Date Temp Pulse Resp B/P (MAP) Pulse Ox O2 O2 Flow FiO2 Time Delivery Rate 02/20/19 98.0 63 18 143/72 96 11:14 (95) 02/20/19 Nasal 2.0 07:50 Cannula Intake and Output 02/19/19 02/19/19 02/20/19 1515:00 23:00 07:00 IntakeIntake Total 900 ml 660 ml 600 ml OutputOutput Total 1150 ml 650 ml 1500 ml BalanceBalance -250 ml 10 ml -900 ml Results Result Diagram: 02/20/19 0534 02/20/19 0534 Results 24hrs Laboratory Tests Test 02/19/19 17:14 02/19/19 21:35 02/19/19 21:38 02/19/19 22:38 Bedside Glucose 146 67 L 66 L 109 Test 02/20/19 01:56 02/20/19 05:34 02/20/19 07:48 02/20/19 12:04 Bedside Glucose 181 134 71 White Blood Count 6.0 Red Blood Count 2.65 L Hemoglobin 7.0 L Hematocrit 22.3 L Mean Corpuscular 84.2 Volume Mean Corpuscular 26.4 L Hemoglobin Mean Corpuscular 31.4 L Hemoglobin Concent Red Cell 15.0 H Distribution Width Platelet Count 174 Mean Platelet Volume 11.5 H Immature 0.300 Granulocytes % Neutrophils % 70.1 Lymphocytes % 9.2 L Monocytes % 11.9 H Eosinophils % 8.2 H Basophils % 0.3 Nucleated Red Blood 0.0 Cells % Immature 0.020 Granulocytes # Neutrophils # 4.2 Lymphocytes # 0.6 L Monocytes # 0.7 Eosinophils # 0.5 Basophils # 0.0 Nucleated Red Blood 0.0 Cells # Sodium Level 142 Potassium Level 3.6 Chloride Level 104 Carbon Dioxide Level 27 Anion Gap 11 Blood Urea Nitrogen 75 H Creatinine 4.19 H Est Glomerular 16 L Filtrat Rate mL/min Glucose Level 137 Calcium Level 8.0 L Phosphorus Level 4.7 Magnesium Level 2.4 Total Bilirubin 0.4 Direct Bilirubin 0.00 Indirect Bilirubin 0.4 Aspartate Amino 15 Transf (AST/SGOT) Alanine 27 Aminotransferase (AL T/SGPT) Alkaline Phosphatase 91 Total Protein 6.3 Albumin 3.5 Globulin 2.80 Albumin/Globulin 1.25 Ratio Test 02/20/19 13:08 Prothrombin Time 13.7 Prothrombin Time 1.1 Ratio INR International 1.04 Normalized Ratio Activated 65.5 H Partial Thromboplast Time Medications Medication Current Medications IV Flush (NS 3 ml) 3 ml PER PROTOCOL IV ; Start 02/18/19 at 01:30 Ondansetron HCl (Zofran Inj) 4 mg Q6H PRN IV NAUSEA/VOMITING; Start 02/18/19 at 01:30 Nitroglycerin (Nitroglycerin (Sl Tab) 0.4 Mg) 1 tab Q5M PRN SL .CHEST PAIN; Start 02/18/19 at 01:30 Acetaminophen (Tylenol Tab) 650 mg Q6H PRN PO .PAIN 1-3 OR TEMP; Start 02/18/19 at 01:30 Docusate Sodium (Colace) 100 mg Q12H PRN PO .CONSTIPATION; Start 02/18/19 at 01:30 Bisacodyl (Dulcolax) 5 mg DAILY PRN PO .CONSTIPATION Last administered on 02/19/19at 13:46; Admin Dose 5 MG; Start 02/18/19 at 01:30 Insulin Aspart (Novolog Insulin Pen) NOVOLOG *MILD* ALGORITHM WITH MEALS BEDTIME SC Last administered on 02/19/19 17:22; Admin Dose 1 UNIT; Start 02/18/19 at 08:00 Atorvastatin Calcium (Lipitor) 80 mg QHS PO Last administered on 02/19/19 22:03; Admin Dose 80 MG; Start 02/18/19 at 21:00 Carvedilol (Coreg) 6.25 mg BID PO Last administered on 02/20/19 09:03; Admin Dose 6.25 MG; Start 02/18/19 at 09:00 Doxazosin Mesylate (Cardura) 4 mg HS PO Last administered on 02/19/19 22:02; Admin Dose 4 MG; Start 02/18/19 at 21:00 EZETIMIBE (Zetia) 10 mg HS PO Last administered on 02/19/19 22:04; Admin Dose 10 MG; Start 02/18/19 at 21:00 Hydralazine HCl (Apresoline) 50 mg Q8H PRN PO SBP >170; Start 02/18/19 at 04:30 Hydralazine HCl (Apresoline) 100 mg TID PO Last administered on 02/20/19 13:27; Admin Dose 100 MG; Start 02/18/19 at 09:00 Isosorbide Mononitrate (Imdur) 60 mg DAILY PO Last administered on 02/20/19 09:01; Admin Dose 60 MG; Start 02/18/19 at 09:00 Potassium Chloride (Klor-Con 10) 10 meq BID PO Last administered on 02/20/19 09:02; Admin Dose 10 MEQ; Start 02/18/19 at 09:00 Sevelamer Carbonate (Renvela) 0.8 gm WITH MEALS PO Last administered on 02/20/19 12:06; Admin Dose 0.8 GM; Start 02/18/19 at 08:00 Spironolactone (Aldactone) 25 mg DAILY PO Last administered on 02/20/19 09:03; Admin Dose 25 MG; Start 02/18/19 at 09:00 Morphine Sulfate (morphine) 2 mg Q4H PRN IV SEVERE PAIN LEVEL 7-10 Last adm inistered on 02/20/19 09:17; Admin Dose 2 MG; Start 02/18/19 at 05:30 Bumetanide (Bumex) 1 mg BID DIURETICS IV Last administered on 02/20/19at 05:34; Admin Dose 1 MG; Start 02/18/19 at 06:00 Miscellaneous Information 1 ea NOTE XX ; Start 02/18/19 at 06:30 Glucose (Glutose) 15 gm Q15M PRN PO DECREASED GLUCOSE; Start 02/18/19 at 06:30 Glucose (Glutose) 22.5 gm Q15M PRN PO DECREASED GLUCOSE; Start 02/18/19 at 06:30 Dextrose (D50w Syringe) 25 ml Q15M PRN IV DECREASED GLUCOSE; Start 02/18/19 at 06:30 Dextrose (D50w Syringe) 50 ml Q15M PRN IV DECREASED GLUCOSE; Start 02/18/19 at 06:30 Glucagon (Glucagen) 1 mg Q15M PRN IM DECREASED GLUCOSE; Start 02/18/19 at 06:30 Glucose (Glutose) 15 gm Q15M PRN BUCCAL DECREASED GLUCOSE; Start 02/18/19 at 06:30 Nifedipine (Procardia Xl) 60 mg BID PO Last administered on 02/20/19at 09:02; Admin Dose 60 MG; Start 02/18/19 at 21:00 Vancomycin HCl (Vanco Iv Per Pharmacy) VANCOMYCIN PER PHARMACY PER PROTOCOL XX ; Start 02/18/19 at 23:00 Diphenhydramine HCl (Benadryl) 50 mg Q6H PRN PO ITCHING Last administered on 02/20/19at 02:00; Admin Dose 50 MG; Start 02/19/19 at 00:00 Miscellaneous Information (*Rx Drug Level Order Reminder*) RANDOM LEVEL 02/21 @ 0,500 0500 ONCE XX ; Start 02/21/19 at 05:00; Stop 02/21/19 at 05:01 Bumetanide 6 mg/ Dextrose 60 ml @ 10 mls/hr Q6H ONCE IV Last administered on 02/20/19at 11:07; Admin Dose 10 MLS/HR; Start 02/20/19 at 10:00; Stop 02/20/19 at 15:59 Insulin Aspart (Novolog Insulin Pen) 10 unit WITH MEALS SC ; Start 02/20/19 at 12:00 Insulin Glargine (Lantus) 20 units QHS SC ; Start 02/20/19 at 21:00 Magnesium Hydroxide (Milk Of Mag) 30 ml BID PRN PO CONSTIPATION; Start 02/20/19 at 11:30 Epoetin Randolph-epbx (Retacrit (Esrd)) 40,000 unit Fr@1700 SC ; Start 02/21/19 at 17:00 YOLETTE RODRIGUEZ NP Feb 20, 2019 14:07
[2019-02-20 15:22] VITALS: BP 132/74; PULSE 71; RESP 18
--- NOTE | 2019-02-20 16:34 | PN ---
Date/Time of Note Date/Time of Note DATE: 02/20/19 TIME: 16:27 Assessment/Plan VTE Prophylaxis Risk score (from Ns)>0 risk: 2 [place] [facility] [place] contraindicated: other Pharmacological prophylaxis: heparin Lines/Catheters IV Catheter Type (from [facility]): Saline Lock Urinary Cath still in place: No Assessment/Plan Assessment/Plan 1. Acute on chronic diastolic heart failure - Will continue diuresing on bumex. Appreciate Cardiology and Nephrology input - Discussed with patient he will need dialysis to help remove excess fluid - ECHO from November shows EF 60% - monitor I/O and daily weights 2. R pleural effusion - will order thoracentesis. ID requesting fluid be sent for analysis 3. Anemia of chronic disease - patient is followed by Dr. Crawford as outpatient. States he get Epogen 40K every Sunday at her office. Last dose was 02/14 4. MARIA DEL CARMEN on CKD - per patient, he is supposed to start peritoneal dialysis in March - Nephrology consultation appreciated 5. Afib - currently rate controlled - will hold anticoagulation in setting of anemia 6. Diabetes Mellitus - A1c noted - adjustments made to insulin and ISS given hypoglycemia episodes 7. Morbid obesity 8. Abdominal distension - CT scan showed diffuse edema and discussed with patient will improve after dialysis initiated - no ascites appreciated 9. Disposition - Thoracentesis ordered given SOB and R effusion seen on CT scan - Procrit to be given tomorrow Result Diagram: 02/20/19 0534 02/20/19 0534 Results 24hrs Laboratory Tests Test 02/19/19 17:14 02/19/19 21:35 02/19/19 21:38 02/19/19 22:38 Bedside Glucose 146 67 L 66 L 109 Test 02/20/19 01:56 02/20/19 05:34 02/20/19 07:48 02/20/19 12:04 Bedside Glucose 181 134 71 White Blood Count 6.0 Red Blood Count 2.65 L Hemoglobin 7.0 L Hematocrit 22.3 L Mean Corpuscular 84.2 Volume Mean Corpuscular 26.4 L Hemoglobin Mean Corpuscular 31.4 L Hemoglobin Concent Red Cell 15.0 H Distribution Width Platelet Count 174 Mean Platelet Volume 11.5 H Immature 0.300 Granulocytes % Neutrophils % 70.1 Lymphocytes % 9.2 L Monocytes % 11.9 H Eosinophils % 8.2 H Basophils % 0.3 Nucleated Red Blood 0.0 Cells % Immature 0.020 Granulocytes # Neutrophils # 4.2 Lymphocytes # 0.6 L Monocytes # 0.7 Eosinophils # 0.5 Basophils # 0.0 Nucleated Red Blood 0.0 Cells # Sodium Level 142 Potassium Level 3.6 Chloride Level 104 Carbon Dioxide Level 27 Anion Gap 11 Blood Urea Nitrogen 75 H Creatinine 4.19 H Est Glomerular 16 L Filtrat Rate mL/min Glucose Level 137 Calcium Level 8.0 L Phosphorus Level 4.7 Magnesium Level 2.4 Total Bilirubin 0.4 Direct Bilirubin 0.00 Indirect Bilirubin 0.4 Aspartate Amino 15 Transf (AST/SGOT) Alanine 27 Aminotransferase (AL T/SGPT) Alkaline Phosphatase 91 Total Protein 6.3 Albumin 3.5 Globulin 2.80 Albumin/Globulin 1.25 Ratio Test 02/20/19 13:08 Prothrombin Time 13.7 Prothrombin Time 1.1 Ratio INR International 1.04 Normalized Ratio Activated 65.5 H Partial Thromboplast Time Subjective 24 Hr Interval Summary Free Text/Dictation Patient still with shortness of breath and complaining of feeling cold which he attributes to his anemia. States he gets a "shot" from Dr. Crawford to help with his anemia. Still complaining of feeling heavy in thighs bilaterally with abdominal swelling. Exam/Review of Systems Exam Vitals Vital Signs Date Temp Pulse Resp B/P (MAP) Pulse Ox O2 O2 Flow FiO2 Time Delivery Rate 02/20/19 98.0 71 18 132/74 96 15:22 (93) 02/20/19 Nasal 2.0 07:50 Cannula Intake and Output 02/19/19 02/19/19 02/20/19 1515:00 23:00 07:00 IntakeIntake Total 900 ml 660 ml 600 ml OutputOutput Total 1150 ml 650 ml 1500 ml BalanceBalance -250 ml 10 ml -900 ml Exam General: no acute distress, obese Chest: Nontender Lungs: Coarse breath sounds at the bases bilaterally. no wheezing Heart: Normal S1-S2, Regular rhythm and rate. No murmur, S3, or S4 Abdomen: Firm, nontender, distended, bowel sounds are present. No guarding no rebound tenderness Extremities: swelling of thighs bilaterally. no pedal edema appreciated Results Results 24hrs Laboratory Tests Test 02/19/19 17:14 02/19/19 21:35 02/19/19 21:38 02/19/19 22:38 Bedside Glucose 146 67 L 66 L 109 Test 02/20/19 01:56 02/20/19 05:34 02/20/19 07:48 02/20/19 12:04 Bedside Glucose 181 134 71 White Blood Count 6.0 Red Blood Count 2.65 L Hemoglobin 7.0 L Hematocrit 22.3 L Mean Corpuscular 84.2 Volume Mean Corpuscular 26.4 L Hemoglobin Mean Corpuscular 31.4 L Hemoglobin Concent Red Cell 15.0 H Distribution Width Platelet Count 174 Mean Platelet Volume 11.5 H Immature 0.300 Granulocytes % Neutrophils % 70.1 Lymphocytes % 9.2 L Monocytes % 11.9 H Eosinophils % 8.2 H Basophils % 0.3 Nucleated Red Blood 0.0 Cells % Immature 0.020 Granulocytes # Neutrophils # 4.2 Lymphocytes # 0.6 L Monocytes # 0.7 Eosinophils # 0.5 Basophils # 0.0 Nucleated Red Blood 0.0 Cells # Sodium Level 142 Potassium Level 3.6 Chloride Level 104 Carbon Dioxide Level 27 Anion Gap 11 Blood Urea Nitrogen 75 H Creatinine 4.19 H Est Glomerular 16 L Filtrat Rate mL/min Glucose Level 137 Calcium Level 8.0 L Phosphorus Level 4.7 Magnesium Level 2.4 Total Bilirubin 0.4 Direct Bilirubin 0.00 Indirect Bilirubin 0.4 Aspartate Amino 15 Transf (AST/SGOT) Alanine 27 Aminotransferase (AL T/SGPT) Alkaline Phosphatase 91 Total Protein 6.3 Albumin 3.5 Globulin 2.80 Albumin/Globulin 1.25 Ratio Test 02/20/19 13:08 Prothrombin Time 13.7 Prothrombin Time 1.1 Ratio INR International 1.04 Normalized Ratio Activated 65.5 H Partial Thromboplast Time Medications Medication Current Medications IV Flush (NS 3 ml) 3 ml PER PROTOCOL IV ; Start 02/18/19 at 01:30 Ondansetron HCl (Zofran Inj) 4 mg Q6H PRN IV NAUSEA/VOMITING; Start 02/18/19 at 01:30 Nitroglycerin (Nitroglycerin (Sl Tab) 0.4 Mg) 1 tab Q5M PRN SL .CHEST PAIN; Start 02/18/19 at 01:30 Acetaminophen (Tylenol Tab) 650 mg Q6H PRN PO .PAIN 1-3 OR TEMP; Start 02/18/19 at 01:30 Docusate Sodium (Colace) 100 mg Q12H PRN PO .CONSTIPATION; Start 02/18/19 at 01:30 Bisacodyl (Dulcolax) 5 mg DAILY PRN PO .CONSTIPATION Last administered on 02/19/19 13:46; Admin Dose 5 MG; Start 02/18/19 at 01:30 Insulin Aspart (Novolog Insulin Pen) NOVOLOG *MILD* ALGORITHM WITH MEALS BEDTIME SC Last administered on 02/19/19 17:22; Admin Dose 1 UNIT; Start 02/18/19 at 08:00 Atorvastatin Calcium (Lipitor) 80 mg QHS PO Last administered on 02/19/19 22:03; Admin Dose 80 MG; Start 02/18/19 at 21:00 Carvedilol (Coreg) 6.25 mg BID PO Last administered on 02/20/19 09:03; Admin Dose 6.25 MG; Start 02/18/19 at 09:00 Doxazosin Mesylate (Cardura) 4 mg HS PO Last administered on 02/19/19 22:02; Admin Dose 4 MG; Start 02/18/19 at 21:00 EZETIMIBE (Zetia) 10 mg HS PO Last administered on 02/19/19 22:04; Admin Dose 10 MG; Start 02/18/19 at 21:00 Hydralazine HCl (Apresoline) 50 mg Q8H PRN PO SBP >170; Start 02/18/19 at 04:30 Hydralazine HCl (Apresoline) 100 mg TID PO Last administered on 02/20/19 13:27; Admin Dose 100 MG; Start 02/18/19 at 09:00 Isosorbide Mononitrate (Imdur) 60 mg DAILY PO Last administered on 02/20/19 09:01; Admin Dose 60 MG; Start 02/18/19 at 09:00 Potassium Chloride (Klor-Con 10) 10 meq BID PO Last administered on 02/20/19 09:02; Admin Dose 10 MEQ; Start 02/18/19 at 09:00 Sevelamer Carbonate (Renvela) 0.8 gm WITH MEALS PO Last administered on 02/20/19 12:06; Admin Dose 0.8 GM; Start 02/18/19 at 08:00 Spironolactone (Aldactone) 25 mg DAILY PO Last administered on 02/20/19at 09:03; Admin Dose 25 MG; Start 02/18/19 at 09:00 Morphine Sulfate (morphine) 2 mg Q4H PRN IV SEVERE PAIN LEVEL 7-10 Last administered on 02/20/19at 09:17; Admin Dose 2 MG; Start 02/18/19 at 05:30 Bumetanide (Bumex) 1 mg BID DIURETICS IV Last administered on 02/20/19at 05:34; Admin Dose 1 MG; Start 02/18/19 at 06:00 Miscellaneous Information 1 ea NOTE XX ; Start 02/18/19 at 06:30 Glucose (Glutose) 15 gm Q15M PRN PO DECREASED GLUCOSE; Start 02/18/19 at 06:30 Glucose (Glutose) 22.5 gm Q15M PRN PO DECREASED GLUCOSE; Start 02/18/19 at 06:30 Dextrose (D50w Syringe) 25 ml Q15M PRN IV DECREASED GLUCOSE; Start 02/18/19 at 06:30 Dextrose (D50w Syringe) 50 ml Q15M PRN IV DECREASED GLUCOSE; Start 02/18/19 at 06:30 Glucagon (Glucagen) 1 mg Q15M PRN IM DECREASED GLUCOSE; Start 02/18/19 at 06:30 Glucose (Glutose) 15 gm Q15M PRN BUCCAL DECREASED GLUCOSE; Start 02/18/19 at 06:30 Nifedipine (Procardia Xl) 60 mg BID PO Last administered on 02/20/19at 09:02; Admin Dose 60 MG; Start 02/18/19 at 21:00 Diphenhydramine HCl (Benadryl) 50 mg Q6H PRN PO ITCHING Last administered on 02/20/19at 02:00; Admin Dose 50 MG; Start 02/19/19 at 00:00 Insulin Aspart (Novolog Insulin Pen) 10 unit WITH MEALS SC ; Start 02/20/19 at 12:00 Insulin Glargine (Lantus) 20 units QHS SC ; Start 02/20/19 at 21:00 Magnesium Hydroxide (Milk Of Mag) 30 ml BID PRN PO CONSTIPATION; Start 02/20/19 at 11:30 Epoetin Randolph-epbx (Retacrit (Esrd)) 40,000 unit Fr@1700 SC ; Start 02/21/19 at 17:00 Ceftriaxone Sodium 50 ml @ 100 mls/hr Q24H IVPB ; Start 02/20/19 at 14:30 ZENON CABRERA MD Feb 20, 2019 16:34
[2019-02-20] MEDS: CEFTRIAXONE 1 GM/50 ML (PMX) 50 ML IVPB SCH (17:13)
[2019-02-20 20:00] VITALS: BP 156/75; PULSE 76; RESP 19
[2019-02-20] MEDS: ATORVASTATIN 80 MG TAB PO SCH (21:23)
[2019-02-20] MEDS: EZETIMIBE 10 MG TAB PO SCH (21:23)
[2019-02-20] MEDS: DOXAZOSIN 4 MG TAB PO SCH (21:25)
[2019-02-20] MEDS: INSULIN GLARGINE [LANTus] (100 UNITS/ML) SYG SC SCH (21:37)
[2019-02-21] VITALS (9 sets, daily range): BP systolic 132–163; BP diastolic 62–83; PULSE 71–85; RESP 18–20
[2019-02-21] MEDS: DIPHENHYDRAMINE 50 MG CAP PO PRN (02:49)
[2019-02-21] MEDS: BUMETANIDE 1 MG INJ IV SCH ×2 (06:21→17:06)
[2019-02-21] MEDS: INSULIN ASPART [NOVOLOG] 3 ML PEN SC SCH ×7 (08:00→22:12)
[2019-02-21] MEDS: SPIRONOLACTONE 25 MG TAB PO SCH (08:19)
[2019-02-21] MEDS: ISOSORBIDE MONONITRATE(SR)60 MG TAB PO SCH (08:20)
[2019-02-21] MEDS: NIFEdipine (XL) 30 MG TAB PO SCH ×2 (08:21→22:05)
[2019-02-21] MEDS: POTASSIUM CHLORIDE (SR) 10 MEQ TAB PO SCH ×2 (08:22→22:06)
[2019-02-21] MEDS: SEVELAMER CARBONATE 0.8 GM PKT PO SCH ×3 (08:22→17:06)
--- NOTE | 2019-02-21 08:49 | PN ---
DATE: 02/21/2019 SUBJECTIVE: The patient is stable. Urinary output has been adequate. No other acute events noted. OBJECTIVE: VITAL SIGNS: Blood pressure is 144/69, pulse 74, respirations 18, temperature 98.0. HEENT: Head is normocephalic. NECK: Supple. HEART: Regular rate. LUNGS: Show diminished breath sounds at the base. ABDOMEN: Soft, nontender to palpation. No rebound or guarding. EXTREMITIES: Negative for clubbing, cyanosis. Positive edema. DERMATOLOGIC: No rashes. MUSCULOSKELETAL: No joint effusion. NEUROLOGIC: No change in exam. MEDICATIONS: The patient's medications have been reviewed. LABORATORY DATA: Reviewed. IMAGING STUDIES: Reviewed. ASSESSMENT AND PLAN: 1. Chronic kidney disease stage IV. Renal function is currently stable at baseline. Continue [facility] treatment plans, supportive care, renally dose all medications. Monitor renal function closely on diuretic therapy. 2. Volume overload. Etiology is multifactorial secondary to acute heart failure, advanced chronic k idney disease. Continue current diuretic regimen. Continue Bumex. Continue metolazone intermittent ly. 3. Anemia. Continue to monitor hemoglobin and hematocrit levels. Continue Epogen. 4. Mineral bone disorder. Monitor calcium and phosphorus levels. 5. Atrial fibrillation, currently rate controlled. Continue medical management. 6. Diabetes. Continue current insulin regimen. 7. Sepsis. Continue current antibiotic therapy. 8. Morbid obesity. Continue dietary modification. 9. Abdominal distention. The patient's CT scan was reviewed. 10. Gastrointestinal and deep vein thrombosis prophylaxis. Dictated By: LUIS DICKINSON DO NR/NTS Conf#: [id number] DID#: [id number] CC: ZENON CABRERA MD; DAMON MO MD;*EndCC*
[2019-02-21] MEDS ORDERED: LIDOCAINE 1% (MPF) 5 ML VIAL ONE (10:49)
--- NOTE | 2019-02-21 11:39 | CONS ---
Consult Date/Type/Reason Admit Date/Time Feb 18, 2019 at 00:37 Initial Consult Date Requesting Provider: DAMON MO Date/Time of Note DATE: 02/21/19 TIME: 11:36 Subjective Pt status post thoracocentesis - 1.1 L out - feels much better now - H/H down, but no blood tx planned toady - con't to remove fluid as tolerated. ROS: No fever, no chills, no nausea, no vomiting, no diarrhea/constipation - much better SOB s/p thoracocentesis Objective Vitals Vital Signs Date Temp Pulse Resp B/P (MAP) Pulse Ox O2 O2 Flow FiO2 Time Delivery Rate 02/21/19 98.4 75 18 136/62 97 11:28 (86) 02/21/19 2.0 09:25 02/20/19 Nasal 20:00 Cannula Intake and Output 02/20/19 02/20/19 02/21/19 1515:00 23:00 07:00 IntakeIntake Total 720 ml 310 ml 240 ml OutputOutput Total 1325 ml 1100 ml 980 ml BalanceBalance -605 ml -790 ml -740 ml Exam General: WN/WD/NAD, AOx 3 HEENT: Unicetric/atraumatic/EOMI ( follow commands) NECK: JVD elevated, no thyromegaly Lymph: no lymphadenopathy HEART: regular with no S3, II/ systolic murmur at apex, PMI L LUNGS: Coarse sounds ABD: soft, NT, ND, +BS : Intact Neuro: non focal SKIN: chronic changes EXT: 2+ edema Results/Medications Result Diagram: 02/21/19 0540 02/21/19 0541 Results 24 hrs Laboratory Tests Test 02/20/19 12:04 02/20/19 13:08 02/20/19 17:11 02/20/19 21:29 Bedside Glucose 71 108 181 Prothrombin Time 13.7 Prothrombin Time 1.1 Ratio INR International 1.04 Normalized Ratio Activated 65.5 H Partial Thrombopl ast Time Test 02/21/19 02:40 02/21/19 05:40 02/21/19 05:41 02/21/19 07:30 Bedside Glucose 138 102 White Blood Count 5.6 Red Blood Count 2.61 L Hemoglobin 6.8 *L Hematocrit 21.4 L Mean Corpuscular 82.0 Volume Mean Corpuscular 26.1 L Hemoglobin Mean Corpuscular 31.8 L Hemoglobin Concen t Red Cell 15.2 H Distribution Width Platelet Count 161 Mean Platelet 11.2 H Volume Immature 0.400 Granulocytes % Neutrophils % 66.9 Lymphocytes % 11.1 L Monocytes % 13.5 H Eosinophils % 7.7 H Basophils % 0.4 Nucleated Red 0.0 Blood Cells % Immature 0.020 Granulocytes # Neutrophils # 3.7 Lymphocytes # 0.6 L Monocytes # 0.8 Eosinophils # 0.4 Basophils # 0.0 Nucleated Red 0.0 Blood Cells # Sodium Level 141 Potassium Level 4.1 Chloride Level 103 Carbon Dioxide 27 Level Anion Gap 11 Blood Urea 85 H Nitrogen Creatinine 4.26 H Est Glomerular 15 L Filtrat Rate mL/min Glucose Level 98 Calcium Level 8.1 L Phosphorus Level 5.0 H Magnesium Level 2.5 Total Bilirubin 0.4 Direct Bilirubin 0.00 Indirect 0.4 Bilirubin Aspartate Amino 18 Transf (AST/SGOT) Alanine 25 Aminotransferase (ALT/SGPT) Alkaline 78 Phosphatase Total Protein 6.4 Albumin 3.5 Globulin 2.90 Albumin/Globulin 1.20 Ratio Test 02/21/19 10:40 Body Fluid Type THORACENTESIS FL UID Body Fluid 148 Glucose Home Meds Active Scripts Isosorbide Mononitrate* (Isosorbide Mononitrate*) 60 Mg Tab.er.24h, 60 MG PO DAILY, #30 TAB 2 Refills Prov:TREY MONTEJO 12/19/18 Carvedilol* (Carvedilol*) 6.25 Mg Tablet, 6.25 MG PO BID for 30 Days, #60 TAB 2 Refills Prov:TREY MONTEJO 12/19/18 Sevelamer Carbonate* (Renvela*) 800 Mg Tablet, 800 MG PO WITH MEALS, #60 TAB Prov:DAPHNE GALAN 09/26/18 Doxazosin Mesylate* (Cardura*) 4 Mg Tablet, 4 MG PO HS, #60 TAB Prov:DAPHNE GALAN 09/26/18 Nifedipine* (Nifedipine ER*) 60 Mg Tablet.sa, 60 MG PO BID, #60 TAB.SA Prov:BREANA MORALES NP 05/09/18 Bumetanide* (Bumetanide*) 2 Mg Tablet, 2 MG PO BID, #180 TAB Prov:LOLIS CROWDER MD 05/09/18 Reported Medications Hydralazine Hcl* (Hydralazine Hcl*) 100 Mg Tablet, 100 MG PO TID, #90 TAB 05/07/18 Potassium Chloride* (K-Dur*) 10 Meq Tab.prt.sr, 10 MEQ PO BID, TAB 05/06/18 Hydralazine Hcl* (Hydralazine Hcl*) 50 Mg Tab, 50 MG PO Q8 PRN for ELEVATED BLOOD PRESSURE, #90 TAB 05/06/18 Ezetimibe* (Zetia*) 10 Mg Tablet, 10 MG PO HS, TAB 05/06/18 Apixaban* (Eliquis*) 5 Mg Tablet, 5 MG PO BID, TAB 05/06/18 Spironolactone* (Aldactone*) 25 Mg Tablet, 25 MG PO DAILY, #30 TAB 04/16/18 Cholecalciferol* (Vitamin D3*) 1,000 Unit Tablet, 2000 UNIT PO DAILY, TAB 04/16/18 Insulin Lispro (Humalog Kwikpen U-100) 100 Unit/1 Ml Insuln.pen, 15 UNIT SQ WITH MEALS, EA 04/16/18 Insulin Glargine* (Lantus*) 100 Unit/Ml Soln, 30 UNIT SC QHS, #1 VIAL 02/28/18 Atorvastatin* (Atorvastatin*) 80 Mg Tablet, 80 MG PO QHS, #30 TAB 02/07/18 Medications Current Medications IV Flush (NS 3 ml) 3 ml PER PROTOCOL IV ; Start 02/18/19 at 01:30 Ondansetron HCl (Zofran Inj) 4 mg Q6H PRN IV NAUSEA/VOMITING; Start 02/18/19 at 01:30 Nitroglycerin (Nitroglycerin (Sl Tab) 0.4 Mg) 1 tab Q5M PRN SL .CHEST PAIN; Start 02/18/19 at 01:30 Acetaminophen (Tylenol Tab) 650 mg Q6H PRN PO .PAIN 1-3 OR TEMP; Start 02/18/19 at 01:30 Docusate Sodium (Colace) 100 mg Q12H PRN PO .CONSTIPATION; Start 02/18/19 at 01:30 Bisacodyl (Dulcolax) 5 mg DAILY PRN PO .CONSTIPATION Last administered on 02/19/19at 13:46; Admin Dose 5 MG; Start 02/18/19 at 01:30 Insulin Aspart (Novolog Insulin Pen) NOVOLOG *MILD* ALGORITHM WITH MEALS BEDTIME SC Last administered on 02/20/19 21:38; Admin Dose 1 UNIT; Start 02/18/19 at 08:00 Atorvastatin Calcium (Lipitor) 80 mg QHS PO Last administered on 02/20/19 21:23; Admin Dose 80 MG; Start 02/18/19 at 21:00 Carvedilol (Coreg) 6.25 mg BID PO Last administered on 02/21/19 08:21; Admin Dose 6.25 MG; Start 02/18/19 at 09:00 Doxazosin Mesylate (Cardura) 4 mg HS PO Last administered on 02/20/19 21:25; Admin Dose 4 MG; Start 02/18/19 at 21:00 EZETIMIBE (Zetia) 10 mg HS PO Last administered on 02/20/19 21:23; Admin Dose 10 MG; Start 02/18/19 at 21:00 Hydralazine HCl (Apresoline) 50 mg Q8H PRN PO SBP >170; Start 02/18/19 at 04:30 Hydralazine HCl (Apresoline) 100 mg TID PO Last administered on 02/21/19 08:20; Admin Dose 100 MG; Start 02/18/19 at 09:00 Isosorbide Mononitrate (Imdur) 60 mg DAILY PO Last administered on 02/21/19 08:20; Admin Dose 60 MG; Start 02/18/19 at 09:00 Potassium Chloride (Klor-Con 10) 10 meq BID PO Last administered on 02/21/19 08:22; Admin Dose 10 MEQ; Start 02/18/19 at 09:00 Sevelamer Carbonate (Renvela) 0.8 gm WITH MEALS PO Last administered on 02/21/19 11:33; Admin Dose 0.8 GM; Start 02/18/19 at 08:00 Spironolactone (Aldactone) 25 mg DAILY PO Last administered on 02/21/19 08:19; Admin Dose 25 MG; Start 02/18/19 at 09:00 Morphine Sulfate (morphine) 2 mg Q4H PRN IV SEVERE PAIN LEVEL 7-10 Last admini stered on 6/27/19at 21:43; Admin Dose 2 MG; Start 02/18/19 at 05:30 Bumetanide (Bumex) 1 mg BID DIURETICS IV Last administered on 02/21/19at 06:21; Admin Dose 1 MG; Start 02/18/19 at 06:00 Miscellaneous Information 1 ea NOTE XX ; Start 02/18/19 at 06:30 Glucose (Glutose) 15 gm Q15M PRN PO DECREASED GLUCOSE; Start 02/18/19 at 06:30 Glucose (Glutose) 22.5 gm Q15M PRN PO DECREASED GLUCOSE; Start 02/18/19 at 06:30 Dextrose (D50w Syringe) 25 ml Q15M PRN IV DECREASED GLUCOSE; Start 02/18/19 at 06:30 Dextrose (D50w Syringe) 50 ml Q15M PRN IV DECREASED GLUCOSE; Start 02/18/19 at 06:30 Glucagon (Glucagen) 1 mg Q15M PRN IM DECREASED GLUCOSE; Start 02/18/19 at 06:30 Glucose (Glutose) 15 gm Q15M PRN BUCCAL DECREASED GLUCOSE; Start 02/18/19 at 06:30 Nifedipine (Procardia Xl) 60 mg BID PO Last administered on 02/21/19at 08:21; Admin Dose 60 MG; Start 02/18/19 at 21:00 Diphenhydramine HCl (Benadryl) 50 mg Q6H PRN PO ITCHING Last administered on 02/21/19at 02:49; Admin Dose 50 MG; Start 02/19/19 at 00:00 Insulin Aspart (Novolog Insulin Pen) 10 unit WITH MEALS SC ; Start 02/20/19 at 12:00 Insulin Glargine (Lantus) 20 units QHS SC Last administered on 02/20/19at 21:37; Admin Dose 20 UNITS; Start 02/20/19 at 21:00 Magnesium Hydroxide (Milk Of Mag) 30 ml BID PRN PO CONSTIPATION Last adminis tered on 02/20/19at 21:42; Admin Dose 30 ML; Start 02/20/19 at 11:30 Epoetin Randolph-epbx (Retacrit (Esrd)) 40,000 unit Fr@1700 SC ; Start 02/21/19 at 17:00 Ceftriaxone Sodium 50 ml @ 100 mls/hr Q24H IVPB Last administered on 02/20/19at 17:13; Admin Dose 100 MLS/HR; Start 02/20/19 at 14:30 Assessment/Plan Hospital Course (Demo Recall) 1.CHF-diastolic acute on chronic by echo 12/16/18 revealing EF 60%-neg trop x 3 - con't to remove volume as toletaed - defer HD Rx if needed to renal team, 2.HTN-somewhat labile - con't to monitor now. 3.chronic kidney disease-not yet on HD - renal follows. 4.H/O PAF on anticoagulation in SR at this time - to be held in a setting of severe anemia 5.anemia - no blood tx now 6. Pleural effusion - s/p thoracocentesis DELIA BILLY MD Feb 21, 2019 11:39
[2019-02-21] MEDS: CEFTRIAXONE 1 GM/50 ML (PMX) 50 ML IVPB SCH (13:32)
--- NOTE | 2019-02-21 15:01 | PN ---
Date/Time of Note Date/Time of Note DATE: 02/21/19 TIME: 14:57 Assessment/Plan VTE Prophylaxis Risk score (from Ns)>0 risk: 1 SCD applied (from [facility] [place] No SCD contraindicated: low risk/ambulating Pharmacological prophylaxis: NA/contraindicated Pharm contraindication: renal impairment Lines/Catheters IV Catheter Type (from [facility]): Saline Lock Urinary Cath still in place: No Assessment/Plan Assessment/Plan 1. Acute on chronic diastolic heart failure- stable - was diuresing well while on Bumex drip - Thoracentesis this am with 1100cc removed and fluids sent for cx - Discussed with patient he will need dialysis to help remove excess fluid - ECHO from November shows EF 60% - monitor I/O and daily weights 2. R pleural effusion s/p thoracentesis 02/21/19 - 1100 cc out 3. Anemia of chronic disease - patient is followed by Dr. Crawford as outpatient. will give Epogen 40K today 4. MARIA DEL CARMEN on CKD - per patient, he is supposed to start peritoneal dialysis in March - Nephrology consultation appreciated 5. Afib - currently rate controlled - will hold anticoagulation in setting of anemia 6. Diabetes Mellitus - A1c noted - adjustments made to insulin and ISS given hypoglycemia episodes 7. Morbid obesity 8. Abdominal distension - CT scan showed diffuse edema and discussed with patient will improve after dialysis initiated - no ascites appreciated 9. Disposition - Will give Procrit today and monitor hgb levels. Once shortness of breath improves, will d/c home to follow up for outpatient HD Result Diagram: 02/21/19 0540 02/21/19 0541 Results 24hrs Laboratory Tests Test 02/20/19 17:11 02/20/19 21:29 02/21/19 02:40 02/21/19 05:40 Bedside Glucose 108 181 138 White Blood Count 5.6 Red Blood Count 2.61 L Hemoglobin 6.8 *L Hematocrit 21.4 L Mean Corpuscular 82.0 Volume Mean Corpuscular 26.1 L Hemoglobin Mean Corpuscular 31.8 L Hemoglobin Concen t Red Cell 15.2 H Distribution Width Platelet Count 161 Mean Platelet 11.2 H Volume Immature 0.400 Granulocytes % Neutrophils % 66.9 Segmented 69 Neutrophils % (Manual) Band Neutrophils 1 % (Manual) Lymphocytes % 11.1 L Lymphocytes % 10 L (Manual) Monocytes % 13.5 H Monocytes % 9 (Manual) Eosinophils % 7.7 H Eosinophils % 11 H (Manual) Basophils % 0.4 Nucleated Red 0.0 Blood Cells % Immature 0.020 Granulocytes # Neutrophils # 3.7 Neutrophils # 3.9 (Manual) Band Neutrophils 0.0 # Lymphocytes 0.5 L (Manual) Lymphocytes # 0.6 L Monocytes # 0.8 Monocytes # 0.5 (Manual) Eosinophils # 0.4 Basophils # 0.0 Nucleated Red 0.0 Blood Cells # Platelet Estimate INCREASED Giant Platelets 3 H Poikilocytosis 1+ Anisocytosis 2+ Microcytosis 1+ Ovalocytes 1+ Test 02/21/19 05:41 02/21/19 07:30 02/21/19 10:40 02/21/19 11:32 Sodium Level 141 Potassium Level 4.1 Chloride Level 103 Carbon Dioxide 27 Level Anion Gap 11 Blood Urea 85 H Nitrogen Creatinine 4.26 H Est Glomerular 15 L Filtrat Rate mL/min Glucose Level 98 Calcium Level 8.1 L Phosphorus Level 5.0 H Magnesium Level 2.5 Total Bilirubin 0.4 Direct Bilirubin 0.00 Indirect 0.4 Bilirubin Aspartate Amino 18 Transf (AST/SGOT) Alanine 25 Aminotransferase (ALT/SGPT) Alkaline 78 Phosphatase Total Protein 6.4 Albumin 3.5 Globulin 2.90 Albumin/Globulin 1.20 Ratio Bedside Glucose 102 228 H Pathologist Y Review (Hematolog y) Body Fluid Type THORACENTESIS FL UID Body Fluid Volume 1100.0 Body Fluid Color YELLOW Body Fluid CLEAR Appearance Body Fluid WBC 59 Body Fluid RBC 0 (Auto) Body Fluid 27.1 Polynuclear WBCs (%) Body Fluid 72.9 Mononuclear Cells % Auto Body Fluid 148 Glucose Body Fluid Total < 2.0 Protein Body Fluid 205 Lactate Dehydroge nase Subjective 24 Hr Interval Summary Free Text/Dictation Patient was complaining of shortness of breath this am prior to thoracentesis. Resting comfortably following procedure. Exam/Review of Systems Exam Vitals Vital Signs Date Temp Pulse Resp B/P (MAP) Pulse Ox O2 O2 Flow FiO2 Time Delivery Rate 02/21/19 98.4 75 18 136/62 97 11:28 (86) 02/21/19 Room Air 10:20 02/21/19 2.0 09:25 Intake and Output 02/20/19 02/20/19 02/21/19 1515:00 23:00 07:00 IntakeIntake Total 720 ml 310 ml 240 ml OutputOutput Total 1325 ml 1100 ml 980 ml BalanceBalance -605 ml -790 ml -740 ml Exam General: no acute distress, obese Chest: Nontender Lungs: Coarse breath sounds at the bases bilaterally. no wheezing Heart: Normal S1-S2, Regular rhythm and rate. No murmur, S3, or S4 Abdomen: Firm, nontender, distended, bowel sounds are present. No guarding no rebound tenderness Extremities: swelling of thighs bilaterally. no pedal edema appreciated Results Results 24hrs Laboratory Tests Test 02/20/19 17:11 02/20/19 21:29 02/21/19 02:40 02/21/19 05:40 Bedside Glucose 108 181 138 White Blood Count 5.6 Red Blood Count 2.61 L Hemoglobin 6.8 *L Hematocrit 21.4 L Mean Corpuscular 82.0 Volume Mean Corpuscular 26.1 L Hemoglobin Mean Corpuscular 31.8 L Hemoglobin Concen t Red Cell 15.2 H Distribution Width Platelet Count 161 Mean Platelet 11.2 H Volume Immature 0.400 Granulocytes % Neutrophils % 66.9 Segmented 69 Neutrophils % (Manual) Band Neutrophils 1 % (Manual) Lymphocytes % 11.1 L Lymphocytes % 10 L (Manual) Monocytes % 13.5 H Monocytes % 9 (Manual) Eosinophils % 7.7 H Eosinophils % 11 H (Manual) Basophils % 0.4 Nucleated Red 0.0 Blood Cells % Immature 0.020 Granulocytes # Neutrophils # 3.7 Neutrophils # 3.9 (Manual) Band Neutrophils 0.0 # Lymphocytes 0.5 L (Manual) Lymphocytes # 0.6 L Monocytes # 0.8 Monocytes # 0.5 (Manual) Eosinophils # 0.4 Basophils # 0.0 Nucleated Red 0.0 Blood Cells # Platelet Estimate INCREASED Giant Platelets 3 H Poikilocytosis 1+ Anisocytosis 2+ Microcytosis 1+ Ovalocytes 1+ Test 02/21/19 05:41 02/21/19 07:30 02/21/19 10:40 02/21/19 11:32 Sodium Level 141 Potassium Level 4.1 Chloride Level 103 Carbon Dioxide 27 Level Anion Gap 11 Blood Urea 85 H Nitrogen Creatinine 4.26 H Est Glomerular 15 L Filtrat Rate mL/min Glucose Level 98 Calcium Level 8.1 L Phosphorus Level 5.0 H Magnesium Level 2.5 Total Bilirubin 0.4 Direct Bilirubin 0.00 Indirect 0.4 Bilirubin Aspartate Amino 18 Transf (AST/SGOT) Alanine 25 Aminotransferase (ALT/SGPT) Alkaline 78 Phosphatase Total Protein 6.4 Albumin 3.5 Globulin 2.90 Albumin/Globulin 1.20 Ratio Bedside Glucose 102 228 H Pathologist Y Review (Hematolog y) Body Fluid Type THORACENTESIS FL UID Body Fluid Volume 1100.0 Body Fluid Color YELLOW Body Fluid CLEAR Appearance Body Fluid WBC 59 Body Fluid RBC 0 (Auto) Body Fluid 27.1 Polynuclear WBCs (%) Body Fluid 72.9 Mononuclear Cells % Auto Body Fluid 148 Glucose Body Fluid Total < 2.0 Protein Body Fluid 205 Lactate Dehydroge nase Medications Medication Current Medications IV Flush (NS 3 ml) 3 ml PER PROTOCOL IV ; Start 02/18/19 at 01:30 Ondansetron HCl (Zofran Inj) 4 mg Q6H PRN IV NAUSEA/VOMITING; Start 02/18/19 at 01:30 Nitroglycerin (Nitroglycerin (Sl Tab) 0.4 Mg) 1 tab Q5M PRN SL .CHEST PAIN; Start 02/18/19 at 01:30 Acetaminophen (Tylenol Tab) 650 mg Q6H PRN PO .PAIN 1-3 OR TEMP; Start 02/18/19 at 01:30 Docusate Sodium (Colace) 100 mg Q12H PRN PO .CONSTIPATION; Start 02/18/19 at 01:30 Bisacodyl (Dulcolax) 5 mg DAILY PRN PO .CONSTIPATION Last administered on 02/19/19at 13:46; Admin Dose 5 MG; Start 02/18/19 at 01:30 Insulin Aspart (Novolog Insulin Pen) NOVOLOG *MILD* ALGORITHM WITH MEALS BEDTIME SC Last administered on 02/21/19at 11:40; Admin Dose 3 UNIT; Start 02/18/19 at 08:00 Atorvastatin Calcium (Lipitor) 80 mg QHS PO Last administered on 02/20/19 21:23; Admin Dose 80 MG; Start 02/18/19 at 21:00 Carvedilol (Coreg) 6.25 mg BID PO Last administered on 02/21/19 08:21; Admin Dose 6.25 MG; Start 02/18/19 at 09:00 Doxazosin Mesylate (Cardura) 4 mg HS PO Last administered on 02/20/19 21:25; Admin Dose 4 MG; Start 02/18/19 at 21:00 EZETIMIBE (Zetia) 10 mg HS PO Last administered on 02/20/19 21:23; Admin Dose 10 MG; Start 02/18/19 at 21:00 Hydralazine HCl (Apresoline) 50 mg Q8H PRN PO SBP >170; Start 02/18/19 at 04:30 Hydralazine HCl (Apresoline) 100 mg TID PO Last administered on 02/21/19 1 3:22; Admin Dose 100 MG; Start 02/18/19 at 09:00 Isosorbide Mononitrate (Imdur) 60 mg DAILY PO Last administered on 02/21/19 08:20; Admin Dose 60 MG; Start 02/18/19 at 09:00 Potassium Chloride (Klor-Con 10) 10 meq BID PO Last administered on 02/21/19 08:22; Admin Dose 10 MEQ; Start 02/18/19 at 09:00 Sevelamer Carbonate (Renvela) 0.8 gm WITH MEALS PO Last administered on 02/21/19 11:33; Admin Dose 0.8 GM; Start 02/18/19 at 08:00 Spironolactone (Aldactone) 25 mg DAILY PO Last administered on 02/21/19 08:19; Admin Dose 25 MG; Start 02/18/19 at 09:00 Morphine Sulfate (morphine) 2 mg Q4H PRN IV SEVERE PAIN LEVEL 7-10 Last administered on 02/20/19 21:43; Admin Dose 2 MG; Start 02/18/19 at 05:30 Bumetanide (Bumex) 1 mg BID DIURETICS IV Last administered on 02/21/19 06:21; Admin Dose 1 MG; Start 02/18/19 at 06:00 Miscellaneous Information 1 ea NOTE XX ; Start 02/18/19 at 06:30 Glucose (Glutose) 15 gm Q15M PRN PO DECREASED GLUCOSE; Start 02/18/19 at 06:30 Glucose (Glutose) 22.5 gm Q15M PRN PO DECREASED GLUCOSE; Start 02/18/19 at 06:30 Dextrose (D50w Syringe) 25 ml Q15M PRN IV DECREASED GLUCOSE; Start 02/18/19 at 06:30 Dextrose (D50w Syringe) 50 ml Q15M PRN IV DECREASED GLUCOSE; Start 02/18/19 at 06:30 Glucagon (Glucagen) 1 mg Q15M PRN IM DECREASED GLUCOSE; Start 02/18/19 at 06:30 Glucose (Glutose) 15 gm Q15M PRN BUCCAL DECREASED GLUCOSE; Start 02/18/19 at 06:30 Nifedipine (Procardia Xl) 60 mg BID PO Last administered on 02/21/19 08:21; Admin Dose 60 MG; Start 02/18/19 at 21:00 Diphenhydramine HCl (Benadryl) 50 mg Q6H PRN PO ITCHING Last administered on 02/21/19 02:49; Admin Dose 50 MG; Start 02/19/19 at 00:00 Insulin Aspart (Novolog Insulin Pen) 10 unit WITH MEALS SC Last administered on 02/21/19 11:39; Admin Dose 10 UNIT; Start 02/20/19 at 12:00 Insulin Glargine (Lantus) 20 units QHS SC Last administered on 02/20/19 21:37; Admin Dose 20 UNITS; Start 02/20/19 at 21:00 Magnesium Hydroxide (Milk Of Mag) 30 ml BID PRN PO CONSTIPATION Last administe red on 02/20/19 21:42; Admin Dose 30 ML; Start 02/20/19 at 11:30 Epoetin Randolph (Epogen (Esrd)) 40,000 units Fr@1700 SC ; Start 02/21/19 at 17:00 Ceftriaxone Sodium 50 ml @ 100 mls/hr Q24H IVPB Last administered on 02/21/19at 13:32; Admin Dose 100 MLS/HR; Start 02/20/19 at 14:30 ZENON CABRERA MD Feb 21, 2019 15:01
--- NOTE | 2019-02-21 15:20 | CONS ---
Assessment/Plan Assessment/Plan Hospital Course (Demo Recall) Patient is awake looks comfortable, eating lunch he is status post thoracentesis earlier today with 1100 cc of clear yellow fluid being aspirated. No fevers overnight WBC 5.6 H&H 6.8 and 21.4 platelets 161 BUN 85 creatinine 4.26 Chest x-ray revealed no pneumothorax post thoracentesis Antimicrobials: Patient is on IV Rocephin Microbiology: Blood cultures on admission 1 set grew Leu[place]ost[place], repeat blood cultures negative Physical examination: This is well-developed obese middle-aged man who is alert in no distress. Head atraumatic normocephalic sclera nonicteric vehicle mucosa dry neck is supple chest rise symmetrical breath sounds diminished bases heart S1-S2 abdomen soft bowel sounds present extremities without cyanosis Assessment: 1. Bacteremia consistent with contaminant 2. +/-Pneumonia with bilateral effusions 3. Acute on chronic kidney disease 4. Obesity Plan: Patient is stable post post thoracentesis, continue present care and antibiotics, follow chest x-ray and fluid cultures and cytology, nephrology recommendations Discussed with patient Consultation Date/Type/Reason Admit Date/Time Feb 18, 2019 at 00:37 Initial Consult Date Type of Consult id Requesting Provider: DAMON MO Date/Time of Note DATE: 02/21/19 TIME: 15:19 Exam/Review of Systems Exam Vitals Vital Signs Date Temp Pulse Resp B/P (MAP) Pulse Ox O2 O2 Flow FiO2 Time Delivery Rate 02/21/19 98.4 75 18 136/62 97 11:28 (86) 02/21/19 Room Air 10:20 02/21/19 2.0 09:25 Intake and Output 02/20/19 02/20/19 02/21/19 1515:00 23:00 07:00 IntakeIntake Total 720 ml 310 ml 240 ml OutputOutput Total 1325 ml 1100 ml 980 ml BalanceBalance -605 ml -790 ml -740 ml Results Result Diagram: 02/21/19 0540 02/21/19 0541 Results 24hrs Laboratory Tests Test 02/20/19 17:11 02/20/19 21:29 02/21/19 02:40 02/21/19 05:40 Bedside Glucose 108 181 138 White Blood Count 5.6 Red Blood Count 2.61 L Hemoglobin 6.8 *L Hematocrit 21.4 L Mean Corpuscular 82.0 Volume Mean Corpuscular 26.1 L Hemoglobin Mean Corpuscular 31.8 L Hemoglobin Concen t Red Cell 15.2 H Distribution Width Platelet Count 161 Mean Platelet 11.2 H Volume Immature 0.400 Granulocytes % Neutrophils % 66.9 Segmented 69 Neutrophils % (Manual) Band Neutrophils 1 % (Manual) Lymphocytes % 11.1 L Lymphocytes % 10 L (Manual) Monocytes % 13.5 H Monocytes % 9 (Manual) Eosinophils % 7.7 H Eosinophils % 11 H (Manual) Basophils % 0.4 Nucleated Red 0.0 Blood Cells % Immature 0.020 Granulocytes # Neutrophils # 3.7 Neutrophils # 3.9 (Manual) Band Neutrophils 0.0 # Lymphocytes 0.5 L (Manual) Lymphocytes # 0.6 L Monocytes # 0.8 Monocytes # 0.5 (Manual) Eosinophils # 0.4 Basophils # 0.0 Nucleated Red 0.0 Blood Cells # Platelet Estimate INCREASED Giant Platelets 3 H Poikilocytosis 1+ Anisocytosis 2+ Microcytosis 1+ Ovalocytes 1+ Test 02/21/19 05:41 02/21/19 07:30 02/21/19 10:40 02/21/19 11:32 Sodium Level 141 Potassium Level 4.1 Chloride Level 103 Carbon Dioxide 27 Level Anion Gap 11 Blood Urea 85 H Nitrogen Creatinine 4.26 H Est Glomerular 15 L Filtrat Rate mL/min Glucose Level 98 Calcium Level 8.1 L Phosphorus Level 5.0 H Magnesium Level 2.5 Total Bilirubin 0.4 Direct Bilirubin 0.00 Indirect 0.4 Bilirubin Aspartate Amino 18 Transf (AST/SGOT) Alanine 25 Aminotransferase (ALT/SGPT) Alkaline 78 Phosphatase Total Protein 6.4 Albumin 3.5 Globulin 2.90 Albumin/Globulin 1.20 Ratio Bedside Glucose 102 228 H Pathologist Y Review (Hematolog y) Body Fluid Type THORACENTESIS FL UID Body Fluid Volume 1100.0 Body Fluid Color YELLOW Body Fluid CLEAR Appearance Body Fluid WBC 59 Body Fluid RBC 0 (Auto) Body Fluid 27.1 Polynuclear WBCs (%) Body Fluid 72.9 Mononuclear Cells % Auto Body Fluid 148 Glucose Body Fluid Total < 2.0 Protein Body Fluid 205 Lactate Dehydroge nase Medications Medication Current Medications IV Flush (NS 3 ml) 3 ml PER PROTOCOL IV ; Start 02/18/19 at 01:30 Ondansetron HCl (Zofran Inj) 4 mg Q6H PRN IV NAUSEA/VOMITING; Start 02/18/19 at 01:30 Nitroglycerin (Nitroglycerin (Sl Tab) 0.4 Mg) 1 tab Q5M PRN SL .CHEST PAIN; Start 02/18/19 at 01:30 Acetaminophen (Tylenol Tab) 650 mg Q6H PRN PO .PAIN 1-3 OR TEMP; Start 02/18/19 at 01:30 Docusate Sodium (Colace) 100 mg Q12H PRN PO .CONSTIPATION; Start 02/18/19 at 01:30 Bisacodyl (Dulcolax) 5 mg DAILY PRN PO .CONSTIPATION Last administered on 02/19/19 13:46; Admin Dose 5 MG; Start 02/18/19 at 01:30 Insulin Aspart (Novolog Insulin Pen) NOVOLOG *MILD* ALGORITHM WITH MEALS BEDTIME SC Last administered on 02/21/19 11:40; Admin Dose 3 UNIT; Start 02/18/19 at 08:00 Atorvastatin Calcium (Lipitor) 80 mg QHS PO Last administered on 02/20/19 21:23; Admin Dose 80 MG; Start 02/18/19 at 21:00 Carvedilol (Coreg) 6.25 mg BID PO Last administered on 02/21/19 08:21; Admin Dose 6.25 MG; Start 02/18/19 at 09:00 Doxazosin Mesylate (Cardura) 4 mg HS PO Last administered on 02/20/19 21:25; Admin Dose 4 MG; Start 02/18/19 at 21:00 EZETIMIBE (Zetia) 10 mg HS PO Last administered on 02/20/19 21:23; Admin Dose 10 MG; Start 02/18/19 at 21:00 Hydralazine HCl (Apresoline) 50 mg Q8H PRN PO SBP >170; Start 02/18/19 at 04:30 Hydralazine HCl (Apresoline) 100 mg TID PO Last administered on 02/21/19 13:22; Admin Dose 100 MG; Start 02/18/19 at 09:00 Isosorbide Mononitrate (Imdur) 60 mg DAILY PO Last administered on 02/21/19 08:20; Admin Dose 60 MG; Start 02/18/19 at 09:00 Potassium Chloride (Klor-Con 10) 10 meq BID PO Last administered on 02/21/19 08:22; Admin Dose 10 MEQ; Start 02/18/19 at 09:00 Sevelamer Carbonate (Renvela) 0.8 gm WITH MEALS PO Last administered on 02/21/19 11:33; Admin Dose 0.8 GM; Start 02/18/19 at 08:00 Spironolactone (Aldactone) 25 mg DAILY PO Last administered on 02/21/19 08:19; Admin Dose 25 MG; Start 02/18/19 at 09:00 Morphine Sulfate (morphine) 2 mg Q4H PRN IV SEVERE PAIN LEVEL 7-10 Last administered on 02/20/19 21:43; Admin Dose 2 MG; Start 02/18/19 at 05:30 Bumetanide (Bumex) 1 mg BID DIURETICS IV Last administered on 02/21/19 06:21; Admin Dose 1 MG; Start 02/18/19 at 06:00 Miscellaneous Information 1 ea NOTE XX ; Start 02/18/19 at 06:30 Glucose (Glutose) 15 gm Q15M PRN PO DECREASED GLUCOSE; Start 02/18/19 at 06:30 Glucose (Glutose) 22.5 gm Q15M PRN PO DECREASED GLUCOSE; Start 02/18/19 at 06:30 Dextrose (D50w Syringe) 25 ml Q15M PRN IV DECREASED GLUCOSE; Start 02/18/19 at 06:30 Dextrose (D50w Syringe) 50 ml Q15M PRN IV DECREASED GLUCOSE; Start 02/18/19 at 06:30 Glucagon (Glucagen) 1 mg Q15M PRN IM DECREASED GLUCOSE; Start 02/18/19 at 06:30 Glucose (Glutose) 15 gm Q15M PRN BUCCAL DECREASED GLUCOSE; Start 02/18/19 at 06:30 Nifedipine (Procardia Xl) 60 mg BID PO Last administered on 02/21/19 08:21; Admin Dose 60 MG; Start 02/18/19 at 21:00 Diphenhydramine HCl (Benadryl) 50 mg Q6H PRN PO ITCHING Last administered on 02/21/19 02:49; Admin Dose 50 MG; Start 02/19/19 at 00:00 Insulin Aspart (Novolog Insulin Pen) 10 unit WITH MEALS SC Last administered on 6/28/19at 11:39; Admin Dose 10 UNIT; Start 02/20/19 at 12:00 Insulin Glargine (Lantus) 20 units QHS SC Last administered on 02/20/19at 21:37; Admin Dose 20 UNITS; Start 02/20/19 at 21:00 Magnesium Hydroxide (Milk Of Mag) 30 ml BID PRN PO CONSTIPATION Last administered on 02/20/19at 21:42; Admin Dose 30 ML; Start 02/20/19 at 11:30 Epoetin Randolph (Epogen (Esrd)) 40,000 units Fr@1700 SC ; Start 02/21/19 at 17:00 Ceftriaxone Sodium 50 ml @ 100 mls/hr Q24H IVPB Last administered on 02/21/19at 13:32; Admin Dose 100 MLS/HR; Start 02/20/19 at 14:30 YOLETTE RODRIGUEZ NP Feb 21, 2019 15:20
[2019-02-21] MEDS ORDERED: EPOETIN ALFA (ESRD) 20,000 UNITS/ML VIAL SC SCH (17:00)
[2019-02-21] MEDS: ALBUTEROL/IPRATROPIUM (NEB) 3 ML AMP HHN PRN (21:50)
[2019-02-21] MEDS: DOXAZOSIN 4 MG TAB PO SCH (22:06)
[2019-02-21] MEDS: EZETIMIBE 10 MG TAB PO SCH (22:06)
[2019-02-21] MEDS: ATORVASTATIN 80 MG TAB PO SCH (22:06)
[2019-02-21] MEDS: INSULIN GLARGINE [LANTus] (100 UNITS/ML) SYG SC SCH (22:19)
[2019-02-21] MEDS: morphine 2 MG INJ IV PRN (22:22)
[2019-02-22 03:49] VITALS: BP 135/67; PULSE 73; RESP 20
[2019-02-22] MEDS: BUMETANIDE 1 MG INJ IV SCH ×2 (06:21→17:00)
[2019-02-22 07:39] VITALS: BP 154/71; PULSE 75; RESP 19
[2019-02-22] MEDS: INSULIN ASPART [NOVOLOG] 3 ML PEN SC SCH ×7 (07:41→20:48)
[2019-02-22] MEDS: ALBUTEROL/IPRATROPIUM (NEB) 3 ML AMP HHN PRN (07:57)
[2019-02-22] MEDS: NIFEdipine (XL) 30 MG TAB PO SCH ×2 (08:02→20:45)
[2019-02-22] MEDS: SEVELAMER CARBONATE 0.8 GM PKT PO SCH ×3 (08:02→17:00)
[2019-02-22] MEDS: ISOSORBIDE MONONITRATE(SR)60 MG TAB PO SCH (08:03)
[2019-02-22] MEDS: POTASSIUM CHLORIDE (SR) 10 MEQ TAB PO SCH ×2 (08:03→20:45)
[2019-02-22] MEDS: SPIRONOLACTONE 25 MG TAB PO SCH (08:03)
[2019-02-22] MEDS ORDERED: METOLAZONE 5 MG TAB PO ONE (08:30)
--- NOTE | 2019-02-22 08:41 | PN ---
DATE: 02/22/2019 SUBJECTIVE: The patient is stable, no events overnight. OBJECTIVE: VITAL SIGNS: Blood pressure is 154/71, pulse 75, respiration 19, temperature 98.4. HEENT: Head is normocephalic. NECK: Supple. HEART: Regular rate. LUNGS: Show diminished breath sounds at the base. ABDOMEN: Soft, nontender to palpation. No rebound or guarding. EXTREMITIES: Negative for clubbing, cyanosis. Positive edema. DERMATOLOGIC: No rashes. MUSCULOSKELETAL: No joint effusions. NEUROLOGIC: No change in exam. MEDICATIONS: The patient's medications have been reviewed. LABORATORY DATA: Has been reviewed. IMAGING STUDIES: Have been reviewed. ASSESSMENT AND PLAN: 1. Nonoliguric acute kidney injury on top of chronic kidney disease stage IV. Etiology of MARIA DEL CARMEN is se condary to hemodynamics, cardiorenal syndrome. The patient remains grossly volume overloaded. Urina ry output has been fluctuating. I did speak with the patient about the possibility of initiating rachel lysis. The patient was adamant that he wished to start dialysis later in the year, after AV fistula placement. We will therefore continue current medical management. Continue diuretic therapy, monito r renal function, electrolytes and uremic signs and symptoms closely. 2. Volume overload. Etiology is secondary to acute heart failure, advanced chronic kidney disease. Continue diuretic therapy. Continue Bumex. Continue metolazone. As stated above, the patient is re fusing dialysis at this time. 3. Anemia. Monitor hemoglobin and hematocrit levels. Continue Epogen. 4. Mineral bone disorder, monitor calcium and phosphorus levels. 5. Atrial fibrillation, currently rate controlled. Continue medical management. 6. Pleural effusion, status post thoracentesis. 7. Diabetes. Continue current insulin regimen. 8. Sepsis. Continue current antibiotic therapy. 9. Morbid obesity. Continue dietary modification. 10. Abdominal distention. Continue to monitor. 11. Gastrointestinal and deep vein thrombosis prophylaxis. Dictated By: LUIS JOSHI/SUNDEEP Conf#: [id number] DID#: [id number]
[2019-02-22 11:32] VITALS: BP 139/63; PULSE 74; RESP 18
--- NOTE | 2019-02-22 12:17 | PN ---
Date/Time of Note Date/Time of Note DATE: 02/22/19 TIME: 12:10 Assessment/Plan VTE Prophylaxis Risk score (from [facility])>0 risk: 1 SCD applied (from [facility]): No SCD contraindicated: other Pharmacological prophylaxis: NA/contraindicated Pharm contraindication: anticoag not tolerated Lines/Catheters IV Catheter Type (from [facility]): Saline Lock Urinary Cath still in place: No Assessment/Plan Assessment/Plan 1. Acute on chronic diastolic heart failure - discussed fluid removal with HD would be the best for him at this time but still refusing to initiate HD while inpatient - continue bumex - ECHO from November shows EF 60% - monitor I/O and daily weights 2. R pleural effusion s/p thoracentesis 02/21/19 - 1100 cc out - fluid cx pending 3. Anemia of chronic disease - patient is followed by Dr. Crawford as outpatient. Receives epogen 40K every sun day - hgb low but given patient already volume overloaded will hold off on tranfusion at this time 4. MARIA DEL CARMEN on CKD - per patient, he is supposed to start peritoneal dialysis in March - Nephrology consultation appreciated 5. Afib - currently rate controlled - will hold anticoagulation in setting of anemia 6. Diabetes Mellitus - A1c noted - adjustments made to insulin and ISS given hypoglycemia episodes 7. Morbid obesity 8. Abdominal distension - CT scan showed diffuse edema and discussed with patient will improve after dialysis initiated - no ascites appreciated 9. Disposition - Will recheck CXR in am to ensure no further thoracentesis needed. Will order PT given patient complaining of feeling off balanced and evaluate need for home O2 Result Diagram: 02/22/19 0541 02/22/19 0541 Results 24hrs Laboratory Tests Test 02/21/19 16:18 02/21/19 17:09 02/21/19 22:11 02/22/19 05:41 Hemoglobin 7.0 L 7.0 L Hematocrit 22.3 L 21.8 L Bedside Glucose 144 128 White Blood Count 7.3 # Red Blood Count 2.68 L Mean Corpuscular 81.3 L Volume Mean Corpuscular 26.1 L Hemoglobin Mean Corpuscular 32.1 Hemoglobin Concent Red Cell 15.1 H Distribution Width Platelet Count 163 Mean Platelet Volume 11.3 H Immature 0.400 Granulocytes % Neutrophils % 73.1 Lymphocytes % 8.0 L Monocytes % 10.9 Eosinophils % 7.2 H Basophils % 0.4 Nucleated Red Blood 0.0 Cells % Immature 0.030 Granulocytes # Neutrophils # 5.3 Lymphocytes # 0.6 L Monocytes # 0.8 Eosinophils # 0.5 Basophils # 0.0 Nucleated Red Blood 0.0 Cells # Sodium Level 140 Potassium Level 4.0 Chloride Level 102 Carbon Dioxide Level 26 Anion Gap 12 Blood Urea Nitrogen 90 H Creatinine 4.41 H Est Glomerular 15 L Filtrat Rate mL/min Glucose Level 132 Calcium Level 8.1 L Magnesium Level 2.8 H Total Bilirubin 0.3 Direct Bilirubin 0.00 Indirect Bilirubin 0.3 Aspartate Amino 16 Transf (AST/SGOT) Alanine 29 Aminotransferase (AL T/SGPT) Alkaline Phosphatase 88 Total Protein 6.2 Albumin 3.6 Globulin 2.60 Albumin/Globulin 1.38 Ratio Test 02/22/19 07:35 02/22/19 11:33 Bedside Glucose 124 161 Subjective 24 Hr Interval Summary Free Text/Dictation Patient states he's still feeling a little better following thoracentesis but concerned he may still have fluid present prior to discharge. Patient still refusing to start HD at this time despite discussion about HD improving his gross anasarca. Exam/Review of Systems Exam Vitals Vital Signs Date Temp Pulse Resp B/P (MAP) Pulse Ox O2 O2 Flow FiO2 Time Delivery Rate 02/22/19 98.1 74 18 139/63 93 11:32 (88) 02/22/19 Nasal 2.0 08:00 Cannula Intake and Output 02/21/19 02/21/19 02/22/19 1515:00 23:00 07:00 IntakeIntake Total 720 ml 560 ml OutputOutput Total 600 ml 600 ml 500 ml BalanceBalance 120 ml -40 ml -500 ml Exam General: no acute distress, obese Chest: Nontender Lungs: Diminished with crackles at the bases bilaterally. no wheezing Heart: Normal S1-S2, Regular rhythm and rate. No murmur, S3, or S4 Abdomen: Firm, nontender, distended, bowel sounds are present. No guarding no rebound tenderness Extremities: swelling of thighs bilaterally but no pitting appreciated. no pedal edema Results Results 24hrs Laboratory Tests Test 02/21/19 16:18 02/21/19 17:09 02/21/19 22:11 02/22/19 05:41 Hemoglobin 7.0 L 7.0 L Hematocrit 22.3 L 21.8 L Bedside Glucose 144 128 White Blood Count 7.3 # Red Blood Count 2.68 L Mean Corpuscular 81.3 L Volume Mean Corpuscular 26.1 L Hemoglobin Mean Corpuscular 32.1 Hemoglobin Concent Red Cell 15.1 H Distribution Width Platelet Count 163 Mean Platelet Volume 11.3 H Immature 0.400 Granulocytes % Neutrophils % 73.1 Lymphocytes % 8.0 L Monocytes % 10.9 Eosinophils % 7.2 H Basophils % 0.4 Nucleated Red Blood 0.0 Cells % Immature 0.030 Granulocytes # Neutrophils # 5.3 Lymphocytes # 0.6 L Monocytes # 0.8 Eosinophils # 0.5 Basophils # 0.0 Nucleated Red Blood 0.0 Cells # Sodium Level 140 Potassium Level 4.0 Chloride Level 102 Carbon Dioxide Level 26 Anion Gap 12 Blood Urea Nitrogen 90 H Creatinine 4.41 H Est Glomerular 15 L Filtrat Rate mL/min Glucose Level 132 Calcium Level 8.1 L Magnesium Level 2.8 H Total Bilirubin 0.3 Direct Bilirubin 0.00 Indirect Bilirubin 0.3 Aspartate Amino 16 Transf (AST/SGOT) Alanine 29 Aminotransferase (AL T/SGPT) Alkaline Phosphatase 88 Total Protein 6.2 Albumin 3.6 Globulin 2.60 Albumin/Globulin 1.38 Ratio Test 02/22/19 07:35 02/22/19 11:33 Bedside Glucose 124 161 Medications Medication Current Medications IV Flush (NS 3 ml) 3 ml PER PROTOCOL IV ; Start 02/18/19 at 01:30 Ondansetron HCl (Zofran Inj) 4 mg Q6H PRN IV NAUSEA/VOMITING; Start 02/18/19 at 01:30 Nitroglycerin (Nitroglycerin (Sl Tab) 0.4 Mg) 1 tab Q5M PRN SL .CHEST PAIN; Start 02/18/19 at 01:30 Acetaminophen (Tylenol Tab) 650 mg Q6H PRN PO .PAIN 1-3 OR TEMP; Start 02/18/19 at 01:30 Docusate Sodium (Colace) 100 mg Q12H PRN PO .CONSTIPATION; Start 02/18/19 at 01:30 Bisacodyl (Dulcolax) 5 mg DAILY PRN PO .CONSTIPATION Last administered on 02/19/19at 13:46; Admin Dose 5 MG; Start 02/18/19 at 01:30 Insulin Aspart (Novolog Insulin Pen) NOVOLOG *MILD* ALGORITHM WITH MEALS BEDTIME SC Last administered on 02/21/19 17:24; Admin Dose 1 UNIT; Start 02/18/19 at 08:00 Atorvastatin Calcium (Lipitor) 80 mg QHS PO Last administered on 02/21/19 22:06; Admin Dose 80 MG; Start 02/18/19 at 21:00 Carvedilol (Coreg) 6.25 mg BID PO Last administered on 02/22/19 08:03; Admin Dose 6.25 MG; Start 02/18/19 at 09:00 Doxazosin Mesylate (Cardura) 4 mg HS PO Last administered on 02/21/19 22:06; Admin Dose 4 MG; Start 02/18/19 at 21:00 EZETIMIBE (Zetia) 10 mg HS PO Last administered on 02/21/19 22:06; Admin Dose 10 MG; Start 02/18/19 at 21:00 Hydralazine HCl (Apresoline) 50 mg Q8H PRN PO SBP >170; Start 02/18/19 at 04:30 Hydralazine HCl (Apresoline) 100 mg TID PO Last administered on 02/22/19 08:02; Admin Dose 100 MG; Start 02/18/19 at 09:00 Isosorbide Mononitrate (Imdur) 60 mg DAILY PO Last administered on 02/22/19 08 :03; Admin Dose 60 MG; Start 02/18/19 at 09:00 Potassium Chloride (Klor-Con 10) 10 meq BID PO Last administered on 02/22/19 08:03; Admin Dose 10 MEQ; Start 02/18/19 at 09:00 Sevelamer Carbonate (Renvela) 0.8 gm WITH MEALS PO Last administered on 02/22/19 08:02; Admin Dose 0.8 GM; Start 02/18/19 at 08:00 Spironolactone (Aldactone) 25 mg DAILY PO Last administered on 02/22/19 08:03; Admin Dose 25 MG; Start 02/18/19 at 09:00 Morphine Sulfate (morphine) 2 mg Q4H PRN IV SEVERE PAIN LEVEL 7-10 Last administered on 02/21/19 22:22; Admin Dose 2 MG; Start 02/18/19 at 05:30 Bumetanide (Bumex) 1 mg BID DIURETICS IV Last administered on 02/22/19at 06:21; Admin Dose 1 MG; Start 02/18/19 at 06:00 Miscellaneous Information 1 ea NOTE XX ; Start 02/18/19 at 06:30 Glucose (Glutose) 15 gm Q15M PRN PO DECREASED GLUCOSE; Start 02/18/19 at 06:30 Glucose (Glutose) 22.5 gm Q15M PRN PO DECREASED GLUCOSE; Start 02/18/19 at 06:30 Dextrose (D50w Syringe) 25 ml Q15M PRN IV DECREASED GLUCOSE; Start 02/18/19 at 06:30 Dextrose (D50w Syringe) 50 ml Q15M PRN IV DECREASED GLUCOSE; Start 02/18/19 at 06:30 Glucagon (Glucagen) 1 mg Q15M PRN IM DECREASED GLUCOSE; Start 02/18/19 at 06:30 Glucose (Glutose) 15 gm Q15M PRN BUCCAL DECREASED GLUCOSE; Start 02/18/19 at 06:30 Nifedipine (Procardia Xl) 60 mg BID PO Last administered on 02/22/19at 08:02; Admin Dose 60 MG; Start 02/18/19 at 21:00 Diphenhydramine HCl (Benadryl) 50 mg Q6H PRN PO ITCHING Last administered on 02/21/19at 02:49; Admin Dose 50 MG; Start 02/19/19 at 00:00 Insulin Aspart (Novolog Insulin Pen) 10 unit WITH MEALS SC Last administered on 02/22/19at 07:46; Admin Dose 10 UNIT; Start 02/20/19 at 12:00 Insulin Glargine (Lantus) 20 units QHS SC Last administered on 02/21/19at 22:19; Admin Dose 20 UNITS; Start 02/20/19 at 21:00 Magnesium Hydroxide (Milk Of Mag) 30 ml BID PRN PO CONSTIPATION Last administered on 02/20/19at 21:42; Admin Dose 30 ML; Start 02/20/19 at 11:30 Epoetin Randolph (Epogen (Esrd)) 40,000 units Fr@1700 SC Last administered on 02/21/19at 16:28; Admin Dose 40,000 UNITS; Start 02/21/19 at 17:00 Ceftriaxone Sodium 50 ml @ 100 mls/hr Q24H IVPB Last administered on 02/21/19at 13:32; Admin Dose 100 MLS/HR; Start 02/20/19 at 14:30 Albuterol/ Ipratropium (Duoneb) 3 ml Q4H RESP THERAPY PRN HHN SHORTNESS OF BREATH Last administered on 02/22/19at 07:57; Admin Dose 3 ML; Start 02/21/19 at 22:00 ZENON CABRERA MD Feb 22, 2019 12:17
--- NOTE | 2019-02-22 14:06 | CONS ---
Consult Date/Type/Reason Admit Date/Time Feb 18, 2019 at 00:37 Initial Consult Date Requesting Provider: DAMON MO Date/Time of Note DATE: 02/22/19 TIME: 14:04 Subjective NO acute events - pt better overall- con't diuresis as tolerated. ROS: No fever, no chills, no nausea, no vomiting, no diarrhea/constipation No recent weight changes No chest pain, no PND, no orthopnea - improved SOB No dizziness, blurred vision No thirst, no heat or cold intolerance Objective Vitals Vital Signs Date Temp Pulse Resp B/P (MAP) Pulse Ox O2 O2 Flow FiO2 Time Delivery Rate 02/22/19 98.1 74 18 139/63 93 11:32 (88) 02/22/19 Nasal 2.0 08:00 Cannula Intake and Output 02/21/19 02/21/19 02/22/19 1515:00 23:00 07:00 IntakeIntake Total 720 ml 560 ml OutputOutput Total 600 ml 600 ml 500 ml BalanceBalance 120 ml -40 ml -500 ml Exam General: WN/WD/NAD, AOx 3 HEENT: Unicetric/atraumatic/EOMI ( follow commands) NECK: JVD elevated, no thyromegaly Lymph: no lymphadenopathy HEART: regular with no S3, II/ systolic murmur at apex, PMI L LUNGS: Coarse sounds ABD: soft, NT, ND, +BS : Intact Neuro: non focal SKIN: chronic changes EXT: ++ edema Results/Medications Result Diagram: 02/22/19 0541 02/22/19 0541 Results 24 hrs Laboratory Tests Test 02/21/19 16:18 02/21/19 17:09 02/21/19 22:11 02/22/19 05:41 Hemoglobin 7.0 L 7.0 L Hematocrit 22.3 L 21.8 L Bedside Glucose 144 128 White Blood Count 7.3 # Red Blood Count 2.68 L Mean Corpuscular 81.3 L Volume Mean Corpuscular 26.1 L Hemoglobin Mean Corpuscular 32.1 Hemoglobin Concent Red Cell 15.1 H Distribution Width Platelet Count 163 Mean Platelet Volume 11.3 H Immature 0.400 Granulocytes % Neutrophils % 73.1 Lymphocytes % 8.0 L Monocytes % 10.9 Eosinophils % 7.2 H Basophils % 0.4 Nucleated Red Blood 0.0 Cells % Immature 0.030 Granulocytes # Neutrophils # 5.3 Lymphocytes # 0.6 L Monocytes # 0.8 Eosinophils # 0.5 Basophils # 0.0 Nucleated Red Blood 0.0 Cells # Sodium Level 140 Potassium Level 4.0 Chloride Level 102 Carbon Dioxide Level 26 Anion Gap 12 Blood Urea Nitrogen 90 H Creatinine 4.41 H Est Glomerular 15 L Filtrat Rate mL/min Glucose Level 132 Calcium Level 8.1 L Magnesium Level 2.8 H Total Bilirubin 0.3 Direct Bilirubin 0.00 Indirect Bilirubin 0.3 Aspartate Amino 16 Transf (AST/SGOT) Alanine 29 Aminotransferase (AL T/SGPT) Alkaline Phosphatase 88 Total Protein 6.2 Albumin 3.6 Globulin 2.60 Albumin/Globulin 1.38 Ratio Test 02/22/19 07:35 02/22/19 11:33 Bedside Glucose 124 161 Home Meds Active Scripts Isosorbide Mononitrate* (Isosorbide Mononitrate*) 60 Mg Tab.er.24h, 60 MG PO DAILY, #30 TAB 2 Refills Prov:TREY MONTEJO 12/19/18 Carvedilol* (Carvedilol*) 6.25 Mg Tablet, 6.25 MG PO BID for 30 Days, #60 TAB 2 Refills Prov:TREY MONTEJO 12/19/18 Sevelamer Carbonate* (Renvela*) 800 Mg Tablet, 800 MG PO WITH MEALS, #60 TAB Prov:DAPHNE GALAN 09/26/18 Doxazosin Mesylate* (Cardura*) 4 Mg Tablet, 4 MG PO HS, #60 TAB Prov:DAPHNE GALAN 09/26/18 Nifedipine* (Nifedipine ER*) 60 Mg Tablet.sa, 60 MG PO BID, #60 TAB.SA Prov:BREANA MORALES NP 05/09/18 Bumetanide* (Bumetanide*) 2 Mg Tablet, 2 MG PO BID, #180 TAB Prov:LOLIS CORWDER MD 05/09/18 Reported Medications Hydralazine Hcl* (Hydralazine Hcl*) 100 Mg Tablet, 100 MG PO TID, #90 TAB 05/07/18 Potassium Chloride* (K-Dur*) 10 Meq Tab.prt.sr, 10 MEQ PO BID, TAB 05/06/18 Hydralazine Hcl* (Hydralazine Hcl*) 50 Mg Tab, 50 MG PO Q8 PRN for ELEVATED BLOOD PRESSURE, #90 TAB 05/06/18 Ezetimibe* (Zetia*) 10 Mg Tablet, 10 MG PO HS, TAB 05/06/18 Apixaban* (Eliquis*) 5 Mg Tablet, 5 MG PO BID, TAB 05/06/18 Spironolactone* (Aldactone*) 25 Mg Tablet, 25 MG PO DAILY, #30 TAB 04/16/18 Cholecalciferol* (Vitamin D3*) 1,000 Unit Tablet, 2000 UNIT PO DAILY, TAB 04/16/18 Insulin Lispro (Humalog Kwikpen U-100) 100 Unit/1 Ml Insuln.pen, 15 UNIT SQ WITH MEALS, EA 04/16/18 Insulin Glargine* (Lantus*) 100 Unit/Ml Soln, 30 UNIT SC QHS, #1 VIAL 02/28/18 Atorvastatin* (Atorvastatin*) 80 Mg Tablet, 80 MG PO QHS, #30 TAB 02/07/18 Medications Current Medications IV Flush (NS 3 ml) 3 ml PER PROTOCOL IV ; Start 02/18/19 at 01:30 Ondansetron HCl (Zofran Inj) 4 mg Q6H PRN IV NAUSEA/VOMITING; Start 02/18/19 at 01:30 Nitroglycerin (Nitroglycerin (Sl Tab) 0.4 Mg) 1 tab Q5M PRN SL .CHEST PAIN; Start 02/18/19 at 01:30 Acetaminophen (Tylenol Tab) 650 mg Q6H PRN PO .PAIN 1-3 OR TEMP; Start 02/18/19 at 01:30 Docusate Sodium (Colace) 100 mg Q12H PRN PO .CONSTIPATION; Start 02/18/19 at 01:30 Bisacodyl (Dulcolax) 5 mg DAILY PRN PO .CONSTIPATION Last administered on 02/19/19at 13:46; Admin Dose 5 MG; Start 02/18/19 at 01:30 Insulin Aspart (Novolog Insulin Pen) NOVOLOG *MILD* ALGORITHM WITH MEALS BEDTIME SC Last administered on 02/22/19at 12:15; Admin Dose 1 UNIT; Start 02/18/19 at 08:00 Atorvastatin Calcium (Lipitor) 80 mg QHS PO Last administered on 02/21/19at 22:06; Admin Dose 80 MG; Start 02/18/19 at 21:00 Carvedilol (Coreg) 6.25 mg BID PO Last administered on 02/22/19 08:03; Admin Dose 6.25 MG; Start 02/18/19 at 09:00 Doxazosin Mesylate (Cardura) 4 mg HS PO Last administered on 02/21/19 22:06; Admin Dose 4 MG; Start 02/18/19 at 21:00 EZETIMIBE (Zetia) 10 mg HS PO Last administered on 02/21/19 22:06; Admin Dose 10 MG; Start 02/18/19 at 21:00 Hydralazine HCl (Apresoline) 50 mg Q8H PRN PO SBP >170; Start 02/18/19 at 04:30 Hydralazine HCl (Apresoline) 100 mg TID PO Last administered on 02/22/19 12:10; Admin Dose 100 MG; Start 02/18/19 at 09:00 Isosorbide Mononitrate (Imdur) 60 mg DAILY PO Last administered on 02/22/19 08:03; Admin Dose 60 MG; Start 02/18/19 at 09:00 Potassium Chloride (Klor-Con 10) 10 meq BID PO Last administered on 02/22/19 08:03; Admin Dose 10 MEQ; Start 02/18/19 at 09:00 Sevelamer Carbonate (Renvela) 0.8 gm WITH MEALS PO Last administered on 02/22/19 12:09; Admin Dose 0.8 GM; Start 02/18/19 at 08:00 Spironolactone (Aldactone) 25 mg DAILY PO Last administered on 02/22/19 08:03; Admin Dose 25 MG; Start 02/18/19 at 09:00 Morphine Sulfate (morphine) 2 mg Q4H PRN IV SEVERE PAIN LEVEL 7-10 Last administered on 02/21/19 22:22; Admin Dose 2 MG; Start 02/18/19 at 05:30 Bumetanide (Bumex) 1 mg BID DIURETICS IV Last administered on 02/22/19 06:21; Admin Dose 1 MG; Start 02/18/19 at 06:00 Miscellaneous Information 1 ea NOTE XX ; Start 02/18/19 at 06:30 Glucose (Glutose) 15 gm Q15M PRN PO DECREASED GLUCOSE; Start 02/18/19 at 06:30 Glucose (Glutose) 22.5 gm Q15M PRN PO DECREASED GLUCOSE; Start 02/18/19 at 06:30 Dextrose (D50w Syringe) 25 ml Q15M PRN IV DECREASED GLUCOSE; Start 02/18/19 at 06:30 Dextrose (D50w Syringe) 50 ml Q15M PRN IV DECREASED GLUCOSE; Start 02/18/19 at 06:30 Glucagon (Glucagen) 1 mg Q15M PRN IM DECREASED GLUCOSE; Start 02/18/19 at 06:30 Glucose (Glutose) 15 gm Q15M PRN BUCCAL DECREASED GLUCOSE; Start 02/18/19 at 06:30 Nifedipine (Procardia Xl) 60 mg BID PO Last administered on 02/22/19 08:02; Admin Dose 60 MG; Start 02/18/19 at 21:00 Diphenhydramine HCl (Benadryl) 50 mg Q6H PRN PO ITCHING Last administered on 02/21/19at 02:49; Admin Dose 50 MG; Start 02/19/19 at 00:00 Insulin Aspart (Novolog Insulin Pen) 10 unit WITH MEALS SC Last administered o n 02/22/19 12:19; Admin Dose 10 UNIT; Start 02/20/19 at 12:00 Insulin Glargine (Lantus) 20 units QHS SC Last administered on 02/21/19 22:19; Admin Dose 20 UNITS; Start 02/20/19 at 21:00 Magnesium Hydroxide (Milk Of Mag) 30 ml BID PRN PO CONSTIPATION Last administered on 02/20/19 21:42; Admin Dose 30 ML; Start 02/20/19 at 11:30 Epoetin Randolph (Epogen (Esrd)) 40,000 units Fr@1700 SC Last administered on 02/21/19 16:28; Admin Dose 40,000 UNITS; Start 02/21/19 at 17:00 Ceftriaxone Sodium 50 ml @ 100 mls/hr Q24H IVPB Last administered on 02/21/19 13:32; Admin Dose 100 MLS/HR; Start 02/20/19 at 14:30 Albuterol/ Ipratropium (Duoneb) 3 ml Q4H RESP THERAPY PRN HHN SHORTNESS OF BREATH Last administered on 6/29/19at 07:57; Admin Dose 3 ML; Start 02/21/19 at 22:00 Assessment/Plan Hospital Course (Demo Recall) 1.CHF-diastolic acute on chronic by echo 12/16/18 revealing EF 60%-neg trop x 3 - con't to remove volume as toletaed - defer HD Rx if needed to renal team, Con't to keep negative. 2.HTN-somewhat labile - con't to monitor now. Improved as fluidstaus improved. 3.chronic kidney disease-not yet on HD - renal follows. 4.H/O PAF on anticoagulation in SR at this time - to be held in a setting of severe anemia - now at 7.0 - primary follows. 5.anemia - no blood tx now 6. Pleural effusion - s/p thoracocentesis - pt feels better DELIA BILLY MD Feb 22, 2019 14:06
[2019-02-22] MEDS: CEFTRIAXONE 1 GM/50 ML (PMX) 50 ML IVPB SCH (14:33)
[2019-02-22 15:02] VITALS: BP 123/58; PULSE 75; RESP 18
--- NOTE | 2019-02-22 17:00 | CONS ---
Consultation Date/Type/Reason Admit Date/Time Feb 18, 2019 at 00:37 Initial Consult Date SUBJECTIVE: Patient is awake, alert, afebrile. No Acute events over night. VS: stable T: 98.5 LABS: Reviewed. WBC- 7.3 CXR 02/21/19: MPRESSION: Status post thoracentesis with no evidence of pneumothorax. Antimicrobials: IV Rocephin Microbiology: Blood cultures on admission 1 set grew Leuconostoc, repeat blood cultures negative Physical examination: GEN: This is well-developed obese middle-aged man, who is alert in no distress. HENT: Head atraumatic normocephalic, sclera nonicteric vehicle mucosa dry, neck is supple PULM: chest rise symmetrical breath sounds diminished bases Heart S1-S2 Abdomen: soft, bowel sounds present Extremities without cyanosis Assessment: 1. Bacteremia consistent with contaminant 2. +/-Pneumonia with bilateral effusions S/P thoracocentesis 02/21/19 3. Acute on chronic kidney disease 4. Obesity Plan: Patient is stable. Continue present care and antibiotics. Pt is declining HD. Fluid cultures and cytology pending. Nephrology and cardiology recommendations Discussed with patient Requesting Provider: DAMON MO Date/Time of Note DATE: 02/22/19 TIME: 16:56 Exam/Review of Systems Exam Vitals Vital Signs Date Temp Pulse Resp B/P (MAP) Pulse Ox O2 O2 Flow FiO2 Time Delivery Rate 02/22/19 98.5 75 18 123/58 97 15:02 (79) 02/22/19 Nasal 2.0 08:00 Cannula Intake and Output 02/21/19 02/21/19 02/22/19 1515:00 23:00 07:00 IntakeIntake Total 720 ml 560 ml OutputOutput Total 600 ml 600 ml 500 ml BalanceBalance 120 ml -40 ml -500 ml Results Result Diagram: 02/22/19 0541 02/22/19 0541 Results 24hrs Laboratory Tests Test 02/21/19 17:09 02/21/19 22:11 02/22/19 05:41 02/22/19 07:35 Bedside Glucose 144 128 124 White Blood Count 7.3 # Red Blood Count 2.68 L Hemoglobin 7.0 L Hematocrit 21.8 L Mean Corpuscular 81.3 L Volume Mean Corpuscular 26.1 L Hemoglobin Mean Corpuscular 32.1 Hemoglobin Concent Red Cell 15.1 H Distribution Width Platelet Count 163 Mean Platelet Volume 11.3 H Immature 0.400 Granulocytes % Neutrophils % 73.1 Lymphocytes % 8.0 L Monocytes % 10.9 Eosinophils % 7.2 H Basophils % 0.4 Nucleated Red Blood 0.0 Cells % Immature 0.030 Granulocytes # Neutrophils # 5.3 Lymphocytes # 0.6 L Monocytes # 0.8 Eosinophils # 0.5 Basophils # 0.0 Nucleated Red Blood 0.0 Cells # Sodium Level 140 Potassium Level 4.0 Chloride Level 102 Carbon Dioxide Level 26 Anion Gap 12 Blood Urea Nitrogen 90 H Creatinine 4.41 H Est Glomerular 15 L Filtrat Rate mL/min Glucose Level 132 Calcium Level 8.1 L Magnesium Level 2.8 H Total Bilirubin 0.3 Direct Bilirubin 0.00 Indirect Bilirubin 0.3 Aspartate Amino 16 Transf (AST/SGOT) Alanine 29 Aminotransferase (AL T/SGPT) Alkaline Phosphatase 88 Total Protein 6.2 Albumin 3.6 Globulin 2.60 Albumin/Globulin 1.38 Ratio Test 02/22/19 11:33 Bedside Glucose 161 Medications Medication Current Medications IV Flush (NS 3 ml) 3 ml PER PROTOCOL IV ; Start 02/18/19 at 01:30 Ondansetron HCl (Zofran Inj) 4 mg Q6H PRN IV NAUSEA/VOMITING; Start 02/18/19 at 01:30 Nitroglycerin (Nitroglycerin (Sl Tab) 0.4 Mg) 1 tab Q5M PRN SL .CHEST PAIN; Start 02/18/19 at 01:30 Acetaminophen (Tylenol Tab) 650 mg Q6H PRN PO .PAIN 1-3 OR TEMP; Start 02/18/19 at 01:30 Docusate Sodium (Colace) 100 mg Q12H PRN PO .CONSTIPATION; Start 02/18/19 at 01:30 Bisacodyl (Dulcolax) 5 mg DAILY PRN PO .CONSTIPATION Last administered on 02/19/19at 13:46; Admin Dose 5 MG; Start 02/18/19 at 01:30 Insulin Aspart (Novolog Insulin Pen) NOVOLOG *MILD* ALGORITHM WITH MEALS BEDTIME SC Last administered on 02/22/19at 12:15; Admin Dose 1 UNIT; Start 02/18/19 at 08:00 Atorvastatin Calcium (Lipitor) 80 mg QHS PO Last administered on 02/21/19 22:06; Admin Dose 80 MG; Start 02/18/19 at 21:00 Carvedilol (Coreg) 6.25 mg BID PO Last administered on 02/22/19 08:03; Admin Dose 6.25 MG; Start 02/18/19 at 09:00 Doxazosin Mesylate (Cardura) 4 mg HS PO Last administered on 02/21/19 22:06; Admin Dose 4 MG; Start 02/18/19 at 21:00 EZETIMIBE (Zetia) 10 mg HS PO Last administered on 02/21/19 22:06; Admin Dose 10 MG; Start 02/18/19 at 21:00 Hydralazine HCl (Apresoline) 50 mg Q8H PRN PO SBP >170; Start 02/18/19 at 04:30 Hydralazine HCl (Apresoline) 100 mg TID PO Last administered on 02/22/19 12 :10; Admin Dose 100 MG; Start 02/18/19 at 09:00 Isosorbide Mononitrate (Imdur) 60 mg DAILY PO Last administered on 02/22/19 08:03; Admin Dose 60 MG; Start 02/18/19 at 09:00 Potassium Chloride (Klor-Con 10) 10 meq BID PO Last administered on 02/22/19 08:03; Admin Dose 10 MEQ; Start 02/18/19 at 09:00 Sevelamer Carbonate (Renvela) 0.8 gm WITH MEALS PO Last administered on 02/22/19 12:09; Admin Dose 0.8 GM; Start 02/18/19 at 08:00 Spironolactone (Aldactone) 25 mg DAILY PO Last administered on 02/22/19 08:03; Admin Dose 25 MG; Start 02/18/19 at 09:00 Morphine Sulfate (morphine) 2 mg Q4H PRN IV SEVERE PAIN LEVEL 7-10 Last administered on 02/21/19 22:22; Admin Dose 2 MG; Start 02/18/19 at 05:30 Bumetanide (Bumex) 1 mg BID DIURETICS IV Last administered on 02/22/19 06:21; Admin Dose 1 MG; Start 02/18/19 at 06:00 Miscellaneous Information 1 ea NOTE XX ; Start 02/18/19 at 06:30 Glucose (Glutose) 15 gm Q15M PRN PO DECREASED GLUCOSE; Start 02/18/19 at 06:30 Glucose (Glutose) 22.5 gm Q15M PRN PO DECREASED GLUCOSE; Start 02/18/19 at 06:30 Dextrose (D50w Syringe) 25 ml Q15M PRN IV DECREASED GLUCOSE; Start 02/18/19 at 06:30 Dextrose (D50w Syringe) 50 ml Q15M PRN IV DECREASED GLUCOSE; Start 02/18/19 at 06:30 Glucagon (Glucagen) 1 mg Q15M PRN IM DECREASED GLUCOSE; Start 02/18/19 at 06:30 Glucose (Glutose) 15 gm Q15M PRN BUCCAL DECREASED GLUCOSE; Start 02/18/19 at 06:30 Nifedipine (Procardia Xl) 60 mg BID PO Last administered on 02/22/19at 08:02; Admin Dose 60 MG; Start 02/18/19 at 21:00 Diphenhydramine HCl (Benadryl) 50 mg Q6H PRN PO ITCHING Last administered on 02/21/19at 02:49; Admin Dose 50 MG; Start 02/19/19 at 00:00 Insulin Aspart (Novolog Insulin Pen) 10 unit WITH MEALS SC Last administered on 02/22/19at 12:19; Admin Dose 10 UNIT; Start 02/20/19 at 12:00 Insulin Glargine (Lantus) 20 units QHS SC Last administered on 02/21/19at 22:19; Admin Dose 20 UNITS; Start 02/20/19 at 21:00 Magnesium Hydroxide (Milk Of Mag) 30 ml BID PRN PO CONSTIPATION Last administer ed on 02/20/19at 21:42; Admin Dose 30 ML; Start 02/20/19 at 11:30 Epoetin Randolph (Epogen (Esrd)) 40,000 units Fr@1700 SC Last administered on 02/21/19at 16:28; Admin Dose 40,000 UNITS; Start 02/21/19 at 17:00 Ceftriaxone Sodium 50 ml @ 100 mls/hr Q24H IVPB Last administered on 02/22/19at 14:33; Admin Dose 100 MLS/HR; Start 02/20/19 at 14:30 Albuterol/ Ipratropium (Duoneb) 3 ml Q4H RESP THERAPY PRN HHN SHORTNESS OF BREATH Last administered on 02/22/19at 07:57; Admin Dose 3 ML; Start 02/21/19 at 22:00 JOSE MANUEL FINNEGAN Feb 22, 2019 17:00
[2019-02-22 20:00] VITALS: BP 147/66; PULSE 76; RESP 22
[2019-02-22] MEDS: DOXAZOSIN 4 MG TAB PO SCH (20:45)
[2019-02-22] MEDS: DIPHENHYDRAMINE 50 MG CAP PO PRN (20:45)
[2019-02-22] MEDS: EZETIMIBE 10 MG TAB PO SCH (20:45)
[2019-02-22] MEDS: ATORVASTATIN 80 MG TAB PO SCH (20:46)
[2019-02-22] MEDS: INSULIN GLARGINE [LANTus] (100 UNITS/ML) SYG SC SCH (21:04)
[2019-02-22] MEDS: morphine 2 MG INJ IV PRN (21:08)
[2019-02-23] VITALS (7 sets, daily range): BP systolic 124–155; BP diastolic 58–80; PULSE 65–97; RESP 18–20
[2019-02-23] MEDS: BUMETANIDE 1 MG INJ IV SCH ×2 (06:00→17:09)
[2019-02-23] MEDS: INSULIN ASPART [NOVOLOG] 3 ML PEN SC SCH ×7 (07:37→20:57)
[2019-02-23] MEDS: POTASSIUM CHLORIDE (SR) 10 MEQ TAB PO SCH ×2 (07:39→20:55)
[2019-02-23] MEDS: SEVELAMER CARBONATE 0.8 GM PKT PO SCH ×3 (07:39→17:09)
[2019-02-23] MEDS: SPIRONOLACTONE 25 MG TAB PO SCH (07:39)
[2019-02-23] MEDS: ISOSORBIDE MONONITRATE(SR)60 MG TAB PO SCH (07:40)
[2019-02-23] MEDS: NIFEdipine (XL) 30 MG TAB PO SCH ×2 (07:40→20:56)
--- NOTE | 2019-02-23 10:32 | PN ---
Date/Time of Note Date/Time of Note DATE: 02/23/19 TIME: 10:25 Assessment/Plan VTE Prophylaxis Risk score (from Ns)>0 risk: 2 SCD applied (from [facility] [place] No SCD contraindicated: other Pharmacological prophylaxis: NA/contraindicated Pharm contraindication: renal impairment, anticoag not tolerated Lines/Catheters IV C[facility]ter Type (from [facility] [place] [facility] Urinary Cath still in place: No Assessment/Plan Assessment/Plan 1. Acute on chronic diastolic heart failure - continue with current diuresis and patient continues to refuse HD even though discussed will most likely make him feel significantly better after excess fluid is removed - continue bumex - ECHO from November shows EF 60% - monitor I/O and daily weights 2. R pleural effusion s/p thoracentesis 02/21/19 - 1100 cc out - fluid cx negative to date - repeat CXR this am is negative for pleural effusions 3. Anemia of chronic disease - patient is followed by Dr. Crawford as outpatient. Receives epogen 40K every sunday - hgb low but given patient already volume overloaded, will defer transfusion to Nephrology recommendations 4. MARIA DEL CARMEN on CKD - per patient, he is supposed to start peritoneal dialysis in March - Nephrology consultation appreciated 5. Afib - currently rate controlled - will hold anticoagulation in setting of anemia 6. Diabetes Mellitus - A1c noted - adjustments made to insulin and ISS given hypoglycemia episodes 7. Morbid obesity 8. Abdominal distension - CT scan showed diffuse edema and discussed with patient will improve after dialysis initiated - no ascites appreciated 9. Disposition - PT evaluation pending and will evaluate need for home O2. Cr keeps increasing and hgb dropping. When stable, okay for d/c home Result Diagram: 02/23/19 0507 02/23/19 0507 Results 24hrs Laboratory Tests Test 02/22/19 11:33 02/22/19 17:02 02/22/19 20:35 02/23/19 05:07 Bedside Glucose 161 103 155 White Blood Count 5.5 # Red Blood Count 2.56 L Hemoglobin 6.7 *L Hematocrit 20.6 L Mean Corpuscular 80.5 L Volume Mean Corpuscular 26.2 L Hemoglobin Mean Corpuscular 32.5 Hemoglobin Concent Red Cell 14.9 H Distribution Width Platelet Count 150 Mean Platelet Volume 11.1 H Immature 0.400 Granulocytes % Neutrophils % 62.9 Lymphocytes % 13.7 L Monocytes % 12.5 H Eosinophils % 10.1 H Basophils % 0.4 Nucleated Red Blood 0.0 Cells % Immature 0.020 Granulocytes # Neutrophils # 3.5 Lymphocytes # 0.8 Monocytes # 0.7 Eosinophils # 0.6 H Basophils # 0.0 Nucleated Red Blood 0.0 Cells # Sodium Level 139 Potassium Level 3.5 Chloride Level 101 Carbon Dioxide Level 26 Anion Gap 12 Blood Urea Nitrogen 100 H Creatinine 4.67 H Est Glomerular 14 L Filtrat Rate mL/min Glucose Level 105 Calcium Level 7.9 L Phosphorus Level 5.3 H Magnesium Level 2.9 H Test 02/23/19 07:24 Bedside Glucose 115 Subjective 24 Hr Interval Summary Free Text/Dictation Patient states he's not feeling very well this am and discussed CXR findings but hgb is low. Exam/Review of Systems Exam Vitals Vital Signs Date Temp Pulse Resp B/P (MAP) Pulse Ox O2 O2 Flow FiO2 Time Delivery Rate 02/23/19 98.3 76 20 143/80 96 Nasal 07:25 (101) Cannula 02/22/19 2.0 20:00 Intake and Output 02/22/19 02/22/19 02/23/19 1515:00 23:00 07:00 IntakeIntake Total 770 ml 1160 ml OutputOutput Total 1125 ml 700 ml BalanceBalance -355 ml 460 ml Exam General: no acute distress, obese Chest: Nontender Lungs: Diminished with crackles at the bases bilaterally. no wheezing Heart: Normal S1-S2, Regular rhythm and rate. No murmur, S3, or S4 Abdomen: Firm, nontender, distended, bowel sounds are present. No guarding no rebound tenderness Extremities: swelling of thighs bilaterally but no pitting appreciated. no pedal edema Results Results 24hrs Laboratory Tests Test 02/22/19 11:33 02/22/19 17:02 02/22/19 20:35 02/23/19 05:07 Bedside Glucose 161 103 155 White Blood Count 5.5 # Red Blood Count 2.56 L Hemoglobin 6.7 *L Hematocrit 20.6 L Mean Corpuscular 80.5 L Volume Mean Corpuscular 26.2 L Hemoglobin Mean Corpuscular 32.5 Hemoglobin Concent Red Cell 14.9 H Distribution Width Platelet Count 150 Mean Platelet Volume 11.1 H Immature 0.400 Granulocytes % Neutrophils % 62.9 Lymphocytes % 13.7 L Monocytes % 12.5 H Eosinophils % 10.1 H Basophils % 0.4 Nucleated Red Blood 0.0 Cells % Immature 0.020 Granulocytes # Neutrophils # 3.5 Lymphocytes # 0.8 Monocytes # 0.7 Eosinophils # 0.6 H Basophils # 0.0 Nucleated Red Blood 0.0 Cells # Sodium Level 139 Potassium Level 3.5 Chloride Level 101 Carbon Dioxide Level 26 Anion Gap 12 Blood Urea Nitrogen 100 H Creatinine 4.67 H Est Glomerular 14 L Filtrat Rate mL/min Glucose Level 105 Calcium Level 7.9 L Phosphorus Level 5.3 H Magnesium Level 2.9 H Test 02/23/19 07:24 Bedside Glucose 115 Medications Medication Current Medications IV Flush (NS 3 ml) 3 ml PER PROTOCOL IV ; Start 02/18/19 at 01:30 Ondansetron HCl (Zofran Inj) 4 mg Q6H PRN IV NAUSEA/VOMITING; Start 02/18/19 at 01:30 Nitroglycerin (Nitroglycerin (Sl Tab) 0.4 Mg) 1 tab Q5M PRN SL .CHEST PAIN; Start 02/18/19 at 01:30 Acetaminophen (Tylenol Tab) 650 mg Q6H PRN PO .PAIN 1-3 OR TEMP; Start 02/18/19 at 01:30 Docusate Sodium (Colace) 100 mg Q12H PRN PO .CONSTIPATION; Start 02/18/19 at 01:30 Bisacodyl (Dulcolax) 5 mg DAILY PRN PO .CONSTIPATION Last administered on 02/19/19at 13:46; Admin Dose 5 MG; Start 02/18/19 at 01:30 Insulin Aspart (Novolog Insulin Pen) NOVOLOG *MILD* ALGORITHM WITH MEALS BEDTIME SC Last administered on 02/22/19 12:15; Admin Dose 1 UNIT; Start 02/18/19 at 08:00 Atorvastatin Calcium (Lipitor) 80 mg QHS PO Last administered on 02/22/19 20:46; Admin Dose 80 MG; Start 02/18/19 at 21:00 Carvedilol (Coreg) 6.25 mg BID PO Last administered on 02/23/19 07:42; Admin Dose 6.25 MG; Start 02/18/19 at 09:00 Doxazosin Mesylate (Cardura) 4 mg HS PO Last administered on 02/22/19 20:45; Admin Dose 4 MG; Start 02/18/19 at 21:00 EZETIMIBE (Zetia) 10 mg HS PO Last administered on 02/22/19 20:45; Admin Dose 10 MG; Start 02/18/19 at 21:00 Hydralazine HCl (Apresoline) 50 mg Q8H PRN PO SBP >170; Start 02/18/19 at 04:30 Hydralazine HCl (Apresoline) 100 mg TID PO Last administered on 02/23/19 07:41; Admin Dose 100 MG; Start 02/18/19 at 09:00 Isosorbide Mononitrate (Imdur) 60 mg DAILY PO Last administered on 02/23/19 07:40; Admin Dose 60 MG; Start 02/18/19 at 09:00 Potassium Chloride (Klor-Con 10) 10 meq BID PO Last administered on 02/23/19 07:39; Admin Dose 10 MEQ; Start 02/18/19 at 09:00 Sevelamer Carbonate (Renvela) 0.8 gm WITH MEALS PO Last administered on 02/23/19 07:39; Admin Dose 0.8 GM; Start 02/18/19 at 08:00 Spironolactone (Aldactone) 25 mg DAILY PO Last administered on 02/23/19 07:39; Admin Dose 25 MG; Start 02/18/19 at 09:00 Morphine Sulfate (morphine) 2 mg Q4H PRN IV SEVERE PAIN LEVEL 7-10 Last administered on 02/22/19 21:08; Admin Dose 2 MG; Start 02/18/19 at 05:30 Bumetanide (Bumex) 1 mg BID DIURETICS IV Last administered on 02/23/19 06:00; Admin Dose 1 MG; Start 02/18/19 at 06:00 Miscellaneous Information 1 ea NOTE XX ; Start 02/18/19 at 06:30 Glucose (Glutose) 15 gm Q15M PRN PO DECREASED GLUCOSE; Start 02/18/19 at 06:30 Glucose (Glutose) 22.5 gm Q15M PRN PO DECREASED GLUCOSE; Start 02/18/19 at 06:30 Dextrose (D50w Syringe) 25 ml Q15M PRN IV DECREASED GLUCOSE; Start 02/18/19 at 06:30 Dextrose (D50w Syringe) 50 ml Q15M PRN IV DECREASED GLUCOSE; Start 02/18/19 at 06:30 Glucagon (Glucagen) 1 mg Q15M PRN IM DECREASED GLUCOSE; Start 02/18/19 at 06:30 Glucose (Glutose) 15 gm Q15M PRN BUCCAL DECREASED GLUCOSE; Start 02/18/19 at 06:30 Nifedipine (Procardia Xl) 60 mg BID PO Last administered on 02/23/19 07:40; Admin Dose 60 MG; Start 02/18/19 at 21:00 Diphenhydramine HCl (Benadryl) 50 mg Q6H PRN PO ITCHING Last administered on 02/22/19 20:45; Admin Dose 50 MG; Start 02/19/19 at 00:00 Insulin Aspart (Novolog Insulin Pen) 10 unit WITH MEALS SC Last administered on 02/23/19 07:37; Admin Dose 10 UNIT; Start 02/20/19 at 12:00 Insulin Glargine (Lantus) 20 units QHS SC Last administered on 02/22/19 21:04; Admin Dose 20 UNITS; Start 02/20/19 at 21:00 Magnesium Hydroxide (Milk Of Mag) 30 ml BID PRN PO CONSTIPATION Last ad ministered on 02/20/19 21:42; Admin Dose 30 ML; Start 02/20/19 at 11:30 Epoetin Randolph (Epogen (Esrd)) 40,000 units Fr@1700 SC Last administered on 02/21/19 16:28; Admin Dose 40,000 UNITS; Start 02/21/19 at 17:00 Ceftriaxone Sodium 50 ml @ 100 mls/hr Q24H IVPB Last administered on 02/22/19 14:33; Admin Dose 100 MLS/HR; Start 02/20/19 at 14:30 Albuterol/ Ipratropium (Duoneb) 3 ml Q4H RESP THERAPY PRN HHN SHORTNESS OF BREATH Last administered on 02/22/19 07:57; Admin Dose 3 ML; Start 02/21/19 at 22:00 ZENON CABRERA MD Feb 23, 2019 10:32
--- NOTE | 2019-02-23 10:34 | PN ---
DATE: 02/23/2019 SUBJECTIVE: The patient continues to have some mild shortness of breath. Edema is notably present. I spoke again with the patient about the possibility of initiating hemodialysis. The patient is rel uctant unless absolutely necessary. No other events noted. OBJECTIVE: VITAL SIGNS: Blood pressure is 143/80, respirations 20, pulse 76, temperature 98.3. HEENT: Head is normocephalic. NECK: Supple. HEART: Regular rate. LUNGS: Show diminished breath sounds at the base. ABDOMEN: Soft, nontender to palpation without rebound or guarding. EXTREMITIES: Negative for clubbing, cyanosis. Positive edema. DERMATOLOGIC: No rashes. MUSCULOSKELETAL: No joint effusion. NEUROLOGIC: No change in exam. MEDICATIONS: The patient's medications have been reviewed. LABORATORY DATA: Reviewed. IMAGING STUDIES: Reviewed. ASSESSMENT AND PLAN: 1. Nonoliguric acute kidney injury on top of chronic kidney disease stage IV. Etiology of current a cute kidney injury is secondary to hemodynamics, diuretic therapy, possible component of cardiorenal syndrome. The patient currently remains in injury phase as renal function continues to decline. I a june spoke with the patient about the possibility of initiating dialysis. At this point, he does not wish to start. We will therefore continue current treatment plans, supportive care, renally dose al l medications. Continue diuretic therapy. 3. Volume overload. Etiology is secondary to advanced chronic kidney disease, possible component f diastolic heart failure. Continue Bumex. We will continue metolazone, monitor renal function closel y. We will consider a Bumex drip. 4. Anemia. Continue to monitor hemoglobin and hematocrit levels. Continue Epogen. 5. Mineral bone disorder, monitor calcium and phosphorus levels. 6. Atrial fibrillation, rate controlled. Continue medical management. 7. Pleural effusion, status post thoracentesis. 8. Diabetes. Continue current insulin regimen. 9. Sepsis. Continue current antibiotic therapy. 10. Morbid obesity. 11. Gastrointestinal and deep vein thrombosis prophylaxis. Dictated By: LUIS DICKINSON DO NR/NTS Conf#: [id number] DID#: [id number] CC: ZENON CABRERA MD; DAMON MO MD;*EndCC*
--- NOTE | 2019-02-23 12:28 | CONS ---
Consultation Date/Type/Reason Admit Date/Time Feb 18, 2019 at 00:37 Initial Consult Date SUBJECTIVE: Patient is alert, afebrile. No Acute events over night. VS: stable T: 97.9 LABS: Reviewed. Hgb decreasing= 6.7 HTZ=468/ Cr= 4.67 -Increasing CXR 02/21/19: MPRESSION: Status post thoracentesis with no evidence of pneumothorax. Antimicrobials: IV Rocephin Microbiology: Blood cultures on admission 1 set grew [place], repeat blood cultures negative Physical examination: GEN: This is well-developed obese middle-aged man, who is alert in no distress. HENT: Head atraumatic normocephalic, sclera nonicteric vehicle mucosa dry, neck is supple PULM: chest rise symmetrical breath sounds diminished bases Heart S1-S2 Abdomen: soft, bowel sounds present Extremities without cyanosis Assessment: 1. Bacteremia consistent with contaminant 2. +/-Pneumonia with bilateral effusions S/P thoracocentesis 02/21/19 3. Acute on chronic kidney failure 4. Obesity 5. Severe anemia Plan: Patient is stable. Continue present care and antibiotics. Pt is declining HD. Fluid cultures and cytology pending. Nephrology and cardiology recommendati ons Requesting Provider: DAMON MO Date/Time of Note DATE: 02/23/19 TIME: 12:25 Exam/Review of Systems Exam Vitals Vital Signs Date Temp Pulse Resp B/P (MAP) Pulse Ox O2 O2 Flow FiO2 Time Delivery Rate 02/23/19 97.9 66 20 128/65 96 Nasal 11:17 (86) Cannula 02/23/19 2.0 08:00 Intake and Output 02/22/19 02/22/19 02/23/19 1515:00 23:00 07:00 IntakeIntake Total 770 ml 1160 ml OutputOutput Total 1125 ml 700 ml BalanceBalance -355 ml 460 ml Results Result Diagram: 02/23/19 0507 02/23/19 0507 Results 24hrs Laboratory Tests Test 02/22/19 17:02 02/22/19 20:35 02/23/19 05:07 02/23/19 07:24 Bedside Glucose 103 155 115 White Blood Count 5.5 # Red Blood Count 2.56 L Hemoglobin 6.7 *L Hematocrit 20.6 L Mean Corpuscular 80.5 L Volume Mean Corpuscular 26.2 L Hemoglobin Mean Corpuscular 32.5 Hemoglobin Concent Red Cell 14.9 H Distribution Width Platelet Count 150 Mean Platelet Volume 11.1 H Immature 0.400 Granulocytes % Neutrophils % 62.9 Lymphocytes % 13.7 L Monocytes % 12.5 H Eosinophils % 10.1 H Basophils % 0.4 Nucleated Red Blood 0.0 Cells % Immature 0.020 Granulocytes # Neutrophils # 3.5 Lymphocytes # 0.8 Monocytes # 0.7 Eosinophils # 0.6 H Basophils # 0.0 Nucleated Red Blood 0.0 Cells # Sodium Level 139 Potassium Level 3.5 Chloride Level 101 Carbon Dioxide Level 26 Anion Gap 12 Blood Urea Nitrogen 100 H Creatinine 4.67 H Est Glomerular 14 L Filtrat Rate mL/min Glucose Level 105 Calcium Level 7.9 L Phosphorus Level 5.3 H Magnesium Level 2.9 H Test 02/23/19 11:46 Bedside Glucose 124 Medications Medication Current Medications IV Flush (NS 3 ml) 3 ml PER PROTOCOL IV ; Start 02/18/19 at 01:30 Ondansetron HCl (Zofran Inj) 4 mg Q6H PRN IV NAUSEA/VOMITING; Start 02/18/19 at 01:30 Nitroglycerin (Nitroglycerin (Sl Tab) 0.4 Mg) 1 tab Q5M PRN SL .CHEST PAIN; Start 02/18/19 at 01:30 Acetaminophen (Tylenol Tab) 650 mg Q6H PRN PO .PAIN 1-3 OR TEMP; Start 02/18/19 at 01:30 Docusate Sodium (Colace) 100 mg Q12H PRN PO .CONSTIPATION; Start 02/18/19 at 0 1:30 Bisacodyl (Dulcolax) 5 mg DAILY PRN PO .CONSTIPATION Last administered on 02/19/19at 13:46; Admin Dose 5 MG; Start 02/18/19 at 01:30 Insulin Aspart (Novolog Insulin Pen) NOVOLOG *MILD* ALGORITHM WITH MEALS BEDTIME SC Last administered on 02/22/19at 12:15; Admin Dose 1 UNIT; Start 02/18/19 at 08:00 Atorvastatin Calcium (Lipitor) 80 mg QHS PO Last administered on 02/22/19at 20:46; Admin Dose 80 MG; Start 02/18/19 at 21:00 Carvedilol (Coreg) 6.25 mg BID PO Last administered on 02/23/19 07:42; Admin Dose 6.25 MG; Start 02/18/19 at 09:00 Doxazosin Mesylate (Cardura) 4 mg HS PO Last administered on 02/22/19 20:45; Admin Dose 4 MG; Start 02/18/19 at 21:00 EZETIMIBE (Zetia) 10 mg HS PO Last administered on 02/22/19 20:45; Admin Dose 10 MG; Start 02/18/19 at 21:00 Hydralazine HCl (Apresoline) 50 mg Q8H PRN PO SBP >170; Start 02/18/19 at 04:30 Hydralazine HCl (Apresoline) 100 mg TID PO Last administered on 02/23/19 07:41; Admin Dose 100 MG; Start 02/18/19 at 09:00 Isosorbide Mononitrate (Imdur) 60 mg DAILY PO Last administered on 02/23/19 07:40; Admin Dose 60 MG; Start 02/18/19 at 09:00 Potassium Chloride (Klor-Con 10) 10 meq BID PO Last administered on 02/23/19 07:39; Admin Dose 10 MEQ; Start 02/18/19 at 09:00 Sevelamer Carbonate (Renvela) 0.8 gm WITH MEALS PO Last administered on 02/23/19 11:47; Admin Dose 0.8 GM; Start 02/18/19 at 08:00 Spironolactone (Aldactone) 25 mg DAILY PO Last administered on 02/23/19 07:39; Admin Dose 25 MG; Start 02/18/19 at 09:00 Morphine Sulfate (morphine) 2 mg Q4H PRN IV SEVERE PAIN LEVEL 7-10 Last administered on 02/22/19 21:08; Admin Dose 2 MG; Start 02/18/19 at 05:30 Bumetanide (Bumex) 1 mg BID DIURETICS IV Last administered on 02/23/19 06:00; Admin Dose 1 MG; Start 02/18/19 at 06:00 Miscellaneous Information 1 ea NOTE XX ; Start 02/18/19 at 06:30 Glucose (Glutose) 15 gm Q15M PRN PO DECREASED GLUCOSE; Start 02/18/19 at 06:30 Glucose (Glutose) 22.5 gm Q15M PRN PO DECREASED GLUCOSE; Start 02/18/19 at 06:30 Dextrose (D50w Syringe) 25 ml Q15M PRN IV DECREASED GLUCOSE; Start 02/18/19 at 06:30 Dextrose (D50w Syringe) 50 ml Q15M PRN IV DECREASED GLUCOSE; Start 02/18/19 at 06:30 Glucagon (Glucagen) 1 mg Q15M PRN IM DECREASED GLUCOSE; Start 02/18/19 at 06:30 Glucose (Glutose) 15 gm Q15M PRN BUCCAL DECREASED GLUCOSE; Start 02/18/19 at 06:30 Nifedipine (Procardia Xl) 60 mg BID PO Last administered on 02/23/19 07:40; Admin Dose 60 MG; Start 02/18/19 at 21:00 Diphenhydramine HCl (Benadryl) 50 mg Q6H PRN PO ITCHING Last administered on 02/22/19 20:45; Admin Dose 50 MG; Start 02/19/19 at 00:00 Insulin Aspart (Novolog Insulin Pen) 10 unit WITH MEALS SC Last administered on 02/23/19 11:59; Admin Dose 10 UNIT; Start 02/20/19 at 12:00 Insulin Glargine (Lantus) 20 units QHS SC Last administered on 02/22/19 21:04; Admin Dose 20 UNITS; Start 02/20/19 at 21:00 Magnesium Hydroxide (Milk Of Mag) 30 ml BID PRN PO CONSTIPATION Last administered on 02/20/19 21:42; Admin Dose 30 ML; Start 02/20/19 at 11:30 Epoetin [place] (Epogen (Esrd)) 40,000 units Fr@1700 SC Last administered on 02/21/19 16:28; Admin Dose 40,000 UNITS; Start 02/21/19 at 17:00 Ceftriaxone Sodium 50 ml @ 100 mls/hr Q24H IVPB Last administered on 02/22/19 14:33; Admin Dose 100 MLS/HR; Start 02/20/19 at 14:30 Albuterol/ Ipratropium (Duoneb) 3 ml Q4H RESP THERAPY PRN HHN SHORTNESS OF BREATH Last administered on 02/22/19 07:57; Admin Dose 3 ML; Start 02/21/19 at 22:00 JOSE MANUEL FINNEGAN Feb 23, 2019 12:28
--- NOTE | 2019-02-23 13:33 | CONS ---
Consult Date/Type/Reason Admit Date/Time Feb 18, 2019 at 00:37 Initial Consult Date Requesting Provider: DAMON MO Date/Time of Note DATE: 02/23/19 TIME: 13:26 Subjective NO acute events - con't diuresis - no ectopy on tele. ROS: No fever, no chills, no nausea, no vomiting, no diarrhea/constipation No recent weight changes No chest pain, no PND, no orthopnea - improved SOB No dizziness, blurred vision No thirst, no heat or cold intolerance Objective Vitals Vital Signs Date Temp Pulse Resp B/P (MAP) Pulse Ox O2 O2 Flow FiO2 Time Delivery Rate 02/23/19 97.9 66 20 128/65 96 Nasal 11:17 (86) Cannula 02/23/19 2.0 08:00 Intake and Output 02/22/19 02/22/19 02/23/19 1515:00 23:00 07:00 IntakeIntake Total 770 ml 1160 ml OutputOutput Total 1125 ml 700 ml BalanceBalance -355 ml 460 ml Exam General: WN/WD/NAD, AOx 2 HEENT: Unicetric/atraumatic/EOMI ( follows commands) NECK: JVD elevated, no thyromegaly Lymph: no lymphadenopathy HEART: regular with no S3, II/ systolic murmur at apex, PMI L LUNGS: Coarse sounds ABD: soft, NT, ND, +BS : Intact Neuro: non focal SKIN: chronic changes EXT: trace edema Results/Medications Result Diagram: 02/23/19 1221 02/23/19 0507 Results 24 hrs Laboratory Tests Test 02/22/19 17:02 02/22/19 20:35 02/23/19 05:07 02/23/19 07:24 Bedside Glucose 103 155 115 White Blood Count 5.5 # Red Blood Count 2.56 L Hemoglobin 6.7 *L Hematocrit 20.6 L Mean Corpuscular 80.5 L Volume Mean Corpuscular 26.2 L Hemoglobin Mean Corpuscular 32.5 Hemoglobin Concent Red Cell 14.9 H Distribution Width Platelet Count 150 Mean Platelet Volume 11.1 H Immature 0.400 Granulocytes % Neutrophils % 62.9 Lymphocytes % 13.7 L Monocytes % 12.5 H Eosinophils % 10.1 H Basophils % 0.4 Nucleated Red Blood 0.0 Cells % Immature 0.020 Granulocytes # Neutrophils # 3.5 Lymphocytes # 0.8 Monocytes # 0.7 Eosinophils # 0.6 H Basophils # 0.0 Nucleated Red Blood 0.0 Cells # Sodium Level 139 Potassium Level 3.5 Chloride Level 101 Carbon Dioxide Level 26 Anion Gap 12 Blood Urea Nitrogen 100 H Creatinine 4.67 H Est Glomerular 14 L Filtrat Rate mL/min Glucose Level 105 Calcium Level 7.9 L Phosphorus Level 5.3 H Magnesium Level 2.9 H Test 02/23/19 11:46 02/23/19 12:21 Bedside Glucose 124 White Blood Count 5.7 Red Blood Count 2.75 L Hemoglobin 7.0 L Hematocrit 21.9 L Mean Corpuscular 79.6 L Volume Mean Corpuscular 25.5 L Hemoglobin Mean Corpuscular 32.0 Hemoglobin Concent Red Cell 14.9 H Distribution Width Platelet Count 150 Mean Platelet Volume 10.9 H Immature 0.200 Granulocytes % Neutrophils % 66.3 Lymphocytes % 11.5 L Monocytes % 12.2 H Eosinophils % 9.3 H Basophils % 0.5 Nucleated Red Blood 0.0 Cells % Immature 0.010 Granulocytes # Neutrophils # 3.8 Lymphocytes # 0.7 L Monocytes # 0.7 Eosinophils # 0.5 Basophils # 0.0 Nucleated Red Blood 0.0 Cells # Iron Level 35 Total Iron Binding 290 Capacity Percent Iron 12 L Saturation Home Meds Active Scripts Isosorbide Mononitrate* (Isosorbide Mononitrate*) 60 Mg Tab.er.24h, 60 MG PO DAILY, #30 TAB 2 Refills Prov:TREY MONTEJO 12/19/18 Carvedilol* (Carvedilol*) 6.25 Mg Tablet, 6.25 MG PO BID for 30 Days, #60 TAB 2 Refills Prov:TREY MONTEJO 12/19/18 Sevelamer Carbonate* (Renvela*) 800 Mg Tablet, 800 MG PO WITH MEALS, #60 TAB Prov:DAPHNE GALAN 09/26/18 Doxazosin Mesylate* (Cardura*) 4 Mg Tablet, 4 MG PO HS, #60 TAB Prov:DAPHNE GALAN 09/26/18 Nifedipine* (Nifedipine ER*) 60 Mg Tablet.sa, 60 MG PO BID, #60 TAB.SA Prov:BREANA MORALES NP 05/09/18 Bumetanide* (Bumetanide*) 2 Mg Tablet, 2 MG PO BID, #180 TAB Prov:LOLIS CROWDER MD 05/09/18 Reported Medications Hydralazine Hcl* (Hydralazine Hcl*) 100 Mg Tablet, 100 MG PO TID, #90 TAB 05/07/18 Potassium Chloride* (K-Dur*) 10 Meq Tab.prt.sr, 10 MEQ PO BID, TAB 05/06/18 Hydralazine Hcl* (Hydralazine Hcl*) 50 Mg Tab, 50 MG PO Q8 PRN for ELEVATED BLOOD PRESSURE, #90 TAB 05/06/18 Ezetimibe* (Zetia*) 10 Mg Tablet, 10 MG PO HS, TAB 05/06/18 Apixaban* (Eliquis*) 5 Mg Tablet, 5 MG PO BID, TAB 05/06/18 Spironolactone* (Aldactone*) 25 Mg Tablet, 25 MG PO DAILY, #30 TAB 04/16/18 Cholecalciferol* (Vitamin D3*) 1,000 Unit Tablet, 2000 UNIT PO DAILY, TAB 04/16/18 Insulin Lispro (Humalog Kwikpen U-100) 100 Unit/1 Ml Insuln.pen, 15 UNIT SQ WITH MEALS, EA 04/16/18 Insulin Glargine* (Lantus*) 100 Unit/Ml Soln, 30 UNIT SC QHS, #1 VIAL 02/28/18 Atorvastatin* (Atorvastatin*) 80 Mg Tablet, 80 MG PO QHS, #30 TAB 02/07/18 Medications Current Medications IV Flush (NS 3 ml) 3 ml PER PROTOCOL IV ; Start 02/18/19 at 01:30 Ondansetron HCl (Zofran Inj) 4 mg Q6H PRN IV NAUSEA/VOMITING; Start 02/18/19 at 01:30 Nitroglycerin (Nitroglycerin (Sl Tab) 0.4 Mg) 1 tab Q5M PRN SL .CHEST PAIN; Start 02/18/19 at 01:30 Acetaminophen (Tylenol Tab) 650 mg Q6H PRN PO .PAIN 1-3 OR TEMP; Start 02/18/19 at 01:30 Docusate Sodium (Colace) 100 mg Q12H PRN PO .CONSTIPATION; Start 02/18/19 at 01:30 Bisacodyl (Dulcolax) 5 mg DAILY PRN PO .CONSTIPATION Last administered on 02/19/19 13:46; Admin Dose 5 MG; Start 02/18/19 at 01:30 Insulin Aspart (Novolog Insulin Pen) NOVOLOG *MILD* ALGORITHM WITH MEALS BEDTIME SC Last administered on 02/22/19 12:15; Admin Dose 1 UNIT; Start 02/18/19 at 08:00 Atorvastatin Calcium (Lipitor) 80 mg QHS PO Last administered on 02/22/19 20:46; Admin Dose 80 MG; Start 02/18/19 at 21:00 Carvedilol (Coreg) 6.25 mg BID PO Last administered on 02/23/19 07:42; Admin Dose 6.25 MG; Start 02/18/19 at 09:00 Doxazosin Mesylate (Cardura) 4 mg HS PO Last administered on 02/22/19 20:45; Admin Dose 4 MG; Start 02/18/19 at 21:00 EZETIMIBE (Zetia) 10 mg HS PO Last administered on 02/22/19 20:45; Admin Dose 10 MG; Start 02/18/19 at 21:00 Hydralazine HCl (Apresoline) 50 mg Q8H PRN PO SBP >170; Start 02/18/19 at 04:30 Hydralazine HCl (Apresoline) 100 mg TID PO Last administered on 02/23/19 07:41; Admin Dose 100 MG; Start 02/18/19 at 09:00 Isosorbide Mononitrate (Imdur) 60 mg DAILY PO Last administered on 02/23/19 07:40; Admin Dose 60 MG; Start 02/18/19 at 09:00 Potassium Chloride (Klor-Con 10) 10 meq BID PO Last administered on 02/23/19 07:39; Admin Dose 10 MEQ; Start 02/18/19 at 09:00 Sevelamer Carbonate (Renvela) 0.8 gm WITH MEALS PO Last administered on 02/23/19 11:47; Admin Dose 0.8 GM; Start 02/18/19 at 08:00 Spironolactone (Aldactone) 25 mg DAILY PO Last administered on 02/23/19 07:39; Admin Dose 25 MG; Start 02/18/19 at 09:00 Morphine Sulfate (morphine) 2 mg Q4H PRN IV SEVERE PAIN LEVEL 7-10 Last administered on 02/22/19 21:08; Admin Dose 2 MG; Start 02/18/19 at 05:30 Bumetanide (Bumex) 1 mg BID DIURETICS IV Last administered on 02/23/19 06:00; Admin Dose 1 MG; Start 02/18/19 at 06:00 Miscellaneous Information 1 ea NOTE XX ; Start 02/18/19 at 06:30 Glucose (Glutose) 15 gm Q15M PRN PO DECREASED GLUCOSE; Start 02/18/19 at 06:30 Glucose (Glutose) 22.5 gm Q15M PRN PO DECREASED GLUCOSE; Start 02/18/19 at 06:30 Dextrose (D50w Syringe) 25 ml Q15M PRN IV DECREASED GLUCOSE; Start 02/18/19 at 06:30 Dextrose (D50w Syringe) 50 ml Q15M PRN IV DECREASED GLUCOSE; Start 02/18/19 at 06:30 Glucagon (Glucagen) 1 mg Q15M PRN IM DECREASED GLUCOSE; Start 02/18/19 at 06:30 Glucose (Glutose) 15 gm Q15M PRN BUCCAL DECREASED GLUCOSE; Start 02/18/19 at 06:30 Nifedipine (Procardia Xl) 60 mg BID PO Last administered on 02/23/19 07:40; Admin Dose 60 MG; Start 02/18/19 at 21:00 Diphenhydramine HCl (Benadryl) 50 mg Q6H PRN PO ITCHING Last administered on 02/22/19at 20:45; Admin Dose 50 MG; Start 02/19/19 at 00:00 Insulin Aspart (Novolog Insulin Pen) 10 unit WITH MEALS SC Last administered on 02/23/19 11:59; Admin Dose 10 UNIT; Start 02/20/19 at 12:00 Insulin Glargine (Lantus) 20 units QHS SC Last administered on 02/22/19 21:04; Admin Dose 20 UNITS; Start 02/20/19 at 21:00 Magnesium Hydroxide (Milk Of Mag) 30 ml BID PRN PO CONSTIPATION Last administered on 02/20/19 21:42; Admin Dose 30 ML; Start 02/20/19 at 11:30 Epoetin [place] (Epogen (Esrd)) 40,000 units Fr@1700 SC Last administered on 6/28/19at 16:28; Admin Dose 40,000 UNITS; Start 02/21/19 at 17:00 Ceftriaxone Sodium 50 ml @ 100 mls/hr Q24H IVPB Last administered on 02/22/19at 14:33; Admin Dose 100 MLS/HR; Start 02/20/19 at 14:30 Albuterol/ Ipratropium (Duoneb) 3 ml Q4H RESP THERAPY PRN HHN SHORTNESS OF BREATH Last administered on 02/22/19at 07:57; Admin Dose 3 ML; Start 02/21/19 at 22:00 Assessment/Plan Hospital Course (Demo Recall) 1.CHF-diastolic acute on chronic by echo 12/16/18 revealing EF 60%-neg trop x 3 - con't to remove volume as toletaed - defer HD Rx if needed to renal team, Con't to keep negative. Improved now. 2.HTN - somewhat labile - con't to monitor now. Improved as fluid status improved. BP in good range. 3.chronic kidney disease-not yet on HD - renal follows. 4.H/O PAF on anticoagulation in SR at this time - to be held in a setting of severe anemia - now at 7.0 - primary follows. 5. Anemia - no blood tx now - no bleeding. 6. Pleural effusion - s/p thoracocentesis - pt feels better DELIA BILLY MD Feb 23, 2019 13:33
[2019-02-23] MEDS: CEFTRIAXONE 1 GM/50 ML (PMX) 50 ML IVPB SCH (13:45)
[2019-02-23] MEDS: EZETIMIBE 10 MG TAB PO SCH (20:55)
[2019-02-23] MEDS: ATORVASTATIN 80 MG TAB PO SCH (20:56)
[2019-02-23] MEDS: DOXAZOSIN 4 MG TAB PO SCH (20:57)
[2019-02-23] MEDS: INSULIN GLARGINE [LANTus] (100 UNITS/ML) SYG SC SCH (21:02)
[2019-02-24 03:29] VITALS: BP 141/68; PULSE 67; RESP 21
[2019-02-24] MEDS: BUMETANIDE 1 MG INJ IV SCH ×2 (05:16→17:15)
[2019-02-24] MEDS: SEVELAMER CARBONATE 0.8 GM PKT PO SCH ×3 (07:39→17:15)
[2019-02-24] MEDS: INSULIN ASPART [NOVOLOG] 3 ML PEN SC SCH ×7 (07:49→21:00)
[2019-02-24 08:17] VITALS: BP 152/71; PULSE 75; RESP 16
[2019-02-24] MEDS: NIFEdipine (XL) 30 MG TAB PO SCH ×2 (08:44→21:41)
[2019-02-24] MEDS: POTASSIUM CHLORIDE (SR) 10 MEQ TAB PO SCH ×2 (08:44→21:41)
[2019-02-24] MEDS: SPIRONOLACTONE 25 MG TAB PO SCH (08:45)
[2019-02-24] MEDS: ISOSORBIDE MONONITRATE(SR)60 MG TAB PO SCH (08:45)
--- NOTE | 2019-02-24 09:08 | PN ---
DATE: 02/24/2019 SUBJECTIVE: The patient is stable. The patient stated to me that he wished to be started on dialysi s; however, he is requesting possible peritoneal dialysis. I spoke with the patient, informing him t hat this may have to be done in outpatient setting . The patient states he will discuss this with [facility] primary clinical data research. No other events noted. OBJECTIVE: VITAL SIGNS: Blood pressure is 152/71, respirations 16, pulse 75, temperature 97.8. HEENT: Head is normocephalic. NECK: Supple. HEART: Regular rate. LUNGS: Show diminished breath sounds at the base. ABDOMEN: Soft, nontender to palpation without rebound or guarding. EXTREMITIES: Negative for clubbing, cyanosis. Positive edema, improving. DERMATOLOGIC: No rashes. MUSCULOSKELETAL: No joint effusion. NEUROLOGIC: No change in exam. MEDICATIONS: The patient's medications have been reviewed. LABORATORY DATA: Reviewed. IMAGING STUDIES: Reviewed. ASSESSMENT AND PLAN: 1. Nonoliguric acute kidney injury on top of chronic kidney disease stage IV. Etiology of acute [place] injury is secondary to hemodynamics, diuretic therapy. The patient remains in injury phase of ac [place] kidney injury. As stated above, I spoke with the patient about possible dialysis. The patient w ants peritoneal dialysis. This may have to be done in outpatient setting. The patient is refusing h emodialysis at this time. We will therefore continue current treatment plans, supportive care, renal ly dose all medications. Monitor renal function further and diuretic therapy, consider deescalating. 2. Volume overload, etiology is secondary to advanced chronic kidney disease, possible component of heart failure. The patient is on diuretic therapy. We will consider de-escalation if renal function further declines. 3. Anemia. Continue to monitor hemoglobin and hematocrit levels. Continue Epogen. 4. Mineral bone disorder. Continue phosphate binders, monitor calcium and phosphorus levels. 5. Atrial fibrillation. Continue medical management. 6. Pleural effusion, status post thoracentesis. 7. Diabetes. Continue current insulin regimen. 7. Sepsis. The patient is completing antibiotic course. 8. Morbid obesity. Dictated By: LUIS DICKINSON DO NR/NTS Conf#: [id number] DID#: [id number] CC: DAMON MO MD; ZENON CABRERA MD;*[facility]*
--- NOTE | 2019-02-24 11:11 | CONS ---
Assessment/Plan Assessment/Plan Hospital Course (Demo Recall) IMP: 1.CHF-diastolic acute on chronic by echo 12/16/18 revealing EF 60%-neg trop x 3 2.HTN-somewhat labile 3.chronic kidney disease-not yet on HD 4.H/O PAF on anticoagulation in SR at this time 5.anemia Recc: -Tele -Continue bumex and follow volume status closely -Also follow K closely on aldactone -Continue procardia/oral nittrates/hydralazine/coreg/cardura with reasonable BP control -Continue statin/zetia for now -Eliquis held in the setting of anemia -? need for HD Consultation Date/Type/Reason Admit Date/Time Feb 18, 2019 at 00:37 Initial Consult Date 02/18/19 Type of Consult Cardiology Reason for Consultation CHF Requesting Provider: DAMON MO Date/Time of Note DATE: 02/24/19 TIME: 11:09 Exam/Review of Systems Vital Signs Vitals Vital Signs Date Temp Pulse Resp B/P (MAP) Pulse Ox O2 O2 Flow FiO2 Time Delivery Rate 02/24/19 97.8 75 16 152/71 98 08:17 (98) 02/24/19 Nasal 2.0 07:30 Cannula Intake and Output 02/23/19 02/23/19 02/24/19 1515:00 23:00 07:00 IntakeIntake Total 50 ml 400 ml OutputOutput Total 300 ml 300 ml 650 ml BalanceBalance -250 ml 100 ml -650 ml Exam Exam Review of Systems: CONSTITUTIONAL: No fevers, chills. PULMONARY: mild sob CARDIOVASCULAR: No chest pain/palpitations GASTROINTESTINAL: No nausea/vomiting. GENITOURINARY: No hematuria/dysuria. MUSCULOSKELETAL: No myagias/arthalgias. PSYCHIATRIC: The patient denies depression. NEUROLOGIC: No weakness Constitutional: alert Psych: no complaints Head: normocephalic ENMT: mucosa pink and moist Neck: supple, jvd (9 cm water) Respiratory: diminished breath sounds (at bases/B) Cardiovascular: regular rate and rhythm Gastrointestinal: soft, non-tender Musculoskeletal: muscle tone (normal) Extremities: edema (trace/B) Neurological: other (No focal deficits) Labs Result Diagram: 02/24/19 0916 02/24/19 0916 Results 24hrs Laboratory Tests Test 02/23/19 11:46 02/23/19 12:21 02/23/19 13:55 02/23/19 17:11 Bedside Glucose 124 108 White Blood Count 5.7 Red Blood Count 2.75 L Hemoglobin 7.0 L Hematocrit 21.9 L Mean Corpuscular 79.6 L Volume Mean Corpuscular 25.5 L Hemoglobin Mean Corpuscular 32.0 Hemoglobin Concent Red Cell 14.9 H Distribution Width Platelet Count 150 Mean Platelet Volume 10.9 H Immature 0.200 Granulocytes % Neutrophils % 66.3 Lymphocytes % 11.5 L Monocytes % 12.2 H Eosinophils % 9.3 H Basophils % 0.5 Nucleated Red Blood 0.0 Cells % Immature 0.010 Granulocytes # Neutrophils # 3.8 Lymphocytes # 0.7 L Monocytes # 0.7 Eosinophils # 0.5 Basophils # 0.0 Nucleated Red Blood 0.0 Cells # Iron Level 35 Total Iron Binding 290 Capacity Percent Iron 12 L Saturation Ferritin 92.9 Urine Color YELLOW Urine Clarity CLEAR Urine pH 5.0 Urine Specific 1.010 [place] Urine Ketones NEGATIVE Urine Nitrite NEGATIVE Urine Bilirubin NEGATIVE Urine Urobilinogen NEGATIVE Urine Leukocyte NEGATIVE Esterase Urine Microscopic 1 RBC Urine Microscopic 1 WBC Urine Bacteria FEW A Urine Yeast FEW A (Budding) Urine Hemoglobin NEGATIVE Urine Random 112.92 Creatinine Urine Random Sodium 19 L Urine Glucose 1+ H Urine Total Protein 261.0 H Test 02/23/19 20:53 02/24/19 07:35 02/24/19 09:16 Bedside Glucose 155 141 White Blood Count 6.8 Red Blood Count 2.83 L Hemoglobin 7.1 L Hematocrit 22.7 L Mean Corpuscular 80.2 L Volume Mean Corpuscular 25.1 L Hemoglobin Mean Corpuscular 31.3 L Hemoglobin Concent Red Cell 14.8 H Distribution Width Platelet Count 154 Mean Platelet Volume 11.1 H Immature 0.600 H Granulocytes % Neutrophils % 72.1 Lymphocytes % 9.5 L Monocytes % 10.3 Eosinophils % 7.2 H Basophils % 0.3 Nucleated Red Blood 0.0 Cells % Immature 0.040 H Granulocytes # Neutrophils # 4.9 Lymphocytes # 0.6 L Monocytes # 0.7 Eosinophils # 0.5 Basophils # 0.0 Nucleated Red Blood 0.0 Cells # Sodium Level 138 Potassium Level 3.5 Chloride Level 98 Carbon Dioxide Level 27 Anion Gap 13 Blood Urea Nitrogen 98 H Creatinine 4.55 H Est Glomerular 14 L Filtrat Rate mL/min Glucose Level 194 Calcium Level 8.1 L Phosphorus Level 4.9 Magnesium Level 3.0 H Medications Medications Current Medications IV Flush (NS 3 ml) 3 ml PER PROTOCOL IV ; Start 02/18/19 at 01:30 Ondansetron HCl (Zofran Inj) 4 mg Q6H PRN IV NAUSEA/VOMITING; Start 02/18/19 at 01:30 Nitroglycerin (Nitroglycerin (Sl Tab) 0.4 Mg) 1 tab Q5M PRN SL .CHEST PAIN; Start 02/18/19 at 01:30 Acetaminophen (Tylenol Tab) 650 mg Q6H PRN PO .PAIN 1-3 OR TEMP; Start 02/18/19 at 01:30 Docusate Sodium (Colace) 100 mg Q12H PRN PO .CONSTIPATION; Start 02/18/19 at 01:30 Bisacodyl (Dulcolax) 5 mg DAILY PRN PO .CONSTIPATION Last administered on 02/19/19 13:46; Admin Dose 5 MG; Start 02/18/19 at 01:30 Insulin Aspart (Novolog Insulin Pen) NOVOLOG *MILD* ALGORITHM WITH MEALS BEDTIME SC Last administered on 02/24/19 07:50; Admin Dose 1 UNIT; Start at 08:00 Atorvastatin Calcium (Lipitor) 80 mg QHS PO Last administered on 02/23/19 20:56; Admin Dose 80 MG; Start 02/18/19 at 21:00 Carvedilol (Coreg) 6.25 mg BID PO Last administered on 02/24/19 08:45; Admin Dose 6.25 MG; Start 02/18/19 at 09:00 Doxazosin Mesylate (Cardura) 4 mg HS PO Last administered on 02/23/19 20:57; Admin Dose 4 MG; Start 02/18/19 at 21:00 EZETIMIBE (Zetia) 10 mg HS PO Last administered on 02/23/19 20:55; Admin Dose 10 MG; Start 02/18/19 at 21:00 Hydralazine HCl (Apresoline) 50 mg Q8H PRN PO SBP >170; Start 02/18/19 at 04:30 Hydralazine HCl (Apresoline) 100 mg TID PO Last administered on 02/24/19 08:44; Admin Dose 100 MG; Start 02/18/19 at 09:00 Isosorbide Mononitrate (Imdur) 60 mg DAILY PO Last administered on 02/24/19 08:45; Admin Dose 60 MG; Start 02/18/19 at 09:00 Potassium Chloride (Klor-Con 10) 10 meq BID PO Last administered on 02/24/19 08:44; Admin Dose 10 MEQ; Start 02/18/19 at 09:00 Sevelamer Carbonate (Renvela) 0.8 gm WITH MEALS PO Last administered on 02/24/19 07:39; Admin Dose 0.8 GM; Start 02/18/19 at 08:00 Spironolactone (Aldactone) 25 mg DAILY PO Last administered on 02/24/19 08:45; Admin Dose 25 MG; Start 02/18/19 at 09:00 Morphine Sulfate (morphine) 2 mg Q4H PRN IV SEVERE PAIN LEVEL 7-10 Last administered on 02/22/19 21:08; Admin Dose 2 MG; Start 02/18/19 at 05:30 Bumetanide (Bumex) 1 mg BID DIURETICS IV Last administered on 02/24/19 05:16; Admin Dose 1 MG; Start 02/18/19 at 06:00 Miscellaneous Information 1 ea NOTE XX ; Start 02/18/19 at 06:30 Glucose (Glutose) 15 gm Q15M PRN PO DECREASED GLUCOSE; Start 02/18/19 at 06:30 Glucose (Glutose) 22.5 gm Q15M PRN PO DECREASED GLUCOSE; Start 02/18/19 at 06:30 Dextrose (D50w Syringe) 25 ml Q15M PRN IV DECREASED GLUCOSE; Start 02/18/19 at 06:30 Dextrose (D50w Syringe) 50 ml Q15M PRN IV DECREASED GLUCOSE; Start 02/18/19 at 06:30 Glucagon (Glucagen) 1 mg Q15M PRN IM DECREASED GLUCOSE; Start 02/18/19 at 06:30 Glucose (Glutose) 15 gm Q15M PRN BUCCAL DECREASED GLUCOSE; Start 02/18/19 at 06:30 Nifedipine (Procardia Xl) 60 mg BID PO Last administered on 02/24/19 08:44; Admin Dose 60 MG; Start 02/18/19 at 21:00 Diphenhydramine HCl (Benadryl) 50 mg Q6H PRN PO ITCHING Last administered on 02/22/19 20:45; Admin Dose 50 MG; Start 02/19/19 at 00:00 Insulin Aspart (Novolog Insulin Pen) 10 unit WITH MEALS SC Last administered on 02/24/19 07:49; Admin Dose 10 UNIT; Start 02/20/19 at 12:00 Insulin Glargine (Lantus) 20 units QHS SC Last administered on 02/23/19 21:02; Admin Dose 20 UNITS; Start 02/20/19 at 21:00 Magnesium Hydroxide (Milk Of Mag) 30 ml BID PRN PO CONSTIPATION Last administered on 02/20/19 21:42; Admin Dose 30 ML; Start 02/20/19 at 11:30 Epoetin Randolph (Epogen (Esrd)) 40,000 units Fr@1700 SC Last administered on 02/21/19 16:28; Admin Dose 40,000 UNITS; Start 02/21/19 at 17:00 Ceftriaxone Sodium 50 ml @ 100 mls/hr Q24H IVPB Last administered on 02/23/19 13:45; Admin Dose 100 MLS/HR; Start 02/20/19 at 14:30 Albuterol/ Ipratropium (Duoneb) 3 ml Q4H RESP THERAPY PRN HHN SHORTNESS OF BREATH Last administered on 02/22/19 07:57; Admin Dose 3 ML; Start 02/21/19 at 22:00 VI ADAMES Feb 24, 2019 11:10
[2019-02-24 11:45] VITALS: BP 137/66; PULSE 71; RESP 17
--- NOTE | 2019-02-24 12:30 | PN ---
Date/Time of Note Date/Time of Note DATE: 02/24/19 TIME: 12:30 Objective Vitals Vital Signs Date Temp Pulse Resp B/P (MAP) Pulse Ox O2 O2 Flow FiO2 Time Delivery Rate 02/24/19 98.2 71 17 137/66 97 11:45 (89) 02/24/19 Nasal 2.0 07:30 Cannula Intake and Output 02/23/19 02/23/19 02/24/19 1515:00 23:00 07:00 IntakeIntake Total 50 ml 400 ml OutputOutput Total 300 ml 300 ml 650 ml BalanceBalance -250 ml 100 ml -650 ml Results Result Diagram: 02/24/1916 02/24/1916 Medications Medications Current Medications IV Flush (NS 3 ml) 3 ml PER PROTOCOL IV ; Start 02/18/19 at 01:30 Ondansetron HCl (Zofran Inj) 4 mg Q6H PRN IV NAUSEA/VOMITING; Start 02/18/19 at 01:30 Nitroglycerin (Nitroglycerin (Sl Tab) 0.4 Mg) 1 tab Q5M PRN SL .CHEST PAIN; Start 02/18/19 at 01:30 Acetaminophen (Tylenol Tab) 650 mg Q6H PRN PO .PAIN 1-3 OR TEMP; Start 02/18/19 at 01:30 Docusate Sodium (Colace) 100 mg Q12H PRN PO .CONSTIPATION; Start 02/18/19 at 01:30 Bisacodyl (Dulcolax) 5 mg DAILY PRN PO .CONSTIPATION Last administered on 02/19/19at 13:46; Admin Dose 5 MG; Start 02/18/19 at 01:30 Insulin Aspart (Novolog Insulin Pen) NOVOLOG *MILD* ALGORITHM WITH MEALS BEDTIME SC Last administered on 02/24/19at 07:50; Admin Dose 1 UNIT; Start 02/18/19 at 08:00 Atorvastatin Calcium (Lipitor) 80 mg QHS PO Last administered on 02/23/19at 20:56; Admin Dose 80 MG; Start 02/18/19 at 21:00 Carvedilol (Coreg) 6.25 mg BID PO Last administered on 02/24/19at 08:45; Admin Dose 6.25 MG; Start 02/18/19 at 09:00 Doxazosin Mesylate (Cardura) 4 mg HS PO Last administered on 02/23/19 20:57; Admin Dose 4 MG; Start 02/18/19 at 21:00 EZETIMIBE (Zetia) 10 mg HS PO Last administered on 02/23/19 20:55; Admin Dose 10 MG; Start 02/18/19 at 21:00 Hydralazine HCl (Apresoline) 50 mg Q8H PRN PO SBP >170; Start 02/18/19 at 04:30 Hydralazine HCl (Apresoline) 100 mg TID PO Last administered on 02/24/19 08:44; Admin Dose 100 MG; Start 02/18/19 at 09:00 Isosorbide Mononitrate (Imdur) 60 mg DAILY PO Last administered on 02/24/19 08:45; Admin Dose 60 MG; Start 02/18/19 at 09:00 Potassium Chloride (Klor-Con 10) 10 meq BID PO Last administered on 02/24/19 08:44; Admin Dose 10 MEQ; Start 02/18/19 at 09:00 Sevelamer Carbonate (Renvela) 0.8 gm WITH MEALS PO Last administered on 02/24/19 12:03; Admin Dose 0.8 GM; Start 02/18/19 at 08:00 Spironolactone (Aldactone) 25 mg DAILY PO Last administered on 02/24/19 08:45; Admin Dose 25 MG; Start 02/18/19 at 09:00 Morphine Sulfate (morphine) 2 mg Q4H PRN IV SEVERE PAIN LEVEL 7-10 Last administered on 02/22/19 21:08; Admin Dose 2 MG; Start 02/18/19 at 05:30 Bumetanide (Bumex) 1 mg BID DIURETICS IV Last administered on 02/24/19 05:16; Admin Dose 1 MG; Start 02/18/19 at 06:00 Miscellaneous Information 1 ea NOTE XX ; Start 02/18/19 at 06:30 Glucose (Glutose) 15 gm Q15M PRN PO DECREASED GLUCOSE; Start 02/18/19 at 06:30 Glucose (Glutose) 22.5 gm Q15M PRN PO DECREASED GLUCOSE; Start 02/18/19 at 06:30 Dextrose (D50w Syringe) 25 ml Q15M PRN IV DECREASED GLUCOSE; Start 02/18/19 at 06:30 Dextrose (D50w Syringe) 50 ml Q15M PRN IV DECREASED GLUCOSE; Start 02/18/19 at 06:30 Glucagon (Glucagen) 1 mg Q15M PRN IM DECREASED GLUCOSE; Start 02/18/19 at 06:30 Glucose (Glutose) 15 gm Q15M PRN BUCCAL DECREASED GLUCOSE; Start 02/18/19 at 06:30 Nifedipine (Procardia Xl) 60 mg BID PO Last administered on 02/24/19 08:44; Admin Dose 60 MG; Start 02/18/19 at 21:00 Diphenhydramine HCl (Benadryl) 50 mg Q6H PRN PO ITCHING Last administered on 02/22/19 20:45; Admin Dose 50 MG; Start 02/19/19 at 00:00 Insulin Aspart (Novolog Insulin Pen) 10 unit WITH MEALS SC Last administered on 02/24/19 12:07; Admin Dose 10 UNIT; Start 02/20/19 at 12:00 Insulin Glargine (Lantus) 20 units QHS SC Last administered on 02/23/19 21:02; Admin Dose 20 UNITS; Start 02/20/19 at 21:00 Magnesium Hydroxide (Milk Of Mag) 30 ml BID PRN PO CONSTIPATION Last administered on 02/20/19 21:42; Admin Dose 30 ML; Start 02/20/19 at 11:30 Epoetin [place] (Epogen (Esrd)) 40,000 units Fr@1700 SC Last administered on 16:28; Admin Dose 40,000 UNITS; Start 02/21/19 at 17:00 Ceftriaxone Sodium 50 ml @ 100 mls/hr Q24H IVPB Last administered on 02/23/19 13:45; Admin Dose 100 MLS/HR; Start 02/20/19 at 14:30 Albuterol/ Ipratropium (Duoneb) 3 ml Q4H RESP THERAPY PRN HHN SHORTNESS OF BREATH Last administered on 02/22/19 07:57; Admin Dose 3 ML; Start 02/21/19 at 22:00 VTE Prophylaxis Risk score (from Nsg)>0 risk: 2 SCD applied (from Ns): No SCD contraindication: other Lines/Catheters IV Catheter Type: Ritchie in Place: No Assessment/Plan Hospital Course Subjective Patient still has subjective shortness of breath otherwise doing well Objective Physical exam General: Patient is laying in bed and answers questions appropriately Mentation: Patient is alert and oriented 4, Head: Normocephalic atraumatic Eyes: EOMI, pupils reactive to light Neck: Supple, nontender, midline Respiratory: Mildly coarse to auscultation bilaterally Cardiovascular: regular rate, no obvious murmurs Gastrointestinal: non-tender to palpation, bowel sounds heard. Neurological: Moves all extremities spontaneously Skin: No new skin lesions Assessment/Plan 1. Acute on chronic diastolic heart failure - continue with current diuresis patient now willing to undergo hemodialysis as he found out that permacath can be removed and he can start peritoneal dialysis later - continue bumex for now - ECHO from November shows EF 60% - monitor I/O and daily weights 2. R pleural effusion s/p thoracentesis 02/21/19 - 1100 cc out - fluid cx negative to date - repeat CXR this am is negative for pleural effusions 3. Anemia of chronic disease - patient is followed by Dr. Crawford as outpatient. Receives epogen 40K every sunday - hgb low but given patient already volume overloaded, will defer transfusion to Nephrology recommendations 4. MARIA DEL CARMEN on CKD - per patient, he is supposed to start peritoneal dialysis in March, nephrology and patient now agreeing on starting hemodialysis for now and to transition to peritoneal dialysis in the outpatient setting - Nephrology consultation appreciated 5. Afib - currently rate controlled - will hold anticoagulation in setting of anemia, restart outpatient 6. Diabetes Mellitus - A1c noted - adjustments made to insulin and ISS given hypoglycemia episodes 7. Morbid obesity 8. Abdominal distension - CT scan showed diffuse edema and discussed with patient will improve after dialysis initiated - no ascites appreciated 9. Disposition -Patient now agreeable for dialysis, will initiate dialysis procedures with nephrology TREY MONTEJO Feb 24, 2019 12:30
[2019-02-24] MEDS: CEFTRIAXONE 1 GM/50 ML (PMX) 50 ML IVPB SCH (14:45)
--- NOTE | 2019-02-24 15:06 | CONS ---
Assessment/Plan Assessment/Plan Hospital Course (Demo Recall) No events, breathing comfortably on nc, no fevers Antimicrobials: IV Rocephin Microbiology: Blood cultures on admission 1 set grew Leuconostoc, repeat blood cultures negative Physical examination: This is well-developed obese middle-aged man who is alert in no distress. Head atraumatic normocephalic sclera nonicteric vehicle mucosa dry neck is supple chest rise symmetrical breath sounds diminished bases heart S1-S2 abdomen soft bowel sounds present extremities without cyanosis Assessment: 1. Bacteremia consistent with contaminant 2. +/-Pneumonia with bilateral effusions 3. Acute on chronic kidney disease 4. Obesity Plan: Stable, pl fluid cx neg, will dc abx and observe Consultation Date/Type/Reason Admit Date/Time Feb 18, 2019 at 00:37 Initial Consult Date Type of Consult id Requesting Provider: DAMON MO Date/Time of Note DATE: 02/24/19 TIME: 15:05 Exam/Review of Systems Exam Vitals Vital Signs Date Temp Pulse Resp B/P (MAP) Pulse Ox O2 O2 Flow FiO2 Time Delivery Rate 02/24/19 2.0 14:19 02/24/19 98.2 71 17 137/66 97 11:45 (89) 02/24/19 Nasal 07:30 Cannula Intake and Output 02/23/19 02/23/19 02/24/19 1515:00 23:00 07:00 IntakeIntake Total 50 ml 400 ml OutputOutput Total 300 ml 300 ml 650 ml BalanceBalance -250 ml 100 ml -650 ml Results Result Diagram: 02/24/19 0916 02/24/19 0916 Results 24hrs Laboratory Tests Test 02/23/19 17:11 02/23/19 20:53 02/24/19 07:35 02/24/19 09:16 Bedside Glucose 108 155 141 White Blood Count 6.8 Red Blood Count 2.83 L Hemoglobin 7.1 L Hematocrit 22.7 L Mean Corpuscular 80.2 L Volume Mean Corpuscular 25.1 L Hemoglobin Mean Corpuscular 31.3 L Hemoglobin Concent Red Cell Distribution 14.8 H Width Platelet Count 154 Mean Platelet Volume 11.1 H Immature Granulocytes 0.600 H % Neutrophils % 72.1 Lymphocytes % 9.5 L Monocytes % 10.3 Eosinophils % 7.2 H Basophils % 0.3 Nucleated Red Blood 0.0 Cells % Immature Granulocytes 0.040 H # Neutrophils # 4.9 Lymphocytes # 0.6 L Monocytes # 0.7 Eosinophils # 0.5 Basophils # 0.0 Nucleated Red Blood 0.0 Cells # Sodium Level 138 Potassium Level 3.5 Chloride Level 98 Carbon Dioxide Level 27 Anion Gap 13 Blood Urea Nitrogen 98 H Creatinine 4.55 H Est Glomerular Filtrat 14 L Rate mL/min Glucose Level 194 Calcium Level 8.1 L Phosphorus Level 4.9 Magnesium Level 3.0 H Test 02/24/19 12:01 Bedside Glucose 105 Medications Medication Current Medications IV Flush (NS 3 ml) 3 ml PER PROTOCOL IV ; Start 02/18/19 at 01:30 Ondansetron HCl (Zofran Inj) 4 mg Q6H PRN IV NAUSEA/VOMITING; Start 02/18/19 at 01:30 Nitroglycerin (Nitroglycerin (Sl Tab) 0.4 Mg) 1 tab Q5M PRN SL .CHEST PAIN; Start 02/18/19 at 01:30 Acetaminophen (Tylenol Tab) 650 mg Q6H PRN PO .PAIN 1-3 OR TEMP; Start 02/18/19 at 01:30 Docusate Sodium (Colace) 100 mg Q12H PRN PO .CONSTIPATION; Start 02/18/19 at 01:30 Bisacodyl (Dulcolax) 5 mg DAILY PRN PO .CONSTIPATION Last administered on 02/19/19at 13:46; Admin Dose 5 MG; Start 02/18/19 at 01:30 Insulin Aspart (Novolog Insulin Pen) NOVOLOG *MILD* ALGORITHM WITH MEALS BEDTIME SC Last administered on 02/24/19at 07:50; Admin Dose 1 UNIT; Start 02/18/19 at 08:00 Atorvastatin Calcium (Lipitor) 80 mg QHS PO Last administered on 02/23/19 20:56; Admin Dose 80 MG; Start 02/18/19 at 21:00 Carvedilol (Coreg) 6.25 mg BID PO Last administered on 02/24/19 08:45; Admin Dose 6.25 MG; Start 02/18/19 at 09:00 Doxazosin Mesylate (Cardura) 4 mg HS PO Last administered on 02/23/19 20:57; Admin Dose 4 MG; Start 02/18/19 at 21:00 EZETIMIBE (Zetia) 10 mg HS PO Last administered on 02/23/19 20:55; Admin Dose 10 MG; Start 02/18/19 at 21:00 Hydralazine HCl (Apresoline) 50 mg Q8H PRN PO SBP >170; Start 02/18/19 at 04:30 Hydralazine HCl (Apresoline) 100 mg TID PO Last administered on 02/24/19 13:09; Admin Dose 100 MG; Start 02/18/19 at 09:00 Isosorbide Mononitrate (Imdur) 60 mg DAILY PO Last administered on 02/24/19 08:45; Admin Dose 60 MG; Start 02/18/19 at 09:00 Potassium Chloride (Klor-Con 10) 10 meq BID PO Last administered on 02/24/19 08:44; Admin Dose 10 MEQ; Start 02/18/19 at 09:00 Sevelamer Carbonate (Renvela) 0.8 gm WITH MEALS PO Last administered on 02/24/19 12:03; Admin Dose 0.8 GM; Start 02/18/19 at 08:00 Spironolactone (Aldactone) 25 mg DAILY PO Last administered on 02/24/19 08:45; Admin Dose 25 MG; Start 02/18/19 at 09:00 Morphine Sulfate (morphine) 2 mg Q4H PRN IV SEVERE PAIN LEVEL 7-10 Last administered on 02/22/19at 21:08; Admin Dose 2 MG; Start 02/18/19 at 05:30 Bumetanide (Bumex) 1 mg BID DIURETICS IV Last administered on 02/24/19 05:16; Admin Dose 1 MG; Start 02/18/19 at 06:00 Miscellaneous Information 1 ea NOTE XX ; Start 02/18/19 at 06:30 Glucose (Glutose) 15 gm Q15M PRN PO DECREASED GLUCOSE; Start 02/18/19 at 06:30 Glucose (Glutose) 22.5 gm Q15M PRN PO DECREASED GLUCOSE; Start 02/18/19 at 06:30 Dextrose (D50w Syringe) 25 ml Q15M PRN IV DECREASED GLUCOSE; Start 02/18/19 at 06:30 Dextrose (D50w Syringe) 50 ml Q15M PRN IV DECREASED GLUCOSE; Start 02/18/19 at 06:30 Glucagon (Glucagen) 1 mg Q15M PRN IM DECREASED GLUCOSE; Start 02/18/19 at 06:30 Glucose (Glutose) 15 gm Q15M PRN BUCCAL DECREASED GLUCOSE; Start 02/18/19 at 06:30 Nifedipine (Procardia Xl) 60 mg BID PO Last administered on 02/24/19 08:44; Admin Dose 60 MG; Start 02/18/19 at 21:00 Diphenhydramine HCl (Benadryl) 50 mg Q6H PRN PO ITCHING Last administered on 02/22/19 20:45; Admin Dose 50 MG; Start 02/19/19 at 00:00 Insulin Aspart (Novolog Insulin Pen) 10 unit WITH MEALS SC Last administered on 02/24/19 12:07; Admin Dose 10 UNIT; Start 02/20/19 at 12:00 Insulin Glargine (Lantus) 20 units QHS SC Last administered on 02/23/19 21:02; Admin Dose 20 UNITS; Start 02/20/19 at 21:00 Magnesium Hydroxide (Milk Of Mag) 30 ml BID PRN PO CONSTIPATION Last administered on 02/20/19 21:42; Admin Dose 30 ML; Start 02/20/19 at 11:30 Epoetin [place] (Epogen (Esrd)) 40,000 units Fr@1700 SC Last administered on 02/21/19 16:28; Admin Dose 40,000 UNITS; Start 02/21/19 at 17:00 Ceftriaxone Sodium 50 ml @ 100 mls/hr Q24H IVPB Last administered on 02/24/19 14:45; Admin Dose 100 MLS/HR; Start 02/20/19 at 14:30 Albuterol/ Ipratropium (Duoneb) 3 ml Q4H RESP THERAPY PRN HHN SHORTNESS OF BREATH Last administered on 02/22/19 07:57; Admin Dose 3 ML; Start 02/21/19 at 22:00 YOLETTE RODRIGUEZ NP Feb 24, 2019 15:06
[2019-02-24 15:38] VITALS: BP 121/62; PULSE 71; RESP 18
[2019-02-24 19:16] VITALS: BP 145/78; PULSE 85; RESP 20
[2019-02-24] MEDS: EZETIMIBE 10 MG TAB PO SCH (21:41)
[2019-02-24] MEDS: ATORVASTATIN 80 MG TAB PO SCH (21:42)
[2019-02-24] MEDS: DOXAZOSIN 4 MG TAB PO SCH (21:42)
[2019-02-24] MEDS: INSULIN GLARGINE [LANTus] (100 UNITS/ML) SYG SC SCH (22:01)
[2019-02-24] MEDS: morphine 2 MG INJ IV PRN (23:04)
[2019-02-25 00:05] VITALS: BP 158/74; PULSE 74; RESP 18
[2019-02-25 04:08] VITALS: BP 148/72; PULSE 69; RESP 20
[2019-02-25] MEDS: BUMETANIDE 1 MG INJ IV SCH ×2 (06:17→17:47)
[2019-02-25 07:28] VITALS: BP 122/58; PULSE 67; RESP 18
[2019-02-25] MEDS: SEVELAMER CARBONATE 0.8 GM PKT PO SCH ×3 (07:55→17:46)
[2019-02-25] MEDS: INSULIN ASPART [NOVOLOG] 3 ML PEN SC SCH ×6 (07:56→17:32)
--- NOTE | 2019-02-25 08:47 | PN ---
DATE: 02/25/2019 SUBJECTIVE: The patient is stable. The patient has agreed for hemodialysis. The patient is pending Perm-A-Cath placement today. No other events noted. OBJECTIVE: VITAL SIGNS: Blood pressure is 122/58, pulse 67, respiration 18, temperature 98.2. HEENT: Head is normocephalic. NECK: Supple. HEART: Regular rate. LUNGS: Show diminished breath sounds at the base. ABDOMEN: Soft, nontender to palpation without rebound or guarding. EXTREMITIES: Negative for clubbing, cyanosis. Positive edema. DERMATOLOGIC: No rashes. MUSCULOSKELETAL: No joint effusion. NEUROLOGIC: No change in exam. MEDICATIONS: Have been reviewed. LABORATORY DATA: Has been reviewed. IMAGING STUDIES: Have been reviewed. ASSESSMENT AND PLAN: 1. Nonoliguric acute kidney injury on top of chronic kidney disease stage IV, now advanced toward en d-stage renal disease. Plan is for Perm-A-Cath placement. After catheter is placed, the patient [place] l be initiated on hemodialysis. Will dialyze daily for the next 3 days. We will arrange outpatient hemodialysis per case management. 2. Volume overload. Plan for ultrafiltration with hemodialysis. 3. Anemia. Continue to monitor hemoglobin and hematocrit levels. Continue Epogen. 4. Mineral bone disorder. Monitor calcium and phosphorus levels. 5. Atrial fibrillation. Continue medical management. 6. Pleural effusion, status post thoracentesis. 7. Diabetes. Continue current insulin regimen. 8. Sepsis. Patient is completing antibiotic course. 9. Morbid obesity. Dictated By: LUIS JOSHI/SUNDEEP Conf#: [id number] DID#: [id number] CC: DAMON MO MD;*EndCC*
--- NOTE | 2019-02-25 08:59 | CONS ---
Consult Date/Type/Reason Admit Date/Time Feb 18, 2019 at 00:37 Initial Consult Date Requesting Provider: DAMON MO Date/Time of Note DATE: 02/25/19 TIME: 08:56 Subjective NO acute events - improved edema, per pt - HD catheter planned today. Con't to monitor now. ROS: No fever, no chills, no nausea, no vomiting, no diarrhea/constipation No recent weight changes No chest pain, no PND, no orthopnea - improved SOB No dizziness, blurred vision No thirst, no heat or cold intolerance Objective Vitals Vital Signs Date Temp Pulse Resp B/P (MAP) Pulse Ox O2 O2 Flow FiO2 Time Delivery Rate 02/25/19 Nasal 3.0 08:16 Cannula 02/25/19 98.2 67 18 122/58 99 07:28 (79) Intake and Output 02/24/19 02/24/19 02/25/19 1515:00 23:00 07:00 IntakeIntake Total 700 ml 330 ml 1080 ml OutputOutput Total 200 ml 750 ml BalanceBalance 500 ml 330 ml 330 ml Exam General: WN/WD/NAD, AOx 3 HEENT: Unicetric/atraumatic/EOMI (follow commands) NECK: JVD elevated, no thyromegaly Lymph: no lymphadenopathy HEART: regular with no S3, II/ systolic murmur at apex, PMI L LUNGS: Coarse sounds ABD: soft, NT, ND, +BS : Intact Neuro: non focal SKIN: chronic changes EXT: trace edema Results/Medications Result Diagram: 02/25/1951702/25/1918 Results 24 hrs Laboratory Tests Test 02/24/19 09:16 02/24/19 12:01 02/24/19 17:13 02/24/19 21:37 White Blood Count 6.8 Red Blood Count 2.83 L Hemoglobin 7.1 L Hematocrit 22.7 L Mean Corpuscular Volume 80.2 L Mean Corpuscular 25.1 L Hemoglobin Mean Corpuscular 31.3 L Hemoglobin Concent Red Cell Distribution 14.8 H Width Platelet Count 154 Mean Platelet Volume 11.1 H Immature Granulocytes % 0.600 H Neutrophils % 72.1 Lymphocytes % 9.5 L Monocytes % 10.3 Eosinophils % 7.2 H Basophils % 0.3 Nucleated Red Blood 0.0 Cells % Immature Granulocytes # 0.040 H Neutrophils # 4.9 Lymphocytes # 0.6 L Monocytes # 0.7 Eosinophils # 0.5 Basophils # 0.0 Nucleated Red Blood 0.0 Cells # Sodium Level 138 Potassium Level 3.5 Chloride Level 98 Carbon Dioxide Level 27 Anion Gap 13 Blood Urea Nitrogen 98 H Creatinine 4.55 H Est Glomerular Filtrat 14 L Rate mL/min Glucose Level 194 Calcium Level 8.1 L Phosphorus Level 4.9 Magnesium Level 3.0 H Bedside Glucose 105 71 160 Test 02/25/19 05:18 White Blood Count 6.8 Red Blood Count 2.74 L Hemoglobin 6.9 *L Hematocrit 21.8 L Mean Corpuscular Volume 79.6 L Mean Corpuscular 25.2 L Hemoglobin Mean Corpuscular 31.7 L Hemoglobin Concent Red Cell Distribution 14.9 H Width Platelet Count 173 Mean Platelet Volume 11.3 H Immature Granulocytes % 0.400 Neutrophils % 67.8 Lymphocytes % 12.6 L Monocytes % 11.3 H Eosinophils % 7.5 H Basophils % 0.4 Nucleated Red Blood 0.0 Cells % Immature Granulocytes # 0.030 Neutrophils # 4.6 Lymphocytes # 0.9 Monocytes # 0.8 Eosinophils # 0.5 Basophils # 0.0 Nucleated Red Blood 0.0 Cells # Sodium Level 139 Potassium Level 3.6 Chloride Level 99 Carbon Dioxide Level 27 Anion Gap 13 Blood Urea Nitrogen 101 H Creatinine 4.65 H Est Glomerular Filtrat 14 L Rate mL/min Glucose Level 128 # Calcium Level 8.1 L Phosphorus Level 4.5 Magnesium Level 3.1 H Home Meds Active Scripts Isosorbide Mononitrate* (Isosorbide Mononitrate*) 60 Mg Tab.er.24h, 60 MG PO DAILY, #30 TAB 2 Refills Prov:TREY MONTEJO 12/19/18 Carvedilol* (Carvedilol*) 6.25 Mg Tablet, 6.25 MG PO BID for 30 Days, #60 TAB 2 Refills Prov:TREY MONETJO 12/19/18 Sevelamer Carbonate* (Renvela*) 800 Mg Tablet, 800 MG PO WITH MEALS, #60 TAB Prov:DAPHNE GALAN 09/26/18 Doxazosin Mesylate* (Cardura*) 4 Mg Tablet, 4 MG PO HS, #60 TAB Prov:DAPHNE GALAN 1/31/19 Nifedipine* (Nifedipine ER*) 60 Mg Tablet.sa, 60 MG PO BID, #60 TAB.SA Prov:BREANA MORALES NP 05/09/18 Bumetanide* (Bumetanide*) 2 Mg Tablet, 2 MG PO BID, #180 TAB Prov:LOLIS CROWDER MD 05/09/18 Reported Medications Hydralazine Hcl* (Hydralazine Hcl*) 100 Mg Tablet, 100 MG PO TID, #90 TAB 05/07/18 Potassium Chloride* (K-Dur*) 10 Meq Tab.prt.sr, 10 MEQ PO BID, TAB 05/06/18 Hydralazine Hcl* (Hydralazine Hcl*) 50 Mg Tab, 50 MG PO Q8 PRN for ELEVATED BLOOD PRESSURE, #90 TAB 05/06/18 Ezetimibe* (Zetia*) 10 Mg Tablet, 10 MG PO HS, TAB 05/06/18 Apixaban* (Eliquis*) 5 Mg Tablet, 5 MG PO BID, TAB 05/06/18 Spironolactone* (Aldactone*) 25 Mg Tablet, 25 MG PO DAILY, #30 TAB 04/16/18 Cholecalciferol* (Vitamin D3*) 1,000 Unit Tablet, 2000 UNIT PO DAILY, TAB 04/16/18 Insulin Lispro (Humalog Kwikpen U-100) 100 Unit/1 Ml Insuln.pen, 15 UNIT SQ WITH MEALS, EA 04/16/18 Insulin Glargine* (Lantus*) 100 Unit/Ml Soln, 30 UNIT SC QHS, #1 VIAL 02/28/18 Atorvastatin* (Atorvastatin*) 80 Mg Tablet, 80 MG PO QHS, #30 TAB 02/07/18 Medications Current Medications IV Flush (NS 3 ml) 3 ml PER PROTOCOL IV ; Start 02/18/19 at 01:30 Ondansetron HCl (Zofran Inj) 4 mg Q6H PRN IV NAUSEA/VOMITING; Start 02/18/19 at 01:30 Nitroglycerin (Nitroglycerin (Sl Tab) 0.4 Mg) 1 tab Q5M PRN SL .CHEST PAIN; Start 02/18/19 at 01:30 Acetaminophen (Tylenol Tab) 650 mg Q6H PRN PO .PAIN 1-3 OR TEMP; Start 02/18/19 at 01:30 Docusate Sodium (Colace) 100 mg Q12H PRN PO .CONSTIPATION; Start 02/18/19 at 01:30 Bisacodyl (Dulcolax) 5 mg DAILY PRN PO .CONSTIPATION Last administered on 02/19/19at 13:46; Admin Dose 5 MG; Start 02/18/19 at 01:30 Insulin Aspart (Novolog Insulin Pen) NOVOLOG *MILD* ALGORITHM WITH MEALS BEDTIME SC Last administered on 02/24/19 07:50; Admin Dose 1 UNIT; Start 02/18/19 at 08:00 Atorvastatin Calcium (Lipitor) 80 mg QHS PO Last administered on 02/24/19 21:42; Admin Dose 80 MG; Start 02/18/19 at 21:00 Carvedilol (Coreg) 6.25 mg BID PO Last administered on 02/24/19 21:42; Admin Dose 6.25 MG; Start 02/18/19 at 09:00 Doxazosin Mesylate (Cardura) 4 mg HS PO Last administered on 02/24/19 21:42; Admin Dose 4 MG; Start 02/18/19 at 21:00 EZETIMIBE (Zetia) 10 mg HS PO Last administered on 02/24/19 21:41; Admin Dose 10 MG; Start 02/18/19 at 21:00 Hydralazine HCl (Apresoline) 50 mg Q8H PRN PO SBP >170; Start 02/18/19 at 04:30 Hydralazine HCl (Apresoline) 100 mg TID PO Last administered on 02/24/19 21:43; Admin Dose 100 MG; Start 02/18/19 at 09:00 Isosorbide Mononitrate (Imdur) 60 mg DAILY PO Last administered on 02/24/19 08:45; Admin Dose 60 MG; Start 02/18/19 at 09:00 Potassium Chloride (Klor-Con 10) 10 meq BID PO Last administered on 02/24/19 21:41; Admin Dose 10 MEQ; Start 02/18/19 at 09:00 Sevelamer Carbonate (Renvela) 0.8 gm WITH MEALS PO Last administered on 02/24/19 at 17:15; Admin Dose 0.8 GM; Start 02/18/19 at 08:00 Spironolactone (Aldactone) 25 mg DAILY PO Last administered on 02/24/19 08:45; Admin Dose 25 MG; Start 02/18/19 at 09:00 Morphine Sulfate (morphine) 2 mg Q4H PRN IV SEVERE PAIN LEVEL 7-10 Last administered on 02/24/19at 23:04; Admin Dose 2 MG; Start 02/18/19 at 05:30 Bumetanide (Bumex) 1 mg BID DIURETICS IV Last administered on 02/25/19 06:17; Admin Dose 1 MG; Start 02/18/19 at 06:00 Miscellaneous Information 1 ea NOTE XX ; Start 02/18/19 at 06:30 Glucose (Glutose) 15 gm Q15M PRN PO DECREASED GLUCOSE; Start 02/18/19 at 06:30 Glucose (Glutose) 22.5 gm Q15M PRN PO DECREASED GLUCOSE; Start 02/18/19 at 06:30 Dextrose (D50w Syringe) 25 ml Q15M PRN IV DECREASED GLUCOSE; Start 02/18/19 at 06:30 Dextrose (D50w Syringe) 50 ml Q15M PRN IV DECREASED GLUCOSE; Start 02/18/19 at 06:30 Glucagon (Glucagen) 1 mg Q15M PRN IM DECREASED GLUCOSE; Start 02/18/19 at 06:30 Glucose (Glutose) 15 gm Q15M PRN BUCCAL DECREASED GLUCOSE; Start 02/18/19 at 06:30 Nifedipine (Procardia Xl) 60 mg BID PO Last administered on 02/24/19at 21:41; Admin Dose 60 MG; Start 02/18/19 at 21:00 Diphenhydramine HCl (Benadryl) 50 mg Q6H PRN PO ITCHING Last administered on 02/22/19at 20:45; Admin Dose 50 MG; Start 02/19/19 at 00:00 Insulin Aspart (Novolog Insulin Pen) 10 unit WITH MEALS SC Last administered on 02/24/19 12:07; Admin Dose 10 UNIT; Start 02/20/19 at 12:00 Insulin Glargine (Lantus) 20 units QHS SC Last administered on 02/24/19 22:01; Admin Dose 20 UNITS; Start 02/20/19 at 21:00 Magnesium Hydroxide (Milk Of Mag) 30 ml BID PRN PO CONSTIPATION Last a dministered on 6/27/19at 21:42; Admin Dose 30 ML; Start 02/20/19 at 11:30 Epoetin Randolph (Epogen (Esrd)) 40,000 units Fr@1700 SC Last administered on 02/21/19at 16:28; Admin Dose 40,000 UNITS; Start 02/21/19 at 17:00 Albuterol/ Ipratropium (Duoneb) 3 ml Q4H RESP THERAPY PRN HHN SHORTNESS OF BREATH Last administered on 02/22/19at 07:57; Admin Dose 3 ML; Start 02/21/19 at 22:00 Assessment/Plan Hospital Course (Demo Recall) 1.CHF-diastolic acute on chronic by echo 12/16/18 revealing EF 60%-neg trop x 3 - con't to remove volume as toletaed - defer HD Rx if needed to renal team, Con't to keep negative. Improved now. Con't to Rx - HD caher and Hd planned per renal team. 2.HTN - somewhat labile - con't to monitor now. Improved as fluid status improved. BP in good range. 3.chronic kidney disease-not yet on HD - renal follows. NOW HD palnned. 4.H/O PAF on anticoagulation in SR at this time - to be held in a setting of severe anemia - now at 6.9 - primary follows. Might magali blood tx with 1st HD. 5. Anemia - no blood tx now - no bleeding. 6. Pleural effusion - s/p thoracocentesis - pt feels better DELIA BILLY MD Feb 25, 2019 08:58
[2019-02-25] MEDS: SPIRONOLACTONE 25 MG TAB PO SCH (09:05)
[2019-02-25] MEDS: POTASSIUM CHLORIDE (SR) 10 MEQ TAB PO SCH (09:05)
[2019-02-25] MEDS: ISOSORBIDE MONONITRATE(SR)60 MG TAB PO SCH (09:06)
[2019-02-25] MEDS: NIFEdipine (XL) 30 MG TAB PO SCH (09:06)
[2019-02-25] MEDS: morphine 2 MG INJ IV PRN (09:10)
[2019-02-25 11:14] VITALS: BP 136/66; PULSE 69; RESP 18
[2019-02-25] MEDS ORDERED: SOD CHLORIDE 0.9% 250 ML IV* ONE (12:41)
--- NOTE | 2019-02-25 13:22 | PDOCDIS ---
Discharge Instructions CONDITION [id number] Patient Condition: Qanmg6w Stable FOLLOW UP/APPOINTMENTS Follow-up Plan 1. You must follow-up with your log deckman and assistant director of financial aid within 1 day. Please discuss with your log deckman the need of hemodialysis versus peritoneal dialysis next #2 please continue home medications 3. Please return to the ED if you have any shortness of breath immediately. TREY MONTEJO Feb 25, 2019 13:22
--- NOTE | 2019-02-25 13:28 | DS ---
Date/Time of Note Date/Time of Note DATE: 02/25/19 TIME: 13:27 Discharge Summary Admission/Discharge Info Admit Date/Time Feb 18, 2019 at 00:37 Discharge Date/Time Patient Condition: Stable Hospital Course Patient is a male with a past medical history significant for chronic kidney disease, diastolic heart failure, atrial fibrillation, diabetes mellitus, obesity, chronic anemia who presented to [facility] for shortness of breath and excessive lower extremity swelling. Patient was seen by nephrology, cardiology for his recurrent volume overload. Patient was diuresed appropriately and did feel better however patient was considered borderline to initiate hemodialysis. Hemodialysis was offered to the patient by multiple providers including myself and certified physical therapist assistant and initially patient had agreed however patient thought more about it and at this time patient states that he wants to follow-up with his outpatient certified physical therapist assistant as soon as tomorrow to discuss if he actually needs hemodialysis versus current medication regimen. Nephrology and cardiology are okay with patient being discharged to follow-up with their respective specialist. Cr is stable per certified physical therapist assistant. Patient currently does follow-up with the same cardiology group that saw patient in the hospital and patient told me that he has been off of Eliquis for his atrial fibrillation for approximately 8 months and his marketing services vice president, Dr. Sanon, is aware. Patient also states his primary care physician is also aware of him being off Eliquis for the past 8 months and is also okay with it. The risks of stroke were explained to the patient not take Eliquis while being diagnosed with atrial fibrillation however at this time I cannot recommend Eliquis due to his excessive anemia. I recommended to the patient to discuss Eliquis with his marketing services vice president and if he needs it for the risk of stroke due to his A. fib. Patient will continue his home medications and has been adequately diuresed and is walking well without oxygen supplementation. Patient will continue his home medications and will follow up with his primary care provider and certified physical therapist assistant within 1 to 2 days. Patient feels well and stable enough for discharge, patient will follow-up with pouncer as well for his anemia of chronic disease. Patient will be given 1 unit of packed red blood cells due to excessively low hemoglobin (no signs of GI bleed) and will be instructed to walk around the unit at least one time for any shortness of breath from possible volume overload due to his transfusion. Patient has a multiyear history of anemia chronic disease needing multiple transfusions in the past. Patient will be discharged. Discharge diagnosis Acute on chronic diastolic heart failure, resolving Right pleural effusion, resolved Anemia of chronic disease Acute kidney injury on chronic kidney disease, stable Atrial fibrillation, stable Diabetes mellitus Obesity Abdominal distention, resolved Lower extremity edema, resolved Home Meds Active Scripts Isosorbide Mononitrate* (Isosorbide Mononitrate*) 60 Mg Tab.er.24h, 60 MG PO DAILY, #30 TAB 2 Refills Prov:TREY MONTEJO 12/19/18 Carvedilol* (Carvedilol*) 6.25 Mg Tablet, 6.25 MG PO BID for 30 Days, #60 TAB 2 Refills Prov:TREY MONTEJO 12/19/18 Sevelamer Carbonate* (Renvela*) 800 Mg Tablet, 800 MG PO WITH MEALS, #60 TAB Prov:DAPHNE GALAN 09/26/18 Doxazosin Mesylate* (Cardura*) 4 Mg Tablet, 4 MG PO HS, #60 TAB Prov:DAPHNE GALAN 09/26/18 Nifedipine* (Nifedipine ER*) 60 Mg Tablet.sa, 60 MG PO BID, #60 TAB.SA Prov:BREANA MORALES NP 05/09/18 Bumetanide* (Bumetanide*) 2 Mg Tablet, 2 MG PO BID, #180 TAB Prov:LOLIS CROWDER MD 05/09/18 Reported Medications Hydralazine Hcl* (Hydralazine Hcl*) 100 Mg Tablet, 100 MG PO TID, #90 TAB 05/07/18 Potassium Chloride* (K-Dur*) 10 Meq Tab.prt.sr, 10 MEQ PO BID, TAB 05/06/18 Hydralazine Hcl* (Hydralazine Hcl*) 50 Mg Tab, 50 MG PO Q8 PRN for ELEVATED BLOOD PRESSURE, #90 TAB 05/06/18 Ezetimibe* (Zetia*) 10 Mg Tablet, 10 MG PO HS, TAB 05/06/18 Spironolactone* (Aldactone*) 25 Mg Tablet, 25 MG PO DAILY, #30 TAB 04/16/18 Cholecalciferol* (Vitamin D3*) 1,000 Unit Tablet, 2000 UNIT PO DAILY, TAB 04/16/18 Insulin Lispro (Humalog Kwikpen U-100) 100 Unit/1 Ml Insuln.pen, 15 UNIT SQ WITH MEALS, EA 04/16/18 Insulin Glargine* (Lantus*) 100 Unit/Ml Soln, 30 UNIT SC QHS, #1 VIAL 02/28/18 Atorvastatin* (Atorvastatin*) 80 Mg Tablet, 80 MG PO QHS, #30 TAB 02/07/18 Discontinued Reported Medications Apixaban* (Eliquis*) 5 Mg Tablet, 5 MG PO BID, TAB 05/06/18 Follow-up Plan 1. You must follow-up with your certified physical therapist assistant and marketing services vice president within 1 day. Please discuss with your certified physical therapist assistant the need of hemodialysis versus peritoneal dialysis next #2 please continue home medications 3. Please return to the ED if you have any shortness of breath immediately. Primary Care Provider [facility] Time spent on discharge: > 30 minutes Pending Labs Laboratory Tests Test 02/24/19 17:13 02/24/19 21:37 02/25/19 05:18 02/25/19 09:08 Bedside 71 160 132 Glucose mg/dL (70-220) mg/dL (70-220) mg/dL (70-220) White Blood 6.8 Count 10^3/ul (4.8-1 0.8) Red Blood 2.74 Count 10^6/ul (4.70- 6.10) Hemoglobin 6.9 g/dl (14.0-18. 0) Hematocrit 21.8 % (42.0-52.0) Mean 79.6 Corpuscular fl (82.0-101.0 Volume ) Mean 25.2 Corpuscular pg (29.0-33.0) Hemoglobin Mean 31.7 Corpuscular g/dl (32.0-37. Hemoglobin Conc 0) ent Red Cell 14.9 Distribution % (11.5-14.5) Width Platelet Count 173 10^3/UL (140-4 15) Mean Platelet 11.3 Volume fl (7.4-10.4) Immature 0.400 Granulocytes % % (0.001-0.429 ) Neutrophils % 67.8 % (39.0-77.0) Lymphocytes % 12.6 % (15.0-51.0) Monocytes % 11.3 % (0.0-11.0) Eosinophils % 7.5 % (0.0-7.0) Basophils % 0.4 % (0.0-2.0) Nucleated Red 0.0 Blood Cells % /100WBC (0.0-0 .0) Immature 0.030 Granulocytes # 10^3/ul (0.0-0 .031) Neutrophils # 4.6 10^3/ul (1.6-7 .5) Lymphocytes # 0.9 10^3/ul (0.8-2 .9) Monocytes # 0.8 10^3/ul (0.3-0 .9) Eosinophils # 0.5 10^3/ul (0.0-0 .5) Basophils # 0.0 10^3/ul (0.0-0 .1) Nucleated Red 0.0 Blood Cells # 10^3/ul (0.0-0 .0) Sodium Level 139 mmol/L (135-14 4) Potassium 3.6 Level mmol/L (3.5-5. 1) Chloride Level 99 mmol/L (97-110 ) Carbon Dioxide 27 Level mmol/L (21-31) Anion Gap 13 (5-13) Blood Urea 101 Nitrogen mg/dl (7-20) Creatinine 4.65 mg/dl (0.61-1. 24) Est Glomerular 14 Filtrat mL/min (>60) Rate mL/min Glucose Level 128 mg/dl (70-220) Calcium Level 8.1 mg/dl (8.4-10. 2) Phosphorus 4.5 Level mg/dl (2.5-4.9 ) Magnesium 3.1 Level mg/dl (1.7-2.5 ) Test 02/25/19 12:03 Bedside 127 Glucose mg/dL (70-220) TREY MONTEJO Feb 25, 2019 13:28
[2019-02-25 15:36] VITALS: BP 136/71; PULSE 70; RESP 19
--- NOTE | 2019-03-06 02:59 | ERD ---
ER Documentation Chief Complaint Chief Complaint shortness of breath/cp x 1 day. hx of chf HPI Is a 43-year-old male who with shortness breath chest pain for 1 day. Patient has history of CHF. Denies any fevers chills nausea vomiting. Pain is mild to moderate intensity. Also complains of severe shortness of breath especially with ambulation. Denies any current issues. ROS All systems reviewed and are negative except as per history of present illness. Medications Home Meds Active Scripts Isosorbide Mononitrate* (Isosorbide Mononitrate*) 60 Mg Tab.er.24h, 60 MG PO DAILY, #30 TAB 2 Refills Prov:TREY MONTEJO 12/19/18 Carvedilol* (Carvedilol*) 6.25 Mg Tablet, 6.25 MG PO BID for 30 Days, #60 TAB 2 Refills Prov:TREY MONTEJO 12/19/18 Sevelamer Carbonate* (Renvela*) 800 Mg Tablet, 800 MG PO WITH MEALS, #60 TAB Prov:DAPHNE GALAN 09/26/18 Doxazosin Mesylate* (Cardura*) 4 Mg Tablet, 4 MG PO HS, #60 TAB Prov:DAPHNE GALAN 09/26/18 Nifedipine* (Nifedipine ER*) 60 Mg Tablet.sa, 60 MG PO BID, #60 TAB.SA Prov:BREANA MORALES NP 05/09/18 Bumetanide* (Bumetanide*) 2 Mg Tablet, 2 MG PO BID, #180 TAB Prov:LOLIS CROWDER MD 05/09/18 Reported Medications Hydralazine Hcl* (Hydralazine Hcl*) 100 Mg Tablet, 100 MG PO TID, #90 TAB 05/07/18 Potassium Chloride* (K-Dur*) 10 Meq Tab.prt.sr, 10 MEQ PO BID, TAB 05/06/18 Hydralazine Hcl* (Hydralazine Hcl*) 50 Mg Tab, 50 MG PO Q8 PRN for ELEVATED BLOOD PRESSURE, #90 TAB 05/06/18 Ezetimibe* (Zetia*) 10 Mg Tablet, 10 MG PO HS, TAB 05/06/18 Spironolactone* (Aldactone*) 25 Mg Tablet, 25 MG PO DAILY, #30 TAB 04/16/18 Cholecalciferol* (Vitamin D3*) 1,000 Unit Tablet, 2000 UNIT PO DAILY, TAB 04/16/18 Insulin Lispro (Humalog Kwikpen U-100) 100 Unit/1 Ml Insuln.pen, 15 UNIT SQ WITH MEALS, EA 04/16/18 Insulin Glargine* (Lantus*) 100 Unit/Ml Soln, 30 UNIT SC QHS, #1 VIAL 02/28/18 Atorvastatin* (Atorvastatin*) 80 Mg Tablet, 80 MG PO QHS, #30 TAB 02/07/18 Allergies Allergies: Coded Allergies: ibuprofen (Unverified Allergy, Mild, 02/18/19) Uncoded Allergies: seafood (Allergy, Severe, red rashes whole body, 12/16/18) PMhx/Soc Medical and Surgical Hx: pt denies Surgical Hx History of Surgery: Yes Anesthesia Reaction: No Hx Neurological Disorder: No Hx Respiratory Disorders: Yes Hx Cardiac Disorders: Yes (hypertension, chf) Hx Psychiatric Problems: No Hx Miscellaneous Medical Probl: No Hx Alcohol Use: No Hx Substance Use: Yes (cocaine) Hx Tobacco Use: No Smoking Status: Current some day smoker Physical Exam Physical Exam Const: No acute distress Head: Atraumatic Eyes: Normal Conjunctiva ENT: Normal External Ears, Nose and Mouth. Neck: Full range of motion. No meningismus. Resp: Clear to auscultation bilaterally Cardio: Regular rate and rhythm, no murmurs Abd: Soft, non tender, non distended. Normal bowel sounds Skin: No petechiae or rashes Back: No midline or flank tenderness Ext: No cyanosis, or edema Neur: Awake and alert Psych: Normal Mood and Affect Results 24 hrs Laboratory Tests Test 02/17/19 22:50 02/17/19 22:53 White Blood Count 8.0 10^3/ul Red Blood Count 2.99 10^6/ul Hemoglobin 7.8 g/dl Hematocrit 24.9 % Mean Corpuscular Volume 83.3 fl Mean Corpuscular Hemoglobin 26.1 pg Mean Corpuscular Hemoglobin Concent 31.3 g/dl Red Cell Distribution Width 15.1 % Platelet Count 192 10^3/UL Mean Platelet Volume 10.9 fl Immature Granulocytes % 0.800 % Neutrophils % 70.7 % Lymphocytes % 14.2 % Monocytes % 7.8 % Eosinophils % 6.1 % Basophils % 0.4 % Nucleated Red Blood Cells % 0.0 /100WBC Immature Granulocytes # 0.060 10^3/ul Neutrophils # 5.7 10^3/ul Lymphocytes # 1.1 10^3/ul Monocytes # 0.6 10^3/ul Eosinophils # 0.5 10^3/ul Basophils # 0.0 10^3/ul Nucleated Red Blood Cells # 0.0 10^3/ul Sodium Level 146 mmol/L Potassium Level 3.8 mmol/L Chloride Level 106 mmol/L Carbon Dioxide Level 26 mmol/L Anion Gap 14 Blood Urea Nitrogen 66 mg/dl Creatinine 3.91 mg/dl Est Glomerular Filtrat Rate mL/min 17 mL/min Glucose Level 179 mg/dl Calcium Level 8.7 mg/dl Total Bilirubin 0.4 mg/dl Direct Bilirubin 0.00 mg/dl Indirect Bilirubin 0.4 mg/dl Aspartate Amino Transf (AST/SGOT) 24 IU/L Alanine Aminotransferase (ALT/SGPT) 33 IU/L Alkaline Phosphatase 102 IU/L Troponin I < 0.012 ng/ml B-Type Natriuretic Peptide 3150 PG/ML Total Protein 6.8 g/dl Albumin 4.0 g/dl Globulin 2.80 g/dl Albumin/Globulin Ratio 1.42 Bedside Glucose 178 mg/dL Procedures/MDM EKG: Rate/Rhythm: [Normal Sinus Rhythm] QRS, ST, T-waves: [No changes consistent w/ acute ischemia] Impression: [No evidence of ischemia or arrhythmia] Chest X-ray 1V Interpreted by me: Soft Tissue: No acute abnormalities Bones: No acute abnormalities Mediastinum/Cardiac Silhouette/Lungs: Increased interstitial fluid markings. Impression: CHF Patient's heart failure symptoms is concerning for acute decompensation and will require inpatient workup and monitoring. Further w/u for ischemia, arrhythmia, PE or dissection will be deferred to the inpatient team. Accepting Care Team: Current data and ongoing care discussed. Time: Time of admission Primary Provider: Dr. Florence Consulting: Deferred to inpatient team Outstanding Data: none Departure Diagnosis: Primary Impression: History of alcohol abuse Additional Impressions: Shortness of breath Grade II diastolic dysfunction Condition: Serious Patient Instructions: Peritoneal Dialysis (PD), Dialysis Access, Chronic Renal Failure, Diet, Renal GLORIA GUADARRAMA Mar 06, 2019 02:59
== END 2019-02-25 19:14 | disposition home or self-care (01) | DRG 291 ==
LOC: E/R 22:07 → 6WM 02-18 00:37
PROVIDERS: ADMIT Family Medicine; ATTEND Internal Medicine
PROC: 0W993ZZ Drainage of Right Pleural Cavity, Percutaneous Approach (ICD-10-PCS; 2019-02-21)
PROC: 30233N1 Transfusion of Nonautologous Red Blood Cells into Peripheral Vein, Percutaneous Approach (ICD-10-PCS; principal; 2019-02-25)
DX: I13.2 Hypertensive heart and chronic kidney disease with heart failure and with stage 5 chronic kidney disease, or end stage renal disease (principal); I50.33 Acute on chronic diastolic (congestive) heart failure; J18.9 Pneumonia, unspecified organism; N18.5 Chronic kidney disease, stage 5; Z68.41 Body mass index [BMI] 40.0-44.9, adult; N17.9 Acute kidney failure, unspecified; R78.81 Bacteremia; E11.22 Type 2 diabetes mellitus with diabetic chronic kidney disease; E66.01 Morbid (severe) obesity due to excess calories; D63.1 Anemia in chronic kidney disease; Z79.02 Long term (current) use of antithrombotics/antiplatelets; R14.0 Abdominal distension (gaseous); Z72.0 Tobacco use; R59.1 Generalized enlarged lymph nodes; B96.89 Other specified bacterial agents as the cause of diseases classified elsewhere
CPT/HCPCS: 32555; 36430; 71045; 74176; 80048; 80053; 80061; 81001; 81003; 82043; 82306; 82550; 82553; 82652; 82728; 82945; 82962; 83036; 83540; 83615; 83735; 83880; 83970; 84100; 84155; 84157; 84300; 84443; 84484; 85014; 85018; 85025; 85610; 85730; 86850; 86900; 86901; 86920; 87070; 87102; 87116; 89051; 93005; 94640; 94664; 97162; J0696; J1644; J1815; J1940; J2270; J2405; J3370; J7040; P9016; Q4081; Q5105; Q5106

== ENCOUNTER 2019-04-22 16:31 | Emergency (ER) | payer OTHER ==
[~2019-04-22] VITALS: Ht 170.2 cm; Wt 114.1 kg
[~2019-04-22 16:31] MED LIST changes: -APIX5TAB PO; +BEN50 PO; +CETI10CA PO; +CETI5SOL PO
[2019-04-22 17:06] VITALS: BP 131/63; PULSE 73; RESP 18; Ht 170.2 cm; Wt 114.1 kg
== END 2019-04-22 18:45 | disposition home or self-care (01) ==
LOC: E/R 16:31
DX: Z53.21 Procedure and treatment not carried out due to patient leaving prior to being seen by health care provider (principal)
CPT/HCPCS: 80053; 83735; 84100; 85025; Z7502; 99283